=== PATIENT | male | born 1975 | race Caucasian/White ===

== ENCOUNTER 2017-08-11 06:14 | Emergency (ER) | payer SELFPAY ==
[2017-08-11] MEDS ORDERED: NA CHLORIDE 0.9% 1,000 ML ONE (06:54)
[2017-08-11 07:03] LABS: Absolute Lymphocytes (CBC) 2.1 K/uL (0.7-4.9); Absolute Monocytes 0.6 K/uL (0.1-1.3); Absolute Neutrophil 7.7 K/uL (1.8-8.0); Basophils % 1.1 % (0-1.3); Eosinophils % 4.4 % (0-4.4); Lymphocytes % 19.2 % (15.3-44.8); MCH 30.1 pg (27.0-35.0); MCV 91.8 fL (80-100); MPV 9.1 fL (7.6-11.3); Monocytes % 5.7 % (3.3-12.3)
[2017-08-11 07:06] LABS: Bicarbonate 28 mEq/L (21-31); Glucose Level 255 mg/dL (65-120); Lipase 20 U/L (22-51); Potassium 3.2 mEq/L (3.6-5.0); Sodium Level 134 mEq/L (135-145)
[2017-08-11 07:12] LABS: ALT/SGPT 20 IU/L (10-60); AST/SGOT 25 IU/L (10-42); Albumin 3.6 g/dL (3.2-5.5); Alkaline Phosphatase 79 IU/L (42-121); BUN Blood Urea Nitrogen 6 mg/dL (6-20); Bilirubin Direct 0.1 mg/dL (0-0.2); Bilirubin Total 0.4 mg/dL (0.3-1.2); Creatine Phosphokinase 97 IU/L (22-269); Glomerular Filtration Rate 75 mL/min (=/>90); Protein, Total 6.8 g/dL (6.0-8.3)
[2017-08-11 07:13] LABS: Alcohol Serum/Plasma < 10 mg/dl
--- NOTE | 2017-08-11 08:11 | RAD REPORT ---
EXAM DESCRIPTION: CT - Head Brain Wo Cont - 08/11/2017 6:52 am CLINICAL HISTORY: Altered consciousness, seizure. COMPARISON: 05/06/2017 TECHNIQUE: All CT scans are performed using dose optimization technique as appropriate and may inclu de automated exposure control or mA/KV adjustment according to patient size. FINDINGS: No intracranial hemorrhage, hydrocephalus or extra-axial fluid collection.No areas of brai n edema or evidence of midline shift. Opacification right maxillary antrum is seen. The paranasal sinuses and mastoids are otherwise clear. The calvarium is intact. IMPRESSION: No acute intracranial abnormality. Chronic right maxillary sinusitis suspected.
[2017-08-11 08:31] LABS: Protime INR 1.08
--- NOTE | 2017-08-11 08:39 | EDPHYS ---
Physician Documentation [facility] Name: Surjit Stubbs Age: 42 yrs Sex: Male : 1975 Arrival Date: 08/11/2017 Time: 06:16 Bed 3 Private MD: ED Physician Jame Vaughan HPI: 08/11 07:25 This 42 yrs old Male presents to ER via EMS with complaints of Low Blood zarina Sugar, Altered Mental Status. 07:25 The patient or guardian reports hypoglycemia. Onset: The symptoms/episode zarina began/occurred just prior to arrival. Associated signs and symptoms: Pertinent positives: None. Current symptoms: In the emergency department the patient's symptoms are unchanged from the initial presentation. The patient has not experienced similar symptoms in the past. Historical: - Allergies: 06:28 No Known Allergies; tl2 - Home Meds: 06:28 [place] Thyroid 60 mg Oral tab [Active]; gemfibrozil 600 mg Oral tab 1 tab 2 times per tl2 day [Active]; Glucagon Emergency Kit (human) 1 mg IM kit 1 mL [Active]; Multiple Vitamins Oral tab [Active]; Novolog Sub-Q [Active]; - PMHx: 06:28 Diabetes - NIDDM; Hypothyroidism; tl2 - Immunization history:: Adult Immunizations up to date. - Social history:: Smoking status: Patient uses tobacco products, smokes one pack cigarettes per day. ROS: 07:26 Constitutional: Negative for fever, chills, and weight loss, Eyes: Negative for injury, zarina pain, redness, and discharge, ENT: Negative for injury, pain, and discharge, Neck: Negative for injury, pain, and swelling, Cardiovascular: Negative for chest pain, palpitations, and edema, Respiratory: Negative for shortness of breath, cough, wheezing, and pleuritic chest pain, Abdomen/GI: Negative for abdominal pain, nausea, vomiting, diarrhea, and constipation, Back: Negative for injury and pain, : Negative for injury, bleeding, discharge, and swelling, MS/Extremity: Negative for injury and deformity, Skin: Negative for injury, rash, and discoloration, Psych: Negative for depression, anxiety, suicide ideation, homicidal ideation, and hallucinations, Allergy/Immunology: Negative for hives, rash, and allergies, Endocrine: Negative for neck swelling, polydipsia, polyuria, polyphagia, and marked weight changes, Hematologic/Lymphatic: Negative for swollen nodes, abnormal bleeding, and unusual bruising. 07:26 Neuro: Positive for altered mental status, weakness. Exam: 07:26 Constitutional: This is a well developed, well nourished patient who is awake, alert, zarina and in no acute distress. Head/Face: Normocephalic, atraumatic. Eyes: Pupils equal round and reactive to light, extra-ocular motions intact. Lids and lashes normal. Conjunctiva and sclera are non-icteric and not injected. Cornea within normal limits. Periorbital areas with no swelling, redness, or edema. ENT: Nares patent. No nasal discharge, no septal abnormalities noted. Tympanic membranes are normal and external auditory canals are clear. Oropharynx with no redness, swelling, or masses, exudates, or evidence of obstruction, uvula midline. Mucous membranes moist. Neck: Trachea midline, no thyromegaly or masses palpated, and no cervical lymphadenopathy. Supple, full range of motion without nuchal rigidity, or vertebral point tenderness. No Meningismus. Chest/axilla: Normal chest wall appearance and motion. Nontender with no deformity. No lesions are appreciated. Cardiovascular: Regular rate and rhythm with a normal S1 and S2. No gallops, murmurs, or rubs. Normal PMI, no JVD. No pulse deficits. Respiratory: Lungs have equal breath sounds bilaterally, clear to auscultation and percussion. No rales, rhonchi or wheezes noted. No increased work of breathing, no retractions or nasal flaring. Abdomen/GI: Soft, non-tender, with normal bowel sounds. No distension or tympany. No guarding or rebound. No evidence of tenderness throughout. Back: No spinal tenderness. No costovertebral tenderness. Full range of motion. Male : Normal genitalia with no discharge or lesions. Skin: Warm, dry with normal turgor. Normal color with no rashes, no lesions, and no evidence of cellulitis. MS/ Extremity: Pulses equal, no cyanosis. Neurovascular intact. Full, normal range of motion. Psych: Awake, alert, with orientation to person, place and time. Behavior, mood, and affect are within normal limits. 07:26 Neuro: Orientation: to person, place, situation, Not oriented to time. Vital Signs: 06:28 BP 136 / 96; Pulse 102; Resp 18; Temp 98.2(O); Pulse Ox 97% on R/A; Weight 63.5 kg; tl2 Height 5 ft. 9 in. (175.26 cm); Pain 0/10; 07:15 BP 128 / 96; Pulse 101; Resp 20; Pulse Ox 99% on R/A; ph 08:18 BP 133 / 94; Pulse 98; Resp 18; Pulse Ox 98% on R/A; ph 09:24 BP 132 / 91; Pulse 91; Resp 18; Temp 98.2; Pulse Ox 99% on R/A; ph 06:28 Body Mass Index 20.67 (63.50 kg, 175.26 cm) tl2 MDM: 06:34 Patient medically screened. 07:25 Patient medically screened. [facility] 07:27 Data reviewed: vital signs, nurses notes, lab test result(s), EKG, radiologic studies, [facility] CT scan, plain films. 04 06:29 Order name: Basic Metabolic Panel; Complete Time: 07:29 08/11 06:29 Order name: BNP 04 06:29 Order name: CBC with Diff; Complete Time: 07:29 08/11 06:29 Order name: CPK; Complete Time: 07:29 08/11 06:29 Order name: Lactate; Complete Time: 07:29 04 06:29 Order name: LFT's; Complete Time: 07:29 08/11 06:29 Order name: Lipase; Complete Time: 07:29 08/11 06:29 Order name: Procalcitonin; Complete Time: 08:38 08/11 06:29 Order name: Protime (+inr); Complete Time: 08:38 08/11 06:29 Order name: Sed Rate; Complete Time: 07:29 04 06:29 Order name: Troponin (emerg Dept Use Only); Complete Time: 07:29 08/11 06:29 Order name: AMMONIA; Complete Time: 07:29 04 06:29 Order name: Urine Drug Screen; Complete Time: 15:28 04 06:29 Order name: Chest Single View XRAY; Complete Time: 15:28 04 06:29 Order name: Accucheck; Complete Time: 06:33 08/11 06:29 Order name: Cardiac monitoring; Complete Time: 06:33 gs 04 06:29 Order name: EKG - Nurse/Tech; Complete Time: 07:05 gs 08/11 06:29 Order name: IV Saline Lock - Large Bore; Complete Time: 06:33 gs 04 06:29 Order name: Labs collected and sent; Complete Time: 06:33 gs 08/11 06:29 Order name: O2 Per Protocol; Complete Time: 06:33 gs 08/11 06:29 Order name: CT Head Brain wo Cont; Complete Time: 08:38 gs 08/11 06:29 Order name: Ethanol; Complete Time: 07:29 gs 08/11 06:30 Order name: BNP B-Type Natriuretic Peptide; Complete Time: 08:38 EDMS 08/11 07:24 Order name: Diet Regular; Complete Time: 07:25 ph 08/11 07:41 Order name: EKG Electrocardiogram; Complete Time: 09:27 EDMS 06 10:03 Order name: Urine Dipstick--Ancillary (enter results); Complete Time: 15:28 ag 0406 06:29 Order name: O2 Sat Monitoring; Complete Time: 06:34 gs 04 06:29 Order name: Urine Dipstick-Ancillary (obtain specimen); Complete Time: 09:26 gs Administered Medications: 06:57 Drug: NS 0.9% 1000 ml Route: IV; Rate: 1 bolus; Site: left antecubital; tl2 09:26 Follow up: Response: No adverse reaction; IV Status: Completed infusion ph 08:30 Drug: Potassium Chloride 40 mEq Route: PO; ph 09:26 Follow up: Response: No adverse reaction ph Point of Care Testing: Blood Glucose: 06:28 Blood Glucose: 245 mg/dL; tl2 08:41 Blood Glucose: 151 mg/dL; ph Ranges: Critical Glucose Levels:Adult <50 mg/dl or >400 mg/dl <40 mg/dl or >180 mg/dl Disposition: 08/11/17 08:38 Discharged to Home. Impression: Hypoglycemia, unspecified, Type 1 diabetes mellitus, Hypokalemia, Acute sinusitis. - Condition is Stable. - Discharge Instructions: Type 1 Diabetes Mellitus, Adult, Potassium Content of Foods, Hypoglycemia, Diabetes Mellitus and Food, Hypoglycemia, [id number], Hypokalemia. - Medication Reconciliation Form, Thank You Letter, Antibiotic Education, Prescription Opioid Use form. - Follow up: Private Physician; When: 2 - 3 days; Reason: Recheck today's complaints, Continuance of care, Re-evaluation by your physician. - Problem is new. - Symptoms have improved. Signatures: Dispatcher [employer] EDJame Patel MD MD cha Hall, Patricia, RN RN Malissa Bates RN RN Shari Spencer RN RN tl2 Ashutosh Aj MD MD
--- NOTE | 2017-08-11 08:39 | ER ---
Nurse's Notes [facility] Name: Surjit Stubbs Age: 42 yrs Sex: Male : 1975 Arrival Date: 08/11/2017 Time: 06:16 Bed 3 Private MD: Diagnosis: Hypoglycemia, unspecified;Type 1 diabetes mellitus;Hypokalemia;Acute sinusitis Presentation: 08/11 06:19 Presenting complaint: EMS states: Pt was found face down, unresponsive, with emesis on tl2 floor and in pt's mouth. Possible aspiration. BGL on arrival was 36, D10 was given and pt began to wake up and become combative. 15 second seizure like episode witnessed when pt began to wake up. 650 mL of D10 total given, BGL increased to 436. Pt was more cooperative upon arrival to ED. AOx3 but could not recall what happened. Pt was last seen normal at 2300 last night when he had taken 16 units of levemir. Transition of care: patient was not received from another setting of care. Onset of symptoms was August 10, 2017 at 23:00. 06:19 Method Of Arrival: EMS: [facility] tl2 06:19 Acuity: TOI 2 tl2 06:19 Care prior to arrival: Medication(s) given: D10 650 mL. tl2 Triage Assessment: 06:28 General: Appears in no apparent distress. uncomfortable, unkempt, Behavior is drowsy. tl2 Pain: Denies pain. Neuro: Level of Consciousness is awake, confused, Oriented to person, place, time, Speech is normal, Seizure activity reported prior to arrival. Type of seizure: tonic-clonic seizure. Cardiovascular: Denies chest pain, Rhythm is sinus rhythm. Respiratory: Airway is patent Respiratory effort is even, unlabored, Respiratory pattern is regular, symmetrical, Breath sounds are clear bilaterally. GI: Reports vomiting. : No signs and/or symptoms were reported regarding the genitourinary system. Derm: Skin is pink, warm \\T\\ dry. Historical: - Allergies: 06:28 No Known Allergies; tl2 - Home Meds: 06:28 [place] Thyroid 60 mg Oral tab [Active]; gemfibrozil 600 mg Oral tab 1 tab 2 times per tl2 day [Active]; Glucagon Emergency Kit (human) 1 mg IM kit 1 mL [Active]; Multiple Vitamins Oral tab [Active]; Novolog Sub-Q [Active]; - PMHx: 06:28 Diabetes - NIDDM; Hypothyroidism; tl2 - Immunization history:: Adult Immunizations up to date. - Social history:: Smoking status: Patient uses tobacco products, smokes one pack cigarettes per day. Screenin:32 Abuse screen: Denies threats or abuse. Nutritional screening: No deficits noted. tl2 Tuberculosis screening: No symptoms or risk factors identified. Fall Risk Fall in past 12 months (25 points). Secondary diagnosis (15 points) IV access (20 points). Assessment: 06:10 General: Appears uncomfortable, Behavior is cooperative, appropriate for age, anxious. jd3 Pain: Denies pain. Neuro: Level of Consciousness is awake, alert, obeys commands, Oriented to person, place. Cardiovascular: Heart tones S1 S2 present Capillary refill < 3 seconds Patient's skin is warm and dry. Respiratory: Airway is patent Respiratory effort is even, unlabored, Respiratory pattern is regular, symmetrical, Breath sounds are clear bilaterally. GI: Abdomen is round Bowel sounds present X 4 quads. Abd is soft and non tender X 4 quads. Reports nausea. : No signs and/or symptoms were reported regarding the genitourinary system. EENT: No signs and/or symptoms were reported regarding the EENT system. Derm: Skin is intact, Skin is diaphoretic, Skin is normal, Skin temperature is. Musculoskeletal: Circulation, motion, and sensation intact. Range of motion: intact in all extremities. 07:15 Reassessment: Patient appears in no apparent distress at this time. Patient and/or ph family updated on plan of care and expected duration. Pain level reassessed. Pt asleep, respirations even and unlabored, awakens easily, VSS, will continue to monitor. 08:16 Reassessment: Patient appears in no apparent distress at this time. Patient and/or ph family updated on plan of care and expected duration. Pain level reassessed. Patient is alert, oriented x 3, equal unlabored respirations, skin warm/dry/pink. Pt resting quietly at this time, denies pain, nausea, or SOB, states, " I just feel really sleepy. I remember that I was brought in because my sugar was really low." Awaiting breakfast tray from cafeteria, VSS, will continue to monitor. 09:15 Reassessment: Patient appears in no apparent distress at this time. No changes from ph previously documented assessment. Patient and/or family updated on plan of care and expected duration. Pain level reassessed. Patient is alert, oriented x 3, equal unlabored respirations, skin warm/dry/pink. Spoke with pt's father who is en route to pick pt up after discharge. Vital Signs: 06:28 BP 136 / 96; Pulse 102; Resp 18; Temp 98.2(O); Pulse Ox 97% on R/A; Weight 63.5 kg; tl2 Height 5 ft. 9 in. (175.26 cm); Pain 0/10; 07:15 BP 128 / 96; Pulse 101; Resp 20; Pulse Ox 99% on R/A; ph 08:18 BP 133 / 94; Pulse 98; Resp 18; Pulse Ox 98% on R/A; ph 09:24 BP 132 / 91; Pulse 91; Resp 18; Temp 98.2; Pulse Ox 99% on R/A; ph 06:28 Body Mass Index 20.67 (63.50 kg, 175.26 cm) tl2 ED Course: 06:16 Patient arrived in ED. jd3 06:25 Triage completed. tl2 06:28 Arm band placed on right wrist. tl2 06:32 Patient has correct armband on for positive identification. Placed in gown. Bed in low tl2 position. Call light in reach. Side rails up X2. Seizure precautions initiated. 06:32 Maintain EMS IV. Dressing intact. Good blood return noted. Site clean \\T\\ dry. Gauge \\T\\ tl 2 site: 18 g L AC. 06:34 Ashutosh Aj MD is Attending Physician. gs 06:43 Initial lab(s) drawn, by me, sent to lab. cb2 06:44 X-ray completed. Portable x-ray completed in exam room. Patient tolerated procedure jb2 well. 06:49 Chest Single View XRAY In Process Unspecified. EDMS 06:53 CT Head Brain wo Cont In Process Unspecified. EDMS 07:07 EKG done, by ED staff, reviewed by Ashutosh Aj MD. Inserted saline lock: 20 gauge in jd3 right forearm, using aseptic technique. Blood collected. placed by signal maintenance technician. 07:16 Report given to DARIEN NAVARRO. jd3 07:20 Attending Physician role handed off by Ashutosh Aj MD zarina 07:20 Jame Vaughan MD is Attending Physician. zarina 07:25 Meghna Oneil, RN is Primary Nurse. ph 08:19 No provider procedures requiring assistance completed. ph Administered Medications: 06:57 Drug: NS 0.9% 1000 ml Route: IV; Rate: 1 bolus; Site: left antecubital; tl2 09:26 Follow up: Response: No adverse reaction; IV Status: Completed infusion ph 08:30 Drug: Potassium Chloride 40 mEq Route: PO; ph 09:26 Follow up: Response: No adverse reaction ph Point of Care Testing: Blood Glucose: 06:28 Blood Glucose: 245 mg/dL; tl2 08:41 Blood Glucose: 151 mg/dL; ph Ranges: Output: 08:42 Urine: 500ml (Voided); Total: 500ml. ph Outcome: 08:38 Discharge ordered by . zarina 09:54 Patient left the ED. hb 10:03 Patient left the ED. ph Signatures: Dispatcher [employer] EDMS Jame Vaughan MD MD cha Buechter, Jesse 2 Meghna Oneil, MELANIE RN Malissa Bates RN RN Shari Spencer RN RN tl2 Terry Howard [facility] Ashutosh Aj MD MD John Navarro RN RN jd3 Corrections: (The following items were deleted from the chart) 06:26 06:19 Care prior to arrival: Medication(s) given: D50, 1 amp, D10 650 mL IV initiated. tl2 18 GA, in the left antecubital area, Glucose check: 436 tl2 07:15 07:08 General: Appears uncomfortable, Behavior is cooperative, appropriate for age, jd3 anxious, jd3 07:15 07:08 Pain: Denies pain. jd3 jd3 07:15 07:08 Neuro: Level of Consciousness is awake, alert, obeys commands, Oriented to jd3 person, place, jd3 07:15 07:08 Cardiovascular: Heart tones S1 S2 present Capillary refill < 3 seconds Patient's jd3 skin is warm and dry. jd3 07:15 07:08 Respiratory: Airway is patent Respiratory effort is even, unlabored, Respiratory jd3 pattern is regular, symmetrical, Breath sounds are clear bilaterally. jd3 07:15 07:08 GI: Abdomen is round Bowel sounds present X 4 quads. Abd is soft and non tender X jd3 4 quads. Reports nausea, jd3 : 07:08 : No signs and/or symptoms were reported regarding the genitourinary system. jd3jd3 : 07:08 EENT: No signs and/or symptoms were reported regarding the EENT system. jd3 jd3 07:08 Derm: Skin is intact, Skin is diaphoretic, Skin is normal, Skin temperature is jd3jd3 : 07:08 Musculoskeletal: Circulation, motion, and sensation intact. Range of motion: jd3 intact in all extremities, jd3
[2017-08-11 08:58] LABS: Barbiturates NEGATIVE; Benzodiazepines NEGATIVE; Cocaine NEGATIVE; METHAMPHETAM NEGATIVE; Opiates NEGATIVE; Phencyclidine NEGATIVE; THC Cannibis NEGATIVE
--- NOTE | 2017-08-11 09:07 | RAD REPORT ---
EXAM DESCRIPTION: RAD - Chest Single View - 08/11/2017 6:49 am CLINICAL HISTORY: Chest pain, diabetes. COMPARISON: 05/06/2017 FINDINGS: Portable technique limits examination quality. The lungs are grossly clear. The heart is normal in size. No displaced fractures. IMPRESSION: No acute intrathoracic process suspected.
--- NOTE | 2017-08-11 09:18 | EKG ---
Test Date: 2017-08-11 Test Time: 06:58:43 Healthcare Financial Analyst: ASIF MEASUREMENT RESULTS: Intervals: Rate: 95 TN: 156 QRSD: 72 QT: 358 QTc: 449 Hamel: P: 46 TN: 156 QRS: 59 T: 62 INTERPRETIVE STATEMENTS: Normal sinus rhythm Possible Left atrial enlargement Borderline ECG Compared to ECG 03/02/2000 21:58:00 No significant changes Electronically Signed On 08-11-17 09:17:46 CDT by Jose Hanna
[2017-08-11 10:01] VITALS: TEMP 98.2
[2017-08-11 10:05] VITALS: BP 132/91; O2SAT 99
[2017-08-11 10:28] LABS: Urine Blood NEGATIVE (NEG); Urine Glucose 1+ (NEG); Urine Protein TRACE (NEG); Urine pH 7.5 (5.0-7.0)
== END 2017-08-11 10:03 | disposition home or self-care (01) ==
LOC: ER 06:14
DX: E10.649 Type 1 diabetes mellitus with hypoglycemia without coma (principal); E87.6 Hypokalemia; J01.90 Acute sinusitis, unspecified; E03.9 Hypothyroidism, unspecified; F17.210 Nicotine dependence, cigarettes, uncomplicated
CPT/HCPCS: 36415; 70450; 71045; 80048; 80076; 80307; 80320; 81003; 82140; 82550; 82962; 83605; 83690; 83880; 84145; 84484; 85025; 85610; 85652; 93005; 96360; 96361; 99285; J7030

== ENCOUNTER 2017-11-02 20:34 | Emergency (ER) | payer SELFPAY ==
[2017-11-02] MEDS ORDERED: IBUPROFEN 400 MG TAB ONE (21:49)
--- NOTE | 2017-11-02 22:00 | RAD REPORT ---
EXAM DESCRIPTION: RAD - Ankle Right 3 View - 11/02/2017 9:48 pm CLINICAL HISTORY: PAIN Fall COMPARISON: None FINDINGS: Right foot and right ankle, multiple projections are submitted. Moderate soft tissue swelling is seen about the foot and ankle. No fracture of the ankle is discerned . Mildly displaced transverse fracture involves the base of the first metatarsal. Comminuted fracture of the shaft of the second metatarsal is noted with mild angulation. Comminuted fracture of the dista l shaft and proximal base of the third metatarsal is seen. Transverse fracture is noted involving the base of the fourth metatarsal. Equivocal fracture of the head/neck region of the distal fourth metat arsal. No dislocation.
--- NOTE | 2017-11-02 22:26 | ER ---
Nurse's Notes [facility] Name: Surjit Stubbs Age: 42 yrs Sex: Male : 1975 Arrival Date: 11/02/2017 Time: 20:35 Bed 13 Private MD: LB LEBLANC Diagnosis: Displaced fracture of second metatarsal bone, right foot;Displaced fracture of third metatarsal bone, right foot;Nondisplaced Fractures of first and Fourth Right Metatarsals Presentation: 11/02 21:14 Presenting complaint: Patient states: "I fell yesterday when I was walking to the front lk1 door and my foot (right) started swelling, today I cant even walk on it.". Transition of care: patient was not received from another setting of care. Onset of symptoms was November 01, 2017 at 19:00. Risk Assessment: Do you want to hurt yourself or someone else? Patient reports no desire to harm self or others. Initial Sepsis Screen: Does the patient meet any 2 criteria? No. Patient's initial sepsis screen is negative. Does the patient have a suspected source of infection? No. Patient's initial sepsis screen is negative. Care prior to arrival: None. 21:14 Method Of Arrival: Wheelchair lk1 21:14 Acuity: TOI 4 lk1 Triage Assessment: 22:55 Injury Description: fall injury. bb Historical: - Allergies: 21:16 No Known Allergies; lk1 - PMHx: 21:16 Diabetes - NIDDM; Hypothyroidism; High Cholesterol; lk1 - PSHx: 21:16 None; lk1 - Immunization history:: Adult Immunizations up to date. - Social history:: Smoking status: Patient uses tobacco products, smokes one pack cigarettes per day. - Ebola Screening: : No symptoms or risks identified at this time. Screenin:38 Abuse screen: Denies threats or abuse. Nutritional screening: No deficits noted. bb Tuberculosis screening: No symptoms or risk factors identified. Fall Risk None identified. Assessment: 21:38 General: Appears in no apparent distress. uncomfortable, Behavior is calm, cooperative. bb Pain: Complains of pain in right foot Pain currently is 7 out of 10 on a pain scale. Neuro: Level of Consciousness is awake, alert, obeys commands, Oriented to person, place, time, situation. Cardiovascular: No deficits noted. Respiratory: Respiratory effort is even, unlabored. GI: No signs and/or symptoms were reported involving the gastrointestinal system. : No signs and/or symptoms were reported regarding the genitourinary system. Derm: Bruising that is brown, yellow, Reports pain that is 7 out of 10 on a pain scale. Musculoskeletal: Circulation, motion, and sensation intact. 22:50 Reassessment: Patient is alert, oriented x 3, equal unlabored respirations, skin bb warm/dry/pink. splint to right lower leg in place, cap refill less than 3 seconds to toes, pt verbalized understanding of and agrees to plan of care discharge instructions given, pt assisted to exit via wheelchair accompanied by family. Vital Signs: 21:16 BP 118 / 82; Pulse 95; Resp 16; Temp 97.8(TE); Pulse Ox 96% on R/A; Weight 68.04 kg lk1 (R); Height 5 ft. 9 in. (175.26 cm) (R); Pain 6/10; 22:48 BP 122 / 88; Pulse 86; Resp 18; Pulse Ox 98% on R/A; tl2 21:16 Body Mass Index 22.15 (68.04 kg, 175.26 cm) lk1 ED Course: 20:35 Patient arrived in ED. ds1 20:35 LB LEBLANC is Private Physician. ds1 21:15 Triage completed. lk1 21:16 Arm band placed on right wrist. lk1 21:38 Patient has correct armband on for positive identification. Adult w/ patient. bb 21:40 Jame Oropeza PA is PHCP. cp 21:40 Dale Croft MD is Attending Physician. cp 21:48 Ankle Right 3 View XRAY In Process Unspecified. EDMS 21:48 XRAY Foot RIGHT 3 View In Process Unspecified. EDMS 22:10 Shari Spencer, MELANIE is Primary Nurse. tl2 22:22 Jose Jackson MD is Referral Physician. cp 22:29 Orthoglass splint: Posterior short lleg splint applied on left leg. Applied 4" ks6 Orthoglass. sahrad bandage x2. CMS present after splinting. 22:54 No provider procedures requiring assistance completed. Patient did not have IV access bb during this emergency room visit. Administered Medications: 21:48 Drug: Ibuprofen 800 mg Route: PO; bb 22:50 Follow up: Response: No adverse reaction bb 22:46 Drug: Hydrocodone-Acetaminophen (7.5 mg-325 mg) 1 tabs Route: PO; tl2 22:50 Follow up: Response: Medication administered at discharge. bb Outcome: : Discharge ordered by . cp 22:55 Discharged to home via wheelchair, with crutches, with family. bb 22:55 Condition: stable 22:55 Discharge instructions given to patient, Instructed on discharge instructions, follow up and referral plans. medication usage, crutch walking, Demonstrated understanding of instructions, follow-up care, medications, crutch walking, splint care, Prescriptions given X 2. 22:55 Patient left the ED. bb Signatures: Dispatcher [employer] EDKY Jeanette Mendes ds1 Aida Garner RN RN bb Jame Oropeza PA PA cp Kluge, Leah, RN RN lk1 Shari Spencer RN RN tl2 Srinivasan Reis ks6
--- NOTE | 2017-11-02 22:26 | EDPHYS ---
Physician Documentation [facility] Name: Surjit Stubbs Age: 42 yrs Sex: Male : 1975 Arrival Date: 11/02/2017 Time: 20:35 Bed 13 Private MD: [facility]BL[facility] ED Physician Dale Croft HPI: 11/02 21:45 This 42 yrs old Male presents to ER via Wheelchair with complaints of Foot cp Injury. 21:45 The patient presents with an injury, pain, that is acute. The complaints affect the cp right ankle and right foot. Context: The problem was sustained at home, resulted from the patient tripping, the patient is not able to bear weight, must have assistance, Problem is a result from a previous injury: No. Onset: The symptoms/episode began/occurred yesterday. Associated signs and symptoms: Pertinent positives: swelling, Pertinent negatives calf tenderness, numbness, warmth. Severity of symptoms: in the emergency department the symptoms are unchanged, despite home interventions. Historical: - Allergies: 21:16 No Known Allergies; lk1 - PMHx: 21:16 Diabetes - NIDDM; Hypothyroidism; High Cholesterol; lk1 - PSHx: 21:16 None; lk1 - Immunization history:: Adult Immunizations up to date. - Social history:: Smoking status: Patient uses tobacco products, smokes one pack cigarettes per day. - Ebola Screening: : No symptoms or risks identified at this time. ROS: 21:50 Constitutional: Negative for body aches, chills, fever, poor PO intake. cp 21:50 Eyes: Negative for injury, pain, redness, and discharge. cp 21:50 ENT: Negative for ear pain, sore throat, difficulty swallowing, difficulty handling secretions. 21:50 Cardiovascular: Negative for chest pain. 21:50 Respiratory: Negative for cough, shortness of breath, wheezing. 21:50 Abdomen/GI: Negative for abdominal pain, vomiting, diarrhea, constipation. 21:50 MS/extremity: Positive for injury or acute deformity, pain, swelling, tenderness, of the right foot and right ankle. 21:50 Skin: Negative for cellulitis, rash. 21:50 Neuro: Negative for dizziness, numbness. 21:50 All other systems are negative. Exam: 22:15 Head/Face: Normocephalic, atraumatic. cp 22:15 Constitutional: The patient appears in no acute distress, alert, awake, non-toxic, well developed, well nourished. 22:15 Eyes: Periorbital structures: appear normal, Conjunctiva: normal, no exudate, no cp injection, Lids and lashes: appear normal, bilaterally. 22:15 ENT: External ear(s): are unremarkable, Nose: is normal, Mouth: is normal, Posterior pharynx: is normal, airway is patent. 22:15 Neck: ROM/movement: is normal, is supple, without pain, no range of motions limitations, no nuchal rigidity. 22:15 Chest/axilla: Inspection: normal, Palpation: is normal, no crepitus, no tenderness. 22:15 Cardiovascular: Rate: normal, Rhythm: regular, Pulses: Pulses are 2+ in right dorsalis pedis artery. 22:15 Respiratory: the patient does not display signs of respiratory distress, Respirations: normal, no use of accessory muscles, no retractions, no splinting, no tachypnea, labored breathing, is not present, Breath sounds: are clear throughout, no decreased breath sounds, no stridor, no wheezing. 22:15 Abdomen/GI: Inspection: abdomen appears normal, Palpation: abdomen is soft and non-tender, in all quadrants, rebound tenderness, is not appreciated, voluntary guarding, is not appreciated, involuntary guarding, is not appreciated. 22:15 Back: pain, is absent, ROM is normal. 22:15 Musculoskeletal/extremity: Extremities: grossly normal except: noted in the right foot: decreased ROM, pain, swelling, tenderness, Sensation intact. Joints: All joints are normal except the right ankle displays painful range of motion, swelling, tenderness, Weight bearing: is unable to bear weight. 22:15 Skin: cellulitis, is not appreciated, no rash present. 22:15 Neuro: Orientation: to person, place \T\ time. Mentation: is normal. Vital Signs: 21:16 BP 118 / 82; Pulse 95; Resp 16; Temp 97.8(TE); Pulse Ox 96% on R/A; Weight 68.04 kg lk1 (R); Height 5 ft. 9 in. (175.26 cm) (R); Pain 6/10; 22:48 BP 122 / 88; Pulse 86; Resp 18; Pulse Ox 98% on R/A; tl2 21:16 Body Mass Index 22.15 (68.04 kg, 175.26 cm) lk1 MDM: 21:41 Patient medically screened. cp 22:10 Physician consultation: Jose Jackson MD was called at 22:10, was contacted at 22:10, cp regarding patient's condition, and will see patient in office tomorrow before noon. Patient does not need to call office, but be at office before noon for immediate appointment. 22:25 Data reviewed: vital signs, nurses notes, radiologic studies, plain films, and as a cp result, I will discharge patient. 22:25 Test interpretation: by ED physician or midlevel provider: plain radiologic studies. cp Counseling: I had a detailed discussion with the patient and/or guardian regarding: the historical points, exam findings, and any diagnostic results supporting the discharge/admit diagnosis, radiology results, the need for outpatient follow up, for definitive care, a orthopedic surgeon, to return to the emergency department if symptoms worsen or persist or if there are any questions or concerns that arise at home. Response to treatment: the patient's symptoms have markedly improved after treatment. 11/02 21:18 Order name: Ankle Right 3 View XRAY; Complete Time: 22:07 lk1 11/02 22:08 Interpretation: Report reviewed. 11/02 21:44 Order name: XRAY Foot RIGHT 3 View 11/02 22:10 Order name: Splint: posterior lower leg non-weight bearing; Complete Time: 22:30 cp Administered Medications: 21:48 Drug: Ibuprofen 800 mg Route: PO; 22:50 Follow up: Response: No adverse reaction bb 22:46 Drug: Hydrocodone-Acetaminophen (7.5 mg-325 mg) 1 tabs Route: PO; tl2 22:50 Follow up: Response: Medication administered at discharge. bb Disposition: 11/03 08:06 Co-signature as Attending Physician, Dale Croft MD I agree with the assessment and wa plan of care. Disposition: 11/02/17 22:25 Discharged to Home. Impression: Displaced fracture of second metatarsal bone, right foot, Displaced fracture of third metatarsal bone, right foot, Nondisplaced Fractures of first and Fourth Right Metatarsals. - Condition is Stable. - Discharge Instructions: Metatarsal Fracture, Undisplaced. - Prescriptions for Tylenol- Codeine #3 300-30 mg Oral Tablet - take 2 tablets by ORAL route every 6 hours As needed; 20 tablet. Ibuprofen 800 mg Oral Tablet - take 1 tablet by ORAL route every 8 hours As needed take with food; 30 tablet. - Medication Reconciliation Form, Thank You Letter, Antibiotic Education, Prescription Opioid Use form. - Follow up: Jose Jackson MD; When: Tomorrow; Reason: before noon, go to office for reevaluation. - Problem is new. - Symptoms have improved. Signatures: Dispatcher [employer] EDMS Aida Garner RN RN bb Jame Oropeza PA PA cp Elizabeth Grover RN RN lk1 Shari Spencer RN RN tl2 Dale Croft MD MD wa Corrections: (The following items were deleted from the chart) 11/02 22:55 22:25 11/02/2017 22:25 Discharged to Home. Impression: Displaced fracture of second bb metatarsal bone, right foot; Displaced fracture of third metatarsal bone, right foot; Nondisplaced Fractures of first and Fourth Right Metatarsals. Condition is Stable. Forms are Medication Reconciliation Form, Thank You Letter, Antibiotic Education, Prescription Opioid Use. Follow up: Jose Jackson; When: Tomorrow; Reason: before noon, go to office for reevaluation. Problem is new. Symptoms have improved. cp
[2017-11-02] MEDS ORDERED: HYDROCODONE/APAP 7.5/325 MG TAB ONE (22:45)
[2017-11-02 22:59] VITALS: TEMP 97.8
[2017-11-02 23:00] VITALS: BP 122/88; O2SAT 98
--- NOTE | 2017-11-03 11:15 | RAD REPORT ---
EXAM DESCRIPTION: RAD - Foot Right 3 View - 11/02/2017 9:53 pm CLINICAL HISTORY: PAIN Fall COMPARISON: None FINDINGS: Right foot and right ankle, multiple projections are submitted. Moderate soft tissue swelling is seen about the foot and ankle. No fracture of the ankle is discerned . Mildly displaced transverse fracture involves the base of the first metatarsal. Comminuted fracture o f the shaft of the second metatarsal is noted with mild angulation. Comminuted fracture of the distal shaft and proximal base of the third metatarsal is seen. Transverse fracture is noted involving the base of the fourth metatarsal. Equivocal fracture of the head/neck region of the distal fourth metata rsal. No dislocation.
== END 2017-11-02 22:55 | disposition home or self-care (01) ==
LOC: ER 20:34
PROC: 2W3QX1Z Immobilization of Right Lower Leg using Splint (ICD-10-PCS; principal; 2017-11-02)
DX: S92.321A Displaced fracture of second metatarsal bone, right foot, initial encounter for closed fracture (principal); S92.331A Displaced fracture of third metatarsal bone, right foot, initial encounter for closed fracture; W01.0XXA Fall on same level from slipping, tripping and stumbling without subsequent striking against object, initial encounter; Y93.9 Activity, unspecified; Y92.019 Unspecified place in single-family (private) house as the place of occurrence of the external cause; E11.9 Type 2 diabetes mellitus without complications; E78.00 Pure hypercholesterolemia, unspecified; E03.9 Hypothyroidism, unspecified; F17.210 Nicotine dependence, cigarettes, uncomplicated
CPT/HCPCS: 99284

== ENCOUNTER 2018-02-11 16:31 | Emergency (ER) | payer SELFPAY ==
[2018-02-11 17:21] LABS: Absolute Lymphocytes (CBC) 1.2 K/uL (0.7-4.9); Absolute Monocytes 1.4 K/uL (0.1-1.3); Absolute Neutrophil 18.6 K/uL (1.8-8.0); Basophils % 0.4 % (0-1.3); Eosinophils % 3.8 % (0-4.4); Hematocrit 39.2 % (39.6-49.0); Lymphocytes % 5.6 % (15.3-44.8); MCH 33.2 pg (27.0-35.0); MCV 96.9 fL (80-100); MPV 8.6 fL (7.6-11.3); Monocytes % 6.3 % (3.3-12.3); RBC Red Blood Cell Count 4.05 M/uL (4.33-5.43)
[2018-02-11] MEDS ORDERED: NA CHLORIDE 0.9% 1,000 ML ONE ×2 (17:24→20:30)
[2018-02-11] MEDS ORDERED: ONDANSETRON 4 MG/2 ML VIAL ONE ×2 (17:24→18:38)
--- NOTE | 2018-02-11 17:24 | RAD REPORT ---
EXAM DESCRIPTION: CT - [id number] - 02/11/2018 5:13 pm CLINICAL HISTORY: Trauma, head and neck injury. seizure COMPARISON: No comparisonsNo comparisons TECHNIQUE: Axial 5 mm thick images of the head were obtained. Axial 2 mm thick images of the cervical spine were obtained with sagittal and coronal reconstruction images generated and reviewed. All CT scans are performed using dose optimization technique as appropriate and may include automated exposure control or mA/KV adjustment according to patient size. FINDINGS: CT HEAD WITHOUT CONTRAST: No acute hemorrhage, hydrocephalus or extra-axial collection is identified.No areas of brain edema or midline shift. Fluid is present in the maxillary antra, greater on the right.The calvarium is intact. CT CERVICAL SPINE WITHOUT CONTRAST: No fracture or subluxation.Partial bony fusion C7-T1 noted.No prevertebral soft tissues swelling is i dentified. IMPRESSION: No acute intracranial or cervical spine findings. Sinusitis is present, greatest in the right maxillary antrum.
[2018-02-11 17:26] LABS: Protime INR 0.97
[2018-02-11 17:33] LABS: Arterial Blood Carboxyhemoglob 8.7 % (0-1.5); Blood Gas Oxyhemoglobin 87.8 % (94-97); Blood O2 Saturation 97.5 % (92-98.5)
[2018-02-11 17:36] LABS: ALT/SGPT 22 U/L (12-78); AST/SGOT 15 U/L (15-37); Albumin 3.3 g/dL (3.4-5.0); Alkaline Phosphatase 85 U/L (45-117); BUN Blood Urea Nitrogen 7 mg/dL (7-18); Bicarbonate 29 mmol/L (21-32); Bilirubin Direct < 0.1 mg/dL (0-0.2); Bilirubin Total 0.3 mg/dL (0.2-1.0); Glucose Level 324 mg/dL (74-106); Potassium 4.4 mmol/L (3.5-5.1); Protein, Total 6.7 g/dL (6.4-8.2); Sodium Level 137 mmol/L (136-145); T3 Free 2.37 pg/mL (2.18-3.98); Troponin I < 0.02 ng/mL (0.0-0.045)
[2018-02-11] MEDS ORDERED: NALOXONE HCL 2 MG/2 ML VIAL ONE ×10 (17:43→20:28)
[2018-02-11] MEDS ORDERED: LORazepam 2 MG/ML VIAL ONE (17:51)
[2018-02-11 17:58] LABS: Barbiturates NEGATIVE (NEGATIVE); Benzodiazepines NEGATIVE (NEGATIVE); Cocaine NEGATIVE (NEGATIVE); METHAMPHETAM NEGATIVE (NEGATIVE); Methadone NEGATIVE (NEGATIVE); Opiates NEGATIVE (NEGATIVE); Phencyclidine NEGATIVE (NEGATIVE); THC Cannibis NEGATIVE (NEGATIVE)
[2018-02-11] MEDS ORDERED: levETIRAcetam 1,000 MG in NA CHLORIDE 0.9% 100 ML IV ONE (18:15)
[2018-02-11 18:18] LABS: Urine Blood NEGATIVE (NEG); Urine Glucose 2+ (NEG); Urine Protein NEGATIVE (NEG); Urine Specific Gravity 1.015 (1.005-1.030)
--- NOTE | 2018-02-11 18:36 | ER ---
Nurse's Notes [facility] Name: Surjit Stubbs Age: 43 yrs Sex: Male : 1975 Arrival Date: 02/11/2018 Time: 16:36 Bed 4 Private MD: Diagnosis: Opioid abuse with intoxication;Epilepsy and recurrent seizures Presentation: 02/11 16:40 Presenting complaint: Father states: The dad noticed the patient in bed and he didn't aj1 seem right, the father assumed that his blood sugar must be low so he gave him glucagon. The patient started talking a bit, but then he fell over and started having a seizure. Reports this seizure lasted approximately 2 minutes. The father states that the patient has had seizures before, but they found out it was due to a medication he was taking, so they discontinued that medication and he hasn't had a seizure since. Reports it has been approximately 5-6 years since the patient's last seizure. Patient appears drowsy, responds to tactile stimulation, but it able to tell me his name and that he is currently in the hospital. Patient also reports lower abdominal pain. Abdomen appears rounds and distended. EMS reports that patient was cyanotic, with snoring respirations upon their arrival, O2 sat was 90% on room air. Airway was opened up and patient was placed on O2 \T\ 2L per nc. O2 sat is presently 100%. Transition of care: patient was not received from another setting of care. Onset of symptoms was February 11, 2018. Risk Assessment: Do you want to hurt yourself or someone else? Patient reports no desire to harm self or others. Initial Sepsis Screen: Does the patient meet any 2 criteria? No. Patient's initial sepsis screen is negative. Does the patient have a suspected source of infection? No. Patient's initial sepsis screen is negative. Care prior to arrival: IV initiated. 20 GA, in the right antecubital area, Glucose check: 304 Oxygen administered. 16:40 Method Of Arrival: EMS: [facility] aj1 16:40 Acuity: TOI 2 aj1 Triage Assessment: 17:07 General: Appears unkempt, Behavior is drowsy. Pain: Complains of pain in right lower aj1 quadrant and left lower quadrant. Neuro: Level of Consciousness is post ictal, Oriented to person, place, Speech is slurred, Patient does not follow commands to air quality instrument specialist hands or raise legs. Patient will answer short questions if awakened by tactile stimuli before asking. Seizure activity reported prior to arrival. Seizure lasted approximately 2 minutes. Patient is post-ictal at this time. Cardiovascular: Heart tones S1 S2 present Patient's skin is warm and dry. Respiratory: Airway is patent Respiratory effort is even, unlabored, Respiratory pattern is regular, symmetrical. GI: Abdomen is round distended, Bowel sounds present X 4 quads. Historical: - Allergies: 17:07 No Known Allergies; aj1 - Home Meds: 17:07 Buhl Thyroid 60 mg Oral tab [Active]; gemfibrozil 600 mg Oral tab 1 tab 2 times per aj1 day [Active]; Glucagon Emergency Kit (human) 1 mg IM kit 1 mL [Active]; Multiple Vitamins Oral tab [Active]; Novolog Sub-Q [Active]; - PMHx: 17:07 Diabetes - NIDDM; High Cholesterol; Hypothyroidism; aj1 - Immunization history:: Adult Immunizations unknown. - Social history:: Smoking status: Patient uses tobacco products. - Ebola Screening: : Patient denies travel to an Ebola-affected area in the 21 days before illness onset. Screenin:40 Abuse screen: Denies threats or abuse. Nutritional screening: No deficits noted. aj1 Tuberculosis screening: No symptoms or risk factors identified. Assessment: 16:40 Reassessment: see triage assessment. aj1 17:12 Reassessment: Patient transported to CT via stretcher. aj1 17:30 Reassessment: Patient returned to room from CT, patient is not responding to verbal or aj1 tactile stimuli. Some response noted to pain. Respiratory rate is 9. Notified LISA Alexander of change in patient condition. 17:34 Reassessment: LISA Alexander at bedside to evaluate patient. FSBS 409. Patient was aj1 suctioned to assist with removal of oral secretions. 17:40 Reassessment: Dr. Garcia at bedside to evaluate patient. Narcan 2mg IV given. Patient aj1 is drowsy, but responding to tactile stimuli. Patient transferred to bed 4. Patient had seizure activity while being moved lasting approximately 30 seconds. 18:00 Reassessment: Patient given an additional 4 mg of Narcan IV. Patient is now alert and aj1 respiratory rate is 20 breaths per minute. EKG performed at bedside. 18:40 Reassessment: Reassessment: Patient and/or family updated on plan of care and expected ph duration. Pain level reassessed. Pt asleep, unresponsive to verbal stimuli, minimally responsive to painful stimuli, ERP aware, additional Narcan given. 19:15 General: Appears in no apparent distress. Behavior is drowsy. Pain: Unable to use pain ea scale. FLACC scale score is 0 out of 10. Neuro: responds to painful stimuli. Cardiovascular: Heart tones S1 S2 present Patient's skin is warm and dry. Respiratory: Airway is patent Respiratory effort is even, unlabored, Respiratory pattern is regular, symmetrical. GI: Bowel sounds present X 4 quads. : Delcid in place to gravity drainage. Derm: Skin is pale. 20:07 Reassessment: Report called to Lokesh NAVARRO at [facility]. ea 20:15 Reassessment: Patient and/or family updated on plan of care and expected duration. Pain ea level reassessed. Respirations even and unlabored, chest expansions even and symmetrical. No s/s of pain or discomfort noted at this time. Pt awakens to painful stimuli. Awaiting on transportation. 20:39 Reassessment: Patient and/or family updated on plan of care and expected duration. Pain ea level reassessed. EMS at facility for transport, report given to EMT. Pt alert to verbal stimuli at this time. Pt taken via stretcher, tolerated well, pt is still drowsy and answers simple yes or no questions and is able to follow some commands. Respirations even and unlabored, chest expansions even and symmetrical. No s/s of pain or discomfort noted at this time. Vital Signs: 16:40 BP 150 / 102; Pulse 90; Resp 18; Temp 98.2; Pulse Ox 99% on NC; aj1 18:00 BP 128 / 87; Pulse 84; Resp 12; Pulse Ox 100% on NC; ph 19:18 BP 116 / 75; Pulse 85; Resp 14; Pulse Ox 100% ; ea 20:10 BP 109 / 77; Pulse 74; Resp 12; Pulse Ox 100% ; ea 20:15 Temp 98.0(A); ea ED Course: 16:36 Patient arrived in ED. cp 16:36 Jame Oropeza PA is PHCP. cp 16:36 Bk Garcia MD is Attending Physician. cp 16:40 Arm band placed on. aj1 16:40 Patient has correct armband on for positive identification. Bed in low position. Call aj1 light in reach. Side rails up X2. Seizure precautions initiated. Patient's father is at bedside. court recording monitor on. Pulse ox on. NIBP on. 16:40 Maintain EMS IV. Dressing intact. Good blood return noted. Site clean \T\ dry. Gauge \T\ aj 1 site: 20 g to right AC. 16:59 Sameera Haines, RN is Primary Nurse. aj1 17:07 Triage completed. aj1 17:10 CT completed. Patient tolerated procedure well. Patient moved back from CT. bq 17:12 CT Head C Spine In Process Unspecified. EDMS 17:12 No provider procedures requiring assistance completed. aj1 17:33 Notified Nurse Practitioner and/or Physician Lock Operator of a critical lab result(s), WBC hb 22.2. 18:00 Report given to Bety Oneil RN. aj1 18:02 Inserted saline lock: 20 gauge in left antecubital area, using aseptic technique. hb forearm, using aseptic technique. 18:02 EKG done, by ED staff, reviewed by Bk Garcia MD. 3 18:22 XRAY Chest (1 view) In Process Unspecified. EDMS 18:32 Received Admin Approval for transfer to [facility]. cc 18:47 Received bed assignment 7 South 5 Bed 15. Transfer center requests report not to be cc called until after 1930 due to current staffing levels. 20:37 Patient transferred, IV remains in place. ea Administered Medications: 17:35 Drug: NS 0.9% 1000 ml Route: IV; Rate: 1 bolus; Site: left antecubital; hb 19:00 Follow up: Response: No adverse reaction; IV Status: Completed infusion ea 17:40 Drug: NARcan 1 mg Route: IVP; Site: left forearm; hb 17:42 Drug: NARcan 1 mg Route: IVP; Site: left antecubital; hb 17:46 Drug: NARcan 2 mg Route: IVP; Site: left antecubital; hb 19:41 Follow up: Response: No adverse reaction ph 18:03 Drug: Zofran 4 mg Route: IVP; Site: left antecubital; hb 19:00 Follow up: Response: No adverse reaction ea 18:30 Drug: Keppra 1000 mg Route: IV; Rate: calculated rate; Site: left antecubital; ph 19:40 Follow up: Response: No adverse reaction; IV Status: Completed infusion ph 18:40 Drug: NARcan 2 mg Route: IVP; Site: left antecubital; ph 19:40 Follow up: Response: No adverse reaction ph 18:41 Drug: NARcan 2 mg Route: IVP; Site: left antecubital; ph 19:40 Follow up: Response: No adverse reaction ph 18:50 Drug: Insulin Regular Human 5 units {Co-Signature: lemuel Arechiga RN).} Route: ph IVP; Site: left antecubital; 19:40 Follow up: Response: No adverse reaction ph 18:50 Drug: NARcan 2 mg Route: IVP; Site: left antecubital; ph 19:41 Follow up: Response: No adverse reaction ph 18:54 Drug: NARcan 10 mg Route: IVP; Rate: 8 mg/hr; Site: left antecubital; ph 19:00 Follow up: Response: No adverse reaction ea 18:55 Drug: NARcan 2 mg Route: IVP; Site: left antecubital; ph 19:41 Follow up: Response: No adverse reaction ph 19:05 Drug: NARcan 2 mg Route: IVP; Site: left wrist; ea 20:35 Follow up: Response: No adverse reaction ea 19:35 CANCELLED (Inappropriate at this time): Versed 2 mg IVP once ea 19:49 Drug: NARcan 2 mg Route: IVP; Site: left forearm; ea 20:35 Follow up: Response: No adverse reaction ea 20:35 Drug: NS 0.9% 1000 ml Route: IV; Rate: 125 ml/hr; Site: left antecubital; ea 20:36 Follow up: IV Status: Infusion continued upon transfer ea Point of Care Testing: Blood Glucose: 16:37 Blood Glucose: 306 mg/dL; em 20:15 Blood Glucose: 177 mg/dL; ea Ranges: Outcome: 18:35 ER care complete, transfer ordered by . cp 20:37 Transferred by ground EMS to [facility], Transfer form completed. ea 20:37 Condition: stable 20:44 Patient left the ED. ea Signatures: Dispatcher [employer] Sameera Condon RN RN aj1 Nayla Bower Edgar, GRAPHIC TECHNICIAN GRAPHIC TECHNICIAN em Linda Stewart cc Meghna Oneil RN RN ph Jame Oropeza PA PA cp Baxter, Heather, RN RN Maria Fernanda Thapa [facility] Demetrice Bower, MELANIE Arechiga RN sv Corrections: (The following items were deleted from the chart) 18:19 17:12 Reassessment: see triage assessment [place] [id number] 18:20 17:12 Patient has correct armband on for positive identification. Bed in low position. aj1 Call light in reach. Side rails up X2. Seizure precautions initiated. Patient's father is at bedside [facility] 18:20 17:12 court recording monitor on. Pulse ox on. NIBP on. [place] [id number] 18:20 17:12 Abuse screen: Denies threats or abuse. [place] [id number] 18:20 17:12 Nutritional screening: No deficits noted. [place] [id number] 18:20 17:12 Tuberculosis screening: No symptoms or risk factors identified. [place] [id number] 18:21 17:12 Maintain EMS IV. Dressing intact. Good blood return noted. Site clean \T\ dry. aj1 Gauge \T\ site: 20 g to right AC. aj 19:07 19:00 Received bed assignment 7 South 5 Bed 15 cc cc 19:34 19:05 Versed 2 mg IVP in left forearm ea 19:39 18:40 Reassessment: ph ph
--- NOTE | 2018-02-11 18:36 | EDPHYS ---
Physician Documentation [facility] Name: Surjit Stubbs Age: 43 yrs Sex: Male : 1975 Arrival Date: 02/11/2018 Time: 16:36 Bed 4 Private MD: ED Physician Bk Garcia HPI: 02/11 16:38 This 43 yrs old Male presents to ER via Unassigned with complaints of seizure.cp 16:38 The patient presents after having a single isolated seizure, that lasted an unknown cp period of time, the episode(s) was witnessed, by family, father. Character of seizure(s): Loss of consciousness: the patient experienced loss of consciousness. Seizure onset: just prior to arrival. Seizure Hx: Original onset: unknown, Seizure medications: none. Associated injury: The patient did not suffer any apparent associated injury. 16:38 Current symptoms: confusion, decreased level of consciousness, is arousable but tired. cp Historical: - Allergies: 17:07 No Known Allergies; aj1 - Home Meds: 17:07 Dougherty Thyroid 60 mg Oral tab [Active]; gemfibrozil 600 mg Oral tab 1 tab 2 times per aj1 day [Active]; Glucagon Emergency Kit (human) 1 mg IM kit 1 mL [Active]; Multiple Vitamins Oral tab [Active]; Novolog Sub-Q [Active]; - PMHx: 17:07 Diabetes - NIDDM; High Cholesterol; Hypothyroidism; aj1 - Immunization history:: Adult Immunizations unknown. - Social history:: Smoking status: Patient uses tobacco products. - Ebola Screening: : Patient denies travel to an Ebola-affected area in the 21 days before illness onset. ROS: 16:45 Constitutional: Negative for fever. cp 16:45 Neuro: Positive for altered mental status. cp 16:45 Unable to obtain ROS due to altered mental status. Exam: 17:00 Head/Face: Normocephalic, atraumatic. cp 17:00 Constitutional: The patient appears in no acute distress, non-diaphoretic, non-toxic, well developed, well nourished, disheveled 17:00 Eyes: Periorbital structures: appear normal, Pupils: pinpoint, bilaterally, Conjunctiva: normal, no exudate, no injection, Sclera: no appreciated abnormality, Lids and lashes: appear normal, bilaterally. 17:00 ENT: External ear(s): are unremarkable, Ear canal(s): are normal, clear, TM's: bulging, is not appreciated, bilaterally, dullness, bilaterally, erythema, is not appreciated, bilaterally, Nose: is normal, Mouth: Lips: dry, Oral mucosa: dry, Posterior pharynx: Airway: no evidence of obstruction, patent. 17:00 Neck: ROM/movement: is normal, is supple, without pain, no range of motions limitations, no meningismus, no nuchal rigidity. 17:00 Chest/axilla: Inspection: normal, Palpation: is normal, no crepitus, no tenderness. 17:00 Cardiovascular: Rate: normal, Rhythm: regular, Pulses: Pulses are 2+ in right radial artery and left radial artery. Edema: is not appreciated, JVD: is not appreciated. 17:00 Respiratory: the patient does not display signs of respiratory distress, Respirations: accessory muscle usage, is absent, intercostal retractions, are absent, Breath sounds: are clear throughout, no decreased breath sounds, no stridor, no wheezing. 17:00 Abdomen/GI: Inspection: abdomen appears normal, Bowel sounds: active, all quadrants, Palpation: abdomen is soft and non-tender, in all quadrants, rebound tenderness, is not appreciated, voluntary guarding, is not appreciated, involuntary guarding, is not appreciated. 17:00 Skin: cellulitis, is not appreciated, no rash present. 17:00 Neuro: Orientation: to person, place, Mentation: slow to respond, sleepy. 18:01 ECG was reviewed by the Attending Physician. cp Vital Signs: 16:40 BP 150 / 102; Pulse 90; Resp 18; Temp 98.2; Pulse Ox 99% on NC; aj1 18:00 BP 128 / 87; Pulse 84; Resp 12; Pulse Ox 100% on NC; ph 19:18 BP 116 / 75; Pulse 85; Resp 14; Pulse Ox 100% ; ea 20:10 BP 109 / 77; Pulse 74; Resp 12; Pulse Ox 100% ; ea 20:15 Temp 98.0(A); ea MDM: 18:30 Data reviewed: vital signs, nurses notes, lab test result(s), EKG, radiologic studies, cp CT scan. 18:30 Test interpretation: by ED physician or midlevel provider: ECG. cp 18:35 Patient medically screened. cp 02/11 16:37 Order name: glucometer results - FOR PT WITH NO ID; Complete Time: 17:26 em 02/11 16:38 Order name: Acetaminophen cp 02/11 16:38 Order name: Basic Metabolic Panel; Complete Time: 17:54 cp 02/11 17:41 Interpretation: Normal except: GLUC 324; GFR 60. 02/11 16:38 Order name: CBC with Diff; Complete Time: 19:30 cp 02/11 17:58 Interpretation: Abnormal: WBC 22.2; RBC 4.05; HGB 13.4; HCT 39.2; MCV 96.9; MCH 33.2; cp BOWEN% 83.9; LYM% 5.6; NEUT A 18.6; EOSA 0.9; MNA 1.4. 02/11 16:38 Order name: ETOH Level; Complete Time: 17:33 cp 02/11 17:58 Interpretation: Within normal limits: ETOH < 3. 02/11 16:38 Order name: Hepatic Function; Complete Time: 17:54 02/11 16:38 Order name: PT-INR; Complete Time: 17:33 02/11 16:38 Order name: Ptt, Activated; Complete Time: 17:33 02/11 16:38 Order name: Salicylate; Complete Time: 17:26 02/11 17:26 Interpretation: DON 1.8; Reviewed. 02/11 16:38 Order name: Urine Drug Screen; Complete Time: 18:05 02/11 16:38 Order name: TSH; Complete Time: 17:54 02/11 16:38 Order name: T3 Free; Complete Time: 17:54 02/11 16:38 Order name: Troponin I; Complete Time: 17:54 02/11 16:38 Order name: Acetaminophen Level; Complete Time: 17:54 EDMS 02/11 16:51 Order name: AMMONIA; Complete Time: 17:26 cp 02/11 16:51 Order name: Lactate; Complete Time: 17:33 cp 02/11 16:51 Order name: Procalcitonin; Complete Time: 17:54 cp 02/11 16:51 Order name: CT Head C Spine; Complete Time: 17:26 cp 02/11 16:51 Order name: ABG cp 02/11 16:52 Order name: ABG Arterial Blood Gas; Complete Time: 18:09 EDMS 02/11 16:52 Order name: Blood Culture Adult (2) cp 02/11 17:33 Order name: XRAY Chest (1 view); Complete Time: 19:30 cp 02/11 17:34 Order name: CBC Smear Scan; Complete Time: 19:30 EDMS 02/11 17:38 Order name: T4 Free; Complete Time: 17:54 EDMS 02/11 18:05 Order name: Urine Dipstick--Ancillary (enter results); Complete Time: 18:30 eb 02/11 18:50 Order name: Glucose, Ancillary Testing; Complete Time: 19:30 EDMS 02/11 16:38 Order name: EKG; Complete Time: 16:39 cp 02/11 16:38 Order name: EKG - Nurse/Tech; Complete Time: 18:03 cp 02/11 16:38 Order name: IV Saline Lock; Complete Time: 17:14 cp 02/11 16:38 Order name: Labs collected and sent; Complete Time: 17:14 cp 02/11 16:38 Order name: Urine Dipstick-Ancillary (obtain specimen); Complete Time: 18:03 cp 02/11 16:38 Order name: Seizure Precautions; Complete Time: 17:14 cp 02/11 17:18 Order name: Delcid; Complete Time: 17:49 cp EC:01 Rate is 104 beats/min. Rhythm is regular. WA interval is normal. QRS interval is cp prolonged at 116 msec. QT interval is normal. Interpreted by me. Reviewed by me. Administered Medications: 17:35 Drug: NS 0.9% 1000 ml Route: IV; Rate: 1 bolus; Site: left antecubital; hb 19:00 Follow up: Response: No adverse reaction; IV Status: Completed infusion ea 17:40 Drug: NARcan 1 mg Route: IVP; Site: left forearm; hb 17:42 Drug: NARcan 1 mg Route: IVP; Site: left antecubital; hb 17:46 Drug: NARcan 2 mg Route: IVP; Site: left antecubital; hb 19:41 Follow up: Response: No adverse reaction ph 18:03 Drug: Zofran 4 mg Route: IVP; Site: left antecubital; hb 19:00 Follow up: Response: No adverse reaction ea 18:30 Drug: Keppra 1000 mg Route: IV; Rate: calculated rate; Site: left antecubital; ph 19:40 Follow up: Response: No adverse reaction; IV Status: Completed infusion ph 18:40 Drug: NARcan 2 mg Route: IVP; Site: left antecubital; ph 19:40 Follow up: Response: No adverse reaction ph 18:41 Drug: NARcan 2 mg Route: IVP; Site: left antecubital; ph 19:40 Follow up: Response: No adverse reaction ph 18:50 Drug: Insulin Regular Human 5 units {Co-Signature: sv (Jamila Arechiga RN).} Route: ph IVP; Site: left antecubital; 19:40 Follow up: Response: No adverse reaction ph 18:50 Drug: NARcan 2 mg Route: IVP; Site: left antecubital; ph 19:41 Follow up: Response: No adverse reaction ph 18:54 Drug: NARcan 10 mg Route: IVP; Rate: 8 mg/hr; Site: left antecubital; ph 19:00 Follow up: Response: No adverse reaction ea 18:55 Drug: NARcan 2 mg Route: IVP; Site: left antecubital; ph 19:41 Follow up: Response: No adverse reaction ph 19:05 Drug: NARcan 2 mg Route: IVP; Site: left wrist; ea 20:35 Follow up: Response: No adverse reaction ea 19:35 CANCELLED (Inappropriate at this time): Versed 2 mg IVP once ea 19:49 Drug: NARcan 2 mg Route: IVP; Site: left forearm; ea 20:35 Follow up: Response: No adverse reaction ea 20:35 Drug: NS 0.9% 1000 ml Route: IV; Rate: 125 ml/hr; Site: left antecubital; ea 20:36 Follow up: IV Status: Infusion continued upon transfer ea Point of Care Testing: Blood Glucose: 16:37 Blood Glucose: 306 mg/dL; em 20:15 Blood Glucose: 177 mg/dL; ea Ranges: Critical Glucose Levels:Adult <50 mg/dl or >400 mg/dl <40 mg/dl or >180 mg/dl Disposition: 21:00 Chart complete. cp Disposition: 02/11/18 18:[address] [facility]. Diagnosis are Opioid abuse with intoxication, Epilepsy and recurrent seizures. - Reason for transfer: Higher level of care. - Accepting physician is DR White. - Condition is Serious. - Problem is new. - Symptoms have improved. Signatures: Dispatcher [employer] Sameera Condon, RN RN aj1 Meghna Oneil RN RN ph Jame Oropeza, LISA PA cp Malissa Bates, RN MELANIE Demetrice Bower RN RN ea Stephanie Verde RN sv Corrections: (The following items were deleted from the chart) 17:58 17:55 Abnormal: WBC 22.2; RBC 4.05; HGB 13.4; HCT 39.2; MCV 96.9; MCH 33.2; BOWEN% 83.9; cp LYM% 5.6; NEUT A 18.6. cp 19:35 19:17 Versed 2 mg IVP once ordered. ea ea 19:35 19:18 Versed 2 mg IVP once given. ea ea 19:35 19:34 Versed 2 mg IVP once ordered. ea ea 20:44 18:35 02/11/2018 18:[address] [facility]. Diagnosis is ea Opioid abuse with intoxication; Epilepsy and recurrent seizures. Reason for transfer: Higher level of care. Accepting physician is DR White. Condition is Serious. Problem is new. Symptoms have improved. cp
[2018-02-11 18:53] LABS: Platelet Estimate ADEQ; Urine White Blood Cell Casts OK
[2018-02-11] MEDS ORDERED: INSULIN -REGULAR HUMAN 50 UNIT/0.5 ML ML ONE (18:53)
[2018-02-11 18:55] LABS: Blood Morphology Comment NOT SEEN (NOT SEEN)
[2018-02-11] MEDS ORDERED: NALOXONE IV ONE ×2 (19:00)
[2018-02-11] MEDS ORDERED: NA CHLORIDE 0.9% IV ONE ×2 (19:00)
--- NOTE | 2018-02-11 19:16 | RAD REPORT ---
EXAM DESCRIPTION: RAD - Chest Single View - 02/11/2018 6:22 pm CLINICAL HISTORY: AMS Chest pain. COMPARISON: Chest Single View dated 08/11/2017; Chest Single View dated 05/06/2017 FINDINGS: Portable technique limits examination quality. Mild interstitial prominence is noted throughout the lung renteria. No focal consolidation seen. The he art is normal in size. No displaced fractures. IMPRESSION: Mild interstitial prominence is present.
[2018-02-11 20:49] VITALS: O2SAT 100
[2018-02-11 20:51] VITALS: BP 109/77
[2018-02-11 20:52] VITALS: TEMP 98
--- NOTE | 2018-02-12 07:29 | EKG ---
Test Date: 2018-02-11 Test Time: 17:53:26 Health Information Administrator: AZAEL MEASUREMENT RESULTS: Intervals: Rate: 104 DC: 186 QRSD: 118 QT: 382 QTc: 502 [place]: P: 70 DC: 186 QRS: -84 T: 69 INTERPRETIVE STATEMENTS: Sinus tachycardia Possible Left atrial enlargement Left axis deviation Incomplete right bundle branch block Septal infarct, age undetermined Abnormal ECG Compared to ECG 08/11/2017 06:58:43 Left-axis deviation now present Incomplete right bundle-branch block now present Myocardial infarct finding now present Sinus rhythm no longer present Electronically Signed On 02-12-18 07:28:47 CDT by Jose aHnna
--- NOTE | 2018-02-12 07:29 | EKG ---
Test Date: 2018-02-11 Test Time: 17:54:27 Compliance Administrator: AZAEL MEASUREMENT RESULTS: Intervals: Rate: 104 [place]: 186 QRSD: 116 QT: 378 QTc: 497 [place]: P: 71 [place]: 186 QRS: -72 T: 69 INTERPRETIVE STATEMENTS: Sinus tachycardia Possible Left atrial enlargement Left axis deviation Incomplete right bundle branch block Septal infarct, age undetermined Abnormal ECG Compared to ECG 02/11/2018 17:53:26 No significant changes Electronically Signed On 02-12-18 07:28:30 CDT by Jose Hanna
== END 2018-02-11 20:44 | disposition short-term general hospital (02) ==
LOC: ER 16:31
DX: F11.129 Opioid abuse with intoxication, unspecified (principal); G40.802 Other epilepsy, not intractable, without status epilepticus; E11.9 Type 2 diabetes mellitus without complications; E78.00 Pure hypercholesterolemia, unspecified; E03.9 Hypothyroidism, unspecified; Z79.4 Long term (current) use of insulin; Z72.0 Tobacco use
CPT/HCPCS: 36415; 70450; 71045; 72125; 80048; 80076; 80307; 80320; 80329; 81003; 82140; 82805; 82962; 83605; 84145; 84439; 84443; 84481; 84484; 85025; 85610; 85730; 87040; 93005; 99291; J1953; J2405; J7030

== ENCOUNTER 2018-02-19 17:06 | Emergency (ER) | payer SELFPAY ==
--- OUTSIDE RECORDS SUMMARY | 2018-02-19 17:08 | XMS REPORT | Clinical Summary ---
:1975 Author Organization [facility] Address [address] [place] [address] Phone Care Team Providers Name Role Phone Unavailable Primary Care Provider Unavailable Allergies No Known Allergies Current Medications Prescription Sig. Disp. Refills Start Date End Date Status thyroid, pork, 120 mg Take 120 mg by mouth Active Tab daily. gemfibrozil (LOPID) Take 600 mg by mouth 2 Active 600 MG tablet (two) times daily before meals. insulin detemir U-100 Inject 6 Units Active (LEVEMIR) 100 unit/mL subcutaneously nightly. injection insulin aspart U-100 Inject 3 Units Active (NOVOLOG) 100 unit/mL subcutaneously 3 InPn (three) times daily before meals. acetaminophen-codeine Take 1 tablet by mouth Active (TYLENOL #4) 300-60 every 6 (six) hours as mg per tablet needed for Pain. Active Problems Problem Noted Date Moderate protein-calorie malnutrition (HCC) 02/14/2018 Provoked seizure (HCC) 02/12/2018 Acute encephalopathy 02/12/2018 Hyperglycemia 02/12/2018 Diabetes mellitus (HCC) 02/12/2018 Hypercholesteremia 02/12/2018 Thyroid disease 02/12/2018 Leukocytosis 02/12/2018 Anemia 02/12/2018 Convulsive seizure disorder with status epilepticus (HCC) 02/11/2018 Encounters Date Type Specialty Care Team Description 02/11/2018 - Hospital Encounter General Internal Harry White Acute 02/13/2018 Medicine MD Meron encephalopathy;cheyanne Ferro seizure Leighton Lamas, (HCC);Hyperglycemia; Convulsive seizure disorder with status epilepticus (HCC);Leukocytosis, unspecified type after 02/18/2017 Immunizations Name Dates Previously Given Next Due Influenza Four-QIV Non-PF 5+ YR 02/13/2018 Social History Tobacco Use Types Packs/Day Years Used Date Current Every Day Smoker Smokeless Tobacco: Current User Sex Assigned at Date Recorded Not on file Last Filed Vital Signs Vital Sign Reading Time Taken Blood Pressure 115/73 02/13/2018 3:20 PM CDT Pulse 98 02/13/2018 3:20 PM CDT Temperature 36.2 C (97.2 F) 02/13/2018 3:20 PM CDT Respiratory Rate 18 02/13/2018 3:20 PM CDT Oxygen Saturation 96% 02/13/2018 3:20 PM CDT Inhaled Oxygen Concentration - - Weight 69 kg (152 lb 1.9 oz) 02/11/2018 10:00 PM CDT Height - - Body Mass Index - - Plan of Treatment Not on file Results RHYTHM STRIP - SCAN (02/14/2018 1:22 PM)POC-Glucose meter (02/13/2018 4:58 PM) Only the most recent of9 resultswithin the time period is included. Component Value Ref Range POC-Glucose Meter 232 (H)Comment: TESTED AT [address] 70 - 110 mg/[id number] [id number] Specimen Performing Laboratory Blood [facility] [address] [address] CTA brain (02/13/2018 4:35 PM) Specimen Performing Laboratory GE RIS Narrative FINAL REPORT CTV brain 02/13/2018 4:35 PM CLINICAL INDICATION: Stroke COMPARISON:MRI brain 02/12/2018 TECHNIQUE: Noncontrast CT images of head were obtained. Subsequently Axial contrast-enhanced CT venographic images of the brain were obtained, from which three-dimensional reconstructed images were created. Additional imaging series were created on an independent workstation using maximum intensity projection and volume rendered technique. This examination was performed according to our departmental dose optimization program, which includes automated exposure control, adjustment of the mA and/or kV according to patient size, and/or use of iterated reconstruction technique. FINDINGS: There is no intracranial hemorrhage, mass, hydrocephalus, extra-axial collection, or midline shift. There is rare chronic-appearing microvascular ischemia in the supratentorial white matter. The dural venous sinuses, cortical draining veins, and deep venous drainage pathways are patent. There is paranasal sinus mucosal thickening, with complete opacification of the partially visualized right maxillary sinus. The tympanomastoid cavities are well aerated. The skull is intact. IMPRESSION: 1. No intracranial hemorrhage or mass effect. 2. Unremarkable intracranial CTV. 3. Sinusitis. Signed: Blaise Pizarro MD Report Verified Date/Time:02/13/2018 16:41:24 Reading Location: [facility] Radiology Reading Room Procedure Note Interface, External Ris In - 02/13/2018 6:05 PM CDT FINAL REPORT CTV brain 02/13/2018 4:35 PM CLINICAL INDICATION: Stroke COMPARISON: MRI brain 02/12/2018 TECHNIQUE: Noncontrast CT images of head were obtained. Subsequently Axial contrast-enhanced CT venographic images of the brain were obtained, from which three-dimensional reconstructed images were created. Additional imaging series were created on an independent workstation using maximum intensity projection and volume rendered technique. This examination was performed according to our departmental dose optimization program, which includes automated exposure control, adjustment of the mA and/or kV according to patient size, and/or use of iterated reconstruction technique. FINDINGS: There is no intracranial hemorrhage, mass, hydrocephalus, extra-axial collection, or midline shift. There is rare chronic-appearing microvascular ischemia in the supratentorial white matter. The dural venous sinuses, cortical draining veins, and deep venous drainage pathways are patent. There is paranasal sinus mucosal thickening, with complete opacification of the partially visualized right maxillary sinus. The tympanomastoid cavities are well aerated. The skull is intact. IMPRESSION: 1. No intracranial hemorrhage or mass effect. 2. Unremarkable intracranial CTV. 3. Sinusitis. Signed: Blaise Pizarro MD Report Verified Date/Time: 02/13/2018 16:41:24 Reading Location: [facility] Radiology Reading Room Iron, TIBC, % sat. (without ferritin) (02/13/2018 6:40 AM) Component Value Ref Range Iron 49 40 - 160 ug/dL TIBC 231 (L) 250 - 450 ug/dL Iron % Saturation 21 20 - 55 % Specimen Performing Laboratory Blood [facility] [address] [address] Immature reticulocyte fraction (02/13/2018 6:40 AM) Component Value Ref Range Immature Reticulocyte Fraction 8.600Comment: 2.300 - 13.400 % % Retic 1.4 0.5 - 1.8 % Specimen Performing Laboratory Blood [address] [address] CBC with platelet count + automated diff (02/13/2018 6:40 AM)Only the most recent of3 resultswithin the time period is included. Component Value Ref Range WBC 8.5 3.5 - 10.5 K/L RBC 4.49 (L) 4.63 - 6.08 M/L Hemoglobin 14.5 13.7 - 17.5 GM/DL Hematocrit 44.1 40.1 - 51.0 % MCV 98.2 (H) 79.0 - 92.2 fL MCH 32.3 (H) 25.7 - 32.2 pg MCHC 32.9 32.3 - 36.5 GM/DL RDW 12.8 11.6 - 14.4 % Platelets 365 150 - 450 K/CU MM MPV 10.3 9.4 - 12.4 fL nRBC 0 0 - 0 /100 WBC % Neutros 59 % % Lymphs 23 % % Monos 8 % % Eos 9 % % Baso 1 % # Neutros 5.00 1.78 - 5.38 K/L # Lymphs 1.94 1.32 - 3.57 K/L # Monos 0.67 0.30 - 0.82 K/L # Eos 0.73 (H) 0.04 - 0.54 K/L # Baso 0.10 (H) 0.01 - 0.08 K/L Immature Granulocytes-Relative 0 0 - 1 % Specimen Performing Laboratory Blood [address] [address] CBC with platelet count + automated diff (02/13/2018 6:40 AM)Only the most recent of3 resultswithin the time period is included. Specimen Performing Laboratory Blood Narrative The following orders were created for panel order CBC with platelet count + automated diff. Procedure Abnormality Status --------- ------ CBC with platelet count ...[[id number]]AbnormalFinal result Please view results for these tests on the individual orders. Lipid panel (02/13/2018 6:40 AM) Component Value Ref Range Triglycerides 189Comment: Specimen slightly hemolyzed mg/dL Cholesterol 265Comment: Specimen slightly hemolyzed mg/dL HDL 46 mg/dL LDL Calculated 181 mg/dL Specimen Performing Laboratory Blood [address] [address] Narrative Triglyceride Reference Range: Low Risk <150 [id number] High Risk 200-499 Very High Risk>=500 Cholesterol Reference Range: Low Risk <200 [id number] High Risk>240 HDL Cholesterol Reference Range: Low Risk >=60 High Risk <40 LDL Cholesterol Reference Range: Optimal<100 Near [id number] [id number] [id number] Very High >=190 Basic metabolic panel (02/13/2018 6:40 AM)Only the most recent of2 resultswithin the time period is included. Component Value Ref Range Sodium 134 (L) 136 - 145 meq/L Potassium 5.4 (H)Comment: Specimen slightly hemolyzed 3.5 - 5.1 meq/L Chloride 101 98 - 107 meq/L CO2 26 22 - 29 meq/L BUN 9 7 - 21 mg/dL Creatinine 1.01Comment: Specimen slightly hemolyzed 0.57 - 1.25 mg/dL Glucose 347 (H) 70 - 105 mg/dL Calcium 8.9 8.4 - 10.2 mg/dL EGFR 80Comment: ESTIMATED GFR IS NOT ACCURATE mL/min/1.73 sq m CREATININE CLEARANCE IN PREDICTING GLOMERULAR FILTRATION RATE. ESTIMATED GFR IS NOT APPLICABLE FOR DIALYSIS PATIENTS. Specimen Performing Laboratory Blood [address] [address] MR brain without IV contrast (02/12/2018 7:08 PM) Specimen Performing Laboratory shipbeat RIS Narrative FINAL REPORT MRI brain without contrast INDICATION: New onset seizure, status post opioid overdose. TECHNIQUE: Multiplanar, multisequence MR imaging of the brain was performed utilizing the following imaging sequences: Axial T2, FLAIR, GRE, and DWI; sagittal and coronal T1; coronal T2, FLAIR, and T1-weighted images through the temporal lobes were obtained per seizure protocol. COMPARISON: None available FINDINGS: There is no acute infarct, hematoma, extra-axial collection, hydrocephalus, or mass effect. There is altered signal in the right transverse and sigmoid sinuses. While possibly due to slow flow, intravascular thrombus cannot be excluded. The major proximal inaja of [place] flow voids are maintained. Mild nonspecific white matter disease is probably of microvascular etiology given diabetes and hyperlipidemia. The hippocampal formations are symmetrical appearing. No schizencephaly or callosal dysgenesis is seen. There is a left nasopharyngeal mucous retention or Tornwaldt cyst. There is multifocal sinus mucosal disease with complete right maxillary sinus opacification, but no air-fluid levels. The mastoid air cells are well aerated. The sella, craniocervical junction, orbits, and calvarium are unremarkable. IMPRESSION: 1. No evidence of acute infarct, hemorrhage, or hydrocephalus. 2. Right transverse and sigmoid sinus signal changes, possibly slow flow. Intravascular thrombus cannot be excluded, however. Advise follow up MRV as clinically warranted. 3. Symmetrical appearing hippocampal formations. 4. Multifocal sinus mucosal disease. Consider ENT follow up. Signed: Le Gregory MD Report Verified Date/Time:02/12/2018 19:43:32 Reading Location: [facility] Radiology Reading Room Procedure Note Interface, External Ris In - 02/12/2018 7:45 PM CDT FINAL REPORT MRI brain without contrast INDICATION: New onset seizure, status post opioid overdose. TECHNIQUE: Multiplanar, multisequence MR imaging of the brain was performed utilizing the following imaging sequences: Axial T2, FLAIR, GRE, and DWI; sagittal and coronal T1; coronal T2, FLAIR, and T1-weighted images through the temporal lobes were obtained per seizure protocol. COMPARISON: None available FINDINGS: There is no acute infarct, hematoma, extra-axial collection, hydrocephalus, or mass effect. There is altered signal in the right transverse and sigmoid sinuses. While possibly due to slow flow, intravascular thrombus cannot be excluded. The major proximal inaja of [place] flow voids are maintained. Mild nonspecific white matter disease is probably of microvascular etiology given diabetes and hyperlipidemia. The hippocampal formations are symmetrical appearing. No schizencephaly or callosal dysgenesis is seen. There is a left nasopharyngeal mucous retention or Tornwaldt cyst. There is multifocal sinus mucosal disease with complete right maxillary sinus opacification, but no air-fluid levels. The mastoid air cells are well aerated. The sella, craniocervical junction, orbits, and calvarium are unremarkable. IMPRESSION: 1. No evidence of acute infarct, hemorrhage, or hydrocephalus. 2. Right transverse and sigmoid sinus signal changes, possibly slow flow. Intravascular thrombus cannot be excluded, however. Advise follow up MRV as clinically warranted. 3. Symmetrical appearing hippocampal formations. 4. Multifocal sinus mucosal disease. Consider ENT follow up. Signed: Le Gregory MD Report Verified Date/Time: 02/12/2018 19:43:32 Reading Location: [facility] Radiology Reading Room AWAKE AND DROWSY (02/12/2018 2:47 PM) Specimen Performing Laboratory [facility] EEG REPORT DATE OF TEST: 02-12-2018 DATE OF REPORT: 02-12-2018 ACC: [id number] EE Start time: 14:04 Stop time: 14:24 ICD-10: R56.9 CPT Code: 12550 HISTORY: 40 y old 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, hypothyroidism, hypercholesterolemia presented with witnessed seizures in the setting of altered mental status with suspected overdose. MEDICATIONS: keppra TECHNICAL SUMMARY: This is a digital video EEG recorded with 32 input channels reviewed with bipolar and referential montages using the modified combinatorial system nomenclature. DESCRIPTION OF RECORD: During the maximally alert state, 6-7 Hz posterior dominant rhythm, which is reactive but non-sustained. The background consists of generalized 5-7 Hz theta activity with intermixed 1.5-3 Hz delta activity.The background shows spontaneous reactivity. Drowsiness was characterized by increased frontocentral theta, vertex sharp transients . Stage 2 sleep architecture was not recorded. HV: Hyperventilation was not performed. PHOTIC STIMULATION: Photic stimulation was not performed. VIDEO EVENTS RECORDED: none ELECTROCARDIOGRAM EVENTS: none IMPRESSION: Abnormal Awake and drowsy EEG 1. Mild generalized slowing of background rhythm. 2. Slow posterior dominant rhythm CLINICAL CORRELATION: Mild generalized slowing of background rhythm is consistent with moderate degree of encephalopathy of non-specific etiology (hypoxia, infectious, toxic/metabolic). An EEG without epileptiform discharges does not exclude the possibility of epilepsy. If the clinical suspicion of epilepsy remains, consider additional EEG recordings. Vicente Robles MD Neurophysiology Fellow Attending note: I personally reviewed this EEG record in its entirety and I agree with the details of this report. Queenie Paiz MD, PhD Clinical Neurophysiology/Epilepsy Attending [facility] Procedure Note Interface, External Ris In - 02/12/2018 5:46 PM CDT [facility] EEG REPORT DATE OF TEST: 02-12-2018 DATE OF REPORT: 02-12-2018 ACC: [id number] EE Start time: 14:04 Stop time: 14:24 ICD-10: R56.9 CPT Code: 17654 HISTORY: 40 y old 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, hypothyroidism, hypercholesterolemia presented with witnessed seizures in the setting of altered mental status with suspected overdose. MEDICATIONS: keppra TECHNICAL SUMMARY: This is a digital video EEG recorded with 32 input channels reviewed with bipolar and referential montages using the modified combinatorial system nomenclature. DESCRIPTION OF RECORD: During the maximally alert state, 6-7 Hz posterior dominant rhythm, which is reactive but non-sustained. The background consists of generalized 5-7 Hz theta activity with intermixed 1.5-3 Hz delta activity. The background shows spontaneous reactivity. Drowsiness was characterized by increased frontocentral theta, vertex sharp transients . Stage 2 sleep architecture was not recorded. HV: Hyperventilation was not performed. PHOTIC STIMULATION: Photic stimulation was not performed. VIDEO EVENTS RECORDED: none ELECTROCARDIOGRAM EVENTS: none IMPRESSION: Abnormal Awake and drowsy EEG 1. Mild generalized slowing of background rhythm. 2. Slow posterior dominant rhythm CLINICAL CORRELATION: Mild generalized slowing of background rhythm is consistent with moderate degree of encephalopathy of non-specific etiology (hypoxia, infectious, toxic/metabolic). An EEG without epileptiform discharges does not exclude the possibility of epilepsy. If the clinical suspicion of epilepsy remains, consider additional EEG recordings. Vicente Robles MD Neurophysiology Fellow Attending note: I personally reviewed this EEG record in its entirety and I agree with the details of this report. Queenie Paiz MD, PhD Clinical Neurophysiology/Epilepsy Attending [facility] /Free T4 If Indicated (02/12/2018 8:49 AM) Component Value Ref Range TSH 4.03 0.35 - 4.94 uIU/mL Specimen Performing Laboratory Blood - Arm, Right [address] [address] Magnesium (02/12/2018 4:20 AM) Component Value Ref Range Magnesium 2.1 1.6 - 2.6 mg/dL Specimen Performing Laboratory Blood [address] [address] XR abdomen / KUB 1 view (02/12/2018 1:26 AM) Specimen Performing Laboratory GE RIS Narrative FINAL REPORT CLINICAL HISTORY: Abdominal distension, obtundation TECHNIQUE: RAD, ABDOMEN/KUB, 1 VIEW AP COMPARISON: None Impression: Nonobstructive bowel gas pattern without distended loops of bowel. Moderate stool burden with gas seen throughout the large bowel and rectum. No radiopaque urinary tract calculi. Normal osseous structures. Linear focus of gas overlying the pelvis may or present gas-filled loop of bowel however shape and location is concerning for gas within the bladder, correlate urinalysis and history of recent instrumentation. Vascular calcification in the pelvis. Signed: Wilfredo De Leon MD Report Verified Date/Time:02/12/2018 01:33:19 Reading Location: [address] Transitional Reading Room Procedure Note Interface, External Ris In - 02/12/2018 1:35 AM CDT FINAL REPORT CLINICAL HISTORY: Abdominal distension, obtundation TECHNIQUE: RAD, ABDOMEN/KUB, 1 VIEW AP COMPARISON: None Impression: Nonobstructive bowel gas pattern without distended loops of bowel. Moderate stool burden with gas seen throughout the large bowel and rectum. No radiopaque urinary tract calculi. Normal osseous structures. Linear focus of gas overlying the pelvis may or present gas-filled loop of bowel however shape and location is concerning for gas within the bladder, correlate urinalysis and history of recent instrumentation. Vascular calcification in the pelvis. Signed: Wilfredo De Leon MD Report Verified Date/Time: 02/12/2018 01:33:19 Reading Location: [place] [id number] Transitional Reading Room Troponin I (02/11/2018 11:42 PM) Component Value Ref Range Troponin I <0.01 0.00 - 0.03 ng/mL Specimen Performing Laboratory Blood [address] [address] Narrative Troponin I (TnI) levels must be interpreted in the context of the presenting symptoms and the clinical findings. Elevated TnI levels indicate myocardial damage, but are not specific for ischemic heart disease. Elevated TnI levels are seen in patients with other cardiac conditions (including myocarditis and congestive heart failure), and slight TnI elevations occur in patients with other conditions, including sepsis, renal failure, acidosis, acute neurological disease, and persistent tachyarrhythmia. Blood culture (02/11/2018 11:42 PM) Component Value Ref Range Result No growth in 5 days Specimen Performing Laboratory Blood - Arm, Left [address] [address] Hemoglobin A1c (02/11/2018 11:42 PM) Component Value Ref Range Hemoglobin A1C 6.5 (H) 4.3 - 6.1 % Specimen Performing Laboratory Blood [address] [address] Comprehensive metabolic panel (02/11/2018 11:42 PM) Component Value Ref Range Protein, Total 6.9 6.0 - 8.3 gm/dL Albumin 3.8 3.5 - 5.0 g/dL Alkaline Phosphatase 95 40 - 150 U/L Total Bilirubin 0.6 0.2 - 1.2 mg/dL Sodium 135 (L) 136 - 145 meq/L Potassium 5.0 3.5 - 5.1 meq/L Chloride 104 98 - 107 meq/L CO2 25 22 - 29 meq/L BUN 8 7 - 21 mg/dL Creatinine 1.03 0.57 - 1.25 mg/dL Glucose 292 (H) 70 - 105 mg/dL Calcium 9.2 8.4 - 10.2 mg/dL AST 23 5 - 34 U/L ALT 17 6 - 55 U/L EGFR 78Comment: ESTIMATED GFR IS NOT ACCURATE mL/min/1.73 sq m CREATININE CLEARANCE IN PREDICTING GLOMERULAR FILTRATION RATE. ESTIMATED GFR IS NOT APPLICABLE FOR DIALYSIS PATIENTS. Specimen Performing Laboratory Blood [address] [address] Rapid drug screen, urine (02/11/2018 11:17 PM) Component Value Ref Range Barbiturate Screen Negative Negative Benzodiazepine Screen Negative Negative Cocaine (Metab.) Screen Negative Negative Methadone Screen Negative Negative Opiate Screen Negative Negative Cannabinoid Screen Negative Negative Amph/Methamph Screen Negative Negative Phencyclidine Screen Negative Negative Oxycodone Screen Negative Negative Specimen Performing Laboratory Urine [address] [address] Narrative DRUGCUTOFF CONC. Cocaine 300 ng/mL [id number] ng/mL Jxdbnokvstcbqo760 ng/mL Barbiturate 200 ng/mL Wjsfrjuffwxjd13 ng/mL Kjbwfy026 ng/mL Methadone 300 ng/mL Amphetamine/ 1000 ng/mL Methamphetamine Oxycodone 300 ng/mL This assay provides an unconfirmed qualitative test result for the clinical management of patients in emergency situations. Chain of custody not maintained. Some duam-zkb-lbpdxec medications, as well as adulterants, may cause inaccurate results. Clinical correlation should be applied. A more comprehensive drug screen or confirmation of a detected drug may be performed upon request. Urinalysis w/ Microscopic (02/11/2018 11:15 PM) Component Value Ref Range Color, UA Light Yellow Clarity, UA Clear Specific [place], UA 1.007 1.001 - 1.035 pH, UA 6.5 5.0 - 8.0 Protein, UA Negative Negative Glucose, UA 500 mg/dL (A) Negative Ketones, UA Negative Negative Bilirubin, UA Negative Negative Blood, UA Negative Negative Nitrite, UA Negative Negative Leukocytes, UA Negative Negative Urobilinogen, UA 0.2 0.2 - 1.0 mg/dL RBC, UA <1 /HPF WBC, UA 1 /HPF Mucus Rare Specimen Source Specimen Performing Laboratory Urine [address] [address] Urine culture (02/11/2018 11:15 PM) Component Value Ref Range Result No growth Specimen Performing Laboratory Urine - Urine, Straight Catheter [address] [address] XR chest 1 view portable / bedside (02/11/2018 10:54 PM) Specimen Performing Laboratory GE RIS Narrative FINAL REPORT RAD, CHEST, 1 VIEW, NON DEPT INDICATION: Obtundation with coarse respirations, baseline COMPARISON: None. FINDINGS: Portable frontal view of the chest. IMPRESSION: Support Lines: None. Lungs and pleura: Clear lungs. No pneumothorax. Heart and mediastinum: Unremarkable. Additional findings: Fluid and gaseous distention of the gastric lumen. Signed: JR Lozano Robert MD Report Verified Date/Time:02/11/2018 23:11:04 Reading Location: [address] Reading Room Procedure Note Interface, External Ris In - 02/11/2018 11:13 PM CDT FINAL REPORT RAD, CHEST, 1 VIEW, NON DEPT INDICATION: Obtundation with coarse respirations, baseline COMPARISON: None. FINDINGS: Portable frontal view of the chest. IMPRESSION: Support Lines: None. Lungs and pleura: Clear lungs. No pneumothorax. Heart and mediastinum: Unremarkable. Additional findings: Fluid and gaseous distention of the gastric lumen. Signed: JR Lozano Robert MD Report Verified Date/Time: 02/11/2018 23:11:04 Reading Location: [address] Reading Room after 02/18/2017
--- OUTSIDE RECORDS SUMMARY | 2018-02-19 17:09 | XMS REPORT ---
:1975 [facility] [address] [place] [id number] Care Team Providers Name Role Phone MARIA EUGENIA MANRIQUE Unavailable Unavailable Problems This patient has no known problems. Allergies, Adverse Reactions, Alerts This patient has no known allergies or adverse reactions. Medications This patient has no known medications. Results Test Description Test Time Test Comments Text Results Atomic Results Result Comments BLOOD CULTURE 2018-02-17 06:00:00 Test Item Value Reference Range Comments CULTURE (BEAKER) (test riia=5552) No growth in 5 days URINE [id number] 10:25:00 Test Item Value Reference Range Comments CULTURE (BEAKER) (test azwo=7343) No growth POCT-GLUCOSE [id number] 17:10:00 Test Item Value Reference Range Comments POC-GLUCOSE METER (BEAKER) 232 mg/dL 70-110 TESTED AT [address] (test zztx=9000) [facility] [address] [address], CTANGIO [id number] 16:41:00CTV pleaseFINAL REPORT CTV brain 02/13/2018 4:35 PM CLINICAL [...] is no intracranial hemorrhage, mass, hydrocephalus, extra-axial collection , or midlineshift. There is rare chronic-appearing microvascular ischemia in the supratentorial white matter. The dural venous sinuses, cortical draining veins, and deep venous drainage pathways are patent. There is paranasal sinus mucosal thickening, with complete opacification of the partially visualized right maxillary sinus. The tympanomastoid cavities are well aerated. The skull is intact. IMPRESSION: 1. No intracranial hemorrhage or mass effect.2. Unremarkable intracranial CTV.3. Sinusitis. Signed: Blaise Pizarro Verified Date/Time: 02/13/2018 16:41:24 Reading Location: [facility] Radiology Reading Room Electronically signed by: BLAISE PIZARRO M.D. on 04:41 PMPOCT-GLUCOSE [id number] 13:07:00 Test Item Value Reference Range Comments POC-GLUCOSE METER (BEAKER) 311 mg/dL 70-110 Notified MELANIE MUÑOZ/TESTED AT [facility] (test rped=7972) [address] [facility] [address] IRON, TIBC, % SAT. (WITHOUT FERRITIN)2018-02-13 10:10:00 Test Item Value Reference Range Comments IRON (BEAKER) (test uast=173) 49 ug/dL 40-160 TOTAL IRON BINDING CAPACITY (BEAKER) (test 231 ug/dL 250-450 fpsg=394) IRON % SATURATION (2) (BEAKER) (test subx=7856) 21 % 20-55 POCT-GLUCOSE [id number] 08:50:00 Test Item Value Reference Range Comments POC-GLUCOSE METER (BEAKER) 348 mg/dL 70-110 Notified MELANIE MUÑOZ/TESTED AT [facility] (test xhmp=7451) [address] [facility] [address] BASIC METABOLIC [id number] 08:31:00 Test Item Value Reference Range Comments SODIUM (BEAKER) (test 134 meq/L 136-145 uwbc=121) POTASSIUM (BEAKER) (test 5.4 meq/L 3.5-5.1 Specimen slightly jnuu=946) hemolyzed CHLORIDE (BEAKER) (test 101 meq/L 98-107 rgkw=348) CO2 (BEAKER) (test 26 meq/L 22-29 mnor=789) BLOOD UREA NITROGEN 9 mg/dL 7-21 (BEAKER) (test pdbu=246) CREATININE (BEAKER) (test 1.01 mg/dL 0.57-1.25 Specimen slightly ojjq=771) hemolyzed GLUCOSE RANDOM (BEAKER) 347 mg/dL 70-105 (test mgis=278) CALCIUM (BEAKER) (test 8.9 mg/dL 8.4-10.2 gnwc=711) EGFR (BEAKER) (test 80 mL/min/1.73 sq m ESTIMATED GFR IS NOT nnyy=6640) ACCURATE CREATININE CLEARANCE IN PREDICTING GLOMERULAR FILTRATION RATE. ESTIMATED GFR IS NOT APPLICABLE FOR DIALYSIS PATIENTS. LIPID [id number] 08:31:00 Test Item Value Reference Range Comments TRIGLYCERIDES (BEAKER) (test 189 mg/dL Specimen slightly hemolyzed rygw=333) CHOLESTEROL (BEAKER) (test 265 mg/dL Specimen slightly hemolyzed hibu=704) HDL CHOLESTEROL (BEAKER) (test 46 mg/dL mkrm=166) LDL CHOLESTEROL CALCULATED 181 mg/dL (BEAKER) (test bvzb=342) Triglyceride Reference Range: Low Risk <150 Borderline 150- 199 High Risk 200-499 Very High Risk >=500Cholesterol Reference Range: Low Risk <200 Borderline 200-239 High Risk > 240HDL Cholesterol Reference Range: Low Risk >=60 High Risk <40LDL Cholesterol Reference Range: Optimal <100 Near Optimal 100-129 Borderline 130-159 High 160-189 Very High >=190IMMATURE RETICULOCYTE [id number] 08:16:00 Test Item Value Reference Range Comments IMMATURE RETIC FRACTION (BEAKER) (test vhwv=2254) 8.600 % 2.300-13.400 RETICULOCYTE COUNT PCT (BEAKER) (test llok=119) 1.4 % 0.5-1.8 CBC W/PLT COUNT & AUTO [id number] 08:16:00 Test Item Value Reference Range Comments WHITE BLOOD CELL COUNT (BEAKER) (test hank=452) 8.5 K/ L 3.5-10.5 RED BLOOD CELL COUNT (BEAKER) (test pbdy=942) 4.49 M/ L 4.63-6.08 HEMOGLOBIN (BEAKER) (test feon=052) 14.5 GM/DL 13.7-17.5 HEMATOCRIT (BEAKER) (test rrvl=806) 44.1 % 40.1-51.0 MEAN CORPUSCULAR VOLUME (BEAKER) (test yrqq=167) 98.2 fL 79.0-92.2 MEAN CORPUSCULAR HEMOGLOBIN (BEAKER) (test 32.3 pg 25.7-32.2 xuhx=282) MEAN CORPUSCULAR HEMOGLOBIN CONC (BEAKER) (test 32.9 GM/DL 32.3-36.5 yssj=125) RED CELL DISTRIBUTION WIDTH (BEAKER) (test 12.8 % 11.6-14.4 vqaz=305) PLATELET COUNT (BEAKER) (test tpzp=115) 365 K/CU MM 150-450 MEAN PLATELET VOLUME (BEAKER) (test oamz=266) 10.3 fL 9.4-12.4 NUCLEATED RED BLOOD CELLS (BEAKER) (test 0 /100 WBC 0-0 tdqt=850) NEUTROPHILS RELATIVE PERCENT (BEAKER) (test 59 % ocba=449) LYMPHOCYTES RELATIVE PERCENT (BEAKER) (test 23 % kupt=799) MONOCYTES RELATIVE PERCENT (BEAKER) (test 8 % cuke=093) EOSINOPHILS RELATIVE PERCENT (BEAKER) (test 9 % nuco=290) BASOPHILS RELATIVE PERCENT (BEAKER) (test 1 % pfmb=333) NEUTROPHILS ABSOLUTE COUNT (BEAKER) (test 5.00 K/ L 1.78-5.38 umsc=276) LYMPHOCYTES ABSOLUTE COUNT (BEAKER) (test 1.94 K/ L 1.32-3.57 yywi=630) MONOCYTES ABSOLUTE COUNT (BEAKER) (test 0.67 K/ L 0.30-0.82 deij=978) EOSINOPHILS ABSOLUTE COUNT (BEAKER) (test 0.73 K/ L 0.04-0.54 velw=470) BASOPHILS ABSOLUTE COUNT (BEAKER) (test 0.10 K/ L 0.01-0.08 uzzd=726) IMMATURE GRANULOCYTES-RELATIVE PERCENT (BEAKER) 0 % 0-1 (test gapq=8345) POCT-GLUCOSE [id number] 21:18:00 Test Item Value Reference Range Comments POC-GLUCOSE METER (BEAKER) 226 mg/dL 70-110 TESTED AT [facility] [address] [facility] (test wlqu=7306) [facility] [address] MR, BRAIN, WITHOUT [id number] 19:43:00FINAL REPORT MRI brain without contrast INDICATION: New onset seizure, statuspost opioid overdose. TECHNIQUE: Multiplanar, multisequence MR imaging of the brain was performed utilizing the following imaging sequences: Axial T2, FLAIR, GRE, and DWI; sagittal and coronal T1; coronal T2, FLAIR, and T1-weighted images through the temporal lobes were obtained per seizure protocol. COMPARISON: None available FINDINGS:There is no acute infarct, hematoma, extra-axial collection, hydrocephalus, or mass effect. There is altered signal in the right transverse and sigmoid sinuses. Whilepossibly due to slow flow, intravascular thrombus cannot be excluded. The major proximal [place] flow voids are maintained. Mild [...] Consider ENT follow up. Signed: Le Gregory Verified Date/Time: 02/12/2018 19:43:32 Reading Location: [facility] Radiology Reading Room POCT-GLUCOSE [id number] 19:01:00 Test Item Value Reference Range Comments POC-GLUCOSE METER (BEAKER) 362 mg/dL 70-110 TESTED AT [address] (test laao=0966) [facility] [address] EEG AWAKE AND [id number] 17:46:00Reason for exam:->SeizureShould this be performed at the bedside?->YesCHI [facility] EEG REPORTDATE OF TEST : [id number] OF REPORT: [id number]: [id number]: [id number] time: 14: 04Stop time: 14:24ICD-10: R56.9CPT Code: 64442QNCAQDF: 40 y old 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, hypothyroidism, hypercholesterolemia presented with witnessed seizures in the setting of altered mental status with suspected overdose.MEDICATIONS: keppraTECHNICAL SUMMARY: This is a digital video EEG recorded with 32 input channels reviewed with bipolar and referential montages using the modified combinatorial system nomenclature. DESCRIPTION OF RECORD: During the maximally alert state, 6-7 Hz posterior dominant rhythm, which is reactive but non- sustained. The background consists of generalized 5-7 Hz theta activity with intermixed 1.5-3 Hz delta activity. The background shows spontaneous reactivity. Drowsiness was characterized by increased frontocentral theta, vertex sharp transients . Stage2 sleep architecture was not recorded. HV: Hyperventilation was not performed.PHOTIC STIMULATION: Photic stimulation was not performed.VIDEO EVENTS RECORDED: noneELECTROCARDIOGRAM EVENTS: noneIMPRESSION: Abnormal Awake and drowsy EEG 1. Mild generalized slowing of background rhythm. 2. Slow posterior dominant rhythmCLINICAL CORRELATION : Mild generalized slowing of background rhythm is consistent with moderate degree of encephalopathy of non-specific etiology (hypoxia, infectious, toxic/ metabolic). An EEG without epileptiform discharges does not exclude the possibility of epilepsy. If the clinical suspicion of epilepsy remains, consider additional EEG recordings. Vicente Robles MDNeurophysiology FellowAttending note: I personally reviewed this EEG record in its entirety and I agree with the details of this report.Queenie Paiz MD, PhDClinical Neurophysiology/Epilepsy AttendingCHI [facility] 05: 46 PMPOCT-GLUCOSE [id number] 15:33:00 Test Item Value Reference Range Comments POC-GLUCOSE METER (BEAKER) 213 mg/dL 70-110 TESTED AT [facility] [address] [facility] (test zcof=9142) [facility] [address] TSH/FREE T4 IF [id number] 09:35:00 Test Item Value Reference Range Comments THYROID STIMULATING HORMONE (BEAKER) (test 4.03 uIU/mL 0.35-4.94 nkhk=223) HEMOGLOBIN [id number] 08:47:00 Test Item Value Reference Range Comments HEMOGLOBIN A1C (BEAKER) (test rndg=497) 6.5 % 4.3-6.1 POCT-GLUCOSE [id number] 07:55:00 Test Item Value Reference Range Comments POC-GLUCOSE METER (BEAKER) 219 mg/dL 70-110 TESTED AT [facility] [address] (test xwzs=3494) [facility] [address] [id number] 05:00:00 Test Item Value Reference Range Comments MAGNESIUM (BEAKER) (test bwnz=393) 2.1 mg/dL 1.6-2.6 BASIC METABOLIC [id number] 05:00:00 Test Item Value Reference Range Comments SODIUM (BEAKER) (test 139 meq/L 136-145 caji=621) POTASSIUM (BEAKER) (test 4.1 meq/L 3.5-5.1 obmw=105) CHLORIDE (BEAKER) (test 109 meq/L 98-107 mrzx=449) CO2 (BEAKER) (test 25 meq/L 22-29 wnsg=635) BLOOD UREA NITROGEN 7 mg/dL 7-21 (BEAKER) (test pesl=493) CREATININE (BEAKER) (test 0.81 mg/dL 0.57-1.25 niki=301) GLUCOSE RANDOM (BEAKER) 167 mg/dL 70-105 (test lkmf=654) CALCIUM (BEAKER) (test 9.0 mg/dL 8.4-10.2 mqzx=989) EGFR (BEAKER) (test 104 mL/min/1.73 sq m ESTIMATED GFR IS NOT jqgu=0391) ACCURATE CREATININE CLEARANCE IN PREDICTING GLOMERULAR FILTRATION RATE. ESTIMATED GFR IS NOT APPLICABLE FOR DIALYSIS PATIENTS. CBC W/PLT COUNT & AUTO [id number] 04:40:00 Test Item Value Reference Range Comments WHITE BLOOD CELL COUNT (BEAKER) (test fghm=121) 11.3 K/ L 3.5-10.5 RED BLOOD CELL COUNT (BEAKER) (test umly=148) 4.09 M/ L 4.63-6.08 HEMOGLOBIN (BEAKER) (test dsmz=863) 13.1 GM/DL 13.7-17.5 HEMATOCRIT (BEAKER) (test rmzi=199) 39.8 % 40.1-51.0 MEAN CORPUSCULAR VOLUME (BEAKER) (test nlyt=437) 97.3 fL 79.0-92.2 MEAN CORPUSCULAR HEMOGLOBIN (BEAKER) (test 32.0 pg 25.7-32.2 szme=472) MEAN CORPUSCULAR HEMOGLOBIN CONC (BEAKER) (test 32.9 GM/DL 32.3-36.5 qmyj=423) RED CELL DISTRIBUTION WIDTH (BEAKER) (test 12.8 % 11.6-14.4 xdkb=266) PLATELET COUNT (BEAKER) (test mxgy=847) 344 K/CU MM 150-450 MEAN PLATELET VOLUME (BEAKER) (test geru=847) 9.5 fL 9.4-12.4 NUCLEATED RED BLOOD CELLS (BEAKER) (test 0 /100 WBC 0-0 iqct=128) NEUTROPHILS RELATIVE PERCENT (BEAKER) (test 61 % ykgh=770) LYMPHOCYTES RELATIVE PERCENT (BEAKER) (test 24 % qkhu=760) MONOCYTES RELATIVE PERCENT (BEAKER) (test 8 % vmbt=316) EOSINOPHILS RELATIVE PERCENT (BEAKER) (test 7 % gebr=039) BASOPHILS RELATIVE PERCENT (BEAKER) (test 1 % dltk=642) NEUTROPHILS ABSOLUTE COUNT (BEAKER) (test 6.86 K/ L 1.78-5.38 xidh=111) LYMPHOCYTES ABSOLUTE COUNT (BEAKER) (test 2.67 K/ L 1.32-3.57 fjkh=647) MONOCYTES ABSOLUTE COUNT (BEAKER) (test 0.85 K/ L 0.30-0.82 qzbd=848) EOSINOPHILS ABSOLUTE COUNT (BEAKER) (test 0.79 K/ L 0.04-0.54 hgrn=755) BASOPHILS ABSOLUTE COUNT (BEAKER) (test 0.07 K/ L 0.01-0.08 vwcl=182) IMMATURE GRANULOCYTES-RELATIVE PERCENT (BEAKER) 0 % 0-1 (test voal=5912) POCT-GLUCOSE [id number] 04:31:00 Test Item Value Reference Range Comments POC-GLUCOSE METER (BEAKER) 183 mg/dL 70-110 TESTED AT [facility] [address] [facility] (test jlkr=8372) [facility] [address] RAD, ABDOMEN/KUB, 1 VIEW [id number] 01:33:00Reason for exam:->Abdominal distension, obtundationFINAL REPORT CLINICAL HISTORY: Abdominal distension, obtundation TECHNIQUE: [...] in the pelvis. Signed: Wilfredo De Leon MDReport Verified Date/ Time: 02/12/2018 01:33:19 Reading Location: [address] Transitional Reading Room POCT-GLUCOSE [id number] 00:49:00 Test Item Value Reference Range Comments POC-GLUCOSE METER (BEAKER) 346 mg/dL 70-110 TESTED AT [facility] [address] [facility] (test osld=0575) [facility] [address] CBC W/PLT COUNT & AUTO [id number] 00:44:00 Test Item Value Reference Range Comments WHITE BLOOD CELL COUNT (BEAKER) (test bcxk=514) 14.3 K/ L 3.5-10.5 RED BLOOD CELL COUNT (BEAKER) (test xyxo=186) 4.26 M/ L 4.63-6.08 HEMOGLOBIN (BEAKER) (test ngqo=523) 13.8 GM/DL 13.7-17.5 HEMATOCRIT (BEAKER) (test swlu=275) 42.1 % 40.1-51.0 MEAN CORPUSCULAR VOLUME (BEAKER) (test ptip=085) 98.8 fL 79.0-92.2 MEAN CORPUSCULAR HEMOGLOBIN (BEAKER) (test 32.4 pg 25.7-32.2 rlha=588) MEAN CORPUSCULAR HEMOGLOBIN CONC (BEAKER) (test 32.8 GM/DL 32.3-36.5 qwzl=942) RED CELL DISTRIBUTION WIDTH (BEAKER) (test 12.9 % 11.6-14.4 hxfs=456) PLATELET COUNT (BEAKER) (test mxuk=189) 366 K/CU MM 150-450 MEAN PLATELET VOLUME (BEAKER) (test nitj=778) 9.8 fL 9.4-12.4 NUCLEATED RED BLOOD CELLS (BEAKER) (test 0 /100 WBC 0-0 wgaw=166) NEUTROPHILS RELATIVE PERCENT (BEAKER) (test 74 % hyvq=121) LYMPHOCYTES RELATIVE PERCENT (BEAKER) (test 13 % yznu=539) MONOCYTES RELATIVE PERCENT (BEAKER) (test 7 % ymki=752) EOSINOPHILS RELATIVE PERCENT (BEAKER) (test 5 % dsgo=561) BASOPHILS RELATIVE PERCENT (BEAKER) (test 1 % diol=088) NEUTROPHILS ABSOLUTE COUNT (BEAKER) (test 10.60 K/ L 1.78-5.38 pson=117) LYMPHOCYTES ABSOLUTE COUNT (BEAKER) (test 1.80 K/ L 1.32-3.57 sswk=654) MONOCYTES ABSOLUTE COUNT (BEAKER) (test 1.06 K/ L 0.30-0.82 okbc=995) EOSINOPHILS ABSOLUTE COUNT (BEAKER) (test 0.69 K/ L 0.04-0.54 vliz=957) BASOPHILS ABSOLUTE COUNT (BEAKER) (test 0.09 K/ L 0.01-0.08 esxv=303) IMMATURE GRANULOCYTES-RELATIVE PERCENT (BEAKER) 0 % 0-1 (test yjqd=9582) RAPID DRUG SCREEN, [id number] 00:35:00 Test Item Value Reference Range Comments BARBITURATE URINE (BEAKER) (test tnuo=817) Negative Negative BENZODIAZEPINE SCREEN URINE (BEAKER) (test Negative Negative jjqy=304) COCAINE (METAB.) SCREEN (BEAKER) (test vngo=8350) Negative Negative METHADONE SCREEN (BEAKER) (test rmle=1891) Negative Negative OPIATE SCREEN URINE (BEAKER) (test vidu=254) Negative Negative CANNABINOID SCREEN URINE (BEAKER) (test wmsc=201) Negative Negative AMPH/METHAMPH SCREEN (BEAKER) (test khmx=0855) Negative Negative PHENCYCLIDINE SCREEN URINE (BEAKER) (test glxg=461) Negative Negative OXYCODONE SCREEN URINE (BEAKER) (test pidp=7571) Negative Negative DRUG CUTOFF CONC.Cocaine 300 ng/mL Cannabinoid 50 ng/mL Benzodiazepine 200 ng/mLBarbiturate 200 ng/ mLPhencyclidine 25 ng/mLOpiate 300 ng/mLMethadone 300 ng/mLAmphetamine/ 1000 ng/mL MethamphetamineOxycodone 300 ng/mLThis assay provides an unconfirmed qualitative test result for the clinical management of patients in emergency situations. Chain of custody not maintained. Some wsrj-jmd-zrqmlak medications, as well as adulterants, may cause inaccurate results. Clinical correlation should be applied. A more comprehensive drug screen or confirmation of a detected drug may be performed upon request.TROPONIN [id number] 00:15:00 Test Item Value Reference Range Comments TROPONIN I (BEAKER) (test zdxy=330) < ng/mL 0.00-0.03 Troponin I (TnI) levels must be interpreted [...] failure, acidosis, acute neurological disease, and persistent tachyarrhythmia.COMPREHENSIVE METABOLIC [id number] 00:09:00 Test Item Value Reference Range Comments TOTAL PROTEIN (BEAKER) 6.9 gm/dL 6.0-8.3 (test klto=234) ALBUMIN (BEAKER) (test 3.8 g/dL 3.5-5.0 bxmy=8362) ALKALINE PHOSPHATASE 95 U/L 40-150 (BEAKER) (test oaxv=703) BILIRUBIN TOTAL (BEAKER) 0.6 mg/dL 0.2-1.2 (test gsit=847) SODIUM (BEAKER) (test 135 meq/L 136-145 bygz=132) POTASSIUM (BEAKER) (test 5.0 meq/L 3.5-5.1 qbjk=746) CHLORIDE (BEAKER) (test 104 meq/L 98-107 cmyf=987) CO2 (BEAKER) (test 25 meq/L 22-29 adhy=263) BLOOD UREA NITROGEN 8 mg/dL 7-21 (BEAKER) (test eyuj=302) CREATININE (BEAKER) (test 1.03 mg/dL 0.57-1.25 kjyy=106) GLUCOSE RANDOM (BEAKER) 292 mg/dL 70-105 (test etbt=113) CALCIUM (BEAKER) (test 9.2 mg/dL 8.4-10.2 mbgr=426) AST (SGOT) (BEAKER) (test 23 U/L 5-34 gvxe=173) ALT (SGPT) (BEAKER) (test 17 U/L 6-55 rvpq=136) EGFR (BEAKER) (test 78 mL/min/1.73 sq m ESTIMATED GFR IS NOT gwgh=8748) ACCURATE CREATININE CLEARANCE IN PREDICTING GLOMERULAR FILTRATION RATE. ESTIMATED GFR IS NOT APPLICABLE FOR DIALYSIS PATIENTS. URINALYSIS W/ [id number] 00:06:00 Test Item Value Reference Range Comments COLOR (BEAKER) (test hfjn=954) Light Yellow CLARITY (BEAKER) (test lsin=382) Clear SPECIFIC GRAVITY UA (BEAKER) (test denu=873) 1.007 1.001-1.035 PH UA (BEAKER) (test qeaf=085) 6.5 5.0-8.0 PROTEIN UA (BEAKER) (test cmdk=466) Negative Negative GLUCOSE UA (BEAKER) (test psra=696) 500 mg/dL Negative KETONES UA (BEAKER) (test uqwl=172) Negative Negative BILIRUBIN UA (BEAKER) (test lsns=125) Negative Negative BLOOD UA (BEAKER) (test eley=749) Negative Negative NITRITE UA (BEAKER) (test teoo=074) Negative Negative LEUKOCYTE ESTERASE UA (BEAKER) (test vgar=519) Negative Negative UROBILINOGEN UA (BEAKER) (test mykv=571) 0.2 mg/dL 0.2-1.0 RBC UA (BEAKER) (test tpix=672) < /HPF WBC UA (BEAKER) (test mhnv=009) 1 /HPF MUCUS (BEAKER) (test lotn=5691) Rare SOURCE(BEAKER) (test xkuv=4901) RAD, CHEST, 1 VIEW, NON [id number] 23:11:00Reason for exam:->Obtundation with coarse respirations, baselineShould this be performed at the bedside?-> YesFINAL REPORT RAD, CHEST, 1 VIEW, NON DEPT INDICATION: Obtundation with coarserespirations, baseline COMPARISON: None. FINDINGS: Portable frontal view of the chest. IMPRESSION: Support Lines: None. Lungs and pleura: Clear lungs. No pneumothorax.Heart and mediastinum: Unremarkable. Additional findings: Fluid and gaseous distention of the gastric lumen. Signed: JR Lozano [facility] Verified Date/Time: 02/11/2018 23:11:04 Reading Location: [address]Reading [address]
[2018-02-19] MEDS ORDERED: NA CHLORIDE 0.9% 2,000 ML ONE (18:01)
[2018-02-19] MEDS ORDERED: levETIRAcetam 500 MG TAB ONE (18:03)
--- NOTE | 2018-02-19 18:05 | RAD REPORT ---
EXAM DESCRIPTION: CT - Head Brain Wo Cont - 02/19/2018 5:56 pm CLINICAL HISTORY: SEIZURE COMPARISON: Head Brain Wo Cont dated 08/11/2017; Head Brain Wo Cont dated 05/06/2017; Head C Spine Mpr Wo Con dated 02/11/2018 TECHNIQUE: All CT scans are performed using dose optimization technique as appropriate and may inclu de automated exposure control or mA/KV adjustment according to patient size. FINDINGS: No intracranial hemorrhage, hydrocephalus or extra-axial fluid collection.No areas of brai n edema or evidence of midline shift. Moderate opacification the right maxillary antrum right ethmoid air cells compatible with chronic sin usitis. The calvarium is intact. IMPRESSION: No acute intracranial abnormality. Chronic right-sided sinusitis.
[2018-02-19 18:17] LABS: Absolute Monocytes 0.7 K/uL (0.1-1.3); Absolute Neutrophil 5.6 K/uL (1.8-8.0); Basophils % 0.4 % (0-1.3); Eosinophils % 7.4 % (0-4.4); Hematocrit 42.3 % (39.6-49.0); Lymphocytes % 22.6 % (15.3-44.8); MCH 32.5 pg (27.0-35.0); MCV 94.8 fL (80-100); MPV 8.8 fL (7.6-11.3); Monocytes % 7.6 % (3.3-12.3); RBC Red Blood Cell Count 4.46 M/uL (4.33-5.43)
[2018-02-19 18:37] LABS: Albumin 3.3 g/dL (3.4-5.0); Bilirubin Direct 0.1 mg/dL (0-0.2); Bilirubin Total 0.3 mg/dL (0.2-1.0); Phosphorus 1.9 mg/dL (2.5-4.9); Protein, Total 7.7 g/dL (6.4-8.2)
--- NOTE | 2018-02-19 19:00 | EDPHYS ---
Physician Documentation [facility] Name: Surjit Stubbs Age: 43 yrs Sex: Male : 1975 Arrival Date: 02/19/2018 Time: 17:08 Bed 17 Private MD: ED Physician Jose Loera HPI: 02/19 17:40 This 43 yrs old Male presents to ER via EMS with complaints of Probable ma2 Seizure. 17:40 The patient presents after having a single isolated seizure. Character of seizure(s): ma2 Loss of consciousness: the patient did not lose consciousness, Motor activity: generalized, Incontinence: none. Seizure onset: just prior to arrival. Context: the seizure(s) was witnessed, by family. Seizure Hx: Last seizure: The patient's last seizure was approximately 1 week(s) ago. Associated injury: The patient did not suffer any apparent associated injury. Current symptoms: Currently, the patient is not experiencing any symptoms. The patient has experienced a previous episode. has 2 seizures one was 5 yrs ago and the second one was last week. today is the 3rd seizure lasted for 1 min grand mal, now back to baseline, he takes insuline and tylenol 3 no alcohol or drugs. he has no symptoms right now. last week had a normal head CT and MRI and normal EEG. . Historical: - Allergies: 17:13 No Known Allergies; bp - Home Meds: 17:13 [place] Thyroid 60 mg Oral tab [Active]; gemfibrozil 600 mg Oral tab 1 tab 2 times per bp day [Active]; Glucagon Emergency Kit (human) 1 mg IM kit 1 mL [Active]; Novolog Sub-Q [Active]; Multiple Vitamins Oral tab [Active]; acetaminophen-codeine 300-30 mg Oral tab 1 tab every 6 hours [Active]; - PMHx: 17:13 High Cholesterol; Hypothyroidism; Diabetes - IDDM; bp - Immunization history:: Adult Immunizations up to date. - Social history:: Smoking status: unknown Patient/guardian denies using alcohol, street drugs, The patient lives with family. - Ebola Screening: : Patient negative for fever greater than or equal to 101.5 degrees Fahrenheit, and additional compatible Ebola Virus Disease symptoms Patient denies exposure to infectious person Patient denies travel to an Ebola-affected area in the 21 days before illness onset No symptoms or risks identified at this time. - Family history:: not pertinent. ROS: 17:40 Constitutional: Negative for fever, chills, and weight loss, Cardiovascular: Negative ma2 for chest pain, palpitations, and edema, Respiratory: Negative for shortness of breath, cough, wheezing, and pleuritic chest pain, Abdomen/GI: Negative for abdominal pain, nausea, diarrhea, and constipation. 17:40 Neuro: Positive for seizure, Negative for altered mental status, dizziness, gait disturbance, loss of consciousness, speech changes, syncope, tinnitus, visual changes, weakness. 17:40 All other systems are negative. Exam: 17:40 Constitutional: This is a well developed, well nourished patient who is awake, alert, ma2 and in no acute distress. Chest/axilla: Normal chest wall appearance and motion. Nontender with no deformity. No lesions are appreciated. Cardiovascular: Regular rate and rhythm with a normal S1 and S2. No gallops, murmurs, or rubs. Normal PMI, no JVD. No pulse deficits. Respiratory: Lungs have equal breath sounds bilaterally, clear to auscultation and percussion. No rales, rhonchi or wheezes noted. No increased work of breathing, no retractions or nasal flaring. Abdomen/GI: Soft, non-tender, with normal bowel sounds. No distension or tympany. No guarding or rebound. No evidence of tenderness throughout. Back: No spinal tenderness. No costovertebral tenderness. Full range of motion. Skin: Warm, dry with normal turgor. Normal color with no rashes, no lesions, and no evidence of cellulitis. MS/ Extremity: Pulses equal, no cyanosis. Neurovascular intact. Full, normal range of motion. 17:40 Neuro: Orientation: is normal, to person, place, time \T\ situation. Mentation: is normal, Cranial nerves: no acute changes, extraocular movements Cerebellar function: Motor: moves all fours, Sensation: is normal, seizure activity, is not displayed by the patient. Vital Signs: 17:13 BP 134 / 92; Pulse 104; Resp 16; Temp 97.9; Pulse Ox 93% on R/A; Weight 68.04 kg; bp 17:30 BP 147 / 94; Pulse 102; Resp 13; Pulse Ox 92% ; bp 18:00 BP 141 / 94; Pulse 96; Resp 14; Pulse Ox 97% on R/A; bp 19:00 BP 146 / 94; Pulse 87; Resp 13; Pulse Ox 96% ; bp Gómez Coma Score: 17:13 Eye Response: spontaneous(4). Verbal Response: oriented(5). Motor Response: obeys bp commands(6). Total: 15. MDM: 17:08 Patient medically screened. ma2 17:40 Differential diagnosis: drug overdose, seizure, TIA. ma2 18:58 Data reviewed: vital signs, nurses notes. Data interpreted: monitoring analyst:. ma2 Counseling: I had a detailed discussion with the patient and/or guardian regarding: the historical points, exam findings, and any diagnostic results supporting the discharge/admit diagnosis, the presence of at least one elevated blood pressure reading (>120/80) during this emergency department visit, the need for outpatient follow up. Response to treatment: the patient's symptoms have resolved after treatment. 02/19 17:37 Order name: Basic Metabolic Panel; Complete Time: 18:52 ma2 02/19 17:37 Order name: CBC with Diff; Complete Time: 18:30 ma2 02/19 17:37 Order name: Hepatic Function; Complete Time: 18:52 ma2 02/19 17:37 Order name: PT-INR; Complete Time: 18:37 ma2 02/19 17:37 Order name: Ptt, Activated; Complete Time: 18:37 ma2 02/19 17:37 Order name: Magnesium; Complete Time: 18:52 ma2 02/19 17:37 Order name: CT Head Brain wo Cont; Complete Time: 18:22 ma2 02/19 17:37 Order name: IV Saline Lock; Complete Time: 17:52 ma2 02/19 17:37 Order name: Labs collected and sent; Complete Time: 18:09 ma2 02/19 17:37 Order name: Phosphorus; Complete Time: 18:52 ma2 Administered Medications: 18:00 Drug: NS 0.9% 1000 ml Route: IV; Rate: 1 bolus; Site: left antecubital; bp 19:03 Follow up: IV Status: Completed infusion; IV Intake: 1000ml bp 18:00 Drug: NS 0.9% 1000 ml Route: IV; Rate: 1 bolus; Site: left antecubital; bp 19:04 Follow up: IV Status: Completed infusion; IV Intake: 1000ml bp 18:00 Drug: Keppra 1000 mg Route: PO; bp 19:04 Follow up: Response: No adverse reaction bp 18:08 Not Given (Other Intervention Used): Keppra 1000 mg IV at calculated rate once bp Disposition: 02/19/18 18:59 Discharged to Home. Impression: Epilepsy and recurrent seizures. - Condition is Stable. - Discharge Instructions: Seizure, Adult. - Prescriptions for Keppra 500 mg Oral Tablet - take 1 tablet by ORAL route every 12 hours; 20 tablet. - Medication Reconciliation Form, Thank You Letter, Antibiotic Education, Prescription Opioid Use form. - Follow up: Chava Granda MD; When: Tomorrow; Reason: Continuance of care. Signatures: Dispatcher [employer] Dion Rolle RN RN Jose Frank MD MD ma2 Corrections: (The following items were deleted from the chart) 19:09 18:59 02/19/2018 18:59 Discharged to Home. Impression: Epilepsy and recurrent seizures. bp Condition is Stable. Forms are Medication Reconciliation Form, Thank You Letter, Antibiotic Education, Prescription Opioid Use. Follow up: Chava Granda; When: Tomorrow; Reason: Continuance of care. ma2
--- NOTE | 2018-02-19 19:00 | ER ---
Nurse's Notes [facility] Name: Surjit Stubbs Age: 43 yrs Sex: Male : 1975 Arrival Date: 02/19/2018 Time: 17:08 Bed 17 Private MD: Diagnosis: Epilepsy and recurrent seizures Presentation: 02/19 17:09 Presenting complaint: EMS states: SEIZURE LIKE ACTIVITY. Transition of care: patient bp was not received from another setting of care. Onset of symptoms is unknown. Risk Assessment: Do you want to hurt yourself or someone else? Patient reports no desire to harm self or others. Initial Sepsis Screen: Does the patient meet any 2 criteria? No. Patient's initial sepsis screen is negative. Does the patient have a suspected source of infection? No. Patient's initial sepsis screen is negative. Care prior to arrival: IV initiated. 20 GA, in the left antecubital area, Glucose check: 159. 17:09 Method Of Arrival: EMS: [facility] bp 17:09 Acuity: TOI 3 bp Triage Assessment: 17:13 General: Appears in no apparent distress. comfortable, unkempt, Behavior is calm, bp cooperative. Pain: Denies pain. EENT: No deficits noted. Neuro: Level of Consciousness is awake, alert, obeys commands, Oriented to person, place, time, situation, Appropriate for age. Cardiovascular: No deficits noted. Respiratory: Airway is patent Respiratory effort is even, unlabored, Respiratory pattern is regular, symmetrical. GI: No signs and/or symptoms were reported involving the gastrointestinal system. : No signs and/or symptoms were reported regarding the genitourinary system. Derm: No deficits noted. Musculoskeletal: Circulation, motion, and sensation intact. Range of motion: intact in all extremities. Historical: - Allergies: 17:13 No Known Allergies; bp - Home Meds: 17:13 [place] Thyroid 60 mg Oral tab [Active]; gemfibrozil 600 mg Oral tab 1 tab 2 times per bp day [Active]; Glucagon Emergency Kit (human) 1 mg IM kit 1 mL [Active]; Novolog Sub-Q [Active]; Multiple Vitamins Oral tab [Active]; acetaminophen-codeine 300-30 mg Oral tab 1 tab every 6 hours [Active]; - PMHx: 17:13 High Cholesterol; Hypothyroidism; Diabetes - IDDM; bp - Immunization history:: Adult Immunizations up to date. - Social history:: Smoking status: unknown Patient/guardian denies using alcohol, street drugs, The patient lives with family. - Ebola Screening: : Patient negative for fever greater than or equal to 101.5 degrees Fahrenheit, and additional compatible Ebola Virus Disease symptoms Patient denies exposure to infectious person Patient denies travel to an Ebola-affected area in the 21 days before illness onset No symptoms or risks identified at this time. - Family history:: not pertinent. Screenin:16 Abuse screen: Denies threats or abuse. Denies injuries from another. Nutritional bp screening: No deficits noted. Tuberculosis screening: No symptoms or risk factors identified. Fall Risk No fall in past 12 months (0 pts). Secondary diagnosis (15 points) seizures, IV access (20 points). Ambulatory Aid- None/Bed Rest/Nurse Assist (0 pts). Gait- Normal/Bed Rest/Wheelchair (0 pts) Mental Status- Oriented to own ability (0 pts). Total Beck Fall Scale indicates Low Risk Score (25-44 pts). Fall prevention measures have been instituted. Side Rails Up X 2 Placed close to Nursing Station Frequent Obs/Assesments occuring Family Present and informed to notify staff if they need to leave bedside As available Patient and Family Educated on Fall Prevention Program and strategies. Assessment: 17:10 General: Appears in no apparent distress. comfortable, unkempt, Behavior is calm, bp cooperative, appropriate for age, flat. Pain: Denies pain. Neuro: Level of Consciousness is awake, alert, obeys commands, Oriented to person, place, time, situation, Appropriate for age. Cardiovascular: No deficits noted. Rhythm is sinus rhythm. Respiratory: Airway is patent Respiratory effort is even, unlabored, Respiratory pattern is regular, symmetrical. GI: No signs and/or symptoms were reported involving the gastrointestinal system. : No signs and/or symptoms were reported regarding the genitourinary system. EENT: No deficits noted. Derm: No deficits noted. Musculoskeletal: Circulation, motion, and sensation intact. Range of motion: intact in all extremities. 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 bp Vital Signs: 17:13 BP 134 / 92; Pulse 104; Resp 16; Temp 97.9; Pulse Ox 93% on R/A; Weight 68.04 kg; bp 17:30 BP 147 / 94; Pulse 102; Resp 13; Pulse Ox 92% ; bp 18:00 BP 141 / 94; Pulse 96; Resp 14; Pulse Ox 97% on R/A; bp 19:00 BP 146 / 94; Pulse 87; Resp 13; Pulse Ox 96% ; bp [place] Coma Score: 17:13 Eye Response: spontaneous(4). Verbal Response: oriented(5). Motor Response: obeys bp commands(6). Total: 15. ED Course: 17:08 Patient arrived in ED. bp 17:08 Jose Loera MD is Attending Physician. ma2 17:11 Triage completed. bp 17:13 Arm band placed on. bp 17:16 Patient has correct armband on for positive identification. Bed in low position. Call bp light in reach. Side rails up X2. Adult w/ patient. 17:16 Maintain EMS IV. Dressing intact. Good blood return noted. Site clean \T\ dry. Gauge \T\ bp site: 20 GAUGE LEFT AC. 17:30 Seizure precautions initiated. bp 17:51 Dion Parrish, MELANIE is Primary Nurse. bp 17:56 CT completed. Patient tolerated procedure well. Patient moved to CT via stretcher. nj Patient moved back from CT. 17:56 CT Head Brain wo Cont In Process Unspecified. EDMS 18:59 Chava Granda MD is Referral Physician. ma2 19:02 No provider procedures requiring assistance completed. IV discontinued, intact, bp bleeding controlled, No redness/swelling at site. Pressure dressing applied. Administered Medications: 18:00 Drug: NS 0.9% 1000 ml Route: IV; Rate: 1 bolus; Site: left antecubital; bp 19:03 Follow up: IV Status: Completed infusion; IV Intake: 1000ml bp 18:00 Drug: NS 0.9% 1000 ml Route: IV; Rate: 1 bolus; Site: left antecubital; bp 19:04 Follow up: IV Status: Completed infusion; IV Intake: 1000ml bp 18:00 Drug: Keppra 1000 mg Route: PO; bp 19:04 Follow up: Response: No adverse reaction bp 18:08 Not Given (Other Intervention Used): Keppra 1000 mg IV at calculated rate once bp Intake: 19:03 IV: 1000ml; Total: 1000ml. bp 19:04 IV: 1000ml; Total: 2000ml. bp Outcome: 18:59 Discharge ordered by MD. [email or web address] 19:02 Discharged to home via wheelchair, with family. bp 19:02 Condition: stable 19:02 Discharge instructions given to patient, family, Instructed on discharge instructions, follow up and referral plans. medication usage, Demonstrated understanding of instructions, follow-up care, medications, Prescriptions given X 1. 19:09 Patient left the ED. bp Signatures: Dispatcher [employer] EDMS Robin Palacios Brian, RN RN bp Jose Loera MD MD ma2 Corrections: (The following items were deleted from the chart) 17:20 17:13 68.04 kg; bp bp 18:14 17:13 Pulse 104bpm; Resp 16bpm; Pulse Ox 93% RA; Temp 97.9F; 68.04 kg; bp bp 19:03 19:02 Discharge instructions given to patient, family, Instructed on discharge bp instructions, follow up and referral plans. medication usage, bp
[2018-02-20 14:56] VITALS: BP 146/94; TEMP 97.9; O2SAT 96
== END 2018-02-19 19:09 | disposition home or self-care (01) ==
LOC: ER 17:06
DX: G40.802 Other epilepsy, not intractable, without status epilepticus (principal); E03.9 Hypothyroidism, unspecified; E11.9 Type 2 diabetes mellitus without complications; E78.00 Pure hypercholesterolemia, unspecified; Z79.4 Long term (current) use of insulin; Z79.82 Long term (current) use of aspirin
CPT/HCPCS: 36415; 70450; 80048; 80076; 83735; 84100; 85025; 85610; 85730; 96360; 99285; J7030

== ENCOUNTER 2018-04-22 20:08 | Emergency (ER) | payer SELFPAY ==
--- OUTSIDE RECORDS SUMMARY | 2018-04-22 20:11 | XMS REPORT | Clinical Summary ---
:1975 Author Organization [facility] Address [address] [place] [address] Care Team Providers Name Role Phone Unavailable Primary Care Provider Unavailable Allergies No Known Allergies Medications Medication Sig Dispensed Refills Start Date End Date Status thyroid, pork, 120 Take 120 mg by mouth 0 Active mg Tab daily. gemfibrozil (LOPID) Take 600 mg by mouth 0 Active 600 MG tablet 2 (two) times daily before meals. insulin detemir Inject 6 Units 0 Active U-100 (LEVEMIR) 100 subcutaneously unit/mL injection nightly. insulin aspart Inject 3 Units 0 Active U-100 (NOVOLOG) 100 subcutaneously 3 unit/mL InPn (three) times daily before meals. acetaminophen-codei Take 1 tablet by 0 Active ne (TYLENOL #4) mouth every 6 (six) 300-60 mg per hours as needed for tablet Pain. 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 Encounters Date Type Specialty Care Team Description 02/11/2018 - Hospital Encounter General Internal Harry White Acute encephalopathy; 02/13/2018 Medicine MD Meron Provoked seizure (HCC); Ignacio, Hyperglycemia; Leighton Lamas, Convulsive seizure disorder with status epilepticus (HCC) ; Leukocytosis, unspecified type after 04/21/2017 Immunizations Name Dates Previously Given Next Due Influenza Four-QIV Non-PF 5+ YR 02/13/2018 Social History Tobacco Use Types Packs/Day Years Used Date Current Every Day Smoker Smokeless Tobacco: Current User Sex Assigned at Date Recorded Not on file Job Start Date Occupation Industry Not on file Not on file Not on file Travel History Travel Start Travel End No recent travel history available. Last Filed Vital Signs Vital Sign Reading [...] - Plan of Treatment Not on file Procedures Procedure Name Priority Date/Time Associated Comments Diagnosis RHYTHM STRIP - SCAN 02/14/2018 1:22 PM CDT POCT-GLUCOSE METER Routine 02/13/2018 4:58 Results for this PM CDT procedure are in the results section. CT/CTA BRAIN MARCOS 02/13/2018 4:35 Results for this PM CDT procedure are in the results section. POCT-GLUCOSE METER Routine 02/13/2018 1:03 Results for this PM CDT procedure are in the results section. POCT-GLUCOSE METER Routine 02/13/2018 8:15 Results for this AM CDT procedure are in the results section. CBC W/PLT COUNT & AUTO Routine 02/13/2018 6:40 Results for this DIFFERENTIAL AM CDT procedure are in the results section. IMMATURE RETICULOCYTE Routine 02/13/2018 6:40 Results for this FRACTION AM CDT procedure are in the results section. IRON, TIBC, % SAT. Routine 02/13/2018 6:40 Results for this (WITHOUT FERRITIN) AM CDT procedure are in the results section. LIPID PANEL Routine 02/13/2018 6:40 Results for this AM CDT procedure are in the results section. CBC W/PLT COUNT & AUTO Routine 02/13/2018 6:40 Results for this DIFFERENTIAL AM CDT procedure are in the results section. BASIC METABOLIC PANEL Routine 02/13/2018 6:40 Results for this (7) AM CDT procedure are in the results section. POCT-GLUCOSE METER Routine 02/12/2018 9:16 Results for this PM CDT procedure are in the results section. MR BRAIN WITHOUT IV MARCOS 02/12/2018 7:08 Results for this CONTRAST PM CDT procedure are in the results section. POCT-GLUCOSE METER Routine 02/12/2018 7:00 Results for this PM CDT procedure are in the results section. EEG AWAKE AND DROWSY Routine 02/12/2018 2:47 Results for this PM CDT procedure are in the results section. POCT-GLUCOSE METER Routine 02/12/2018 12:39 Results for this PM CDT procedure are in the results section. TSH/FREE T4 IF Routine 02/12/2018 8:49 Results for this INDICATED AM CDT procedure are in the results section. POCT-GLUCOSE METER Routine 02/12/2018 7:53 Results for this AM CDT procedure are in the results section. CBC W/PLT COUNT & AUTO Routine 02/12/2018 4:20 Results for this DIFFERENTIAL AM CDT procedure are in the results section. CBC W/PLT COUNT & AUTO Routine 02/12/2018 4:20 Results for this DIFFERENTIAL AM CDT procedure are in the results section. MAGNESIUM Routine 02/12/2018 4:20 Results for this AM CDT procedure are in the results section. BASIC METABOLIC PANEL Routine 02/12/2018 4:20 Results for this (7) AM CDT procedure are in the results section. POCT-GLUCOSE METER Routine 02/12/2018 4:12 Results for this AM CDT procedure are in the results section. XR ABDOMEN 1 VIEW STAT 02/12/2018 1:26 Results for this AM CDT procedure are in the results section. POCT-GLUCOSE METER Routine 02/12/2018 12:47 Results for this AM CDT procedure are in the results section. CBC W/PLT COUNT & AUTO Routine 02/11/2018 11:42 Results for this DIFFERENTIAL PM CDT procedure are in the results section. TROPONIN I Routine 02/11/2018 11:42 Results for this PM CDT procedure are in the results section. HEMOGLOBIN A1C Routine 02/11/2018 11:42 Results for this PM CDT procedure are in the results section. COMPREHENSIVE Routine 02/11/2018 11:42 Results for this METABOLIC PANEL PM CDT procedure are in the results section. CBC W/PLT COUNT & AUTO Routine 02/11/2018 11:42 Results for this DIFFERENTIAL PM CDT procedure are in the results section. BLOOD CULTURE Routine 02/11/2018 11:42 Results for this PM CDT procedure are in the results section. RAPID DRUG SCREEN, Routine 02/11/2018 11:17 Results for this URINE PM CDT procedure are in the results section. URINALYSIS W/ Routine 02/11/2018 11:15 Results for this MICROSCOPIC PM CDT procedure are in the results section. URINE CULTURE Routine 02/11/2018 11:15 Results for this PM CDT procedure are in the results section. XR CHEST 1 VIEW Routine 02/11/2018 10:54 Results for this PORTABLE/BEDSIDE PM CDT procedure are in the results section. after 04/21/2017 Results RHYTHM STRIP - SCAN (02/14/2018 1:22 PM CDT) Narrative Performed At POC-Glucose meter (02/13/2018 4:58 PM CDT)Only the most recent of9 resultswithin the time period is included. POC-Glucose Meter 232 (H)Comment: TESTED AT 70 - 110 mg/dL [facility] [address] [facility] [address] Specimen Blood Performing Organization Address City/State/[facility] Corporationcode Phone Number [address] [phone] CENTER CTA brain (02/13/2018 4:35 PM CDT) Narrative Performed At FINAL REPORT [facility] CTV brain 02/13/2018 4:35 PM CLINICAL INDICATION: [...] MD Report Verified Date/Time:02/13/2018 16:41:24 Reading Location: [facility] Radiology Reading Room Procedure Note Interface, External [...] Report Verified Date/Time: 02/13/2018 16:41:24 Reading Location: [facility] Radiology Reading Room Performing Organization Address City/State/Zipcode Phone Number [facility] Iron, TIBC, % sat. (without ferritin) (02/13/2018 6:40 AM CDT) Iron 49 40 - 160 ug/dL [facility] TIBC 231 (L) 250 - 450 ug/dL [facility] Iron % Saturation 21 20 - 55 % [facility] Specimen Blood Performing Organization Address City/[facility]/Zipcode Phone Number [facility] [address] [place] [address] [place] Immature reticulocyte fraction (02/13/2018 6:40 AM CDT) Immature Reticulocyte 8.600Comment: 2.300 - 13.400 % [facility] % Retic 1.4 0.5 - 1.8 % [facility] Specimen Blood Performing Organization Address City/State/Zipcode Phone Number [address] [address] [place] CBC with platelet count + automated diff (02/13/2018 6:40 AM CDT)Only the most recent of3 resultswithin the time period is included. WBC 8.5 3.5 - 10.5 K/L [facility] RBC 4.49 (L) 4.63 - 6.08 M/L [facility] Hemoglobin 14.5 13.7 - 17.5 GM/DL [facility] Hematocrit 44.1 40.1 - 51.0 % [facility] MCV 98.2 (H) 79.0 - 92.2 fL [facility] MCH 32.3 (H) 25.7 - 32.2 pg [facility] MCHC 32.9 32.3 - 36.5 GM/DL [facility] RDW 12.8 11.6 - 14.4 % [facility] Platelets 365 150 - 450 K/CU MM [facility] MPV 10.3 9.4 - 12.4 fL [facility] nRBC 0 0 - 0 /100 WBC [facility] % Neutros 59 % [facility] % Lymphs 23 % [facility] % Monos 8 % [facility] % Eos 9 % [facility] % Baso 1 % [facility] # Neutros 5.00 1.78 - 5.38 K/L [facility] # Lymphs 1.94 1.32 - 3.57 K/L [facility] # Monos 0.67 0.30 - 0.82 K/L [facility] # Eos 0.73 (H) 0.04 - 0.54 K/L [facility] # Baso 0.10 (H) 0.01 - 0.08 K/L [facility] Immature Granulocytes-Relative 0 0 - 1 % [facility] Specimen Blood Performing Organization Address City/[facility] Corporationcoma Phone Number [address] [address] [phone] CENTER Lipid panel (02/13/2018 6:40 AM CDT) Triglycerides 189Comment: Specimen slightly mg/dL [facility] Cholesterol 265Comment: Specimen slightly mg/dL [facility] HDL 46 mg/dL [facility] LDL Calculated 181 mg/dL [facility] Specimen Blood Narrative Performed At [facility] Triglyceride Reference Range: Low Risk <150 [id number] High Risk 200-499 Very High Risk>=500 Cholesterol Reference Range: Low Risk <200 [id number] High Risk>240 HDL Cholesterol Reference Range: Low Risk >=60 High Risk <40 LDL Cholesterol Reference Range: Optimal<100 Near [id number] Very High >=190 Performing Organization Address City/[facility] Corporationcoma Phone Number [address] [address] [place] Basic metabolic panel (02/13/2018 6:40 AM CDT)Only the most recent of2 resultswithin the time period is included. Sodium 134 (L) 136 - 145 meq/L [facility] Potassium 5.4 (H)Comment: Specimen 3.5 - 5.1 meq/L [facility] hemolyzed [facility] Chloride 101 98 - 107 meq/L [facility] CO2 26 22 - 29 meq/L [facility] BUN 9 7 - 21 mg/dL [facility] Creatinine 1.01Comment: Specimen 0.57 - 1.25 mg/dL [facility] hemolyzed [facility] Glucose 347 (H) 70 - 105 mg/dL [facility] Calcium 8.9 8.4 - 10.2 mg/dL [facility] EGFR 80Comment: ESTIMATED GFR IS mL/min/1.73 sq m [facility] NOT ACCURATE CREATININE [facility] CLEARANCE IN PREDICTING GLOMERULAR FILTRATION RATE. ESTIMATED GFR IS NOT APPLICABLE FOR DIALYSIS PATIENTS. Specimen Blood Performing Organization Address City/State/Zipcode Phone Number [facility] [address] [place] [address] [place] MR brain without IV contrast (02/12/2018 7:08 PM CDT) Narrative Performed At FINAL REPORT [facility] MRI brain without contrast INDICATION: New onset [...] thrombus cannot be excluded. The major proximal three affiliated of [place] flow voids are maintained. Mild [...] MD Report Verified Date/Time:02/12/2018 19:43:32 Reading Location: [facility] Radiology Reading Room Procedure Note Interface, External [...] thrombus cannot be excluded. The major proximal three affiliated of [place] flow voids are maintained. Mild [...] Report Verified Date/Time: 02/12/2018 19:43:32 Reading Location: [facility] Radiology Reading Room Performing Organization Address City/State/Zipcode Phone Number [facility] EEG AWAKE AND DROWSY (02/12/2018 2:47 PM CDT) Narrative Performed At [facility] EEG REPORT [facility] DATE OF TEST: 02-12-2018 DATE OF REPORT: 02-12-2018 ACC: [id number] EE Start time: 14:04 Stop time: 14:24 ICD-10: R56.9 CPT Code: 76676 HISTORY: 40 y old male with h/o [...] Queenie Paiz MD, PhD Clinical Neurophysiology/Epilepsy Attending [facility] Procedure Note Interface, External Ris In - 02/12/2018 5:46 PM CDT [facility] EEG REPORT DATE OF TEST: 02-12-2018 DATE OF REPORT: 02-12-2018 ACC: [id number] EE Start time: 14:04 Stop time: 14:24 ICD-10: R56.9 CPT Code: 04538 HISTORY: 40 y old male with h/o [...] Queenie Paiz MD, PhD Clinical Neurophysiology/Epilepsy Attending [facility] Performing Organization Address City/State/Zipcode Phone Number [facility] TSH/Free T4 If Indicated (02/12/2018 8:49 AM CDT) TSH 4.03 0.35 - 4.94 uIU/mL [facility] Specimen Blood - Arm, Right Performing Organization Address City/State/Zipcode Phone Number [address] [address] [phone] CENTER Magnesium (02/12/2018 4:20 AM CDT) Magnesium 2.1 1.6 - 2.6 mg/dL [facility] Specimen Blood Performing Organization Address City/State/Zipcode Phone Number [address] [address] [phone] CENTER XR abdomen / KUB 1 view (02/12/2018 1:26 AM CDT) Narrative Performed At FINAL REPORT [facility] CLINICAL HISTORY: Abdominal distension, obtundation TECHNIQUE: RAD, [...] MD Report Verified Date/Time:02/12/2018 01:33:19 Reading Location: [address] Reading Room Procedure Note Interface, External [...] Report Verified Date/Time: 02/12/2018 01:33:19 Reading Location: [facility] B1 C013T Transitional Reading Room Performing Organization Address [facility] Phone Number [facility] Troponin I (02/11/2018 11:42 PM CDT) Troponin I <0.01 0.00 - 0.03 ng/mL [facility] Specimen Blood Narrative Performed At [facility] Troponin I (TnI) levels must be interpreted [...] acidosis, acute neurological disease, and persistent tachyarrhythmia. Performing Organization Address [facility] Phone Number [address] [address] [phone] [place] Blood culture (02/11/2018 11:42 PM CDT) Result No growth in 5 days [facility] Specimen Blood - Arm, Left Performing Organization Address [facility] Phone Number [address] [address] [phone] [place] Hemoglobin A1c (02/11/2018 11:42 PM CDT) Hemoglobin A1C 6.5 (H) 4.3 - 6.1 % [facility] Specimen Blood Performing Organization Address [facility] Corporationco[facility] Phone Number [address] [address] [place] Comprehensive metabolic panel (02/11/2018 11:42 PM CDT) Protein, Total 6.9 6.0 - 8.3 gm/dL [facility] Albumin 3.8 3.5 - 5.0 g/dL [facility] Alkaline Phosphatase 95 40 - 150 U/L [facility] Total Bilirubin 0.6 0.2 - 1.2 mg/dL [facility] Sodium 135 (L) 136 - 145 meq/L [facility] Potassium 5.0 3.5 - 5.1 meq/L [facility] Chloride 104 98 - 107 meq/L [facility] CO2 25 22 - 29 meq/L [facility] BUN 8 7 - 21 mg/dL [facility] Creatinine 1.03 0.57 - 1.25 mg/dL [facility] Glucose 292 (H) 70 - 105 mg/dL [facility] Calcium 9.2 8.4 - 10.2 mg/dL [facility] AST 23 5 - 34 U/L [facility] ALT 17 6 - 55 U/L [facility] EGFR 78Comment: ESTIMATED GFR mL/min/1.73 sq m [facility] IS NOT ACCURATE [facility] CREATININE CLEARANCE IN PREDICTING GLOMERULAR FILTRATION RATE. ESTIMATED GFR IS NOT APPLICABLE FOR DIALYSIS PATIENTS. Specimen Blood Performing Organization Address City/State/Zipcode Phone Number [facility] [address] [place] [address] [phone] CENTER Rapid drug screen, urine (02/11/2018 11:17 PM CDT) Barbiturate Screen Negative Negative [facility] Benzodiazepine Screen Negative Negative [facility] Cocaine (Metab.) Screen Negative Negative [facility] Methadone Screen Negative Negative [facility] Opiate Screen Negative Negative [facility] Cannabinoid Screen Negative Negative [facility] Amph/Methamph Screen Negative Negative [facility] Phencyclidine Screen Negative Negative [facility] Oxycodone Screen Negative Negative [facility] Specimen Urine Narrative Performed At [facility]. Cocaine 300 ng/mL Ljdjlpvhgpu47 ng/mL Jussnhwatkdlhd979 ng/mL Barbiturate 200 ng/mL Xefhsrztgzmvy51 ng/mL Jmjign141 ng/mL Methadone 300 ng/mL Amphetamine/ 1000 ng/mL Methamphetamine Oxycodone 300 ng/mL This assay provides an unconfirmed qualitative test result for the clinical management of patients in emergency situations. Chain of custody not maintained. Some tioj-wqe-aomonjx medications, as well as adulterants, may cause inaccurate results. Clinical correlation should be applied. A more comprehensive drug screen or confirmation of a detected drug may be performed upon request. Performing Organization Address City/State/Zipcode Phone Number [facility] [address] [place] [address] CENTER Urinalysis w/ Microscopic (02/11/2018 11:15 PM CDT) Color, UA Light Yellow [facility] Clarity, UA Clear [facility] Specific [place], UA 1.007 1.001 - 1.035 [facility] pH, UA 6.5 5.0 - 8.0 [facility] Protein, UA Negative Negative [facility] Glucose, UA 500 mg/dL (A) Negative [facility] Ketones, UA Negative Negative [facility] Bilirubin, UA Negative Negative [facility] Blood, UA Negative Negative [facility] Nitrite, UA Negative Negative [facility] Leukocytes, UA Negative Negative [facility] Urobilinogen, UA 0.2 0.2 - 1.0 mg/dL [facility] RBC, UA <1 /HPF [facility] WBC, UA 1 /HPF [facility] Mucus Rare [facility] Specimen Source [facility] Specimen Urine Performing Organization Address City/State/Zipcode Phone Number [facility] [address] [place] [phone] [place] Urine culture (02/11/2018 11:15 PM CDT) Result No growth [facility] Specimen Urine - Urine, Straight Catheter Performing Organization Address [facility]/Zipcode Phone Number [address] [phone] [place] XR chest 1 view portable / bedside (02/11/2018 10:54 PM CDT) Narrative Performed At FINAL REPORT [facility] RAD, CHEST, 1 VIEW, NON DEPT INDICATION: Obtundation with coarse respirations, baseline COMPARISON: None. FINDINGS: Portable frontal view of the chest. IMPRESSION: Support Lines: None. Lungs and pleura: Clear lungs. No pneumothorax. Heart and mediastinum: Unremarkable. Additional findings: Fluid and gaseous distention of the gastric lumen. Signed: JR Lozano Robert MD Report Verified Date/Time:02/11/2018 23:11:04 Reading Location: [address] Reading Room Procedure Note Interface, External [...] Report Verified Date/Time: 02/11/2018 23:11:04 Reading Location: [address] [place] Reading Room Performing Organization Address City/State/Zipcode Phone Number [facility] after 04/21/2017 Advance Directives For more information, please contact:[address] [phone] Code Status Date Activated Date Inactivated Comments Full Code 02/11/2018 10:27 PM 02/13/2018 7:55 PM This code status was determined by: Patient
--- OUTSIDE RECORDS SUMMARY | 2018-04-22 20:12 | XMS REPORT ---
:1975 [facility] [address]ma [address] [place] [id number] Care Team Providers Name Role Phone MARIA [...] Value Reference Range Comments CULTURE (BEAKER) (test qofp=2645) No growth in 5 days URINE [id number] 10:25:00 Test Item Value Reference Range Comments CULTURE (BEAKER) (test ctqh=5901) No growth POCT-GLUCOSE [id number] 17:10:00 Test Item Value Reference Range Comments POC-GLUCOSE METER (BEAKER) 232 mg/dL 70-110 TESTED AT [address] (test gmxh=5124) [facility] [address] CT, CTANGIO [id number] 16:41:00CTV pleaseFINAL REPORT CTV brain 02/13/2018 4:35 [...] Pizarro Verified Date/Time: 02/13/2018 16:41:24 Reading Location: [facility] Radiology Reading Room Electronically signed by: BLAISE PIZARRO M.D. on 04:41 PMPOCT-GLUCOSE [id number] 13:07:00 Test Item Value Reference Range Comments POC-GLUCOSE METER (BEAKER) 311 mg/dL 70-110 Notified MELANIE MUÑOZ/TESTED AT [facility] (test lgpy=8337) [address] [facility] [address] IRON, TIBC, % SAT. (WITHOUT FERRITIN)2018-02-13 10:10:00 Test Item Value Reference Range Comments IRON (BEAKER) (test dnhw=982) 49 ug/dL 40-160 TOTAL IRON BINDING CAPACITY (BEAKER) (test 231 ug/dL 250-450 proj=451) IRON % SATURATION (2) (BEAKER) (test evyx=9624) 21 % 20-55 POCT-GLUCOSE [id number] 08:50:00 Test Item Value Reference Range Comments POC-GLUCOSE METER (BEAKER) 348 mg/dL 70-110 Notified MELANIE MUÑOZ/TESTED AT [facility] (test iaan=2392) [address] [facility] [address] BASIC METABOLIC [id number] 08:31:00 Test Item Value Reference Range Comments SODIUM (BEAKER) (test 134 meq/L 136-145 mcfc=682) POTASSIUM (BEAKER) (test 5.4 meq/L 3.5-5.1 Specimen slightly evde=622) hemolyzed CHLORIDE (BEAKER) (test 101 meq/L 98-107 zzps=526) CO2 (BEAKER) (test 26 meq/L 22-29 vzla=141) BLOOD UREA NITROGEN 9 mg/dL 7-21 (BEAKER) (test satt=673) CREATININE (BEAKER) (test 1.01 mg/dL 0.57-1.25 Specimen slightly zhwi=384) hemolyzed GLUCOSE RANDOM (BEAKER) 347 mg/dL 70-105 (test vqzi=929) CALCIUM (BEAKER) (test 8.9 mg/dL 8.4-10.2 skph=755) EGFR (BEAKER) (test 80 mL/min/1.73 sq m ESTIMATED GFR IS NOT pwwn=9915) ACCURATE CREATININE CLEARANCE IN PREDICTING GLOMERULAR FILTRATION RATE. ESTIMATED GFR IS NOT APPLICABLE FOR DIALYSIS PATIENTS. LIPID [id number] 08:31:00 Test Item Value Reference Range Comments TRIGLYCERIDES (BEAKER) (test 189 mg/dL Specimen slightly hemolyzed uvsr=770) CHOLESTEROL (BEAKER) (test 265 mg/dL Specimen slightly hemolyzed tuwg=603) HDL CHOLESTEROL (BEAKER) (test 46 mg/dL fwew=280) LDL CHOLESTEROL CALCULATED 181 mg/dL (BEAKER) (test clbg=133) Triglyceride Reference Range: Low Risk <150 Borderline 150- 199 High Risk 200-499 Very High Risk >=500Cholesterol Reference Range: Low Risk <200 Borderline 200-239 High Risk > 240HDL Cholesterol Reference Range: Low Risk >=60 High Risk <40LDL Cholesterol Reference Range: Optimal <100 Near Optimal 100-129 Borderline 130-159 High 160-189 Very High >=190IMMATURE RETICULOCYTE [id number] 08:16:00 Test Item Value Reference Range Comments IMMATURE RETIC FRACTION (BEAKER) (test dpaj=1139) 8.600 % 2.300-13.400 RETICULOCYTE COUNT PCT (BEAKER) (test lyrs=980) 1.4 % 0.5-1.8 CBC W/PLT COUNT & AUTO [id number] 08:16:00 Test Item Value Reference Range Comments WHITE BLOOD CELL COUNT (BEAKER) (test zssy=316) 8.5 K/ L 3.5-10.5 RED BLOOD CELL COUNT (BEAKER) (test hjpo=894) 4.49 M/ L 4.63-6.08 HEMOGLOBIN (BEAKER) (test vvnp=912) 14.5 GM/DL 13.7-17.5 HEMATOCRIT (BEAKER) (test kdjn=857) 44.1 % 40.1-51.0 MEAN CORPUSCULAR VOLUME (BEAKER) (test ctqq=627) 98.2 fL 79.0-92.2 MEAN CORPUSCULAR HEMOGLOBIN (BEAKER) (test 32.3 pg 25.7-32.2 wysy=741) MEAN CORPUSCULAR HEMOGLOBIN CONC (BEAKER) (test 32.9 GM/DL 32.3-36.5 nace=340) RED CELL DISTRIBUTION WIDTH (BEAKER) (test 12.8 % 11.6-14.4 mhtm=037) PLATELET COUNT (BEAKER) (test xwkd=008) 365 K/CU MM 150-450 MEAN PLATELET VOLUME (BEAKER) (test kjof=552) 10.3 fL 9.4-12.4 NUCLEATED RED BLOOD CELLS (BEAKER) (test 0 /100 WBC 0-0 ywsq=143) NEUTROPHILS RELATIVE PERCENT (BEAKER) (test 59 % iyuf=911) LYMPHOCYTES RELATIVE PERCENT (BEAKER) (test 23 % hcuf=480) MONOCYTES RELATIVE PERCENT (BEAKER) (test 8 % njpb=642) EOSINOPHILS RELATIVE PERCENT (BEAKER) (test 9 % djzz=395) BASOPHILS RELATIVE PERCENT (BEAKER) (test 1 % rbib=814) NEUTROPHILS ABSOLUTE COUNT (BEAKER) (test 5.00 K/ L 1.78-5.38 ysvu=750) LYMPHOCYTES ABSOLUTE COUNT (BEAKER) (test 1.94 K/ L 1.32-3.57 forq=001) MONOCYTES ABSOLUTE COUNT (BEAKER) (test 0.67 K/ L 0.30-0.82 oxnh=110) EOSINOPHILS ABSOLUTE COUNT (BEAKER) (test 0.73 K/ L 0.04-0.54 txad=657) BASOPHILS ABSOLUTE COUNT (BEAKER) (test 0.10 K/ L 0.01-0.08 koix=063) IMMATURE GRANULOCYTES-RELATIVE PERCENT (BEAKER) 0 % 0-1 (test rhkk=7906) POCT-GLUCOSE [id number] 21:18:00 Test Item Value Reference Range Comments POC-GLUCOSE METER (BEAKER) 226 mg/dL 70-110 TESTED AT [facility] [address] [facility] (test nkha=0598) [facility] [address] MR, BRAIN, WITHOUT [id number] 19:43:00FINAL REPORT MRI brain without contrast INDICATION: [...] thrombus cannot be excluded. The major proximal [place] flow voids are maintained. Mild [...] Gregory Verified Date/Time: 02/12/2018 19:43:32 Reading Location: [facility] Radiology Reading Room POCT-GLUCOSE [id number] 19:01:00 Test Item Value Reference Range Comments POC-GLUCOSE METER (BEAKER) 362 mg/dL 70-110 TESTED AT [address] (test uiez=1745) [facility] [address] EEG AWAKE AND [id number] 17:46:00Reason for exam:->SeizureShould this be performed at the bedside?->YesCHI [facility] EEG REPORTDATE OF TEST : [id number] OF REPORT: [id number]: [id number]: [id number] time: 14: 04Stop time: 14:24ICD-10: R56.9CPT Code: 12020HOPDTPE: 40 y old 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, [...] this report.Queenie Paiz MD, PhDClinical Neurophysiology/Epilepsy AttendingCHI [facility] 05: 46 PMPOCT-GLUCOSE [id number] 15:33:00 Test Item Value Reference Range Comments POC-GLUCOSE METER (BEAKER) 213 mg/dL 70-110 TESTED AT [facility] [address] [facility] (test chip=1834) [facility] [address] TSH/FREE T4 IF [id number] 09:35:00 Test Item Value Reference Range Comments THYROID STIMULATING HORMONE (BEAKER) (test 4.03 uIU/mL 0.35-4.94 kmwb=288) HEMOGLOBIN [id number] 08:47:00 Test Item Value Reference Range Comments HEMOGLOBIN A1C (BEAKER) (test cejf=058) 6.5 % 4.3-6.1 POCT-GLUCOSE [id number] 07:55:00 Test Item Value Reference Range Comments POC-GLUCOSE METER (BEAKER) 219 mg/dL 70-110 TESTED AT [facility] [address] (test ckkn=2102) [facility] [address] [id number] 05:00:00 Test Item Value Reference Range Comments MAGNESIUM (BEAKER) (test jblh=884) 2.1 mg/dL 1.6-2.6 BASIC METABOLIC [id number] 05:00:00 Test Item Value Reference Range Comments SODIUM (BEAKER) (test 139 meq/L 136-145 qwhd=596) POTASSIUM (BEAKER) (test 4.1 meq/L 3.5-5.1 fdlf=154) CHLORIDE (BEAKER) (test 109 meq/L 98-107 syrw=501) CO2 (BEAKER) (test 25 meq/L 22-29 xeib=095) BLOOD UREA NITROGEN 7 mg/dL 7-21 (BEAKER) (test qelm=167) CREATININE (BEAKER) (test 0.81 mg/dL 0.57-1.25 sgum=442) GLUCOSE RANDOM (BEAKER) 167 mg/dL 70-105 (test ukvb=040) CALCIUM (BEAKER) (test 9.0 mg/dL 8.4-10.2 agmg=924) EGFR (BEAKER) (test 104 mL/min/1.73 sq m ESTIMATED GFR IS NOT keld=5125) ACCURATE CREATININE CLEARANCE IN PREDICTING GLOMERULAR FILTRATION RATE. ESTIMATED GFR IS NOT APPLICABLE FOR DIALYSIS PATIENTS. CBC W/PLT COUNT & AUTO [id number] 04:40:00 Test Item Value Reference Range Comments WHITE BLOOD CELL COUNT (BEAKER) (test ucsx=582) 11.3 K/ L 3.5-10.5 RED BLOOD CELL COUNT (BEAKER) (test jlra=632) 4.09 M/ L 4.63-6.08 HEMOGLOBIN (BEAKER) (test xgmi=662) 13.1 GM/DL 13.7-17.5 HEMATOCRIT (BEAKER) (test uwjv=342) 39.8 % 40.1-51.0 MEAN CORPUSCULAR VOLUME (BEAKER) (test mzho=844) 97.3 fL 79.0-92.2 MEAN CORPUSCULAR HEMOGLOBIN (BEAKER) (test 32.0 pg 25.7-32.2 fnmt=682) MEAN CORPUSCULAR HEMOGLOBIN CONC (BEAKER) (test 32.9 GM/DL 32.3-36.5 stqk=796) RED CELL DISTRIBUTION WIDTH (BEAKER) (test 12.8 % 11.6-14.4 djvd=335) PLATELET COUNT (BEAKER) (test pevk=765) 344 K/CU MM 150-450 MEAN PLATELET VOLUME (BEAKER) (test mbkn=048) 9.5 fL 9.4-12.4 NUCLEATED RED BLOOD CELLS (BEAKER) (test 0 /100 WBC 0-0 jkug=996) NEUTROPHILS RELATIVE PERCENT (BEAKER) (test 61 % qxnv=850) LYMPHOCYTES RELATIVE PERCENT (BEAKER) (test 24 % xnto=705) MONOCYTES RELATIVE PERCENT (BEAKER) (test 8 % rpdn=686) EOSINOPHILS RELATIVE PERCENT (BEAKER) (test 7 % ksur=101) BASOPHILS RELATIVE PERCENT (BEAKER) (test 1 % jukt=005) NEUTROPHILS ABSOLUTE COUNT (BEAKER) (test 6.86 K/ L 1.78-5.38 xyoq=994) LYMPHOCYTES ABSOLUTE COUNT (BEAKER) (test 2.67 K/ L 1.32-3.57 lsaj=215) MONOCYTES ABSOLUTE COUNT (BEAKER) (test 0.85 K/ L 0.30-0.82 usae=088) EOSINOPHILS ABSOLUTE COUNT (BEAKER) (test 0.79 K/ L 0.04-0.54 pkba=162) BASOPHILS ABSOLUTE COUNT (BEAKER) (test 0.07 K/ L 0.01-0.08 ffta=375) IMMATURE GRANULOCYTES-RELATIVE PERCENT (BEAKER) 0 % 0-1 (test zugm=6422) POCT-GLUCOSE [id number] 04:31:00 Test Item Value Reference Range Comments POC-GLUCOSE METER (BEAKER) 183 mg/dL 70-110 TESTED AT [facility] [address] [facility] (test iidv=7866) [facility] [address] RAD, ABDOMEN/KUB, 1 VIEW [id number] 01:33:00Reason for exam:->Abdominal distension, obtundationFINAL REPORT CLINICAL [...] Verified Date/ Time: 02/12/2018 01:33:19 Reading Location: [address] Transitional Reading Room POCT-GLUCOSE [id number] 00:49:00 Test Item Value Reference Range Comments POC-GLUCOSE METER (BEAKER) 346 mg/dL 70-110 TESTED AT [facility] [address] [facility] (test yaif=7546) [facility] [address] CBC W/PLT COUNT & AUTO [id number] 00:44:00 Test Item Value Reference Range Comments WHITE BLOOD CELL COUNT (BEAKER) (test gtqp=470) 14.3 K/ L 3.5-10.5 RED BLOOD CELL COUNT (BEAKER) (test dpvi=476) 4.26 M/ L 4.63-6.08 HEMOGLOBIN (BEAKER) (test dnkn=313) 13.8 GM/DL 13.7-17.5 HEMATOCRIT (BEAKER) (test fwos=371) 42.1 % 40.1-51.0 MEAN CORPUSCULAR VOLUME (BEAKER) (test kfdx=170) 98.8 fL 79.0-92.2 MEAN CORPUSCULAR HEMOGLOBIN (BEAKER) (test 32.4 pg 25.7-32.2 tlgq=027) MEAN CORPUSCULAR HEMOGLOBIN CONC (BEAKER) (test 32.8 GM/DL 32.3-36.5 hdrx=316) RED CELL DISTRIBUTION WIDTH (BEAKER) (test 12.9 % 11.6-14.4 exev=454) PLATELET COUNT (BEAKER) (test mrdu=523) 366 K/CU MM 150-450 MEAN PLATELET VOLUME (BEAKER) (test emch=192) 9.8 fL 9.4-12.4 NUCLEATED RED BLOOD CELLS (BEAKER) (test 0 /100 WBC 0-0 mlvt=724) NEUTROPHILS RELATIVE PERCENT (BEAKER) (test 74 % fvuz=846) LYMPHOCYTES RELATIVE PERCENT (BEAKER) (test 13 % btfr=665) MONOCYTES RELATIVE PERCENT (BEAKER) (test 7 % ouks=055) EOSINOPHILS RELATIVE PERCENT (BEAKER) (test 5 % zish=935) BASOPHILS RELATIVE PERCENT (BEAKER) (test 1 % dqxd=348) NEUTROPHILS ABSOLUTE COUNT (BEAKER) (test 10.60 K/ L 1.78-5.38 bpjt=355) LYMPHOCYTES ABSOLUTE COUNT (BEAKER) (test 1.80 K/ L 1.32-3.57 cvfz=342) MONOCYTES ABSOLUTE COUNT (BEAKER) (test 1.06 K/ L 0.30-0.82 fjsa=685) EOSINOPHILS ABSOLUTE COUNT (BEAKER) (test 0.69 K/ L 0.04-0.54 dtqx=218) BASOPHILS ABSOLUTE COUNT (BEAKER) (test 0.09 K/ L 0.01-0.08 rwkz=120) IMMATURE GRANULOCYTES-RELATIVE PERCENT (BEAKER) 0 % 0-1 (test hczs=4458) RAPID DRUG SCREEN, [id number] 00:35:00 Test Item Value Reference Range Comments BARBITURATE URINE (BEAKER) (test wpxw=874) Negative Negative BENZODIAZEPINE SCREEN URINE (BEAKER) (test Negative Negative joyc=944) COCAINE (METAB.) SCREEN (BEAKER) (test tpqf=9252) Negative Negative METHADONE SCREEN (BEAKER) (test fvrz=1477) Negative Negative OPIATE SCREEN URINE (BEAKER) (test rexz=078) Negative Negative CANNABINOID SCREEN URINE (BEAKER) (test pipb=254) Negative Negative AMPH/METHAMPH SCREEN (BEAKER) (test gfyc=8313) Negative Negative PHENCYCLIDINE SCREEN URINE (BEAKER) (test flfz=269) Negative Negative OXYCODONE SCREEN URINE (BEAKER) (test svgh=5213) Negative Negative DRUG CUTOFF CONC.Cocaine 300 ng/mL Cannabinoid 50 ng/mL Benzodiazepine 200 ng/mLBarbiturate 200 ng/ mLPhencyclidine 25 ng/mLOpiate 300 ng/mLMethadone 300 ng/mLAmphetamine/ 1000 ng/mL MethamphetamineOxycodone 300 ng/mLThis assay provides an unconfirmed qualitative test result for the clinical management of patients in emergency situations. Chain of custody not maintained. Some bzkx-wye-dxykuta medications, as well as adulterants, may cause inaccurate results. Clinical correlation should be applied. A more comprehensive drug screen or confirmation of a detected drug may be performed upon request.TROPONIN [id number] 00:15:00 Test Item Value Reference Range Comments TROPONIN I (BEAKER) (test gale=161) < ng/mL 0.00-0.03 Troponin I (TnI) levels [...] acute neurological disease, and persistent tachyarrhythmia.COMPREHENSIVE METABOLIC [id number] 00:09:00 Test Item Value Reference Range Comments TOTAL PROTEIN (BEAKER) 6.9 gm/dL 6.0-8.3 (test qlmy=516) ALBUMIN (BEAKER) (test 3.8 g/dL 3.5-5.0 ebfl=7469) ALKALINE PHOSPHATASE 95 U/L 40-150 (BEAKER) (test cino=069) BILIRUBIN TOTAL (BEAKER) 0.6 mg/dL 0.2-1.2 (test ienn=045) SODIUM (BEAKER) (test 135 meq/L 136-145 cjhg=972) POTASSIUM (BEAKER) (test 5.0 meq/L 3.5-5.1 dxgq=498) CHLORIDE (BEAKER) (test 104 meq/L 98-107 amdh=544) CO2 (BEAKER) (test 25 meq/L 22-29 kdjk=804) BLOOD UREA NITROGEN 8 mg/dL 7-21 (BEAKER) (test hdjs=883) CREATININE (BEAKER) (test 1.03 mg/dL 0.57-1.25 evgf=389) GLUCOSE RANDOM (BEAKER) 292 mg/dL 70-105 (test fepx=053) CALCIUM (BEAKER) (test 9.2 mg/dL 8.4-10.2 tkpj=619) AST (SGOT) (BEAKER) (test 23 U/L 5-34 nfqc=825) ALT (SGPT) (BEAKER) (test 17 U/L 6-55 hsxq=698) EGFR (BEAKER) (test 78 mL/min/1.73 sq m ESTIMATED GFR IS NOT hvfx=1382) ACCURATE CREATININE CLEARANCE IN PREDICTING GLOMERULAR FILTRATION RATE. ESTIMATED GFR IS NOT APPLICABLE FOR DIALYSIS PATIENTS. URINALYSIS W/ [id number] 00:06:00 Test Item Value Reference Range Comments COLOR (BEAKER) (test ubpj=290) Light Yellow CLARITY (BEAKER) (test khhr=942) Clear SPECIFIC GRAVITY UA (BEAKER) (test fndp=504) 1.007 1.001-1.035 PH UA (BEAKER) (test snez=396) 6.5 5.0-8.0 PROTEIN UA (BEAKER) (test sykk=213) Negative Negative GLUCOSE UA (BEAKER) (test mvde=808) 500 mg/dL Negative KETONES UA (BEAKER) (test zgml=867) Negative Negative BILIRUBIN UA (BEAKER) (test tjbu=360) Negative Negative BLOOD UA (BEAKER) (test txny=971) Negative Negative NITRITE UA (BEAKER) (test nbep=901) Negative Negative LEUKOCYTE ESTERASE UA (BEAKER) (test ykjt=695) Negative Negative UROBILINOGEN UA (BEAKER) (test hsgp=894) 0.2 mg/dL 0.2-1.0 RBC UA (BEAKER) (test zvkh=357) < /HPF WBC UA (BEAKER) (test ytjm=798) 1 /HPF MUCUS (BEAKER) (test xyxm=3412) Rare SOURCE(BEAKER) (test agxv=8855) RAD, CHEST, 1 VIEW, NON [id number] 23:11:00Reason for exam:->Obtundation with coarse respirations, baselineShould this be performed at the bedside?-> YesFINAL REPORT RAD, CHEST, 1 VIEW, NON DEPT INDICATION: Obtundation with coarserespirations, baseline COMPARISON: None. FINDINGS: Portable frontal view of the chest. IMPRESSION: Support Lines: None. Lungs and pleura: Clear lungs. No pneumothorax.Heart and mediastinum: Unremarkable. Additional findings: Fluid and gaseous distention of the gastric lumen. Signed: JR Lozano [facility] Verified Date/Time: 02/11/2018 23:11:04 Reading Location: [address]Reading [address]
[2018-04-22] MEDS ORDERED: NA CHLORIDE 0.9% 1,000 ML ONE (20:29)
[2018-04-22] MEDS ORDERED: D50W 25 GM/50 ML SYRINGE IV ONE (20:29)
[2018-04-22 20:58] LABS: Absolute Lymphocytes (CBC) 4.2 K/uL (0.7-4.9); Absolute Neutrophil 9.7 K/uL (1.8-8.0); Basophils % 0.8 % (0-1.3); Eosinophils % 4.7 % (0-4.4); Hematocrit 42.5 % (39.6-49.0); Lymphocytes % 26.7 % (15.3-44.8); MCH 31.5 pg (27.0-35.0); MCV 90.8 fL (80-100); MPV 8.4 fL (7.6-11.3); Monocytes % 6.4 % (3.3-12.3); RBC Red Blood Cell Count 4.67 M/uL (4.33-5.43)
[2018-04-22 21:08] LABS: Protime INR 0.97
[2018-04-22 21:22] LABS: Albumin 3.5 g/dL (3.4-5.0); Bilirubin Direct 0.2 mg/dL (0-0.2); Bilirubin Total 0.8 mg/dL (0.2-1.0); CKMB Creatine Kinase MB 7.6 ng/mL (0.3-3.6); Magnesium 2.2 mg/dL (1.8-2.4); Protein, Total 7.9 g/dL (6.4-8.2)
[2018-04-22 21:24] LABS: Potassium 2.7 mmol/L (3.5-5.1)
[2018-04-22] MEDS ORDERED: NA CHLORIDE 0.9% 250 ML ONE (21:42)
[2018-04-22] MEDS ORDERED: KCL 20 MEQ/100 mL IVPB 20 MEQ/100 ML BAG IV ONE (21:42)
[2018-04-22 21:44] LABS: Urine Blood NEGATIVE (NEG); Urine Glucose TRACE (NEG); Urine Protein NEGATIVE (NEG); Urine pH 6.5 (5.0-7.0)
[2018-04-22] MEDS ORDERED: POTASSIUM CL SA 10 MEQ TAB PO ONE (21:51)
--- NOTE | 2018-04-22 22:33 | EDPHYS ---
Physician Documentation [facility] Name: Surjit Stubbs Age: 43 yrs Sex: Male : 1975 Arrival Date: 04/22/2018 Time: 20:10 Bed 25 Private MD: ED Physician Ezio Chew HPI: 04/23 20:41 This 43 yrs old Male presents to ER via EMS with complaints of seizure. tw4 20:41 The patient presents after having a single isolated seizure, that lasted. Character of tw4 seizure(s): Loss of consciousness: it is not known if the patient experienced loss of consciousness, Motor activity: generalized. Seizure onset: today. Context: the seizure(s) was witnessed, by no one. Seizure Hx: Cause: unknown, Usual frequency: roughly every 2 month(s). Associated injury: The patient did not suffer any apparent associated injury. Current symptoms: Currently, the patient is not experiencing any symptoms. The patient has not experienced similar symptoms in the past. Historical: - Allergies: 04/22 20:31 No Known Allergies; tl3 - Home Meds: 20:31 [place] Thyroid 60 mg Oral tab [Active]; Glucagon Emergency Kit (human) 1 mg IM kit 1 mL tl3 [Active]; Novolog Sub-Q [Active]; levetiracetam 500 mg oral tab 1 tab 2 times per day [Active]; gabapentin 100 mg oral cap [Active]; gemfibrozil 600 mg Oral tab 1 tab 2 times per day [Active]; acetaminophen-codeine 300-60 mg oral tab [Active]; - PMHx: 20:32 Diabetes - IDDM; High Cholesterol; Hypothyroidism; Seizures; tl3 - Immunization history:: Adult Immunizations unknown. - Social history:: Smoking status: Patient uses tobacco products. - Ebola Screening: : No symptoms or risks identified at this time. ROS: 04/23 20:41 Constitutional: Negative for fever, chills, and weight loss, Eyes: Negative for injury, tw4 pain, redness, and discharge, Cardiovascular: Negative for chest pain, palpitations, and edema, Respiratory: Negative for shortness of breath, cough, wheezing, and pleuritic chest pain, Abdomen/GI: Negative for abdominal pain, nausea, vomiting, diarrhea, and constipation, Back: Negative for injury and pain, MS/Extremity: Negative for injury and deformity, Skin: Negative for injury, rash, and discoloration. Exam: 20:41 Constitutional: This is a well developed, well nourished patient who is awake, alert, tw4 and in no acute distress. Head/Face: Normocephalic, atraumatic. Chest/axilla: Normal chest wall appearance and motion. Nontender with no deformity. No lesions are appreciated. Cardiovascular: Regular rate and rhythm with a normal S1 and S2. No gallops, murmurs, or rubs. Normal PMI, no JVD. No pulse deficits. Respiratory: Lungs have equal breath sounds bilaterally, clear to auscultation and percussion. No rales, rhonchi or wheezes noted. No increased work of breathing, no retractions or nasal flaring. Abdomen/GI: Soft, non-tender, with normal bowel sounds. No distension or tympany. No guarding or rebound. No evidence of tenderness throughout. Back: No spinal tenderness. No costovertebral tenderness. Full range of motion. MS/ Extremity: Pulses equal, no cyanosis. Neurovascular intact. Full, normal range of motion. Neuro: Awake and alert, GCS 15, oriented to person, place, time, and situation. Cranial nerves II-XII grossly intact. Motor strength 5/5 in all extremities. Sensory grossly intact. Cerebellar exam normal. Normal gait. Vital Signs: 04/22 20:32 BP 138 / 87; Pulse 103; Resp 18; Pulse Ox 97% ; tl3 21:30 BP 104 / 74; Pulse 95; Resp 16; Pulse Ox 97% on R/A; rv 21:53 BP 146 / 97; Pulse 105 MON; Resp 15 S; Pulse Ox 99% on R/A; rv 22:01 BP 146 / 96; Pulse 97; Resp 18; Pulse Ox 98% on R/A; tl3 MDM: 20:19 Patient medically screened. tw4 04/23 20:41 Data reviewed: vital signs, nurses notes. Data interpreted: hospital monitor: rhythm is tw4 normal sinus rhythm, Pulse oximetry: Interpretation: normal. Counseling: I had a detailed discussion with the patient and/or guardian regarding: the historical points, exam findings, and any diagnostic results supporting the discharge/admit diagnosis, lab results, the need for further work-up and treatment in the hospital. Refusal of service: The patient/guardian displays adequate decision making capability and despite a detailed discussion of alternatives, benefits, risks, and consequences refuses: Admission to the hospital for further work-up and treatment, Medications, all X-rays. 04/22 20:28 Order name: Basic Metabolic Panel [facility] 04/22 20:28 Order name: CBC with Diff [facility] 04/22 20:28 Order name: Ckmb [facility] 04/22 20:28 Order name: CPK [facility] 04/22 20:28 Order name: Hepatic Function [facility] 04/22 20:28 Order name: Lipase [facility] 04/22 20:28 Order name: Magnesium [facility] 04/22 20:28 Order name: Protime (+inr) [facility] 04/22 20:28 Order name: Ptt, Activated [facility] 04/22 20:59 Order name: CBC with Automated Diff; Complete Time: 21:24 EDMS 04/22 21:24 Interpretation: Normal except: WBC 15.8; MCV 90.8; PLT 408. [facility] 04/22 21:12 Order name: Protime (+INR); Complete Time: 21:24 EDWA 04/22 21:24 Interpretation: PT 11.4. [facility] 04/22 21:12 Order name: PTT, Activated Partial Thromb; Complete Time: 21:29 EDMS 04/22 21:25 Order name: Basic Metabolic Panel; Complete Time: 21:28 EDWA 04/22 21:28 Interpretation: GFR 51; BUN 14; GLUC 48; CL 97; K 2.7; NA 135; CRE 1.50. [facility] 04/22 21:25 Order name: Liver (Hepatic) Function; Complete Time: 21:28 EDWA 04/22 21:28 Interpretation: Normal except: GLOB 4.4; A/G 0.8. [facility] 04/22 20:28 Order name: Cardiac monitoring; Complete Time: 20:37 [facility] 04/22 20:28 Order name: IV Saline Lock; Complete Time: 20:37 [facility] 04/22 20:28 Order name: Labs collected and sent; Complete Time: 20:37 [facility] 04/22 20:28 Order name: NPO; Complete Time: 20:37 [facility] 04/22 20:28 Order name: O2 Per Protocol; Complete Time: 20:37 [facility] 04/22 20:28 Order name: O2 Sat Monitoring; Complete Time: 20:37 [facility] 04/22 21:25 Order name: Creatine Phosphokinase; Complete Time: 21:28 EDMS 04/22 21:28 Interpretation: Normal except: CPK 503. tw4 04/22 21:25 Order name: CKMB Creatine Kinase MB; Complete Time: 21:28 EDMS 04/22 21:28 Interpretation: Normal except: CKMB 7.6. tw4 04/22 21:25 Order name: Magnesium; Complete Time: 21:28 EDMS 04/22 21:28 Interpretation: Within normal limits: MG 2.2. tw4 04/22 21:25 Order name: Lipase; Complete Time: 21:28 EDMS 04/22 21:28 Interpretation: Normal except: LIP 37. tw4 04/22 21:40 Order name: Urine Dipstick--Ancillary (enter results) em1 04/22 21:44 Order name: Urine Dipstick-Ancillary; Complete Time: 22:24 EDMS 04/22 20:28 Order name: Urine Dipstick-Ancillary (obtain specimen); Complete Time: 21:39 tw4 Administered Medications: 04/22 20:15 Drug: D50W 50 ml Route: IVP; Infused Over: 3 mins; Site: left antecubital; tl3 21:40 Drug: Potassium Chloride 20 mEq Route: IV; Rate: calculated rate; Site: left rv antecubital; 23:34 Follow up: IV Status: Order to discontinue infusion aj1 21:43 Drug: Potassium Chloride 40 mEq Route: PO; rv 23:35 Follow up: Response: No adverse reaction aj1 23:36 Not Given (Patient Refused; pt left AMA): D5-1/2 NS with KCl 10 mEq/L 1000 ml IV at 100 aj1 ml/hr continuous Point of Care Testing: Blood Glucose: 20:32 Blood Glucose: 42 mg/dL; tl3 21:04 Blood Glucose: 97 mg/dL; tl3 22:01 Blood Glucose: 72 mg/dL; tl3 Ranges: Critical Glucose Levels:Adult <50 mg/dl or >400 mg/dl <40 mg/dl or >180 mg/dl Disposition: 04/22/18 23:03 Patient has left against medical advice. Impression: Hypoglycemia, unspecified, Hypokalemia, Epilepsy and recurrent seizures. - Patients states they are going to Home. - Condition is Stable. - Discharge Instructions: Seizure, Adult, Hypokalemia. Follow up: Private Physician; When: Upon discharge from the Emergency Department; Reason: If symptoms return, Recheck today's complaints, Continuance of care. - Problem is an ongoing problem. - Symptoms are unchanged. Signatures: Dispatcher [employer] EDMS Sameera Haines RN RN aj1 Kiya Ko RN RN kl Wadley, Terrence, MD MD tw4 Sara Brooks RN RN tl3 Troy Altamirano RN RN rv Corrections: (The following items were deleted from the chart) 22:31 22:31 04/22/2018 22:31 Discharged to Home. Impression: Hypoglycemia, unspecified; tw4 Hypokalemia; Epilepsy and recurrent seizures. Condition is Stable. Forms are Medication Reconciliation Form, Thank You Letter, Antibiotic Education, Prescription Opioid Use. Follow up: Private Physician; When: Upon discharge from the Emergency Department; Reason: If symptoms return, Recheck today's complaints, Continuance of care. Problem is new. Symptoms have improved. tw4 22:41 22:32 Hospitalization Ordered by Juan Turner MD for Inpatient Admission. Preliminary kl diagnosis is Hypokalemia; Hypoglycemia, unspecified; Epilepsy and recurrent seizures. Bed requested for Telemetry/MedSurg (Inpatient). Status is Inpatient Admission. Condition is Stable. Problem is an ongoing problem. Symptoms are unchanged. UTI on Admission? No. tw4 23:01 22:41 04/22/2018 22:32 Hospitalization Ordered by Juan Turner MD for Inpatient tw4 Admission. Preliminary diagnosis is Hypokalemia; Hypoglycemia, unspecified; Epilepsy and recurrent seizures. Bed requested for Telemetry/MedSurg (Inpatient). Status is Inpatient Admission. Condition is Stable. Problem is an ongoing problem. Symptoms are unchanged. UTI on Admission? No. kl 23:06 23:03 04/22/2018 23:03 Patients has left against medical advice. Patient states they tw4 are going to Home. Condition is Stable. Follow up: Private Physician; When: Upon discharge from the Emergency Department; Reason: If symptoms return, Recheck today's complaints, Continuance of care. Problem is an ongoing problem. Symptoms are unchanged. tw4 23:36 23:06 04/22/2018 23:03 Patients has left against medical advice. Impression: aj1 Hypoglycemia, unspecified; Hypokalemia; Epilepsy and recurrent seizures. Patient states they are going to Home. Condition is Stable. Follow up: Private Physician; When: Upon discharge from the Emergency Department; Reason: If symptoms return, Recheck today's complaints, Continuance of care. Problem is an ongoing problem. Symptoms are unchanged. tw4
--- NOTE | 2018-04-22 22:33 | ER ---
Nurse's Notes [facility] Name: Surjit Stubbs Age: 43 yrs Sex: Male : 1975 Arrival Date: 04/22/2018 Time: 20:10 Bed 25 Private MD: Diagnosis: Hypoglycemia, unspecified;Hypokalemia;Epilepsy and recurrent seizures Presentation: 04/22 20:22 Presenting complaint: EMS states: pt had seizure that lasted about 6 minutes, blood tl3 glucose dropped to 46, EMS administered glucose and BG went up to 138 then dropped to 99 at door. Transition of care: patient was not received from another setting of care. Onset of symptoms was April 22, 2018. Risk Assessment: Do you want to hurt yourself or someone else? Patient reports no desire to harm self or others. Initial Sepsis Screen: Does the patient meet any 2 criteria? No. Patient's initial sepsis screen is negative. Does the patient have a suspected source of infection? No. Patient's initial sepsis screen is negative. Care prior to arrival: IV initiated. 18 GA, in the left antecubital area. 20:22 Method Of Arrival: EMS: [facility] tl3 20:22 Acuity: TOI 3 tl3 Triage Assessment: 20:32 General: Appears comfortable, slender, unkempt, Behavior is flat, quiet. Pain: Denies tl3 pain. EENT: No deficits noted. No signs and/or symptoms were reported regarding the EENT system. Neuro: Level of Consciousness is awake, obeys commands, confused, Oriented to person, place, pt postictal. Cardiovascular: Heart tones S1 S2 present Patient's skin is warm and dry. Rhythm is regular. Respiratory: Airway is patent Respiratory effort is even, unlabored, Respiratory pattern is regular, symmetrical. GI: No deficits noted. No signs and/or symptoms were reported involving the gastrointestinal system. : No deficits noted. No signs and/or symptoms were reported regarding the genitourinary system. Derm: No deficits noted. No signs and/or symptoms reported regarding the dermatologic system. Musculoskeletal: No deficits noted. No signs and/or symptoms reported regarding the musculoskeletal system. Historical: - Allergies: 20:31 No Known Allergies; tl3 - Home Meds: 20:31 [place] Thyroid 60 mg Oral tab [Active]; Glucagon Emergency Kit (human) 1 mg IM kit 1 mL tl3 [Active]; Novolog Sub-Q [Active]; levetiracetam 500 mg oral tab 1 tab 2 times per day [Active]; gabapentin 100 mg oral cap [Active]; gemfibrozil 600 mg Oral tab 1 tab 2 times per day [Active]; acetaminophen-codeine 300-60 mg oral tab [Active]; - PMHx: 20:32 Diabetes - IDDM; High Cholesterol; Hypothyroidism; Seizures; tl3 - Immunization history:: Adult Immunizations unknown. - Social history:: Smoking status: Patient uses tobacco products. - Ebola Screening: : No symptoms or risks identified at this time. Screenin:38 Abuse screen: Denies threats or abuse. Nutritional screening: No deficits noted. tl3 Tuberculosis screening: No symptoms or risk factors identified. Fall Risk Secondary diagnosis (15 points) seizures. Assessment: 20:38 Reassessment: No changes from previously documented assessment. tl3 Vital Signs: 20:32 BP 138 / 87; Pulse 103; Resp 18; Pulse Ox 97% ; tl3 21:30 BP 104 / 74; Pulse 95; Resp 16; Pulse Ox 97% on R/A; rv 21:53 BP 146 / 97; Pulse 105 MON; Resp 15 S; Pulse Ox 99% on R/A; rv 22:01 BP 146 / 96; Pulse 97; Resp 18; Pulse Ox 98% on R/A; tl3 ED Course: 20:10 Patient arrived in ED. al2 20:19 Ezio Chew MD is Attending Physician. tw4 20:22 Sara Brooks, MELANIE is Primary Nurse. tl3 20:26 Triage completed. tl3 20:32 Arm band placed on left wrist. tl3 20:37 Basic Metabolic Panel Sent. tl3 20:37 CBC with Diff Sent. tl3 20:37 Ckmb Sent. tl3 20:37 CPK Sent. tl3 20:38 Patient has correct armband on for positive identification. Bed in low position. Call tl3 light in reach. Side rails up X2. Adult w/ patient. Seizure precautions initiated. athletic monitor on. Pulse ox on. NIBP on. Warm blanket given. 20:38 Hepatic Function Sent. tl3 20:38 Lipase Sent. tl3 20:38 Magnesium Sent. tl3 20:38 Protime (+inr) Sent. tl3 20:38 Ptt, Activated Sent. tl3 20:38 No provider procedures requiring assistance completed. Maintain EMS IV. Dressing tl3 intact. Good blood return noted. Site clean \T\ dry. Gauge \T\ site: 18 g LAC. 22:32 Juan Turner MD is Hospitalizing Provider. tw4 23:34 IV discontinued, intact, bleeding controlled, No redness/swelling at site. Pressure aj1 dressing applied. 23:35 Urine Dipstick--Ancillary (enter results) Sent. aj1 Administered Medications: 20:15 Drug: D50W 50 ml Route: IVP; Infused Over: 3 mins; Site: left antecubital; tl3 21:40 Drug: Potassium Chloride 20 mEq Route: IV; Rate: calculated rate; Site: left rv antecubital; 23:34 Follow up: IV Status: Order to discontinue infusion aj1 21:43 Drug: Potassium Chloride 40 mEq Route: PO; rv 23:35 Follow up: Response: No adverse reaction aj1 23:36 Not Given (Patient Refused; pt left AMA): D5-1/2 NS with KCl 10 mEq/L 1000 ml IV at 100 aj1 ml/hr continuous Point of Care Testing: Blood Glucose: 20:32 Blood Glucose: 42 mg/dL; tl3 21:04 Blood Glucose: 97 mg/dL; tl3 22:01 Blood Glucose: 72 mg/dL; tl3 Ranges: Outcome: 22:31 Discharge ordered by . tw4 22:32 Decision to Hospitalize by Provider. tw4 23:36 AMA AMA form signed aj1 23:36 Condition: improved 23:36 Discharge instructions given to patient. 23:36 Patient left the ED. aj1 Signatures: Sameera Haines, RN RN [email or web address] Alison Mcclendon Terrence, MD MD tw4 Sara Brooks RN RN tl3 Troy Altamirano RN RN rv
[2018-04-23 00:35] VITALS: BP 146/96; O2SAT 98
--- NOTE | 2018-04-23 07:04 | EKG ---
Test Date: 2018-04-22 Test Time: 20:18:15 Associate Marketing Manager: MEASUREMENT RESULTS: Intervals: Rate: 101 MI: 146 QRSD: 74 QT: 360 QTc: 466 Rh[place]: P: 44 MI: 146 QRS: 27 T: 41 INTERPRETIVE STATEMENTS: Sinus tachycardia Otherwise normal ECG Compared to ECG 02/11/2018 17:54:27 Left-axis deviation no longer present Incomplete right bundle-branch block no longer present Myocardial infarct finding no longer present Electronically Signed On 04-23-18 07:03:44 MATHEMATICS LECTURER by Jose Hanna
== END 2018-04-22 23:36 | disposition left against medical advice (07) ==
LOC: ER 20:08 → UNDOADMIN 22:32 → ERHOLD 22:32
DX: E11.649 Type 2 diabetes mellitus with hypoglycemia without coma (principal); E87.6 Hypokalemia; Z72.0 Tobacco use; Z79.4 Long term (current) use of insulin; E78.00 Pure hypercholesterolemia, unspecified
CPT/HCPCS: 36415; 80048; 80076; 81003; 82550; 82553; 82962; 83690; 83735; 85025; 85610; 85730; 93005; 96365; 96366; 96375; 99284; J7030

== ENCOUNTER 2018-06-13 19:27 | Emergency (ER) | payer SELFPAY ==
--- OUTSIDE RECORDS SUMMARY | 2018-06-13 19:29 | XMS REPORT | Clinical Summary ---
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 after 06/12/2017 Results RHYTHM STRIP - SCAN (02/14/2018 1:22 PM CDT) Narrative Performed At POC-Glucose meter (02/13/2018 4:58 PM CDT)Only the most recent of9 resultswithin the time period is included. POC-Glucose Meter 232 (H)Comment: TESTED AT 70 - 110 mg/dL [place] [id number] [facility] [id number] Specimen Blood Performing Organization Address City/State/Zipcode Phone Number [address] [phone] CENTER CTA brain (02/13/2018 4:35 PM CDT) Narrative Performed At FINAL REPORT [facility] CTV brain 02/13/2018 4:35 PM CLINICAL INDICATION: [...] MD Report Verified Date/Time:02/13/2018 16:41:24 Reading Location: [facility] Radiology Reading Room Procedure Note Interface, External [...] Report Verified Date/Time: 02/13/2018 16:41:24 Reading Location: [facility] Radiology Reading Room Performing Organization Address City/State/Zipcode Phone Number [facility] Iron, TIBC, % sat. (without ferritin) (02/13/2018 6:40 AM CDT) Iron 49 40 - 160 ug/dL [facility] TIBC 231 (L) 250 - 450 ug/dL [facility] Iron % Saturation 21 20 - 55 % [facility] Specimen Blood Performing Organization Address City/[facility]/Zipcode Phone Number [facility] [address] [place] [address] [place] Immature reticulocyte fraction (02/13/2018 6:40 AM CDT) Immature Reticulocyte 8.600Comment: 2.300 - 13.400 % [facility] % Retic 1.4 0.5 - 1.8 % [facility] Specimen Blood Performing Organization Address City/State/Zipcode Phone Number [address] [address] [place] CBC with platelet count + automated diff (02/13/2018 6:40 AM CDT)Only the most recent of3 resultswithin the time period is included. WBC 8.5 3.5 - 10.5 K/L [facility] RBC 4.49 (L) 4.63 - 6.08 M/L [facility] Hemoglobin 14.5 13.7 - 17.5 GM/DL [facility] Hematocrit 44.1 40.1 - 51.0 % [facility] MCV 98.2 (H) 79.0 - 92.2 fL [facility] MCH 32.3 (H) 25.7 - 32.2 pg [facility] MCHC 32.9 32.3 - 36.5 GM/DL [facility] RDW 12.8 11.6 - 14.4 % [facility] Platelets 365 150 - 450 K/CU MM [facility] MPV 10.3 9.4 - 12.4 fL [facility] nRBC 0 0 - 0 /100 WBC [facility] % Neutros 59 % [facility] % Lymphs 23 % [facility] % Monos 8 % [facility] % Eos 9 % [facility] % Baso 1 % [facility] # Neutros 5.00 1.78 - 5.38 K/L [facility] # Lymphs 1.94 1.32 - 3.57 K/L [facility] # Monos 0.67 0.30 - 0.82 K/L [facility] # Eos 0.73 (H) 0.04 - 0.54 K/L [facility] # Baso 0.10 (H) 0.01 - 0.08 K/L [facility] Immature Granulocytes-Relative 0 0 - 1 % [facility] Specimen Blood Performing Organization Address [facility] Phone Number [address] [address] C[place] Lipid panel (02/13/2018 6:40 AM CDT) Triglycerides 189Comment: Specimen slightly mg/dL [facility] Cholesterol 265Comment: Specimen slightly mg/dL [facility] HDL 46 mg/dL [facility] LDL Calculated 181 mg/dL [facility] Specimen Blood Narrative Performed At [facility] Triglyceride Reference Range: Low Risk <150 [id number] High Risk 200-499 Very High Risk>=500 Cholesterol Reference Range: Low Risk <200 [id number] High Risk>240 HDL Cholesterol Reference Range: Low Risk >=60 High Risk <40 LDL Cholesterol Reference Range: Optimal<100 Near Utctuew781-328 Pwjmrpiycp670-111 Sjlg199-400 Very High >=190 Performing Organization Address City/[facility] Phone Number [address] [address] [place] Basic metabolic panel (02/13/2018 6:40 AM CDT)Only the most recent of2 resultswithin the time period is included. Sodium 134 (L) 136 - 145 meq/L [facility] Potassium 5.4 (H)Comment: Specimen 3.5 - 5.1 meq/L [facility] slightly hemolyzed [facility] Chloride 101 98 - 107 meq/L [facility] CO2 26 22 - 29 meq/L [facility] BUN 9 7 - 21 mg/dL [facility] Creatinine 1.01Comment: Specimen 0.57 - 1.25 mg/dL [facility] hemolyzed [facility] Glucose 347 (H) 70 - 105 mg/dL [facility] Calcium 8.9 8.4 - 10.2 mg/dL [facility] EGFR 80Comment: ESTIMATED GFR IS mL/min/1.73 sq m [facility] NOT ACCURATE CREATININE [facility] CLEARANCE IN PREDICTING GLOMERULAR FILTRATION RATE. ESTIMATED GFR IS NOT APPLICABLE FOR DIALYSIS PATIENTS. Specimen Blood Performing Organization Address City/State/Zipcode Phone Number [facility] [address] [place] [address] [place] MR brain without IV contrast (02/12/2018 7:08 PM CDT) Narrative Performed At FINAL REPORT [facility] MRI brain without contrast INDICATION: New onset [...] thrombus cannot be excluded. The major proximal makah of [place] flow voids are maintained. Mild [...] MD Report Verified Date/Time:02/12/2018 19:43:32 Reading Location: [facility] Radiology Reading Room Procedure Note Interface, External [...] thrombus cannot be excluded. The major proximal makah of [place] flow voids are maintained. Mild [...] Report Verified Date/Time: 02/12/2018 19:43:32 Reading Location: [facility] Radiology Reading Room Performing Organization Address City/State/Zipcode Phone Number [facility] EEG AWAKE AND DROWSY (02/12/2018 2:47 PM CDT) Narrative Performed At [facility] EEG REPORT [facility] DATE OF TEST: 02-12-2018 DATE OF REPORT: 02-12-2018 ACC: [id number] EE Start time: 14:04 Stop time: 14:24 ICD-10: R56.9 CPT Code: 64879 HISTORY: 40 y old male with h/o [...] Queenie Paiz MD, PhD Clinical Neurophysiology/Epilepsy Attending [facility] Procedure Note Interface, External Ris In - 02/12/2018 5:46 PM CDT [facility] EEG REPORT DATE OF TEST: 02-12-2018 DATE OF REPORT: 02-12-2018 ACC: [id number] EE Start time: 14:04 Stop time: 14:24 ICD-10: R56.9 CPT Code: 50576 HISTORY: 40 y old male with h/o [...] Queenie Paiz MD, PhD Clinical Neurophysiology/Epilepsy Attending [facility] Performing Organization Address City/State/Zipcode Phone Number [facility] TSH/Free T4 If Indicated (02/12/2018 8:49 AM CDT) TSH 4.03 0.35 - 4.94 uIU/mL [facility] Specimen Blood - Arm, Right Performing Organization Address City/State/Zipcode Phone Number [address] [address] [phone] CENTER Magnesium (02/12/2018 4:20 AM CDT) Magnesium 2.1 1.6 - 2.6 mg/dL [facility] Specimen Blood Performing Organization Address City/[facility]/Zipcode Phone Number [address] [address] CENTER XR abdomen / KUB 1 view (02/12/2018 1:26 AM CDT) Narrative Performed At FINAL REPORT [facility] CLINICAL HISTORY: Abdominal distension, obtundation TECHNIQUE: RAD, [...] MD Report Verified Date/Time:02/12/2018 01:33:19 Reading Location: [address] Reading Room Procedure Note Interface, External [...] Report Verified Date/Time: 02/12/2018 01:33:19 Reading Location: [facility] [id number] Transitional Reading Room Performing Organization Address [facility] Phone Number [facility] Troponin I (02/11/2018 11:42 PM CDT) Troponin I <0.01 0.00 - 0.03 ng/mL [facility] Specimen Blood Narrative Performed At [facility] Troponin I (TnI) levels must be interpreted [...] disease, and persistent tachyarrhythmia. Performing Organization Address [facility] Phone Number [address] [address] [place] Blood culture (02/11/2018 11:42 PM CDT) Result No growth in 5 days [facility] Specimen Blood - Arm, Left Performing Organization Address [facility] Phone Number [address] [address] [place] Hemoglobin A1c (02/11/2018 11:42 PM CDT) Hemoglobin A1C 6.5 (H) 4.3 - 6.1 % [facility] Specimen Blood Performing Organization Address [facility] Phone Number [address] [address] [place] Comprehensive metabolic panel (02/11/2018 11:42 PM CDT) Protein, Total 6.9 6.0 - 8.3 gm/dL [facility] Albumin 3.8 3.5 - 5.0 g/dL [facility] Alkaline Phosphatase 95 40 - 150 U/L [facility] Total Bilirubin 0.6 0.2 - 1.2 mg/dL [facility] Sodium 135 (L) 136 - 145 meq/L [facility] Potassium 5.0 3.5 - 5.1 meq/L [facility] Chloride 104 98 - 107 meq/L [facility] CO2 25 22 - 29 meq/L [facility] BUN 8 7 - 21 mg/dL [facility] Creatinine 1.03 0.57 - 1.25 mg/dL [facility] Glucose 292 (H) 70 - 105 mg/dL [facility] Calcium 9.2 8.4 - 10.2 mg/dL [facility] AST 23 5 - 34 U/L [facility] ALT 17 6 - 55 U/L [facility] EGFR 78Comment: ESTIMATED GFR mL/min/1.73 sq m [facility] IS NOT ACCURATE [facility] CREATININE CLEARANCE IN PREDICTING GLOMERULAR FILTRATION RATE. ESTIMATED GFR IS NOT APPLICABLE FOR DIALYSIS PATIENTS. Specimen Blood Performing Organization Address City/State/Zipcode Phone Number [facility] [address] [place] [address] CENTER Rapid drug screen, urine (02/11/2018 11:17 PM CDT) Barbiturate Screen Negative Negative [facility] Benzodiazepine Screen Negative Negative [facility] Cocaine (Metab.) Screen Negative Negative [facility] Methadone Screen Negative Negative [facility] Opiate Screen Negative Negative [facility] Cannabinoid Screen Negative Negative [facility] Amph/Methamph Screen Negative Negative [facility] Phencyclidine Screen Negative Negative [facility] Oxycodone Screen Negative Negative [facility] Specimen Urine Narrative Performed At [facility] DRUGCUTOFF CONC. Cocaine 300 ng/mL Eosftkmfzdg53 ng/mL Ylolsklfrygvej354 ng/mL Barbiturate 200 ng/mL Lmfvkrkaiusdm58 ng/mL Xxrhhr986 ng/mL Methadone 300 ng/mL Amphetamine/ 1000 ng/mL Methamphetamine Oxycodone 300 ng/mL This assay provides an unconfirmed qualitative test result for the clinical management of patients in emergency situations. Chain of custody not maintained. Some ekji-cbv-xyrvshh medications, as well as adulterants, may cause inaccurate results. Clinical correlation should be applied. A more comprehensive drug screen or confirmation of a detected drug may be performed upon request. Performing Organization Address City/State/Zipcode Phone Number [facility] [address] [place] [address] [phone] CENTER Urinalysis w/ Microscopic (02/11/2018 11:15 PM CDT) Color, UA Light Yellow [facility] Clarity, UA Clear [facility] Specific [place], UA 1.007 1.001 - 1.035 [facility] pH, UA 6.5 5.0 - 8.0 [facility] Protein, UA Negative Negative [facility] Glucose, UA 500 mg/dL (A) Negative [facility] Ketones, UA Negative Negative [facility] Bilirubin, UA Negative Negative [facility] Blood, UA Negative Negative [facility] Nitrite, UA Negative Negative [facility] Leukocytes, UA Negative Negative [facility] Urobilinogen, UA 0.2 0.2 - 1.0 mg/dL [facility] RBC, UA <1 /HPF [facility] WBC, UA 1 /HPF [facility] Mucus Rare [facility] Specimen Source [facility] Specimen Urine Performing Organization Address City/State/Zipcode Phone Number [facility] [address] [place] [address] [phone] [place] Urine culture (02/11/2018 11:15 PM CDT) Result No growth [facility] Specimen Urine - Urine, Straight Catheter Performing Organization Address [facility] Phone Number [facility] [address] [place] [phone] [place] XR chest 1 view portable / bedside (02/11/2018 10:54 PM CDT) Narrative Performed At FINAL REPORT [facility] RAD, CHEST, 1 VIEW, NON DEPT INDICATION: Obtundation with coarse respirations, baseline COMPARISON: None. FINDINGS: Portable frontal view of the chest. IMPRESSION: Support Lines: None. Lungs and pleura: Clear lungs. No pneumothorax. Heart and mediastinum: Unremarkable. Additional findings: Fluid and gaseous distention of the gastric lumen. Signed: JR Lozano Robert MD Report Verified Date/Time:02/11/2018 23:11:04 Reading Location: [address] Reading Room Procedure Note Interface, External [...] Report Verified Date/Time: 02/11/2018 23:11:04 Reading Location: [address] Reading Room Performing Organization Address City/State/Zipcode Phone Number [facility] after 06/12/2017 Advance Directives For more information, please contact:[address] [place], [place] [phone] Code Status Date Activated Date Inactivated Comments Full Code 02/11/2018 10:27 PM 02/13/2018 7:55 PM This code status was determined by: Patient
--- OUTSIDE RECORDS SUMMARY | 2018-06-13 19:30 | XMS REPORT ---
:1975 Author Organization [facility] Address [facility] [address] [place] [id number] Care Team Providers Name Role Phone MARIA [...] Value Reference Range Comments CULTURE (BEAKER) (test vurz=9423) No growth in 5 days URINE [id number] 10:25:00 Test Item Value Reference Range Comments CULTURE (BEAKER) (test cgzm=9197) No growth POCT-GLUCOSE [id number] 17:10:00 Test Item Value Reference Range Comments POC-GLUCOSE METER (BEAKER) 232 mg/dL 70-110 TESTED AT [address] (test inyf=7196) [facility] [address] [address], CTANGIO [id number] 16:41:00CTV pleaseFINAL REPORT CTV brain 02/13/2018 4:35 [...] Pizarro Verified Date/Time: 02/13/2018 16:41:24 Reading Location: [facility] Radiology Reading Room Electronically signed by: BLAISE PIZARRO M.D. on 04:41 PMPOCT-GLUCOSE [id number] 13:07:00 Test Item Value Reference Range Comments POC-GLUCOSE METER (BEAKER) 311 mg/dL 70-110 Notified MELANIE MUÑOZ/TESTED AT [facility] (test jlxz=2774) [address] [facility] [address] IRON, TIBC, % SAT. (WITHOUT FERRITIN)2018-02-13 10:10:00 Test Item Value Reference Range Comments IRON (BEAKER) (test kkrz=122) 49 ug/dL 40-160 TOTAL IRON BINDING CAPACITY (BEAKER) (test 231 ug/dL 250-450 nsvm=702) IRON % SATURATION (2) (BEAKER) (test ibzr=9647) 21 % 20-55 POCT-GLUCOSE [id number] 08:50:00 Test Item Value Reference Range Comments POC-GLUCOSE METER (BEAKER) 348 mg/dL 70-110 Notified MELANIE MUÑOZ/TESTED AT [facility] (test wbld=3779) [address] [facility] [address] BASIC METABOLIC [id number] 08:31:00 Test Item Value Reference Range Comments SODIUM (BEAKER) (test 134 meq/L 136-145 smvr=316) POTASSIUM (BEAKER) (test 5.4 meq/L 3.5-5.1 Specimen slightly qrfg=156) hemolyzed CHLORIDE (BEAKER) (test 101 meq/L 98-107 wdcc=816) CO2 (BEAKER) (test 26 meq/L 22-29 chhj=058) BLOOD UREA NITROGEN 9 mg/dL 7-21 (BEAKER) (test lnmz=590) CREATININE (BEAKER) (test 1.01 mg/dL 0.57-1.25 Specimen slightly nxlo=835) hemolyzed GLUCOSE RANDOM (BEAKER) 347 mg/dL 70-105 (test drym=144) CALCIUM (BEAKER) (test 8.9 mg/dL 8.4-10.2 ikvd=673) EGFR (BEAKER) (test 80 mL/min/1.73 sq m ESTIMATED GFR IS NOT pswd=7924) ACCURATE CREATININE CLEARANCE IN PREDICTING GLOMERULAR FILTRATION RATE. ESTIMATED GFR IS NOT APPLICABLE FOR DIALYSIS PATIENTS. LIPID [id number] 08:31:00 Test Item Value Reference Range Comments TRIGLYCERIDES (BEAKER) (test 189 mg/dL Specimen slightly hemolyzed edgc=101) CHOLESTEROL (BEAKER) (test 265 mg/dL Specimen slightly hemolyzed xatl=686) HDL CHOLESTEROL (BEAKER) (test 46 mg/dL xstz=208) LDL CHOLESTEROL CALCULATED 181 mg/dL (BEAKER) (test eqny=181) Triglyceride Reference Range: Low Risk <150 Borderline 150- 199 High Risk 200-499 Very High Risk >=500Cholesterol Reference Range: Low Risk <200 Borderline 200-239 High Risk > 240HDL Cholesterol Reference Range: Low Risk >=60 High Risk <40LDL Cholesterol Reference Range: Optimal <100 Near Optimal 100-129 Borderline 130-159 High 160-189 Very High >=190IMMATURE RETICULOCYTE [id number] 08:16:00 Test Item Value Reference Range Comments IMMATURE RETIC FRACTION (BEAKER) (test xyir=2297) 8.600 % 2.300-13.400 RETICULOCYTE COUNT PCT (BEAKER) (test ztgs=924) 1.4 % 0.5-1.8 CBC W/PLT COUNT & AUTO [id number] 08:16:00 Test Item Value Reference Range Comments WHITE BLOOD CELL COUNT (BEAKER) (test ooin=559) 8.5 K/ L 3.5-10.5 RED BLOOD CELL COUNT (BEAKER) (test zesz=003) 4.49 M/ L 4.63-6.08 HEMOGLOBIN (BEAKER) (test iyin=837) 14.5 GM/DL 13.7-17.5 HEMATOCRIT (BEAKER) (test bbrr=098) 44.1 % 40.1-51.0 MEAN CORPUSCULAR VOLUME (BEAKER) (test cuhq=903) 98.2 fL 79.0-92.2 MEAN CORPUSCULAR HEMOGLOBIN (BEAKER) (test 32.3 pg 25.7-32.2 fryh=596) MEAN CORPUSCULAR HEMOGLOBIN CONC (BEAKER) (test 32.9 GM/DL 32.3-36.5 uuff=438) RED CELL DISTRIBUTION WIDTH (BEAKER) (test 12.8 % 11.6-14.4 ekaz=812) PLATELET COUNT (BEAKER) (test knrd=755) 365 K/CU MM 150-450 MEAN PLATELET VOLUME (BEAKER) (test ogim=198) 10.3 fL 9.4-12.4 NUCLEATED RED BLOOD CELLS (BEAKER) (test 0 /100 WBC 0-0 klbb=844) NEUTROPHILS RELATIVE PERCENT (BEAKER) (test 59 % oymm=696) LYMPHOCYTES RELATIVE PERCENT (BEAKER) (test 23 % bwyd=130) MONOCYTES RELATIVE PERCENT (BEAKER) (test 8 % gkfu=940) EOSINOPHILS RELATIVE PERCENT (BEAKER) (test 9 % yjen=993) BASOPHILS RELATIVE PERCENT (BEAKER) (test 1 % iijt=131) NEUTROPHILS ABSOLUTE COUNT (BEAKER) (test 5.00 K/ L 1.78-5.38 vlcc=340) LYMPHOCYTES ABSOLUTE COUNT (BEAKER) (test 1.94 K/ L 1.32-3.57 lwir=595) MONOCYTES ABSOLUTE COUNT (BEAKER) (test 0.67 K/ L 0.30-0.82 bytg=287) EOSINOPHILS ABSOLUTE COUNT (BEAKER) (test 0.73 K/ L 0.04-0.54 wbkf=164) BASOPHILS ABSOLUTE COUNT (BEAKER) (test 0.10 K/ L 0.01-0.08 lnmz=886) IMMATURE GRANULOCYTES-RELATIVE PERCENT (BEAKER) 0 % 0-1 (test iutl=9522) POCT-GLUCOSE [id number] 21:18:00 Test Item Value Reference Range Comments POC-GLUCOSE METER (BEAKER) 226 mg/dL 70-[address] [facility] [address] [facility] (test zizp=5939) [facility] [address] MR, BRAIN, WITHOUT [id number] 19:43:00FINAL REPORT MRI brain without contrast INDICATION: [...] thrombus cannot be excluded. The major proximal belkofski of [place] flow voids are maintained. Mild [...] Gregory Verified Date/Time: 02/12/2018 19:43:32 Reading Location: [facility] Radiology Reading Room POCT-GLUCOSE [id number] 19:01:00 Test Item Value Reference Range Comments POC-GLUCOSE METER (BEAKER) 362 mg/dL 70-110 TESTED AT [address] (test nkri=6061) [facility] [address] EEG AWAKE AND [id number] 17:46:00Reason for exam:->SeizureShould this be performed at the bedside?->YesCHI [facility] EEG REPORTDATE OF TEST : [id number] OF REPORT: [id number]: [id number]: [id number] time: 14: 04Stop time: 14:24ICD-10: R56.9CPT Code: 69350DAHAPIE: 40 y old 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, [...] this report.Queenie Paiz MD, PhDClinical Neurophysiology/Epilepsy AttendingCHI [facility] 05: 46 PMPOCT-GLUCOSE [id number] 15:33:00 Test Item Value Reference Range Comments POC-GLUCOSE METER (BEAKER) 213 mg/dL 70-[address] [facility] [address] [facility] (test wgnn=9422) [facility] [address] TSH/FREE T4 IF [id number] 09:35:00 Test Item Value Reference Range Comments THYROID STIMULATING HORMONE (BEAKER) (test 4.03 uIU/mL 0.35-4.94 bydr=950) HEMOGLOBIN [id number] 08:47:00 Test Item Value Reference Range Comments HEMOGLOBIN A1C (BEAKER) (test oysa=299) 6.5 % 4.3-6.1 POCT-GLUCOSE [id number] 07:55:00 Test Item Value Reference Range Comments POC-GLUCOSE METER (BEAKER) 219 mg/dL 70-[address] [facility] [address] (test tqer=1375) [facility] [address] [id number] 05:00:00 Test Item Value Reference Range Comments MAGNESIUM (BEAKER) (test tbuu=116) 2.1 mg/dL 1.6-2.6 BASIC METABOLIC [id number] 05:00:00 Test Item Value Reference Range Comments SODIUM (BEAKER) (test 139 meq/L 136-145 fzcd=199) POTASSIUM (BEAKER) (test 4.1 meq/L 3.5-5.1 xrrm=599) CHLORIDE (BEAKER) (test 109 meq/L 98-107 dxfb=018) CO2 (BEAKER) (test 25 meq/L 22-29 zlbk=776) BLOOD UREA NITROGEN 7 mg/dL 7-21 (BEAKER) (test rrpe=053) CREATININE (BEAKER) (test 0.81 mg/dL 0.57-1.25 jdsw=323) GLUCOSE RANDOM (BEAKER) 167 mg/dL 70-105 (test undf=800) CALCIUM (BEAKER) (test 9.0 mg/dL 8.4-10.2 ohem=831) EGFR (BEAKER) (test 104 mL/min/1.73 sq m ESTIMATED GFR IS NOT aymz=9430) ACCURATE CREATININE CLEARANCE IN PREDICTING GLOMERULAR FILTRATION RATE. ESTIMATED GFR IS NOT APPLICABLE FOR DIALYSIS PATIENTS. CBC W/PLT COUNT & AUTO [id number] 04:40:00 Test Item Value Reference Range Comments WHITE BLOOD CELL COUNT (BEAKER) (test nqrv=772) 11.3 K/ L 3.5-10.5 RED BLOOD CELL COUNT (BEAKER) (test qmuf=609) 4.09 M/ L 4.63-6.08 HEMOGLOBIN (BEAKER) (test pkfn=184) 13.1 GM/DL 13.7-17.5 HEMATOCRIT (BEAKER) (test yrxu=396) 39.8 % 40.1-51.0 MEAN CORPUSCULAR VOLUME (BEAKER) (test iexr=139) 97.3 fL 79.0-92.2 MEAN CORPUSCULAR HEMOGLOBIN (BEAKER) (test 32.0 pg 25.7-32.2 ydqo=272) MEAN CORPUSCULAR HEMOGLOBIN CONC (BEAKER) (test 32.9 GM/DL 32.3-36.5 oeek=815) RED CELL DISTRIBUTION WIDTH (BEAKER) (test 12.8 % 11.6-14.4 ucef=011) PLATELET COUNT (BEAKER) (test ditb=452) 344 K/CU MM 150-450 MEAN PLATELET VOLUME (BEAKER) (test ahqo=672) 9.5 fL 9.4-12.4 NUCLEATED RED BLOOD CELLS (BEAKER) (test 0 /100 WBC 0-0 ccme=920) NEUTROPHILS RELATIVE PERCENT (BEAKER) (test 61 % lvfr=889) LYMPHOCYTES RELATIVE PERCENT (BEAKER) (test 24 % nhhq=758) MONOCYTES RELATIVE PERCENT (BEAKER) (test 8 % acjn=716) EOSINOPHILS RELATIVE PERCENT (BEAKER) (test 7 % lmhj=256) BASOPHILS RELATIVE PERCENT (BEAKER) (test 1 % nfsa=328) NEUTROPHILS ABSOLUTE COUNT (BEAKER) (test 6.86 K/ L 1.78-5.38 cuci=777) LYMPHOCYTES ABSOLUTE COUNT (BEAKER) (test 2.67 K/ L 1.32-3.57 zyck=306) MONOCYTES ABSOLUTE COUNT (BEAKER) (test 0.85 K/ L 0.30-0.82 cuxi=117) EOSINOPHILS ABSOLUTE COUNT (BEAKER) (test 0.79 K/ L 0.04-0.54 ajdc=083) BASOPHILS ABSOLUTE COUNT (BEAKER) (test 0.07 K/ L 0.01-0.08 afkp=566) IMMATURE GRANULOCYTES-RELATIVE PERCENT (BEAKER) 0 % 0-1 (test gpxr=0563) POCT-GLUCOSE [id number] 04:31:00 Test Item Value Reference Range Comments POC-GLUCOSE METER (BEAKER) 183 mg/dL 70-[address] [facility] [address] [facility] (test jdts=9608) [facility] [address] RAD, ABDOMEN/KUB, 1 VIEW [id number] 01:33:00Reason for exam:->Abdominal distension, obtundationFINAL REPORT CLINICAL [...] Verified Date/ Time: 02/12/2018 01:33:19 Reading Location: [address] Transitional Reading Room POCT-GLUCOSE [id number] 00:49:00 Test Item Value Reference Range Comments POC-GLUCOSE METER (BEAKER) 346 mg/dL 70-[address] [facility] [address] [facility] (test eexk=3161) [facility] [address] CBC W/PLT COUNT & AUTO [id number] 00:44:00 Test Item Value Reference Range Comments WHITE BLOOD CELL COUNT (BEAKER) (test ddtf=267) 14.3 K/ L 3.5-10.5 RED BLOOD CELL COUNT (BEAKER) (test huyr=553) 4.26 M/ L 4.63-6.08 HEMOGLOBIN (BEAKER) (test vvai=253) 13.8 GM/DL 13.7-17.5 HEMATOCRIT (BEAKER) (test soxb=299) 42.1 % 40.1-51.0 MEAN CORPUSCULAR VOLUME (BEAKER) (test mmzb=654) 98.8 fL 79.0-92.2 MEAN CORPUSCULAR HEMOGLOBIN (BEAKER) (test 32.4 pg 25.7-32.2 qogt=767) MEAN CORPUSCULAR HEMOGLOBIN CONC (BEAKER) (test 32.8 GM/DL 32.3-36.5 dpyo=053) RED CELL DISTRIBUTION WIDTH (BEAKER) (test 12.9 % 11.6-14.4 lxhd=381) PLATELET COUNT (BEAKER) (test wnek=304) 366 K/CU MM 150-450 MEAN PLATELET VOLUME (BEAKER) (test bulz=851) 9.8 fL 9.4-12.4 NUCLEATED RED BLOOD CELLS (BEAKER) (test 0 /100 WBC 0-0 epap=670) NEUTROPHILS RELATIVE PERCENT (BEAKER) (test 74 % bkkz=797) LYMPHOCYTES RELATIVE PERCENT (BEAKER) (test 13 % yprt=384) MONOCYTES RELATIVE PERCENT (BEAKER) (test 7 % cwgt=135) EOSINOPHILS RELATIVE PERCENT (BEAKER) (test 5 % srds=424) BASOPHILS RELATIVE PERCENT (BEAKER) (test 1 % zklo=317) NEUTROPHILS ABSOLUTE COUNT (BEAKER) (test 10.60 K/ L 1.78-5.38 etla=629) LYMPHOCYTES ABSOLUTE COUNT (BEAKER) (test 1.80 K/ L 1.32-3.57 chci=635) MONOCYTES ABSOLUTE COUNT (BEAKER) (test 1.06 K/ L 0.30-0.82 tjuu=321) EOSINOPHILS ABSOLUTE COUNT (BEAKER) (test 0.69 K/ L 0.04-0.54 kpqo=605) BASOPHILS ABSOLUTE COUNT (BEAKER) (test 0.09 K/ L 0.01-0.08 fufm=827) IMMATURE GRANULOCYTES-RELATIVE PERCENT (BEAKER) 0 % 0-1 (test btkf=2189) RAPID DRUG SCREEN, [id number] 00:35:00 Test Item Value Reference Range Comments BARBITURATE URINE (BEAKER) (test fgvh=587) Negative Negative BENZODIAZEPINE SCREEN URINE (BEAKER) (test Negative Negative hkrw=835) COCAINE (METAB.) SCREEN (BEAKER) (test alah=2425) Negative Negative METHADONE SCREEN (BEAKER) (test mftq=1693) Negative Negative OPIATE SCREEN URINE (BEAKER) (test aaqm=832) Negative Negative CANNABINOID SCREEN URINE (BEAKER) (test dwpv=685) Negative Negative AMPH/METHAMPH SCREEN (BEAKER) (test jpze=3883) Negative Negative PHENCYCLIDINE SCREEN URINE (BEAKER) (test wsan=137) Negative Negative OXYCODONE SCREEN URINE (BEAKER) (test gobz=1815) Negative Negative DRUG CUTOFF CONC.Cocaine 300 ng/mL Cannabinoid 50 ng/mL Benzodiazepine 200 ng/mLBarbiturate 200 ng/ mLPhencyclidine 25 ng/mLOpiate 300 ng/mLMethadone 300 ng/mLAmphetamine/ 1000 ng/mL MethamphetamineOxycodone 300 ng/mLThis assay provides an unconfirmed qualitative test result for the clinical management of patients in emergency situations. Chain of custody not maintained. Some rmrt-xdj-vqflvlk medications, as well as adulterants, may cause inaccurate results. Clinical correlation should be applied. A more comprehensive drug screen or confirmation of a detected drug may be performed upon request.TROPONIN [id number] 00:15:00 Test Item Value Reference Range Comments TROPONIN I (BEAKER) (test jjht=654) < ng/mL 0.00-0.03 Troponin I (TnI) levels [...] acute neurological disease, and persistent tachyarrhythmia.COMPREHENSIVE METABOLIC [id number] 00:09:00 Test Item Value Reference Range Comments TOTAL PROTEIN (BEAKER) 6.9 gm/dL 6.0-8.3 (test gnyy=903) ALBUMIN (BEAKER) (test 3.8 g/dL 3.5-5.0 fufr=3679) ALKALINE PHOSPHATASE 95 U/L 40-150 (BEAKER) (test xjbz=901) BILIRUBIN TOTAL (BEAKER) 0.6 mg/dL 0.2-1.2 (test aems=262) SODIUM (BEAKER) (test 135 meq/L 136-145 rlpp=920) POTASSIUM (BEAKER) (test 5.0 meq/L 3.5-5.1 oska=445) CHLORIDE (BEAKER) (test 104 meq/L 98-107 fxru=953) CO2 (BEAKER) (test 25 meq/L 22-29 obtt=588) BLOOD UREA NITROGEN 8 mg/dL 7-21 (BEAKER) (test xvmu=063) CREATININE (BEAKER) (test 1.03 mg/dL 0.57-1.25 lgcg=839) GLUCOSE RANDOM (BEAKER) 292 mg/dL 70-105 (test qobf=942) CALCIUM (BEAKER) (test 9.2 mg/dL 8.4-10.2 gaxp=526) AST (SGOT) (BEAKER) (test 23 U/L 5-34 prbp=254) ALT (SGPT) (BEAKER) (test 17 U/L 6-55 tzks=575) EGFR (BEAKER) (test 78 mL/min/1.73 sq m ESTIMATED GFR IS NOT gsnz=4255) ACCURATE CREATININE CLEARANCE IN PREDICTING GLOMERULAR FILTRATION RATE. ESTIMATED GFR IS NOT APPLICABLE FOR DIALYSIS PATIENTS. URINALYSIS W/ [id number] 00:06:00 Test Item Value Reference Range Comments COLOR (BEAKER) (test yfos=802) Light Yellow CLARITY (BEAKER) (test hdzv=781) Clear SPECIFIC GRAVITY UA (BEAKER) (test dtfv=413) 1.007 1.001-1.035 PH UA (BEAKER) (test lgzq=239) 6.5 5.0-8.0 PROTEIN UA (BEAKER) (test ocmf=848) Negative Negative GLUCOSE UA (BEAKER) (test gjex=676) 500 mg/dL Negative KETONES UA (BEAKER) (test mwhj=291) Negative Negative BILIRUBIN UA (BEAKER) (test zjsr=475) Negative Negative BLOOD UA (BEAKER) (test baoi=639) Negative Negative NITRITE UA (BEAKER) (test lmoz=930) Negative Negative LEUKOCYTE ESTERASE UA (BEAKER) (test kyyi=526) Negative Negative UROBILINOGEN UA (BEAKER) (test drkp=212) 0.2 mg/dL 0.2-1.0 RBC UA (BEAKER) (test jtng=998) < /HPF WBC UA (BEAKER) (test zaaf=477) 1 /HPF MUCUS (BEAKER) (test qpsw=7859) Rare SOURCE(BEAKER) (test abnv=7800) RAD, CHEST, 1 VIEW, NON [id number] 23:11:00Reason for exam:->Obtundation with coarse respirations, baselineShould this be performed at the bedside?-> YesFINAL REPORT RAD, CHEST, 1 VIEW, NON DEPT INDICATION: Obtundation with coarserespirations, baseline COMPARISON: None. FINDINGS: Portable frontal view of the chest. IMPRESSION: Support Lines: None. Lungs and pleura: Clear lungs. No pneumothorax.Heart and mediastinum: Unremarkable. Additional findings: Fluid and gaseous distention of the gastric lumen. Signed: JR Lozano [facility] Verified Date/Time: 02/11/2018 23:11:04 Reading Location: [address]Reading [address]
[2018-06-13 20:12] LABS: Absolute Lymphocytes (CBC) 1.4 K/uL (0.7-4.9); Absolute Monocytes 0.7 K/uL (0.1-1.3); Absolute Neutrophil 12.9 K/uL (1.8-8.0); Basophils % 0.2 % (0-1.3); Lymphocytes % 9.2 % (15.3-44.8); Monocytes % 4.9 % (3.3-12.3); RBC Red Blood Cell Count 4.37 M/uL (4.33-5.43)
[2018-06-13 20:39] LABS: ALT/SGPT 20 U/L (12-78); AST/SGOT 17 U/L (15-37); Albumin 3.5 g/dL (3.4-5.0); Alkaline Phosphatase 84 U/L (45-117); BUN Blood Urea Nitrogen 13 mg/dL (7-18); Bicarbonate 26 mmol/L (21-32); Bilirubin Direct < 0.1 mg/dL (0-0.2); Bilirubin Total 0.2 mg/dL (0.2-1.0); Glucose Level 173 mg/dL (74-106); Potassium 3.9 mmol/L (3.5-5.1); Protein, Total 7.2 g/dL (6.4-8.2); Sodium Level 146 mmol/L (136-145)
--- NOTE | 2018-06-13 21:57 | ER ---
Nurse's Notes [facility] Name: Surjit Stubbs Age: 43 yrs Sex: Male : 1975 Arrival Date: 06/13/2018 Time: 19:28 Bed 17 Private MD: Diagnosis: Alcohol abuse;Hypoglycemia, unspecified-possible Presentation: 06/13 19:24 Presenting complaint: EMS states: EMS were called for low blood sugar. Patient said he cc3 don't know what happened because he was asleep and when he woke up the EMS were already at their house. EMS states that the patient's father checked the patient's blood sugar which was 40 mg/dL and gave his son a Glucagon shot then called the EMS. When EMS came the patient is awake, alert and oriented and checked the patient's blood sugar and it was up to 70 mg/dL. 19:24 Transition of care: patient was not received from another setting of care. Onset of cc3 symptoms was June 13, 2018. Risk Assessment: Do you want to hurt yourself or someone else? Patient reports no desire to harm self or others. Initial Sepsis Screen: Does the patient meet any 2 criteria? No. Patient's initial sepsis screen is negative. Does the patient have a suspected source of infection? No. Patient's initial sepsis screen is negative. Care prior to arrival: Medication(s) given: Glucagon, shot given by the patient's father. 19:24 Method Of Arrival: EMS: [facility] cc3 19:24 Acuity: TOI 3 cc3 Triage Assessment: 19:24 General: Appears in no apparent distress. comfortable, unkempt, Behavior is calm, cc3 cooperative, appropriate for age. Pain: Denies pain. EENT: No signs and/or symptoms were reported regarding the EENT system. Neuro: Level of Consciousness is awake, alert, obeys commands, Oriented to person, place, time, situation, Appropriate for age. Cardiovascular: Denies chest pain, Patient's skin is warm and dry. Respiratory: Airway is patent Respiratory effort is even, unlabored, Respiratory pattern is regular, symmetrical. GI: Abdomen is round non-distended. : No signs and/or symptoms were reported regarding the genitourinary system. Derm: No signs and/or symptoms reported regarding the dermatologic system. Musculoskeletal: Circulation, motion, and sensation intact. Range of motion: intact in all extremities. 19:24 General: Smells of alcohol. cc3 Historical: - Allergies: 19:24 tramadol; cc3 - Home Meds: 19:24 acetaminophen-codeine 300-60 mg Oral tab [Active]; [place] Thyroid 60 mg Oral tab cc3 [Active]; gabapentin 100 mg Oral cap [Active]; gemfibrozil 600 mg Oral tab 1 tab 2 times per day [Active]; Glucagon Emergency Kit (human) 1 mg IM kit 1 mL [Active]; levetiracetam 500 mg Oral tab 1 tab 2 times per day [Active]; Novolog Sub-Q [Active]; - PMHx: 19:24 Diabetes - IDDM; High Cholesterol; Hypothyroidism; Seizures; neuropathy; cc3 - PSHx: 19:24 None; cc3 - Immunization history:: Adult Immunizations not up to date. - Social history:: Smoking status: Patient uses tobacco products, smokes one pack cigarettes per day. - Ebola Screening: : No symptoms or risks identified at this time. Screenin:24 Abuse screen: Denies threats or abuse. Denies injuries from another. Nutritional cc3 screening: No deficits noted. Tuberculosis screening: No symptoms or risk factors identified. Fall Risk Ambulatory Aid- None/Bed Rest/Nurse Assist (0 pts). Gait- Normal/Bed Rest/Wheelchair (0 pts) Mental Status- Oriented to own ability (0 pts). Assessment: 19:24 General: see triage assessment. cc3 20:30 Reassessment: Patient appears in no apparent distress at this time. Patient and/or cc3 family updated on plan of care and expected duration. Pain level reassessed. Patient is alert, oriented x 3, equal unlabored respirations, skin warm/dry/pink. 20:40 Reassessment: As per MELANIE Bacon the patient's father came and left his contact number [phone]. 20:50 Reassessment: Patient wanting to get discharged, informed him that we're waiting on his cc3 lab results. 21:17 Reassessment: Patient appears in no apparent distress at this time. Patient and/or cc3 family updated on plan of care and expected duration. Pain level reassessed. Patient is alert, oriented x 3, equal unlabored respirations, skin warm/dry/pink. Patient wanting to go home, HUNTER Ybarra informed. 22:00 Reassessment: Patient appears in no apparent distress at this time. Patient and/or cc3 family updated on plan of care and expected duration. Pain level reassessed. Patient is alert, oriented x 3, equal unlabored respirations, skin warm/dry/pink. HUNTER Ybarra discharged the patient home, no prescription given. IV cannula removed. Patient called his father's mobile number for his ride home but he said nobody answered and left ER, even HUNTER ybarra saw the patient left. 23:10 Reassessment: Patient's father came and looking for his son, charge nurse Aurora perez explained to him that the patient's been discharged home already and the father said he's not yet home. 23:30 Reassessment: I called the patient's father mobile number [phone] to follow up if cc3 his son got home already but nobody answered, ruy Simon informed and was told to make a follow up call again later. 23:45 Reassessment: Called again the father's mobile number at [phone] and the patient cc3 himself answered the call and said he already got home earlier and that he and his father has seen each other at home already and that his father is now asleep and that he appreciated us making follow up calls to check to see if he's got home safe, charge nurse Simon and HUNTER Ybarra informed. Vital Signs: 19:24 BP 139 / 97; Pulse 100; Resp 19 S; Temp 98.1(O); Pulse Ox 100% on R/A; Weight 68.04 kg cc3 (R); Height 5 ft. 9 in. (175.26 cm) (R); 20:45 BP 126 / 96; Pulse 94; Resp 20 S; Pulse Ox 100% on R/A; cc3 21:17 BP 122 / 93; Pulse 94; Resp 19 S; Pulse Ox 100% on R/A; cc3 21:57 BP 125 / 87; Pulse 92; Resp 18 S; Pulse Ox 100% on R/A; cc3 19:24 Body Mass Index 22.15 (68.04 kg, 175.26 cm) 3 ED Course: 19:24 Arm band placed on right wrist. cc3 19:24 Patient has correct armband on for positive identification. Bed in low position. Call cc3 light in reach. Side rails up X 1. production supervisor trainee on. Pulse ox on. NIBP on. 19:28 Patient arrived in ED. ds1 19:37 Akash Fuentes, INTAKE COUNSELOR is PHCP. pm1 19:37 Jame Vaughan MD is Attending Physician. pm1 19:37 Adela Dominguez is Primary Nurse. cc3 19:49 Triage completed. cc3 22:00 No provider procedures requiring assistance completed. IV discontinued, intact, cc3 bleeding controlled, No redness/swelling at site. Pressure dressing applied. Administered Medications: No medications were administered Point of Care Testing: Blood Glucose: 19:31 Blood Glucose: 149 mg/dL; cc3 21:52 Blood Glucose: 161 mg/dL; cc3 Ranges: Outcome: 21:56 Discharge ordered by . pm1 22:00 Discharged to home ambulatory. cc3 22:00 Condition: stable 22:00 Discharge instructions given to patient, Instructed on discharge instructions, follow up and referral plans. Demonstrated understanding of instructions, follow-up care. 22:04 Patient left the ED. 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 Patient cc3 and/or family updated on plan of care and expected duration. Pain level reassessed. Patient is alert, oriented x 3, equal unlabored respirations, skin warm/dry/pink. cc3 : 22:00 Reassessment: Patient appears in no apparent distress at this time. Patient cc3 and/or family updated on plan of care and expected duration. Pain level reassessed. Patient is alert, oriented x 3, equal unlabored respirations, skin warm/dry/pink. HUNTER Ybarra discharged the patient home, no prescription given. IV cannula removed. Patient called his father's mobile number for his ride home but nobody answered and left ER. cc3 23: 22:00 Reassessment: Patient appears in no apparent distress at this time. Patient cc3 and/or family updated on plan of care and expected duration. Pain level reassessed. Patient is alert, oriented x 3, equal unlabored respirations, skin warm/dry/pink. HUNTER Ybarra discharged the patient home, no prescription given. IV cannula removed. Patient called his father's mobile number for his ride home but nobody answered, left a voicemail and left ER. cc3 23:15 22:00 Reassessment: Patient appears in no apparent distress at this time. Patient cc3 and/or family updated on plan of care and expected duration. Pain level reassessed. Patient is alert, oriented x 3, equal unlabored respirations, skin warm/dry/pink. HUNTER Ybarra discharged the patient home, no prescription given. IV cannula removed. Patient called his father's mobile number for his ride home but he said nobody answered and left ER. cc3
--- NOTE | 2018-06-13 21:57 | EDPHYS ---
Physician Documentation [facility] Name: Surjit Stubbs Age: 43 yrs Sex: Male : 1975 Arrival Date: 06/13/2018 Time: 19:28 Bed 17 Private MD: ED Physician Jame Vaughan HPI: 06/13 20:00 This 43 yrs old Male presents to ER via EMS with complaints of Low Blood pm1 Sugar. 20:00 The patient or guardian reports hypoglycemia, that was potentially precipitated by pm1 unknown, Treatment prior to arrival includes: administration of glucagon. Onset: The symptoms/episode began/occurred just prior to arrival. Associated signs and symptoms: Pertinent negatives: None. Current symptoms: In the emergency department the patient's symptoms have resolved, the patient is alert and fully oriented, has normal speech, has normal responsiveness, has no confusion. The patient has experienced similar episodes in the past, a few times. The patient has not recently seen a physician. Patient was difficult to arouse according to father so he checked his sugar and gave him a shot of glucagon. On arrival by EMS, the patient was without any symptoms and had a glucose within normal limits. Historical: - Allergies: 19:24 tramadol; cc3 - Home Meds: 19:24 acetaminophen-codeine 300-60 mg Oral tab [Active]; [place] Thyroid 60 mg Oral tab cc3 [Active]; gabapentin 100 mg Oral cap [Active]; gemfibrozil 600 mg Oral tab 1 tab 2 times per day [Active]; Glucagon Emergency Kit (human) 1 mg IM kit 1 mL [Active]; levetiracetam 500 mg Oral tab 1 tab 2 times per day [Active]; Novolog Sub-Q [Active]; - PMHx: 19:24 Diabetes - IDDM; High Cholesterol; Hypothyroidism; Seizures; neuropathy; cc3 - PSHx: 19:24 None; cc3 - Immunization history:: Adult Immunizations not up to date. - Social history:: Smoking status: Patient uses tobacco products, smokes one pack cigarettes per day. - Ebola Screening: : No symptoms or risks identified at this time. ROS: 20:00 Constitutional: Negative for fever, chills, and weight loss, Eyes: Negative for injury, pm1 pain, redness, and discharge, ENT: Negative for injury, pain, and discharge, Neck: Negative for injury, pain, and swelling, Cardiovascular: Negative for chest pain, palpitations, and edema, Respiratory: Negative for shortness of breath, cough, wheezing, and pleuritic chest pain, Abdomen/GI: Negative for abdominal pain, nausea, vomiting, diarrhea, and constipation, Back: Negative for injury and pain, : Negative for injury, bleeding, discharge, and swelling, MS/Extremity: Negative for injury and deformity, Skin: Negative for injury, rash, and discoloration, Neuro: Negative for headache, weakness, numbness, tingling, and seizure. Exam: 20:00 Head/Face: Normocephalic, atraumatic. Eyes: Pupils equal round and reactive to light, pm1 extra-ocular motions intact. Lids and lashes normal. Conjunctiva and sclera are non-icteric and not injected. Cornea within normal limits. Periorbital areas with no swelling, redness, or edema. ENT: Nares patent. No nasal discharge, no septal abnormalities noted. Tympanic membranes are normal and external auditory canals are clear. Oropharynx with no redness, swelling, or masses, exudates, or evidence of obstruction, uvula midline. Mucous membranes moist. Neck: Trachea midline, no thyromegaly or masses palpated, and no cervical lymphadenopathy. Supple, full range of motion without nuchal rigidity, or vertebral point tenderness. No Meningismus. Chest/axilla: Normal chest wall appearance and motion. Nontender with no deformity. No lesions are appreciated. Cardiovascular: Regular rate and rhythm with a normal S1 and S2. No gallops, murmurs, or rubs. Normal PMI, no JVD. No pulse deficits. Respiratory: Lungs have equal breath sounds bilaterally, clear to auscultation and percussion. No rales, rhonchi or wheezes noted. No increased work of breathing, no retractions or nasal flaring. 20:00 Abdomen/GI: Soft, non-tender, with normal bowel sounds. No distension or tympany. No guarding or rebound. No evidence of tenderness throughout. Back: No spinal tenderness. No costovertebral tenderness. Full range of motion. Skin: Warm, dry with normal turgor. Normal color with no rashes, no lesions, and no evidence of cellulitis. MS/ Extremity: Pulses equal, no cyanosis. Neurovascular intact. Full, normal range of motion. 20:00 Constitutional: The patient appears in no acute distress, alert, awake, comfortable, non-diaphoretic, non-toxic, well developed, well hydrated, well groomed, well nourished, smells of alcohol, ETOH. 20:00 Neuro: Orientation: is normal, Mentation: is normal, Motor: is normal, moves all fours, Sensation: is normal, no obvious gross deficits, Gait: is steady, at a normal pace, without difficulty. Vital Signs: 19:24 BP 139 / 97; Pulse 100; Resp 19 S; Temp 98.1(O); Pulse Ox 100% on R/A; Weight 68.04 kg cc3 (R); Height 5 ft. 9 in. (175.26 cm) (R); 20:45 BP 126 / 96; Pulse 94; Resp 20 S; Pulse Ox 100% on R/A; cc3 21:17 BP 122 / 93; Pulse 94; Resp 19 S; Pulse Ox 100% on R/A; cc3 21:57 BP 125 / 87; Pulse 92; Resp 18 S; Pulse Ox 100% on R/A; cc3 19:24 Body Mass Index 22.15 (68.04 kg, 175.26 cm) cc3 MDM: 19:45 Patient medically screened. pm1 21:55 Data reviewed: vital signs. Data interpreted: Pulse oximetry: on room air is 100 %. pm1 Interpretation: normal. Counseling: I had a detailed discussion with the patient and/or guardian regarding: the historical points, exam findings, and any diagnostic results supporting the discharge/admit diagnosis, lab results, the need for outpatient follow up, to return to the emergency department if symptoms worsen or persist or if there are any questions or concerns that arise at home. 06/13 19:51 Order name: Basic Metabolic Panel; Complete Time: 21:37 pm1 06/13 19:51 Order name: CBC with Diff; Complete Time: 20:26 pm1 06/13 19:51 Order name: Hepatic Function; Complete Time: 21:37 pm1 06/13 19:51 Order name: IV Saline Lock; Complete Time: 20:07 pm1 06/13 19:51 Order name: Labs collected and sent; Complete Time: 20:07 pm1 06/13 19:51 Order name: ETOH Level; Complete Time: 21:37 pm1 06/13 19:52 Order name: [place]. Order: Regular diet; Complete Time: 20:07 pm1 06/13 21:54 Order name: Glucose Level; Complete Time: 21:55 pm1 Administered Medications: No medications were administered Point of Care Testing: Blood Glucose: 19:31 Blood Glucose: 149 mg/dL; cc3 21:52 Blood Glucose: 161 mg/dL; cc3 Ranges: Critical Glucose Levels:Adult <50 mg/dl or >400 mg/dl <40 mg/dl or >180 mg/dl Disposition: 06/14 07:55 Co-signature as Attending Physician, Jame Vaughan MD I agree with the assessment and zarina plan of care. Disposition: 06/13/18 21:56 Discharged to Home. Impression: Alcohol abuse, Hypoglycemia, unspecified - possible. - Condition is Stable. - Discharge Instructions: Finding Treatment for Addiction, Hypoglycemia, Alcohol Abuse and Nutrition. - Medication Reconciliation Form, Thank You Letter, Antibiotic Education, Prescription Opioid Use form. - Follow up: Emergency Department; When: As needed; Reason: Worsening of condition. Follow up: Private Physician; When: 2 - 3 days; Reason: Recheck today's complaints, Continuance of care, Re-evaluation by your physician. - Problem is new. - Symptoms have improved. Signatures: Dispatcher [employer] Jame Pace MD MD cha Marinas, Patrick, COILED TUBING SUPERVISOR COILED TUBING SUPERVISOR pm1 Adela Dominguez cc3 Corrections: (The following items were deleted from the chart) 02 21:57 21:56 06/13/2018 21:56 Discharged to Home. Impression: Alcohol abuse. Condition is pm1 Stable. Forms are Medication Reconciliation Form, Thank You Letter, Antibiotic Education, Prescription Opioid Use. Follow up: Emergency Department; When: As needed; Reason: Worsening of condition. Follow up: Private Physician; When: 2 - 3 days; Reason: Recheck today's complaints, Continuance of care, Re-evaluation by your physician. Problem is new. Symptoms have improved. pm1 22:04 21:57 06/13/2018 21:56 Discharged to Home. Impression: Alcohol abuse; Hypoglycemia, cc3 unspecified - possible. Condition is Stable. Forms are Medication Reconciliation Form, Thank You Letter, Antibiotic Education, Prescription Opioid Use. Follow up: Emergency Department; When: As needed; Reason: Worsening of condition. Follow up: Private Physician; When: 2 - 3 days; Reason: Recheck today's complaints, Continuance of care, Re-evaluation by your physician. Problem is new. Symptoms have improved. pm1
[2018-06-13 23:34] VITALS: O2SAT 100
[2018-06-13 23:35] VITALS: BP 122/93
== END 2018-06-13 22:04 | disposition home or self-care (01) ==
LOC: ER 19:27
DX: F10.10 Alcohol abuse, uncomplicated (principal); E03.9 Hypothyroidism, unspecified; E78.00 Pure hypercholesterolemia, unspecified; Z79.4 Long term (current) use of insulin; Z88.5 Allergy status to narcotic agent
CPT/HCPCS: 36415; 80048; 80076; 80320; 82962; 85025; 99284

== ENCOUNTER 2018-06-20 11:37 | Emergency (ER) | payer SELFPAY ==
--- OUTSIDE RECORDS SUMMARY | 2018-06-20 11:39 | XMS REPORT | Clinical Summary ---
:1975 Author Organization [facility] Address [address] [place] [address] Care Team Providers Name Role Phone Unavailable [...] (HCC); MD JUANITA Leukocytosis, unspecified type after 06/19/2017 Immunizations Name Dates Previously Given Next Due [...] procedure are in the results section. after 06/19/2017 Results RHYTHM STRIP - SCAN (02/14/2018 1:22 PM CDT) Narrative Performed At POC-Glucose meter (02/13/2018 4:58 PM CDT)Only the most recent of9 resultswithin the time period is included. POC-Glucose Meter 232 (H)Comment: TESTED AT 70 - 110 mg/dL [place] [id number] [facility] [address] Specimen Blood Performing Organization Address City/State/Zipcode Phone Number [address] [phone] CENTER CTA brain (02/13/2018 4:35 PM CDT) Narrative Performed At FINAL REPORT a[facility]al[facility] CTV brain 02/13/2018 4:35 PM CLINICAL INDICATION: [...] MD Report Verified Date/Time:02/13/2018 16:41:24 Reading Location: [facility] Radiology Reading Room Procedure Note Interface, External [...] Report Verified Date/Time: 02/13/2018 16:41:24 Reading Location: [facility] Radiology Reading Room Performing Organization Address City/State/Zipcode Phone Number [facility] Iron, TIBC, % sat. (without ferritin) (02/13/2018 6:40 AM CDT) Iron 49 40 - 160 ug/dL [facility] TIBC 231 (L) 250 - 450 ug/dL [facility] Iron % Saturation 21 20 - 55 % [facility] Specimen Blood Performing Organization Address City/[facility]/Zipcode Phone Number [facility] [address] [place] [address] [phone] [place] Immature reticulocyte fraction (02/13/2018 6:40 AM CDT) Immature Reticulocyte 8.600Comment: 2.300 - 13.400 % [facility] % Retic 1.4 0.5 - 1.8 % [facility] Specimen Blood Performing Organization Address City/State/Zipcode Phone Number [address] [address] [phone] [place] CBC with platelet count + automated diff (02/13/2018 6:40 AM CDT)Only the most recent of3 resultswithin the time period is included. WBC 8.5 3.5 - 10.5 K/L [facility] RBC 4.49 (L) 4.63 - 6.08 M/L [facility] Hemoglobin 14.5 13.7 - 17.5 GM/DL [facility] Hematocrit 44.1 40.1 - 51.0 % [facility] MCV 98.2 (H) 79.0 - 92.2 fL [facility] MCH 32.3 (H) 25.7 - 32.2 pg [facility] MCHC 32.9 32.3 - 36.5 GM/DL [facility] RDW 12.8 11.6 - 14.4 % [facility] Platelets 365 150 - 450 K/CU MM [facility] MPV 10.3 9.4 - 12.4 fL [facility] nRBC 0 0 - 0 /100 WBC [facility] % Neutros 59 % [facility] % Lymphs 23 % [facility] % Monos 8 % [facility] % Eos 9 % [facility] % Baso 1 % [facility] # Neutros 5.00 1.78 - 5.38 K/L [facility] # Lymphs 1.94 1.32 - 3.57 K/L [facility] # Monos 0.67 0.30 - 0.82 K/L [facility] # Eos 0.73 (H) 0.04 - 0.54 K/L [facility] # Baso 0.10 (H) 0.01 - 0.08 K/L [facility] Immature Granulocytes-Relative 0 0 - 1 % [facility] Specimen Blood Performing Organization Address [facility] Phone Number [address] [phone] CENTER Lipid panel (02/13/2018 6:40 AM CDT) Triglycerides 189Comment: Specimen slightly mg/dL [facility] Cholesterol 265Comment: Specimen slightly mg/dL [facility] HDL 46 mg/dL [facility] LDL Calculated 181 mg/dL [facility] Specimen Blood Narrative Performed At [facility] Triglyceride Reference Range: Low Risk <150 [id number] High Risk 200-499 Very High Risk>=500 Cholesterol Reference Range: Low Risk <200 [id number] High Risk>240 HDL Cholesterol Reference Range: Low Risk >=60 High Risk <40 LDL Cholesterol Reference Range: Optimal<100 Near [id number] Very High >=190 Performing Organization Address City/[facility] Phone Number [address] [address] [place] Basic metabolic panel (02/13/2018 6:40 AM CDT)Only the most recent of2 resultswithin the time period is included. Sodium 134 (L) 136 - 145 meq/L [facility] Potassium 5.4 (H)Comment: Specimen 3.5 - 5.1 meq/L [facility] slightly hemolyzed [facility] Chloride 101 98 - 107 meq/L [facility] CO2 26 22 - 29 meq/L [facility] BUN 9 7 - 21 mg/dL [facility] Creatinine 1.01Comment: Specimen 0.57 - 1.25 mg/dL [facility] hemolyzed [facility] Glucose 347 (H) 70 - 105 mg/dL [facility] Calcium 8.9 8.4 - 10.2 mg/dL [facility] EGFR 80Comment: ESTIMATED GFR IS mL/min/1.73 sq m [facility] NOT ACCURATE CREATININE [facility] CLEARANCE IN PREDICTING GLOMERULAR FILTRATION RATE. ESTIMATED GFR IS NOT APPLICABLE FOR DIALYSIS PATIENTS. Specimen Blood Performing Organization Address City/State/Zipcode Phone Number [facility] [address] [place] [address] [place] MR brain without IV contrast (02/12/2018 7:08 PM CDT) Narrative Performed At FINAL REPORT [facility] MRI brain without contrast INDICATION: New onset [...] thrombus cannot be excluded. The major proximal rampart of [place]za flow voids are maintained. Mild [...] MD Report Verified Date/Time:02/12/2018 19:43:32 Reading Location: [facility] Radiology Reading Room Procedure Note Interface, External [...] thrombus cannot be excluded. The major proximal rampart of [place] flow voids are maintained. Mild [...] Report Verified Date/Time: 02/12/2018 19:43:32 Reading Location: [facility] Radiology Reading Room Performing Organization Address City/State/Zipcode Phone Number GE RIS EEG AWAKE AND DROWSY (02/12/2018 2:47 PM CDT) Narrative Performed At [facility] EEG REPORT GE RIS DATE OF TEST: 02-12-2018 DATE OF REPORT: 02-12-2018 ACC: [id number] EE Start time: 14:04 Stop time: 14:24 ICD-10: R56.9 CPT Code: 18396 HISTORY: 40 y old male with h/o [...] Queenie Paiz MD, PhD Clinical Neurophysiology/Epilepsy Attending [facility] Procedure Note Interface, External Ris In - 02/12/2018 5:46 PM CDT [facility] EEG REPORT DATE OF TEST: 02-12-2018 DATE OF REPORT: 02-12-2018 ACC: [id number] EE Start time: 14:04 Stop time: 14:24 ICD-10: R56.9 CPT Code: 56131 HISTORY: 40 y old male with h/o [...] Queenie Paiz MD, PhD Clinical Neurophysiology/Epilepsy Attending [facility] Performing Organization Address City/State/Zipcode Phone Number [facility] TSH/Free T4 If Indicated (02/12/2018 8:49 AM CDT) TSH 4.03 0.35 - 4.94 uIU/mL [facility] Specimen Blood - Arm, Right Performing Organization Address City/State/Zipcode Phone Number [address] [address] CENTER Magnesium (02/12/2018 4:20 AM CDT) Magnesium 2.1 1.6 - 2.6 mg/dL [facility] Specimen Blood Performing Organization Address City/[facility]/Zipcode Phone Number [address] [address] CENTER XR abdomen / KUB 1 view (02/12/2018 1:26 AM CDT) Narrative Performed At FINAL REPORT [facility] CLINICAL HISTORY: Abdominal distension, obtundation TECHNIQUE: RAD, [...] MD Report Verified Date/Time:02/12/2018 01:33:19 Reading Location: [address] Reading Room Procedure Note Interface, External [...] Report Verified Date/Time: 02/12/2018 01:33:19 Reading Location: [facility] [id number] Transitional Reading Room Performing Organization Address [facility] Phone Number [facility] Troponin I (02/11/2018 11:42 PM CDT) Troponin I <0.01 0.00 - 0.03 ng/mL [facility] Specimen Blood Narrative Performed At [facility] Troponin I (TnI) levels must be [...] disease, and persistent tachyarrhythmia. Performing Organization Address [facility] Phone Number [address] [address] [place] Blood culture (02/11/2018 11:42 PM CDT) Result No growth in 5 days [facility] Specimen Blood - Arm, Left Performing Organization Address [facility] Phone Number [address] [address] [place] Hemoglobin A1c (02/11/2018 11:42 PM CDT) Hemoglobin A1C 6.5 (H) 4.3 - 6.1 % [facility] Specimen Blood Performing Organization Address [facility] Phone Number [address] [address] [place] Comprehensive metabolic panel (02/11/2018 11:42 PM CDT) Protein, Total 6.9 6.0 - 8.3 gm/dL [facility] Albumin 3.8 3.5 - 5.0 g/dL [facility] Alkaline Phosphatase 95 40 - 150 U/L [facility] Total Bilirubin 0.6 0.2 - 1.2 mg/dL [facility] Sodium 135 (L) 136 - 145 meq/L [facility] Potassium 5.0 3.5 - 5.1 meq/L [facility] Chloride 104 98 - 107 meq/L [facility] CO2 25 22 - 29 meq/L [facility] BUN 8 7 - 21 mg/dL [facility] Creatinine 1.03 0.57 - 1.25 mg/dL [facility] Glucose 292 (H) 70 - 105 mg/dL [facility] Calcium 9.2 8.4 - 10.2 mg/dL [facility] AST 23 5 - 34 U/L [facility] ALT 17 6 - 55 U/L [facility] EGFR 78Comment: ESTIMATED GFR mL/min/1.73 sq m [facility] IS NOT ACCURATE [facility] CREATININE CLEARANCE IN PREDICTING GLOMERULAR FILTRATION RATE. ESTIMATED GFR IS NOT APPLICABLE FOR DIALYSIS PATIENTS. Specimen Blood Performing Organization Address City/State/Zipcode Phone Number [facility] [address] [place] [address] [phone] CENTER Rapid drug screen, urine (02/11/2018 11:17 PM CDT) Barbiturate Screen Negative Negative [facility] Benzodiazepine Screen Negative Negative [facility] Cocaine (Metab.) Screen Negative Negative [facility] Methadone Screen Negative Negative [facility] Opiate Screen Negative Negative [facility] Cannabinoid Screen Negative Negative [facility] Amph/Methamph Screen Negative Negative [facility] Phencyclidine Screen Negative Negative [facility] Oxycodone Screen Negative Negative [facility] Specimen Urine Narrative Performed At [facility] DRUGCUTOFF CONC. Cocaine 300 ng/mL Spgcglpyjvk79 ng/mL Zqhdmrfgeigbdf113 ng/mL Barbiturate 200 ng/mL Kjodwrwrdmskt78 ng/mL Zvpbql479 ng/mL Methadone 300 ng/mL Amphetamine/ 1000 ng/mL Methamphetamine Oxycodone 300 ng/mL This assay provides an unconfirmed qualitative test result for the clinical management of patients in emergency situations. Chain of custody not maintained. Some znmq-bhr-xojmyyp medications, as well as adulterants, may cause inaccurate results. Clinical correlation should be applied. A more comprehensive drug screen or confirmation of a detected drug may be performed upon request. Performing Organization Address City/State/Zipcode Phone Number [facility] [address] [place] [address] [phone] CENTER Urinalysis w/ Microscopic (02/11/2018 11:15 PM CDT) Color, UA Light Yellow [facility] Clarity, UA Clear [facility] Specific [place], UA 1.007 1.001 - 1.035 [facility] pH, UA 6.5 5.0 - 8.0 [facility] Protein, UA Negative Negative [facility] Glucose, UA 500 mg/dL (A) Negative [facility] Ketones, UA Negative Negative [facility] Bilirubin, UA Negative Negative [facility] Blood, UA Negative Negative [facility] Nitrite, UA Negative Negative [facility] Leukocytes, UA Negative Negative [facility] Urobilinogen, UA 0.2 0.2 - 1.0 mg/dL [facility] RBC, UA <1 /HPF [facility] WBC, UA 1 /HPF [facility] Mucus Rare [facility] Specimen Source [facility] Specimen Urine Performing Organization Address City/State/Zipcode Phone Number [facility] [address] [place] [address] [place] Urine culture (02/11/2018 11:15 PM CDT) Result No growth [facility] Specimen Urine - Urine, Straight Catheter Performing Organization Address [facility] Phone Number [facility] [address] [place] [phone] [place] XR chest 1 view portable / bedside [...] MD Report Verified Date/Time:02/11/2018 23:11:04 Reading Location: [address] Reading Room Procedure Note Interface, External [...] Report Verified Date/Time: 02/11/2018 23:11:04 Reading Location: [facility] Reading Room Performing Organization Address City/State/Zipcode Phone Number GE RIS after 06/19/2017 Advance Directives For more information, please contact:[address] [phone] Code Status Date Activated Date Inactivated Comments Full Code 02/11/2018 10:27 PM 02/13/2018 7:55 PM This code status was determined by: Patient
--- OUTSIDE RECORDS SUMMARY | 2018-06-20 11:40 | XMS REPORT ---
:1975 Author Organization [facility] Address On license of [facility] [address] Palma [address] [place] [id number] Care Team Providers Name Role Phone MARIA [...] Value Reference Range Comments CULTURE (BEAKER) (test ciid=6917) No growth in 5 days URINE [id number] 10:25:00 Test Item Value Reference Range Comments CULTURE (BEAKER) (test wmkj=5140) No growth POCT-GLUCOSE [id number] 17:10:00 Test Item Value Reference Range Comments POC-GLUCOSE METER (BEAKER) 232 mg/dL 70-110 TESTED AT [address] (test kpuf=4462) [facility] [address] [address], CTANGIO [id number] 16:41:00CTV pleaseFINAL REPORT CTV brain 02/13/2018 4:35 [...] Pizarro Verified Date/Time: 02/13/2018 16:41:24 Reading Location: [facility] Radiology Reading Room Electronically signed by: BLAISE PIZARRO M.D. on 04:41 PMPOCT-GLUCOSE [id number] 13:07:00 Test Item Value Reference Range Comments POC-GLUCOSE METER (BEAKER) 311 mg/dL 70-110 Notified MELANIE MUÑOZ/TESTED AT [facility] (test pawp=4254) [address] [facility] [address] IRON, TIBC, % SAT. (WITHOUT FERRITIN)2018-02-13 10:10:00 Test Item Value Reference Range Comments IRON (BEAKER) (test ekdy=386) 49 ug/dL 40-160 TOTAL IRON BINDING CAPACITY (BEAKER) (test 231 ug/dL 250-450 aunj=079) IRON % SATURATION (2) (BEAKER) (test hpur=2527) 21 % 20-55 POCT-GLUCOSE [id number] 08:50:00 Test Item Value Reference Range Comments POC-GLUCOSE METER (BEAKER) 348 mg/dL 70-110 Notified MELANIE MUÑOZ/TESTED AT [facility] (test txfv=0232) [address] [facility] [address] BASIC METABOLIC [id number] 08:31:00 Test Item Value Reference Range Comments SODIUM (BEAKER) (test 134 meq/L 136-145 nnbn=766) POTASSIUM (BEAKER) (test 5.4 meq/L 3.5-5.1 Specimen slightly dzdu=161) hemolyzed CHLORIDE (BEAKER) (test 101 meq/L 98-107 zzoh=245) CO2 (BEAKER) (test 26 meq/L 22-29 jvfz=780) BLOOD UREA NITROGEN 9 mg/dL 7-21 (BEAKER) (test bqxs=886) CREATININE (BEAKER) (test 1.01 mg/dL 0.57-1.25 Specimen slightly caup=855) hemolyzed GLUCOSE RANDOM (BEAKER) 347 mg/dL 70-105 (test rqdv=213) CALCIUM (BEAKER) (test 8.9 mg/dL 8.4-10.2 hdga=913) EGFR (BEAKER) (test 80 mL/min/1.73 sq m ESTIMATED GFR IS NOT cgmg=8599) ACCURATE CREATININE CLEARANCE IN PREDICTING GLOMERULAR FILTRATION RATE. ESTIMATED GFR IS NOT APPLICABLE FOR DIALYSIS PATIENTS. LIPID [id number] 08:31:00 Test Item Value Reference Range Comments TRIGLYCERIDES (BEAKER) (test 189 mg/dL Specimen slightly hemolyzed evmd=982) CHOLESTEROL (BEAKER) (test 265 mg/dL Specimen slightly hemolyzed uwnp=872) HDL CHOLESTEROL (BEAKER) (test 46 mg/dL pqfs=514) LDL CHOLESTEROL CALCULATED 181 mg/dL (BEAKER) (test bhui=786) Triglyceride Reference Range: Low Risk <150 Borderline 150- 199 High Risk 200-499 Very High Risk >=500Cholesterol Reference Range: Low Risk <200 Borderline 200-239 High Risk > 240HDL Cholesterol Reference Range: Low Risk >=60 High Risk <40LDL Cholesterol Reference Range: Optimal <100 Near Optimal 100-129 Borderline 130-159 High 160-189 Very High >=190IMMATURE RETICULOCYTE [id number] 08:16:00 Test Item Value Reference Range Comments IMMATURE RETIC FRACTION (BEAKER) (test izpj=6739) 8.600 % 2.300-13.400 RETICULOCYTE COUNT PCT (BEAKER) (test qqtv=830) 1.4 % 0.5-1.8 CBC W/PLT COUNT & AUTO [id number] 08:16:00 Test Item Value Reference Range Comments WHITE BLOOD CELL COUNT (BEAKER) (test nahr=373) 8.5 K/ L 3.5-10.5 RED BLOOD CELL COUNT (BEAKER) (test ckaa=621) 4.49 M/ L 4.63-6.08 HEMOGLOBIN (BEAKER) (test pjok=898) 14.5 GM/DL 13.7-17.5 HEMATOCRIT (BEAKER) (test vzrp=481) 44.1 % 40.1-51.0 MEAN CORPUSCULAR VOLUME (BEAKER) (test kjcs=957) 98.2 fL 79.0-92.2 MEAN CORPUSCULAR HEMOGLOBIN (BEAKER) (test 32.3 pg 25.7-32.2 pjet=666) MEAN CORPUSCULAR HEMOGLOBIN CONC (BEAKER) (test 32.9 GM/DL 32.3-36.5 lufw=770) RED CELL DISTRIBUTION WIDTH (BEAKER) (test 12.8 % 11.6-14.4 yqcq=374) PLATELET COUNT (BEAKER) (test jtog=346) 365 K/CU MM 150-450 MEAN PLATELET VOLUME (BEAKER) (test mhbk=595) 10.3 fL 9.4-12.4 NUCLEATED RED BLOOD CELLS (BEAKER) (test 0 /100 WBC 0-0 ujjs=626) NEUTROPHILS RELATIVE PERCENT (BEAKER) (test 59 % xaud=742) LYMPHOCYTES RELATIVE PERCENT (BEAKER) (test 23 % zowr=598) MONOCYTES RELATIVE PERCENT (BEAKER) (test 8 % gxgd=875) EOSINOPHILS RELATIVE PERCENT (BEAKER) (test 9 % rmpr=832) BASOPHILS RELATIVE PERCENT (BEAKER) (test 1 % wbyh=990) NEUTROPHILS ABSOLUTE COUNT (BEAKER) (test 5.00 K/ L 1.78-5.38 vjot=308) LYMPHOCYTES ABSOLUTE COUNT (BEAKER) (test 1.94 K/ L 1.32-3.57 wbsy=629) MONOCYTES ABSOLUTE COUNT (BEAKER) (test 0.67 K/ L 0.30-0.82 xqwf=017) EOSINOPHILS ABSOLUTE COUNT (BEAKER) (test 0.73 K/ L 0.04-0.54 joar=883) BASOPHILS ABSOLUTE COUNT (BEAKER) (test 0.10 K/ L 0.01-0.08 mjau=342) IMMATURE GRANULOCYTES-RELATIVE PERCENT (BEAKER) 0 % 0-1 (test hrnt=2827) POCT-GLUCOSE [id number] 21:18:00 Test Item Value Reference Range Comments POC-GLUCOSE METER (BEAKER) 226 mg/dL 70-[address] [facility] [address] [facility] (test ywta=7151) [facility] [address] MR, BRAIN, WITHOUT [id number] 19:43:00FINAL REPORT MRI brain without contrast INDICATION: [...] thrombus cannot be excluded. The major proximal paimiut of Mendoza flow voids are maintained. Mild [...] Gregory Verified Date/Time: 02/12/2018 19:43:32 Reading Location: [facility] Radiology Reading Room POCT-GLUCOSE [id number] 19:01:00 Test Item Value Reference Range Comments POC-GLUCOSE METER (BEAKER) 362 mg/dL 70-110 TESTED AT [address] (test dlkk=3679) [facility] [address] EEG AWAKE AND [id number] 17:46:00Reason for exam:->SeizureShould this be performed at the bedside?->YesCH[facility] REPORTDATE OF TEST : [id number] OF REPORT: [id number]: [id number]: [id number] time: 14: 04Stop time: 14:24ICD-10: R56.9CPT Code: 98845SMIYCAI: 40 y old 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, [...] this report.Queenie Paiz MD, PhDClinical Neurophysiology/Epilepsy AttendingCHI Santa Rosa [facility] 05: 46 PMPOCT-GLUCOSE [id number] 15:33:00 Test Item Value Reference Range Comments POC-GLUCOSE METER (BEAKER) 213 mg/dL 70-[address] [facility] [address] [facility] (test lmoj=3494) [facility] [address] TSH/FREE T4 IF [id number] 09:35:00 Test Item Value Reference Range Comments THYROID STIMULATING HORMONE (BEAKER) (test 4.03 uIU/mL 0.35-4.94 itre=631) HEMOGLOBIN [id number] 08:47:00 Test Item Value Reference Range Comments HEMOGLOBIN A1C (BEAKER) (test clig=153) 6.5 % 4.3-6.1 POCT-GLUCOSE [id number] 07:55:00 Test Item Value Reference Range Comments POC-GLUCOSE METER (BEAKER) 219 mg/dL 70-[address] [facility] [address] (test nlgk=3634) [facility] [address] [id number] 05:00:00 Test Item Value Reference Range Comments MAGNESIUM (BEAKER) (test txfh=730) 2.1 mg/dL 1.6-2.6 BASIC METABOLIC [id number] 05:00:00 Test Item Value Reference Range Comments SODIUM (BEAKER) (test 139 meq/L 136-145 outq=347) POTASSIUM (BEAKER) (test 4.1 meq/L 3.5-5.1 eycz=766) CHLORIDE (BEAKER) (test 109 meq/L 98-107 hyuy=467) CO2 (BEAKER) (test 25 meq/L 22-29 dsld=124) BLOOD UREA NITROGEN 7 mg/dL 7-21 (BEAKER) (test bhta=043) CREATININE (BEAKER) (test 0.81 mg/dL 0.57-1.25 nabf=406) GLUCOSE RANDOM (BEAKER) 167 mg/dL 70-105 (test fugh=356) CALCIUM (BEAKER) (test 9.0 mg/dL 8.4-10.2 ozlj=489) EGFR (BEAKER) (test 104 mL/min/1.73 sq m ESTIMATED GFR IS NOT xmvi=1785) ACCURATE CREATININE CLEARANCE IN PREDICTING GLOMERULAR FILTRATION RATE. ESTIMATED GFR IS NOT APPLICABLE FOR DIALYSIS PATIENTS. CBC W/PLT COUNT & AUTO [id number] 04:40:00 Test Item Value Reference Range Comments WHITE BLOOD CELL COUNT (BEAKER) (test xmat=435) 11.3 K/ L 3.5-10.5 RED BLOOD CELL COUNT (BEAKER) (test ivfw=346) 4.09 M/ L 4.63-6.08 HEMOGLOBIN (BEAKER) (test jqei=632) 13.1 GM/DL 13.7-17.5 HEMATOCRIT (BEAKER) (test diou=639) 39.8 % 40.1-51.0 MEAN CORPUSCULAR VOLUME (BEAKER) (test mwqz=464) 97.3 fL 79.0-92.2 MEAN CORPUSCULAR HEMOGLOBIN (BEAKER) (test 32.0 pg 25.7-32.2 kugt=521) MEAN CORPUSCULAR HEMOGLOBIN CONC (BEAKER) (test 32.9 GM/DL 32.3-36.5 dbwy=288) RED CELL DISTRIBUTION WIDTH (BEAKER) (test 12.8 % 11.6-14.4 ngkl=583) PLATELET COUNT (BEAKER) (test rgcn=410) 344 K/CU MM 150-450 MEAN PLATELET VOLUME (BEAKER) (test gmox=134) 9.5 fL 9.4-12.4 NUCLEATED RED BLOOD CELLS (BEAKER) (test 0 /100 WBC 0-0 krej=484) NEUTROPHILS RELATIVE PERCENT (BEAKER) (test 61 % phkt=791) LYMPHOCYTES RELATIVE PERCENT (BEAKER) (test 24 % ecxs=001) MONOCYTES RELATIVE PERCENT (BEAKER) (test 8 % uvin=154) EOSINOPHILS RELATIVE PERCENT (BEAKER) (test 7 % ylge=682) BASOPHILS RELATIVE PERCENT (BEAKER) (test 1 % czkl=628) NEUTROPHILS ABSOLUTE COUNT (BEAKER) (test 6.86 K/ L 1.78-5.38 coxt=990) LYMPHOCYTES ABSOLUTE COUNT (BEAKER) (test 2.67 K/ L 1.32-3.57 ygid=682) MONOCYTES ABSOLUTE COUNT (BEAKER) (test 0.85 K/ L 0.30-0.82 ultf=802) EOSINOPHILS ABSOLUTE COUNT (BEAKER) (test 0.79 K/ L 0.04-0.54 bpoa=982) BASOPHILS ABSOLUTE COUNT (BEAKER) (test 0.07 K/ L 0.01-0.08 argj=353) IMMATURE GRANULOCYTES-RELATIVE PERCENT (BEAKER) 0 % 0-1 (test quwe=4535) POCT-GLUCOSE [id number] 04:31:00 Test Item Value Reference Range Comments POC-GLUCOSE METER (BEAKER) 183 mg/dL 70-[address] [facility] [address] [facility] (test qtmr=3799) [facility] [address] RAD, ABDOMEN/KUB, 1 VIEW [id number] 01:33:00Reason for exam:->Abdominal distension, obtundationFINAL REPORT CLINICAL [...] Verified Date/ Time: 02/12/2018 01:33:19 Reading Location: [address] Transitional Reading Room POCT-GLUCOSE [id number] 00:49:00 Test Item Value Reference Range Comments POC-GLUCOSE METER (BEAKER) 346 mg/dL 70-[address] [facility] [address] [facility] (test bllu=6147) [facility] [address] CBC W/PLT COUNT & AUTO [id number] 00:44:00 Test Item Value Reference Range Comments WHITE BLOOD CELL COUNT (BEAKER) (test ezrs=625) 14.3 K/ L 3.5-10.5 RED BLOOD CELL COUNT (BEAKER) (test sihb=293) 4.26 M/ L 4.63-6.08 HEMOGLOBIN (BEAKER) (test luol=098) 13.8 GM/DL 13.7-17.5 HEMATOCRIT (BEAKER) (test zbcw=514) 42.1 % 40.1-51.0 MEAN CORPUSCULAR VOLUME (BEAKER) (test vygi=786) 98.8 fL 79.0-92.2 MEAN CORPUSCULAR HEMOGLOBIN (BEAKER) (test 32.4 pg 25.7-32.2 pqjf=546) MEAN CORPUSCULAR HEMOGLOBIN CONC (BEAKER) (test 32.8 GM/DL 32.3-36.5 sfkg=863) RED CELL DISTRIBUTION WIDTH (BEAKER) (test 12.9 % 11.6-14.4 luei=742) PLATELET COUNT (BEAKER) (test dxxm=875) 366 K/CU MM 150-450 MEAN PLATELET VOLUME (BEAKER) (test dwyz=618) 9.8 fL 9.4-12.4 NUCLEATED RED BLOOD CELLS (BEAKER) (test 0 /100 WBC 0-0 cory=798) NEUTROPHILS RELATIVE PERCENT (BEAKER) (test 74 % tmtf=659) LYMPHOCYTES RELATIVE PERCENT (BEAKER) (test 13 % dfhy=602) MONOCYTES RELATIVE PERCENT (BEAKER) (test 7 % eqdx=610) EOSINOPHILS RELATIVE PERCENT (BEAKER) (test 5 % bhoa=181) BASOPHILS RELATIVE PERCENT (BEAKER) (test 1 % jvel=798) NEUTROPHILS ABSOLUTE COUNT (BEAKER) (test 10.60 K/ L 1.78-5.38 zpug=751) LYMPHOCYTES ABSOLUTE COUNT (BEAKER) (test 1.80 K/ L 1.32-3.57 dslr=044) MONOCYTES ABSOLUTE COUNT (BEAKER) (test 1.06 K/ L 0.30-0.82 salf=584) EOSINOPHILS ABSOLUTE COUNT (BEAKER) (test 0.69 K/ L 0.04-0.54 fbcw=115) BASOPHILS ABSOLUTE COUNT (BEAKER) (test 0.09 K/ L 0.01-0.08 kvjd=031) IMMATURE GRANULOCYTES-RELATIVE PERCENT (BEAKER) 0 % 0-1 (test rdwq=2803) RAPID DRUG SCREEN, [id number] 00:35:00 Test Item Value Reference Range Comments BARBITURATE URINE (BEAKER) (test eqoa=339) Negative Negative BENZODIAZEPINE SCREEN URINE (BEAKER) (test Negative Negative uzxs=663) COCAINE (METAB.) SCREEN (BEAKER) (test tdhg=5915) Negative Negative METHADONE SCREEN (BEAKER) (test stln=1178) Negative Negative OPIATE SCREEN URINE (BEAKER) (test dvlu=974) Negative Negative CANNABINOID SCREEN URINE (BEAKER) (test tblg=605) Negative Negative AMPH/METHAMPH SCREEN (BEAKER) (test okbk=7027) Negative Negative PHENCYCLIDINE SCREEN URINE (BEAKER) (test zrcq=312) Negative Negative OXYCODONE SCREEN URINE (BEAKER) (test obzl=7855) Negative Negative DRUG CUTOFF CONC.Cocaine 300 ng/mL Cannabinoid 50 ng/mL Benzodiazepine 200 ng/mLBarbiturate 200 ng/ mLPhencyclidine 25 ng/mLOpiate 300 ng/mLMethadone 300 ng/mLAmphetamine/ 1000 ng/mL MethamphetamineOxycodone 300 ng/mLThis assay provides an unconfirmed qualitative test result for the clinical management of patients in emergency situations. Chain of custody not maintained. Some fxiy-isv-zhpriik medications, as well as adulterants, may cause inaccurate results. Clinical correlation should be applied. A more comprehensive drug screen or confirmation of a detected drug may be performed upon request.TROPONIN [id number] 00:15:00 Test Item Value Reference Range Comments TROPONIN I (BEAKER) (test musg=139) < ng/mL 0.00-0.03 Troponin I (TnI) levels [...] acute neurological disease, and persistent tachyarrhythmia.COMPREHENSIVE METABOLIC [id number] 00:09:00 Test Item Value Reference Range Comments TOTAL PROTEIN (BEAKER) 6.9 gm/dL 6.0-8.3 (test ckli=167) ALBUMIN (BEAKER) (test 3.8 g/dL 3.5-5.0 xxqx=0501) ALKALINE PHOSPHATASE 95 U/L 40-150 (BEAKER) (test vmny=501) BILIRUBIN TOTAL (BEAKER) 0.6 mg/dL 0.2-1.2 (test abqu=789) SODIUM (BEAKER) (test 135 meq/L 136-145 puev=371) POTASSIUM (BEAKER) (test 5.0 meq/L 3.5-5.1 htzm=445) CHLORIDE (BEAKER) (test 104 meq/L 98-107 lvnl=798) CO2 (BEAKER) (test 25 meq/L 22-29 zfyv=716) BLOOD UREA NITROGEN 8 mg/dL 7-21 (BEAKER) (test lxvm=641) CREATININE (BEAKER) (test 1.03 mg/dL 0.57-1.25 nhfx=247) GLUCOSE RANDOM (BEAKER) 292 mg/dL 70-105 (test gqpf=105) CALCIUM (BEAKER) (test 9.2 mg/dL 8.4-10.2 gwlf=439) AST (SGOT) (BEAKER) (test 23 U/L 5-34 qyem=122) ALT (SGPT) (BEAKER) (test 17 U/L 6-55 sapi=897) EGFR (BEAKER) (test 78 mL/min/1.73 sq m ESTIMATED GFR IS NOT gbpg=3504) ACCURATE CREATININE CLEARANCE IN PREDICTING GLOMERULAR FILTRATION RATE. ESTIMATED GFR IS NOT APPLICABLE FOR DIALYSIS PATIENTS. URINALYSIS W/ [id number] 00:06:00 Test Item Value Reference Range Comments COLOR (BEAKER) (test mmvq=954) Light Yellow CLARITY (BEAKER) (test qixu=646) Clear SPECIFIC GRAVITY UA (BEAKER) (test eevj=768) 1.007 1.001-1.035 PH UA (BEAKER) (test fxmg=023) 6.5 5.0-8.0 PROTEIN UA (BEAKER) (test rdsv=050) Negative Negative GLUCOSE UA (BEAKER) (test ciwg=212) 500 mg/dL Negative KETONES UA (BEAKER) (test mrhg=262) Negative Negative BILIRUBIN UA (BEAKER) (test tgco=244) Negative Negative BLOOD UA (BEAKER) (test xfew=788) Negative Negative NITRITE UA (BEAKER) (test xvto=409) Negative Negative LEUKOCYTE ESTERASE UA (BEAKER) (test lfuz=259) Negative Negative UROBILINOGEN UA (BEAKER) (test lhuj=398) 0.2 mg/dL 0.2-1.0 RBC UA (BEAKER) (test rebx=944) < /HPF WBC UA (BEAKER) (test vheg=390) 1 /HPF MUCUS (BEAKER) (test ofzc=0330) Rare SOURCE(BEAKER) (test ndsi=7888) RAD, CHEST, 1 VIEW, NON [id number] 23:11:00Reason for exam:->Obtundation with coarse respirations, baselineShould this be performed at the bedside?-> YesFINAL REPORT RAD, CHEST, 1 VIEW, NON DEPT INDICATION: Obtundation with coarserespirations, baseline COMPARISON: None. FINDINGS: Portable frontal view of the chest. IMPRESSION: Support Lines: None. Lungs and pleura: Clear lungs. No pneumothorax.Heart and mediastinum: Unremarkable. Additional findings: Fluid and gaseous distention of the gastric lumen. Signed: JR Lozano [facility] Verified Date/Time: 02/11/2018 23:11:04 Reading Location: [address]
--- NOTE | 2018-06-20 12:40 | RAD REPORT ---
EXAM DESCRIPTION: RAD - Elbow Left 3 View - 06/20/2018 12:32 pm CLINICAL HISTORY: elbow swelling Fall, elbow pain swelling. COMPARISON: <Comparisons> FINDINGS: Soft tissue swelling is seen about the elbow. No acute fracture or dislocation seen.
--- NOTE | 2018-06-20 13:01 | ER ---
Nurse's Notes [facility] Name: Surjit Stubbs Age: 43 yrs Sex: Male : 1975 Arrival Date: 06/20/2018 Time: 11:39 Bed 11 Private MD: LB LEBLANC Diagnosis: Olecranon bursitis, left elbow Presentation: 06/20 11:43 Presenting complaint: Left arm pain, swelling, and bruising after fall from standing hb approx 1 week ago. Transition of care: patient was not received from another setting of care. Onset of symptoms is unknown. Risk Assessment: Do you want to hurt yourself or someone else? Patient reports no desire to harm self or others. Care prior to arrival: None. 11:43 Method Of Arrival: Ambulatory hb 11:43 Acuity: TOI 4 hb 13:42 Initial Sepsis Screen: Does the patient meet any 2 criteria? No. Patient's initial ss sepsis screen is negative. Does the patient have a suspected source of infection? No. Patient's initial sepsis screen is negative. Historical: - Allergies: 11:44 tramadol; hb - Immunization history:: Adult Immunizations up to date. - Social history:: Smoking status: Patient uses tobacco products, smokes two packs cigarettes per day. - Ebola Screening: : No symptoms or risks identified at this time. Screenin:49 Abuse screen: Denies threats or abuse. Denies injuries from another. Nutritional ss screening: No deficits noted. Tuberculosis screening: No symptoms or risk factors identified. Never had TB. Fall Risk None identified. Assessment: 11:49 General: Appears in no apparent distress. comfortable, Behavior is calm, cooperative, ss Denies fever, feeling ill, fatigue, chills. Pain: Complains of pain in left arm Pain currently is 5 out of 10 on a pain scale. Quality of pain is described as tender, Pain began x 1 week Is continuous. Neuro: Level of Consciousness is awake, alert, obeys commands. Cardiovascular: Pulses are palpable in right radial artery and left radial artery. Respiratory: Airway is patent Respiratory effort is even, unlabored, Respiratory pattern is regular, symmetrical. EENT: Oral mucosa is moist. Derm: Skin is intact, is healthy with good turgor, Skin is dry, Skin is pink, warm \T\ dry. normal. Derm: Bruising that is dark purple, yellow, on dorsal aspect of left forearm. Musculoskeletal: Swelling present in left arm. Vital Signs: 11:44 BP 121 / 92; Pulse 108; Resp 16; Temp 97.9; Pulse Ox 100% on R/A; Pain 5/10; hb ED Course: 11:39 Patient arrived in ED. sb2 11:40 LB LEBLANC is Private Physician. sb2 11:44 Triage completed. hb 11:44 Arm band placed on. hb 11:48 Lv Cuevas PA is PHCP. m 11:48 Frankie Wick MD is Attending Physician. m 11:49 Olya Hernandez, MELANIE is Primary Nurse. ss 11:49 Patient has correct armband on for positive identification. Bed in low position. Call ss light in reach. 11:49 Patient maintains SpO2 saturation greater than 95% on room air. ss 12:24 X-ray completed. Portable x-ray completed in exam room. Patient tolerated procedure jb2 well. 12:33 Elbow Left 3 View XRAY In Process Unspecified. EDMS 13:00 LB LEBLANC is Referral Physician. [facility] 13:35 Sling applied to left arm. ss 13:42 No provider procedures requiring assistance completed. Patient did not have IV access ss during this emergency room visit. Administered Medications: 13:33 Drug: Ketorolac 60 mg Route: IM; Site: right gluteus; ss 13:47 Follow up: Response: No adverse reaction ss Outcome: 13:00 Discharge ordered by MD. [facility] 13:42 Discharged to home ambulatory. ss 13:42 Condition: good 13:42 Discharge instructions given to patient, Instructed on discharge instructions, follow up and referral plans. medication usage, Demonstrated understanding of instructions, follow-up care, medications, Prescriptions given X 1. 13:47 Patient left the ED. ss Signatures: Dispatcher [employer] EDMS Lv Cuevas PA PA Jack Limon jb2 Olya Hernandez, MELANIE RN Malissa Bates RN RN Rosanna Tavera sb2
--- NOTE | 2018-06-20 13:01 | EDPHYS ---
Physician Documentation [facility] Name: Surjit Stubbs Age: 43 yrs Sex: Male : 1975 Arrival Date: 06/20/2018 Time: 11:39 Bed 11 Private MD: [facility] ED Physician Frankie Wick HPI: 06/20 11:53 This 43 yrs old Male presents to ER via Ambulatory with complaints of Arm jmm Pain. 11:53 The patient or guardian complains of injury, pain. Onset: The symptoms/episode jmm began/occurred acutely, 1 week(s) ago. Associated signs and symptoms: Pertinent positives: pain, swelling. This is a 43 year old male that presents to the ED with complaints of left elbow pain and swelling beginning 1 week ago after a fall. Patient states he tripped while walking home. Denies pain to the forearm or wrist. Denies head injury. . Historical: - Allergies: 11:44 tramadol; hb - Immunization history:: Adult Immunizations up to date. - Social history:: Smoking status: Patient uses tobacco products, smokes two packs cigarettes per day. - Ebola Screening: : No symptoms or risks identified at this time. ROS: 11:53 Constitutional: Negative for fever, chills, and weight loss, Cardiovascular: Negative jmm for chest pain, palpitations, and edema, Respiratory: Negative for shortness of breath, cough, wheezing, and pleuritic chest pain. 11:53 MS/extremity: Positive for pain, swelling. 11:53 All other systems are negative. Exam: 11:53 Constitutional: This is a well developed, well nourished patient who is awake, alert, jmm and in no acute distress. Head/Face: atraumatic. Eyes: EOMI, no conjunctival erythema appreciated ENT: Moist Mucus Membranes Neck: Trachea midline, Supple Chest/axilla: Normal chest wall appearance and motion. Cardiovascular: Regular rate and rhythm. No edema appreciated Respiratory: Normal respirations, no respiratory distress appreciated Abdomen/GI: Non distended, soft Back: Normal ROM 11:53 Musculoskeletal/extremity: FROM appreciated to the left elbow, swelling is appreciated, compartments are soft. NVI. Full radial pulse, No bony tenderness is appreciated to the left distal radius or ulna. . 11:53 Skin: ecchymosis noted to the left distal forearm. 11:53 Neuro: Orientation: is normal, Mentation: is normal, Memory: is normal. 11:53 Psych: Behavior/mood is pleasant, cooperative. Vital Signs: 11:44 BP 121 / 92; Pulse 108; Resp 16; Temp 97.9; Pulse Ox 100% on R/A; Pain 5/10; hb MDM: 11:53 Patient medically screened. [facility] 12:50 Data reviewed: vital signs, nurses notes. Counseling: I had a detailed discussion with fabiano the patient and/or guardian regarding: the historical points, exam findings, and any diagnostic results supporting the discharge/admit diagnosis, radiology results, the need for outpatient follow up, to return to the emergency department if symptoms worsen or persist or if there are any questions or concerns that arise at home. ED course: Patient is afebrile, non toxic in appearance in the ED. Xray negative for fracture. I do not suspect septic joint. Patient given return precautions. Patient understood and agrees with the plan of care. . 06/20 11:57 Order name: Elbow Left 3 View XRAY; Complete Time: 12:44 [facility] 06/20 12:49 Order name: Sling; Complete Time: 13:34 [facility] Administered Medications: 13:33 Drug: Ketorolac 60 mg Route: IM; Site: right gluteus; ss 13:47 Follow up: Response: No adverse reaction ss Disposition: 18:54 Co-signature as Attending Physician, Frankie Wick MD. rn Disposition: 06/20/18 13:00 Discharged to Home. Impression: Olecranon bursitis, left elbow. - Condition is Stable. - Discharge Instructions: Elbow Bursitis, Heat Therapy. - Prescriptions for Ibuprofen 800 mg Oral Tablet - take 1 tablet by ORAL route every 8 hours As needed take with food; 30 tablet. - Medication Reconciliation Form, Thank You Letter, Antibiotic Education, Prescription Opioid Use form. - Follow up: [facility]; When: 1 - 2 days; Reason: Recheck today's complaints, Continuance of care, Re-evaluation by your physician. Signatures: Dispatcher [employer] EDMS Lv Cuevas PA PA jmm Nieto, Roman, MD MD rn Smirch, Shelby, RN RN ss Baxter, Heather, RN RN Corrections: (The following items were deleted from the chart) 13:47 13:00 06/20/2018 13:00 Discharged to Home. Impression: Olecranon bursitis, left elbow. ss Condition is Stable. Forms are Medication Reconciliation Form, Thank You Letter, Antibiotic Education, Prescription Opioid Use. Follow up: [facility]; When: 1 - 2 days; Reason: Recheck today's complaints, Continuance of care, Re-evaluation by your physician. fabiano
[2018-06-20] MEDS ORDERED: KETOROLAC 30 MG/ML INJ ONE (13:39)
[2018-06-20 13:52] VITALS: BP 121/92; TEMP 97.9; O2SAT 100
== END 2018-06-20 13:47 | disposition home or self-care (01) ==
LOC: ER 11:37
DX: M70.22 Olecranon bursitis, left elbow (principal); F17.210 Nicotine dependence, cigarettes, uncomplicated
CPT/HCPCS: 96372; 99284

== ENCOUNTER 2019-02-15 17:02 | Emergency (ER) | payer SELFPAY ==
--- NOTE | 2019-02-15 17:43 | EDPHYS ---
Physician Documentation [facility] Name: Surjit Stubbs Age: 44 yrs Sex: Male : 1975 Arrival Date: 02/15/2019 Time: 17:08 Bed 3 Private MD: ED Physician Ashutosh Aj HPI: 02/15 17:16 This 44 yrs old Male presents to ER via EMS with complaints of hypoglycemia. pm1 17:16 The patient or guardian reports hypoglycemia, that was potentially precipitated by pm1 unknown, with the patient's symptoms witnessed by a significant other, Treatment prior to arrival includes: EMS administered D50, checked blood sugar on arrival, which was 25, after treatment, the blood sugar was 160. Onset: The symptoms/episode began/occurred just prior to arrival. Associated signs and symptoms: Pertinent positives: seizure activity. Current symptoms: In the emergency department the patient's symptoms have resolved, the patient is alert and fully oriented, has normal speech, has normal responsiveness, has no confusion. The patient has experienced similar episodes in the past, multiple times. Girlfriend was cooking food and called out to the patient. Patient didn't respond so she checked on him and he appeared spaced out on his reclining chair. She checked his sugar and it was 35. She wasn't able to give him sugar by mouth because he was combative. Patient then had seizure activity. No fall injury and patient is not complaining of any pain. On EMS arrival sugar was 25 and he was given 1 amp D50. Patient's blood sugar 160s on ER arrival. Historical: - Allergies: 17:16 tramadol; mg2 - Home Meds: 17:16 acetaminophen-codeine 300-60 mg Oral tab [Active]; [place] Thyroid 60 mg Oral tab mg2 [Active]; gabapentin 100 mg Oral cap [Active]; gemfibrozil 600 mg Oral tab 1 tab 2 times per day [Active]; Glucagon Emergency Kit (human) 1 mg IM kit 1 mL [Active]; levetiracetam 500 mg Oral tab 1 tab 2 times per day [Active]; Novolog Sub-Q [Active]; - PMHx: 17:16 Diabetes - IDDM; High Cholesterol; Hypothyroidism; neuropathy; Seizures; mg2 - Immunization history:: Flu vaccine status is unknown. - Social history:: Smoking status: Patient uses tobacco products, smokes one pack cigarettes per day. - Ebola Screening: : No symptoms or risks identified at this time. ROS: 17:16 Constitutional: Negative for fever, chills, and weight loss, Eyes: Negative for injury, pm1 pain, redness, and discharge, ENT: Negative for injury, pain, and discharge, Neck: Negative for injury, pain, and swelling, Cardiovascular: Negative for chest pain, palpitations, and edema, Respiratory: Negative for shortness of breath, cough, wheezing, and pleuritic chest pain, Abdomen/GI: Negative for abdominal pain, nausea, vomiting, diarrhea, and constipation, Back: Negative for injury and pain, : Negative for injury, bleeding, discharge, and swelling, MS/Extremity: Negative for injury and deformity, Skin: Negative for injury, rash, and discoloration. 17:16 Neuro: Positive for seizure activity, Negative for headache, numbness, tingling, weakness. Exam: 17:16 Constitutional: This is a well developed, well nourished patient who is awake, alert, pm1 and in no acute distress. Head/Face: Normocephalic, atraumatic. Eyes: Pupils equal round and reactive to light, extra-ocular motions intact. Lids and lashes normal. Conjunctiva and sclera are non-icteric and not injected. Cornea within normal limits. Periorbital areas with no swelling, redness, or edema. Neck: Trachea midline, no thyromegaly or masses palpated, and no cervical lymphadenopathy. Supple, full range of motion without nuchal rigidity, or vertebral point tenderness. No Meningismus. Chest/axilla: Normal chest wall appearance and motion. Nontender with no deformity. No lesions are appreciated. Cardiovascular: Regular rate and rhythm with a normal S1 and S2. No gallops, murmurs, or rubs. Normal PMI, no JVD. No pulse deficits. Respiratory: Lungs have equal breath sounds bilaterally, clear to auscultation and percussion. No rales, rhonchi or wheezes noted. No increased work of breathing, no retractions or nasal flaring. Abdomen/GI: Soft, non-tender, with normal bowel sounds. No distension or tympany. No guarding or rebound. No evidence of tenderness throughout. Back: No spinal tenderness. No costovertebral tenderness. Full range of motion. Skin: Warm, dry with normal turgor. Normal color with no rashes, no lesions, and no evidence of cellulitis. MS/ Extremity: Pulses equal, no cyanosis. Neurovascular intact. Full, normal range of motion. 17:16 Neuro: Orientation: is normal, Mentation: is normal, Motor: is normal, moves all fours, Gait: is steady, at a normal pace, without difficulty. Vital Signs: 17:14 BP 163 / 92; Pulse 97; Resp 18; Temp 97.4; Pulse Ox 100% on R/A; Height 5 ft. 9 in. mg2 (175.26 cm); 17:40 BP 151 / 102; Pulse 92; Resp 16; Pulse Ox 98% ; bp MDM: 17:17 Patient medically screened. pm1 17:39 Refusal of service: The patient/guardian displays adequate decision making capability pm1 and despite a detailed discussion of alternatives, benefits, risks, and consequences refuses: Admission to the hospital for further work-up and treatment, Patient is feeling better and does not want to stay in the ER to wait for lab results and further treatment. Patient is here with his girlfriend and is in agreement of his decision. she has food cooked at home and will feed him there. Asked them to at least wait for him to eat food here in the ER but the patient wants to go home now. 02/15 17:14 Order name: Acetaminophen mg2 02/15 17:14 Order name: Basic Metabolic Panel mg2 02/15 17:14 Order name: CBC with Diff mg2 02/15 17:14 Order name: ETOH Level mg2 02/15 17:14 Order name: Hepatic Function mg2 02/15 17:14 Order name: PT-INR mg2 02/15 17:14 Order name: Ptt, Activated mg2 02/15 17:14 Order name: Salicylate mg2 02/15 17:14 Order name: EKG; Complete Time: 17:16 mg2 02/15 17:14 Order name: EKG - Nurse/Tech; Complete Time: 17:15 mg2 02/15 17:14 Order name: IV Saline Lock; Complete Time: 17:15 mg2 02/15 17:14 Order name: Labs collected and sent; Complete Time: 17:34 mg2 Administered Medications: No medications were administered Point of Care Testing: Blood Glucose: 17:14 Blood Glucose: 161 mg/dL; mg2 Ranges: Critical Glucose Levels:Adult <50 mg/dl or >400 mg/dl <40 mg/dl or >180 mg/dl Disposition: 02/15/19 17:42 Discharged to Home. Impression: Hypoglycemia, unspecified, Epilepsy and recurrent seizures. - Condition is Stable. - Discharge Instructions: Hypoglycemia, Blood Glucose Monitoring, Adult, Seizure, Adult, [id number]. - Medication Reconciliation Form, Thank You Letter, Antibiotic Education, Prescription Opioid Use form. - Follow up: Emergency Department; When: As needed; Reason: Worsening of condition. Follow up: Private Physician; When: 2 - 3 days; Reason: Recheck today's complaints, Continuance of care, Re-evaluation by your physician. - Problem is new. - Symptoms have improved. Addendum: 02/17/2019 22:44 Co-signature as Attending Physician, Ashutosh Aj MD. g s Signatures: Dispatcher [employer] EDMS Akash Fuentes, FLAME CUTTING MACHINE OPERATOR FLAME CUTTING MACHINE OPERATOR pm1 Ashutosh Aj MD MD Dion Parrish, MELANIE RN bp Jordan Rust RN RN mg2 Corrections: (The following items were deleted from the chart) 02/15 17:50 17:42 02/15/2019 17:42 Discharged to Home. Impression: Hypoglycemia, unspecified; bp Epilepsy and recurrent seizures. Condition is Stable. Forms are Medication Reconciliation Form, Thank You Letter, Antibiotic Education, Prescription Opioid Use. Follow up: Emergency Department; When: As needed; Reason: Worsening of condition. Follow up: Private Physician; When: 2 - 3 days; Reason: Recheck today's complaints, Continuance of care, Re-evaluation by your physician. Problem is new. Symptoms have improved. pm1
--- NOTE | 2019-02-15 17:43 | ER ---
Nurse's Notes [facility] Name: Surjit Stubbs Age: 44 yrs Sex: Male : 1975 Arrival Date: 02/15/2019 Time: 17:08 Bed 3 Private MD: Diagnosis: Hypoglycemia, unspecified;Epilepsy and recurrent seizures Presentation: 02/15 17:08 Presenting complaint: EMS states: patient was called for low blood sugar or may had a mg2 seizure, BGL- 24 mg/dl, Dextrose 25 gm 50 ml given and sugar went up to 206, 5 mins after blood sugar went down to 145 mg/dl. he is on insulin. he has hypoglycemia issues as well before. patient is conscious but not really answering questions, seems confused. Transition of care: patient was not received from another setting of care. Onset of symptoms was February 15, 2019. Risk Assessment: Do you want to hurt yourself or someone else? Patient reports no desire to harm self or others. Initial Sepsis Screen: Does the patient meet any 2 criteria? No. Patient's initial sepsis screen is negative. Does the patient have a suspected source of infection? No. Patient's initial sepsis screen is negative. Care prior to arrival: None. 17:08 Method Of Arrival: EMS: [facility] mg2 17:08 Acuity: TOI 2 mg2 Triage Assessment: 17:10 General: Appears in no apparent distress. comfortable, unkempt, Behavior is drowsy. bp Pain: Unable to use pain scale. Does not appear to understand pain scale. EENT: No deficits noted. Neuro: Level of Consciousness is lethargic, Oriented to person, place. Cardiovascular: No deficits noted. Respiratory: No deficits noted. GI: No signs and/or symptoms were reported involving the gastrointestinal system. : No signs and/or symptoms were reported regarding the genitourinary system. Derm: No deficits noted. Musculoskeletal: No deficits noted. Historical: - Allergies: 17:16 tramadol; mg2 - Home Meds: 17:16 acetaminophen-codeine 300-60 mg Oral tab [Active]; [place] Thyroid 60 mg Oral tab mg2 [Active]; gabapentin 100 mg Oral cap [Active]; gemfibrozil 600 mg Oral tab 1 tab 2 times per day [Active]; Glucagon Emergency Kit (human) 1 mg IM kit 1 mL [Active]; levetiracetam 500 mg Oral tab 1 tab 2 times per day [Active]; Novolog Sub-Q [Active]; - PMHx: 17:16 Diabetes - IDDM; High Cholesterol; Hypothyroidism; neuropathy; Seizures; mg2 - Immunization history:: Flu vaccine status is unknown. - Social history:: Smoking status: Patient uses tobacco products, smokes one pack cigarettes per day. - Ebola Screening: : No symptoms or risks identified at this time. Screenin:39 Abuse screen: Denies threats or abuse. Denies injuries from another. Nutritional bp screening: No deficits noted. Tuberculosis screening: No symptoms or risk factors identified. Fall Risk None identified. Assessment: 17:10 General: SEE TRIAGE NOTE. bp 17:39 Reassessment: PER S/O PT AT BASELINE AND INSISTING ON LEAVING. SEEN BY PROVIDER. bp 17:49 Reassessment: PT D/C HOME AMBULATORY WITH FAMILY, DX WITH HYPOGLYCEMIA. bp Vital Signs: 17:14 BP 163 / 92; Pulse 97; Resp 18; Temp 97.4; Pulse Ox 100% on R/A; Height 5 ft. 9 in. mg2 (175.26 cm); 17:40 BP 151 / 102; Pulse 92; Resp 16; Pulse Ox 98% ; bp ED Course: 17:08 Patient arrived in ED. mg2 17:10 Maintain EMS IV. Dressing intact. Good blood return noted. Site clean \T\ dry. Gauge \T\ bp site: 18 G R AC. 17:11 Akash Fuentes NP is PHCP. pm1 17:11 Ashutosh Aj MD is Attending Physician. pm1 17:14 Triage completed. mg2 17:20 EKG done, by geotechnical engineer. reviewed by Akash Fuentes NP. sm3 17:38 Arm band placed on. bp 17:40 No provider procedures requiring assistance completed. IV discontinued, intact, bp bleeding controlled, No redness/swelling at site. Pressure dressing applied. 17:40 Patient has correct armband on for positive identification. Bed in low position. Call bp light in reach. Side rails up X2. 17:49 Dion Parrish, MELANIE is Primary Nurse. bp Administered Medications: No medications were administered Point of Care Testing: Blood Glucose: 17:14 Blood Glucose: 161 mg/dL; mg2 Ranges: Outcome: 17:42 Discharge ordered by . pm1 17:50 Discharged to home ambulatory, with family. bp 17:50 Condition: stable 17:50 Discharge instructions given to patient, Instructed on discharge instructions, follow up and referral plans. Demonstrated understanding of instructions, follow-up care. 17:50 Patient left the ED. bp Signatures: Akash Fuentes, COMPOSITION WEATHERBOARD APPLIER COMPOSITION WEATHERBOARD APPLIER pm1 Dion Parrish RN RN bp Jordan Rust RN RN [facility] Annabelle Arcos 3
[2019-02-15 17:48] LABS: Absolute Lymphocytes (CBC) 1.7 K/uL (0.7-4.9); Basophils % 0.6 % (0-1.3); Hematocrit 50.6 % (39.6-49.0); Lymphocytes % 13.2 % (15.3-44.8); MPV 8.3 fL (7.6-11.3); RBC Red Blood Cell Count 5.34 M/uL (4.33-5.43)
[2019-02-15 17:53] LABS: Protime INR 0.85
[2019-02-15 17:55] LABS: Albumin 3.6 g/dL (3.4-5.0); Bilirubin Direct 0.2 mg/dL (0-0.2); Bilirubin Total 0.5 mg/dL (0.2-1.0); Potassium 3.5 mmol/L (3.5-5.1); Protein, Total 7.6 g/dL (6.4-8.2)
[2019-02-15 17:57] VITALS: TEMP 97.4
[2019-02-15 17:58] VITALS: BP 151/102; O2SAT 98
--- NOTE | 2019-02-17 13:07 | EKG ---
Test Date: 2019-02-15 Test Time: 17:10:11 Curing Machine Operator: CALVIN MEASUREMENT RESULTS: Intervals: Rate: 92 NH: 146 QRSD: 74 QT: 376 QTc: 464 [place]: P: 56 NH: 146 QRS: 47 T: 61 INTERPRETIVE STATEMENTS: Normal sinus rhythm Normal ECG Compared to ECG 04/22/2018 20:18:15 Sinus tachycardia no longer present Electronically Signed On 02-17-19 13:04:01 CDT by Familia Pickett
== END 2019-02-15 17:50 | disposition home or self-care (01) ==
LOC: ER 17:02
DX: E11.649 Type 2 diabetes mellitus with hypoglycemia without coma (principal); G40.802 Other epilepsy, not intractable, without status epilepticus; F17.210 Nicotine dependence, cigarettes, uncomplicated; E78.00 Pure hypercholesterolemia, unspecified; E03.9 Hypothyroidism, unspecified; Z79.4 Long term (current) use of insulin; Z88.5 Allergy status to narcotic agent
CPT/HCPCS: 36415; 80048; 80076; 80320; 80329; 82962; 85025; 85610; 85730; 93005; 99283

== ENCOUNTER 2019-05-02 06:29 | Emergency (ER) | payer SELFPAY ==
--- OUTSIDE RECORDS SUMMARY | 2019-05-02 06:31 | XMS REPORT ---
:1975 Author Organization [facility] Address [facility] [address] Palma [address] [place] [id number] Care Team Providers Name Role Phone MARIA [...] Value Reference Range Comments CULTURE (BEAKER) (test yawd=4147) No growth in 5 days URINE [id number] 10:25:00 Test Item Value Reference Range Comments CULTURE (BEAKER) (test dgcw=0246) No growth POCT-GLUCOSE [id number] 17:10:00 Test Item Value Reference Range Comments POC-GLUCOSE METER (BEAKER) 232 mg/dL 70-110 TESTED AT [address] (test uofi=4278) [facility] [address] [address], CTANGIO [id number] 16:41:00CTV pleaseFINAL REPORT CTV brain 02/13/2018 4:35 [...] Pizarro Verified Date/Time: 02/13/2018 16:41:24 Reading Location: [facility] Radiology Reading Room Electronically signed by: BLAISE PIZARRO M.D. on 04:41 PMPOCT-GLUCOSE [id number] 13:07:00 Test Item Value Reference Range Comments POC-GLUCOSE METER (BEAKER) 311 mg/dL 70-110 Notified MELANIE MUÑOZ/TESTED AT [facility] (test aiys=6284) [address] [facility] [address] IRON, TIBC, % SAT. (WITHOUT FERRITIN)2018-02-13 10:10:00 Test Item Value Reference Range Comments IRON (BEAKER) (test gltw=798) 49 ug/dL 40-160 TOTAL IRON BINDING CAPACITY (BEAKER) (test 231 ug/dL 250-450 fpox=284) IRON % SATURATION (2) (BEAKER) (test ehxh=8678) 21 % 20-55 POCT-GLUCOSE [id number] 08:50:00 Test Item Value Reference Range Comments POC-GLUCOSE METER (BEAKER) 348 mg/dL 70-110 Notified MELANIE MUÑOZ/TESTED AT [facility] (test illo=6027) [address] [facility] [address] BASIC METABOLIC [id number] 08:31:00 Test Item Value Reference Range Comments SODIUM (BEAKER) (test 134 meq/L 136-145 fazq=295) POTASSIUM (BEAKER) (test 5.4 meq/L 3.5-5.1 Specimen slightly fytp=288) hemolyzed CHLORIDE (BEAKER) (test 101 meq/L 98-107 wipk=663) CO2 (BEAKER) (test 26 meq/L 22-29 qsnl=510) BLOOD UREA NITROGEN 9 mg/dL 7-21 (BEAKER) (test nsak=955) CREATININE (BEAKER) (test 1.01 mg/dL 0.57-1.25 Specimen slightly owle=328) hemolyzed GLUCOSE RANDOM (BEAKER) 347 mg/dL 70-105 (test kpkb=514) CALCIUM (BEAKER) (test 8.9 mg/dL 8.4-10.2 kekb=281) EGFR (BEAKER) (test 80 mL/min/1.73 sq m ESTIMATED GFR IS NOT hzih=4652) ACCURATE CREATININE CLEARANCE IN PREDICTING GLOMERULAR FILTRATION RATE. ESTIMATED GFR IS NOT APPLICABLE FOR DIALYSIS PATIENTS. LIPID [id number] 08:31:00 Test Item Value Reference Range Comments TRIGLYCERIDES (BEAKER) (test 189 mg/dL Specimen slightly hemolyzed gtfp=146) CHOLESTEROL (BEAKER) (test 265 mg/dL Specimen slightly hemolyzed pkrg=379) HDL CHOLESTEROL (BEAKER) (test 46 mg/dL wuqc=459) LDL CHOLESTEROL CALCULATED 181 mg/dL (BEAKER) (test wpnt=298) Triglyceride Reference Range: Low Risk <150 Borderline 150- 199 High Risk 200-499 Very High Risk >=500Cholesterol Reference Range: Low Risk <200 Borderline 200-239 High Risk > 240HDL Cholesterol Reference Range: Low Risk >=60 High Risk <40LDL Cholesterol Reference Range: Optimal <100 Near Optimal 100-129 Borderline 130-159 High 160-189 Very High >=190IMMATURE RETICULOCYTE [id number] 08:16:00 Test Item Value Reference Range Comments IMMATURE RETIC FRACTION (BEAKER) (test arwt=2605) 8.600 % 2.300-13.400 RETICULOCYTE COUNT PCT (BEAKER) (test hlwq=272) 1.4 % 0.5-1.8 CBC W/PLT COUNT & AUTO [id number] 08:16:00 Test Item Value Reference Range Comments WHITE BLOOD CELL COUNT (BEAKER) (test kimt=172) 8.5 K/ L 3.5-10.5 RED BLOOD CELL COUNT (BEAKER) (test jfvk=595) 4.49 M/ L 4.63-6.08 HEMOGLOBIN (BEAKER) (test ibri=993) 14.5 GM/DL 13.7-17.5 HEMATOCRIT (BEAKER) (test hyzh=611) 44.1 % 40.1-51.0 MEAN CORPUSCULAR VOLUME (BEAKER) (test htod=312) 98.2 fL 79.0-92.2 MEAN CORPUSCULAR HEMOGLOBIN (BEAKER) (test 32.3 pg 25.7-32.2 zegf=747) MEAN CORPUSCULAR HEMOGLOBIN CONC (BEAKER) (test 32.9 GM/DL 32.3-36.5 lcyr=073) RED CELL DISTRIBUTION WIDTH (BEAKER) (test 12.8 % 11.6-14.4 bsjv=633) PLATELET COUNT (BEAKER) (test uewb=144) 365 K/CU MM 150-450 MEAN PLATELET VOLUME (BEAKER) (test tjrr=367) 10.3 fL 9.4-12.4 NUCLEATED RED BLOOD CELLS (BEAKER) (test 0 /100 WBC 0-0 gzyx=429) NEUTROPHILS RELATIVE PERCENT (BEAKER) (test 59 % ikce=670) LYMPHOCYTES RELATIVE PERCENT (BEAKER) (test 23 % kzmc=226) MONOCYTES RELATIVE PERCENT (BEAKER) (test 8 % gwqs=351) EOSINOPHILS RELATIVE PERCENT (BEAKER) (test 9 % acia=188) BASOPHILS RELATIVE PERCENT (BEAKER) (test 1 % rnom=192) NEUTROPHILS ABSOLUTE COUNT (BEAKER) (test 5.00 K/ L 1.78-5.38 qwju=640) LYMPHOCYTES ABSOLUTE COUNT (BEAKER) (test 1.94 K/ L 1.32-3.57 amwn=743) MONOCYTES ABSOLUTE COUNT (BEAKER) (test 0.67 K/ L 0.30-0.82 lber=861) EOSINOPHILS ABSOLUTE COUNT (BEAKER) (test 0.73 K/ L 0.04-0.54 ptrv=940) BASOPHILS ABSOLUTE COUNT (BEAKER) (test 0.10 K/ L 0.01-0.08 qaov=359) IMMATURE GRANULOCYTES-RELATIVE PERCENT (BEAKER) 0 % 0-1 (test kiim=0561) POCT-GLUCOSE [id number] 21:18:00 Test Item Value Reference Range Comments POC-GLUCOSE METER (BEAKER) 226 mg/dL 70-110 TESTED AT [facility] [address] [facility] (test iqpy=3402) [facility] [address] MR, BRAIN, WITHOUT [id number] 19:43:00FINAL REPORT MRI brain without contrast INDICATION: [...] thrombus cannot be excluded. The major proximal [place] of [place] flow voids are maintained. Mild [...] Gregory Verified Date/Time: 02/12/2018 19:43:32 Reading Location: [facility] Radiology Reading Room POCT-GLUCOSE [id number] 19:01:00 Test Item Value Reference Range Comments POC-GLUCOSE METER (BEAKER) 362 mg/dL 70-110 TESTED AT [address] (test ravg=0994) [facility] [address] EEG AWAKE AND [id number] 17:46:00Reason for exam:->SeizureShould this be performed at the bedside?->YesCH[facility] REPORTDATE OF TEST : 30-1-5267MWON OF REPORT: [id number]: [id number]: [id number] time: 14: 04Stop time: 14:24ICD-10: R56.9CPT Code: 83097LKXNKRC: 40 y old 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, [...] this report.Queenie Paiz MD, PhDClinical Neurophysiology/Epilepsy AttendingCHI [facility] [place] 05: 46 PMPOCT-GLUCOSE [id number] 15:33:00 Test Item Value Reference Range Comments POC-GLUCOSE METER (BEAKER) 213 mg/dL 70-110 TESTED AT [facility] [address] [facility] (test xgxc=0420) [facility] [address] TSH/FREE T4 IF [id number] 09:35:00 Test Item Value Reference Range Comments THYROID STIMULATING HORMONE (BEAKER) (test 4.03 uIU/mL 0.35-4.94 wfzo=541) HEMOGLOBIN [id number] 08:47:00 Test Item Value Reference Range Comments HEMOGLOBIN A1C (BEAKER) (test afrx=595) 6.5 % 4.3-6.1 POCT-GLUCOSE [id number] 07:55:00 Test Item Value Reference Range Comments POC-GLUCOSE METER (BEAKER) 219 mg/dL 70-110 TESTED AT [facility] [address] (test eicn=3612) [facility] [address] [id number] 05:00:00 Test Item Value Reference Range Comments MAGNESIUM (BEAKER) (test rpde=060) 2.1 mg/dL 1.6-2.6 BASIC METABOLIC [id number] 05:00:00 Test Item Value Reference Range Comments SODIUM (BEAKER) (test 139 meq/L 136-145 onmt=453) POTASSIUM (BEAKER) (test 4.1 meq/L 3.5-5.1 lnot=745) CHLORIDE (BEAKER) (test 109 meq/L 98-107 iwpt=464) CO2 (BEAKER) (test 25 meq/L 22-29 enzo=906) BLOOD UREA NITROGEN 7 mg/dL 7-21 (BEAKER) (test gopx=870) CREATININE (BEAKER) (test 0.81 mg/dL 0.57-1.25 qpyj=972) GLUCOSE RANDOM (BEAKER) 167 mg/dL 70-105 (test irkt=468) CALCIUM (BEAKER) (test 9.0 mg/dL 8.4-10.2 mdmh=686) EGFR (BEAKER) (test 104 mL/min/1.73 sq m ESTIMATED GFR IS NOT qccl=7292) ACCURATE CREATININE CLEARANCE IN PREDICTING GLOMERULAR FILTRATION RATE. ESTIMATED GFR IS NOT APPLICABLE FOR DIALYSIS PATIENTS. CBC W/PLT COUNT & AUTO [id number] 04:40:00 Test Item Value Reference Range Comments WHITE BLOOD CELL COUNT (BEAKER) (test hjnb=157) 11.3 K/ L 3.5-10.5 RED BLOOD CELL COUNT (BEAKER) (test aolg=947) 4.09 M/ L 4.63-6.08 HEMOGLOBIN (BEAKER) (test lmxt=762) 13.1 GM/DL 13.7-17.5 HEMATOCRIT (BEAKER) (test xfip=415) 39.8 % 40.1-51.0 MEAN CORPUSCULAR VOLUME (BEAKER) (test uzfi=682) 97.3 fL 79.0-92.2 MEAN CORPUSCULAR HEMOGLOBIN (BEAKER) (test 32.0 pg 25.7-32.2 wnaz=725) MEAN CORPUSCULAR HEMOGLOBIN CONC (BEAKER) (test 32.9 GM/DL 32.3-36.5 iouy=283) RED CELL DISTRIBUTION WIDTH (BEAKER) (test 12.8 % 11.6-14.4 duwd=249) PLATELET COUNT (BEAKER) (test xzja=674) 344 K/CU MM 150-450 MEAN PLATELET VOLUME (BEAKER) (test fuwq=076) 9.5 fL 9.4-12.4 NUCLEATED RED BLOOD CELLS (BEAKER) (test 0 /100 WBC 0-0 oiyx=060) NEUTROPHILS RELATIVE PERCENT (BEAKER) (test 61 % aukj=586) LYMPHOCYTES RELATIVE PERCENT (BEAKER) (test 24 % eesq=042) MONOCYTES RELATIVE PERCENT (BEAKER) (test 8 % vmfx=617) EOSINOPHILS RELATIVE PERCENT (BEAKER) (test 7 % vglr=831) BASOPHILS RELATIVE PERCENT (BEAKER) (test 1 % tteo=970) NEUTROPHILS ABSOLUTE COUNT (BEAKER) (test 6.86 K/ L 1.78-5.38 qkdf=375) LYMPHOCYTES ABSOLUTE COUNT (BEAKER) (test 2.67 K/ L 1.32-3.57 qxhk=370) MONOCYTES ABSOLUTE COUNT (BEAKER) (test 0.85 K/ L 0.30-0.82 jwsr=086) EOSINOPHILS ABSOLUTE COUNT (BEAKER) (test 0.79 K/ L 0.04-0.54 oiuq=084) BASOPHILS ABSOLUTE COUNT (BEAKER) (test 0.07 K/ L 0.01-0.08 ipay=934) IMMATURE GRANULOCYTES-RELATIVE PERCENT (BEAKER) 0 % 0-1 (test mqth=9755) POCT-GLUCOSE [id number] 04:31:00 Test Item Value Reference Range Comments POC-GLUCOSE METER (BEAKER) 183 mg/dL 70-110 TESTED AT [facility] [address] [facility] (test mfgf=1773) [facility] [address] RAD, ABDOMEN/KUB, 1 VIEW [id number] 01:33:00Reason for exam:->Abdominal distension, obtundationFINAL REPORT CLINICAL [...] Verified Date/ Time: 02/12/2018 01:33:19 Reading Location: [address] Transitional Reading Room POCT-GLUCOSE [id number] 00:49:00 Test Item Value Reference Range Comments POC-GLUCOSE METER (BEAKER) 346 mg/dL 70-110 TESTED AT [facility] [address] [facility] (test rolz=3335) [facility] [address] CBC W/PLT COUNT & AUTO [id number] 00:44:00 Test Item Value Reference Range Comments WHITE BLOOD CELL COUNT (BEAKER) (test bqwj=879) 14.3 K/ L 3.5-10.5 RED BLOOD CELL COUNT (BEAKER) (test pbgb=456) 4.26 M/ L 4.63-6.08 HEMOGLOBIN (BEAKER) (test rbrg=341) 13.8 GM/DL 13.7-17.5 HEMATOCRIT (BEAKER) (test bcel=082) 42.1 % 40.1-51.0 MEAN CORPUSCULAR VOLUME (BEAKER) (test tvmn=592) 98.8 fL 79.0-92.2 MEAN CORPUSCULAR HEMOGLOBIN (BEAKER) (test 32.4 pg 25.7-32.2 xzxs=300) MEAN CORPUSCULAR HEMOGLOBIN CONC (BEAKER) (test 32.8 GM/DL 32.3-36.5 qlng=021) RED CELL DISTRIBUTION WIDTH (BEAKER) (test 12.9 % 11.6-14.4 mydr=522) PLATELET COUNT (BEAKER) (test kdwt=173) 366 K/CU MM 150-450 MEAN PLATELET VOLUME (BEAKER) (test zvdn=774) 9.8 fL 9.4-12.4 NUCLEATED RED BLOOD CELLS (BEAKER) (test 0 /100 WBC 0-0 dvao=789) NEUTROPHILS RELATIVE PERCENT (BEAKER) (test 74 % ajfr=270) LYMPHOCYTES RELATIVE PERCENT (BEAKER) (test 13 % matv=115) MONOCYTES RELATIVE PERCENT (BEAKER) (test 7 % ozcp=696) EOSINOPHILS RELATIVE PERCENT (BEAKER) (test 5 % jemj=115) BASOPHILS RELATIVE PERCENT (BEAKER) (test 1 % kbmv=328) NEUTROPHILS ABSOLUTE COUNT (BEAKER) (test 10.60 K/ L 1.78-5.38 hprg=864) LYMPHOCYTES ABSOLUTE COUNT (BEAKER) (test 1.80 K/ L 1.32-3.57 fjci=335) MONOCYTES ABSOLUTE COUNT (BEAKER) (test 1.06 K/ L 0.30-0.82 adzq=020) EOSINOPHILS ABSOLUTE COUNT (BEAKER) (test 0.69 K/ L 0.04-0.54 ydeh=877) BASOPHILS ABSOLUTE COUNT (BEAKER) (test 0.09 K/ L 0.01-0.08 ddew=466) IMMATURE GRANULOCYTES-RELATIVE PERCENT (BEAKER) 0 % 0-1 (test optg=5681) RAPID DRUG SCREEN, [id number] 00:35:00 Test Item Value Reference Range Comments BARBITURATE URINE (BEAKER) (test nuvb=042) Negative Negative BENZODIAZEPINE SCREEN URINE (BEAKER) (test Negative Negative rgiw=717) COCAINE (METAB.) SCREEN (BEAKER) (test qwhh=2306) Negative Negative METHADONE SCREEN (BEAKER) (test nbwa=9293) Negative Negative OPIATE SCREEN URINE (BEAKER) (test cjvf=572) Negative Negative CANNABINOID SCREEN URINE (BEAKER) (test bhqg=132) Negative Negative AMPH/METHAMPH SCREEN (BEAKER) (test glvi=0643) Negative Negative PHENCYCLIDINE SCREEN URINE (BEAKER) (test ivmd=825) Negative Negative OXYCODONE SCREEN URINE (BEAKER) (test jyft=8852) Negative Negative DRUG CUTOFF CONC.Cocaine 300 ng/mL Cannabinoid 50 ng/mL Benzodiazepine 200 ng/mLBarbiturate 200 ng/ mLPhencyclidine 25 ng/mLOpiate 300 ng/mLMethadone 300 ng/mLAmphetamine/ 1000 ng/mL MethamphetamineOxycodone 300 ng/mLThis assay provides an unconfirmed qualitative test result for the clinical management of patients in emergency situations. Chain of custody not maintained. Some jrkd-amk-jczmomo medications, as well as adulterants, may cause inaccurate results. Clinical correlation should be applied. A more comprehensive drug screen or confirmation of a detected drug may be performed upon request.TROPONIN [id number] 00:15:00 Test Item Value Reference Range Comments TROPONIN I (BEAKER) (test voch=978) < ng/mL 0.00-0.03 Troponin I (TnI) levels [...] acute neurological disease, and persistent tachyarrhythmia.COMPREHENSIVE METABOLIC [id number] 00:09:00 Test Item Value Reference Range Comments TOTAL PROTEIN (BEAKER) 6.9 gm/dL 6.0-8.3 (test vcwp=099) ALBUMIN (BEAKER) (test 3.8 g/dL 3.5-5.0 jrui=2157) ALKALINE PHOSPHATASE 95 U/L 40-150 (BEAKER) (test qeti=799) BILIRUBIN TOTAL (BEAKER) 0.6 mg/dL 0.2-1.2 (test ayhm=103) SODIUM (BEAKER) (test 135 meq/L 136-145 iqwp=128) POTASSIUM (BEAKER) (test 5.0 meq/L 3.5-5.1 foyr=890) CHLORIDE (BEAKER) (test 104 meq/L 98-107 rnqv=892) CO2 (BEAKER) (test 25 meq/L 22-29 kxyr=565) BLOOD UREA NITROGEN 8 mg/dL 7-21 (BEAKER) (test xvuc=102) CREATININE (BEAKER) (test 1.03 mg/dL 0.57-1.25 sqpl=903) GLUCOSE RANDOM (BEAKER) 292 mg/dL 70-105 (test ryfw=463) CALCIUM (BEAKER) (test 9.2 mg/dL 8.4-10.2 lgnb=664) AST (SGOT) (BEAKER) (test 23 U/L 5-34 gyzk=152) ALT (SGPT) (BEAKER) (test 17 U/L 6-55 hwlu=301) EGFR (BEAKER) (test 78 mL/min/1.73 sq m ESTIMATED GFR IS NOT xprm=5767) ACCURATE CREATININE CLEARANCE IN PREDICTING GLOMERULAR FILTRATION RATE. ESTIMATED GFR IS NOT APPLICABLE FOR DIALYSIS PATIENTS. URINALYSIS W/ [id number] 00:06:00 Test Item Value Reference Range Comments COLOR (BEAKER) (test ywzt=360) Light Yellow CLARITY (BEAKER) (test cugx=043) Clear SPECIFIC GRAVITY UA (BEAKER) (test vmoj=560) 1.007 1.001-1.035 PH UA (BEAKER) (test xkfy=859) 6.5 5.0-8.0 PROTEIN UA (BEAKER) (test vcwo=065) Negative Negative GLUCOSE UA (BEAKER) (test dkwo=481) 500 mg/dL Negative KETONES UA (BEAKER) (test unbc=596) Negative Negative BILIRUBIN UA (BEAKER) (test bmft=590) Negative Negative BLOOD UA (BEAKER) (test ionq=847) Negative Negative NITRITE UA (BEAKER) (test izla=915) Negative Negative LEUKOCYTE ESTERASE UA (BEAKER) (test cnwj=735) Negative Negative UROBILINOGEN UA (BEAKER) (test xdem=420) 0.2 mg/dL 0.2-1.0 RBC UA (BEAKER) (test atuu=383) < /HPF WBC UA (BEAKER) (test nonf=947) 1 /HPF MUCUS (BEAKER) (test wxeu=1583) Rare SOURCE(BEAKER) (test zvok=6181) RAD, CHEST, 1 VIEW, NON [id number] 23:11:00Reason for exam:->Obtundation with coarse respirations, baselineShould this be performed at the bedside?-> YesFINAL REPORT RAD, CHEST, 1 VIEW, NON DEPT INDICATION: Obtundation with coarserespirations, baseline COMPARISON: None. FINDINGS: Portable frontal view of the chest. IMPRESSION: Support Lines: None. Lungs and pleura: Clear lungs. No pneumothorax.Heart and mediastinum: Unremarkable. Additional findings: Fluid and gaseous distention of the gastric lumen. Signed: JR Lozano [facility] Verified Date/Time: 02/11/2018 23:11:04 Reading Location: [address]Reading [address]
--- NOTE | 2019-05-02 07:23 | ER ---
Nurse's Notes [facility] Name: Surjit Stubbs Age: 44 yrs Sex: Male : 1975 Arrival Date: 05/02/2019 Time: 06:31 Bed 14 Private MD: Diagnosis: Hypoglycemia, unspecified;Seizure Presentation: 05/02 06:40 Presenting complaint: EMS states: Reports they were called for witnessed seizure, blood ea sugar was 26 upon EMS arrival. Pt girlfriend reports the seizure lasted about 1 minute. EMS reported giving D 10 in 250 ml bolus. Transition of care: patient was not received from another setting of care. Onset of symptoms was May 02, 2019. Risk Assessment: Do you want to hurt yourself or someone else? Patient reports no desire to harm self or others. Initial Sepsis Screen: Does the patient meet any 2 criteria? HR > 90 bpm. Does the patient have a suspected source of infection? No. Patient's initial sepsis screen is negative. Care prior to arrival: 20 G to right AC. 06:40 Method Of Arrival: EMS: [facility] ea 06:40 Acuity: TOI 3 ea Triage Assessment: 06:57 General: Appears in no apparent distress. Behavior is calm, cooperative, appropriate ea for age. Pain: Denies pain. Neuro: Level of Consciousness is awake, alert, obeys commands, Oriented to person, place, time, situation. Historical: - Allergies: 06:55 tramadol; ea - Home Meds: 06:55 acetaminophen-codeine 300-60 mg Oral tab [Active]; [place] Thyroid 60 mg Oral tab ea [Active]; gabapentin 100 mg Oral cap [Active]; levetiracetam 500 mg Oral tab 1 tab 2 times per day [Active]; Glucagon Emergency Kit (human) 1 mg IM kit 1 mL [Active]; gemfibrozil 600 mg Oral tab 1 tab 2 times per day [Active]; Novolog Sub-Q [Active]; - PMHx: 06:55 Seizures; neuropathy; Hypothyroidism; High Cholesterol; Diabetes - IDDM; ea - Immunization history:: Adult Immunizations up to date. - Social history:: Smoking status: unknown. - Ebola Screening: : No symptoms or risks identified at this time. Screenin:52 Abuse screen: Denies threats or abuse. Nutritional screening: No deficits noted. ea Tuberculosis screening: No symptoms or risk factors identified. Fall Risk IV access (20 points). Assessment: 07:00 General: Appears in no apparent distress. comfortable, Behavior is drowsy, RECD REPORT bp FROM DEMETRICE NAVARRO. Pain: Denies pain. Neuro: Level of Consciousness is lethargic. Cardiovascular: Rhythm is. Respiratory: No deficits noted. GI: No signs and/or symptoms were reported involving the gastrointestinal system. : No signs and/or symptoms were reported regarding the genitourinary system. EENT: No deficits noted. Derm: No deficits noted. Musculoskeletal: No deficits noted. 07:15 Reassessment: PT REFUSING FURTHER MEDICAL TREATMENT. ENCOURAGED TO STAY BY STAFF AND bp PROVIDER BUT DECLINED. PT ATE SANDWICH AND S/O AT B/S. PT ENCOURAGED TO RETURN IF S/S RETURN. PT AO3, AMBULATORY WITH STEADY GAIT. Vital Signs: 06:56 BP 136 / 87; Pulse 93; Resp 18; Temp 98.7; Pulse Ox 97% on R/A; ea 07:15 BP 120 / 82; Pulse 98; Resp 16; Temp 98.5; Pulse Ox 98% ; bp Era Coma Score: 06:57 Eye Response: spontaneous(4). Verbal Response: oriented(5). Motor Response: obeys ea commands(6). Total: 15. ED Course: 06:31 Patient arrived in ED. ds1 06:31 Jame Vaughan MD is Attending Physician. zarina 06:31 Luis Pollock [facility]NP-C is [facility]. la1 06:52 Triage completed. ea 06:53 Patient has correct armband on for positive identification. Bed in low position. Call ea light in reach. Side rails up X2. 06:57 Arm band placed on left wrist. Patient placed in an exam room, on a stretcher, on pulse ea oximetry. 06:59 Dion Parrish, MELANIE is Primary Nurse. bp 07:02 No provider procedures requiring assistance completed. bp 07:02 Maintain EMS IV. Dressing intact. Good blood return noted. Site clean \T\ dry. Gauge \T\ bp site: 20 G R AC. 07:20 IV discontinued, intact, bleeding controlled, No redness/swelling at site. Pressure bp dressing applied. Administered Medications: No medications were administered Outcome: 07:20 AMA AMA form signed bp 07:20 Condition: stable 07:35 Patient left the ED. bp Signatures: Jame Vaughan MD MD cha Sanford, Demi ds1 Luis Pollock, SHOE MAKER-C SHOE MAKER-Sanjana1 Demetrice Bower, RN RN Dion De Jesus RN RN bp
--- NOTE | 2019-05-02 07:24 | EDPHYS ---
Physician Documentation [facility] Name: Surjit Stubbs Age: 44 yrs Sex: Male : 1975 Arrival Date: 05/02/2019 Time: 06:31 Bed 14 Private MD: ED Physician Jame Vaughan HPI: 05/02 06:42 This 44 yrs old Male presents to ER via Unassigned with complaints of la1 Seizure, Low Blood Sugar. 06:42 The patient presents after having a single isolated seizure. Character of seizure(s): la1 Motor activity: generalized, Incontinence: none, Apnea: the patient did not experience apnea, Circulation: the patient did not experience evidence of pulse disturbance. Seizure onset: this morning. Context: the seizure(s) was witnessed, by a significant other, girlfriend, occurred at home, occurred while the patient was lying down. Seizure Hx: Cause: hypoglycemia, Usual frequency: irregular frequency. Associated injury: The patient did not suffer any apparent associated injury. EMS care: IV fluids, D10, 10gm glucose. Current symptoms: confusion. The patient has experienced similar episodes in the past. Girlfriend called EMS for reported seizure, pt BGL less than 30 on EMS arrival, given 10gm glucose en route, Pt post ictal while with EMS, alert, oriented upon arrival to ED. PT takes insulin at home and has had multiple episodes similar to this in the past, EMS states "we run on him almost weekly and get refusals but this time he was a little disoriented after his seizure and did not come back to baseline immediately".. Historical: - Allergies: 06:55 tramadol; ea - Home Meds: 06:55 acetaminophen-codeine 300-60 mg Oral tab [Active]; [place] Thyroid 60 mg Oral tab ea [Active]; gabapentin 100 mg Oral cap [Active]; levetiracetam 500 mg Oral tab 1 tab 2 times per day [Active]; Glucagon Emergency Kit (human) 1 mg IM kit 1 mL [Active]; gemfibrozil 600 mg Oral tab 1 tab 2 times per day [Active]; Novolog Sub-Q [Active]; - PMHx: 06:55 Seizures; neuropathy; Hypothyroidism; High Cholesterol; Diabetes - IDDM; ea - Immunization history:: Adult Immunizations up to date. - Social history:: Smoking status: unknown. - Ebola Screening: : No symptoms or risks identified at this time. ROS: 06:45 Constitutional: Negative for fever, chills, and weight loss, Eyes: Negative for injury, la1 pain, redness, and discharge, ENT: Negative for injury, pain, and discharge, Neck: Negative for injury, pain, and swelling, Cardiovascular: Negative for chest pain, palpitations, and edema, Respiratory: Negative for shortness of breath, cough, wheezing, and pleuritic chest pain, Abdomen/GI: Negative for abdominal pain, nausea, vomiting, diarrhea, and constipation, Back: Negative for injury and pain, : Negative for injury, bleeding, discharge, and swelling, MS/Extremity: Negative for injury and deformity, Skin: Negative for injury, rash, and discoloration, Neuro: Negative for headache, weakness, numbness, tingling, and seizure, Endocrine: Negative for neck swelling, polydipsia, polyuria, polyphagia, and marked weight changes. Exam: 06:46 Constitutional: This is a well developed, well nourished patient who is awake, alert, la1 and in no acute distress. Head/Face: Normocephalic, atraumatic. Eyes: Pupils equal round and reactive to light, extra-ocular motions intact. Periorbital areas with no swelling, redness, or edema. ENT: Mucous membranes moist. Neck: Supple, full range of motion without nuchal rigidity, or vertebral point tenderness. No Meningismus. Chest/axilla: Normal chest wall appearance and motion. Nontender with no deformity. No lesions are appreciated. Cardiovascular: Regular rate and rhythm with a normal S1 and S2. No gallops, murmurs, or rubs. Normal PMI, no JVD. No pulse deficits. Respiratory: Lungs have equal breath sounds bilaterally, clear to auscultation No rales, rhonchi or wheezes noted. No increased work of breathing, no retractions or nasal flaring. Abdomen/GI: Soft, non-tender, with normal bowel sounds. No distension No guarding or rebound. No evidence of tenderness throughout. Back: No spinal tenderness. No costovertebral tenderness. Full range of motion. MS/ Extremity: Pulses equal, no cyanosis. Neurovascular intact. Full, normal range of motion. 06:46 Neuro: Orientation: is normal, to person, place, time \\T\\ situation. Mentation: is normal, lucid, able to follow commands, Cranial nerves: CN II- XII are normal as tested, visual renteria are intact. extraocular movements are intact, Cerebellar function: normal finger to nose testing, Motor: is normal, strength is 5/5 in all extremities. Vital Signs: 06:56 BP 136 / 87; Pulse 93; Resp 18; Temp 98.7; Pulse Ox 97% on R/A; ea 07:15 BP 120 / 82; Pulse 98; Resp 16; Temp 98.5; Pulse Ox 98% ; bp [place] Coma Score: 06:57 Eye Response: spontaneous(4). Verbal Response: oriented(5). Motor Response: obeys ea commands(6). Total: 15. MDM: 06:31 Patient medically screened. zarina 06:48 ED course: Pt refusing head/neck CT, pt is alert and oriented x4, seems to have good la1 judgement at this time. 07:18 ED course: Pt refused all medical intervention but did eat a sandwich, Pt is oriented la1 x4. Attempted to convince patient to stay for further observation and diagnostics but patient refused. . 07:19 Refusal of service: The patient/guardian displays adequate decision making capability la1 and despite a detailed discussion of alternatives, benefits, risks, and consequences refuses: CT Scan, all lab tests, Medications. 05/02 06:59 Order name: Glucose, Ancillary Testing [facility] 05/02 06:37 Order name: IV Saline Lock; Complete Time: 07:00 la1 05/02 06:37 Order name: Misc. Order: feed pt; Complete Time: 07:21 la1 Administered Medications: No medications were administered Disposition: 07:47 Co-signature as Attending Physician, Jame Vaughan MD I agree with the assessment and [facility] plan of care. Disposition: 05/02/19 07:20 Patient has left against medical advice. Impression: Hypoglycemia, unspecified, Seizure. - Patients states they are going to Home. - Condition is Stable. Follow up: Emergency Department; When: As needed. - Problem is an ongoing problem. - Symptoms have improved. Signatures: Dispatcher [employer] [facility] Jame Vaughan MD MD cha Attema, Lee, DIGITAL ASSISTANT-C DIGITAL ASSISTANT-Cla1 Demetrice Bower, RN RN ea Shivani, Dion, RN RN bp Corrections: (The following items were deleted from the chart) 06:45 06:38 Head C Spine MPR Wo Con+CT.RAD.BRZ ordered. EDMS EDMS 07:35 07:20 05/02/2019 07:20 Patients has left against medical advice. Impression: bp Hypoglycemia, unspecified; Seizure. Patient states they are going to Home. Condition is Stable. Follow up: Emergency Department; When: As needed. Problem is an ongoing problem. Symptoms have improved. la1
[2019-05-02 07:42] VITALS: BP 120/82; TEMP 98.5; O2SAT 98
== END 2019-05-02 07:35 | disposition left against medical advice (07) ==
LOC: ER 06:29
DX: G40.909 Epilepsy, unspecified, not intractable, without status epilepticus (principal); E03.9 Hypothyroidism, unspecified; E78.00 Pure hypercholesterolemia, unspecified; Z79.4 Long term (current) use of insulin; Z88.5 Allergy status to narcotic agent
CPT/HCPCS: 82947; 99283

== ENCOUNTER 2019-05-05 02:28 | Emergency (ER) | payer SELFPAY ==
--- OUTSIDE RECORDS SUMMARY | 2019-05-05 02:32 | XMS REPORT ---
:1975 Author Organization [facility] Address [facility] [address] [place] [id number] Care Team Providers Name Role Phone MARIA [...] Value Reference Range Comments CULTURE (BEAKER) (test pted=9948) No growth in 5 days URINE [id number] 10:25:00 Test Item Value Reference Range Comments CULTURE (BEAKER) (test rqns=4347) No growth POCT-GLUCOSE [id number] 17:10:00 Test Item Value Reference Range Comments POC-GLUCOSE METER (BEAKER) 232 mg/dL 70-110 TESTED AT [address] (test thzs=6965) [facility] [address] [address], CTANGIO [id number] 16:41:00CTV pleaseFINAL REPORT CTV brain 02/13/2018 4:35 [...] Pizarro Verified Date/Time: 02/13/2018 16:41:24 Reading Location: [facility] Radiology Reading Room Electronically signed by: BLAISE PIZARRO M.D. on 04:41 PMPOCT-GLUCOSE [id number] 13:07:00 Test Item Value Reference Range Comments POC-GLUCOSE METER (BEAKER) 311 mg/dL 70-110 Notified MELANIE MUÑOZ/TESTED AT [facility] (test bolz=7799) [address] [facility] [address] IRON, TIBC, % SAT. (WITHOUT FERRITIN)2018-02-13 10:10:00 Test Item Value Reference Range Comments IRON (BEAKER) (test xxng=368) 49 ug/dL 40-160 TOTAL IRON BINDING CAPACITY (BEAKER) (test 231 ug/dL 250-450 akqj=263) IRON % SATURATION (2) (BEAKER) (test ahhy=0904) 21 % 20-55 POCT-GLUCOSE [id number] 08:50:00 Test Item Value Reference Range Comments POC-GLUCOSE METER (BEAKER) 348 mg/dL 70-110 Notified MELANIE MUÑOZ/TESTED AT [facility] (test fgta=1045) [address] [facility] [address] BASIC METABOLIC [id number] 08:31:00 Test Item Value Reference Range Comments SODIUM (BEAKER) (test 134 meq/L 136-145 bika=824) POTASSIUM (BEAKER) (test 5.4 meq/L 3.5-5.1 Specimen slightly jimb=503) hemolyzed CHLORIDE (BEAKER) (test 101 meq/L 98-107 byvk=839) CO2 (BEAKER) (test 26 meq/L 22-29 nsrk=228) BLOOD UREA NITROGEN 9 mg/dL 7-21 (BEAKER) (test lrex=781) CREATININE (BEAKER) (test 1.01 mg/dL 0.57-1.25 Specimen slightly fiik=473) hemolyzed GLUCOSE RANDOM (BEAKER) 347 mg/dL 70-105 (test bxbl=845) CALCIUM (BEAKER) (test 8.9 mg/dL 8.4-10.2 muwz=125) EGFR (BEAKER) (test 80 mL/min/1.73 sq m ESTIMATED GFR IS NOT zikw=5015) ACCURATE CREATININE CLEARANCE IN PREDICTING GLOMERULAR FILTRATION RATE. ESTIMATED GFR IS NOT APPLICABLE FOR DIALYSIS PATIENTS. LIPID [id number] 08:31:00 Test Item Value Reference Range Comments TRIGLYCERIDES (BEAKER) (test 189 mg/dL Specimen slightly hemolyzed aynf=523) CHOLESTEROL (BEAKER) (test 265 mg/dL Specimen slightly hemolyzed fjdv=508) HDL CHOLESTEROL (BEAKER) (test 46 mg/dL spdp=375) LDL CHOLESTEROL CALCULATED 181 mg/dL (BEAKER) (test ucpj=152) Triglyceride Reference Range: Low Risk <150 Borderline 150- 199 High Risk 200-499 Very High Risk >=500Cholesterol Reference Range: Low Risk <200 Borderline 200-239 High Risk > 240HDL Cholesterol Reference Range: Low Risk >=60 High Risk <40LDL Cholesterol Reference Range: Optimal <100 Near Optimal 100-129 Borderline 130-159 High 160-189 Very High >=190IMMATURE RETICULOCYTE [id number] 08:16:00 Test Item Value Reference Range Comments IMMATURE RETIC FRACTION (BEAKER) (test pynb=8138) 8.600 % 2.300-13.400 RETICULOCYTE COUNT PCT (BEAKER) (test dugw=985) 1.4 % 0.5-1.8 CBC W/PLT COUNT & AUTO [id number] 08:16:00 Test Item Value Reference Range Comments WHITE BLOOD CELL COUNT (BEAKER) (test jfsy=181) 8.5 K/ L 3.5-10.5 RED BLOOD CELL COUNT (BEAKER) (test ocka=526) 4.49 M/ L 4.63-6.08 HEMOGLOBIN (BEAKER) (test tlfd=646) 14.5 GM/DL 13.7-17.5 HEMATOCRIT (BEAKER) (test mwwj=585) 44.1 % 40.1-51.0 MEAN CORPUSCULAR VOLUME (BEAKER) (test oujh=644) 98.2 fL 79.0-92.2 MEAN CORPUSCULAR HEMOGLOBIN (BEAKER) (test 32.3 pg 25.7-32.2 xoxa=103) MEAN CORPUSCULAR HEMOGLOBIN CONC (BEAKER) (test 32.9 GM/DL 32.3-36.5 qlhe=588) RED CELL DISTRIBUTION WIDTH (BEAKER) (test 12.8 % 11.6-14.4 qrxf=429) PLATELET COUNT (BEAKER) (test ounx=658) 365 K/CU MM 150-450 MEAN PLATELET VOLUME (BEAKER) (test xmws=450) 10.3 fL 9.4-12.4 NUCLEATED RED BLOOD CELLS (BEAKER) (test 0 /100 WBC 0-0 kwec=941) NEUTROPHILS RELATIVE PERCENT (BEAKER) (test 59 % bbjm=206) LYMPHOCYTES RELATIVE PERCENT (BEAKER) (test 23 % xydc=067) MONOCYTES RELATIVE PERCENT (BEAKER) (test 8 % wscu=805) EOSINOPHILS RELATIVE PERCENT (BEAKER) (test 9 % igvg=618) BASOPHILS RELATIVE PERCENT (BEAKER) (test 1 % rkgn=461) NEUTROPHILS ABSOLUTE COUNT (BEAKER) (test 5.00 K/ L 1.78-5.38 oprz=836) LYMPHOCYTES ABSOLUTE COUNT (BEAKER) (test 1.94 K/ L 1.32-3.57 ybtc=713) MONOCYTES ABSOLUTE COUNT (BEAKER) (test 0.67 K/ L 0.30-0.82 rxng=951) EOSINOPHILS ABSOLUTE COUNT (BEAKER) (test 0.73 K/ L 0.04-0.54 gjxk=138) BASOPHILS ABSOLUTE COUNT (BEAKER) (test 0.10 K/ L 0.01-0.08 ibzo=431) IMMATURE GRANULOCYTES-RELATIVE PERCENT (BEAKER) 0 % 0-1 (test ulyh=3446) POCT-GLUCOSE [id number] 21:18:00 Test Item Value Reference Range Comments POC-GLUCOSE METER (BEAKER) 226 mg/dL 70-110 TESTED AT [facility] [address] [facility] (test ijij=7990) [facility] [address] MR, BRAIN, WITHOUT [id number] 19:43:00FINAL REPORT MRI brain without contrast INDICATION: [...] thrombus cannot be excluded. The major proximal mcgrath of [place] flow voids are maintained. Mild [...] Gregory Verified Date/Time: 02/12/2018 19:43:32 Reading Location: [facility] Radiology Reading Room POCT-GLUCOSE [id number] 19:01:00 Test Item Value Reference Range Comments POC-GLUCOSE METER (BEAKER) 362 mg/dL 70-110 TESTED AT [address] (test llgg=5389) [facility] [address] EEG AWAKE AND [id number] 17:46:00Reason for exam:->SeizureShould this be performed at the bedside?->YesCH[facility] EEG REPORTDATE OF TEST : [id number] OF REPORT: [id number]: [id number]: [id number] time: 14: 04Stop time: 14:24ICD-10: R56.9CPT Code: 93159ZAVGIDP: 40 y old 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, [...] this report.Queenie Paiz MD, PhDClinical Neurophysiology/Epilepsy AttendingCHI Herrick Campus 05: 46 PMPOCT-GLUCOSE [id number] 15:33:00 Test Item Value Reference Range Comments POC-GLUCOSE METER (BEAKER) 213 mg/dL 70-110 TESTED AT [facility] [address] [facility] (test bxol=0340) [facility] [address] TSH/FREE T4 IF [id number] 09:35:00 Test Item Value Reference Range Comments THYROID STIMULATING HORMONE (BEAKER) (test 4.03 uIU/mL 0.35-4.94 efvm=941) HEMOGLOBIN [id number] 08:47:00 Test Item Value Reference Range Comments HEMOGLOBIN A1C (BEAKER) (test dfcq=628) 6.5 % 4.3-6.1 POCT-GLUCOSE [id number] 07:55:00 Test Item Value Reference Range Comments POC-GLUCOSE METER (BEAKER) 219 mg/dL 70-110 TESTED AT [facility] [address] (test ncdw=4266) [facility] [address] [id number] 05:00:00 Test Item Value Reference Range Comments MAGNESIUM (BEAKER) (test wbon=502) 2.1 mg/dL 1.6-2.6 BASIC METABOLIC [id number] 05:00:00 Test Item Value Reference Range Comments SODIUM (BEAKER) (test 139 meq/L 136-145 vcya=851) POTASSIUM (BEAKER) (test 4.1 meq/L 3.5-5.1 urkd=838) CHLORIDE (BEAKER) (test 109 meq/L 98-107 gidm=465) CO2 (BEAKER) (test 25 meq/L 22-29 uqaf=503) BLOOD UREA NITROGEN 7 mg/dL 7-21 (BEAKER) (test ysjs=900) CREATININE (BEAKER) (test 0.81 mg/dL 0.57-1.25 dyco=955) GLUCOSE RANDOM (BEAKER) 167 mg/dL 70-105 (test wane=309) CALCIUM (BEAKER) (test 9.0 mg/dL 8.4-10.2 dcsn=004) EGFR (BEAKER) (test 104 mL/min/1.73 sq m ESTIMATED GFR IS NOT qeot=0430) ACCURATE CREATININE CLEARANCE IN PREDICTING GLOMERULAR FILTRATION RATE. ESTIMATED GFR IS NOT APPLICABLE FOR DIALYSIS PATIENTS. CBC W/PLT COUNT & AUTO [id number] 04:40:00 Test Item Value Reference Range Comments WHITE BLOOD CELL COUNT (BEAKER) (test kuzj=687) 11.3 K/ L 3.5-10.5 RED BLOOD CELL COUNT (BEAKER) (test jlug=123) 4.09 M/ L 4.63-6.08 HEMOGLOBIN (BEAKER) (test zbgx=693) 13.1 GM/DL 13.7-17.5 HEMATOCRIT (BEAKER) (test wlbd=424) 39.8 % 40.1-51.0 MEAN CORPUSCULAR VOLUME (BEAKER) (test hnek=627) 97.3 fL 79.0-92.2 MEAN CORPUSCULAR HEMOGLOBIN (BEAKER) (test 32.0 pg 25.7-32.2 tjcn=852) MEAN CORPUSCULAR HEMOGLOBIN CONC (BEAKER) (test 32.9 GM/DL 32.3-36.5 rtcz=347) RED CELL DISTRIBUTION WIDTH (BEAKER) (test 12.8 % 11.6-14.4 cowa=909) PLATELET COUNT (BEAKER) (test plzj=760) 344 K/CU MM 150-450 MEAN PLATELET VOLUME (BEAKER) (test vcrp=314) 9.5 fL 9.4-12.4 NUCLEATED RED BLOOD CELLS (BEAKER) (test 0 /100 WBC 0-0 lzqz=301) NEUTROPHILS RELATIVE PERCENT (BEAKER) (test 61 % ltqs=398) LYMPHOCYTES RELATIVE PERCENT (BEAKER) (test 24 % tsrk=083) MONOCYTES RELATIVE PERCENT (BEAKER) (test 8 % buox=013) EOSINOPHILS RELATIVE PERCENT (BEAKER) (test 7 % vsko=864) BASOPHILS RELATIVE PERCENT (BEAKER) (test 1 % xoxv=136) NEUTROPHILS ABSOLUTE COUNT (BEAKER) (test 6.86 K/ L 1.78-5.38 wdrl=083) LYMPHOCYTES ABSOLUTE COUNT (BEAKER) (test 2.67 K/ L 1.32-3.57 fwry=913) MONOCYTES ABSOLUTE COUNT (BEAKER) (test 0.85 K/ L 0.30-0.82 ijjy=263) EOSINOPHILS ABSOLUTE COUNT (BEAKER) (test 0.79 K/ L 0.04-0.54 chup=566) BASOPHILS ABSOLUTE COUNT (BEAKER) (test 0.07 K/ L 0.01-0.08 yors=640) IMMATURE GRANULOCYTES-RELATIVE PERCENT (BEAKER) 0 % 0-1 (test lapl=8568) POCT-GLUCOSE [id number] 04:31:00 Test Item Value Reference Range Comments POC-GLUCOSE METER (BEAKER) 183 mg/dL 70-110 TESTED AT [facility] [address] [facility] (test cptu=2159) [facility] [address] RAD, ABDOMEN/KUB, 1 VIEW [id number] 01:33:00Reason for exam:->Abdominal distension, obtundationFINAL REPORT CLINICAL [...] Verified Date/ Time: 02/12/2018 01:33:19 Reading Location: [address] Transitional Reading Room POCT-GLUCOSE [id number] 00:49:00 Test Item Value Reference Range Comments POC-GLUCOSE METER (BEAKER) 346 mg/dL 70-110 TESTED AT [facility] [address] [facility] (test pwta=9827) [facility] [address] CBC W/PLT COUNT & AUTO [id number] 00:44:00 Test Item Value Reference Range Comments WHITE BLOOD CELL COUNT (BEAKER) (test lpzg=299) 14.3 K/ L 3.5-10.5 RED BLOOD CELL COUNT (BEAKER) (test xrhz=125) 4.26 M/ L 4.63-6.08 HEMOGLOBIN (BEAKER) (test detj=073) 13.8 GM/DL 13.7-17.5 HEMATOCRIT (BEAKER) (test pwcc=445) 42.1 % 40.1-51.0 MEAN CORPUSCULAR VOLUME (BEAKER) (test pbhq=939) 98.8 fL 79.0-92.2 MEAN CORPUSCULAR HEMOGLOBIN (BEAKER) (test 32.4 pg 25.7-32.2 oqiu=791) MEAN CORPUSCULAR HEMOGLOBIN CONC (BEAKER) (test 32.8 GM/DL 32.3-36.5 rlhp=660) RED CELL DISTRIBUTION WIDTH (BEAKER) (test 12.9 % 11.6-14.4 zsfx=558) PLATELET COUNT (BEAKER) (test gscn=477) 366 K/CU MM 150-450 MEAN PLATELET VOLUME (BEAKER) (test vnjf=136) 9.8 fL 9.4-12.4 NUCLEATED RED BLOOD CELLS (BEAKER) (test 0 /100 WBC 0-0 evuu=080) NEUTROPHILS RELATIVE PERCENT (BEAKER) (test 74 % hmeq=500) LYMPHOCYTES RELATIVE PERCENT (BEAKER) (test 13 % kvpj=013) MONOCYTES RELATIVE PERCENT (BEAKER) (test 7 % pbte=752) EOSINOPHILS RELATIVE PERCENT (BEAKER) (test 5 % iiir=696) BASOPHILS RELATIVE PERCENT (BEAKER) (test 1 % kcca=996) NEUTROPHILS ABSOLUTE COUNT (BEAKER) (test 10.60 K/ L 1.78-5.38 tmdl=692) LYMPHOCYTES ABSOLUTE COUNT (BEAKER) (test 1.80 K/ L 1.32-3.57 siwz=828) MONOCYTES ABSOLUTE COUNT (BEAKER) (test 1.06 K/ L 0.30-0.82 ashe=689) EOSINOPHILS ABSOLUTE COUNT (BEAKER) (test 0.69 K/ L 0.04-0.54 ztwh=175) BASOPHILS ABSOLUTE COUNT (BEAKER) (test 0.09 K/ L 0.01-0.08 zzxi=559) IMMATURE GRANULOCYTES-RELATIVE PERCENT (BEAKER) 0 % 0-1 (test udqz=5600) RAPID DRUG SCREEN, [id number] 00:35:00 Test Item Value Reference Range Comments BARBITURATE URINE (BEAKER) (test pauq=834) Negative Negative BENZODIAZEPINE SCREEN URINE (BEAKER) (test Negative Negative mgrv=631) COCAINE (METAB.) SCREEN (BEAKER) (test lidb=1291) Negative Negative METHADONE SCREEN (BEAKER) (test evrp=8935) Negative Negative OPIATE SCREEN URINE (BEAKER) (test ssjr=599) Negative Negative CANNABINOID SCREEN URINE (BEAKER) (test qwiz=843) Negative Negative AMPH/METHAMPH SCREEN (BEAKER) (test ubct=2157) Negative Negative PHENCYCLIDINE SCREEN URINE (BEAKER) (test ccuy=326) Negative Negative OXYCODONE SCREEN URINE (BEAKER) (test ocjc=9595) Negative Negative DRUG CUTOFF CONC.Cocaine 300 ng/mL Cannabinoid 50 ng/mL Benzodiazepine 200 ng/mLBarbiturate 200 ng/ mLPhencyclidine 25 ng/mLOpiate 300 ng/mLMethadone 300 ng/mLAmphetamine/ 1000 ng/mL MethamphetamineOxycodone 300 ng/mLThis assay provides an unconfirmed qualitative test result for the clinical management of patients in emergency situations. Chain of custody not maintained. Some sgeh-huk-tpzpznf medications, as well as adulterants, may cause inaccurate results. Clinical correlation should be applied. A more comprehensive drug screen or confirmation of a detected drug may be performed upon request.TROPONIN [id number] 00:15:00 Test Item Value Reference Range Comments TROPONIN I (BEAKER) (test bkbp=170) < ng/mL 0.00-0.03 Troponin I (TnI) levels [...] acute neurological disease, and persistent tachyarrhythmia.COMPREHENSIVE METABOLIC [id number] 00:09:00 Test Item Value Reference Range Comments TOTAL PROTEIN (BEAKER) 6.9 gm/dL 6.0-8.3 (test berm=208) ALBUMIN (BEAKER) (test 3.8 g/dL 3.5-5.0 hnih=3861) ALKALINE PHOSPHATASE 95 U/L 40-150 (BEAKER) (test dgbg=782) BILIRUBIN TOTAL (BEAKER) 0.6 mg/dL 0.2-1.2 (test shll=624) SODIUM (BEAKER) (test 135 meq/L 136-145 zasg=191) POTASSIUM (BEAKER) (test 5.0 meq/L 3.5-5.1 jfpt=437) CHLORIDE (BEAKER) (test 104 meq/L 98-107 pfjg=114) CO2 (BEAKER) (test 25 meq/L 22-29 mnmy=800) BLOOD UREA NITROGEN 8 mg/dL 7-21 (BEAKER) (test cpqw=558) CREATININE (BEAKER) (test 1.03 mg/dL 0.57-1.25 jzsa=420) GLUCOSE RANDOM (BEAKER) 292 mg/dL 70-105 (test nmqz=778) CALCIUM (BEAKER) (test 9.2 mg/dL 8.4-10.2 cxsn=758) AST (SGOT) (BEAKER) (test 23 U/L 5-34 lytb=742) ALT (SGPT) (BEAKER) (test 17 U/L 6-55 ohjz=651) EGFR (BEAKER) (test 78 mL/min/1.73 sq m ESTIMATED GFR IS NOT yzpj=9101) ACCURATE CREATININE CLEARANCE IN PREDICTING GLOMERULAR FILTRATION RATE. ESTIMATED GFR IS NOT APPLICABLE FOR DIALYSIS PATIENTS. URINALYSIS W/ [id number] 00:06:00 Test Item Value Reference Range Comments COLOR (BEAKER) (test ihrd=911) Light Yellow CLARITY (BEAKER) (test bmuz=312) Clear SPECIFIC GRAVITY UA (BEAKER) (test erjo=996) 1.007 1.001-1.035 PH UA (BEAKER) (test ubxk=990) 6.5 5.0-8.0 PROTEIN UA (BEAKER) (test swxv=268) Negative Negative GLUCOSE UA (BEAKER) (test gmzc=733) 500 mg/dL Negative KETONES UA (BEAKER) (test hqsn=687) Negative Negative BILIRUBIN UA (BEAKER) (test uquk=409) Negative Negative BLOOD UA (BEAKER) (test dpeh=201) Negative Negative NITRITE UA (BEAKER) (test oicq=792) Negative Negative LEUKOCYTE ESTERASE UA (BEAKER) (test vrws=079) Negative Negative UROBILINOGEN UA (BEAKER) (test zskn=672) 0.2 mg/dL 0.2-1.0 RBC UA (BEAKER) (test tdzq=707) < /HPF WBC UA (BEAKER) (test fimd=374) 1 /HPF MUCUS (BEAKER) (test xjgp=9335) Rare SOURCE(BEAKER) (test tltf=7906) RAD, CHEST, 1 VIEW, NON [id number] 23:11:00Reason for exam:->Obtundation with coarse respirations, baselineShould this be performed at the bedside?-> YesFINAL REPORT RAD, CHEST, 1 VIEW, NON DEPT INDICATION: Obtundation with coarserespirations, baseline COMPARISON: None. FINDINGS: Portable frontal view of the chest. IMPRESSION: Support Lines: None. Lungs and pleura: Clear lungs. No pneumothorax.Heart and mediastinum: Unremarkable. Additional findings: Fluid and gaseous distention of the gastric lumen. Signed: JR Lozano [facility] Verified Date/Time: 02/11/2018 23:11:04 Reading Location: [address]Reading Room
[2019-05-05] MEDS ORDERED: NA CHLORIDE 0.9% 1,000 ML ONE (02:45)
[2019-05-05 02:53] LABS: Absolute Lymphocytes (CBC) 1.8 K/uL (0.7-4.9); Basophils % 1.1 % (0-1.3); Hematocrit 41.4 % (39.6-49.0); Lymphocytes % 29.5 % (15.3-44.8); MPV 8.6 fL (7.6-11.3); RBC Red Blood Cell Count 4.38 M/uL (4.33-5.43)
[2019-05-05 02:56] LABS: Protime INR 0.93
[2019-05-05 03:40] LABS: ALT/SGPT 22 U/L (12-78); AST/SGOT 20 U/L (15-37); Albumin 3.1 g/dL (3.4-5.0); Alkaline Phosphatase 98 U/L (45-117); BUN Blood Urea Nitrogen 11 mg/dL (7-18); Bicarbonate 25 mmol/L (21-32); Bilirubin Direct 0.1 mg/dL (0-0.2); Bilirubin Total 0.3 mg/dL (0.2-1.0); Glucose Level 392 mg/dL (74-106); Potassium 3.5 mmol/L (3.5-5.1); Protein, Total 6.5 g/dL (6.4-8.2); Sodium Level 139 mmol/L (136-145); Troponin (Emerg Dept Use Only) < 0.02 ng/mL (0.0-0.045)
[2019-05-05 03:40] LABS: Barbiturates NEGATIVE (NEGATIVE); Benzodiazepines NEGATIVE (NEGATIVE); Cocaine POSITIVE (NEGATIVE); METHAMPHETAM POSITIVE (NEGATIVE); Methadone NEGATIVE (NEGATIVE); Opiates NEGATIVE (NEGATIVE); Phencyclidine NEGATIVE (NEGATIVE); THC Cannibis NEGATIVE (NEGATIVE)
[2019-05-05 04:02] LABS: Urine Blood TRACE (NEG); Urine Glucose 2+ (NEG); Urine Protein 2+ (NEG); Urine pH 6.5 (5.0-7.0)
--- NOTE | 2019-05-05 04:14 | ER ---
Nurse's Notes [facility] Name: Surjit Stubbs Age: 44 yrs Sex: Male : 1975 Arrival Date: 05/05/2019 Time: 02:29 Bed 3 Private MD: Diagnosis: Cocaine abuse with intoxication;Adverse effect of amphetamines;Epilepsy and recurrent seizures Presentation: 05/05 02:36 Presenting complaint: EMS states: called for for a patient reported not breathing. the rr5 lady in the house said she do CPR. when we arrived patient started coming back had like a jerky movement. found on the scene drug paraphernalia's methamphetamine and cocaine. Transition of care: patient was not received from another setting of care. Onset of symptoms was May 05, 2019. Risk Assessment: Do you want to hurt yourself or someone else? Unable to obtain. Initial Sepsis Screen: Does the patient meet any 2 criteria? No. Patient's initial sepsis screen is negative. Does the patient have a suspected source of infection? No. Patient's initial sepsis screen is negative. Note patient became hypotensive hooked to IVF NS 600 ml given, HR about 130's-140's came down to 90 bpm. Oxygen saturation 91-92% hooked to oxygen went up to 99%. CBG 411 mg/dl. Care prior to arrival: None. 02:36 Method Of Arrival: EMS: [facility] rr5 02:36 Acuity: TOI 2 rr5 Historical: - Allergies: 02:40 tramadol; rr5 - Home Meds: 02:40 acetaminophen-codeine 300-60 mg Oral tab [Active]; [place] Thyroid 60 mg Oral tab rr5 [Active]; gabapentin 100 mg Oral cap [Active]; gemfibrozil 600 mg Oral tab 1 tab 2 times per day [Active]; Glucagon Emergency Kit (human) 1 mg IM kit 1 mL [Active]; levetiracetam 500 mg Oral tab 1 tab 2 times per day [Active]; Novolog Sub-Q [Active]; - PMHx: 02:40 Diabetes - IDDM; High Cholesterol; Hypothyroidism; neuropathy; Seizures; rr5 - Immunization history:: Adult Immunizations unknown. - Social history:: Smoking status: unknown. - Ebola Screening: : Unable to complete screening because. - History obtained from: EMS. - Unable to obtain history due to: altered mental status. Screenin:45 Abuse screen: Denies threats or abuse. Denies injuries from another. Nutritional rr5 screening: No deficits noted. Tuberculosis screening: No symptoms or risk factors identified. Fall Risk IV access (20 points). Gait- Impaired (20 pts.). Mental Status- Overestimates/Forgets Limitations (15 pts.). Total Beck Fall Scale indicates High Risk Score (45 or more points). Fall prevention measures have been instituted. Side Rails Up X 2 Placed Close to Nursing Station Frequent Obs/Assessments Occuring. Assessment: 02:40 General: Appears in no apparent distress. unkempt, Behavior is drowsy, uncooperative. rr5 Pain: Denies pain. Neuro: Level of Consciousness is awake, alert, Oriented to person, place, time, Facial symmetry appears normal. 02:40 Cardiovascular: Capillary refill < 3 seconds Patient's skin is warm and dry. rr5 Respiratory: Airway is patent Respiratory effort is even, unlabored, Respiratory pattern is regular, symmetrical. GI: No signs and/or symptoms were reported involving the gastrointestinal system. : No signs and/or symptoms were reported regarding the genitourinary system. EENT: No signs and/or symptoms were reported regarding the EENT system. Derm: Skin is intact, Skin temperature is warm. Musculoskeletal: Capillary refill < 3 seconds. 02:45 Reassessment: Patient agitated, using urinal. lp1 03:40 Reassessment: Patient appears in no apparent distress at this time. resting eyes closed rr5 breathing spontaneously at room air. 03:55 Reassessment: patient is awake, he refused to do CT scan. ED provider aware. rr5 04:07 Reassessment: Patient's friend at bedside, patient awake, alert, talking with friend; lp1 States readiness to go home now; Provider notified. 04:16 Reassessment: Patient appears in no apparent distress at this time. Patient is alert, rr5 oriented x 3, equal unlabored respirations, skin warm/dry/pink. fully awake, talking to his checker in at bedside. wants to be discharge now. ED provider informed. AMA form explained and signed by the patient. accompanied by checker in [place] ([place]) going home. Vital Signs: 02:40 BP 134 / 79; Pulse 105; Resp 15; Temp 97.8; Pulse Ox 99% ; Weight 68.04 kg; Height 5 rr5 ft. 9 in. (175.26 cm); 03:47 BP 124 / 80; Pulse 91; Resp 16; Pulse Ox 99% on 2 lpm NC; rr5 04:08 BP 126 / 84; Pulse 114; Resp 19; Pulse Ox 99% on R/A; lp1 04:16 BP 125 / 80; Pulse 99; Resp 17; Pulse Ox 100% ; rr5 02:40 Body Mass Index 22.15 (68.04 kg, 175.26 cm) rr5 Gómez Coma Score: 02:40 Eye Response: spontaneous(4). Verbal Response: oriented(5). Motor Response: obeys rr5 commands(6). Total: 15. 04:16 Eye Response: spontaneous(4). Verbal Response: oriented(5). Motor Response: obeys rr5 commands(6). Total: 15. ED Course: 02:29 Patient arrived in ED. ds1 02:31 Frankie Wick MD is Attending Physician. rn 02:36 Jordi Benton RN is Primary Nurse. rr5 02:40 Maintain EMS IV. Dressing intact. Good blood return noted. Site clean \T\ dry. Gauge \T\ rr 5 site: G 18 left AC. 02:42 Triage completed. rr5 02:45 Arm band placed on. rr5 02:45 Patient has correct armband on for positive identification. Bed in low position. Side lp1 rails up X2. secured entrance monitor on. Pulse ox on. NIBP on. 03:00 Urine Drug Screen Sent. ds4 04:09 No provider procedures requiring assistance completed. lp1 04:16 IV discontinued, intact, bleeding controlled, No redness/swelling at site. Pressure rr5 dressing applied. Administered Medications: 02:50 Drug: NS 0.9% 1000 ml Route: IV; Rate: 1000 ml; Site: left antecubital; rr5 03:48 Follow up: Response: No adverse reaction; IV Status: Completed infusion; IV Intake: rr5 1000ml Intake: 03:48 IV: 1000ml; Total: 1000ml. rr5 Outcome: 04:16 AMA AMA form signed rr5 04:16 Condition: stable 04:16 Discharge instructions given to patient, AMA form explained Demonstrated understanding of instructions. 04:17 Patient left the ED. rr5 Signatures: Jeanette Mendes ds1 Frankie Wick MD MD rn Pena, Laura, RN RN lp1 Natan Hampton ds4 Jordi Benton RN RN rr5
--- NOTE | 2019-05-05 04:15 | EDPHYS ---
Physician Documentation [facility] Name: Surjit Stubbs Age: 44 yrs Sex: Male : 1975 Arrival Date: 05/05/2019 Time: 02:29 Bed 3 Private MD: ED Physician Frankie Wick HPI: 05/05 03:34 This 44 yrs old Male presents to ER via EMS with complaints of Possible rn Overdose. 03:34 The patient presents to the emergency department with a possible poisoning. Severity of rn symptoms: At their worst the symptoms were moderate in the emergency department the symptoms have improved. It is unknown whether or not the patient has had similar symptoms in the past. 911 called for unresponsiveness, found with drugs on his person, most notably big crack ball, woman who called 911 states was unresponsive, she panicked, performed CPR, when EMS arrived, was spont breathing, but not giving much information, stable vitals, no narcan given. . Historical: - Allergies: 02:40 tramadol; rr5 - Home Meds: 02:40 acetaminophen-codeine 300-60 mg Oral tab [Active]; [place] Thyroid 60 mg Oral tab rr5 [Active]; gabapentin 100 mg Oral cap [Active]; gemfibrozil 600 mg Oral tab 1 tab 2 times per day [Active]; Glucagon Emergency Kit (human) 1 mg IM kit 1 mL [Active]; levetiracetam 500 mg Oral tab 1 tab 2 times per day [Active]; Novolog Sub-Q [Active]; - PMHx: 02:40 Diabetes - IDDM; High Cholesterol; Hypothyroidism; neuropathy; Seizures; rr5 - Immunization history:: Adult Immunizations unknown. - Social history:: Smoking status: unknown. - Ebola Screening: : Unable to complete screening because. - History obtained from: EMS. - Unable to obtain history due to: altered mental status. ROS: 03:34 Unable to obtain ROS due to altered mental status, patient being uncooperative. rn Exam: 03:34 Constitutional: Thin male, spont opens eyes, but uncooperative otherwise Head/Face: rn Normocephalic, atraumatic. Eyes: Pupils equal round and reactive to light, extra-ocular motions intact. Lids and lashes normal. Conjunctiva and sclera are non-icteric and not injected. Cornea within normal limits. Periorbital areas with no swelling, redness, or edema. No nystagmus. ENT: dry MM, no oral lacerations or trauma Neck: Trachea midline, no thyromegaly or masses palpated, and no cervical lymphadenopathy. Supple, full range of motion without nuchal rigidity, or vertebral point tenderness. No Meningismus. Cardiovascular: Tachycardic, regular Respiratory: Lungs have equal breath sounds bilaterally, clear to auscultation and percussion. No rales, rhonchi or wheezes noted. No increased work of breathing, no retractions or nasal flaring. Abdomen/GI: soft, non-tender Skin: Warm, dry MS/ Extremity: Pulses equal, no cyanosis. Neurovascular intact. Full, normal range of motion. Equal circumference. Neuro: Opens eyes spont, does not follow commands or cooperate, no seizure activity. Vital Signs: 02:40 BP 134 / 79; Pulse 105; Resp 15; Temp 97.8; Pulse Ox 99% ; Weight 68.04 kg; Height 5 rr5 ft. 9 in. (175.26 cm); 03:47 BP 124 / 80; Pulse 91; Resp 16; Pulse Ox 99% on 2 lpm NC; rr5 04:08 BP 126 / 84; Pulse 114; Resp 19; Pulse Ox 99% on R/A; lp1 04:16 BP 125 / 80; Pulse 99; Resp 17; Pulse Ox 100% ; rr5 02:40 Body Mass Index 22.15 (68.04 kg, 175.26 cm) rr5 Amasa Coma Score: 02:40 Eye Response: spontaneous(4). Verbal Response: oriented(5). Motor Response: obeys rr5 commands(6). Total: 15. 04:16 Eye Response: spontaneous(4). Verbal Response: oriented(5). Motor Response: obeys rr5 commands(6). Total: 15. MDM: 02:31 Patient medically screened. rn 04:11 Differential diagnosis: Ingestion/exposure to cocaine, methamphetamines. Data reviewed: rn vital signs, nurses notes, lab test result(s), EKG. Counseling: I had a detailed discussion with the patient and/or guardian regarding: the historical points, exam findings, and any diagnostic results supporting the discharge/admit diagnosis, lab results. Refusal of service: The patient/guardian displays adequate decision making capability and despite a detailed discussion of alternatives, benefits, risks, and consequences refuses: CT Scan. ED course: Pt much more alert, refuses further tests and CT head, refuses any further care, demands to be discharged, sitting up and arguing with person in room, who states is going to take him home. + hx of seizures and possible seizure today, possibly drug induced. Signed out AMA given incomplete w/u.. 04:13 ED course: Patient stormed out of ER without assistance or difficulty.. rn 05/05 02:38 Order name: Acetaminophen; Complete Time: 03:42 05/05 02:38 Order name: Basic Metabolic Panel; Complete Time: 03:42 05/05 02:38 Order name: CBC with Diff; Complete Time: 03:42 05/05 02:38 Order name: ETOH Level; Complete Time: 03:42 05/05 02:38 Order name: Hepatic Function; Complete Time: 03:42 05/05 02:38 Order name: PT-INR; Complete Time: 03:42 05/05 02:38 Order name: Ptt, Activated; Complete Time: 03:42 05/05 02:38 Order name: Salicylate; Complete Time: 03:42 05/05 02:38 Order name: Urine Drug Screen; Complete Time: 03:42 05/05 02:38 Order name: EKG; Complete Time: 02:39 05/05 02:38 Order name: Troponin (emerg Dept Use Only); Complete Time: 03:42 05/05 02:59 Order name: Urine Dipstick--Ancillary (enter results); Complete Time: 04:11 4 05/05 02:38 Order name: EKG - Nurse/Tech; Complete Time: 02:42 05/05 02:38 Order name: IV Saline Lock; Complete Time: 02:42 05/05 02:38 Order name: Labs collected and sent; Complete Time: 02:42 05/05 02:38 Order name: Urine Dipstick-Ancillary (obtain specimen); Complete Time: 02:55 rn Administered Medications: 02:50 Drug: NS 0.9% 1000 ml Route: IV; Rate: 1000 ml; Site: left antecubital; rr5 03:48 Follow up: Response: No adverse reaction; IV Status: Completed infusion; IV Intake: rr5 1000ml Disposition: 12/29/19 04:13 Patient has left against medical advice. Impression: Cocaine abuse with intoxication, Adverse effect of amphetamines, Epilepsy and recurrent seizures. - Patients states they are going to Home. - Condition is Stable. - Discharge Instructions: Seizure, Adult, Stimulant Use Disorder-Methamphetamines. Follow up: Private Physician; When: As needed; Reason: Recheck today's complaints, Re-evaluation by your physician. - Problem is new. - Symptoms are resolved. Signatures: Dispatcher [employer] EDMS Frankie Wick MD MD rn Roque, Raymond, RN RN rr5 Corrections: (The following items were deleted from the chart) 04:17 04:13 05/05/2019 04:13 Patients has left against medical advice. Impression: Cocaine rr5 abuse with intoxication; Adverse effect of amphetamines; Epilepsy and recurrent seizures. Patient states they are going to Home. Condition is Stable. Follow up: Private Physician; When: As needed; Reason: Recheck today's complaints, Re-evaluation by your physician. Problem is new. Symptoms are resolved. rn
[2019-05-05 04:22] VITALS: TEMP 97.8
[2019-05-05 04:25] VITALS: BP 125/80; O2SAT 100
--- NOTE | 2019-05-05 11:44 | EKG ---
Test Date: 2019-05-05 Test Time: 02:39:52 Machine Zipper Trimmer: NATALIE MEASUREMENT RESULTS: Intervals: Rate: 99 AR: 150 QRSD: 86 QT: 380 QTc: 487 [place]: P: 58 AR: 150 QRS: 61 T: 63 INTERPRETIVE STATEMENTS: Normal sinus rhythm Prolonged QT Abnormal ECG Compared to ECG 02/15/2019 17:10:11 Prolonged QT interval now present Electronically Signed On 05-05-19 11:41:57 FILLER BLOCK INSERTER REMOVER by Familia Pickett
== END 2019-05-05 04:17 | disposition left against medical advice (07) ==
LOC: ER 02:28
DX: F14.129 Cocaine abuse with intoxication, unspecified (principal); G40.802 Other epilepsy, not intractable, without status epilepticus; T43.625A Adverse effect of amphetamines, initial encounter; E11.9 Type 2 diabetes mellitus without complications; E03.9 Hypothyroidism, unspecified; E78.00 Pure hypercholesterolemia, unspecified; Z79.4 Long term (current) use of insulin; Z88.5 Allergy status to narcotic agent
CPT/HCPCS: 36415; 80048; 80076; 80307; 80320; 80329; 81003; 84484; 85025; 85610; 85730; 93005; 96360; 99284; J7030

== ENCOUNTER 2019-07-11 11:25 | Emergency (ER) | payer SELFPAY ==
--- OUTSIDE RECORDS SUMMARY | 2019-07-11 11:29 | XMS REPORT ---
:1975 [facility] [address] [address] [place] [address] [place] [id number] Care Team Providers Name Role Phone MARIA [...] Value Reference Range Comments CULTURE (BEAKER) (test txcq=8772) No growth in 5 days URINE [id number] 10:25:00 Test Item Value Reference Range Comments CULTURE (BEAKER) (test bgsm=9382) No growth POCT-GLUCOSE [id number] 17:10:00 Test Item Value Reference Range Comments POC-GLUCOSE METER (BEAKER) 232 mg/dL 70-110 TESTED AT [address] (test wooh=6304) [facility] [address] [address], CTANGIO [id number] 16:41:00CTV pleaseFINAL REPORT CTV brain 02/13/2018 4:35 [...] mass effect.2. Unremarkable intracranial CTV.3. Sinusitis. Signed: Balise Pizarro Verified Date/Time: 02/13/2018 16:41:24 Reading Location: [facility] Radiology Reading Room Electronically signed by: BLAISE PIZARRO M.D. on 04:41 PMPOCT-GLUCOSE [id number] 13:07:00 Test Item Value Reference Range Comments POC-GLUCOSE METER (BEAKER) 311 mg/dL 70-110 Notified MELANIE MUÑOZ/TESTED AT [facility] (test mnng=1337) [address] [facility] [address] IRON, TIBC, % SAT. (WITHOUT FERRITIN)2018-02-13 10:10:00 Test Item Value Reference Range Comments IRON (BEAKER) (test mxvk=663) 49 ug/dL 40-160 TOTAL IRON BINDING CAPACITY (BEAKER) (test 231 ug/dL 250-450 rrih=604) IRON % SATURATION (2) (BEAKER) (test useg=0002) 21 % 20-55 POCT-GLUCOSE [id number] 08:50:00 Test Item Value Reference Range Comments POC-GLUCOSE METER (BEAKER) 348 mg/dL 70-110 Notified MELANIE MUÑOZ/TESTED AT [facility] (test ilmw=9148) [address] [facility] [address] BASIC METABOLIC [id number] 08:31:00 Test Item Value Reference Range Comments SODIUM (BEAKER) (test 134 meq/L 136-145 ioxi=167) POTASSIUM (BEAKER) (test 5.4 meq/L 3.5-5.1 Specimen slightly uvkp=708) hemolyzed CHLORIDE (BEAKER) (test 101 meq/L 98-107 mgff=334) CO2 (BEAKER) (test 26 meq/L 22-29 pgsr=388) BLOOD UREA NITROGEN 9 mg/dL 7-21 (BEAKER) (test sojv=430) CREATININE (BEAKER) (test 1.01 mg/dL 0.57-1.25 Specimen slightly ogvy=909) hemolyzed GLUCOSE RANDOM (BEAKER) 347 mg/dL 70-105 (test cucb=016) CALCIUM (BEAKER) (test 8.9 mg/dL 8.4-10.2 peqp=857) EGFR (BEAKER) (test 80 mL/min/1.73 sq m ESTIMATED GFR IS NOT qawb=1736) ACCURATE CREATININE CLEARANCE IN PREDICTING GLOMERULAR FILTRATION RATE. ESTIMATED GFR IS NOT APPLICABLE FOR DIALYSIS PATIENTS. LIPID [id number] 08:31:00 Test Item Value Reference Range Comments TRIGLYCERIDES (BEAKER) (test 189 mg/dL Specimen slightly hemolyzed kwaa=875) CHOLESTEROL (BEAKER) (test 265 mg/dL Specimen slightly hemolyzed tvjh=040) HDL CHOLESTEROL (BEAKER) (test 46 mg/dL pnea=435) LDL CHOLESTEROL CALCULATED 181 mg/dL (BEAKER) (test wufn=180) Triglyceride Reference Range: Low Risk <150 Borderline 150- 199 High Risk 200-499 Very High Risk >=500Cholesterol Reference Range: Low Risk <200 Borderline 200-239 High Risk > 240HDL Cholesterol Reference Range: Low Risk >=60 High Risk <40LDL Cholesterol Reference Range: Optimal <100 Near Optimal 100-129 Borderline 130-159 High 160-189 Very High >=190IMMATURE RETICULOCYTE [id number] 08:16:00 Test Item Value Reference Range Comments IMMATURE RETIC FRACTION (BEAKER) (test okir=8647) 8.600 % 2.300-13.400 RETICULOCYTE COUNT PCT (BEAKER) (test hiej=836) 1.4 % 0.5-1.8 CBC W/PLT COUNT & AUTO [id number] 08:16:00 Test Item Value Reference Range Comments WHITE BLOOD CELL COUNT (BEAKER) (test tvpn=341) 8.5 K/ L 3.5-10.5 RED BLOOD CELL COUNT (BEAKER) (test mbxi=499) 4.49 M/ L 4.63-6.08 HEMOGLOBIN (BEAKER) (test dtmf=080) 14.5 GM/DL 13.7-17.5 HEMATOCRIT (BEAKER) (test oggd=586) 44.1 % 40.1-51.0 MEAN CORPUSCULAR VOLUME (BEAKER) (test hvvx=640) 98.2 fL 79.0-92.2 MEAN CORPUSCULAR HEMOGLOBIN (BEAKER) (test 32.3 pg 25.7-32.2 nvid=362) MEAN CORPUSCULAR HEMOGLOBIN CONC (BEAKER) (test 32.9 GM/DL 32.3-36.5 pfef=079) RED CELL DISTRIBUTION WIDTH (BEAKER) (test 12.8 % 11.6-14.4 flqi=266) PLATELET COUNT (BEAKER) (test rovp=543) 365 K/CU MM 150-450 MEAN PLATELET VOLUME (BEAKER) (test skrv=665) 10.3 fL 9.4-12.4 NUCLEATED RED BLOOD CELLS (BEAKER) (test 0 /100 WBC 0-0 uczb=640) NEUTROPHILS RELATIVE PERCENT (BEAKER) (test 59 % mkux=650) LYMPHOCYTES RELATIVE PERCENT (BEAKER) (test 23 % kfxv=863) MONOCYTES RELATIVE PERCENT (BEAKER) (test 8 % bhpe=648) EOSINOPHILS RELATIVE PERCENT (BEAKER) (test 9 % snxn=012) BASOPHILS RELATIVE PERCENT (BEAKER) (test 1 % njtj=704) NEUTROPHILS ABSOLUTE COUNT (BEAKER) (test 5.00 K/ L 1.78-5.38 abmp=339) LYMPHOCYTES ABSOLUTE COUNT (BEAKER) (test 1.94 K/ L 1.32-3.57 tadk=131) MONOCYTES ABSOLUTE COUNT (BEAKER) (test 0.67 K/ L 0.30-0.82 wytp=504) EOSINOPHILS ABSOLUTE COUNT (BEAKER) (test 0.73 K/ L 0.04-0.54 yppn=086) BASOPHILS ABSOLUTE COUNT (BEAKER) (test 0.10 K/ L 0.01-0.08 uozg=014) IMMATURE GRANULOCYTES-RELATIVE PERCENT (BEAKER) 0 % 0-1 (test xsfv=6035) POCT-GLUCOSE [id number] 21:18:00 Test Item Value Reference Range Comments POC-GLUCOSE METER (BEAKER) 226 mg/dL 70-[address] [facility] [address] [facility] (test cffx=8649) [facility] [address] MR, BRAIN, WITHOUT [id number] 19:43:00FINAL REPORT MRI brain without contrast INDICATION: [...] thrombus cannot be excluded. The major proximal [place] of [place] flow voids are maintained. Mild [...] Gregory Verified Date/Time: 02/12/2018 19:43:32 Reading Location: [facility] Radiology Reading Room POCT-GLUCOSE [id number] 19:01:00 Test Item Value Reference Range Comments POC-GLUCOSE METER (BEAKER) 362 mg/dL 70-110 TESTED AT [address] (test ztzu=4480) [facility] [address] EEG AWAKE AND [id number] 17:46:00Reason for exam:->SeizureShould this be performed at the bedside?->YesCHI [facility] EEG REPORTDATE OF TEST : [id number] OF REPORT: [id number]: [id number]: [id number] time: 14: 04Stop time: 14:24ICD-10: R56.9CPT Code: 39755KZMTUYZ: 40 y old 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, [...] this report.Queenie Paiz MD, PhDClinical Neurophysiology/Epilepsy AttendingCHI Specialty [facility] 05: 46 PMPOCT-GLUCOSE [id number] 15:33:00 Test Item Value Reference Range Comments POC-GLUCOSE METER (BEAKER) 213 mg/dL 70-[address] [facility] [address] [facility] (test fuhe=0910) [facility] [address] TSH/FREE T4 IF [id number] 09:35:00 Test Item Value Reference Range Comments THYROID STIMULATING HORMONE (BEAKER) (test 4.03 uIU/mL 0.35-4.94 mxof=301) HEMOGLOBIN [id number] 08:47:00 Test Item Value Reference Range Comments HEMOGLOBIN A1C (BEAKER) (test tung=854) 6.5 % 4.3-6.1 POCT-GLUCOSE [id number] 07:55:00 Test Item Value Reference Range Comments POC-GLUCOSE METER (BEAKER) 219 mg/dL 70-[address] [facility] [address] (test eimd=4167) [facility] [address] [id number] 05:00:00 Test Item Value Reference Range Comments MAGNESIUM (BEAKER) (test iqqo=383) 2.1 mg/dL 1.6-2.6 BASIC METABOLIC [id number] 05:00:00 Test Item Value Reference Range Comments SODIUM (BEAKER) (test 139 meq/L 136-145 smbb=740) POTASSIUM (BEAKER) (test 4.1 meq/L 3.5-5.1 wrfe=269) CHLORIDE (BEAKER) (test 109 meq/L 98-107 yjux=282) CO2 (BEAKER) (test 25 meq/L 22-29 ipke=403) BLOOD UREA NITROGEN 7 mg/dL 7-21 (BEAKER) (test mnpw=783) CREATININE (BEAKER) (test 0.81 mg/dL 0.57-1.25 yqrb=288) GLUCOSE RANDOM (BEAKER) 167 mg/dL 70-105 (test wnqb=702) CALCIUM (BEAKER) (test 9.0 mg/dL 8.4-10.2 vese=796) EGFR (BEAKER) (test 104 mL/min/1.73 sq m ESTIMATED GFR IS NOT shqm=1481) ACCURATE CREATININE CLEARANCE IN PREDICTING GLOMERULAR FILTRATION RATE. ESTIMATED GFR IS NOT APPLICABLE FOR DIALYSIS PATIENTS. CBC W/PLT COUNT & AUTO [id number] 04:40:00 Test Item Value Reference Range Comments WHITE BLOOD CELL COUNT (BEAKER) (test ddpv=463) 11.3 K/ L 3.5-10.5 RED BLOOD CELL COUNT (BEAKER) (test tvff=156) 4.09 M/ L 4.63-6.08 HEMOGLOBIN (BEAKER) (test ofmh=519) 13.1 GM/DL 13.7-17.5 HEMATOCRIT (BEAKER) (test eghi=545) 39.8 % 40.1-51.0 MEAN CORPUSCULAR VOLUME (BEAKER) (test iqvu=714) 97.3 fL 79.0-92.2 MEAN CORPUSCULAR HEMOGLOBIN (BEAKER) (test 32.0 pg 25.7-32.2 twtn=278) MEAN CORPUSCULAR HEMOGLOBIN CONC (BEAKER) (test 32.9 GM/DL 32.3-36.5 xizs=311) RED CELL DISTRIBUTION WIDTH (BEAKER) (test 12.8 % 11.6-14.4 vjwu=312) PLATELET COUNT (BEAKER) (test ritd=784) 344 K/CU MM 150-450 MEAN PLATELET VOLUME (BEAKER) (test fikp=742) 9.5 fL 9.4-12.4 NUCLEATED RED BLOOD CELLS (BEAKER) (test 0 /100 WBC 0-0 lmjs=181) NEUTROPHILS RELATIVE PERCENT (BEAKER) (test 61 % wlrv=515) LYMPHOCYTES RELATIVE PERCENT (BEAKER) (test 24 % dixb=561) MONOCYTES RELATIVE PERCENT (BEAKER) (test 8 % fsnc=684) EOSINOPHILS RELATIVE PERCENT (BEAKER) (test 7 % qmgm=507) BASOPHILS RELATIVE PERCENT (BEAKER) (test 1 % hgdp=698) NEUTROPHILS ABSOLUTE COUNT (BEAKER) (test 6.86 K/ L 1.78-5.38 ruda=315) LYMPHOCYTES ABSOLUTE COUNT (BEAKER) (test 2.67 K/ L 1.32-3.57 oddx=149) MONOCYTES ABSOLUTE COUNT (BEAKER) (test 0.85 K/ L 0.30-0.82 eyyp=501) EOSINOPHILS ABSOLUTE COUNT (BEAKER) (test 0.79 K/ L 0.04-0.54 kiep=101) BASOPHILS ABSOLUTE COUNT (BEAKER) (test 0.07 K/ L 0.01-0.08 lfyu=034) IMMATURE GRANULOCYTES-RELATIVE PERCENT (BEAKER) 0 % 0-1 (test rvcr=6116) POCT-GLUCOSE [id number] 04:31:00 Test Item Value Reference Range Comments POC-GLUCOSE METER (BEAKER) 183 mg/dL 70-[address] [facility] [address] [facility] (test zizi=3468) [facility] [address] RAD, ABDOMEN/KUB, 1 VIEW [id number] 01:33:00Reason for exam:->Abdominal distension, obtundationFINAL REPORT CLINICAL [...] Verified Date/ Time: 02/12/2018 01:33:19 Reading Location: [address] Transitional Reading Room POCT-GLUCOSE [id number] 00:49:00 Test Item Value Reference Range Comments POC-GLUCOSE METER (BEAKER) 346 mg/dL 70-[address] [facility] [address] [facility] (test jigh=9070) [facility] [address] CBC W/PLT COUNT & AUTO [id number] 00:44:00 Test Item Value Reference Range Comments WHITE BLOOD CELL COUNT (BEAKER) (test kopo=620) 14.3 K/ L 3.5-10.5 RED BLOOD CELL COUNT (BEAKER) (test uhdu=237) 4.26 M/ L 4.63-6.08 HEMOGLOBIN (BEAKER) (test cuac=596) 13.8 GM/DL 13.7-17.5 HEMATOCRIT (BEAKER) (test jqks=835) 42.1 % 40.1-51.0 MEAN CORPUSCULAR VOLUME (BEAKER) (test rinr=188) 98.8 fL 79.0-92.2 MEAN CORPUSCULAR HEMOGLOBIN (BEAKER) (test 32.4 pg 25.7-32.2 udqc=803) MEAN CORPUSCULAR HEMOGLOBIN CONC (BEAKER) (test 32.8 GM/DL 32.3-36.5 szxi=416) RED CELL DISTRIBUTION WIDTH (BEAKER) (test 12.9 % 11.6-14.4 lnqp=815) PLATELET COUNT (BEAKER) (test kxps=801) 366 K/CU MM 150-450 MEAN PLATELET VOLUME (BEAKER) (test bnvr=725) 9.8 fL 9.4-12.4 NUCLEATED RED BLOOD CELLS (BEAKER) (test 0 /100 WBC 0-0 lbou=447) NEUTROPHILS RELATIVE PERCENT (BEAKER) (test 74 % nqgp=049) LYMPHOCYTES RELATIVE PERCENT (BEAKER) (test 13 % cqss=734) MONOCYTES RELATIVE PERCENT (BEAKER) (test 7 % zbvg=393) EOSINOPHILS RELATIVE PERCENT (BEAKER) (test 5 % tope=398) BASOPHILS RELATIVE PERCENT (BEAKER) (test 1 % qaec=838) NEUTROPHILS ABSOLUTE COUNT (BEAKER) (test 10.60 K/ L 1.78-5.38 lhtb=779) LYMPHOCYTES ABSOLUTE COUNT (BEAKER) (test 1.80 K/ L 1.32-3.57 mgtg=810) MONOCYTES ABSOLUTE COUNT (BEAKER) (test 1.06 K/ L 0.30-0.82 bvjy=391) EOSINOPHILS ABSOLUTE COUNT (BEAKER) (test 0.69 K/ L 0.04-0.54 gaiu=354) BASOPHILS ABSOLUTE COUNT (BEAKER) (test 0.09 K/ L 0.01-0.08 wkft=370) IMMATURE GRANULOCYTES-RELATIVE PERCENT (BEAKER) 0 % 0-1 (test xfbj=8088) RAPID DRUG SCREEN, [id number] 00:35:00 Test Item Value Reference Range Comments BARBITURATE URINE (BEAKER) (test wwkx=833) Negative Negative BENZODIAZEPINE SCREEN URINE (BEAKER) (test Negative Negative lxnj=777) COCAINE (METAB.) SCREEN (BEAKER) (test gtqz=3971) Negative Negative METHADONE SCREEN (BEAKER) (test yzvu=0098) Negative Negative OPIATE SCREEN URINE (BEAKER) (test vkih=608) Negative Negative CANNABINOID SCREEN URINE (BEAKER) (test zbri=127) Negative Negative AMPH/METHAMPH SCREEN (BEAKER) (test wror=5578) Negative Negative PHENCYCLIDINE SCREEN URINE (BEAKER) (test cldt=624) Negative Negative OXYCODONE SCREEN URINE (BEAKER) (test ewvo=1646) Negative Negative DRUG CUTOFF CONC.Cocaine 300 ng/mL Cannabinoid 50 ng/mL Benzodiazepine 200 ng/mLBarbiturate 200 ng/ mLPhencyclidine 25 ng/mLOpiate 300 ng/mLMethadone 300 ng/mLAmphetamine/ 1000 ng/mL MethamphetamineOxycodone 300 ng/mLThis assay provides an unconfirmed qualitative test result for the clinical management of patients in emergency situations. Chain of custody not maintained. Some tmcp-iqj-syaawrf medications, as well as adulterants, may cause inaccurate results. Clinical correlation should be applied. A more comprehensive drug screen or confirmation of a detected drug may be performed upon request.TROPONIN [id number] 00:15:00 Test Item Value Reference Range Comments TROPONIN I (BEAKER) (test qnnr=821) < ng/mL 0.00-0.03 Troponin I (TnI) levels [...] acute neurological disease, and persistent tachyarrhythmia.COMPREHENSIVE METABOLIC [id number] 00:09:00 Test Item Value Reference Range Comments TOTAL PROTEIN (BEAKER) 6.9 gm/dL 6.0-8.3 (test fxyj=869) ALBUMIN (BEAKER) (test 3.8 g/dL 3.5-5.0 wywu=4452) ALKALINE PHOSPHATASE 95 U/L 40-150 (BEAKER) (test iobn=406) BILIRUBIN TOTAL (BEAKER) 0.6 mg/dL 0.2-1.2 (test cbka=027) SODIUM (BEAKER) (test 135 meq/L 136-145 iiqq=790) POTASSIUM (BEAKER) (test 5.0 meq/L 3.5-5.1 yiec=349) CHLORIDE (BEAKER) (test 104 meq/L 98-107 ktsw=698) CO2 (BEAKER) (test 25 meq/L 22-29 mnea=851) BLOOD UREA NITROGEN 8 mg/dL 7-21 (BEAKER) (test tnrg=167) CREATININE (BEAKER) (test 1.03 mg/dL 0.57-1.25 fqeg=253) GLUCOSE RANDOM (BEAKER) 292 mg/dL 70-105 (test xhzb=876) CALCIUM (BEAKER) (test 9.2 mg/dL 8.4-10.2 xaoj=352) AST (SGOT) (BEAKER) (test 23 U/L 5-34 tbqf=529) ALT (SGPT) (BEAKER) (test 17 U/L 6-55 dwdu=881) EGFR (BEAKER) (test 78 mL/min/1.73 sq m ESTIMATED GFR IS NOT hlwe=9413) ACCURATE CREATININE CLEARANCE IN PREDICTING GLOMERULAR FILTRATION RATE. ESTIMATED GFR IS NOT APPLICABLE FOR DIALYSIS PATIENTS. URINALYSIS W/ [id number] 00:06:00 Test Item Value Reference Range Comments COLOR (BEAKER) (test gmlb=511) Light Yellow CLARITY (BEAKER) (test krly=711) Clear SPECIFIC GRAVITY UA (BEAKER) (test wfbs=419) 1.007 1.001-1.035 PH UA (BEAKER) (test rces=461) 6.5 5.0-8.0 PROTEIN UA (BEAKER) (test rvlo=967) Negative Negative GLUCOSE UA (BEAKER) (test qnmu=946) 500 mg/dL Negative KETONES UA (BEAKER) (test llow=593) Negative Negative BILIRUBIN UA (BEAKER) (test jdko=361) Negative Negative BLOOD UA (BEAKER) (test osxt=234) Negative Negative NITRITE UA (BEAKER) (test cbvw=503) Negative Negative LEUKOCYTE ESTERASE UA (BEAKER) (test eozm=760) Negative Negative UROBILINOGEN UA (BEAKER) (test tspw=039) 0.2 mg/dL 0.2-1.0 RBC UA (BEAKER) (test nrns=813) < /HPF WBC UA (BEAKER) (test fspl=522) 1 /HPF MUCUS (BEAKER) (test kyui=4093) Rare SOURCE(BEAKER) (test pofb=2350) RAD, CHEST, 1 VIEW, NON [id number] 23:11:00Reason for exam:->Obtundation with coarse respirations, baselineShould this be performed at the bedside?-> YesFINAL REPORT RAD, CHEST, 1 VIEW, NON DEPT INDICATION: Obtundation with coarserespirations, baseline COMPARISON: None. FINDINGS: Portable frontal view of the chest. IMPRESSION: Support Lines: None. Lungs and pleura: Clear lungs. No pneumothorax.Heart and mediastinum: Unremarkable. Additional findings: Fluid and gaseous distention of the gastric lumen. Signed: JR Lozano [facility] Verified Date/Time: 02/11/2018 23:11:04 Reading Location: [address]
[2019-07-11 12:08] LABS: Basophils % 0.7 % (0-1.3); Hematocrit 44.4 % (39.6-49.0); Lymphocytes % 28.4 % (15.3-44.8); MPV 7.8 fL (7.6-11.3); RBC Red Blood Cell Count 4.71 M/uL (4.33-5.43)
[2019-07-11 12:25] LABS: BUN Blood Urea Nitrogen 7 mg/dL (7-18); Bicarbonate 26 mmol/L (21-32); Glucose Level 336 mg/dL (74-106); Potassium 4.4 mmol/L (3.5-5.1); Sodium Level 137 mmol/L (136-145)
[2019-07-11] MEDS ORDERED: NA CHLORIDE 0.9% 1,000 ML ONE (12:26)
[2019-07-11] MEDS ORDERED: INSULIN -REGULAR HUMAN 50 UNIT/0.5 ML ML ONE (12:43)
[2019-07-11 13:00] LABS: Urine Blood TRACE (NEG); Urine Glucose 2+ (NEG); Urine Protein 1+ (NEG)
--- NOTE | 2019-07-11 13:34 | ER ---
Nurse's Notes [facility] Name: Surjit Stubbs Age: 44 yrs Sex: Male : 1975 Arrival Date: 07/11/2019 Time: 11:26 Bed 15 Private MD: Diagnosis: Hyperglycemia, unspecified Presentation: 07/10 11:30 Chief complaint: EMS states: PT at [facility] c/o high blood sugar, history of IDDM taking ca1 Novolog and Levemir. Reports increased thirst and urination. BGL 346. Coronavirus screen: The patient has NOT traveled to a country currently being monitored by the CDC within the last 14 days. The patient has NOT had contact with any known and/or suspected case of coronavirus. Ebola Screen: Patient negative for fever greater than or equal to 101.5 degrees Fahrenheit, and additional compatible Ebola Virus Disease symptoms Patient denies exposure to infectious person. Patient denies travel to an Ebola-affected area in the 21 days before illness onset. No symptoms or risks identified at this time. Initial Sepsis Screen: Does the patient meet any 2 criteria? No. Patient's initial sepsis screen is negative. Does the patient have a suspected source of infection? No. Patient's initial sepsis screen is negative. Risk Assessment: Do you want to hurt yourself or someone else? Patient reports no desire to harm self or others. Onset of symptoms was July 11, 2019. Care prior to arrival: Medication(s) given: Normal saline infusion, 300ml IV initiated. 20 GA, in the left forearm. 11:30 Method Of Arrival: EMS: [facility] ca1 11:30 Acuity: TOI 3 ca1 Triage Assessment: 11:59 General: Appears in no apparent distress. comfortable, Behavior is calm, cooperative, ca1 appropriate for age. Pain: Complains of pain in right arm. EENT: No signs and/or symptoms were reported regarding the EENT system. Neuro: Level of Consciousness is awake, alert, obeys commands, Oriented to person, place, time, situation, Appropriate for age. Cardiovascular: Heart tones S1 S2 present Capillary refill < 3 seconds Patient's skin is warm and dry. Rhythm is sinus rhythm. Respiratory: Airway is patent Respiratory effort is even, unlabored, Respiratory pattern is regular, symmetrical, Breath sounds are clear bilaterally. GI: Abdomen is flat, non-distended, Bowel sounds present X 4 quads. Abd is soft and non tender X 4 quads. : No signs and/or symptoms were reported regarding the genitourinary system. Derm: Skin is intact, is healthy with good turgor, Skin is pink, warm \T\ dry. Musculoskeletal: Circulation, motion, and sensation intact. Capillary refill < 3 seconds. Historical: - Allergies: 11:59 tramadol; ca1 - Home Meds: :59 Novolog Sub-Q [Active]; Levemir subcutaneous subcutaneous [Active]; ca1 - PMHx: 11:59 Diabetes - IDDM; High Cholesterol; Hypothyroidism; neuropathy; Seizures; ca1 - PSHx: :59 None; ca1 - Immunization history:: Adult Immunizations up to date, Flu vaccine is not up to date. - Social history:: Smoking status: Patient reports the use of cigarette tobacco products, smokes one pack cigarettes per day. Screenin:35 Abuse screen: Denies threats or abuse. Denies injuries from another. Nutritional ca1 screening: No deficits noted. Tuberculosis screening: No symptoms or risk factors identified. Fall Risk None identified. Assessment: 11:35 Reassessment: See Triage assessment. [employer] at bedside. ca1 12:28 Reassessment: Patient appears in no apparent distress at this time. No changes from ca1 previously documented assessment. Patient and/or family updated on plan of care and expected duration. Pain level reassessed. Patient is alert, oriented x 3, equal unlabored respirations, skin warm/dry/pink. 12:45 Derm: Bruising that is dark purple, on dorsal aspect of right forearm. ca1 13:13 Reassessment: Patient appears in no apparent distress at this time. Patient and/or ca1 family updated on plan of care and expected duration. Pain level reassessed. Patient is alert, oriented x 3, equal unlabored respirations, skin warm/dry/pink. BGL 302 rpt. Vital Signs: 11:30 BP 150 / 103; Pulse 95; Resp 17 S; Temp 97.2(TE); Pulse Ox 100% on R/A; Weight 72.57 kg ca1 (R); Height 5 ft. 9 in. (175.26 cm) (R); Pain 4/10; 12:28 BP 155 / 104; Pulse 97; Resp 17 S; Pulse Ox 99% on R/A; ca1 13:30 BP 146 / 104; Pulse 89; Resp 15 S; Pulse Ox 99% on R/A; ca1 11:30 Body Mass Index 23.63 (72.57 kg, 175.26 cm) ca1 ED Course: 11:26 Patient arrived in ED. ca1 11:30 Kaylee Acosta FNP-C is [facility]. kb 11:30 Reno Lazaro MD is Attending Physician. kb 11:30 Arm band placed on right wrist. ca1 11:32 Jhoana Lemos, RN is Primary Nurse. ca1 11:35 Patient has correct armband on for positive identification. Bed in low position. Call ca1 light in reach. Side rails up X2. cafeteria monitor on. Pulse ox on. NIBP on. Warm blanket given. 11:35 No provider procedures requiring assistance completed. Maintain EMS IV. Dressing ca1 intact. Good blood return noted. Site clean \T\ dry. Gauge \T\ site: g20 LFA. 11:58 Triage completed. ca1 13:44 IV discontinued, intact, bleeding controlled, No redness/swelling at site. Pressure ca1 dressing applied. Administered Medications: 11:35 Drug: NS 0.9% 1000 ml Route: IV; Rate: 1000 ml; Site: left forearm; ca1 12:30 Follow up: Response: No adverse reaction; IV Status: Completed infusion ca1 12:40 Drug: Insulin Regular Human 5 units {Co-Signature: em (Rubens Sanchez RN).} Route: IVP; ca1 Site: left forearm; 13:38 Follow up: Response: No adverse reaction; Blood sugar is lowered ca1 Outcome: 13:32 Discharge ordered by . kb 13:44 Discharged to Law Enforcement ca1 13:44 Condition: stable 13:44 Discharge instructions given to patient, Instructed on discharge instructions, follow up and referral plans. Demonstrated understanding of instructions, follow-up care. 13:46 Patient left the ED. ca1 Signatures: Kaylee Acosta FNP-C FNP-Jhoana Loaiza, MELANIE RN ca1 Rubens Sanchez RN em Corrections: (The following items were deleted from the chart) 12:28 11:30 Chief complaint: EMS states: PT at [facility] c/o high blood sugar, history of IDDM ca1 taking Novolog and Levimir. ca1 13:37 11:30 Chief complaint: EMS states: PT at [facility] c/o high blood sugar, history of IDDM ca1 taking Novolog and Levemir. Reports increased thirst and urination ca1
--- NOTE | 2019-07-11 13:34 | EDPHYS ---
Physician Documentation [facility] Name: Surjit Stubbs Age: 44 yrs Sex: Male : 1975 Arrival Date: 07/11/2019 Time: 11:26 Bed 15 Private MD: ED Physician Reno Lazaro HPI: 07/10 11:52 This 44 yrs old Male presents to ER via Unassigned with complaints of High kb Blood Sugar. 11:52 The patient or guardian reports hyperglycemia, polydipsia, polyuria, that was kb potentially precipitated by Hasn't had any insulin since yesterday due to being in intermediate. Onset: The symptoms/episode began/occurred today. Associated signs and symptoms: Pertinent positives: nausea, polydipsia, polyuria. Current symptoms: In the emergency department the patient's symptoms are unchanged from the initial presentation. The patient has experienced similar episodes in the past. The patient has not recently seen a physician. Pt has diabetes type 1. Last had levemir at 2100 last night. Has been in intermediate and felt like his sugar was high because he had frequent urination and thirst. . Historical: - Allergies: 11:59 tramadol; ca1 - Home Meds: 11:59 Novolog Sub-Q [Active]; Levemir subcutaneous subcutaneous [Active]; ca1 - PMHx: 11:59 Diabetes - IDDM; High Cholesterol; Hypothyroidism; neuropathy; Seizures; ca1 - PSHx: 11:59 None; ca1 - Immunization history:: Adult Immunizations up to date, Flu vaccine is not up to date. - Social history:: Smoking status: Patient reports the use of cigarette tobacco products, smokes one pack cigarettes per day. ROS: 11:51 Constitutional: Negative for fever, chills, and weight loss, ENT: Negative for injury, kb pain, and discharge, Neck: Negative for injury, pain, and swelling, Cardiovascular: Negative for chest pain, palpitations, and edema, Respiratory: Negative for shortness of breath, cough, wheezing, and pleuritic chest pain, Back: Negative for injury and pain, : Negative for injury, bleeding, discharge, and swelling, MS/Extremity: Negative for injury and deformity, Skin: Negative for injury, rash, and discoloration, Neuro: Negative for headache, weakness, numbness, tingling, and seizure. 11:51 Abdomen/GI: Positive for nausea, Negative for abdominal pain, vomiting, diarrhea, constipation. 11:51 Endocrine: Positive for polydipsia, polyuria. Exam: 11:51 Constitutional: This is a well developed, well nourished patient who is awake, alert, kb and in no acute distress. Head/Face: Normocephalic, atraumatic. Neck: Trachea midline, no thyromegaly or masses palpated, and no cervical lymphadenopathy. Supple, full range of motion without nuchal rigidity, or vertebral point tenderness. No Meningismus. Chest/axilla: Normal chest wall appearance and motion. Nontender with no deformity. No lesions are appreciated. Cardiovascular: Regular rate and rhythm with a normal S1 and S2. No gallops, murmurs, or rubs. Normal PMI, no JVD. No pulse deficits. Respiratory: Lungs have equal breath sounds bilaterally, clear to auscultation and percussion. No rales, rhonchi or wheezes noted. No increased work of breathing, no retractions or nasal flaring. Abdomen/GI: Soft, non-tender, with normal bowel sounds. No distension or tympany. No guarding or rebound. No evidence of tenderness throughout. Skin: Warm, dry with normal turgor. Normal color with no rashes, no lesions, and no evidence of cellulitis. MS/ Extremity: Pulses equal, no cyanosis. Neurovascular intact. Full, normal range of motion. Neuro: Awake and alert, GCS 15, oriented to person, place, time, and situation. Cranial nerves II-XII grossly intact. Motor strength 5/5 in all extremities. Sensory grossly intact. Cerebellar exam normal. Normal gait. 12:08 ECG was reviewed by the Attending Physician. kb Vital Signs: 11:30 BP 150 / 103; Pulse 95; Resp 17 S; Temp 97.2(TE); Pulse Ox 100% on R/A; Weight 72.57 kg ca1 (R); Height 5 ft. 9 in. (175.26 cm) (R); Pain 4/10; 12:28 BP 155 / 104; Pulse 97; Resp 17 S; Pulse Ox 99% on R/A; ca1 13:30 BP 146 / 104; Pulse 89; Resp 15 S; Pulse Ox 99% on R/A; ca1 11:30 Body Mass Index 23.63 (72.57 kg, 175.26 cm) ca1 MDM: 11:30 Patient medically screened. kb 11:51 Data reviewed: vital signs, nurses notes. Data interpreted: Pulse oximetry: on room air kb is 100 %. Interpretation: normal. 12:42 Counseling: I had a detailed discussion with the patient and/or guardian regarding: the kb historical points, exam findings, and any diagnostic results supporting the discharge/admit diagnosis, lab results, the need for outpatient follow up, a family practitioner, to return to the emergency department if symptoms worsen or persist or if there are any questions or concerns that arise at home. 07/10 11:31 Order name: CBC with Diff; Complete Time: 12:29 kb 07/10 11:31 Order name: Basic Metabolic Panel; Complete Time: 12:42 kb 07/10 11:31 Order name: Acetone, Serum; Complete Time: 12:42 kb 07/10 12:50 Order name: Urine Dipstick--Ancillary (enter results); Complete Time: 13:03 em1 07/10 13:24 Order name: Glucose, Ancillary Testing; Complete Time: 13:32 EDMS 07/10 11:31 Order name: IV Start; Complete Time: 12:23 kb 07/10 11:31 Order name: Urine Dipstick-Ancillary (obtain specimen); Complete Time: 12:49 kb 07/10 11:31 Order name: EKG; Complete Time: 11:31 kb 07/10 11:31 Order name: EKG - Nurse/Tech; Complete Time: 12:23 kb 07/10 12:42 Order name: Blood Glucose Level; Complete Time: 13:13 kb EC:08 Rate is 93 beats/min. Rhythm is regular. QRS [place] is Normal. IA interval is normal at kb 152 msec. QRS interval is normal at 72 msec. QT interval is normal at 366 msec. Administered Medications: 11:35 Drug: NS 0.9% 1000 ml Route: IV; Rate: 1000 ml; Site: left forearm; ca1 12:30 Follow up: Response: No adverse reaction; IV Status: Completed infusion ca1 12:40 Drug: Insulin Regular Human 5 units {Co-Signature: em (Rubens Sanchez RN).} Route: IVP; ca1 Site: left forearm; 13:38 Follow up: Response: No adverse reaction; Blood sugar is lowered ca1 Disposition: 07/11/19 13:32 Discharged to Home. Impression: Hyperglycemia, unspecified. - Condition is Stable. - Discharge Instructions: Hyperglycemia, [id number]. - Medication Reconciliation Form, Thank You Letter, Antibiotic Education, Prescription Opioid Use form. - Follow up: Emergency Department; When: As needed; Reason: Worsening of condition. Follow up: Private Physician; When: 2 - 3 days; Reason: Recheck today's complaints, Continuance of care, Re-evaluation by your physician. Signatures: Dispatcher [employer] EDKaylee Wick, COMBER FIXER-C COMBER FIXER-Ckb Jhoana Lemos RN RN ca1 Rubens Sanchez RN em Corrections: (The following items were deleted from the chart) 13:45 13:32 07/11/2019 13:32 Discharged to Home. Impression: Hyperglycemia, unspecified. ca1 Condition is Stable. Forms are Medication Reconciliation Form, Thank You Letter, Antibiotic Education, Prescription Opioid Use. Follow up: Emergency Department; When: As needed; Reason: Worsening of condition. Follow up: Private Physician; When: 2 - 3 days; Reason: Recheck today's complaints, Continuance of care, Re-evaluation by your physician. kb
[2019-07-11 13:54] VITALS: TEMP 97.2
[2019-07-11 13:55] VITALS: O2SAT 99
[2019-07-11 13:56] VITALS: BP 146/104
--- NOTE | 2019-07-12 13:47 | EKG ---
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
== END 2019-07-11 13:45 | disposition home or self-care (01) ==
LOC: ER 11:25
DX: E10.65 Type 1 diabetes mellitus with hyperglycemia (principal); F17.210 Nicotine dependence, cigarettes, uncomplicated; Z79.4 Long term (current) use of insulin; Z88.5 Allergy status to narcotic agent
CPT/HCPCS: 36415; 80048; 81003; 82010; 82947; 85025; 93005; 96361; 96374; 99284; J7030

== ENCOUNTER 2019-09-18 10:43 | Emergency (ER) | payer SELFPAY ==
[2019-09-18] MEDS ORDERED: NA CHLORIDE 0.9% 1,000 ML ONE (11:32)
--- OUTSIDE RECORDS SUMMARY | 2019-09-18 11:34 | XMS REPORT | Clinical Summary ---
:1975 [facility] Address [address] [place] [address] Care Team Providers Name Role Phone Unavailable [...] 02/12/2018 Convulsive seizure disorder with status epilepticus Immunizations Name Dates Previously Given Next Due [...] travel history available. Last Filed Vital Signs Not on file Plan of Treatment Not on file Results Not on fileafter 09/17/2018 Advance Directives For more information, please contact:[facility] [employer] [facility] [address] [place] [address] [place] [phone] Code Status Date Activated Date Inactivated Comments Full Code 02/11/2018 10:27 PM 02/13/2018 7:55 PM This code status was determined by: Patient
--- OUTSIDE RECORDS SUMMARY | 2019-09-18 11:34 | XMS REPORT ---
:1975 Author Organization [facility] t Address [address] [place] [address] Dr. Palma [address] [place] [id number] Care Team Providers Name Role Phone LEONID MANRIQUE Attending Clinician Unavailable LEONID MANRIQUE Admitting Clinician Unavailable Problems This patient has no known problems. Allergies, Adverse Reactions, Alerts This patient has no known allergies or adverse reactions. Medications This patient has no known medications. Procedures This patient has no known procedures. Results Test Description Test Time Test Comments Results Result Comments Source BLOOD CULTURE 2018-02-17 06:00:00 Test Item Value Reference Range Interpretation Comme nts CULTURE ([facility]) (test code = 1095) No growth in 5 days URINE [id number] 10:25:00 Test Item Value Reference Range Interpretation Comments CULTURE ([facility]) (test code = 1095) No growth POCT-GLUCOSE [id number] 17:10:00 Test Item Value Reference Range Interpretation Comments POC-GLUCOSE METER 232 mg/dL 70-110 H TESTED AT [facility] 6720 ([facility]) (test code = CESAR R [facility] 1538) [address] CT, CTANGIO [id number] 16:41:00CTV pleaseFINAL REPORT CTV brain 02/13/2018 4:35 [...] intracranial hemorrhage, mass, hydrocephalus, extra-axial collection, or midlineshift. There is rare chronic-appearing microvascular ischemia in the supratentorial white matter. The dural venous sinuses, cortical draining veins, and deep venous drainage pathways are patent. There is paranasal sinus mucosal thickening, with complete opacification of the partially visualized right m axillary sinus. The tympanomastoid cavities are well aerated. The skull is intact. IMPRESSION: 1. No intracranial hemorrhage or mass effect.2. Unremarkable intracranial CTV.3. Sinusitis. Signed: Blaise [place] Verified Date/Time: 02/13/2018 16:41:24 Reading Location: [facility] Radiology Reading Room POCT-GLUCOSE [id number] 13:07:00 Test Item Value Reference Range Interpretation Comments POC-GLUCOSE METER 311 mg/dL 70-110 H Notified R Ivonne MUÑOZ/TESTED [facility] (test code = AT [place] [address]) [place] [address] 0 IRON, TIBC, % SAT. (WITHOUT FERRITIN)2018-02-13 10:10:00 Test Item Value Reference Range Interpretation Comments IRON (BEAKER) (test code = 547) 49 ug/dL 40-160 TOTAL IRON BINDING CAPACITY 231 ug/dL 250-450 L (BEAKER) (test code = 769) IRON % SATURATION (2) (BEAKER) 21 % 20-55 (test code = 2590) POCT-GLUCOSE [id number] 08:50:00 Test Item Value Reference Range Interpretation Comments POC-GLUCOSE METER 348 mg/dL 70-110 H Notified R Ivonne MUÑOZ/TESTED (BEAKER) (test code = AT [place] [address]) [place] [address] 0 BASIC METABOLIC [id number] 08:31:00 Test Item Value Reference Range Interpretation Comments SODIUM (BEAKER) 134 meq/L 136-145 L (test code = 381) POTASSIUM (BEAKER) 5.4 meq/L 3.5-5.1 H Specimen slightly (test code = 379) hemolyzed CHLORIDE (BEAKER) 101 meq/L 98-107 (test code = 382) CO2 (BEAKER) (test 26 meq/L 22-29 code = 355) BLOOD UREA NITROGEN 9 mg/dL 7-21 (BEAKER) (test code = 354) CREATININE (BEAKER) 1.01 mg/dL 0.57-1.25 Specimen slightly (test code = 358) hemolyzed GLUCOSE RANDOM 347 mg/dL 70-105 H (BEAKER) (test code = 652) CALCIUM (BEAKER) 8.9 mg/dL 8.4-10.2 (test code = 697) EGFR (BEAKER) (test 80 mL/min/1.73 ESTIMA NEO GFR IS code = 1092) sq m NOT ACCURATE CREATININE CLEARANCE IN PREDICTING GLOMERULAR FILTRATION RATE . ESTIMATED GFR I S NOT APPLICABLE FOR DIALYSIS PATIEN TS. LIPID [id number] 08:31:00 Test Item Value Reference Range Interpretation Comments TRIGLYCERIDES (BEAKER) 189 mg/dL Speci men slightly (test code = 540) hemolyzed CHOLESTEROL (BEAKER) 265 mg/dL Specime n slightly (test code = 631) hemolyzed HDL CHOLESTEROL (BEAKER) 46 mg/dL (test code = 976) LDL CHOLESTEROL 181 mg/dL CALCULATED (BEAKER) (test code = 633) Triglyceride Reference Range: Low Risk <150 Borderline 150-199 High Risk 200-499 Very High Risk >=500Cholesterol Reference Range: Low Risk <200 Borderline 200-239 High Risk >240HDL Cholesterol Reference Range: Low Risk >=60 High Risk <40LDL Cholesterol Reference Range: Optimal <100 Near Optimal 100-129 Borderline 130-159 High 160-189 Very High >=190IMMATURE RETICULOCYTE [id number] 08:16:00 Test Item Value Reference Range Interpretation Comments IMMATURE RETIC FRACTION (BEAKER) 8.600 % 2.300-13.400 (test code = 1447) RETICULOCYTE COUNT PCT (BEAKER) (test 1.4 % 0.5-1.8 code = 575) CBC W/PLT COUNT & AUTO [id number] 08:16:00 Test Item Value Reference Range Interpretation Comments WHITE BLOOD CELL COUNT (BEAKER) 8.5 K/ L 3.5-10.5 (test code = 775) RED BLOOD CELL COUNT (BEAKER) 4.49 M/ L 4.63-6.08 L (test code = 761) HEMOGLOBIN (BEAKER) (test code = 14.5 GM/DL 13.7-17.5 410) HEMATOCRIT (BEAKER) (test code = 44.1 % 40.1-51.0 411) MEAN CORPUSCULAR VOLUME (BEAKER) 98.2 fL 79.0-92.2 H (test code = 753) MEAN CORPUSCULAR HEMOGLOBIN 32.3 pg 25.7-32.2 H (BEAKER) (test code = 751) MEAN CORPUSCULAR HEMOGLOBIN CONC 32.9 GM/DL 32.3-36.5 (BEAKER) (test code = 752) RED CELL DISTRIBUTION WIDTH 12.8 % 11.6-14.4 (BEAKER) (test code = 412) PLATELET COUNT (BEAKER) (test 365 K/CU MM 150-450 code = 756) MEAN PLATELET VOLUME (BEAKER) 10.3 fL 9.4-12.4 (test code = 754) NUCLEATED RED BLOOD CELLS 0 /100 WBC 0-0 (BEAKER) (test code = 413) NEUTROPHILS RELATIVE PERCENT 59 % (BEAKER) (test code = 429) LYMPHOCYTES RELATIVE PERCENT 23 % (BEAKER) (test code = 430) MONOCYTES RELATIVE PERCENT 8 % (BEAKER) (test code = 431) EOSINOPHILS RELATIVE PERCENT 9 % (BEAKER) (test code = 432) BASOPHILS RELATIVE PERCENT 1 % (BEAKER) (test code = 437) NEUTROPHILS ABSOLUTE COUNT 5.00 K/ L 1.78-5.38 (BEAKER) (test code = 670) LYMPHOCYTES ABSOLUTE COUNT 1.94 K/ L 1.32-3.57 (BEAKER) (test code = 414) MONOCYTES ABSOLUTE COUNT (BEAKER) 0.67 K/ L 0.30-0.82 (test code = 415) EOSINOPHILS ABSOLUTE COUNT 0.73 K/ L 0.04-0.54 H (BEAKER) (test code = 416) BASOPHILS ABSOLUTE COUNT (BEAKER) 0.10 K/ L 0.01-0.08 H (test code = 417) IMMATURE GRANULOCYTES-RELATIVE 0 % 0-1 PERCENT (BEAKER) (test code = 2801) POCT-GLUCOSE [id number] 21:18:00 Test Item Value Reference Range Interpretation Comments POC-GLUCOSE METER 226 mg/dL 70-110 H TESTED AT [facility] 6720 (BEAKER) (test code = CESAR [place] 1538) [address] MR, BRAIN, WITHOUT [id number] 19:43:00FINAL REPORT MRI brain without contrast INDICATION: [...] thrombus cannot be excluded. The major proximal [place] flow voids are maintained. Mild [...] disease. Consider ENT follow up. Signed: [facility]the [facility] Verified Date/Time: 02/12/2018 19:43:32 Reading Location: [facility] Radiology Reading Room POCT-GLUCOSE [id number] 19:01:00 Test Item Value Reference Range Interpretation Comments POC-GLUCOSE METER 362 mg/dL 70-110 H TESTED AT [facility] 6720 (BEAKER) (test code = CESAR Servin [facility] 1538) [address] EEG AWAKE AND [id number] 17:46:00Reason for exam:->SeizureShould this be performed at the bedside?->YesCH[facility] REPORTDATE OF TEST: 52-9-1861WIEL OF REPORT: [id number]: [id number]: [id number] time: 14:04Stop time: 14:24ICD-10: R56.9CPT Code: 49309VIHQHZX: 40 y old 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, hypothyroidism, hypercholesterolemia presented with witnessed seizures in the setting of altered mental status with suspected overdose.MEDICATIONS: keppraTECHNICAL SUMMARY: This is a digital video EEG recorded with 32 input channels reviewed with bipolar and referential montages using the modified co mbinatorial system nomenclature. DESCRIPTION OF RECORD: During the maximally alert state, 6-7 Hz posterior dominant rhythm, which is reactive but non- sustained. The background consists of generalized 5-7 Hz theta activity with intermixed 1.5-3 Hz delta activity. The background shows spontaneous reacti vity. Drowsiness was characterized by increased frontocentral theta, vertex sharp transients . Stage2 sleep architecture was not recorded. HV: Hyperventilation was not performed.PHOTIC STIMULATION: Photic stimulation was not performed.VIDEO EVENTS RECORDED: noneELECTROCARDIOGRAM EVENTS: noneIMPRESSIO N: Abnormal Awake and drowsy EEG 1. Mild generalized slowing of background rhythm. 2. Slow posterior dominant rhythmCLINICAL CORRELATION: Mild generalized slowing of background rhythm [...] agree with the details of this report.Queenie Loco MD, PhDClinical Neurophysiology/Epilepsy [facility] POCT- GLUCOSE [id number] 15:33:00 Test Item Value Reference Range Interpretation Comments POC-GLUCOSE METER 213 mg/dL 70-110 H TESTED AT [facility] 67 [facility] (test code = [facility]) [address] TSH/FREE T4 IF [id number] 09:35:00 Test Item Value Reference Range Interpretation Comments THYROID STIMULATING HORMONE 4.03 uIU/mL 0.35-4.94 (BEAKER) (test code = 772) HEMOGLOBIN [id number] 08:47:00 Test Item Value Reference Range Interpretation Comments HEMOGLOBIN A1C (BEAKER) (test code = 6.5 % 4.3-6.1 H 368) POCT-GLUCOSE [id number] 07:55:00 Test Item Value Reference Range Interpretation Comments POC-GLUCOSE METER 219 mg/dL 70-110 H TESTED AT [facility] 6720 (BEAKER) (test code = [place] 1538) [address] [id number] 05:00:00 Test Item Value Reference Range Interpretation Comments MAGNESIUM (BEAKER) (test code = 2.1 mg/dL 1.6-2.6 627) BASIC METABOLIC [id number] 05:00:00 Test Item Value Reference Range Interpretation Comments SODIUM (BEAKER) 139 meq/L 136-145 (test code = 381) POTASSIUM (BEAKER) 4.1 meq/L 3.5-5.1 (test code = 379) CHLORIDE (BEAKER) 109 meq/L 98-107 H (test code = 382) CO2 (BEAKER) (test 25 meq/L 22-29 code = 355) BLOOD UREA NITROGEN 7 mg/dL 7-21 (BEAKER) (test code = 354) CREATININE (BEAKER) 0.81 mg/dL 0.57-1.25 (test code = 358) GLUCOSE RANDOM 167 mg/dL 70-105 H (BEAKER) (test code = 652) CALCIUM (BEAKER) 9.0 mg/dL 8.4-10.2 (test code = 697) EGFR (BEAKER) (test 104 mL/min/1.73 ESTIM ATED GFR IS code = 1092) sq m NOT ACCURATE CREATININE CLEARANCE IN PREDICTING GLOMERULAR FILTRATION RATE . ESTIMATED GFR I S NOT APPLICABLE FOR DIALYSIS PATIEN TS. CBC W/PLT COUNT & AUTO [id number] 04:40:00 Test Item Value Reference Range Interpretation Comments WHITE BLOOD CELL COUNT (BEAKER) 11.3 K/ L 3.5-10.5 H (test code = 775) RED BLOOD CELL COUNT (BEAKER) 4.09 M/ L 4.63-6.08 L (test code = 761) HEMOGLOBIN (BEAKER) (test code = 13.1 GM/DL 13.7-17.5 L 410) HEMATOCRIT (BEAKER) (test code = 39.8 % 40.1-51.0 L 411) MEAN CORPUSCULAR VOLUME (BEAKER) 97.3 fL 79.0-92.2 H (test code = 753) MEAN CORPUSCULAR HEMOGLOBIN 32.0 pg 25.7-32.2 (BEAKER) (test code = 751) MEAN CORPUSCULAR HEMOGLOBIN CONC 32.9 GM/DL 32.3-36.5 (BEAKER) (test code = 752) RED CELL DISTRIBUTION WIDTH 12.8 % 11.6-14.4 (BEAKER) (test code = 412) PLATELET COUNT (BEAKER) (test 344 K/CU MM 150-450 code = 756) MEAN PLATELET VOLUME (BEAKER) 9.5 fL 9.4-12.4 (test code = 754) NUCLEATED RED BLOOD CELLS 0 /100 WBC 0-0 (BEAKER) (test code = 413) NEUTROPHILS RELATIVE PERCENT 61 % (BEAKER) (test code = 429) LYMPHOCYTES RELATIVE PERCENT 24 % (BEAKER) (test code = 430) MONOCYTES RELATIVE PERCENT 8 % (BEAKER) (test code = 431) EOSINOPHILS RELATIVE PERCENT 7 % (BEAKER) (test code = 432) BASOPHILS RELATIVE PERCENT 1 % (BEAKER) (test code = 437) NEUTROPHILS ABSOLUTE COUNT 6.86 K/ L 1.78-5.38 H (BEAKER) (test code = 670) LYMPHOCYTES ABSOLUTE COUNT 2.67 K/ L 1.32-3.57 (BEAKER) (test code = 414) MONOCYTES ABSOLUTE COUNT (BEAKER) 0.85 K/ L 0.30-0.82 H (test code = 415) EOSINOPHILS ABSOLUTE COUNT 0.79 K/ L 0.04-0.54 H (BEAKER) (test code = 416) BASOPHILS ABSOLUTE COUNT (BEAKER) 0.07 K/ L 0.01-0.08 (test code = 417) IMMATURE GRANULOCYTES-RELATIVE 0 % 0-1 PERCENT (BEAKER) (test code = 2801) POCT-GLUCOSE [id number] 04:31:00 Test Item Value Reference Range Interpretation Comments POC-GLUCOSE METER 183 mg/dL 70-110 H TESTED AT [place] [address] ([facility]) (test code = CESAR Servin [place] 1538) [address] RAD, ABDOMEN/KUB, 1 VIEW [id number] 01:33:00Reason for exam:->Abdominal distension, obtundationFINAL REPORT CLINICAL [...] calcification in the pelvis. Signed: [facility] Verified Date/Time: 02/12/2018 01:33:19 Reading Location: [address] Transitional Reading Room -GLUCOSE [id number] 00:49:00 Test Item Value Reference Range Interpretation Comments POC-GLUCOSE METER 346 mg/dL 70-110 H TESTED AT [place] [address] ([facility]) (test code = CESAR Servin [facility] 1538) [address] CBC W/PLT COUNT & AUTO [id number] 00:44:00 Test Item Value Reference Range Interpretation Comments WHITE BLOOD CELL COUNT ([facility]) 14.3 K/ L 3.5-10.5 H (test code = 775) RED BLOOD CELL COUNT ([facility]) 4.26 M/ L 4.63-6.08 L (test code = 761) HEMOGLOBIN (BEAKER) (test code = 13.8 GM/DL 13.7-17.5 410) HEMATOCRIT ([facility]) (test code = 42.1 % 40.1-51.0 411) MEAN CORPUSCULAR VOLUME ([facility]) 98.8 fL 79.0-92.2 H (test code = 753) MEAN CORPUSCULAR HEMOGLOBIN 32.4 pg 25.7-32.2 H (BEAKER) (test code = 751) MEAN CORPUSCULAR HEMOGLOBIN CONC 32.8 GM/DL 32.3-36.5 (BEAKER) (test code = 752) RED CELL DISTRIBUTION WIDTH 12.9 % 11.6-14.4 (BEAKER) (test code = 412) PLATELET COUNT (BEAKER) (test 366 K/CU MM 150-450 code = 756) MEAN PLATELET VOLUME (BEAKER) 9.8 fL 9.4-12.4 (test code = 754) NUCLEATED RED BLOOD CELLS 0 /100 WBC 0-0 (BEAKER) (test code = 413) NEUTROPHILS RELATIVE PERCENT 74 % (BEAKER) (test code = 429) LYMPHOCYTES RELATIVE PERCENT 13 % (BEAKER) (test code = 430) MONOCYTES RELATIVE PERCENT 7 % (BEAKER) (test code = 431) EOSINOPHILS RELATIVE PERCENT 5 % (BEAKER) (test code = 432) BASOPHILS RELATIVE PERCENT 1 % (BEAKER) (test code = 437) NEUTROPHILS ABSOLUTE COUNT 10.60 K/ L 1.78-5.38 H (BEAKER) (test code = 670) LYMPHOCYTES ABSOLUTE COUNT 1.80 K/ L 1.32-3.57 (BEAKER) (test code = 414) MONOCYTES ABSOLUTE COUNT (BEAKER) 1.06 K/ L 0.30-0.82 H (test code = 415) EOSINOPHILS ABSOLUTE COUNT 0.69 K/ L 0.04-0.54 H (BEAKER) (test code = 416) BASOPHILS ABSOLUTE COUNT (BEAKER) 0.09 K/ L 0.01-0.08 H (test code = 417) IMMATURE GRANULOCYTES-RELATIVE 0 % 0-1 PERCENT (BEAKER) (test code = 2801) RAPID DRUG SCREEN, [id number] 00:35:00 Test Item Value Reference Range Interpretation Comments BARBITURATE URINE (BEAKER) (test Negative Negative code = 725) BENZODIAZEPINE SCREEN URINE (BEAKER) Negative Negative (test code = 726) COCAINE (METAB.) SCREEN (BEAKER) Negative Negative (test code = 1164) METHADONE SCREEN (BEAKER) (test code Negative Negative = 1436) OPIATE SCREEN URINE (BEAKER) (test Negative Negative code = 734) CANNABINOID SCREEN URINE (BEAKER) Negative Negative (test code = 727) AMPH/METHAMPH SCREEN (BEAKER) (test Negative Negative code = 1438) PHENCYCLIDINE SCREEN URINE (BEAKER) Negative Negative (test code = 608) OXYCODONE SCREEN URINE (BEAKER) Negative Negative (test code = 2761) DRUG CUTOFF CONC.Cocaine 300 ng/mL Cannabinoid 50 ng/mL Benzodiazepine 200 ng/mLBarbiturate 200 ng/mLPhencyclidine 25 ng/mLOpiate 300 ng/mLMethadone 300 ng/mLAmphetamine/ 1000 ng/mL MethamphetamineOxycodone 300 ng/mLThis assay provides an unconfirmed qualitative test result for the clinical management of patients in emergency situations. Chain of custody not maintained. Some vwen-nnb-zqfeefn medications, as well as adulterants, may cause inaccurate results. Clinical correlation should be applied. A more comprehensive drug screen or confirmation of a detected drug may be performed upon request. TROPONIN [id number] 00:15:00 Test Item Value Reference Range Interpretation Comments TROPONIN I (BEAKER) (test code = 397) < ng/mL 0.00-0.03 Troponin I (TnI) levels [...] acute neurological disease, and persistent tachyarrhythmia.COMPREHENSIVE METABOLIC [id number] 00:09:00 Test Item Value Reference Range Interpretation Comments TOTAL PROTEIN 6.9 gm/dL 6.0-8.3 (BEAKER) (test code = 770) ALBUMIN (BEAKER) 3.8 g/dL 3.5-5.0 (test code = 1145) ALKALINE PHOSPHATASE 95 U/L 40-150 (BEAKER) (test code = 346) BILIRUBIN TOTAL 0.6 mg/dL 0.2-1.2 (BEAKER) (test code = 377) SODIUM (BEAKER) (test 135 meq/L 136-145 L code = 381) POTASSIUM (BEAKER) 5.0 meq/L 3.5-5.1 (test code = 379) CHLORIDE (BEAKER) 104 meq/L 98-107 (test code = 382) CO2 (BEAKER) (test 25 meq/L 22-29 code = 355) BLOOD UREA NITROGEN 8 mg/dL 7-21 (BEAKER) (test code = 354) CREATININE (BEAKER) 1.03 mg/dL 0.57-1.25 (test code = 358) GLUCOSE RANDOM 292 mg/dL 70-105 H (BEAKER) (test code = 652) CALCIUM (BEAKER) 9.2 mg/dL 8.4-10.2 (test code = 697) AST (SGOT) (BEAKER) 23 U/L 5-34 (test code = 353) ALT (SGPT) (BEAKER) 17 U/L 6-55 (test code = 347) EGFR (BEAKER) (test 78 mL/min/1.73 ESTIMA NEO GFR IS code = 1092) sq m NOT ACCURATE CREATININE CLEARANCE IN PREDICTING GLOMERULAR FILTRATION RATE . ESTIMATED GFR I S NOT APPLICABLE FOR DIALYSIS PATIEN TS. URINALYSIS W/ [id number] 00:06:00 Test Item Value Reference Range Interpretation Comments COLOR (BEAKER) (test code = 470) Light Yellow CLARITY (BEAKER) (test code = Clear 469) SPECIFIC GRAVITY UA (BEAKER) 1.007 1.001-1.035 (test code = 468) PH UA (BEAKER) (test code = 467) 6.5 5.0-8.0 PROTEIN UA (BEAKER) (test code = Negative Negative 464) GLUCOSE UA (BEAKER) (test code = 500 mg/dL Negative A 365) KETONES UA (BEAKER) (test code = Negative Negative 371) BILIRUBIN UA (BEAKER) (test code Negative Negative = 462) BLOOD UA (BEAKER) (test code = Negative Negative 461) NITRITE UA (BEAKER) (test code = Negative Negative 465) LEUKOCYTE ESTERASE UA (BEAKER) Negative Negative (test code = 466) UROBILINOGEN UA (BEAKER) (test 0.2 mg/dL 0.2-1.0 code = 463) RBC UA (BEAKER) (test code = < /HPF 519) WBC UA (BEAKER) (test code = 1 /HPF 520) MUCUS (BEAKER) (test code = Rare 1574) SOURCE(BEAKER) (test code = 7783) RAD, CHEST, 1 VIEW, NON [id number] 23:11:00Reason for exam:->Obtundation with coarse respirations, baselineShould this be performed at the [facility]?->YesFINAL REPORT RAD, CHEST, 1 VIEW, NON DEPT INDICATION: Obtundation with coarserespirations, baseline COMPARISON: None. FINDINGS: Portable frontal view of the chest. IMPRESSION: Support Lines: None. Lungs and pleura: Clear lungs. No pneumothorax.Heart and mediastinum: Unremarka ble. Additional findings: Fluid and gaseous distention of the gastric lumen. Signed: JR Lozano [facility] Verified Date/Time: 02/11/2018 23:11:04 Reading Location[address]
[2019-09-18 11:56] LABS: Albumin 3.3 g/dL (3.4-5.0); Bilirubin Total 1.2 mg/dL (0.2-1.0); Protein, Total 7.2 g/dL (6.4-8.2)
[2019-09-18] MEDS ORDERED: INSULIN -REGULAR HUMAN 50 UNIT/0.5 ML ML ONE (12:10)
--- NOTE | 2019-09-18 12:30 | ER ---
Nurse's Notes [facility] Name: Surjit Stubbs Age: 44 yrs Sex: Male : 1975 Arrival Date: 09/18/2019 Time: 10:47 Bed 18 Private MD: Diagnosis: Elevated blood glucose level Presentation: 09/17 10:47 Chief complaint: Patient states: Has been in police custody since yesterday evening and ss not been able to take prescribed insulin as it was not in the correct container. Blood sugar reading, "high". Coronavirus screen: Proceed with normal triage. Patient denies a cough. Ebola Screen: Patient denies exposure to infectious person. Patient denies travel to an Ebola-affected area in the 21 days before illness onset. Initial Sepsis Screen: Does the patient meet any 2 criteria? No. Patient's initial sepsis screen is negative. Does the patient have a suspected source of infection? No. Patient's initial sepsis screen is negative. Risk Assessment: Do you want to hurt yourself or someone else? Patient reports no desire to harm self or others. Onset of symptoms was September 17, 2019. 10:47 Method Of Arrival: EMS: [facility] ss 10:47 Acuity: TOI 3 ss Historical: - Allergies: 10:52 tramadol; ss - PMHx: 10:52 Diabetes - IDDM; High Cholesterol; Hypothyroidism; neuropathy; Seizures; ss - PSHx: 10:52 None; ss - Immunization history:: Adult Immunizations up to date. - Social history:: Smoking status: Patient denies any tobacco usage or history of. Patient/guardian denies using alcohol, street drugs, The patient lives with family. - Family history:: not pertinent. Screenin:04 Abuse screen: Denies threats or abuse. Nutritional screening: No deficits noted. Tuberculosis screening: No symptoms or risk factors identified. Fall Risk None identified. Assessment: 10:52 Reassessment: 2 [facility] officers at bedside. ss 11:15 General: Appears in no apparent distress. Behavior is cooperative. Pain: Denies pain. Neuro: Level of Consciousness is awake, alert, Oriented to person, place, time. Cardiovascular: Heart tones S1 S2 Capillary refill < 3 seconds Patient's skin is warm and dry. Respiratory: Airway is patent Respiratory effort is even, unlabored, Respiratory pattern is regular, symmetrical. GI: Bowel sounds present X 4 quads. Abd is soft and non tender Reports nausea, Patient currently denies vomiting. : Reports urinary frequency. EENT: No signs and/or symptoms were reported regarding the EENT system. Derm: No signs and/or symptoms reported regarding the dermatologic system. Musculoskeletal: No signs and/or symptoms reported regarding the musculoskeletal system. Vital Signs: 10:47 BP 134 / 91; Pulse 95; Resp 16; Temp 97.4(O); Pulse Ox 98% on R/A; Weight 68.04 kg; Height 5 ft. 0 in. (152.40 cm); Pain 0/10; 11:00 BP 125 / 84; Pulse 98; Resp 18; Pulse Ox 97% ; ah 12:00 BP 121 / 79; Pulse 96; Resp 17; Pulse Ox 98% ; ah 12:45 BP 139 / 91; Pulse 97; Resp 18; Pulse Ox 97% ; ah 10:47 Body Mass Index 29.29 (68.04 kg, 152.40 cm) ED Course: 10:47 Patient arrived in ED. 10:51 Triage completed. 10:52 Arm band placed on right wrist. 10:55 Jose Loera MD is Attending Physician. [facility] 10:55 Elvia Hanna, RN is Primary Nurse. 11:27 Initial lab(s) drawn, by ia, sent to lab. Inserted saline lock: 20 gauge in right dh3 forearm, using aseptic technique. Blood collected. 13:04 Patient has correct armband on for positive identification. Placed in gown. Call light in reach. Side rails up X 1. 13:04 No provider procedures requiring assistance completed. IV discontinued, intact, bleeding controlled, No redness/swelling at site. Pressure dressing applied. Administered Medications: 11:34 Drug: NS 0.9% 1000 ml Route: IV; Rate: 1 bolus; Site: right forearm; 13:05 Follow up: Response: No adverse reaction; IV Status: Completed infusion 12:08 Drug: Insulin Regular Human 6 units {Co-Signature: em (Rubens Sanchez RN).} Route: IVP; Site: right forearm; 13:04 Follow up: Response: No adverse reaction Outcome: 12:29 Discharge ordered by . ma 13:03 Discharged to Law Enforcement 13:03 Condition: good 13:03 Discharge instructions given to patient, police, Instructed on discharge instructions, Demonstrated understanding of instructions. 13:07 Patient left the ED. Signatures: Olya Hernandez RN RN Maria Fernanda Thapa 3 Jose Loera MD MD vt2 Elvia Hanna RN RN Rubens Sanchez RN
--- NOTE | 2019-09-18 12:30 | EDPHYS ---
Physician Documentation [facility] Name: Surjit Stubbs Age: 44 yrs Sex: Male : 1975 Arrival Date: 09/18/2019 Time: 10:47 Bed 18 Private MD: ED Physician Jose Loera HPI: 09/17 12:27 This 44 yrs old Male presents to ER via EMS with complaints of High Blood ma2 Sugar. 12:27 Onset: The symptoms/episode began/occurred gradually, 2 day(s) ago. Associated signs ma2 and symptoms: Pertinent negatives: anorexia, constipation, hair loss, ketones in urine. Current symptoms: In the emergency department the patient's symptoms are unchanged from the initial presentation. The patient has experienced similar episodes in the past. IDDM, had not been taking his insuline for 1 day . Historical: - Allergies: 10:52 tramadol; ss - PMHx: 10:52 Diabetes - IDDM; High Cholesterol; Hypothyroidism; neuropathy; Seizures; ss - PSHx: 10:52 None; ss - Immunization history:: Adult Immunizations up to date. - Social history:: Smoking status: Patient denies any tobacco usage or history of. Patient/guardian denies using alcohol, street drugs, The patient lives with family. - Family history:: not pertinent. ROS: 12:27 Constitutional: Negative for fever, chills, and weight loss. ma2 12:27 All other systems are negative. Exam: 12:27 Constitutional: This is a well developed, well nourished patient who is awake, alert, ma2 and in no acute distress. Head/Face: Normocephalic, atraumatic. Eyes: Pupils equal round and reactive to light, extra-ocular motions intact. Lids and lashes normal. Conjunctiva and sclera are non-icteric and not injected. Cornea within normal limits. Periorbital areas with no swelling, redness, or edema. ENT: Nares patent. No nasal discharge, no septal abnormalities noted. Tympanic membranes are normal and external auditory canals are clear. Oropharynx with no redness, swelling, or masses, exudates, or evidence of obstruction, uvula midline. Mucous membranes moist. Neck: Trachea midline, no thyromegaly or masses palpated, and no cervical lymphadenopathy. Supple, full range of motion without nuchal rigidity, or vertebral point tenderness. No Meningismus. Chest/axilla: Normal chest wall appearance and motion. Nontender with no deformity. No lesions are appreciated. Cardiovascular: Regular rate and rhythm with a normal S1 and S2. No gallops, murmurs, or rubs. Normal PMI, no JVD. No pulse deficits. Respiratory: Lungs have equal breath sounds bilaterally, clear to auscultation and percussion. No rales, rhonchi or wheezes noted. No increased work of breathing, no retractions or nasal flaring. Abdomen/GI: Soft, non-tender, with normal bowel sounds. No distension or tympany. No guarding or rebound. No evidence of tenderness throughout. Back: No spinal tenderness. No costovertebral tenderness. Full range of motion. Skin: Warm, dry with normal turgor. Normal color with no rashes, no lesions, and no evidence of cellulitis. MS/ Extremity: Pulses equal, no cyanosis. Neurovascular intact. Full, normal range of motion. Neuro: Awake and alert, GCS 15, oriented to person, place, time, and situation. Cranial nerves II-XII grossly intact. Motor strength 5/5 in all extremities. Sensory grossly intact. Cerebellar exam normal. Normal gait. Vital Signs: 10:47 BP 134 / 91; Pulse 95; Resp 16; Temp 97.4(O); Pulse Ox 98% on R/A; Weight 68.04 kg; ss Height 5 ft. 0 in. (152.40 cm); Pain 0/10; 11:00 BP 125 / 84; Pulse 98; Resp 18; Pulse Ox 97% ; ah 12:00 BP 121 / 79; Pulse 96; Resp 17; Pulse Ox 98% ; ah 12:45 BP 139 / 91; Pulse 97; Resp 18; Pulse Ox 97% ; ah 10:47 Body Mass Index 29.29 (68.04 kg, 152.40 cm) ss MDM: 10:55 Patient medically screened. ma2 12:27 Differential diagnosis: hyperglycemia. Data reviewed: vital signs, nurses notes. ma2 Counseling: I had a detailed discussion with the patient and/or guardian regarding: the historical points, exam findings, and any diagnostic results supporting the discharge/admit diagnosis, the presence of at least one elevated blood pressure reading (>120/80) during this emergency department visit, the need for outpatient follow up. Response to treatment: the patient's symptoms have markedly improved after treatment. 09/17 10:55 Order name: CMP; Complete Time: 11:58 ma2 09/17 12:56 Order name: Glucose, Ancillary Testing EDMS Administered Medications: 11:34 Drug: NS 0.9% 1000 ml Route: IV; Rate: 1 bolus; Site: right forearm; 13:05 Follow up: Response: No adverse reaction; IV Status: Completed infusion 12:08 Drug: Insulin Regular Human 6 units {Co-Signature: em (Rubens Sanchez RN).} Route: IVP; Site: right forearm; 13:04 Follow up: Response: No adverse reaction Disposition: 09/18/19 12:29 Discharged to Home. Impression: Elevated blood glucose level. - Condition is Stable. - Discharge Instructions: Diabetes Mellitus and Food. - Medication Reconciliation Form, Thank You Letter, Antibiotic Education, Prescription Opioid Use form. - Follow up: Private Physician; When: Tomorrow; Reason: Continuance of care. Signatures: Dispatcher [employer] Olya Wilkins RN RN Jose Loera MD MD ma2 Elvia Hanna RN RN Rubens Sanchez RN em Corrections: (The following items were deleted from the chart) 13:07 12:29 09/18/2019 12:29 Discharged to Home. Impression: Elevated blood glucose level. Condition is Stable. Forms are Medication Reconciliation Form, Thank You Letter, Antibiotic Education, Prescription Opioid Use. Follow up: Private Physician; When: Tomorrow; Reason: Continuance of care. ma2
[2019-09-18 13:22] VITALS: TEMP 97.4
[2019-09-18 13:25] VITALS: BP 139/91; O2SAT 97
== END 2019-09-18 13:07 | disposition home or self-care (01) ==
LOC: ER 10:43
DX: E11.65 Type 2 diabetes mellitus with hyperglycemia (principal); Z79.4 Long term (current) use of insulin; Z88.5 Allergy status to narcotic agent
CPT/HCPCS: 36415; 80053; 82947; 96361; 96374; 99284; J7030

== ENCOUNTER 2019-10-04 13:26 | Emergency (ER) | payer SELFPAY ==
--- OUTSIDE RECORDS SUMMARY | 2019-10-04 13:29 | XMS REPORT | Clinical Summary ---
:1975 [facility] Address [address] [place] [address] Care Team Providers Name Role Phone Unavailable [...] Not on file Results Not on fileafter 10/03/2018 Advance Directives For more information, please contact:[facility] [employer] [address] [place] [address] [place] [phone] Code Status Date Activated Date Inactivated Comments Full Code 02/11/2018 10:27 PM 02/13/2018 7:55 PM This code status was determined by: Patient
--- OUTSIDE RECORDS SUMMARY | 2019-10-04 13:30 | XMS REPORT ---
:1975 Author Organization [facility] t Address [address] [place] [address] Dr. Palma [address] [place] [id number] Care Team Providers Name Role Phone LEONID [...] Value Reference Range Interpretation Comme nts CULTURE ([facility]) (test code = 1095) No growth in 5 days URINE [id number] 10:25:00 Test Item Value Reference Range Interpretation Comments CULTURE ([facility]) (test code = 1095) No growth POCT-GLUCOSE [id number] 17:10:00 Test Item Value Reference Range Interpretation Comments POC-GLUCOSE METER 232 mg/dL 70-110 H TESTED AT [facility] 6720 ([facility]) (test code = CESAR R [facility] 1538) [id number] CT, CTANGIO [id number] 16:41:00CTV pleaseFINAL REPORT CTV brain 02/13/2018 4:35 [...] [place] Verified Date/Time: 02/13/2018 16:41:24 Reading Location: [facility] Radiology Reading Room POCT-GLUCOSE [id number] 13:07:00 Test Item Value Reference Range Interpretation Comments POC-GLUCOSE METER 311 mg/dL 70-110 H Notified R Ivonne MUÑOZ/TESTED ([facility]) (test code = AT [place] [address]) [place] [address] 0 IRON, TIBC, % SAT. (WITHOUT FERRITIN)2018-02-13 10:10:00 Test Item Value Reference Range Interpretation Comments IRON (BEAKER) (test code = 547) 49 ug/dL 40-160 TOTAL IRON BINDING CAPACITY 231 ug/dL 250-450 L (BEAKER) (test code = 769) IRON % SATURATION (2) (BEAKER) 21 % 20-55 (test code = 2590) POCT-GLUCOSE [id number] 08:50:00 Test Item Value Reference Range Interpretation Comments POC-GLUCOSE METER 348 mg/dL 70-110 H Notified R Ivonne MUÑOZ/TESTED (BEAKER) (test code = AT [place] [address]) [place] [address] 0 BASIC METABOLIC [id number] 08:31:00 Test Item Value Reference Range Interpretation [...] NOT APPLICABLE FOR DIALYSIS PATIEN TS. LIPID [id number] 08:31:00 Test Item Value Reference Range Interpretation [...] 130-159 High 160-189 Very High >=190IMMATURE RETICULOCYTE [id number] 08:16:00 Test Item Value Reference Range Interpretation Comments IMMATURE RETIC FRACTION (BEAKER) 8.600 % 2.300-13.400 (test code = 1447) RETICULOCYTE COUNT PCT (BEAKER) (test 1.4 % 0.5-1.8 code = 575) CBC W/PLT COUNT & AUTO [id number] 08:16:00 Test Item Value Reference Range Interpretation [...] PERCENT (BEAKER) (test code = 2801) POCT-GLUCOSE [id number] 21:18:00 Test Item Value Reference Range Interpretation Comments POC-GLUCOSE METER 226 mg/dL 70-110 H TESTED AT [facility] 6720 (BEAKER) (test code = CESAR [place] 1538) [id number] MR, BRAIN, WITHOUT [id number] 19:43:00FINAL REPORT MRI brain without contrast INDICATION: [...] thrombus cannot be excluded. The major proximal [place] of [place] flow voids are maintained. Mild [...] disease. Consider ENT follow up. Signed: [facility] Verified Date/Time: 02/12/2018 19:43:32 Reading Location: [facility] Radiology Reading Room POCT-GLUCOSE [id number] 19:01:00 Test Item Value Reference Range Interpretation Comments POC-GLUCOSE METER 362 mg/dL 70-110 H TESTED AT [facility] 6720 (BEAKER) (test code = CESAR Servin [facility] 1538) [address] EEG AWAKE AND [id number] 17:46:00Reason for exam:->SeizureShould this be performed at the bedside?->YesCHI [facility] EEG REPORTDATE OF TEST: [id number] OF REPORT: [id number]: [id number]: [id number] time: 14:04Stop time: 14:24ICD-10: R56.9CPT Code: 86211VFTOPXG: 40 y old 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, [...] of this report.Queenie Loco MD, PhDClinical Neurophysiology/Epilepsy [facility] POCT- GLUCOSE [id number] 15:33:00 Test Item Value Reference Range Interpretation Comments POC-GLUCOSE METER 213 mg/dL 70-110 H TESTED AT [facility] 67 ([facility]) (test code = CESAR [facility]8) [address] TSH/FREE T4 IF [id number] 09:35:00 Test Item Value Reference Range Interpretation Comments THYROID STIMULATING HORMONE 4.03 uIU/mL 0.35-4.94 (BEAKER) (test code = 772) HEMOGLOBIN [id number] 08:47:00 Test Item Value Reference Range Interpretation Comments HEMOGLOBIN A1C (BEAKER) (test code = 6.5 % 4.3-6.1 H 368) POCT-GLUCOSE [id number] 07:55:00 Test Item Value Reference Range Interpretation Comments POC-GLUCOSE METER 219 mg/dL 70-110 H TESTED AT [facility] 6720 (BEAKER) (test code = [place]ESAR [place] 1538) [id number] 05:00:00 Test Item Value Reference Range Interpretation Comments MAGNESIUM (BEAKER) (test code = 2.1 mg/dL 1.6-2.6 627) BASIC METABOLIC [id number] 05:00:00 Test Item Value Reference Range Interpretation [...] PATIEN TS. CBC W/PLT COUNT & AUTO [id number] 04:40:00 Test Item Value Reference Range Interpretation [...] PERCENT (BEAKER) (test code = 2801) POCT-GLUCOSE [id number] 04:31:00 Test Item Value Reference Range Interpretation Comments POC-GLUCOSE METER 183 mg/dL 70-110 H TESTED AT [place] [address] ([facility]) (test code = CESAR [place] 1538) [address] RAD, ABDOMEN/KUB, 1 VIEW [id number] 01:33:00Reason for exam:->Abdominal distension, obtundationFINAL REPORT CLINICAL [...] calcification in the pelvis. Signed: [facility] Verified Date/Time: 02/12/2018 01:33:19 Reading Location: [address] Transitional Reading Room -GLUCOSE [id number] 00:49:00 Test Item Value Reference Range Interpretation Comments POC-GLUCOSE METER 346 mg/dL 70-110 H TESTED AT [place] [address] ([facility]) (test code = CESAR Servin [facility] 1538) [address] CBC W/PLT COUNT & AUTO [id number] 00:44:00 Test Item Value Reference Range Interpretation Comments WHITE BLOOD CELL COUNT ([facility]) 14.3 K/ L 3.5-10.5 H (test code = 775) RED BLOOD CELL COUNT ([facility]) 4.26 M/ L 4.63-6.08 L (test code = 761) HEMOGLOBIN (BEAKER) (test code = 13.8 GM/DL 13.7-17.5 410) HEMATOCRIT ([facility]) (test code = 42.1 % 40.1-51.0 411) MEAN CORPUSCULAR VOLUME ([facility]) 98.8 fL 79.0-92.2 H (test code = [...] (test code = 2801) RAPID DRUG SCREEN, [id number] 00:35:00 Test Item Value Reference Range Interpretation [...] situations. Chain of custody not maintained. Some cwlr-vof-ujvxbus medications, as well as adulterants, may cause inaccurate results. Clinical correlation should be applied. A more comprehensive drug screen or confirmation of a detected drug may be performed upon request. TROPONIN [id number] 00:15:00 Test Item Value Reference Range Interpretation [...] acute neurological disease, and persistent tachyarrhythmia.COMPREHENSIVE METABOLIC [id number] 00:09:00 Test Item Value Reference Range Interpretation [...] APPLICABLE FOR DIALYSIS PATIEN TS. URINALYSIS W/ [id number] 00:06:00 Test Item Value Reference Range Interpretation [...] = Rare 1574) SOURCE(BEAKER) (test code = 9310) RAD, CHEST, 1 VIEW, NON [id number] 23:11:00Reason for exam:->Obtundation with coarse respirations, baselineShould this be performed at the [facility]?->YesFINAL REPORT RAD, CHEST, 1 VIEW, NON DEPT INDICATION: Obtundation with coarserespirations, baseline COMPARISON: None. FINDINGS: Portable frontal view of the chest. IMPRESSION: Support Lines: None. Lungs and pleura: Clear lungs. No pneumothorax.Heart and mediastinum: Unremarka ble. Additional findings: Fluid and gaseous distention of the gastric lumen. Signed: JR Lozano [facility] Verified Date/Time: 02/11/2018 23:11:04 [address]
[2019-10-04] MEDS ORDERED: D50W 25 GM/50 ML SYRINGE/VIAL IV ONE ×2 (13:45→14:47)
[2019-10-04 14:13] LABS: Absolute Lymphocytes (CBC) 1.4 K/uL (0.7-4.9); Hematocrit 39.8 % (39.6-49.0); Lymphocytes % 34.7 % (15.3-44.8); MPV 7.7 fL (7.6-11.3); RBC Red Blood Cell Count 4.23 M/uL (4.33-5.43)
[2019-10-04 14:28] LABS: BUN Blood Urea Nitrogen 8 mg/dL (7-18); Bicarbonate 28 mmol/L (21-32); Potassium 3.2 mmol/L (3.5-5.1); Sodium Level 141 mmol/L (136-145)
[2019-10-04 14:30] LABS: Glucose Level 47 mg/dL (74-106)
[2019-10-04] MEDS ORDERED: D5 0.9 NS 1,000 ML IV ONE (14:51)
[2019-10-04] MEDS ORDERED: ONDANSETRON 4 MG/2 ML VIAL ONE (15:07)
[2019-10-04 17:21] VITALS: TEMP 97.5
[2019-10-04 17:23] VITALS: BP 146/92; O2SAT 99
--- NOTE | 2019-10-05 12:56 | EKG ---
Test Date: 2019-10-04 Test Time: 13:57:31 Parlor Maid: COURTNEY MEASUREMENT RESULTS: Intervals: Rate: 65 OK: 142 QRSD: 78 QT: 422 QTc: 438 [place]: P: 44 OK: 142 QRS: 48 T: 61 INTERPRETIVE STATEMENTS: Normal sinus rhythm with sinus arrhythmia Abnormal ECG Electronically Signed On 10-05-19 12:55:52 CDT by Familia Pickett
--- NOTE | 2019-10-07 17:11 | ER ---
Nurse's Notes [facility] Name: Surjit Stubbs Age: 44 yrs Sex: Male : 1975 Arrival Date: 10/04/2019 Time: 13:37 Bed 5 Private MD: Diagnosis: Hypoglycemia, unspecified Presentation: 10/03 13:30 Chief complaint: EMS states: Toned out by [employer] that saw pt laying on the front jl7 lawn, Glucometer read LOW, administered 250 ml D10, BGL 152 approximately 25 min prior to ER arrival, A\\T\\Ox4. Pt c/o left rib cage pain, abrasion noted to left rib cage. 13:30 Coronavirus screen: Proceed with normal triage. Patient denies a cough. Patient denies jl7 shortness of breath or difficulty breathing. Patient denies measured and/or subjective temperature greater than 100.4F prior to today's visit. Patient denies travel on a cruise ship or to a country the [facility] currently lists as an affected area. Patient denies contact with known and/or suspected case of COVID-19. Ebola Screen: No symptoms or risks identified at this time. Initial Sepsis Screen: Does the patient meet any 2 criteria? No. Patient's initial sepsis screen is negative. Does the patient have a suspected source of infection? No. Patient's initial sepsis screen is negative. Risk Assessment: Do you want to hurt yourself or someone else? Patient reports no desire to harm self or others. Onset of symptoms was October 04, 2019. Care prior to arrival: Medication(s) given: D10 IV initiated. 18 GA, in the right antecubital area, Glucose check: 152 BGL LOW on arrival. Transition of care: patient was not received from another setting of care. 13:30 Method Of Arrival: EMS: [facility] jl7 13:30 Acuity: TOI 2 jl7 Triage Assessment: 13:30 General: Appears in no apparent distress. uncomfortable, slender, unkempt, Behavior is jl7 calm, cooperative, appropriate for age. Pain: Complains of pain in left rib cage. Neuro: Level of Consciousness is awake, alert, obeys commands, Oriented to person, place, time, situation. Cardiovascular: Patient's skin is warm and dry. Respiratory: Airway is patent Respiratory effort is even, unlabored, Respiratory pattern is regular, symmetrical. Derm: Skin is pink, warm \\T\\ dry. Historical: - Allergies: 13:50 tramadol; jl7 - Home Meds: 13:50 acetaminophen-codeine 300-60 mg Oral tab [Active]; [place] Thyroid 60 mg Oral tab jl7 [Active]; gabapentin 100 mg Oral cap [Active]; gemfibrozil 600 mg Oral tab 1 tab 2 times per day [Active]; Glucagon Emergency Kit (human) 1 mg IM kit 1 mL [Active]; Levemir subcutaneous [Active]; levetiracetam 500 mg Oral tab 1 tab 2 times per day [Active]; Novolog Sub-Q [Active]; - PMHx: 13:50 Diabetes - IDDM; High Cholesterol; Hypothyroidism; neuropathy; Seizures; jl7 - PSHx: 13:50 None; jl7 - Immunization history:: Adult Immunizations unknown. - Social history:: Smoking status: Patient reports the use of cigarette tobacco products, smokes one pack cigarettes per day. Screenin:10 Abuse screen: Denies threats or abuse. Denies injuries from another. Nutritional jl7 screening: No deficits noted. Tuberculosis screening: No symptoms or risk factors identified. Fall Risk No fall in past 12 months (0 pts). Secondary diagnosis (15 points) seizures, IV access (20 points). Ambulatory Aid- None/Bed Rest/Nurse Assist (0 pts). Gait- Weak (10 pts.). Mental Status- Oriented to own ability (0 pts). Total Beck Fall Scale indicates High Risk Score (45 or more points). Fall prevention measures have been instituted. Side Rails Up X 2 Placed Close to Nursing Station Frequent Obs/Assessments Occuring As available patient and family educated on Fall Prevention Program and Strategies. Assessment: 13:30 Reassessment: Pt's oral temp 93.9, warm blankets placed around pt's head and body. jl7 13:45 Reassessment: BGL 52 in triage, ERP notified, VO for 1/2 amp of D50. Administered as jl7 ordered, diet tray ordered. 14:10 Reassessment: Diet tray given. jl7 14:35 Reassessment: Pt states "I feel like I'm about to pass out." BGL 22, ERD notified, VO jl7 for 1 amp D50, administered as ordered. 14:40 Reassessment: Florinda [phone] Point of Contact. ss 14:50 Reassessment: VO for 100 ml/hr D5NS IV. jl7 15:00 Reassessment: Pt c/o nausea, ERP notified, VO for 4 mg Zofran IVP. jl7 15:38 Reassessment: BGL 176, pt states "It's time to check out." Pt reports feeling much jl7 better. ERP notified, VO to decreased infusion to 50 ml/hr and recheck BGL in 1 hour. Vital Signs: 13:30 BP 153 / 99; Pulse 81; Resp 16 S; Temp 93.9(O); Pulse Ox 100% on R/A; jl7 14:12 Temp 94.5; jl7 14:50 BP 128 / 88; Pulse 72; Resp 15; Temp 97.5; Pulse Ox 100% ; jl7 15:53 BP 146 / 92; Pulse 82; Resp 16; Pulse Ox 99% ; jl7 ED Course: 13:30 Patient has correct armband on for positive identification. Placed in gown. Bed in low jl7 position. Call light in reach. Side rails up X2. potline monitor on. Pulse ox on. NIBP on. Warm blanket given. 13:30 Maintain EMS IV. Dressing intact. Good blood return noted. Site clean \\T\\ dry. Gauge \\T\\ jl 7 site: 18 right AC. 13:37 Patient arrived in ED. bd 13:40 Jose Armando Razo PA is PHCP. jr8 13:40 Jame Vaughan MD is Attending Physician. jr8 13:44 Lewis Chang, MELANIE is Primary Nurse. jl7 13:49 Triage completed. jl7 13:50 Arm band placed on right wrist. jl7 14:04 EKG done, by ED staff, reviewed by Jose Armando GONZALEZ. em1 14:05 Initial lab(s) drawn, by me, sent to lab. jl7 16:06 PHCP role handed off by Jose Armando Razo PA jmm 16:06 Lv Cuevas PA is PHCP. [facility] 17:11 No provider procedures requiring assistance completed. Pt dc'd own IV. Bleeding intact/ ss controlled. Administered Medications: 13:42 Drug: D50W 25 ml Route: IVP; Site: right antecubital; jl7 14:30 Follow up: Response: No adverse reaction; Blood sugar is lowered [facility] 14:35 Drug: D50W 50 ml Route: IVP; Site: right antecubital; jl7 17:14 Follow up: Response: No adverse reaction; Blood sugar is elevated ss 15:00 Drug: D5-NS 1000 ml Route: IV; Rate: 50 ml/hr; Site: right antecubital; jl7 17:00 Follow up: IV Status: IV converted to saline lock ss 15:02 Drug: Zofran (Ondansetron) 4 mg Route: IVP; Site: right antecubital; jl7 17:14 Follow up: Response: No adverse reaction Outcome: 16:58 Discharge ordered by . fabiano 17:11 Discharged to home ambulatory. ss 17:11 Condition: good 17:11 Discharge instructions given to patient, family, Instructed on discharge instructions, follow up and referral plans. medication usage, Demonstrated understanding of instructions, follow-up care, medications. 17:13 Patient left the ED. ss Signatures: Carmen Smith Joel, PA PA jmm Martinez, Eric em1 Olya Hernandez RN RN Jose Armando Razo PA PA jr8 Leal, Jahala, RN RN jl7
--- NOTE | 2019-10-07 17:12 | EDPHYS ---
Physician Documentation [facility] Name: Surjit Stubbs Age: 44 yrs Sex: Male : 1975 Arrival Date: 10/04/2019 Time: 13:37 Bed 5 Private MD: ED Physician Jame Vaughan HPI: 10/03 14:20 This 44 yrs old Male presents to ER via EMS with complaints of jr8 Hypoglycemia/AMS. 14:20 The patient presents with decreased mental status, decreased responsiveness, jr8 disorientation. Onset: The symptoms/episode began/occurred acutely, today. Possible causes: low blood sugar, the patient uses insulin, the patient apparently forgot to eat. Associated signs and symptoms: The patient has no apparent associated signs or symptoms. Current symptoms: In the emergency department the patient's symptoms have improved, moderately. Patient's baseline: Neuro: alert and fully oriented, Motor: no deficits, Ambulation: walks without assistance, Speech: normal. The patient has experienced similar episodes in the past, a few times. The patient has not recently seen a physician. EMS called out by narciso Stiles after finding patient unresponsive in front lawn. Patient found to have low glucose level upon there arrival. Given medication en route to hospital. Patient now alert and oriented to person, place, time, event. Stated that he had been working outside all morning and forgot to eat lunch . Historical: - Allergies: 13:50 tramadol; jl7 - Home Meds: 13:50 acetaminophen-codeine 300-60 mg Oral tab [Active]; [place] Thyroid 60 mg Oral tab jl7 [Active]; gabapentin 100 mg Oral cap [Active]; gemfibrozil 600 mg Oral tab 1 tab 2 times per day [Active]; Glucagon Emergency Kit (human) 1 mg IM kit 1 mL [Active]; Levemir subcutaneous [Active]; levetiracetam 500 mg Oral tab 1 tab 2 times per day [Active]; Novolog Sub-Q [Active]; - PMHx: 13:50 Diabetes - IDDM; High Cholesterol; Hypothyroidism; neuropathy; Seizures; jl7 - PSHx: 13:50 None; jl7 - Immunization history:: Adult Immunizations unknown. - Social history:: Smoking status: Patient reports the use of cigarette tobacco products, smokes one pack cigarettes per day. ROS: 14:20 Eyes: Negative for injury, pain, redness, and discharge, ENT: Negative for injury, jr8 pain, and discharge, Neck: Negative for injury, pain, and swelling, Cardiovascular: Negative for chest pain, palpitations, and edema, Respiratory: Negative for shortness of breath, cough, wheezing, and pleuritic chest pain, Abdomen/GI: Negative for abdominal pain, nausea, vomiting, diarrhea, and constipation, Back: Negative for injury and pain, MS/Extremity: Negative for injury and deformity, Skin: Negative for injury, rash, and discoloration. 14:20 Neuro: Positive for altered mental status. Exam: 14:20 Eyes: Pupils equal round and reactive to light, extra-ocular motions intact. Lids and jr8 lashes normal. Conjunctiva and sclera are non-icteric and not injected. Cornea within normal limits. Periorbital areas with no swelling, redness, or edema. ENT: Nares patent. No nasal discharge, no septal abnormalities noted. Tympanic membranes are normal and external auditory canals are clear. Oropharynx with no redness, swelling, or masses, exudates, or evidence of obstruction, uvula midline. Mucous membranes moist. Neck: Trachea midline, no thyromegaly or masses palpated, and no cervical lymphadenopathy. Supple, full range of motion without nuchal rigidity, or vertebral point tenderness. No Meningismus. Cardiovascular: Regular rate and rhythm with a normal S1 and S2. No gallops, murmurs, or rubs. Normal PMI, no JVD. No pulse deficits. Respiratory: Lungs have equal breath sounds bilaterally, clear to auscultation and percussion. No rales, rhonchi or wheezes noted. No increased work of breathing, no retractions or nasal flaring. Abdomen/GI: Soft, non-tender, with normal bowel sounds. No distension or tympany. No guarding or rebound. No evidence of tenderness throughout. Back: No spinal tenderness. No costovertebral tenderness. Full range of motion. MS/ Extremity: Pulses equal, no cyanosis. Neurovascular intact. Full, normal range of motion. Neuro: Awake and alert, GCS 15, oriented to person, place, time, and situation. Cranial nerves II-XII grossly intact. Motor strength 5/5 in all extremities. Sensory grossly intact. Cerebellar exam normal. Normal gait. 14:20 Skin: Appearance: Color: normal in color, Temperature: cool. Vital Signs: 13:30 BP 153 / 99; Pulse 81; Resp 16 S; Temp 93.9(O); Pulse Ox 100% on R/A; jl7 14:12 Temp 94.5; jl7 14:50 BP 128 / 88; Pulse 72; Resp 15; Temp 97.5; Pulse Ox 100% ; jl7 15:53 BP 146 / 92; Pulse 82; Resp 16; Pulse Ox 99% ; jl7 MDM: 13:40 Patient medically screened. [facility] 15:56 Data reviewed: vital signs, nurses notes, lab test result(s). Data interpreted: Pulse 8 oximetry: on room air is 99 %. Interpretation: normal. Counseling: I had a detailed discussion with the patient and/or guardian regarding: the historical points, exam findings, and any diagnostic results supporting the discharge/admit diagnosis, lab results. Transition of care: After a detail discussion of the patient's case, care is transferred to Lv GONZALEZ. ED course: Patient improving but had another drop in glucose. Patient given another amp of D50 and put on D5NS. Weaned now to 50/h to see how he does. If it continues to drop after next recheck will be admitted for obs for glucose control. Otherwise no other acute abnormalities and can go home. 10/03 13:40 Order name: CBC with Diff; Complete Time: 15:43 [facility] 10/03 13:40 Order name: Basic Metabolic Panel; Complete Time: 15:43 [facility] 10/03 13:55 Order name: Glucose, Ancillary Testing; Complete Time: 14:04 [facility] 10/03 14:58 Order name: Glucose, Ancillary Testing; Complete Time: 15:43 [facility] 10/03 15:46 Order name: Glucose, Ancillary Testing; Complete Time: 15:49 [facility] 10/03 17:08 Order name: Glucose, Ancillary Testing; Complete Time: 18:53 [facility] 10/03 13:40 Order name: IV; Complete Time: 13:51 [facility] 10/03 13:56 Order name: Diet Regular; Complete Time: 13:56 ss Administered Medications: 13:42 Drug: D50W 25 ml Route: IVP; Site: right antecubital; [facility] 14:30 Follow up: Response: No adverse reaction; Blood sugar is lowered jl7 14:35 Drug: D50W 50 ml Route: IVP; Site: right antecubital; jl7 17:14 Follow up: Response: No adverse reaction; Blood sugar is elevated ss 15:00 Drug: D5-NS 1000 ml Route: IV; Rate: 50 ml/hr; Site: right antecubital; jl7 17:00 Follow up: IV Status: IV converted to saline lock ss 15:02 Drug: Zofran (Ondansetron) 4 mg Route: IVP; Site: right antecubital; jl7 17:14 Follow up: Response: No adverse reaction ss Disposition: 10/04 07:47 Co-signature as Attending Physician, Jame Vaughan MD I agree with the assessment and zarina plan of care. Disposition: 10/04/19 16:58 Discharged to Home. Impression: Hypoglycemia, unspecified. - Condition is Stable. - Discharge Instructions: Hypoglycemia. - Medication Reconciliation Form, Thank You Letter, Antibiotic Education, Prescription Opioid Use form. - Follow up: Private Physician; When: 2 - 3 days; Reason: Recheck today's complaints, Continuance of care, Re-evaluation by your physician. Signatures: Dispatcher [employer] EDJame Patel MD MD cha Mickail, Joel, PA PA jmm Smirch, Shelby, RN RN Jose Armando Burnham PA PA jr8 Leal, Jahala RN RN jl7 Corrections: (The following items were deleted from the chart) 10/03 17:13 16:58 10/04/2019 16:58 Discharged to Home. Impression: Hypoglycemia, unspecified. ss Condition is Stable. Forms are Medication Reconciliation Form, Thank You Letter, Antibiotic Education, Prescription Opioid Use. Follow up: Private Physician; When: 2 - 3 days; Reason: Recheck today's complaints, Continuance of care, Re-evaluation by your physician. fabiano
== END 2019-10-04 17:13 | disposition home or self-care (01) ==
LOC: ER 13:26
DX: E11.649 Type 2 diabetes mellitus with hypoglycemia without coma (principal); E78.00 Pure hypercholesterolemia, unspecified; E03.9 Hypothyroidism, unspecified; G40.909 Epilepsy, unspecified, not intractable, without status epilepticus; Z79.4 Long term (current) use of insulin; Z88.6 Allergy status to analgesic agent; F17.210 Nicotine dependence, cigarettes, uncomplicated
CPT/HCPCS: 36415; 80048; 82947; 85025; 93005; 96365; 96366; 96375; 99284; J2405; J7042

== ENCOUNTER 2019-10-18 20:40 | Emergency (ER) | payer SELFPAY ==
--- OUTSIDE RECORDS SUMMARY | 2019-10-18 20:42 | XMS REPORT | Clinical Summary ---
:1975 [facility] Address [address] [place] [address] Care Team Providers Name Role Phone Unavailable [...] Not on file Results Not on fileafter 10/17/2018 Advance Directives For more information, please contact:[facility] CargomaticMinid[facility] HospitalPanl [id number] [place] [address] [place] [phone] Code Status Date Activated Date Inactivated Comments Full Code 02/11/2018 10:27 PM 02/13/2018 7:55 PM This code status was determined by: Patient
--- OUTSIDE RECORDS SUMMARY | 2019-10-18 20:43 | XMS REPORT | Continuity of Care Document ---
:1975 Author Organization [facility] [place] [facility] t Address [address] [place] [address] [address] [place] [address] Care Team Providers Name Role Phone LEONID MANRIQUE Attending Clinician Unavailable LEONID MANRIQUE Admitting Clinician Unavailable Problems Condition Condition Condition Status Onset Resolution Last Treating Co mments Source Name Details Category Date Date Treatment Clinician Date 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 [facility] protein-ca 0[facility]10 [facility] - lizbet menaie 00:00: Medical malnutriti malnutriti 00 Ce nter on on Provoked Provoked Disease [facility] 2017[facility] 00 [place] Acute Acute Disease Active 2017-[address] [facility] [address] encephalop encephalop 0-08 [facility] - athy athy 00:00: Medical 00 [place] Hyperglyce Hyperglyce Disease Active 2017-[address] yvan yvan 0-08 [facility] 00 [place] Diabetes Diabetes Disease Active 2017[facility] mellitus [facility] 00 [place] Hyperchole Hyperchole Disease Active 2017-[address] steremia steremia 0-08 [facility] - 00:[facility]: Medical 00 [place] Thyroid Thyroid Disease Active 2017-[address] disease disease 0-08 [facility] - 00:[facility]: Medical 00 [place] Leukocytos Leukocytos Disease Active 2017-[address] is is 0-08 [facility] - 00:[facility]: Medical 00 [place] Anemia Anemia Disease Active 2017-[address] 0-08 [facility] - 00:[facility]: Medical 00 [place] Convulsive Convulsive Disease Active 2017-[address] seizure seizure 0-07 [facility] - disorder disorder 00:00: Medica l with with 00 Center status status epilepticu epilepticu s s Allergies, Adverse Reactions, Alerts This patient has no known allergies or adverse reactions. Social History Social Habit Start Date Stop Date Quantity Comments Source Sex Assigned At [facility] Smoking Status Start Date Stop Date Source Current every day smoker 2018-02-13 00:00:00 [facility] Medications Ordered Filled Start Stop Current Ordering Indication Dosage Frequency Signature Comments Components Source Medication Medication Date Date Medication? Clinician (SIG) Name Name thyroid, 2017-05 Yes 120mg QD Take [address] [facility] pork, 120 0-09 mg by [facility] - mg Tab 13:43: mouth Medical 02 daily. Center gemfibrozil 2017-05 Yes 600mg Take [address] (LOPID) 600 0-09 mg by [facility] - MG tablet 13:43: mouth 2 Medic al 02 (two) Center times daily before meals. insulin 2017-05 Yes 6U QD Inject [address] detemir 0-09 Units [facility] - U-100 13:43: subcutaneo Medica l (LEVEMIR) 02 usly Center 100 unit/mL nightly. injection insulin 2017-05 Yes 3U Inject [address] [facility] [facility] aspart 0-09 Units [facility] - U-100 13:43: subcutaneo Medica l (NOVOLOG) 02 usly 3 Center 100 unit/mL (three) InPn times daily before meals. acetaminoph 2017-05 Yes 1{tbl} Take [address] en-codeine 0-09 tablet by Andres s - (TYLENOL 13:43: mouth Medical #4) 300-60 02 every 6 Center mg per (six) tablet hours as needed for Pain. Immunizations Ordered Immunization Filled Immunization Date Status Commen ts Source Name Name Influenza Four-QIV 2018-02-13 Completed [facility] Non-PF 5+ YR 00:00:00 Medical Cent er Procedures This patient has no known procedures. Results Test Description Test Time Test Comments Results Result Comments Source BLOOD CULTURE 2018-02-17 06:00:00 Test Item Value Reference Range Interpretation Comme nts CULTURE (BEAKER) (test code = 1095) No growth in 5 days URINE [id number] 10:25:00 Test Item Value Reference Range Interpretation Comments CULTURE (BEAKER) (test code = 1095) No growth POCT-GLUCOSE [id number] 17:10:00 Test Item Value Reference Range Interpretation Comments POC-GLUCOSE METER 232 mg/dL 70-110 H TESTED AT [facility] 67[address] ([facility]) (test code = DARRYLANA Gareth [facility] 1535) [address] CT, CTANGIO [id number] 16:41:00CTV pleaseFINAL REPORT CTV brain 02/13/2018 4:35 [...] effect.2. Unremarkable intracranial CTV.3. Sinusitis. Signed: Blaise Sky Verified Date/Time: 02/13/2018 16:41:24 Reading Location: [facility] Radiology Reading Room POCT-GLUCOSE [id number] 13:07:00 Test Item Value Reference Range Interpretation Comments POC-GLUCOSE METER 311 mg/dL 70-110 H Notified Gareth Coronado MD/TESTED (GLORIA) (test code = AT [facility] [address] [facility] 1532) [facility] [address] IRON, TIBC, % SAT. (WITHOUT FERRITIN)2018-02-13 10:10:00 Test Item Value Reference Range Interpretation Comments IRON ([facility]) (test code = 547) 49 ug/dL 40-160 TOTAL IRON BINDING CAPACITY 231 ug/dL 250-450 L ([facility]) (test code = 769) IRON % SATURATION (2) (BEAKER) 21 % 20-55 (test code = 2590) POCT-GLUCOSE [id number] 08:50:00 Test Item Value Reference Range Interpretation Comments POC-GLUCOSE METER 348 mg/dL 70-110 H Notified R N MD/TESTED (BEAKER) (test code = [facility] [address] [facility] 1538) [place] [address] BASIC METABOLIC [id number] 08:31:00 Test Item Value Reference Range Interpretation [...] NOT APPLICABLE FOR DIALYSIS PATIEN TS. LIPID [id number] 08:31:00 Test Item Value Reference Range Interpretation [...] 130-159 High 160-189 Very High >=190IMMATURE RETICULOCYTE [id number] 08:16:00 Test Item Value Reference Range Interpretation Comments IMMATURE RETIC FRACTION (BEAKER) 8.600 % 2.300-13.400 (test code = 1447) RETICULOCYTE COUNT PCT (BEAKER) (test 1.4 % 0.5-1.8 code = 575) CBC W/PLT COUNT & AUTO [id number] 08:16:00 Test Item Value Reference Range Interpretation [...] PERCENT (BEAKER) (test code = 2801) POCT-GLUCOSE [id number] 21:18:00 Test Item Value Reference Range Interpretation Comments POC-GLUCOSE METER 226 mg/dL 70-110 H TESTED AT [facility] 67[address] (BEAKER) (test code = [place] 1538) [id number] MR, BRAIN, WITHOUT [id number] 19:43:00FINAL REPORT MRI brain without contrast INDICATION: [...] thrombus cannot be excluded. The major proximal kletsel dehe wintun of [place] flow voids are maintained. Mild [...] Consider ENT follow up. Signed: Le Gregory MDReport Verified Date/Time: 02/12/2018 19:43:32 Reading Location: [facility] Radiology Reading Room POCT-GLUCOSE [id number] 19:01:00 Test Item Value Reference Range Interpretation Comments POC-GLUCOSE METER 362 mg/dL 70-110 H TESTED AT [facility] [address] ([facility]) (test code = C[place] 1538) [address] EEG AWAKE AND [id number] 17:46:00Reason for exam:->SeizureShould this be performed at the bedside?->YesCH[facility] EEG REPORTDATE OF TEST: 11-4-2497MUPJ OF REPORT: [id number]: [id number]: [id number] time: 14:04Stop time: 14:24ICD-10: R56.9CPT Code: [id number]: 40 y old 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, [...] of this report.Queenie Loco MD, PhDClinical Neurophysiology/Epilepsy AttendingCHI [facility] POCT- GLUCOSE [id number] 15:33:00 Test Item Value Reference Range Interpretation Comments POC-GLUCOSE METER 213 mg/dL 70-110 H TESTED AT [facility] 67 (BEAKER) (test code = CESAR Servin [facility] 1538) [address] TSH/FREE T4 IF [id number] 09:35:00 Test Item Value Reference Range Interpretation Comments THYROID STIMULATING HORMONE 4.03 uIU/mL 0.35-4.94 (BEAKER) (test code = 772) HEMOGLOBIN [id number] 08:47:00 Test Item Value Reference Range Interpretation Comments HEMOGLOBIN A1C (BEAKER) (test code = 6.5 % 4.3-6.1 H 368) POCT-GLUCOSE [id number] 07:55:00 Test Item Value Reference Range Interpretation Comments POC-GLUCOSE METER 219 mg/dL 70-110 H TESTED AT [facility] 67 (BEAKER) (test code = DARRYLANA Gareth [facility] 1538) [address] [id number] 05:00:00 Test Item Value Reference Range Interpretation Comments MAGNESIUM (BEAKER) (test code = 2.1 mg/dL 1.6-2.6 627) BASIC METABOLIC [id number] 05:00:00 Test Item Value Reference Range Interpretation [...] PATIEN TS. CBC W/PLT COUNT & AUTO [id number] 04:40:00 Test Item Value Reference Range Interpretation [...] PERCENT (BEAKER) (test code = 2801) POCT-GLUCOSE [id number] 04:31:00 Test Item Value Reference Range Interpretation Comments POC-GLUCOSE METER 183 mg/dL 70-110 H TESTED AT [facility] 67[address] (BEAKER) (test code = CESAR Servin [facility] 1538) [id number] RAD, ABDOMEN/KUB, 1 VIEW [id number] 01:33:00Reason for exam:->Abdominal distension, obtundationFINAL REPORT CLINICAL [...] in the pelvis. Signed: Wilfredo De Leon Verified Date/Time: 02/12/2018 01:33:19 Reading Location: [facility] [address] [place] [address] Reading Room -GLUCOSE [id number] 00:49:00 Test Item Value Reference Range Interpretation Comments POC-GLUCOSE METER 346 mg/dL 70-110 H TESTED AT [facility] 67[address] (BEAKER) (test code = [place] 1538) [address] CBC W/PLT COUNT & AUTO [id number] 00:44:00 Test Item Value Reference Range Interpretation Comments WHITE BLOOD CELL COUNT (BEAKER) 14.3 K/ L 3.5-10.5 H (test code = 775) RED BLOOD CELL COUNT (BEAKER) 4.26 M/ L 4.63-6.08 L (test code = 761) HEMOGLOBIN (BEAKER) (test code = 13.8 GM/DL 13.7-17.5 410) HEMATOCRIT (BEAKER) (test code = 42.1 % 40.1-51.0 411) MEAN CORPUSCULAR VOLUME (BEAKER) 98.8 fL 79.0-92.2 H (test code = [...] (test code = 2801) RAPID DRUG SCREEN, [id number] 00:35:00 Test Item Value Reference Range Interpretation [...] situations. Chain of custody not maintained. Some bozq-vtu-mjzcfxd medications, as well as adulterants, may cause inaccurate results. Clinical correlation should be applied. A more comprehensive drug screen or confirmation of a detected drug may be performed upon request. TROPONIN [id number] 00:15:00 Test Item Value Reference Range Interpretation [...] acute neurological disease, and persistent tachyarrhythmia.COMPREHENSIVE METABOLIC [id number] 00:09:00 Test Item Value Reference Range Interpretation [...] APPLICABLE FOR DIALYSIS PATIEN TS. URINALYSIS W/ [id number] 00:06:00 Test Item Value Reference Range Interpretation [...] = Rare 1574) SOURCE(BEAKER) (test code = 2795) RAD, CHEST, 1 VIEW, NON [id number] 23:11:00Reason for exam:->Obtundation with coarse respirations, baselineShould this be performed at the [facility]?->YesFINAL REPORT RAD, CHEST, 1 VIEW, NON DEPT INDICATION: Obtundation with coarserespirations, baseline COMPARISON: None. FINDINGS: Portable frontal view of the chest. IMPRESSION: Support Lines: None. Lungs and pleura: Clear lungs. No pneumothorax.Heart and mediastinum: Unremarka ble. Additional findings: Fluid and gaseous distention of the gastric lumen. Signed: JR Lozano Robert MDReport Verified Date/Time: 02/11/2018 23:11:04 Reading [address]: [address]
[2019-10-18] MEDS ORDERED: D50W 25 GM/50 ML SYRINGE/VIAL IV ONE (21:05)
[2019-10-18 21:11] LABS: Absolute Lymphocytes (CBC) 1.1 K/uL (0.7-4.9); Basophils % 0.8 % (0-1.3); Lymphocytes % 18.9 % (15.3-44.8); MPV 8.3 fL (7.6-11.3); RBC Red Blood Cell Count 3.95 M/uL (4.33-5.43)
[2019-10-18] MEDS ORDERED: NA CHLORIDE 0.9% 1,000 ML ONE (21:17)
[2019-10-18 21:40] LABS: ALT/SGPT 104 U/L (12-78); AST/SGOT 205 U/L (15-37); Albumin 3.2 g/dL (3.4-5.0); Alkaline Phosphatase 211 U/L (45-117); BUN Blood Urea Nitrogen 10 mg/dL (7-18); Bicarbonate 24 mmol/L (21-32); Bilirubin Direct 0.2 mg/dL (0-0.2); Bilirubin Total 0.6 mg/dL (0.2-1.0); Glucose Level 60 mg/dL (74-106); Lipase 57 U/L (73-393); Potassium 3.4 mmol/L (3.5-5.1); Protein, Total 7.1 g/dL (6.4-8.2); Sodium Level 143 mmol/L (136-145)
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
--- NOTE | 2019-10-18 22:13 | EDPHYS ---
Physician Documentation [facility] Name: Surjit Stubbs Age: 44 yrs Sex: Male : 1975 Arrival Date: 10/18/2019 Time: 20:45 Bed 7 Private MD: ED Physician Ezio Chew HPI: 10/17 21:39 This 44 yrs old Male presents to ER via EMS with complaints of Low Blood tw4 Sugar. 21:39 The patient or guardian reports hypoglycemia. Onset: The symptoms/episode tw4 began/occurred today. Associated signs and symptoms: Pertinent negatives:. Current symptoms: In the emergency department the patient's symptoms are unchanged from the initial presentation. The patient has not experienced similar symptoms in the past. Historical: - Allergies: 20:52 tramadol; rv - Home Meds: 21:35 acetaminophen-codeine 300-60 mg Oral tab [Active]; [place] Thyroid 60 mg Oral tab tl2 [Active]; gabapentin 100 mg Oral cap [Active]; gemfibrozil 600 mg Oral tab 1 tab 2 times per day [Active]; Glucagon Emergency Kit (human) 1 mg IM kit 1 mL [Active]; Levemir subcutaneous [Active]; levetiracetam 500 mg Oral tab 1 tab 2 times per day [Active]; Novolog Sub-Q [Active]; - PMHx: 20:52 Diabetes - IDDM; High Cholesterol; Hypothyroidism; neuropathy; Seizures; rv - PSHx: 20:52 None; rv - Immunization history:: Adult Immunizations up to date. - Social history:: Smoking status: Patient reports the use of cigarette tobacco products, smokes one pack cigarettes per day. ROS: 21:39 Constitutional: Negative for fever, chills, and weight loss, Eyes: Negative for injury, tw4 pain, redness, and discharge, Cardiovascular: Negative for chest pain, palpitations, and edema, Respiratory: Negative for shortness of breath, cough, wheezing, and pleuritic chest pain, Abdomen/GI: Negative for abdominal pain, nausea, vomiting, diarrhea, and constipation, Back: Negative for injury and pain, MS/Extremity: Negative for injury and deformity, Skin: Negative for injury, rash, and discoloration, Neuro: Negative for headache, weakness, numbness, tingling, and seizure. Exam: 21:39 Constitutional: This is a well developed, well nourished patient who is awake, alert, tw4 and in no acute distress. Head/Face: Normocephalic, atraumatic. Chest/axilla: Normal chest wall appearance and motion. Nontender with no deformity. No lesions are appreciated. Cardiovascular: Regular rate and rhythm with a normal S1 and S2. No gallops, murmurs, or rubs. Normal PMI, no JVD. No pulse deficits. Respiratory: Lungs have equal breath sounds bilaterally, clear to auscultation and percussion. No rales, rhonchi or wheezes noted. No increased work of breathing, no retractions or nasal flaring. Abdomen/GI: Soft, non-tender, with normal bowel sounds. No distension or tympany. No guarding or rebound. No evidence of tenderness throughout. Back: No spinal tenderness. No costovertebral tenderness. Full range of motion. MS/ Extremity: Pulses equal, no cyanosis. Neurovascular intact. Full, normal range of motion. Neuro: Awake and alert, GCS 15, oriented to person, place, time, and situation. Cranial nerves II-XII grossly intact. Motor strength 5/5 in all extremities. Sensory grossly intact. Cerebellar exam normal. Normal gait. Vital Signs: 20:46 BP 138 / 97; Pulse 92; Resp 18; Temp 98.2(O); Pulse Ox 96% on R/A; Weight 65.77 kg; tl2 Height 5 ft. 9 in. (175.26 cm); 21:30 BP 128 / 82; Pulse 94; Resp 18; Pulse Ox 100% on R/A; tl2 22:07 BP 113 / 74; Pulse 90; Resp 18; Pulse Ox 98% on R/A; tl2 22:29 BP 118 / 79; Pulse 90; Resp 18; Pulse Ox 98% on R/A; tl2 20:46 Body Mass Index 21.41 (65.77 kg, 175.26 cm) tl2 MDM: 20:53 Patient medically screened. tw4 21:40 Differential diagnosis: hypoglycemic episode. Data reviewed: vital signs, nurses notes. tw4 Data interpreted: Pulse oximetry: Interpretation: normal. Counseling: I had a detailed discussion with the patient and/or guardian regarding: the historical points, exam findings, and any diagnostic results supporting the discharge/admit diagnosis, lab results. 10/17 20:53 Order name: Basic Metabolic Panel; Complete Time: 22:30 [facility] 10/17 22:30 Interpretation: Normal except: GLUC 60; K 3.4; CL 109. [facility] 10/17 20:53 Order name: CBC with Diff; Complete Time: 22:30 [facility] 10/17 22:30 Interpretation: Normal except: RBC 3.95; HGB 13.3; HCT 38.0. [facility] 10/17 20:53 Order name: Hepatic Function; Complete Time: 22:30 [facility] 10/17 22:30 Interpretation: Normal except: AST 205; ALT 104; ALK 211; ALB 3.2; GLOB 3.9; A/G 0.8. [facility] 10/17 20:53 Order name: Lipase; Complete Time: 22:30 [facility] 10/17 22:31 Interpretation: Normal except: LIP 57. [facility] 10/17 21:43 Order name: Glucose, Ancillary Testing; Complete Time: 22:30 EDMS 10/17 22:31 Interpretation: Normal except: GLUC,ANCIL 214. [facility] 10/17 22:16 Order name: Glucose, Ancillary Testing; Complete Time: 22:30 EDMS 10/17 22:31 Interpretation: Normal except: GLUC,ANCIL 244. [facility] 10/17 20:53 Order name: IV Saline Lock; Complete Time: 21:01 [facility] 10/17 20:53 Order name: Labs collected and sent; Complete Time: 21:01 [facility] 10/17 22:39 Order name: Glucose, Ancillary Testing EDMS Administered Medications: 21:07 Drug: D50W 50 ml Route: IVP; Site: left forearm; tl2 21:36 Follow up: Response: Blood sugar is elevated; 214 tl2 21:18 Drug: NS 0.9% 1000 ml Route: IV; Rate: 1 bolus; Site: left forearm; tl2 22:47 Follow up: IV Status: Completed infusion; IV Intake: 500ml rv Point of Care Testing: Blood Glucose: 20:46 Blood Glucose: 63 mg/dL; tl2 22:06 Blood Glucose: 244 mg/dL; tl2 22:29 Blood Glucose: 217 mg/dL; tl2 Ranges: Critical Glucose Levels:Adult <50 mg/dl or >400 mg/dl <40 mg/dl or >180 mg/dl Disposition: 10/18/19 22:12 Discharged to Home. Impression: Hypoglycemia, unspecified. - Condition is Stable. - Discharge Instructions: Hypoglycemia. - Medication Reconciliation Form, Thank You Letter, Antibiotic Education, Prescription Opioid Use form. - Follow up: Private Physician; When: Upon discharge from the Emergency Department; Reason: Recheck today's complaints, Continuance of care, Re-evaluation by your physician. - Problem is new. - Symptoms have improved. Signatures: Dispatcher [employer] EDTN Shari Spencer RN RN tl2 Ezio Chew MD MD tw4 Troy Altamirano RN RN rv Corrections: (The following items were deleted from the chart) 22:47 22:12 10/18/2019 22:12 Discharged to Home. Impression: Hypoglycemia, unspecified. rv Condition is Stable. Forms are Medication Reconciliation Form, Thank You Letter, Antibiotic Education, Prescription Opioid Use. Follow up: Private Physician; When: Upon discharge from the Emergency Department; Reason: Recheck today's complaints, Continuance of care, Re-evaluation by your physician. Problem is new. Symptoms have improved. tw4
[2019-10-18 22:54] VITALS: TEMP 98.2
[2019-10-18 22:56] VITALS: O2SAT 98
[2019-10-18 22:58] VITALS: BP 118/79
== END 2019-10-18 22:47 | disposition home or self-care (01) ==
LOC: ER 20:40
DX: E16.2 Hypoglycemia, unspecified (principal); V43.52XA Car driver injured in collision with other type car in traffic accident, initial encounter; Y93.89 Activity, other specified; Y92.9 Unspecified place or not applicable
CPT/HCPCS: 36415; 80048; 80076; 82947; 83690; 85025; 93005; 96361; 96374; 99284; J7030

== ENCOUNTER 2019-10-20 16:34 | Emergency (ER) | payer SELFPAY ==
--- OUTSIDE RECORDS SUMMARY | 2019-10-20 16:36 | XMS REPORT | Clinical Summary ---
:1975 Author Organization [facility] Address [address] [place] [address] Care Team Providers Name Role Phone Unavailable [...] Not on file Results Not on fileafter 10/19/2018 Advance Directives For more information, please contact:[facility] [address] [place] [address] [place] [phone] Code Status Date Activated Date Inactivated Comments Full Code 02/11/2018 10:27 PM 02/13/2018 7:55 PM This code status was determined by: Patient
--- OUTSIDE RECORDS SUMMARY | 2019-10-20 16:37 | XMS REPORT | Continuity of Care Document ---
:1975 Author Organization [facility] t Address [address] [place] [address] [address] [place] [address] Care Team Providers Name Role Phone LEONID [...] [facility] 0[facility]08 [facility] 00 [facility] Acute Acute Disease Active 2017-[address] [facility] [address] encephalop encephalop 0-08 [facility] - athy athy 00:00: Medical 00 [facility] Hyperglyce Hyperglyce Disease Active 2017-[address] yvan yvan 0-08 [facility]: [facility] 00 [facility] Diabetes Diabetes Disease [facility] 2017[facility] 00 [facility] Hyperchole Hyperchole Disease Active 2017-[address] steremia steremia 0-08 [facility]: [facility] 00 [facility] Thyroid Thyroid Disease Active 2017-[address] [facility] [address] disease disease 0-08 [facility]: [facility] 00 [facility] Leukocytos Leukocytos Disease Active 2017-[address] is is 0-08 [facility] 00[facility]: [facility] 00 [facility] Anemia Anemia Disease Active 2017-[address] [facility] [address] 0-08 [facility] 00:[facility]: [facility] 00 [facility] Convulsive Convulsive Disease Active 2017-[address] seizure seizure 0-07 [facility] - disorder disorder 00:00: Medica l with with 00 Center status status epilepticu epilepticu s s Allergies, Adverse Reactions, Alerts This patient has no known allergies or adverse reactions. Social History Social Habit Start Date Stop Date Quantity Comments Source Sex Assigned At [facility] Smoking Status Start Date Stop Date Source Current every day smoker 2018-02-13 00:00:00 [facility] Medications Ordered Filled Start Stop Current Ordering [...] Source Name Name Influenza Four-QIV 2018-02-13 [address] [facility] Non-PF 5+ YR 00:00:00 [facility] Cent er Procedures This patient has no known procedures. Results Test Description Test Time Test Comments Results Result Comments Source BLOOD CULTURE 2018-02-17 06:00:00 Test Item Value Reference Range Interpretation Comme nts CULTURE (BEAKER) (test code = 1095) No growth in 5 days URINE [id number] 10:25:00 Test Item Value Reference Range Interpretation Comments CULTURE (BEAKER) (test code = 1095) No growth POCT-GLUCOSE [id number] 17:10:00 Test Item Value Reference Range Interpretation Comments POC-GLUCOSE METER 232 mg/dL 70-110 H TESTED AT [facility] 67[address] ([facility]) (test code = DARRYLANA Gareth [facility] 1534) [address] CT, CTANGIO [id number] 16:41:00CTV pleaseFINAL REPORT CTV brain 02/13/2018 4:35 [...] Sky Verified Date/Time: 02/13/2018 16:41:24 Reading Location: [facility] Radiology Reading Room POCT-GLUCOSE [id number] 13:07:00 Test Item Value Reference Range Interpretation Comments POC-GLUCOSE METER 311 mg/dL 70-110 H Notified Gareth Coronado MD/TESTED ([place]OR[place]) (test code = AT [facility] 67[address] [facility] 1532) [facility] 89[address] 0 IRON, TIBC, % SAT. (WITHOUT FERRITIN)2018-02-13 10:10:00 Test Item Value Reference Range Interpretation Comments IRON ([facility]) (test code = 547) 49 ug/dL 40-160 TOTAL IRON BINDING CAPACITY 231 ug/dL 250-450 L ([facility]) (test code = 769) IRON % SATURATION (2) (BEAKER) 21 % 20-55 (test code = 2590) POCT-GLUCOSE [id number] 08:50:00 Test Item Value Reference Range Interpretation Comments POC-GLUCOSE METER 348 mg/dL 70-110 H Notified R N MD/TESTED (BEAKER) (test code = [facility] [address] [facility] 1538) [place] [address] BASIC METABOLIC [id number] 08:31:00 Test Item Value Reference Range Interpretation [...] NOT APPLICABLE FOR DIALYSIS PATIEN TS. LIPID [id number] 08:31:00 Test Item Value Reference Range Interpretation [...] 130-159 High 160-189 Very High >=190IMMATURE RETICULOCYTE [id number] 08:16:00 Test Item Value Reference Range Interpretation Comments IMMATURE RETIC FRACTION (BEAKER) 8.600 % 2.300-13.400 (test code = 1447) RETICULOCYTE COUNT PCT (BEAKER) (test 1.4 % 0.5-1.8 code = 575) CBC W/PLT COUNT & AUTO [id number] 08:16:00 Test Item Value Reference Range Interpretation [...] PERCENT (BEAKER) (test code = 2801) POCT-GLUCOSE [id number] 21:18:00 Test Item Value Reference Range Interpretation Comments POC-GLUCOSE METER 226 mg/dL 70-110 H TESTED AT [facility] 6720 (BEAKER) (test code = [place] 1538) [id number] MR, BRAIN, WITHOUT [id number] 19:43:00FINAL REPORT MRI brain without contrast INDICATION: [...] thrombus cannot be excluded. The major proximal seminole of [place] flow voids are maintained. Mild [...] MDReport Verified Date/Time: 02/12/2018 19:43:32 Reading Location: [facility] Radiology Reading Room POCT-GLUCOSE [id number] 19:01:00 Test Item Value Reference Range Interpretation Comments POC-GLUCOSE METER 362 mg/dL 70-110 H TESTED AT [facility] 67[address] ([facility]) (test code = CESAR Servin [place] 1538) [id number] EEG AWAKE AND [id number] 17:46:00Reason for exam:->SeizureShould this be performed at the bedside?->[facility]CH[facility] EEG REPORTDATE OF TEST: [id number] OF REPORT: [id number]: [id number]: [id number] time: 14:04Stop time: 14:24ICD-10: R56.9CPT Code: [id number]: 40 y old 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, [...] this report.Queenie Loco MD, PhDClinical Neurophysiology/Epilepsy AttendingCHI [facility] POCT- GLUCOSE [id number] 15:33:00 Test Item Value Reference Range Interpretation Comments POC-GLUCOSE METER 213 mg/dL 70-110 H TESTED AT [facility] 67 (BEAKER) (test code = CESAR Servin [facility] 1538) [id number] TSH/FREE T4 IF [id number] 09:35:00 Test Item Value Reference Range Interpretation Comments THYROID STIMULATING HORMONE 4.03 uIU/mL 0.35-4.94 (BEAKER) (test code = 772) HEMOGLOBIN [id number] 08:47:00 Test Item Value Reference Range Interpretation Comments HEMOGLOBIN A1C (BEAKER) (test code = 6.5 % 4.3-6.1 H 368) POCT-GLUCOSE [id number] 07:55:00 Test Item Value Reference Range Interpretation Comments POC-GLUCOSE METER 219 mg/dL 70-110 H TESTED AT [facility] 67 (BEAKER) (test code = DARRYLANA Gareth [facility] 1538) [address] [id number] 05:00:00 Test Item Value Reference Range Interpretation Comments MAGNESIUM (BEAKER) (test code = 2.1 mg/dL 1.6-2.6 627) BASIC METABOLIC [id number] 05:00:00 Test Item Value Reference Range Interpretation [...] PATIEN TS. CBC W/PLT COUNT & AUTO [id number] 04:40:00 Test Item Value Reference Range Interpretation [...] PERCENT (BEAKER) (test code = 2801) POCT-GLUCOSE [id number] 04:31:00 Test Item Value Reference Range Interpretation Comments POC-GLUCOSE METER 183 mg/dL 70-110 H TESTED AT [facility] 6720 (BEAKER) (test code = CESAR Servin [facility] 1538) [address] RAD, ABDOMEN/KUB, 1 VIEW [id number] 01:33:00Reason for exam:->Abdominal distension, obtundationFINAL REPORT CLINICAL [...] Date/Time: 02/12/2018 01:33:19 Reading Location: [facility] [address] [place] [address] Reading Room -GLUCOSE [id number] 00:49:00 Test Item Value Reference Range Interpretation Comments POC-GLUCOSE METER 346 mg/dL 70-110 H TESTED AT [facility] 6720 (BEAKER) (test code = [place] 1538) [address] CBC W/PLT COUNT & AUTO [id number] 00:44:00 Test Item Value Reference Range Interpretation [...] (test code = 2801) RAPID DRUG SCREEN, [id number] 00:35:00 Test Item Value Reference Range Interpretation [...] situations. Chain of custody not maintained. Some bvwj-ojk-tylsdqu medications, as well as adulterants, may cause inaccurate results. Clinical correlation should be applied. A more comprehensive drug screen or confirmation of a detected drug may be performed upon request. TROPONIN [id number] 00:15:00 Test Item Value Reference Range Interpretation [...] acute neurological disease, and persistent tachyarrhythmia.COMPREHENSIVE METABOLIC [id number] 00:09:00 Test Item Value Reference Range Interpretation [...] APPLICABLE FOR DIALYSIS PATIEN TS. URINALYSIS W/ [id number] 00:06:00 Test Item Value Reference Range Interpretation [...] = 2795) RAD, CHEST, 1 VIEW, NON [id number] 23:11:00Reason for exam:->Obtundation with coarse respirations, baselineShould [...] MDReport Verified Date/Time: 02/11/2018 23:11:04 [address]
--- NOTE | 2019-10-20 17:15 | ER ---
Nurse's Notes [facility] Name: Surjit Stubbs Age: 44 yrs Sex: Male : 1975 Arrival Date: 10/20/2019 Time: 16:53 Bed 19 Private MD: Diagnosis: Hypoglycemia, unspecified;Type 1 diabetes mellitus;Alcohol abuse, uncomplicated Presentation: 10/19 16:36 Chief complaint: EMS states: Pt. was unresponsive when EMS arrived on sceen in [place] [facility] [place], BGL 16, administered 100 of D10 and BGL 245. 20 g R FA. 16:36 Coronavirus screen: Proceed with normal triage. Ebola Screen: Patient denies travel to [facility] an Ebola-affected area in the 21 days before illness onset. 16:36 Method Of Arrival: EMS: [facility] 16:36 Initial Sepsis Screen: Does the patient meet any 2 criteria? No. Patient's initial [facility] sepsis screen is negative. Does the patient have a suspected source of infection? No. Patient's initial sepsis screen is negative. Risk Assessment: Do you want to hurt yourself or someone else? Patient reports no desire to harm self or others. Onset of symptoms was October 20, 2019. 16:36 Acuity: TOI 3 [facility] Triage Assessment: 16:36 General: Appears in no apparent distress. comfortable, Behavior is calm, cooperative, rb1 Denies fever. Pain: Denies pain. Neuro: Level of Consciousness is awake, alert, obeys commands, Oriented to person, place, time, situation. Neuro: Denies weakness blurred vision dizziness, headache. Cardiovascular: Capillary refill < 3 seconds. Respiratory: Airway is patent Respiratory effort is even, unlabored, Respiratory pattern is regular, symmetrical. GI: No signs and/or symptoms were reported involving the gastrointestinal system. : No signs and/or symptoms were reported regarding the genitourinary system. Derm: Skin is pink, warm \T\ dry. Musculoskeletal: Range of motion: intact in all extremities. 16:36 General: Reports Pt. reports that he did not eat. rb1 Historical: - Allergies: 16:36 tramadol; rb1 - Home Meds: 16:36 None [Active]; rb1 - PMHx: 16:36 Diabetes - IDDM; High Cholesterol; Hypothyroidism; neuropathy; Seizures; rb1 - PSHx: 16:36 Adenoids; rb1 - Immunization history:: Adult Immunizations up to date. - Social history:: Smoking status: Patient reports the use of cigarette tobacco products, smokes one pack cigarettes per day. - Family history:: not pertinent. Screenin:36 Abuse screen: Denies threats or abuse. Nutritional screening: No deficits noted. rb1 Tuberculosis screening: No symptoms or risk factors identified. Fall Risk Fall in past 12 months (25 points). Secondary diagnosis (15 points) seizures, IV access (20 points). Ambulatory Aid- None/Bed Rest/Nurse Assist (0 pts). Gait- Normal/Bed Rest/Wheelchair (0 pts) Mental Status- Oriented to own ability (0 pts). Total Beck Fall Scale indicates High Risk Score (45 or more points). Fall prevention measures have been instituted. Side Rails Up X 2 Placed Close to Nursing Station 1:1 Attendant Assigned Frequent Obs/Assessments Occuring As available patient and family educated on Fall Prevention Program and Strategies. Assessment: 16:36 General: See triage assessment. rb1 17:14 Reassessment: Checked pt. glucose and gave him a sandwich and some juice. Pt. reports rb1 that he is feeling better. 17:30 Reassessment: Patient appears in no apparent distress at this time. Patient and/or rb1 family updated on plan of care and expected duration. Pain level reassessed. Patient is alert, oriented x 3, equal unlabored respirations, skin warm/dry/pink. Patient denies pain at this time. Patient states feeling better. Patient states symptoms have improved. Vital Signs: 16:36 BP 144 / 100; Resp 17; Temp 98.5(TE); Weight 68.04 kg (R); Height 5 ft. 9 in. (175.26 rb1 cm) (R); Pain 0/10; 17:09 BP 144 / 100; Pulse 85; Resp 16; Temp 98.3(O); Pulse Ox 99% ; dh4 16:36 Body Mass Index 22.15 (68.04 kg, 175.26 cm) rb1 NIH Stroke Scale Scores: 17:09 NIHSS Score: 0 zarina ED Course: 16:36 Arm band placed on right wrist. rb1 16:36 Patient has correct armband on for positive identification. Bed in low position. Call rb1 light in reach. Side rails up X 1. Pulse ox on. NIBP on. 16:36 Maintain EMS IV. Dressing intact. Good blood return noted. Site clean \T\ dry. Gauge \T\ rb 1 site: 20 G R FA. 16:53 Patient arrived in ED. rb1 16:53 Jame Vaughan MD is Attending Physician. [facility] 17:41 Monae Oliver, RN is Primary Nurse. rb1 17:41 No provider procedures requiring assistance completed. IV discontinued, intact, rb1 bleeding controlled, No redness/swelling at site. Pressure dressing applied, Pt. discontinued his own IV, 20 g R FA. Bleeding is controlled. 19:14 Triage completed. rb1 Administered Medications: No medications were administered Outcome: 17:15 Discharge ordered by . zarina 17:41 Patient left the ED. rb1 17:41 Discharged to home ambulatory. rb1 17:41 Condition: stable 17:41 Discharge instructions given to patient, Instructed on discharge instructions, follow up and referral plans. Demonstrated understanding of instructions, follow-up care, Prescriptions given X none NIH Stroke Scale - NIH Stroke Score Date: 10/20/2019 Time: 17:09 Total Score = 0 1a. Level of Consciousness (LOC) - 0(Alert) 1b. Level of Consciousness (LOC) (Year \T\ Age) - 0(Both) 1c. LOC Commands (Open \T\ Closes Eyes/Slitting Machine Operator Helper) - 0(Both) 2. Best Gaze (Lateral Gaze Paresis) - 0(Normal) 3. Visual Field Loss - 0(No visual loss) 4. Facial Palsy - 0(Normal) 5a. Left Arm: Motor (10-second hold) - 0(No drift) 5b. Right Arm: Motor (10-second hold) - 0(No drift) 6a. Left Leg: Motor (5-second hold - always test supine) - 0(No drift) 6b. Right Leg: Motor (5-second hold - always test supine) - 0(No drift) 7. Limb Ataxia (finger/nose \T\ heel/gipson - test with eyes open) - 0(Absent) 8. Sensory Loss (pinprick arms/legs/face) - 0(Normal) 9. Best Language: Aphasia (description/naming/reading) - 0(No aphasia) 10. Dysarthria (speech clarity - read or repeat words) - 0(Normal) 11. Extinction and Inattention (visual/tactile/auditory/spatial/personal) - 0(No abnormality) Initials: zarina Signatures: Jame Vaughan MD MD cha Barber, Rebecca RN RN rb1 Scottie Matos 4 Corrections: (The following items were deleted from the chart) 19:18 16:36 Chief complaint: EMS states: Pt. was unresponsive when EMS arrived on rb1 sceen in [place], BGL 16, administered 100 of D10 and BGL 245. rb1
--- NOTE | 2019-10-20 17:15 | EDPHYS ---
Physician Documentation [facility] Name: Surjit Stubbs Age: 44 yrs Sex: Male : 1975 Arrival Date: 10/20/2019 Time: 16:53 Bed 19 Private MD: ED Physician Jame Vaughan HPI: 10/19 17:08 This 44 yrs old Male presents to ER via EMS with complaints of Low Blood zarina Sugar. 17:08 The patient or guardian reports hypoglycemia. Onset: The symptoms/episode zarina began/occurred just prior to arrival. Associated signs and symptoms:. Current symptoms: In the emergency department the patient's symptoms have improved. The patient has experienced similar episodes in the past, several times. 17:12 The patient presents with confusion, decreased mental status, decreased responsiveness. zarina Possible causes: alcohol, couple of drinks, low blood sugar. Associated signs and symptoms: The patient has no apparent associated signs or symptoms. Patient's baseline: Neuro: alert and fully oriented, pt takes insulin, no oral diabetic meds, pt non focal now , wants nothing done. Historical: - Allergies: 16:36 tramadol; rb1 - Home Meds: 16:36 None [Active]; rb1 - PMHx: 16:36 Diabetes - IDDM; High Cholesterol; Hypothyroidism; neuropathy; Seizures; rb1 - PSHx: 16:36 Adenoids; rb1 - Immunization history:: Adult Immunizations up to date. - Social history:: Smoking status: Patient reports the use of cigarette tobacco products, smokes one pack cigarettes per day. - Family history:: not pertinent. ROS: 17:09 Constitutional: Negative for fever, chills, and weight loss, Eyes: Negative for injury, zarina pain, redness, and discharge, ENT: Negative for injury, pain, and discharge, Neck: Negative for injury, pain, and swelling, Cardiovascular: Negative for chest pain, palpitations, and edema, Respiratory: Negative for shortness of breath, cough, wheezing, and pleuritic chest pain, Abdomen/GI: Negative for abdominal pain, nausea, vomiting, diarrhea, and constipation, Back: Negative for injury and pain, : Negative for injury, bleeding, discharge, and swelling, MS/Extremity: Negative for injury and deformity, Skin: Negative for injury, rash, and discoloration, Psych: Negative for depression, anxiety, suicide ideation, homicidal ideation, and hallucinations, Allergy/Immunology: Negative for hives, rash, and allergies, Hematologic/Lymphatic: Negative for swollen nodes, abnormal bleeding, and unusual bruising. 17:09 Neuro: Positive for altered mental status, weakness, fbs 16mg/dl. Exam: 17:09 Constitutional: This is a well developed, well nourished patient who is awake, alert, zarina and in no acute distress. Head/Face: Normocephalic, atraumatic. Eyes: Pupils equal round and reactive to light, extra-ocular motions intact. Lids and lashes normal. Conjunctiva and sclera are non-icteric and not injected. Cornea within normal limits. Periorbital areas with no swelling, redness, or edema. ENT: Nares patent. No nasal discharge, no septal abnormalities noted. Tympanic membranes are normal and external auditory canals are clear. Oropharynx with no redness, swelling, or masses, exudates, or evidence of obstruction, uvula midline. Mucous membranes moist. Neck: Trachea midline, no thyromegaly or masses palpated, and no cervical lymphadenopathy. Supple, full range of motion without nuchal rigidity, or vertebral point tenderness. No Meningismus. Chest/axilla: Normal chest wall appearance and motion. Nontender with no deformity. No lesions are appreciated. Cardiovascular: Regular rate and rhythm with a normal S1 and S2. No gallops, murmurs, or rubs. Normal PMI, no JVD. No pulse deficits. Respiratory: Lungs have equal breath sounds bilaterally, clear to auscultation and percussion. No rales, rhonchi or wheezes noted. No increased work of breathing, no retractions or nasal flaring. Abdomen/GI: Soft, non-tender, with normal bowel sounds. No distension or tympany. No guarding or rebound. No evidence of tenderness throughout. Back: No spinal tenderness. No costovertebral tenderness. Full range of motion. Male : Normal genitalia with no discharge or lesions. Skin: Warm, dry with normal turgor. Normal color with no rashes, no lesions, and no evidence of cellulitis. MS/ Extremity: Pulses equal, no cyanosis. Neurovascular intact. Full, normal range of motion. Neuro: Awake and alert, GCS 15, oriented to person, place, time, and situation. Cranial nerves II-XII grossly intact. Motor strength 5/5 in all extremities. Sensory grossly intact. Cerebellar exam normal. Normal gait. Psych: Awake, alert, with orientation to person, place and time. Behavior, mood, and affect are within normal limits. Vital Signs: 16:36 BP 144 / 100; Resp 17; Temp 98.5(TE); Weight 68.04 kg (R); Height 5 ft. 9 in. (175.26 rb1 cm) (R); Pain 0/10; 17:09 BP 144 / 100; Pulse 85; Resp 16; Temp 98.3(O); Pulse Ox 99% ; dh4 16:36 Body Mass Index 22.15 (68.04 kg, 175.26 cm) rb1 NIH Stroke Scale Scores: 17:09 NIHSS Score: 0 zarina MDM: 16:54 Patient medically screened. zarina 17:16 Data reviewed: vital signs, nurses notes. zarina 17:16 Differential diagnosis: DKA, hyperglycemia, hypoglycemic episode. Differential zarina Diagnosis: CVA, electrolyte abnormality, alcohol intoxication, hypoglycemia, intracranial bleed, volume depletion. Data interpreted: threat monitoring analyst: rate is 85 beats/min, rhythm is normal sinus rhythm, Pulse oximetry: on room air is 99 %. Test interpretation: by ED physician or midlevel provider:. Counseling: I had a detailed discussion with the patient and/or guardian regarding: the historical points, exam findings, and any diagnostic results supporting the discharge/admit diagnosis, the need for outpatient follow up, for definitive care, 17:17 ED course: pt alert and oriented x4 , feels good, wants to eat, explained problems that zarina occur with dm 1 and alcohol mix, pt understands. 10/19 17:14 Order name: Glucose, Ancillary Testing EDIA 10/19 17:08 Order name: Diet Regular; Complete Time: 17:09 zarina Administered Medications: No medications were administered Disposition: 10/20/19 17:15 Discharged to Home. Impression: Hypoglycemia, unspecified, Type 1 diabetes mellitus, Alcohol abuse, uncomplicated. - Condition is Stable. - Discharge Instructions: Alcohol Use Disorder, Type 1 Diabetes Mellitus, Diagnosis, Adult, Hypoglycemia, Alcohol Abuse and Nutrition, Diabetes Mellitus and Food, Hypoglycemia, Gdqi-sp-Ttyp, Type 1 Diabetes Mellitus, Self Care, Adult, Type 1 Diabetes Mellitus, Diagnosis, Adult, Dhkj-ps-Mxyb, Type 1 Diabetes Mellitus, Self Care, Adult, Bcgn-bw-Dstw. - Medication Reconciliation Form, Thank You Letter, Antibiotic Education, Prescription Opioid Use form. - Follow up: Private Physician; When: 1 - 2 days; Reason: Recheck today's complaints, Continuance of care, Re-evaluation by your physician. - Problem is new. - Symptoms have improved. NIH Stroke Scale - NIH Stroke Score Date: 10/20/2019 Time: 17:09 Total Score = 0 1a. Level of Consciousness (LOC) - 0(Alert) 1b. Level of Consciousness (LOC) (Year \T\ Age) - 0(Both) 1c. LOC Commands (Open \T\ Closes Eyes/Enameler) - 0(Both) 2. Best Gaze (Lateral Gaze Paresis) - 0(Normal) 3. Visual Field Loss - 0(No visual loss) 4. Facial Palsy - 0(Normal) 5a. Left Arm: Motor (10-second hold) - 0(No drift) 5b. Right Arm: Motor (10-second hold) - 0(No drift) 6a. Left Leg: Motor (5-second hold - always test supine) - 0(No drift) 6b. Right Leg: Motor (5-second hold - always test supine) - 0(No drift) 7. Limb Ataxia (finger/nose \T\ heel/gipson - test with eyes open) - 0(Absent) 8. Sensory Loss (pinprick arms/legs/face) - 0(Normal) 9. Best Language: Aphasia (description/naming/reading) - 0(No aphasia) 10. Dysarthria (speech clarity - read or repeat words) - 0(Normal) 11. Extinction and Inattention (visual/tactile/auditory/spatial/personal) - 0(No abnormality) Initials: zarina Signatures: Jame Vaughan MD MD cha Barber, Rebecca RN RN rb1 Corrections: (The following items were deleted from the chart) 17:41 17:15 10/20/2019 17:15 Discharged to Home. Impression: Hypoglycemia, rb1 unspecified; Type 1 diabetes mellitus; Alcohol abuse, uncomplicated. Condition is Stable. Forms are Medication Reconciliation Form, Thank You Letter, Antibiotic Education, Prescription Opioid Use. Follow up: Private Physician; When: 1 - 2 days; Reason: Recheck today's complaints, Continuance of care, Re-evaluation by your physician. Problem is new. Symptoms have improved. zarina
[2019-10-20 17:46] VITALS: BP 144/100
[2019-10-20 17:47] VITALS: TEMP 98.3; O2SAT 99
== END 2019-10-20 17:41 | disposition home or self-care (01) ==
LOC: ER 16:34
DX: E10.649 Type 1 diabetes mellitus with hypoglycemia without coma (principal); F10.10 Alcohol abuse, uncomplicated; F17.210 Nicotine dependence, cigarettes, uncomplicated; Z88.5 Allergy status to narcotic agent
CPT/HCPCS: 82947; 99283

== ENCOUNTER 2019-11-02 10:26 | Emergency (ER) | payer SELFPAY ==
--- OUTSIDE RECORDS SUMMARY | 2019-11-02 10:29 | XMS REPORT | Continuity of Care Document ---
:1975 Author Organization [facility] t Address [address] [place] [address] [address] [place] [address] Care Team Providers Name Role Phone LEONID [...] [facility]08 [facility] Acute Acute Disease Active 2017-[address] [facility] encephalop encephalop 0-08 [facility] - athy athy 00:00: [facility] 00 [facility] Hyperglyce Hyperglyce Disease Active 2017-[address] yvan yvan 0-08 [facility] 00 [facility] Diabetes Diabetes Disease [facility] 2017[facility] mellitus mellitus [facility] 00 [facility] Hyperchole Hyperchole Disease Active 2017-[address] steremia steremia 0-08 [facility] 00 [facility] Thyroid Thyroid Disease Active 2017-[address] [facility] disease disease 0-08 [facility]: [facility] 00 [facility] Leukocytos Leukocytos Disease Active 2017-[address] is is 0-08 [facility] 00 [facility] Anemia Anemia Disease Active 2017-[address] [facility] [address] 0-08 [facility] 00 [facility] Convulsive Convulsive Disease Active 2017-[address] seizure seizure 0-07 [facility] - disorder disorder 00:00: Medica l with with 00 Center status status epilepticu epilepticu s s Allergies, Adverse Reactions, Alerts This patient has no known allergies or adverse reactions. Social History Social Habit Start Date Stop Date Quantity Comments Source Sex Assigned At [facility] Smoking Status Start Date Stop Date Source Current every day smoker 2018-02-13 00:00:00 [facility] Medications Ordered Filled Start Stop Current [...] Source Name Name Influenza Four-QIV 2018-02-13 Completed [facility] Non-PF 5+ YR 00:00:00 [facility] Cent er Procedures This patient has no known procedures. Results Test Description Test Time Test Comments Results Result Comments Source BLOOD CULTURE 2018-02-17 06:00:00 Test Item Value Reference Range Interpretation Comme nts CULTURE (BEAKER) (test code = 1095) No growth in 5 days URINE [id number] 10:25:00 Test Item Value Reference Range Interpretation Comments CULTURE (BEAKER) (test code = 1095) No growth POCT-GLUCOSE [id number] 17:10:00 Test Item Value Reference Range Interpretation Comments POC-GLUCOSE METER 232 mg/dL 70-110 H TESTED AT [facility] 67[address] ([facility]) (test code = DARRYLANA Gareth [facility] 1534) [address] CT, CTANGIO [id number] 16:41:00CTV pleaseFINAL REPORT CTV brain 02/13/2018 4:35 [...] Sky Verified Date/Time: 02/13/2018 16:41:24 Reading Location: [facility] Radiology Reading Room POCT-GLUCOSE [id number] 13:07:00 Test Item Value Reference Range Interpretation Comments POC-GLUCOSE METER 311 mg/dL 70-110 H Notified Gareth Coronado MD/TESTED (GLOIRA) (test code = AT [facility] [address] [facility] 1536) [facility] 3849 0 IRON, TIBC, % SAT. (WITHOUT FERRITIN)2018-02-13 10:10:00 Test Item Value Reference Range Interpretation Comments IRON ([facility]) (test code = 547) 49 ug/dL 40-160 TOTAL IRON BINDING CAPACITY 231 ug/dL 250-450 L ([facility]) (test code = 769) IRON % SATURATION (2) (BEAKER) 21 % 20-55 (test code = 2590) POCT-GLUCOSE [id number] 08:50:00 Test Item Value Reference Range Interpretation Comments POC-GLUCOSE METER 348 mg/dL 70-110 H Notified R N MD/TESTED (BEAKER) (test code = [facility] [address] [facility] 1538) [place] [address] 0 BASIC METABOLIC [id number] 08:31:00 Test Item Value Reference Range Interpretation [...] NOT APPLICABLE FOR DIALYSIS PATIEN TS. LIPID [id number] 08:31:00 Test Item Value Reference Range Interpretation [...] 130-159 High 160-189 Very High >=190IMMATURE RETICULOCYTE [id number] 08:16:00 Test Item Value Reference Range Interpretation Comments IMMATURE RETIC FRACTION (BEAKER) 8.600 % 2.300-13.400 (test code = 1447) RETICULOCYTE COUNT PCT (BEAKER) (test 1.4 % 0.5-1.8 code = 575) CBC W/PLT COUNT & AUTO [id number] 08:16:00 Test Item Value Reference Range Interpretation [...] PERCENT (BEAKER) (test code = 2801) POCT-GLUCOSE [id number] 21:18:00 Test Item Value Reference Range Interpretation Comments POC-GLUCOSE METER 226 mg/dL 70-110 H TESTED AT [facility] 67[address] (BEAKER) (test code = [place] 1538) [address] MR, BRAIN, WITHOUT [id number] 19:43:00FINAL REPORT MRI brain without contrast INDICATION: [...] thrombus cannot be excluded. The major proximal kl[place] of [place]za flow voids are maintained. Mild [...] MDReport Verified Date/Time: 02/12/2018 19:43:32 Reading Location: [facility] Radiology Reading Room POCT-GLUCOSE [id number] 19:01:00 Test Item Value Reference Range Interpretation Comments POC-GLUCOSE METER 362 mg/dL 70-110 H TESTED AT [facility] [address] ([facility]) (test code = CESAR Servin [place] 1538) [address] EEG AWAKE AND [id number] 17:46:00Reason for exam:->SeizureShould this be performed at the bedside?->[facility] EEG REPORTDATE OF TEST: [id number] OF REPORT: [id number]: [id number]: [id number] time: 14:04Stop time: 14:24ICD-10: R56.9CPT Code: 75786YNVGZWG: 40 y old 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, [...] this report.Queenie Loco MD, PhDClinical Neurophysiology/Epilepsy AttendingCHI Public Health Service Hospital POCT- GLUCOSE [id number] 15:33:00 Test Item Value Reference Range Interpretation Comments POC-GLUCOSE METER 213 mg/dL 70-110 H TESTED AT [facility] 67 (BEAKER) (test code = CESAR Servin [facility] 1538) [address] TSH/FREE T4 IF [id number] 09:35:00 Test Item Value Reference Range Interpretation Comments THYROID STIMULATING HORMONE 4.03 uIU/mL 0.35-4.94 (BEAKER) (test code = 772) HEMOGLOBIN [id number] 08:47:00 Test Item Value Reference Range Interpretation Comments HEMOGLOBIN A1C (BEAKER) (test code = 6.5 % 4.3-6.1 H 368) POCT-GLUCOSE [id number] 07:55:00 Test Item Value Reference Range Interpretation Comments POC-GLUCOSE METER 219 mg/dL 70-110 H TESTED AT [facility] 67 (BEAKER) (test code = DARRYLANA Gareth [facility] 1538) [address] [id number] 05:00:00 Test Item Value Reference Range Interpretation Comments MAGNESIUM (BEAKER) (test code = 2.1 mg/dL 1.6-2.6 627) BASIC METABOLIC [id number] 05:00:00 Test Item Value Reference Range Interpretation [...] PATIEN TS. CBC W/PLT COUNT & AUTO [id number] 04:40:00 Test Item Value Reference Range Interpretation [...] PERCENT (BEAKER) (test code = 2801) POCT-GLUCOSE [id number] 04:31:00 Test Item Value Reference Range Interpretation Comments POC-GLUCOSE METER 183 mg/dL 70-110 H TESTED AT [facility] 67[address] (BEAKER) (test code = CESAR Servin [facility] 1538) [address] RAD, ABDOMEN/KUB, 1 VIEW [id number] 01:33:00Reason for exam:->Abdominal distension, obtundationFINAL REPORT CLINICAL [...] Leon Verified Date/Time: 02/12/2018 01:33:19 Reading Location: [facility] [address] [place] [address] Reading Room -GLUCOSE [id number] 00:49:00 Test Item Value Reference Range Interpretation Comments POC-GLUCOSE METER 346 mg/dL 70-110 H TESTED AT [facility] 67[address] (BEAKER) (test code = [place] 1538) [address] CBC W/PLT COUNT & AUTO [id number] 00:44:00 Test Item Value Reference Range Interpretation [...] (test code = 2801) RAPID DRUG SCREEN, [id number] 00:35:00 Test Item Value Reference Range Interpretation [...] situations. Chain of custody not maintained. Some ivsy-zok-pihawzv medications, as well as adulterants, may cause inaccurate results. Clinical correlation should be applied. A more comprehensive drug screen or confirmation of a detected drug may be performed upon request. TROPONIN [id number] 00:15:00 Test Item Value Reference Range Interpretation [...] acute neurological disease, and persistent tachyarrhythmia.COMPREHENSIVE METABOLIC [id number] 00:09:00 Test Item Value Reference Range Interpretation [...] APPLICABLE FOR DIALYSIS PATIEN TS. URINALYSIS W/ [id number] 00:06:00 Test Item Value Reference Range Interpretation [...] = 2795) RAD, CHEST, 1 VIEW, NON [id number] 23:11:00Reason for exam:->Obtundation with coarse respirations, baselineShould this be performed at the [facility]?->YesFINAL REPORT RAD, CHEST, 1 VIEW, NON DEPT INDICATION: Obtundation with coarserespirations, baseline COMPARISON: None. FINDINGS: Portable frontal view of the chest. IMPRESSION: Support Lines: None. Lungs and pleura: Clear lungs. No pneumothorax.Heart and mediastinum: Unremarka ble. Additional findings: Fluid and gaseous distention of the gastric lumen. Signed: JR Lozano Robert MDReport Verified Date/Time: 02/11/2018 23:11:04 [address]
--- OUTSIDE RECORDS SUMMARY | 2019-11-02 10:29 | XMS REPORT | Clinical Summary ---
:1975 Author Organization [facility]Bottom[facility] TechnologiesJeff[facility] Address [address] [place] [address] Care Team Providers Name Role Phone Unavailable [...] Not on file Results Not on fileafter 11/01/2018 Advance Directives For more information, please contact:[facility] BiotechSt[facility] Medical CenterHealthkart V[address] [place] [address] [place] [phone] Code Status Date Activated Date Inactivated Comments Full Code 02/11/2018 10:27 PM 02/13/2018 7:55 PM This code status was determined by: Patient
[2019-11-02] MEDS ORDERED: HYDROCODONE/APAP 5/325 MG TAB ONE (11:04)
[2019-11-02] MEDS ORDERED: TETANUS & DIPHTHERIA TOX,ADULT 0.5 ML VIAL ONE (11:05)
--- NOTE | 2019-11-02 11:33 | RAD REPORT ---
EXAM DESCRIPTION: RAD - Hand Right 3 View - 11/02/2019 11:07 am CLINICAL HISTORY: laceration COMPARISON: No comparisons FINDINGS: No fracture or radiopaque foreign body visualized.
--- NOTE | 2019-11-02 11:57 | ER ---
Nurse's Notes [facility] Name: Surjit Stubbs Age: 44 yrs Sex: Male : 1975 Arrival Date: 11/02/2019 Time: 10:28 Bed 20 Private MD: Diagnosis: Laceration without foreign body of right index finger without damage to nail Presentation: 11/01 10:31 Chief complaint: Patient states: Last night, Reaching the truck of my car and there was ca1 a knife back there, and it cut the 3rd digit of R hand. Coronavirus screen: Proceed with normal triage. Patient denies a cough. Patient denies shortness of breath or difficulty breathing. Patient denies measured and/or subjective temperature greater than 100.4F prior to today's visit. Patient denies travel on a cruise ship or to a country the [facility] currently lists as an affected area. Patient denies contact with known and/or suspected case of COVID-19. Ebola Screen: Patient negative for fever greater than or equal to 101.5 degrees Fahrenheit, and additional compatible Ebola Virus Disease symptoms Patient denies exposure to infectious person. Patient denies travel to an Ebola-affected area in the 21 days before illness onset. No symptoms or risks identified at this time. Initial Sepsis Screen: Does the patient meet any 2 criteria? No. Patient's initial sepsis screen is negative. Does the patient have a suspected source of infection? No. Patient's initial sepsis screen is negative. Risk Assessment: Do you want to hurt yourself or someone else? Patient reports no desire to harm self or others. Onset of symptoms was November 02, 2019. 10:31 Method Of Arrival: Ambulatory ca1 10:37 Acuity: TOI 3 ca1 Triage Assessment: 10:35 General: Appears in no apparent distress. comfortable, Behavior is cooperative, bp appropriate for age, anxious. Pain: Complains of pain in right hand. EENT: No deficits noted. Neuro: No deficits noted. Cardiovascular: No deficits noted. Respiratory: No deficits noted. GI: No signs and/or symptoms were reported involving the gastrointestinal system. : No signs and/or symptoms were reported regarding the genitourinary system. Derm: No deficits noted. Musculoskeletal: No deficits noted. Injury Description: Laceration sustained to right ring finger. Historical: - Allergies: 10:34 tramadol; ca1 - Home Meds: 10:34 acetaminophen-codeine 300-60 mg Oral tab [Active]; [place] Thyroid 60 mg Oral tab ca1 [Active]; gabapentin 100 mg Oral cap [Active]; gemfibrozil 600 mg Oral tab 1 tab 2 times per day [Active]; Glucagon Emergency Kit (human) 1 mg IM kit 1 mL [Active]; Levemir subcutaneous [Active]; levetiracetam 500 mg Oral tab 1 tab 2 times per day [Active]; Novolog Sub-Q [Active]; - PMHx: 10:34 Diabetes - IDDM; High Cholesterol; Hypothyroidism; neuropathy; Seizures; ca1 - PSHx: 10:34 Adenoids; ca1 - Immunization history:: Adult Immunizations not up to date, Last tetanus immunization: up to date. - Social history:: Smoking status: Patient reports the use of cigarette tobacco products, smokes two packs cigarettes per day. Screenin:36 Abuse screen: Denies threats or abuse. Denies injuries from another. Nutritional bp screening: No deficits noted. Tuberculosis screening: No symptoms or risk factors identified. Fall Risk None identified. Assessment: 10:36 General: SEE TRIAGE NOTE. bp 11:00 Reassessment: PT EATING MEAL PROVIDED BY FAMILY. XRAY AT B/S. bp 12:05 Reassessment: PT D/C HOME AMBULATORY WITH FAMILY, DX WITH LACERATION WITHOUT FOREIGN bp BODY TO FINGER. Vital Signs: 10:31 BP 108 / 83; Pulse 103; Resp 19 S; Temp 97.8(TE); Pulse Ox 98% on R/A; Weight 65.77 kg ca1 (R); Height 5 ft. 9 in. (175.26 cm) (R); Pain 4/10; 12:05 BP 117 / 69; Pulse 89; Resp 17; Temp 98; Pulse Ox 98% ; bp 10:31 Body Mass Index 21.41 (65.77 kg, 175.26 cm) ca1 ED Course: 10:28 Patient arrived in ED. ag5 10:33 Triage completed. ca1 10:34 Arm band placed on right wrist. ca1 10:35 Dion Parrish, MELANIE is Primary Nurse. bp 10:36 Akash Fuentes NP is PHCP. pm1 10:36 Frankie Wick MD is Attending Physician. pm1 10:36 Patient has correct armband on for positive identification. Bed in low position. Call bp light in reach. Side rails up X2. 11:00 Hand Right 3 View XRAY Sent. bp 11:07 Hand Right 3 View XRAY In Process Unspecified. EDMS 12:05 No provider procedures requiring assistance completed. Patient did not have IV access bp during this emergency room visit. Administered Medications: 10:59 Drug: Tetanus-Diphtheria Toxoid Adult 0.5 ml {Vegetable Preparer: [employer]. Exp: bp 06/21/2021. Lot #: [id number]. } Route: IM; Site: right deltoid; 11:46 Follow up: Response: No adverse reaction bp 11:00 Drug: [place] 5 mg-325 mg 1 tabs Route: PO; bp 11:46 Follow up: Response: Pain is decreased bp Point of Care Testing: Blood Glucose: 10:37 Blood Glucose: 51 mg/dL; ca1 Ranges: Outcome: 11:56 Discharge ordered by MD. pm1 12:05 Discharged to home ambulatory, with family. bp 12:05 Condition: stable 12:05 Discharge instructions given to patient, family, Instructed on discharge instructions, follow up and referral plans. medication usage, wound care, Demonstrated understanding of instructions, follow-up care, medications, wound care, Prescriptions given X 1. 12:09 Patient left the ED. bp Signatures: Dispatcher [employer] EDMS Akash Fuentes, HUNTER MAIL OPENER pm1 Dion Parrish RN RN bp Jhoana Lemos RN RN ca1 Ortega Betancourt ag5 Corrections: (The following items were deleted from the chart) 10:34 10:31 BP 108 / 83; Pulse 100bpm; Resp 19bpm; Spontaneous; Pulse Ox 98% RA; Temp 97.8F ca1 Temporal; 65.77 kg Reported; Height 5 ft. 9 in. Reported; BMI: 21.4; Pain 4/10; ca1 10:37 10:31 Acuity: TOI 4 ca1 ca1
--- NOTE | 2019-11-02 11:57 | EDPHYS ---
Physician Documentation [facility] Name: Surjit Stubbs Age: 44 yrs Sex: Male : 1975 Arrival Date: 11/02/2019 Time: 10:28 Bed 20 Private MD: ED Physician Frankie Wick HPI: 11/01 10:52 This 44 yrs old Male presents to ER via Ambulatory with complaints of Finger pm1 Laceration. 10:52 The patient or guardian reports a laceration. The complaints affect the right middle pm1 finger. Context: The problem was sustained at home, resulted from reaching into bag in trunk. Knife present in bag resulting in cut to third right finger tip. Onset: The symptoms/episode began/occurred yesterday. Modifying factors: The symptoms are alleviated by pressure to area, the symptoms are aggravated by nothing. Associated signs and symptoms: Pertinent negatives: cyanosis distally, decreased sensation distally, fever, numbness distally, tingling distally. The patient has not recently seen a physician. Historical: - Allergies: 10:34 tramadol; ca1 - Home Meds: 10:34 acetaminophen-codeine 300-60 mg Oral tab [Active]; [place] Thyroid 60 mg Oral tab ca1 [Active]; gabapentin 100 mg Oral cap [Active]; gemfibrozil 600 mg Oral tab 1 tab 2 times per day [Active]; Glucagon Emergency Kit (human) 1 mg IM kit 1 mL [Active]; Levemir subcutaneous [Active]; levetiracetam 500 mg Oral tab 1 tab 2 times per day [Active]; Novolog Sub-Q [Active]; - PMHx: 10:34 Diabetes - IDDM; High Cholesterol; Hypothyroidism; neuropathy; Seizures; ca1 - PSHx: 10:34 Adenoids; ca1 - Immunization history:: Adult Immunizations not up to date, Last tetanus immunization: up to date. - Social history:: Smoking status: Patient reports the use of cigarette tobacco products, smokes two packs cigarettes per day. ROS: 10:52 Constitutional: Negative for fever, chills, and weight loss. pm1 10:52 Neuro: Negative for headache, weakness, numbness, tingling, and seizure. 10:52 MS/extremity: Positive for laceration, pain, of the right middle finger, Negative for deformity. 10:52 Skin: Positive for laceration(s), of the right middle finger. 10:52 All other systems are negative. Exam: 10:52 Constitutional: This is a well developed, well nourished patient who is awake, alert, pm1 and in no acute distress. Head/Face: Normocephalic, atraumatic. 10:52 Cardiovascular: Exam negative for acute changes, Rate: normal, Rhythm: regular, Pulses: no pulse deficits are appreciated. 10:52 Respiratory: Exam negative for acute changes, respiratory distress, shortness of breath. 10:52 Musculoskeletal/extremity: Extremities: grossly normal except: noted in the small avulsion to distal tip of right middle finger: There is no evidence of decreased ROM, deformity. 10:52 Neuro: Exam negative for acute changes, Orientation: is normal, Mentation: is normal, Motor: is normal, moves all fours, Gait: is steady, at a normal pace, without difficulty. Vital Signs: 10:31 BP 108 / 83; Pulse 103; Resp 19 S; Temp 97.8(TE); Pulse Ox 98% on R/A; Weight 65.77 kg ca1 (R); Height 5 ft. 9 in. (175.26 cm) (R); Pain 4/10; 12:05 BP 117 / 69; Pulse 89; Resp 17; Temp 98; Pulse Ox 98% ; bp 10:31 Body Mass Index 21.41 (65.77 kg, 175.26 cm) ca1 MDM: 10:36 Patient medically screened. pm1 11:44 Data reviewed: vital signs. Data interpreted: Pulse oximetry: on room air is 98 %. pm1 Interpretation: normal. 11:50 ED course: Avulsion to right third finger tip that is not bleeding. Well formed scab at pm1 site of injury. No suturing required. 11:56 Counseling: I had a detailed discussion with the patient and/or guardian regarding: the pm1 historical points, exam findings, and any diagnostic results supporting the discharge/admit diagnosis, lab results, radiology results, the need for outpatient follow up, to return to the emergency department if symptoms worsen or persist or if there are any questions or concerns that arise at home. 11/01 10:48 Order name: Glucose, Ancillary Testing; Complete Time: 10:51 EDMD 11/01 12:00 Order name: Glucose, Ancillary Testing; Complete Time: 12:04 EDMS 11/01 10:52 Order name: Hand Right 3 View XRAY; Complete Time: 11:39 pm1 11/01 11:44 Order name: Glucose Level; Complete Time: 11:49 pm1 Administered Medications: 10:59 Drug: Tetanus-Diphtheria Toxoid Adult 0.5 ml {Choker Setter: [employer]. Exp: bp 06/21/2021. Lot #: [id number]. } Route: IM; Site: right deltoid; 11:46 Follow up: Response: No adverse reaction bp 11:00 Drug: [place] 5 mg-325 mg 1 tabs Route: PO; bp 11:46 Follow up: Response: Pain is decreased bp Point of Care Testing: Blood Glucose: 10:37 Blood Glucose: 51 mg/dL; ca1 Ranges: Critical Glucose Levels:Adult <50 mg/dl or >400 mg/dl <40 mg/dl or >180 mg/dl Disposition: 13:01 Co-signature as Attending Physician, Frankie Wick MD. rn Disposition: 11/02/19 11:56 Discharged to Home. Impression: Laceration without foreign body of right index finger without damage to nail. - Condition is Stable. - Discharge Instructions: Nonsutured Laceration Care. - Prescriptions for Keflex 500 mg Oral Capsule - take 1 capsule by ORAL route every 8 hours for 10 days; 30 capsule. - Medication Reconciliation Form, Thank You Letter, Antibiotic Education, Prescription Opioid Use form. - Follow up: Emergency Department; When: As needed; Reason: Worsening of condition. Follow up: Private Physician; When: 2 - 3 days; Reason: Recheck today's complaints, Continuance of care, Re-evaluation by your physician. - Problem is new. - Symptoms have improved. Signatures: Dispatcher [employer] [facility] Frankie Wick MD MD rn Marinas, Patrick, BOX PRINTER BOX PRINTER pm1 Dion Parrish RN RN bp Jhoana Lemos RN RN ca1 Corrections: (The following items were deleted from the chart) 12:09 11:56 11/02/2019 11:56 Discharged to Home. Impression: Laceration without foreign body bp of right index finger without damage to nail. Condition is Stable. Discharge Instructions: Nonsutured Laceration Care. Prescriptions for Keflex 500 mg Oral Capsule - take 1 capsule by ORAL route every 8 hours for 10 days; 30 capsule. and Forms are Medication Reconciliation Form, Thank You Letter, Antibiotic Education, Prescription Opioid Use. Follow up: Emergency Department; When: As needed; Reason: Worsening of condition. Follow up: Private Physician; When: 2 - 3 days; Reason: Recheck today's complaints, Continuance of care, Re-evaluation by your physician. Problem is new. Symptoms have improved. pm1 13:36 11:50 ED course: Avulsion to right second finger tip that is not bleeding. Well formed pm1 scab at site of injury. No suturing required. pm1
[2019-11-02 12:21] VITALS: O2SAT 98
[2019-11-02 12:23] VITALS: BP 117/69; TEMP 98
== END 2019-11-02 12:09 | disposition home or self-care (01) ==
LOC: ER 10:26
DX: S61.210A Laceration without foreign body of right index finger without damage to nail, initial encounter (principal); W26.0XXA Contact with knife, initial encounter; Y93.89 Activity, other specified; Y92.9 Unspecified place or not applicable; E78.00 Pure hypercholesterolemia, unspecified; E11.9 Type 2 diabetes mellitus without complications; Z79.4 Long term (current) use of insulin; E03.9 Hypothyroidism, unspecified; G40.909 Epilepsy, unspecified, not intractable, without status epilepticus; Z88.5 Allergy status to narcotic agent; F17.210 Nicotine dependence, cigarettes, uncomplicated; Z23 Encounter for immunization
CPT/HCPCS: 82947; 90471; 90714; 99283

== ENCOUNTER 2019-11-16 09:13 | Emergency (ER) | payer SELFPAY ==
--- OUTSIDE RECORDS SUMMARY | 2019-11-16 09:15 | XMS REPORT | Clinical Summary ---
:1975 Author Organization [facility] Address [address] [place] [address] Care Team Providers Name Role Phone Unavailable [...] Not on file Results Not on fileafter 11/15/2018 Advance Directives For more information, please contact:[facility] Clinical DataBoundary Community HospitalRegulus Therapeutics [address] [place] [address] [place] [phone] Code Status Date Activated Date Inactivated Comments Full Code 02/11/2018 10:27 PM 02/13/2018 7:55 PM This code status was determined by: Patient
--- OUTSIDE RECORDS SUMMARY | 2019-11-16 09:17 | XMS REPORT | Continuity of Care Document ---
:1975 Author Organization [facility] t Address [address] [place] [address] [address]. [address] [place] [address] Care Team Providers Name Role Phone LEONID [...] [facility]08 [facility] 00 [place] Acute Acute Disease Active 2017-[address] [facility] [address] encephalop encephalop 0-08 [facility] - athy athy 00:00: Medical 00 [place] Hyperglyce Hyperglyce Disease Active 2017-[address] yvan yvan 0-08 [facility] 00 [place] Diabetes Diabetes Disease Active 2017[facility] 00 [place] Hyperchole Hyperchole Disease Active 2017-[address] steremia steremia 0-08 [facility] 00 [place] Thyroid Thyroid Disease Active 2017-[address] [facility] disease disease 0-08 [facility]: [facility] 00 [place] Leukocytos Leukocytos Disease Active 2017-[address] is is 0-08 [facility] 00:[facility]: [facility] 00 [place] Anemia Anemia Disease Active 2017-[address] [facility] 0-08 [facility] 00:[facility]: [facility] 00 [place] Convulsive Convulsive Disease Active 2017-[address] seizure seizure 0-07 [facility] - disorder disorder 00:00: Medica l with with 00 Center status status epilepticu epilepticu s s Allergies, Adverse Reactions, Alerts This patient has no known allergies or adverse reactions. Social History Social Habit Start Date Stop Date Quantity Comments Source Sex Assigned At [facility] Smoking Status Start Date Stop Date Source Current every day smoker 2018-02-13 00:00:00 [facility] Medications Ordered Filled Start Stop Current [...] Source Name Name Influenza Four-QIV 2018-02-13 Completed [facility] Non-PF 5+ YR 00:00:00 Medical Cent er Procedures This patient has no known procedures. Results Test Description Test Time Test Comments Results Result Comments Source BLOOD CULTURE 2018-02-17 06:00:00 Test Item Value Reference Range Interpretation Comme nts CULTURE (BEAKER) (test code = 1095) No growth in 5 days URINE [id number] 10:25:00 Test Item Value Reference Range Interpretation Comments CULTURE (BEAKER) (test code = 1095) No growth POCT-GLUCOSE [id number] 17:10:00 Test Item Value Reference Range Interpretation Comments POC-GLUCOSE METER 232 mg/dL 70-[address] [facility] [address] ([facility] (test code = DARRYLANA Gareth [facility] 153) [address] CT, CTANGIO [id number] 16:41:00CTV pleaseFINAL REPORT CTV brain 02/13/2018 4:35 [...] Sky Verified Date/Time: 02/13/2018 16:41:24 Reading Location: [facility] Radiology Reading Room POCT-GLUCOSE [id number] 13:07:00 Test Item Value Reference Range Interpretation Comments POC-GLUCOSE METER 311 mg/dL 70-110 H Notified Gareth Coronado MD/TESTED (GLORIA) (test code = AT [facility] [address] [facility] 15[facility]) [facility] [address] IRON, TIBC, % SAT. (WITHOUT FERRITIN)2018-02-13 10:10:00 Test Item Value Reference Range Interpretation Comments IRON ([facility] (test code = 547) 49 ug/dL 40-160 TOTAL IRON BINDING CAPACITY 231 ug/dL 250-450 L ([facility] (test code = 769) IRON % SATURATION (2) (BEAKER) 21 % 20-55 (test code = 2590) POCT-GLUCOSE [id number] 08:50:00 Test Item Value Reference Range Interpretation Comments POC-GLUCOSE METER 348 mg/dL 70-110 H Notified R N MD/TESTED (BEAKER) (test code = [facility] [address] [facility]) [place] [address] BASIC METABOLIC [id number] 08:31:00 Test Item Value Reference Range Interpretation [...] NOT APPLICABLE FOR DIALYSIS PATIEN TS. LIPID [id number] 08:31:00 Test Item Value Reference Range Interpretation [...] 130-159 High 160-189 Very High >=190IMMATURE RETICULOCYTE [id number] 08:16:00 Test Item Value Reference Range Interpretation Comments IMMATURE RETIC FRACTION (BEAKER) 8.600 % 2.300-13.400 (test code = 1447) RETICULOCYTE COUNT PCT (BEAKER) (test 1.4 % 0.5-1.8 code = 575) CBC W/PLT COUNT & AUTO [id number] 08:16:00 Test Item Value Reference Range Interpretation [...] PERCENT (BEAKER) (test code = 2801) POCT-GLUCOSE [id number] 21:18:00 Test Item Value Reference Range Interpretation Comments POC-GLUCOSE METER 226 mg/dL 70-[address] [facility] 67[address] (BEAKER) (test code = CESAR [place] 1538) [address] MR, BRAIN, WITHOUT [id number] 19:43:00FINAL REPORT MRI brain without contrast INDICATION: [...] thrombus cannot be excluded. The major proximal port graham of [place] flow voids are maintained. Mild [...] MDReport Verified Date/Time: 02/12/2018 19:43:32 Reading Location: [facility] Radiology Reading Room POCT-GLUCOSE [id number] 19:01:00 Test Item Value Reference Range Interpretation Comments POC-GLUCOSE METER 362 mg/dL 70-[address] [facility] [address] ([facility] (test code = CESAR Servin [place] 1538) [address] EEG AWAKE AND [id number] 17:46:00Reason for exam:->SeizureShould this be performed at the bedside?->YesCHI [facility] EEG REPORTDATE OF TEST: [id number] OF REPORT: [id number]: [id number]: [id number] time: 14:04Stop time: 14:24ICD-10: R56.9CPT Code: 40327OIRKNXB: 40 y old 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, [...] this report.Queenie Loco MD, PhDClinical Neurophysiology/Epilepsy AttendingCHI [facility] POCT- GLUCOSE [id number] 15:33:00 Test Item Value Reference Range Interpretation Comments POC-GLUCOSE METER 213 mg/dL 70-[address] [facility] 67 (BEAKER) (test code = CESAR Servin [facility] 1538) [address] TSH/FREE T4 IF [id number] 09:35:00 Test Item Value Reference Range Interpretation Comments THYROID STIMULATING HORMONE 4.03 uIU/mL 0.35-4.94 (BEAKER) (test code = 772) HEMOGLOBIN [id number] 08:47:00 Test Item Value Reference Range Interpretation Comments HEMOGLOBIN A1C (BEAKER) (test code = 6.5 % 4.3-6.1 H 368) POCT-GLUCOSE [id number] 07:55:00 Test Item Value Reference Range Interpretation Comments POC-GLUCOSE METER 219 mg/dL 70-[address] [facility] 67 (BEAKER) (test code = DARRYLANA Gareth [facility] 1538) [address] [id number] 05:00:00 Test Item Value Reference Range Interpretation Comments MAGNESIUM (BEAKER) (test code = 2.1 mg/dL 1.6-2.6 627) BASIC METABOLIC [id number] 05:00:00 Test Item Value Reference Range Interpretation [...] PATIEN TS. CBC W/PLT COUNT & AUTO [id number] 04:40:00 Test Item Value Reference Range Interpretation [...] PERCENT (BEAKER) (test code = 2801) POCT-GLUCOSE [id number] 04:31:00 Test Item Value Reference Range Interpretation Comments POC-GLUCOSE METER 183 mg/dL 70-[address] [facility] 67[address] (BEAKER) (test code = CESAR Servin [facility] 1538) [address] RAD, ABDOMEN/KUB, 1 VIEW [id number] 01:33:00Reason for exam:->Abdominal distension, obtundationFINAL REPORT CLINICAL [...] Leon Verified Date/Time: 02/12/2018 01:33:19 Reading Location: [facility] [address] [place] [address] Reading Room -GLUCOSE [id number] 00:49:00 Test Item Value Reference Range Interpretation Comments POC-GLUCOSE METER 346 mg/dL 70-[address] [facility] 67[address] (BEAKER) (test code = [place] 1538) [address] CBC W/PLT COUNT & AUTO [id number] 00:44:00 Test Item Value Reference Range Interpretation [...] (test code = 2801) RAPID DRUG SCREEN, [id number] 00:35:00 Test Item Value Reference Range Interpretation [...] situations. Chain of custody not maintained. Some wcbb-bog-ukgawwl medications, as well as adulterants, may cause inaccurate results. Clinical correlation should be applied. A more comprehensive drug screen or confirmation of a detected drug may be performed upon request. TROPONIN [id number] 00:15:00 Test Item Value Reference Range Interpretation [...] acute neurological disease, and persistent tachyarrhythmia.COMPREHENSIVE METABOLIC [id number] 00:09:00 Test Item Value Reference Range Interpretation [...] APPLICABLE FOR DIALYSIS PATIEN TS. URINALYSIS W/ [id number] 00:06:00 Test Item Value Reference Range Interpretation [...] = 2795) RAD, CHEST, 1 VIEW, NON [id number] 23:11:00Reason for exam:->Obtundation with coarse respirations, baselineShould this be performed at the [facility]?->YesFINAL REPORT RAD, CHEST, 1 VIEW, NON DEPT INDICATION: Obtundation with coarserespirations, baseline COMPARISON: None. FINDINGS: Portable frontal view of the chest. IMPRESSION: Support Lines: None. Lungs and pleura: Clear lungs. No pneumothorax.Heart and mediastinum: Unremarka ble. Additional findings: Fluid and gaseous distention of the gastric lumen. Signed: JR Lozano Robert MDReport Verified Date/Time: 02/11/2018 23:11:04 Reading Location: [address]
--- NOTE | 2019-11-16 10:01 | ER ---
Nurse's Notes [facility] Name: Surjit Stubbs Age: 44 yrs Sex: Male : 1975 Arrival Date: 11/16/2019 Time: 09:15 Bed 8 Private MD: Diagnosis: Hypoglycemia, unspecified;Dehydration Presentation: 11/15 09:15 Chief complaint: EMS states: FOUND HYPOGLYCEMIC AT HOME. Coronavirus screen: Proceed bp with normal triage. Ebola Screen: No symptoms or risks identified at this time. Initial Sepsis Screen: Does the patient meet any 2 criteria? HR > 90 bpm. Does the patient have a suspected source of infection? No. Patient's initial sepsis screen is negative. Risk Assessment: Do you want to hurt yourself or someone else? Patient reports no desire to harm self or others. Onset of symptoms is unknown. Care prior to arrival: IV initiated. 18 GA, in the right antecubital area, Glucose check: 192. 09:15 Method Of Arrival: EMS: [facility] bp 09:15 Acuity: TOI 3 bp Triage Assessment: 09:18 General: Appears in no apparent distress. comfortable, Behavior is cooperative, bp appropriate for age, anxious. Pain: Denies pain. EENT: No deficits noted. Neuro: Level of Consciousness is awake, alert, obeys commands, Oriented to person, place, time, situation, Appropriate for age. Cardiovascular: Rhythm is sinus tachycardia. Respiratory: No deficits noted. GI: No deficits noted. : No deficits noted. Derm: No deficits noted. Musculoskeletal: No deficits noted. Historical: - Allergies: 09:18 tramadol; bp - PMHx: 09:18 Diabetes - IDDM; High Cholesterol; Hypothyroidism; neuropathy; Seizures; bp - Immunization history:: Adult Immunizations unknown. - Social history:: Smoking status: Patient reports the use of cigarette tobacco products, unknown amount. - Family history:: not pertinent. - Hospitalizations: : No recent hospitalization is reported. Screenin:22 Abuse screen: Denies threats or abuse. Denies injuries from another. Nutritional bp screening: No deficits noted. Tuberculosis screening: No symptoms or risk factors identified. Fall Risk None identified. Assessment: :22 General: SEE TRIAGE NOTE. bp 09:25 Reassessment: PT GIVEN PO MEAL. bp 09:58 Reassessment: PT REFUSING FURTHER TREATMENT. PT AOx4, AMBULATORY WITH STEADY GAIT. PT bp URGED TO REMAIN BUT DECLINED. PT INFORMED HE SHOULD RETURN IF S/S RETURN OR WORSEN. PT SIGNED OUT AMA. Vital Signs: 09:15 BP 138 / 92; Pulse 108; Resp 18; Temp 97.7; Pulse Ox 99% ; bp 09:58 BP 150 / 90; Pulse 95; Resp 17; Temp 98; Pulse Ox 99% ; bp ED Course: 09:15 Patient arrived in ED. bp 09:15 Maintain EMS IV. Dressing intact. Good blood return noted. Site clean \T\ dry. Gauge \T\ bp site: 18 G R AC. 09:17 Frankie Wick MD is Attending Physician. rn 09:18 Triage completed. bp 09:22 Arm band placed on. bp 09:22 Patient has correct armband on for positive identification. Placed in gown. Bed in low bp position. Call light in reach. Side rails up X2. 09:40 Dion Parrish, RN is Primary Nurse. bp 10:00 No provider procedures requiring assistance completed. IV discontinued, intact, bp bleeding controlled, No redness/swelling at site. Pressure dressing applied. Administered Medications: No medications were administered Outcome: 10:00 AMA AMA form signed bp 10:00 Condition: stable 10:01 Patient left the ED. bp Signatures: Frankie Wick MD MD rn Peltier, Brian, MELANIE RN bp
--- NOTE | 2019-11-16 10:01 | EDPHYS ---
Physician Documentation [facility] Name: Surjit Stubbs Age: 44 yrs Sex: Male : 1975 Arrival Date: 11/16/2019 Time: 09:15 Bed 8 Private MD: ED Physician Frankie Wick HPI: 11/15 09:17 This 44 yrs old Male presents to ER via Unassigned with complaints of Low rn Blood Sugar. 09:17 The patient or guardian reports hypoglycemia. Onset: The symptoms/episode rn began/occurred just prior to arrival. Current symptoms: In the emergency department the patient's symptoms have resolved. The patient has experienced similar episodes in the past. The patient has not recently seen a physician. Reports low blood sugar, states happens almost nightly, has not changed insulin doses recently, drinks frequently, found with empty liquor bottles in home by EMS, glucose low, given D10, now back to baseline. Reports tends to run low overnight. Also reports his house does not have air conditioning at this time.. Historical: - Allergies: 09:18 tramadol; bp - PMHx: 09:18 Diabetes - IDDM; High Cholesterol; Hypothyroidism; neuropathy; Seizures; bp - Immunization history:: Adult Immunizations unknown. - Social history:: Smoking status: Patient reports the use of cigarette tobacco products, unknown amount. - Family history:: not pertinent. - Hospitalizations: : No recent hospitalization is reported. ROS: 09:17 Constitutional: Negative for fever, chills, and weight loss, Neck: Negative for injury, rn pain, and swelling, Cardiovascular: Negative for chest pain, palpitations, and edema, Respiratory: Negative for shortness of breath, cough, wheezing, and pleuritic chest pain, Abdomen/GI: Negative for abdominal pain, nausea, vomiting, diarrhea, and constipation, MS/Extremity: Negative for injury and deformity, Skin: Negative for injury, rash, and discoloration, Neuro: Negative for headache, weakness, numbness, tingling, and seizure. Exam: 09:17 Constitutional: This is a well developed, well nourished patient who is awake, alert, rn and in no acute distress. Head/Face: Normocephalic, atraumatic. ENT: dry MM Cardiovascular: Tachycardic, regular Respiratory: Speaking full sentences, No increased work of breathing, no retractions or nasal flaring. Abdomen/GI: soft, non-tender, small 1 cm diameter superficial burn to anterior abdomen, appears well and non-infected. MS/ Extremity: Pulses equal, no cyanosis. Neuro: Awake and alert, GCS 15, oriented to person, place, time, and situation. Cranial nerves II-XII grossly intact. Motor strength 5/5 in all extremities. Sensory grossly intact. Vital Signs: 09:15 BP 138 / 92; Pulse 108; Resp 18; Temp 97.7; Pulse Ox 99% ; bp 09:58 BP 150 / 90; Pulse 95; Resp 17; Temp 98; Pulse Ox 99% ; bp MDM: 09:17 Patient medically screened. rn 09:26 ED course: Pt states feels fine, back to baseline. . rn 09:57 Differential diagnosis: hypoglycemic episode. Differential diagnosis: dehydration, rn alcohol related problem. Data reviewed: vital signs, nurses notes. Counseling: I had a detailed discussion with the patient and/or guardian regarding: the historical points, exam findings, and any diagnostic results supporting the discharge/admit diagnosis, lab results, the need for outpatient follow up, to return to the emergency department if symptoms worsen or persist or if there are any questions or concerns that arise at home. Response to treatment: the patient's symptoms have resolved after treatment. ED course: Pt refuses to wait and stay any longer, wants to go home, states someone coming by his house to buy a motor, needs to leave, contacted family to pick him up. . 11/15 09:39 Order name: Glucose, Ancillary Testing; Complete Time: 09:47 EDMS 11/15 09:17 Order name: PO challenge; Complete Time: 09:26 rn 11/15 09:17 Order name: Glucose Level; Complete Time: 09:26 rn Administered Medications: No medications were administered Disposition: 11/16/19 09:59 Patient has left against medical advice. Impression: Hypoglycemia, unspecified, Dehydration. - Patients states they are going to Home. - Condition is Stable. - Discharge Instructions: Dehydration, Adult, Hypoglycemia, Blood Glucose Monitoring, Adult. Follow up: Private Physician; When: As needed; Reason: Recheck today's complaints, Re-evaluation by your physician. - Problem is new. - Symptoms have improved. Signatures: Dispatcher [employer] EDMS WickFrankie MD MD rn Peltier, Brian, RN RN bp Corrections: (The following items were deleted from the chart) 10:01 09:59 11/16/2019 09:59 Patients has left against medical advice. Impression: bp Hypoglycemia, unspecified; Dehydration. Patient states they are going to Home. Condition is Stable. Follow up: Private Physician; When: As needed; Reason: Recheck today's complaints, Re-evaluation by your physician. Problem is new. Symptoms have improved. rn
[2019-11-16 10:05] VITALS: O2SAT 99
[2019-11-16 10:07] VITALS: BP 150/90; TEMP 98
== END 2019-11-16 10:01 | disposition left against medical advice (07) ==
LOC: ER 09:13
DX: E11.649 Type 2 diabetes mellitus with hypoglycemia without coma (principal); E86.0 Dehydration; Z88.5 Allergy status to narcotic agent; Z72.0 Tobacco use
CPT/HCPCS: 82947; 99284

== ENCOUNTER 2019-12-09 10:03 | Emergency (ER) | payer SELFPAY ==
[2019-12-09] MEDS ORDERED: D5 0.45 NS 1,000 ML IV ONE (10:38)
[2019-12-09 10:54] LABS: Absolute Lymphocytes (CBC) 0.7 K/uL (0.7-4.9); Basophils % 0.5 % (0-1.3); MPV 9.2 fL (7.6-11.3); RBC Red Blood Cell Count 3.89 M/uL (4.33-5.43)
--- NOTE | 2019-12-09 11:07 | RAD REPORT ---
EXAM DESCRIPTION: RAD - Chest Single View - 12/09/2019 11:00 am CLINICAL HISTORY: COUGH COMPARISON: February 2018, August 2017 TECHNIQUE: AP portable chest image was obtained 12/09/2019 11:00 am . FINDINGS: No focal lung parenchymal process. Interstitial pattern similar to comparison. Heart and v asculature are normal. No measurable pleural effusion and no pneumothorax. No acute bony abnormality seen. No acute aortic findings suspected. IMPRESSION: No acute cardiopulmonary process. No significant interval changes.
[2019-12-09 11:13] LABS: ALT/SGPT 139 U/L (12-78); AST/SGOT 243 U/L (15-37); Albumin 3.2 g/dL (3.4-5.0); Alkaline Phosphatase 195 U/L (45-117); BUN Blood Urea Nitrogen 11 mg/dL (7-18); Bicarbonate 29 mmol/L (21-32); Bilirubin Direct 0.2 mg/dL (0-0.2); Bilirubin Total 0.4 mg/dL (0.2-1.0); Glucose Level 83 mg/dL (74-106); Magnesium 2.1 mg/dL (1.8-2.4); Potassium 3.8 mmol/L (3.5-5.1); Protein, Total 7.2 g/dL (6.4-8.2); Sodium Level 142 mmol/L (136-145); Troponin (Emerg Dept Use Only) < 0.02 ng/mL (0.0-0.045)
--- NOTE | 2019-12-09 11:56 | EDPHYS ---
Physician Documentation [facility] Name: Surjit Stubbs Age: 44 yrs Sex: Male : 1975 Arrival Date: 12/09/2019 Time: 10:04 Bed 18 Private MD: ED Physician Jame Vaughan HPI: 12/08 11:51 This 44 yrs old Male presents to ER via EMS with complaints of Low Blood zarina Sugar. 11:51 The patient or guardian reports hypoglycemia, that was potentially precipitated by zarina adjusting medication dose. Onset: The symptoms/episode began/occurred just prior to arrival. Associated signs and symptoms: Pertinent positives: anorexia. Current symptoms: In the emergency department the patient's symptoms have improved, moderately, is more alert. The patient has experienced similar episodes in the past, multiple times. Historical: - Allergies: 10:17 tramadol; iw - Home Meds: 10:17 acetaminophen-codeine 300-60 mg Oral tab [Active]; [place] Thyroid 60 mg Oral tab iw [Active]; gabapentin 100 mg Oral cap [Active]; gemfibrozil 600 mg Oral tab 1 tab 2 times per day [Active]; Glucagon Emergency Kit (human) 1 mg IM kit 1 mL [Active]; Levemir subcutaneous [Active]; levetiracetam 500 mg Oral tab 1 tab 2 times per day [Active]; Novolog Sub-Q [Active]; - PMHx: 10:17 Diabetes - IDDM; High Cholesterol; Hypothyroidism; neuropathy; Seizures; iw - Immunization history:: Adult Immunizations unknown. - Family history:: not pertinent. - Social history:: Smoking status: unknown. ROS: 11:51 Constitutional: Negative for fever, chills, and weight loss, Eyes: Negative for injury, zarina pain, redness, and discharge, ENT: Negative for injury, pain, and discharge, Neck: Negative for injury, pain, and swelling, Cardiovascular: Negative for chest pain, palpitations, and edema, Respiratory: Negative for shortness of breath, cough, wheezing, and pleuritic chest pain, Abdomen/GI: Negative for abdominal pain, nausea, vomiting, diarrhea, and constipation, Back: Negative for injury and pain, : Negative for injury, bleeding, discharge, and swelling, MS/Extremity: Negative for injury and deformity, Skin: Negative for injury, rash, and discoloration, Psych: Negative for depression, anxiety, suicide ideation, homicidal ideation, and hallucinations, Allergy/Immunology: Negative for hives, rash, and allergies, Hematologic/Lymphatic: Negative for swollen nodes, abnormal bleeding, and unusual bruising. 11:51 Neuro: Positive for altered mental status, weakness. 11:51 Endocrine: Positive for hypoglycemia. Exam: 11:52 Constitutional: This is a well developed, well nourished patient who is awake, alert, zarina and in no acute distress. Head/Face: Normocephalic, atraumatic. Eyes: Pupils equal round and reactive to light, extra-ocular motions intact. Lids and lashes normal. Conjunctiva and sclera are non-icteric and not injected. Cornea within normal limits. Periorbital areas with no swelling, redness, or edema. ENT: Nares patent. No nasal discharge, no septal abnormalities noted. Tympanic membranes are normal and external auditory canals are clear. Oropharynx with no redness, swelling, or masses, exudates, or evidence of obstruction, uvula midline. Mucous membranes moist. Neck: Trachea midline, no thyromegaly or masses palpated, and no cervical lymphadenopathy. Supple, full range of motion without nuchal rigidity, or vertebral point tenderness. No Meningismus. Chest/axilla: Normal chest wall appearance and motion. Nontender with no deformity. No lesions are appreciated. Cardiovascular: Regular rate and rhythm with a normal S1 and S2. No gallops, murmurs, or rubs. Normal PMI, no JVD. No pulse deficits. Respiratory: Lungs have equal breath sounds bilaterally, clear to auscultation and percussion. No rales, rhonchi or wheezes noted. No increased work of breathing, no retractions or nasal flaring. Abdomen/GI: Soft, non-tender, with normal bowel sounds. No distension or tympany. No guarding or rebound. No evidence of tenderness throughout. Back: No spinal tenderness. No costovertebral tenderness. Full range of motion. Skin: Warm, dry with normal turgor. Normal color with no rashes, no lesions, and no evidence of cellulitis. MS/ Extremity: Pulses equal, no cyanosis. Neurovascular intact. Full, normal range of motion. Neuro: Awake and alert, GCS 15, oriented to person, place, time, and situation. Cranial nerves II-XII grossly intact. Motor strength 5/5 in all extremities. Sensory grossly intact. Cerebellar exam normal. Normal gait. Psych: Awake, alert, with orientation to person, place and time. Behavior, mood, and affect are within normal limits. Vital Signs: 10:24 BP 130 / 88; Pulse 77; Resp 16; Temp 97.8; Pulse Ox 98% on R/A; iw MDM: 10:06 Patient medically screened. [facility] 11:53 Differential diagnosis: hyperglycemia, hypothyroidism. Data reviewed: vital signs, [facility] nurses notes, lab test result(s), EKG, radiologic studies, plain films. 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 Test interpretation: by ED physician or midlevel provider: ECG, plain radiologic studies. Counseling: I had a detailed discussion with the patient and/or guardian regarding: the historical points, exam findings, and any diagnostic results supporting the discharge/admit diagnosis, lab results, radiology results, the need for outpatient follow up, for definitive care, a family practitioner. 12/08 10:08 Order name: Basic Metabolic Panel; Complete Time: 11:50 [facility] 12/08 10:08 Order name: CBC with Diff [facility] 12/08 10:08 Order name: LFT's; Complete Time: 11:50 [facility] 12/08 10:08 Order name: Magnesium; Complete Time: 11:50 [facility] 12/08 10:08 Order name: Troponin (emerg Dept Use Only); Complete Time: 11:50 [facility] 12/08 10:35 Order name: Glucose, Ancillary Testing; Complete Time: 11:50 [facility]UT 12/08 10:08 Order name: XRAY Chest (1 view); Complete Time: 11:50 [facility] 12/08 10:08 Order name: EKG; Complete Time: 10:09 [facility] 12/08 10:08 Order name: Cardiac monitoring; Complete Time: 11:02 [facility] 12/08 11:50 Order name: Diet Ada 1800 Maldonado; Complete Time: 11:50 [facility] 12/08 12:14 Order name: CBC Smear Scan EDUT 12/08 12:45 Order name: Glucose, Ancillary Testing EDUT 12/08 10:08 Order name: EKG - Nurse/Tech; Complete Time: 11:32 [facility] 12/08 10:08 Order name: IV Saline Lock; Complete Time: 11:02 [facility] 12/08 10:08 Order name: Labs collected and sent; Complete Time: 11: [facility] 12/08 10:08 Order name: O2 Per Protocol; Complete Time: 11: [facility] 12/08 10:08 Order name: O2 Sat Monitoring; Complete Time: 11: [facility] 12/08 10:08 Order name: Blood Glucose Level; Complete Time: 10:23 [facility] 12/08 10:08 Order name: Urine Dipstick-Ancillary (obtain specimen); Complete Time: 11:32 [facility] Administered Medications: 10:40 Drug: D5-1/2 NS 1000 ml Route: IV; Rate: 125 ml/hr; Site: right antecubital; iw Point of Care Testing: Blood Glucose: 10:24 Blood Glucose: 88 mg/dL; Ranges: Critical Glucose Levels:Adult <50 mg/dl or >400 mg/dl <40 mg/dl or >180 mg/dl Disposition: 12/09/19 11:55 Discharged to Home. Impression: Hypoglycemia, unspecified, Type 1 diabetes mellitus. - Condition is Stable. - Discharge Instructions: Type 1 Diabetes Mellitus, Diagnosis, Adult, Hypoglycemia, Blood Glucose Monitoring, Adult, Diabetes Mellitus and Food, Hypoglycemia, [id number], Type 1 Diabetes Mellitus, Self Care, Adult, Type 1 Diabetes Mellitus, Diagnosis, Adult, [id number], Type 1 Diabetes Mellitus, Self Care, Adult, [id number]. - Medication Reconciliation Form, Thank You Letter, Antibiotic Education, Prescription Opioid Use form. - Follow up: Private Physician; When: 2 - 3 days; Reason: Recheck today's complaints, Continuance of care, Re-evaluation by your physician. - Problem is new. - Symptoms have improved. Signatures: Dispatcher [employer] [facility] Jame Vaughan MD MD cha Williams, Irene RN RN iw Corrections: (The following items were deleted from the chart) 12:14 12:13 Manual Differential ordered. [facility] 13:26 11:55 12/09/2019 11:55 Discharged to Home. Impression: Hypoglycemia, unspecified; Type iw 1 diabetes mellitus. Condition is Stable. Forms are Medication Reconciliation Form, Thank You Letter, Antibiotic Education, Prescription Opioid Use. Follow up: Private Physician; When: 2 - 3 days; Reason: Recheck today's complaints, Continuance of care, Re-evaluation by your physician. Problem is new. Symptoms have improved. zarina
--- NOTE | 2019-12-09 11:56 | ER ---
Nurse's Notes [facility] Name: Surjit Stubbs Age: 44 yrs Sex: Male : 1975 Arrival Date: 12/09/2019 Time: 10:04 Bed 18 Private MD: Diagnosis: Hypoglycemia, unspecified;Type 1 diabetes mellitus Presentation: 12/08 10:06 Chief complaint: EMS states: called out for low blood sugar, was 29 on scene, gave 25 iw gm of D10, came up to 250, now down to 99. Risk Assessment: Do you want to hurt yourself or someone else? Patient reports no desire to harm self or others. 10:06 Acuity: TOI 3 iw 10:06 Method Of Arrival: EMS: [facility] iw 10:18 Coronavirus screen: Client denies travel out of the [place] in the last 14 days. Ebola iw Screen: Patient negative for fever greater than or equal to 101.5 degrees Fahrenheit, and additional compatible Ebola Virus Disease symptoms Patient denies exposure to infectious person. Patient denies travel to an Ebola-affected area in the 21 days before illness onset. No symptoms or risks identified at this time. Initial Sepsis Screen: Does the patient meet any 2 criteria? No. Patient's initial sepsis screen is negative. Does the patient have a suspected source of infection? No. Patient's initial sepsis screen is negative. Onset of symptoms was December 09, 2019. 10:40 Care prior to arrival: Medication(s) given: D10, 25 gm IV initiated. 18 GA, in the iw right forearm, Glucose check: 29. Historical: - Allergies: 10:17 tramadol; iw - Home Meds: 10:17 acetaminophen-codeine 300-60 mg Oral tab [Active]; [place] Thyroid 60 mg Oral tab iw [Active]; gabapentin 100 mg Oral cap [Active]; gemfibrozil 600 mg Oral tab 1 tab 2 times per day [Active]; Glucagon Emergency Kit (human) 1 mg IM kit 1 mL [Active]; Levemir subcutaneous [Active]; levetiracetam 500 mg Oral tab 1 tab 2 times per day [Active]; Novolog Sub-Q [Active]; - PMHx: 10:17 Diabetes - IDDM; High Cholesterol; Hypothyroidism; neuropathy; Seizures; iw - Immunization history:: Adult Immunizations unknown. - Family history:: not pertinent. - Social history:: Smoking status: unknown. Screenin:38 Abuse screen: Denies threats or abuse. Denies injuries from another. Tuberculosis jr10 screening: No symptoms or risk factors identified. Fall Risk Secondary diagnosis (15 points) impaired mobility, IV access (20 points). 13:26 Nutritional screening: No deficits noted. iw Assessment: 11:36 Reassessment: upon entering pt room to obtain EKG pt agitated and uncooperative. Pt jr10 reports that he wants to go "y'all can just go ahead and cut me loose, I don't want to be here." MD Clement notified and aware. Will speak with pt. General: Appears in no apparent distress. unkempt, Behavior is agitated, uncooperative, Smells of alcohol. General: Pt presents via EMS with reports of low BG. Pt states that he does not remember the events leading up to ED admission. Pt reports that he is a chronic alcoholic and that he has a hx of low BG. Pt agitated and not willing to answer other questions appropriately. Will await dispo. pt appears in NAD. . Pain: Denies pain. Neuro: No deficits noted. Cardiovascular: No deficits noted. Respiratory: No deficits noted. GI: No deficits noted. Abdomen is distended. : No deficits noted. EENT: No deficits noted. Derm: No deficits noted. Musculoskeletal: No deficits noted. 13:24 Reassessment: Patient appears in no apparent distress at this time. offered pt his iw lunch tray, pt states "I won't eat it, you can just unplug me and let me sit in the lobby". Vital Signs: 10:24 BP 130 / 88; Pulse 77; Resp 16; Temp 97.8; Pulse Ox 98% on R/A; iw ED Course: 10:04 Patient arrived in ED. iw 10:06 Jame Vaughan MD is Attending Physician. [facility] 10:07 Triage completed. iw 10:19 Arm band placed on. iw 10:23 Cheryl Block, RN is Primary Nurse. iw 10:38 Elizabeth Osborne, MELANIE is Primary Nurse. jr10 10:40 Maintain EMS IV. Dressing intact. Good blood return noted. Site clean \\T\\ dry. Gauge \\T\\ iw site: 18 RFA. 11:00 XRAY Chest (1 view) In Process Unspecified. EDMS 11:39 Patient has correct armband on for positive identification. Bed in low position. Call jr10 light in reach. Side rails up X2. Pulse ox on. NIBP on. 13:26 No provider procedures requiring assistance completed. IV discontinued, intact, iw bleeding controlled, No redness/swelling at site. Pressure dressing applied. Administered Medications: 10:40 Drug: D5-1/2 NS 1000 ml Route: IV; Rate: 125 ml/hr; Site: right antecubital; iw Point of Care Testing: Blood Glucose: 10:24 Blood Glucose: 88 mg/dL; iw Ranges: Outcome: 11:55 Discharge ordered by MD. srinivasan 13:26 Discharged to home ambulatory. iw 13:26 Condition: good 13:26 Discharge instructions given to patient, Instructed on discharge instructions, follow up and referral plans. 13:26 Patient left the ED. iw Signatures: Dispatcher [employer] EDMS Jame Vaughan MD MD cha Williams, Irene, RN RN iw Elizabeth Osborne, RN RN jr10 Corrections: (The following items were deleted from the chart) 13:24 10:24 BP 130 / 88; Pulse 77bpm; Resp 16bpm; Pulse Ox 98% RA; iw iw
[2019-12-09 12:14] LABS: Blood Morphology Comment NOT SEEN (NOT SEEN); Platelet Estimate ADEQ; Urine White Blood Cell Casts OK
--- OUTSIDE RECORDS SUMMARY | 2019-12-09 12:14 | XMS REPORT | Continuity of Care Document ---
:[address] [facility] t Address [address] [place] [address] Dr. Palma [address] [place] [address] Care Team Providers Name Role Phone LEONID [...] [facility]08 [facility] 00 [place] Acute Acute Disease Active 2017-[address] [facility] encephalop encephalop 0-08 [facility] - athy athy 00:00: Medical 00 [place] Hyperglyce Hyperglyce Disease Active 2017-[address] yvan yvan 0-08 [facility] 00 [place] Diabetes Diabetes Disease Active 2017[facility] 00 [place] Hyperchole Hyperchole Disease Active 2017-[address] steremia steremia 0-08 [facility] 00 [place] Thyroid Thyroid Disease Active 2017-[address] disease disease 0-08 [facility] 00 [place] Leukocytos Leukocytos Disease Active 2017-[address] is is 0-08 [facility] 00 [place] Anemia Anemia Disease Active 2017-[address] 0-08 [facility] 00 [place] Convulsive Convulsive Disease Active 2017-[address] seizure seizure 0-07 [facility] - disorder disorder 00:00: Medica l with with 00 Center status status epilepticu epilepticu s s Allergies, Adverse Reactions, Alerts This patient has no known allergies or adverse reactions. Social History Social Habit Start Date Stop Date Quantity Comments Source Sex Assigned At [facility] Smoking Status Start Date Stop Date Source Current every day smoker 2018-02-13 00:00:00 [facility] Medications Ordered Filled Start Stop Current [...] Source Name Name Influenza Four-QIV 2018-02-13 Completed [facility] Non-PF 5+ YR 00:00:00 Medical Cent er Procedures This patient has no known procedures. Results Test Description Test Time Test Comments Results Result Comments Source BLOOD CULTURE 2018-02-17 06:00:00 Test Item Value Reference Range Interpretation Comme nts CULTURE (BEAKER) (test code = 1095) No growth in 5 days URINE [id number] 10:25:00 Test Item Value Reference Range Interpretation Comments CULTURE (BEAKER) (test code = 1095) No growth POCT-GLUCOSE [id number] 17:10:00 Test Item Value Reference Range Interpretation Comments POC-GLUCOSE METER 232 mg/dL 70-110 H TESTED AT [facility] 6720 ([facility]) (test code = DARRYLAAN Gareth [facility] 153) [address] CT, CTANGIO [id number] 16:41:00CTV pleaseFINAL REPORT CTV brain 02/13/2018 4:35 [...] Sky Verified Date/Time: 02/13/2018 16:41:24 Reading Location: [facility] Radiology Reading Room POCT-GLUCOSE [id number] 13:07:00 Test Item Value Reference Range Interpretation Comments POC-GLUCOSE METER 311 mg/dL 70-110 H Notified Gareth Coronado MD/TESTED (GLORIA) (test code = AT [facility] 6720 [facility] 1534) [facility] 9[address] 0 IRON, TIBC, % SAT. (WITHOUT FERRITIN)2018-02-13 10:10:00 Test Item Value Reference Range Interpretation Comments IRON ([facility]) (test code = 547) 49 ug/dL 40-160 TOTAL IRON BINDING CAPACITY 231 ug/dL 250-450 L ([facility]) (test code = 769) IRON % SATURATION (2) (BEAKER) 21 % 20-55 (test code = 2590) POCT-GLUCOSE [id number] 08:50:00 Test Item Value Reference Range Interpretation Comments POC-GLUCOSE METER 348 mg/dL 70-110 H Notified R N MD/TESTED (BEAKER) (test [facility] = [facility] 6720 [facility] 1538) [place] [address] BASIC METABOLIC [id number] 08:31:00 Test Item Value Reference Range Interpretation [...] NOT APPLICABLE FOR DIALYSIS PATIEN TS. LIPID [id number] 08:31:00 Test Item Value Reference Range Interpretation [...] 130-159 High 160-189 Very High >=190IMMATURE RETICULOCYTE [id number] 08:16:00 Test Item Value Reference Range Interpretation Comments IMMATURE RETIC FRACTION (BEAKER) 8.600 % 2.300-13.400 (test code = 1447) RETICULOCYTE COUNT PCT (BEAKER) (test 1.4 % 0.5-1.8 code = 575) CBC W/PLT COUNT & AUTO [id number] 08:16:00 Test Item Value Reference Range Interpretation [...] PERCENT (BEAKER) (test code = 2801) POCT-GLUCOSE [id number] 21:18:00 Test Item Value Reference Range Interpretation Comments POC-GLUCOSE METER 226 mg/dL 70-110 H TESTED AT [facility] 6720 (BEAKER) (test code = CESAR [place] 1538) [address] MR, BRAIN, WITHOUT [id number] 19:43:00FINAL REPORT MRI brain without contrast INDICATION: [...] MDReport Verified Date/Time: 02/12/2018 19:43:32 Reading Location: [facility] Radiology Reading Room POCT-GLUCOSE [id number] 19:01:00 Test Item Value Reference Range Interpretation Comments POC-GLUCOSE METER 362 mg/dL 70-110 H TESTED AT [facility] 6720 ([facility]) (test code = CESAR Servin [place] 1538) [address] EEG AWAKE AND [id number] 17:46:00Reason for exam:->SeizureShould this be performed at the bedside?->[facility] EEG REPORTDATE OF TEST: [id number] OF REPORT: [id number]: [id number]: 18-1889Start time: 14:04Stop time: 14:24ICD-10: R56.9CPT Code: 36857BFZEANY: 40 y old 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, [...] this report.Queenie Loco MD, PhDClinical Neurophysiology/Epilepsy AttendingCHI [facility] POCT- GLUCOSE [id number] 15:33:00 Test Item Value Reference Range Interpretation Comments POC-GLUCOSE METER 213 mg/dL 70-110 H TESTED AT [facility] 67 (BEAKER) (test code = CESAR Servin [facility] 1538) [address] TSH/FREE T4 IF [id number] 09:35:00 Test Item Value Reference Range Interpretation Comments THYROID STIMULATING HORMONE 4.03 uIU/mL 0.35-4.94 (BEAKER) (test code = 772) HEMOGLOBIN [id number] 08:47:00 Test Item Value Reference Range Interpretation Comments HEMOGLOBIN A1C (BEAKER) (test code = 6.5 % 4.3-6.1 H 368) POCT-GLUCOSE [id number] 07:55:00 Test Item Value Reference Range Interpretation Comments POC-GLUCOSE METER 219 mg/dL 70-110 H TESTED AT [facility] 67 (BEAKER) (test code = DARRYLANA Gareth [facility] 1538) [address] [id number] 05:00:00 Test Item Value Reference Range Interpretation Comments MAGNESIUM (BEAKER) (test code = 2.1 mg/dL 1.6-2.6 627) BASIC METABOLIC [id number] 05:00:00 Test Item Value Reference Range Interpretation [...] PATIEN TS. CBC W/PLT COUNT & AUTO [id number] 04:40:00 Test Item Value Reference Range Interpretation [...] PERCENT (BEAKER) (test code = 2801) POCT-GLUCOSE [id number] 04:31:00 Test Item Value Reference Range Interpretation Comments POC-GLUCOSE METER 183 mg/dL 70-110 H TESTED AT [facility] 6720 (BEAKER) (test code = CESAR Servin [facility] 1538) [address] RAD, ABDOMEN/KUB, 1 VIEW [id number] 01:33:00Reason for exam:->Abdominal distension, obtundationFINAL REPORT CLINICAL [...] Leon Verified Date/Time: 02/12/2018 01:33:19 Reading Location: [facility] [address] [place] [address] Reading Room -GLUCOSE [id number] 00:49:00 Test Item Value Reference Range Interpretation Comments POC-GLUCOSE METER 346 mg/dL 70-110 H TESTED AT [facility] 6720 (BEAKER) (test code = [place] 1538) [address] CBC W/PLT COUNT & AUTO [id number] 00:44:00 Test Item Value Reference Range Interpretation [...] (test code = 2801) RAPID DRUG SCREEN, [id number] 00:35:00 Test Item Value Reference Range Interpretation [...] situations. Chain of custody not maintained. Some xpig-hwd-groerxl medications, as well as adulterants, may cause inaccurate results. Clinical correlation should be applied. A more comprehensive drug screen or confirmation of a detected drug may be performed upon request. TROPONIN [id number] 00:15:00 Test Item Value Reference Range Interpretation [...] acute neurological disease, and persistent tachyarrhythmia.COMPREHENSIVE METABOLIC [id number] 00:09:00 Test Item Value Reference Range Interpretation [...] APPLICABLE FOR DIALYSIS PATIEN TS. URINALYSIS W/ [id number] 00:06:00 Test Item Value Reference Range Interpretation [...] = 2795) RAD, CHEST, 1 VIEW, NON [id number] 23:11:00Reason for exam:->Obtundation with coarse respirations, baselineShould this be performed at the [facility]?->YesFINAL REPORT RAD, CHEST, 1 VIEW, NON DEPT INDICATION: Obtundation with coarserespirations, baseline COMPARISON: None. FINDINGS: Portable frontal view of the chest. IMPRESSION: Support Lines: None. Lungs and pleura: Clear lungs. No pneumothorax.Heart and mediastinum: Unremarka ble. Additional findings: Fluid and gaseous distention of the gastric lumen. Signed: JR Lozano Robert MDReport Verified Date/Time: 02/11/2018 23:11:04 Reading Location: [address]
--- OUTSIDE RECORDS SUMMARY | 2019-12-09 12:14 | XMS REPORT | Clinical Summary ---
:1975 [facility] Address [address] [place] [address] Care Team Providers Name Role Phone Unavailable [...] Not on file Results Not on fileafter 12/08/2018 Advance Directives For more information, please contact: ATEMECascade [facility] CenterDecorative Hardware Inc Fnmv[address] [place] [address] [place] [phone] Code Status Date Activated Date Inactivated Comments Full Code 02/11/2018 10:27 PM 02/13/2018 7:55 PM This code status was determined by: Patient
[2019-12-09 13:31] VITALS: BP 130/88; TEMP 97.8; O2SAT 98
--- NOTE | 2019-12-10 11:04 | EKG ---
Test Date: 2019-12-09 Test Time: 11:32:54 Education Program Coordinator: JUSTIN MEASUREMENT RESULTS: Intervals: Rate: 86 MO: 138 QRSD: 66 QT: 402 QTc: 481 [place]: P: 51 MO: 138 QRS: 87 T: 29 INTERPRETIVE STATEMENTS: Normal sinus rhythm Nonspecific ST abnormality Prolonged QT Abnormal ECG Compared to ECG 10/18/2019 20:53:19 ST (T wave) deviation now present Prolonged QT interval now present Electronically Signed On 12-10-19 11:02:05 CDT by Familia Pickett
== END 2019-12-09 13:26 | disposition home or self-care (01) ==
LOC: ER 10:03
DX: E10.649 Type 1 diabetes mellitus with hypoglycemia without coma (principal); E03.9 Hypothyroidism, unspecified; E78.00 Pure hypercholesterolemia, unspecified; G40.909 Epilepsy, unspecified, not intractable, without status epilepticus; Z88.5 Allergy status to narcotic agent
CPT/HCPCS: 36415; 71045; 80048; 80076; 82947; 83735; 84484; 85025; 93005; 99284; J7799

== ENCOUNTER 2020-01-12 16:50 | Inpatient (IN) | payer SELFPAY ==
--- OUTSIDE RECORDS SUMMARY | 2020-01-12 16:52 | XMS REPORT | Continuity of Care Document ---
:1975 Author Organization [facility] t Address [address] [place] [address] Dr. Palma [address] [place] [address] Care Team Providers Name Role Phone LEONID [...] seizure 0-08 [facility] 00 [place] Acute Acute Disease Active 2017-[address] encephalop encephalop 0-08 [facility] - athy athy 00:00: Medical 00 [place] Hyperglyce Hyperglyce Disease Active 2017-[address] yvan yvan 0-08 [facility] 00 [place] Diabetes Diabetes Disease Active 2017[facility] 00 [place] Hyperchole Hyperchole Disease Active 2017-[address] steremia steremia 0-08 [facility]: [facility] 00 [place] Thyroid Thyroid Disease Active 2017-[address] disease disease 0-08 [facility] 00:[facility]: [facility] 00 [place] Leukocytos Leukocytos Disease Active 2017-[address] is is 0-08 [facility] - 00:[facility]: Medical 00 [place] Anemia Anemia Disease Active 2017-[address] 0-08 [facility] - 00:[facility]: [facility] 00 [place] Convulsive Convulsive Disease Active 2017-[address] seizure seizure 0-07 [facility] - disorder disorder 00:00: Medica l with with 00 Center status status epilepticu epilepticu s s Allergies, Adverse Reactions, Alerts This patient has no known allergies or adverse reactions. Social History Social Habit Start Date Stop Date Quantity Comments Source Sex Assigned At [facility] Smoking Status Start Date Stop Date Source Current every day smoker 2018-02-13 00:00:00 [facility] Medications Ordered Filled Start Stop Current Ordering [...] Source Name Name Influenza Four-QIV 2018-02-[address] [facility] Non-PF 5+ YR 00:00:00 Medical Cent er Procedures This patient has no known procedures. Results Test Description Test Time Test Comments Results Result Comments Source BLOOD CULTURE 2018-02-17 06:00:00 Test Item Value Reference Range Interpretation Comme nts CULTURE (BEAKER) (test code = 1095) No growth in 5 days URINE [id number] 10:25:00 Test Item Value Reference Range Interpretation Comments CULTURE (BEAKER) (test code = 1095) No growth POCT-GLUCOSE [id number] 17:10:00 Test Item Value Reference Range Interpretation Comments POC-GLUCOSE METER 232 mg/dL 70-110 H TESTED AT [facility] 6720 ([facility]) (test code = DARRYLANA Gareth [facility] 1537) [address] CT, CTANGIO [id number] 16:41:00CTV pleaseFINAL REPORT CTV brain 02/13/2018 4:35 [...] Sky Verified Date/Time: 02/13/2018 16:41:24 Reading Location: [facility] Radiology Reading Room POCT-GLUCOSE [id number] 13:07:00 Test Item Value Reference Range Interpretation Comments POC-GLUCOSE METER 311 mg/dL 70-110 H Notified Gareth Coronado MD/TESTED (GLORIA) (test code = AT [facility] [address] [facility] 1531) [facility] 74[address] 0 IRON, TIBC, % SAT. (WITHOUT FERRITIN)2018-02-13 10:10:00 Test Item Value Reference Range Interpretation Comments IRON ([facility]) (test code = 547) 49 ug/dL 40-160 TOTAL IRON BINDING CAPACITY 231 ug/dL 250-450 L ([facility]) (test code = 769) IRON % SATURATION (2) (BEAKER) 21 % 20-55 (test code = 2590) POCT-GLUCOSE [id number] 08:50:00 Test Item Value Reference Range Interpretation Comments POC-GLUCOSE METER 348 mg/dL 70-110 H Notified R N MD/TESTED (BEAKER) (test [facility] = [facility] [address] [facility] 1538) [place] [address] BASIC METABOLIC [id number] 08:31:00 Test Item Value Reference Range Interpretation [...] NOT APPLICABLE FOR DIALYSIS PATIEN TS. LIPID [id number] 08:31:00 Test Item Value Reference Range Interpretation [...] 130-159 High 160-189 Very High >=190IMMATURE RETICULOCYTE [id number] 08:16:00 Test Item Value Reference Range Interpretation Comments IMMATURE RETIC FRACTION (BEAKER) 8.600 % 2.300-13.400 (test code = 1447) RETICULOCYTE COUNT PCT (BEAKER) (test 1.4 % 0.5-1.8 code = 575) CBC W/PLT COUNT & AUTO [id number] 08:16:00 Test Item Value Reference Range Interpretation [...] PERCENT (BEAKER) (test code = 2801) POCT-GLUCOSE [id number] 21:18:00 Test Item Value Reference Range Interpretation Comments POC-GLUCOSE METER 226 mg/dL 70-110 H TESTED AT [facility] 6720 (BEAKER) (test code = CESAR [place] 1538) [address] MR, BRAIN, WITHOUT [id number] 19:43:00FINAL REPORT MRI brain without contrast INDICATION: [...] thrombus cannot be excluded. The major proximal [place] flow voids are maintained. Mild [...] MDReport Verified Date/Time: 02/12/2018 19:43:32 Reading Location: [facility] Radiology Reading Room POCT-GLUCOSE [id number] 19:01:00 Test Item Value Reference Range Interpretation Comments POC-GLUCOSE METER 362 mg/dL 70-110 H TESTED AT [facility] 6720 ([facility]) (test code = CESAR Servin [place] 1538) [address] EEG AWAKE AND [id number] 17:46:00Reason for exam:->SeizureShould this be performed at the bedside?->YesCH[facility] EEG REPORTDATE OF TEST: 12-8-3792XIFE OF REPORT: [id number]: [id number]: [id number] time: 14:04Stop time: 14:24ICD-10: R56.9CPT Code: 89729WHVHIRG: 40 y old 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, [...] this report.Queenie Loco MD, PhDClinical Neurophysiology/Epilepsy AttendingCHI [facility] POCT- GLUCOSE [id number] 15:33:00 Test Item Value Reference Range Interpretation Comments POC-GLUCOSE METER 213 mg/dL 70-110 H TESTED AT [facility] 67 (BEAKER) (test code = CESAR Servin [facility] 1538) [address] TSH/FREE T4 IF [id number] 09:35:00 Test Item Value Reference Range Interpretation Comments THYROID STIMULATING HORMONE 4.03 uIU/mL 0.35-4.94 (BEAKER) (test code = 772) HEMOGLOBIN [id number] 08:47:00 Test Item Value Reference Range Interpretation Comments HEMOGLOBIN A1C (BEAKER) (test code = 6.5 % 4.3-6.1 H 368) POCT-GLUCOSE [id number] 07:55:00 Test Item Value Reference Range Interpretation Comments POC-GLUCOSE METER 219 mg/dL 70-110 H TESTED AT [facility] 67 (BEAKER) (test code = DARRYLANA Gareth [facility] 1538) [address] [id number] 05:00:00 Test Item Value Reference Range Interpretation Comments MAGNESIUM (BEAKER) (test code = 2.1 mg/dL 1.6-2.6 627) BASIC METABOLIC [id number] 05:00:00 Test Item Value Reference Range Interpretation [...] PATIEN TS. CBC W/PLT COUNT & AUTO [id number] 04:40:00 Test Item Value Reference Range Interpretation [...] PERCENT (BEAKER) (test code = 2801) POCT-GLUCOSE [id number] 04:31:00 Test Item Value Reference Range Interpretation Comments POC-GLUCOSE METER 183 mg/dL 70-110 H TESTED AT [facility] 6720 (BEAKER) (test code = CESAR Servin [facility] 1538) [address] RAD, ABDOMEN/KUB, 1 VIEW [id number] 01:33:00Reason for exam:->Abdominal distension, obtundationFINAL REPORT CLINICAL [...] Leon Verified Date/Time: 02/12/2018 01:33:19 Reading Location: [facility] [address] [place] [address] Reading Room -GLUCOSE [id number] 00:49:00 Test Item Value Reference Range Interpretation Comments POC-GLUCOSE METER 346 mg/dL 70-110 H TESTED AT [facility] 6720 (BEAKER) (test code = [place] 1538) [address] CBC W/PLT COUNT & AUTO [id number] 00:44:00 Test Item Value Reference Range Interpretation [...] (test code = 2801) RAPID DRUG SCREEN, [id number] 00:35:00 Test Item Value Reference Range Interpretation [...] situations. Chain of custody not maintained. Some rwfa-ovp-eyvjcji medications, as well as adulterants, may cause inaccurate results. Clinical correlation should be applied. A more comprehensive drug screen or confirmation of a detected drug may be performed upon request. TROPONIN [id number] 00:15:00 Test Item Value Reference Range Interpretation [...] acute neurological disease, and persistent tachyarrhythmia.COMPREHENSIVE METABOLIC [id number] 00:09:00 Test Item Value Reference Range Interpretation [...] APPLICABLE FOR DIALYSIS PATIEN TS. URINALYSIS W/ [id number] 00:06:00 Test Item Value Reference Range Interpretation [...] = 2795) RAD, CHEST, 1 VIEW, NON [id number] 23:11:00Reason for exam:->Obtundation with coarse respirations, baselineShould this be performed at the [facility]?->YesFINAL REPORT RAD, CHEST, 1 VIEW, NON DEPT INDICATION: Obtundation with coarserespirations, baseline COMPARISON: None. FINDINGS: Portable frontal view of the chest. IMPRESSION: Support Lines: None. Lungs and pleura: Clear lungs. No pneumothorax.Heart and mediastinum: Unremarka ble. Additional findings: Fluid and gaseous distention of the gastric lumen. Signed: JR Lozano Robert MDReport Verified Date/Time: 02/11/2018 23:11:04 Reading Location: [address]
--- OUTSIDE RECORDS SUMMARY | 2020-01-12 16:52 | XMS REPORT | Clinical Summary ---
:1975 Author Organization [facility] Address [address] [place] [address] Care Team Providers Name Role Phone Unavailable [...] Not on file Results Not on fileafter 01/11/2019 Advance Directives For more information, please contact:[facility] Arc SolutionsSt. Luke'S [facility] Medical CenterBitvore [address] [place] [address] [place] [phone] Code Status Date Activated Date Inactivated Comments Full Code 02/11/2018 10:27 PM 02/13/2018 7:55 PM This code status was determined by: Patient
[2020-01-12] MEDS ORDERED: NA CHLORIDE 0.9% 2,000 ML ONE (17:22)
--- NOTE | 2020-01-12 17:35 | RAD REPORT ---
EXAM DESCRIPTION: [place] Single View01/12/2020 5:13 pm CLINICAL HISTORY: Congestion COMPARISON: December 2019 FINDINGS: The lungs appear clear of acute infiltrate. The heart is normal size IMPRESSION: No acute abnormalities displayed
[2020-01-12 17:40] LABS: Absolute Lymphocytes (CBC) 0.4 K/uL (0.7-4.9); Basophils % 0.1 % (0-1.3); Hematocrit 44.3 % (39.6-49.0); Lymphocytes % 4.2 % (15.3-44.8); MPV 8.6 fL (7.6-11.3); Protime INR 1.03; RBC Red Blood Cell Count 4.46 M/uL (4.33-5.43)
[2020-01-12 17:52] LABS: Urine Blood 3+ (NEG); Urine Glucose 2+ (NEG); Urine Protein 2+ (NEG); Urine Specific Gravity 1.015 (1.005-1.030); Urine pH 6.5 (5.0-7.0)
[2020-01-12 18:07] LABS: Bilirubin Direct 0.5 mg/dL (0-0.2); Bilirubin Total 1.2 mg/dL (0.2-1.0); Magnesium 1.1 mg/dL (1.8-2.4); Potassium 3.6 mmol/L (3.5-5.1); Protein, Total 7.1 g/dL (6.4-8.2); Troponin (Emerg Dept Use Only) 0.03 ng/mL (0.0-0.045)
[2020-01-12 18:18] LABS: Blood Morphology Comment NOT SEEN (NOT SEEN); Platelet Estimate ADEQ; White Blood Cell Scan OK (OK)
--- NOTE | 2020-01-12 18:35 | EDPHYS ---
Physician Documentation [facility] Name: Surjit Stubbs Age: 44 yrs Sex: Male : 1975 Arrival Date: 01/12/2020 Time: 16:55 Bed 7 Private MD: ED Physician Jose Loera HPI: 01/11 18:26 This 44 yrs old Male presents to ER via EMS with complaints of High Blood ma2 Sugar. 18:26 This 44 yrs old Male presents to ER via EMS with complaints of High Blood ma2 Sugar. 18:26 Onset: The symptoms/episode began/occurred gradually, 1 day(s) ago. Associated signs ma2 and symptoms: Pertinent negatives: constipation, diaphoresis, diarrhea, hair loss. Current symptoms: In the emergency department the patient's symptoms are unchanged from the initial presentation. The patient has experienced similar episodes in the past. here with tachycardia and tachypnea, he states he drinks alcohol daily, no alcohol last 2 days.. . Historical: - Allergies: 17:02 tramadol; ca1 - PMHx: 17:02 Diabetes - IDDM; High Cholesterol; Hypothyroidism; neuropathy; Seizures; ca1 - Immunization history:: Adult Immunizations up to date. - Social history:: Smoking status: Patient reports the use of cigarette tobacco products, smokes two packs cigarettes per day. Patient/guardian denies using alcohol, street drugs, The patient lives with family. - Family history:: not pertinent. ROS: 18:26 Constitutional: Negative for fever, chills, and weight loss. ma2 18:26 All other systems are negative. Exam: 18:26 Constitutional: This is a well developed, well nourished patient who is awake, alert, ma2 and in no acute distress. Head/Face: Normocephalic, atraumatic. Eyes: Pupils equal round and reactive to light, extra-ocular motions intact. Lids and lashes normal. Conjunctiva and sclera are non-icteric and not injected. Cornea within normal limits. Periorbital areas with no swelling, redness, or edema. ENT: Nares patent. No nasal discharge, no septal abnormalities noted. Tympanic membranes are normal and external auditory canals are clear. Oropharynx with no redness, swelling, or masses, exudates, or evidence of obstruction, uvula midline. Mucous membranes moist. Neck: Trachea midline, no thyromegaly or masses palpated, and no cervical lymphadenopathy. Supple, full range of motion without nuchal rigidity, or vertebral point tenderness. No Meningismus. Chest/axilla: Normal chest wall appearance and motion. Nontender with no deformity. No lesions are appreciated. Cardiovascular: Regular rate and rhythm with a normal S1 and S2. No gallops, murmurs, or rubs. Normal PMI, no JVD. No pulse deficits. Respiratory: Lungs have equal breath sounds bilaterally, clear to auscultation and percussion. No rales, rhonchi or wheezes noted. No increased work of breathing, no retractions or nasal flaring. Abdomen/GI: Soft, non-tender, with normal bowel sounds. No distension or tympany. No guarding or rebound. No evidence of tenderness throughout. Back: No spinal tenderness. No costovertebral tenderness. Full range of motion. MS/ Extremity: Pulses equal, no cyanosis. Neurovascular intact. Full, normal range of motion. Neuro: Awake and alert, GCS 15, oriented to person, place, time, and situation. Cranial nerves II-XII grossly intact. Motor strength 5/5 in all extremities. Sensory grossly intact. Cerebellar exam normal. Normal gait. Vital Signs: 16:55 BP 145 / 94; Pulse 136; Resp 27; Temp 97.7(TE); Pulse Ox 98% on R/A; Weight 68.04 kg ca1 (R); Height 5 ft. 9 in. (175.26 cm) (R); 17:40 BP 154 / 105; Pulse 124; Resp 15 S; Pulse Ox 100% on R/A; ca1 18:31 BP 149 / 106; Pulse 119; Resp 20; Pulse Ox 100% on R/A; ca1 19:31 BP 149 / 106; Pulse 119; Resp 20 S; Pulse Ox 100% on R/A; ca1 19:57 BP 149 / 109; Pulse 104; Resp 17 S; Pulse Ox 100% on R/A; ca1 20:30 BP 152 / 103; Pulse 126; Resp 22 S; Pulse Ox 97% on R/A; ca1 21:15 BP 130 / 98; Pulse 123; Resp 24 S; Pulse Ox 100% on R/A; ca1 16:55 Body Mass Index 22.15 (68.04 kg, 175.26 cm) ca1 MDM: 16:58 Patient medically screened. ma2 18:29 Differential diagnosis: diabetes insipidus, DKA, gestational diabetes. ma2 18:31 Data reviewed: vital signs, nurses notes. Counseling: I had a detailed discussion with riley the patient and/or guardian regarding: the historical points, exam findings, and any diagnostic results supporting the discharge/admit diagnosis, the presence of at least one elevated blood pressure reading (>120/80) during this emergency department visit, the need for outpatient follow up. Response to treatment: the patient's symptoms have markedly improved after treatment. 01/11 16:58 Order name: Basic Metabolic Panel; Complete Time: 18:15 ma2 01/11 16:58 Order name: CBC with Diff; Complete Time: 18:22 ma2 01/11 16:58 Order name: LFT's; Complete Time: 18:22 ma2 01/11 16:58 Order name: Magnesium; Complete Time: 18:22 ma2 01/11 16:58 Order name: NT PRO-BNP; Complete Time: 18:22 ma2 01/11 16:58 Order name: PT-INR; Complete Time: 17:55 ma2 01/11 16:58 Order name: Troponin (emerg Dept Use Only); Complete Time: 18:22 ma2 01/11 17:07 Order name: Glucose, Ancillary Testing; Complete Time: 17:55 EDMS 01/11 17:42 Order name: CBC Smear Scan; Complete Time: 18:22 EDMS 01/11 17:51 Order name: Urine Dipstick--Ancillary (enter results); Complete Time: 17:55 eb 01/11 18:31 Order name: Osmolality, Serum ma2 01/11 18:41 Order name: BMP ca1 01/11 18:47 Order name: ABG la1 01/11 18:59 Order name: Glucose, Ancillary Testing; Complete Time: 19:03 EDMS 01/11 16:58 Order name: XRAY Chest (1 view); Complete Time: 17:55 ma2 01/11 16:58 Order name: EKG; Complete Time: 16:59 ma2 01/11 16:58 Order name: Cardiac monitoring; Complete Time: 17:06 ma2 01/11 16:58 Order name: EKG - Nurse/Tech; Complete Time: 17:06 ma2 01/11 16:58 Order name: IV Saline Lock; Complete Time: 17:06 ma2 01/11 16:58 Order name: Labs collected and sent; Complete Time: 17:06 de2 01/11 16:58 Order name: O2 Per Protocol; Complete Time: 17:06 de2 01/11 19:17 Order name: COVID-19 lp1 01/11 20:56 Order name: SARS-COV-2 RT PCR EDMS 01/11 16:58 Order name: O2 Sat Monitoring; Complete Time: 17:06 Administered Medications: 17:13 Drug: NS 0.9% 1000 ml Route: IV; Rate: 1000 ml; Site: right antecubital; ca1 19:00 Follow up: Response: No adverse reaction; IV Status: Completed infusion ca1 17:14 Drug: NS 0.9% 1000 ml Route: IV; Rate: 1 bolus; Site: right antecubital; ca1 19:30 Follow up: Response: No adverse reaction; IV Status: Completed infusion; IV Intake: ca1 1000ml 18:50 Drug: Insulin Regular Human 5 units {Co-Signature: aa5 (Shasta Read RN).} Route: ca1 IVP; Site: right antecubital; 20:42 Follow up: Response: No adverse reaction; Blood sugar is lowered ca1 18:52 Drug: Valium 10 mg Route: IVP; Site: right antecubital; ca1 19:52 Follow up: Response: No adverse reaction; Anxiety decreased ca1 18:55 Drug: Magnesium Sulfate 2 grams Route: IVPB; Infused Over: 2 hrs; Site: right ca1 antecubital; 19:51 Follow up: Response: No adverse reaction; IV Status: Completed infusion ca1 19:19 Drug: NS 0.9% 500 ml Route: IV; Rate: bolus; Site: right antecubital; ca1 19:53 Follow up: Response: No adverse reaction; IV Status: Completed infusion; IV Intake: ca1 500ml 19:56 Follow up: Response: No adverse reaction; IV Status: Completed infusion mt2 19:54 Drug: NS 0.9% 1000 ml Route: IV; Rate: 100 ml/hr; Site: right antecubital; ca1 19:58 Follow up: IV Status: Infusion continued upon admission ca1 Disposition: 01/12/20 18:34 Hospitalization ordered by Jordi Wick for Inpatient Admission. Preliminary diagnosis are Abnormal blood-gas level, Tachycardia, unspecified. - Bed requested for Intensive Care Unit. - Status is Inpatient Admission. mg2 - Condition is Stable. - Problem is new. - Symptoms are unchanged. Signatures: Dispatcher [employer] EDMS Luis Pollock, HEVER-C [employer]ER-Cla1 Jose Loera MD MD de2 Jordan Rust, RN RN mg2 Jhoana Lemos RN RN ca1 Ayana Mullins RN id2 Shasta Read RN aa5 Corrections: (The following items were deleted from the chart) 19:03 18:34 Hospitalization Ordered by Sancho Espino DO for Observation. Preliminary la1 diagnosis is Abnormal blood-gas level; Tachycardia, unspecified. Bed requested for Telemetry/MedSurg (observation). Status is Observation. Condition is Stable. Problem is new. Symptoms are unchanged. ma2 19:13 19:03 01/12/2020 18:34 Hospitalization Ordered by Jordi Wick MD for Inpatient la1 Admission. Preliminary diagnosis is Abnormal blood-gas level; Tachycardia, unspecified. Bed requested for Telemetry/MedSurg (observation). Status is Inpatient Admission. Condition is Stable. Problem is new. Symptoms are unchanged. la1 21:40 19:13 01/12/2020 18:34 Hospitalization Ordered by Jordi Wick MD for Inpatient mg2 Admission. Preliminary diagnosis is Abnormal blood-gas level; Tachycardia, unspecified. Bed requested for Intensive Care Unit. Status is Inpatient Admission. Condition is Stable. Problem is new. Symptoms are unchanged. la1
--- NOTE | 2020-01-12 18:35 | ER ---
Nurse's Notes [facility] Name: Surjit Stubbs Age: 44 yrs Sex: Male : 1975 Arrival Date: 01/12/2020 Time: 16:55 Bed 7 Private MD: Diagnosis: Abnormal blood-gas level;Tachycardia, unspecified Presentation: 01/11 16:55 Chief complaint: EMS states: Called in for low blood sugar, BGL on scene was [place]. ca1 Reports waking up in the floor this morning and unable to recall how he got on the floor and how long he has been there. He called a friend, helped him up and had some food and sources of sugar. This afternoon, reports numbness of R lower leg, general body weakness. ambulates with assist that is not baseline. Pt is diabetes - IDDM and reports not taking insulin today and did not take blood sugar. VS BP 138/102, RI 138 sinus tach,, RR 28, 99%RA, Temp 97.6. Coronavirus screen: Client denies travel out of the [place] in the last 14 days. At this time, the client does not indicate any symptoms associated with coronavirus-19. Ebola Screen: Patient negative for fever greater than or equal to 101.5 degrees Fahrenheit, and additional compatible Ebola Virus Disease symptoms Patient denies exposure to infectious person. Patient denies travel to an Ebola-affected area in the 21 days before illness onset. No symptoms or risks identified at this time. Initial Sepsis Screen: Does the patient meet any 2 criteria? No. Patient's initial sepsis screen is negative. Does the patient have a suspected source of infection? No. Patient's initial sepsis screen is negative. Initial Sepsis Screen: Does the patient meet any 2 criteria? RR > 20 per min. HR > 90 bpm. Yes Does the patient have a suspected source of infection? No. Patient's initial sepsis screen is negative. Risk Assessment: Do you want to hurt yourself or someone else? Patient reports no desire to harm self or others. Onset of symptoms was January 12, 2020. 16:55 Acuity: TOI 2 ca1 16:55 Method Of Arrival: EMS: [facility] ca1 17:07 Care prior to arrival: Medication(s) given: Normal saline infusion, 200ML IV initiated. ca1 20 GA, in the right antecubital area. Triage Assessment: 17:02 General: Appears in no apparent distress. comfortable, Behavior is calm, cooperative, ca1 appropriate for age. Pain: Denies pain. EENT: No deficits noted. No signs and/or symptoms were reported regarding the EENT system. Neuro: Level of Consciousness is awake, alert, obeys commands, Oriented to person, place, time, situation, Appropriate for age. Cardiovascular: Heart tones S1 S2 present Capillary refill is > 3 seconds Patient's skin is warm and dry. Rhythm is sinus tachycardia. Respiratory: Airway is patent Respiratory effort is even, unlabored, Respiratory pattern is regular, tachypnea Breath sounds are clear bilaterally. GI: Abdomen is flat, non-distended, Bowel sounds present X 4 quads. Abd is soft and non tender X 4 quads. Patient currently denies abdominal pain, diarrhea, nausea, vomiting. : No signs and/or symptoms were reported regarding the genitourinary system. Derm: Skin is intact, is healthy with good turgor, Skin is pink, warm \T\ dry. Musculoskeletal: Circulation, motion, and sensation intact. Capillary refill < 3 seconds. Historical: - Allergies: 17:02 tramadol; ca1 - PMHx: 17:02 Diabetes - IDDM; High Cholesterol; Hypothyroidism; neuropathy; Seizures; ca1 - Immunization history:: Adult Immunizations up to date. - Social history:: Smoking status: Patient reports the use of cigarette tobacco products, smokes two packs cigarettes per day. Patient/guardian denies using alcohol, street drugs, The patient lives with family. - Family history:: not pertinent. Screenin:05 Abuse screen: Denies threats or abuse. Denies injuries from another. Nutritional ca1 screening: No deficits noted. Tuberculosis screening: No symptoms or risk factors identified. Fall Risk Secondary diagnosis (15 points) seizures, IV access (20 points). Gait- Weak (10 pts.). Total Beck Fall Scale indicates High Risk Score (45 or more points). Fall prevention measures have been instituted. Side Rails Up X 2 As available patient and family educated on Fall Prevention Program and Strategies. Assessment: 17:05 Reassessment: See triage notes. ca1 17:40 Reassessment: Patient appears in no apparent distress at this time. Patient and/or ca1 family updated on plan of care and expected duration. Pain level reassessed. Patient is alert, oriented x 3, equal unlabored respirations, skin warm/dry/pink. 18:31 Reassessment: Patient appears in no apparent distress at this time. Patient and/or ca1 family updated on plan of care and expected duration. Pain level reassessed. Patient is alert, oriented x 3, equal unlabored respirations, skin warm/dry/pink. 19:13 Reassessment: Patient appears in no apparent distress at this time. Patient and/or ca1 family updated on plan of care and expected duration. Pain level reassessed. Patient is alert, oriented x 3, equal unlabored respirations, skin warm/dry/pink. Reassessment: VO NS 500ml bolus now then NS1L at 100ml/hr maintenance from Luis Pollock NP. 20:15 Reassessment: Patient appears in no apparent distress at this time. Patient and/or ca1 family updated on plan of care and expected duration. Pain level reassessed. Patient is alert, oriented x 3, equal unlabored respirations, skin warm/dry/pink. 21:15 Reassessment: Patient appears in no apparent distress at this time. Patient and/or ca1 family updated on plan of care and expected duration. Pain level reassessed. Patient is alert, oriented x 3, equal unlabored respirations, skin warm/dry/pink. 21:24 Reassessment: Pt c/o R posterior thigh pain, notified Luis Pollock NP. VO Morphine 2mg ca1 q6 PRN. Vital Signs: 16:55 BP 145 / 94; Pulse 136; Resp 27; Temp 97.7(TE); Pulse Ox 98% on R/A; Weight 68.04 kg ca1 (R); Height 5 ft. 9 in. (175.26 cm) (R); 17:40 BP 154 / 105; Pulse 124; Resp 15 S; Pulse Ox 100% on R/A; ca1 18:31 BP 149 / 106; Pulse 119; Resp 20; Pulse Ox 100% on R/A; ca1 19:31 BP 149 / 106; Pulse 119; Resp 20 S; Pulse Ox 100% on R/A; ca1 19:57 BP 149 / 109; Pulse 104; Resp 17 S; Pulse Ox 100% on R/A; ca1 20:30 BP 152 / 103; Pulse 126; Resp 22 S; Pulse Ox 97% on R/A; ca1 21:15 BP 130 / 98; Pulse 123; Resp 24 S; Pulse Ox 100% on R/A; ca1 16:55 Body Mass Index 22.15 (68.04 kg, 175.26 cm) ca1 ED Course: 16:55 Patient arrived in ED. ca1 16:55 Jhoana Lemos, RN is Primary Nurse. ca1 16:58 Jose Loera MD is Attending Physician. ma2 17:01 Triage completed. ca1 17:02 Arm band placed on right wrist. ca1 17:04 Initial lab(s) drawn, by pa, sent to lab. Inserted saline lock: 22 gauge in left mh5 antecubital area, using aseptic technique. Blood collected. 17:05 Patient has correct armband on for positive identification. Placed in gown. Bed in low ca1 position. Call light in reach. Side rails up X2. monitoring and evaluation advisor on. Pulse ox on. NIBP on. Warm blanket given. 17:05 Patient has correct armband on for positive identification. Placed in gown. Bed in low mh5 position. Call light in reach. Side rails up X2. Warm blanket given. monitoring and evaluation advisor on. Pulse ox on. NIBP on. 17:06 Troponin (emerg Dept Use Only) Sent. mh5 17:06 PT-INR Sent. mh5 17:06 NT PRO-BNP Sent. mh5 17:06 Maintain EMS IV. Dressing intact. Good blood return noted. Site clean \T\ dry. Gauge \T\ ca 1 site: G20 RAC. 17:07 Magnesium Sent. mh5 17:07 LFT's Sent. 5 17:07 CBC with Diff Sent. mh5 17:07 Basic Metabolic Panel Sent. mh5 17:13 XRAY Chest (1 view) In Process Unspecified. EDMS 18:34 Sancho Espino DO is Hospitalizing Provider. ma2 19:02 Jordi Wick MD is Hospitalizing Provider. la1 21:36 Inserted saline lock: 22 gauge in right wrist, using aseptic technique. ca1 Administered Medications: 17:13 Drug: NS 0.9% 1000 ml Route: IV; Rate: 1000 ml; Site: right antecubital; ca1 19:00 Follow up: Response: No adverse reaction; IV Status: Completed infusion ca1 17:14 Drug: NS 0.9% 1000 ml Route: IV; Rate: 1 bolus; Site: right antecubital; ca1 19:30 Follow up: Response: No adverse reaction; IV Status: Completed infusion; IV Intake: ca1 1000ml 18:50 Drug: Insulin Regular Human 5 units {Co-Signature: aa5 (Shasta Read RN).} Route: ca1 IVP; Site: right antecubital; 20:42 Follow up: Response: No adverse reaction; Blood sugar is lowered ca1 18:52 Drug: Valium 10 mg Route: IVP; Site: right antecubital; ca1 19:52 Follow up: Response: No adverse reaction; Anxiety decreased ca1 18:55 Drug: Magnesium Sulfate 2 grams Route: IVPB; Infused Over: 2 hrs; Site: right ca1 antecubital; 19:51 Follow up: Response: No adverse reaction; IV Status: Completed infusion ca1 19:19 Drug: NS 0.9% 500 ml Route: IV; Rate: bolus; Site: right antecubital; ca1 19:53 Follow up: Response: No adverse reaction; IV Status: Completed infusion; IV Intake: ca1 500ml 19:56 Follow up: Response: No adverse reaction; IV Status: Completed infusion mt2 19:54 Drug: NS 0.9% 1000 ml Route: IV; Rate: 100 ml/hr; Site: right antecubital; ca1 19:58 Follow up: IV Status: Infusion continued upon admission ca1 Intake: 19:30 IV: 1000ml; Total: 1000ml. ca1 19:53 IV: 500ml; Total: 1500ml. ca1 Outcome: 18:34 Decision to Hospitalize by Provider. ma2 21:40 Patient left the ED. mg2 Signatures: Dispatcher [employer] EDMS Luis Pollock FNP-C FNP-Cla1 [facility] Jose Loera MD MD ma2 Jordan Rust RN RN mg2 Jhoana Lemos RN RN ca1 Ayana Mullins RN RN mt2 Shasta Read RN aa5 Corrections: (The following items were deleted from the chart) 17:03 16:55 Chief complaint: EMS states: Called in for low blood sugar, BGL on scene was [place]. ca1 Reports waking up in the floor this morning and unable to recall how he got on the floor and how long he has been there. He called a friend, helped him up and had some food and sources of sugar. This afternoon, reports numbness of R lower leg, general body weakness. ambulates with assist that is not baseline. Pt is diabetes - IDDM and reports not taking insulin today and did not take blood sugar ca1 17:05 17:05 Fall Risk Secondary diagnosis (15 points) seizures, IV access (20 points). ca1 ca1 21: 21:24 Reassessment: Pt c/o R posterior thigh pain, notified Luis Pollock NP. VO Morphine ca1 2mg q2 PRN ca1
[2020-01-12] MEDS ORDERED: DIAZEPAM 10 MG/2 ML INJ SYRINGE ONE (18:47)
[2020-01-12] MEDS ORDERED: INSULIN -REGULAR HUMAN 50 UNIT/0.5 ML ML ONE ×2 (18:48→22:58)
--- NOTE | 2020-01-12 18:58 | P.HP ---
Certification for Inpatient Patient admitted to: Inpatient With expected LOS: >2 Midnights Patient will require the following post-hospital care: None Practitioner: I am a practitioner with admitting privileges, knowledge of patient current condition, hospital course, and medical plan of care. Services: Services provided to patient in accordance with Admission requirements found in Title 42 Section 412.3 of the Code of Federal Regulations <LakhwinderLuis stuart - Last Filed: 01/12/20 19:23> Patient History Date of Service: 01/12/20 Primary Care Provider: Heladio, previously Dr. Gordon Reason for admission: ETOH withdrawal, hyperglycemia History of Present Illness: 44-year-old male with history of diabetes mellitus type 1, hypertension, hyperlipidemia, alcohol abuse presents emergency department with chief complaint of high blood sugar. Patient reports that this morning he had an episode of hypoglycemia and therefore did not take his Levemir or NovoLog throughout the day. Patient also admits to drinking approximately 3-4 mixed beverages throughout the day daily. Patient reports his last drink was yesterday. During his evaluation in the emergency department patient was found to have elevated blood glucose level at around 600. Patient also tachycardic, hypertensive, anxious. Patient anion gap is 16, ABG pending at this time. Patient without fever, other signs of infection. ED provider wishes to admit patient for acute alcohol withdrawal and diabetes mellitus type 1 with hyperglycemia. When I saw the patient in the emergency department he was awake, alert, oriented x4. Patient speech was rapid, appeared anxious. Patient was tachycardic around 120 and hypertensive with blood pressure around 145/100. Patient was afebrile, does not appear septic. Will admit to the intensive care unit overnight for acute alcohol withdrawal and close monitoring of blood glucose level. - Past Medical/Surgical History Diabetic: Yes -: Diabetes mellitus type 1 -: Hypothyroidism -: Hyperlipidemia -: Alcohol abuse -: adenoidectomy Psychosocial/ Personal History: Patient currently lives at home alone as his girlfriend is in detention and is unemployed. - Family History Father -: Heart disease, Diabetes - Social History Smoking Status: Heavy Tobacco smoker (>10 cigarettes/day) Counseled patient to stop smoking for: less than 10 minutes Smoking therapy provided: Yes Alcohol use: Yes CD- Drugs: Yes Caffeine use: Yes Place of Residence: Home <Luis Pollock - Last Filed: 01/12/20 19:23> Date of Service: 01/13/20 <Jordi Wick - Last Filed: 01/13/20 14:52> Allergies tramadol Allergy (Verified 01/13/20 07:25) Nausea/Vomiting Home Medications: Glucagon,Human Recombinant [Glucagon Emergency Kit] 1 mg IM PRN PRN 05/06/17 Insulin -Regular Human [Novolin -R*] See Protocol SQ ACHS 05/06/17 Insulin Detemir [Levemir*] 16 units SQ DAILY 05/06/17 Multivitamin [Daily Multiple Vitamin] 1 tab PO DAILY 05/06/17 Pregabalin [Lyrica*] 100 mg PO BID 05/06/17 Thyroid Tab [[place] Thyroid*] 120 mg PO DAILY 05/06/17 gemfibroziL [Lopid*] 600 mg PO BID 05/06/17 Review of Systems 10-point ROS is otherwise unremarkable General: Weakness, Malaise <Luis Pollock - Last Filed: 01/12/20 19:23> Physical Examination - Physical Exam General: Alert, In no apparent distress, Oriented x3 HEENT: Atraumatic, Normocephalic, PERRLA, Other (Mucous membranes dry) Neck: Supple Respiratory: Clear to auscultation bilaterally Cardiovascular: No edema, Normal S1 S2, Irregular heart rate/rhythm (Sinus tachycardia rate around 120) Capillary refill: <2 Seconds Gastrointestinal: Normal bowel sounds, Soft and benign Musculoskeletal: No contractures, No erythema, No tenderness Integumentary: No significant lesion, No tenderness/swelling, No erythema Neurological: Normal speech, Normal strength at 5/5 x4 extr, Normal tone, Sensation intact - Studies Laboratory Data (last 24 hrs) 01/12/20 17:08: PT 12.1, INR 1.03 01/12/20 17:08: WBC 9.9, Hgb 14.9, Hct 44.3, Plt Count 209 01/12/20 17:08: Sodium 133 L, Potassium 3.6, BUN 11, Creatinine 1.69 H, Glucose 652 H*, Magnesium 1.1 L* D, Total Bilirubin 1.2 H, AST 243 H, ALT 67, Alkaline Phosphatase 200 H <Luis Pollock - Last Filed: 01/12/20 19:23> - Studies Laboratory Data (last 24 hrs) 01/12/20 17:08: PT 12.1, INR 1.03 01/12/20 17:08: WBC 9.9, Hgb 14.9, Hct 44.3, Plt Count 209 01/12/20 17:08: Sodium 133 L, Potassium 3.6, BUN 11, Creatinine 1.69 H, Glucose 652 H*, Magnesium 1.1 L* D, Total Bilirubin 1.2 H, AST 243 H, ALT 67, Alkaline Phosphatase 200 H <Jordi Wick - Last Filed: 01/13/20 14:52> Assessment and Plan - Plan Assessment Acute alcohol withdrawal Diabetes mellitus type 1 with hyperglycemia without acidosis Hypomagnesemia Acute kidney injury Hypertension Hyperlipidemia Tobacco abuse Plan Acute alcohol withdrawal: Patient hypertensive, tachycardic with anxiety/agitation. Patient will be admitted to the intensive care unit overnight for alcohol withdrawal. Continue with withdrawal protocol. Will continue with IV fluids, thiamine, banana bag. Electrolyte protocols in place. DVT prophylaxis with Lovenox 40 mg subcutaneous once daily. Anticipate clinical improvement in the next 24-48 hr. Diabetes mellitus type 1 with hyperglycemia without acidosis: Initial anion gap is 16, ABG shows no acidosis. Patient received IV insulin and 2 units of normal saline bolus in the emergency department. Will initiate long-acting insulin therapy with sliding scale and a.c. HS Accu-Cheks as well as ADA diet. Will continue to monitor patient's blood sugar chemistries closely. Hypomagnesemia: Initial magnesium 1.1. Patient received 2 g magnesium the emergency department. Continue with magnesium protocol. Acute kidney injury: Continue with IV hydration at this time. Will hold lisinopril at this time. Hypertension: Hold lisinopril, continue with p.r.n. medications at this time. Hyperlipidemia: Obtain and continue patient's home medications. Tobacco abuse: Will provide patient with nicotine patch. Patient reports smoking approximately 1.5 packs per day. Counseled on need for tobacco cessation. Discharge Plan: Home Plan to discharge in: 48 Hours - Advance Directives Does patient have a Living Will: No Does patient have a Durable POA for Healthcare: No - Code Status/Comfort Care Code Status Assessed: Yes (Patient is full code) Critical Care: No Time Spent Managing Pts Care (In Minutes): 55 <Luis Pollock - Last Filed: 01/12/20 19:23> Physician Review Additional Text: Plan of care discussed with Luis Pollock, and I agree with the management plan as noted above. <Jordi Wick - Last Filed: 01/13/20 14:52>
[2020-01-12] MEDS ORDERED: Magnesium Sulfate 2gm IVPB 2 G/50 ML BAG IV ONE (19:06)
[2020-01-12] MEDS ORDERED: NA CHLORIDE 0.9% 500 ML ONE (19:39)
[2020-01-12 20:04] LABS: Potassium 3.1 mmol/L (3.5-5.1)
[2020-01-12] MEDS ORDERED: NA CHLORIDE 0.9% 1,000 ML ONE (20:06)
[2020-01-12 20:55] LABS: Arterial Blood Carboxyhemoglob 1.7 % (0-1.5); Blood Gas Oxyhemoglobin 94.6 % (94-97)
[2020-01-12] MEDS ORDERED: FLUMAZENIL 0.1 MG/ML (5 mL VIAL) IV PRN (21:28)
[2020-01-12] MEDS ORDERED: D50W 25 GM/50 ML SYRINGE/VIAL IV PRN (21:28)
[2020-01-12] MEDS ORDERED: LORazepam 2 MG/ML VIAL IV PRN (21:28)
[2020-01-12] MEDS ORDERED: INSULIN GLARGINE 100 UNITS/ML SQ ONE ×2 (21:28→22:57)
[2020-01-12] MEDS ORDERED: GLUCAGON 1 MG/VIAL IM PRN (21:28)
[2020-01-12] MEDS ORDERED: ONDANSETRON 4 MG/2 ML VIAL IV PRN (21:28)
[2020-01-12] MEDS ORDERED: HYDRALAZINE HCL 20 MG/ML VIAL IV PRN (21:28)
[2020-01-12] MEDS ORDERED: MORPHINE 2 MG/ML SYR IV PRN (21:30)
[2020-01-12] MEDS ORDERED: MORPHINE 2 MG/ML SYR ONE (21:39)
[2020-01-12 22:32] VITALS: BMI 21.5
[2020-01-12] MEDS: NICOTINE 21 MG/PAT TD SCH (22:47)
[2020-01-12] MEDS: INSULIN -REGULAR HUMAN 50 UNIT/0.5 ML ML SQ SCH (22:48)
[2020-01-12] MEDS: METOPROLOL TAR 25 MG TAB PO SCH (22:49)
[2020-01-12] MEDS ORDERED: NICOTINE 21 MG/PAT TD ONE (22:57)
[2020-01-12] MEDS ORDERED: METOPROLOL TAR 25 MG TAB ONE (22:58)
[2020-01-12] MEDS ORDERED: POTASSIUM 25 MEQ EFFERV TAB PO ONE (23:12)
[2020-01-12] MEDS: LORazepam 2 MG/ML VIAL IV SCH (23:48)
[2020-01-12] MEDS ORDERED: LORazepam 2 MG/ML VIAL ONE (23:53)
[2020-01-12] MEDS ORDERED: POTASSIUM 25 MEQ EFFERV TAB ONE (23:53)
[2020-01-13] MEDS: LORazepam 2 MG/ML VIAL IV SCH ×6 (01:20→21:19)
[2020-01-13 04:56] LABS: Absolute Lymphocytes (CBC) 2.4 K/uL (0.7-4.9); Basophils % 0.8 % (0-1.3); Hematocrit 39.8 % (39.6-49.0); Lymphocytes % 26.2 % (15.3-44.8); MPV 8.7 fL (7.6-11.3); RBC Red Blood Cell Count 4.02 M/uL (4.33-5.43)
[2020-01-13 05:12] LABS: ALT/SGPT 62 U/L (12-78); AST/SGOT 242 U/L (15-37); Albumin 2.5 g/dL (3.4-5.0); Alkaline Phosphatase 180 U/L (45-117); BUN Blood Urea Nitrogen 8 mg/dL (7-18); Bicarbonate 26 mmol/L (21-32); Bilirubin Total 1.3 mg/dL (0.2-1.0); Magnesium 1.7 mg/dL (1.8-2.4); Phosphorus 2.1 mg/dL (2.5-4.9); Potassium 3.3 mmol/L (3.5-5.1); Sodium Level 143 mmol/L (136-145)
[2020-01-13 05:25] LABS: Glucose Level 36 mg/dL (74-106)
[2020-01-13] MEDS ORDERED: D50W 25 GM/50 ML SYRINGE/VIAL IV ONE (05:39)
[2020-01-13] MEDS ORDERED: MAGNESIUM SULFATE 1 gm IVPB 1 GM/100 ML BAG IV ONE ×2 (05:56→06:21)
[2020-01-13] MEDS ORDERED: POTASSIUM PHOS IN 0.9 % NACL 15 MMOL/250 ML BAG IV ONE ×2 (05:57→08:00)
[2020-01-13] MEDS ORDERED: NA CHLORIDE 0.9% 500 ML ONE (06:57)
[2020-01-13] MEDS: INSULIN -REGULAR HUMAN 50 UNIT/0.5 ML ML SQ SCH ×5 (07:30→20:47)
[2020-01-13 07:52] LABS: Thyroid Stimulating Hormone 6.79 uIU/mL (0.360-3.740)
[2020-01-13] MEDS ORDERED: INSULIN GLARGINE 100 UNITS/ML SQ SCH (08:00)
[2020-01-13] MEDS: KCL 20 MEQ/100 mL IVPB 20 MEQ/100 ML BAG IV SCH ×2 (08:49→10:39)
[2020-01-13] MEDS: THYROID 30 MG TAB PO SCH (08:50)
[2020-01-13] MEDS: THIAMINE HCL 100 MG TABLET PO SCH (08:50)
[2020-01-13] MEDS: gemfibroziL 600 MG TAB PO SCH ×2 (08:50→20:05)
[2020-01-13] MEDS: ENOXAPARIN 40 MG/0.4 ML SQ SCH (08:50)
[2020-01-13] MEDS: METOPROLOL TAR 25 MG TAB PO SCH ×2 (08:50→17:05)
[2020-01-13] MEDS: FOLIC ACID 1 MG TABLET PO SCH (08:50)
[2020-01-13] MEDS: PREGABALIN 50 MG CAP PO SCH ×2 (08:50→20:04)
[2020-01-13] MEDS: MULTIVITAMIN TAB PO SCH (08:50)
[2020-01-13] MEDS: NICOTINE 21 MG/PAT TD SCH (08:51)
[2020-01-13] MEDS: FOLIC ACID 1 MG, MULTIVITAMINS INJ 10 ML, THIAMINE HCL 100 MG in NA CHLORIDE 0.9% 1,000 ML IV SCH (08:52)
[2020-01-13] MEDS ORDERED: NICOTINE 21 MG/PAT TD ONE (08:55)
[2020-01-13] MEDS ORDERED: PREGABALIN 50 MG CAP ONE ×2 (08:56→20:10)
[2020-01-13] MEDS ORDERED: LORazepam 2 MG/ML VIAL ONE ×2 (08:56→20:09)
[2020-01-13] MEDS ORDERED: MULTIVITAMIN TAB PO ONE (08:56)
[2020-01-13] MEDS ORDERED: FOLIC ACID 1 MG TABLET ONE (08:56)
[2020-01-13] MEDS ORDERED: ENOXAPARIN 40 MG/0.4 ML SQ ONE (08:57)
[2020-01-13] MEDS ORDERED: INSULIN -REGULAR HUMAN 50 UNIT/0.5 ML ML ONE ×3 (08:57→20:57)
[2020-01-13] MEDS ORDERED: METOPROLOL TAR 25 MG TAB ONE ×2 (08:57→17:01)
[2020-01-13] MEDS ORDERED: THIAMINE HCL 100 MG TABLET ONE (08:58)
[2020-01-13] MEDS ORDERED: KCL 20 MEQ/100 mL IVPB 20 MEQ/100 ML BAG IV ONE ×2 (08:58→10:50)
--- NOTE | 2020-01-13 13:15 | RAD REPORT ---
EXAM DESCRIPTION: CT - Head Brain Wo Cont - 01/13/2020 1:06 pm CLINICAL HISTORY: Numbness COMPARISON: 2017 TECHNIQUE: Computed axial tomography of the head was obtained. IV contrast was not requested. All CT scans are performed using dose optimization technique as appropriate and may include automated exposure control or mA/KV adjustment according to patient size. FINDINGS: An intracranial bleed is not seen . The ventricles are normal in caliber. No extra-axial fluid collection is noted. Fluid is present within the right maxillary sinus. Additional mild to moderate chronic ethmoid and mi ld left maxillary sinusitis is present. Right mastoid is opacified IMPRESSION: No acute intracranial abnormality is seen. If patient's symptoms persist MRI of the bra in would be recommended. Acute and chronic sinusitis Opacification right mastoid can be seen with mastoiditis
--- NOTE | 2020-01-13 14:55 | P.PN ---
Subjective Date of Service: 01/13/20 Primary Care Provider: None, previously Dr. Gordon Chief Complaint: ETOH withdrawal, hyperglycemia Subjective: No new changes (Patient reports overall feeling okay this morning, it is not feel anxious or shaky. Does report right lower leg/foot numbness that has been present since just prior to admission) Physical Examination - Vital Signs Temperature: 98.5 F Blood Pressure: 114/90 Pulse: 81 Respirations: 14 Pulse Ox (%): 100 - Physical Exam General: Alert, In no apparent distress, Oriented x3 HEENT: Sclerae nonicteric Neck: Supple, No LAD Respiratory: Clear to auscultation bilaterally, Normal air movement Cardiovascular: No edema, Normal pulses (DP 2+ bilaterally), Regular rate/rhythm, Normal S1 S2 Gastrointestinal: Soft and benign, Non-distended, No tenderness Musculoskeletal: No erythema, No tenderness Integumentary: No rashes Neurological: Other (Moderate-significant decreased sensation from lower-mid gipson to toes. normal bilateral patellar reflexes), Abnormal strength (unable to dorsiflex R foot. 4/5 plantar flexion) - Studies Laboratory Data (last 24 hrs) 01/12/20 17:08: PT 12.1, INR 1.03 01/12/20 17:08: WBC 9.9, Hgb 14.9, Hct 44.3, Plt Count 209 01/12/20 17:08: Sodium 133 L, Potassium 3.6, BUN 11, Creatinine 1.69 H, Glucose 652 H*, Magnesium 1.1 L* D, Total Bilirubin 1.2 H, AST 243 H, ALT 67, Alkaline Phosphatase 200 H Assessment & Plan Physician Review Additional Text: Acute alcohol withdrawal Diabetes mellitus type 1 with hyperglycemia without acidosis Hypomagnesemia Acute kidney injury Hypertension Hyperlipidemia Tobacco abuse Plan Acute alcohol withdrawal: -Patient hypertensive, tachycardic with anxiety/agitation on admission. -admitted to ICU, WAS protocol, IV fluids, thiamine, banana bag, electrolyte protocol was ordered -pts WAS scores overnight/this morning : 4s -seems to be doing ok today -suspect tonight/tomorrow morning is 48-72hrs from last drink Diabetes mellitus type 1 with hyperglycemia without acidosis: -Initial anion gap is 16, ABG shows no acidosis. -Patient received IV insulin and 2 units of normal saline bolus in the emergency department. -continue long-acting insulin & sliding scale and a.c. HS Accu-Cheks as well as ADA diet. -continue to monitor patient's blood sugar chemistries closely. -doing better R Foot weakness/Decreased sensation -pt reports this began yesterday prior to admission -he is unsure of any trauma, stating he doesn't remember all the events from the past few days -diminished sensation from mid lower R leg down, unable to dorsiflex foot -no swelling / signs of trauma of R leg and lower back -does have h/o "breaking that foot" in past, but states these symptoms are new -will obtain CT head Hypomagnesemia: -Initial magnesium 1.1. Patient received 2 g magnesium the emergency department. Continue with magnesium protocol. Acute kidney injury: -Continue with IV hydration at this time. -hold lisinopril at this time. Hypertension: -Hold lisinopril, continue with p.r.n. medications at this time. Hyperlipidemia: continue patient's home medications. Tobacco abuse: Will provide patient with nicotine patch. Patient reports smoking approximately 1.5 packs per day. Counseled on need for tobacco cessation. Time Spent Managing Pts Care (In Minutes): 40
[2020-01-14] MEDS: LORazepam 2 MG/ML VIAL IV SCH ×3 (01:31→09:04)
[2020-01-14] MEDS ORDERED: METOPROLOL TAR 25 MG TAB ONE (01:41)
[2020-01-14] MEDS ORDERED: LORazepam 2 MG/ML VIAL ONE (01:41)
[2020-01-14 04:13] VITALS: TEMP 98.6
[2020-01-14 04:39] LABS: Absolute Lymphocytes (CBC) 2.4 K/uL (0.7-4.9); Basophils % 1.2 % (0-1.3); Hematocrit 35.4 % (39.6-49.0); Lymphocytes % 40.3 % (15.3-44.8); MPV 9.3 fL (7.6-11.3); RBC Red Blood Cell Count 3.59 M/uL (4.33-5.43)
[2020-01-14 04:57] LABS: ALT/SGPT 60 U/L (12-78); AST/SGOT 197 U/L (15-37); Albumin 2.1 g/dL (3.4-5.0); Alkaline Phosphatase 197 U/L (45-117); BUN Blood Urea Nitrogen 4 mg/dL (7-18); Bicarbonate 27 mmol/L (21-32); Glucose Level 231 mg/dL (74-106); Magnesium 1.6 mg/dL (1.8-2.4); Phosphorus 2.2 mg/dL (2.5-4.9); Protein, Total 5.5 g/dL (6.4-8.2); Sodium Level 140 mmol/L (136-145)
[2020-01-14] MEDS ORDERED: MAGNESIUM SULFATE 1 gm IVPB 1 GM/100 ML BAG IV ONE (05:11)
[2020-01-14] MEDS: METOPROLOL TAR 25 MG TAB PO SCH (05:25)
[2020-01-14] MEDS ORDERED: Magnesium Sulfate 2gm IVPB 2 G/50 ML BAG IV ONE (05:33)
[2020-01-14] MEDS: THYROID 30 MG TAB PO SCH (06:32)
[2020-01-14] MEDS: INSULIN -REGULAR HUMAN 50 UNIT/0.5 ML ML SQ SCH ×2 (07:30→11:30)
[2020-01-14 08:18] VITALS: O2SAT 99
[2020-01-14] MEDS: FOLIC ACID 1 MG, MULTIVITAMINS INJ 10 ML, THIAMINE HCL 100 MG in NA CHLORIDE 0.9% 1,000 ML IV SCH (09:16)
[2020-01-14] MEDS: ENOXAPARIN 40 MG/0.4 ML SQ SCH (09:29)
[2020-01-14] MEDS: NICOTINE 21 MG/PAT TD SCH (09:30)
[2020-01-14] MEDS: PREGABALIN 50 MG CAP PO SCH (09:31)
[2020-01-14] MEDS: FOLIC ACID 1 MG TABLET PO SCH (09:32)
[2020-01-14] MEDS: MULTIVITAMIN TAB PO SCH (09:32)
[2020-01-14] MEDS ORDERED: INSULIN -REGULAR HUMAN 50 UNIT/0.5 ML ML ONE ×2 (09:32→12:12)
[2020-01-14] MEDS ORDERED: NICOTINE 21 MG/PAT TD ONE (09:33)
[2020-01-14] MEDS: POTASS/SODIUM PHOSPHATE 1 PKT POWD.PACK PO SCH ×3 (09:34→11:03)
[2020-01-14] MEDS ORDERED: MULTIVITAMIN TAB PO ONE (09:34)
[2020-01-14] MEDS ORDERED: FOLIC ACID 1 MG TABLET ONE (09:34)
[2020-01-14] MEDS ORDERED: PREGABALIN 50 MG CAP ONE (09:34)
[2020-01-14] MEDS ORDERED: ENOXAPARIN 40 MG/0.4 ML SQ ONE (09:35)
[2020-01-14] MEDS ORDERED: CALCIUM GLUC 10% INJ 9.3 MEQ in NA CHLORIDE 0.9% 100 ML IV ONE (09:35)
[2020-01-14] MEDS: THIAMINE HCL 100 MG TABLET PO SCH (09:45)
[2020-01-14] MEDS ORDERED: THIAMINE HCL 100 MG TABLET ONE (09:53)
[2020-01-14] MEDS: gemfibroziL 600 MG TAB PO SCH (10:07)
--- NOTE | 2020-01-14 12:24 | RAD REPORT ---
EXAM DESCRIPTION: US - Extremity Venous Uni Ltd - 01/14/2020 12:14 pm CLINICAL HISTORY: N Leg swelling and edema. COMPARISON: No comparisons FINDINGS: Right lower extremity venous system was interrogated with Doppler technique. Normal flow, compressibility and augmentation was noted. There is no DVT present. IMPRESSION: No evidence of right lower extremity deep venous thrombosis.
--- NOTE | 2020-01-14 12:31 | RAD REPORT ---
EXAM DESCRIPTION: US - Lower Extremity Artery Uni Ltd - 01/14/2020 12:14 pm CLINICAL HISTORY: N Right leg pain. COMPARISON: No comparisons FINDINGS: Real-time Doppler interrogation of the right lower extremity arterial system was performed . Mild multifocal multisegmental atheromatous plaquing is present. Triphasic and biphasic waveforms are seen throughout the right lower extremity arterial system. No hi gh-grade stenosis or complete occlusion seen. IMPRESSION: Right lower extremity arterial system demonstrates mild distal peripheral vascular disea se.
--- NOTE | 2020-01-14 13:48 | P.DS ---
Admission Date: 01/12/20 Discharge Date: 01/14/20 Primary Care Provider: None, previously Dr. Gordon Disposition: ROUTINE DISCHARGE Discharge Condition: FAIR Reason for Admission: ETOH withdrawal, hyperglycemia - Problems (1) Type 1 diabetes mellitus with hyperglycemia Current Visit: Yes Status: Acute (2) Alcohol abuse Current Visit: Yes Status: Acute (3) Peripheral neuropathy Current Visit: Yes Status: Acute Brief History of Present Illness: 44-year-old gentleman with a history of type 1 diabetes and alcohol abuse presented to the emergency department with hyperglycemia. His blood sugar was 600, had mild anion gap. Patient was admitted for DM type 1 with hyperglycemia and possible alcohol withdrawal. Hospital Course: Patient admitted to the medical floor, treated with IV hydration. Insulin therapy comparison of long-acting insulin and insulin sliding scale. He was also placed on CIWA protocol. He developed hypoglycemia once during the hospital stay. Patient did not require Ativan for alcohol withdrawal. He remained alert and oriented and without symptoms of alcohol withdrawal. He was complaining of numbness in the right lower extremity. Noted patient is on pregabalin for peripheral neuropathy. CT head was negative for any acute event. Venous Doppler and arterial Doppler of the extremity were all negative. Vital Signs/Physical Exam: Temp Pulse Resp BP Pulse Ox 98.6 F 72 15 123/73 98 01/14/20 04:12 01/14/20 05:25 01/14/20 04:12 01/14/20 05:25 01/14/20 04:12 General: Alert, In no apparent distress, Oriented x3 HEENT: Mucous membr. moist/pink Neck: Supple Respiratory: Clear to auscultation bilaterally, Normal air movement Cardiovascular: No edema, Regular rate/rhythm, Normal S1 S2 Gastrointestinal: Normal bowel sounds, Soft and benign, Non-distended, No tenderness Musculoskeletal: No swelling, No erythema Integumentary: No rashes Neurological: Normal strength at 5/5 x4 extr Laboratory Data at Discharge: WBC 6.1 K/uL (4.3-10.9) D 01/14/20 04:06 Hgb 12.3 g/dL (13.6-17.9) L 01/14/20 04:06 Hct 35.4 % (39.6-49.0) L 01/14/20 04:06 Plt Count 126 K/uL (152-406) L D 01/14/20 04:06 PT 12.1 SECONDS (9.5-12.5) 01/12/20 17:08 INR 1.03 01/12/20 17:08 Sodium 140 mmol/L (136-145) 01/14/20 04:06 Potassium 4.0 mmol/L (3.5-5.1) 01/14/20 04:06 BUN 4 mg/dL (7-18) L 01/14/20 04:06 Creatinine 0.73 mg/dL (0.55-1.3) 01/14/20 04:06 Glucose 231 mg/dL (74-106) H 01/14/20 04:06 Phosphorus 2.2 mg/dL (2.5-4.9) L 01/14/20 04:06 Magnesium 1.6 mg/dL (1.8-2.4) L 01/14/20 04:06 Total Bilirubin 1.0 mg/dL (0.2-1.0) 01/14/20 04:06 AST 197 U/L (15-37) H 01/14/20 04:06 ALT 60 U/L (12-78) 01/14/20 04:06 Alkaline Phosphatase 197 U/L (45-117) H 01/14/20 04:06 Home Medications: Glucagon,Human Recombinant [Glucagon Emergency Kit] 1 mg IM PRN PRN 05/06/17 Insulin -Regular Human [Novolin -R*] See Protocol SQ ACHS 05/06/17 Insulin Detemir [Levemir*] 16 units SQ DAILY 05/06/17 Multivitamin [Daily Multiple Vitamin] 1 tab PO DAILY 05/06/17 Pregabalin [Lyrica*] 100 mg PO BID 05/06/17 Thyroid Tab [[place] Thyroid*] 120 mg PO DAILY 05/06/17 gemfibroziL [Lopid*] 600 mg PO BID 05/06/17 Thiamine HCl [Vitamin B-1*] 100 mg PO DAILY #30 tablet 01/14/20 New Medications: Thiamine HCl [Vitamin B-1*] 100 mg PO DAILY #30 tablet Diet: ADA Activity: Ad katerina Time spent managing pt's care (in minutes): 35
[2020-01-14 14:35] VITALS: BP 122/83
[2020-01-14] MEDS ORDERED: LORazepam 2 MG/ML VIAL IV SCH ×2 (20:00→23:30)
--- NOTE | 2020-01-14 20:04 | EKG ---
Test Date: 2020-01-12 Test Time: 17:19:06 Dining Room Host: MEENAKSHI MEASUREMENT RESULTS: Intervals: Rate: 126 WI: 138 QRSD: 66 QT: 340 QTc: 492 [place]: P: 59 WI: 138 QRS: 40 T: 66 INTERPRETIVE STATEMENTS: Sinus tachycardia Possible Left atrial enlargement Borderline ECG Compared to ECG 12/09/2019 11:32:54 Sinus rhythm no longer present ST (T wave) deviation no longer present Prolonged QT interval no longer present Electronically Signed On 01-14-20 19:59:42 CDT by Familia Pickett
== END 2020-01-14 15:03 | disposition home or self-care (01) | DRG 638 ==
LOC: ER 16:50 → ERHOLD 19:14
PROVIDERS: ADMIT Hospitalist; ATTEND Internal Medicine
DX: E10.65 Type 1 diabetes mellitus with hyperglycemia (principal); F10.239 Alcohol dependence with withdrawal, unspecified; N17.9 Acute kidney failure, unspecified; I10 Essential (primary) hypertension; E78.5 Hyperlipidemia, unspecified; R00.0 Tachycardia, unspecified; F41.9 Anxiety disorder, unspecified; F17.210 Nicotine dependence, cigarettes, uncomplicated; E83.42 Hypomagnesemia; E10.40 Type 1 diabetes mellitus with diabetic neuropathy, unspecified; M21.41 Flat foot [pes planus] (acquired), right foot; E10.649 Type 1 diabetes mellitus with hypoglycemia without coma; Z79.4 Long term (current) use of insulin; Z88.5 Allergy status to narcotic agent; Z79.899 Other long term (current) drug therapy; Z56.0 Unemployment, unspecified; Z20.828 Contact with and (suspected) exposure to other viral communicable diseases
CPT/HCPCS: 36415; 70450; 71045; 80048; 80053; 80076; 81003; 82805; 82947; 83735; 83880; 83930; 84100; 84439; 84443; 84484; 85025; 85610; 93005; 93926; 93971; 96361; 96365; 96375; 99284; J0610; J1650; J1815; J2270; J3360; J3411; J3475; J3480; J7030; J7040; U0003

== ENCOUNTER 2020-01-24 08:49 | Emergency (ER) | payer SELFPAY ==
--- OUTSIDE RECORDS SUMMARY | 2020-01-24 08:56 | XMS REPORT | Clinical Summary ---
:1975 Author Organization [facility] Address [address] [place] [address] Care Team Providers Name Role Phone Unavailable [...] Not on file Results Not on fileafter 01/23/2019 Advance Directives For more information, please contact:[facility] [employer] LtdBoundary Community HospitalWhite Shoe Media [id number] [place] [address] [place] [id number] Code Status Date Activated Date Inactivated Comments Full Code 02/11/2018 10:27 PM 02/13/2018 7:55 PM This code status was determined by: Patient
--- OUTSIDE RECORDS SUMMARY | 2020-01-24 08:57 | XMS REPORT | Continuity of Care Document ---
:1975 Author Organization [facility] t Address [address] [place] [address] Dr. Palma [address] [place] [address] Care Team Providers Name Role Phone LEONID [...] [facility]08 [facility] 00 [place] Acute Acute Disease Active 2017-[address] [facility] encephalop encephalop 0-08 [facility] - athy athy 00:00: Medical 00 [place] Hyperglyce Hyperglyce Disease Active 2017-[address] yvan yvan 0-08 [facility] 00 [place] Diabetes Diabetes Disease Active 2017[facility] 00 [place] Hyperchole Hyperchole Disease Active 2017-[address] steremia steremia 0-08 [facility] 00 [place] Thyroid Thyroid Disease Active 2017-[address] [facility] disease disease 0-08 [facility] 00 [place] Leukocytos Leukocytos Disease Active 2017-[address] is is 0-08 [facility] 00 [place] Anemia Anemia Disease Active 2017-[address] [facility] [address] 0-08 [facility] 00 [place] Convulsive Convulsive Disease Active 2017-[address] seizure seizure 0-07 [facility] - disorder disorder 00:[facility]: Medica l with with 00 Center status status epilepticu epilepticu s s Allergies, Adverse Reactions, Alerts This patient has no known allergies or adverse reactions. Social History Social Habit Start Date Stop Date Quantity Comments Source Sex Assigned At [facility] Smoking Status Start Date Stop Date Source Current every day smoker 2018-02-13 00:00:00 [facility] Medications Ordered Filled Start Stop [...] Source Name Name Influenza Four-QIV 2018-02-13 Completed [facility] Non-PF 5+ YR 00:00:00 [facility] Procedures This patient has no known procedures. Results Test Description Test Time Test Comments Results Result Comments Source BLOOD CULTURE 2018-02-17 06:00:00 Test Item Value Reference Range Interpretation Comme nts CULTURE (BEAKER) (test code = 1095) No growth in 5 days URINE [id number] 10:25:00 Test Item Value Reference Range Interpretation Comments CULTURE (BEAKER) (test code = 1095) No growth POCT-GLUCOSE [id number] 17:10:00 Test Item Value Reference Range Interpretation Comments POC-GLUCOSE METER 232 mg/dL 70-110 H TESTED AT [facility] 6720 ([facility]) (test code = DARRYLANA Gaerth [facility] 1537) [address] CT, CTANGIO [id number] 16:41:00CTV pleaseFINAL REPORT CTV brain 02/13/2018 4:35 [...] Sky Verified Date/Time: 02/13/2018 16:41:24 Reading Location: [facility] [address] Radiology Reading Room POCT-GLUCOSE [id number] 13:07:00 Test Item Value Reference Range Interpretation Comments POC-GLUCOSE METER 311 mg/dL 70-110 H Notified Gareth Coronado MD/TESTED (GLORIA) (test code = AT [facility] 67[address] [facility] 1536) [facility] 47[address] 0 IRON, TIBC, % SAT. (WITHOUT FERRITIN)2018-02-13 [...] % 20-55 (test code = 2590) POCT-GLUCOSE [id number] 08:50:00 Test Item Value Reference Range Interpretation Comments POC-GLUCOSE METER 348 mg/dL 70-110 H Notified R N MD/TESTED (BEAKER) (test code = [facility] 67[address] [facility] 1538) [place] [address] 0 BASIC METABOLIC [id number] 08:31:00 Test Item Value Reference Range Interpretation [...] NOT APPLICABLE FOR DIALYSIS PATIEN TS. LIPID [id number] 08:31:00 Test Item Value Reference Range Interpretation [...] 130-159 High 160-189 Very High >=190IMMATURE RETICULOCYTE [id number] 08:16:00 Test Item Value Reference Range Interpretation Comments IMMATURE RETIC FRACTION (BEAKER) 8.600 % 2.300-13.400 (test code = 1447) RETICULOCYTE COUNT PCT (BEAKER) (test 1.4 % 0.5-1.8 code = 575) CBC W/PLT COUNT & AUTO [id number] 08:16:00 Test Item Value Reference Range Interpretation [...] PERCENT (BEAKER) (test code = 2801) POCT-GLUCOSE [id number] 21:18:00 Test Item Value Reference Range Interpretation Comments POC-GLUCOSE METER 226 mg/dL 70-110 H TESTED AT [facility] 6720 (BEAKER) (test code = [place] 1538) [address] MR, BRAIN, WITHOUT [id number] 19:43:00FINAL REPORT MRI brain without contrast INDICATION: [...] thrombus cannot be excluded. The major proximal [place] of [place] flow voids are maintained. Mild [...] MDReport Verified Date/Time: 02/12/2018 19:43:32 Reading Location: [facility] [address] Radiology Reading Room POCT-GLUCOSE [id number] 19:01:00 Test Item Value Reference Range Interpretation Comments POC-GLUCOSE METER 362 mg/dL 70-110 H TESTED AT [facility] 6720 ([facility]) (test code = CESAR Servin [place] 1538) [id number] EEG AWAKE AND [id number] 17:46:00Reason for exam:->SeizureShould this be performed at the bedside?->[facility] REPORTDATE OF TEST: [id number] OF REPORT: [id number]: [id number]: [id number] time: 14:04Stop time: 14:24ICD-10: R56.9CPT Code: 93684ZMNENFA: 40 y old 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, [...] this report.Queenie Loco MD, PhDClinical Neurophysiology/Epilepsy AttendingCHI [facility] POCT- GLUCOSE [id number] 15:33:00 Test Item Value Reference Range Interpretation Comments POC-GLUCOSE METER 213 mg/dL 70-110 H TESTED AT [facility] 67 (BEAKER) (test code = CESAR Servin [facility] 1538) [address] TSH/FREE T4 IF [id number] 09:35:00 Test Item Value Reference Range Interpretation Comments THYROID STIMULATING HORMONE 4.03 uIU/mL 0.35-4.94 (BEAKER) (test code = 772) HEMOGLOBIN [id number] 08:47:00 Test Item Value Reference Range Interpretation Comments HEMOGLOBIN A1C (BEAKER) (test code = 6.5 % 4.3-6.1 H 368) POCT-GLUCOSE [id number] 07:55:00 Test Item Value Reference Range Interpretation Comments POC-GLUCOSE METER 219 mg/dL 70-110 H TESTED AT [facility] 67 (BEAKER) (test code = DARRYLANA Gareth [facility] 1538) [address] [id number] 05:00:00 Test Item Value Reference Range Interpretation Comments MAGNESIUM (BEAKER) (test code = 2.1 mg/dL 1.6-2.6 627) BASIC METABOLIC [id number] 05:00:00 Test Item Value Reference Range Interpretation [...] PATIEN TS. CBC W/PLT COUNT & AUTO [id number] 04:40:00 Test Item Value Reference Range Interpretation [...] PERCENT (BEAKER) (test code = 2801) POCT-GLUCOSE [id number] 04:31:00 Test Item Value Reference Range Interpretation Comments POC-GLUCOSE METER 183 mg/dL 70-110 H TESTED AT [facility] 6720 (BEAKER) (test code = CESAR Servin [facility] 1538) [address] RAD, ABDOMEN/KUB, [id number] 01:33:00Reason for exam:->Abdominal distension, obtundationFINAL REPORT CLINICAL [...] Leon Verified Date/Time: 02/12/2018 01:33:19 Reading Location: [facility] [address] [place] [address] Reading Room -GLUCOSE [id number] 00:49:00 Test Item Value Reference Range Interpretation Comments POC-GLUCOSE METER 346 mg/dL 70-110 H TESTED AT [facility] 6720 (BEAKER) (test code = [place] 1538) [address] CBC W/PLT COUNT & AUTO [id number] 00:44:00 Test Item Value Reference Range Interpretation [...] (test code = 2801) RAPID DRUG SCREEN, [id number] 00:35:00 Test Item Value Reference Range Interpretation [...] situations. Chain of custody not maintained. Some ceru-lgj-julaajq medications, as well as adulterants, may cause inaccurate results. Clinical correlation should be applied. A more comprehensive drug screen or confirmation of a detected drug may be performed upon request. TROPONIN [id number] 00:15:00 Test Item Value Reference Range Interpretation [...] acute neurological disease, and persistent tachyarrhythmia.COMPREHENSIVE METABOLIC [id number] 00:09:00 Test Item Value Reference Range Interpretation [...] APPLICABLE FOR DIALYSIS PATIEN TS. URINALYSIS W/ [id number] 00:06:00 Test Item Value Reference Range Interpretation [...] = 2795) RAD, CHEST, 1 VIEW, NON [id number] 23:11:00Reason for exam:->Obtundation with coarse respirations, baselineShould this be performed at the [facility]?->YesFINAL REPORT RAD, CHEST, 1 VIEW, NON DEPT INDICATION: Obtundation with coarserespirations, baseline COMPARISON: None. FINDINGS: Portable frontal view of the chest. IMPRESSION: Support Lines: None. Lungs and pleura: Clear lungs. No pneumothorax.Heart and mediastinum: Unremarka ble. Additional findings: Fluid and gaseous distention of the gastric lumen. Signed: JR Lozano Robert MDReport Verified Date/Time: 02/11/2018 23:11:04 Reading Location: [address]
--- NOTE | 2020-01-24 10:50 | ER ---
Nurse's Notes [facility] Name: Surjit Stubbs Age: 44 yrs Sex: Male : 1975 Arrival Date: 01/24/2020 Time: 08:53 Bed 17 Private MD: Diagnosis: Pain in right ankle and joints of right foot Presentation: 01/23 08:53 Chief complaint: Patient states: "I passed out because of my low blood sugar on the 6th aa5 and I was seen in the ER that time but now my right foot is swollen and it hurts". Swelling noted to right foot and right ankle. 08:53 Coronavirus screen: Client denies travel out of the [place] in the last 14 days. At this aa5 time, the client does not indicate any symptoms associated with coronavirus-19. Ebola Screen: Patient negative for fever greater than or equal to 101.5 degrees Fahrenheit, and additional compatible Ebola Virus Disease symptoms. Initial Sepsis Screen: Does the patient meet any 2 criteria? No. Patient's initial sepsis screen is negative. Does the patient have a suspected source of infection? No. Patient's initial sepsis screen is negative. Risk Assessment: Do you want to hurt yourself or someone else? Patient reports no desire to harm self or others. Onset of symptoms was 2019. 08:53 Acuity: TOI 4 aa5 08:53 Method Of Arrival: EMS: [facility] aa5 Historical: - Allergies: 08:56 tramadol; aa5 - PMHx: 08:56 Diabetes - IDDM; High Cholesterol; Hypothyroidism; neuropathy; Seizures; aa5 - Immunization history:: Adult Immunizations up to date. - Social history:: Smoking status: Patient reports the use of cigarette tobacco products, smokes one pack cigarettes per day. Screenin:00 Abuse screen: Denies threats or abuse. Nutritional screening: No deficits noted. aa5 Tuberculosis screening: No symptoms or risk factors identified. Fall Risk None identified. Assessment: 08:53 General: Appears comfortable, Behavior is calm, cooperative. Pain: Complains of pain in aa5 dorsum of right foot Pain radiates to right ankle Pain currently is 6 out of 10 on a pain scale. Quality of pain is described as tender, Is continuous. Neuro: Level of Consciousness is awake, alert, obeys commands, Oriented to person, place, time, situation. Cardiovascular: Heart tones S1 S2 present Rhythm is regular. Respiratory: Airway is patent Respiratory effort is even, unlabored, Respiratory pattern is regular, symmetrical. GI: No signs and/or symptoms were reported involving the gastrointestinal system. : No signs and/or symptoms were reported regarding the genitourinary system. EENT: No signs and/or symptoms were reported regarding the EENT system. Derm: Skin is pink, warm \\T\\ dry. Musculoskeletal: Swelling present in dorsum of right foot and right ankle. 09:35 Reassessment: Pt to radiology via wheelchair. aa5 10:30 Reassessment: Patient appears in no apparent distress at this time. Patient and/or ca1 family updated on plan of care and expected duration. Pain level reassessed. 11:09 Reassessment: BP elevated upon recheck. Notified provider, says okay to discharge. Pt ca1 asymptomatic. Vital Signs: 08:55 BP 150 / 94; Pulse 76; Resp 18 S; Temp 98.1(O); Pulse Ox 100% on R/A; Weight 68.04 kg aa5 (R); Height 5 ft. 9 in. (175.26 cm) (R); Pain 6/10; 11:05 BP 165 / 105; Pulse 93; Resp 16 S; Pulse Ox 100% on R/A; ca1 08:55 Body Mass Index 22.15 (68.04 kg, 175.26 cm) aa5 ED Course: 08:53 Patient arrived in ED. aa5 08:53 Arm band placed on Patient placed in an exam room, on a stretcher. aa5 08:53 Patient has correct armband on for positive identification. Bed in low position. Call aa5 light in reach. Side rails up X 1. 08:55 Triage completed. aa5 08:56 Shasta Read RN is Primary Nurse. aa5 08:57 Kaylee Acosta FNP-C is PHCP. kb 08:58 Reno Lazaro MD is Attending Physician. kb 09:38 Report given to MELANIE Ely. aa5 09:40 Primary Nurse role handed off by Shasta Read RN ca1 09:40 Jhoana Lemos RN is Primary Nurse. ca1 10:24 US Extremity Venous Unilateral Ltd In Process Unspecified. EDMS 10:49 Ankle Right 3 View XRAY In Process Unspecified. EDMS 11:08 No provider procedures requiring assistance completed. Patient did not have IV access ca1 during this emergency room visit. Stevie wrap to right ankle. 11:09 X-ray completed. Portable x-ray completed in exam room. Patient tolerated procedure mh1 well. Administered Medications: No medications were administered Outcome: 10:50 Discharge ordered by . kb 11:09 Discharged to home via wheelchair. ca1 11:09 Condition: stable 11:09 Discharge instructions given to patient, Instructed on discharge instructions, follow up and referral plans. Demonstrated understanding of instructions, follow-up care. 11:17 Patient left the ED. ca1 Signatures: Dispatcher [employer] EDMS Kaylee Acosta, LEATHER PATCHER-C LEATHER PATCHER-CkHeide Lam 1 Shasta Read, RN RN aa5 Jhoana Lemos RN RN ca1 Corrections: (The following items were deleted from the chart) 11:15 10:30 Pulse 93bpm; Resp 16bpm; Spontaneous; Pulse Ox 100% RA; ca1 ca1 11:16 11:15 Reassessment: BP elevated upon recheck. Notified provider, says okay to ca1 discharge. Pt asymptomatic ca1 11:16 11:09 Discharge instructions given to patient, Instructed on discharge instructions, ca1 follow up and referral plans. no drinking with medication, no driving heavy equipment, medication usage, Demonstrated understanding of instructions, follow-up care, medications, Prescriptions given X 1, ca1 11:16 10:30 BP 165 / 105; Pulse 93bpm; Resp 16bpm; Spontaneous; Pulse Ox 100% RA; ca1 ca1 11:16 11:12 BP 165 / 105; Pulse 93bpm; Resp 16bpm; Spontaneous; Pulse Ox 100% RA; ca1 ca1
--- NOTE | 2020-01-24 10:50 | EDPHYS ---
Physician Documentation [facility] Name: Surjit Stubbs Age: 44 yrs Sex: Male : 1975 Arrival Date: 01/24/2020 Time: 08:53 Bed 17 Private MD: ED Physician Reno Lazaro HPI: 01/23 09:30 This 44 yrs old Male presents to ER via EMS with complaints of Foot Pain. kb 09:30 The patient presents with an injury, pain, swelling, tenderness. The complaints affect kb the right ankle. Onset: The symptoms/episode began/occurred 2 week(s) ago. Context: The problem was sustained at home, resulted from the patient falling, The patient can fully bear weight on the affected extremity. the patient is able to ambulate, with mild difficulty. Associated signs and symptoms: Pertinent positives: swelling, Pertinent negatives: calf tenderness, fever, nausea, numbness, rash, tingling, vomiting, warmth, weakness. Modifying factors: The symptoms are alleviated by nothing, the symptoms are aggravated by weight bearing. Severity of symptoms: At their worst the symptoms were moderate, in the emergency department the symptoms are unchanged. The patient has not experienced similar symptoms in the past. The patient has not recently seen a physician. Pt reports he had a syncopal episode on 01/11/20 that caused him to fall. Reports right ankle pain with swelling to ankle and foot. Denies any new injury. . Historical: - Allergies: 08:56 tramadol; aa5 - PMHx: 08:56 Diabetes - IDDM; High Cholesterol; Hypothyroidism; neuropathy; Seizures; aa5 - Immunization history:: Adult Immunizations up to date. - Social history:: Smoking status: Patient reports the use of cigarette tobacco products, smokes one pack cigarettes per day. ROS: 09:30 Constitutional: Negative for fever, chills, and weight loss, Cardiovascular: Negative kb for chest pain, palpitations, and edema, Respiratory: Negative for shortness of breath, cough, wheezing, and pleuritic chest pain, Abdomen/GI: Negative for abdominal pain, nausea, vomiting, diarrhea, and constipation, Back: Negative for injury and pain, Skin: Negative for injury, rash, and discoloration, Neuro: Negative for headache, weakness, numbness, tingling, and seizure. 09:30 MS/extremity: Positive for injury or acute deformity, pain, swelling, tenderness, of the anterior aspect of right ankle and dorsum of right foot. Exam: 09:30 Constitutional: This is a well developed, well nourished patient who is awake, alert, kb and in no acute distress. Head/Face: Normocephalic, atraumatic. Chest/axilla: Normal chest wall appearance and motion. Nontender with no deformity. No lesions are appreciated. Cardiovascular: Regular rate and rhythm with a normal S1 and S2. No gallops, murmurs, or rubs. Normal PMI, no JVD. No pulse deficits. Respiratory: Lungs have equal breath sounds bilaterally, clear to auscultation and percussion. No rales, rhonchi or wheezes noted. No increased work of breathing, no retractions or nasal flaring. Abdomen/GI: Soft, non-tender, with normal bowel sounds. No distension or tympany. No guarding or rebound. No evidence of tenderness throughout. Skin: Warm, dry with normal turgor. Normal color with no rashes, no lesions, and no evidence of cellulitis. Neuro: Awake and alert, GCS 15, oriented to person, place, time, and situation. Cranial nerves II-XII grossly intact. Motor strength 5/5 in all extremities. Sensory grossly intact. Cerebellar exam normal. Normal gait. 09:30 Musculoskeletal/extremity: Extremities: grossly normal except: noted in the dorsum of right foot and anterior aspect of right ankle: pain, swelling, tenderness, ROM: intact in all extremities, Circulation is intact in all extremities. Sensation intact. Weight bearing: able to fully bear weight. Vital Signs: 08:55 BP 150 / 94; Pulse 76; Resp 18 S; Temp 98.1(O); Pulse Ox 100% on R/A; Weight 68.04 kg aa5 (R); Height 5 ft. 9 in. (175.26 cm) (R); Pain 6/10; 11:05 BP 165 / 105; Pulse 93; Resp 16 S; Pulse Ox 100% on R/A; ca1 08:55 Body Mass Index 22.15 (68.04 kg, 175.26 cm) aa5 MDM: 08:58 Patient medically screened. kb 09:34 Data reviewed: vital signs, nurses notes. Data interpreted: Pulse oximetry: on room air kb is 100 %. Interpretation: normal. 10:49 Counseling: I had a detailed discussion with the patient and/or guardian regarding: the kb historical points, exam findings, and any diagnostic results supporting the discharge/admit diagnosis, radiology results, the need for outpatient follow up, a family practitioner, to return to the emergency department if symptoms worsen or persist or if there are any questions or concerns that arise at home. 01/23 09:23 Order name: Ankle Right 3 View XRAY kb 01/23 09:23 Order name: US Extremity Venous Unilateral Ltd; Complete Time: 11:13 kb 01/23 10:52 Order name: Stevie Wrap; Complete Time: 11:07 kb Administered Medications: No medications were administered Disposition: 14:14 Co-signature as Attending Physician, Reno Lazaro MD I agree with the assessment and kdr plan of care. Disposition: 01/24/20 10:50 Discharged to Home. Impression: Pain in right ankle and joints of right foot. - Condition is Stable. - Discharge Instructions: Musculoskeletal Pain, Ankle Sprain, [id number]. - Medication Reconciliation Form, Thank You Letter, Antibiotic Education, Prescription Opioid Use form. - Follow up: Emergency Department; When: As needed; Reason: Worsening of condition. Follow up: Private Physician; When: 2 - 3 days; Reason: Recheck today's complaints, Continuance of care, Re-evaluation by your physician. Signatures: Dispatcher [employer] EDOH Kaylee Acosta, FINANCIAL SYSTEMS ADMINISTRATOR-C FINANCIAL SYSTEMS ADMINISTRATOR-Reno Gil MD MD [facility] Shasta Read RN RN aa5 Jhoana Lemos RN RN ca1 Corrections: (The following items were deleted from the chart) 11:17 10:50 01/24/2020 10:50 Discharged to Home. Impression: Pain in right ankle and joints ca1 of right foot. Condition is Stable. Forms are Medication Reconciliation Form, Thank You Letter, Antibiotic Education, Prescription Opioid Use. Follow up: Emergency Department; When: As needed; Reason: Worsening of condition. Follow up: Private Physician; When: 2 - 3 days; Reason: Recheck today's complaints, Continuance of care, Re-evaluation by your physician. kb
--- NOTE | 2020-01-24 11:12 | RAD REPORT ---
EXAM DESCRIPTION: US - Extremity Venous Uni Ltd - 01/24/2020 10:24 am CLINICAL HISTORY: Pain;Swelling, right COMPARISON: None. TECHNIQUE: Real-time sonographic evaluation of the right lower extremity deep venous systems was per formed. FINDINGS: Normal compressibility, flow augmentation, phasic flow and spontaneous flow are identified in the right lower extremity common femoral, superficial femoral, popliteal and posterior tibial vei ns. No intraluminal filling defects seen. IMPRESSION: No DVT in the right lower extremity.
--- NOTE | 2020-01-24 11:52 | RAD REPORT ---
EXAM DESCRIPTION: RAD - Ankle Right 3 View - 01/24/2020 10:49 am CLINICAL HISTORY: PAINswelling at the ankle COMPARISON: Ankle Right 3 View dated 11/02/2017 FINDINGS: No fracture is identified. No dislocation or periosteal reaction. No joint effusion seen. No joint space narrowing. On the lateral view there is subtle cortical irregularity along the anterio r articular margin of the tibia. No abnormal soft tissue calcification. Significance is doubtful.Surr ounding soft tissue swelling is present primarily anterior and lateral. No calcification or foreign b jc in the soft tissues. IMPRESSION: Ankle soft tissue swelling is present without an acute or destructive bone process confi rmed. Subtle cortical irregularity along the anterior margin of the tibia articular surface is suspected to be artifact. If the patient has continued, unexplained ankle pain and swelling, MR imaging could be performed.
== END 2020-01-24 11:17 | disposition home or self-care (01) ==
LOC: ER 08:49
DX: M25.571 Pain in right ankle and joints of right foot (principal); F17.210 Nicotine dependence, cigarettes, uncomplicated; Z88.5 Allergy status to narcotic agent
CPT/HCPCS: 93971; 99283

== ENCOUNTER 2020-03-30 01:16 | Emergency (ER) | payer SELFPAY ==
--- OUTSIDE RECORDS SUMMARY | 2020-03-30 01:17 | XMS REPORT | Clinical Summary ---
:1975 Author [facility] Address [address] [place] [address] Care Team Providers Name Role Phone Unavailable [...] seizure disorder with status epilepticus Immunizations Name Administration Dates Next Due Influenza Four-QIV Non-PF 5+ YR 02/13/2018 Social History Tobacco Use Types Packs/Day Years Used Date Current Every Day Smoker Smokeless Tobacco: Current User Sex Assigned at Date Recorded Not on file Last Filed Vital Signs Not on file Plan of Treatment Health Maintenance Due Date Last Done Comments PNEUMOCOCCAL VACCINE 0-64 YRS (1 of 1 - PPSV23) 01/26/1980 DIABETIC EYE EXAM 01/26/1984 DIABETIC FOOT EXAM 01/26/1984 URINE MICROALBUMIN 01/26/1984 HEMOGLOBIN A1C 08/12/2018 02/11/2018 INFLUENZA VACCINE (#1) 2020 02/13/2018 LIPID PANEL 02/13/2021 02/13/2018 Results Not on fileafter 03/30/2019 Advance Directives For more information, please contact: [phone] Code Status Date Activated Date Inactivated Comments Full Code 02/11/2018 10:27 PM 02/13/2018 7:55 PM This code status was determined by: Patient
--- OUTSIDE RECORDS SUMMARY | 2020-03-30 01:18 | XMS REPORT | Continuity of Care Document ---
:1975 Author Organization [facility] t Address [address] [place] [address] [address]. [address] [place] [address] Care Team Providers Name Role Phone LEONID [...] [facility] 0[facility]08 [facility] [place] Acute Acute Disease Active 2017-[address] [facility] encephalop encephalop 0-08 [facility] - athy athy 00:00: Medical 00 [place] Hyperglyce Hyperglyce Disease Active 2017-[address] yvan yvan 0-08 [facility] 00 [place] Diabetes Diabetes Disease Active 2017[facility] 00 [place] Hyperchole Hyperchole Disease Active 2017-[address] steremia steremia 0-08 [facility] 00 [place] Thyroid Thyroid Disease Active 2017-[address] [facility] [address] disease disease 0-08 [facility] 00 [place] Leukocytos Leukocytos Disease Active 2017-[address] is is 0-08 [facility] 00 [place] Anemia Anemia Disease Active 2017-[address] [facility] [address] 0-08 [facility] 00 [place] Convulsive Convulsive Disease Active 2017-[address] seizure seizure 0-07 [facility] - disorder disorder 00:00: Medica l with with 00 Center status status epilepticu epilepticu s s Allergies, Adverse Reactions, Alerts This patient has no known allergies or adverse reactions. Social History Social Habit Start Date Stop Date Quantity Comments Source Sex Assigned At [facility] Tobacco use and 2018-02-13 2018-02-13 Current user [facility] - [facility] 00:00:00 00:00:00 Medical Center Smoking Status Start Date Stop Date Source Current every day smoker 2018-02-13 00:00:00 [facility] Medications Ordered Filled Start Stop Current Ordering Indication Dosage Frequency Signature Comments Components Source Medication Medication Date Date Medication? Clinician (SIG) Name Name thyroid, 2017-05 Yes 120mg QD Take [address] [facility] [address] pork, 120 0-09 mg by [facility] - mg Tab 17:55: mouth Medical 10 daily. Center gemfibrozil 2017-05 Yes 600mg Take [address] (LOPID) 600 0-09 mg by [facility] - MG tablet 17:55: mouth 2 Medic al 10 (two) Center times daily before meals. insulin 2017-05 Yes 6U QD Inject [address] [facility] detemir 0-09 Units [facility] - U-100 17:55: subcutaneo Medica l (LEVEMIR) 10 usly Center 100 unit/mL nightly. injection insulin 2017-05 Yes 3U Inject [address] [facility] aspart 0-09 Units [facility] - U-100 17:55: subcutaneo Medica l (NOVOLOG) 10 usly 3 Center 100 unit/mL (three) InPn times daily before meals. acetaminoph 2017-05 Yes 1{tbl} Take [address] en-codeine 0-09 tablet by [facility] - (TYLENOL 17:55: mouth Medical #4) 300-60 10 every 6 Center mg per (six) tablet hours as needed for Pain. Immunizations Ordered Immunization Filled Immunization Date Status Commen ts Source Name Name Influenza Four-QIV 2018-02-13 Completed [facility] - Non-PF 5+ YR 00:00:00 Medical Cent er Procedures This patient has no known procedures. Plan of Care Planned Activity Planned Date Details Comments Source Future Scheduled 2021[facility]02[facility] [code = Medical Center 17006573] Future Scheduled 2020-01-07 INFLUENZA VACCINE (#1) [facility] - Test 00:00:00 [code = INFLUENZA Medical Ce nter VACCINE (#1)] Future Scheduled 2018-08-[address] [facility] [address] [facility] - Test 00:00:00 measurement Medical Center (procedure) [code = 08084323] Future Scheduled 1984-01-[address] DIABETIC EYE EXAM [facility] - Test 00:00:00 [code = DIABETIC EYE Medical Center EXAM] Future Scheduled 1984-01-[address] [facility] - Test 00:00:00 examination Medical Center (regime/therapy) [code = 045475929] Future Scheduled 1984-01-26 Urine screening for [facility] - Test 00:00:00 protein (procedure) Medical Center [code = 511399031] Future Scheduled 1980-01-[address] [facility] - Test 00:00:00 0-64 YRS (1 of 1 - Medical C enter PPSV23) [code = PNEUMOCOCCAL VACCINE 0-64 YRS (1 of 1 - PPSV23)] Results Test Description Test Time Test Comments Results Result Comments Source BLOOD CULTURE 2018-02-17 06:00:00 Test Item Value Reference Range Interpretation Comme nts CULTURE ([facility]) (test code = 1095) No growth in 5 days URINE [id number] 10:25:00 Test Item Value Reference Range Interpretation Comments CULTURE ([facility]) (test code = 1095) No growth POCT-GLUCOSE [id number] 17:10:00 Test Item Value Reference Range Interpretation Comments POC-GLUCOSE METER 232 mg/dL 70-[address] [facility] 6720 ([facility]) (test code = CESAR Servin [facility] 1538) [address] CT, CTANGIO [id number] 16:41:00CTV pleaseFINAL REPORT CTV brain 02/13/2018 4:35 [...] Verified Date/Time: 02/13/2018 16:41:24 Reading Location: [facility] Radiology Reading Room POCT-GLUCOSE [id number] 13:07:00 Test Item Value Reference Range Interpretation Comments POC-GLUCOSE METER 311 mg/dL 70-110 H Notified Gareth Coronado MD/TESTED ([facility]) (test code = AT [place] [address]) [place] [address] 0 IRON, TIBC, % SAT. (WITHOUT FERRITIN)2018-02-13 10:10:00 Test Item Value Reference Range Interpretation Comments IRON (BEAKER) (test code = 547) 49 ug/dL 40-160 TOTAL IRON BINDING CAPACITY 231 ug/dL 250-450 L (BEAKER) (test code = 769) IRON % SATURATION (2) (BEAKER) 21 % 20-55 (test code = 2590) POCT-GLUCOSE [id number] 08:50:00 Test Item Value Reference Range Interpretation Comments POC-GLUCOSE METER 348 mg/dL 70-110 H Notified Gareth Coronado MD/TESTED (BEAKER) (test code = AT [place] [address]) [place] [address] 0 BASIC METABOLIC [id number] 08:31:00 Test Item Value Reference Range Interpretation [...] NOT APPLICABLE FOR DIALYSIS PATIEN TS. LIPID [id number] 08:31:00 Test Item Value Reference Range Interpretation [...] 130-159 High 160-189 Very High >=190IMMATURE RETICULOCYTE [id number] 08:16:00 Test Item Value Reference Range Interpretation Comments IMMATURE RETIC FRACTION (BEAKER) 8.600 % 2.300-13.400 (test code = 1447) RETICULOCYTE COUNT PCT (BEAKER) (test 1.4 % 0.5-1.8 code = 575) CBC W/PLT COUNT & AUTO [id number] 08:16:00 Test Item Value Reference Range Interpretation [...] PERCENT (BEAKER) (test code = 2801) POCT-GLUCOSE [id number] 21:18:00 Test Item Value Reference Range Interpretation Comments POC-GLUCOSE METER 226 mg/dL 70-110 H TESTED AT [place] [address] ([facility]) (test code = C[place] Servin [place] [address]) [address] MR, BRAIN, WITHOUT [id number] 19:43:00FINAL REPORT MRI brain without contrast INDICATION: [...] thrombus cannot be excluded. The major proximal [place] flow voids are maintained. Mild [...] Gregory Verified Date/Time: 02/12/2018 19:43:32 Reading Location: [facility] Radiology Reading Room POCT-GLUCOSE [id number] 19:01:00 Test Item Value Reference Range Interpretation Comments POC-GLUCOSE METER 362 mg/dL 70-[address] [facility] 67[address] ([facility]) (test code = [place] Serv[place] [address]) [address] EEG AWAKE AND [id number] 17:46:00Reason for exam:->SeizureShould this be performed at the bedside?->[facility] EEG REPORTDATE OF TEST: [id number] OF REPORT: [id number]: [id number]: [id number] time: 14:04Stop time: 14:24ICD-10: R56.9CPT Code: 43380SQEKLZQ: 40 y old 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, [...] of this report.Queenie Loco MD, PhDClinical Neurophysiology/Epilepsy AttendingRacine County Child Advocate Center POCT- GLUCOSE [id number] 15:33:00 Test Item Value Reference Range Interpretation Comments POC-GLUCOSE METER 213 mg/dL 70-[address] [facility] 67[address] (BEAKER) (test code = [place] 15[address]) [address] TSH/FREE T4 IF [id number] 09:35:00 Test Item Value Reference Range Interpretation Comments THYROID STIMULATING HORMONE 4.03 uIU/mL 0.35-4.94 (BEAKER) (test code = 772) HEMOGLOBIN [id number] 08:47:00 Test Item Value Reference Range Interpretation Comments HEMOGLOBIN A1C (BEAKER) (test code = 6.5 % 4.3-6.1 H 368) POCT-GLUCOSE [id number] 07:55:00 Test Item Value Reference Range Interpretation Comments POC-GLUCOSE METER 219 mg/dL 70-110 H TESTED AT [place] [address] ([facility]) (test code = CESAR Servin [facility] 1538) [address] [id number] 05:00:00 Test Item Value Reference Range Interpretation Comments MAGNESIUM (BEAKER) (test code = 2.1 mg/dL 1.6-2.6 627) BASIC METABOLIC [id number] 05:00:00 Test Item Value Reference Range Interpretation [...] PATIEN TS. CBC W/PLT COUNT & AUTO [id number] 04:40:00 Test Item Value Reference Range Interpretation [...] % 0-1 PERCENT (BEAKER) (test code = 7511) POCT-GLUCOSE [id number] 04:31:00 Test Item Value Reference Range Interpretation Comments POC-GLUCOSE METER 183 mg/dL 70-110 H TESTED AT [place] [address] ([facility]) (test code = CESAR Servin [facility] 1538) [address] RAD, ABDOMEN/KUB, 1 VIEW [id number] 01:33:00Reason for exam:->Abdominal distension, obtundationFINAL REPORT CLINICAL [...] calcification in the pelvis. Signed: [facility]fredo [facility] Verified Date/Time: 02/12/2018 01:33:19 Reading Location: [address] Transitional Reading Room -GLUCOSE [id number] 00:49:00 Test Item Value Reference Range Interpretation Comments POC-GLUCOSE METER 346 mg/dL 70-110 H TESTED AT [place] [address] ([facility]) (test code = CESAR Servin [facility] 1538) [address] CBC W/PLT COUNT & AUTO [id number] 00:44:00 Test Item Value Reference Range Interpretation Comments WHITE BLOOD CELL COUNT (AKER) 14.3 K/ L 3.5-10.5 H (test code = 775) RED BLOOD CELL COUNT (AKER) 4.26 M/ L 4.63-6.08 L (test code = 761) HEMOGLOBIN (BEAKER) (test code = 13.8 GM/DL 13.7-17.5 410) HEMATOCRIT ([facility]) (test code = 42.1 % 40.1-51.0 411) MEAN CORPUSCULAR VOLUME (AKER) 98.8 fL 79.0-92.2 H (test code = [...] (test code = 2801) RAPID DRUG SCREEN, [id number] 00:35:00 Test Item Value Reference Range Interpretation [...] situations. Chain of custody not maintained. Some usmt-csl-rnbvwde medications, as well as adulterants, may cause inaccurate results. Clinical correlation should be applied. A more comprehensive drug screen or confirmation of a detected drug may be performed upon request. TROPONIN [id number] 00:15:00 Test Item Value Reference Range Interpretation [...] acute neurological disease, and persistent tachyarrhythmia.COMPREHENSIVE METABOLIC [id number] 00:09:00 Test Item Value Reference Range Interpretation [...] APPLICABLE FOR DIALYSIS PATIEN TS. URINALYSIS W/ [id number] 00:06:00 Test Item Value Reference Range Interpretation [...] = Rare 1574) SOURCE(BEAKER) (test code = 7911) RAD, CHEST, 1 VIEW, NON [id number] 23:11:00Reason for exam:->Obtundation with coarse respirations, baselineShould this be performed at the [facility]?->YesFINAL REPORT RAD, CHEST, 1 VIEW, NON DEPT INDICATION: Obtundation with coarserespirations, baseline COMPARISON: None. FINDINGS: Portable frontal view of the chest. IMPRESSION: Support Lines: None. Lungs and pleura: Clear lungs. No pneumothorax.Heart and mediastinum: Unremarka ble. Additional findings: Fluid and gaseous distention of the gastric lumen. Signed: JR Lozano [facility] Verified Date/Time: 02/11/2018 23:11:04 Reading Location: [address]
[2020-03-30] MEDS ORDERED: NA CHLORIDE 0.9% 1,000 ML ONE (02:29)
[2020-03-30] MEDS ORDERED: MORPHINE 2 MG/ML SYR ONE ×2 (02:29→03:49)
[2020-03-30 02:53] LABS: Absolute Lymphocytes (CBC) 3.3 K/uL (0.7-4.9); Basophils % 1.1 % (0-1.3); Lymphocytes % 43.1 % (15.3-44.8); MPV 8.7 fL (7.6-11.3); RBC Red Blood Cell Count 4.62 M/uL (4.33-5.43)
[2020-03-30 02:58] LABS: Albumin 3.8 g/dL (3.4-5.0); Bilirubin Direct 0.1 mg/dL (0-0.2); Bilirubin Total 0.6 mg/dL (0.2-1.0); Potassium 3.2 mmol/L (3.5-5.1); Protein, Total 7.7 g/dL (6.4-8.2)
[2020-03-30 03:21] LABS: Barbiturates NEGATIVE (NEGATIVE); Benzodiazepines NEGATIVE (NEGATIVE); Cocaine NEGATIVE (NEGATIVE); METHAMPHETAM NEGATIVE (NEGATIVE); Methadone NEGATIVE (NEGATIVE); Opiates NEGATIVE (NEGATIVE); Phencyclidine NEGATIVE (NEGATIVE); THC Cannibis NEGATIVE (NEGATIVE)
[2020-03-30 03:31] LABS: Magnesium 1.6 mg/dL (1.8-2.4)
[2020-03-30] MEDS ORDERED: POTASSIUM 25 MEQ EFFERV TAB ONE (03:43)
[2020-03-30 04:09] LABS: Urine Blood TRACE (NEG); Urine Glucose 2+ (NEG); Urine Protein 2+ (NEG); Urine pH 6.5 (5.0-7.0)
--- NOTE | 2020-03-30 04:33 | ER ---
Nurse's Notes [facility] Name: Surjit Stubbs Age: 45 yrs Sex: Male : 1975 Arrival Date: 03/30/2020 Time: 01:18 Bed 14 Private MD: Diagnosis: Right Foot Metatarsal Fractures-Chronic;Diabetes with Hyperglycemia;Alcohol Intoxication Presentation: 03/30 01:30 Chief complaint: EMS states: complaining of right foot pain started last January 10 rr5 now it gets worst. patient denies any trauma. Coronavirus screen: Client denies travel out of the [place] in the last 14 days. At this time, the client does not indicate any symptoms associated with coronavirus-19. Ebola Screen: Patient negative for fever greater than or equal to 101.5 degrees Fahrenheit, and additional compatible Ebola Virus Disease symptoms Patient denies exposure to infectious person. Patient denies travel to an Ebola-affected area in the 21 days before illness onset. Initial Sepsis Screen: Does the patient meet any 2 criteria? No. Patient's initial sepsis screen is negative. Does the patient have a suspected source of infection? No. Patient's initial sepsis screen is negative. Risk Assessment: Do you want to hurt yourself or someone else? Patient reports no desire to harm self or others. Onset of symptoms was March 30, 2020. Care prior to arrival: Glucose check: 334. 01:30 Method Of Arrival: EMS: [facility] rr5 01:30 Acuity: TOI 3 rr5 Historical: - Allergies: 01:34 tramadol; rr5 - Home Meds: 01:34 acetaminophen-codeine 300-60 mg Oral tab [Active]; gabapentin 100 mg Oral cap [Active]; rr5 Worden Thyroid 60 mg Oral tab [Active]; Glucagon Emergency Kit (human) 1 mg IM kit 1 mL [Active]; gemfibrozil 600 mg Oral tab 1 tab 2 times per day [Active]; Levemir subcutaneous [Active]; Novolog Sub-Q [Active]; levetiracetam 500 mg Oral tab 1 tab 2 times per day [Active]; - PMHx: 01:34 Diabetes - IDDM; High Cholesterol; Hypothyroidism; neuropathy; Seizures; rr5 - PSHx: 01:34 None; rr5 - Immunization history:: Adult Immunizations up to date. - Social history:: Smoking status: Patient reports the use of cigarette tobacco products, smokes one-half pack cigarettes per day, Patient uses alcohol, occasionally. Patient/guardian denies using street drugs. Screenin:35 Abuse screen: Denies threats or abuse. Denies injuries from another. Nutritional rr5 screening: No deficits noted. Tuberculosis screening: No symptoms or risk factors identified. Fall Risk Ambulatory Aid- Crutches/Cane/Walker (15 pts). Total Beck Fall Scale indicates No Risk (0-24 pts). Assessment: 01:30 General: Appears in no apparent distress. comfortable, Behavior is calm, cooperative, rr5 appropriate for age, Reports had alcohol intake. 01:30 Pain: Complains of pain in right foot Pain currently is 10 out of 10 on a pain scale. rr5 Quality of pain is described as aching, Pain began gradually, Is intermittent. Neuro: Level of Consciousness is awake, alert, obeys commands, Oriented to person, place, time, situation. Cardiovascular: Capillary refill < 3 seconds Patient's skin is warm and dry. Respiratory: Airway is patent Respiratory effort is even, unlabored, Respiratory pattern is regular, symmetrical. GI: No signs and/or symptoms were reported involving the gastrointestinal system. : No signs and/or symptoms were reported regarding the genitourinary system. EENT: No signs and/or symptoms were reported regarding the EENT system. Derm: Skin is intact, is healthy with good turgor, Skin temperature is warm. Musculoskeletal: Circulation, motion, and sensation intact. Capillary refill < 3 seconds, Reports pain in right foot. 02:40 Reassessment: patient refused to be on monitoring engineer, BP and o2 sat. patient removed rr5 the BP cuff and O2 sat. 03:27 Reassessment: Patient appears in no apparent distress at this time. Patient and/or jb4 family updated on plan of care and expected duration. Pain level reassessed. Patient is alert, oriented x 3, equal unlabored respirations, skin warm/dry/pink. PT reports pain has returned to 10/10, provider notified, second dose of morphine prepared. 03:44 Reassessment: Patient appears in no apparent distress at this time. Patient and/or jb4 family updated on plan of care and expected duration. Pain level reassessed. Patient is alert, oriented x 3, equal unlabored respirations, skin warm/dry/pink. 05:23 Reassessment: Patient appears in no apparent distress at this time. Patient and/or jb4 family updated on plan of care and expected duration. Pain level reassessed. Patient is alert, oriented x 3, equal unlabored respirations, skin warm/dry/pink. Vital Signs: 01:30 BP 123 / 93; Pulse 92; Resp 17; Temp 98.1; Pulse Ox 100% ; Weight 63.5 kg; Height 5 ft. rr5 9 in. (175.26 cm); Pain 10/10; 02:30 BP 125 / 62; Pulse 90; Resp 16; Pulse Ox 99% ; Pain 10/10; rr5 03:37 BP 144 / 98; Pulse 99; Resp 16; Pulse Ox 100% on R/A; jb4 01:30 Body Mass Index 20.67 (63.50 kg, 175.26 cm) rr5 ED Course: 01:18 Patient arrived in ED. dm5 01:23 Thony Shine MD is Attending Physician. mh7 01:28 Jordi Benton, MELANIE is Primary Nurse. rr5 01:33 Triage completed. rr5 01:35 Arm band placed on right wrist. rr5 01:35 Patient has correct armband on for positive identification. Bed in low position. Call rr5 light in reach. 02:11 Inserted saline lock: 20 gauge in right forearm, using aseptic technique. Blood rr5 collected. 02:36 EKG done, by ED staff, reviewed by Thony Shine MD. rr5 03:33 Foot Right 3 View XRAY In Process Unspecified. EDMS 04:31 Jose Jackson MD is Referral Physician. mh7 04:31 Jt Suarez DPM is Referral Physician. 7 05:23 No provider procedures requiring assistance completed. IV discontinued, intact, jb4 bleeding controlled, No redness/swelling at site. Pressure dressing applied. Administered Medications: 02:35 Drug: morphine 2 mg {Note: rass 0.} Route: IVP; Site: right forearm; rr5 02:36 Drug: NS 0.9% 1000 ml Route: IV; Rate: 1000 ml; Site: right forearm; rr5 03:43 Drug: Potassium Effervescent Tablet 50 mEq Route: PO; jb4 04:20 Follow up: Response: No adverse reaction jb4 03:44 Drug: morphine 2 mg Route: IVP; Site: right antecubital; jb4 04:20 Follow up: Response: No adverse reaction; Pain is decreased; RASS: Alert and Calm (0) jb4 Outcome: 04:33 Discharge ordered by . alejandra 05:23 Discharged to home via wheelchair, with friend. jb4 05:23 Condition: stable 05:23 Discharge instructions given to patient, Instructed on discharge instructions, follow up and referral plans. medication usage, Demonstrated understanding of instructions, follow-up care, medications, Prescriptions given X 1. 05:24 Patient left the ED. jb4 Signatures: Dispatcher [employer] EDMS Narcisa Donis RN RN dm5 Surjit Howell RN RN jb4 Jordi Benton RN RN rr5 Thony Shine MD MD 7 Corrections: (The following items were deleted from the chart) 03:44 03:27 Reassessment: Patient appears in no apparent distress at this time. Patient jb4 and/or family updated on plan of care and expected duration. Pain level reassessed. Patient is alert, oriented x 3, equal unlabored respirations, skin warm/dry/pink. PT reports pain has returned to 10/10, provider notified, no new orders at this time. jb4
--- NOTE | 2020-03-30 04:33 | EDPHYS ---
Physician Documentation [facility] Name: Surjit Stubbs Age: 45 yrs Sex: Male : 1975 Arrival Date: 03/30/2020 Time: 01:18 Bed 14 Private MD: ED Physician Thony Shine HPI: 03/30 03:00 This 45 yrs old Male presents to ER via EMS with complaints of Wound mh7 Infection. 03:00 The patient presents with pain, that is chronic. The complaints affect the right foot. mh7 Context: The problem was sustained at an unknown location, resulted from an unknown cause, Mechanism of Injury: Unknown the patient can fully bear weight, the patient is able to ambulate, with mild difficulty. Onset: The symptoms/episode began/occurred 2 month(s) ago. Modifying factors: The symptoms are alleviated by nothing, the symptoms are aggravated by weight bearing, movement. Associated signs and symptoms: Pertinent negatives: calf tenderness, fever, nausea, numbness, rash, swelling, tingling, vomiting, warmth, weakness. Severity of symptoms: At their worst the symptoms were moderate, 2 day(s) ago, in the emergency department the symptoms are unchanged. The patient has experienced similar episodes in the past, multiple times. Historical: - Allergies: 01:34 tramadol; rr5 - Home Meds: 01:34 acetaminophen-codeine 300-60 mg Oral tab [Active]; gabapentin 100 mg Oral cap [Active]; rr5 [place] Thyroid 60 mg Oral tab [Active]; Glucagon Emergency Kit (human) 1 mg IM kit 1 mL [Active]; gemfibrozil 600 mg Oral tab 1 tab 2 times per day [Active]; Levemir subcutaneous [Active]; Novolog Sub-Q [Active]; levetiracetam 500 mg Oral tab 1 tab 2 times per day [Active]; - PMHx: 01:34 Diabetes - IDDM; High Cholesterol; Hypothyroidism; neuropathy; Seizures; rr5 - PSHx: 01:34 None; rr5 - Immunization history:: Adult Immunizations up to date. - Social history:: Smoking status: Patient reports the use of cigarette tobacco products, smokes one-half pack cigarettes per day, Patient uses alcohol, occasionally. Patient/guardian denies using street drugs. ROS: 03:00 Constitutional: Negative for fever, chills, and weight loss, Eyes: Negative for injury, mh7 pain, redness, and discharge, ENT: Negative for injury, pain, and discharge, Neck: Negative for injury, pain, and swelling, Cardiovascular: Negative for chest pain, palpitations, and edema, Respiratory: Negative for shortness of breath, cough, wheezing, and pleuritic chest pain, Abdomen/GI: Negative for abdominal pain, nausea, vomiting, diarrhea, and constipation, Back: Negative for injury and pain, : Negative for injury, bleeding, discharge, and swelling, Skin: Negative for injury, rash, and discoloration, Neuro: Negative for headache, weakness, numbness, tingling, and seizure, Psych: Negative for depression, anxiety, suicide ideation, homicidal ideation, and hallucinations, Allergy/Immunology: Negative for hives, rash, and allergies, Endocrine: Negative for neck swelling, polydipsia, polyuria, polyphagia, and marked weight changes, Hematologic/Lymphatic: Negative for swollen nodes, abnormal bleeding, and unusual bruising. Exam: 03:00 Head/Face: Normocephalic, atraumatic. Eyes: Pupils equal round and reactive to light, mh7 extra-ocular motions intact. Lids and lashes normal. Conjunctiva and sclera are non-icteric and not injected. Cornea within normal limits. Periorbital areas with no swelling, redness, or edema. Neck: Trachea midline, no thyromegaly or masses palpated, and no cervical lymphadenopathy. Supple, full range of motion without nuchal rigidity, or vertebral point tenderness. No Meningismus. Chest/axilla: Normal chest wall appearance and motion. Nontender with no deformity. No lesions are appreciated. Cardiovascular: Regular rate and rhythm with a normal S1 and S2. No gallops, murmurs, or rubs. Normal PMI, no JVD. No pulse deficits. Respiratory: Lungs have equal breath sounds bilaterally, clear to auscultation and percussion. No rales, rhonchi or wheezes noted. No increased work of breathing, no retractions or nasal flaring. Abdomen/GI: Soft, non-tender, with normal bowel sounds. No distension or tympany. No guarding or rebound. No evidence of tenderness throughout. Back: No spinal tenderness. No costovertebral tenderness. Full range of motion. Skin: Warm, dry with normal turgor. Normal color with no rashes, no lesions, and no evidence of cellulitis. 03:00 Neuro: Awake and alert, GCS 15, oriented to person, place, time, and situation. Cranial nerves II-XII grossly intact. Motor strength 5/5 in all extremities. Sensory grossly intact. Cerebellar exam normal. Normal gait. Psych: Awake, alert, with orientation to person, place and time. Behavior, mood, and affect are within normal limits. 03:00 Constitutional: The patient appears in no acute distress, alert, awake, uncomfortable. 03:00 Musculoskeletal/extremity: Extremities: noted in the dorsal and palmar Right foot: pain, tenderness, ROM: intact in all extremities, Circulation is intact in all extremities. Pulses: are normal with no appreciated deficits, Perfusion: the patient is normally perfused throughout, Perfusion: the extremity is normally perfused throughout, Calf tenderness, is absent, Edema, is not appreciated, Sensation intact. Compartment Syndrome exam of affected extremity: is normal. no numbness, no tingling, no sensation deficit, no palor, no weak pulses, Joints: All joints appear normal with full range of motion. Calves: are non-tender, have equal circumference. Vital Signs: 01:30 BP 123 / 93; Pulse 92; Resp 17; Temp 98.1; Pulse Ox 100% ; Weight 63.5 kg; Height 5 ft. rr5 9 in. (175.26 cm); Pain 10/10; 02:30 BP 125 / 62; Pulse 90; Resp 16; Pulse Ox 99% ; Pain 10/10; rr5 03:37 BP 144 / 98; Pulse 99; Resp 16; Pulse Ox 100% on R/A; jb4 01:30 Body Mass Index 20.67 (63.50 kg, 175.26 cm) rr5 MDM: 04:29 Differential diagnosis: fracture, sprain, arthritis, gout, Plantar Fasciitis. Data [facility] reviewed: vital signs, nurses notes, EMS record, old medical records, lab test result(s), CBC, drug level(s), alcohol, electrolytes, urinalysis, urine drug screen, EKG, radiologic studies, plain films. Data interpreted: Pulse oximetry: on room air is 100 %. Interpretation: normal. Counseling: I had a detailed discussion with the patient and/or guardian regarding: the historical points, exam findings, and any diagnostic results supporting the discharge/admit diagnosis, the presence of at least one elevated blood pressure reading (>120/80) during this emergency department visit, lab results, radiology results, the need for outpatient follow up, to return to the emergency department if symptoms worsen or persist or if there are any questions or concerns that arise at home. Response to treatment: the patient's symptoms have markedly improved after treatment. 04:33 Patient medically screened. [facility] 03/30 02:02 Order name: CBC with Diff; Complete Time: 03:21 [facility] 03/30 02:02 Order name: Basic Metabolic Panel; Complete Time: 04:00 [facility] 03/30 02:02 Order name: LFT's; Complete Time: 04:00 [facility] 03/30 02:02 Order name: UDS; Complete Time: 03:21 [facility] 03/30 02:36 Order name: ETOH Level; Complete Time: 04:00 rr5 03/30 02:40 Order name: Urine Dipstick--Ancillary (enter results); Complete Time: 04:14 [facility] 03/30 02:02 Order name: Urine Dipstick-Ancillary (obtain specimen); Complete Time: 02:36 7 03/30 02:03 Order name: Foot Right 3 View XRAY [facility] 03/30 02:42 Order name: Glucose, Ancillary Testing; Complete Time: 03:21 EDMS 03/30 03:25 Order name: Magnesium; Complete Time: 04:00 EDMS 03/30 02:02 Order name: EKG - Nurse/Tech; Complete Time: 02:36 7 03/30 04:34 Order name: Walking boot; Complete Time: 04:50 mh7 Administered Medications: 02:35 Drug: morphine 2 mg {Note: rass 0.} Route: IVP; Site: right forearm; rr5 02:36 Drug: NS 0.9% 1000 ml Route: IV; Rate: 1000 ml; Site: right forearm; rr5 03:43 Drug: Potassium Effervescent Tablet 50 mEq Route: PO; jb4 04:20 Follow up: Response: No adverse reaction jb4 03:44 Drug: morphine 2 mg Route: IVP; Site: right antecubital; jb4 04:20 Follow up: Response: No adverse reaction; Pain is decreased; RASS: Alert and Calm (0) jb4 Disposition: 03/30/20 04:33 Discharged to Home. Impression: Right Foot Metatarsal Fractures-Chronic, Diabetes with Hyperglycemia, Alcohol Intoxication. - Condition is Stable. - Discharge Instructions: Metatarsal Fracture, Alcohol Intoxication, Ypam-en-Uvns, Hyperglycemia, Kpcg-xj-Lquu. - Prescriptions for ketorolac 10 mg Oral tablet - take 1 tablet by ORAL route every 8 hours As needed not to exceed 40 mg in 24hrs; 15 tablet. - Medication Reconciliation Form, Thank You Letter, Antibiotic Education, Prescription Opioid Use form. - Follow up: Private Physician; When: 1 - 2 days; Reason: Worsening of condition, Recheck today's complaints, Continuance of care, Re-evaluation by your physician. Follow up: Jose Jackson MD; When: 5 - 6 days; Reason: Worsening of condition, Recheck today's complaints. Follow up: Jt Suarez DPM; When: 5 - 6 days; Reason: Worsening of condition, Recheck today's complaints. - Problem is chronic. - Symptoms have improved. Signatures: Dispatcher [employer] [facility] Surjit Howell RN RN jb4 Jordi Benton RN RN rr5 Thony Shine MD MD mh7 Corrections: (The following items were deleted from the chart) 03:25 03:24 MAGNESIUM+C.LAB.BRZ ordered. [facility] EDWV 05:24 04:33 03/30/2020 04:33 Discharged to Home. Impression: Right Foot Metatarsal jb4 Fractures-Chronic; Diabetes with Hyperglycemia; Alcohol Intoxication. Condition is Stable. Forms are Medication Reconciliation Form, Thank You Letter, Antibiotic Education, Prescription Opioid Use. Follow up: Private Physician; When: 1 - 2 days; Reason: Worsening of condition, Recheck today's complaints, Continuance of care, Re-evaluation by your physician. Follow up: Jose Jackson; When: 5 - 6 days; Reason: Worsening of condition, Recheck today's complaints. Follow up: Jt Suarez; When: 5 - 6 days; Reason: Worsening of condition, Recheck today's complaints. Problem is chronic. Symptoms have improved. mh7
[2020-03-30 10:53] VITALS: TEMP 98.1
[2020-03-30 10:56] VITALS: BP 144/98; O2SAT 100
--- NOTE | 2020-03-30 11:47 | RAD REPORT ---
EXAM DESCRIPTION: XR Right Foot Complete, 3 or More Views CLINICAL HISTORY: The patient is 45 years old and is Male; PAIN TECHNIQUE: Frontal, lateral and oblique views of the right foot. COMPARISON: No relevant prior studies available. FINDINGS: BONES/JOINTS: The bones are diffusely mottled and osteopenic. Evidence of subacute/heali ng fractures of the second and third metatarsals. The second metatarsal is fractured in 2 locations a nd is angulated mid diaphysis. Questionable nondisplaced fracture at the head of the fourth metatarsa l is noted. No other fracture is seen. No dislocation. SOFT TISSUES: Unremarkable. No radiopaque foreign body. IMPRESSION: 1. Healing fractures of the second and third metatarsals with questionable nondisplace d fracture involving the head of the fourth metatarsal. 2. Diffusely demineralization of the bones. Electronically signed by: Paula Stafford MD 03/30/2020 4:01 AM VIRTUALIZATION ENGINEER Due to temporary technical issues with the PACS/Fluency reporting system, reports are being signed by the in house radiologist without review as a courtesy to ensure prompt reporting. The interpreting r adiologist is fully responsible for the content of the report.
== END 2020-03-30 05:24 | disposition home or self-care (01) ==
LOC: ER 01:16
DX: M84.474A Pathological fracture, right foot, initial encounter for fracture (principal); E11.65 Type 2 diabetes mellitus with hyperglycemia; F10.129 Alcohol abuse with intoxication, unspecified; F17.210 Nicotine dependence, cigarettes, uncomplicated; E03.9 Hypothyroidism, unspecified; E78.00 Pure hypercholesterolemia, unspecified; Z79.4 Long term (current) use of insulin; Z88.5 Allergy status to narcotic agent
CPT/HCPCS: 36415; 80048; 80076; 80307; 80320; 81003; 82947; 83735; 85025; 93005; 99284; J2270; J7030

== ENCOUNTER 2020-04-29 12:24 | Emergency (ER) | payer SELFPAY ==
--- OUTSIDE RECORDS SUMMARY | 2020-04-29 12:25 | XMS REPORT | Clinical Summary ---
:1975 Author [facility] Address [address] [place] [address] Care Team Providers Name Role Phone Unavailable [...] PANEL 02/13/2021 02/13/2018 Results Not on fileafter 04/29/2019 Advance Directives For more information, please contact: [phone] Code Status Date Activated Date Inactivated Comments Full Code 02/11/2018 10:27 PM 02/13/2018 7:55 PM This code status was determined by: Patient
--- OUTSIDE RECORDS SUMMARY | 2020-04-29 12:26 | XMS REPORT | Continuity of Care Document ---
:1975 Author Organization [facility] t Address [address] [place] [address] [address] [place] [address] Care Team Providers Name Role Phone LEONID [...] seizure [facility]08 [facility] 00 [place] Acute Acute Disease Active 2017-[address] [facility] encephalop encephalop 0-08 [facility] - athy athy 00:00: Medical 00 [place] Hyperglyce Hyperglyce Disease Active 2017-[address] yvan yvan 0-08 [facility] 00 [place] Diabetes Diabetes Disease Active 2017[facility] 00 [place] Hyperchole Hyperchole Disease Active 2017-[address] steremia steremia 0-08 [facility] 00 [place] Thyroid Thyroid Disease Active 2017-[address] [facility] disease disease 0-08 [facility]: [facility] 00 [place] Leukocytos Leukocytos Disease Active 2017-[address] is is 0-08 [facility]: [facility] 00 [place] Anemia Anemia Disease Active 2017-[address] [facility] 0-08 [facility] 00:[facility]: [facility] 00 [place] Convulsive Convulsive Disease Active 2017-[address] seizure seizure 0-07 [facility] - disorder disorder 00:00: Medica l with with 00 Center status status epilepticu epilepticu s s Allergies, Adverse Reactions, Alerts This patient has no known allergies or adverse reactions. Social History Social Habit Start Date Stop Date Quantity Comments Source Sex Assigned At [facility] Tobacco use and 2018-02-13 2018-02-13 Current user [facility]:00 [facility]:00 [facility] Smoking Status Start Date Stop Date Source Current every day smoker 2018-02-13 00:00:00 [facility] Medications Ordered Filled Start Stop Current Ordering [...] Source Name Name Influenza Four-QIV 2018-02-13 Completed [facility] - Non-PF 5+ YR 00:00:00 Medical Cent er Procedures This patient has no known procedures. Plan of Care Planned Activity Planned Date Details Comments Source Future Scheduled 2021-02-13 [facility] (procedure[facility] [code = Medical Center 63394147] Future Scheduled 2020-01-07 INFLUENZA VACCINE (#1) [facility] Test 00:[facility]00 [code = INFLUENZA Medical Ce nter VACCINE (#1)] Future Scheduled 2018-08-[address] [facility] - Test 00:00:00 measurement [facility] Center (procedure) [code = 77590198] Future Scheduled 1984-01-[address] DIABETIC EYE EXAM [facility] - Test 00:00:00 [code = DIABETIC EYE Medical Center EXAM] Future Scheduled 1984-01-[address] [facility] - Test 00:00:00 examination Medical Center (regime/therapy) [code = 271013166] Future Scheduled 1984-01-26 Urine screening for [facility] - Test 00:00:00 protein (procedure) Medical Center [code = 213630599] Future Scheduled 1980-01-[address] [facility] - Test 00:00:00 0-64 YRS (1 of 1 - Medical C enter PPSV23) [code = PNEUMOCOCCAL VACCINE 0-64 YRS (1 of 1 - PPSV23)] Results Test Description Test Time Test Comments Results Result Comments Source BLOOD CULTURE 2018-02-17 06:00:00 Test Item Value Reference Range Interpretation Comme nts CULTURE ([facility]) (test code = 1095) No growth in 5 days URINE [id number] 10:25:00 Test Item Value Reference Range Interpretation Comments CULTURE ([facility]) (test code = 1095) No growth POCT-GLUCOSE [id number] 17:10:00 Test Item Value Reference Range Interpretation Comments POC-GLUCOSE METER 232 mg/dL 70-110 H TESTED AT [facility] 6720 ([facility]) (test code = CESAR Servin [facility] 1538) [address] CT, CTANGIO [id number] 16:41:00CTV pleaseFINAL REPORT CTV brain 02/13/2018 4:35 [...] Sky Verified Date/Time: 02/13/2018 16:41:24 Reading Location: [facility] Radiology Reading Room POCT-GLUCOSE [id number] 13:07:00 Test Item Value Reference Range Interpretation Comments POC-GLUCOSE METER 311 mg/dL 70-110 H Notified Gareth Coronado MD/TESTED ([facility]) (test code = AT [place] [address]) [place] [address] 0 IRON, TIBC, % SAT. (WITHOUT FERRITIN)2018-02-13 10:10:00 Test Item Value Reference Range Interpretation Comments IRON (BEAKER) (test code = 547) 49 ug/dL 40-160 TOTAL IRON BINDING CAPACITY 231 ug/dL 250-450 L (BEAKER) (test code = 769) IRON % SATURATION (2) (BEAKER) 21 % 20-55 (test code = 2590) POCT-GLUCOSE [id number] 08:50:00 Test Item Value Reference Range Interpretation Comments POC-GLUCOSE METER 348 mg/dL 70-110 H Notified Gareth Coronado MD/TESTED (BEAKER) (test code = AT [place] [address]) [place] [address] 0 BASIC METABOLIC [id number] 08:31:00 Test Item Value Reference Range Interpretation [...] NOT APPLICABLE FOR DIALYSIS PATIEN TS. LIPID [id number] 08:31:00 Test Item Value Reference Range Interpretation [...] 130-159 High 160-189 Very High >=190IMMATURE RETICULOCYTE [id number] 08:16:00 Test Item Value Reference Range Interpretation Comments IMMATURE RETIC FRACTION (BEAKER) 8.600 % 2.300-13.400 (test code = 1447) RETICULOCYTE COUNT PCT (BEAKER) (test 1.4 % 0.5-1.8 code = 575) CBC W/PLT COUNT & AUTO [id number] 08:16:00 Test Item Value Reference Range Interpretation [...] PERCENT (BEAKER) (test code = 2801) POCT-GLUCOSE [id number] 21:18:00 Test Item Value Reference Range Interpretation Comments POC-GLUCOSE METER 226 mg/dL 70-110 H TESTED AT [place] [address] ([facility]) (test code = CESAR Servin [place] [address]) [address] MR, BRAIN, WITHOUT [id number] 19:43:00FINAL REPORT MRI brain without contrast INDICATION: [...] thrombus cannot be excluded. The major proximal yurok of Mendoza flow voids are maintained. Mild [...] Gregory Verified Date/Time: 02/12/2018 19:43:32 Reading Location: [facility] Radiology Reading Room POCT-GLUCOSE [id number] 19:01:00 Test Item Value Reference Range Interpretation Comments POC-GLUCOSE METER 362 mg/dL 70-110 H TESTED AT [facility] [address] ([facility]) (test code = CES[place] Servin [place] 05[address]) [address] EEG AWAKE AND [id number] 17:46:00Reason for exam:->SeizureShould this be performed at the bedside?->[facility] REPORTDATE OF TEST: [id number] OF REPORT: [id number]: [id number]: [id number] time: 14:04Stop time: 14:24ICD-10: R56.9CPT Code: 46698VJMJFAW: 40 y old 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, [...] of this report.Queenie Loco MD, PhDClinical Neurophysiology/Epilepsy AttendingHospital Sisters Health [facility] POCT- GLUCOSE [id number] 15:33:00 Test Item Value Reference Range Interpretation Comments POC-GLUCOSE METER 213 mg/dL 70-110 H TESTED AT [facility] 67[address] (BEAKER) (test code = [place] 15[address]) [address] TSH/FREE T4 IF [id number] 09:35:00 Test Item Value Reference Range Interpretation Comments THYROID STIMULATING HORMONE 4.03 uIU/mL 0.35-4.94 (BEAKER) (test code = 772) HEMOGLOBIN [id number] 08:47:00 Test Item Value Reference Range Interpretation Comments HEMOGLOBIN A1C (BEAKER) (test code = 6.5 % 4.3-6.1 H 368) POCT-GLUCOSE [id number] 07:55:00 Test Item Value Reference Range Interpretation Comments POC-GLUCOSE METER 219 mg/dL 70-110 H TESTED AT [place] [address] ([facility]) (test code = CESAR Servin [facility] 1538) [address] [id number] 05:00:00 Test Item Value Reference Range Interpretation Comments MAGNESIUM (BEAKER) (test code = 2.1 mg/dL 1.6-2.6 627) BASIC METABOLIC [id number] 05:00:00 Test Item Value Reference Range Interpretation [...] PATIEN TS. CBC W/PLT COUNT & AUTO [id number] 04:40:00 Test Item Value Reference Range Interpretation [...] % 0-1 PERCENT (BEAKER) (test code = 3611) POCT-GLUCOSE [id number] 04:31:00 Test Item Value Reference Range Interpretation Comments POC-GLUCOSE METER 183 mg/dL 70-110 H TESTED AT [place] [address] ([facility]) (test code = CESAR Servin [facility] 1538) [address] RAD, ABDOMEN/KUB, 1 VIEW [id number] 01:33:00Reason for exam:->Abdominal distension, obtundationFINAL REPORT CLINICAL [...] calcification in the pelvis. Signed: [facility] Verified Date/Time: 02/12/2018 01:33:19 Reading Location: [address] Transitional Reading Room -GLUCOSE [id number] 00:49:00 Test Item Value Reference Range Interpretation Comments POC-GLUCOSE METER 346 mg/dL 70-110 H TESTED AT [place] [address] ([facility]) (test code = CESAR Servin [facility] 1538) [address] CBC W/PLT COUNT & AUTO [id number] 00:44:00 Test Item Value Reference Range Interpretation Comments WHITE BLOOD CELL COUNT (AKER) 14.3 K/ L 3.5-10.5 H (test code = 775) RED BLOOD CELL COUNT (AKER) 4.26 M/ L 4.63-6.08 L (test code = 761) HEMOGLOBIN (BEAKER) (test code = 13.8 GM/DL 13.7-17.5 410) HEMATOCRIT ([facility]) (test code = 42.1 % 40.1-51.0 411) [...] (test code = 2801) RAPID DRUG SCREEN, [id number] 00:35:00 Test Item Value Reference Range Interpretation [...] situations. Chain of custody not maintained. Some jkvd-zmj-xczbrzq medications, as well as adulterants, may cause inaccurate results. Clinical correlation should be applied. A more comprehensive drug screen or confirmation of a detected drug may be performed upon request. TROPONIN [id number] 00:15:00 Test Item Value Reference Range Interpretation [...] acute neurological disease, and persistent tachyarrhythmia.COMPREHENSIVE METABOLIC [id number] 00:09:00 Test Item Value Reference Range Interpretation [...] APPLICABLE FOR DIALYSIS PATIEN TS. URINALYSIS W/ [id number] 00:06:00 Test Item Value Reference Range Interpretation [...] = Rare 1574) SOURCE(BEAKER) (test code = 0102) RAD, CHEST, 1 VIEW, NON [id number] 23:11:00Reason for exam:->Obtundation with coarse respirations, baselineShould [facility] be [facility]?->YesFINAL REPORT RAD, CHEST, 1 VIEW, NON DEPT INDICATION: Obtundation with coarserespirations, baseline COMPARISON: None. FINDINGS: Portable frontal view of the chest. IMPRESSION: Support Lines: None. Lungs and pleura: Clear lungs. No pneumothorax.Heart and mediastinum: Unremarka ble. Additional findings: Fluid and gaseous distention of the gastric lumen. Signed: JR Lozano [facility] Verified Date/Time: 02/11/2018 23:11:04 Reading Location: [address]
--- NOTE | 2020-04-29 13:05 | RAD REPORT ---
EXAM DESCRIPTION: CT - Head Brain Wo Cont - 04/29/2020 12:53 pm CLINICAL HISTORY: MENTAL STATUS CHANGE, transient alteration of awareness COMPARISON: Head Brain Wo Cont dated 01/13/2020 TECHNIQUE: Axial 5 mm thick images of the head were obtained without IV contrast. All CT scans are performed using dose optimization technique as appropriate and may include automated exposure control or mA/KV adjustment according to patient size. FINDINGS: No intracranial hemorrhage, mass, edema or shift of mid-line structures. No acute infarcti on changes seen. No abnormal extra-axial fluid collections. Ventricles are normal. Mastoid air cells are clear. Mucosal thickening seen in the maxillary sinuses with right maxillary si nus air-fluid level. Mucosal thickening seen in the ethmoid air cells. No acute bony findings. Intracranial findings are similar to comparison. IMPRESSION: No acute or significant intracranial finding. No significant change from January imag ng. Sinusitis changes are present also similar to the January study.
--- NOTE | 2020-04-29 13:17 | RAD REPORT ---
EXAM DESCRIPTION: RAD - Chest Single View - 04/29/2020 1:03 pm CLINICAL HISTORY: altered mental status COMPARISON: Portable January 11 TECHNIQUE: AP portable chest image was obtained 04/29/2020 1:03 pm . FINDINGS: No acute lung parenchymal process seen. Interstitial pattern matches comparison. Heart and vasculature are normal. No measurable pleural effusion and no pneumothorax. No acute bony abnormalit y seen. No acute aortic findings suspected. IMPRESSION: No acute cardiopulmonary process. No significant change from comparison study.
[2020-04-29 13:23] LABS: Absolute Lymphocytes (CBC) 1.6 K/uL (0.7-4.9); Basophils % 0.7 % (0-1.3); Hematocrit 39.9 % (39.6-49.0); Lymphocytes % 16.3 % (15.3-44.8); MPV 8.7 fL (7.6-11.3); Protime INR 0.92; RBC Red Blood Cell Count 4.45 M/uL (4.33-5.43)
[2020-04-29 13:36] LABS: ALT/SGPT 22 U/L (12-78); AST/SGOT 23 U/L (15-37); Albumin 3.5 g/dL (3.4-5.0); Alkaline Phosphatase 87 U/L (45-117); BUN Blood Urea Nitrogen 9 mg/dL (7-18); Bicarbonate 30 mmol/L (21-32); Bilirubin Direct 0.2 mg/dL (0-0.2); Bilirubin Total 1.1 mg/dL (0.2-1.0); Glucose Level 176 mg/dL (74-106); NT PRO-BNP 51 pg/mL (<125); Potassium 3.7 mmol/L (3.5-5.1); Protein, Total 7.6 g/dL (6.4-8.2); Sodium Level 138 mmol/L (136-145); Troponin (Emerg Dept Use Only) < 0.02 ng/mL (0.0-0.045)
--- NOTE | 2020-04-29 14:32 | EDPHYS ---
Physician Documentation [facility] – [place], [place] Name: Surjit Stubbs Age: 45 yrs Sex: Male : 1975 Arrival Date: 04/29/2020 Time: 12:26 Bed 17 Private MD: ED Physician Reno Lazaro HPI: 04/29 12:45 This 45 yrs old Male presents to ER via EMS with complaints of Altered Mental cp Status, Hypoglycemia. 12:45 The patient presents with confusion. cp 12:45 Onset: The symptoms/episode began/occurred at an unknown time. Possible causes: low cp blood sugar, the patient uses insulin, EMS reports patient had blood glucose level of 54 upon arrival to [facility]. Associated signs and symptoms: Pertinent negatives: abdominal pain, chest pain, combativeness, headache, shortness of breath. Current symptoms: In the emergency department the patient's symptoms have improved, markedly. Patient's baseline: Neuro: alert and fully oriented, Motor: no deficits, Ambulation: walks without assistance, Speech: normal. Historical: - Allergies: 12:36 tramadol; zb - Home Meds: 12:36 gemfibrozil 600 mg Oral tab 1 tab 2 times per day [Active]; Novolog Sub-Q [Active]; zb Levemir subcutaneous [Active]; Glucagon Emergency Kit (human) 1 mg IM kit 1 mL [Active]; levetiracetam 500 mg Oral tab 1 tab 2 times per day [Active]; gabapentin 100 mg Oral cap [Active]; Rowe Thyroid 60 mg Oral tab [Active]; acetaminophen-codeine 300-60 mg Oral tab [Active]; - PMHx: 12:36 Diabetes - IDDM; High Cholesterol; Hypothyroidism; neuropathy; Seizures; zb - Immunization history:: Adult Immunizations up to date. - Social history:: Smoking status: Patient reports the use of cigarette tobacco products, smokes two packs cigarettes per day. ROS: 12:50 Constitutional: Negative for body aches, chills, fever, poor PO intake. cp 12:50 Eyes: Negative for injury, pain, redness, and discharge. cp 12:50 ENT: Negative for ear pain, sore throat, difficulty swallowing, difficulty handling secretions. 12:50 Cardiovascular: Negative for chest pain, edema, palpitations. 12:50 Respiratory: Negative for cough, shortness of breath, wheezing. 12:50 Abdomen/GI: Negative for abdominal pain, nausea, vomiting, and diarrhea. 12:50 Neuro: Negative for headache, seizure activity, speech changes, syncope, weakness. 12:50 All other systems are negative. Exam: 12:55 Constitutional: The patient appears in no acute distress, alert, awake, cp non-diaphoretic, non-toxic, well developed, well nourished, unkempt. 12:55 Head/Face: Normocephalic, atraumatic. cp 12:55 Eyes: Pupils: equal, round, and reactive to light and accomodation, Extraocular movements: intact throughout, Conjunctiva: normal, no exudate, no injection, Sclera: no appreciated abnormality, Lids and lashes: appear normal, bilaterally. 12:55 ENT: External ear(s): are unremarkable, Nose: is normal, Mouth: Lips: moist, Oral mucosa: moist, Posterior pharynx: Airway: no evidence of obstruction, patent. 12:55 Neck: ROM/movement: is normal, is supple, without pain, no range of motions limitations. 12:55 Chest/axilla: Inspection: normal, Palpation: is normal, no crepitus, no tenderness. 12:55 Cardiovascular: Rate: normal, Rhythm: regular, Edema: is not appreciated, JVD: is not appreciated. 12:55 Respiratory: the patient does not display signs of respiratory distress, Respirations: normal, no use of accessory muscles, no retractions, labored breathing, is not present, Breath sounds: are clear throughout, no decreased breath sounds. 12:55 Abdomen/GI: Inspection: abdomen appears normal, Palpation: abdomen is soft and non-tender, in all quadrants. 12:55 Back: pain, is absent, ROM is normal. 12:55 Neuro: Orientation: to person, place \T\ time. Mentation: is normal, Cerebellar function: is grossly normal, Motor: moves all fours, strength is normal, Sensation: is normal. 14:03 ECG was reviewed by the Attending Physician. cp Vital Signs: 12:27 BP 110 / 88; Pulse 94; Resp 16; Temp 97.6; Pulse Ox 100% on R/A; Weight 65.77 kg; zb Height 5 ft. 9 in. (175.26 cm); Pain 4/10; 13:30 BP 124 / 85; Pulse 92; Resp 18; Pulse Ox 100% on R/A; zb 14:10 BP 119 / 85; Pulse 97; Resp 18; Pulse Ox 99% on R/A; zb 12:27 Body Mass Index 21.41 (65.77 kg, 175.26 cm) zb MDM: 12:39 Patient medically screened. cp 13:00 Differential Diagnosis: electrolyte abnormality, alcohol intoxication, hypoglycemia, cp intracranial bleed, seizure, sepsis, volume depletion. 14:32 Data reviewed: vital signs, nurses notes, lab test result(s), EKG, radiologic studies, cp CT scan, plain films. 14:32 Test interpretation: by ED physician or midlevel provider: ECG. Counseling: I had a cp detailed discussion with the patient and/or guardian regarding: the historical points, exam findings, and any diagnostic results supporting the discharge/admit diagnosis, lab results, radiology results, to return to the emergency department if symptoms worsen or persist or if there are any questions or concerns that arise at home. Response to treatment: the patient's symptoms have markedly improved after treatment, and as a result, I will discharge patient. 12 12:39 Order name: Basic Metabolic Panel 04/29 12:39 Order name: CBC with Diff cp 04/29 12:39 Order name: LFT's cp 04/29 12:39 Order name: Magnesium; Complete Time: 14:01 04/29 12:39 Order name: NT PRO-BNP; Complete Time: 14:01 04/29 12:39 Order name: PT-INR; Complete Time: 14:01 04/29 12:39 Order name: Troponin (emerg Dept Use Only); Complete Time: 14:01 04/29 14:31 Interpretation: Within normal limits: TROPED < 0.02. cp 04/29 12:40 Order name: Basic Metabolic Panel; Complete Time: 14:01 EDMS 04/29 14:01 Interpretation: Normal except: GLUC 176; GFR 84. 04/29 12:40 Order name: CBC with Automated Diff; Complete Time: 14:01 EDMS 04/29 14:30 Interpretation: Normal except: EOSINOPHIL % 5.6; EOSA 0.6. cp 04/29 12:40 Order name: Liver (Hepatic) Function; Complete Time: 14:01 EDMS 12/23 14:02 Interpretation: Normal except: BILIT 1.1; GLOB 4.1; A/G 0.9. cp 04/29 14:27 Order name: Glucose, Ancillary Testing EDMO 04/29 14:28 Order name: Glucose, Ancillary Testing; Complete Time: 14:30 EDMO 04/29 12:39 Order name: XRAY Chest (1 view); Complete Time: 14:01 04/29 12:39 Order name: EKG; Complete Time: 12:41 cp 04/29 12:39 Order name: Cardiac monitoring; Complete Time: 13:59 cp 04/29 12:39 Order name: EKG - Nurse/Tech; Complete Time: 13:59 04/29 12:39 Order name: Labs collected and sent; Complete Time: 14:08 04/29 12:39 Order name: O2 Per Protocol; Complete Time: 13:59 04/29 12:39 Order name: O2 Sat Monitoring; Complete Time: 13:59 04/29 12:39 Order name: CT Head Brain wo Cont; Complete Time: 14:01 04/29 14:07 Order name: Diet Ada 1200 Maldonado; Complete Time: 14:07 zb EC:03 Rate is 97 beats/min. Rhythm is regular. ND interval is normal. QRS interval is normal. cp QT interval is normal. Interpreted by me. Reviewed by me. Administered Medications: No medications were administered Disposition: 04/30 08:01 Co-signature as Attending Physician, Reno Lazaro MD I agree with the assessment and kdr plan of care. Disposition: 04/29/20 14:32 Discharged to Home. Impression: Hypoglycemia, unspecified. - Condition is Stable. - Discharge Instructions: Hypoglycemia, Blood Glucose Monitoring, Adult. - Medication Reconciliation Form, Thank You Letter, Antibiotic Education, Prescription Opioid Use form. - Follow up: Private Physician; When: 1 - 2 days; Reason: Recheck today's complaints. - Problem is new. - Symptoms have improved. Signatures: Dispatcher [employer] [facility] Reno Lazaro MD MD kdr Jame Oropeza PA PA cp Shi Cobb, RN RN zb Corrections: (The following items were deleted from the chart) 04/29 14:30 14:02 Normal except: EOSINOPHIL % 5.6. cp cp 15:33 14:32 04/29/2020 14:32 Discharged to Home. Impression: Hypoglycemia, unspecified. zb Condition is Stable. Forms are Medication Reconciliation Form, Thank You Letter, Antibiotic Education, Prescription Opioid Use. Follow up: Private Physician; When: 1 - 2 days; Reason: Recheck today's complaints. Problem is new. Symptoms have improved. cp
--- NOTE | 2020-04-29 14:32 | ER ---
Nurse's Notes [facility] [place] Name: Surjit Stubbs Age: 45 yrs Sex: Male : 1975 Arrival Date: 04/29/2020 Time: 12:26 Bed 17 Private MD: Diagnosis: Hypoglycemia, unspecified Presentation: 04/29 12:27 Chief complaint: EMS states: Correction called about a hour ago stated patient seemed zb confused when EMS arrived patient was aox1. BGL 54 patient was given oral glucose. no effect. Dextrose was hung BGL increased to 188 pt aox4 after but doesn't recall event. Coronavirus screen: At this time, the client does not indicate any symptoms associated with coronavirus-19. Ebola Screen: No symptoms or risks identified at this time. Initial Sepsis Screen: Does the patient meet any 2 criteria? No. Patient's initial sepsis screen is negative. Does the patient have a suspected source of infection? No. Patient's initial sepsis screen is negative. Risk Assessment: Do you want to hurt yourself or someone else? Patient reports no desire to harm self or others. Onset of symptoms was April 29, 2020. 12:27 Method Of Arrival: EMS: [facility] zb 12:27 Acuity: TOI 3 zb Triage Assessment: 12:30 General: Appears in no apparent distress. comfortable, slender, Behavior is zb cooperative, appropriate for age, anxious. Pain: Complains of pain in LLE Pain currently is 4 out of 10 on a pain scale. Quality of pain is described as aching. EENT: No signs and/or symptoms were reported regarding the EENT system. Neuro: Level of Consciousness is awake, alert, obeys commands, Oriented to person, place, time, situation. Cardiovascular: Capillary refill < 3 seconds in bilateral fingers Patient's skin is warm and dry. Respiratory: Airway is patent Respiratory effort is even, unlabored, Respiratory pattern is regular, symmetrical. GI: Abdomen is flat, non-distended. : No signs and/or symptoms were reported regarding the genitourinary system. Derm: Skin is intact, is healthy with good turgor, Skin is pink, warm \T\ dry. Skin temperature is warm. Musculoskeletal: Circulation, motion, and sensation intact. Range of motion: intact in all extremities. Historical: - Allergies: 12:36 tramadol; zb - Home Meds: 12:36 gemfibrozil 600 mg Oral tab 1 tab 2 times per day [Active]; Novolog Sub-Q [Active]; zb Levemir subcutaneous [Active]; Glucagon Emergency Kit (human) 1 mg IM kit 1 mL [Active]; levetiracetam 500 mg Oral tab 1 tab 2 times per day [Active]; gabapentin 100 mg Oral cap [Active]; Dennis Thyroid 60 mg Oral tab [Active]; acetaminophen-codeine 300-60 mg Oral tab [Active]; - PMHx: 12:36 Diabetes - IDDM; High Cholesterol; Hypothyroidism; neuropathy; Seizures; zb - Immunization history:: Adult Immunizations up to date. - Social history:: Smoking status: Patient reports the use of cigarette tobacco products, smokes two packs cigarettes per day. Screenin:36 Abuse screen: Denies threats or abuse. Denies injuries from another. Nutritional zb screening: No deficits noted. Tuberculosis screening: No symptoms or risk factors identified. Fall Risk None identified. Assessment: 12:30 Reassessment: Patient appears in no apparent distress at this time. See triage zb assessment. 13:30 Reassessment: Patient appears in no apparent distress at this time. Patient and/or zb family updated on plan of care and expected duration. Pain level reassessed. Patient is alert, oriented x 3, equal unlabored respirations, skin warm/dry/pink. Pt up ad katerina. currently aox4. anxious. no c/o of pain or discomfort at time. 14:08 Reassessment: Patient appears in no apparent distress at this time. Patient and/or zb family updated on plan of care and expected duration. Pain level reassessed. Patient is alert, oriented x 3, equal unlabored respirations, skin warm/dry/pink. pt currently refusing IV. ECP notified. 14:17 Reassessment: BGL 168. zb 15:25 Reassessment: Patient appears in no apparent distress at this time. Patient and/or zb family updated on plan of care and expected duration. Pain level reassessed. Patient is alert, oriented x 3, equal unlabored respirations, skin warm/dry/pink. pt aox4. up ad katerina. anxious d/c instruction given. IV removed. Vital Signs: 12:27 BP 110 / 88; Pulse 94; Resp 16; Temp 97.6; Pulse Ox 100% on R/A; Weight 65.77 kg; zb Height 5 ft. 9 in. (175.26 cm); Pain 4/10; 13:30 BP 124 / 85; Pulse 92; Resp 18; Pulse Ox 100% on R/A; zb 14:10 BP 119 / 85; Pulse 97; Resp 18; Pulse Ox 99% on R/A; zb 12:27 Body Mass Index 21.41 (65.77 kg, 175.26 cm) zb ED Course: 12:26 Patient arrived in ED. zb 12:30 Patient has correct armband on for positive identification. Fall risk band placed. Side zb rails up X 1. patient monitor on. Pulse ox on. NIBP on. 12:30 Arm band placed on right wrist. zb 12:32 Triage completed. zb 12:34 Jame Oropeza PA is PHCP. cp 12:34 Reno Lazaro MD is Attending Physician. cp 12:52 CT Head Brain wo Cont In Process Unspecified. EDMS 12:59 Shi Cobb, RN is Primary Nurse. zb 13:03 XRAY Chest (1 view) In Process Unspecified. EDMS 15:25 No provider procedures requiring assistance completed. IV discontinued, intact, zb bleeding controlled, No redness/swelling at site. Pressure dressing applied. Administered Medications: No medications were administered Outcome: 14:32 Discharge ordered by MD. cp 15:25 Discharged to home ambulatory. zb 15:25 Condition: stable 15:25 Discharge instructions given to patient, Instructed on discharge instructions, follow up and referral plans. Demonstrated understanding of instructions, follow-up care. 15:33 Patient left the ED. zb Signatures: Dispatcher [employer] EDMS Jame Oropeza PA PA cp Shi Cobb, RN RN zb Corrections: (The following items were deleted from the chart) 19:47 14:25 Reassessment: Patient appears in no apparent distress at this time. Patient zb and/or family updated on plan of care and expected duration. Pain level reassessed. Patient is alert, oriented x 3, equal unlabored respirations, skin warm/dry/pink. pt aox4. up ad katerina. anxious d/c instruction given. IV removed zb
[2020-04-29 18:19] VITALS: TEMP 97.6
[2020-04-29 18:21] VITALS: BP 119/85; O2SAT 99
== END 2020-04-29 15:33 | disposition home or self-care (01) ==
LOC: ER 12:24
DX: E11.649 Type 2 diabetes mellitus with hypoglycemia without coma (principal); E03.9 Hypothyroidism, unspecified; E78.00 Pure hypercholesterolemia, unspecified; F17.210 Nicotine dependence, cigarettes, uncomplicated; Z79.4 Long term (current) use of insulin
CPT/HCPCS: 36415; 70450; 71045; 80048; 80076; 82947; 83735; 83880; 84484; 85025; 85610; 93005; 99284

== ENCOUNTER 2020-08-24 14:47 | Emergency (ER) | payer SELFPAY ==
--- OUTSIDE RECORDS SUMMARY | 2020-08-24 14:50 | XMS REPORT | Continuity of Care Document ---
:1975 Author Organization [facility] t Address [address] [place] [address] Dr. [address] [place] [address] Care Team Providers Name Role Phone Erin Casper MD Attending Clinician LEONID MANRIQUE Attending Clinician Unavailable LEONID MANRIQUE Admitting Clinician Unavailable Problems Condition Condition Condition Status Onset Resolution Last Treating Co mments Source Name Details Category Date Date Treatment Clinician Date 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 protein-[facility]10 [facility] - lizbet lizbet 00:00: Medical malnutriti malnutriti 00 Ce nter on on Diabetes Diabetes Disease Active 2017[facility] Hyperchole Hyperchole Disease Active 2017-[address] steremia steremia 0-08 [facility] Medical 00 [place] Thyroid Thyroid Disease Active 2017-[address] disease disease 0-08 [facility] Leukocytos Leukocytos Disease Active 2017-[address] is is 0-08 [facility] Anemia Anemia Disease Active 2017-[address] [facility] 0-08 [facility] Provoked Provoked Disease Active 2017-[facility] Acute Acute Disease Active 2017-[address] [facility] encephalop encephalop 0-08 [facility] - athy athy 00:00: Medical 00 Center Hyperglyce Hyperglyce Disease Active 2017-[address] yvan yvan 0-08 [facility] Convulsive Convulsive Disease Active 2017-[address] seizure seizure 0-07 [facility] - disorder disorder 00:00: Medica l with with 00 Center status status epilepticu epilepticu s s Allergies, Adverse Reactions, Alerts This patient has no known allergies or adverse reactions. Social History Social Habit Start Date Stop Date Quantity Comments Source Sex Assigned At [facility] Tobacco use and 2018-02-13 2018-02-[address] [facility] - exposure 00:00:00 00:00:00 [facility] Smoking Status Start Date Stop Date Source Current every day smoker 2018-02-13 00:00:00 [facility] Medications Ordered Filled Start Stop [...] [facility] en-codeine 0-09 tablet by Luke [facility] - (TYLENOL 17:55: mouth Medical #4) 300-60 10 every 6 Center mg per (six) tablet hours as needed for Pain. Immunizations Ordered Immunization Filled Immunization Date Status Commen ts Source Name Name Influenza Four-QIV 2018-02-13 Completed [facility] Non-PF 5+ YR 00:00:00 Medical Cent er Procedures This patient has no known procedures. Plan of Care Planned Activity Planned Date Details Comments Source Future Scheduled 2021-02-[address] [facility] - Test 00:00:00 (procedure) [code = Medical Center 31936050] Future Scheduled 2020-05-[address] [facility] Test 00:00:00 (12+) [code = Medical Center DEPRESSION SCREENING (12+)] Future Scheduled 2020-01-07 INFLUENZA VACCINE (#1) [facility] Test 00:00:00 [code = INFLUENZA Medical Ce nter VACCINE (#1)] Future Scheduled 2018-08-[address] [facility] - Test 00:00:00 measurement Medical Center (procedure) [code = 11554535] Future Scheduled 1993 DTAP/TDAP/TD VACCINES [facility] Test 00:00:00 (1 - Tdap) [code = Medical C enter DTAP/TDAP/TD VACCINES (1 - Tdap)] Future Scheduled 1992-01-26 HEPATITIS C SCRE[facility]ING [facility] Test 00:00[facility]00 [code = HEPATITIS C Medical Center SCREENING] Future Scheduled 1984-01-26 DIABETIC EYE EXAM [facility] Test 00:00:00 [code = DIABETIC EYE Medical Center EXAM] Future Scheduled 1984-01-[address] [facility] - Test 00:00:00 examination Medical Center (regime/therapy) [code = 065070778] Future Scheduled 1984-01-26 Urine screening for [facility] Test 00:[facility]:00 protein (procedure) Medical Center [code = 217870896] Future Scheduled 1980-01-[address] [facility] - Test 00:00:00 0-64 YRS (1 of 1 - Medical C enter PPSV23) [code = PNEUMOCOCCAL VACCINE 0-64 YRS (1 of 1 - PPSV23)] Encounters Start End Encounter Admission Attending Care Care Encounter Source Date/Time Date/Time Type Type Clinicians Facility Department ID 2020-08-17 2020-08-17 [facility] [id number] 16:01:43 23:59:00 Encounter [facility] [id number] Surgical [id number] Specialti [id number] es 809 [place] Results Test Description Test Time Test Comments Results Result Comments Source BLOOD CULTURE 2018-02-17 06:00:00 Test Item Value Reference Range Interpretation Comme nts CULTURE (BEAKER) (test code = 1095) No growth in 5 days URINE [id number] 10:25:00 Test Item Value Reference Range Interpretation Comments CULTURE (GLORIA) (test code = 1095) No growth POCT-GLUCOSE [id number] 17:10:00 Test Item Value Reference Range Interpretation Comments POC-GLUCOSE METER 232 mg/dL 70-[address] [facility] [address] ([facility]) (test code = CESAR Servin [place] [address]) [address] [address], CTANGIO [id number] 16:41:00CTV pleaseFINAL REPORT CTV brain 02/13/2018 4:35 [...] Sky Verified Date/Time: 02/13/2018 16:41:24 Reading Location: [facility] Radiology Reading Room POCT-GLUCOSE [id number] 13:07:00 Test Item Value Reference Range Interpretation Comments POC-GLUCOSE METER 311 mg/dL 70-110 H Notified Gareth Coronado MD/TESTED ([facility]) (test code = AT [facility] [address] [facility] [address]) [place] [address] 0 IRON, TIBC, % SAT. (WITHOUT FERRITIN)2018-02-13 10:10:00 Test Item Value Reference Range Interpretation Comments IRON (BEAKER) (test code = 547) 49 ug/dL 40-160 TOTAL IRON BINDING CAPACITY 231 ug/dL 250-450 L (BEAKER) (test code = 769) IRON % SATURATION (2) (BEAKER) 21 % 20-55 (test code = 2590) POCT-GLUCOSE [id number] 08:50:00 Test Item Value Reference Range Interpretation Comments POC-GLUCOSE METER 348 mg/dL 70-110 H Notified R N MD/TESTED (BEAKER) (test code = AT [facility] [address] [facility] [address]) [place] [address] 0 BASIC METABOLIC [id number] 08:31:00 Test Item Value Reference Range Interpretation [...] NOT APPLICABLE FOR DIALYSIS PATIEN TS. LIPID [id number] 08:31:00 Test Item Value Reference Range Interpretation [...] 130-159 High 160-189 Very High >=190IMMATURE RETICULOCYTE [id number] 08:16:00 Test Item Value Reference Range Interpretation Comments IMMATURE RETIC FRACTION (BEAKER) 8.600 % 2.300-13.400 (test code = 1447) RETICULOCYTE COUNT PCT (BEAKER) (test 1.4 % 0.5-1.8 code = 575) CBC W/PLT COUNT & AUTO [id number] 08:16:00 Test Item Value Reference Range Interpretation [...] PERCENT (BEAKER) (test code = 2801) POCT-GLUCOSE [id number] 21:18:00 Test Item Value Reference Range Interpretation Comments POC-GLUCOSE METER 226 mg/dL 70-[address] [facility] [address] (BEAKER) (test code = CESAR Servin [facility] 1538) [address] MR, BRAIN, WITHOUT [id number] 19:43:00FINAL REPORT MRI brain without contrast INDICATION: [...] thrombus cannot be excluded. The major proximal modoc of [place] flow voids are maintained. Mild [...] MDReport Verified Date/Time: 02/12/2018 19:43:32 Reading Location: [facility] Radiology Reading Room POCT-GLUCOSE [id number] 19:01:00 Test Item Value Reference Range Interpretation Comments POC-GLUCOSE METER 362 mg/dL 70-110 H TESTED AT [place] [address] ([facility]) (test code = DARRYLANA Gareth [place] 1538) [address] EEG AWAKE AND [id number] 17:46:00Reason for exam:->SeizureShould this be performed at the bedside?->[facility] EEG REPORTDATE OF TEST: 07-7-2556BLWM OF REPORT: [id number]: [id number]: [id number] time: 14:04Stop time: 14:24ICD-10: R56.9CPT Code: 58660VGAEWWG: 40 y old 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, [...] this report.Queenie Loco MD, PhDClinical Neurophysiology/Epilepsy AttendingCHI [facility] POCT- GLUCOSE [id number] 15:33:00 Test Item Value Reference Range Interpretation Comments POC-GLUCOSE METER 213 mg/dL 70-[address] [facility] [address] ([facility]) (test code = [facility] 1538) [address] TSH/FREE T4 IF [id number] 09:35:00 Test Item Value Reference Range Interpretation Comments THYROID STIMULATING HORMONE 4.03 uIU/mL 0.35-4.94 (BEAKER) (test code = 772) HEMOGLOBIN [id number] 08:47:00 Test Item Value Reference Range Interpretation Comments HEMOGLOBIN A1C (BEAKER) (test code = 6.5 % 4.3-6.1 H 368) POCT-GLUCOSE [id number] 07:55:00 Test Item Value Reference Range Interpretation Comments POC-GLUCOSE METER 219 mg/dL 70-[address] [facility] [facility] (test code = BANNER Gareth [facility] 1538) [address] [id number] 05:00:00 Test Item Value Reference Range Interpretation Comments MAGNESIUM (BEAKER) (test code = 2.1 mg/dL 1.6-2.6 627) BASIC METABOLIC [id number] 05:00:00 Test Item Value Reference Range Interpretation [...] PATIEN TS. CBC W/PLT COUNT & AUTO [id number] 04:40:00 Test Item Value Reference Range Interpretation [...] PERCENT (BEAKER) (test code = 2801) POCT-GLUCOSE [id number] 04:31:00 Test Item Value Reference Range Interpretation Comments POC-GLUCOSE METER 183 mg/dL 70-[address] [facility] [address] (BEAKER) (test code = CESAR Servin [facility] 1538) [address] RAD, ABDOMEN/KUB, 1 VIEW [id number] 01:33:00Reason for exam:->Abdominal distension, obtundationFINAL REPORT CLINICAL [...] in the pelvis. Signed: Wilfredo De Leon [facility] Hospital[facility] Verified Date/Time: 02/12/2018 01:33:19 Reading Location: [facility] C0[facility] Transitional Reading Room -GLUCOSE [id number] 00:49:00 Test Item Value Reference Range Interpretation Comments POC-GLUCOSE METER 346 mg/dL 70-[address] [facility] [address] (BEAKER) (test code = CESAR [place] 1538) [address] CBC W/PLT COUNT & AUTO [id number] 00:44:00 Test Item Value Reference Range Interpretation [...] (test code = 2801) RAPID DRUG SCREEN, [id number] 00:35:00 Test Item Value Reference Range Interpretation [...] situations. Chain of custody not maintained. Some rhpi-nxt-imtxxqu medications, as well as adulterants, may cause inaccurate results. Clinical correlation should be applied. A more comprehensive drug screen or confirmation of a detected drug may be performed upon request. TROPONIN [id number] 00:15:00 Test Item Value Reference Range Interpretation [...] acute neurological disease, and persistent tachyarrhythmia.COMPREHENSIVE METABOLIC [id number] 00:09:00 Test Item Value Reference Range Interpretation [...] APPLICABLE FOR DIALYSIS PATIEN TS. URINALYSIS W/ [id number] 00:06:00 Test Item Value Reference Range Interpretation [...] = 2795) RAD, CHEST, 1 VIEW, NON [id number] 23:11:00Reason for exam:->Obtundation with coarse respirations, baselineShould this be performed at the [facility]?->YesFINAL REPORT RAD, CHEST, 1 VIEW, NON DEPT INDICATION: Obtundation with coarserespirations, baseline COMPARISON: None. FINDINGS: Portable frontal view of the chest. IMPRESSION: Support Lines: None. Lungs and pleura: Clear lungs. No pneumothorax.Heart and mediastinum: Unremarka ble. Additional findings: Fluid and gaseous distention of the gastric lumen. Signed: JR Lozano Robert MDReport Verified Date/Time: 02/11/2018 23:11:04 Reading Location: [address] Room
[2020-08-24] MEDS ORDERED: D50W 50 ML IV ONE (15:09)
[2020-08-24] MEDS ORDERED: D5 0.45 NS 0 ML IV ONE (15:33)
--- NOTE | 2020-08-24 15:39 | EDPHYS ---
Physician Documentation [facility] Name: Surjit Stubbs Age: 45 yrs Sex: Male : 1975 Arrival Date: 08/24/2020 Time: 14:49 Bed 28 Private MD: ED Physician Ezio Chew HPI: 08/24 16:11 This 45 yrs old Male presents to ER via EMS with complaints of Seizure, Low tw4 Blood Sugar. 16:11 The patient presents after having a possible seizure episode, no tonic-clonic activity tw4 was appreciated. Character of seizure(s): Loss of consciousness: it is not known if the patient experienced loss of consciousness, Motor activity:. Context: the seizure(s) was witnessed, by a bystander. Seizure Hx: the patient has no previous seizure history. Associated injury: The patient did not suffer any apparent associated injury. The patient has not experienced similar symptoms in the past. Historical: - Allergies: 15:07 tramadol; ca1 - PMHx: 15:07 Diabetes - IDDM; High Cholesterol; Hypothyroidism; neuropathy; Seizures; ca1 - Immunization history:: Adult Immunizations not immunized, Client reports having NOT received the Covid vaccine. Flu vaccine status is unknown. - Social history:: Smoking status: Patient reports the use of cigarette tobacco products, smokes two packs cigarettes per day. ROS: 16:11 Constitutional: Negative for fever, chills, and weight loss, Eyes: Negative for injury, tw4 pain, redness, and discharge, Cardiovascular: Negative for chest pain, palpitations, and edema, Respiratory: Negative for shortness of breath, cough, wheezing, and pleuritic chest pain, Abdomen/GI: Negative for abdominal pain, nausea, vomiting, diarrhea, and constipation, MS/Extremity: Negative for injury and deformity, Skin: Negative for injury, rash, and discoloration. 16:11 Neuro: Positive for altered mental status, seizure activity, Negative for dizziness, gait disturbance. Exam: 16:11 Constitutional: This is a well developed, well nourished patient who is awake, alert, tw4 and in no acute distress. Head/Face: Normocephalic, atraumatic. Chest/axilla: Normal chest wall appearance and motion. Nontender with no deformity. No lesions are appreciated. Cardiovascular: Regular rate and rhythm with a normal S1 and S2. No gallops, murmurs, or rubs. Normal PMI, no JVD. No pulse deficits. Respiratory: Lungs have equal breath sounds bilaterally, clear to auscultation and percussion. No rales, rhonchi or wheezes noted. No increased work of breathing, no retractions or nasal flaring. Abdomen/GI: Soft, non-tender, with normal bowel sounds. No distension or tympany. No guarding or rebound. No evidence of tenderness throughout. Back: No spinal tenderness. No costovertebral tenderness. Full range of motion. MS/ Extremity: Pulses equal, no cyanosis. Neurovascular intact. Full, normal range of motion. 16:11 Neuro: Orientation: to person, Not oriented to place, time, situation, Mentation: confused, Memory: is normal, Motor: moves all fours. Vital Signs: 15:01 BP 138 / 108; Pulse 93; Resp 18 S; Temp 96.1; Pulse Ox 95% on R/A; ca1 [place] Coma Score: 15:07 Eye Response: spontaneous(4). Verbal Response: confused(4). Motor Response: obeys ca1 commands(6). Total: 14. MDM: 15:38 Patient medically screened. tw4 16:13 Differential diagnosis: seizure. Data reviewed: vital signs, nurses notes. Data tw4 interpreted: Pulse oximetry: Interpretation: normal. Counseling: I had a detailed discussion with the patient and/or guardian regarding: the historical points, exam findings, and any diagnostic results supporting the discharge/admit diagnosis. 16:14 ED course: Pts initial check on arrival was 43. Pt given 1 amp of D50. Pt recheck of BS tw4 was 103. Pt stated that he did no want to continue care. Risk of leaving explained. Pt awake alert and oriented times 3 . 08/24 14:53 Order name: Troponin (emerg Dept Use Only) tw4 08/24 14:53 Order name: Basic Metabolic Panel tw4 08/24 14:53 Order name: CBC with Diff tw4 08/24 14:53 Order name: glucometer results - FOR PT WITH NO ID; Complete Time: 15:05 ss 08/24 15:32 Order name: Glucose, Ancillary Testing EDMS 08/24 14:53 Order name: EKG; Complete Time: 14:54 tw4 08/24 14:53 Order name: IV Saline Lock; Complete Time: 14:59 [facility] 08/24 14:53 Order name: NPO; Complete Time: 15:00 [facility] 08/24 14:53 Order name: O2 Per Protocol; Complete Time: 15:00 [facility] 08/24 14:53 Order name: O2 Sat Monitoring; Complete Time: 15:00 [facility] 08/24 15:43 Order name: Glucose, Ancillary Testing EDMS Administered Medications: 14:55 Drug: D50W 50 ml Route: IVP; Site: right antecubital; ca1 15:55 Follow up: Response: Blood sugar is elevated ca1 15:25 Not Given (Patient Refused): D5-1/2 NS 1000 ml IV at 100 ml/hr continuous ca1 Disposition: 08/24/20 15:38 Patient has left against medical advice. Impression: Hypoglycemia, unspecified. - Patients states they are going to Home. - Condition is Stable. Follow up: Private Physician; When: Upon discharge from the Emergency Department; Reason: Recheck today's complaints, Continuance of care, Re-evaluation by your physician. - Problem is new. - Symptoms have improved. Signatures: Dispatcher [employer] EDMS Ezio Chew MD MD tw4 Jhoana Lemos RN RN ca1 Corrections: (The following items were deleted from the chart) 15:25 14:53 EKG - Nurse/Tech ordered. tw4 ca1 15:55 14:53 Labs collected and sent ordered. tw4 ca1 15:56 14:53 Cardiac monitoring ordered. tw4 ca1 15:56 14:53 Urine Dipstick-Ancillary ordered. tw4 ca1 15:58 15:38 08/24/2020 15:38 Patients has left against medical advice. Impression: ca1 Hypoglycemia, unspecified. Patient states they are going to Home. Condition is Stable. Follow up: Private Physician; When: Upon discharge from the Emergency Department; Reason: Recheck today's complaints, Continuance of care, Re-evaluation by your physician. Problem is new. Symptoms have improved. tw4 16:17 16:13 ED course: pt initial check on BS was 43.. tw4 tw4
--- NOTE | 2020-08-24 15:39 | ER ---
Nurse's Notes [facility] Name: Surjit Stubbs Age: 45 yrs Sex: Male : 1975 Arrival Date: 08/24/2020 Time: 14:49 Bed 28 Private MD: Diagnosis: Hypoglycemia, unspecified Presentation: 08/24 15:01 Acuity: TOI 2 ca1 15:01 Chief complaint: EMS states: Pt unresponsive, bystanders reported seizures x 2. Known ca1 diabetic. BGL LO on scene, gave 150ML D50W, Pt now A\T\Ox4. HX of alcohol abuse. Coronavirus screen: Client denies travel out of the [place] in the last 14 days. Client reports previous positive COVID test result. Date of collection: August 23, 2020. Ebola Screen: Patient negative for fever greater than or equal to 101.5 degrees Fahrenheit, and additional compatible Ebola Virus Disease symptoms Patient denies exposure to infectious person. Patient denies travel to an Ebola-affected area in the 21 days before illness onset. No symptoms or risks identified at this time. Initial Sepsis Screen: Does the patient meet any 2 criteria? No. Patient's initial sepsis screen is negative. Does the patient have a suspected source of infection? No. Patient's initial sepsis screen is negative. Risk Assessment: Do you want to hurt yourself or someone else? Patient reports no desire to harm self or others. Onset of symptoms was August 24, 2020. 15:01 Method Of Arrival: EMS: [facility] ca1 Triage Assessment: 15:07 General: Appears in no apparent distress. comfortable, Behavior is cooperative, ca1 appropriate for age, agitated. Pain: Complains of pain in all over Pain currently is 9 out of 10 on a pain scale. EENT: No signs and/or symptoms were reported regarding the EENT system. Neuro: Level of Consciousness is awake, alert, obeys commands, Oriented to person, place, situation. Cardiovascular: Heart tones S1 S2 present Capillary refill < 3 seconds Patient's skin is warm and dry. Respiratory: Airway is patent Respiratory effort is even, unlabored, Respiratory pattern is regular, symmetrical, Breath sounds are clear bilaterally. GI: Abdomen is flat, non-distended, Bowel sounds present X 4 quads. Abd is soft and non tender X 4 quads. : No signs and/or symptoms were reported regarding the genitourinary system. Derm: Skin is intact, is healthy with good turgor, Skin is pink, warm \T\ dry. Musculoskeletal: Circulation, motion, and sensation intact. Capillary refill < 3 seconds. Historical: - Allergies: 15:07 tramadol; ca1 - PMHx: 15:07 Diabetes - IDDM; High Cholesterol; Hypothyroidism; neuropathy; Seizures; ca1 - Immunization history:: Adult Immunizations not immunized, Client reports having NOT received the Covid vaccine. Flu vaccine status is unknown. - Social history:: Smoking status: Patient reports the use of cigarette tobacco products, smokes two packs cigarettes per day. Screenin:09 Abuse screen: Denies threats or abuse. Denies injuries from another. Nutritional ca1 screening: No deficits noted. Tuberculosis screening: No symptoms or risk factors identified. Fall Risk Fall in past 12 months (25 points). IV access (20 points). Total Beck Fall Scale indicates High Risk Score (45 or more points). Fall prevention measures have been instituted. Side Rails Up X 2 As available patient and family educated on Fall Prevention Program and Strategies. Assessment: 15:32 Reassessment: Reassessment: Patient appears in no apparent distress at this time. ca1 Patient is alert, oriented x 3, equal unlabored respirations, skin warm/dry/pink. Pt refused labs, ekg, tests and IVF. Notified provider. BGL 100 at this time. AMA signed. 15:57 Reassessment: Pt wheeled to car with significant other. ca1 Vital Signs: 15:01 BP 138 / 108; Pulse 93; Resp 18 S; Temp 96.1; Pulse Ox 95% on R/A; ca1 [place] Coma Score: 15:07 Eye Response: spontaneous(4). Verbal Response: confused(4). Motor Response: obeys ca1 commands(6). Total: 14. ED Course: 14:49 Patient arrived in ED. ds1 14:51 Ezio Chew MD is Attending Physician. tw4 14:59 Jhoaan Lemos, MELANIE is Primary Nurse. ca1 15:01 Triage completed. ca1 15:07 Arm band placed on right wrist. ca1 15:09 Patient has correct armband on for positive identification. Bed in low position. Call ca1 light in reach. Side rails up X2. Seizure precautions initiated. analysis tester on. Pulse ox on. NIBP on. Warm blanket given. 15:58 No provider procedures requiring assistance completed. IV discontinued, intact, ca1 bleeding controlled, No redness/swelling at site. Pressure dressing applied. Administered Medications: 14:55 Drug: D50W 50 ml Route: IVP; Site: right antecubital; ca1 15:55 Follow up: Response: Blood sugar is elevated ca1 15:25 Not Given (Patient Refused): D5-1/2 NS 1000 ml IV at 100 ml/hr continuous ca1 Outcome: 15:58 AMA AMA form signed ca1 15:58 Condition: improved 15:58 Patient left the ED. ca1 Signatures: Jeanette Mendes ds1 Ezio Chew MD MD tw4 Jhoana Lemos RN RN ca1 Corrections: (The following items were deleted from the chart) 15:57 15:32 Reassessment: ca1 ca1
[2020-08-24 16:17] VITALS: BP 138/108; TEMP 96.1; O2SAT 95
== END 2020-08-24 15:58 | disposition left against medical advice (07) ==
LOC: ER 14:47
DX: E11.649 Type 2 diabetes mellitus with hypoglycemia without coma (principal); F17.210 Nicotine dependence, cigarettes, uncomplicated; Z88.5 Allergy status to narcotic agent
CPT/HCPCS: 36415; 82947; 96374; 99284; J7799

== ENCOUNTER 2020-10-17 09:24 | Emergency (ER) | payer SELFPAY ==
[2020-10-17 09:54] LABS: Absolute Lymphocytes (CBC) 0.9 K/uL (0.7-4.9); Basophils % 0.3 % (0-1.3); Hematocrit 42.3 % (39.6-49.0); Lymphocytes % 9.5 % (15.3-44.8); MPV 8.5 fL (7.6-11.3); RBC Red Blood Cell Count 4.52 M/uL (4.33-5.43)
[2020-10-17] MEDS ORDERED: NA CHLORIDE 0.9% 1,000 ML ONE (10:11)
[2020-10-17 10:12] LABS: Magnesium 2.3 mg/dL (1.8-2.4)
[2020-10-17 10:14] LABS: Potassium 2.7 mmol/L (3.5-5.1)
[2020-10-17] MEDS ORDERED: METHYLPREDNISOLONE 125 MG INJ ONE (10:20)
--- NOTE | 2020-10-17 11:00 | ER ---
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 Pt now A\\T\\O x 4. FSBG at this time is 152. Pt given juice to drink, awaiting food tray. 09: Onset of symptoms was October 17, 2020. aa5 09:27 Coronavirus screen: Client denies travel out of the [place] in the last 14 days. At this aa5 time, the client does not indicate any symptoms associated with coronavirus-19. Ebola Screen: Patient negative for fever greater than or equal to 101.5 degrees Fahrenheit, and additional compatible Ebola Virus Disease symptoms. Initial Sepsis Screen: Does the patient meet any 2 criteria? No. Patient's initial sepsis screen is negative. Does the patient have a suspected source of infection? No. Patient's initial sepsis screen is negative. Risk Assessment: Do you want to hurt yourself or someone else? Patient reports no desire to harm self or others. :27 Method Of Arrival: EMS: [facility] aa5 09:27 Acuity: TOI 3 aa5 Triage Assessment: 11:13 General: Appears unkempt, Behavior is cooperative, appropriate for age. Pain: Denies ll1 pain. Neuro: Level of Consciousness is awake, alert, obeys commands, Oriented to person, place, time, situation, Appropriate for age Stone Circular Sawyer are equal bilaterally Moves all extremities. Full function Gait is steady. Historical: - Allergies: : tramadol; aa5 - PMHx: : Diabetes - IDDM; High Cholesterol; Hypothyroidism; neuropathy; Seizures; aa5 - Immunization history:: Adult Immunizations unknown. - Social history:: Smoking status: Patient reports the use of cigarette tobacco products, smokes two packs cigarettes per day. - Family history:: not pertinent. - Hospitalizations: : No recent hospitalization is reported. Screenin:12 Abuse screen: Denies threats or abuse. Nutritional screening: No deficits noted. ll1 Tuberculosis screening: No symptoms or risk factors identified. Fall Risk Fall in past 12 months (25 points). Secondary diagnosis (15 points) AMS. IV access (20 points). Gait- Weak (10 pts.). Total Beck Fall Scale indicates High Risk Score (45 or more points). Fall prevention measures have been instituted. Side Rails Up X 2 Placed Close to Nursing Station Frequent Obs/Assessments Occuring Family Present and informed to notify staff if the need to leave the bedside As available patient and family educated on Fall Prevention Program and Strategies. Assessment: 09:37 Reassessment: Pt given food tray, encouraged pt to eat, pt verbalized understanding. Pt aa5 did not drink the juice provided earlier. Notified of need for him to eat and verbalized understanding. . 09:56 Reassessment: Patient is alert, oriented x 3, equal unlabored respirations, skin aa5 warm/dry/pink. Pt has not eaten any of the food and has not drank any juice, pt encouraged to eat to prevent hypoglycemia. Pt states "I don't feel good" but refused to elaborate on symptoms, pt states "I am doing the best I can and right now I can't eat". Explained to pt need to eat, pt continues to refuse, pt states "just let me be and I am not going to argue with you", explained to pt I am encouraging him to eat to prevent another episode of hypoglycemia. MD was notified. . 10:50 Reassessment: No changes from previously documented assessment. Patient and/or family ll1 updated on plan of care and expected duration. Pain level reassessed. 11:12 Reassessment: No changes from previously documented assessment. Patient and/or family ll1 updated on plan of care and expected duration. Pain level reassessed. Vital Signs: 09:27 BP 138 / 95; Pulse 113; Resp 18 S; Temp 97.6(O); Pulse Ox 99% on R/A; Weight 65.77 kg aa5 (R); Height 5 ft. 9 in. (175.26 cm) (R); Pain 0/10; 11:11 BP 135 / 93; Pulse 106; Resp 17; Pulse Ox 100% on R/A; Pain 0/10; ll1 09:27 Body Mass Index 21.41 (65.77 kg, 175.26 cm) aa5 ED Course: 09:27 Patient arrived in ED. aa5 09:27 Arm band placed on. aa5 09:28 Frankie Wick MD is Attending Physician. rn 09:48 Triage completed. aa5 09:49 Monae Oliver, RN is Primary Nurse. rb3 09:49 CBC with Diff Sent. mh5 09:49 Magnesium Sent. mh5 09:49 BMP Sent. mh5 09:49 Initial lab(s) drawn, by sc, sent to lab. Maintain EMS IV. Dressing intact. Site clean mh5 \\T\\ dry. 09:50 Patient has correct armband on for positive identification. Placed in gown. Bed in low mh5 position. Call light in reach. Side rails up X2. Warm blanket given. java user interface developer on. Pulse ox on. NIBP on. 10:14 Notified ED physician of a critical lab result(s). 2.7 potassium. aa5 11:11 No provider procedures requiring assistance completed. IV discontinued, intact, ll1 bleeding controlled, No redness/swelling at site. Pressure dressing applied. Administered Medications: 09:55 Drug: NS 0.9% 1000 ml Route: IV; Rate: 1000 ml; Site: left forearm; aa5 10:50 Follow up: IV Status: Completed infusion rb3 10:04 Drug: SOLU-Medrol (methylPrednisoLONE) 125 mg Route: IVP; Site: left antecubital; rb3 10:30 Follow up: Response: No adverse reaction rb3 11:13 Not Given (Patient Refused; Provider notified): Potassium Chloride 10 mEq IV at rb3 calculated rate once; administer over 1-2 hours Point of Care Testing: Blood Glucose: 09:30 Blood Glucose: 152 mg/dL; aa5 10:33 Blood Glucose: 114 mg/dL; rb3 Ranges: Outcome: 10:59 Discharge ordered by . rn 11:12 Discharged to home ambulatory. ll1 11:12 Condition: stable 11:12 Discharge instructions given to patient, Instructed on discharge instructions, follow up and referral plans. Demonstrated understanding of instructions, follow-up care. 11:13 Patient left the ED. ll1 Signatures: Frankie Wick MD MD rn Calderon, Audri, RN RN inder5 Poonam Yeboah Lynsay RN RN ll1 Monae Oliver RN RN rb3
--- NOTE | 2020-10-17 11:00 | EDPHYS ---
Physician Documentation [facility] Name: Surjit Stubbs Age: 45 yrs Sex: Male : 1975 Arrival Date: 10/17/2020 Time: 09:27 Bed 19 Private MD: ED Physician Frankie Wick HPI: 10/17 09:36 This 45 yrs old Male presents to ER via Unassigned with complaints of Altered rn Mental Status, low blood sugar. 09:36 The patient presents with decreased responsiveness. Onset: The symptoms/episode rn began/occurred this morning. Possible causes: low blood sugar. Associated signs and symptoms: Pertinent negatives: abdominal pain, chest pain, headache, palpitations, shortness of breath, vomiting. Current symptoms: In the emergency department the patient's symptoms have improved. The patient has experienced similar episodes in the past. The patient has been recently seen by a physician:. Per EMS, found outside on ground, low blood sugar, decreased responsiveness, has happened multiple times before, no reported seizure activity. Pt denies focal pain or problem, glucose in 20s, given IV and oral glucose with improvement of mental status. Has not felt ill recently. . Historical: - Allergies: 09:27 tramadol; aa5 - PMHx: 09:27 Diabetes - IDDM; High Cholesterol; Hypothyroidism; neuropathy; Seizures; aa5 - Immunization history:: Adult Immunizations unknown. - Social history:: Smoking status: Patient reports the use of cigarette tobacco products, smokes two packs cigarettes per day. - Family history:: not pertinent. - Hospitalizations: : No recent hospitalization is reported. ROS: 09:36 Constitutional: Negative for fever, chills, and weight loss, Eyes: Negative for injury, rn pain, redness, and discharge, Neck: Negative for injury, pain, and swelling, Cardiovascular: Negative for chest pain, palpitations, and edema, Respiratory: Negative for shortness of breath, cough, wheezing, and pleuritic chest pain, Abdomen/GI: Negative for abdominal pain, nausea, vomiting, diarrhea, and constipation, Back: Negative for injury and pain, MS/Extremity: Negative for injury and deformity, Skin: Negative for injury, rash, and discoloration, Neuro: Negative for headache, numbness, tingling, and seizure. Exam: 09:36 Constitutional: Disheveled patient, no acute distress, pants and hair with mud. rn Head/Face: Normocephalic, atraumatic. Eyes: Pupils equal round and reactive to light, extra-ocular motions intact. ENT: dry MM Neck: No midline tenderness Cardiovascular: Regular rhythm, tachycardic. No pulse deficits. Respiratory: No increased work of breathing, no retractions or nasal flaring. Abdomen/GI: soft, non-tender Skin: Warm, dry, no open wounds MS/ Extremity: Pulses equal, no cyanosis. Neuro: Awake and alert, GCS 15, oriented to person, place, and situation. Cranial nerves II-XII grossly intact. Motor strength 5/5 in all extremities. Sensory grossly intact. Cerebellar exam normal. Vital Signs: 09:27 BP 138 / 95; Pulse 113; Resp 18 S; Temp 97.6(O); Pulse Ox 99% on R/A; Weight 65.77 kg aa5 (R); Height 5 ft. 9 in. (175.26 cm) (R); Pain 0/10; 11:11 BP 135 / 93; Pulse 106; Resp 17; Pulse Ox 100% on R/A; Pain 0/10; ll1 09:27 Body Mass Index 21.41 (65.77 kg, 175.26 cm) aa5 MDM: 09:28 Patient medically screened. rn 10:58 Differential Diagnosis: electrolyte abnormality, hypoglycemia, volume depletion. Data rn reviewed: vital signs, nurses notes, and as a result, I will continue to observe the patient. Counseling: I had a detailed discussion with the patient and/or guardian regarding: the historical points, exam findings, and any diagnostic results supporting the discharge/admit diagnosis, lab results. Response to treatment: the patient's condition has returned to base line, the patient is now symptom free. Refusal of service: The patient/guardian displays adequate decision making capability and despite a detailed discussion of alternatives, benefits, risks, and consequences refuses: Medications. ED course: Pt refuses potassium here, refuses to eat or take oral glucose, given steroids in IV to help stabilize or increase glucose, demands discharge, has someone here to pick him up. . 10/17 09:36 Order name: BMP; Complete Time: 10:25 rn 10/17 09:36 Order name: Magnesium; Complete Time: 10:25 rn 10/17 09:36 Order name: CBC with Diff; Complete Time: 10:25 rn 10/17 09:45 Order name: Glucose, Ancillary Testing; Complete Time: 10:25 EDMS 10/17 10:45 Order name: Glucose, Ancillary Testing; Complete Time: 10:50 EDMS 10/17 09:29 Order name: Diet Regular; Complete Time: 09:29 aa5 10/17 09:36 Order name: IV Start; Complete Time: 09:49 rn 10/17 09:36 Order name: EKG; Complete Time: 09:37 rn 10/17 09:36 Order name: EKG - Nurse/Tech; Complete Time: 09:48 rn 10/17 09:36 Order name: PO challenge; Complete Time: 09:48 rn Administered Medications: 09:55 Drug: NS 0.9% 1000 ml Route: IV; Rate: 1000 ml; Site: left forearm; aa5 10:50 Follow up: IV Status: Completed infusion rb3 10:04 Drug: SOLU-Medrol (methylPrednisoLONE) 125 mg Route: IVP; Site: left antecubital; rb3 10:30 Follow up: Response: No adverse reaction rb3 11:13 Not Given (Patient Refused; Provider notified): Potassium Chloride 10 mEq IV at rb3 calculated rate once; administer over 1-2 hours Point of Care Testing: Blood Glucose: 09:30 Blood Glucose: 152 mg/dL; aa5 10:33 Blood Glucose: 114 mg/dL; rb3 Ranges: Critical Glucose Levels:Adult <50 mg/dl or >400 mg/dl <40 mg/dl or >180 mg/dl Disposition: 10/17/20 10:59 Discharged to Home. Impression: Hypoglycemia, unspecified, Hypokalemia, Dehydration. - Condition is Stable. - Discharge Instructions: Dehydration, Adult, Hypoglycemia, Blood Glucose Monitoring, Adult. - Medication Reconciliation Form, Thank You Letter, Antibiotic Education, Prescription Opioid Use form. - Follow up: Private Physician; When: As needed; Reason: Recheck today's complaints, Re-evaluation by your physician. - Problem is new. - Symptoms have improved. Signatures: Dispatcher [employer] EDMS Frankie Wick MD MD rn Calderon, Audri RN RN aa5 Weston Ko RN RN ll1 Monae Oliver RN RN rb3 Corrections: (The following items were deleted from the chart) 11:13 10:59 10/17/2020 10:59 Discharged to Home. Impression: Hypoglycemia, unspecified; ll1 Hypokalemia; Dehydration. Condition is Stable. Forms are Medication Reconciliation Form, Thank You Letter, Antibiotic Education, Prescription Opioid Use. Follow up: Private Physician; When: As needed; Reason: Recheck today's complaints, Re-evaluation by your physician. Problem is new. Symptoms have improved. rn
[2020-10-17 11:46] VITALS: TEMP 97.6
[2020-10-17 11:48] VITALS: BP 135/93; O2SAT 100
== END 2020-10-17 11:13 | disposition home or self-care (01) ==
LOC: ER 09:24
DX: E11.649 Type 2 diabetes mellitus with hypoglycemia without coma (principal); E86.0 Dehydration; E87.6 Hypokalemia; F17.210 Nicotine dependence, cigarettes, uncomplicated; Z88.5 Allergy status to narcotic agent
CPT/HCPCS: 36415; 80048; 82947; 83735; 85025; 93005; 96361; 96374; 99284; J2930; J7030

== ENCOUNTER 2020-10-25 01:38 | Emergency (ER) | payer SELFPAY ==
--- OUTSIDE RECORDS SUMMARY | 2020-10-25 01:43 | XMS REPORT | Continuity of Care Document ---
:[address] [facility] t Address [address] [place] [address] Care Team Providers Name Role Phone Erin [...] steremia 0-08 [facility] - 00:00: Medical 00 [place] Thyroid Thyroid Disease Active 2017-[address] [facility] [...] Date Quantity Comments Source Sex Assigned At [facility] Tobacco use and 2018-02-13 2018-02-13 Current user [facility] - exposure 00:00:00 00:00:00 [facility] Center Smoking Status Start Date Stop Date Source Current every day smoker 2018-02-13 00:00:00 [facility] Medications Ordered Filled Start Stop Current Ordering [...] Source Name Name Influenza Four-QIV 2018-02-13 Completed [facility] Non-PF 5+ YR 00:00:00 Medical Cent er Procedures This patient has no known procedures. Plan of Care Planned Activity Planned Date Details Comments Source Future Scheduled 2021-02-[address] [facility] - Test 00:00:00 (procedure) [code = Medical Center 65007555] Future Scheduled 2021-01-[address] [facility] - Test 00:00:00 (Season Ended) [code = Medic al Center INFLUENZA VACCINE (Season Ended)] Future Scheduled 2020-05-[address] [facility] - Test 00:00:00 (12+) [code = Medical Center DEPRESSION SCREENING (12+)] Future Scheduled 2018-08-[address] [facility] - Test 00:00:00 measurement Medical Center (procedure) [code = 26377245] Future Scheduled 1993 DTAP/TDAP/TD VACCINES [facility] - Test 00:00:00 (1 - Tdap) [code = Medical C enter DTAP/TDAP/TD VACCINES (1 - Tdap)] Future Scheduled 1992-01-26 HEPATITIS C SCREENING [facility] - Test 00:00:00 [code = HEPATITIS C Medical Center SCREENING] Future Scheduled 1986 COVID-19 VACCINE (1) [facility] - Test 00:00:00 [code = COVID-[address] VACCINE (1)] Future Scheduled 1984-01-26 DIABETIC EYE EXAM [facility] - Test 00:00:00 [code = DIABETIC EYE Medical Center EXAM] Future Scheduled 1984-01-[address] [facility] - Test 00:00:00 examination Medical Center (regime/therapy) [code = 175556685] Future Scheduled 1984-01-26 Urine screening for [facility] - Test 00:00:00 protein (procedure) Medical Center [code = 106913247] Future Scheduled 1980-01-[address] [facility] - Test 00:00:00 0-64 YRS (1 of 1 - Medical C enter PPSV23) [code = PNEUMOCOCCAL VACCINE 0-64 YRS (1 of 1 - PPSV23)] Future Scheduled [address] [facility] - Test 00:00:00 malignant neoplasm of [facility] colon (procedure) [code = 616517092] Encounters Start End Encounter Admission Attending Care Care Encounter Source Date/Time Date/Time Type Type Clinicians Facility Department ID 2020-08-17 2020-08-17 Office FRANCOIS Casper [id number] 15:25:16 16:33:28 Visit [facility] [id number] Surgical [id number] Special [id number] 198 [employer] Results Test Description Test Time Test Comments Results Result Comments Source BLOOD CULTURE 2018-02-17 06:00:00 Test Item Value Reference Range Interpretation Comme nts CULTURE (GLORIA) (test code = 1095) No growth in 5 days URINE [id number] 10:25:00 Test Item Value Reference Range Interpretation Comments CULTURE ([place]) (test code = 1095) No growth POCT-GLUCOSE [id number] 17:10:00 Test Item Value Reference Range Interpretation Comments POC-GLUCOSE METER 232 mg/dL 70-110 H TESTED AT [facility] 67[address] ([place]) (test code = [place] 1538) [address] CT, CTANGIO [id number] 16:41:00CTV pleaseFINAL REPORT CTV brain 02/13/2018 4:35 [...] effect.2. Unremarkable intracranial CTV.3. Sinusitis. Signed: Blaise Pizarroort Verified Date/Time: 02/13/2018 16:41:24 Reading Location: [facility] Radiology Reading Room POCT-GLUCOSE [id number] 13:07:00 Test Item Value Reference Range Interpretation Comments POC-GLUCOSE METER 311 mg/dL 70-110 H Notified R Ivonne MD/TESTED (BEAKER) (test code = AT [address]) [place] [address] 0 IRON, TIBC, % SAT. (WITHOUT FERRITIN)2018-02-13 10:10:00 Test Item Value Reference Range Interpretation Comments IRON (BEAKER) (test code = 547) 49 ug/dL 40-160 TOTAL IRON BINDING CAPACITY 231 ug/dL 250-450 L (BEAKER) (test code = 769) IRON % SATURATION (2) (BEAKER) 21 % 20-55 (test code = 2590) POCT-GLUCOSE [id number] 08:50:00 Test Item Value Reference Range Interpretation Comments POC-GLUCOSE METER 348 mg/dL 70-110 H Notified R Ivonne MD/TESTED (BEAKER) (test code = AT [address] 15[address]) [place] [address] 0 BASIC METABOLIC [id number] 08:31:00 Test Item Value Reference Range Interpretation [...] NOT APPLICABLE FOR DIALYSIS PATIEN TS. LIPID [id number] 08:31:00 Test Item Value Reference Range Interpretation [...] 130-159 High 160-189 Very High >=190IMMATURE RETICULOCYTE [id number] 08:16:00 Test Item Value Reference Range Interpretation Comments IMMATURE RETIC FRACTION (BEAKER) 8.600 % 2.300-13.400 (test code = 1447) RETICULOCYTE COUNT PCT (BEAKER) (test 1.4 % 0.5-1.8 code = 575) CBC W/PLT COUNT & AUTO [id number] 08:16:00 Test Item Value Reference Range Interpretation [...] PERCENT (BEAKER) (test code = 2801) POCT-GLUCOSE [id number] 21:18:00 Test Item Value Reference Range Interpretation Comments POC-GLUCOSE METER 226 mg/dL 70-110 H TESTED AT [facility] 6720 ([facility] (test code = [facility] 1538) [id number] MR, BRAIN, WITHOUT [id number] 19:43:00FINAL REPORT MRI brain without contrast INDICATION: [...] thrombus cannot be excluded. The major proximal nondalton of Mendoza flow voids are maintained. Mild [...] MDReport Verified Date/Time: 02/12/2018 19:43:32 Reading Location: [facility] Radiology Reading Room POCT-GLUCOSE [id number] 19:01:00 Test Item Value Reference Range Interpretation Comments POC-GLUCOSE METER 362 mg/dL 70-110 H TESTED AT [place] [address] ([facility]) (test code = [place] 1538) [address] EEG AWAKE AND [id number] 17:46:00Reason for exam:->SeizureShould this be performed at the bedside?->YesCH[facility] EEG REPORTDATE OF TEST: [id number] OF REPORT: [id number]: [id number]: [id number] time: 14:04Stop time: 14:24ICD-10: R56.9CPT Code: [id number]: 40 y old 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, [...] report.Queenie Paiz MD, PhDClinical Neurophysiology/Epilepsy AttendingCHI [facility] POCT- GLUCOSE [id number] 15:33:00 Test Item Value Reference Range Interpretation Comments POC-GLUCOSE METER 213 mg/dL 70-110 H TESTED AT [place] [address] ([facility]) (test code = [place] 1538) [address] TSH/FREE T4 IF [id number] 09:35:00 Test Item Value Reference Range Interpretation Comments THYROID STIMULATING HORMONE 4.03 uIU/mL 0.35-4.94 ([facility]) (test code = 772) HEMOGLOBIN [id number] 08:47:00 Test Item Value Reference Range Interpretation Comments HEMOGLOBIN A1C ([facility]) (test code = 6.5 % 4.3-6.1 H 368) POCT-GLUCOSE [id number] 07:55:00 Test Item Value Reference Range Interpretation Comments POC-GLUCOSE METER 219 mg/dL 70-110 H TESTED AT [facility] 6720 (BEAKER) (test code = [place] 1538) [address] [id number] 05:00:00 Test Item Value Reference Range Interpretation Comments MAGNESIUM (BEAKER) (test code = 2.1 mg/dL 1.6-2.6 627) BASIC METABOLIC [id number] 05:00:00 Test Item Value Reference Range Interpretation [...] PATIEN TS. CBC W/PLT COUNT & AUTO [id number] 04:40:00 Test Item Value Reference Range Interpretation [...] PERCENT (BEAKER) (test code = 2801) POCT-GLUCOSE [id number] 04:31:00 Test Item Value Reference Range Interpretation Comments POC-GLUCOSE METER 183 mg/dL 70-110 H TESTED AT [facility] 67[address] (BEAKER) (test code = [facility] Servin [facility] 1538) [address] RAD, ABDOMEN/KUB, 1 VIEW [id number] 01:33:00Reason for exam:->Abdominal distension, obtundationFINAL REPORT CLINICAL [...] calcification in the pelvis. Signed: Wilfredo De Leoneport Verified Date/Time: 02/12/2018 01:33:19 Reading Location: [address] Transitional Reading Room -GLUCOSE [id number] 00:49:00 Test Item Value Reference Range Interpretation Comments POC-GLUCOSE METER 346 mg/dL 70-110 H TESTED AT [facility] [address] (BEAKER) (test code = [place] Servin [place] 1538) [address] CBC W/PLT COUNT & AUTO [id number] 00:44:00 Test Item Value Reference Range Interpretation [...] (test code = 2801) RAPID DRUG SCREEN, [id number] 00:35:00 Test Item Value Reference Range Interpretation [...] situations. Chain of custody not maintained. Some pdep-hfn-mddexdd medications, as well as adulterants, may cause inaccurate results. Clinical correlation should be applied. A more comprehensive drug screen or confirmation of a detected drug may be performed upon request. TROPONIN [id number] 00:15:00 Test Item Value Reference Range Interpretation [...] acute neurological disease, and persistent tachyarrhythmia.COMPREHENSIVE METABOLIC [id number] 00:09:00 Test Item Value Reference Range Interpretation [...] APPLICABLE FOR DIALYSIS PATIEN TS. URINALYSIS W/ [id number] 00:06:00 Test Item Value Reference Range Interpretation [...] = 2795) RAD, CHEST, 1 VIEW, NON [id number] 23:11:00Reason for exam:->Obtundation with coarse respirations, baselineShould [...] the gastric lumen. Signed: JR Lozano Robert COXHEALTHeport Verified Date/Time: 02/11/2018 23:11:04 Reading Location: [address] Room
--- NOTE | 2020-10-25 02:19 | ER ---
Nurse's Notes [facility] Name: Surjit Stubbs Age: 45 yrs Sex: Male : 1975 Arrival Date: 10/25/2020 Time: 01:43 Bed 3 Private MD: Diagnosis: Presentation: 10/25 02:07 Chief complaint: Patient states: here for legal blood draw, states he is having a em "diabetic episode," BGL in triage HIGH, pt does not want any blood work. Coronavirus screen: Client denies travel out of the [place] in the last 14 days. Ebola Screen: Patient negative for fever greater than or equal to 101.5 degrees Fahrenheit, and additional compatible Ebola Virus Disease symptoms Patient denies exposure to infectious person. Patient denies travel to an Ebola-affected area in the 21 days before illness onset. No symptoms or risks identified at this time. Initial Sepsis Screen: Does the patient meet any 2 criteria? HR > 90 bpm. No. Patient's initial sepsis screen is negative. Does the patient have a suspected source of infection? No. Patient's initial sepsis screen is negative. Risk Assessment: Do you want to hurt yourself or someone else? Patient reports no desire to harm self or others. Onset of symptoms was October 25, 2020. 02:07 Method Of Arrival: Ambulatory em 02:07 Acuity: TOI 3 em Historical: - Allergies: 02:09 tramadol; em - PMHx: 02:09 Diabetes - IDDM; High Cholesterol; Hypothyroidism; neuropathy; Seizures; em - Immunization history:: Adult Immunizations up to date. - Social history:: Smoking status: unknown. Assessment: 02:10 General: Appears in no apparent distress. Behavior is agitated, Patient using profanity lp1 and slurs toward vice squad police officer and staff. Neuro: Level of Consciousness is awake, alert, obeys commands, Oriented to person, place, situation. Respiratory: Respiratory effort is even. Derm: Skin is intact, Skin is dry, Skin is normal. 02:12 Reassessment: Patient states "Yall aren't taking no blood from me, I just need some lp1 insulin"; attempted to educate patient on plan of care, patient refusing. Reassessment: Provider notified. 02:15 Reassessment: Patient ambulated out of ED, escorted by RAHEEM Cloth Finishing Range Operator Chief. lp1 Vital Signs: 02:07 BP 130 / 74; Pulse 107; Resp 18; Temp 97.8; Pulse Ox 99% on R/A; em 02:07 pt would not hold still for BP em ED Course: 01:43 Patient arrived in ED. am4 02:08 Triage completed. em 02:09 Arm band placed on. em 02:17 Leonor Sevilla, RN is Primary Nurse. lp1 Administered Medications: No medications were administered Outcome: 02:14 Eloped from patient exam room. lp1 02:14 Condition: stable 02:14 Discharge instructions given to police, Instructed on returning for further care 02:19 Patient left the ED. lp1 Signatures: Rubens Sanchez RN MELANIE Leonor Sevilla, RN RN lp1 Tierra Yeboah am4 Corrections: (The following items were deleted from the chart) 02:18 02:14 AMA Other Patient refused to sign AMA form lp1 lp1
[2020-10-25 02:23] VITALS: BP 130/74; TEMP 97.8; O2SAT 99
== END 2020-10-25 02:19 | disposition left against medical advice (07) ==
LOC: ER 01:38
DX: Z53.21 Procedure and treatment not carried out due to patient leaving prior to being seen by health care provider (principal)
CPT/HCPCS: 82947; 99281

== ENCOUNTER 2020-11-04 12:17 | Emergency (ER) | payer SELFPAY ==
--- OUTSIDE RECORDS SUMMARY | 2020-11-04 12:20 | XMS REPORT | Continuity of Care Document ---
:1975 Author Organization [facility] t Address [address] [place] [address] Care Team Providers Name Role Phone Michael Attending Clinician Moy MUÑOZ Attending Clinician Cas MUÑOZ Attending Clinician Cindy MUÑOZ Attending Clinician Tremayne MUÑOZ, L Attending Clinician LEONID MANRIQUE Attending Clinician Unavailable Cindy MUÑOZ Admitting Clinician LEONID MANRIQUE Admitting Clinician Unavailable Problems Condition Condition Condition Status Onset Resolution Last Treating Co mments Source Name Details Category Date Date Treatment Clinician Date 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10 [facility] - lizbet somers 00:00: Medical malnutriti malnutriti 00 Ce nter on on Diabetes Diabetes Disease [facility] 2017[facility] Hyperchole Hyperchole Disease Active 2017-[address] steremia steremia 0-08 [facility] Thyroid Thyroid Disease Active 2017-[address] [facility] disease disease 0-08 [facility] Leukocytos Leukocytos Disease Active 2017-[address] is is 0-08 [facility] 00 [place] Anemia Anemia Disease Active 2017-[address] [facility] 0-08 [facility] 00:[facility] 00 [place] Provoked Provoked Disease Active 2017-[facility] seizure [facility] 00 [place] Acute Acute Disease Active 2017-[address] encephalop encephalop 0-[facility] - athy athy 00:00: Medical 00 [place] Hyperglyce Hyperglyce Disease Active 2017-[address] yvan yvan 0-08 [facility] Medical 00 [place] Convulsive Convulsive Disease Active 2017-[address] seizure seizure 0-07 [facility] - disorder disorder 00:00: Medica l with with 00 Center status status epilepticu epilepticu s s Allergies, Adverse Reactions, Alerts This patient has no known allergies or adverse reactions. Social History Social Habit Start Date Stop Date Quantity Comments Source Sex Assigned At [facility] Tobacco use and 2018-02-13 2018-02-13 Current user [facility] - exposure 00:00:00 00:00:00 [facility] Smoking Status Start Date Stop Date Source Current every day smoker 2018-02-13 00:00:00 [facility] Medications Ordered Filled Start Stop Current Ordering [...] I St en-codeine 0-09 tablet by Andres Dominguez (TYLENOL 17:55: mouth Medical #4) 300-60 10 every 6 Center mg per (six) tablet hours as needed for Pain. Immunizations Ordered Immunization Filled Immunization Date Status Commen ts Source Name Name Marga Ware-QIV 2018-02-[address] [facility] - Non-PF 5+ YR 00:00:00 [facility] Cent er Procedures This patient has no known procedures. Plan of Care Planned Activity Planned Date Details Comments Source Future Scheduled 2021-02-[address] [facility] - Test 00:00:00 (procedure) [code = Medical Center 60862016] Future Scheduled 2021-01-[address] [facility] - Test 00:00:00 (Season Ended) [code = Medic al Center INFLUENZA VACCINE (Season Ended)] Future Scheduled 2020-05-[address] [facility] - Test 00:00:00 (12+) [code = Medical Center DEPRESSION SCREENING (12+)] Future Scheduled 2018-08-[address] [facility] - Test 00:00:00 measurement Medical Center (procedure) [code = 18152526] Future Scheduled 1993 DTAP/TDAP/TD VACCINES CH I [...] 00:00:00 examination Medical Center (regime/therapy) [code = 858134584] Future Scheduled 1984-01-26 Urine screening for [facility] - Test 00:00:00 protein (procedure) Medical Center [code = 038649353] Future Scheduled 1980-01-[address] [facility] - Test 00:00:00 0-64 YRS (1 of 1 - Medical C enter PPSV23) [code = PNEUMOCOCCAL VACCINE 0-64 YRS (1 of 1 - PPSV23)] Future Scheduled [address] [facility] - Test 00:00:00 malignant neoplasm of Medica l Center colon (procedure) [code = 659824250] Encounters Start End Encounter Admission Attending Care Care Encounter Source Date/Time Date/Time Type Type Clinicians Facility Department ID 2020-10-27 2020-10-27 Transition Ben Rodriguez [id number] 00:00:00 00:00:00 of Care Patricia Villanueva [id number] [place] [id number] 2020-10-25 2020-10-26 [facility] Akira Winter [facility] [id number] 16:12:00 18:10:00 Encounter Ryan Cardozo [id number] Trey White [id number] [place] [id number] 2020-08-17 2020-08-17 Office Tremayne [facility] [id number] 15:25:16 16:33:28 Visit [facility] [id number] Surgical [id number] [facility] [id number] es [address] [place] Results Test Description Test Time Test Comments Results Result Comments Source BLOOD CULTURE 2018-02-17 06:00:00 Test Item Value Reference Range Interpretation Comme nts CULTURE ([place]) (test code = 1095) No growth in 5 days URINE [id number] 10:25:00 Test Item Value Reference Range Interpretation Comments CULTURE ([place]) (test code = 1095) No growth POCT-GLUCOSE [id number] 17:10:00 Test Item Value Reference Range Interpretation Comments POC-GLUCOSE METER 232 mg/dL 70-110 H TESTED AT [facility] 67[address] ([place]) (test code = [place] 1538) [address] CT, CTANGIO [id number] 16:41:00CTV pleaseFINAL REPORT [facility] brain 02/13/2018 4:35 PM CLINICAL INDICATION: Stroke [...] Sky Verified Date/Time: 02/13/2018 16:41:24 Reading Location: [facility] Radiology Reading Room POCT-GLUCOSE [id number] 13:07:00 Test Item Value Reference Range Interpretation Comments POC-GLUCOSE METER 311 mg/dL 70-110 H Notified Gareth Coronado MD/TESTED ([place]) (test code = AT [facility] [address] [facility] 1538) [facility] 7703 0 IRON, TIBC, % SAT. (WITHOUT FERRITIN)2018-02-13 10:10:00 Test Item Value Reference Range Interpretation Comments IRON (BEAKER) (test code = 547) 49 ug/dL 40-160 TOTAL IRON BINDING CAPACITY 231 ug/dL 250-450 L (BEAKER) (test code = 769) IRON % SATURATION (2) (BEAKER) 21 % 20-55 (test code = 2590) POCT-GLUCOSE [id number] 08:50:00 Test Item Value Reference Range Interpretation Comments POC-GLUCOSE METER 348 mg/dL 70-110 H Notified Gareth Coronado MD/TESTED ([facility]) (test code = AT [place] [id number] [facility] 1538) [facility] 7703 0 BASIC METABOLIC [id number] 08:31:00 Test Item Value Reference Range Interpretation [...] NOT APPLICABLE FOR DIALYSIS PATIEN TS. LIPID [id number] 08:31:00 Test Item Value Reference Range Interpretation [...] 130-159 High 160-189 Very High >=190IMMATURE RETICULOCYTE [id number] 08:16:00 Test Item Value Reference Range Interpretation Comments IMMATURE RETIC FRACTION (BEAKER) 8.600 % 2.300-13.400 (test code = 1447) RETICULOCYTE COUNT PCT (BEAKER) (test 1.4 % 0.5-1.8 code = 575) CBC W/PLT COUNT & AUTO [id number] 08:16:00 Test Item Value Reference Range Interpretation [...] PERCENT (BEAKER) (test code = 2801) POCT-GLUCOSE [id number] 21:18:00 Test Item Value Reference Range Interpretation Comments POC-GLUCOSE METER 226 mg/dL 70-110 H TESTED AT [facility] 67[address] ([place]) (test code = [place] 1538) [id number] MR, BRAIN, WITHOUT [id number] 19:43:00FINAL REPORT MRI brain without contrast INDICATION: [...] thrombus cannot be excluded. The major proximal [place] flow voids are maintained. Mild [...] Gregory Verified Date/Time: 02/12/2018 19:43:32 [facility] [place] POCT-GLUCOSE [id number] 19:01:00 Test Item Value Reference Range Interpretation Comments POC-GLUCOSE METER 362 mg/dL 70-110 H TESTED AT [facility] 67[address] ([place]) (test code = [place] 1538) [address] EEG AWAKE AND [id number] 17:46:00Reason for exam:->SeizureShould this be performed at the bedside?->[facility] EEG REPORTDATE OF TEST: [id number] OF REPORT: [id number]: [id number]: [id number] time: 14:04Stop time: 14:24ICD-10: R56.9CPT Code: 11098UFMHJHV: 40 y old 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, [...] this report.Queenie Loco MD, PhDClinical Neurophysiology/Epilepsy AttendingCHI [facility] POCT- GLUCOSE [id number] 15:33:00 Test Item Value Reference Range Interpretation Comments POC-GLUCOSE METER 213 mg/dL 70-110 H TESTED AT [facility] 67 (BEAKER) (test code = C[place] Servin [place] 1538) [id number] TSH/FREE T4 IF [id number] 09:35:00 Test Item Value Reference Range Interpretation Comments THYROID STIMULATING HORMONE 4.03 uIU/mL 0.35-4.94 (BEAKER) (test code = 772) HEMOGLOBIN [id number] 08:47:00 Test Item Value Reference Range Interpretation Comments HEMOGLOBIN A1C (BEAKER) (test code = 6.5 % 4.3-6.1 H 368) POCT-GLUCOSE [id number] 07:55:00 Test Item Value Reference Range Interpretation Comments POC-GLUCOSE METER 219 mg/dL 70-110 H TESTED AT [facility] 67[address] (BEAKER) (test code = [place] Servin [place] 1538) [id number] 05:00:00 Test Item Value Reference Range Interpretation Comments MAGNESIUM (BEAKER) (test code = 2.1 mg/dL 1.6-2.6 627) BASIC METABOLIC [id number] 05:00:00 Test Item Value Reference Range Interpretation [...] PATIEN TS. CBC W/PLT COUNT & AUTO [id number] 04:40:00 Test Item Value Reference Range Interpretation [...] PERCENT (BEAKER) (test code = 2801) POCT-GLUCOSE [id number] 04:31:00 Test Item Value Reference Range Interpretation Comments POC-GLUCOSE METER 183 mg/dL 70-110 H TESTED AT [place] [address] ([facility]) (test code = CESAR Servin [facility] 1538) [address] RAD, ABDOMEN/KUB, 1 VIEW [id number] 01:33:00Reason for exam:->Abdominal distension, obtundationFINAL REPORT CLINICAL [...] in the pelvis. Signed: Wilfredo De Leon [facility] Verified Date/Time: 02/12/2018 01:33:19 Reading Location: [address] Reading Room -GLUCOSE [id number] 00:49:00 Test Item Value Reference Range Interpretation Comments POC-GLUCOSE METER 346 mg/dL 70-110 H TESTED AT [facility] [address] ([facility]) (test code = CESAR Servin [facility] 1538) [address] CBC W/PLT COUNT & AUTO [id number] 00:44:00 Test Item Value Reference Range Interpretation [...] (test code = 2801) RAPID DRUG SCREEN, [id number] 00:35:00 Test Item Value Reference Range Interpretation [...] situations. Chain of custody not maintained. Some vizw-iza-soyyuyf medications, as well as adulterants, may cause inaccurate results. Clinical correlation should be applied. A more comprehensive drug screen or confirmation of a detected drug may be performed upon request. TROPONIN [id number] 00:15:00 Test Item Value Reference Range Interpretation [...] acute neurological disease, and persistent tachyarrhythmia.COMPREHENSIVE METABOLIC [id number] 00:09:00 Test Item Value Reference Range Interpretation [...] APPLICABLE FOR DIALYSIS PATIEN TS. URINALYSIS W/ [id number] 00:06:00 Test Item Value Reference Range Interpretation [...] = 2795) RAD, CHEST, 1 VIEW, NON [id number] 23:11:00Reason for exam:->Obtundation with coarse respirations, baselineShould this be performed at [facility]?->YesFINAL REPORT RAD, CHEST, 1 VIEW, NON DEPT INDICATION: Obtundation with coarserespirations, baseline COMPARISON: None. FINDINGS: Portable frontal view of the chest. IMPRESSION: Support Lines: None. Lungs and pleura: Clear lungs. No pneumothorax.Heart and mediastinum: Unremarka ble. Additional findings: Fluid and gaseous distention of the gastric lumen. Signed: JR Lozano Robert MDReport Verified Date/Time: 02/11/2018 23:11:04 Reading Location: [address] Room
[2020-11-04] MEDS ORDERED: D50W 25 GM/50 ML SYRINGE IV ONE (12:53)
--- NOTE | 2020-11-04 12:56 | ER ---
Nurse's Notes [facility] Name: Surjit Stubbs Age: 45 yrs Sex: Male : 1975 Arrival Date: 11/04/2020 Time: 12:18 Bed 7 Private MD: Diagnosis: Presentation: 11/04 12:18 Chief complaint: EMS states: family called for pt being unresponsive. Upon EMS arrival aa5 FSBG read low, pt was given 250mls bolus of D10 and repeat FSBG was 104. Pt now A\\T\\O X 4. 12:18 Coronavirus screen: At this time, the client does not indicate any symptoms associated aa5 with coronavirus-19. Ebola Screen: Patient negative for fever greater than or equal to 101.5 degrees Fahrenheit, and additional compatible Ebola Virus Disease symptoms. Initial Sepsis Screen: Does the patient meet any 2 criteria? No. Patient's initial sepsis screen is negative. Does the patient have a suspected source of infection? No. Patient's initial sepsis screen is negative. Risk Assessment: Do you want to hurt yourself or someone else? Patient reports no desire to harm self or others. Onset of symptoms was October 2020. 12:18 Acuity: TOI 2 aa5 12:18 Method Of Arrival: EMS: [facility] aa5 12:18 Care prior to arrival: IV initiated. 20 GA, in the left hand. aa5 Historical: - Allergies: 12:18 tramadol; aa5 - PMHx: 12:18 Diabetes - IDDM; High Cholesterol; Hypothyroidism; neuropathy; Seizures; aa5 - Immunization history:: Adult Immunizations unknown. - Social history:: Smoking status: Patient reports the use of cigarette tobacco products. Screenin:30 Abuse screen: Denies threats or abuse. Nutritional screening: No deficits noted. aa5 Tuberculosis screening: No symptoms or risk factors identified. Fall Risk Fall in past 12 months (25 points). IV access (20 points). Total Beck Fall Scale indicates High Risk Score (45 or more points). Fall prevention measures have been instituted. Side Rails Up X 2 Placed Close to Nursing Station. Assessment: 12:18 General: Appears comfortable, Behavior is calm, cooperative. Pain: Denies pain. Neuro: aa5 Level of Consciousness is awake, alert, obeys commands, Oriented to person, place, time, situation. Cardiovascular: Heart tones S1 S2 present Rhythm is regular. Respiratory: Airway is patent Respiratory effort is even, unlabored, Respiratory pattern is regular, symmetrical. GI: Abdomen is flat, non-distended, Abd is soft and non tender X 4 quads. : No signs and/or symptoms were reported regarding the genitourinary system. EENT: No signs and/or symptoms were reported regarding the EENT system. Derm: Skin is pink, warm \\T\\ dry. Musculoskeletal: Range of motion: intact in all extremities. 12:25 Reassessment: FURNITURE SPRAYER at bedside. . aa5 12:35 Reassessment: Pt refusing blood draw and any further testing, pt states he wants to aa5 leave hospital now. Requesting for me to call emergency contact to come and pick him up. FURNITURE SPRAYER was notified. . 12:35 Reassessment: Patient is alert, oriented x 3, equal unlabored respirations, skin aa5 warm/dry/pink. 12:45 Reassessment: Patient is alert, oriented x 3, equal unlabored respirations, skin aa5 warm/dry/pink. Pt notified of risks leaving AMA, pt also refused to eat anything in ER. Pt states "I just need to leave now, I do not need any of this" . 12:56 Reassessment: Patient is alert, oriented x 3, equal unlabored respirations, skin aa5 warm/dry/pink. Vital Signs: 12:18 BP 156 / 118; Pulse 85; Resp 16 S; Temp 97.0(TE); Pulse Ox 100% on R/A; Pain 0/10; aa5 ED Course: 12:18 Patient arrived in ED. aa5 12:18 Arm band placed on Patient placed in an exam room, on a stretcher. aa5 12:18 Patient has correct armband on for positive identification. Placed in gown. Bed in low aa5 position. Call light in reach. Side rails up X2. residential monitor on. Pulse ox on. NIBP on. 12:20 Shasta Read, MELANIE is Primary Nurse. aa5 12:23 Kaylee Acosta FNP-C is PHCP. kb 12:23 Reno Lazaro MD is Attending Physician. kb 12:23 Triage completed. aa5 12:55 No provider procedures requiring assistance completed. IV discontinued, intact, aa5 bleeding controlled, No redness/swelling at site. Pressure dressing applied. Administered Medications: 12:32 Drug: D50W 50 ml Route: IVP; Site: left hand; aa5 12:45 Follow up: FSBG increased aa5 Point of Care Testing: Blood Glucose: 12:29 Blood Glucose: 43 mg/dL; aa5 12:45 Blood Glucose: 163 mg/dL; aa5 Ranges: Intake: Outcome: 12:55 AMA AMA form signed aa5 :55 Condition: stable 12:56 Patient left the ED. aa5 Signatures: Kaylee Acosta FNP-C FNP-Shasta Piper RN RN aa5 Corrections: (The following items were deleted from the chart) 17:25 12:57 Patient left the ED. aa5 aa5
--- NOTE | 2020-11-04 12:57 | EDPHYS ---
Physician Documentation [facility] Name: Surjit Stubbs Age: 45 yrs Sex: Male : 1975 Arrival Date: 11/04/2020 Time: 12:18 Bed 7 Private MD: ED Physician Reno Lazaro HPI: 11/04 14:06 This 45 yrs old Male presents to ER via EMS with complaints of low blood kb sugar. 14:06 The patient or guardian reports hypoglycemia, that was potentially precipitated by no kb particular event, with the patient's symptoms witnessed by family, Treatment prior to arrival includes: EMS d10. Onset: The symptoms/episode began/occurred just prior to arrival. Associated signs and symptoms: Pertinent positives: Current symptoms: In the emergency department the patient's symptoms have resolved, the patient is alert and fully oriented, has normal speech, has normal responsiveness, has no confusion. The patient has experienced similar episodes in the past, multiple times. The patient has not recently seen a physician. 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 EMS reports pt was unresponsive upon their arrival, BGL read low, D10 given through IV, BGL went up to 105, pt woke up and was oriented.. Historical: - Allergies: 12:18 tramadol; aa5 - PMHx: 12:18 Diabetes - IDDM; High Cholesterol; Hypothyroidism; neuropathy; Seizures; aa5 - Immunization history:: Adult Immunizations unknown. - Social history:: Smoking status: Patient reports the use of cigarette tobacco products. ROS: 14:04 Constitutional: Negative for fever, chills, and weight loss, Respiratory: Negative for kb shortness of breath, cough, wheezing, and pleuritic chest pain. 14:04 Neuro: Positive for syncope. 14:04 Endocrine: Positive for shaky and felt like sugar was low. 14:04 All other systems are negative. Exam: 14:04 Constitutional: This is a well developed, well nourished patient who is awake, alert, kb and in no acute distress. Head/Face: Normocephalic, atraumatic. ENT: Moist Mucous membranes Cardiovascular: Regular rate and rhythm with a normal S1 and S2. No gallops, murmurs, or rubs. No pulse deficits. Respiratory: Respirations even and unlabored. No increased work of breathing, no retractions or nasal flaring. Abdomen/GI: Soft, non-tender. No distention Skin: Warm, dry with normal turgor. Normal color. MS/ Extremity: Pulses equal, no cyanosis. Neurovascular intact. Full, normal range of motion. Neuro: Awake and alert, GCS 15, oriented to person, place, time, and situation. Moves all extremities. Normal gait. Psych: Awake, alert, with orientation to person, place and time. Behavior, mood, and affect are within normal limits. Vital Signs: 12:18 BP 156 / 118; Pulse 85; Resp 16 S; Temp 97.0(TE); Pulse Ox 100% on R/A; Pain 0/10; aa5 MDM: 12:23 Patient medically screened. kb 12:41 Data reviewed: vital signs, nurses notes. Data interpreted: Pulse oximetry: on room air kb is 100 %. Interpretation: normal. 14:04 Refusal of service: The patient/guardian displays adequate decision making capability kb and despite a detailed discussion of alternatives, benefits, risks, and consequences refuses: all lab tests. 14:05 ED course: Pt did not want to stay here any longer and left AMA. Pt was given food but kb refused to eat it. Risks of leaving discussed with pt. 11/04 12:20 Order name: Diet Regular; Complete Time: 12:21 aa5 11/04 12:30 Order name: IV Start; Complete Time: 12:36 kb 11/04 12:40 Order name: Glucose, Ancillary Testing; Complete Time: 12:41 EDMS Administered Medications: 12:32 Drug: D50W 50 ml Route: IVP; Site: left hand; aa5 12:45 Follow up: FSBG increased aa5 Point of Care Testing: Blood Glucose: 12:29 Blood Glucose: 43 mg/dL; aa5 12:45 Blood Glucose: 163 mg/dL; aa5 Ranges: Critical Glucose Levels:Adult <50 mg/dl or >400 mg/dl <40 mg/dl or >180 mg/dl Disposition: 11/05 08:38 Co-signature as Attending Physician, Reno Lazaro MD I agree with the assessment and kdr plan of care. Disposition Summary: 11/04/20 12:56 Left Against Medical Advice Location: Home aa5 Condition: Fair(11/04/20 12:57) aa5 Signatures: Dispatcher [employer] EDMS Kaylee Acosta, RICE CLEANING MACHINE TENDER-C RICE CLEANING MACHINE TENDER-Ckb Reno Lazaro MD MD kdr Shasta Read, RN RN aa5 Corrections: (The following items were deleted from the chart) 11/04 12:55 12:30 CBC+H.LAB.BRZ ordered. EDMS EDMS : 12:30 BASIC METABOLIC PANEL+C.LAB.BRZ ordered. EDMS EDMS 12:57 12:56 Stable aa5 aa5
[2020-11-04 13:00] VITALS: BP 156/118; TEMP 97; O2SAT 100
== END 2020-11-04 12:57 | disposition left against medical advice (07) ==
LOC: ER 12:17
DX: E11.649 Type 2 diabetes mellitus with hypoglycemia without coma (principal); F17.210 Nicotine dependence, cigarettes, uncomplicated; Z88.5 Allergy status to narcotic agent
CPT/HCPCS: 82947; 96374; 99284

== ENCOUNTER 2020-11-13 20:19 | Emergency (ER) | payer SELFPAY ==
--- OUTSIDE RECORDS SUMMARY | 2020-11-13 20:22 | XMS REPORT | Continuity of Care Document ---
:1975 Author Organization [facility] t Address [address] [place] [address] Care Team Providers Name Role Phone Michael [...] [facility] protein-ca 0-10 Le bee - lizbet somers 00:00: Medical malnutriti malnutriti [...] [facility] - 00[facility] Medical 00 [place] Provoked Provoked Disease Active 2017-05 [facility] Medical 00 [place] Acute Acute Disease Active 2017-[address] encephalop encephalop 0-08 [facility] - athy athy 00:00: Medical 00 [place] Hyperglyce Hyperglyce Disease Active 2017-[address] yvan yvan 0-08 [facility] - 00:[facility]: Medical 00 [place] Convulsive Convulsive Disease Active 2017-[address] seizure seizure 0-07 [facility] - disorder disorder 00:00: Medica l with with 00 Center status status epilepticu epilepticu s s Allergies, Adverse Reactions, Alerts This patient has no known allergies or adverse reactions. Social History Social Habit Start Date Stop Date Quantity Comments Source Sex Assigned At [facility] Tobacco use and 2018-02-13 2018-02-13 Current user [facility] - exposure 00:00:00 00:00:00 [facility] Smoking Status Start Date Stop Date Source Current every day smoker 2018-02-13 00:00:00 [facility] Medications Ordered Filled Start Stop Current [...] Status Commen ts Source Name Name Marga ManriquezQIVivian 2018-02-[address] [facility] - Non-PF 5+ YR 00:00:00 Medical Cent er Procedures This patient has no known procedures. Plan of Care Planned Activity Planned Date Details Comments Source Future Scheduled 2021-02-[address] [facility] - Test 00:00[facility]00 (procedure) [code = Medical Center 23258463] Future Scheduled 2021-01-[address] [facility] - Test 00:00:00 (Season Ended) [code = Medic al Center INFLUENZA VACCINE (Season Ended)] Future Scheduled 2020-05-[address] [facility] - Test 00:00:00 (12+) [code = Medical Center DEPRESSION SCREENING (12+)] Future Scheduled 2018-08-[address] [facility] - Test 00:[facility]:00 measurement Medical Center (procedure) [code = 55155938] Future Scheduled 1993 DTAP/TDAP/TD VACCINES CH I [...] 00:00:00 examination Medical Center (regime/therapy) [code = 086260793] Future Scheduled 1984-01-26 Urine screening for [facility] - Test 00:00:00 protein (procedure) Medical Center [code = 752656003] Future Scheduled 1980-01-[address] [facility] - Test 00:00:00 0-64 YRS (1 of 1 - Medical C enter PPSV23) [code = PNEUMOCOCCAL VACCINE 0-64 YRS (1 of 1 - PPSV23)] Future Scheduled [address] [facility] - Test 00:00:00 malignant neoplasm of Medica l Center colon (procedure) [code = 906150010] Encounters Start End Encounter Admission Attending Care Care Encounter Source Date/Time Date/Time Type Type Clinicians Facility Department ID 2020-10-27 2020-10-27 Transition Ben Rodriguez [id number] 00:00:00 00:00:00 of Care Patricia Villanueva [id number] [place] [id number] 2020-10-25 2020-10-26 [facility] Akira Winter [facility] [id number] 16:12:00 18:10:00 Encounter Ryan Cardozo [id number] Trey White [id number] [place] [id number] 2020-08-17 2020-08-17 [email or web address] [id number] 15:25:16 16:33:28 Visit [facility] [id number] Surgical [id number] [facility] [id number] es [address] [place] Results Test Description Test Time Test Comments Results Result Comments Source BLOOD CULTURE 2018-02-17 06:00:00 Test Item Value Reference Range Interpretation Comme nts CULTURE (Plat[place]) (test code = 1095) No growth in 5 days URINE [id number] 10:25:00 Test Item Value Reference Range Interpretation Comments CULTURE ([place]atiza) (test code = 1095) No growth POCT-GLUCOSE [id number] 17:10:00 Test Item Value Reference Range Interpretation Comments POC-GLUCOSE METER 232 mg/dL 70-[address] [facility] 67[address] ([place]) (test code = [place] 1538) [address] CT, CTANGIO [id number] 16:41:00CTV pleaseFINAL REPORT CTV brain 02/13/2018 4:35 [...] Sky Verified Date/Time: 02/13/2018 16:41:24 Reading Location: [facility] Radiology Reading Room POCT-GLUCOSE [id number] 13:07:00 Test Item Value Reference Range Interpretation Comments POC-GLUCOSE METER 311 mg/dL 70-110 H Notified Gareth Coronado MD/TESTED ([place]OR[place]) (test code = AT [facility] [address] [facility] 6680) [facility] 7703 0 IRON, TIBC, % SAT. (WITHOUT FERRITIN)2018-02-13 10:10:00 Test Item Value Reference Range Interpretation Comments IRON (BEAKER) (test code = 547) 49 ug/dL 40-160 TOTAL IRON BINDING CAPACITY 231 ug/dL 250-450 L (BEAKER) (test code = 769) IRON % SATURATION (2) (BEAKER) 21 % 20-55 (test code = 2590) POCT-GLUCOSE [id number] 08:50:00 Test Item Value Reference Range Interpretation Comments POC-GLUCOSE METER 348 mg/dL 70-110 H Notified Gareth Coronado MD/TESTED (BEAKER) (test code = AT [facility] [address] [facility] 1538) [facility] 7703 0 BASIC METABOLIC [id number] 08:31:00 Test Item Value Reference Range Interpretation [...] NOT APPLICABLE FOR DIALYSIS PATIEN TS. LIPID [id number] 08:31:00 Test Item Value Reference Range Interpretation [...] 130-159 High 160-189 Very High >=190IMMATURE RETICULOCYTE [id number] 08:16:00 Test Item Value Reference Range Interpretation Comments IMMATURE RETIC FRACTION (BEAKER) 8.600 % 2.300-13.400 (test code = 1447) RETICULOCYTE COUNT PCT (BEAKER) (test 1.4 % 0.5-1.8 code = 575) CBC W/PLT COUNT & AUTO [id number] 08:16:00 Test Item Value Reference Range Interpretation [...] PERCENT (BEAKER) (test code = 2801) POCT-GLUCOSE [id number] 21:18:00 Test Item Value Reference Range Interpretation Comments POC-GLUCOSE METER 226 mg/dL 70-[address] [facility] 67[address] ([place]ORIA) (test code = [place] 1538) [address] MR, BRAIN, WITHOUT [id number] 19:43:00FINAL REPORT MRI brain without contrast INDICATION: [...] Gregory Verified Date/Time: 02/12/2018 19:43:32 Reading [facility] Radiology Reading Room POCT-GLUCOSE [id number] 19:01:00 Test Item Value Reference Range Interpretation Comments POC-GLUCOSE METER 362 mg/dL 70-[address] [facility] 67[address] ([place]ORIA) (test code = [place] 1538) [address] EEG AWAKE AND [id number] 17:46:00Reason for exam:->SeizureShould this be performed at the bedside?->[facility] REPORTDATE OF TEST: [id number] OF REPORT: [id number]: [id number]: [id number] time: 14:04Stop time: 14:24ICD-10: R56.9CPT Code: 91622TOEWQWC: 40 y old 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, [...] this report.Queenie Loco MD, PhDClinical Neurophysiology/Epilepsy AttendingCHI [facility] POCT- GLUCOSE [id number] 15:33:00 Test Item Value Reference Range Interpretation Comments POC-GLUCOSE METER 213 mg/dL 70-[address] [facility] 67 (BEAKER) (test code = [facility] 1538) [address] TSH/FREE T4 IF [id number] 09:35:00 Test Item Value Reference Range Interpretation Comments THYROID STIMULATING HORMONE 4.03 uIU/mL 0.35-4.94 (BEAKER) (test code = 772) HEMOGLOBIN [id number] 08:47:00 Test Item Value Reference Range Interpretation Comments HEMOGLOBIN A1C (BEAKER) (test code = 6.5 % 4.3-6.1 H 368) POCT-GLUCOSE [id number] 07:55:00 Test Item Value Reference Range Interpretation Comments POC-GLUCOSE METER 219 mg/dL 70-110 H TESTED AT [place] [address] (BEAKER) (test code = [facility] 1538) [address] [id number] 05:00:00 Test Item Value Reference Range Interpretation Comments MAGNESIUM (BEAKER) (test code = 2.1 mg/dL 1.6-2.6 627) BASIC METABOLIC [id number] 05:00:00 Test Item Value Reference Range Interpretation [...] PATIEN TS. CBC W/PLT COUNT & AUTO [id number] 04:40:00 Test Item Value Reference Range Interpretation [...] PERCENT (BEAKER) (test code = 2801) POCT-GLUCOSE [id number] 04:31:00 Test Item Value Reference Range Interpretation Comments POC-GLUCOSE METER 183 mg/dL 70-110 H TESTED AT [place] [address] ([facility]) (test code = [facility] 1538) [address] RAD, ABDOMEN/KUB, 1 VIEW [id number] 01:33:00Reason for exam:->Abdominal distension, obtundationFINAL REPORT CLINICAL [...] in the pelvis. Signed: Wilfredo De Leon [facility] Verified Date/Time: 02/12/2018 01:33:19 Reading Location: [address] Reading Room -GLUCOSE [id number] 00:49:00 Test Item Value Reference Range Interpretation Comments POC-GLUCOSE METER 346 mg/dL 70-[address] [facility] 67 ([facility]) (test code = DARRYLKY Gareth [facility] 1538) [address] CBC W/PLT COUNT & AUTO [id number] 00:44:00 Test Item Value Reference Range Interpretation Comments WHITE BLOOD CELL COUNT ([facility]) 14.3 K/ L 3.5-10.5 H [...] (test code = 2801) RAPID DRUG SCREEN, [id number] 00:35:00 Test Item Value Reference Range Interpretation [...] situations. Chain of custody not maintained. Some hkmd-dli-aebvfjr medications, as well as adulterants, may cause inaccurate results. Clinical correlation should be applied. A more comprehensive drug screen or confirmation of a detected drug may be performed upon request. TROPONIN [id number] 00:15:00 Test Item Value Reference Range Interpretation [...] acute neurological disease, and persistent tachyarrhythmia.COMPREHENSIVE METABOLIC [id number] 00:09:00 Test Item Value Reference Range Interpretation [...] APPLICABLE FOR DIALYSIS PATIEN TS. URINALYSIS W/ [id number] 00:06:00 Test Item Value Reference Range Interpretation [...] = 2795) RAD, CHEST, 1 VIEW, NON [id number] 23:11:00Reason for exam:->Obtundation with coarse respirations, baselineShould [facility]?->YesFINAL REPORT RAD, CHEST, 1 VIEW, NON DEPT INDICATION: Obtundation with coarserespirations, baseline COMPARISON: None. FINDINGS: Portable frontal view of the chest. IMPRESSION: Support Lines: None. Lungs and pleura: Clear lungs. No pneumothorax.Heart and mediastinum: Unremarka ble. Additional findings: Fluid and gaseous distention of the gastric lumen. Signed: JR Lozano Robert MDReport Verified Date/Time: 02/11/2018 23:11:04 Reading Location: [address]
[2020-11-13 20:38] LABS: Absolute Lymphocytes (CBC) 1.8 K/uL (0.7-4.9); Basophils % 0.9 % (0-1.3); Hematocrit 38.1 % (39.6-49.0); Lymphocytes % 32.3 % (15.3-44.8); MPV 8.2 fL (7.6-11.3)
[2020-11-13 20:44] LABS: Protime INR 0.95
[2020-11-13 21:01] LABS: ALT/SGPT 35 U/L (12-78); Albumin 3.2 g/dL (3.4-5.0); Alkaline Phosphatase 108 U/L (45-117); BUN Blood Urea Nitrogen 8 mg/dL (7-18); Bicarbonate 24 mmol/L (21-32); Bilirubin Direct < 0.1 mg/dL (0-0.2); Bilirubin Total 0.3 mg/dL (0.2-1.0); Glucose Level 339 mg/dL (74-106); Protein, Total 7.2 g/dL (6.4-8.2); Sodium Level 140 mmol/L (136-145)
[2020-11-13 21:02] LABS: AST/SGOT 37 U/L (15-37); Potassium 4.6 mmol/L (3.5-5.1)
--- NOTE | 2020-11-13 21:19 | RAD REPORT ---
EXAM DESCRIPTION: CT - Head Brain Wo Cont - 11/13/2020 8:55 pm CLINICAL HISTORY: Seizure COMPARISON: 2019 TECHNIQUE: Computed axial tomography of the head was obtained. IV contrast was not requested. All CT scans are performed using dose optimization technique as appropriate and may include automated exposure control or mA/KV adjustment according to patient size. FINDINGS: An intracranial bleed is not seen . The ventricles are normal in caliber. No extra-axial fluid collection is noted. Fluid and mucoperiosteal thickening involves maxillary in the ethmoid sinuses. IMPRESSION: No acute intracranial abnormality is seen. If patient's symptoms persist MRI of the bra in would be recommended. Acute chronic sinusitis
[2020-11-13 22:30] LABS: Urine Blood Negative (Negative); Urine Glucose 2+ (Negative); Urine Protein Negative (Negative); Urine pH 5.5 (5.0-7.0)
[2020-11-13 22:52] LABS: Barbiturates NEGATIVE (NEGATIVE); Benzodiazepines NEGATIVE (NEGATIVE); Cocaine POSITIVE (NEGATIVE); METHAMPHETAM POSITIVE (NEGATIVE); Methadone NEGATIVE (NEGATIVE); Opiates NEGATIVE (NEGATIVE); Phencyclidine NEGATIVE (NEGATIVE); THC Cannibis NEGATIVE (NEGATIVE)
--- NOTE | 2020-11-14 00:02 | ER ---
Nurse's Notes [facility] Name: Surjit Stubbs Age: 45 yrs Sex: Male : 1975 Arrival Date: 11/13/2020 Time: 20:21 Bed 3 Private MD: Diagnosis: Seizure;Cocaine Abuse;Methamphetamine Abuse;Diabetes with Hyperglycemia Presentation: 11/13 20:21 Chief complaint: EMS states: called in from his fiancee, while driving patient became rr5 stiff and became in and out. history on diabetes BS 362 mg/Dl and history of seizure. O2 93-94% on Ra hooked Nasal cannula went up to 98%. Coronavirus screen: unable to complete. Ebola Screen: Unable to complete the Ebola screening because:. 20:21 Method Of Arrival: EMS: [facility] rr5 20:39 Initial Sepsis Screen: Does the patient meet any 2 criteria? No. Patient's initial ak2 sepsis screen is negative. Does the patient have a suspected source of infection? No. Patient's initial sepsis screen is negative. Risk Assessment: Do you want to hurt yourself or someone else? Patient reports no desire to harm self or others. Onset of symptoms was November 13, 2020. 20:39 Acuity: TOI 3 ak2 Triage Assessment: 20:38 General: Appears in no apparent distress. Behavior is calm, drowsy. Pain: Denies pain. ak2 Neuro: Level of Consciousness is post ictal. Cardiovascular: Rhythm is sinus rhythm. Respiratory: No deficits noted. Historical: - Allergies: 20:31 tramadol; rr5 - Home Meds: 20:40 acetaminophen-codeine 300-60 mg Oral tab [Active]; [place] Thyroid 60 mg Oral tab ak2 [Active]; gabapentin 100 mg Oral cap [Active]; gemfibrozil 600 mg Oral tab 1 tab 2 times per day [Active]; Glucagon Emergency Kit (human) 1 mg IM kit 1 mL [Active]; Levemir subcutaneous [Active]; levetiracetam 500 mg Oral tab 1 tab 2 times per day [Active]; Novolog Sub-Q [Active]; - PMHx: 20:31 Diabetes - IDDM; High Cholesterol; Hypothyroidism; neuropathy; Seizures; rr5 - Immunization history:: Adult Immunizations unknown. - Social history:: Smoking status: unknown. Screenin:39 Abuse screen: Denies threats or abuse. Denies injuries from another. Nutritional ak2 screening: No deficits noted. Tuberculosis screening: No symptoms or risk factors identified. Fall Risk Mental Status- Overestimates/Forgets Limitations (15 pts.). Assessment: 20:39 General: Appears in no apparent distress. Pain: Denies pain. ak2 20:52 Reassessment: Patient and/or family updated on plan of care and expected duration. Pain ak2 level reassessed. General: Appears in no apparent distress. Neuro: No deficits noted. Level of Consciousness is awake, alert, obeys commands, Oriented to person, place, time. Cardiovascular: No deficits noted. Respiratory: No deficits noted. 21:55 Reassessment: Patient appears in no apparent distress at this time. respond to verbal rr5 command. 22:24 Reassessment: Patient appears in no apparent distress at this time. Patient is alert, rr5 oriented x 3, equal unlabored respirations, skin warm/dry/pink. spoke to david [phone], [phone] updated over the phone. 22:25 Reassessment: Patient and/or family updated on plan of care and expected duration. Pain ak2 level reassessed. Neuro: No deficits noted. 23:20 Reassessment: Patient appears in no apparent distress at this time. Patient and/or rr5 family updated on plan of care and expected duration. Pain level reassessed. Patient is alert, oriented x 3, equal unlabored respirations, skin warm/dry/pink. 11/14 00:10 Reassessment: Patient appears in no apparent distress at this time. Patient is alert, rr5 oriented x 3, equal unlabored respirations, skin warm/dry/pink. discharge instruction given and explained without complaint made. Vital Signs: 11/13 20:21 BP 125 / 87; Pulse 106; Resp 19; Temp 98; Pulse Ox 99% on R/A; rr5 20:53 BP 110 / 68; Pulse 96; Resp 20; Pulse Ox 98% on R/A; ak2 21:56 BP 115 / 65; Pulse 90; Resp 16; Pulse Ox 98% ; rr5 22:24 BP 113 / 65; Pulse 85; Resp 16; Pulse Ox 99% ; rr5 23:30 BP 126 / 84; Pulse 75; Resp 17; Pulse Ox 99% ; rr5 11/14 00:10 BP 115 / 69; Pulse 80; Resp 19; Pulse Ox 99% ; rr5 Gómez Coma Score: 11/13 20:38 Eye Response: to pain(2). Verbal Response: confused(4). Motor Response: obeys ak2 commands(6). Total: 12. ED Course: 20:21 Patient arrived in ED. rr5 20:26 Thony Shine MD is Attending Physician. mh7 20:31 Arm band placed on right wrist. rr5 20:38 Solis Romero is Primary Nurse. ak2 20:39 Patient has correct armband on for positive identification. Side rails up X2. Seizure ak2 precautions initiated. 20:39 No provider procedures requiring assistance completed. Inserted saline lock: 18 gauge ak2 in left forearm, using aseptic technique. 20:40 Triage completed. ak2 20:55 CT Head Brain wo Cont In Process Unspecified. EDMS 23:59 Chava Granda MD is Referral Physician. 7 11/14 00:11 IV discontinued, intact, bleeding controlled, No redness/swelling at site. Pressure rr5 dressing applied. Administered Medications: 11/13 21:00 Drug: NS 0.9% 1000 ml Route: IV; Rate: 1 bolus; Site: left forearm; rr5 22:00 Follow up: Response: No adverse reaction; IV Status: Completed infusion; IV Intake: rr5 1000ml Intake: 22:00 IV: 1000ml; Total: 1000ml. rr5 Outcome: 11/14 00:01 Discharge ordered by . [facility] 00:11 Discharged to home ambulatory. rr5 00:11 Condition: stable 00:11 Discharge instructions given to patient, Instructed on discharge instructions, follow up and referral plans. medication usage, Demonstrated understanding of instructions, follow-up care, medications, Prescriptions given X 1. 00:11 Patient left the ED. rr5 Signatures: Dispatcher [employer] [facility] Jordi Benton RN RN rr5 Thony Shine MD MD 7 Solis Romero ak2 Corrections: (The following items were deleted from the chart) 00:12 00:11 Discharge instructions given to patient, Instructed on discharge instructions, rr5 follow up and referral plans. Demonstrated understanding of instructions, follow-up care, rr5
--- NOTE | 2020-11-14 00:02 | EDPHYS ---
Physician Documentation [facility] Name: Surjit Stubbs Age: 45 yrs Sex: Male : 1975 Arrival Date: 11/13/2020 Time: 20:21 Bed 3 Private MD: ED Physician Thony Shine HPI: 11/13 22:18 This 45 yrs old Male presents to ER via EMS with complaints of Probable mh7 Seizure. 22:18 The patient presents after having a single isolated seizure, that lasted an unknown mh7 period of time. Character of seizure(s): Loss of consciousness: it is not known if the patient experienced loss of consciousness, Motor activity: the motor activity is unknown, Incontinence: none, Apnea: it is not know whether or not the patient experienced apnea, Circulation: it is unknown whether or not the patient experienced a disturbance in pulse, Eye movements: are unknown. Seizure onset: today. Context: the seizure(s) was witnessed, by no one, occurred on a street or driveway, occurred while the patient was sitting, Contributing factors: missed recent doses of medications. Seizure Hx: Original onset: longstanding. Associated injury: The patient did not suffer any apparent associated injury. Current symptoms: drowsy. Historical: - Allergies: 20:31 tramadol; rr5 - Home Meds: 20:40 acetaminophen-codeine 300-60 mg Oral tab [Active]; [place] Thyroid 60 mg Oral tab ak2 [Active]; gabapentin 100 mg Oral cap [Active]; gemfibrozil 600 mg Oral tab 1 tab 2 times per day [Active]; Glucagon Emergency Kit (human) 1 mg IM kit 1 mL [Active]; Levemir subcutaneous [Active]; levetiracetam 500 mg Oral tab 1 tab 2 times per day [Active]; Novolog Sub-Q [Active]; - PMHx: 20:31 Diabetes - IDDM; High Cholesterol; Hypothyroidism; neuropathy; Seizures; rr5 - Immunization history:: Adult Immunizations unknown. - Social history:: Smoking status: unknown. ROS: 22:18 Constitutional: Negative for fever, chills, and weight loss, Eyes: Negative for injury, mh7 pain, redness, and discharge, ENT: Negative for injury, pain, and discharge, Neck: Negative for injury, pain, and swelling, Cardiovascular: Negative for chest pain, palpitations, and edema, Respiratory: Negative for shortness of breath, cough, wheezing, and pleuritic chest pain, Abdomen/GI: Negative for abdominal pain, nausea, vomiting, diarrhea, and constipation, Back: Negative for injury and pain, : Negative for injury, bleeding, discharge, and swelling, MS/Extremity: Negative for injury and deformity, Skin: Negative for injury, rash, and discoloration, Psych: Negative for depression, anxiety, suicide ideation, homicidal ideation, and hallucinations, Allergy/Immunology: Negative for hives, rash, and allergies, Endocrine: Negative for neck swelling, polydipsia, polyuria, polyphagia, and marked weight changes, Hematologic/Lymphatic: Negative for swollen nodes, abnormal bleeding, and unusual bruising. Exam: 22:18 Head/Face: Normocephalic, atraumatic. Eyes: Pupils equal round and reactive to light, mh7 extra-ocular motions intact. Lids and lashes normal. Conjunctiva and sclera are non-icteric and not injected. Cornea within normal limits. Periorbital areas with no swelling, redness, or edema. 22:18 Neck: Trachea midline, no thyromegaly or masses palpated, and no cervical lymphadenopathy. Supple, full range of motion without nuchal rigidity, or vertebral point tenderness. No Meningismus. Chest/axilla: Normal chest wall appearance and motion. Nontender with no deformity. No lesions are appreciated. Cardiovascular: Regular rate and rhythm with a normal S1 and S2. No gallops, murmurs, or rubs. Normal PMI, no JVD. No pulse deficits. Respiratory: Lungs have equal breath sounds bilaterally, clear to auscultation and percussion. No rales, rhonchi or wheezes noted. No increased work of breathing, no retractions or nasal flaring. Abdomen/GI: Soft, non-tender, with normal bowel sounds. No distension or tympany. No guarding or rebound. No evidence of tenderness throughout. Back: No spinal tenderness. No costovertebral tenderness. Full range of motion. Skin: Warm, dry with normal turgor. Normal color with no rashes, no lesions, and no evidence of cellulitis. MS/ Extremity: Pulses equal, no cyanosis. Neurovascular intact. Full, normal range of motion. 22:18 Psych: Awake, alert, with orientation to person, place and time. Behavior, mood, and affect are within normal limits. 22:18 Constitutional: The patient appears in no acute distress, unkempt, drowsy 22:18 ENT: Mouth: Oral mucosa: dry. 22:18 Neuro: Orientation: is normal, Mentation: slow to respond, drowsy, Memory: is normal, Cranial nerves: grossly normal, Cerebellar function: is grossly normal, Motor: is normal, Sensation: is normal, Gait: not tested. seizure activity, is not displayed by the patient, Abnormal movements: there are no abnormal movements. Vital Signs: 20:21 BP 125 / 87; Pulse 106; Resp 19; Temp 98; Pulse Ox 99% on R/A; rr5 20:53 BP 110 / 68; Pulse 96; Resp 20; Pulse Ox 98% on R/A; ak2 21:56 BP 115 / 65; Pulse 90; Resp 16; Pulse Ox 98% ; rr5 22:24 BP 113 / 65; Pulse 85; Resp 16; Pulse Ox 99% ; rr5 23:30 BP 126 / 84; Pulse 75; Resp 17; Pulse Ox 99% ; rr5 11/14 00:10 BP 115 / 69; Pulse 80; Resp 19; Pulse Ox 99% ; rr5 Bozman Coma Score: 11/13 20:38 Eye Response: to pain(2). Verbal Response: confused(4). Motor Response: obeys ak2 commands(6). Total: 12. MDM: 23:58 Differential diagnosis: drug overdose, cardiac arrhythmia, seizure. Data reviewed: [facility] vital signs, nurses notes, lab test result(s), CBC, drug level(s), electrolytes, urinalysis, urine drug screen, EKG, radiologic studies, CT scan. Data interpreted: Pulse oximetry: on room air is 99 %. Interpretation: normal. Counseling: I had a detailed discussion with the patient and/or guardian regarding: the historical points, exam findings, and any diagnostic results supporting the discharge/admit diagnosis, lab results, radiology results, the need for outpatient follow up, to return to the emergency department if symptoms worsen or persist or if there are any questions or concerns that arise at home. Response to treatment: the patient's symptoms have resolved after treatment, the patient's blood pressure is in an acceptable range, mental status has returned to baseline, the patient no longer shows bradycardia, the patient is not short of breath, the patient is not tachycardic, the patient's pain is gone, the patient's temperature has normalized. 11/14 00:01 Patient medically screened. [facility] 11/13 20:24 Order name: Acetaminophen; Complete Time: 21:50 em 11/13 20:24 Order name: Basic Metabolic Panel; Complete Time: 21:50 em 11/13 20:24 Order name: CBC with Diff; Complete Time: 21:50 em 11/13 20:24 Order name: ETOH Level; Complete Time: 21:50 em 11/13 20:24 Order name: Hepatic Function; Complete Time: 21:50 em 11/13 20:24 Order name: PT-INR; Complete Time: 21:50 em 11/13 20:24 Order name: Ptt, Activated; Complete Time: 21:50 11/13 20:24 Order name: Salicylate; Complete Time: 21:50 em 11/13 20:24 Order name: Urine Drug Screen; Complete Time: 23:06 em 11/13 20:24 Order name: EKG; Complete Time: 20:24 11/13 20:24 Order name: EKG - Nurse/Tech; Complete Time: 20:57 em 11/13 20:44 Order name: CT Head Brain wo Cont; Complete Time: 21:50 [facility] 11/13 22:29 Order name: Urine Dipstick-Ancillary; Complete Time: 23:06 [facility] 11/13 20:24 Order name: IV Saline Lock; Complete Time: 20:57 11/13 20:24 Order name: Labs collected and sent; Complete Time: 20:57 11/13 20:24 Order name: Urine Dipstick-Ancillary (obtain specimen); Complete Time: 22:31 em Administered Medications: 11/13 21:00 Drug: NS 0.9% 1000 ml Route: IV; Rate: 1 bolus; Site: left forearm; rr5 22:00 Follow up: Response: No adverse reaction; IV Status: Completed infusion; IV Intake: rr5 1000ml Disposition Summary: 11/14/20 00:01 Discharge Ordered Location: Home [facility] Problem: an acute exacerbation [facility] Symptoms: have improved [facility] Condition: Stable [facility] Diagnosis - Seizure 7 - Cocaine Abuse 7 - Methamphetamine Abuse 7 - Diabetes with Hyperglycemia 7 Followup: mh7 - With: Private Physician - When: 1 - 2 days - Reason: Worsening of condition, Recheck today's complaints, Continuance of care, Re-evaluation by your physician Followup: [facility] - With: Chava Garnda MD - When: 1 - 2 days - Reason: Worsening of condition, Recheck today's complaints Discharge Instructions: - Discharge Summary Sheet 7 - Cocaine Use Disorder mh7 - Methamphetamines Use Disorder 7 - Seizure, Adult, Nucw-og-Aoxa mh7 - Hyperglycemia, Fqtg-xn-Xaxr [facility] Forms: - Medication Reconciliation Form [facility] - Thank You Letter 7 - Antibiotic Education 7 - Prescription Opioid Use [facility] Prescriptions: - Keppra 500 mg Oral Tablet - take 1 tablet by ORAL route every 12 hours; 30 tablet; Refills: 0, Product [facility] Selection Permitted Signatures: Dispatcher [employer] Rubens Murcia RN RN Jordi Stewart RN RN rr5 Thony Shine MD MD 7 Solis Romero2 Corrections: (The following items were deleted from the chart) 22:31 20:24 Suicide Screening ([place]) ordered. shiva rr5
[2020-11-14 00:56] VITALS: TEMP 98
[2020-11-14 01:02] VITALS: O2SAT 99
[2020-11-14 01:05] VITALS: BP 115/69
--- NOTE | 2020-11-16 16:13 | EKG ---
Test Date: 2020-11-13 Test Time: 20:19:33 Sub Assembly Team Worker: RR MEASUREMENT RESULTS: Intervals: Rate: 117 IL: 140 QRSD: 64 QT: 328 QTc: 457 [place]: P: 42 IL: 140 QRS: 2 T: 46 INTERPRETIVE STATEMENTS: Sinus tachycardia Septal infarct, age undetermined Abnormal ECG Compared to ECG 10/17/2020 09:59:45 Myocardial infarct finding now present Electronically Signed On 11-16-20 16:05:33 CDT by Familia Pickett
== END 2020-11-14 00:11 | disposition home or self-care (01) ==
LOC: ER 20:19
DX: F14.10 Cocaine abuse, uncomplicated (principal); F15.10 Other stimulant abuse, uncomplicated; E11.65 Type 2 diabetes mellitus with hyperglycemia; Z79.4 Long term (current) use of insulin; Z88.5 Allergy status to narcotic agent
CPT/HCPCS: 36415; 70450; 80048; 80076; 80307; 80320; 80329; 81003; 85025; 85610; 85730; 93005; 96360; 99284

== ENCOUNTER 2020-12-01 08:30 | Inpatient (IN) | payer SELFPAY ==
--- OUTSIDE RECORDS SUMMARY | 2020-12-01 08:34 | XMS REPORT | Continuity of Care Document ---
:1975 Author Organization [facility] t Address [address] [place] [address] Care Team Providers Name Role Phone Michael [...] [facility] 00 [place] Provoked Provoked Disease [facility] 00 [place] Acute Acute Disease Active 2017-[address] encephalop encephalop 0-[facility] - athy athy 00:00: Medical 00 [place] Hyperglyce Hyperglyce Disease Active 2017-[address] yvan yvan 0-08 [facility] - [facility] 00 [place] Convulsive Convulsive Disease Active 2017-[address] seizure seizure 0[facility] - disorder disorder 00:00: Medica l with with 00 Center status status epilepticu epilepticu s s Allergies, Adverse Reactions, Alerts This patient has no known allergies or adverse reactions. Social History Social Habit Start Date Stop Date Quantity Comments Source Sex Assigned At [facility] Tobacco use and 2018-02-13 2018-02-13 Current user [facility] - exposure 00:00:00 00:00:00 [facility] Smoking Status Start Date Stop Date Source Current every day smoker 2018-02-13 00:00:00 [facility] Medications Ordered Filled Start Stop Current [...] Test 00:00:00 (procedure) [code = Medical Center 31944697] Future Scheduled 2021-01-[address] [facility] - Test 00:00:00 (Season Ended) [code = Medic al Center INFLUENZA VACCINE (Season Ended)] Future Scheduled 2020-05-[address] [facility] - Test 00:00:00 (12+) [code = Medical Center DEPRESSION SCREENING (12+)] Future Scheduled 2018-08-[address] [facility] - Test 00:00:00 measurement Medical Center (procedure) [code = 82327770] Future Scheduled 1993 DTAP/TDAP/TD VACCINES CH I [...] 00:00:00 examination Medical Center (regime/therapy) [code = 790780698] Future Scheduled 1984-01-26 Urine screening for [facility] - Test 00:00:00 protein (procedure) Medical Center [code = 569827337] Future Scheduled 1980-01-[address] [facility] - Test 00:00:00 0-64 YRS (1 of 1 - Medical C enter PPSV23) [code = PNEUMOCOCCAL VACCINE 0-64 YRS (1 of 1 - PPSV23)] Future Scheduled [address] [facility] - Test 00:00:00 malignant neoplasm of Medica l Center colon (procedure) [code = 021270704] Encounters Start End Encounter Admission Attending Care Care Encounter Source Date/Time Date/Time Type Type Clinicians Facility Department ID 2020-10-27 2020-10-27 Transition Ben Rodriguez [id number] 00:00:00 00:00:00 of Care Patricia Villanueva [id number] [place] [id number] 2020-10-25 2020-10-26 [facility] Akira Winter [facility] [id number] 16:12:00 18:10:00 Encounter Ryan Cardozo [id number] Trey White [id number] [place] [id number] 2020-08-17 2020-08-17 [facility] [id number] 15:25:16 16:33:28 Visit [facility] [id number] Surgical [id number] [facility] [id number] es [address] [place] Results Test Description Test Time Test Comments Results Result Comments Source BLOOD CULTURE 2018-02-17 06:00:00 Test Item Value Reference Range Interpretation Comme nts CULTURE ([employer]) (test code = 1095) No growth in 5 days URINE [id number] 10:25:00 Test Item Value Reference Range Interpretation Comments CULTURE ([employer]) (test code = 1095) No growth POCT-GLUCOSE [id number] 17:10:00 Test Item Value Reference Range Interpretation Comments POC-GLUCOSE METER 232 mg/dL 70-110 H TESTED AT [facility] 6720 ([employer]) (test code = [place] 1538) [address] CT, CTANGIO [id number] 16:41:00CTV pleaseFINAL REPORT CTV brain 02/13/2018 4:35 [...] Sky Verified Date/Time: 02/13/2018 16:41:24 Reading Location: [facility] Radiology Reading Room POCT-GLUCOSE [id number] 13:07:00 Test Item Value Reference Range Interpretation Comments POC-GLUCOSE METER 311 mg/dL 70-110 H Notified Gareth Coronado MD/TESTED ([place]) (test code = AT [facility] [address] [facility] 6339) [facility] 7703 0 IRON, TIBC, % SAT. (WITHOUT FERRITIN)2018-02-13 10:10:00 Test Item Value Reference Range Interpretation Comments IRON (BEAKER) (test code = 547) 49 ug/dL 40-160 TOTAL IRON BINDING CAPACITY 231 ug/dL 250-450 L (BEAKER) (test code = 769) IRON % SATURATION (2) (BEAKER) 21 % 20-55 (test code = 2590) POCT-GLUCOSE [id number] 08:50:00 Test Item Value Reference Range Interpretation Comments POC-GLUCOSE METER 348 mg/dL 70-110 H Notified Gareth Coronado MD/TESTED (BEAKER) (test code = AT [facility] [address] [facility] 1538) [facility] 7703 0 BASIC METABOLIC [id number] 08:31:00 Test Item Value Reference Range Interpretation [...] NOT APPLICABLE FOR DIALYSIS PATIEN TS. LIPID [id number] 08:31:00 Test Item Value Reference Range Interpretation [...] 130-159 High 160-189 Very High >=190IMMATURE RETICULOCYTE [id number] 08:16:00 Test Item Value Reference Range Interpretation Comments IMMATURE RETIC FRACTION (BEAKER) 8.600 % 2.300-13.400 (test code = 1447) RETICULOCYTE COUNT PCT (BEAKER) (test 1.4 % 0.5-1.8 code = 575) CBC W/PLT COUNT & AUTO [id number] 08:16:00 Test Item Value Reference Range Interpretation [...] PERCENT (BEAKER) (test code = 2801) POCT-GLUCOSE [id number] 21:18:00 Test Item Value Reference Range Interpretation Comments POC-GLUCOSE METER 226 mg/dL 70-110 H TESTED AT [facility] 6720 ([place]ORIA) (test code = [place] 1538) [address] MR, BRAIN, WITHOUT [id number] 19:43:00FINAL REPORT MRI brain without contrast INDICATION: [...] thrombus cannot be excluded. The major proximal [place] flow voids are maintained. Mild [...] Verified Date/Time: 02/12/2018 19:43:32 [facility] Reading Room POCT-GLUCOSE [id number] 19:01:00 Test Item Value Reference Range Interpretation Comments POC-GLUCOSE METER 362 mg/dL 70-110 H TESTED AT [facility] 6720 ([place]ORIA) (test code = [place] 1538) [address] EEG AWAKE AND [id number] 17:46:00Reason for exam:->SeizureShould this be performed at the bedside?->[facility] REPORTDATE OF TEST: [id number] OF REPORT: [id number]: [id number]: [id number] time: 14:04Stop time: 14:24ICD-10: R56.9CPT Code: 43817QPMAMWL: 40 y old 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, [...] this report.Queenie Loco MD, PhDClinical Neurophysiology/Epilepsy AttendingCHI [facility] POCT- GLUCOSE [id number] 15:33:00 Test Item Value Reference Range Interpretation Comments POC-GLUCOSE METER 213 mg/dL 70-110 H TESTED AT [facility] 67 (BEAKER) (test code = [facility] 1538) [address] TSH/FREE T4 IF [id number] 09:35:00 Test Item Value Reference Range Interpretation Comments THYROID STIMULATING HORMONE 4.03 uIU/mL 0.35-4.94 (BEAKER) (test code = 772) HEMOGLOBIN [id number] 08:47:00 Test Item Value Reference Range Interpretation Comments HEMOGLOBIN A1C (BEAKER) (test code = 6.5 % 4.3-6.1 H 368) POCT-GLUCOSE [id number] 07:55:00 Test Item Value Reference Range Interpretation Comments POC-GLUCOSE METER 219 mg/dL 70-110 H TESTED AT [place] [address] (BEAKER) (test code = [facility] 1538) [address] [id number] 05:00:00 Test Item Value Reference Range Interpretation Comments MAGNESIUM (BEAKER) (test code = 2.1 mg/dL 1.6-2.6 627) BASIC METABOLIC [id number] 05:00:00 Test Item Value Reference Range Interpretation [...] PATIEN TS. CBC W/PLT COUNT & AUTO [id number] 04:40:00 Test Item Value Reference Range Interpretation [...] PERCENT (BEAKER) (test code = 2801) POCT-GLUCOSE [id number] 04:31:00 Test Item Value Reference Range Interpretation Comments POC-GLUCOSE METER 183 mg/dL 70-110 H TESTED AT [place] [address] ([place]AN[place]) (test code = [facility] 1538) [address] RAD, ABDOMEN/KUB, 1 VIEW [id number] 01:33:00Reason for exam:->Abdominal distension, obtundationFINAL REPORT CLINICAL [...] in the pelvis. Signed: Wilfredo De Leon [facility] Verified Date/Time: 02/12/2018 01:33:19 Reading Location: [address] Reading Room -GLUCOSE [id number] 00:49:00 Test Item Value Reference Range Interpretation Comments POC-GLUCOSE METER 346 mg/dL 70-110 H TESTED AT [facility] 67 ([place]) (test code = DARRYLME Gareth [facility] 1538) [address] CBC W/PLT COUNT & AUTO [id number] 00:44:00 Test Item Value Reference Range Interpretation Comments WHITE BLOOD CELL COUNT ([place]) 14.3 K/ L 3.5-10.5 H (test code [...] (test code = 2801) RAPID DRUG SCREEN, [id number] 00:35:00 Test Item Value Reference Range Interpretation [...] situations. Chain of custody not maintained. Some sczy-rqb-dxpvspa medications, as well as adulterants, may cause inaccurate results. Clinical correlation should be applied. A more comprehensive drug screen or confirmation of a detected drug may be performed upon request. TROPONIN [id number] 00:15:00 Test Item Value Reference Range Interpretation [...] acute neurological disease, and persistent tachyarrhythmia.COMPREHENSIVE METABOLIC [id number] 00:09:00 Test Item Value Reference Range Interpretation [...] APPLICABLE FOR DIALYSIS PATIEN TS. URINALYSIS W/ [id number] 00:06:00 Test Item Value Reference Range Interpretation [...] = 2795) RAD, CHEST, 1 VIEW, NON [id number] 23:11:00Reason for exam:->Obtundation with coarse respirations, baselineShould this be performed at the [facility]?->YesFINAL REPORT RAD, CHEST, 1 VIEW, NON DEPT INDICATION: Obtundation with coarserespirations, baseline COMPARISON: None. FINDINGS: Portable frontal view of the chest. IMPRESSION: Support Lines: None. Lungs and pleura: Clear lungs. No pneumothorax.Heart and mediastinum: Unremarka ble. Additional findings: Fluid and gaseous distention of the gastric lumen. Signed: JR Lozano Robert MDReport Verified Date/Time: 02/11/2018 23:11:04 Reading Location: [address]
[2020-12-01] MEDS ORDERED: NA CHLORIDE 0.9% 2,000 ML ONE (08:59)
[2020-12-01 09:11] LABS: Absolute Lymphocytes (CBC) 0.6 K/uL (0.7-4.9); Basophils % 0.3 % (0-1.3); Hematocrit 39.1 % (39.6-49.0); Lymphocytes % 6.6 % (15.3-44.8); MPV 8.4 fL (7.6-11.3); RBC Red Blood Cell Count 3.94 M/uL (4.33-5.43)
[2020-12-01 09:14] LABS: Urine Blood Negative (Negative); Urine Glucose 3+ (Negative); Urine Protein Negative (Negative)
[2020-12-01 09:26] LABS: Potassium 4.4 mmol/L (3.5-5.1)
[2020-12-01] MEDS ORDERED: INSULIN -REGULAR HUMAN 50 UNIT/0.5 ML ML ONE ×2 (09:34→21:41)
[2020-12-01 10:02] LABS: Barbiturates NEGATIVE (NEGATIVE); Benzodiazepines NEGATIVE (NEGATIVE); Cocaine NEGATIVE (NEGATIVE); METHAMPHETAM POSITIVE (NEGATIVE); Methadone NEGATIVE (NEGATIVE); Opiates NEGATIVE (NEGATIVE); Phencyclidine NEGATIVE (NEGATIVE); THC Cannibis NEGATIVE (NEGATIVE)
[2020-12-01 10:13] LABS: Arterial Blood Carboxyhemoglob 3.1 % (0-1.5); Blood Gas Oxyhemoglobin 93.8 % (94-97); Blood O2 Saturation 97.9 % (92-98.5)
[2020-12-01] MEDS ORDERED: Ringers Lactate 1,000 ML IV ONE (10:25)
[2020-12-01] MEDS ORDERED: INSULIN -REGULAR HUMAN 100 UNIT in NA CHLORIDE 0.9% 100 ML IV SCH ×2 (11:00→13:10)
--- NOTE | 2020-12-01 12:49 | P.HP ---
Certification for Inpatient Patient admitted to: Inpatient With expected LOS: >2 Midnights Practitioner: I am a practitioner with admitting privileges, knowledge of patient current condition, hospital course, and medical plan of care. Services: Services provided to patient in accordance with Admission requirements found in Title 42 Section 412.3 of the Code of Federal Regulations Patient History Date of Service: 12/01/20 Reason for admission: DKA History of Present Illness: 45-year-old gentleman with a history of type 1 diabetes on Levemir insulin and insulin sliding scale, history of methamphetamine abuse here in the ED for elevated blood sugar. Patient blood sugar was noted to be as high as 800. Noted to be acidotic with an anion gap of 18, urine acetone positive. Toxicology screen positive for methamphetamine. Patient reports noncompliance with his insulin. He is diagnosed with DKA and admitted for further management. Allergies tramadol Allergy (Verified 01/13/20 07:25) Nausea/Vomiting Home Medications: Glucagon,Human Recombinant [Glucagon Emergency Kit] 1 mg IM PRN PRN 05/06/17 Insulin -Regular Human [Novolin -R*] See Protocol SQ ACHS 05/06/17 Insulin Detemir [Levemir*] 16 units SQ DAILY 05/06/17 Multivitamin [Daily Multiple Vitamin] 1 tab PO DAILY 05/06/17 Pregabalin [Lyrica*] 100 mg PO BID 05/06/17 Thyroid Tab [[place] Thyroid*] 120 mg PO DAILY 05/06/17 gemfibroziL [Lopid*] 600 mg PO BID 05/06/17 Thiamine HCl [Vitamin B-1*] 100 mg PO DAILY #30 tablet 01/14/20 - Past Medical/Surgical History Diabetic: Yes -: Diabetes mellitus type 1 -: Hypothyroidism -: Hyperlipidemia -: Alcohol abuse -: neuropathy -: adenoidectomy Psychosocial/ Personal History: Patient currently lives at home alone as his girlfriend is in senior care and is unemployed. - Family History Father -: Heart disease, Diabetes - Social History Smoking Status: Current every day smoker Alcohol use: Yes CD- Drugs: Yes Caffeine use: Yes Review of Systems Other: Patient denied any fever or shortness of breath or cough or chest pain or abdominal pain or diarrhea. He endorsed nausea but no vomiting. Except as documented, all other systems reviewed and negative. Physical Examination - Physical Exam General: Alert, In no apparent distress, Oriented x3 HEENT: Normocephalic, Mucous membr. moist/pink Neck: Supple, JVD not distended, No Thyromegaly Respiratory: Clear to auscultation bilaterally, Normal air movement Cardiovascular: No edema, Regular rate/rhythm, Normal S1 S2, No murmurs Gastrointestinal: Normal bowel sounds, Soft and benign, Non-distended, No tenderness Musculoskeletal: No swelling, No tenderness Integumentary: No rashes, No erythema Neurological: Normal speech, Normal strength at 5/5 x4 extr, Cranial nerves 3-12 intact Lymphatics: No axilla or inguinal lymphadenopathy - Studies Laboratory Data (last 24 hrs) 12/01/20 10:04: Glucose 462 H* 12/01/20 08:40: Sodium 127 L, Potassium 4.4, BUN 15, Creatinine 1.53 H, Glucose 833 H* 12/01/20 08:40: WBC 9.30, Hgb 12.9 L, Hct 39.1 L, Plt Count 372 Assessment and Plan - Problems (Diagnosis) (1) DKA (diabetic ketoacidosis) Current Visit: Yes Status: Acute (2) Methamphetamine abuse Current Visit: Yes Status: Acute - Plan Admit to the ICU. DKA protocol initiated. Insulin drip Aggressive IV fluid hydration. Monitor and correct electrolytes per DKA protocol. Check alcohol level. Obtain hemoglobin A1c. History of alcohol abuse. Monitor for alcohol withdrawal. - Advance Directives Does patient have a Living Will: No Does patient have a Durable POA for Healthcare: No
[2020-12-01] MEDS ORDERED: D5 0.9 NS 1,000 ML IV ONE (12:57)
[2020-12-01] MEDS ORDERED: ONDANSETRON 4 MG/2 ML VIAL IV PRN (13:10)
[2020-12-01] MEDS ORDERED: NACHLORIDE 0.45% 1,000 ML with POTASSIUM CL 20 MEQ IV SCH ×2 (13:10)
[2020-12-01] MEDS ORDERED: ACETAMINOPHEN 500 MG TAB PO PRN (13:10)
[2020-12-01] MEDS ORDERED: D5.45NS W/KCL 20MEQ 1,000 ML IV SCH (13:10)
[2020-12-01 13:36] VITALS: BMI 20.7
[2020-12-01] MEDS ORDERED: D5 0.9 NS 1,000 ML IV SCH (14:00)
[2020-12-01 14:07] LABS: Urine Appearance CLEAR (Clear); Urine Bilirubin NEGATIVE (Negative); Urine Blood NEGATIVE (Negative); Urine Color YELLOW (Yellow); Urine Glucose 3+ (Negative); Urine Protein NEGATIVE (Negative); Urine Urobilinogen 0.2 mg/dL (0.2-1.0); Urine pH 6.5 (5.0-7.0)
[2020-12-01 14:19] LABS: Urine Microscopic Reflex NO UMIC
[2020-12-01 14:39] LABS: Potassium 3.5 mmol/L (3.5-5.1)
[2020-12-01] MEDS ORDERED: GLUCAGON 1 MG/VIAL IM PRN (17:30)
[2020-12-01] MEDS ORDERED: D50W 25 GM/50 ML SYRINGE IV PRN (17:30)
--- NOTE | 2020-12-01 17:59 | ER ---
Nurse's Notes [facility] Name: Surjit Stubbs Age: 45 yrs Sex: Male : 1975 Arrival Date: 12/01/2020 Time: 08:34 Bed 8 Private MD: Diagnosis: Diabetes mellitus due to underlying condition with ketoacidosis without coma;Dehydration Presentation: 12/01 08:34 Acuity: TOI 2 sv 08:34 Chief complaint: EMS states: hasn't had his insulin in 2 days and his BS reads HIGH. sv 20G R AC, NS started. HR-115. Coronavirus screen: Client denies travel out of the [place] in the last 14 days. At this time, the client does not indicate any symptoms associated with coronavirus-19. Ebola Screen: No symptoms or risks identified at this time. Initial Sepsis Screen: Does the patient meet any 2 criteria? RR > 20 per min. HR > 90 bpm. Yes Does the patient have a suspected source of infection? No. Patient's initial sepsis screen is negative. Risk Assessment: Do you want to hurt yourself or someone else? Patient reports no desire to harm self or others. Onset of symptoms was December 01, 2020. 08:34 Method Of Arrival: EMS: [facility] sv Triage Assessment: 08:34 General: Appears in no apparent distress. comfortable, slender, Behavior is sv cooperative. Pain: Denies pain. Neuro: Level of Consciousness is awake, alert, obeys commands, Oriented to person, place, time, situation, Moves all extremities. Full function Gait is steady. Cardiovascular: Patient's skin is warm and dry. Rhythm is sinus tachycardia. Respiratory: Airway is patent Respiratory effort is even, unlabored, Respiratory pattern is regular, symmetrical. Derm: Skin is pink, warm \\T\\ dry. Musculoskeletal: Range of motion: intact in all extremities. Historical: - Allergies: 09:25 tramadol; sv - PMHx: 09:25 Diabetes - IDDM; High Cholesterol; Hypothyroidism; neuropathy; Seizures; sv - PSHx: 09:25 None; sv - Immunization history:: Client reports having NOT received the Covid vaccine. - Social history:: Smoking status: Patient reports the use of cigarette tobacco products, smokes two packs cigarettes per day. - Family history:: not pertinent. - Hospitalizations: : No recent hospitalization is reported. Screenin:45 Abuse screen: Denies threats or abuse. Denies injuries from another. Nutritional sv screening: No deficits noted. Tuberculosis screening: No symptoms or risk factors identified. Fall Risk None identified. Assessment: 08:42 Reassessment: Patient appears in no apparent distress at this time. No changes from sv previously documented assessment. Patient and/or family updated on plan of care and expected duration. Pain level reassessed. Patient is alert, oriented x 3, equal unlabored respirations, skin warm/dry/pink. 09:55 Reassessment: Patient appears in no apparent distress at this time. No changes from sv previously documented assessment. Patient and/or family updated on plan of care and expected duration. Pain level reassessed. Patient is alert, oriented x 3, equal unlabored respirations, skin warm/dry/pink. 10:31 Reassessment: Patient appears in no apparent distress at this time. No changes from sv previously documented assessment. Patient and/or family updated on plan of care and expected duration. Pain level reassessed. Patient is alert, oriented x 3, equal unlabored respirations, skin warm/dry/pink. 11:15 Reassessment: Patient appears in no apparent distress at this time. No changes from sv previously documented assessment. Patient and/or family updated on plan of care and expected duration. Pain level reassessed. Patient is alert, oriented x 3, equal unlabored respirations, skin warm/dry/pink. Dr Simms at the bedside. 12:35 Reassessment: Patient appears in no apparent distress at this time. No changes from sv previously documented assessment. Patient and/or family updated on plan of care and expected duration. Pain level reassessed. Patient is alert, oriented x 3, equal unlabored respirations, skin warm/dry/pink. Informed Dr Wick of the last 2 BS and the rate of the Insulin drip. He stated to hold the insulin drip for 30 mins and decrease the rate by half when restarted and to start D5NS \\T\\150 mls/hr. Vital Signs: 08:34 BP 151 / 95; Pulse 115; Resp 22; Temp 98.7; Pulse Ox 100% ; Weight 63.5 kg; Height 5 sv ft. 9 in. (175.26 cm); Pain 0/10; 09:15 BP 149 / 94; Pulse 103; Resp 16; Pulse Ox 99% ; sv 10:22 BP 145 / 103; Pulse 103; Resp 15; Pulse Ox 100% ; sv 11:15 BP 143 / 87; Pulse 107 MON; Resp 19; Pulse Ox 100% on R/A; sv 12:15 BP 127 / 82; Pulse 102 MON; Resp 21; Pulse Ox 100% on R/A; sv 08:34 Body Mass Index 20.67 (63.50 kg, 175.26 cm) sv 11:15 Sinus tachycardia sv 12:15 Sinus tachycardia sv ED Course: 08:34 Patient arrived in ED. sv 08:34 Jamila Arechiga, RN is Primary Nurse. sv 08:34 Frankie Wick MD is Attending Physician. rn 08:34 Triage completed. sv 08:40 Initial lab(s) drawn, by me, sent to lab. Maintain EMS IV. Dressing intact. Good blood sv return noted. Site clean \\T\\ dry. Gauge \\T\\ site: 20G R AC. 08:45 Patient has correct armband on for positive identification. Bed in low position. Call sv light in reach. Side rails up X2. Pt in police custody at this time. inbound sales manager on. Pulse ox on. NIBP on. 08:50 Arm band placed on. sv 10:00 Adams Simms is Hospitalizing Provider. rn 10:30 NORMA-19 : Document "Date of Symptom Onset" if Symptomatic. Sent. sv 11:20 Inserted saline lock: 20 gauge in right forearm, using aseptic technique. Flushed right sv forearm with 2 ml normal saline. 13:02 No provider procedures requiring assistance completed. Patient admitted, IV remains in sv place. intact. 19:15 Primary Nurse role handed off by Jamila Arechiga RN sv Administered Medications: 12:39 Discontinued: Lactated Ringers Solution 1000 ml IV at 150 ml/hr continuous sv 08:42 Drug: NS 0.9% 1000 ml Route: IV; Rate: 1000 ml; Site: right antecubital; sv 10:55 Follow up: Response: No adverse reaction; IV Status: Completed infusion; IV Intake: sv 1000ml 08:42 Drug: NS 0.9% 1000 ml Route: IV; Rate: 1000 ml; Site: right antecubital; sv 11:22 Follow up: Response: No adverse reaction; IV Status: Completed infusion; IV Intake: sv 1000ml 09:15 Drug: Insulin Regular Human 10 units {Co-Signature: ph (Meghna Oneil RN).} Route: IVP; sv Site: right antecubital; 10:00 Follow up: Response: No adverse reaction sv 09:15 Drug: Insulin Regular Human 10 units {Co-Signature: ph (Meghna Oneil RN).} Route: sv Sub-Q; Site: left upper abdomen; 10:00 Follow up: Response: No adverse reaction sv 10:30 Drug: Insulin Drip - (Insulin Regular Human 100 units, NS 0.9% 100 ml) {Co-Signature: sv ph (Meghna Oneil RN).} Route: IV; Rate: calculated rate; Site: right antecubital; 11:22 Drug: Lactated Ringers Solution 1000 ml Route: IV; Rate: 150 ml/hr; Site: right sv antecubital; 12:39 Drug: D5-NS 1000 ml Route: IV; Rate: 150 ml/hr; Site: right forearm; sv Intake: 10:55 IV: 1000ml; Total: 1000ml. sv 11:22 IV: 1000ml; Total: 2000ml. sv Outcome: 10:01 Decision to Hospitalize by Provider. rn 13:02 Admitted to ER Hold. Please see [facility] for further documentation. sv 13:02 Condition: stable 13:02 Instructed on the need for admit. 12/02 13:58 Patient left the ED. Signatures: Jamila Arechiga RN RN Frankie Wick MD MD rn Baxter, Heather, RN RN Meghna Oneil RN ph
--- NOTE | 2020-12-01 18:00 | EDPHYS ---
Physician Documentation [facility] Name: Surjit Stubbs Age: 45 yrs Sex: Male : 1975 Arrival Date: 12/01/2020 Time: 08:34 Bed 8 Private MD: ED Physician Frankie Wick HPI: 12/01 08:36 This 45 yrs old Male presents to ER via Unassigned with complaints of High rn Blood Sugar. 08:36 The patient or guardian reports hyperglycemia, that was potentially precipitated by rn forgetting medications. Onset: The symptoms/episode began/occurred at an unknown time. Associated signs and symptoms: Pertinent positives: polydipsia, polyuria, Pertinent negatives: seizure activity, vomiting. Current symptoms: In the emergency department the patient's symptoms are unchanged from the initial presentation. The patient has experienced similar episodes in the past. The patient has not recently seen a physician. Patient brought in by EMS and police after being arrested for warrants. Patient told police that had and had his insulin and a couple of days and felt like his blood sugar was high. EMS states blood sugar read high on the glucometer. Patient states has not taken insulin due to extreme circumstances lately but does not elaborate. No fever/vomiting/diarrhea. Reports feels dehydrated.. Historical: - Allergies: 09:25 tramadol; sv - PMHx: 09:25 Diabetes - IDDM; High Cholesterol; Hypothyroidism; neuropathy; Seizures; sv - PSHx: 09:25 None; sv - Immunization history:: Client reports having NOT received the Covid vaccine. - Social history:: Smoking status: Patient reports the use of cigarette tobacco products, smokes two packs cigarettes per day. - Family history:: not pertinent. - Hospitalizations: : No recent hospitalization is reported. ROS: 08:36 Constitutional: Negative for fever, chills, and weight loss, Eyes: Negative for injury, rn pain, redness, and discharge, Neck: Negative for injury, pain, and swelling, Cardiovascular: Negative for chest pain, and edema, Respiratory: Negative for shortness of breath, cough, wheezing, and pleuritic chest pain, Abdomen/GI: Negative for abdominal pain, nausea, vomiting, diarrhea, and constipation, Back: Negative for injury and pain, : Negative for injury, bleeding, discharge, and swelling, MS/Extremity: Negative for injury and deformity, Skin: Negative for injury, rash, and discoloration, Neuro: Negative for headache, numbness, tingling, and seizure. Exam: 08:36 Constitutional: Thin male, no acute distress, in handcuffs. Head/Face: Normocephalic, rn atraumatic. Eyes: Pupils equal round and reactive to light, extra-ocular motions intact. Lids and lashes normal. Conjunctiva and sclera are non-icteric and not injected. Cornea within normal limits. Periorbital areas with no swelling, redness, or edema. ENT: Dry mucous membranes Cardiovascular: Tachycardic, regular, no pulse deficits Respiratory: Speaking full sentences, unlabored. No increased work of breathing, no retractions or nasal flaring. Abdomen/GI: Soft, nontender Skin: Warm, dry MS/ Extremity: Pulses equal, no cyanosis. Neurovascular intact. Full, normal range of motion. Equal circumference. Neuro: Awake and alert, GCS 15, oriented to person, place, time, and situation. Cranial nerves II-XII grossly intact. Motor strength 5/5 in all extremities. Sensory grossly intact. Cerebellar exam normal. 08:58 ECG was reviewed by the Attending Physician. rn Vital Signs: 08:34 BP 151 / 95; Pulse 115; Resp 22; Temp 98.7; Pulse Ox 100% ; Weight 63.5 kg; Height 5 sv ft. 9 in. (175.26 cm); Pain 0/10; 09:15 BP 149 / 94; Pulse 103; Resp 16; Pulse Ox 99% ; sv 10:22 BP 145 / 103; Pulse 103; Resp 15; Pulse Ox 100% ; sv 11:15 BP 143 / 87; Pulse 107 MON; Resp 19; Pulse Ox 100% on R/A; sv 12:15 BP 127 / 82; Pulse 102 MON; Resp 21; Pulse Ox 100% on R/A; sv 08:34 Body Mass Index 20.67 (63.50 kg, 175.26 cm) sv 11:15 Sinus tachycardia sv 12:15 Sinus tachycardia sv MDM: 08:36 Patient medically screened. rn 09:59 Differential diagnosis: DKA, hyperglycemia. Data reviewed: vital signs, nurses notes, rn perioperative test result(s), EKG, and as a result, I will admit patient. Counseling: I had a detailed discussion with the patient and/or guardian regarding: the historical points, exam findings, and any diagnostic results supporting the discharge/admit diagnosis, lab results, the need for further work-up and treatment in the hospital. 10:00 Response to treatment: the patient's symptoms have mildly improved after treatment, and rn as a result, I will admit patient. Admission orders: after a detailed discussion of the patient's condition and case, the admit orders are written by me. ED course: Patient with glucose in the 800s, acidotic, ketones in urine, will admit to Dr. Simms for mild DKA, will start insulin drip, notified police and they will try and figure out their next move.. 12/01 08:35 Order name: CBC with Diff; Complete Time: 09:27 12/01 08:35 Order name: Basic Metabolic Panel; Complete Time: 09:56 12/01 08:35 Order name: Urine Drug Screen; Complete Time: 10:07 12/01 08:53 Order name: Glucose, Ancillary Testing; Complete Time: 09:00 [facility] 12/01 09:14 Order name: Urine Dipstick-Ancillary; Complete Time: 09:27 [facility] 12/01 09:57 Order name: ABG; Complete Time: 10:57 12/01 10:00 Order name: Glucose; Complete Time: 10:57 12/01 10:04 Order name: COVID-19 : Document "Date of Symptom Onset" if Symptomatic. 12/01 10:11 Order name: Glucose, Ancillary Testing; Complete Time: 10:57 [facility] 12/01 11:14 Order name: Glucose, Ancillary Testing [facility] 12/01 11:42 Order name: SARS-COV-2 RT PCR [facility] 12/01 12:42 Order name: Glucose, Ancillary Testing [facility] 12/01 13:22 Order name: Glucose, Ancillary Testing [facility] 12/01 14:19 Order name: Urinalysis [facility] 12/01 14:22 Order name: Glucose, Ancillary Testing [facility] 12/01 14:53 Order name: Basic Metabolic Panel [facility] 12/01 15:10 Order name: Glucose, Ancillary Testing [facility] 12/01 16:26 Order name: Glucose, Ancillary Testing [facility] 12/01 17:10 Order name: Glucose, Ancillary Testing [facility] 12/01 21:24 Order name: Basic Metabolic Panel [facility] 12/01 21:35 Order name: Glucose, Ancillary Testing [facility] 12/02 07:16 Order name: CBC with Automated Diff [facility] 12/02 07:47 Order name: Glucose, Ancillary Testing [facility] 12/02 07:47 Order name: Phosphorus [facility] 12/02 07:47 Order name: Lipid Profile [facility] 12/02 07:47 Order name: Magnesium [facility] 12/02 08:54 Order name: Basic Metabolic Panel [facility] 12/02 11:54 Order name: Glucose, Ancillary Testing [facility] 12/01 08:35 Order name: IV Start; Complete Time: 08:56 rn 12/01 08:35 Order name: Urine Dipstick-Ancillary (obtain specimen); Complete Time: 09:24 rn 12/01 08:35 Order name: EKG; Complete Time: 08:36 rn 12/01 08:35 Order name: EKG - Nurse/Tech; Complete Time: 08:56 rn 12/01 08:35 Order name: Glucose Level; Complete Time: 08:56 rn EC:58 Rate is 115 beats/min. Rhythm is regular. QRS [place] is Normal. UT interval is normal. rn QRS interval is normal. QT interval is normal. No Q waves. T waves are Normal. No ST changes noted. Clinical impression: Sinus tachycardia. Interpreted by me. Reviewed by me. Administered Medications: 12:39 Discontinued: Lactated Ringers Solution 1000 ml IV at 150 ml/hr continuous sv 08:42 Drug: NS 0.9% 1000 ml Route: IV; Rate: 1000 ml; Site: right antecubital; sv 10:55 Follow up: Response: No adverse reaction; IV Status: Completed infusion; IV Intake: sv 1000ml 08:42 Drug: NS 0.9% 1000 ml Route: IV; Rate: 1000 ml; Site: right antecubital; sv 11:22 Follow up: Response: No adverse reaction; IV Status: Completed infusion; IV Intake: sv 1000ml 09:15 Drug: Insulin Regular Human 10 units {Co-Signature: alisa (Meghna Oneil RN).} Route: IVP; sv Site: right antecubital; 10:00 Follow up: Response: No adverse reaction sv 09:15 Drug: Insulin Regular Human 10 units {Co-Signature: alisa (Meghna Oneil RN).} Route: sv Sub-Q; Site: left upper abdomen; 10:00 Follow up: Response: No adverse reaction sv 10:30 Drug: Insulin Drip - (Insulin Regular Human 100 units, NS 0.9% 100 ml) {Co-Signature: sv ph (Meghna Oneil RN).} Route: IV; Rate: calculated rate; Site: right antecubital; 11:22 Drug: Lactated Ringers Solution 1000 ml Route: IV; Rate: 150 ml/hr; Site: right sv antecubital; 12:39 Drug: D5-NS 1000 ml Route: IV; Rate: 150 ml/hr; Site: right forearm; sv Disposition Summary: 12/01/20 10:01 Hospitalization Ordered Hospitalization Status: Inpatient Admission rn Provider: Adams Simms rn Condition: Stable rn Problem: new rn Symptoms: have improved rn Bed/Room Type: Standard rn Location: [facility] ER HOLD(12/01/20 12:53) sv Room Assignment: ERHOLD-(12/01/20 12:53) sv Diagnosis - Diabetes mellitus due to underlying condition with ketoacidosis without coma rn - Dehydration rn Forms: - Medication Reconciliation Form rn - SBAR form rn Signatures: Dispatcher [employer] EDJamila Montoya RN RN sv Frankie Wick MD MD rn Meghna Oneil RN ph Corrections: (The following items were deleted from the chart) 10:46 10:04 CORONAVIRUS ordered. [facility] 12:53 10:01 Intensive Care Unit rn sv 12:53 10:01 rn sv
[2020-12-01] MEDS: INSULIN -REGULAR HUMAN 50 UNIT/0.5 ML ML SQ SCH (21:00)
[2020-12-01 21:24] LABS: Potassium 3.8 mmol/L (3.5-5.1)
[2020-12-01 21:36] VITALS: TEMP 98.2
[2020-12-02 07:10] LABS: Basophils % 1.1 % (0-1.3); Hematocrit 36.1 % (39.6-49.0); Lymphocytes % 26.9 % (15.3-44.8); MPV 7.9 fL (7.6-11.3); RBC Red Blood Cell Count 3.71 M/uL (4.33-5.43)
[2020-12-02 07:28] LABS: Magnesium 1.5 mg/dL (1.8-2.4); Phosphorus 3.2 mg/dL (2.5-4.9)
[2020-12-02] MEDS: INSULIN -REGULAR HUMAN 50 UNIT/0.5 ML ML SQ SCH ×2 (07:30→11:30)
[2020-12-02 07:43] VITALS: BP 130/87
[2020-12-02] MEDS ORDERED: Magnesium Sulfate 2gm IVPB 2 G/50 ML BAG IV ONE ×2 (08:14→08:44)
[2020-12-02] MEDS ORDERED: INSULIN -REGULAR HUMAN 50 UNIT/0.5 ML ML ONE (08:43)
[2020-12-02] MEDS ORDERED: ENOXAPARIN 40 MG/0.4 ML SQ ONE (08:43)
[2020-12-02 08:54] LABS: BUN Blood Urea Nitrogen 10 mg/dL (7-18); Bicarbonate 19 mmol/L (21-32); Glucose Level 352 mg/dL (74-106); Potassium 4.4 mmol/L (3.5-5.1); Sodium Level 137 mmol/L (136-145)
[2020-12-02] MEDS ORDERED: ENOXAPARIN 40 MG/0.4 ML SQ SCH (09:00)
[2020-12-02] MEDS ORDERED: GLUCAGON 1 MG/VIAL IM PRN (10:22)
[2020-12-02] MEDS ORDERED: D50W 25 GM/50 ML SYRINGE IV PRN (10:22)
[2020-12-02] MEDS ORDERED: INSULIN 70/30 100 UNITS/ML SQ SCH (10:24)
--- NOTE | 2020-12-02 12:29 | P.DS ---
Admission Date: 12/01/20 Discharge Date: 12/02/20 Disposition: ROUTINE DISCHARGE Discharge Condition: FAIR Reason for Admission: DKA - Problems (1) DKA (diabetic ketoacidosis) Current Visit: Yes Status: Acute (2) Methamphetamine abuse Current Visit: Yes Status: Acute Brief History of Present Illness: 45-year-old gentleman with a history of type 1 diabetes on Levemir insulin and insulin sliding scale, history of methamphetamine abuse here in the ED for elevated blood sugar. Patient blood sugar was noted to be as high as 800. Noted to be acidotic with an anion gap of 18, urine acetone positive. Toxicology screen positive for methamphetamine. Patient reported noncompliance with his insulin. He was diagnosed with DKA and admitted for further management. Hospital Course: DKA protocol initiated with insulin drip, aggressive IV hydration. Metabolic acidosis resolved, DKA resolved and patient transitioned to subcutaneous insulin-Novolin 70/30 20 mg b.i.d. for affordability. No evidence of infection. DKA secondary to insulin noncompliance. Patient advised to stop abusing methamphetamine. Vital Signs/Physical Exam: Temp Pulse Resp BP Pulse Ox 98.2 F 77 16 130/87 97 12/01/20 20:00 12/02/20 07:38 12/02/20 07:38 12/02/20 07:38 12/02/20 07:38 General: Alert, In no apparent distress, Oriented x3 HEENT: Mucous membr. moist/pink Neck: JVD not distended Respiratory: Clear to auscultation bilaterally, Normal air movement Cardiovascular: No edema, Regular rate/rhythm, Normal S1 S2 Gastrointestinal: Soft and benign, Non-distended Musculoskeletal: No swelling Integumentary: No rashes Neurological: Normal strength at 5/5 x4 extr Laboratory Data at Discharge: WBC 7.30 K/uL (4.3-10.9) D 12/02/20 06:52 Hgb 12.3 g/dL (13.6-17.9) L 12/02/20 06:52 Hct 36.1 % (39.6-49.0) L 12/02/20 06:52 Plt Count 319 K/uL (152-406) 12/02/20 06:52 Sodium 137 mmol/L (136-145) 12/02/20 08:04 Potassium 4.4 mmol/L (3.5-5.1) 12/02/20 08:04 BUN 10 mg/dL (7-18) 12/02/20 08:04 Creatinine 0.79 mg/dL (0.55-1.3) 12/02/20 08:04 Glucose 352 mg/dL (74-106) H 12/02/20 08:04 Phosphorus 3.2 mg/dL (2.5-4.9) 12/02/20 06:52 Magnesium 1.5 mg/dL (1.8-2.4) L D 12/02/20 06:52 Triglycerides 306 mg/dL (<150) H 12/02/20 06:52 Cholesterol 220 mg/dL (<200) H 12/02/20 06:52 HDL Cholesterol 44 mg/dL (40-60) 12/02/20 06:52 Cholesterol/HDL Ratio 5.00 12/02/20 06:52 Home Medications: Insulin -Regular Human [Novolin -R*] See Protocol SQ ACHS 05/06/17 Multivitamin [Daily Multiple Vitamin] 1 tab PO DAILY 05/06/17 Glucagon,Human Recombinant [Glucagon Emergency Kit] 1 mg IM PRN PRN #5 vial 12/02/20 Insulin 70/30 NPH/Reg Human [Novolin 70/30*] 25 unit SQ BIDAC #10 ml 12/02/20 Pregabalin [Lyrica*] 100 mg PO BID #60 cap 12/02/20 Thiamine HCl [Vitamin B-1*] 100 mg PO DAILY #30 tablet 12/02/20 Thyroid Tab [[place] Thyroid*] 120 mg PO DAILY #30 tab 12/02/20 gemfibroziL [Lopid*] 600 mg PO BID #60 tab 12/02/20 New Medications: Thyroid Tab [[place] Thyroid*] 120 mg PO DAILY #30 tab Glucagon,Human Recombinant [Glucagon Emergency Kit] 1 mg IM PRN PRN #5 vial PRN Reason: Hypoglycemia gemfibroziL [Lopid*] 600 mg PO BID #60 tab Pregabalin [Lyrica*] 100 mg PO BID #60 cap Insulin 70/30 NPH/Reg Human [Novolin 70/30*] 25 unit SQ BIDAC #10 ml Thiamine HCl [Vitamin B-1*] 100 mg PO DAILY #30 tablet Diet: ADA Activity: Ad katerina Followup: NONE,NONE [Primary Care Provider] - Time spent managing pt's care (in minutes): 33
[2020-12-02] MEDS ORDERED: INSULIN 70/30 100 UNITS/ML SQ ONE (12:45)
--- NOTE | 2020-12-03 07:35 | EKG ---
Test Date: 2020-12-01 Test Time: 08:40:53 [employer]: FADI MEASUREMENT RESULTS: Intervals: Rate: 115 NV: 150 QRSD: 66 QT: 342 QTc: 473 [place]: P: 76 NV: 150 QRS: 42 T: 79 INTERPRETIVE STATEMENTS: Sinus tachycardia Possible Left atrial enlargement Septal infarct, age undetermined Abnormal ECG Compared to ECG 11/13/2020 20:19:33 No significant changes Electronically Signed On 12-03-20 07:29:12 CDT by Familia Pickett
[2020-12-03 10:39] VITALS: O2SAT 100
== END 2020-12-02 13:59 | disposition home or self-care (01) | DRG 639 ==
LOC: ER 08:30 → ERHOLD 12:34
PROVIDERS: ADMIT Internal Medicine; ATTEND Internal Medicine
DX: E10.10 Type 1 diabetes mellitus with ketoacidosis without coma (principal); Z79.4 Long term (current) use of insulin; F15.10 Other stimulant abuse, uncomplicated; E03.9 Hypothyroidism, unspecified; E78.5 Hyperlipidemia, unspecified; F17.210 Nicotine dependence, cigarettes, uncomplicated; Z20.822 Contact with and (suspected) exposure to COVID-19
CPT/HCPCS: 36415; 80048; 80061; 80307; 81003; 82805; 82947; 83735; 84100; 85025; 93005; 96372; 99285; J1650; J1815; J3475; J3480; J7030; J7042; J7120; U0003

== ENCOUNTER 2022-03-06 18:15 | Emergency (ER) | payer SELFPAY ==
--- OUTSIDE RECORDS SUMMARY | 2022-03-06 18:22 | XMS REPORT | Continuity of Care Document ---
:1975 Author Organization [facility] t Address [address] [place] [address] Care Team Providers Name Role Phone PCP, PATIENT DOES NOT HAVE A Primary Care Physician Unavaila ANDREI Lynch Attending Clinician Unavailable Akira Winter MD Attending Clinician Matt Ford MD Attending Clinician Patricia Rodriguez Attending Clinician Ryan Cardozo MD Attending Clinician Trey White MD Attending Clinician TOR MONTANO Attending Clinician Unavailable Tor Montano MD Attending Clinician MARIA EUGENIA MANRIQUE Attending Clinician Unavailable Matt Ford MD Admitting Clinician Trey White MD Admitting Clinician MARIA EUGENIA MANRIQUE Admitting Clinician Unavailable Payers Payer Name Policy Type Policy Number Effective Date Expiration Date S [facility] [id number] 2020 RETIREMENT 00:00:00 MEDICAID SSI PENDING 2020 PENDING 00:00:00 Problems Condition Condition Condition Status Onset Resolution Last Treating Co mments Source Name Details Category Date Date Treatment Clinician Date Hypothyroi Hypothyroi Disease Active 2020-05 U nivers dism due dism due 0-26 ity of to to 00:00: [place] Salma' Salma' 00 Me dical s s Branch thyroiditi thyroiditi s s Hypoglycem Hypoglycem Disease Active 2020-05 U nivers ia ia 0-25 ity of 00:00: [place] 00 Medical Branch Diabetic Diabetic Disease Active Unive rs ketoacidos ketoacidos 6-20 it y of is with is with 00:00: [place] coma coma 00 Medical associated associated Br anch with type with type 2 diabetes 2 diabetes mellitus mellitus 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 [facility] protein-ca protein-ca 0-10 [facility] lizbet somers 00:00: Medical malnutriti malnutriti 00 Ce nter on on Hyperchole Hyperchole Disease Active 2017-[address] steremia steremia 0-08 [facility] Thyroid Thyroid Disease Active 2017-[address] [facility] disease disease 0-08 [facility] 00 [place] Leukocytos Leukocytos Disease Active 2017-[address] is is 0-08 [facility] 00:[facility] 00 [place] Anemia Anemia Disease Active 2017-[address] [facility] 0-08 [facility] 00[facility] 00 [place] Provoked Provoked Disease Active 2017-05 [facility] seizure seizure 0-08 [facility] 00 [place] Acute Acute Disease Active 2017-[address] encephalop encephalop 0-08 [facility] athy athy 00:00: Medical 00 Center Hyperglyce Hyperglyce Disease Active 2017-[address] yvan yvan 0-08 [facility] 00[facility] 00 Center Diabetes Diabetes Disease Active 2017-05 [facility] mellitus mellitus 0-08 [facility] Center Convulsive Convulsive Disease Active 2017-[address] seizure seizure 0-07 [facility] disorder disorder 00:00: Medica l with with 00 Center status status epilepticu epilepticu s s Type 1 Type 1 Disease Active [facility] diabetes diabetes ity of mellitus mellitus [place] with with Medical hypoglycem hypoglycem Br anch ia ia Allergies, Adverse Reactions, Alerts Allergy Allergy Status Severity Reaction(s) Onset Inactive Treating Comm ents Source Name Type Date Date Clinician TRAMADOL DRUG Active N/V Univers INGREDI - ity of 00:00: [place] 00 Medical Branch Tramadol Propensi Active Nausea Univer s ty to and/or 11-03 ity of adverse Vomiting 00:00: [place] reaction 00 Medical s Branch Social History Social Habit Start Date Stop Date Quantity Comments Source Exposure to Not sure [facility] SARS-CoV-2 Medical Branch (event) Tobacco use and 2018-02-13 2018-02-13 Current user [employer] exposure 00:00:00 00:00:00 [facility] Sex Assigned At [birth year] [facility] 00:00:00 00:00:00 [facility] Smoking Status Start Date Stop Date Source Current every day smoker 2018-02-13 00:00:00 [facility] Medications Ordered Filled Start Stop Current Ordering Indication Dosage Frequency Signature Comments Components Source Medication Medication Date Date Medication? Clinician (SIG) Name Name levothyroxi 2020-05- No [id number] 75ug Take 1 Univers ne 75 mcg 0-28 11-28 tablet by ity of tablet 00:00: 05:59 mouth [place] 00 :00 every Medical morning Branch for 30 days. insulin 2020-05 Yes 20U 20 Units, Unive rs glargine 0-27 Subcutaneo ity o f (LANTUS 14:00: us, DAILY, [place] U-100) 00 First dose Medical injection (after Branch 20 Units last modificati on) on Mon03/03/21 at 0900, Until Discontinu ed, Routine insulin 2020-05 Yes 10U inject 10 Unive rs aspart 0-27 Units ity of RAPID 12:55: under the [place] (NOVOLOG 59 skin 3 Medical U-100 (three) Branch INSULIN times ASPART) 100 daily with unit/mL meals. injection gemfibroziL 2020-05 Yes 600mg Take 600 U nivers 600 mg 0-27 mg by ity of tablet 12:55: mouth at [place] 59 bedtime. Medical Branch insulin 2020-05- No 30U inject 30 Univ ers detemir 0-27 10-27 Units ity of (LEVEMIR 11:23: 00:00 under the [place] U-100 09 :00 skin Medical INSULIN SC) daily. Branch levothyroxi 2020-05 Yes 1ug/kg/ 75 mcg U nivers ne 0-27 d (rounded ity of (SYNTHROID) 11:00: from 78 [place] tablet 75 00 mcg = 1 Medical mcg mcg/kg/day Branch ?78 kg), Oral, QAM-0600, First dose on Mon03/03/21 at 0600, Until Discontinu ed, Routine gemfibroziL 2020-05 Yes 600mg 600 mg, Un lucila (LOPID) 0-27 Oral, QHS, ity of tablet 600 02:00: First dose [place] mg 00 on [facility] 03/02/21 Branch at 2100, Until Discontinu ed, Routine gabapentin 2020-05 Yes 300mg 300 mg, Uni vers (NEURONTIN) 0-27 Oral, QHS, it y of capsule 300 02:00: First dose [place] mg 00 on [facility] 03/02/21 Branch at 2100, Until Discontinu ed, Routine insulin 2020-05- No [id number] 20U inject 20 Univers detemir 0-03 04-27 Units ity of U-100 00:00: 05:59 under the [place] (LEVEMIR 00 :00 skin daily Medic al U-100 for 30 Branch INSULIN) days. 100 unit/mL injection gabapentin 2020-05- No [id number] 300mg Take 1 Univers 300 mg 0- capsule by ity of capsule 00:00: 05:59 mouth at [place] 00 :00 bedtime Medical for 30 Branch days. insulin 2020-05- No 10U 10 Units, Univ ers glargine 0-02 03- Subcutaneo ity of (LANTUS 22:00: 13:11 us, QHS, [place] U-100) 00 :30 First dose Medical injection on [facility] Branch 10 Units 03/02/21 at 1700, Until Discontinu ed, Routine Sliding 2020-05 Yes Subcutaneo Univ ers Scale 0-26 us, TID ity of Insulin - 17:00: MEALS+HS, [place] Lispro 00 First dose Medical (HumaLOG) + (after Branch Fsbg last Testing modificati on) on 03/02/21 at 1200, Until Discontinu ed, Routine Sliding 2020-05- No Subcutaneo Uni vers Scale 0-25 10-26 us, TID ity of Insulin - 22:00: 14:34 MEALS+HS, [place] Lispro 00 :54 First dose Medical (HumaLOG) + on Mon [place] [facility] 03/01/21 Testing at 1700, Until Discontinu ed, Routine LORazepam 2020-05 Yes 2mg 2 mg, Slow Un lucila (ATIVAN) 0-25 IV Push, ity of injection 2 17:44: Q6HPRN, [place] mg 59 Starting Medical on Mon Branch 03/01/21 at 1244, Until Discontinu ed, Routine, Seizures ondansetron 2020-05 Yes 4mg 4 mg, Slow Univers (ZOFRAN 0-25 IV Push, ity of (PF)) 17:44: Q6HPRN, [place] injection 4 26 Starting Medi rogers mg on Mon [place] 03/01/21 at 1244, Until Discontinu ed, Routine, Nausea and Vomiting (N/V) acetaminoph 2020-05 Yes 650mg 650 mg, Un lucila en 0-25 Oral, ity of (TYLENOL) 17:44: Q6HPRN, [place] tablet 650 19 Starting Medic al mg on Mon03/01/21 at 1244, Until Discontinu ed, Routine, Pain (scale 1-3) dextrose 50 2020-05- No 50mL 50 mL, Uni vers % in water 0-25 10-25 Intravenou it y of (D50W) 17:00: 15:40 s, ONCE, 1 [place] injection 00 :00 dose, On Medica l 50 mL Mon [place] 03/01/21 at 1200, STAT ondansetron 2020-05- No 4mg 4 mg, Slow Univers (ZOFRAN 0-25 10-25 IV Push, ity of (PF)) 17:00: 15:48 ONCE, 1 [place] injection 4 00 :00 dose, On Medi rogers mg [facility] 03/01/21 at 1200, MARCOS D5W 0.45% 2020-05- No 1000mL at 125 Uni vers NaCl 0-25 10-25 mL/hr, ity of (1/2NS) IV 17:00: 21:29 1,000 mL, [place] infusion 00 :40 IV Medical 1,000 mL Infusion, Branch CONTINUOUS , Starting on Mon03/01/21 at 1200, Until Mon03/01/21 at 1629, MARCOS ondansetron 2018-0 Yes [id number] 4mg Take 1 Univers (ZOFRAN 1-28 tablet by sabrina of T) 4 mg 00:00: mouth [place] disintegrat 00 every 8 Medic al ing tablet (eight) Branch hours as needed for Nausea and Vomiting (N/V). thyroid, 2017-05 Yes 120mg QD Take [address] pork, 120 0-09 mg by [facility]ukes mg Tab 17:55: mouth Medical 10 daily. Center gemfibrozil 2017-05 Yes 600mg Take [address] (LOPID) 600 0-09 mg by [facility]ukes MG tablet 17:55: mouth 2 Medic al 10 (two) Center times daily before meals. insulin 2017-05 Yes 6U QD Inject [address] detemir 0-09 Units [facility]ukes U-100 17:55: subcutaneo Medica l (LEVEMIR) 10 usly Center 100 unit/mL nightly. injection insulin 2017-05 Yes 3U Inject [address] aspart 0-09 Units [facility]ukes U-100 17:55: subcutaneo Medica l (NOVOLOG) 10 usly 3 Center 100 unit/mL (three) InPn times daily before meals. acetaminoph 2017-05 Yes 1{tbl} Take [address] en-codeine 0-09 tablet by Luke s (TYLENOL 17:55: mouth Medical #4) 300-60 10 every 6 Center mg per (six) tablet hours as needed for Pain. thyroid, 2017-05 Yes 120mg QD Take [address] pork, 120 0-09 mg by Lukes mg Tab 17:55: mouth Medical 10 daily. Center gemfibrozil 2017-05 Yes 600mg Take [address] (LOPID) 600 0-09 mg by [facility]ukes MG tablet 17:55: mouth 2 Medic al 10 (two) Center times daily before meals. insulin 2017-05 Yes 6U QD Inject [address] detemir 0-09 Units [facility]ukes U-100 17:55: subcutaneo Medica l (LEVEMIR) 10 usly Center 100 unit/mL nightly. injection insulin 2017-05 Yes 3U Inject [address] aspart 0-09 Units [facility]ukes U-100 17:55: subcutaneo Medica l (NOVOLOG) 10 usly 3 Center 100 unit/mL (three) InPn times daily before meals. acetaminoph 2017-05 Yes 1{tbl} Take [address] en-codeine 0-09 tablet by Andres ragland (TYLENOL 17:55: mouth Medical #4) 300-60 10 every 6 Center mg per (six) tablet hours as needed for Pain. Immunizations Ordered Filled Immunization Date Status Comments [facility] e Immunization Name Name SARS-COV-2 COVID-19 2021-03-03 Completed Unive rsity of PFIZER VACCINE 00:00:00 [facility] Branch Influenza Virus 2018-02-13 Completed Universit y of Vaccine Quad IM 3+ 00:00:[address] [facility] Branch Influenza Four-QIV 2018-02-[address] [facility] Non-PF 5+ YR 00:00:00 Medical [facility] er Influenza Four-QIV 2018-02-[address] [facility] Non-PF 5+ YR 00:00:00 Medical [facility] er Vital Signs Vital Name Observation Time Observation Value Comments Source Systolic blood 2021-03-03 109 mm[Hg] [facility] pressure 16:44:00 [facility] Diastolic blood 2021-03-03 81 mm[Hg] Depue o f pressure 16:44:00 [facility] Heart rate 2021-03-03 85 /min [facility] 16:44:00 [facility] Body temperature 2021-03-03 36.33 Elisha [facility] 16:44:00 [facility] Respiratory rate 2021-03-03 16 /min [facility] 16:44:00 [facility] Oxygen saturation 2021-03-03 93 /min [facility] in Arterial blood 16:44:00 [facility] by Pulse oximetry [place] Body weight 2021-03-03 77.384 kg [facility] 09:09:00 [facility] BMI 2021-03-03 25.19 kg/m2 [facility] 09:09:00 [facility] Body height 2021-03-01 175.3 cm Simultaneous [facility] 18:25:00 filing. User may [facility] al not have seen Branch previous data. Procedures Procedure Date / Time Performing Clinician Source Performed POCT GLUCOSE (AUTOMATED) 2021-03-03 17:28:00 Matt Ford [facility] POCT GLUCOSE (AUTOMATED) 2021-03-03 13:06:00 Matt Ford [facility] BASIC METABOLIC PANEL 2021-03-03 09:15:00 Matt Ford [facility] (NA, K, CL, CO2, GLUCOSE, Medica l Branch BUN, CREATININE, CA) CBC WITH DIFF 2021-03-03 09:15[facility]) 2021-03-03 03:19:00 Matt Ford [facility] POCT GLUCOSE (AUTOMATED) 2021-03-03 00:52:00 Matt Ford [facility] POCT GLUCOSE (AUTOMATED) 2021-03-02 22:20:00 Matt Ford [facility] POCT GLUCOSE (AUTOMATED) 2021-03-02 17:14:00 Matt Ford [facility] POCT GLUCOSE (AUTOMATED) 2021-03-02 12:59:00 Matt Ford [facility] FREE T4 2021-03-02 09:44:00 Logan [facility] BASIC METABOLIC PANEL 2021-03-02 09:44:00 Matt Ford [facility] (NA, K, CL, CO2, GLUCOSE, Medica l Branch BUN, CREATININE, CA) FREE T3 2021-03-02 09:44:00 Matt Ford [facility] POCT GLUCOSE (AUTOMATED) 2021-03-02 01:03:00 Matt Ford Uni [facility] POCT GLUCOSE (AUTOMATED) 2021-03-01 21:37:00 Matt Ford [facility] CRITICAL CARE 2021-03-01 21:20:20 Akira Winter [facility] POCT GLUCOSE (AUTOMATED) 2021-03-01 20:55:00 [facility] ([facility]OMATED) 2021-03-01 18:17:00 [place], Matt Uni [facility] POCT GLUCOSE (AUTOMATED) 2021-03-01 16:49:00 Akira Winter [facility] CT HEAD WO CONTRAST 2021-03-01 16:00:12 Akira Winter [facility] MAGNESIUM 2021-03-01 15:51:00 Akira Winter [facility] THYROID STIMULATING 2021-03-01 15:51:00 Usman [facility] HORMONE [facility] COMP. METABOLIC PANEL 2021-03-01 15:51:00 Akira Winter [facility] ([id number]) [facility] CBC WITH DIFF 2021-03-01 15:51:00 Moy Akira [facility] GLYCOSYLATED HEMOGLOBIN 2021-03-01 15:51[facility]00 [facility] Branch COVID-19 (ID NOW RAPID 2021-03-01 15:51:00 Akira Winter [facility] TESTING) Medical Branch LAB ONLY COVID 2021-03-01 15:51:00 Akira Winter [facility] INTERPRETATION [facility] HB ECG ROUTINE & RHYTHM 2021-03-01 15:45:31 [facility] POCT GLUCOSE (AUTOMATED) 2021-03-01 15:42:00 Akira Winter [facility] Plan of Care Planned Activity Planned Date Details Comments Source Future Scheduled 2021-02-[address] [facility] 00:[facility]:00 (procedure) [code = Medical Center 24400865] Future Scheduled 2021-01-[address] [facility] Test 00:00:00 (Season Ended) [code = [facility] INFLUENZA VACCINE (Season Ended)] Future Scheduled 2020-05-[address] [facility] Test 00:00:00 (12+) [code = Medical Center DEPRESSION SCREENING (12+)] Future Scheduled 2018-08-[address] [facility] Test 00:00:00 [facility] (procedure) [code = 06975967] Future Scheduled 1993 DTAP/TDAP/TD VACCINES [facility] Test 00:00:00 (1 - Tdap) [code = Medical C enter DTAP/TDAP/TD VACCINES (1 - Tdap)] Future Scheduled 1992-01-26 HEPATITIS C SCREENING [facility] Test 00:00:00 [code = HEPATITIS C Medical Center SCREENING] Future Scheduled 1986 COVID-19 VACCINE (1) [facility] Test 00:00:00 [code = COVID-[address] VACCINE (1)] Future Scheduled 1984-01-26 DIABETIC EYE EXAM [facility] Test 00:00:00 [code = DIABETIC EYE Medical Center EXAM] Future Scheduled 1984-01-[address] [facility] Test 00:00:00 examination Medical Center (regime/therapy) [code = 949702973] Future Scheduled 1984-01-26 Urine screening for [facility] Test 00:00:00 protein (procedure) Medical Center [code = 177936920] Future Scheduled 1980-01-[address] [facility] Test 00:00:00 0-64 YRS (1 of 1 - Medical C enter PPSV23) [code = PNEUMOCOCCAL VACCINE 0-64 YRS (1 of 1 - PPSV23)] Future Scheduled [address] [facility] Test 00:00:00 malignant neoplasm of Medica l Center colon (procedure) [code = 458703587] Encounters Start End Encounter Admission Attending Care Care Encounter Source Date/Time Date/Time Type Type Clinicians Facility Department ID 2021-03-09 Emergency [facility] [id number] Univers 09:22:47 ity [facility] [place] [facility] 2021-03-08 Emergency [facility] [id number] Univers 02:24:31 ity [facility] [place] [facility] 2021-03-12 2021-03-12 Outpatient Gareth MALHOTRA [facility] [id number] Univers 16:30:00 16:30:00 ANDREI ity [facility] [place] [facility] 2021-03-01 2021-03-03 Emergency Akira Winter [facility] [id number] Univers 10:40:00 12:50:00 Matt Ford [id number] ity [facility] [id number] [facility] [id number] [place] [address] Branch 2020-10-27 2020-10-27 Transition Ben Rodriguez [id number] 00:00:00 00:00:00 of Care Patricia Villanueva [id number] [place] [id number] 2020-10-25 2020-10-26 Hospital Akira Winter [facility] [id number] 16:12:00 18:10:00 Encounter Ryan Cardozo [id number] Trey White [id number] [place] [id number] 2020-08-17 2020-08-17 [facility] [id number] [facility] 16:01:43 23:59:00 TOR bennett [facility] [place] [facility] 2020-08-17 2020-08-17 [facility] [id number] 15:25:16 16:33:28 Visit [facility] [id number] Surgical [id number] [facility] [id number] [address] Results Test Description Test Time Test Comments Results Result Comments Source POCT GLUCOSE (AUTOMATED) 2021-03-03 17:40:06 Test Item Value Reference Range Interpretation Comme nts POCT GLU (test code = 9766494807) 322 mg/dL 70-110 H Lab Interpretation (test code = 23229-3) Abnormal [facility]2021-03-03 13:09:15 Test Item Value Reference Range Interpretation Comments POCT GLU (test code = 1971013560) 316 mg/dL 70-110 H Lab Interpretation (test code = Abnormal 89114-5) [facility] (NA, K, CL, CO2, GLUCOSE, BUN, CREATININE, CA)2021-03-03 11:38:31 Test Item Value Reference Range Interpretation Comments NA (test code = 132 mmol/L 135-145 L [id number]) K (test code = 4.9 mmol/L 3.5-5.0 1180613752) CL (test code = 101 mmol/L 98-108 8466730178) CO2 TOTAL (test code = 27 mmol/L 23-31 5137402606) AGAP (test code = 2-16 8979397969) BUN (test code = 19 mg/dL 7-23 0869266929) GLUCOSE (test code = 318 mg/dL 70-110 H 4386498582) CREATININE (test code = 0.88 mg/dL 0.60-1.25 6999484687) CALCIUM (test code = 9.4 mg/dL 8.6-10.6 1381180213) eGFR (test code = mL/min/1.73m2 3959005189) CLIFF (test code = CLIFF) Association of Glomerular Filtration Rate (GFR) and Staging of Kidney Disease* + --+ --+ ------+| GFR (mL/min/1.73 m2) ?| With Kidney Damage ?| ?Without Kidney Damage+ --------+ --------+ +| ?>90 ?| ?Stage one ?| ? Normal ?+ ---+ ---+ -------+| ?60-89 ?| ?Stage two ?| ? Decreased GFR ? + --+ --+ ------+| ?30-59 ?| ?Stage three ?| ? Stage three ? + --+ --+ ------+| ?15-29 ?| ?Stage four ? | ? Stage four ?+ ---+ ---+ -------+| ?<15 (or dialysis) ? ?| ?Stage five ? | ? Stage five ?+ ---+ ---+ -------+ *Each stage assumes the associated GFR level has been in effect for at least three months. ?Stages 1 to 5, with or without kidney disease, indicate chronic kidney disease. Notes: Determination of stages one and two (with eGFR >59mL/min/1.73 m2) requires estimation of kidney damage for at least three months as defined by structural or functional abnormalities of the kidney, manifested by either:Pathological abnormalities or Markers of kidney damage (including abnormalities in the composition of the blood or urine or abnormalities in imaging tests). Lab Interpretation Abnormal (test code = 38150-3) [facility] WITH [id number] 10:44:26 Test Item Value Reference Range Interpretation Comments WBC (test code = See_Comment [Automated 9390-2) message] The sy stem which generated this result transmitted reference range : 4.20 - 10.70 10*3/?L. The reference range was not used to interpret this result as normal/abnormal . RBC (test code = See_Comment [Automated 789-8) message] The sy stem which generated this result transmitted reference range : 4.26 - 5.52 10*6/?L. The reference range was not used to interpret this result as normal/abnormal . HGB (test code = 14.3 g/dL 12.2-16.4 718-7) HCT (test code = 41.7 % 38.4-49.3 4544-3) MCV (test code = 87.2 fL 81.7-95.6 787-2) MCH (test code = 29.9 pg 26.1-32.7 785-6) MCHC (test code = 34.3 g/dL 31.2-35.0 786-4) RDW-SD (test code = 40.4 fL 38.5-51.6 27171-6) RDW-CV (test code = 12.8 % 12.1-15.4 788-0) PLT (test code = See_Comment H [Automated 777-3) message] The sy stem which generated this result transmitted reference range : 150 - 328 10*3/ ?L. The reference r ambrosio was not used to interpret this result as normal/abnormal . MPV (test code = 11.3 fL 9.8-13.0 50105-1) NRBC/100 WBC (test See_Comment [Automat ed code = 8203060864) message] The system which generated this result transmitted reference range : 0.0 - 10.0 /100 WBCs. The refer ence range was not u sed to interpret th is result as normal/abnormal . NRBC x10^3 (test code <0.01 See_Comment [Auto mated = 4175449243) message] The s ystem which generated this result transmitted reference range : 10*3/?L. The reference range was not used to interpret this result as normal/abnormal . GRAN MAT (NEUT) % 51.4 % (test code = 770-8) IMM GRAN % (test code 0.30 % = 4789976183) LYMPH % (test code = 29.5 % 736-9) MONO % (test code = 9.9 % 5905-5) EOS % (test code = 7.3 % 713-8) BASO % (test code = 1.6 % 706-2) GRAN MAT x10^3(ANC) 3.88 10*3/uL 1.99-6.95 (test code = 9199086007) IMM GRAN x10^3 (test <0.03 0.00-0.06 code = 1974017162) LYMPH x10^3 (test code 2.23 10*3/uL 1.09-3.23 = 731-0) MONO x10^3 (test code 0.75 10*3/uL 0.36-1.02 = 742-7) EOS x10^3 (test code = 0.55 10*3/uL 0.06-0.53 H 711-2) BASO x10^3 (test code 0.12 10*3/uL 0.01-0.09 H = 704-7) Lab Interpretation Abnormal (test code = 42296-0) [facility] GLUCOSE (AUTOMATED)2021-03-03 05:25:50 Test Item Value Reference Range Interpretation Comments POCT GLU (test code = 0674546385) 140 mg/dL 70-110 H Lab Interpretation (test code = Abnormal 27474-4) [facility] GLUCOSE (AUTOMATED)2021-03-03 05:25:49 Test Item Value Reference Range Interpretation Comments POCT GLU (test code = 4467013388) 129 mg/dL 70-110 H Lab Interpretation (test code = Abnormal 87243-5) [facility] GLUCOSE (AUTOMATED)2021-03-02 22:33:16 Test Item Value Reference Range Interpretation Comments POCT GLU (test code = 3495784721) 205 mg/dL 70-110 H Lab Interpretation (test code = Abnormal 24960-5) [facility] GLUCOSE (AUTOMATED)2021-03-02 17:32:23 Test Item Value Reference Range Interpretation Comments POCT GLU (test code = 2744888519) 253 mg/dL 70-110 H Lab Interpretation (test code = Abnormal 68160-3) [facility] [id number] 14:39:03 Test Item Value Reference Range Interpretation Comments FREE T4 (test code = See_Comment L [Autom ated message] [id number]) The system [employer] generated this result transmitted ref erence range: 0.78 - 2 .20 ng/dL:. The ref erence range was not u sed to interpret this result as normal/abnor mal. Lab Interpretation (test Abnormal code = 68613-5) [facility] [id number] 14:38:22 Test Item Value Reference Range Interpretation Comments FREE T3 (test code = 0173353875) 2.94 pg/mL 2.77-5.27 Lab Interpretation (test code = Normal 60438-6) [facility] GLUCOSE (AUTOMATED)2021-03-02 13:04:49 Test Item Value Reference Range Interpretation Comments POCT GLU (test code = 9213439923) 177 mg/dL 70-110 H Lab Interpretation (test code = Abnormal 02290-2) [facility] [facility] Metabolic Panel (NA, K, CL, CO2, GLUCOSE, BUN, CREATININE, CA)2021-03-02 12:10:05 Test Item Value Reference Range Interpretation Comments NA (test code = 134 mmol/L 135-145 L 0862580856) K (test code = 4.8 mmol/L 3.5-5.0 9406070579) CL (test code = 106 mmol/L 98-108 3477059688) CO2 TOTAL (test code = 24 mmol/L 23-31 9739968957) AGAP (test code = 2-16 6086024030) BUN (test code = 14 mg/dL 7-23 4103996315) GLUCOSE (test code = 201 mg/dL 70-110 H 7716082969) CREATININE (test code = 0.83 mg/dL 0.60-1.25 4987182765) CALCIUM (test code = 9.4 mg/dL 8.6-10.6 3224886263) eGFR (test code = mL/min/1.73m2 9108126254) CLIFF (test code = CLIFF) Association of Glomerular Filtration Rate (GFR) and Staging of Kidney Disease* + --+ --+ ------+| GFR (mL/min/1.73 m2) ?| With Kidney Damage ?| ?Without Kidney Damage+ --------+ --------+ +| ?>90 ?| ?Stage one ?| ? Normal ?+ ---+ ---+ -------+| ?60-89 ?| ?Stage two ?| ? Decreased GFR ? + --+ --+ ------+| ?30-59 ?| ?Stage three ?| ? Stage three ? + --+ --+ ------+| ?15-29 ?| ?Stage four ? | ? Stage four ?+ ---+ ---+ -------+| ?<15 (or dialysis) ? ?| ?Stage five ? | ? Stage five ?+ ---+ ---+ -------+ *Each stage assumes the associated GFR level has been in effect for at least three months. ?Stages 1 to 5, with or without kidney disease, indicate chronic kidney disease. Notes: Determination of stages one and two (with eGFR >59mL/min/1.73 m2) requires estimation of kidney damage for at least three months as defined by structural or functional abnormalities of the kidney, manifested by either:Pathological abnormalities or Markers of kidney damage (including abnormalities in the composition of the blood or urine or abnormalities in imaging tests). Lab Interpretation Abnormal (test code = 94387-1) [facility] GLUCOSE (AUTOMATED)2021-03-02 04:41:03 Test Item Value Reference Range Interpretation Comments POCT GLU (test code = 2820189975) 165 mg/dL 70-110 H Lab Interpretation (test code = Abnormal 01317-7) [facility] GLUCOSE (AUTOMATED)2021-03-01 21:40:23 Test Item Value Reference Range Interpretation Comments POCT GLU (test code = 3736557915) 338 mg/dL 70-110 H Lab Interpretation (test code = Abnormal 39109-5) [facility] GLUCOSE (AUTOMATED)2021-03-01 21:15:20 Test Item Value Reference Range Interpretation Comments POCT GLU (test code = 7387332991) 308 mg/dL 70-110 H Lab Interpretation (test code = Abnormal 95593-1) [facility] [id number] 20:59:15 Test Item Value Reference Range Interpretation Comments TSH (test code = See_Comment H [Automated message] 0967206595) The system [employer] generated this result transmitted ref erence range: 0.45 - 4 .70 mIU/L. The refe rence range was not u sed to interpret this result as normal/abnor mal. Lab Interpretation (test Abnormal code = 15931-2) [facility] Center[facility]YLATED HEMOGLOBIN (A1C)2021-03-01 20:50:54 Test Item Value Reference Range Interpretation Comments HGB A1C (test code = 8.6 % 4.0-5.7 H 4548-4) CLIFF (test code = CLIFF) Reference RangesNormal: <5.7%Prediabetes: 5.7 - 6.4%Diabetes: > 6.5% Lab Interpretation (test Abnormal code = 47739-8) [facility] GLUCOSE (AUTOMATED)2021-03-01 18:26:29 Test Item Value Reference Range Interpretation Comments POCT GLU (test code = 6804691920) 177 mg/dL 70-110 H Lab Interpretation (test code = Abnormal 40737-3) [facility] GLUCOSE (AUTOMATED)2021-03-01 16:52:10 Test Item Value Reference Range Interpretation Comments POCT GLU (test code = 8924565559) 112 mg/dL 70-110 H Lab Interpretation (test code = Abnormal 04402-3) [facility] GLUCOSE (AUTOMATED)2021-03-01 16:52:10 Test Item Value Reference Range Interpretation Comments POCT GLU (test code = 2663806766) 154 mg/dL 70-110 H Lab Interpretation (test code = Abnormal 54014-2) [facility]2021-10-25 16:14:23 Test Item Value Reference Range Interpretation Comments MAGNESIUM (test code = 7203912526) 1.8 mg/dL 1.7-2.4 Lab Interpretation (test code = Normal 89766-4) [facility]OLIC PANEL (95901)2021-03-01 16:14:02 Test Item Value Reference Range Interpretation Comments NA (test code = 136 mmol/L 135-145 2193519182) K (test code = 4.1 mmol/L 3.5-5.0 7920654615) CL (test code = 105 mmol/L 98-108 7179692599) CO2 TOTAL (test code = 28 mmol/L 23-31 9359624330) AGAP (test code = 2-16 4506397464) BUN (test code = 14 mg/dL 7-23 5005346869) GLUCOSE (test code = 187 mg/dL 70-110 H 0757554593) CREATININE (test code = 0.85 mg/dL 0.60-1.25 2265211378) TOTAL BILI (test code = 0.6 mg/dL 0.1-1.9 8651307362) CALCIUM (test code = 9.0 mg/dL 8.6-10.6 6161392753) T PROTEIN (test code = 7.2 g/dL 6.3-8.2 4828681346) ALBUMIN (test code = 3.9 g/dL 3.5-5.0 7698547584) ALK PHOS (test code = 77 U/L 34-122 6914063029) ALTv (test code = 19 U/L 5-50 2-6) AST(SGOT) (test code = 25 U/L 13-40 2645032046) eGFR (test code = mL/min/1.73m2 1275097742) CLIFF (test code = CLIFF) Association of Glomerular Filtration Rate (GFR) and Staging of Kidney Disease* + --+ --+ ------+| GFR (mL/min/1.73 m2) ?| With Kidney Damage ?| ?Without Kidney Damage+ --------+ --------+ +| ?>90 ?| ?Stage one ?| ? Normal ?+ ---+ ---+ -------+| ?60-89 ?| ?Stage two ?| ? Decreased GFR ? + --+ --+ ------+| ?30-59 ?| ?Stage three ?| ? Stage three ? + --+ --+ ------+| ?15-29 ?| ?Stage four ? | ? Stage four ?+ ---+ ---+ -------+| ?<15 (or dialysis) ? ?| ?Stage five ? | ? Stage five ?+ ---+ ---+ -------+ *Each stage assumes the associated GFR level has been in effect for at least three months. ?Stages 1 to 5, with or without kidney disease, indicate chronic kidney disease. Notes: Determination of stages one and two (with eGFR >59mL/min/1.73 m2) requires estimation of kidney damage for at least three months as defined by structural or functional abnormalities of the kidney, manifested by either:Pathological abnormalities or Markers of kidney damage (including abnormalities in the composition of the blood or urine or abnormalities in imaging tests). Lab Interpretation Abnormal (test code = 43042-1) [facility] WITH [id number] 15:58:21 Test Item Value Reference Range Interpretation Comments WBC (test code = See_Comment H [Automated 6690-2) message] The sy stem which generated this result transmitted reference range : 4.20 - 10.70 10*3/?L. The reference range was not used to interpret this result as normal/abnormal . RBC (test code = See_Comment [Automated 789-8) message] The sy stem which generated this result transmitted reference range : 4.26 - 5.52 10*6/?L. The reference range was not used to interpret this result as normal/abnormal . HGB (test code = 13.7 g/dL 12.2-16.4 718-7) HCT (test code = 40.4 % 38.4-49.3 4544-3) MCV (test code = 88.4 fL 81.7-95.6 787-2) MCH (test code = 30.0 pg 26.1-32.7 785-6) MCHC (test code = 33.9 g/dL 31.2-35.0 786-4) RDW-SD (test code = 41.1 fL 38.5-51.6 58586-5) RDW-CV (test code = 12.7 % 12.1-15.4 788-0) PLT (test code = See_Comment H [Automated 777-3) message] The sy stem which generated this result transmitted reference range : 150 - 328 10*3/ ?L. The reference r ambrosio was not used to interpret this result as normal/abnormal . MPV (test code = 9.6 fL 9.8-13.0 L 77345-9) NRBC/100 WBC (test See_Comment [Automat ed code = 0984139494) message] The system which generated this result transmitted reference range : 0.0 - 10.0 /100 WBCs. The refer ence range was not u sed to interpret th is result as normal/abnormal . NRBC x10^3 (test code <0.01 See_Comment [Auto mated = 6938705307) message] The s ystem which generated this result transmitted reference range : 10*3/?L. The reference range was not used to interpret this result as normal/abnormal . GRAN MAT (NEUT) % 57.2 % (test code = 770-8) IMM GRAN % (test code 0.50 % = 0586825208) LYMPH % (test code = 23.8 % 736-9) MONO % (test code = 8.8 % 5905-5) EOS % (test code = 8.4 % 713-8) BASO % (test code = 1.3 % 706-2) GRAN MAT x10^3(ANC) 6.36 10*3/uL 1.99-6.95 (test code = 5226629672) IMM GRAN x10^3 (test 0.05 10*3/uL 0.00-0.06 code = 0097247801) LYMPH x10^3 (test code 2.64 10*3/uL 1.09-3.23 = 731-0) MONO x10^3 (test code 0.98 10*3/uL 0.36-1.02 = 742-7) EOS x10^3 (test code = 0.93 10*3/uL 0.06-0.53 H 711-2) BASO x10^3 (test code 0.14 10*3/uL 0.01-0.09 H = 704-7) Lab Interpretation Abnormal (test code = 77510-6) [facility] CenterBLOOD [id number] 06:00:00 Test Item Value Reference Range Interpretation Comments CULTURE (BEAKER) (test No growth in 5 days code = 1095) URINE [id number] 10:25:00 Test Item Value Reference Range Interpretation Comments CULTURE (BEAKER) (test code = 1095) No growth POCT-GLUCOSE [id number] 17:10:00 Test Item Value Reference Range Interpretation Comments POC-GLUCOSE METER 232 mg/dL 70-110 H TESTED AT [facility] 67[address] (BEAKER) (test code = [place] 1538) [address] CT, CTANGIO [id number] 16:41:00CTV pleaseFINAL REPORT CTV brain 02/13/2018 4:35 PM CLINICAL INDICATION: Stroke COMPARISON: MRI brain 02/12/2018 TECHNIQUE: Noncontrast CT images of head were obtained. Subsequently Axial contrast-enhanced CT venographic images of the brain were obtained, from which three-dimensional reconstructed images were created. Additional imaging series were created on an independent workstation usingmaximum intensity projection and volume rendered technique. This examination was performed accordingto our departmental dose optimization program, which includes automated exposure control, adjustmentof the mA and/or kV according to patient [...] complete opacification of the partially visualized right maxi llary sinus. The tympanomastoid cavities are well aerated. The skull is intact. IMPRESSION: 1. No intracranial hemorrhage or mass effect.2. Unremarkable intracranial CTV.3. Sinusitis. Signed: Blaise Sky Verified Date/Time: 02/13/2018 16:41:24 Reading Location: [facility] Radiology Reading Room -GLUCOSE [id number] 13:07:00 Test Item Value Reference Range Interpretation Comments POC-GLUCOSE METER 311 mg/dL 70-110 H Notified Gareth Coronado MD/TESTED ([place]ORIA) (test code = AT [facility] [address] [facility] 1538) [facility] 7[address] 0 IRON, TIBC, % SAT. (WITHOUT FERRITIN)2018-02-13 10:10:00 Test Item Value Reference Range Interpretation Comments IRON (GLORIA) (test code = 547) 49 ug/dL 40-160 TOTAL IRON BINDING CAPACITY 231 ug/dL 250-450 L (BEAKER) (test code = 769) IRON % SATURATION (2) (BEAKER) 21 % 20-55 (test code = 2590) POCT-GLUCOSE [id number] 08:50:00 Test Item Value Reference Range Interpretation Comments POC-GLUCOSE METER 348 mg/dL 70-110 H Notified R N MD/TESTED (BEAKER) (test code = AT [facility] [address] [facility] 2359) [facility] [address] 0 BASIC METABOLIC [id number] 08:31:00 Test Item Value Reference Range Interpretation [...] NOT APPLICABLE FOR DIALYSIS PATIEN TS. LIPID [id number] 08:31:00 Test Item Value Reference Range Interpretation Comments TRIGLYCERIDES (BEAKER) 189 mg/dL Speci men slightly (test code = 540) hemolyzed CHOLESTEROL (BEAKER) 265 mg/dL Specime n slightly (test code = 631) hemolyzed HDL CHOLESTEROL (BEAKER) 46 mg/dL (test code = 976) LDL CHOLESTEROL 181 mg/dL CALCULATED (BEAKER) (test code = 633) Triglyceride Reference Range: Low Risk <150 Borderline 150-199 High Risk 200- 499 Very High Risk >=500Cholesterol Reference Range: Low Risk <200 Borderline 200-239 High Risk >240HDL Cholesterol Reference Range: Low Risk >=60 High Risk <40LDL Cholesterol Reference Range: Optimal <100 Near Optimal 100-129 Borderline 130-159 High 160-189 Very High >=190IMMATURE RETICULOCYTE [id number] 08:16:00 Test Item Value Reference Range Interpretation Comments IMMATURE RETIC FRACTION (BEAKER) 8.600 % 2.300-13.400 (test code = 1447) RETICULOCYTE COUNT PCT (BEAKER) (test 1.4 % 0.5-1.8 code = 575) CBC W/PLT COUNT & AUTO [id number] 08:16:00 Test Item Value Reference Range Interpretation [...] PERCENT (BEAKER) (test code = 2801) POCT-GLUCOSE [id number] 21:18:00 Test Item Value Reference Range Interpretation Comments POC-GLUCOSE METER 226 mg/dL 70-110 H TESTED AT [facility] 67[address] (BEAKER) (test code = [place] 1538) [address] MR, BRAIN, WITHOUT [id number] 19:43:00FINAL REPORT MRI brain without contrast INDICATION: [...] thrombus cannot be excluded. The major proximal [place] of [place] flow voids are maintained. Mild [...] 1. No evidence of acute infarct, hemorrhage, orhydrocephalus. 2. Right transverse and sigmoid sinus signal changes, possibly slow flow. Intravascular thrombus cannot be excluded, however. Advise follow up MRV as clinically warranted. 3. Symmetricalappearing hippocampal formations. 4. Multifocal sinus mucosal disease. Consider ENT follow up. Signed: Marjan, Visveshwar MDReport Verified Date/Time: 02/12/2018 19:43:32 Reading Location: [facility] Radiology Reading Room -GLUCOSE [id number] 19:01:00 Test Item Value Reference Range Interpretation Comments POC-GLUCOSE METER 362 mg/dL 70-110 H TESTED AT [facility] 67 ([place]ORIA) (test code = [place] 1538) [address] EEG AWAKE AND [id number] 17:46:00Reason for exam:->SeizureShould this be performed at the bedside?->YesCH[facility] EEG REPORTDATE OF TEST: 51-0-6415SQVZ OF REPORT: [id number]: [id number]: [id number] time: 14:04Stop time: 14:24ICD-10: R56.9CPT Code: 31343BLSLRHU: 40 y old 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, [...] consistent with moderate degree of encephalopathy of non- specific etiology (hypoxia, infectious, toxic/metabolic). AnEEG without epileptiform discharges does not exclude the possibility of epilepsy. If the clinical suspicion of epilepsy remains, consider additional EEG recordings. Vicente Chourasia MDNeurophysiology FellowAttending note: I personally reviewed this EEG record in its entirety and I agree with the details of this report.Queenie Loco MD, PhDClinical Neurophysiology/Epilepsy AttendingCHI [facility] POCT-GLUCOSE [id number] 15:33:00 Test Item Value Reference Range Interpretation Comments POC-GLUCOSE METER 213 mg/dL 70-110 H TESTED AT [facility] [address] (BEAKER) ([facility] [place] [place] 1538) [address] TSH/FREE T4 IF [id number] 09:35:00 Test Item Value Reference Range Interpretation Comments THYROID STIMULATING HORMONE 4.03 uIU/mL 0.35-4.94 (BEAKER) (test code = 772) HEMOGLOBIN [id number] 08:47:00 Test Item Value Reference Range Interpretation Comments HEMOGLOBIN A1C (BEAKER) (test code = 6.5 % 4.3-6.1 H 368) POCT-GLUCOSE [id number] 07:55:00 Test Item Value Reference Range Interpretation Comments POC-GLUCOSE METER 219 mg/dL 70-110 H TESTED AT [facility] [address] (BEAKER) (test code = [place] 1538) [address] [id number] 05:00:00 Test Item Value Reference Range Interpretation Comments MAGNESIUM (BEAKER) (test code = 2.1 mg/dL 1.6-2.6 627) BASIC METABOLIC [id number] 05:00:00 Test Item Value Reference Range Interpretation [...] PATIEN TS. CBC W/PLT COUNT & AUTO [id number] 04:40:00 Test Item Value Reference Range Interpretation [...] PERCENT (BEAKER) (test code = 2801) POCT-GLUCOSE [id number] 04:31:00 Test Item Value Reference Range Interpretation Comments POC-GLUCOSE METER 183 mg/dL 70-110 H TESTED AT [place] [address] ([facility]) (test code = [facility] Gareth [place] [address]) [address] RAD, ABDOMEN/KUB, 1 VIEW [id number] 01:33:00Reason for exam:->Abdominal distension, obtundationFINAL REPORT CLINICAL [...] in the pelvis. Signed: Wilfredo De Leon [facility] Verified Date/Time: 02/12/2018 01:33:19 Reading Location: [address] Reading Room POCT-GLUCOSE METER 2018-02-12 00:49:00 Test Item Value Reference Range Interpretation Comments POC-GLUCOSE METER 346 mg/dL 70-110 H TESTED AT [facility] [address] ([facility]) (test code = [facility] Gareth [facility] 1538) [address] CBC W/PLT COUNT & AUTO [id number] 00:44:00 Test Item Value Reference Range Interpretation [...] (test code = 2801) RAPID DRUG SCREEN, [id number] 00:35:00 Test Item Value Reference Range Interpretation [...] situations. Chain of custody not maintained. Some dsbp-qnn-oymwgmq medications, as well as adulterants, may cause inaccurate results. Clinical correlation should be applied. Jazz comprehensive drug screen or confirmation of a detected drug may be performed upon request.TROPONIN I 2018-02-12 00:15:00 Test Item Value Reference Range Interpretation [...] acute neurological disease, and persistent tachyarrhythmia.COMPREHENSIVE METABOLIC [id number] 00:09:00 Test Item Value Reference Range Interpretation [...] APPLICABLE FOR DIALYSIS PATIEN TS. URINALYSIS W/ [id number] 00:06:00 Test Item Value Reference Range Interpretation [...] = 2795) RAD, CHEST, 1 VIEW, NON [id number] 23:11:00Reason for exam:->Obtundation with coarse respirations, baselineShould this be performed [facility] the [facility]?->YesFINAL REPORT RAD, CHEST, 1 VIEW, NON DEPT INDICATION: Obtundation with coarse respirations, baseline COMPARISON: None. FINDINGS: Portable frontal view of the chest. IMPRESSION: Support Lines: None. Lungs and pleura: Clear lungs. No pneumothorax.Heart and mediastinum: Unremarkable.Additional findings: Fluid and gaseous distention of the gastric lumen. Signed: JR Lozano Robert MDReport Verified Date/Time: 02/11/2018 23:11:04 Reading Location: [address] Reading Room "
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
[2022-03-06 20:31] VITALS: BP 108/85; TEMP 97.6; O2SAT 97
== END 2022-03-06 21:25 | disposition left against medical advice (07) ==
LOC: ER 18:15
DX: Z53.21 Procedure and treatment not carried out due to patient leaving prior to being seen by health care provider (principal)
CPT/HCPCS: 99282

== ENCOUNTER 2022-03-22 21:28 | Observation (INO) | payer SELFPAY ==
--- OUTSIDE RECORDS SUMMARY | 2022-03-22 21:34 | XMS REPORT | Continuity of Care Document ---
:1975 Author Organization [facility] t Address [address] [place] [address] Care Team Providers Name Role Phone VernonDale Kari Primary Care Physician BELINDA CONTRERAS Attending Clinician Unavailable Belinda Mitchell Attending Clinician Patricia Rodriguez LVN Attending Clinician JORGE WHITE Attending Clinician Unavailable Lorraine Trevizo MD Attending Clinician Jorge White MD Attending Clinician Velasquez Alexander MD Attending Clinician [phone] Tor Montano MD Attending Clinician ANDREI MALHOTRA Attending Clinician Unavailable Akira Winter MD Attending Clinician Matt Ford MD Attending Clinician Ryan Cardozo MD Attending Clinician TOR MONTANO Attending Clinician Unavailable MARIA EUGENIA MANRIQUE Attending Clinician Unavailable JORGE WHITE Admitting Clinician Unavailable Jorge White MD Admitting Clinician Matt Ford MD Admitting Clinician MARIA EUGENIA MANRIQUE Admitting Clinician Unavailable Payers Payer Name Policy Type Policy Number Effective Date Expiration Date Aminata patrick [facility] [id number] 2020 CORRECTION 00:00:00 MEDICAID SSI PENDING 2020 PENDING 00:00:00 Problems Condition Condition Condition Status Onset Resolution Last Treating Co mments Source Name Details Category Date Date Treatment Clinician Date Closed Closed Disease Active 2021-05 [facility] right hip right hip 0-30 [place] 00 Medical encounter encounter Bran ch Hypothyroi Hypothyroi Disease Active 2020-05 U nivers dism due dism due 0-26 ity of to to 00:00: [place] Salma' Salma' 00 Me dical s s Branch thyroiditi thyroiditi s s Hypoglycem Hypoglycem Disease Active 2020-05 U nivers ia ia 0-25 ity of 00:00: [place] 00 Medical Branch Diabetic Diabetic Disease Active Unive rs ketoacidos ketoacidos 6-20 it y of is with is with 00:00: [place] coma coma 00 Medical associated associated Br anch with type with type 2 diabetes 2 diabetes mellitus mellitus 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 [facility] protein-[facility] 0[facility]10 [facility] lizbet somers 00:00: Medical malnutriti malnutriti 00 Ce nter on on Hyperchole Hyperchole Disease Active 2017-[address] [facility] Thyroid Thyroid Disease Active 2017-[address] [facility] disease disease [facility] Leukocytos Leukocytos Disease Active 2017-[address] is is 0[facility] Anemia Anemia Disease Active 2017-[address] [facility] 0[facility] Provoked Provoked Disease Active 2017[facility] Acute Acute Disease [...] disorder disorder 00:00: Medica l with with Center status status epilepticu epilepticu s s Type 1 Type 1 Disease Active [facility] diabetes diabetes ity of mellitus mellitus [place] with with Medical hypoglycem hypoglycem Br anch ia ia Allergies, Adverse Reactions, Alerts Allergy Allergy Status Severity Reaction(s) Onset Inactive Treating Comm ents Source Name Type Date Date Clinician TRAMADOL DRUG Active N/V Univers INGREDI 11-03 ity of 00:00: [address] Tramadol Propensi Active Nausea Univer s ty to and/or 11-03 ity of adverse Vomiting 00:00: [place] reaction [address] [place] [address] s Branch Social History Social Habit Start Date Stop Date Quantity Comments Source History of Cigarette Smoker Universi ty of tobacco use [facility] Exposure to 2022-03-08 2022-03-18 Not sure University of SARS-CoV-2 00:00:00 10:46:00 [facility] (event) [place] Alcohol intake 2022-03-18 2022-03-18 Current drinker Unive rsity of 00:00:00 00:00:00 of alcohol [facility]ly [facility] (finding) [place] Alcohol Comment 2022-03-07 2022-03-07 socially Universit y of 00:00:00 00:00:00 [facility] Tobacco use and 2018-02-13 2018-02-[address] [facility] exposure 00:00:00 00:00:00 [facility] Center Sex Assigned At [address] [facility] 00:[facility] Smoking Status Start Date Stop Date Source Smokes tobacco daily 2022-03-06 00:00:00 Univers ity of [facility] Medications Ordered Filled Start Stop Current Ordering Indication Dosage Frequency Signature Comments Components Source Medication Medication Date Date Medication? Clinician (SIG) Name Name acetaminoph 2021-05 Yes 4647 1{tbl} Take 1 Un lucila en-codeine 1-11 tablet by ity of (TYLENOL-CO 00:00: mouth [place] DEINE #3) 00 every 4 Medical 300-30 mg (four) Branch tablet hours as needed for Pain (scale 4-6) or Pain (scale 7-10). Indication s: acute pain acetaminoph 2021-05 Yes 4647 1{tbl} Take 1 Un [place] en-codeine 1-11 tablet by ity of (TYLENOL-CO 00:00: mouth [place] DEINE #3) 00 every 4 Medical 300-30 mg (four) Branch tablet hours as needed for Pain (scale 4-6) or Pain (scale 7-10). Indication s: acute pain insulin 2021-05 Yes 10U 10 Units, Unive rs lispro 1-02 Subcutaneo ity of (human) 17:00: us, TID [place] (HumaLOG 00 MEALS, Medical U-100) First dose Branch injection on Mon 10 Units 03/09/22 at 1200, Until Discontinu ed, Routine insulin 2021-05 Yes 10U inject 10 Unive rs aspart 1-02 Units ity of RAPID 100 15:53: under the [place] unit/mL 23 skin 3 Medical injection (three) Branch times daily with meals. gemfibroziL 2021-05 Yes 600mg Take 600 U nivers 600 mg 1-02 mg by ity of tablet 15:53: mouth at [place] [address] bedtime. Medical Branch insulin 2021-05 Yes 30U inject 30 Unive rs detemir 1-02 Units ity of U-100 100 15:53: under the [place] unit/mL 23 skin at Medical injection bedtime. Branch gabapentin 2021-05 Yes 100mg Take 100 Un [place] 100 mg 1-02 mg by ity of capsule 15:53: mouth in [place] 23 the Medical morning. Branch Thyroid, 2021-05 Yes 120mg Take 120 Univ ers Pork, 1-02 mg by ity of (ARMOUR 15:53: mouth [place] THYROID) 23 daily. Medical 120 mg Branch tablet insulin 2021-05 Yes 10U inject 10 Unive rs aspart 1-02 Units ity of RAPID 100 15:53: under the [place] unit/mL 23 skin 3 Medical injection (three) Branch times daily with meals. gemfibroziL 2021-05 Yes 600mg Take 600 U nivers 600 mg 1-02 mg by ity of tablet 15:53: mouth at [place] 23 bedtime. Medical Branch insulin 2021-05 Yes 30U inject 30 Unive rs detemir 1-02 Units ity of U-100 100 15:53: under the [place] unit/mL 23 skin at Medical injection bedtime. Branch gabapentin 2021-05 Yes 100mg Take 100 Un [place] 100 mg 1-02 mg by ity of capsule 15:53: mouth in [place] 23 the Medical morning. Branch Thyroid, 2021-05 Yes 120mg Take 120 Univ ers P[place], 1-02 mg by ity of (ARMOUR 15:53: mouth [place] THYROID) 23 daily. Medical 120 mg Branch tablet insulin 2021-05 Yes 10U inject 10 Unive rs aspart 1-02 Units ity of RAPID 100 15:53: under the [place] unit/mL 23 skin 3 Medical injection (three) Branch times daily with meals. gemfibroziL 2021-05 Yes 600mg Take 600 U nivers 600 mg 1-02 mg by ity of tablet 15:53: mouth at [place] 23 bedtime. Medical Branch insulin 2021-05 Yes 30U inject 30 Unive rs detemir 1-02 Units ity of U-100 100 15:53: under the [place] unit/mL 23 skin at Medical injection bedtime. Branch gabapentin 2021-05 Yes 100mg Take 100 Un [place] 100 mg 1-02 mg by ity of capsule 15:53: mouth in [place] 23 the Medical morning. Branch Thyroid, 2021-05 Yes 120mg Take 120 Univ ers Pork, 1-02 mg by ity of (ARMOUR 15:53: mouth [place] THYROID) 23 daily. Medical 120 mg Branch tablet insulin 2021-05 Yes 10U inject 10 Unive rs aspart 1-02 Units ity of RAPID 100 15:53: under the [place] unit/mL 23 skin 3 Medical injection (three) Branch times daily with meals. gemfibroziL 2021-05 Yes 600mg Take 600 U nivers 600 mg 1-02 mg by ity of tablet 15:53: mouth at [place] 23 bedtime. Medical Branch insulin 2021-05 Yes 30U inject 30 Unive rs detemir 1-02 Units ity of U-100 100 15:53: under the [place] unit/mL 23 skin at Medical injection bedtime. Branch gabapentin 2021-05 Yes 100mg Take 100 Un [place] 100 mg 1-02 mg by ity of capsule 15:53: mouth in [place] 23 the Medical morning. Branch Thyroid, 2021-05 Yes 120mg Take 120 Univ ers Pork, 1-02 mg by ity of (ARMOUR 15:53: mouth [place] THYROID) 23 daily. Medical 120 mg Branch tablet lisinopriL 2021-05- No 20mg Take 20 mg Univers 20 mg 05-09 by mouth ity of tablet 12:42: 00:00 in the [place] 38 :00 morning. Medical Branch Sliding 2021-05 Yes Subcutaneo Univ ers Scale 02 us, TID ity of Insulin - 03:15: MEALS+HS, [place] Lispro 00 First dose Medical (HumaLOG) + (after Branch Fsbg last Testing modificati on) on Mon03/08/22 at 2215, Until Discontinu ed, Routine insulin 2021-05 Yes 20U 20 Units, Unive rs glargine 05-09 Subcutaneo ity o f (LANTUS 02:00: us, [facility], [place] U-100) 00 First dose Medical injection on [facility] 20 Units 03/08/22 at 2100, Until Discontinu ed, Routine insulin 2021-05 Yes 20U 20 Units, Unive rs glargine 05-09 Subcutaneo ity o f (LANTUS 02:00: us, [facility], [place] U-100) 00 First dose Medical injection on [facility] 20 Units 03/08/22 at 2100, Until Discontinu ed, Routine aspirin 2021-05- Yes [id number] 325mg Take 1 U nivers E.C. 325 mg 05-09 tablet by it y of EC tablet 00:00: 05:59 mouth in [place] 00 :00 the Medical morning Branch and 1 tablet in the evening. Take with meals. Do all this for 26 days. aspirin 2021-05- Yes [id number] 325mg Take 1 U nivers E.C. 325 mg 05-09 tablet by it y of EC tablet 00:00: 05:59 mouth in [place] 00 :00 the Medical morning Branch and 1 tablet in the evening. Take with meals. Do all this for 26 days. aspirin 2021-05- Yes [id number] 325mg Take 1 U nivers E.C. 325 mg 05-09 tablet by it y of EC tablet 00:00: 05:59 mouth in [place] 00 :00 the Medical morning Branch and 1 tablet in the evening. Take with meals. Do all this for 26 days. aspirin 2021-05- Yes [id number] 325mg Take 1 U nivers E.C. 325 mg 05-09 tablet by it y of EC tablet 00:00: 05:59 mouth in [place] 00 :00 the Medical morning Branch and 1 tablet in the evening. Take with meals. Do all this for 26 days. HYDROcodone 2021-05- Yes 4647 1{tbl} Take 1 U nivers -acetaminop - 11-10 tablet by it y of hen 5-325 00:00: 05:59 mouth [place] mg tablet 00 :00 every 8 Medical (eight) Branch hours as needed for Pain (scale 4-6) for up to 7 days. Indication s: acute pain HYDROcodone 2021-05- Yes 4647 1{tbl} Take 1 U nivers -acetaminop - 11-10 tablet by it y of hen 5-325 00:00: 05:59 mouth [place] mg tablet 00 :00 every 8 Medical (eight) Branch hours as needed for Pain (scale 4-6) for up to 7 days. Indication s: acute pain HYDROcodone 2021-05 Yes 1{tbl} 1 tablet, Univers -acetaminop 1-01 Oral, ity of hen (NORCO 18:28: Q6HPRN, [place] 5) 5-325 mg 34 Starting Medi rogers tablet 1 on Tue Branch tablet 03/08/22 at 1328, Until Discontinu ed, Routine, Pain (scale 4-6) HYDROcodone 2021-05 Yes 1{tbl} 1 tablet, Univers -acetaminop 1-01 Oral, ity of hen (NORCO 18:28: Q6HPRN, [place] 5) 5-325 mg 34 Starting Medi rogers tablet 1 on Tue Branch tablet 03/08/22 at 1328, Until Discontinu ed, Routine, Pain (scale 4-6) insulin 2021-05- No 10U 10 Units, Univ ers lispro 05-08 Subcutaneo ity of (human) 18:15: 17:36 us, ONCE, [place] (HumaLOG 00 :00 1 dose, On Medic al U-100) [facility] Branch injection 03/08/22 at 10 Units 1315, Routine thyroid 2021-05 Yes 120mg 120 mg, Univer s (ARMOUR 05-08 Oral, ity of THYROID) 11:00: QAM-0600, [place] tablet 120 00 First dose Med ical mg on [facility] Branch 03/08/22 at 0600, Until Discontinu ed thyroid 2021-05 Yes 120mg 120 mg, Univer s (ARMOUR 05-08 Oral, ity of THYROID) 11:00: QAM-0600, [place] tablet 120 00 First dose Med ical mg on [facility] Branch 03/08/22 at 0600, Until Discontinu ed ketorolac 2021-05- No 15mg 15 mg, Unive rs (TORADOL) 05-08 Slow IV ity of injection 02:30: 02:19 Push, [place] 15 mg 00 :00 ONCE, 1 Medical dose, On Branch [facility] 03/07/22 at 2130, Routine gemfibroziL 2021-05 Yes 600mg 600 mg, Un lucila (LOPID) 05-08 Oral, QHS, ity of tablet 600 02:00: First dose [place] mg 00 on [facility] 03/07/22 Branch at 2100, Until Discontinu ed, Routine gemfibroziL 2021-05 Yes 600mg 600 mg, Un lucila (LOPID) 05-08 Oral, QHS, ity of tablet 600 02:00: First dose [place] mg 00 on [facility] 03/07/22 Branch at 2100, Until Discontinu ed, Routine ceFAZolin 2021-05- No 1g 1 g, IV Univ ers (ANCEF) 1 g 03-07 Piggyback, i ty of in NaCl 23:00: 23:34 ONCE, 1 [place] 0.9% (NS) 00 :00 dose, On Medica l 50 mL [facility] MINI-BAG 03/07/22 at 1800, Administer over 30 Minutes, 50 mL
Reas on for Anti-Infec tive: Surgical Prophylaxi s
Surgi rogers Prophylaxi s: Orthopaedi c
Durat ion of therapy: within 24 hours of surgery enoxaparin 2021-05 Yes 40mg 40 mg, Unive rs (LOVENOX) 0-31 Subcutaneo ity of injection 22:00: [place], DAILY, [place] 40 mg 00 First dose Medical on Mon03/07/22 at 1700, Until Discontinu ed, Routine enoxaparin 2021-05 Yes 40mg 40 mg, Unive rs (LOVENOX) 0-31 Subcutaneo ity of injection 22:00: [place], DAILY, [place] 40 mg 00 First dose Medical on Mon03/07/22 at 1700, Until Discontinu ed, Routine aspirin 2021-05- Yes 325mg 325 mg, Unive rs E.C. 004-04 Oral, BID ity of (ECOTRIN) 22:00: 22:59 MEALS, 56 [place] tablet 325 00 :00 doses, Medical mg First dose Branch on Mon03/07/22 at 1700, Last dose on Mon04/04/22 at 0800, Routine aspirin 2021-05- Yes 325mg 325 mg, Unive rs E.C. 04-04 Oral, BID ity of (ECOTRIN) 22:00: 22:59 MEALS, 56 [place] tablet 325 00 :00 doses, Medical mg First dose Branch on Mon03/07/22 at 1700, Last dose on Mon04/04/22 at 0800, Routine lactated 2021-05 Yes 1000mL at 75 Univer s ringers IV 0-31 mL/hr, ity of infusion 18:00: 1,000 mL, [place] 1,000 mL 00 IV Medical Infusion, Branch CONTINUOUS , Starting on Mon03/07/22 at 1300, Until Discontinu ed, Routine, PACU ondansetron 2021-05 Yes 4mg 4 mg, Slow Univers (ZOFRAN 0-31 IV Push, ity of (PF)) 17:55: PRN, 1 [place] injection 4 44 dose, Medical mg Starting Branch on Mon03/07/22 at 1255, Until Discontinu ed, Routine, Nausea and Vomiting (N/V), PACU ondansetron 2021-05 Yes 4mg 4 mg, Slow Univers (ZOFRAN 0-31 IV Push, ity of (PF)) 17:55: PRN, 1 [place] injection 4 44 dose, Medical mg Starting Branch on Mon03/07/22 at 1255, Until Discontinu ed, Routine, Nausea and Vomiting (N/V), PACU sugammadex 2021-05- No IV Push, Un [place]ila (BRIDION) 0-31 03-07 ONCE INTRA ity of injection 17:38: 17:55 PROCEDURE, [place] 00 :24 Starting Medical on Mon Branch 03/07/22 at 1238, Until Mon03/07/22 at 1255, Routine, Intra-op morpHINE (2 2021-05 Yes 2mg 2 mg, Slow Univers mg/mL) 0-31 IV Push, ity of injection 2 17:14: Q4HPRN, [place] mg 02 Starting Medical on Mon Branch 03/07/22 at 1214, Until Discontinu ed, Routine, For pain unrelieved by oral medication s, or if patient is unable to tolerate oral pain medication . morpHINE (2021-05 Yes 2mg 2 mg, Slow Univers mg/mL) 0-31 IV Push, ity of injection 2 17:14: Q4HPRN, [place] mg 02 Starting Medical on Mon Branch 03/07/22 at 1214, Until Discontinu ed, Routine, For pain unrelieved by oral medication s, or if patient is unable to tolerate oral pain medication . ondansetron 2021-05 Yes 4mg 4 mg, Unive rs (ZOFRAN-ODT 0-31 Oral, ity of ) 17:11: Q8HPRN, [place] disintegrat 32 Starting Medi rogers ing tablet on Mon Branch 4 mg 03/07/22 at 1211, Until Discontinu ed, Routine, Nausea and Vomiting (N/V) ondansetron 2021-05 Yes 4mg 4 mg, Unive rs (ZOFRAN-ODT 0-31 Oral, ity of ) 17:11: Q8HPRN, [place] disintegrat 32 Starting Medi rogers ing tablet on Mon Branch 4 mg 03/07/22 at 1211, Until Discontinu ed, Routine, Nausea and Vomiting (N/V) propofoL IV 2021-05- No IV Unive rs infusion 003-07 Infusion, ity o f 16:57: 17:55 CONTINUOUS [place] 00 :24 PRN, Medical Starting Branch on Mon03/07/22 at 1157, Until Mon03/07/22 at 1255, Routine, Intra-op acetaminoph 2021-05- No IV Unive rs en ADULT 03-07 Infusion, ity o f (OFIRMEV) 16:57: 17:55 Administer [place] injection 00 :24 over 15 Medical Minutes, Branch ONCE INTRA PROCEDURE, Starting on Mon03/07/22 at 1157, Until Mon03/07/22 at 1255, Routine, Intra-op PHENYLephri 2021-05- No Slow IV Un lucila ne 1000 03-07 Push, ONCE ity o f mcg/10 mL 16:52: 17:55 INTRA [place] in 0.9% 00 :24 PROCEDURE, Medica l NaCl Starting Branch syringe on Mon03/07/22 at 1152, Until Mon03/07/22 at 1255, Routine, Intra-op ondansetron 2021-05- No Slow IV Un lucila (ZOFRAN 03-07 Push, ONCE ity o f (PF)) 16:05: 17:55 INTRA [place] injection 00 :24 PROCEDURE, Medi rogers Starting Branch on Mon03/07/22 at 1105, Until Mon03/07/22 at 1255, Routine, Intra-op HYDROmorphO 2021-05- No Slow IV Un lucila ne 03-07 Push, ONCE ity of (DILAUDID) 15:26: 17:55 INTRA [place] injection 00 :24 PROCEDURE, Medi rogers Starting Branch on Mon03/07/22 at 1026, Until Mon03/07/22 at 1255, Routine, Intra-op sodium 2021-05- No PRN, Univers chloride 03-07 Starting ity of 0.9 % 15:26: 17:55 on Mon [place] irrigation 00 :34 03/07/22 Medic al solution at 1026, Branch Until Mon03/07/22 at 1255, Intra-op tranexamic 2021-05- No IV Univer s acid 03-07 Piggyback, ity of (CYKLOKAPRO 15:10: 17:55 CONTINUOUS [place] N) 1,000 mg 00 :24 PRN, Medical in NaCl Starting Branch 0.9% (NS) on Mon 250 mL 03/07/22 piggyback at 1010, Until Mon03/07/22 at 1255, Administer over 60 Minutes, 250 mL, Intra-op insulin 2021-05 Yes 30U inject 30 Unive rs detemir 0-31 Units ity of U-100 100 15:01: under the [place] unit/mL 50 skin at Medical injection bedtime. Branch lisinopriL 2021-05 Yes 20mg Take 20 mg U nivers 20 mg 0-31 by mouth ity of tablet 15:01: in the [place] [id number] morning. Medical Branch gabapentin 2021-05 Yes 100mg Take 100 Un lucila 100 mg 0-31 mg by ity of capsule 15:01: mouth in [place] 50 the Medical morning. Branch Thyroid, 2021-05 Yes 120mg Take 120 Univ ers Pork, 0-31 mg by ity of (ARMOUR 15:01: mouth [place] THYROID) 50 daily. Medical 120 mg Branch tablet insulin 2021-05 Yes 30U inject 30 Unive rs detemir 0-31 Units ity of U-100 100 15:01: under the [place] unit/mL 50 skin at Medical injection bedtime. Branch lisinopriL 2021-05 Yes 20mg Take 20 mg U nivers 20 mg 0-31 by mouth ity of tablet 15:01: in the [place] [address] morning. Medical Branch gabapentin 2021-05 Yes 100mg Take 100 Un lucila 100 mg 0-31 mg by ity of capsule 15:01: mouth in [place] 50 the Medical morning. Branch Thyroid, 2021-05 Yes 120mg Take 120 Univ ers Pork, 0-31 mg by ity of (ARMOUR 15:01: mouth [place] THYROID) 50 daily. Medical 120 mg Branch tablet ceFAZolin 2021-05- No Slow IV Univ ers (ANCEF) 0-31 03-07 Push, ONCE ity o f injection 14:50: 17:55 INTRA [place] 00 :24 PROCEDURE, Medical Starting Branch on Mon03/07/22 at 0950, Until Mon03/07/22 at 1255, MARCOS, Intra-op rocuronium 2021-05- No IV Push, Un lucila (ZEMURON) 003-07 ONCE INTRA ity of injection 14:49: 17:55 PROCEDURE, [place] 00 :24 Starting Medical on [facility] Branch 03/07/22 at 0949, Until Mon03/07/22 at 1255, Routine, Intra-op lidocaine 2021-05- No Slow IV Univ ers 1% 003-07 Push, ONCE ity of (XYLOCAINE) 14:47: 17:55 INTRA [place] 100 mg/10 00 :24 PROCEDURE, Medi rogers mL (1 %) Starting Branch injection on Mon03/07/22 at 0947, Until Mon03/07/22 at 1255, Routine, Intra-op FENTanyl PF 2021-05- No Epidural, Univers (SUBLIMAZE 03-07 ONCE INTRA it y of (PF)) 14:47: 17:55 PROCEDURE, [place] injection 00 :24 Starting Medica l on [facility] 03/07/22 at 0947, Until Mon03/07/22 at 1255, Routine, Intra-op propofoL IV 2021-05- No IV Unive rs infusion 003-07 Infusion, ity o f 14:47: 17:55 ONCE INTRA [place] 00 :24 PROCEDURE, Medical Starting Branch on Mon03/07/22 at 0947, Until Mon03/07/22 at 1255, Routine, Intra-op midazolam 2021-05- No IV Push, Uni vers (VERSED) 031 ONCE INTRA ity of injection 14:41: 17:55 PROCEDURE, [place] 00 :24 Starting Medical on [facility] 03/07/22 at 0941, Until Mon03/07/22 at 1255, Routine, Intra-op lactated 2021-05- No IV Univers ringers IV 003-07 Infusion, ity of infusion 14:41: 17:55 CONTINUOUS [place] 00 :24 PRN, Medical Starting Branch on Mon03/07/22 at 0941, Until Mon03/07/22 at 1255, Routine, Intra-op NaCl 0.45% 2021-05 Yes 1000mL at 100 Uni vers (1/2NS) IV 0-31 mL/hr, ity of infusion 14:00: 1,000 mL, [place] 1,000 mL 00 IV Medical Infusion, Branch CONTINUOUS , Starting on [facility] 03/07/22 at 0900, Until Discontinu ed, Routine NaCl 0.45% 2021-05 Yes 1000mL at 100 Uni vers (1/2NS) IV 0-31 mL/hr, ity of infusion 14:00: 1,000 mL, [place] 1,000 mL 00 IV Medical Infusion, Branch CONTINUOUS , Starting on [facility] 03/07/22 at 0900, Until Discontinu ed, Routine lisinopriL 2021-05- No 5mg 5 mg, Unive rs (PRINIVIL,Z 0-31 11- Oral, ity of ESTRIL) 14:00: 13:39 DAILY, [place] tablet 5 mg 00 :00 First dose Me dical on [facility] 03/07/22 at 0900, Until Discontinu ed, Routine KCL 2021-05- No 20meq 20 mEq, Univers (KLOR-CON 0-03-07 Oral, ity of M20) tablet 13:45: 13:06 ONCE, 1 [place] 20 mEq 00 :00 dose, On Medical [facility] 03/07/22 at 0845, Routine magnesium 2021-05 Yes 400mg 400 mg, Univ ers oxide 0-31 Oral, BID, ity of (MAG-OX 13:00: First dose [place] 400) tablet 00 on [facility] Medica l 400 mg 03/07/22 Branch at 0800, Until Discontinu ed, Routine docusate 2021-05 Yes 100mg 100 mg, Unive rs (COLACE) 0-31 Oral, BID, ity o f capsule 100 13:00: First dose [place] mg 00 on [facility] 03/07/22 Branch at 0800, Until Discontinu ed, Routine Sliding 2021-05 Yes Subcutaneo Univ ers Scale 0-31 us, TID ity of Insulin - 13:00: MEALS, [place] Lispro 00 First dose Medical (HumaLOG) + on [facility] Fsbg 03/07/22 Testing at 0800, Until Discontinu ed, Routine magnesium 2021-05 Yes 400mg 400 mg, Univ ers oxide 0-31 Oral, BID, ity of (MAG-OX 13:00: First dose [place] 400) tablet 00 on [facility] Medica l 400 mg 03/07/22 Branch at 0800, Until Discontinu ed, Routine docusate 2021-05 Yes 100mg 100 mg, Unive rs (COLACE) 0-31 Oral, BID, ity o f capsule 100 13:00: First dose [place] mg 00 on [facility] Medical 03/07/22 Branch at 0800, Until Discontinu ed, Routine Sliding 2021-05- Subcutaneo Uni vers Scale 0-31 11-02 us, TID ity of Insulin - 13:00: 03:13 MEALS, [place] Lispro 00 :07 First dose Medical (HumaLOG) + on [facility] Branch Fsbg 03/07/22 Testing at 0800, Until Discontinu ed, Routine insulin 2021-05 Yes 10U inject 10 Unive rs aspart 0-31 Units ity of RAPID 100 12:15: under the [place] unit/mL 20 skin 3 Medical injection (three) Branch times daily with meals. gemfibroziL 2021-05 Yes 600mg Take 600 U nivers 600 mg 0-31 mg by ity of tablet 12:15: mouth at [place] 20 bedtime. Medical Branch insulin 2021-05 Yes 10U inject 10 Unive rs aspart 0-31 Units ity of RAPID 100 12:15: under the [place] unit/mL 20 skin 3 Medical injection (three) Branch times daily with meals. gemfibroziL 2021-05 Yes 600mg Take 600 U nivers 600 mg 0-31 mg by ity of tablet 12:15: mouth at [place] 20 bedtime. Medical Branch levothyroxi 2021-05- No 50ug 50 mcg, Un lucila ne 0-31 - Oral, ity of (SYNTHROID) 11:00: 23:00 QAM-0600, [place] tablet 50 00 :42 First dose Medi rogers mcg on [facility] Branch 03/07/22 at 0600, Until Discontinu ed, Routine morpHINE (2021-05 Yes 4mg 4 mg, Slow Univers mg/mL) 0-31 IV Push, ity of injection 4 07:23: Q4HPRN, [place] mg 08 Starting Medical on [facility] Branch 03/07/22 at 0223, Until Discontinu ed, Routine, Pain (scale 7-10) morpHINE (2021-05 Yes 4mg 4 mg, Slow Univers mg/mL) 0-31 IV Push, ity of injection 4 07:23: Q4HPRN, [place] mg 08 Starting Medical on [facility] Branch 03/07/22 at 0223, Until Discontinu ed, Routine, Pain (scale 7-10) nicotine 2021-05 Yes 1{patch 1 Patch, Un lucila (NICODERM) 0-31 } Topical, ity o f 21 mg/24 hr 07:15: Administer [place] patch 1 00 over 24 Medical Patch Hours, Branch Q24H, First dose on Mon03/07/22 at 0215, Until Discontinu ed, Routine nicotine 2021-05 Yes 1{patch 1 Patch, Un [place]ila (NICODERM) 0-31 } Topical, ity o f 21 mg/24 hr 07:15: Administer [place] patch 1 00 over 24 Medical Patch Hours, Branch Q24H, First dose on Mon03/07/22 at 0215, Until Discontinu ed, Routine gabapentin 2021-05 Yes 100mg 100 mg, Uni vers (NEURONTIN) 0-31 Oral, TID, it y of capsule 100 06:15: First dose [place] mg 00 on [facility] 03/07/22 Branch at 0115, Until Discontinu ed, Routine gabapentin 2021-05 Yes 100mg 100 mg, Uni vers (NEURONTIN) 0-31 Oral, TID, it y of capsule 100 06:15: First dose [place] mg 00 on [facility] 03/07/22 Branch at 0115, Until Discontinu ed, Routine ondansetron 2021-05 Yes 4mg 4 mg, Slow Univers (ZOFRAN 0-31 IV Push, ity of (PF)) 06:10: Q6HPRN, [place] injection 4 22 Starting Medi rogers mg on [facility] 03/07/22 at 0110, Until Discontinu ed, Routine, Nausea and Vomiting (N/V) ondansetron 2021-05 Yes 4mg 4 mg, Slow Univers (ZOFRAN 0-31 IV Push, ity of (PF)) 06:10: Q6HPRN, [place] injection 4 22 Starting Medi rogers mg on [facility] 03/07/22 at 0110, Until Discontinu ed, Routine, Nausea and Vomiting (N/V) glucagon 2021-05 Yes 1mg 1 mg, Univers (GLUCAGEN 0-31 Intramuscu ity of DIAGNOSTIC 06:08: [place], [place]N, [place] KIT) 55 Starting Medical injection 1 on Mon Branch mg 03/07/22 at 0108, Until Discontinu ed, MARCOS, Blood Glucose < or = 70 mg/dL and patient is unable to swallow or has mental changes. dextrose 50 2021-05 Yes 25mL 25 mL, Univ ers % in water 0-31 Slow IV ity of (D50W) 06:08: Push, PRN, [place] injection 55 Starting Medica l 25 mL on [facility] Branch 03/07/22 at 0108, Until Discontinu ed, MARCOS, Blood Glucose < or = 70 mg/dL and patient is unable to swallow or has mental status changes. glucagon 2021-05 Yes 1mg 1 mg, Univers (GLUCAGEN 0-31 Intramuscu ity of DIAGNOSTIC 06:08: [place], [place]N, [place] KIT) 55 Starting Medical injection 1 on [facility] Branch mg 03/07/22 at 0108, Until Discontinu ed, MARCOS, Blood Glucose < or = 70 mg/dL and patient is unable to swallow or has mental changes. dextrose 50 2021-05 Yes 25mL 25 mL, Univ ers % in water 0-31 Slow IV ity of (D50W) 06:08: Push, PRN, [place] injection 55 Starting Medica l 25 mL on [facility] Branch 03/07/22 at 0108, Until Discontinu ed, MRACOS, Blood Glucose < or = 70 mg/dL and patient is unable to swallow or has mental status changes. morpHINE (2 2021-05 No 2mg 2 mg, Slow Univers mg/mL) 0-31 10-31 IV Push, ity of injection 2 03:10: 03:22 ONCE, 1 [place] mg 00 :00 dose, On Medical [place] Branch 03/06/22 at 2215, Routine D5W 0.45% 2021-05- No 1000mL at 125 Uni vers NaCl 0-31 10-31 mL/hr, ity of (1/2NS) IV 03:00: 12:46 1,000 mL, [place] infusion 00 :40 IV Medical 1,000 mL Infusion, Branch CONTINUOUS , Starting on [place] 03/06/22 at 2200, Until [facility] 03/07/22 at 0746, MARCOS ondansetron 2021-05 No 4mg 4 mg, Slow Univers (ZOFRAN 0-03-07 IV Push, ity of (PF)) 02:00: 01:55 ONCE, 1 [place] injection 4 00 :00 dose, On Medi rogers mg Sun Branch 03/06/22 at 2100, MARCOS morpHINE (4 2021-05 No 4mg 4 mg, Slow Univers mg/mL) 003-07 IV Push, ity of injection 4 02:00: 01:55 ONCE, 1 [place] mg 00 :[place] dose, On Medical [place] [facility] 03/06/22 at 2100, STAT levothyroxi 2020-05- No [id number] 75ug Take 1 Univers ne 75 mcg 0-28 11-28 tablet by ity of tablet 00:00: 05:59 mouth [place] 00 :00 every Medical morning Branch for 30 days. insulin 2020-05 Yes 20U 20 Units, Unive rs glargine 0-27 Subcutaneo ity o f (LANTUS 14:00: us, DAILY, [place] U-100) 00 First dose Medical injection (after Branch 20 Units last modificati on) on Mon03/03/21 at 0900, Until Discontinu ed, Routine insulin 2020-05 Yes 10U inject 10 Unive rs aspart 0-27 Units ity of RAPID 12:55: under the [place] (NOVOLOG 59 skin 3 Medical U-100 (three) Branch INSULIN times ASPART) 100 daily with unit/mL meals. injection gemfibroziL 2020-05 Yes 600mg Take 600 U nivers 600 mg 0-27 mg by ity of tablet 12:55: mouth at [place] 59 bedtime. Medical Branch insulin 2020-05- No [...] First dose [place] mg 00 on [facility] 03/02/21 Branch at 2100, Until Discontinu ed, Routine gabapentin 2020-05 Yes 300mg 300 mg, Uni vers (NEURONTIN) 0-27 Oral, QHS, it y of capsule 300 02:00: First dose [place] mg 00 on [facility] 03/02/21 Branch at 2100, Until Discontinu ed, Routine insulin 2020-05- No [id number] 20U inject 20 Univers detemir 0-03 04-27 Units ity of U-100 00:00: 05:59 under the [place] (LEVEMIR 00 :00 skin daily Medic al U-100 for 30 Branch INSULIN) days. 100 unit/mL injection gabapentin 2020-05- No [id number] 300mg Take 1 Univers 300 mg 0-03 04- capsule by ity of capsule 00:00: 05:59 mouth at [place] 00 :00 bedtime Medical for 30 Branch days. insulin 2020-05- No 10U 10 Units, Univ ers glargine 0-02 03- Subcutaneo ity of (LANTUS 22:00: 13:11 us, QHS, [place] U-100) 00 :30 First dose Medical injection on 10 Units 03/02/21 at 1700, Until Discontinu ed, Routine Sliding 2020-05 Yes Subcutaneo Univ ers Scale 0-26 us, TID ity of Insulin - 17:00: MEALS+HS, [place] Lispro 00 First dose Medical (HumaLOG) + (after Branch Fsbg last Testing modificati on) on Mon03/02/21 at 1200, Until Discontinu ed, Routine Sliding 2020-05- No Subcutaneo Uni vers Scale 0-25 10-26 us, TID ity of Insulin - 22:00: 14:34 MEALS+HS, [place] Lispro 00 :54 First dose Medical (HumaLOG) + on Mon Fsbg 03/01/21 Testing at 1700, Until Discontinu [...] 26 Starting Medi rogers mg on Mon Branch 03/01/21 at 1244, Until Discontinu ed, Routine, Nausea and Vomiting (N/V) acetaminoph 2020-05 Yes 650mg 650 mg, Un lucila en 0-25 Oral, ity of (TYLENOL) 17:44: Q6HPRN, [place] tablet 650 19 Starting Medic al mg on Mon03/01/21 at 1244, Until Discontinu ed, Routine, Pain (scale 1-3) dextrose 50 2020-05- No 50mL 50 mL, Uni vers % in water 0-25 10-25 Intravenou it y of (D50W) 17:00: 15:40 s, ONCE, 1 [place] injection 00 :00 dose, On Medica l 50 mL Mon03/01/21 at 1200, STAT ondansetron 2020-05- No 4mg 4 mg, Slow Univers (ZOFRAN 0-25 10-25 IV Push, ity of (PF)) 17:00: 15:48 ONCE, 1 [place] injection 4 00 :00 dose, On Medi rogers mg Mon03/01/21 at 1200, MARCOS D5W 0.45% 2020-05- No 1000mL at 125 Uni vers NaCl 0-25 10-25 mL/hr, ity of (1/2NS) IV 17:00: 21:29 1,000 mL, [place] infusion 00 :40 IV Medical 1,000 mL Infusion, Branch CONTINUOUS , Starting on Mon03/01/21 at 1200, Until Mon03/01/21 at 1629, MARCOS ondansetron 2019-0 Yes [id number] 4mg Take 1 Univers (ZOFRAN 1-28 tablet by ity of ODT) 4 mg 00:00: mouth [place] disintegrat 00 every 8 Medic al ing tablet (eight) Branch hours as needed for Nausea and Vomiting (N/V). ondansetron 2019-0 Yes [id number] 4mg Take 1 Univers (ZOFRAN 1-28 tablet by ity of ODT) 4 mg 00:00: mouth [place] disintegrat 00 every 8 Medic al ing tablet (eight) Branch hours as needed for Nausea and Vomiting (N/V). ondansetron 2018-0 Yes [id number] 4mg Take 1 Univers (ZOFRAN 1-28 tablet by ity of ODT) 4 mg 00:00: mouth [place] disintegrat 00 every 8 Medic al ing tablet (eight) Branch hours as needed for Nausea and Vomiting (N/V). ondansetron 2018-0 Yes [id number] 4mg Take 1 Univers (ZOFRAN 1-28 tablet by ity of ODT) 4 mg 00:00: mouth [place] disintegrat 00 every 8 Medic al ing tablet (eight) Branch hours as needed for Nausea and Vomiting (N/V). ondansetron 2018-0 Yes [id number] 4mg Take 1 Univers (ZOFRAN 1-28 tablet by ity of ODT) 4 mg 00:00: mouth [place] disintegrat 00 every 8 Medic al ing tablet (eight) Branch hours as needed for Nausea and Vomiting (N/V). ondansetron 2018-0 Yes [id number] 4mg Take 1 Univers (ZOFRAN 1-28 tablet by ity of ODT) 4 mg 00:00: mouth [place] disintegrat 00 every 8 Medic al ing tablet (eight) Branch hours as needed for Nausea and Vomiting (N/V). ondansetron 0 Yes [id number] 4mg Take 1 Univers (ZOFRAN 1-28 tablet by ity of ODT) 4 mg 00:00: mouth [place] disintegrat 00 [...] Immunizations Ordered Filled Immunization Date Status Comments [facility] e Immunization Name Name SARS-COV-2 COVID-19 2021-03-03 Completed Unive rsity of PFIZER VACCINE 00:00:00 [facility] SARS-COV-2 COVID-19 2021-03-03 Completed Unive rsity of PFIZER VACCINE 00:00:00 [facility] SARS-COV-2 COVID-19 2021-03-03 Completed Unive rsity of PFIZER VACCINE 00:00:00 [facility] SARS-COV-2 COVID-19 2021-03-03 Completed Unive rsity of PFIZER VACCINE 00:00:00 [facility] SARS-COV-2 COVID-19 2021-03-03 Completed Unive rsity of PFIZER VACCINE 00:00:00 [facility] SARS-COV-2 COVID-19 2021-03-03 Completed Unive rsity of PFIZER VACCINE 00:00:00 [facility] SARS-COV-2 COVID-19 2021-03-03 Completed Unive rsity of PFIZER VACCINE 00:00:00 [facility] Influenza Virus 2018-02-13 Completed Universit y of Vaccine Quad IM 3+ 00:00:00 [facility] Influenza Virus 2018-02-13 Completed Universit y of Vaccine Quad IM 3+ 00:00:00 [facility] Influenza Virus 2018-02-13 Completed Universit y of Vaccine Quad IM 3+ 00:00:00 [facility] Influenza Virus 2018-02-13 Completed Universit y of Vaccine Quad IM 3+ 00:00:00 [facility] Branch Influenza Virus 2018-02-13 Completed Universit y of Vaccine Quad IM 3+ 00:00:00 [facility] Influenza Virus 2018-02-13 Completed Universit y of Vaccine Quad IM 3+ 00:00:00 [facility] Influenza Virus 2018-02-13 Completed Universit y of Vaccine Quad IM 3+ 00:00:00 [facility] Branch Influenza Four-QIV 2018-02-[address] [facility] Non-PF 5+ YR 00:00:00 [facility] Influenza Four-QIV 2018-02-[address] [facility] Non-PF 5+ YR 00:00:00 Medical [facility] er Influenza Four-QIV 2018-02-[address] [facility] Non-PF 5+ YR 00:00:00 Medical [facility] er Vital Signs Vital Name Observation Time Observation Value Comments Source Systolic blood 2022-03-18 164 mm[Hg] University of pressure 17:00:00 [facility] Diastolic blood 2022-03-18 99 mm[Hg] University o f pressure 17:00:00 [facility] Heart rate 2022-03-18 113 /min University of 17:00:00 [facility] Oxygen saturation 2022-03-18 99 /min University of in Arterial blood 17:00:00 [facility] by Pulse oximetry [place] Body height 2022-03-18 170.2 cm University of 16:57:00 [facility] Body weight 2022-03-18 62.687 kg University of 16:57:00 [facility] BMI 2022-03-18 21.65 kg/m2 University of 16:57:00 [facility] Systolic blood 2022-03-09 115 mm[Hg] University of pressure 16:33:00 [facility] Diastolic blood 2022-03-09 74 mm[Hg] University o f pressure 16:33:00 [facility] Heart rate 2022-03-09 91 /min University of 16:33:00 [facility] Body temperature 2022-03-09 36.5 Elisha University of 16:33:00 [facility] Respiratory rate 2022-03-09 18 /min University of 16:33:00 [facility] Oxygen saturation 2022-03-09 95 /min University of in Arterial blood 16:33:00 [facility] rogers by Pulse oximetry Branch Body height 2022-03-07 175.3 cm University of 03:34:00 [facility] Body weight 2022-03-07 68.04 kg University of 03:34:00 [facility] BMI 2022-03-07 22.15 kg/m2 University of 03:34:00 [facility] Respiratory rate 2022-03-07 15 /min University of 17:37:00 [facility] Systolic blood 2022-03-07 150 mm[Hg] University of pressure 12:39:00 [facility] Diastolic blood 2022-03-07 92 mm[Hg] University o f pressure 12:39:00 [facility] Heart rate 2022-03-07 113 /min University of 12:39:00 [facility] Body temperature 2022-03-07 36.67 Elisha University of 12:39:00 [facility] Respiratory rate 2022-03-07 18 /min University of 12:39:00 [facility] Oxygen saturation 2022-03-07 98 /min University of in Arterial blood 12:39:00 [facility] by Pulse oximetry Branch Body height 2022-03-07 175.3 cm University of 03:34:00 [facility] Body weight 2022-03-07 68.04 kg University of :34:00 [facility] BMI 2022-03-07 22.15 kg/m2 University of 03:34:00 [facility] Systolic blood 2021-03-03 109 mm[Hg] University of pressure 16:44:00 [facility] Diastolic blood 2021-03-03 81 mm[Hg] University o f pressure 16:44:00 [facility] Heart rate 2021-03-03 85 /min University of 16:44:00 [facility] Body temperature 2021-03-03 36.33 Elisha University of 16:44:00 [facility] Respiratory rate 2021-03-03 16 /min University of 16:44:00 [facility] Oxygen saturation 2021-03-03 93 /min University of in Arterial blood 16:44:00 [place] Medi [facility]gers by Pulse oximetry Branch Body weight 2021-03-03 77.384 kg University of 09:09:00 [facility] BMI 2021-03-03 25.19 kg/m2 University of 09:09:00 [facility] Body height 2021-03-01 175.3 cm Simultaneous University of 18:25:00 filing. User may [place] Medic al not have seen Branch previous data. Procedures Procedure Date / Time Performing Clinician Source Performed POCT GLUCOSE (AUTOMATED) 2022-03-09 19:52:00 Lorraine Trevizo Un iversity of [facility] POCT GLUCOSE (AUTOMATED) 2022-03-09 13:21:00 Lorraine Trevizo Un iversity of [facility] POCT GLUCOSE (AUTOMATED) 2022-03-09 07:05:00 Lorraine Trevizo Un iversity of [facility] POCT GLUCOSE (AUTOMATED) 2022-03-09 04:04:00 Lorraine Trevizo Un iversity of [facility] POCT GLUCOSE (AUTOMATED) 2022-03-09 02:25:00 Lorraine Trevizo Un iversity of [facility] POCT GLUCOSE (AUTOMATED) 2022-03-08 21:55:00 Lorraine Trevizo Un iversity of [facility] POCT GLUCOSE (AUTOMATED) 2022-03-08 21:55:00 Lorraine Trevizo Un iversity of [facility] POCT GLUCOSE (AUTOMATED) 2022-03-08 17:18:00 Lorraine Trevizo Un iversity of [facility] POCT GLUCOSE (AUTOMATED) 2022-03-08 17:18:00 Lorraine Trevizo Un iversity of [facility] POCT GLUCOSE (AUTOMATED) 2022-03-08 12:55:00 Lorraine Trevizo Un iversity of [facility] POCT GLUCOSE (AUTOMATED) 2022-03-08 12:55:00 Lorraine Trevizo Un iversity of [facility] COMP. METABOLIC PANEL 2022-03-08 08:44:00 Jorge White [facility] ([id number]) [facility] CBC WITH DIFF 2022-03-08 08:44:00 Pierce [facility] COMP. METABOLIC PANEL 2022-03-08 08:44:00 Jorge White [facility] ([id number]) [facility] CBC WITH DIFF 2022-03-08 08:44:00 Pierce, [facility] POCT GLUCOSE (AUTOMATED) 2022-03-08 05:40:00 Lorraine Trevizo Un iversity of [facility] POCT GLUCOSE (AUTOMATED) 2022-03-08 05:40:00 Lorraine Trevizo Un iversity of [facility] POCT GLUCOSE (AUTOMATED) 2022-03-08 02:17:00 Lorraine Trevizo Un iversity of [facility] POCT GLUCOSE (AUTOMATED) 2022-03-08 02:17:00 Lorraine Trevizo Un iversity of [facility] POCT GLUCOSE (AUTOMATED) 2022-03-07 23:06:00 Lorraine Trevizo Un iversity of [facility] POCT GLUCOSE (AUTOMATED) 2022-03-07 23:06:00 Lorraine Trevizo Un iversity of [facility] POCT GLUCOSE (AUTOMATED) 2022-03-07 22:13:00 Lorraine Trevizo Un iversity of [facility] POCT GLUCOSE (AUTOMATED) 2022-03-07 22:13:00 Lorraine Trevizo Un iversity of [facility] XR PELVIS <3 VW 2022-03-07 19:15:15 [facility] XR PELVIS <3 VW 2022-03-07 19:15:15 [facility] 2022-03-07 14:50:00 Gareth Galeana o f [facility] HIP HEMIARTHROPLASTY 2022-03-07 14:26:00 Tor Montano Univkari rsity of [facility] HIP HEMIARTHROPLASTY 2022-03-07 14:26:00 Tor Montano Univkari rsity of [facility] POCT GLUCOSE (AUTOMATED) 2022-03-07 12:41:00 Lorraine Trevizo Un iversity of [facility] POCT GLUCOSE (AUTOMATED) 2022-03-07 12:41:00 Lorraine Trevizo Un iversity of [facility] URINE DRUG (IMMUNOASSAY) - 2022-03-07 10:21:00 Jorge [facility] [place] COMPREHENSIVE DRUG SCREEN Medica l Branch URINALYSIS 2022-03-07 10:21:00 Jorge White [facility] SODIUM, URINE RANDOM 2022-03-07 10:21:00 Jorge White [facility] PROTEIN CREAT RATIO URINE 2022-03-07 10:21:00 [facility] - 2022-03-07 10:21:00 Jorge White [facility] COMPREHENSIVE DRUG SCREEN Medica l Branch URINALYSIS 2022-03-07 10:21:00 Jorge White [facility] SODIUM, URINE RANDOM 2022-03-07 10:21:00 Jorge White [facility] PROTEIN CREAT RATIO URINE 2022-03-07 10:21:00 Jorge White [facility] URINE CULTURE 2022-03-07 10:20:00 Jorge White [facility] URINE CULTURE 2022-03-07 10:20:00 Pierce [facility] POCT GLUCOSE (AUTOMATED) 2022-03-07 08:43:00 Lorraine Trevizo [facility] POCT GLUCOSE (AUTOMATED) 2022-03-07 08:43:[address] [facility]OS[facility] 2022-03-07 08:26:00 Jorge White [facility] MAGNESIUM 2022-03-07 08:26:00 Pierce [facility] COMP. METABOLIC PANEL 2022-03-07 08:26:00 Jorge White [facility] ([id number]) [facility] CBC WITH DIFF 2022-03-07 08:26:00 Pierce martin [facility] PROTHROMBIN TIME / INR 2022-03-07 08:26:00 Jorge White [facility] N-TERMINAL PRO-BNP 2022-03-07 08:26:00 Jorge White [facility] PHOSPHORUS 2022-03-07 08:26:00 Jorge White [facility] MAGNESIUM 2022-03-07 08:26:00 Jorge White [facility] COMP. METABOLIC PANEL 2022-03-07 08:26:00 Jorge White [facility] ([id number]) [facility] CBC WITH DIFF 2022-03-07 08:26:00 Jorge White [facility] PROTHROMBIN TIME / INR 2022-03-07 08:26:00 Jorge White [facility] N-TERMINAL PRO-BNP 2022-03-07 08:26:00 Jorge White [facility] POCT GLUCOSE (AUTOMATED) 2022-03-07 04:13:[address] PO[facility]UCOSE (AUTOMATED) 2022-03-07 04:13:[address] [facility] XR PELVIS <3 VW 2022-03-07 02:04:37 Lorraine Trevizo [facility] XR PELVIS <3 VW 2022-03-07 02:04:37 Lorraine Treivzo [facility] XR CHEST 1 VW 2022-03-07 01:58:10 Lorraine Trevizo [facility] XR HIPS 2 VW RIGHT 2022-03-07 01:58:10 Lorraine Trevizo [facility] XR CHEST 1 VW 2022-03-07 01:58:10 Lorraine Trevizo [facility] XR HIPS 2 VW RIGHT 2022-03-07 01:58:10 Lorraine Trevizo [facility] HB ECG ROUTINE & RHYTHM 2022-03-07 01:56:57 Lorraine Trevizo [facility] HB ECG ROUTINE & RHYTHM 2022-03-07 01:56:57 Lorraine Trevizo [facility] URIC ACID 2022-03-07 01:46:00 Jorge White [facility] MAGNESIUM 2022-03-07 01:46:00 Jorge White [facility] FREE T4 2022-03-07 01:46:00 Pierce [facility] COMP. METABOLIC PANEL 2022-03-07 01:46:[address] [facility] ([id number]) Medical Branch LIPID PANEL ([id number])(TOTAL 2022-03-07 01:46:00 Jorge White [facility] CHOLESTEROL, Medical Branch TRIGLYCERIDES, HDL) ETHANOL 2022-03-07 01:46:00 Pierce martin [facility] SEDIMENTATION RATE 2022-03-07 01:46:00 Pierce martin [facility] CBC WITH DIFF 2022-03-07 01:46:00 Lorraine Trevizo [facility] GLYCOSYLATED HEMOGLOBIN 2022-03-07 01:46:00 Pierce [facility] (A1C) Medical [place] N-TERMINAL PRO-BNP 2022-03-07 01:46:00 Pierce martin [facility] FREE T3 2022-03-07 01:46:00 Pierce [facility] URIC ACID 2022-03-07 01:46:00 Pierce [facility] MAGNESIUM 2022-03-07 01:46:00 Pierce martin [facility] FREE T4 2022-03-07 01:46:00 Pierce [facility] COMP. METABOLIC PANEL 2022-03-07 01:46:[address] [facility] ([id number]) Medical Branch LIPID PANEL ([id number])(TOTAL 2022-03-07 01:46:00 Jorge White [facility] CHOLESTEROL, Medical Branch TRIGLYCERIDES, HDL) ETHANOL 2022-03-07 01:46:00 Pierce mart[facility] SEDIMENTATION RATE 2022-03-07 01:46:00 Pierce [facility] CBC WITH DIFF 2022-03-07 01:46:00 Lorraine Trveizo [facility] GLYCOSYLATED HEMOGLOBIN 2022-03-07 01:46:00 Jorge White [facility] (A1C) [facility] N-TERMINAL PRO-BNP 2022-03-07 01:46:00 Jorge White [facility] FREE T3 2022-03-07 01:46:00 Jorge White [facility] POCT GLUCOSE (AUTOMATED) 2022-03-07 01:45:[address] [facility] PO[facility] GLUCOSE (AUTOMATED) 2022-03-07 01:45:00 Lorraine Trevizo [facility] NOTICE OF PRIVACY 2022-03-07 01:33:58 Doctor Unassigned, [facility] PRACT[facility] [address] [facility] NOTICE OF PRIVACY 2022-03-07 01:33:58 Doctor Unassigned, [facility] [address] Medical [place] CONSENT/REFUSAL FOR 2022-03-07 01:32:07 Doctor Unassrohini, [facility] DIAGNOSIS AND TREATMENT [address] [facility] CONSENT/REFUSAL FOR 2022-03-07 01:32:07 Doctor Unassigned, [facility] (AUTOMATED) 2021-03-03 17:28:[address] [facility] POCT GLUCOSE (AUTOMATED) 2021-03-03 13:06:[address] [facility] BASIC METABOLIC PANEL (NA, 2021-03-03 09:15:00 Matt Ford [facility] K, CL, CO2, GLUCOSE, BUN, Medica l Branch CREATININE, CA) CBC WITH DIFF 2021-03-03 09:15:00 Matt Ford [facility] POCT GLUCOSE (AUTOMATED) 2021-03-03 03:19:00 Matt Ford [facility] POCT GLUCOSE (AUTOMATED) 2021-03-03 00:52:00 Matt Ford [facility] POCT GLUCOSE (AUTOMATED) 2021-03-02 22:20:00 Matt Ford [facility] POCT GLUCOSE (AUTOMATED) 2021-03-02 17:14:00 Matt Ford [facility] POCT GLUCOSE (AUTOMATED) 2021-03-02 12:59:00 Matt Ford [facility] FREE T4 2021-03-02 09:44:00 [facility] (NA, 2021-03-02 09:44:00 Matt Ford [facility] K, CL, CO2, GLUCOSE, BUN, Medica l Branch CREATININE, CA) FREE T3 2021-03-02 09:44:00 Logan [facility] POCT GLUCOSE (AUTOMATED) 2021-03-02 01:03:00 Matt Ford [facility] POCT GLUCOSE (AUTOMATED) 2021-03-01 21:37:00 Matt Ford [facility] CRITICAL CARE 2021-03-01 21:20:20 [facility] 2021-03-01 20:55:[address] [facility] POCT GLUCOSE (AUTOMATED) 2021-03-01 18:17:[address] [facility] POCT GLUCOSE (AUTOMATED) 2021-03-01 16:49:[address] [facility] CT HEAD WO CONTRAST 2021-03-01 16:00:12 Akira Winter [facility] MAGNESIUM 2021-03-01 15:51:00 Akira Winter [facility] THYROID STIMULATING 2021-03-01 15:51:00 Usman John [facility] HORMONE [facility] COMP. METABOLIC PANEL 2021-03-01 15:51:00 Akira Winter [facility] ([id number]) [facility] CBC WITH DIFF 2021-03-01 15:51:00 Akira Winter [facility] GLYCOSYLATED HEMOGLOBIN 2021-03-01 15:51:00 [facility] (A1C) [facility] COVID-19 (ID NOW RAPID 2021-03-01 15:51:00 Akira Wintere [facility] TESTING) Medical Branch LAB ONLY COVID 2021-03-01 15:51:00 Akira Winter [place] f [place] INTERPRETATION [facility] HB ECG ROUTINE & RHYTHM 2021-03-01 15:45:31 Akira Winter [facility] STRIP [facility] Branch POCT GLUCOSE (AUTOMATED) 2021-03-01 15:42:[address] [facility] Plan of Care Planned Activity Planned Date Details Comments Source Future Scheduled 2021-02-[address] [facility] 00:[facility]:00 (procedure) [code = Medical Center 27145061] Future Scheduled 2021-01-[address] [facility] Test 00:00:00 (Season Ended) [code = Medic al Center INFLUENZA VACCINE (Season Ended)] Future Scheduled 2020-05-[address] [facility] Test 00:00:00 (12+) [code = Medical Center DEPRESSION SCREENING (12+)] Future Scheduled 2018-08-[address] [facility] measurement Medical Center (procedure) [code = 13448437] Future Scheduled 1993 DTAP/TDAP/TD VACCINES CH I [...] 00:00:00 examination Medical Center (regime/therapy) [code = 612191797] Future Scheduled 1984-01-26 Urine screening for [facility] Test 00:00:00 protein (procedure) Medical Center [code = 850390323] Future Scheduled 1980-01-[address] [facility] Test 00:00:00 0-64 YRS (1 of 1 - Medical C enter PPSV23) [code = PNEUMOCOCCAL VACCINE 0-64 YRS (1 of 1 - PPSV23)] Future Scheduled [address] [facility] Test 00:00:00 [facility] colon (procedure) [code = 553620663] Encounters Start End Encounter Admission Attending Care Care Encounter Source Date/Time Date/Time Type Type Clinicians Facility Department ID 2021-03-09 Emergency [facility] [id number] Univers 09:22:47 ity of [facility] 2021-03-08 Emergency [facility] [id number] Univers 02:24:31 ity [facility] 2022-03-18 2022-03-18 Outpatient R BEN [facility] [id number] Univers 11:15:00 12:11:35 [facility] 2022-03-18 [facility] 1.2.840.114 [id number] Univers 11:15:00 12:11:35 Visit [facility] 350.1.13.10 it y of [place] 4.2.7.2.686 Jaun as DARRYL?BLEA [id number] [address] MEDICAL OFFICE BUILDING 2022-03-10 2022-03-10 Transition BEN Rodriguez 1.2.840.114 [id number] Univers 00:00:00 00:00:00 of Care Patricia TAYLOR 350.1.13.10 [place] [id number] [facility] 403 Branch 2022-03-06 2022-03-09 Inpatient X PIERCE [facility] IRINEO [id number] Univers 20:34:00 15:50:00 ADNAN ity [facility] 2022-03-06 2022-03-09 Hospital Lorraine Trevizo [facility] 1.2.840. 114 [id number] Univers 20:34:00 15:50:00 Encounter Pierce Jorge JACKSON 350.1.13.10 [facility] [place] [id number] [facility] 081 Branch 2022-03-07 2022-03-07 Anesthesia Alquicira-Claire [facility] 1.2.840.114 [id number] Univers 09:41:00 12:53:00 Event RENETTA campos 350.1.13.10 i ty of [place] 4.2.7.2.686 Jaun as SURGICAL [id number] [facility] 020 Branch 2022-03-07 2022-03-07 Surgery [facility] [id number] Univers 09:30:00 12:03:00 Tor JACKSON 350.1.13.10 i ty [place] [id number] [place] [id number] Branch 2021-03-12 2021-03-12 Outpatient Gareth MALHOTRA [facility] [id number] Univers 16:30:00 16:30:00 ANDREI [facility] 2021-03-01 2021-03-03 Emergency Akira Winter [facility] 1.2.840. 114 [id number] Univers 10:40:00 12:50:00 Matt [place] 350.1.13.10 ity jacob [place] [facility] [id number] 2020-10-27 2020-10-27 Transition Ben Rodriguez 1.2.840.114 [id number] 00:00:00 00:00:00 of Care Patricia Taylor 350.1.13.10 Rajeev 4.2.7.2.686 [id number] 403 2020-10-25 2020-10-26 Hospital Akira Winter [facility] 1.2.840.1 [id number] 16:12:00 18:10:00 Encounter Ryan Cardozo 350.1.13.[address] [facility] [id number] 2020-08-17 2020-08-17 Outpatient R DUSTY [facility] [id number] Univers 16:01:43 23:59:00 TOR [facility] 2020-08-17 2020-08-17 Office Dusty [facility] [id number] 15:25:16 16:33:28 Visit [facility] 350.1.13.10 [place] [id number] [facility] [id number] [address] [place] Results Test Description Test Time Test Comments Results Result Comments Source POCT GLUCOSE (AUTOMATED) 2022-03-09 20:30:40 Test Item Value Reference Range Interpretation Comme nts POCT GLU (test code = 0853890816) 332 mg/dL 70-110 H Lab Interpretation (test code = 46658-8) Abnormal [facility] GLUCOSE (AUTOMATED)2022-03-09 13:23:52 Test Item Value Reference Range Interpretation Comments POCT GLU (test code = 8441609836) 373 mg/dL 70-110 H Lab Interpretation (test code = Abnormal 60455-6) [facility] GLUCOSE (AUTOMATED)2022-03-09 07:10:19 Test Item Value Reference Range Interpretation Comments POCT GLU (test code = 4727285961) 520 mg/dL 70-110 HH Lab Interpretation (test code = Abnormal 46096-7) [facility] GLUCOSE (AUTOMATED)2022-03-09 04:11:59 Test Item Value Reference Range Interpretation Comments POCT GLU (test code = 6206477820) 443 mg/dL 70-110 H Lab Interpretation (test code = Abnormal 98786-1) [facility] GLUCOSE (AUTOMATED)2022-03-09 02:28:25 Test Item Value Reference Range Interpretation Comments POCT GLU (test code = 7310722663) 438 mg/dL 70-110 H Lab Interpretation (test code = Abnormal 87386-1) [facility] GLUCOSE (AUTOMATED)2022-03-08 22:12:24 Test Item Value Reference Range Interpretation Comments POCT GLU (test code = 5714889494) 310 mg/dL 70-110 H Lab Interpretation (test code = Abnormal 79212-5) [facility] GLUCOSE (AUTOMATED)2022-03-08 22:12:24 Test Item Value Reference Range Interpretation Comments POCT GLU (test code = 7522156070) 310 mg/dL 70-110 H Lab Interpretation (test code = Abnormal 96364-5) [facility] GLUCOSE (AUTOMATED)2022-03-08 17:21:26 Test Item Value Reference Range Interpretation Comments POCT GLU (test code = 0760628716) 411 mg/dL 70-110 H Lab Interpretation (test code = Abnormal 94630-1) [facility] GLUCOSE (AUTOMATED)2022-03-08 17:21:26 Test Item Value Reference Range Interpretation Comments POCT GLU (test code = 2349357545) 411 mg/dL 70-110 H Lab Interpretation (test code = Abnormal 65037-0) [facility] GLUCOSE (AUTOMATED)2022-03-08 12:59:57 Test Item Value Reference Range Interpretation Comments POCT GLU (test code = 3258044431) 484 mg/dL 70-110 HH Lab Interpretation (test code = Abnormal 31041-0) [facility] GLUCOSE (AUTOMATED)2022-03-08 12:59:57 Test Item Value Reference Range Interpretation Comments POCT GLU (test code = 1950560497) 484 mg/dL 70-110 HH Lab Interpretation (test code = Abnormal 31420-1) [facility] GLUCOSE (AUTOMATED)2022-03-08 05:42:15 Test Item Value Reference Range Interpretation Comments POCT GLU (test code = 1564904190) 307 mg/dL 70-110 H Lab Interpretation (test code = Abnormal 02148-0) [facility] GLUCOSE (AUTOMATED)2022-03-08 05:42:15 Test Item Value Reference Range Interpretation Comments POCT GLU (test code = 7789903417) 307 mg/dL 70-110 H Lab Interpretation (test code = Abnormal 28179-8) [facility] GLUCOSE (AUTOMATED)2022-03-08 02:29:53 Test Item Value Reference Range Interpretation Comments POCT GLU (test code = 2795131987) 298 mg/dL 70-110 H Lab Interpretation (test code = Abnormal 45060-1) [facility] GLUCOSE (AUTOMATED)2022-03-08 02:29:53 Test Item Value Reference Range Interpretation Comments POCT GLU (test code = 5151155442) 298 mg/dL 70-110 H Lab Interpretation (test code = Abnormal 05720-0) [facility] GLUCOSE (AUTOMATED)2022-03-07 23:10:06 Test Item Value Reference Range Interpretation Comments POCT GLU (test code = 6507557624) 356 mg/dL 70-110 H Lab Interpretation (test code = Abnormal 79990-6) [facility] GLUCOSE (AUTOMATED)2022-03-07 23:10:06 Test Item Value Reference Range Interpretation Comments POCT GLU (test code = 3692196342) 356 mg/dL 70-110 H Lab Interpretation (test code = Abnormal 98193-0) [facility] GLUCOSE (AUTOMATED)2022-03-07 22:18:04 Test Item Value Reference Range Interpretation Comments POCT GLU (test code = 1549271246) 374 mg/dL 70-110 H Lab Interpretation (test code = Abnormal 49938-9) [facility] GLUCOSE (AUTOMATED)2022-03-07 22:18:04 Test Item Value Reference Range Interpretation Comments POCT GLU (test code = 7489321496) 374 mg/dL 70-110 H Lab Interpretation (test code = Abnormal 67608-2) [facility] GLUCOSE (AUTOMATED)2022-03-07 17:34:08 Test Item Value Reference Range Interpretation Comments POCT GLU (test code = 8728467945) 383 mg/dL 70-110 H Lab Interpretation (test code = Abnormal 13450-0) [facility] GLUCOSE (AUTOMATED)2022-03-07 17:34:08 Test Item Value Reference Range Interpretation Comments POCT GLU (test code = 6646969844) 383 mg/dL 70-110 H Lab Interpretation (test code = Abnormal 37771-9) [facility] GLUCOSE (AUTOMATED)2022-03-07 08:46:10 Test Item Value Reference Range Interpretation Comments POCT GLU (test code = 2511916760) 229 mg/dL 70-110 H Lab Interpretation (test code = Abnormal 98986-0) [facility] GLUCOSE (AUTOMATED)2022-03-07 08:46:10 Test Item Value Reference Range Interpretation Comments POCT GLU (test code = 6278504543) 229 mg/dL 70-110 H Lab Interpretation (test code = Abnormal 31551-9) [facility] [id number] 08:20:29 Test Item Value Reference Range Interpretation Comments ESR (test code = 92546-0) See_Comment [ Automated message] The system Kash[employer] generated this result transmitted ref erence range: 0 - 10 m m/HR. The reference r ambrosio was not used to interpret this result as normal/abnor mal. Lab Interpretation (test Normal code = 37415-7) [facility] [id number] 08:20:29 Test Item Value Reference Range Interpretation Comments ESR (test code = 12144-3) See_Comment [ Automated message] The system [employer] generated this result transmitted ref erence range: 0 - 10 m m/HR. The reference r ambrosio was not used to interpret this result as normal/abnor mal. Lab Interpretation (test Normal code = 17252-4) [facility] (A1C)2022-03-07 08:17:03 Test Item Value Reference Range Interpretation Comments HGB A1C (test code = 7.6 % 4.0-5.7 H 4548-4) CLIFF (test code = CLIFF) Reference RangesNormal: <5.7%Prediabetes: 5.7 - 6.4%Diabetes: > 6.5% Lab Interpretation (test Abnormal code = 96298-4) [facility]A1C)2022-03-07 08:17:03 Test Item Value Reference Range Interpretation Comments HGB A1C (test code = 7.6 % 4.0-5.7 H 4548-4) CLIFF (test code = CLIFF) Reference RangesNormal: <5.7%Prediabetes: 5.7 - 6.4%Diabetes: > 6.5% Lab Interpretation (test Abnormal code = 19973-2) [facility] (42435)(TOTAL CHOLESTEROL, TRIGLYCERIDES, HDL)2022-03-07 07:33:05 Test Item Value Reference Range Interpretation Comments CHOL (test code = 250 mg/dL 120-200 H 8773640981) HDL (test code = 55 mg/dL See_Comment [Automated message] 9054768079) The system [employer] generated this result transmit jay reference range : >=40. The refer ence range was not u sed to interpret th is result as normal/abnormal . HDLC RATIO (test code = See_Comment [Au tomated message] 1346258988) The system [employer] generated this result transmit jay reference range : <=5.0. The refe rence range was not u sed to interpret th is result as normal/abnormal . TRIG (test code = 171 mg/dL 30-170 H 9213193682) LDL CHOL (test code = 161 mg/dL See_Comment H [Auto mated message] 36832-3) The system [employer] generated this result transmit jay reference range : <=160. The refe rence range was not u sed to interpret th is result as normal/abnormal . VLDL (test code = 34 mg/dL 5-60 5419772954) Lab Interpretation (test Abnormal code = 70409-3) [facility] (79284)(TOTAL CHOLESTEROL, TRIGLYCERIDES, HDL)2022-03-07 07:33:05 Test Item Value Reference Range Interpretation Comments CHOL (test code = 250 mg/dL 120-200 H 6688848622) HDL (test code = 55 mg/dL See_Comment [Automated message] 0611471962) The system [employer] generated this result transmit jay reference range : >=40. The refer ence range was not u sed to interpret th is result as normal/abnormal . HDLC RATIO (test code = See_Comment [Au tomated message] 5934853696) The system [employer] generated this result transmit jay reference range : <=5.0. The refe rence range was not u sed to interpret th is result as normal/abnormal . TRIG (test code = 171 mg/dL 30-170 H 5844773064) LDL CHOL (test code = 161 mg/dL See_Comment H [Auto mated message] 63945-7) The system [employer] generated this result transmit jay reference range : <=160. The refe rence range was not u sed to interpret th is result as normal/abnormal . VLDL (test code = 34 mg/dL 5-60 4412832936) Lab Interpretation (test Abnormal code = 45944-1) [facility] [id number] 07:31:45 Test Item Value Reference Range Interpretation Comments FREE T4 (test code = See_Comment [Autom ated message] 7443393574) The system Kash[employer] generated this result transmitted ref erence range: 0.78 - 2 .20 ng/dL:. The ref erence range was not u sed to interpret this result as normal/abnor mal. Lab Interpretation (test Normal code = 32711-4) [facility] 07:31:45 Test Item Value Reference Range Interpretation Comments FREE T4 (test code = See_Comment [Autom ated message] 2206891057) The system Wis.dm h generated this result transmitted ref erence range: 0.78 - 2 .20 ng/dL:. The ref erence range was not u sed to interpret this result as normal/abnor mal. Lab Interpretation (test Normal code = 85477-2) [facility] 07:31:25 Test Item Value Reference Range Interpretation Comments FREE T3 (test code = 6999321653) 3.54 pg/mL 2.77-5.27 Lab Interpretation (test code = Normal 95021-7) [facility] 07:31:25 Test Item Value Reference Range Interpretation Comments FREE T3 (test code = 6299056994) 3.54 pg/mL 2.77-5.27 Lab Interpretation (test code = Normal 58529-3) [facility] [id number] 07:23:24 Test Item Value Reference Range Interpretation Comments NT-proBNP (test code 107 pg/mL See_Comment [Autom ated = 9703704450) message] The system which generated this result transmitted reference range : <=125. The reference range was not used to interpret this result as normal/abnormal . CLIFF (test code = CLIFF) Biotin has been reported to cause a negative bias, interpret results relative to patient's use of biotin. Lab Interpretation Normal (test code = 24474-5) [facility] [id number] 07:23:24 Test Item Value Reference Range Interpretation Comments NT-proBNP (test code 107 pg/mL See_Comment [Autom ated = 0976247677) message] The system which generated this result transmitted reference range : <=125. The reference range was not used to interpret this result as normal/abnormal . CLIFF (test code = CLIFF) Biotin has been reported to cause a negative bias, interpret results relative to patient's use of biotin. Lab Interpretation Normal (test code = 98474-2) [facility]2022-[facility] 07:14:08 Test Item Value Reference Range Interpretation Comments MAGNESIUM (test code = 6404755603) 2.0 mg/dL 1.7-2.4 Lab Interpretation (test code = Normal 09295-5) [facility]2022-[facility]-31 07:14:08 Test Item Value Reference Range Interpretation Comments MAGNESIUM (test code = 1121632445) 2.0 mg/dL 1.7-2.4 Lab Interpretation (test code = Normal 74283-6) [facility]2022-10-31 07:13:48 Test Item Value Reference Range Interpretation Comments ALCOHOL (test code = 165 mg/dL 1676637750) CLIFF (test code = CLIFF) <10 Iqmpjdzv87-007 Toxic>100 Depression of MEDICAL LAB TECHNICIAN>400 Fatalities Reported [facility]2022-10-31 07:13:48 Test Item Value Reference Range Interpretation Comments ALCOHOL (test code = 165 mg/dL 3309309679) CLIFF (test code = CLIFF) <10 Zijmsyaa25-610 Toxic>100 Depression of MEDICAL LAB TECHNICIAN>400 Fatalities Reported [facility] [id number] 07:13:47 Test Item Value Reference Range Interpretation Comments URIC ACID (test code = 1767014687) 4.7 mg/dL 3.6-8.0 Lab Interpretation (test code = Normal 10616-8) [facility] [id number] 07:13:47 Test Item Value Reference Range Interpretation Comments URIC ACID (test code = 6773163286) 4.7 mg/dL 3.6-8.0 Lab Interpretation (test code = Normal 37805-9) [facility] GLUCOSE (AUTOMATED)2022-03-07 04:16:37 Test Item Value Reference Range Interpretation Comments POCT GLU (test code = 3139680674) 113 mg/dL 70-110 H Lab Interpretation (test code = Abnormal 02914-6) [facility] GLUCOSE (AUTOMATED)2022-03-07 04:16:37 Test Item Value Reference Range Interpretation Comments POCT GLU (test code = 3145857512) 113 mg/dL 70-110 H Lab Interpretation (test code = Abnormal 61081-4) [facility] METABOLIC PANEL (83822)2022-03-07 02:43:33 Test Item Value Reference Range Interpretation Comments NA (test code = 139 mmol/L 135-145 9817734047) K (test code = 4.2 mmol/L 3.5-5.0 Slight 5754696596) hemolysis CL (test code = 101 mmol/L 98-108 9621659936) CO2 TOTAL (test code 28 mmol/L 23-31 = 3070581803) AGAP (test code = 2-16 4214752773) BUN (test code = 12 mg/dL 7-23 Slight 9875396720) hemolysis GLUCOSE (test code = 53 mg/dL 70-110 L 4892725609) CREATININE (test code 1.05 mg/dL 0.60-1.25 = 3067675997) TOTAL BILI (test code 0.7 mg/dL 0.1-1.1 = 0983404819) CALCIUM (test code = 8.7 mg/dL 8.6-10.6 7802615674) T PROTEIN (test code 7.7 g/dL 6.3-8.2 = 6899496025) ALBUMIN (test code = 4.3 g/dL 3.5-5.0 7076795070) ALK PHOS (test code = 102 U/L 34-122 Slight 4954890997) hemolysis ALTv (test code = 20 U/L 5-50 1742-6) AST(SGOT) (test code 39 U/L 13-40 Slight = 8712846783) hemolysis eGFR (test code = mL/min/1.73m2 8834579414) CLIFF (test code = CLIFF) Association of Glomerular Filtration Rate (GFR) and Staging of Kidney Disease* + -----+ --------+ +| GFR (mL/min/1.73 m2) ?| With Kidney Damage ?| ?Without Kidney Damage+ +------- +---- --+| ?>90 ?| ?Stage one ?| ? Normal ?+ ------+ ---------+--------- +| ?60-89 ?| ?Stage two ?| ? Decreased GFR ? + -----+ --------+ +| ?30-59 ?| ?Stage three ?| ? Stage three ? + -----+ --------+ +| ?15-29 ?| ?Stage four ? | ? Stage four ?+ ------+ ---------+--------- +| ?<15 (or dialysis) ? ?| ?Stage five ? | ? Stage five ?+ ------+ ---------+--------- + *Each stage assumes the associated GFR level [...] tests). Lab Interpretation Abnormal (test code = 08040-0) [facility]. METABOLIC PANEL (68490)2022-03-07 02:43:33 Test Item Value Reference Range Interpretation Comments NA (test code = 139 mmol/L 135-145 4772473298) K (test code = 4.2 mmol/L 3.5-5.0 Slight 4868728118) hemolysis CL (test code = 101 mmol/L 98-108 1125190279) CO2 TOTAL (test code 28 mmol/L 23-31 = 6094539207) AGAP (test code = 2-16 2293931411) BUN (test code = 12 mg/dL 7-23 Slight 8519109368) hemolysis GLUCOSE (test code = 53 mg/dL 70-110 L 4901598146) CREATININE (test code 1.05 mg/dL 0.60-1.25 = 8738486631) TOTAL BILI (test code 0.7 mg/dL 0.1-1.1 = 2424608833) CALCIUM (test code = 8.7 mg/dL 8.6-10.6 8253062842) T PROTEIN (test code 7.7 g/dL 6.3-8.2 = 8089610966) ALBUMIN (test code = 4.3 g/dL 3.5-5.0 7582477994) ALK PHOS (test code = 102 U/L 34-122 Slight 5782518217) hemolysis ALTv (test code = 20 U/L 5-50 1742-6) AST(SGOT) (test code 39 U/L 13-40 Slight = 6724654288) hemolysis eGFR (test code = mL/min/1.73m2 6827433556) CLIFF (test code = CLIFF) Association of Glomerular Filtration Rate (GFR) and Staging of Kidney Disease* + -----+ --------+ +| GFR (mL/min/1.73 m2) ?| With Kidney Damage ?| ?Without Kidney Damage+ +------- +---- --+| ?>90 ?| ?Stage one ?| ? Normal ?+ ------+ ---------+--------- +| ?60-89 ?| ?Stage two ?| ? Decreased GFR ? + -----+ --------+ +| ?30-59 ?| ?Stage three ?| ? Stage three ? + -----+ --------+ +| ?15-29 ?| ?Stage four ? | ? Stage four ?+ ------+ ---------+--------- +| ?<15 (or dialysis) ? ?| ?Stage five ? | ? Stage five ?+ ------+ ---------+--------- + *Each stage assumes the associated GFR level [...] tests). Lab Interpretation Abnormal (test code = 90495-8) [facility] WITH [id number] 02:10:35 Test Item Value Reference Range Interpretation Comments WBC (test code = See_Comment H [Automated 2381-2) message] The sy stem which generated this result transmitted reference range : 4.20 - 10.70 10*3/?L. The reference range was not used to interpret this result as normal/abnormal . RBC (test code = See_Comment [Automated 639-8) message] The sy stem which generated this result transmitted reference range : 4.26 - 5.52 10*6/?L. The reference range was not used to interpret this result as normal/abnormal . HGB (test code = 15.7 g/dL 12.2-16.4 718-7) HCT (test code = 44.5 % 38.4-49.3 4544-3) MCV (test code = 86.2 fL 81.7-95.6 787-2) MCH (test code = 30.4 pg 26.1-32.7 785-6) MCHC (test code = 35.3 g/dL 31.2-35.0 H 786-4) RDW-SD (test code = 42.8 fL 38.5-51.6 17891-4) RDW-CV (test code = 13.7 % 12.1-15.4 788-0) PLT (test code = See_Comment H [Automated 777-3) message] The sy stem which generated this result transmitted reference range : 150 - 328 10*3/ ?L. The reference r ambrosio was not used to interpret this result as normal/abnormal . MPV (test code = 9.6 fL 9.8-13.0 L 83983-0) NRBC/100 WBC (test See_Comment [Automat ed code = 4051357401) message] The system which generated this result transmitted reference range : 0.0 - 10.0 /100 WBCs. The refer ence range was not u sed to interpret th is result as normal/abnormal . NRBC x10^3 (test code See_Comment [Auto mated = 5457473507) message] The s ystem which generated this result transmitted reference range : 10*3/?L. The reference range was not used to interpret this result as normal/abnormal . GRAN MAT (NEUT) % 71.4 % (test code = 770-8) IMM GRAN % (test code 0.50 % = 4607920914) LYMPH % (test code = 19.8 % 736-9) MONO % (test code = 6.0 % 5905-5) EOS % (test code = 1.7 % 713-8) BASO % (test code = 0.6 % 706-2) GRAN MAT x10^3(ANC) 8.52 10*3/uL 1.99-6.95 H (test code = 7824508950) IMM GRAN x10^3 (test 0.06 10*3/uL 0.00-0.06 code = 3644144433) LYMPH x10^3 (test code 2.36 10*3/uL 1.09-3.23 = 731-0) MONO x10^3 (test code 0.72 10*3/uL 0.36-1.02 = 742-7) EOS x10^3 (test code = 0.20 10*3/uL 0.06-0.53 711-2) BASO x10^3 (test code 0.07 10*3/uL 0.01-0.09 = 704-7) Lab Interpretation Abnormal (test code = 37884-9) [facility] WITH [id number] 02:10:35 Test Item Value Reference Range Interpretation Comments WBC (test code = See_Comment H [Automated 4990-2) message] The sy stem which generated this result transmitted reference range : 4.20 - 10.70 10*3/?L. The reference range was not used to interpret this result as normal/abnormal . RBC (test code = See_Comment [Automated 929-8) message] The sy stem which generated this result transmitted reference range : 4.26 - 5.52 10*6/?L. The reference range was not used to interpret this result as normal/abnormal . HGB (test code = 15.7 g/dL 12.2-16.4 718-7) HCT (test code = 44.5 % 38.4-49.3 4544-3) MCV (test code = 86.2 fL 81.7-95.6 787-2) MCH (test code = 30.4 pg 26.1-32.7 785-6) MCHC (test code = 35.3 g/dL 31.2-35.0 H 786-4) RDW-SD (test code = 42.8 fL 38.5-51.6 09283-6) RDW-CV (test code = 13.7 % 12.1-15.4 788-0) PLT (test code = See_Comment H [Automated 777-3) message] The sy stem which generated this result transmitted reference range : 150 - 328 10*3/ ?L. The reference r ambrosio was not used to interpret this result as normal/abnormal . MPV (test code = 9.6 fL 9.8-13.0 L 45035-8) NRBC/100 WBC (test See_Comment [Automat ed code = 7356626383) message] The system which generated this result transmitted reference range : 0.0 - 10.0 /100 WBCs. The refer ence range was not u sed to interpret th is result as normal/abnormal . NRBC x10^3 (test code See_Comment [Auto mated = 5568437705) message] The s ystem which generated this result transmitted reference range : 10*3/?L. The reference range was not used to interpret this result as normal/abnormal . GRAN MAT (NEUT) % 71.4 % (test code = 770-8) IMM GRAN % (test code 0.50 % = 0601868340) LYMPH % (test code = 19.8 % 736-9) MONO % (test code = 6.0 % 5905-5) EOS % (test code = 1.7 % 713-8) BASO % (test code = 0.6 % 706-2) GRAN MAT x10^3(ANC) 8.52 10*3/uL 1.99-6.95 H (test code = 3516028517) IMM GRAN x10^3 (test 0.06 10*3/uL 0.00-0.06 code = 7482843329) LYMPH x10^3 (test code 2.36 10*3/uL 1.09-3.23 = 731-0) MONO x10^3 (test code 0.72 10*3/uL 0.36-1.02 = 742-7) EOS x10^3 (test code = 0.20 10*3/uL 0.06-0.53 711-2) BASO x10^3 (test code 0.07 10*3/uL 0.01-0.09 = 704-7) Lab Interpretation Abnormal (test code = 16773-8) [facility] GLUCOSE (AUTOMATED)2022-03-07 01:47:49 Test Item Value Reference Range Interpretation Comments POCT GLU (test code = 7112195521) 65 mg/dL 70-110 L Lab Interpretation (test code = Abnormal 33642-5) [facility] GLUCOSE (AUTOMATED)2022-03-07 01:47:49 Test Item Value Reference Range Interpretation Comments POCT GLU (test code = 7478169885) 65 mg/dL 70-110 L Lab Interpretation (test code = Abnormal 88688-6) [facility] GLUCOSE (AUTOMATED)2021-03-03 17:40:06 Test Item Value Reference Range Interpretation Comments POCT GLU (test code = 9788179398) 322 mg/dL 70-110 H Lab Interpretation (test code = Abnormal 74581-3) [facility] GLUCOSE (AUTOMATED)2021-03-03 13:09:15 Test Item Value Reference Range Interpretation Comments POCT GLU (test code = 6393316154) 316 mg/dL 70-110 H Lab Interpretation (test code = Abnormal 23938-8) [facility] METABOLIC PANEL (NA, K, CL, CO2, GLUCOSE, BUN, CREATININE, CA)2021-03-03 11:38:31 Test Item Value Reference Range Interpretation Comments NA (test code = 132 mmol/L 135-145 L 6075387916) K (test code = 4.9 mmol/L 3.5-5.0 7001767011) CL (test code = 101 mmol/L 98-108 0322349098) CO2 TOTAL (test code = 27 mmol/L 23-31 9115708225) AGAP (test code = 2-16 1956418111) BUN (test code = 19 mg/dL 7-23 8242560437) GLUCOSE (test code = 318 mg/dL 70-110 H 1560109517) CREATININE (test code = 0.88 mg/dL 0.60-1.25 8044097477) CALCIUM (test code = 9.4 mg/dL 8.6-10.6 6258509589) eGFR (test code = mL/min/1.73m2 0508421902) CLIFF (test code = CLIFF) Association of [...] tests). Lab Interpretation Abnormal (test code = 71595-2) [facility] WITH [id number] 10:44:26 Test Item Value Reference Range Interpretation Comments WBC (test code = See_Comment [Automated 4590-2) message] The sy stem which generated this result transmitted reference range : 4.20 - 10.70 10*3/?L. The reference range was not used to interpret this result as normal/abnormal . RBC (test code = See_Comment [Automated 002-8) message] The sy stem which generated this [...] RDW-SD (test code = 40.4 fL 38.5-51.6 50496-0) RDW-CV (test code = 12.8 % 12.1-15.4 788-0) PLT (test code = See_Comment H [Automated 777-3) message] The sy stem which generated this result transmitted reference range : 150 - 328 10*3/ ?L. The reference r ambrosio was not used to interpret this result as normal/abnormal . MPV (test code = 11.3 fL 9.8-13.0 51956-1) NRBC/100 WBC (test See_Comment [Automat ed code = 8438715942) message] The system which generated this result transmitted reference range : 0.0 - 10.0 /100 WBCs. The refer ence range was not u sed to interpret th is result as normal/abnormal . NRBC x10^3 (test code <0.01 See_Comment [Auto mated = 6260842202) message] The s ystem which generated this result transmitted reference range : 10*3/?L. The reference range was not used to interpret this result as normal/abnormal . GRAN MAT (NEUT) % 51.4 % (test code = 770-8) IMM GRAN % (test code 0.30 % = 2629746368) LYMPH % (test code = 29.5 % 736-9) MONO % (test code = 9.9 % 5905-5) EOS % (test code = 7.3 % 713-8) BASO % (test code = 1.6 % 706-2) GRAN MAT x10^3(ANC) 3.88 10*3/uL 1.99-6.95 (test code = 0569294563) IMM GRAN x10^3 (test <0.03 0.00-0.06 code = 6618962458) LYMPH x10^3 (test code 2.23 10*3/uL 1.09-3.23 = 731-0) MONO x10^3 (test code 0.75 10*3/uL 0.36-1.02 = 742-7) EOS x10^3 (test code = 0.55 10*3/uL 0.06-0.53 H 711-2) BASO x10^3 (test code 0.12 10*3/uL 0.01-0.09 H = 704-7) Lab Interpretation Abnormal (test code = 62860-6) [facility] GLUCOSE (AUTOMATED)2021-03-03 05:25:50 Test Item Value Reference Range Interpretation Comments POCT GLU (test code = 4962659817) 140 mg/dL 70-110 H Lab Interpretation (test code = Abnormal 99447-3) [facility] GLUCOSE (AUTOMATED)2021-03-03 05:25:49 Test Item Value Reference Range Interpretation Comments POCT GLU (test code = 0848618596) 129 mg/dL 70-110 H Lab Interpretation (test code = Abnormal 40365-7) [facility] GLUCOSE (AUTOMATED)2021-03-02 22:33:16 Test Item Value Reference Range Interpretation Comments POCT GLU (test code = 8745200693) 205 mg/dL 70-110 H Lab Interpretation (test code = Abnormal 38964-4) [facility] GLUCOSE (AUTOMATED)2021-03-02 17:32:23 Test Item Value Reference Range Interpretation Comments POCT GLU (test code = 9676320856) 253 mg/dL 70-110 H Lab Interpretation (test code = Abnormal 57926-8) [facility] [id number] 14:39:03 Test Item Value Reference Range Interpretation Comments FREE T4 (test code = See_Comment L [Autom ated message] 4347844904) The system [employer] generated this result transmitted ref erence range: 0.78 - 2 .20 ng/dL:. The ref erence range was not u sed to interpret this result as normal/abnor mal. Lab Interpretation (test Abnormal code = 01156-1) [facility] [id number] 14:38:22 Test Item Value Reference Range Interpretation Comments FREE T3 (test code = 7002948906) 2.94 pg/mL 2.77-5.27 Lab Interpretation (test code = Normal 65288-3) [facility] GLUCOSE (AUTOMATED)2021-03-02 13:04:49 Test Item Value Reference Range Interpretation Comments POCT GLU (test code = 7983823866) 177 mg/dL 70-110 H Lab Interpretation (test code = Abnormal 63458-1) [facility] Metabolic Panel (NA, K, CL, CO2, GLUCOSE, BUN, CREATININE, CA)2021-03-02 12:10:05 Test Item Value Reference Range Interpretation Comments NA (test code = 134 mmol/L 135-145 L 4220377241) K (test code = 4.8 mmol/L 3.5-5.0 8345794722) CL (test code = 106 mmol/L 98-108 3139173720) CO2 TOTAL (test code = 24 mmol/L 23-31 1178867322) AGAP (test code = 2-16 0613058281) BUN (test code = 14 mg/dL 7-23 1590053644) GLUCOSE (test code = 201 mg/dL 70-110 H 2444386046) CREATININE (test code = 0.83 mg/dL 0.60-1.25 8843101621) CALCIUM (test code = 9.4 mg/dL 8.6-10.6 7913852666) eGFR (test code = mL/min/1.73m2 8367643222) CLIFF (test code = CLIFF) Association of [...] tests). Lab Interpretation Abnormal (test code = 36541-3) [facility] GLUCOSE (AUTOMATED)2021-03-02 04:41:03 Test Item Value Reference Range Interpretation Comments POCT GLU (test code = 1196068139) 165 mg/dL 70-110 H Lab Interpretation (test code = Abnormal 32471-9) [facility] GLUCOSE (AUTOMATED)2021-03-01 21:40:23 Test Item Value Reference Range Interpretation Comments POCT GLU (test code = 5037450389) 338 mg/dL 70-110 H Lab Interpretation (test code = Abnormal 64798-1) [facility] GLUCOSE (AUTOMATED)2021-03-01 21:15:20 Test Item Value Reference Range Interpretation Comments POCT GLU (test code = 6569623837) 308 mg/dL 70-110 H Lab Interpretation (test code = Abnormal 74936-8) [facility] [id number] 20:59:15 Test Item Value Reference Range Interpretation Comments TSH (test code = See_Comment H [Automated message] 4290477713) The system [employer] generated this result transmitted ref erence range: 0.45 - 4 .70 mIU/L. The refe rence range was not u sed to interpret this result as normal/abnor mal. Lab Interpretation (test Abnormal code = 17736-3) [facility]A1C)2021-03-01 20:50:54 Test Item Value Reference Range Interpretation Comments HGB A1C (test code = 8.6 % 4.0-5.7 H 4548-4) CLIFF (test code = CLIFF) Reference RangesNormal: <5.7%Prediabetes: 5.7 - 6.4%Diabetes: > 6.5% Lab Interpretation (test Abnormal code = 05240-5) [facility] GLUCOSE (AUTOMATED)2021-03-01 18:26:29 Test Item Value Reference Range Interpretation Comments POCT GLU (test code = 4718636866) 177 mg/dL 70-110 H Lab Interpretation (test code = Abnormal 26016-6) [facility] GLUCOSE (AUTOMATED)2021-03-01 16:52:10 Test Item Value Reference Range Interpretation Comments POCT GLU (test code = 2931478835) 112 mg/dL 70-110 H Lab Interpretation (test code = Abnormal 80833-9) [facility] 16:52:10 Test Item Value Reference Range Interpretation Comments POCT GLU (test code = 6222674953) 154 mg/dL 70-110 H Lab Interpretation (test code = Abnormal 35132-8) [facility] 16:14:23 Test Item Value Reference Range Interpretation Comments MAGNESIUM (test code = 5542095396) 1.8 mg/dL 1.7-2.4 Lab Interpretation (test code = Normal 04670-7) [facility] METABOLIC PANEL (29447)2021-03-01 16:14:02 Test Item Value Reference Range Interpretation Comments NA (test code = 136 mmol/L 135-145 7718480812) K (test code = 4.1 mmol/L 3.5-5.0 4920112218) CL (test code = 105 mmol/L 98-108 7531979193) CO2 TOTAL (test code = 28 mmol/L 23-31 6510566791) AGAP (test code = 2-16 3829480393) BUN (test code = 14 mg/dL 7-23 8794942379) GLUCOSE (test code = 187 mg/dL 70-110 H 6323583307) CREATININE (test code = 0.85 mg/dL 0.60-1.25 6185752569) TOTAL BILI (test code = 0.6 mg/dL 0.1-1.7 8324878894) CALCIUM (test code = 9.0 mg/dL 8.6-10.6 8197087270) T PROTEIN (test code = 7.2 g/dL 6.3-8.2 7748263098) ALBUMIN (test code = 3.9 g/dL 3.5-5.0 6788971069) ALK PHOS (test code = 77 U/L 34-122 7076027915) ALTv (test code = 19 U/L 5-50 1742-6) AST(SGOT) (test code = 25 U/L 13-40 5213632514) eGFR (test code = mL/min/1.73m2 5057361738) CLIFF (test code = CLIFF) Association of [...] tests). Lab Interpretation Abnormal (test code = 55839-7) [facility] WITH [id number] 15:58:21 Test Item Value Reference Range Interpretation Comments WBC (test code = See_Comment H [Automated 0482-2) message] The sy stem which generated this result transmitted reference range : 4.20 - 10.70 10*3/?L. The reference range was not used to interpret this result as normal/abnormal . RBC (test code = See_Comment [Automated 426-2) message] The sy stem which generated this [...] RDW-SD (test code = 41.1 fL 38.5-51.6 11635-6) RDW-CV (test code = 12.7 % 12.1-15.4 788-0) PLT (test code = See_Comment H [Automated 777-3) message] The sy stem which generated this result transmitted reference range : 150 - 328 10*3/ ?L. The reference r ambrosio was not used to interpret this result as normal/abnormal . MPV (test code = 9.6 fL 9.8-13.0 L 15883-5) NRBC/100 WBC (test See_Comment [Automat ed code = 7550786303) message] The system which generated this result transmitted reference range : 0.0 - 10.0 /100 WBCs. The refer ence range was not u sed to interpret th is result as normal/abnormal . NRBC x10^3 (test code <0.01 See_Comment [Auto mated = 4526675179) message] The s ystem which generated this result transmitted reference range : 10*3/?L. The reference range was not used to interpret this result as normal/abnormal . GRAN MAT (NEUT) % 57.2 % (test code = 770-8) IMM GRAN % (test code 0.50 % = 1260582228) LYMPH % (test code = 23.8 % 736-9) MONO % (test code = 8.8 % 5905-5) EOS % (test code = 8.4 % 713-8) BASO % (test code = 1.3 % 706-2) GRAN MAT x10^3(ANC) 6.36 10*3/uL 1.99-6.95 (test code = 2466094428) IMM GRAN x10^3 (test 0.05 10*3/uL 0.00-0.06 code = 0209515107) LYMPH x10^3 (test code 2.64 10*3/uL 1.09-3.23 = 731-0) MONO x10^3 (test code 0.98 10*3/uL 0.36-1.02 = 742-7) EOS x10^3 (test code = 0.93 10*3/uL 0.06-0.53 H 711-2) BASO x10^3 (test code 0.14 10*3/uL 0.01-0.09 H = 704-7) Lab Interpretation Abnormal (test code = 09233-2) [id number] 06:00:00 Test Item Value Reference Range Interpretation Comments CULTURE (BEAKER) (test No growth in 5 days code = 1095) URINE [id number] 10:25:00 Test Item Value Reference Range Interpretation Comments CULTURE (BEAKER) (test code = 1095) No growth POCT-GLUCOSE [id number] 17:10:00 Test Item Value Reference Range Interpretation Comments POC-GLUCOSE METER 232 mg/dL 70-[address] [facility] 6720 (BEAKER) (test code = CESAR Servin [facility] 1538) [address] CT, CTANGIO [id number] 16:41:00CTV pleaseFINAL REPORT CTV brain 02/13/2018 4:35 [...] mass effect.2. Unremarkable intracranial CTV.3. Sinusitis. Signed: Quinn Sky Verified Date/Time: 02/13/2018 16:41:24 Reading Location: [facility] Radiology Reading Room -GLUCOSE [id number] 13:07:00 Test Item Value Reference Range Interpretation Comments POC-GLUCOSE METER 311 mg/dL 70-110 H Notified R Ivonen MUÑOZ/TESTED (BEAKER) (test code = AT [address]) [place] [address] 0 IRON, TIBC, % SAT. (WITHOUT FERRITIN)2018-02-13 10:10:00 Test Item Value Reference Range Interpretation Comments IRON (BEAKER) (test code = 547) 49 ug/dL 40-160 TOTAL IRON BINDING CAPACITY 231 ug/dL 250-450 L (BEAKER) (test code = 769) IRON % SATURATION (2) (BEAKER) 21 % 20-55 (test code = 2590) POCT-GLUCOSE [id number] 08:50:00 Test Item Value Reference Range Interpretation Comments POC-GLUCOSE METER 348 mg/dL 70-110 H Notified R Ivonne MUÑOZ/TESTED (BEAKER) (test code = AT [address]) [place] [address] 0 BASIC METABOLIC [id number] 08:31:00 Test Item Value Reference Range Interpretation [...] 697) EGFR (BEAKER) (test 80 mL/min/1.73 ESTIMA JAY GFR IS code = 1092) sq m NOT ACCURATE CREATININE CLEARANCE IN PREDICTING GLOMERULAR FILTRATION RATE . ESTIMATED GFR I S NOT APPLICABLE FOR DIALYSIS PATIEN TS. LIPID [id number] 08:31:00 Test Item Value Reference Range Interpretation [...] 130-159 High 160-189 Very High >=190IMMATURE RETICULOCYTE [id number] 08:16:00 Test Item Value Reference Range Interpretation Comments IMMATURE RETIC FRACTION (BEAKER) 8.600 % 2.300-13.400 (test code = 1447) RETICULOCYTE COUNT PCT (BEAKER) (test 1.4 % 0.5-1.8 code = 575) CBC W/PLT COUNT & AUTO [id number] 08:16:00 Test Item Value Reference Range Interpretation [...] PERCENT (BEAKER) (test code = 2801) POCT-GLUCOSE [id number] 21:18:00 Test Item Value Reference Range Interpretation Comments POC-GLUCOSE METER 226 mg/dL 70-[address] [facility] 6720 (BEAKER) (test code = CESAR [place] 1538) [address] MR, BRAIN, WITHOUT [id number] 19:43:00FINAL REPORT MRI brain without contrast INDICATION: [...] thrombus cannot be excluded. The major proximal [place] flow voids are maintained. Mild [...] mucosal disease. Consider ENT follow up. Signed: Jostin Gregory Verified Date/Time: 02/12/2018 19:43:32 Reading Location: [facility] Radiology Reading Room -GLUCOSE [id number] 19:01:00 Test Item Value Reference Range Interpretation Comments POC-GLUCOSE METER 362 mg/dL 70-[address] [facility] 67 (ADAMBANNER) (test code = [place] 1538) [address] EEG AWAKE AND [id number] 17:46:00Reason for exam:->SeizureShould this be performed at the bedside?->YesCH[facility] EEG REPORTDATE OF TEST: 60-5-4617YREC OF REPORT: [id number]: [id number]: [id number] time: 14:04Stop time: 14:24ICD-10: R56.9CPT Code: 93680LUUXUUY: 40 y old 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, [...] this report.Queenie Loco MD, PhDClinical Neurophysiology/Epilepsy AttendingCHI [facility] POCT-GLUCOSE [id number] 15:33:00 Test Item Value Reference Range Interpretation Comments POC-GLUCOSE METER 213 mg/dL 70-[address] [facility] 6720 ([facility]) (test code = [place] 1538) [address] TSH/FREE T4 IF [id number] 09:35:00 Test Item Value Reference Range Interpretation Comments THYROID STIMULATING HORMONE 4.03 uIU/mL 0.35-4.94 (ADAMBANNER) (test code = 772) HEMOGLOBIN [id number] 08:47:00 Test Item Value Reference Range Interpretation Comments HEMOGLOBIN A1C (BEAKER) (test code = 6.5 % 4.3-6.1 H 368) POCT-GLUCOSE [id number] 07:55:00 Test Item Value Reference Range Interpretation Comments POC-GLUCOSE METER 219 mg/dL 70-[address] [facility] 6720 (BEAKER) (test code = [place] 1538) [address] [id number] 05:00:00 Test Item Value Reference Range Interpretation Comments MAGNESIUM (BEAKER) (test code = 2.1 mg/dL 1.6-2.6 627) BASIC METABOLIC [id number] 05:00:00 Test Item Value Reference Range Interpretation [...] PATIEN TS. CBC W/PLT COUNT & AUTO [id number] 04:40:00 Test Item Value Reference Range Interpretation [...] PERCENT (BEAKER) (test code = 2801) POCT-GLUCOSE [id number] 04:31:00 Test Item Value Reference Range Interpretation Comments POC-GLUCOSE METER 183 mg/dL 70-[address] [facility] 6720 ([facility]) (test code = [place] 1538) [address] RAD, ABDOMEN/KUB, 1 VIEW [id number] 01:33:00Reason for exam:->Abdominal distension, obtundationFINAL REPORT CLINICAL [...] instrumentation. Vascular calcification in the pelvis. Signed: Amy De Leon MDReport Verified Date/Time: 02/12/2018 01:33:19 Reading Location: [address] Transitional Reading Room POCT-GLUCOSE METER 2018-02-12 00:49:00 Test Item Value Reference Range Interpretation Comments POC-GLUCOSE METER 346 mg/dL 70-[address] [facility] 67[address] ([facility]) (test code = [place] [address]) [address] CBC W/PLT COUNT & AUTO [id number] 00:44:00 Test Item Value Reference Range Interpretation Comments WHITE BLOOD CELL COUNT (BEAKER) 14.3 K/ L 3.5-10.5 H (test code = 775) RED BLOOD CELL COUNT (AKER) 4.26 M/ L 4.63-6.08 L (test code = 761) HEMOGLOBIN (BEAKER) (test code = 13.8 GM/DL 13.7-17.5 410) HEMATOCRIT ([facility]) (test code = 42.1 % [...] (test code = 2801) RAPID DRUG SCREEN, [id number] 00:35:00 Test Item Value Reference Range Interpretation [...] situations. Chain of custody not maintained. Some cuog-xkm-hahsnty medications, as well as adulterants, may cause [...] acute neurological disease, and persistent tachyarrhythmia.COMPREHENSIVE METABOLIC [id number] 00:09:00 Test Item Value Reference Range Interpretation [...] 347) EGFR (BEAKER) (test 78 mL/min/1.73 ESTIMA JAY GFR IS code = 1092) sq m NOT ACCURATE CREATININE CLEARANCE IN PREDICTING GLOMERULAR FILTRATION RATE . ESTIMATED GFR I S NOT APPLICABLE FOR DIALYSIS PATIEN TS. URINALYSIS W/ [id number] 00:06:00 Test Item Value Reference Range Interpretation [...] = Rare 1574) SOURCE(BEAKER) (test code = 9533) RAD, CHEST, 1 VIEW, NON [id number] 23:11:00Reason for exam:->Obtundation with coarse respirations, baselineShould this be [facility]?->YesFINAL REPORT RAD, CHEST, 1 VIEW, NON DEPT INDICATION: Obtundation with coarse respirations, baseline COMPARISON: None. FINDINGS: Portable frontal view of the chest. IMPRESSION: Support Lines: None. Lungs and pleura: Clear lungs. No pneumothorax.Heart and mediastinum: Unremarkable.Additional findings: Fluid and gaseous distention of the gastric lumen. Signed: JR Lozano Robert MDReport Verified Date/Time: 02/11/2018 23:11:04 Reading Location: [address] Reading Room "
--- NOTE | 2022-03-22 21:59 | RAD REPORT ---
EXAM DESCRIPTION: CT - Head Brain Wo Cont - 03/22/2022 9:42 pm CLINICAL HISTORY: Mental status change, unknown cause COMPARISON: Head Brain Wo Cont dated 11/13/2020 TECHNIQUE: Axial 5 mm thick images of the head were obtained without IV contrast. All CT scans are performed using dose optimization technique as appropriate and may include automated exposure control or mA/KV adjustment according to patient size. FINDINGS: No intracranial hemorrhage, mass, edema or shift of mid-line structures. No acute infarcti on changes seen. No abnormal extra-axial fluid collections. Cerebral and cerebellar volume match comp arison. Ventricles are normal size. Intracranial contents are similar to comparison. Mastoid air cells are clear. There is near complete opacification of the right maxillary sinus with m ucosal thickening seen in the left maxillary sinus. Right maxillary sinus wall changes indicate chron ic sinusitis. No acute bony findings. IMPRESSION: No acute intracranial finding. Intracranial findings similar to November 2020. Chronic sinusitis and right maxillary sinus with scattered mucosal thickening elsewhere in the sinuse s.
[2022-03-22 22:11] LABS: Urine Blood Negative (Negative); Urine Glucose Trace (Negative); Urine Protein Negative (Negative); Urine Specific Gravity <=1.005 (1.005-1.030)
[2022-03-22 22:38] LABS: Barbiturates NEGATIVE (NEGATIVE); Benzodiazepines NEGATIVE (NEGATIVE); Cocaine NEGATIVE (NEGATIVE); METHAMPHETAM NEGATIVE (NEGATIVE); Methadone NEGATIVE (NEGATIVE); Opiates NEGATIVE (NEGATIVE); Phencyclidine NEGATIVE (NEGATIVE); THC Cannibis NEGATIVE (NEGATIVE)
[2022-03-22 22:57] LABS: Arterial Blood Carboxyhemoglob 4.1 % (0-1.5); Blood Gas Oxyhemoglobin 90.2 % (94-97); Blood O2 Saturation 95.4 % (92-98.5)
[2022-03-22 23:05] LABS: Absolute Lymphocytes (CBC) 2.5 K/uL (0.7-4.9); Hematocrit 40.4 % (39.6-49.0); Lymphocytes % 19.4 % (15.3-44.8); MCV 89.6 fL (80-100); MPV 8.5 fL (7.6-11.3); RBC Red Blood Cell Count 4.51 M/uL (4.33-5.43)
[2022-03-22 23:10] LABS: Glucose Level 289 mg/dL (74-106)
[2022-03-23 00:35] LABS: ALT/SGPT 27 U/L (12-78); AST/SGOT 51 U/L (15-37); Albumin 2.7 g/dL (3.4-5.0); Alkaline Phosphatase 142 U/L (45-117); BUN Blood Urea Nitrogen 10 mg/dL (7-18); Bicarbonate 28 mmol/L (21-32); Bilirubin Total 0.4 mg/dL (0.2-1.0); Glomerular Filtration Rate 74 ml/min (=/>90); Protein, Total 7.3 g/dL (6.4-8.2); Sodium Level 135 mmol/L (136-145)
[2022-03-23 00:36] LABS: Potassium 2.6 mmol/L (3.5-5.1)
[2022-03-23] MEDS ORDERED: POTASSIUM CL SA 10 MEQ TAB PO ONE (01:09)
[2022-03-23] MEDS ORDERED: KCL 20 MEQ/100 mL IVPB 100 ML IV ONE ×2 (01:10→01:13)
[2022-03-23] MEDS ORDERED: Magnesium Sulfate 2gm IVPB 2 G/50 ML BAG IV ONE (01:11)
[2022-03-23] MEDS ORDERED: NA CHLORIDE 0.9% 500 ML ONE (01:12)
[2022-03-23] MEDS ORDERED: POTASSIUM 25 MEQ EFFERV TAB ONE (01:41)
--- NOTE | 2022-03-23 02:03 | EDPHYS ---
Physician Documentation [facility] Name: Surjit Stubbs Age: 47 yrs Sex: Male : 1975 Arrival Date: 03/22/2022 Time: 21:28 Bed 19 Private MD: ED Physician Mack Goldberg HPI: 03/22 22:09 This 47 yrs old Male presents to ER via EMS with complaints of Altered mental status. rt 22:09 Onset: The symptoms/episode began/occurred at an unknown time. Possible causes: drug rt use, alcohol. Associated signs and symptoms: The patient has no apparent associated signs or symptoms. Unable to obtain HPI due to altered mental status. Patient presents to the ED by EMS for altered mental status. The patient reportedly pulled a 21 pill [place] prescription today as well as drank about a bottle of tequila. The patient was found to be confused. He has no complaints at this time. No reported trauma. No other history could be obtained.. Historical: - Allergies: 03/23 00:04 tramadol; ha1 - Immunization history:: Adult Immunizations unknown. - Social history:: Smoking status: unknown. - Unable to obtain history due to: altered mental status. ROS: 03/22 22:09 Unable to obtain ROS due to altered mental status. rt Exam: 22:09 Constitutional: This is a well developed, well nourished patient who is awake, alert, rt and in no acute distress. Eyes: Pupils equal round and reactive to light, extra-ocular motions intact. Lids and lashes normal. Conjunctiva and sclera are non-icteric and not injected. Cornea within normal limits. Periorbital areas with no swelling, redness, or edema. ENT: Nares patent. No nasal discharge, no septal abnormalities noted. Tympanic membranes are normal and external auditory canals are clear. Oropharynx with no redness, swelling, or masses, exudates, or evidence of obstruction, uvula midline. Mucous membranes moist. Neck: Trachea midline, no thyromegaly or masses palpated, and no cervical lymphadenopathy. Supple, full range of motion without nuchal rigidity, or vertebral point tenderness. No Meningismus. Chest/axilla: Normal chest wall appearance and motion. Nontender with no deformity. No lesions are appreciated. Cardiovascular: Regular rate and rhythm with a normal S1 and S2. No gallops, murmurs, or rubs. Normal PMI, no JVD. No pulse deficits. Respiratory: Lungs have equal breath sounds bilaterally, clear to auscultation and percussion. No rales, rhonchi or wheezes noted. No increased work of breathing, no retractions or nasal flaring. Abdomen/GI: Soft, non-tender, with normal bowel sounds. No distension or tympany. No guarding or rebound. No evidence of tenderness throughout. Skin: Warm, dry with normal turgor. Normal color with no rashes, no lesions, and no evidence of cellulitis. MS/ Extremity: Pulses equal, no cyanosis. Neurovascular intact. Full, normal range of motion. 22:09 Head/face: 22:09 Neuro: Confused, slurred speech, no facial droop, cranial nerves II through XII intact, strength and sensation intact in upper and lower extremities.. 23:33 ECG was reviewed by the Attending Physician. rt Vital Signs: 21:37 BP 129 / 89; Pulse 88; Resp 14 S; Temp 98; Pulse Ox 97% on R/A; Weight 77.11 kg; Height ha1 5 ft. 7 in. (170.18 cm); 22:30 BP 130 / 85; Pulse 95; Resp 18 S; Pulse Ox 99% on R/A; ha1 23:30 BP 122 / 75; Pulse 97; Resp 16 S; Pulse Ox 100% on R/A; ha1 03/23 00:25 BP 119 / 77; Pulse 94; Resp 16 S; Pulse Ox 100% on R/A; ha1 01:20 BP 127 / 62; Pulse 102; Resp 14 S; Pulse Ox 96% on R/A; ha1 01:40 BP 117 / 68; Pulse 100; Resp 14 S; Pulse Ox 97% on R/A; ha1 02:20 BP 121 / 76; Pulse 98; Resp 14 S; Pulse Ox 98% on R/A; ha1 13:00 BP 151 / 83; Pulse 84; Resp 16; Pulse Ox 98% on R/A; tp1 03/22 21:37 Body Mass Index 26.63 (77.11 kg, 170.18 cm) ha1 MDM: 03/22 21:29 Patient medically screened. rt 03/23 02:03 Differential Diagnosis: CVA, electrolyte abnormality, alcohol intoxication, rt hypoglycemia, intracranial bleed, overdose. Data reviewed: vital signs, nurses notes, lab test result(s), EKG, radiologic studies. ED course: Presents to the ED with reported altered mental status. He reportedly took 21 [place] tablets as well as drink a bottle of vodka. His UDS is negative and he has no salicylates, acetaminophen and his bloodstream. He does have an elevated alcohol level. Patient was initially able to speak with slurred speech, however, his mental status worsened. He is found to be hypokalemic, will give potassium and magnesium, will admit for further care. The patient moves all 4 extremities equally, for this reason without lateralizing deficits, do not suspect an acute CVA.. 03/22 21:31 Order name: CBC with Diff; Complete Time: 23:21 rt 03/22 21:31 Order name: Alcohol Level; Complete Time: 23:21 rt 03/22 21:31 Order name: Salicylate; Complete Time: 23:21 rt 03/22 21:31 Order name: Tylenol Level; Complete Time: 01:09 rt 03/22 21:31 Order name: UDS; Complete Time: 22:58 rt 03/22 21:31 Order name: ABG; Complete Time: 23:21 rt 03/22 21:31 Order name: TSH; Complete Time: : rt 03/22 22:12 Order name: Urine Dipstick-Ancillary; Complete Time: 22:58 EDMS 03/22 22:37 Order name: Glucose, Ancillary Testing; Complete Time: 22:58 EDMS 03/22 23:13 Order name: T4 Free; Complete Time: 01: EDMS 03/22 23:41 Order name: Comprehensive Metabolic Panel; Complete Time: 01:09 EDMS 03/22 21:31 Order name: CT Head Brain wo Cont; Complete Time: 22:05 rt 03/22 21:31 Order name: Glucose Level; Complete Time: 22:30 rt 03/22 21:31 Order name: EKG; Complete Time: 21:32 rt 03/23 01:00 Order name: Magnesium; Complete Time: 01:09 EDMS 03/23 02:11 Order name: Glucose, Ancillary Testing; Complete Time: 02:12 EDMS 03/23 03:20 Order name: SARS RAPID ha1 03/23 04:03 Order name: SARS-COV-2 Antigen Rapid EDMS 03/23 05:15 Order name: Basic Metabolic Panel EDLA 03/23 08:48 Order name: Glucose, Ancillary Testing EDMS 03/23 12:47 Order name: Glucose, Ancillary Testing EDLA 03/23 16:45 Order name: Glucose, Ancillary Testing EDLA 03/22 21:31 Order name: EKG - Nurse/Tech; Complete Time: 23:06 rt 03/22 21:55 Order name: Urine Dipstick-Ancillary (obtain specimen); Complete Time: 22:30 mw2 EC/15 23:33 Rate is 89 beats/min. Rhythm is regular, Normal Sinus Rhythm. QRS [place] is Normal. [place] rt interval is normal. QRS interval is normal. QT interval is prolonged at 515 msec. No Q waves. T waves are Normal. No ST changes noted. Interpreted by me. Administered Medications: 03/23 01:39 Drug: Potassium Chloride 40 mEq Route: IV; Rate: calculated rate; Site: right ha1 antecubital; 05:19 Follow up: Response: No adverse reaction; IV Status: Completed infusion; IV Intake: ha1 200ml 01:42 Drug: Magnesium Sulfate 2 grams Route: IVPB; Infused Over: 2 hrs; Site: right ha1 antecubital; 04:57 Follow up: Response: No adverse reaction; IV Status: Completed infusion; IV Intake: [id number] 01:50 Not Given (pt. unable to swallow): Potassium Chloride 40 mEq PO once ha1 02:34 Drug: NS 0.9% 1000 ml Route: IV; Rate: 1 bolus; Site: right antecubital; ha1 05:20 Follow up: Response: No adverse reaction; IV Status: Completed infusion; IV Intake: ha1 1000ml 02:34 Drug: Banana Bag - (NS 0.9% 1000 ml, foLIC Acid 1 mg, Thiamine 100 mg, Multivitamin 1 ha1 amp) Route: IV; Rate: calculated rate; Site: right antecubital; 08:39 Follow up: Response: No adverse reaction; IV Status: Completed infusion; IV Intake: ll1 1000ml Disposition: 02:53 Critical Care:. rt Disposition Summary: 03/23/22 02:02 Hospitalization Ordered Hospitalization Status: Observation rt Provider: Luz Cobb rt Condition: Fair rt Problem: new rt Symptoms: have worsened rt Bed/Room Type: Standard rt Location: Telemetry/MedSurg (observation)(03/23/22 16:11) bd Room Assignment: (03/23/22 16:31) bd Diagnosis - Altered mental status, unspecified rt - Alcohol abuse with intoxication rt - Hypokalemia rt Forms: - Medication Reconciliation Form rt - SBAR form rt Critical care time excluding procedures: 02:53 Critical care time: Bedside Care: 30 minutes, Consultation: 5 minutes. Total time: 35 rt minutes Signatures: Dispatcher [employer] EDMS Carmen Smith bd Florinda Bond, RN RN cg Manfred Helm mw2 Vikki Hall RN RN ha1 Luz Cobb, PA-C PA-C sb4 Mack Goldberg MD MD rt Weston Ko RN ll1 Corrections: (The following items were deleted from the chart) 03/22 23:43 21:32 GLUCOSE+C.LAB.BRZ ordered. EDMS EDMS 23:43 23:30 GLUCOSE+C.LAB.BRZ reviewed. rt EDMS 23:43 23:36 COMPREHENSIVE METABOLIC PANEL+C.LAB.BRZ ordered. EDMS EDMS 03/23 01:00 00:54 MAGNESIUM+C.LAB.BRZ ordered. EDMS EDMS 02:53 02:02 Telemetry/MedSurg (observation) rt cg 02:53 02:02 rt cg 16:11 02:53 BR ER HOLD cg bd 16:11 02:53 ERHOLD- cg bd 16:31 16:11 209 bd bd
--- NOTE | 2022-03-23 02:03 | ER ---
Nurse's Notes [facility] Name: Surjit Stubbs Age: 47 yrs Sex: Male : 1975 Arrival Date: 03/22/2022 Time: 21:28 Bed 19 Private MD: Diagnosis: Altered mental status, unspecified;Alcohol abuse with intoxication;Hypokalemia Presentation: 03/22 22:06 Chief complaint: EMS states: Pt was last seen normal by his friend around 1730. He had jb4 a full bottle of lilquor and his friend reports his pill bottle was full at that time. upon EMS arrival at 2030 the bottle which appeared to be 1.5L was 3[address] His pill bottle was also empty. BGL 200. Pt reports only taking 2 pills. Coronavirus screen: At this time, the client does not indicate any symptoms associated with coronavirus-19. Ebola Screen: No symptoms or risks identified at this time. Initial Sepsis Screen: Does the patient meet any 2 criteria? No. Patient's initial sepsis screen is negative. Does the patient have a suspected source of infection? No. Patient's initial sepsis screen is negative. Risk Assessment: Do you want to hurt yourself or someone else? Patient reports no desire to harm self or others. Onset of symptoms was March 22, 2022 at 20:30. Transition of care: patient was not received from another setting of care. 22:06 Method Of Arrival: EMS: [facility] jb4 22:06 Acuity: TOI 2 jb4 Historical: - Allergies: 03/23 00:04 tramadol; ha1 - Immunization history:: Adult Immunizations unknown. - Social history:: Smoking status: unknown. - Unable to obtain history due to: altered mental status. Screenin/15 21:39 Abuse screen: Denies threats or abuse. Denies injuries from another. Nutritional ha1 screening: No deficits noted. Tuberculosis screening: No symptoms or risk factors identified. Fall Risk IV access (20 points). Gait- Weak (10 pts.). Mental Status- Overestimates/Forgets Limitations (15 pts.). Total Beck Fall Scale indicates High Risk Score (45 or more points). Fall prevention measures have been instituted. Side Rails Up X 2 Placed Close to Nursing Station Frequent Obs/Assessments Occuring As available patient and family educated on Fall Prevention Program and Strategies. Assessment: 21:38 General: Appears comfortable, Behavior is cooperative, drowsy. Pain: Denies pain. ha1 Neuro: Li Agitation-Sedation Scale (RASS): -1 Drowsy Level of Consciousness is awake, lethargic, Oriented to person, place. Cardiovascular: Capillary refill < 3 seconds Patient's skin is warm and dry. Rhythm is sinus rhythm. Respiratory: Airway is patent Trachea midline Respiratory effort is even, unlabored, Respiratory pattern is regular, symmetrical. GI: No signs and/or symptoms were reported involving the gastrointestinal system. Abdomen is flat, non-distended, Bowel sounds present X 4 quads. : No signs and/or symptoms were reported regarding the genitourinary system. Derm: Skin is healthy with good turgor, Skin is pink, warm \T\ dry. Musculoskeletal: Circulation, motion, and sensation intact. Capillary refill < 3 seconds. 21:39 Reassessment: going to CT. ha1 21:39 Neuro: Level of Consciousness is awake, lethargic, Oriented to. ha1 22:30 Reassessment: Patient and/or family updated on plan of care and expected duration. Pain ha1 level reassessed. Patient is alert, oriented x 3, equal unlabored respirations, skin warm/dry/pink. Neuro: Li Agitation-Sedation Scale (RASS): -1 Drowsy Level of Consciousness is awake, lethargic, Oriented to person. Respiratory: Respiratory effort is even, unlabored, Respiratory pattern is regular, symmetrical. 23:24 Reassessment: Patient and/or family updated on plan of care and expected duration. Pain ha1 level reassessed. Patient is alert, oriented x 3, equal unlabored respirations, skin warm/dry/pink. Patient denies pain at this time. 03/23 00:25 Reassessment: Patient and/or family updated on plan of care and expected duration. Pain ha1 level reassessed. response to verbal stimuli. alert and oriented times three name, place, and time. Respiratory: Airway is patent Trachea midline Respiratory effort is even, unlabored, Respiratory pattern is regular, symmetrical. 01:20 Reassessment: Patient and/or family updated on plan of care and expected duration. Pain ha1 level reassessed. notified charge nurse and in shift. 01:20 General: Behavior is drowsy. Neuro: Neuro: Level of Consciousness is unresponsive, ha1 unresponsive to verbal stimuli and sternal rub.. Respiratory: Airway is patent Trachea midline Respiratory effort is even, unlabored, Respiratory pattern is regular, symmetrical. 02:20 Reassessment:. Neuro: Level of Consciousness is lethargic, Pupils are PERRLA. Neuro: ha1 Level of Consciousness is lethargic, Pupils are PERRLA. Respiratory: Airway is patent Respiratory effort is even, unlabored, Respiratory pattern is regular, symmetrical. 07:08 Reassessment: No changes from previously documented assessment. report received from 1 tubing tester RN. Vital Signs: 03/22 21:37 BP 129 / 89; Pulse 88; Resp 14 S; Temp 98; Pulse Ox 97% on R/A; Weight 77.11 kg; Height ha1 5 ft. 7 in. (170.18 cm); 22:30 BP 130 / 85; Pulse 95; Resp 18 S; Pulse Ox 99% on R/A; ha1 23:30 BP 122 / 75; Pulse 97; Resp 16 S; Pulse Ox 100% on R/A; ha1 03/23 00:25 BP 119 / 77; Pulse 94; Resp 16 S; Pulse Ox 100% on R/A; ha1 01:20 BP 127 / 62; Pulse 102; Resp 14 S; Pulse Ox 96% on R/A; ha1 01:40 BP 117 / 68; Pulse 100; Resp 14 S; Pulse Ox 97% on R/A; ha1 02:20 BP 121 / 76; Pulse 98; Resp 14 S; Pulse Ox 98% on R/A; ha1 13:00 BP 151 / 83; Pulse 84; Resp 16; Pulse Ox 98% on R/A; tp1 03/22 21:37 Body Mass Index 26.63 (77.11 kg, 170.18 cm) 1 ED Course: 03/22 21:28 Patient arrived in ED. mw2 21:29 Mack Goldberg MD is Attending Physician. rt 21:30 Door closed. Noise minimized. Warm blanket given. ha1 21:37 Vikki Hall, MELANIE is Primary Nurse. ha1 21:38 Arm band placed on right wrist. ha1 21:38 Patient has correct armband on for positive identification. Placed in gown. Bed in low ha1 position. Call light in reach. Side rails up X 1. 21:43 CT Head Brain wo Cont In Process Unspecified. EDMS 22:08 Triage completed. jb4 22:30 Salicylate Sent. ha1 22:30 Tylenol Level Sent. ha1 22:31 CBC with Diff Sent. ha1 03/23 02:02 Luz Cobb PA-C is Hospitalizing Provider. rt 02:20 Inserted saline lock: 20 gauge in left antecubital area, using aseptic technique. ha1 04:00 No provider procedures requiring assistance completed. ha1 04:00 Patient admitted, IV remains in place. ha1 Administered Medications: 01:39 Drug: Potassium Chloride 40 mEq Route: IV; Rate: calculated rate; Site: right ha1 antecubital; 05:19 Follow up: Response: No adverse reaction; IV Status: Completed infusion; IV Intake: ha1 200ml 01:42 Drug: Magnesium Sulfate 2 grams Route: IVPB; Infused Over: 2 hrs; Site: right ha1 antecubital; 04:57 Follow up: Response: No adverse reaction; IV Status: Completed infusion; IV Intake: [id number] 01:50 Not Given (pt. unable to swallow): Potassium Chloride 40 mEq PO once ha1 02:34 Drug: NS 0.9% 1000 ml Route: IV; Rate: 1 bolus; Site: right antecubital; ha1 05:20 Follow up: Response: No adverse reaction; IV Status: Completed infusion; IV Intake: ha1 1000ml 02:34 Drug: Banana Bag - (NS 0.9% 1000 ml, foLIC Acid 1 mg, Thiamine 100 mg, Multivitamin 1 ha1 amp) Route: IV; Rate: calculated rate; Site: right antecubital; 08:39 Follow up: Response: No adverse reaction; IV Status: Completed infusion; IV Intake: ll1 1000ml Medication: 04:00 VIS not applicable for this client. ha1 Intake: 04:57 IV: 50ml; Total: 50ml. ha1 05:19 IV: 200ml; Total: 250ml. ha1 05:20 IV: 1000ml; Total: 1250ml. ha1 08:39 IV: 1000ml; Total: 2250ml. ll1 Outcome: 02:02 Decision to Hospitalize by Provider. rt 04:00 Condition: stable ha1 04:00 Admitted to ER Hold. Please see [facility] for further documentation. ha1 04:00 Discharge instructions given to patient, Instructed on the need for admit, Demonstrated understanding of instructions. 17:36 Patient left the ED. tp1 Signatures: Dispatcher [employer] EDSurjit Hubbard, RN RN jb4 Manfred Helm mw2 Weston Ko RN RN ll1 Love Contreras RN RN tp1 Vikki Hall RN RN ha1 Mack Goldberg MD MD rt Corrections: (The following items were deleted from the chart) 03/22 23:22 21:37 Reassessment: Patient is alert, oriented x 3, equal unlabored respirations, skin ha1 warm/dry/pink. going to CT ha1 03/23 00:55 03/22 21:39 Reassessment: Patient is alert, oriented x 3, equal unlabored respirations, ha1 skin warm/dry/pink. going to CT ha1
[2022-03-23] MEDS ORDERED: NA CHLORIDE 0.9% 2,000 ML ONE (02:24)
[2022-03-23] MEDS ORDERED: THIAMINE 200 MG/2 ML INJ ONE (02:24)
[2022-03-23] MEDS ORDERED: MULTIVITAMINS 10 ML VIAL (INJ) IV ONE (02:25)
[2022-03-23] MEDS ORDERED: FOLIC ACID 5 MG/ML VIAL ONE (02:27)
--- NOTE | 2022-03-23 02:31 | P.HP ---
Certification for Inpatient Patient admitted to: Observation With expected LOS: <2 Midnights Patient will require the following post-hospital care: None Practitioner: I am a practitioner with admitting privileges, knowledge of patient current condition, hospital course, and medical plan of care. Services: Services provided to patient in accordance with Admission requirements found in Title 42 Section 412.3 of the Code of Federal Regulations Patient History Date of Service: 03/23/22 Reason for admission: Etoh abuse, AMS History of Present Illness: Patient is a 47 year old male with past medical history significant for type 1 diabetes, hypothyroidism, hyperlipidemia, and alcohol abuse who presented to the ED via EMS with altered mental status. EMS reported that patient was found with a 1.5L tequila bottle 1/4 full and an empty bottle of [place]. Patient reports that he only took 2 [place], but his friends report he took the whole bottle. His UDS and acet level in the ED are negative. Etoh 304, TSH 6.5, WBC 13, potassium 2.6. QT is prolonged. Patient initially was alert and oriented x 3 and answering questions appropriately, but he later became less responsive and more difficult to arouse. Vital signs have remained stable. No unilateral deficits noted. Head CT is negative. Due to his decreased mental status, ED provider wishes to admit patient for observation. Allergies tramadol Allergy (Verified 01/13/20 07:25) Nausea/Vomiting Home Medications: Insulin -Regular Human [Novolin -R*] See Protocol SQ ACHS 05/06/17 Multivitamin [Daily Multiple Vitamin] 1 tab PO DAILY 05/06/17 Glucagon,Human Recombinant [Glucagon Emergency Kit] 1 mg IM PRN PRN #5 vial 12/02/20 Insulin 70/30 NPH/Reg Human [Novolin 70/30*] 25 unit SQ BIDAC #10 ml 12/02/20 Pregabalin [Lyrica*] 100 mg PO BID #60 cap 12/02/20 Thiamine HCl [Vitamin B-1*] 100 mg PO DAILY #30 tablet 12/02/20 Thyroid Tab [[place] Thyroid*] 120 mg PO DAILY #30 tab 12/02/20 gemfibroziL [Lopid*] 600 mg PO BID #60 tab 12/02/20 - Past Medical/Surgical History Diabetic: Yes -: Diabetes mellitus type 1 -: Hypothyroidism -: Hyperlipidemia -: Alcohol abuse -: neuropathy -: adenoidectomy Psychosocial/ Personal History: Patient currently lives at home alone - Family History Father -: Heart disease, Diabetes - Social History Smoking Status: Never smoker Alcohol use: Yes CD- Drugs: No Caffeine use: Yes Place of Residence: Home Review of Systems is unable to be obtained Physical Examination - Physical Exam General: Alert, In no apparent distress HEENT: Atraumatic, PERRLA, EOMI, Sclerae nonicteric Neck: Supple, 2+ carotid pulse no bruit, No LAD, Without JVD or thyroid abnormality Respiratory: Clear to auscultation bilaterally, Normal air movement Cardiovascular: Regular rate/rhythm, Normal S1 S2 Gastrointestinal: Normal bowel sounds, No tenderness Musculoskeletal: No tenderness Integumentary: No rashes Neurological: Normal tone, Sensation intact - Studies Laboratory Data (last 24 hrs) 03/23/22 00:54: Magnesium Cancelled 03/22/22 23:36: Sodium Cancelled, Potassium Cancelled, BUN Cancelled, Creatinine Cancelled, Glucose Cancelled, Total Bilirubin Cancelled, AST Cancelled, ALT Cancelled, Alkaline Phosphatase Cancelled 03/22/22 22:25: Sodium 135 L, Potassium 2.6 L*, BUN 10, Creatinine 1.21, Glucose 289 H, Magnesium 2.0, Total Bilirubin 0.4, AST 51 H, ALT 27, Alkaline Phosphatase 142 H 03/22/22 22:25: WBC 13.10 H, Hgb 13.3 L, Hct 40.4, Plt Count 645 H Assessment and Plan - Problems (Diagnosis) (1) Altered mental status Current Visit: Yes Status: Acute Qualifiers: Altered mental status type: unspecified Qualified Code(s): R41.82 - Altered mental status, unspecified (2) Alcohol abuse Current Visit: Yes Status: Chronic (3) Hypokalemia Current Visit: Yes Status: Acute (4) Type 1 diabetes mellitus with hyperglycemia Current Visit: Yes Status: Acute (5) Hypothyroidism Current Visit: Yes Status: Chronic Qualifiers: Hypothyroidism type: unspecified Qualified Code(s): E03.9 - Hypothyroidism, unspecified - Plan Patient is admitted for observation. Monitor mental status and vital signs. Fall precautions. Patient has history of alcohol abuse. Continue IV hydration. Received supplemental potassium and mag in ED. Recheck BMP in morning. [facility] accu checks with moderate SSI and diabetic diet. Reconcile and continue home medications. Lovenox for VTE prophylaxis. Full code. Discharge Plan: Home Plan to discharge in: 24 Hours - Advance Directives Does patient have a Living Will: No Does patient have a Durable POA for Healthcare: No - Code Status/Comfort Care Code Status Assessed: Yes (Full) Critical Care: No Time Spent Managing Pts Care (In Minutes): 50
[2022-03-23] MEDS ORDERED: ACETAMINOPHEN 325 MG TABLET PO PRN (03:36)
[2022-03-23] MEDS ORDERED: NA CHLORIDE 0.9% 1,000 ML IV SCH (03:36)
[2022-03-23] MEDS ORDERED: ONDANSETRON 4 MG/2 ML VIAL IV PRN (03:36)
[2022-03-23 04:03] VITALS: BMI 26.6
[2022-03-23 04:03] LABS: SARS-CoV-2 Antigen Rapid Res Negative (Negative)
[2022-03-23] MEDS ORDERED: NA CHLORIDE 0.9% 1,000 ML ONE (04:14)
[2022-03-23 05:14] LABS: Potassium 3.2 mmol/L (3.5-5.1)
[2022-03-23 08:41] VITALS: TEMP 99.7
[2022-03-23] MEDS ORDERED: ENOXAPARIN 40 MG/0.4 ML SQ ONE (08:53)
[2022-03-23] MEDS ORDERED: INSULIN -REGULAR HUMAN 50 UNIT/0.5 ML ML ONE ×2 (08:53→16:41)
[2022-03-23] MEDS: INSULIN -REGULAR HUMAN 50 UNIT/0.5 ML ML SQ SCH ×3 (08:55→16:30)
[2022-03-23] MEDS ORDERED: ENOXAPARIN 40 MG/0.4 ML SQ SCH (09:00)
[2022-03-23 10:54] VITALS: O2SAT 98
[2022-03-23 16:10] VITALS: BP 136/84
--- NOTE | 2022-03-23 19:01 | EKG ---
Test Date: 2022-03-22 Test Time: 23:19:23 8Th Grade Teacher: IAIN MEASUREMENT RESULTS: Intervals: Rate: 89 NC: 158 QRSD: 72 QT: 424 QTc: 515 [place]: P: 67 NC: 158 QRS: 73 T: 83 INTERPRETIVE STATEMENTS: Normal sinus rhythm Prolonged QT Abnormal ECG Compared to ECG 12/01/2020 08:40:53 Prolonged QT interval now present Sinus tachycardia no longer present Myocardial infarct finding no longer present Electronically Signed On 03-23-22 19:00:29 HAND CANDY MOLDER by Familia Pickett
== END 2022-03-23 17:35 | disposition left against medical advice (07) ==
LOC: ER 21:28 → ERHOLD 03-23 02:34
PROVIDERS: ADMIT Hospitalist; ATTEND Hospitalist
DX: R41.82 Altered mental status, unspecified (principal); F10.20 Alcohol dependence, uncomplicated; E87.6 Hypokalemia; Z88.6 Allergy status to analgesic agent; E03.9 Hypothyroidism, unspecified; E78.5 Hyperlipidemia, unspecified; E10.65 Type 1 diabetes mellitus with hyperglycemia; Z20.822 Contact with and (suspected) exposure to COVID-19; Z79.4 Long term (current) use of insulin
CPT/HCPCS: 36415; 70450; 80048; 80053; 80307; 80320; 80329; 81003; 82805; 82947; 83735; 84439; 84443; 85025; 87811; 93005; 94760; 96365; 96366; 96367; 99285; G0378; J1650; J1815; J3411; J3475; J3480; J7030; J7040

== ENCOUNTER 2022-03-28 12:16 | Emergency (ER) | payer SELFPAY ==
--- OUTSIDE RECORDS SUMMARY | 2022-03-28 12:23 | XMS REPORT | Continuity of Care Document ---
:1975 Author Organization [facility] t Address [address] [place] [address] Care Team Providers Name Role Phone Vernon Dale Pierce Primary Care Physician BELINDA CONTRERAS Attending Clinician Unavailable Belinda Mitchell Attending Clinician Patricia Rodriguez LVN Attending Clinician JORGE WHITE Attending Clinician Unavailable Lorraine Trevizo MD Attending Clinician Jorge White MD Attending Clinician Velasquez Alexander MD Attending Clinician [phone] Tor Montano MD Attending Clinician ANDREI MALHOTRA [...] Number Effective Date Expiration Date Aminata patrick [facility] [id number] 2020 GROUP HOME 00:00:00 MEDICAID SSI PENDING 2020 PENDING 00:00:00 [...] due 0-26 ity of to to 00:00: [place] Salma' Salma' 00 Me dical s s Branch thyroiditi thyroiditi s s Hypoglycem Hypoglycem Disease Active 2020-05 U nivers ia ia 0-25 ity of 00:00: [place] 00 Medical Branch Diabetic Diabetic Disease Active Unive rs ketoacidos ketoacidos 6-20 it y of is with is with 00:00: [place] coma coma 00 Medical associated associated Br [...] s Type 1 Type 1 Disease Active [facility] diabetes diabetes ity of mellitus mellitus [place] with with Medical hypoglycem hypoglycem Br anch ia ia Allergies, Adverse Reactions, Alerts Allergy Allergy Status Severity Reaction(s) Onset Inactive Treating Comm ents Source Name Type Date Date Clinician TRAMADOL DRUG Active N/V Univers INGREDI 11-03 ity of 00:00: [address] Tramadol Propensi Active Nausea Univer s ty to and/or 11-03 ity of adverse Vomiting 00:00: [place] reaction [address] [place] [address] s Branch Social History Social Habit Start Date Stop Date Quantity Comments Source History of Cigarette Smoker Universi ty of tobacco use [facility] Exposure to 2022-03-08 2022-03-18 Not sure University of SARS-CoV-2 00:00:00 10:46:00 [facility] (event) [place] Alcohol intake 2022-03-18 2022-03-18 Current drinker Unive rsity of 00:00:00 00:00:00 of alcohol [facility] (finding) [place] Alcohol Comment 2022-03-07 2022-03-07 socially Universit y of 00:00:00 00:00:00 [facility] Tobacco use and 2018-02-13 2018-02-[address] [facility] exposure 00:00:00 00:00:00 [facility] Sex Assigned At [address] [facility] Smoking Status Start Date Stop Date Source Smokes tobacco daily 2022-03-06 00:00:00 Univers ity of [facility] Medications Ordered Filled Start Stop Current [...] by ity of tablet 15:53: mouth at [place] [address] bedtime. Medical Branch insulin 2021-05 Yes 30U [...] by ity of capsule 15:53: mouth in [place] 23 the Medical morning. Branch Thyroid, 2021-05 Yes 120mg Take 120 Univ ers Pork, 1-02 mg by ity of (ARMOUR 15:53: mouth [place] THYROID) 23 daily. Medical 120 mg Branch tablet lisinopriL 2021-05- No 20mg Take 20 mg Univers 20 mg 05-09 by mouth ity of tablet 12:42: 00:00 in the [place] 38 :00 morning. Medical Branch Sliding 2021-05 Yes Subcutaneo Univ ers Scale 02 us, TID ity of Insulin - 03:15: MEALS+HS, [place] Lispro 00 First dose Medical (HumaLOG) + (after Branch Fsbg last Testing modificati on) on Mon03/08/22 at 2215, Until Discontinu ed, Routine insulin 2021-05 Yes 20U 20 Units, Unive rs glargine 05-09 Subcutaneo ity o f (LANTUS 02:00: us, [facility], [place] U-100) 00 First dose Medical injection on [facility] 20 Units 03/08/22 at 2100, Until Discontinu ed, Routine insulin 2021-05 Yes 20U 20 Units, Unive rs glargine 05-09 Subcutaneo ity o f (LANTUS 02:00: us, [facility], [place] U-100) 00 First dose Medical injection on [facility] 20 Units 03/08/22 at 2100, Until Discontinu ed, Routine aspirin 2021-05- Yes [id number] 325mg Take 1 U nivers E.C. 325 mg 05-09 tablet by it y of EC tablet 00:00: 05:59 mouth in [place] 00 :00 the Medical morning Branch and 1 tablet in the evening. Take with meals. Do all this for 26 days. aspirin 2021-05- Yes [id number] 325mg Take 1 U nivers E.C. 325 mg 05-09 tablet by it y of EC tablet 00:00: 05:59 mouth in [place] 00 :00 the Medical morning Branch and 1 tablet in the evening. Take with meals. Do all this for 26 days. aspirin 2021-05- Yes [id number] 325mg Take 1 U nivers E.C. 325 mg 05-09 tablet by it y of EC tablet 00:00: 05:59 mouth in [place] 00 :00 the Medical morning Branch and 1 tablet in the evening. Take with meals. Do all this for 26 days. aspirin 2021-05- Yes [id number] 325mg Take 1 U nivers E.C. 325 [...] 1 dose, On Medic al U-100) [facility] Branch injection 03/08/22 at 10 Units 1315, Routine thyroid 2021-05 Yes 120mg 120 mg, Univer s (ARMOUR 05-08 Oral, ity of THYROID) 11:00: QAM-0600, [place] tablet 120 00 First dose Med ical mg on [facility] Branch 03/08/22 at 0600, Until Discontinu ed thyroid 2021-05 Yes 120mg 120 mg, Univer s (ARMOUR 05-08 Oral, ity of THYROID) 11:00: QAM-0600, [place] tablet 120 00 First dose Med ical mg on [facility] Branch 03/08/22 at 0600, Until Discontinu ed ketorolac 2021-05- No 15mg 15 mg, Unive rs (TORADOL) 05-08 Slow IV ity of injection 02:30: 02:19 Push, [place] 15 mg 00 :00 ONCE, 1 Medical dose, On Branch [facility] 03/07/22 at 2130, Routine gemfibroziL 2021-05 Yes 600mg 600 mg, Un lucila (LOPID) 05-08 Oral, QHS, ity of tablet 600 02:00: First dose [place] mg 00 on [facility] 03/07/22 Branch at 2100, Until Discontinu ed, Routine gemfibroziL 2021-05 Yes 600mg 600 mg, Un lucila (LOPID) 05-08 Oral, QHS, ity of tablet 600 02:00: First dose [place] mg 00 on [facility] 03/07/22 Branch at 2100, Until Discontinu ed, Routine ceFAZolin 2021-05- No 1g 1 g, IV Univ ers (ANCEF) 1 g 03-07 Piggyback, i ty of in NaCl 23:00: 23:34 ONCE, 1 [place] 0.9% (NS) 00 :00 dose, On Medica l 50 mL [facility] MINI-BAG 03/07/22 at 1800, Administer over 30 [...] 0-31 Oral, ity of ) 17:11: Q8HPRN, [place] disintegrat 32 Starting Medi rogers ing tablet on Mon Branch 4 mg 03/07/22 at 1211, Until Discontinu ed, Routine, Nausea and Vomiting (N/V) ondansetron 2021-05 Yes 4mg 4 mg, Unive rs (ZOFRAN-ODT 0-31 Oral, ity of ) 17:11: Q8HPRN, [place] disintegrat 32 Starting Medi rogers ing tablet [...] mouth ity of tablet 15:01: in the [place] [address] morning. Medical Branch gabapentin 2021-05 Yes 100mg Take 100 Un lucila 100 mg 0-31 mg by ity of capsule 15:01: mouth in [place] 50 the Medical morning. Branch Thyroid, 2021-05 Yes 120mg Take 120 Univ ers Pork, 0-31 mg by ity of (ARMOUR 15:01: mouth [place] THYROID) 50 daily. Medical 120 mg Branch tablet insulin 2021-05 Yes 30U inject 30 Unive rs detemir 0-31 Units ity of U-100 100 15:01: under the [place] unit/mL 50 skin at Medical injection bedtime. Branch lisinopriL 2021-05 Yes 20mg Take 20 mg U nivers 20 mg 0-31 by mouth ity of tablet 15:01: in the [place] [address] morning. Medical Branch gabapentin 2021-05 Yes 100mg Take 100 Un lucila 100 mg 0-31 mg by ity of capsule 15:01: mouth in [place] 50 the Medical morning. Branch Thyroid, 2021-05 Yes 120mg Take 120 Univ ers Pork, 0-31 mg by ity of (ARMOUR 15:01: mouth [place] THYROID) 50 daily. Medical 120 mg Branch [...] 00 :24 Starting Medical on [facility] Branch 03/07/22 at 0949, Until Mon03/07/22 at [...] injection 00 :24 Starting Medica l on [facility] 03/07/22 at 0947, Until Mon03/07/22 at 1255, [...] [place] 00 :24 Starting Medical on [facility] 03/07/22 at 0941, Until Mon03/07/22 at 1255, [...] Branch CONTINUOUS , Starting on [facility] 03/07/22 at 0900, Until Discontinu ed, Routine NaCl 0.45% 2021-05 Yes 1000mL at 100 Uni vers (1/2NS) IV 0-31 mL/hr, ity of infusion 14:00: 1,000 mL, [place] 1,000 mL 00 IV Medical Infusion, Branch CONTINUOUS , Starting on [facility] 03/07/22 at 0900, Until Discontinu ed, Routine lisinopriL 2021-05- No 5mg 5 mg, Unive rs (PRINIVIL,Z 0-31 11- Oral, ity of ESTRIL) 14:00: 13:39 DAILY, [place] tablet 5 mg 00 :00 First dose Me dical on [facility] 03/07/22 at 0900, Until Discontinu ed, Routine KCL 2021-05- No 20meq 20 mEq, Univers (KLOR-CON 0-03-07 Oral, ity of M20) tablet 13:45: 13:06 ONCE, 1 [place] 20 mEq 00 :00 dose, On Medical [facility] 03/07/22 at 0845, Routine magnesium 2021-05 Yes 400mg 400 mg, Univ ers oxide 0-31 Oral, BID, ity of (MAG-OX 13:00: First dose [place] 400) tablet 00 on [facility] Medica l 400 mg 03/07/22 Branch at 0800, Until Discontinu ed, Routine docusate 2021-05 Yes 100mg 100 mg, Unive rs (COLACE) 0-31 Oral, BID, ity o f capsule 100 13:00: First dose [place] mg 00 on [facility] 03/07/22 Branch at 0800, Until Discontinu ed, Routine Sliding 2021-05 Yes Subcutaneo Univ ers Scale 0-31 us, TID ity of Insulin - 13:00: MEALS, [place] Lispro 00 First dose Medical (HumaLOG) + on [facility] Fsbg 03/07/22 Testing at 0800, Until Discontinu ed, Routine magnesium 2021-05 Yes 400mg 400 mg, Univ ers oxide 0-31 Oral, BID, ity of (MAG-OX 13:00: First dose [place] 400) tablet 00 on [facility] Medica l 400 mg 03/07/22 Branch at 0800, Until Discontinu ed, Routine docusate 2021-05 Yes 100mg 100 mg, Unive rs (COLACE) 0-31 Oral, BID, ity o f capsule 100 13:00: First dose [place] mg 00 on [facility] Medical 03/07/22 Branch at 0800, Until Discontinu ed, Routine Sliding 2021-05- Subcutaneo Uni vers Scale 0-31 11-02 us, TID ity of Insulin - 13:00: 03:13 MEALS, [place] Lispro 00 :07 First dose Medical (HumaLOG) + on [facility] Branch Fsbg 03/07/22 Testing at 0800, Until Discontinu ed, Routine insulin 2021-05 Yes 10U inject 10 Unive rs aspart 0-31 Units ity of RAPID 100 12:15: under the [place] unit/mL 20 skin 3 Medical injection (three) Branch times daily with meals. gemfibroziL 2021-05 Yes 600mg Take 600 U nivers 600 mg 0-31 mg by ity of tablet 12:15: mouth at [place] 20 bedtime. Medical Branch insulin 2021-05 Yes 10U inject 10 Unive rs aspart 0-31 Units ity of RAPID 100 12:15: under the [place] unit/mL 20 skin 3 Medical injection (three) Branch times daily with meals. gemfibroziL 2021-05 Yes 600mg Take 600 U nivers 600 mg 0-31 mg by ity of tablet 12:15: mouth at [place] 20 bedtime. Medical Branch levothyroxi 2021-05- No 50ug 50 mcg, Un lucila ne 0-31 - Oral, ity of (SYNTHROID) 11:00: 23:00 QAM-0600, [place] tablet 50 00 :42 First dose Medi rogers mcg on [facility] Branch 03/07/22 at 0600, Until Discontinu ed, Routine morpHINE (2021-05 Yes 4mg 4 mg, Slow Univers mg/mL) 0-31 IV Push, ity of injection 4 07:23: Q4HPRN, [place] mg 08 Starting Medical on [facility] Branch 03/07/22 at 0223, Until Discontinu ed, Routine, Pain (scale 7-10) morpHINE (2021-05 Yes 4mg 4 mg, Slow Univers mg/mL) 0-31 IV Push, ity of injection 4 07:23: Q4HPRN, [place] mg 08 Starting Medical on [facility] Branch 03/07/22 at 0223, Until Discontinu ed, [...] 06:15: First dose [place] mg 00 on [facility] 03/07/22 Branch at 0115, Until Discontinu ed, Routine gabapentin 2021-05 Yes 100mg 100 mg, Uni vers (NEURONTIN) 0-31 Oral, TID, it y of capsule 100 06:15: First dose [place] mg 00 on [facility] 03/07/22 Branch at 0115, Until Discontinu ed, Routine ondansetron 2021-05 Yes 4mg 4 mg, Slow Univers (ZOFRAN 0-31 IV Push, ity of (PF)) 06:10: Q6HPRN, [place] injection 4 22 Starting Medi rogers mg on [facility] 03/07/22 at 0110, Until Discontinu ed, Routine, Nausea and Vomiting (N/V) ondansetron 2021-05 Yes 4mg 4 mg, Slow Univers (ZOFRAN 0-31 IV Push, ity of (PF)) 06:10: Q6HPRN, [place] injection 4 22 Starting Medi rogers mg on [facility] 03/07/22 at 0110, Until Discontinu ed, Routine, [...] Medica l 25 mL on [facility] Branch 03/07/22 at 0108, Until Discontinu ed, MARCOS, Blood Glucose < or = 70 mg/dL and patient is unable to swallow or has mental status changes. glucagon 2021-05 Yes 1mg 1 mg, Univers (GLUCAGEN 0-31 Intramuscu ity of DIAGNOSTIC 06:08: [place], PRN, [place] KIT) 55 Starting Medical injection 1 on [facility] Branch mg 03/07/22 at 0108, Until Discontinu ed, MARCOS, Blood Glucose < or = 70 mg/dL and patient is unable to swallow or has mental changes. dextrose 50 2021-05 Yes 25mL 25 mL, Univ ers % in water 0-31 Slow IV ity of (D50W) 06:08: Push, PRN, [place] injection 55 Starting Medica l 25 mL on [facility] Branch 03/07/22 at 0108, Until Discontinu ed, [...] mL Infusion, Branch CONTINUOUS , Starting on [place] 03/06/22 at 2200, Until [facility] 03/07/22 at 0746, MARCOS ondansetron 2021-05 No [...] 03/06/22 at 2100, STAT levothyroxi 2020-05- No [id number] 75ug Take 1 Univers ne 75 mcg [...] Units ity of RAPID 12:55: under the [place] (NOVOLOG 59 skin 3 Medical U-100 (three) Branch INSULIN times ASPART) 100 daily with unit/mL meals. injection gemfibroziL 2020-05 Yes 600mg Take 600 U nivers 600 mg 0-27 mg by ity of tablet 12:55: mouth at [place] 59 bedtime. Medical Branch insulin 2020-05- No [...] First dose [place] mg 00 on [facility] 03/02/21 Branch at 2100, Until Discontinu ed, Routine gabapentin 2020-05 Yes 300mg 300 mg, Uni vers (NEURONTIN) 0-27 Oral, QHS, it y of capsule 300 02:00: First dose [place] mg 00 on [facility] 03/02/21 Branch at 2100, Until Discontinu ed, Routine insulin 2020-05- No [id number] 20U inject 20 Univers detemir 0-03 04-27 Units ity of U-100 00:00: 05:59 under the [place] (LEVEMIR 00 :00 skin daily Medic al U-100 for 30 Branch INSULIN) days. 100 unit/mL injection gabapentin 2020-05- No [id number] 300mg Take 1 Univers 300 mg 0-03 [...] Mon03/01/21 at 1629, MARCOS ondansetron 2019-0 Yes [id number] 4mg Take 1 Univers (ZOFRAN 1-28 tablet by ity of ODT) 4 mg 00:00: mouth [place] disintegrat 00 every 8 Medic al ing tablet (eight) Branch hours as needed for Nausea and Vomiting (N/V). ondansetron 2019-0 Yes [id number] 4mg Take 1 Univers (ZOFRAN 1-28 tablet by ity of ODT) 4 mg 00:00: mouth [place] disintegrat 00 every 8 Medic al ing tablet (eight) Branch hours as needed for Nausea and Vomiting (N/V). ondansetron 2018-0 Yes [id number] 4mg Take 1 Univers (ZOFRAN 1-28 tablet by ity of ODT) 4 mg 00:00: mouth [place] disintegrat 00 every 8 Medic al ing tablet (eight) Branch hours as needed for Nausea and Vomiting (N/V). ondansetron 2018-0 Yes [id number] 4mg Take 1 Univers (ZOFRAN 1-28 tablet by ity of ODT) 4 mg 00:00: mouth [place] disintegrat 00 every 8 Medic al ing tablet (eight) Branch hours as needed for Nausea and Vomiting (N/V). ondansetron 2018-0 Yes [id number] 4mg Take 1 Univers (ZOFRAN 1-28 tablet by ity of ODT) 4 mg 00:00: mouth [place] disintegrat 00 every 8 Medic al ing tablet (eight) Branch hours as needed for Nausea and Vomiting (N/V). ondansetron 2018-0 Yes [id number] 4mg Take 1 Univers (ZOFRAN 1-28 tablet by ity of ODT) 4 mg 00:00: mouth [place] disintegrat 00 every 8 Medic al ing tablet (eight) Branch hours as needed for Nausea and Vomiting (N/V). ondansetron 0 Yes [id number] 4mg Take 1 Univers (ZOFRAN 1-28 tablet [...] Immunizations Ordered Filled Immunization Date Status Comments [facility] e Immunization Name Name SARS-COV-2 COVID-19 2021-03-03 Completed Unive rsity of PFIZER VACCINE 00:00:00 [facility] SARS-COV-2 COVID-19 2021-03-03 Completed Unive rsity of IPTEGO VACCINE 00:00:00 [facility] SARS-COV-2 COVID-19 2021-03-03 Completed Unive rsity of PFIZER VACCINE 00:00:00 [facility] SARS-COV-2 COVID-19 2021-03-03 Completed Unive rsity of PFIZER VACCINE 00:00:00 [facility] SARS-COV-2 COVID-19 2021-03-03 Completed Unive rsity of PFIZER VACCINE 00:00:00 [facility] SARS-COV-2 COVID-19 2021-03-03 Completed Unive rsity of PFIZER VACCINE 00:00:00 [facility] SARS-COV-2 COVID-19 2021-03-03 Completed Unive rsity of PFIZER VACCINE 00:00:00 [facility] Influenza Four-QIV 2018-02-[address] [facility] Non-PF 5+ YR 00:00:00 Medical Cent er Influenza Four-QIV 2018-02-[address] [facility] Non-PF 5+ YR 00:00:00 Medical Cent er Influenza Four-QIV 2018-02-[address] [facility] Non-PF 5+ YR 00:00:00 Medical Cent er Influenza Virus 2018-02-13 Completed Universit y of Vaccine Quad IM 3+ 00:00:00 [facility] Influenza Virus 2018-02-13 Completed Universit y of Vaccine Quad IM 3+ 00:00:00 [facility] Influenza Virus 2018-02-13 Completed Universit y of Vaccine Quad IM 3+ 00:00:00 [facility] Influenza Virus 2018-02-13 Completed Universit y of Vaccine [place] IM 3+ 00:00:00 [facility] Influenza Virus 2018-02-13 Completed Universit y of Vaccine [place] IM 3+ 00:00:00 [facility] Influenza Virus 2018-02-13 Completed Universit y of Vaccine Quad IM 3+ 00:00:00 [facility] Influenza Virus 2018-02-13 Completed Universit y of Vaccine Quad IM 3+ 00:00:00 [facility] Influenza Four-QIV 2018-02-[address] [facility] Non-PF 5+ YR 00:00:00 Medical Cent er Vital Signs Vital Name Observation Time Observation Value Comments Source Systolic blood 2022-03-18 164 mm[Hg] University of pressure 17:00:00 [facility] Diastolic blood 2022-03-18 99 mm[Hg] University o f pressure 17:00:00 [facility] Heart rate 2022-03-18 113 /min University of 17:00:00 [facility] Oxygen saturation 2022-03-18 99 /min University of in Arterial blood 17:00:00 [facility] by Pulse oximetry Branch Body height 2022-03-18 170.2 cm University of 16:57:00 [facility] Body weight 2022-03-18 62.687 kg University of 16:57:00 [facility] BMI 2022-03-18 21.65 kg/m2 University of 16:57:00 [facility] Systolic blood 2022-03-09 115 mm[Hg] University of pressure 16:33:00 [facility] Diastolic blood 2022-03-09 74 mm[Hg] University o f pressure 16:33:00 [facility] Heart rate 2022-03-09 91 /min University of 16:33:00 [facility] Body temperature 2022-03-09 36.5 Elisha University of 16:33:00 [facility] Respiratory rate 2022-03-09 18 /min University of 16:33:00 [facility] Oxygen saturation 2022-03-09 95 /min University of in Arterial blood 16:33:00 [facility] by Pulse oximetry Branch Body height 2022-03-07 175.3 cm University of 03:34:00 [facility] Body weight 2022-03-07 68.04 kg University of 03:34:00 [facility] BMI 2022-03-07 22.15 kg/m2 University of 03:34:00 [facility] Respiratory rate 2022-03-07 15 /min University of 17:37:00 [facility] Systolic blood 2022-03-07 150 mm[Hg] University of pressure 12:39:00 [facility] Diastolic blood 2022-03-07 92 mm[Hg] University o f pressure 12:39:00 [facility] Heart rate 2022-03-07 113 /min University of 12:39:00 [facility] Body temperature 2022-03-07 36.67 Elisha University of 12:39:00 [facility] Respiratory rate 2022-03-07 18 /min University of 12:39:00 [facility] Oxygen saturation 2022-03-07 98 /min University of in Arterial blood 12:39:00 [facility] by Pulse oximetry [place] Body height 2022-03-07 175.3 cm University 03:34:00 [facility] Body weight 2022-03-07 68.04 kg University 03:34:00 [facility] BMI 2022-03-07 22.15 kg/m2 University 03:34:00 [facility] Systolic blood 2021-03-03 109 mm[Hg] University of pressure 16:44:00 [facility] Diastolic blood 2021-03-03 81 mm[Hg] [place] o f pressure 16:44:00 [facility] Heart rate 2021-03-03 85 /min University 16:44:00 [facility] Body temperature 2021-03-03 36.33 Elisha University 16:44:00 [facility] Respiratory rate 2021-03-03 16 /min University 16:44:00 [facility] Oxygen saturation 2021-03-03 93 /min [facility] Arterial blood 16:44:00 [facility] by Pulse oximetry [place] Body weight 2021-03-03 77.384 kg University 09:09:00 [facility] BMI 2021-03-03 25.19 kg/m2 University 09:09:00 [facility] Body height 2021-03-01 175.3 cm Simultaneous [facility] 18:25:00 filing. User may [place] [employer] not have seen Branch previous data. Procedures Procedure Date / Time Performing Clinician Source Performed POCT GLUCOSE (AUTOMATED) 2022-03-09 19:52:00 Lorraine Trevizo Un [facility] POCT GLUCOSE (AUTOMATED) 2022-03-09 13:21:00 Lorraine Trevizo Un iversity of [facility] POCT GLUCOSE (AUTOMATED) 2022-03-09 07:05:00 Lorraine Trevizo Un iversity of [facility] POCT GLUCOSE (AUTOMATED) 2022-03-09 04:04:00 Lorraine Trevizo Un iversity of [facility] POCT GLUCOSE (AUTOMATED) 2022-03-09 02:25:00 Lorraine Trevizo Un iversity of [facility] POCT GLUCOSE (AUTOMATED) 2022-03-08 21:55:00 Lorraine Trevizo Un iversity of [place] [facility] POCT GLUCOSE (AUTOMATED) 2022-03-08 21:55:00 Lorraine Trevizo Un iversity of [place] [facility] POCT GLUCOSE (AUTOMATED) 2022-03-08 17:18:00 Lorraine Trevizo Un iversity of [place] [facility] POCT GLUCOSE (AUTOMATED) 2022-03-08 17:18:00 Lorraine Trevizo Un iversity of [place] [facility] POCT GLUCOSE (AUTOMATED) 2022-03-08 12:55:00 Lorraine Trevizo Un iversity of [facility] Branch POCT GLUCOSE (AUTOMATED) 2022-03-08 12:55:00 Lorraine Trevizo Un iversity of [facility] Branch COMP. METABOLIC PANEL 2022-03-08 08:44:00 Jorge White [facility] ([id number]) [facility] Branch CBC WITH DIFF 2022-03-08 08:44:00 Jorge White [facility] COMP. METABOLIC PANEL 2022-03-08 08:44:00 Jorge White [facility] ([id number]) [facility] Branch CBC WITH DIFF 2022-03-08 08:44:00 Jorge White [facility] POCT GLUCOSE (AUTOMATED) 2022-03-08 05:40:00 Lorraine Trevizo Un iversity of [facility] POCT GLUCOSE (AUTOMATED) 2022-03-08 05:40:00 Lorraine Trevizo Un iversity of [place] [facility] POCT GLUCOSE (AUTOMATED) 2022-03-08 02:17:00 Lorraine Trevizo Un iversity of [facility] Branch POCT GLUCOSE (AUTOMATED) 2022-03-08 02:17:00 Lorraine Trevizo Un [facility] POCT GLUCOSE (AUTOMATED) 2022-03-07 23:06:00 Lorraine Trevizo Un [facility] POCT GLUCOSE (AUTOMATED) 2022-03-07 23:06:00 Lorraine Trevizo [facility] POCT GLUCOSE (AUTOMATED) 2022-03-07 22:13:00 Lorraine Trevizo Un [facility] POCT GLUCOSE (AUTOMATED) 2022-03-07 22:13:00 Lorraine Trevizo Un [facility] XR PELVIS <3 VW 2022-03-07 19:15:15 [facility]W 2022-03-07 19:15:15 Leonor Velasquez [facility] INTUBATION 2022-03-07 14:50:00 Gareth Galeana o [facility] HIP HEMIARTHROPLASTY 2022-03-07 14:26:00 [facility] 2022-03-07 14:26:00 Tor [facility]UCOSE (AUTOMATED) 2022-03-07 12:41:00 Lorraine Trevizo Un [facility] POCT GLUCOSE (AUTOMATED) 2022-03-07 12:41:00 Lorraine Trevizo Un [facility] URINE DRUG (IMMUNOASSAY) - 2022-03-07 10:21:00 Jorge White niverssabrina [facility] COMPREHENSIVE DRUG SCREEN Medica l Branch URINALYSIS 2022-03-07 10:21:00 Jorge White [facility] SODIUM, URINE RANDOM 2022-03-07 10:21:00 Jorge White [facility] PROTEIN CREAT RATIO URINE 2022-03-07 10:21:00 Jorge White [facility] URINE DRUG (IMMUNOASSAY) - 2022-03-07 10:21:00 Jorge White [facility] [place] COMPREHENSIVE DRUG SCREEN Medica l Branch URINALYSIS 2022-03-07 10:21:00 Jorge White [facility] SODIUM, URINE RANDOM 2022-03-07 10:21:00 Jorge White [facility] PROTEIN CREAT RATIO URINE 2022-03-07 10:21:00 Jorge White [facility] URINE CULTURE 2022-03-07 10:20:00 [facility] URINE CULTURE 2022-03-07 10:20:00 [facility] POCT GLUCOSE (AUTOMATED) 2022-03-07 08:43:00 Lorraine Trevizo Un i[facility] POCT GLUCOSE (AUTOMATED) 2022-03-07 08:43:00 Lorraine Trevizo Un [facility] PHOSPHORUS 2022-03-07 08:26:00 Cindy martin [facility] MAGNESIUM 2022-03-07 08:26:00 [facility] COMP. METABOLIC PANEL 2022-03-07 08:26:00 Jorge White [facility] ([id number]) [facility] CBC WITH DIFF 2022-03-07 08:26:00 [facility] PROTHROMBIN TIME / INR 2022-03-07 08:26:00 [facility] N-TERMINAL PRO-BNP 2022-03-07 08:26:00 Jorge White [facility] PHOSPHORUS 2022-03-07 08:26:00 Cindy martin [facility] MAGNESIUM 2022-03-07 08:26:00 Cindy martin [facility] COMP. METABOLIC PANEL 2022-03-07 08:26:00 Jorge White [facility] ([id number]) [facility] CBC WITH DIFF 2022-03-07 08:26:00 Cindy martin [facility] PROTHROMBIN TIME / INR 2022-03-07 08:26:00 Jorge White [facility] N-TERMINAL PRO-BNP 2022-03-07 08:26:00 Cindy martin [facility] POCT GLUCOSE (AUTOMATED) 2022-03-07 04:13:00 Lorraine Trevizo Un [facility] POCT GLUCOSE (AUTOMATED) 2022-03-07 04:13:[address] [facility] XR PELVIS <3 VW 2022-03-07 02:04:37 Lorraine Trevizo [facility] XR PELVIS <3 VW 2022-03-07 02:04:37 Lorraine Trevizo [facility] XR CHEST 1 VW 2022-03-07 01:58:10 Lorraine Trevizo [facility] XR HIPS 2 VW RIGHT 2022-03-07 01:58:10 Lorraine Trevizo [facility] XR CHEST 1 VW 2022-03-07 01:58:10 Lorraine Trevizo [facility] XR HIPS 2 VW RIGHT 2022-03-07 01:58:10 Lorraine Trevizo [facility] HB ECG ROUTINE & RHYTHM 2022-03-07 01:56:[address] [facility] HB ECG ROUTINE & RHYTHM 2022-03-07 01:56:[address] [facility] URIC ACID 2022-03-07 01:46:00 Cindy martin [facility] MAGNESIUM 2022-03-07 01:46:00 Jorge White [facility] FREE T4 2022-03-07 01:46:00 Cindy [facility]in [facility] COMP. METABOLIC PANEL 2022-03-07 01:46:00 Lorraine Trevizo [facility] ([id number]) [facility] LIPID PANEL ([id number])(TOTAL 2022-03-07 01:46:00 [facility] TRIGLYCERID[facility], HDL) ETHANOL 2022-03-07 01:46:00 Jorge White [facility] SEDIMENTATION RATE 2022-03-07 01:46:00 Jorge White [facility] CBC WITH DIFF 2022-03-07 01:46:00 Lorraine Trevizo [facility] GLYCOSYLATED HEMOGLOBIN 2022-03-07 01:46:00 Jorge White [facility] (A1C) [facility] N-TERMINAL PRO-BNP 2022-03-07 01:46:00 Jorge White [facility] FREE T3 2022-03-07 01:46:00 Jorge White [facility] URIC ACID 2022-03-07 01:46:00 Cindy martin [facility] MAGNESIUM 2022-03-07 01:46:00 Cindy martin [facility] FREE T4 2022-03-07 01:46:00 [facility] COMP. METABOLIC PANEL 2022-03-07 01:46:00 Lorraine Trevizo [facility] ([id number]) [facility] LIPID PANEL ([id number])(TOTAL 2022-03-07 01:46:00 Jorge White [facility] CHOLESTEROL, [facility] TRIGLYCERIDES, HDL) ETHANOL 2022-03-07 01:46:00 Cindy martin [facility] SEDIMENTATION RATE 2022-03-07 01:46:00 Cindy martin [facility] CBC WITH DIFF 2022-03-07 01:46:00 Lorraine Trevizo [facility] GLYCOSYLATED HEMOGLOBIN 2022-03-07 01:46:00 Jorge White [facility] N-TERMINAL PRO-BNP 2022-03-07 01:46:00 Cindy martin [facility] FREE T3 2022-03-07 01:46:00 Cindy [facility]in [facility] POCT GLUCOSE (AUTOMATED) 2022-03-07 01:45:00 Lorraine Trevizo [facility] POCT GLUCOSE (AUTOMATED) 2022-03-07 01:45:00 Lorraine Trevizo [facility] NOTICE OF PRIVACY 2022-03-07 01:33:58 Doctor Unassigned, [facility] PRACTICES [place] [facility] NOTICE OF PRIVACY 2022-03-07 01:33:58 Doctor Unassigned, [facility] [place] [facility] CONSENT/REFUSAL FOR 2022-03-07 01:32:07 Doctor Unassigned, [facility] DIAGNOSIS AND TREATMENT [place] [facility] CONSENT/REFUSAL FOR 2022-03-07 01:32:07 Doctor Unassigned, [facility] DIAGNOSIS AND TREATMENT [place] [facility] POCT GLUCOSE (AUTOMATED) 2021-03-03 17:28:00 [facility] ([facility]OMATED) 2021-03-03 13:06:00 Matt Ford [facility] BASIC METABOLIC PANEL (NA, 2021-03-03 09:15:00 Matt Ford [facility] K, CL, CO2, GLUCOSE, BUN, Medica l Branch CREATININE, CA) CBC WITH DIFF 2021-03-03 09:15:00 Matt Ford [facility] POCT GLUCOSE (AUTOMATED) 2021-03-03 03:19:00 [facility]UCOSE (AUTOMATED) 2021-03-03 00:52:00 Matt Ford Uni [facility] POCT GLUCOSE (AUTOMATED) 2021-03-02 22:20:00 [facility] PO[facility]UCOSE (AUTOMATED) 2021-03-02 17:14:00 [facility] PO[facility]UCOSE (AUTOMATED) 2021-03-02 12:59:00 Matt Ford [facility] FREE T4 2021-03-02 09:44:00 Matt Ford [facility] BASIC METABOLIC PANEL (NA, 2021-03-02 09:44:00 Matt Ford [facility] K, CL, CO2, GLUCOSE, BUN, Medica l Branch CREATININE, CA) FREE T3 2021-03-02 09:44:00 Matt Ford [facility] POCT GLUCOSE (AUTOMATED) 2021-03-02 01:03:00 Matt Ford Uni [facility] POCT GLUCOSE (AUTOMATED) 2021-03-01 21:37:00 [facility] 2021-03-01 21:20:20 Akira Winter [facility] POCT GLUCOSE (AUTOMATED) 2021-03-01 20:55:00 Matt Ford [facility] POCT GLUCOSE (AUTOMATED) 2021-03-01 18:17:00 Matt Ford [facility] POCT GLUCOSE (AUTOMATED) 2021-03-01 16:49:00 Akira Winter [facility] CT HEAD WO CONTRAST 2021-03-01 16:00:12 Akira Winter [facility] MAGNESIUM 2021-03-01 15:51:00 Akira Winter [facility] THYROID STIMULATING 2021-03-01 15:51:00 [facility] COMP. METABOLIC PANEL 2021-03-01 15:51:00 Akira Winter [facility] ([id number]) [facility] CBC WITH DIFF 2021-03-01 15:51:00 Akira Winter [facility] GLYCOSYLATED HEMOGLOBIN 2021-03-01 15:51[facility] COVID-19 (ID NOW RAPID 2021-03-01 15:51:00 Akira Winter [facility] TESTING) [facility] LAB ONLY COVID 2021-03-01 15:51:00 Akira Winter [facility] INTERPRETATION [facility] HB ECG ROUTINE & RHYTHM 2021-03-01 15:45:31 Akira Winter [facility] STRIP [facility] POCT GLUCOSE (AUTOMATED) 2021-03-01 15:42:00 Akira Winter [facility] Plan of Care Planned Activity Planned Date Details Comments Source Future Scheduled 2021-02-[address] [facility] 00:00:00 (procedure) [code = [facility] 82900786] Future Scheduled 2021-01-[address] [facility] Test 00:00:00 (Season Ended) [code = [facility] INFLUENZA VACCINE (Season Ended)] Future Scheduled 2020-05-[address] [facility] Test 00:00:00 (12+) [code = Medical Center DEPRESSION SCREENING (12+)] Future Scheduled 2018-08-[address] [facility] 00:[facility]00 measurement [facility] Center (procedure) [code = 33998226] Future Scheduled 1993 DTAP/TDAP/TD VACCINES CH I [...] 00:00:00 examination Medical Center (regime/therapy) [code = 633661748] Future Scheduled 1984-01-26 Urine screening for [facility] Test 00:00:00 protein (procedure) Medical Center [code = 330826384] Future Scheduled 1980-01-[address] [facility] Test 00:00:00 0-64 YRS (1 of 1 - Medical C enter PPSV23) [code = PNEUMOCOCCAL VACCINE 0-64 YRS (1 of 1 - PPSV23)] Future Scheduled [address] [facility] Test 00:00:00 malignant neoplasm of Medica l Center colon (procedure) [code = 710497840] Encounters Start End Encounter Admission Attending Care Care Encounter Source Date/Time Date/Time Type Type Clinicians Facility Department ID 2021-03-09 Emergency [facility] [id number] Univers 09:22:47 [facility] 2021-03-08 Emergency [facility] [id number] Univers 02:24:31 [facility] 2022-03-18 2022-03-18 Outpatient R BEN [facility] [id number] Univers 11:15:00 12:11:35 BELINDA [facility] 2022-03-18 2022-03-18 Office Ben [facility] [id number] Univers 11:15:00 12:11:35 Visit [facility] [id number] it y of [place] 4.2.7.2.686 Jaun as DARRYL?BLEA [id number] [facility] [address] MEDICAL OFF[facility] BUILDING 2022-03-10 2022-03-10 Transition BRIDGER Rodriguez [id number] Univers 00:00:00 00:00:00 of Care Patricia TAYLOR [id number] ity [place] [id number] [facility] 403 Branch 2022-03-06 2022-03-09 Inpatient X CINDY [facility] [id number] Univers 20:34:00 15:50:00 ADNAN ity of [facility] 2022-03-06 2022-03-09 [facility] Santhosh Lorraine [facility] 1.2.840. 114 [id number] Univers 20:34:00 15:50:00 Encounter Jorge White [id number] [place] [id number] [facility] 081 Branch 2022-03-07 2022-03-07 Anesthesia Alquicira-M [facility] 1.2.840.114 [id number] Univers 09:41:00 12:53:00 Event [place] campos 350.1.13.10 i ty of Velas[place] 4.2.7.2.686 Jaun as SURGICAL [id number] [facility] 020 Branch 2022-03-07 2022-03-07 [facility] [id number] Univers 09:30:00 12:03:00 Tor JACKSON 350.1.13.10 i [place]ICAL [id number] [facility] 020 Branch 2021-03-12 2021-03-12 Outpatient Gareth MALHOTRA [facility] [id number] Univers 16:30:00 16:30:00 ANDREI ity [facility] 2021-03-01 2021-03-03 Emergency Akira Winter [facility] 1.2.840. 114 [id number] [facility] 10:40:00 12:50:00 Matt Ford [id number] [facility] 4.2.7.2.686 [facility] [id number] [address] 2020-10-27 2020-10-27 Transition RodriguezCricket raglandclara 1.2.840.114 [id number] 00:00:00 00:00:00 of Care Patricia Taylor [id number] [place] 4.2.7.2.686 [id number] 2020-10-25 2020-10-26 Hospital Akira Winter [facility] 1.2.840.1 [id number] 16:12:00 18:10:00 Encounter Ryan Cardozo [id number] Jorge [place] 4.2.7.2.686 [place] [id number] 2020-08-17 2020-08-17 [facility] [id number] [facility] 16:01:43 23:59:00 [facility] 2020-08-17 2020-08-17 Office [facility] [id number] 15:25:16 16:33:28 Visit [facility] [id number] Surgical 4.2.7.2.686 Special [id number] Manda Jackson Results Test Description Test Time Test Comments Results Result Comments Source POCT GLUCOSE (AUTOMATED) 2022-03-09 20:30:40 Test Item Value Reference Range Interpretation Comme nts POCT GLU (test code = 1456105810) 332 mg/dL 70-110 H Lab Interpretation (test code = 02994-6) Abnormal [facility] GLUCOSE (AUTOMATED)2022-03-09 13:23:52 Test Item Value Reference Range Interpretation Comments POCT GLU (test code = 4426488492) 373 mg/dL 70-110 H Lab Interpretation (test code = Abnormal 92323-7) [facility] GLUCOSE (AUTOMATED)2022-03-09 07:10:19 Test Item Value Reference Range Interpretation Comments POCT GLU (test code = 7405652273) 520 mg/dL 70-110 HH Lab Interpretation (test code = Abnormal 39417-6) [facility] GLUCOSE (AUTOMATED)2022-03-09 04:11:59 Test Item Value Reference Range Interpretation Comments POCT GLU (test code = 3877916369) 443 mg/dL 70-110 H Lab Interpretation (test code = Abnormal 59534-0) [facility] GLUCOSE (AUTOMATED)2022-03-09 02:28:25 Test Item Value Reference Range Interpretation Comments POCT GLU (test code = 6459705739) 438 mg/dL 70-110 H Lab Interpretation (test code = Abnormal 27479-4) [facility] GLUCOSE (AUTOMATED)2022-03-08 22:12:24 Test Item Value Reference Range Interpretation Comments POCT GLU (test code = 6767848866) 310 mg/dL 70-110 H Lab Interpretation (test code = Abnormal 84381-7) [facility] GLUCOSE (AUTOMATED)2022-03-08 22:12:24 Test Item Value Reference Range Interpretation Comments POCT GLU (test code = 0517468957) 310 mg/dL 70-110 H Lab Interpretation (test code = Abnormal 56251-6) [facility] GLUCOSE (AUTOMATED)2022-03-08 17:21:26 Test Item Value Reference Range Interpretation Comments POCT GLU (test code = 6580272508) 411 mg/dL 70-110 H Lab Interpretation (test code = Abnormal 05373-1) [facility] GLUCOSE (AUTOMATED)2022-03-08 17:21:26 Test Item Value Reference Range Interpretation Comments POCT GLU (test code = 1788087482) 411 mg/dL 70-110 H Lab Interpretation (test code = Abnormal 41305-2) [facility] GLUCOSE (AUTOMATED)2022-03-08 12:59:57 Test Item Value Reference Range Interpretation Comments POCT GLU (test code = 3902186493) 484 mg/dL 70-110 HH Lab Interpretation (test code = Abnormal 56575-1) [facility] GLUCOSE (AUTOMATED)2022-03-08 12:59:57 Test Item Value Reference Range Interpretation Comments POCT GLU (test code = 1549470080) 484 mg/dL 70-110 HH Lab Interpretation (test code = Abnormal 04973-6) [facility] GLUCOSE (AUTOMATED)2022-03-08 05:42:15 Test Item Value Reference Range Interpretation Comments POCT GLU (test code = 0129979512) 307 mg/dL 70-110 H Lab Interpretation (test code = Abnormal 21212-4) [facility] GLUCOSE (AUTOMATED)2022-03-08 05:42:15 Test Item Value Reference Range Interpretation Comments POCT GLU (test code = 8118938838) 307 mg/dL 70-110 H Lab Interpretation (test code = Abnormal 29588-7) [facility] GLUCOSE (AUTOMATED)2022-03-08 02:29:53 Test Item Value Reference Range Interpretation Comments POCT GLU (test code = 9074164070) 298 mg/dL 70-110 H Lab Interpretation (test code = Abnormal 49896-8) [facility] GLUCOSE (AUTOMATED)2022-03-08 02:29:53 Test Item Value Reference Range Interpretation Comments POCT GLU (test code = 4987119334) 298 mg/dL 70-110 H Lab Interpretation (test code = Abnormal 73457-1) [facility] GLUCOSE (AUTOMATED)2022-03-07 23:10:06 Test Item Value Reference Range Interpretation Comments POCT GLU (test code = 6932030585) 356 mg/dL 70-110 H Lab Interpretation (test code = Abnormal 69967-8) [facility] GLUCOSE (AUTOMATED)2022-03-07 23:10:06 Test Item Value Reference Range Interpretation Comments POCT GLU (test code = 7517201691) 356 mg/dL 70-110 H Lab Interpretation (test code = Abnormal 00899-1) [facility] GLUCOSE (AUTOMATED)2022-03-07 22:18:04 Test Item Value Reference Range Interpretation Comments POCT GLU (test code = 2534628592) 374 mg/dL 70-110 H Lab Interpretation (test code = Abnormal 06774-5) [facility] GLUCOSE (AUTOMATED)2022-03-07 22:18:04 Test Item Value Reference Range Interpretation Comments POCT GLU (test code = 0044277087) 374 mg/dL 70-110 H Lab Interpretation (test code = Abnormal 96706-9) [facility] GLUCOSE (AUTOMATED)2022-03-07 17:34:08 Test Item Value Reference Range Interpretation Comments POCT GLU (test code = 6141871973) 383 mg/dL 70-110 H Lab Interpretation (test code = Abnormal 00502-9) [facility] GLUCOSE (AUTOMATED)2022-03-07 17:34:08 Test Item Value Reference Range Interpretation Comments POCT GLU (test code = 4451138419) 383 mg/dL 70-110 H Lab Interpretation (test code = Abnormal 42795-6) [facility] GLUCOSE (AUTOMATED)2022-03-07 08:46:10 Test Item Value Reference Range Interpretation Comments POCT GLU (test code = 8501167695) 229 mg/dL 70-110 H Lab Interpretation (test code = Abnormal 93044-2) [facility] GLUCOSE (AUTOMATED)2022-03-07 08:46:10 Test Item Value Reference Range Interpretation Comments POCT GLU (test code = 7731048488) 229 mg/dL 70-110 H Lab Interpretation (test code = Abnormal 13750-4) [facility] [id number] 08:20:29 Test Item Value Reference Range Interpretation Comments ESR (test code = 13888-5) See_Comment [ Automated message] The system Amiigo generated this result transmitted ref erence range: 0 - 10 m m/HR. The reference r ambrosio was not used to interpret this result as normal/abnor mal. Lab Interpretation (test Normal code = 25207-8) [facility] [id number] 08:20:29 Test Item Value Reference Range Interpretation Comments ESR (test code = 09940-8) See_Comment [ Automated message] The system Ami[employer] generated this result transmitted ref erence range: 0 - 10 m m/HR. The reference r ambrosio was not used to interpret this result as normal/abnor mal. Lab Interpretation (test Normal code = 64496-5) [facility]-07 08:17:03 Test Item Value Reference Range Interpretation Comments HGB A1C (test code = 7.6 % 4.0-5.7 H 4548-4) CLIFF (test code = CLIFF) Reference RangesNormal: <5.7%Prediabetes: 5.7 - 6.4%Diabetes: > 6.5% Lab Interpretation (test Abnormal code = 92770-6) [facility]2022-03-07 08:17:03 Test Item Value Reference Range Interpretation Comments HGB A1C (test code = 7.6 % 4.0-5.7 H 4548-4) CLIFF (test code = CLIFF) Reference RangesNormal: <5.7%Prediabetes: 5.7 - 6.4%Diabetes: > 6.5% Lab Interpretation (test Abnormal code = 78869-3) [facility]30903)(TOTAL CHOLESTEROL, TRIGLYCERIDES, HDL)2022-03-07 07:33:05 Test Item Value Reference Range Interpretation Comments CHOL (test code = 250 mg/dL 120-200 H 9092432464) HDL (test code = 55 mg/dL See_Comment [Automated message] [id number]) The system [employer] generated this result transmit neo reference range : >=40. The refer ence range was not u sed to interpret th is result as normal/abnormal . HDLC RATIO (test code = See_Comment [Au tomated message] 6741433217) The system [employer] generated this result transmit neo reference range : <=5.0. The refe rence range was not u sed to interpret th is result as normal/abnormal . TRIG (test code = 171 mg/dL 30-170 H 3648683586) LDL CHOL (test code = 161 mg/dL See_Comment H [Auto mated message] 46984-1) The system [employer] generated this result transmit neo reference range : <=160. The refe rence range was not u sed to interpret th is result as normal/abnormal . VLDL (test code = 34 mg/dL 5-60 8924549823) Lab Interpretation (test Abnormal code = 13584-3) [facility] (78932)(TOTAL CHOLESTEROL, TRIGLYCERIDES, HDL)2022-03-07 07:33:05 Test Item Value Reference Range Interpretation Comments CHOL (test code = 250 mg/dL 120-200 H 6237168971) HDL (test code = 55 mg/dL See_Comment [Automated message] 8472529839) The system [employer] generated this result transmit neo reference range : >=40. The refer ence range was not u sed to interpret th is result as normal/abnormal . HDLC RATIO (test code = See_Comment [Au tomated message] 0296861085) The system [employer] generated this result transmit neo reference range : <=5.0. The refe rence range was not u sed to interpret th is result as normal/abnormal . TRIG (test code = 171 mg/dL 30-170 H 7407895938) LDL CHOL (test code = 161 mg/dL See_Comment H [Auto mated message] 96981-2) The system [employer] generated this result transmit neo reference range : <=160. The refe rence range was not u sed to interpret th is result as normal/abnormal . VLDL (test code = 34 mg/dL 5-60 6834693979) Lab Interpretation (test Abnormal code = 45508-1) [place] [id number] 07:31:45 Test Item Value Reference Range Interpretation Comments FREE T4 (test code = See_Comment [Autom ated message] 5152273620) The system [employer] generated this result transmitted ref erence range: 0.78 - 2 .20 ng/dL:. The ref erence range was not u sed to interpret this result as normal/abnor mal. Lab Interpretation (test Normal code = 10019-0) [place] [id number] 07:31:45 Test Item Value Reference Range Interpretation Comments FREE T4 (test code = See_Comment [Autom ated message] 4338190388) The system [employer] generated this result transmitted ref erence range: 0.78 - 2 .20 ng/dL:. The ref erence range was not u sed to interpret this result as normal/abnor mal. Lab Interpretation (test Normal code = 19339-7) [place] [id number] 07:31:25 Test Item Value Reference Range Interpretation Comments FREE T3 (test code = 1497461835) 3.54 pg/mL 2.77-5.27 Lab Interpretation (test code = Normal 67408-7) [place] [id number] 07:31:25 Test Item Value Reference Range Interpretation Comments FREE T3 (test code = 3957650495) 3.54 pg/mL 2.77-5.27 Lab Interpretation (test code = Normal 43567-0) [facility] [id number] 07:23:24 Test Item Value Reference Range Interpretation Comments NT-proBNP (test code 107 pg/mL See_Comment [Autom ated = 7084347845) message] The system which generated this result transmitted reference range : <=125. The reference range was not used to interpret this result as normal/abnormal . CLIFF (test code = CLIFF) Biotin has been reported to cause a negative bias, interpret results relative to patient's use of biotin. Lab Interpretation Normal (test code = 33938-0) [id number] 07:23:24 Test Item Value Reference Range Interpretation Comments NT-proBNP (test code 107 pg/mL See_Comment [Autom ated = 0660760184) message] The system which generated this result transmitted reference range : <=125. The reference range was not used to interpret this result as normal/abnormal . CLIFF (test code = CLIFF) Biotin has been reported to cause a negative bias, interpret results relative to patient's use of biotin. Lab Interpretation Normal (test code = 55878-2) [facility]2022-10-31 07:14:08 Test Item Value Reference Range Interpretation Comments MAGNESIUM (test code = 8650292205) 2.0 mg/dL 1.7-2.4 Lab Interpretation (test code = Normal 04392-2) [facility]2022-10-31 07:14:08 Test Item Value Reference Range Interpretation Comments MAGNESIUM (test code = 5106751109) 2.0 mg/dL 1.7-2.4 Lab Interpretation (test code = Normal 15308-2) [facility]2022-10-31 07:13:48 Test Item Value Reference Range Interpretation Comments ALCOHOL (test code = 165 mg/dL 2478199371) CLIFF (test code = CLIFF) <10 [id number] Toxic>100 Depression of [employer]>400 Fatalities Reported [facility]2022-10-31 07:13:48 Test Item Value Reference Range Interpretation Comments ALCOHOL (test code = 165 mg/dL 9299991757) CLIFF (test code = CLIFF) <10 [id number] Toxic>100 Depression of [employer]>400 [facility]ities [facility]orted [facility] [id number] 07:13:47 Test Item Value Reference Range Interpretation Comments URIC ACID (test code = 2344775402) 4.7 mg/dL 3.6-8.0 Lab Interpretation (test code = Normal 54625-8) [facility] [id number] 07:13:47 Test Item Value Reference Range Interpretation Comments URIC ACID (test code = 7305449888) 4.7 mg/dL 3.6-8.0 Lab Interpretation (test code = Normal 25242-0) [facility] GLUCOSE (AUTOMATED)2022-03-07 04:16:37 Test Item Value Reference Range Interpretation Comments POCT GLU (test code = 6187279605) 113 mg/dL 70-110 H Lab Interpretation (test code = Abnormal 59194-5) [facility] GLUCOSE (AUTOMATED)2022-03-07 04:16:37 Test Item Value Reference Range Interpretation Comments POCT GLU (test code = 7075845474) 113 mg/dL 70-110 H Lab Interpretation (test code = Abnormal 39683-7) [facility]OLIC PAN[facility] (75128)2022-03-07 02:43:33 Test Item Value Reference Range Interpretation Comments NA (test code = 139 mmol/L 135-145 1799396211) K (test code = 4.2 mmol/L 3.5-5.0 Slight 0964493569) hemolysis CL (test code = 101 mmol/L 98-108 0334093280) CO2 TOTAL (test code 28 mmol/L 23-31 = 8616527816) AGAP (test code = 2-16 3170012229) BUN (test code = 12 mg/dL 7-23 Slight 9657061058) hemolysis GLUCOSE (test code = 53 mg/dL 70-110 L 8297743143) CREATININE (test code 1.05 mg/dL 0.60-1.25 = 4522524831) TOTAL BILI (test code 0.7 mg/dL 0.1-1.1 = 0199490246) CALCIUM (test code = 8.7 mg/dL 8.6-10.6 8136867370) T PROTEIN (test code 7.7 g/dL 6.3-8.2 = 6126704188) ALBUMIN (test code = 4.3 g/dL 3.5-5.0 5598935080) ALK PHOS (test code = 102 U/L 34-122 Slight 4109500677) hemolysis ALTv (test code = 20 U/L 5-50 1742-6) AST(SGOT) (test code 39 U/L 13-40 Slight = 1503513825) hemolysis eGFR (test code = mL/min/1.73m2 4412482941) CLIFF (test code = CLIFF) Association of [...] tests). Lab Interpretation Abnormal (test code = 64112-0) [facility]. METABOLIC PANEL (52156)2022-03-07 02:43:33 Test Item Value Reference Range Interpretation Comments NA (test code = 139 mmol/L 135-145 9265827102) K (test code = 4.2 mmol/L 3.5-5.0 Slight 9564128677) hemolysis CL (test code = 101 mmol/L 98-108 6815278048) CO2 TOTAL (test code 28 mmol/L 23-31 = 1183378726) AGAP (test code = 2-16 9925519058) BUN (test code = 12 mg/dL 7-23 Slight 8828806749) hemolysis GLUCOSE (test code = 53 mg/dL 70-110 L 6743272538) CREATININE (test code 1.05 mg/dL 0.60-1.25 = 2621995874) TOTAL BILI (test code 0.7 mg/dL 0.1-1.1 = 3593642777) CALCIUM (test code = 8.7 mg/dL 8.6-10.6 8430114034) T PROTEIN (test code 7.7 g/dL 6.3-8.2 = 1192159203) ALBUMIN (test code = 4.3 g/dL 3.5-5.0 4092611647) ALK PHOS (test code = 102 U/L 34-122 Slight 7977456198) hemolysis ALTv (test code = 20 U/L 5-50 1742-6) AST(SGOT) (test code 39 U/L 13-40 Slight = 7639823325) hemolysis eGFR (test code = mL/min/1.73m2 1640794160) CLIFF (test code = CLIFF) Association of [...] tests). Lab Interpretation Abnormal (test code = 79389-5) [facility] WITH [id number] 02:10:35 Test Item Value Reference Range Interpretation Comments WBC (test code = See_Comment H [Automated 6890-2) message] The sy stem which generated this result transmitted reference range : 4.20 - 10.70 10*3/?L. The reference range was not used to interpret this result as normal/abnormal . RBC (test code = See_Comment [Automated 949-8) message] The sy stem which generated this [...] RDW-SD (test code = 42.8 fL 38.5-51.6 78143-4) RDW-CV (test code = 13.7 % 12.1-15.4 788-0) PLT (test code = See_Comment H [Automated 777-3) message] The sy stem which generated this result transmitted reference range : 150 - 328 10*3/ ?L. The reference r ambrosio was not used to interpret this result as normal/abnormal . MPV (test code = 9.6 fL 9.8-13.0 L 03629-2) NRBC/100 WBC (test See_Comment [Automat ed code = 1081240133) message] The system which generated this result transmitted reference range : 0.0 - 10.0 /100 WBCs. The refer ence range was not u sed to interpret th is result as normal/abnormal . NRBC x10^3 (test code See_Comment [Auto mated = 3427970270) message] The s ystem which generated this result transmitted reference range : 10*3/?L. The reference range was not used to interpret this result as normal/abnormal . GRAN MAT (NEUT) % 71.4 % (test code = 770-8) IMM GRAN % (test code 0.50 % = 5772630844) LYMPH % (test code = 19.8 % 736-9) MONO % (test code = 6.0 % 5905-5) EOS % (test code = 1.7 % 713-8) BASO % (test code = 0.6 % 706-2) GRAN MAT x10^3(ANC) 8.52 10*3/uL 1.99-6.95 H (test code = 2838066361) IMM GRAN x10^3 (test 0.06 10*3/uL 0.00-0.06 code = 2264185603) LYMPH x10^3 (test code 2.36 10*3/uL 1.09-3.23 = 731-0) MONO x10^3 (test code 0.72 10*3/uL 0.36-1.02 = 742-7) EOS x10^3 (test code = 0.20 10*3/uL 0.06-0.53 711-2) BASO x10^3 (test code 0.07 10*3/uL 0.01-0.09 = 704-7) Lab Interpretation Abnormal (test code = 24370-8) [facility] WITH [id number] 02:10:35 Test Item Value Reference Range Interpretation [...] RDW-SD (test code = 42.8 fL 38.5-51.6 28338-6) RDW-CV (test code = 13.7 % 12.1-15.4 788-0) PLT (test code = See_Comment H [Automated 777-3) message] The sy stem which generated this result transmitted reference range : 150 - 328 10*3/ ?L. The reference r ambrosio was not used to interpret this result as normal/abnormal . MPV (test code = 9.6 fL 9.8-13.0 L 57133-8) NRBC/100 WBC (test See_Comment [Automat ed code = 7997005859) message] The system which generated this result transmitted reference range : 0.0 - 10.0 /100 WBCs. The refer ence range was not u sed to interpret th is result as normal/abnormal . NRBC x10^3 (test code See_Comment [Auto mated = 6582617331) message] The s ystem which generated this result transmitted reference range : 10*3/?L. The reference range was not used to interpret this result as normal/abnormal . GRAN MAT (NEUT) % 71.4 % (test code = 770-8) IMM GRAN % (test code 0.50 % = 6179684814) LYMPH % (test code = 19.8 % 736-9) MONO % (test code = 6.0 % 5905-5) EOS % (test code = 1.7 % 713-8) BASO % (test code = 0.6 % 706-2) GRAN MAT x10^3(ANC) 8.52 10*3/uL 1.99-6.95 H (test code = 1615243463) IMM GRAN x10^3 (test 0.06 10*3/uL 0.00-0.06 code = 9561965446) LYMPH x10^3 (test code 2.36 10*3/uL 1.09-3.23 = 731-0) MONO x10^3 (test code 0.72 10*3/uL 0.36-1.02 = 742-7) EOS x10^3 (test code = 0.20 10*3/uL 0.06-0.53 711-2) BASO x10^3 (test code 0.07 10*3/uL 0.01-0.09 = 704-7) Lab Interpretation Abnormal (test code = 78521-5) [facility] GLUCOSE (AUTOMATED)2022-03-07 01:47:49 Test Item Value Reference Range Interpretation Comments POCT GLU (test code = 9702103599) 65 mg/dL 70-110 L Lab Interpretation (test code = Abnormal 37065-7) [facility] GLUCOSE (AUTOMATED)2022-03-07 01:47:49 Test Item Value Reference Range Interpretation Comments POCT GLU (test code = 5530244761) 65 mg/dL 70-110 L Lab Interpretation (test code = Abnormal 19696-4) [facility] GLUCOSE (AUTOMATED)2021-03-03 17:40:06 Test Item Value Reference Range Interpretation Comments POCT GLU (test code = 0205430723) 322 mg/dL 70-110 H Lab Interpretation (test code = Abnormal 67335-1) [facility] GLUCOSE (AUTOMATED)2021-03-03 13:09:15 Test Item Value Reference Range Interpretation Comments POCT GLU (test code = 0338704994) 316 mg/dL 70-110 H Lab Interpretation (test code = Abnormal 76118-5) [facility] METABOLIC PANEL (NA, K, CL, CO2, GLUCOSE, BUN, CREATININE, CA)2021-03-03 11:38:31 Test Item Value Reference Range Interpretation Comments NA (test code = 132 mmol/L 135-145 L 4257995284) K (test code = 4.9 mmol/L 3.5-5.0 9613907121) CL (test code = 101 mmol/L 98-108 0448755747) CO2 TOTAL (test code = 27 mmol/L 23-31 2507077076) AGAP (test code = 2-16 0384615289) BUN (test code = 19 mg/dL 7-23 6876343201) GLUCOSE (test code = 318 mg/dL 70-110 H 4706789281) CREATININE (test code = 0.88 mg/dL 0.60-1.25 2647107677) CALCIUM (test code = 9.4 mg/dL 8.6-10.6 0787234764) eGFR (test code = mL/min/1.73m2 7688816103) CLIFF (test code = CLIFF) Association of [...] tests). Lab Interpretation Abnormal (test code = 45151-0) [facility] WITH [id number] 10:44:26 Test Item Value Reference Range Interpretation Comments WBC (test code = See_Comment [Automated 6690-2) message] The sy stem which [...] RDW-SD (test code = 40.4 fL 38.5-51.6 99069-6) RDW-CV (test code = 12.8 % 12.1-15.4 788-0) PLT (test code = See_Comment H [Automated 777-3) message] The sy stem which generated this result transmitted reference range : 150 - 328 10*3/ ?L. The reference r ambrosio was not used to interpret this result as normal/abnormal . MPV (test code = 11.3 fL 9.8-13.0 64168-7) NRBC/100 WBC (test See_Comment [Automat ed code = 8480649093) message] The system which generated this result transmitted reference range : 0.0 - 10.0 /100 WBCs. The refer ence range was not u sed to interpret th is result as normal/abnormal . NRBC x10^3 (test code <0.01 See_Comment [Auto mated = 2296686360) message] The s ystem which generated this result transmitted reference range : 10*3/?L. The reference range was not used to interpret this result as normal/abnormal . GRAN MAT (NEUT) % 51.4 % (test code = 770-8) IMM GRAN % (test code 0.30 % = 5514514151) LYMPH % (test code = 29.5 % 736-9) MONO % (test code = 9.9 % 5905-5) EOS % (test code = 7.3 % 713-8) BASO % (test code = 1.6 % 706-2) GRAN MAT x10^3(ANC) 3.88 10*3/uL 1.99-6.95 (test code = 1550181284) IMM GRAN x10^3 (test <0.03 0.00-0.06 code = 2673175508) LYMPH x10^3 (test code 2.23 10*3/uL 1.09-3.23 = 731-0) MONO x10^3 (test code 0.75 10*3/uL 0.36-1.02 = 742-7) EOS x10^3 (test code = 0.55 10*3/uL 0.06-0.53 H 711-2) BASO x10^3 (test code 0.12 10*3/uL 0.01-0.09 H = 704-7) Lab Interpretation Abnormal (test code = 11786-9) [facility] GLUCOSE (AUTOMATED)2021-03-03 05:25:50 Test Item Value Reference Range Interpretation Comments POCT GLU (test code = 6992075481) 140 mg/dL 70-110 H Lab Interpretation (test code = Abnormal 07566-2) [facility] GLUCOSE (AUTOMATED)2021-03-03 05:25:49 Test Item Value Reference Range Interpretation Comments POCT GLU (test code = 8977588716) 129 mg/dL 70-110 H Lab Interpretation (test code = Abnormal 35065-4) [facility] GLUCOSE (AUTOMATED)2021-03-02 22:33:16 Test Item Value Reference Range Interpretation Comments POCT GLU (test code = 4582654805) 205 mg/dL 70-110 H Lab Interpretation (test code = Abnormal 01284-7) [facility] GLUCOSE (AUTOMATED)2021-03-02 17:32:23 Test Item Value Reference Range Interpretation Comments POCT GLU (test code = 8273078640) 253 mg/dL 70-110 H Lab Interpretation (test code = Abnormal 92728-1) [facility] [id number] 14:39:03 Test Item Value Reference Range Interpretation Comments FREE T4 (test code = See_Comment L [Autom ated message] 0186389268) The system [employer] generated this result transmitted ref erence range: 0.78 - 2 .20 ng/dL:. The ref erence range was not u sed to interpret this result as normal/abnor mal. Lab Interpretation (test Abnormal code = 66757-3) [facility] [id number] 14:38:22 Test Item Value Reference Range Interpretation Comments FREE T3 (test code = 6062965019) 2.94 pg/mL 2.77-5.27 Lab Interpretation (test code = Normal 31332-8) [facility] GLUCOSE (AUTOMATED)2021-03-02 13:04:49 Test Item Value Reference Range Interpretation Comments POCT GLU (test code = 6157705236) 177 mg/dL 70-110 H Lab Interpretation (test code = Abnormal 82879-5) [facility] Metabolic Panel (NA, K, CL, CO2, GLUCOSE, BUN, CREATININE, CA)2021-03-02 12:10:05 Test Item Value Reference Range Interpretation Comments NA (test code = 134 mmol/L 135-145 L 1839875753) K (test code = 4.8 mmol/L 3.5-5.0 8052138533) CL (test code = 106 mmol/L 98-108 0819006067) CO2 TOTAL (test code = 24 mmol/L 23-31 8745394325) AGAP (test code = 2-16 7096819999) BUN (test code = 14 mg/dL 7-23 0240606047) GLUCOSE (test code = 201 mg/dL 70-110 H 1759773310) CREATININE (test code = 0.83 mg/dL 0.60-1.25 1979555384) CALCIUM (test code = 9.4 mg/dL 8.6-10.6 1694941429) eGFR (test code = mL/min/1.73m2 5531374712) CLIFF (test code = CLIFF) Association of [...] tests). Lab Interpretation Abnormal (test code = 05279-6) [facility] GLUCOSE (AUTOMATED)2021-03-02 04:41:03 Test Item Value Reference Range Interpretation Comments POCT GLU (test code = 9869980079) 165 mg/dL 70-110 H Lab Interpretation (test code = Abnormal 43716-3) [facility] GLUCOSE (AUTOMATED)2021-03-01 21:40:23 Test Item Value Reference Range Interpretation Comments POCT GLU (test code = 9599328289) 338 mg/dL 70-110 H Lab Interpretation (test code = Abnormal 95670-3) [facility] GLUCOSE (AUTOMATED)2021-03-01 21:15:20 Test Item Value Reference Range Interpretation Comments POCT GLU (test code = 3796918641) 308 mg/dL 70-110 H Lab Interpretation (test code = Abnormal 40034-9) [facility] [id number] 20:59:15 Test Item Value Reference Range Interpretation Comments TSH (test code = See_Comment H [Automated message] 4547681147) The system [employer] generated this result transmitted ref erence range: 0.45 - 4 .70 mIU/L. The refe rence range was not u sed to interpret this result as normal/abnor mal. Lab Interpretation (test Abnormal code = 53028-2) [facility] (A1C)2021-03-01 20:50:54 Test Item Value Reference Range Interpretation Comments HGB A1C (test code = 8.6 % 4.0-5.7 H 4548-4) CLIFF (test code = CLIFF) Reference RangesNormal: <5.7%Prediabetes: 5.7 - 6.4%Diabetes: > 6.5% Lab Interpretation (test Abnormal code = 08565-1) [facility] GLUCOSE (AUTOMATED)2021-03-01 18:26:29 Test Item Value Reference Range Interpretation Comments POCT GLU (test code = 7473737063) 177 mg/dL 70-110 H Lab Interpretation (test code = Abnormal 66066-7) [facility] GLUCOSE (AUTOMATED)2021-03-01 16:52:10 Test Item Value Reference Range Interpretation Comments POCT GLU (test code = 4098972725) 112 mg/dL 70-110 H Lab Interpretation (test code = Abnormal 89435-2) [facility] GLUCOSE (AUTOMATED)2021-03-01 16:52:10 Test Item Value Reference Range Interpretation Comments POCT GLU (test code = 5544910095) 154 mg/dL 70-110 H Lab Interpretation (test code = Abnormal 93944-7) [facility] 16:14:23 Test Item Value Reference Range Interpretation Comments MAGNESIUM (test code = 1699930361) 1.8 mg/dL 1.7-2.4 Lab Interpretation (test code = Normal 35324-2) [facility]OLIC PAN[facility] (40630)2021-03-01 16:14:02 Test Item Value Reference Range Interpretation Comments NA (test code = 136 mmol/L 135-145 3488920938) K (test code = 4.1 mmol/L 3.5-5.0 3651248476) CL (test code = 105 mmol/L 98-108 1555953170) CO2 TOTAL (test code = 28 mmol/L 23-31 3077181087) AGAP (test code = 2-16 5387426995) BUN (test code = 14 mg/dL 7-23 9091708956) GLUCOSE (test code = 187 mg/dL 70-110 H 5101841546) CREATININE (test code = 0.85 mg/dL 0.60-1.25 8682390725) TOTAL BILI (test code = 0.6 mg/dL 0.1-1.6 1998040279) CALCIUM (test code = 9.0 mg/dL 8.6-10.6 0964857543) T PROTEIN (test code = 7.2 g/dL 6.3-8.2 3376686655) ALBUMIN (test code = 3.9 g/dL 3.5-5.0 1056320868) ALK PHOS (test code = 77 U/L 34-122 7358260310) ALTv (test code = 19 U/L 5-50 1742-6) AST(SGOT) (test code = 25 U/L 13-40 0734060177) eGFR (test code = mL/min/1.73m2 4851386240) CLIFF (test code = CLIFF) Association of [...] tests). Lab Interpretation Abnormal (test code = 20975-5) [facility] WITH [id number] 15:58:21 Test Item Value Reference Range Interpretation [...] RDW-SD (test code = 41.1 fL 38.5-51.6 84891-0) RDW-CV (test code = 12.7 % 12.1-15.4 788-0) PLT (test code = See_Comment H [Automated 777-3) message] The sy stem which generated this result transmitted reference range : 150 - 328 10*3/ ?L. The reference r ambrosio was not used to interpret this result as normal/abnormal . MPV (test code = 9.6 fL 9.8-13.0 L 15515-8) NRBC/100 WBC (test See_Comment [Automat ed code = 0024584401) message] The system which generated this result transmitted reference range : 0.0 - 10.0 /100 WBCs. The refer ence range was not u sed to interpret th is result as normal/abnormal . NRBC x10^3 (test code <0.01 See_Comment [Auto mated = 6547221992) message] The s ystem which generated this result transmitted reference range : 10*3/?L. The reference range was not used to interpret this result as normal/abnormal . GRAN MAT (NEUT) % 57.2 % (test code = 770-8) IMM GRAN % (test code 0.50 % = 5680860836) LYMPH % (test code = 23.8 % 736-9) MONO % (test code = 8.8 % 5905-5) EOS % (test code = 8.4 % 713-8) BASO % (test code = 1.3 % 706-2) GRAN MAT x10^3(ANC) 6.36 10*3/uL 1.99-6.95 (test code = 6636273948) IMM GRAN x10^3 (test 0.05 10*3/uL 0.00-0.06 code = 2568302389) LYMPH x10^3 (test code 2.64 10*3/uL 1.09-3.23 = 731-0) MONO x10^3 (test code 0.98 10*3/uL 0.36-1.02 = 742-7) EOS x10^3 (test code = 0.93 10*3/uL 0.06-0.53 H 711-2) BASO x10^3 (test code 0.14 10*3/uL 0.01-0.09 H = 704-7) Lab Interpretation Abnormal (test code = 64029-3) [facility] [id number] 06:00:00 Test Item Value Reference Range Interpretation Comments CULTURE (BEAKER) (test No growth in 5 days code = 1095) URINE [id number] 10:25:00 Test Item Value Reference Range Interpretation Comments CULTURE (BEAKER) (test code = 1095) No growth POCT-GLUCOSE [id number] 17:10:00 Test Item Value Reference Range Interpretation Comments POC-GLUCOSE METER 232 mg/dL 70-[address] [facility] [address] ([place]) (test code = [facility] Servin [facility] 1539) [address] CT, CTANGIO [id number] 16:41:00CTV pleaseFINAL REPORT CTV brain 02/13/2018 4:35 [...] Sky Verified Date/Time: 02/13/2018 16:41:24 Reading Location: [facility] Radiology Reading Room -GLUCOSE [id number] 13:07:00 Test Item Value Reference Range Interpretation Comments POC-GLUCOSE METER 311 mg/dL 70-110 H Notified Gareth Coronado MD/TESTED ([place]) (test code = AT [facility] [address] [facility] 0379) [facility] 7708 0 IRON, TIBC, % SAT. (WITHOUT FERRITIN)2018-02-13 10:10:00 Test Item Value Reference Range Interpretation Comments IRON ([place]) (test code = 547) 49 ug/dL 40-160 TOTAL IRON BINDING CAPACITY 231 ug/dL 250-450 L (BEAKER) (test code = 769) IRON % SATURATION (2) (BEAKER) 21 % 20-55 (test code = 2590) POCT-GLUCOSE [id number] 08:50:00 Test Item Value Reference Range Interpretation Comments POC-GLUCOSE METER 348 mg/dL 70-110 H Notified R N MD/TESTED (BEAKER) (test code = AT [facility] [address] [facility] 1538) [facility] 7703 0 BASIC METABOLIC [id number] 08:31:00 Test Item Value Reference Range Interpretation [...] NOT APPLICABLE FOR DIALYSIS PATIEN TS. LIPID [id number] 08:31:00 Test Item Value Reference Range Interpretation [...] 130-159 High 160-189 Very High >=190IMMATURE RETICULOCYTE [id number] 08:16:00 Test Item Value Reference Range Interpretation Comments IMMATURE RETIC FRACTION (BEAKER) 8.600 % 2.300-13.400 (test code = 1447) RETICULOCYTE COUNT PCT (BEAKER) (test 1.4 % 0.5-1.8 code = 575) CBC W/PLT COUNT & AUTO [id number] 08:16:00 Test Item Value Reference Range Interpretation [...] PERCENT (BEAKER) (test code = 2801) POCT-GLUCOSE [id number] 21:18:00 Test Item Value Reference Range Interpretation Comments POC-GLUCOSE METER 226 mg/dL 70-[address] [facility] [address] ([facility]) (test code = [place]ES[place] Servin [facility] 1538) [address] MR, BRAIN, WITHOUT [id number] 19:43:00FINAL REPORT MRI brain without contrast INDICATION: [...] thrombus cannot be excluded. The major proximal [place] flow voids are maintained. Mild [...] Location: [facility] Radiology Reading Room -GLUCOSE [id number] 19:01:00 Test Item Value Reference Range Interpretation Comments POC-GLUCOSE METER 362 mg/dL 70-110 H TESTED AT [place] [address] ([facility]) (test code = [place] 1538) [address] EEG AWAKE AND [id number] 17:46:00Reason for exam:->SeizureShould this be performed at the bedside?->YesCH[facility] EEG REPORTDATE OF TEST: 53-0-1480GOPM OF REPORT: [id number]: [id number]: [id number] time: 14:04Stop time: 14:24ICD-10: R56.9CPT Code: 67544LDYSVWT: 40 y old 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, [...] this report.Queenie Loco MD, PhDClinical Neurophysiology/Epilepsy AttendingCHI Kern [facility] POCT-GLUCOSE [id number] 15:33:00 Test Item Value Reference Range Interpretation Comments POC-GLUCOSE METER 213 mg/dL 70-110 H TESTED AT [place] [address] (BEAKER) ([facility] 1538) [address] TSH/FREE T4 IF [id number] 09:35:00 Test Item Value Reference Range Interpretation Comments THYROID STIMULATING HORMONE 4.03 uIU/mL 0.35-4.94 (BEAKER) (test code = 772) HEMOGLOBIN [id number] 08:47:00 Test Item Value Reference Range Interpretation Comments HEMOGLOBIN A1C (BEAKER) (test code = 6.5 % 4.3-6.1 H 368) POCT-GLUCOSE [id number] 07:55:00 Test Item Value Reference Range Interpretation Comments POC-GLUCOSE METER 219 mg/dL 70-110 H TESTED AT [place] [address] (BEAKER) (test code = [facility] Gareth [facility] 1538) [address] [id number] 05:00:00 Test Item Value Reference Range Interpretation Comments MAGNESIUM (BEAKER) (test code = 2.1 mg/dL 1.6-2.6 627) BASIC METABOLIC [id number] 05:00:00 Test Item Value Reference Range Interpretation [...] PATIEN TS. CBC W/PLT COUNT & AUTO [id number] 04:40:00 Test Item Value Reference Range Interpretation [...] PERCENT (BEAKER) (test code = 2801) POCT-GLUCOSE [id number] 04:31:00 Test Item Value Reference Range Interpretation Comments POC-GLUCOSE METER 183 mg/dL 70-[address] [facility] 6720 (BEAKER) (test code = CESAR Servin [facility] 1538) [address] RAD, ABDOMEN/KUB, 1 VIEW [id number] 01:33:00Reason for exam:->Abdominal distension, obtundationFINAL REPORT CLINICAL [...] [place] Verified Date/Time: 02/12/2018 01:33:19 Reading Location: [address] Reading Room POCT-GLUCOSE METER 2018-02-12 00:49:00 Test Item Value Reference Range Interpretation Comments POC-GLUCOSE METER 346 mg/dL 70-[address] [facility] 6720 (BEAKER) (test code = CESAR [place] 1538) [address] CBC W/PLT COUNT & AUTO [id number] 00:44:00 Test Item Value Reference Range Interpretation [...] (test code = 2801) RAPID DRUG SCREEN, [id number] 00:35:00 Test Item Value Reference Range Interpretation [...] situations. Chain of custody not maintained. Some [id number] medications, as well as adulterants, may cause [...] acute neurological disease, and persistent tachyarrhythmia.COMPREHENSIVE METABOLIC [id number] 00:09:00 Test Item Value Reference Range Interpretation [...] APPLICABLE FOR DIALYSIS PATIEN TS. URINALYSIS W/ [id number] 00:06:00 Test Item Value Reference Range Interpretation [...] = 2795) RAD, CHEST, 1 VIEW, NON [id number] 23:11:00Reason for exam:->Obtundation with coarse respirations, baselineShould this be performed at the [facility]?->YesFINAL REPORT RAD, CHEST, 1 VIEW, NON DEPT INDICATION: Obtundation with coarse respirations, baseline COMPARISON: None. FINDINGS: Portable frontal view of the chest. IMPRESSION: Support Lines: None. Lungs and pleura: Clear lungs. No pneumothorax.Heart and mediastinum: Unremarkable.Additional findings: Fluid and gaseous distention of the gastric lumen. Signed: JR Lozano Robert [place] Verified Date/Time: 02/11/2018 23:11:04 Reading Location: [address] Reading Room "
[2022-03-28] MEDS ORDERED: NA CHLORIDE 0.9% 1,000 ML ONE (13:26)
--- NOTE | 2022-03-28 14:03 | RAD REPORT ---
EXAM DESCRIPTION: CT - Head Brain Wo Cont - 03/28/2022 1:53 pm CLINICAL HISTORY: Delirium Headache, drowsiness COMPARISON: Head Brain Wo Cont dated 03/22/2022; Head Brain Wo Cont dated 11/13/2020 TECHNIQUE: All CT scans are performed using dose optimization technique as appropriate and may inclu de automated exposure control or mA/KV adjustment according to patient size. FINDINGS: No intracranial hemorrhage, hydrocephalus or extra-axial fluid collection.No areas of brai n edema or evidence of midline shift. Moderate paranasal sinus opacification is present. The calvarium is intact. IMPRESSION: No acute intracranial abnormality. Moderate opacification of both maxillary antra.
--- NOTE | 2022-03-28 14:35 | RAD REPORT ---
EXAM DESCRIPTION: RAD - Hip Right 2 View - 03/28/2022 2:27 pm CLINICAL HISTORY: PAIN COMPARISON: No comparisons FINDINGS: Right total hip arthroplasty is present. No evidence of hardware loosening or infection. N o fractures seen.
[2022-03-28 15:44] LABS: Absolute Lymphocytes (CBC) 1.9 K/uL (0.7-4.9); Hematocrit 37.9 % (39.6-49.0); Lymphocytes % 27.4 % (15.3-44.8); MCV 88.6 fL (80-100); MPV 7.9 fL (7.6-11.3); RBC Red Blood Cell Count 4.27 M/uL (4.33-5.43)
[2022-03-28 16:02] LABS: Albumin 2.5 g/dL (3.4-5.0); Bilirubin Total 0.4 mg/dL (0.2-1.0); Protein, Total 6.8 g/dL (6.4-8.2); Troponin High Sensitivity 6.6 pg/mL (<58.9)
[2022-03-28 16:04] LABS: Potassium 2.9 mmol/L (3.5-5.1)
[2022-03-28 17:34] LABS: Urine Blood Negative (Negative); Urine Glucose 2+ (Negative); Urine Protein 1+ (Negative); Urine Specific Gravity 1.015 (1.005-1.030)
[2022-03-28 17:52] LABS: Urine Mucus Slight /HPF (None Seen); Urine RBC <5 /HPF (None Seen)
[2022-03-28 18:03] LABS: Barbiturates NEGATIVE (NEGATIVE); Benzodiazepines NEGATIVE (NEGATIVE); Cocaine POSITIVE (NEGATIVE); METHAMPHETAM POSITIVE (NEGATIVE); Methadone NEGATIVE (NEGATIVE); Opiates NEGATIVE (NEGATIVE); Phencyclidine NEGATIVE (NEGATIVE); THC Cannibis NEGATIVE (NEGATIVE)
--- NOTE | 2022-03-28 18:09 | ER ---
Nurse's Notes [facility] Name: Surjit Stubbs Age: 47 yrs Sex: Male : 1975 Arrival Date: 03/28/2022 Time: 12:20 Bed 13 Private MD: Diagnosis: Altered mental status, unspecified Presentation: 03/28 12:32 Chief complaint: Patient states: dropped him off saying he has been missing x3 jh5 days; he has a habit of drugs and whores and she thinks his blood sugar is high. Coronavirus screen: Vaccine status: Patient reports being unvaccinated. Client denies travel out of the [place] in the last 14 days. Ebola Screen: Patient negative for fever greater than or equal to 101.5 degrees Fahrenheit, and additional compatible Ebola Virus Disease symptoms Patient denies exposure to infectious person. Patient denies travel to an Ebola-affected area in the 21 days before illness onset. Initial Sepsis Screen: Does the patient meet any 2 criteria? No. Patient's initial sepsis screen is negative. Does the patient have a suspected source of infection? No. Patient's initial sepsis screen is negative. Risk Assessment: Do you want to hurt yourself or someone else? Patient reports no desire to harm self or others. 12:32 Method Of Arrival: Wheelchair [facility] 12:32 Acuity: TOI 3 jh5 Triage Assessment: 12:34 General: Appears distressed, slender, Behavior is drowsy, quiet. Pain: Denies pain. [facility] Historical: - Allergies: 12:34 tramadol; 5 - PMHx: 12:34 Diabetes - IDDM; High Cholesterol; Hypothyroidism; neuropathy; Seizures; 5 - Immunization history:: Adult Immunizations up to date. - Social history:: Smoking status: unknown. - Family history:: not pertinent. Screenin:43 Abuse screen: Denies threats or abuse. Nutritional screening: No deficits noted. tw2 Tuberculosis screening: No symptoms or risk factors identified. Fall Risk None identified. Assessment: 14:42 Reassessment: Patient appears in no apparent distress at this time. No changes from tw2 previously documented assessment. Patient and/or family updated on plan of care and expected duration. Pain level reassessed. pt is drowsy but will awake when name is called. 15:18 Reassessment: Patient appears in no apparent distress at this time. No changes from tw2 previously documented assessment. Patient and/or family updated on plan of care and expected duration. Pain level reassessed. pt states "just release me", pt educated as to the need for completion of blood work at this time. 15:40 Reassessment: Patient appears in no apparent distress at this time. No changes from tw2 previously documented assessment. Patient and/or family updated on plan of care and expected duration. Pain level reassessed. 16:15 Reassessment: Patient appears in no apparent distress at this time. No changes from tw2 previously documented assessment. Patient and/or family updated on plan of care and expected duration. Pain level reassessed. 17:14 Reassessment: Patient appears in no apparent distress at this time. No changes from tw2 previously documented assessment. Patient and/or family updated on plan of care and expected duration. Pain level reassessed. pt awakes to his name being called. asked pt for urine sample and instructed pt that he needed to wake up. pt states "i will try but i dont have to go". Vital Signs: 12:32 BP 114 / 78; Pulse 89; Resp 18; Temp 97.8; Pulse Ox 100% ; Weight 81.65 kg; Height 5 [facility] ft. 8 in. (172.72 cm); Pain 0/10; 14:43 BP 125 / 83; Pulse 80; Resp 17; Pulse Ox 100% on R/A; tw2 15:50 BP 128 / 84; Pulse 76; Resp 17; Pulse Ox 99% on R/A; tw2 16:12 BP 117 / 81; Pulse 76; Resp 17; Pulse Ox 100% on R/A; tw2 17:14 BP 114 / 72; Pulse 74; Resp 17; Pulse Ox 99% on R/A; tw2 12:32 Body Mass Index 27.37 (81.65 kg, 172.72 cm) [facility] ED Course: 12:20 Patient arrived in ED. 4 12:34 Triage completed. 5 12:34 Arm band placed on right wrist. 5 13:06 Bed in low position. Call light in reach. Side rails up X2. Pulse ox on. NIBP on. Warm tw2 blanket given. 13:08 Mack Goldberg MD is Attending Physician. rt 13:21 Venice Medellin, RN is Primary Nurse. tw2 13:40 Inserted saline lock: 20 gauge in right hand, using aseptic technique. Blood collected. tw2 13:55 CT Head Brain wo Cont In Process Unspecified. EDMS 14:29 Hip Right 2 View XRAY In Process Unspecified. EDMS 18:11 No provider procedures requiring assistance completed. IV discontinued, intact, tw2 bleeding controlled, No redness/swelling at site. Pressure dressing applied, pt pulled iv out PRIOR to discharge, no bleeding noted as pt was walking out of ER. Administered Medications: 13:40 Drug: NS 0.9% 1000 ml Route: IV; Rate: 1 bolus; Site: right hand; tw2 14:40 Follow up: Response: No adverse reaction; IV Status: Completed infusion; IV Intake: tw2 1000ml Medication: 14:43 VIS not applicable for this client. tw2 Intake: 14:40 IV: 1000ml; Total: 1000ml. tw2 Outcome: 18:09 Discharge ordered by MD. rt 18:12 Discharged to home ambulatory, with friend. tw2 18:12 Condition: stable 18:12 Discharge instructions given to patient, friend, Instructed on discharge instructions, follow up and referral plans. Demonstrated understanding of pt left PRIOR to signing and waiting for discharge papers 18:13 Patient left the ED. tw2 Signatures: Dispatcher [employer] Venice Maldonado RN RN tw2 Tiki Bond rg4 Elizabeth Howe RN RN jh5 Mack Goldberg MD MD rt Corrections: (The following items were deleted from the chart) 13:05 12:32 Pulse 89bpm; Resp 18bpm; Pulse Ox 100%; Temp 97.8F; 81.65 kg; Height 5 ft. 8 in.; jh5 BMI: 27.3; Pain 0/10; jh5 16:14 14:42 Reassessment: Patient appears in no apparent distress at this time. No changes tw2 from previously documented assessment. Patient and/or family updated on plan of care and expected duration. Pain level reassessed. tw2 17:17 17:14 Reassessment: Patient appears in no apparent distress at this time. No changes tw2 from previously documented assessment. Patient and/or family updated on plan of care and expected duration. Pain level reassessed. tw2
--- NOTE | 2022-03-28 18:10 | EDPHYS ---
Physician Documentation [facility] Name: Surjit Stubbs Age: 47 yrs Sex: Male : 1975 Arrival Date: 03/28/2022 Time: 12:20 Bed 13 Private MD: ED Physician Mack Goldberg HPI: 03/28 16:11 This 47 yrs old Male presents to ER via Wheelchair with complaints of High Blood Sugar. rt 16:11 Onset: The symptoms/episode began/occurred at an unknown time. Associated signs and rt symptoms: Pertinent negatives: diarrhea, nausea. Presents to the ED with reported confusion. The patient was reportedly for about 3 days. He states that he fell and hit his head, right hip. He has pain to that area. The patient denies knowledge of the event over the past 3 days. Patient's reportedly thinks that his blood sugar is high. Patient denies other acute complaints at this time, symptoms are moderate in severity, no other aggravating or alleviating factors.. Historical: - Allergies: 12:34 tramadol; jh5 - PMHx: 12:34 Diabetes - IDDM; High Cholesterol; Hypothyroidism; neuropathy; Seizures; jh5 - Immunization history:: Adult Immunizations up to date. - Social history:: Smoking status: unknown. - Family history:: not pertinent. ROS: 16:11 Constitutional: Negative for fever, chills, and weight loss, Eyes: Negative for injury, rt pain, redness, and discharge, ENT: Negative for injury, pain, and discharge, Neck: Negative for injury, pain, and swelling, Cardiovascular: Negative for chest pain, palpitations, and edema, Respiratory: Negative for shortness of breath, cough, wheezing, and pleuritic chest pain, Abdomen/GI: Negative for abdominal pain, nausea, vomiting, diarrhea, and constipation, Skin: Negative for injury, rash, and discoloration, Psych: Negative for depression, anxiety, suicide ideation, homicidal ideation, and hallucinations. 16:11 MS/extremity: Positive for injury or acute deformity, Negative for erythema. 16:11 Neuro: Positive for altered mental status, headache. Exam: 16:11 Constitutional: This is a well developed, well nourished patient who is awake, alert, rt and in no acute distress. Head/Face: Normocephalic, atraumatic. Eyes: Pupils equal round and reactive to light, extra-ocular motions intact. Lids and lashes normal. Conjunctiva and sclera are non-icteric and not injected. Cornea within normal limits. Periorbital areas with no swelling, redness, or edema. ENT: Nares patent. No nasal discharge, no septal abnormalities noted. Tympanic membranes are normal and external auditory canals are clear. Oropharynx with no redness, swelling, or masses, exudates, or evidence of obstruction, uvula midline. Mucous membranes moist. Neck: Trachea midline, no thyromegaly or masses palpated, and no cervical lymphadenopathy. Supple, full range of motion without nuchal rigidity, or vertebral point tenderness. No Meningismus. Chest/axilla: Normal chest wall appearance and motion. Nontender with no deformity. No lesions are appreciated. Cardiovascular: Regular rate and rhythm with a normal S1 and S2. No gallops, murmurs, or rubs. Normal PMI, no JVD. No pulse deficits. Respiratory: Lungs have equal breath sounds bilaterally, clear to auscultation and percussion. No rales, rhonchi or wheezes noted. No increased work of breathing, no retractions or nasal flaring. Abdomen/GI: Soft, non-tender, with normal bowel sounds. No distension or tympany. No guarding or rebound. No evidence of tenderness throughout. Skin: Warm, dry with normal turgor. Normal color with no rashes, no lesions, and no evidence of cellulitis. MS/ Extremity: Pulses equal, no cyanosis. Neurovascular intact. Full, normal range of motion. Neuro: Awake and alert, GCS 15, oriented to person, place, time, and situation. Cranial nerves II-XII grossly intact. Motor strength 5/5 in all extremities. Sensory grossly intact. Cerebellar exam normal. Normal gait. Psych: Awake, alert, with orientation to person, place and time. Behavior, mood, and affect are within normal limits. 16:11 ECG was reviewed by the Attending Physician. rt Vital Signs: 12:32 BP 114 / 78; Pulse 89; Resp 18; Temp 97.8; Pulse Ox 100% ; Weight 81.65 kg; Height 5 jh5 ft. 8 in. (172.72 cm); Pain 0/10; 14:43 BP 125 / 83; Pulse 80; Resp 17; Pulse Ox 100% on R/A; tw2 15:50 BP 128 / 84; Pulse 76; Resp 17; Pulse Ox 99% on R/A; tw2 16:12 BP 117 / 81; Pulse 76; Resp 17; Pulse Ox 100% on R/A; tw2 17:14 BP 114 / 72; Pulse 74; Resp 17; Pulse Ox 99% on R/A; tw2 12:32 Body Mass Index 27.37 (81.65 kg, 172.72 cm) jh5 MDM: 13:08 Patient medically screened. rt 18:14 Differential Diagnosis altered mental status, CVA, Intoxication, metabolic rt derrangement. Data reviewed: vital signs, nurses notes, EMS record, lab test result(s), EKG, radiologic studies. ED course: Patient presents to the ED with an altered mental status. Patient has no lateralizing deficits, do not suspect an acute CVA. The patient's electrolytes revealed mild hypokalemia without EKG changes. CT scan of the head is unremarkable. While awaiting completion of the patient's work-up, he left without informing staff, therefore, was not able to discuss risks and benefits.. 03/28 12:35 Order name: Glucose, Ancillary Testing; Complete Time: 12:36 EDMS 03/28 13:19 Order name: CBC with Diff; Complete Time: 16:51 rt 03/28 13:19 Order name: CMP; Complete Time: 16:51 rt 03/28 13:19 Order name: UDS; Complete Time: 18:13 rt 03/28 13:19 Order name: UA MICROSCOPIC; Complete Time: 18:13 rt 03/28 13:19 Order name: Urine Dipstick-Ancillary (obtain specimen); Complete Time: 17:41 rt 03/28 13:19 Order name: CT Head Brain wo Cont; Complete Time: 14:55 rt 03/28 13:19 Order name: Hip Right 2 View XRAY; Complete Time: 14:55 rt 03/28 13:19 Order name: EKG - Nurse/Tech; Complete Time: 13:45 rt 03/28 13:19 Order name: Troponin HS; Complete Time: 16:51 rt 03/28 17:34 Order name: Urine Dipstick-Ancillary; Complete Time: 18:13 EDMS 03/28 13:22 Order name: IV Start; Complete Time: 13:45 tw2 03/28 13:49 Order name: Labs - recollect needed: recollect 2 light green and 1 lavender top; bd Complete Time: 15:09 EC:11 Rate is 76 beats/min. Rhythm is regular, Normal Sinus Rhythm with No ectopy. QRS [place] rt is Normal. MO interval is normal. QRS interval is normal. QT interval is normal. No Q waves. T waves are Normal. No ST changes noted. Clinical impression: Normal ECG. Interpreted by me. Administered Medications: 13:40 Drug: NS 0.9% 1000 ml Route: IV; Rate: 1 bolus; Site: right hand; tw2 14:40 Follow up: Response: No adverse reaction; IV Status: Completed infusion; IV Intake: tw2 1000ml Disposition Summary: 03/28/22 18:09 Discharge Ordered Location: Home rt Problem: new rt Symptoms: are resolved rt Condition: Stable rt Diagnosis - Altered mental status, unspecified rt Followup: rt - With: Private Physician - When: 2 - 3 days - Reason: Discharge Instructions: - Discharge Summary Sheet rt - Confusion rt Forms: - Medication Reconciliation Form rt - Thank You Letter rt - Antibiotic Education rt - Prescription Opioid Use rt Signatures: Dispatcher [employer] EDCarmen Sheffield bd Venice Medellin, RN RN tw2 Elizabeth Howe RN RN jh5 Mack Goldberg MD MD rt
[2022-03-28 18:17] VITALS: TEMP 97.8
[2022-03-28 18:22] VITALS: BP 114/72; O2SAT 99
--- NOTE | 2022-03-29 13:50 | EKG ---
Test Date: 2022-03-28 Test Time: 13:40:38 Prison Officer: PORFIRIO MEASUREMENT RESULTS: Intervals: Rate: 76 MD: 128 QRSD: 82 QT: 426 QTc: 479 [place]: P: 59 MD: 128 QRS: 87 T: 88 INTERPRETIVE STATEMENTS: Normal sinus rhythm Normal ECG Compared to ECG 03/22/2022 23:19:23 Prolonged QT interval no longer present Electronically Signed On 03-29-22 13:47:42 RESIDENTIAL TECH by Aris Vaca
== END 2022-03-28 18:13 | disposition home or self-care (01) ==
LOC: ER 12:16
DX: R41.82 Altered mental status, unspecified (principal); E11.9 Type 2 diabetes mellitus without complications; Z88.6 Allergy status to analgesic agent
CPT/HCPCS: 36415; 70450; 80053; 80307; 81003; 81015; 82947; 84484; 85025; 93005; 96360; 99284; J7030

== ENCOUNTER 2022-04-13 04:18 | Inpatient (IN) | payer SELFPAY ==
--- OUTSIDE RECORDS SUMMARY | 2022-04-13 04:24 | XMS REPORT | Continuity of Care Document ---
:1975 Author Organization [facility] t Address [address] [place] [address] Care Team Providers Name Role Phone VernonDale Kari Primary Care Physician BELINDA CONTRERAS Attending Clinician Unavailable Belinda Mitchell Attending Clinician Patricia Rodriguez LVN Attending Clinician JORGE WHITE Attending Clinician Unavailable Lorraine Trevizo MD Attending Clinician Jorge White MD Attending Clinician Velasquez Alexander MD Attending Clinician [phone] Tor Montano MD Attending Clinician ANDREI MALHOTRA [...] Number Effective Date Expiration Date Aminata patrick [facility] [id number] 2020 LONG TERM 00:00:00 MEDICAID SSI PENDING 2020 PENDING 00:00:00 [...] s Type 1 Type 1 Disease Active [facility] diabetes diabetes ity of mellitus mellitus [place] with with Medical hypoglycem hypoglycem Br anch ia ia Allergies, Adverse Reactions, Alerts Allergy Allergy Status Severity Reaction(s) Onset Inactive Treating Comm ents Source Name Type Date Date Clinician TRAMADOL DRUG Active N/V Univers INGREDI 11-03 ity of 00:00: [address] Tramadol Propensi Active Nausea Univer s ty to and/or 11-03 ity of adverse Vomiting 00:00: [place] reaction [address] [place] [address] s Branch Social History Social Habit Start Date Stop Date Quantity Comments Source History of Cigarette Smoker Universi ty of tobacco use [facility] Exposure to 2022-03-08 2022-03-18 Not sure University of SARS-CoV-2 00:00:00 10:46:00 [facility] [place] (event) [place] Alcohol intake 2022-03-18 2022-03-18 Current drinker Unive rsity of 00:00:00 00:00:00 of alcohol [facility] [place] (finding) [place] Alcohol Comment 2022-03-07 2022-03-07 socially Universit y of 00:00:00 00:00:00 [facility] Tobacco use and 2018-02-13 2018-02-[address] [facility] exposure 00:00:00 00:00:00 [facility] Sex Assigned At [address] [facility] Smoking Status Start Date Stop Date Source Smokes tobacco daily 2022-03-06 00:00:00 Univers ity of [facility] Medications Ordered Filled Start Stop Current [...] by ity of tablet 15:53: mouth at [place] [address] bedtime. Medical Branch insulin 2021-05 Yes 30U [...] by ity of capsule 15:53: mouth in [place] 23 the Medical morning. Branch Thyroid, 2021-05 Yes 120mg Take 120 Univ ers Pork, 1-02 mg by ity of (ARMOUR 15:53: mouth [place] THYROID) 23 daily. Medical 120 mg Branch tablet lisinopriL 2021-05- No 20mg Take 20 mg Univers 20 mg 05-09 by mouth ity of tablet 12:42: 00:00 in the [place] 38 :00 morning. Medical Branch Sliding 2021-05 Yes Subcutaneo Univ ers Scale 02 us, TID ity of Insulin - 03:15: MEALS+HS, [place] Lispro 00 First dose Medical (HumaLOG) + (after Branch Fsbg last Testing modificati on) on Mon03/08/22 at 2215, Until Discontinu ed, Routine insulin 2021-05 Yes 20U 20 Units, Unive rs glargine 05-09 Subcutaneo ity o f (LANTUS 02:00: us, [facility], [place] U-100) 00 First dose Medical injection on [facility] 20 Units 03/08/22 at 2100, Until Discontinu ed, Routine insulin 2021-05 Yes 20U 20 Units, Unive rs glargine 05-09 Subcutaneo ity o f (LANTUS 02:00: us, [facility], [place] U-100) 00 First dose Medical injection on [facility] 20 Units 03/08/22 at 2100, Until Discontinu ed, Routine aspirin 2021-05- Yes [id number] 325mg Take 1 U nivers E.C. 325 mg 05-09 tablet by it y of EC tablet 00:00: 05:59 mouth in [place] 00 :00 the Medical morning Branch and 1 tablet in the evening. Take with meals. Do all this for 26 days. aspirin 2021-05- Yes [id number] 325mg Take 1 U nivers E.C. 325 mg 05-09 tablet by it y of EC tablet 00:00: 05:59 mouth in [place] 00 :00 the Medical morning Branch and 1 tablet in the evening. Take with meals. Do all this for 26 days. aspirin 2021-05- Yes [id number] 325mg Take 1 U nivers E.C. 325 mg 05-09 tablet by it y of EC tablet 00:00: 05:59 mouth in [place] 00 :00 the Medical morning Branch and 1 tablet in the evening. Take with meals. Do all this for 26 days. aspirin 2021-05- Yes [id number] 325mg Take 1 U nivers E.C. 325 [...] :00 1 dose, On Medic al U-100) [facility] Branch injection 03/08/22 at 10 Units 1315, Routine thyroid 2021-05 Yes 120mg 120 mg, Univer s (ARMOUR 05-08 Oral, ity of THYROID) 11:00: QAM-0600, [place] tablet 120 00 First dose Med ical mg on [facility] Branch 03/08/22 at 0600, Until Discontinu ed thyroid 2021-05 Yes 120mg 120 mg, Univer s (ARMOUR 05-08 Oral, ity of THYROID) 11:00: QAM-0600, [place] tablet 120 00 First dose Med ical mg on [facility] Branch 03/08/22 at 0600, Until Discontinu ed ketorolac 2021-05- No 15mg 15 mg, Unive rs (TORADOL) 05-08 Slow IV ity of injection 02:30: 02:19 Push, [place] 15 mg 00 :00 ONCE, 1 Medical dose, On Branch [facility] 03/07/22 at 2130, Routine gemfibroziL 2021-05 Yes 600mg 600 mg, Un lucila (LOPID) 05-08 Oral, QHS, ity of tablet 600 02:00: First dose [place] mg 00 on [facility] 03/07/22 Branch at 2100, Until Discontinu ed, Routine gemfibroziL 2021-05 Yes 600mg 600 mg, Un lucila (LOPID) 05-08 Oral, QHS, ity of tablet 600 02:00: First dose [place] mg 00 on [facility] 03/07/22 Branch at 2100, Until Discontinu ed, Routine ceFAZolin 2021-05- No 1g 1 g, IV Univ ers (ANCEF) 1 g 03-07 Piggyback, i ty of in NaCl 23:00: 23:34 ONCE, 1 [place] 0.9% (NS) 00 :00 dose, On Medica l 50 mL [facility] MINI-BAG 03/07/22 at 1800, Administer over 30 [...] 0-31 Oral, ity of ) 17:11: Q8HPRN, [place] disintegrat 32 Starting Medi rogers ing tablet on Mon Branch 4 mg 03/07/22 at 1211, Until Discontinu ed, Routine, Nausea and Vomiting (N/V) ondansetron 2021-05 Yes 4mg 4 mg, Unive rs (ZOFRAN-ODT 0-31 Oral, ity of ) 17:11: Q8HPRN, [place] disintegrat 32 Starting Medi rogers ing tablet [...] mouth ity of tablet 15:01: in the [place] [address] morning. Medical Branch gabapentin 2021-05 Yes 100mg Take 100 Un lucila 100 mg 0-31 mg by ity of capsule 15:01: mouth in [place] 50 the Medical morning. Branch Thyroid, 2021-05 Yes 120mg Take 120 Univ ers Pork, 0-31 mg by ity of (ARMOUR 15:01: mouth [place] THYROID) 50 daily. Medical 120 mg Branch tablet insulin 2021-05 Yes 30U inject 30 Unive rs detemir 0-31 Units ity of U-100 100 15:01: under the [place] unit/mL 50 skin at Medical injection bedtime. Branch lisinopriL 2021-05 Yes 20mg Take 20 mg U nivers 20 mg 0-31 by mouth ity of tablet 15:01: in the [place] [address] morning. Medical Branch gabapentin 2021-05 Yes 100mg Take 100 Un lucila 100 mg 0-31 mg by ity of capsule 15:01: mouth in [place] 50 the Medical morning. Branch Thyroid, 2021-05 Yes 120mg Take 120 Univ ers Pork, 0-31 mg by ity of (ARMOUR 15:01: mouth [place] THYROID) 50 daily. Medical 120 mg Branch [...] [place] 00 :24 Starting Medical on [facility] Branch 03/07/22 at 0949, Until Mon03/07/22 at [...] injection 00 :24 Starting Medica l on [facility] 03/07/22 at 0947, Until Mon03/07/22 at 1255, [...] [place] 00 :24 Starting Medical on [facility] 03/07/22 at 0941, Until Mon03/07/22 at 1255, [...] Medical Infusion, Branch CONTINUOUS , Starting on [facility] 03/07/22 at 0900, Until Discontinu ed, Routine NaCl 0.45% 2021-05 Yes 1000mL at 100 Uni vers (1/2NS) IV 0-31 mL/hr, ity of infusion 14:00: 1,000 mL, [place] 1,000 mL 00 IV Medical Infusion, Branch CONTINUOUS , Starting on [facility] 03/07/22 at 0900, Until Discontinu ed, Routine lisinopriL 2021-05- No 5mg 5 mg, Unive rs (PRINIVIL,Z 0-31 11- Oral, ity of ESTRIL) 14:00: 13:39 DAILY, [place] tablet 5 mg 00 :00 First dose Me dical on [facility] 03/07/22 at 0900, Until Discontinu ed, Routine KCL 2021-05- No 20meq 20 mEq, Univers (KLOR-CON 0-03-07 Oral, ity of M20) tablet 13:45: 13:06 ONCE, 1 [place] 20 mEq 00 :00 dose, On Medical [facility] 03/07/22 at 0845, Routine magnesium 2021-05 Yes 400mg 400 mg, Univ ers oxide 0-31 Oral, BID, ity of (MAG-OX 13:00: First dose [place] 400) tablet 00 on [facility] Medica l 400 mg 03/07/22 Branch at 0800, Until Discontinu ed, Routine docusate 2021-05 Yes 100mg 100 mg, Unive rs (COLACE) 0-31 Oral, BID, ity o f capsule 100 13:00: First dose [place] mg 00 on [facility] 03/07/22 Branch at 0800, Until Discontinu ed, Routine Sliding 2021-05 Yes Subcutaneo Univ ers Scale 0-31 us, TID ity of Insulin - 13:00: MEALS, [place] Lispro 00 First dose Medical (HumaLOG) + on [facility] Fsbg 03/07/22 Testing at 0800, Until Discontinu ed, Routine magnesium 2021-05 Yes 400mg 400 mg, Univ ers oxide 0-31 Oral, BID, ity of (MAG-OX 13:00: First dose [place] 400) tablet 00 on [facility] Medica l 400 mg 03/07/22 Branch at 0800, Until Discontinu ed, Routine docusate 2021-05 Yes 100mg 100 mg, Unive rs (COLACE) 0-31 Oral, BID, ity o f capsule 100 13:00: First dose [place] mg 00 on [facility] Medical 03/07/22 Branch at 0800, Until Discontinu ed, Routine Sliding 2021-05- Subcutaneo Uni vers Scale 0-31 11-02 us, TID ity of Insulin - 13:00: 03:13 MEALS, [place] Lispro 00 :07 First dose Medical (HumaLOG) + on [facility] Branch Fsbg 03/07/22 Testing at 0800, Until Discontinu ed, Routine insulin 2021-05 Yes 10U inject 10 Unive rs aspart 0-31 Units ity of RAPID 100 12:15: under the [place] unit/mL 20 skin 3 Medical injection (three) Branch times daily with meals. gemfibroziL 2021-05 Yes 600mg Take 600 U nivers 600 mg 0-31 mg by ity of tablet 12:15: mouth at [place] 20 bedtime. Medical Branch insulin 2021-05 Yes 10U inject 10 Unive rs aspart 0-31 Units ity of RAPID 100 12:15: under the [place] unit/mL 20 skin 3 Medical injection (three) Branch times daily with meals. gemfibroziL 2021-05 Yes 600mg Take 600 U nivers 600 mg 0-31 mg by ity of tablet 12:15: mouth at [place] 20 bedtime. Medical Branch levothyroxi 2021-05- No 50ug 50 mcg, Un lucila ne 0-31 - Oral, ity of (SYNTHROID) 11:00: 23:00 QAM-0600, [place] tablet 50 00 :42 First dose Medi rogers mcg on [facility] Branch 03/07/22 at 0600, Until Discontinu ed, Routine morpHINE (2021-05 Yes 4mg 4 mg, Slow Univers mg/mL) 0-31 IV Push, ity of injection 4 07:23: Q4HPRN, [place] mg 08 Starting Medical on [facility] Branch 03/07/22 at 0223, Until Discontinu ed, Routine, Pain (scale 7-10) morpHINE (2021-05 Yes 4mg 4 mg, Slow Univers mg/mL) 0-31 IV Push, ity of injection 4 07:23: Q4HPRN, [place] mg 08 Starting Medical on [facility] Branch 03/07/22 at 0223, Until Discontinu ed, [...] 06:15: First dose [place] mg 00 on [facility] 03/07/22 Branch at 0115, Until Discontinu ed, Routine gabapentin 2021-05 Yes 100mg 100 mg, Uni vers (NEURONTIN) 0-31 Oral, TID, it y of capsule 100 06:15: First dose [place] mg 00 on [facility] 03/07/22 Branch at 0115, Until Discontinu ed, Routine ondansetron 2021-05 Yes 4mg 4 mg, Slow Univers (ZOFRAN 0-31 IV Push, ity of (PF)) 06:10: Q6HPRN, [place] injection 4 22 Starting Medi rogers mg on [facility] 03/07/22 at 0110, Until Discontinu ed, Routine, Nausea and Vomiting (N/V) ondansetron 2021-05 Yes 4mg 4 mg, Slow Univers (ZOFRAN 0-31 IV Push, ity of (PF)) 06:10: Q6HPRN, [place] injection 4 22 Starting Medi rogers mg on [facility] 03/07/22 at 0110, Until Discontinu ed, Routine, [...] 55 Starting Medica l 25 mL on [facility] Branch 03/07/22 at 0108, Until Discontinu ed, MARCOS, Blood Glucose < or = 70 mg/dL and patient is unable to swallow or has mental status changes. glucagon 2021-05 Yes 1mg 1 mg, Univers (GLUCAGEN 0-31 Intramuscu ity of DIAGNOSTIC 06:08: [place], PRN, [place] KIT) 55 Starting Medical injection 1 on [facility] Branch mg 03/07/22 at 0108, Until Discontinu ed, MARCOS, Blood Glucose < or = 70 mg/dL and patient is unable to swallow or has mental changes. dextrose 50 2021-05 Yes 25mL 25 mL, Univ ers % in water 0-31 Slow IV ity of (D50W) 06:08: Push, PRN, [place] injection 55 Starting Medica l 25 mL on [facility] Branch 03/07/22 at 0108, Until Discontinu ed, [...] mL Infusion, Branch CONTINUOUS , Starting on [place] 03/06/22 at 2200, Until [facility] 03/07/22 at 0746, MARCOS ondansetron 2021-05 No [...] 03/06/22 at 2100, STAT levothyroxi 2020-05- No [id number] 75ug Take 1 Univers ne 75 mcg [...] by ity of tablet 12:55: mouth at [place] 59 bedtime. Medical Branch insulin 2020-05- No [...] First dose [place] mg 00 on [facility] 03/02/21 Branch at 2100, Until Discontinu ed, Routine gabapentin 2020-05 Yes 300mg 300 mg, Uni vers (NEURONTIN) 0-27 Oral, QHS, it y of capsule 300 02:00: First dose [place] mg 00 on [facility] 03/02/21 Branch at 2100, Until Discontinu ed, Routine insulin 2020-05- No [id number] 20U inject 20 Univers detemir 0-03 04-27 Units ity of U-100 00:00: 05:59 under the [place] (LEVEMIR 00 :00 skin daily Medic al U-100 for 30 Branch INSULIN) days. 100 unit/mL injection gabapentin 2020-05- No [id number] 300mg Take 1 Univers 300 mg 0-03 [...] On Medi rogers mg Mon03/01/21 at 1200, MACROS D5W 0.45% 2020-05- No 1000mL at 125 Uni vers NaCl 0-25 10-25 mL/hr, ity of (1/2NS) IV 17:00: 21:29 1,000 mL, [place] infusion 00 :40 IV Medical 1,000 mL Infusion, Branch CONTINUOUS , Starting on Mon03/01/21 at 1200, Until Mon03/01/21 at 1629, MARCOS ondansetron 2019-0 Yes [id number] 4mg Take 1 Univers (ZOFRAN 1-28 tablet by ity of ODT) 4 mg 00:00: mouth [place] disintegrat 00 every 8 Medic al ing tablet (eight) Branch hours as needed for Nausea and Vomiting (N/V). ondansetron 2019-0 Yes [id number] 4mg Take 1 Univers (ZOFRAN 1-28 tablet by ity of ODT) 4 mg 00:00: mouth [place] disintegrat 00 every 8 Medic al ing tablet (eight) Branch hours as needed for Nausea and Vomiting (N/V). ondansetron 2018-0 Yes [id number] 4mg Take 1 Univers (ZOFRAN 1-28 tablet by ity of ODT) 4 mg 00:00: mouth [place] disintegrat 00 every 8 Medic al ing tablet (eight) Branch hours as needed for Nausea and Vomiting (N/V). ondansetron 2018-0 Yes [id number] 4mg Take 1 Univers (ZOFRAN 1-28 tablet by ity of ODT) 4 mg 00:00: mouth [place] disintegrat 00 every 8 Medic al ing tablet (eight) Branch hours as needed for Nausea and Vomiting (N/V). ondansetron 2018-0 Yes [id number] 4mg Take 1 Univers (ZOFRAN 1-28 tablet by ity of ODT) 4 mg 00:00: mouth [place] disintegrat 00 every 8 Medic al ing tablet (eight) Branch hours as needed for Nausea and Vomiting (N/V). ondansetron 2018-0 Yes [id number] 4mg Take 1 Univers (ZOFRAN 1-28 tablet by ity of ODT) 4 mg 00:00: mouth [place] disintegrat 00 every 8 Medic al ing tablet (eight) Branch hours as needed for Nausea and Vomiting (N/V). ondansetron 0 Yes [id number] 4mg Take 1 Univers (ZOFRAN 1-28 tablet [...] Immunizations Ordered Filled Immunization Date Status Comments [facility] e Immunization Name Name SARS-COV-2 COVID-19 2021-03-03 Completed Unive rsity of PFIZER VACCINE 00:00:00 [facility] SARS-COV-2 COVID-19 2021-03-03 Completed Unive rsity of PFIZER VACCINE 00:00:00 [facility] SARS-COV-2 COVID-19 2021-03-03 Completed Unive rsity of PFIZER VACCINE 00:00:00 [facility] SARS-COV-2 COVID-19 2021-03-03 Completed Unive rsity of PFIZER VACCINE 00:00:00 [facility] SARS-COV-2 COVID-19 2021-03-03 Completed Unive rsity of PFIZER VACCINE 00:00:00 [facility] SARS-COV-2 COVID-19 2021-03-03 Completed Unive rsity of PFIZER VACCINE 00:00:00 [facility] SARS-COV-2 COVID-19 2021-03-03 Completed Unive rsity of PFIZER VACCINE 00:00:00 [facility] Influenza Virus 2018-02-13 Completed Universit y of Vaccine Quad IM 3+ 00:00:00 [facility] Influenza Virus 2018-02-13 Completed Universit y of Vaccine Quad IM 3+ 00:00:00 [facility] Influenza Virus 2018-02-13 Completed Universit y of Vaccine Quad IM 3+ 00:00:00 [facility] Influenza Virus 2018-02-13 Completed Universit y of Vaccine Quad IM 3+ 00:00:00 [facility] Influenza Virus 2018-02-13 Completed Universit y of Vaccine Quad IM 3+ 00:00:00 [facility] Influenza Virus 2018-02-13 Completed Universit y of Vaccine Quad IM 3+ 00:00:00 [facility] Influenza Virus 2018-02-13 Completed Universit y of Vaccine Quad IM 3+ 00:00:00 [facility] Influenza Four-QIV 2018-02-[address] [facility] Non-PF 5+ YR 00:00:00 Medical [facility] er Influenza Four-QIV 2018-02-[address] [facility] Non-PF 5+ YR 00:00:00 Medical [facility] er Influenza Four-QIV 2018-02-[address] [facility] Non-PF 5+ YR 00:00:00 Medical [facility] er Influenza Four-QIV 2018-02-[address] [facility] Non-PF 5+ YR 00:00:00 Medical [facility] er Influenza Four-QIV 2018-02-[address] [facility] Non-PF 5+ YR 00:00:00 Medical [facility] er Vital Signs Vital Name Observation Time Observation Value Comments Source Systolic blood 2022-03-18 164 mm[Hg] University of pressure 17:00:00 [facility] Diastolic blood 2022-03-18 99 mm[Hg] University o f pressure 17:00:00 [facility] Heart rate 2022-03-18 113 /min University of 17:00:00 [facility] Oxygen saturation 2022-03-18 99 /min [facility] Arterial blood 17:00:00 [facility] by Pulse oximetry [place] Body height 2022-03-18 170.2 cm University of 16:57:00 [facility] Body weight 2022-03-18 62.687 kg University of 16:57:00 [facility] BMI 2022-03-18 21.65 kg/m2 University of 16:57:00 [facility] Systolic blood 2022-03-09 115 mm[Hg] University of pressure 16:33:00 [facility] Diastolic blood 2022-03-09 74 mm[Hg] University o f pressure 16:33:00 [facility] Heart rate 2022-03-09 91 /min University of 16:33:00 [facility] Body temperature 2022-03-09 36.5 Elisha University of 16:33:00 [facility] [place] Branch Respiratory rate 2022-03-09 18 /min University of 16:33:00 [facility] [place] Branch Oxygen saturation 2022-03-09 95 /min University of in Arterial blood 16:33:00 [place] Medi rogers by Pulse oximetry Branch Body height 2022-03-07 175.3 cm University of 03:34:00 [facility] Body weight 2022-03-07 68.04 kg University of 03:34:00 [facility] [place] Branch BMI 2022-03-07 22.15 kg/m2 University of 03:34:00 [facility] [place] Branch Respiratory rate 2022-03-07 15 /min University of 17:37:00 [facility] [place] Branch Systolic blood 2022-03-07 150 mm[Hg] University of pressure 12:39:00 [facility] [place] Branch Diastolic blood 2022-03-07 92 mm[Hg] University o f pressure 12:39:00 [facility] Heart rate 2022-03-07 113 /min University of 12:39:00 [facility] Body temperature 2022-03-07 36.67 Elisha University of 12:39:00 [facility] [place] Branch Respiratory rate 2022-03-07 18 /min University of 12:39:00 [facility] [place] Branch Oxygen saturation 2022-03-07 98 /min University of in Arterial blood 12:39:00 [facility] rogers by Pulse oximetry Branch Body height 2022-03-07 175.3 cm University of 03:34:00 [facility] Body weight 2022-03-07 68.04 kg University of 03:34:00 [facility] BMI 2022-03-07 22.15 kg/m2 University of 03:34:00 [facility] [place] Branch Systolic blood 2021-03-03 109 mm[Hg] University of pressure 16:44:00 [facility] [place] Branch Diastolic blood 2021-03-03 81 mm[Hg] University o f pressure 16:44:00 [facility] [place] Branch Heart rate 2021-03-03 85 /min University of 16:44:00 [facility] Body temperature 2021-03-03 36.33 Elisha University of 16:44:00 [facility] [place] Branch Respiratory rate 2021-03-03 16 /min University of 16:44:00 [facility] [place] Branch Oxygen saturation 2021-03-03 93 /min University of in Arterial blood 16:44:00 [place] Medi rogers by Pulse oximetry Branch Body weight 2021-03-03 77.384 kg [facility] 09:09:00 [facility] BMI 2021-03-03 25.19 kg/m2 [facility] 09:09:00 [facility] Body height 2021-03-01 175.3 cm Simultaneous [facility] 18:25:00 filing. User may [place] Medic al not have seen [place] previous data. Procedures Procedure Date / Time Performing Clinician Source Performed POCT GLUCOSE (AUTOMATED) 2022-03-09 19:52:00 Lorraine Trevizo Un iversity of [facility] POCT GLUCOSE (AUTOMATED) 2022-03-09 13:21:00 Lorraine Trevizo Un iversity of [facility] POCT GLUCOSE (AUTOMATED) 2022-03-09 07:05:00 Lorraine Trevizo Un iversity of [facility] POCT GLUCOSE (AUTOMATED) 2022-03-09 04:04:00 Lorraine Trevizo Un iversity of [facility] POCT GLUCOSE (AUTOMATED) 2022-03-09 02:25:00 Lorraine Trevizo Un iversity of [facility] POCT GLUCOSE (AUTOMATED) 2022-03-08 21:55:00 Lorraine Trevizo Un iversity of [facility] POCT GLUCOSE (AUTOMATED) 2022-03-08 21:55:00 Lorraine Trevizo Un iversity of [facility] POCT GLUCOSE (AUTOMATED) 2022-03-08 17:18:00 Lorraine Trevizo Un iversity of [facility] POCT GLUCOSE (AUTOMATED) 2022-03-08 17:18:00 Lorraine Trevizo Un iversity of [facility] POCT GLUCOSE (AUTOMATED) 2022-03-08 12:55:00 Lorraine Trevizo Un iversity of [facility] POCT GLUCOSE (AUTOMATED) 2022-03-08 12:55:00 Lorraine Trevizo Un iversity of [facility] COMP. METABOLIC PANEL 2022-03-08 08:44:00 Jorge White [facility] ([id number]) [facility] Branch CBC WITH DIFF 2022-03-08 08:44:00 Jorge White [facility] COMP. METABOLIC PANEL 2022-03-08 08:44:00 Jorge White [facility] ([id number]) [facility] Branch CBC WITH DIFF 2022-03-08 08:44:00 Jorge White [facility] POCT GLUCOSE (AUTOMATED) 2022-03-08 05:40:00 Lorraine Trevizo Un iversity of [facility] POCT GLUCOSE (AUTOMATED) 2022-03-08 05:40:00 Lorraine Trevizo Un iversity of [facility] POCT GLUCOSE (AUTOMATED) 2022-03-08 02:17:00 Lorraine Trevizo Un iversity of [facility] POCT GLUCOSE (AUTOMATED) 2022-03-08 02:17:00 Lorraine Trevizo Un iversity of [facility] POCT GLUCOSE (AUTOMATED) 2022-03-07 23:06:00 Lorraine Trevizo Un iversity of [facility] POCT GLUCOSE (AUTOMATED) 2022-03-07 23:06:00 Lorraine Trevizo Un iversity of [facility] POCT GLUCOSE (AUTOMATED) 2022-03-07 22:13:00 Lorraine Trevizo Un iversity of [facility] POCT GLUCOSE (AUTOMATED) 2022-03-07 22:13:00 Lorraine Trevizo Un iversity of [facility] XR PELVIS <3 VW 2022-03-07 19:15:15 [facility] XR PELVIS <3 VW 2022-03-07 19:15:15 Leonor Velasquez [facility] INTUBATION 2022-03-07 14:50:00 Gareth Galeana [facility] HIP HEMIARTHROPLASTY 2022-03-07 14:26:00 [facility] 2022-03-07 14:26:00 [facility] POCT GLUCOSE (AUTOMATED) 2022-03-07 12:41:00 [facility]ATED) 2022-03-07 12:41:00 [facility] URINE DRUG (IMMUNOASSAY) - 2022-03-07 10:21:00 Jorge White [facility] COMPREHENSIVE DRUG SCREEN Medica l Branch URINALYSIS 2022-03-07 10:21:00 Jorge White [facility] SODIUM, URINE RANDOM 2022-03-07 10:21:00 Jorge White [facility] PROTEIN CREAT RATIO URINE 2022-03-07 10:21:00 [facility] (IMMUNOASSAY[facility] - 2022-03-07 10:21:00 Jorge White [facility] DRUG SCREEN Medica l Branch URINALYSIS 2022-03-07 10:21:00 Jorge White [facility] SODIUM, URINE RANDOM 2022-03-07 10:21:00 Jorge White [facility] PROTEIN CREAT RATIO URINE 2022-03-07 10:21:00 Jorge White [facility] URINE CULTURE 2022-03-07 10:20:00 Jorge White [facility] URINE CULTURE 2022-03-07 10:20:00 Jorge White [facility] POCT GLUCOSE (AUTOMATED) 2022-03-07 08:43:00 [facility]SE (AUTOMATED) 2022-03-07 08:43:00 Lorraine Trevizo Un iversity [facility] PHOSPHORUS 2022-03-07 08:26:00 Jorge White [facility] MAGNESIUM 2022-03-07 08:26:00 Jorge White [facility] COMP. METABOLIC PANEL 2022-03-07 08:26:00 Jorge White [facility] ([id number]) [facility] CBC WITH DIFF 2022-03-07 08:26:00 Jorge White [facility] PROTHROMBIN TIME / INR 2022-03-07 08:26:00 Jorge White [facility] N-TERMINAL PRO-BNP 2022-03-07 08:26:00 Jorge White [facility] PHOSPHORUS 2022-03-07 08:26:00 Jorge White [facility] MAGNESIUM 2022-03-07 08:26:00 Cindy martin [facility] COMP. METABOLIC PANEL 2022-03-07 08:26:00 Jorge White [facility] ([id number]) [facility] CBC WITH DIFF 2022-03-07 08:26:00 Cindy martin [facility] PROTHROMBIN TIME / INR 2022-03-07 08:26:00 Jorge White [facility] N-TERMINAL PRO-BNP 2022-03-07 08:26:00 Cindy martin [facility] POCT GLUCOSE (AUTOMATED) 2022-03-07 04:13:00 Lorraine Trevizo [facility] POCT GLUCOSE (AUTOMATED) 2022-03-07 04:13:00 Lorraine Trevizo [facility] XR PELVIS <3 VW 2022-03-07 02:04:37 Lorraine Trevizo [facility] XR PELVIS <3 VW 2022-03-07 02:04:37 Lorraine Trevizo [facility] XR CHEST 1 VW 2022-03-07 01:58:10 Lorraine Trevizo [facility] XR HIPS 2 VW RIGHT 2022-03-07 01:58:10 Lorraine Trevizo [facility] XR CHEST 1 VW 2022-03-07 01:58:10 Lorraine Trevizo [facility] XR HIPS 2 VW RIGHT 2022-03-07 01:58:10 Lorraine Trevizo [facility] HB ECG ROUTINE & RHYTHM 2022-03-07 01:56:57 Lorraine Trevizo [facility] HB ECG ROUTINE & RHYTHM 2022-03-07 01:56:57 Lorraine Trevizo [facility] URIC ACID 2022-03-07 01:46:00 Jorge White [facility] MAGNESIUM 2022-03-07 01:46:00 Cindy [facility] FREE T4 2022-03-07 01:46:00 Cindy [facility] COMP. METABOLIC PANEL 2022-03-07 01:46:00 Lorraine Trevizo [facility] ([id number]) Medical Branch LIPID PANEL ([id number])(TOTAL 2022-03-07 01:46:00 Jorge White [facility] CHOLESTEROL, Medical Branch TRIGLYCERIDES, HDL) ETHANOL 2022-03-07 01:46:00 Jorge White [facility] SEDIMENTATION RATE 2022-03-07 01:46:00 Cindy martin [facility] CBC WITH DIFF 2022-03-07 01:46:00 Lorraine Trevizo [facility] GLYCOSYLATED HEMOGLOBIN 2022-03-07 01:46:00 Cindy [facility] (A1C) [facility] N-TERMINAL PRO-BNP 2022-03-07 01:46:00 Cindy martin [facility] FREE T3 2022-03-07 01:46:00 Cindy [facility] URIC ACID 2022-03-07 01:46:00 Cindy [facility] MAGNESIUM 2022-03-07 01:46:00 Cindy [facility] FREE T4 2022-03-07 01:46:00 Cindy martin [facility] COMP. METABOLIC PANEL 2022-03-07 01:46:00 Lorraine Trevizo [facility] ([id number]) Medical Branch LIPID PANEL ([id number])(TOTAL 2022-03-07 01:46:00 Jorge White [facility] CHOLESTEROL, Medical Branch TRIGLYCERIDES, HDL) ETHANOL 2022-03-07 01:46:00 Cindy martin [facility] SEDIMENTATION RATE 2022-03-07 01:46:00 Jorge White [facility] CBC WITH DIFF 2022-03-07 01:46:00 Lorraine Trevizo [facility] GLYCOSYLATED HEMOGLOBIN 2022-03-07 01:46:00 Cindy martin [facility] (A1C) [facility] N-TERMINAL PRO-BNP 2022-03-07 01:46:00 Cindy martin [facility] FREE T3 2022-03-07 01:46:00 Cindy martin [facility] POCT GLUCOSE (AUTOMATED) 2022-03-07 01:45:00 [facility] POCT GLUCOSE (AUTOMATED) 2022-03-07 01:45:00 Lorraine Trevizo [facility] NOTICE OF PRIVACY 2022-03-07 01:33:58 Doctor Unassigned, [facility]ACT[facility] NOTICE OF PRIVACY 2022-03-07 01:33:58 Doctor Unassigned, [facility] PRACTICES [facility] CONSENT/REFUSAL FOR 2022-03-07 01:32:07 Doctor Unassigned, [facility] DIAGNOSIS AND TREATMENT [facility] CONSENT/REFUSAL FOR 2022-03-07 01:32:07 Doctor Unassigned, [facility] DIAGNOSIS AND TREATMENT [facility] POCT GLUCOSE (AUTOMATED) 2021-03-03 17:28:00 Matt Ford [facility] POCT GLUCOSE (AUTOMATED) 2021-03-03 13:06:00 Matt Ford [facility] BASIC METABOLIC PANEL (NA, 2021-03-03 09:15:00 Matt Ford [facility] K, CL, CO2, GLUCOSE, BUN, Medica l Branch CREATININE, CA) CBC WITH DIFF 2021-03-03 09:15:00 Matt Ford [facility] POCT GLUCOSE (AUTOMATED) 2021-03-03 03:19:00 Matt Ford [facility] POCT GLUCOSE (AUTOMATED) 2021-03-03 00:52:00 [facility] ([facility]OMATED) 2021-03-02 22:20:00 [facility] Ford [facility] POCT GLUCOSE (AUTOMATED) 2021-03-02 17:14:00 [facility] Ford [facility] PO[facility]UCOSE (AUTOMATED) 2021-03-02 12:59:00 Matt Ford [facility] FREE T4 2021-03-02 09:44:00 Logan [facility] BASIC METABOLIC PANEL (NA, 2021-03-02 09:44:00 Matt Ford [facility] K, CL, CO2, GLUCOSE, BUN, Medica l Branch CREATININE, CA) FREE T3 2021-03-02 09:44:00 Logan [facility] POCT GLUCOSE (AUTOMATED) 2021-03-02 01:03:00 Matt Ford Dotty [facility] POCT GLUCOSE (AUTOMATED) 2021-03-01 21:37:00 Matt Ford [facility] CRITICAL CARE 2021-03-01 21:20:20 Akira Winter [facility] POCT GLUCOSE (AUTOMATED) 2021-03-01 20:55:00 Matt Ford [facility] POCT GLUCOSE (AUTOMATED) 2021-03-01 18:17:00 Matt Ford [facility] POCT GLUCOSE (AUTOMATED) 2021-03-01 16:49:00 Akira [facility] HEAD WO CONTRAST 2021-03-01 16:00:12 Akira Winter [facility] MAGNESIUM 2021-03-01 15:51:00 Akira Winter [facility] THYROID STIMULATING 2021-03-01 15:51:00 [facility] HORMONE [facility] COMP. METABOLIC PANEL 2021-03-01 15:51:00 Akira Winter [facility] ([id number]) Medical Branch CBC WITH DIFF 2021-03-01 15:51:00 Akira Winter [facility] GLYCOSYLATED HEMOGLOBIN 2021-03-01 15:51:00 John Mary [facility] (A1C) Medical Branch COVID-19 (ID NOW RAPID 2021-03-01 15:51:00 Akira Wintere [facility] TESTING) Medical Branch LAB ONLY COVID 2021-03-01 15:51:00 Akira Winter [facility] INTERPRETATION [facility] HB ECG ROUTINE & RHYTHM 2021-03-01 15:45:31 Akiar Winter [facility] STRIP [facility] Branch POCT GLUCOSE (AUTOMATED) 2021-03-01 15:42:00 Akira Winter [facility] acute hospital Plan of Care Planned Activity Planned Date Details Comments Source Future Scheduled 2021-02-[address] [facility] 00:[facility]:00 (procedure) [code = Medical Center 57967199] Future Scheduled 2021-01-[address] [facility] Test 00:00:00 (Season Ended) [code = Medic al Center INFLUENZA VACCINE (Season Ended)] Future Scheduled 2020-05-[address] [facility] Test 00:00:00 (12+) [code = Medical Center DEPRESSION SCREENING (12+)] Future Scheduled 2018-08-[address] [facility] 00:[facility]00 measurement Medical Center (procedure) [code = 41565509] Future Scheduled 1993 DTAP/TDAP/TD VACCINES CH I [...] 00:00:00 examination Medical Center (regime/therapy) [code = 218080965] Future Scheduled 1984-01-26 Urine screening for [facility] Test 00:00:00 protein (procedure) Medical Center [code = 481631713] Future Scheduled 1980-01-[address] [facility] Test 00:00:00 0-64 YRS (1 of 1 - Medical C enter PPSV23) [code = PNEUMOCOCCAL VACCINE 0-64 YRS (1 of 1 - PPSV23)] Future Scheduled [address] [facility] Test 00:00:00 malignant neoplasm of Medica Center colon (procedure) [code = 733697483] Encounters Start End Encounter Admission Attending Care Care Encounter Source Date/Time Date/Time Type Type Clinicians Facility Department ID 2021-03-09 Emergency [facility] [id number] Univers 09:22:47 ity [facility] 2021-03-08 Emergency [facility] [id number] Univers 02:24:31 ity [facility] 2022-03-18 2022-03-18 Outpatient R BEN [facility] [id number] Univers 11:15:00 12:11:35 [facility] 2022-03-18 2022-03-18 [facility] [id number] Univers 11:15:00 12:11:35 Visit [facility] [id number] it y of [place] 4.2.7.2.686 Jaun as DARRYL?BLEA [id number] [address] MEDICAL OFFICE BUILDING 2022-03-10 2022-03-10 Transition BEN Rodriguez [id number] Univers 00:00:00 00:00:00 of Care Patricia TAYLOR [id number] [place] [id number] [address] 2022-03-06 2022-03-09 Inpatient X CINDY [facility] IRINEO [id number] Univers 20:34:00 15:50:00 [facility]22-03-06 2022-03-09 [facility] Lorraine Trevizo [facility] 1.2.840. 114 [id number] Univers 20:34:00 15:50:00 Encounter Jorge White [id number] ity of [place] 4.2.7.2.686 [facility] [id number] [place] [id number] Branch 2022-03-07 2022-03-07 Anesthesia Kurtsydney-M [facility] 1.2.840.114 [id number] Univers 09:41:00 12:53:00 Event RENETTA campos [id number] i ty of [place] 4.2.7.2.686 Jaun as SURGICAL [id number] [facility] 020 Branch 2022-03-07 2022-03-07 Surgery [facility] 1.2.570.014 [id number] Univers 09:30:00 12:03:00 Tor JACKSON 350.1.13.10 i ty of [place] 4.2.7.2.686 [facility] s SURGICAL [id number] [address] 2021-03-12 2021-03-12 Outpatient Gareth MALHOTRA [facility] [id number] Univers 16:30:00 16:30:00 ANDREI ity of [facility] 2021-03-01 2021-03-03 Emergency Akira Winter [facility] 1.2.840. 114 [id number] Univers 10:40:00 12:50:00 Matt Ford [id number] ity of [place] 4.2.7.2.686 [facility] [id number] [address] 2020-10-27 2020-10-27 Transition Ben Rodriguez 1.2.840.114 [id number] 00:00:00 00:00:00 of Care Patricia Taylor [id number] [place] 4.2.7.2.686 [id number] [facility] 2020-10-25 2020-10-26 Hospital Akira Winter [facility] 1.2.840.1 [id number] 16:12:00 18:10:00 Encounter Ryan Cardozo [id number] Jorge White 4.2.7.2.686 [place] [id number] 2020-08-17 2020-08-17 Outpatient R DUSTY [facility] [id number] Univers 16:01:43 23:59:00 TOR bennett [facility] 2020-08-17 2020-08-17 Office Dusty [facility] [id number] 15:25:16 16:33:28 Visit [facility] 350.1.13.10 [place] [id number] [facility] [id number] [address] Results Test Description Test Time Test Comments Results Result Comments Source POCT GLUCOSE (AUTOMATED) 2022-03-09 20:30:40 Test Item Value Reference Range Interpretation Comme nts POCT GLU (test code = 8348781238) 332 mg/dL 70-110 H Lab Interpretation (test code = 06356-1) Abnormal [facility] GLUCOSE (AUTOMATED)2022-03-09 13:23:52 Test Item Value Reference Range Interpretation Comments POCT GLU (test code = 5930371149) 373 mg/dL 70-110 H Lab Interpretation (test code = Abnormal 96836-8) [facility] GLUCOSE (AUTOMATED)2022-03-09 07:10:19 Test Item Value Reference Range Interpretation Comments POCT GLU (test code = 5196400757) 520 mg/dL 70-110 HH Lab Interpretation (test code = Abnormal 62563-9) [facility] GLUCOSE (AUTOMATED)2022-03-09 04:11:59 Test Item Value Reference Range Interpretation Comments POCT GLU (test code = 4013640412) 443 mg/dL 70-110 H Lab Interpretation (test code = Abnormal 77277-3) [facility] GLUCOSE (AUTOMATED)2022-03-09 02:28:25 Test Item Value Reference Range Interpretation Comments POCT GLU (test code = 1990868918) 438 mg/dL 70-110 H Lab Interpretation (test code = Abnormal 26801-5) [facility] GLUCOSE (AUTOMATED)2022-03-08 22:12:24 Test Item Value Reference Range Interpretation Comments POCT GLU (test code = 7185965688) 310 mg/dL 70-110 H Lab Interpretation (test code = Abnormal 67612-7) [facility] GLUCOSE (AUTOMATED)2022-03-08 22:12:24 Test Item Value Reference Range Interpretation Comments POCT GLU (test code = 1148445600) 310 mg/dL 70-110 H Lab Interpretation (test code = Abnormal 75754-8) University [facility] GLUCOSE (AUTOMATED)2022-03-08 17:21:26 Test Item Value Reference Range Interpretation Comments POCT GLU (test code = 0785189826) 411 mg/dL 70-110 H Lab Interpretation (test code = Abnormal 45336-0) University [facility] GLUCOSE (AUTOMATED)2022-03-08 17:21:26 Test Item Value Reference Range Interpretation Comments POCT GLU (test code = 0105001956) 411 mg/dL 70-110 H Lab Interpretation (test code = Abnormal 59056-3) [facility] GLUCOSE (AUTOMATED)2022-03-08 12:59:57 Test Item Value Reference Range Interpretation Comments POCT GLU (test code = 6045825121) 484 mg/dL 70-110 HH Lab Interpretation (test code = Abnormal 46894-3) [facility] GLUCOSE (AUTOMATED)2022-03-08 12:59:57 Test Item Value Reference Range Interpretation Comments POCT GLU (test code = 8314923720) 484 mg/dL 70-110 HH Lab Interpretation (test code = Abnormal 57850-1) [facility] GLUCOSE (AUTOMATED)2022-03-08 05:42:15 Test Item Value Reference Range Interpretation Comments POCT GLU (test code = 0341193368) 307 mg/dL 70-110 H Lab Interpretation (test code = Abnormal 94047-6) [facility] GLUCOSE (AUTOMATED)2022-03-08 05:42:15 Test Item Value Reference Range Interpretation Comments POCT GLU (test code = 2745375665) 307 mg/dL 70-110 H Lab Interpretation (test code = Abnormal 25083-0) [facility] GLUCOSE (AUTOMATED)2022-03-08 02:29:53 Test Item Value Reference Range Interpretation Comments POCT GLU (test code = 3310913116) 298 mg/dL 70-110 H Lab Interpretation (test code = Abnormal 68506-5) [facility] GLUCOSE (AUTOMATED)2022-03-08 02:29:53 Test Item Value Reference Range Interpretation Comments POCT GLU (test code = 3433113967) 298 mg/dL 70-110 H Lab Interpretation (test code = Abnormal 23086-0) [facility] GLUCOSE (AUTOMATED)2022-03-07 23:10:06 Test Item Value Reference Range Interpretation Comments POCT GLU (test code = 8519955982) 356 mg/dL 70-110 H Lab Interpretation (test code = Abnormal 45295-2) [facility] GLUCOSE (AUTOMATED)2022-03-07 23:10:06 Test Item Value Reference Range Interpretation Comments POCT GLU (test code = 9363334453) 356 mg/dL 70-110 H Lab Interpretation (test code = Abnormal 18574-7) [facility] GLUCOSE (AUTOMATED)2022-03-07 22:18:04 Test Item Value Reference Range Interpretation Comments POCT GLU (test code = 4047016647) 374 mg/dL 70-110 H Lab Interpretation (test code = Abnormal 54102-1) [facility] GLUCOSE (AUTOMATED)2022-03-07 22:18:04 Test Item Value Reference Range Interpretation Comments POCT GLU (test code = 8239696171) 374 mg/dL 70-110 H Lab Interpretation (test code = Abnormal 48605-4) [facility] GLUCOSE (AUTOMATED)2022-03-07 17:34:08 Test Item Value Reference Range Interpretation Comments POCT GLU (test code = 4263894776) 383 mg/dL 70-110 H Lab Interpretation (test code = Abnormal 90987-7) [facility] GLUCOSE (AUTOMATED)2022-03-07 17:34:08 Test Item Value Reference Range Interpretation Comments POCT GLU (test code = 4746002435) 383 mg/dL 70-110 H Lab Interpretation (test code = Abnormal 57873-6) [facility] GLUCOSE (AUTOMATED)2022-03-07 08:46:10 Test Item Value Reference Range Interpretation Comments POCT GLU (test code = 5527336066) 229 mg/dL 70-110 H Lab Interpretation (test code = Abnormal 56523-5) [facility] GLUCOSE (AUTOMATED)2022-03-07 08:46:10 Test Item Value Reference Range Interpretation Comments POCT GLU (test code = 0801188140) 229 mg/dL 70-110 H Lab Interpretation (test code = Abnormal 30455-7) [facility] [id number] 08:20:29 Test Item Value Reference Range Interpretation Comments ESR (test code = 85694-1) See_Comment [ Automated message] The system [employer] generated this result transmitted ref erence range: 0 - 10 m m/HR. The reference r ambrosio was not used to interpret this result as normal/abnor mal. Lab Interpretation (test Normal code = 75605-9) [facility] [id number] 08:20:29 Test Item Value Reference Range Interpretation Comments ESR (test code = 43164-3) See_Comment [ Automated message] The system [employer] generated this result transmitted ref erence range: 0 - 10 m m/HR. The reference r ambrosio was not used to interpret this result as normal/abnor mal. Lab Interpretation (test Normal code = 46015-8) [facility]2022-03-07 08:17:03 Test Item Value Reference Range Interpretation Comments HGB A1C (test code = 7.6 % 4.0-5.7 H 4548-4) CLIFF (test code = CLIFF) Reference RangesNormal: <5.7%Prediabetes: 5.7 - 6.4%Diabetes: > 6.5% Lab Interpretation (test Abnormal code = 31514-5) [facility]C)2022-03-07 08:17:03 Test Item Value Reference Range Interpretation Comments HGB A1C (test code = 7.6 % 4.0-5.7 H 4548-4) CLIFF (test code = CLIFF) Reference RangesNormal: <5.7%Prediabetes: 5.7 - 6.4%Diabetes: > 6.5% Lab Interpretation (test Abnormal code = 37347-1) [facility] (19198)(TOTAL CHOLESTEROL, TRIGLYCERIDES, HDL)2022-03-07 07:33:05 Test Item Value Reference Range Interpretation Comments CHOL (test code = 250 mg/dL 120-200 H 3648379918) HDL (test code = 55 mg/dL See_Comment [Automated message] 3374040906) The system [employer] generated this result transmit neo reference range : >=40. The refer ence range was not u sed to interpret th is result as normal/abnormal . HDLC RATIO (test code = See_Comment [Au tomated message] 3177389789) The system [employer] generated this result transmit neo reference range : <=5.0. The refe rence range was not u sed to interpret th is result as normal/abnormal . TRIG (test code = 171 mg/dL 30-170 H 2224346903) LDL CHOL (test code = 161 mg/dL See_Comment H [Auto mated message] 00861-9) The system [employer] generated this result transmit neo reference range : <=160. The refe rence range was not u sed to interpret th is result as normal/abnormal . VLDL (test code = 34 mg/dL 5-60 4336238145) Lab Interpretation (test Abnormal code = 18864-4) [facility] (06716)(TOTAL CHOLESTEROL, TRIGLYCERIDES, HDL)2022-03-07 07:33:05 Test Item Value Reference Range Interpretation Comments CHOL (test code = 250 mg/dL 120-200 H 4970912069) HDL (test code = 55 mg/dL See_Comment [Automated message] 2598574566) The system [employer] generated this result transmit neo reference range : >=40. The refer ence range was not u sed to interpret th is result as normal/abnormal . HDLC RATIO (test code = See_Comment [Au tomated message] 7243572205) The system [employer] generated this result transmit neo reference range : <=5.0. The refe rence range was not u sed to interpret th is result as normal/abnormal . TRIG (test code = 171 mg/dL 30-170 H 9281937759) LDL CHOL (test code = 161 mg/dL See_Comment H [Auto mated message] 82765-8) The system [employer] generated this result transmit neo reference range : <=160. The refe rence range was not u sed to interpret th is result as normal/abnormal . VLDL (test code = 34 mg/dL 5-60 0424303740) Lab Interpretation (test Abnormal code = 72585-4) [facility] 07:31:45 Test Item Value Reference Range Interpretation Comments FREE T4 (test code = See_Comment [Autom ated message] 5809038483) The system [employer] generated this result transmitted ref erence range: 0.78 - 2 .20 ng/dL:. The ref erence range was not u sed to interpret this result as normal/abnor mal. Lab Interpretation (test Normal code = 25089-0) [facility] 07:31:45 Test Item Value Reference Range Interpretation Comments FREE T4 (test code = See_Comment [Autom ated message] 2543609119) The system [employer] generated this result transmitted ref erence range: 0.78 - 2 .20 ng/dL:. The ref erence range was not u sed to interpret this result as normal/abnor mal. Lab Interpretation (test Normal code = 36065-0) [facility] 07:31:25 Test Item Value Reference Range Interpretation Comments FREE T3 (test code = 7602690028) 3.54 pg/mL 2.77-5.27 Lab Interpretation (test code = Normal 55508-8) [facility] 07:31:25 Test Item Value Reference Range Interpretation Comments FREE T3 (test code = 2012042652) 3.54 pg/mL 2.77-5.27 Lab Interpretation (test code = Normal 90657-4) [facility] [id number] 07:23:24 Test Item Value Reference Range Interpretation Comments NT-proBNP (test code 107 pg/mL See_Comment [Autom ated = 4172667143) message] The system which generated this result transmitted reference range : <=125. The reference range was not used to interpret this result as normal/abnormal . CLIFF (test code = CLIFF) Biotin has been reported to cause a negative bias, interpret results relative to patient's use of biotin. Lab Interpretation Normal (test code = 14178-8) [id number] 07:23:24 Test Item Value Reference Range Interpretation Comments NT-proBNP (test code 107 pg/mL See_Comment [Autom ated = 8350139345) message] The system which generated this result transmitted reference range : <=125. The reference range was not used to interpret this result as normal/abnormal . CLIFF (test code = CLIFF) Biotin has been reported to cause a negative bias, interpret results relative to patient's use of biotin. Lab Interpretation Normal (test code = 11809-0) [facility] Test Item Value Reference Range Interpretation Comments MAGNESIUM (test code = 1896475454) 2.0 mg/dL 1.7-2.4 Lab Interpretation (test code = Normal 67649-2) [facility] Test Item Value Reference Range Interpretation Comments MAGNESIUM (test code = 5155556575) 2.0 mg/dL 1.7-2.4 Lab Interpretation (test code = Normal 33059-3) [facility]2022-10-31 07:13:48 Test Item Value Reference Range Interpretation Comments ALCOHOL (test code = 165 mg/dL 1221919676) CLIFF (test code = CLIFF) <10 [id number] Toxic>100 Depression of MANAGER INFORMATION>[address] [facility]2022-10-31 07:13:48 Test Item Value Reference Range Interpretation Comments ALCOHOL (test code = 165 mg/dL 8967786465) CLIFF (test code = CLIFF) <10 Qotpgsbw90-122 Toxic>100 Depression of MANAGER INFORMATION>400 [id number] 07:13:47 Test Item Value Reference Range Interpretation Comments URIC ACID (test code = 9765967193) 4.7 mg/dL 3.6-8.0 Lab Interpretation (test code = Normal 64628-4) [facility] [id number] 07:13:47 Test Item Value Reference Range Interpretation Comments URIC ACID (test code = 4274500254) 4.7 mg/dL 3.6-8.0 Lab Interpretation (test code = Normal 74475-0) [facility] GLUCOSE (AUTOMATED)2022-03-07 04:16:37 Test Item Value Reference Range Interpretation Comments POCT GLU (test code = 6342964595) 113 mg/dL 70-110 H Lab Interpretation (test code = Abnormal 34844-4) [facility] GLUCOSE (AUTOMATED)2022-03-07 04:16:37 Test Item Value Reference Range Interpretation Comments POCT GLU (test code = 8318318489) 113 mg/dL 70-110 H Lab Interpretation (test code = Abnormal 04959-7) [facility]. METABOLIC PANEL (62653)2022-03-07 02:43:33 Test Item Value Reference Range Interpretation Comments NA (test code = 139 mmol/L 135-145 1764584757) K (test code = 4.2 mmol/L 3.5-5.0 Slight 0641765381) hemolysis CL (test code = 101 mmol/L 98-108 7940036443) CO2 TOTAL (test code 28 mmol/L 23-31 = 4291704798) AGAP (test code = 2-16 5516122047) BUN (test code = 12 mg/dL 7-23 Slight 4737303172) hemolysis GLUCOSE (test code = 53 mg/dL 70-110 L 9016926599) CREATININE (test code 1.05 mg/dL 0.60-1.25 = 0990045165) TOTAL BILI (test code 0.7 mg/dL 0.1-1.1 = 2924812270) CALCIUM (test code = 8.7 mg/dL 8.6-10.6 6237262963) T PROTEIN (test code 7.7 g/dL 6.3-8.2 = 4201524949) ALBUMIN (test code = 4.3 g/dL 3.5-5.0 5511013671) ALK PHOS (test code = 102 U/L 34-122 Slight 6065711647) hemolysis ALTv (test code = 20 U/L 5-50 1742-6) AST(SGOT) (test code 39 U/L 13-40 Slight = 2201282059) hemolysis eGFR (test code = mL/min/1.73m2 8869477867) CLIFF (test code = CLIFF) Association of [...] tests). Lab Interpretation Abnormal (test code = 86292-3) [facility] (76984)2022-03-07 02:43:33 Test Item Value Reference Range Interpretation Comments NA (test code = 139 mmol/L 135-145 8542755857) K (test code = 4.2 mmol/L 3.5-5.0 Slight 7925942045) hemolysis CL (test code = 101 mmol/L 98-108 1428111391) CO2 TOTAL (test code 28 mmol/L 23-31 = 0338508563) AGAP (test code = 2-16 7844683320) BUN (test code = 12 mg/dL 7-23 Slight 9488126723) hemolysis GLUCOSE (test code = 53 mg/dL 70-110 L 0867331974) CREATININE (test code 1.05 mg/dL 0.60-1.25 = 9444133552) TOTAL BILI (test code 0.7 mg/dL 0.1-1.1 = 9106164771) CALCIUM (test code = 8.7 mg/dL 8.6-10.6 4227938080) T PROTEIN (test code 7.7 g/dL 6.3-8.2 = 0026653720) ALBUMIN (test code = 4.3 g/dL 3.5-5.0 0676267888) ALK PHOS (test code = 102 U/L 34-122 Slight 0260570308) hemolysis ALTv (test code = 20 U/L 5-50 1742-6) AST(SGOT) (test code 39 U/L 13-40 Slight = 5844160072) hemolysis eGFR (test code = mL/min/1.73m2 0582658425) CLIFF (test code = CLIFF) Association of [...] tests). Lab Interpretation Abnormal (test code = 36643-6) [facility] WITH [id number] 02:10:35 Test Item Value Reference Range Interpretation [...] RDW-SD (test code = 42.8 fL 38.5-51.6 38260-6) RDW-CV (test code = 13.7 % 12.1-15.4 788-0) PLT (test code = See_Comment H [Automated 777-3) message] The sy stem which generated this result transmitted reference range : 150 - 328 10*3/ ?L. The reference r ambrosio was not used to interpret this result as normal/abnormal . MPV (test code = 9.6 fL 9.8-13.0 L 29002-8) NRBC/100 WBC (test See_Comment [Automat ed code = 1279213576) message] The system which generated this result transmitted reference range : 0.0 - 10.0 /100 WBCs. The refer ence range was not u sed to interpret th is result as normal/abnormal . NRBC x10^3 (test code See_Comment [Auto mated = 9952793853) message] The s ystem which generated this result transmitted reference range : 10*3/?L. The reference range was not used to interpret this result as normal/abnormal . GRAN MAT (NEUT) % 71.4 % (test code = 770-8) IMM GRAN % (test code 0.50 % = 8495705154) LYMPH % (test code = 19.8 % 736-9) MONO % (test code = 6.0 % 5905-5) EOS % (test code = 1.7 % 713-8) BASO % (test code = 0.6 % 706-2) GRAN MAT x10^3(ANC) 8.52 10*3/uL 1.99-6.95 H (test code = 0216391843) IMM GRAN x10^3 (test 0.06 10*3/uL 0.00-0.06 code = 1290888427) LYMPH x10^3 (test code 2.36 10*3/uL 1.09-3.23 = 731-0) MONO x10^3 (test code 0.72 10*3/uL 0.36-1.02 = 742-7) EOS x10^3 (test code = 0.20 10*3/uL 0.06-0.53 711-2) BASO x10^3 (test code 0.07 10*3/uL 0.01-0.09 = 704-7) Lab Interpretation Abnormal (test code = 40421-5) [facility] WITH [id number] 02:10:35 Test Item Value Reference Range Interpretation [...] RDW-SD (test code = 42.8 fL 38.5-51.6 84144-9) RDW-CV (test code = 13.7 % 12.1-15.4 788-0) PLT (test code = See_Comment H [Automated 777-3) message] The sy stem which generated this result transmitted reference range : 150 - 328 10*3/ ?L. The reference r ambrosio was not used to interpret this result as normal/abnormal . MPV (test code = 9.6 fL 9.8-13.0 L 84994-1) NRBC/100 WBC (test See_Comment [Automat ed code = 5927335375) message] The system which generated this result transmitted reference range : 0.0 - 10.0 /100 WBCs. The refer ence range was not u sed to interpret th is result as normal/abnormal . NRBC x10^3 (test code See_Comment [Auto mated = 5646537290) message] The s ystem which generated this result transmitted reference range : 10*3/?L. The reference range was not used to interpret this result as normal/abnormal . GRAN MAT (NEUT) % 71.4 % (test code = 770-8) IMM GRAN % (test code 0.50 % = 2605049358) LYMPH % (test code = 19.8 % 736-9) MONO % (test code = 6.0 % 5905-5) EOS % (test code = 1.7 % 713-8) BASO % (test code = 0.6 % 706-2) GRAN MAT x10^3(ANC) 8.52 10*3/uL 1.99-6.95 H (test code = 6029502181) IMM GRAN x10^3 (test 0.06 10*3/uL 0.00-0.06 code = 2530811454) LYMPH x10^3 (test code 2.36 10*3/uL 1.09-3.23 = 731-0) MONO x10^3 (test code 0.72 10*3/uL 0.36-1.02 = 742-7) EOS x10^3 (test code = 0.20 10*3/uL 0.06-0.53 711-2) BASO x10^3 (test code 0.07 10*3/uL 0.01-0.09 = 704-7) Lab Interpretation Abnormal (test code = 28322-4) [facility] GLUCOSE (AUTOMATED)2022-03-07 01:47:49 Test Item Value Reference Range Interpretation Comments POCT GLU (test code = 3973330770) 65 mg/dL 70-110 L Lab Interpretation (test code = Abnormal 37377-1) [facility] GLUCOSE (AUTOMATED)2022-03-07 01:47:49 Test Item Value Reference Range Interpretation Comments POCT GLU (test code = 6554705473) 65 mg/dL 70-110 L Lab Interpretation (test code = Abnormal 19332-8) [facility] GLUCOSE (AUTOMATED)2021-03-03 17:40:06 Test Item Value Reference Range Interpretation Comments POCT GLU (test code = 6601763561) 322 mg/dL 70-110 H Lab Interpretation (test code = Abnormal 64275-3) [facility] GLUCOSE (AUTOMATED)2021-03-03 13:09:15 Test Item Value Reference Range Interpretation Comments POCT GLU (test code = 8578723061) 316 mg/dL 70-110 H Lab Interpretation (test code = Abnormal 94603-6) [facility] METABOLIC PANEL (NA, K, CL, CO2, GLUCOSE, BUN, CREATININE, CA)2021-03-03 11:38:31 Test Item Value Reference Range Interpretation Comments NA (test code = 132 mmol/L 135-145 L 0538252893) K (test code = 4.9 mmol/L 3.5-5.0 0082362411) CL (test code = 101 mmol/L 98-108 7636751112) CO2 TOTAL (test code = 27 mmol/L 23-31 4838642127) AGAP (test code = 2-16 2684453511) BUN (test code = 19 mg/dL 7-23 2299567393) GLUCOSE (test code = 318 mg/dL 70-110 H 4306859795) CREATININE (test code = 0.88 mg/dL 0.60-1.25 1738220314) CALCIUM (test code = 9.4 mg/dL 8.6-10.6 0202616995) eGFR (test code = mL/min/1.73m2 9122015944) CLIFF (test code = CLIFF) Association of [...] tests). Lab Interpretation Abnormal (test code = 95794-5) [facility] WITH [id number] 10:44:26 Test Item Value Reference Range Interpretation Comments WBC (test code = See_Comment [Automated 7658-2) message] The sy stem which generated this result transmitted reference range : 4.20 - 10.70 10*3/?L. The reference range was not used to interpret this result as normal/abnormal . RBC (test code = See_Comment [Automated 096-8) message] The sy stem which generated this [...] RDW-SD (test code = 40.4 fL 38.5-51.6 01171-1) RDW-CV (test code = 12.8 % 12.1-15.4 788-0) PLT (test code = See_Comment H [Automated 777-3) message] The sy stem which generated this result transmitted reference range : 150 - 328 10*3/ ?L. The reference r ambrosio was not used to interpret this result as normal/abnormal . MPV (test code = 11.3 fL 9.8-13.0 70731-5) NRBC/100 WBC (test See_Comment [Automat ed code = 7271486971) message] The system which generated this result transmitted reference range : 0.0 - 10.0 /100 WBCs. The refer ence range was not u sed to interpret th is result as normal/abnormal . NRBC x10^3 (test code <0.01 See_Comment [Auto mated = 4145165768) message] The s ystem which generated this result transmitted reference range : 10*3/?L. The reference range was not used to interpret this result as normal/abnormal . GRAN MAT (NEUT) % 51.4 % (test code = 770-8) IMM GRAN % (test code 0.30 % = 4848844731) LYMPH % (test code = 29.5 % 736-9) MONO % (test code = 9.9 % 5905-5) EOS % (test code = 7.3 % 713-8) BASO % (test code = 1.6 % 706-2) GRAN MAT x10^3(ANC) 3.88 10*3/uL 1.99-6.95 (test code = 1876822293) IMM GRAN x10^3 (test <0.03 0.00-0.06 code = 7601159080) LYMPH x10^3 (test code 2.23 10*3/uL 1.09-3.23 = 731-0) MONO x10^3 (test code 0.75 10*3/uL 0.36-1.02 = 742-7) EOS x10^3 (test code = 0.55 10*3/uL 0.06-0.53 H 711-2) BASO x10^3 (test code 0.12 10*3/uL 0.01-0.09 H = 704-7) Lab Interpretation Abnormal (test code = 84651-8) [facility] GLUCOSE (AUTOMATED)2021-03-03 05:25:50 Test Item Value Reference Range Interpretation Comments POCT GLU (test code = 3466940721) 140 mg/dL 70-110 H Lab Interpretation (test code = Abnormal 17879-5) [facility] GLUCOSE (AUTOMATED)2021-03-03 05:25:49 Test Item Value Reference Range Interpretation Comments POCT GLU (test code = 1132108907) 129 mg/dL 70-110 H Lab Interpretation (test code = Abnormal 17498-2) [facility] GLUCOSE (AUTOMATED)2021-03-02 22:33:16 Test Item Value Reference Range Interpretation Comments POCT GLU (test code = 4589441688) 205 mg/dL 70-110 H Lab Interpretation (test code = Abnormal 45787-6) [facility] GLUCOSE (AUTOMATED)2021-03-02 17:32:23 Test Item Value Reference Range Interpretation Comments POCT GLU (test code = 9699202958) 253 mg/dL 70-110 H Lab Interpretation (test code = Abnormal 32849-8) [facility] [id number] 14:39:03 Test Item Value Reference Range Interpretation Comments FREE T4 (test code = See_Comment L [Autom ated message] 3425868936) The system [employer] generated this result transmitted ref erence range: 0.78 - 2 .20 ng/dL:. The ref erence range was not u sed to interpret this result as normal/abnor mal. Lab Interpretation (test Abnormal code = 93436-5) [facility] [id number] 14:38:22 Test Item Value Reference Range Interpretation Comments FREE T3 (test code = 7227764639) 2.94 pg/mL 2.77-5.27 Lab Interpretation (test code = Normal 64802-9) [facility] GLUCOSE (AUTOMATED)2021-03-02 13:04:49 Test Item Value Reference Range Interpretation Comments POCT GLU (test code = 8387766484) 177 mg/dL 70-110 H Lab Interpretation (test code = Abnormal 49355-1) [facility] Metabolic Panel (NA, K, CL, CO2, GLUCOSE, BUN, CREATININE, CA)2021-03-02 12:10:05 Test Item Value Reference Range Interpretation Comments NA (test code = 134 mmol/L 135-145 L 5134486502) K (test code = 4.8 mmol/L 3.5-5.0 3430655036) CL (test code = 106 mmol/L 98-108 8311979980) CO2 TOTAL (test code = 24 mmol/L 23-31 2407472398) AGAP (test code = 2-16 7726106198) BUN (test code = 14 mg/dL 7-23 7442787472) GLUCOSE (test code = 201 mg/dL 70-110 H 8337533541) CREATININE (test code = 0.83 mg/dL 0.60-1.25 4579994578) CALCIUM (test code = 9.4 mg/dL 8.6-10.6 1461366227) eGFR (test code = mL/min/1.73m2 9723733856) CLIFF (test code = CLIFF) Association of [...] tests). Lab Interpretation Abnormal (test code = 17539-1) [facility] GLUCOSE (AUTOMATED)2021-03-02 04:41:03 Test Item Value Reference Range Interpretation Comments POCT GLU (test code = 9605446063) 165 mg/dL 70-110 H Lab Interpretation (test code = Abnormal 01071-7) [facility] GLUCOSE (AUTOMATED)2021-03-01 21:40:23 Test Item Value Reference Range Interpretation Comments POCT GLU (test code = 4623954457) 338 mg/dL 70-110 H Lab Interpretation (test code = Abnormal 21218-8) [facility] GLUCOSE (AUTOMATED)2021-03-01 21:15:20 Test Item Value Reference Range Interpretation Comments POCT GLU (test code = 7221785712) 308 mg/dL 70-110 H Lab Interpretation (test code = Abnormal 50177-3) [facility] [id number] 20:59:15 Test Item Value Reference Range Interpretation Comments TSH (test code = See_Comment H [Automated message] 1122627741) The system [employer] generated this result transmitted ref erence range: 0.45 - 4 .70 mIU/L. The refe rence range was not u sed to interpret this result as normal/abnor mal. Lab Interpretation (test Abnormal code = 63530-6) [facility]GLOB[facility] (A1C)2021-03-01 20:50:54 Test Item Value Reference Range Interpretation Comments HGB A1C (test code = 8.6 % 4.0-5.7 H 4548-4) CLIFF (test code = CLIFF) Reference RangesNormal: <5.7%Prediabetes: 5.7 - 6.4%Diabetes: > 6.5% Lab Interpretation (test Abnormal code = 70488-9) [facility] GLUCOSE (AUTOMATED)2021-03-01 18:26:29 Test Item Value Reference Range Interpretation Comments POCT GLU (test code = 5163131407) 177 mg/dL 70-110 H Lab Interpretation (test code = Abnormal 52058-7) [facility] GLUCOSE (AUTOMATED)2021-03-01 16:52:10 Test Item Value Reference Range Interpretation Comments POCT GLU (test code = 8785799070) 112 mg/dL 70-110 H Lab Interpretation (test code = Abnormal 81291-4) [facility] GLUCOSE (AUTOMATED)2021-03-01 16:52:10 Test Item Value Reference Range Interpretation Comments POCT GLU (test code = 5106165476) 154 mg/dL 70-110 H Lab Interpretation (test code = Abnormal 23208-3) [facility] Test Item Value Reference Range Interpretation Comments MAGNESIUM (test code = 9972397077) 1.8 mg/dL 1.7-2.4 Lab Interpretation (test code = Normal 73315-4) [facility]. METABOLIC PANEL (12025)2021-03-01 16:14:02 Test Item Value Reference Range Interpretation Comments NA (test code = 136 mmol/L 135-145 4858251481) K (test code = 4.1 mmol/L 3.5-5.0 1872771346) CL (test code = 105 mmol/L 98-108 8649210915) CO2 TOTAL (test code = 28 mmol/L 23-31 0515742316) AGAP (test code = 2-16 1142440623) BUN (test code = 14 mg/dL 7-23 4082196134) GLUCOSE (test code = 187 mg/dL 70-110 H 4446750125) CREATININE (test code = 0.85 mg/dL 0.60-1.25 7665259860) TOTAL BILI (test code = 0.6 mg/dL 0.1-1.7 5530418418) CALCIUM (test code = 9.0 mg/dL 8.6-10.6 6945520707) T PROTEIN (test code = 7.2 g/dL 6.3-8.2 2238952537) ALBUMIN (test code = 3.9 g/dL 3.5-5.0 2661861447) ALK PHOS (test code = 77 U/L 34-122 9908548906) ALTv (test code = 19 U/L 5-50 1742-6) AST(SGOT) (test code = 25 U/L 13-40 4679367900) eGFR (test code = mL/min/1.73m2 5461488529) CLIFF (test code = CLIFF) Association of [...] tests). Lab Interpretation Abnormal (test code = 74040-5) [facility] WITH [id number] 15:58:21 Test Item Value Reference Range Interpretation Comments WBC (test code = See_Comment H [Automated 1825-2) message] The sy stem which generated this [...] RDW-SD (test code = 41.1 fL 38.5-51.6 34813-3) RDW-CV (test code = 12.7 % 12.1-15.4 788-0) PLT (test code = See_Comment H [Automated 777-3) message] The sy stem which generated this result transmitted reference range : 150 - 328 10*3/ ?L. The reference r ambrosio was not used to interpret this result as normal/abnormal . MPV (test code = 9.6 fL 9.8-13.0 L 64286-8) NRBC/100 WBC (test See_Comment [Automat ed code = 3769732251) message] The system which generated this result transmitted reference range : 0.0 - 10.0 /100 WBCs. The refer ence range was not u sed to interpret th is result as normal/abnormal . NRBC x10^3 (test code <0.01 See_Comment [Auto mated = 6248145722) message] The s ystem which generated this result transmitted reference range : 10*3/?L. The reference range was not used to interpret this result as normal/abnormal . GRAN MAT (NEUT) % 57.2 % (test code = 770-8) IMM GRAN % (test code 0.50 % = 7653006084) LYMPH % (test code = 23.8 % 736-9) MONO % (test code = 8.8 % 5905-5) EOS % (test code = 8.4 % 713-8) BASO % (test code = 1.3 % 706-2) GRAN MAT x10^3(ANC) 6.36 10*3/uL 1.99-6.95 (test code = 9744800666) IMM GRAN x10^3 (test 0.05 10*3/uL 0.00-0.06 code = 7339111769) LYMPH x10^3 (test code 2.64 10*3/uL 1.09-3.23 = 731-0) MONO x10^3 (test code 0.98 10*3/uL 0.36-1.02 = 742-7) EOS x10^3 (test code = 0.93 10*3/uL 0.06-0.53 H 711-2) BASO x10^3 (test code 0.14 10*3/uL 0.01-0.09 H = 704-7) Lab Interpretation Abnormal (test code = 34026-2) [facility] [id number] 06:00:00 Test Item Value Reference Range Interpretation Comments CULTURE (BEAKER) (test No growth in 5 days code = 1095) URINE [id number] 10:25:00 Test Item Value Reference Range Interpretation Comments CULTURE (BEAKER) (test code = 1095) No growth POCT-GLUCOSE [id number] 17:10:00 Test Item Value Reference Range Interpretation Comments POC-GLUCOSE METER 232 mg/dL 70-110 H TESTED AT [facility] 67[address] (BEAKER) (test code = [place] 1538) [address] CT, CTANGIO [id number] 16:41:00CTV pleaseFINAL REPORT CTV brain 02/13/2018 4:35 [...] [place] Verified Date/Time: 02/13/2018 16:41:24 Reading Location: [facility] Radiology Reading Room -GLUCOSE [id number] 13:07:00 Test Item Value Reference Range Interpretation Comments POC-GLUCOSE METER 311 mg/dL 70-110 H Notified R Ivonne [facility]ED [facility] (test code = AT [place] [address]) [place] [address] 0 IRON, TIBC, % SAT. (WITHOUT FERRITIN)2018-02-13 10:10:00 Test Item Value Reference Range Interpretation Comments IRON (BEAKER) (test code = 547) 49 ug/dL 40-160 TOTAL IRON BINDING CAPACITY 231 ug/dL 250-450 L (BEAKER) (test code = 769) IRON % SATURATION (2) (BEAKER) 21 % 20-55 (test code = 2590) POCT-GLUCOSE [id number] 08:50:00 Test Item Value Reference Range Interpretation Comments POC-GLUCOSE METER 348 mg/dL 70-110 H Notified R Ivonne MUÑOZ/TESTED (BEAKER) (test code = AT [place] 898568) [place] [address] 0 BASIC METABOLIC [id number] 08:31:00 Test Item Value Reference Range Interpretation [...] NOT APPLICABLE FOR DIALYSIS PATIEN TS. LIPID [id number] 08:31:00 Test Item Value Reference Range Interpretation [...] 130-159 High 160-189 Very High >=190IMMATURE RETICULOCYTE [id number] 08:16:00 Test Item Value Reference Range Interpretation Comments IMMATURE RETIC FRACTION (BEAKER) 8.600 % 2.300-13.400 (test code = 1447) RETICULOCYTE COUNT PCT (BEAKER) (test 1.4 % 0.5-1.8 code = 575) CBC W/PLT COUNT & AUTO [id number] 08:16:00 Test Item Value Reference Range Interpretation [...] PERCENT (BEAKER) (test code = 2801) POCT-GLUCOSE [id number] 21:18:00 Test Item Value Reference Range Interpretation Comments POC-GLUCOSE METER 226 mg/dL 70-110 H TESTED AT [facility] [address] (BEAKER) (test code = [place]) [address] MR, BRAIN, WITHOUT [id number] 19:43:00FINAL REPORT MRI brain without contrast INDICATION: [...] thrombus cannot be excluded. The major proximal [place] flow voids are maintained. Mild [...] Consider ENT follow up. Signed: [facility] Verified Date/Time: 02/12/2018 19:43:32 Reading Location: [facility] Radiology Reading Room -GLUCOSE [id number] 19:01:00 Test Item Value Reference Range Interpretation Comments POC-GLUCOSE METER 362 mg/dL 70-110 H TESTED AT [facility] [address] (BEAKER) (test code = [place]) [address] EEG AWAKE AND [id number] 17:46:00Reason for exam:->SeizureShould this be performed at the bedside?->YesCH[facility] EEG REPORTDATE OF TEST: [id number] OF REPORT: [id number]: [id number]: 18-1889Start time: 14:04Stop time: 14:24ICD-10: R56.9CPT Code: 13908XSZIBGX: 40 y old 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, [...] of this report.Queenie Loco MD, PhDClinical Neurophysiology/Epilepsy [facility] POCT-GLUCOSE [id number] 15:33:00 Test Item Value Reference Range Interpretation Comments POC-GLUCOSE METER 213 mg/dL 70-110 H TESTED AT [facility] (test code = [place] [facility]) [address] TSH/FREE T4 IF [id number] 09:35:00 Test Item Value Reference Range Interpretation Comments THYROID STIMULATING HORMONE 4.03 uIU/mL 0.35-4.94 (BEAKER) (test code = 772) HEMOGLOBIN [id number] 08:47:00 Test Item Value Reference Range Interpretation Comments HEMOGLOBIN A1C (BEAKER) (test code = 6.5 % 4.3-6.1 H 368) POCT-GLUCOSE [id number] 07:55:00 Test Item Value Reference Range Interpretation Comments POC-GLUCOSE METER 219 mg/dL 70-110 H TESTED AT [facility] 6720 (BEAKER) (test code = [place] 1538) [address] [id number] 05:00:00 Test Item Value Reference Range Interpretation Comments MAGNESIUM (BEAKER) (test code = 2.1 mg/dL 1.6-2.6 627) BASIC METABOLIC [id number] 05:00:00 Test Item Value Reference Range Interpretation [...] PATIEN TS. CBC W/PLT COUNT & AUTO [id number] 04:40:00 Test Item Value Reference Range Interpretation [...] PERCENT (BEAKER) (test code = 2801) POCT-GLUCOSE [id number] 04:31:00 Test Item Value Reference Range Interpretation Comments POC-GLUCOSE METER 183 mg/dL 70-110 H TESTED AT [facility] [address] ([facility]) (test code = CESAR Servin [facility] 1538) [id number] RAD, ABDOMEN/KUB, 1 VIEW [id number] 01:33:00Reason for exam:->Abdominal distension, obtundationFINAL REPORT CLINICAL [...] calcification in the pelvis. Signed: Wilfredo De Leonort Verified Date/Time: 02/12/2018 01:33:19 Reading Location: [address] Transitional Reading Room POCT-GLUCOSE METER 2018-02-12 00:49:00 Test Item Value Reference Range Interpretation Comments POC-GLUCOSE METER 346 mg/dL 70-110 H TESTED AT [place] [address] ([facility]) (test code = CESAR Servin [facility] 1538) [address] CBC W/PLT COUNT & AUTO [id number] 00:44:00 Test Item Value Reference Range Interpretation Comments WHITE BLOOD CELL COUNT ([facility]) 14.3 K/ L 3.5-10.5 H (test code = 775) RED BLOOD CELL COUNT ([facility]) 4.26 M/ L 4.63-6.08 L (test code = 761) HEMOGLOBIN (BEAKER) (test code = 13.8 GM/DL 13.7-17.5 410) HEMATOCRIT (AKER) (test code = 42.1 % 40.1-51.0 411) [...] (test code = 2801) RAPID DRUG SCREEN, [id number] 00:35:00 Test Item Value Reference Range Interpretation [...] unconfirmed qualitative test result for the clinical managementof patients in emergency situations. Chain of custody not maintained. Some drai-ifj-vikyxwi medications, as well as adulterants, may cause inaccurate results. Clinical correlation should be applied. A more comprehensive drug screen or confirmation of a detected drug may be performed upon request.TROPONIN [id number] 00:15:00 Test Item Value Reference Range Interpretation [...] acute neurological disease, and persistent tachyarrhythmia.COMPREHENSIVE METABOLIC [id number] 00:09:00 Test Item Value Reference Range Interpretation [...] APPLICABLE FOR DIALYSIS PATIEN TS. URINALYSIS W/ [id number] 00:06:00 Test Item Value Reference Range Interpretation [...] = Rare 1574) SOURCE(BEAKER) (test code = 9115) RAD, CHEST, 1 VIEW, NON [id number] 23:11:00Reason for exam:->Obtundation with coarse respirations, baselineShould this be performed at the [facility]?->YesFINAL REPORT RAD, CHEST, 1 VIEW, NON DEPT INDICATION: Obtundation with coarse respirations, baseline COMPARISON: None. FINDINGS: Portable frontal view of the chest. IMPRESSION: Support Lines: None. Lungs and pleura: Clear lungs. No pneumothorax.Heart and mediastinum: Unremarkable.Additional findings: Fluid and gaseous distention of the gastric lumen. Signed: JR Lozano Robert MDReport Verified Date/Time: 02/11/2018 23:11:04 Reading Location: [address] Reading Room "
[2022-04-13] MEDS ORDERED: NA CHLORIDE 0.9% 1,000 ML ONE ×2 (04:48→06:36)
[2022-04-13] MEDS ORDERED: CEFTRIAXONE 1000 MG/VIAL ONE (04:48)
[2022-04-13 04:58] LABS: Absolute Lymphocytes (CBC) 1.9 K/uL (0.7-4.9); Hematocrit 42.8 % (39.6-49.0); MPV 7.9 fL (7.6-11.3); RBC Red Blood Cell Count 4.75 M/uL (4.33-5.43)
[2022-04-13 05:11] LABS: Protime INR 1.04
[2022-04-13 05:23] LABS: ALT/SGPT 15 U/L (12-78); AST/SGOT 19 U/L (15-37); Albumin 2.6 g/dL (3.4-5.0); Alkaline Phosphatase 164 U/L (45-117); BUN Blood Urea Nitrogen 4 mg/dL (7-18); Bicarbonate 26 mmol/L (21-32); Bilirubin Direct 0.1 mg/dL (0-0.2); Bilirubin Total 0.6 mg/dL (0.2-1.0); Glomerular Filtration Rate 86 ml/min (=/>90); Lipase 46 U/L (73-393); Magnesium 1.8 mg/dL (1.8-2.4); NT PRO-BNP 13905 pg/mL (<125); Potassium 4.1 mmol/L (3.5-5.1); Protein, Total 7.1 g/dL (6.4-8.2); Sodium Level 137 mmol/L (136-145)
[2022-04-13 05:25] LABS: Glucose Level 427 mg/dL (74-106); Troponin High Sensitivity 3848.7 pg/mL (<58.9)
[2022-04-13 05:32] LABS: Urine Blood 2+ (Negative); Urine Glucose 2+ (Negative); Urine Protein 2+ (Negative); Urine Specific Gravity 1.015 (1.005-1.030); Urine pH 6.5 (5.0-7.0)
[2022-04-13 05:54] LABS: Barbiturates NEGATIVE (NEGATIVE); Benzodiazepines NEGATIVE (NEGATIVE); Cocaine POSITIVE (NEGATIVE); METHAMPHETAM NEGATIVE (NEGATIVE); Methadone NEGATIVE (NEGATIVE); Opiates NEGATIVE (NEGATIVE); Phencyclidine NEGATIVE (NEGATIVE); THC Cannibis NEGATIVE (NEGATIVE)
--- NOTE | 2022-04-13 05:57 | EDPHYS ---
Physician Documentation [facility] Name: Surjit Stubbs Age: 47 yrs Sex: Male : 1975 Arrival Date: 04/13/2022 Time: 04:24 Bed 4 Private MD: ED Physician Jame Vaughan HPI: 04/13 04:33 This 47 yrs old Male presents to ER via Unassigned with complaints of zarina UNRESPONSIVE, DRUGS. 04:33 The patient presents to the emergency department after a known overdose, a result of [facility] recreational substance abuse. Context: Method: the patient has a confirmed or suspected ingestion, of alcohol, UNK DRUGS. Associated signs and symptoms: Pertinent positives:. Severity of symptoms: At their worst the symptoms were moderate in the emergency department the symptoms are unchanged. The patient presents with confusion, decreased responsiveness, trouble concentrating. Onset: The symptoms/episode began/occurred at an unknown time. Possible causes: drug use, alcohol, head injury, low blood sugar, seizure, sepsis. The patient has experienced syncope. Onset: The symptoms/episode began/occurred just prior to arrival. Duration: The patient has had multiple episodes, that last an unknown period of time. Associated signs and symptoms: Pertinent positives: confusion, gait abnormality. Historical: - Allergies: 09:43 tramadol; mb9 - PMHx: 09:43 Diabetes - IDDM; High Cholesterol; Hypothyroidism; neuropathy; Seizures; mb9 - Immunization history:: Adult Immunizations unknown. - Family history:: not pertinent. - Social history:: Smoking status: unknown. ROS: 04:35 Unable to obtain ROS due to patient being uncooperative. zarina Exam: 04:35 Constitutional: This is a well developed, well nourished patient who is awake, alert, zarina and in no acute distress. Head/Face: Normocephalic, atraumatic. Eyes: Pupils equal round and reactive to light, extra-ocular motions intact. Lids and lashes normal. Conjunctiva and sclera are non-icteric and not injected. Cornea within normal limits. Periorbital areas with no swelling, redness, or edema. ENT: Nares patent. No nasal discharge, no septal abnormalities noted. Tympanic membranes are normal and external auditory canals are clear. Oropharynx with no redness, swelling, or masses, exudates, or evidence of obstruction, uvula midline. Mucous membranes moist. Neck: Trachea midline, no thyromegaly or masses palpated, and no cervical lymphadenopathy. Supple, full range of motion without nuchal rigidity, or vertebral point tenderness. No Meningismus. Chest/axilla: Normal chest wall appearance and motion. Nontender with no deformity. No lesions are appreciated. Cardiovascular: Regular rate and rhythm with a normal S1 and S2. No gallops, murmurs, or rubs. Normal PMI, no JVD. No pulse deficits. Respiratory: Lungs have equal breath sounds bilaterally, clear to auscultation and percussion. No rales, rhonchi or wheezes noted. No increased work of breathing, no retractions or nasal flaring. Abdomen/GI: Soft, non-tender, with normal bowel sounds. No distension or tympany. No guarding or rebound. No evidence of tenderness throughout. Back: No spinal tenderness. No costovertebral tenderness. Full range of motion. Male : Normal genitalia with no discharge or lesions. Neuro: Awake and alert, GCS 15, oriented to person, place, time, and situation. Cranial nerves II-XII grossly intact. Motor strength 5/5 in all extremities. Sensory grossly intact. Cerebellar exam normal. Normal gait. Psych: Awake, alert, with orientation to person, place and time. Behavior, mood, and affect are within normal limits. 04:35 Skin: Appearance: Color: normal in color. 04:35 Neuro: Orientation: unable to test, Mentation: confused, Memory: unable to test, Cranial nerves: unable to test, Cerebellar function: unable to test, Motor: moves all fours, Sensation: unable to test, Gait: not tested. Deep tendon reflexes are 2+ (normal) in the bilateral brachioradialis, bicep, tricep and patellar and Achilles tendons, Babinski testing is normal, seizure activity, is not displayed by the patient. 05:47 ECG was reviewed by the Attending Physician. zarina Vital Signs: 04:43 BP 118 / 89; Pulse 92; Resp 16; Temp 98(O); Pulse Ox 98% on R/A; Pain 0/10; kl 05:30 BP 113 / 79; Pulse 95; Resp 17; Pulse Ox 100% on R/A; ll3 06:13 Weight 63.5 kg (R); mw2 06:44 BP 102 / 70; Pulse 101; Resp 18; Pulse Ox 99% on R/A; ll3 07:00 BP 92 / 65; Pulse 101; Resp 18; Pulse Ox 100% on R/A; mb9 08:15 BP 96 / 68; Pulse 102; Resp 16; Pulse Ox 98% on 2 lpm NC; mb9 09:25 BP 107 / 85; Pulse 96; Resp 16; Pulse Ox 97% on 2 lpm NC; mb9 MDM: 04:28 Patient medically screened. zarina 04:37 Differential diagnosis: polypharmacy, over medication, hypoglycemia, closed head zarina injury, intracranial hemorrhage. Differential Diagnosis: drug effect, emotional response, idiopathic syncope, seizure, transient ischemic attack, electrolyte abnormality, alcohol intoxication, hypoglycemia, overdose, pneumonia, seizure, sepsis, UTI, volume depletion. Data reviewed: vital signs, nurses notes, lab test result(s), EKG, radiologic studies, CT scan, plain films. 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 Test interpretation: by ED physician or midlevel provider: ECG, plain radiologic studies. Counseling: I had a detailed discussion with the patient and/or guardian regarding: the historical points, exam findings, and any diagnostic results supporting the discharge/admit diagnosis, lab results, radiology results. 04/13 04:31 Order name: Basic Metabolic Panel; Complete Time: 05:43 [facility] 04/13 04:31 Order name: CBC with Diff; Complete Time: 05:43 [facility] 04/13 04:31 Order name: LFT's; Complete Time: 05:43 [facility] 04/13 04:31 Order name: Magnesium; Complete Time: 05:43 [facility] 04/13 04:31 Order name: NT PRO-BNP; Complete Time: 05:43 [facility] 04/13 04:31 Order name: PT-INR; Complete Time: 05:43 [facility] 04/13 04:31 Order name: Troponin HS; Complete Time: 05:43 [facility] 04/13 04:31 Order name: Acetaminophen; Complete Time: 05:43 [facility] 04/13 04:31 Order name: ETOH Level; Complete Time: 05:43 [facility] 04/13 04:31 Order name: Ptt, Activated; Complete Time: 05:43 [facility] 04/13 04:31 Order name: Salicylate; Complete Time: 05:43 [facility] 04/13 04:31 Order name: Urine Drug Screen; Complete Time: 06:59 [facility] 04/13 04:31 Order name: Lipase; Complete Time: 05:43 [facility] 04/13 04:32 Order name: Lactate w/ 2H reflex if indic.; Complete Time: 05:43 [facility] 04/13 04:31 Order name: XRAY Chest (1 view); Complete Time: 19:05 [facility] 04/13 04:31 Order name: CT Traumagram (Head C Spine CAP wo con); Complete Time: 19:05 [facility] 04/13 04:32 Order name: Blood Culture Adult (2) [facility] 04/13 04:32 Order name: ABG [facility] 04/13 05:32 Order name: Urine Dipstick-Ancillary; Complete Time: 05:43 [facility] 04/13 05:48 Order name: SARS RAPID; Complete Time: 06:59 [facility] 04/13 11:26 Order name: Troponin High Sensitivity; Complete Time: 19:05 [facility] 04/13 11:43 Order name: Phosphorus; Complete Time: 19:05 [facility] 04/13 11:43 Order name: T4 Free; Complete Time: 19:05 [facility] 04/13 11:43 Order name: Magnesium; Complete Time: 19:05 [facility] 04/13 11:43 Order name: Thyroid Stimulating Hormone; Complete Time: 19:05 [facility] 04/13 11:53 Order name: Lactate Sepsis 2 HR Follow-up; Complete Time: 19:05 [facility] 04/13 12:11 Order name: Glucose, Ancillary Testing; Complete Time: 19:05 [facility] 04/13 17:02 Order name: Glucose, Ancillary Testing; Complete Time: 19:05 [facility] 04/13 17:44 Order name: Troponin High Sensitivity; Complete Time: 19:05 [facility] 04/13 21:24 Order name: Glucose, Ancillary Testing [facility] 04/13 04:31 Order name: EKG; Complete Time: 04:32 [facility] 04/13 04:31 Order name: Cardiac monitoring; Complete Time: 04:48 [facility] 04/13 04:31 Order name: EKG - Nurse/Tech; Complete Time: 04:56 [facility] 04/13 04:31 Order name: IV Saline Lock; Complete Time: 04:48 [facility] 04/13 04:31 Order name: Labs collected and sent; Complete Time: 04:48 [facility] 04/13 04:31 Order name: O2 Per Protocol; Complete Time: 04:48 [facility] 04/13 04:31 Order name: O2 Sat Monitoring; Complete Time: 04:48 [facility] 04/13 04:31 Order name: Urine Dipstick-Ancillary (obtain specimen); Complete Time: 05:32 [facility] 04/13 10:18 Order name: CONS Physician Consult EDMS EC:47 Rate is 90 beats/min. Rhythm is regular. QRS [place] is Normal. OR interval is normal. QRS zarina interval is normal. QT interval is normal. No Q waves. T waves are Normal. No ST changes noted. Clinical impression: NSR w/ Non-specific ST/T Changes. Interpreted by me. Reviewed by me. Administered Medications: 04:56 Drug: NS 0.9% 1000 ml Route: IV; Rate: 1 bolus; Site: right antecubital; tw5 06:43 Drug: Rocephin (cefTRIAXone) 1 grams Route: IV; Rate: per protocol; Site: left wrist; ll3 06:43 Drug: NS 0.9% 1000 ml Route: IV; Rate: 1 bolus; Site: left wrist; ll3 06:49 Drug: Insulin Regular Human 8 units {Co-Signature: ll3 (Jaylene Morgan RN).} Route: IVP; kl Site: left antecubital; 06:49 Drug: Semglee 100 unit/mL 35 units Route: Sub-Q; Site: left lower abdomen; kl 07:51 CANCELLED (Duplicate Order): Mucomyst - Acetylcysteine 600 mg PO once zarina 08:35 Drug: Zithromax (azithromycin) 500 mg Route: IVPB; Infused Over: 1 hrs; Site: left mb9 wrist; 09:34 Follow up: Response: No adverse reaction; IV Status: Completed infusion mb9 08:35 Drug: Aspirin Chewable Tablet 324 mg Route: PO; mb9 09:25 Follow up: Response: No adverse reaction mb9 08:35 Drug: Pepcid (famotidine) 20 mg Route: IVP; Site: right wrist; mb9 09:25 Follow up: Response: No adverse reaction mb9 08:54 Drug: Lovenox (enoxaparin) 60 mg Route: Sub-Q; Site: left lower abdomen; mb9 09:25 Follow up: Response: No adverse reaction mb9 Disposition Summary: 04/13/22 07:59 Hospitalization Ordered Hospitalization Status: Inpatient Admission zarina Provider: Can Devries cha Location: Telemetry/MedSurg (Inpatient) zarina Condition: Fair(04/13/22 07:59) zarina Problem: new(04/13/22 07:59) zarina Symptoms: have improved(04/13/22 07:59) zarina Bed/Room Type: Standard zarina Room Assignment: 217(04/13/22 20:49) cg Diagnosis - Weakness zarina - Type 1 diabetes mellitus with hyperglycemia(04/13/22 07:59) zarina - Alcohol abuse with intoxication(04/13/22 07:59) zarina - Altered mental status, unspecified(04/13/22 07:59) zarina - Cocaine abuse zarina - Non ST elevation ID(04/13/22 07:59) zarina - Pneumonia due to other specified bacteria - left upper lobe, patchy zarina Forms: - Medication Reconciliation Form zarina - SBAR form zarina Signatures: Dispatcher [employer] EDMS Kiya oK RN RN kl Anderson, Corey, MD MD cha Garcia, Cindy, RN RN Love Le 5 Jaylene Morgan RN RN ll3 Day Estrada RN RN mb9 Jaylene Morgan RN ll3 Corrections: (The following items were deleted from the chart) 07:51 07:02 Mucomyst - Acetylcysteine 600 mg PO once ordered. zarina zarina 07:55 05:57 TO [facility] zarina zarina 07:55 05:57 [facility] zarina zarina 07:55 05:57 Higher level of care zarina zarina 07:55 05:57 Fair zarina zarina 07:55 05:57 new zarina zarina 07:55 05:57 have improved zarina zarina 07:55 05:57 Type 1 diabetes mellitus with hyperglycemia zarina zarina 07:55 05:57 Abuse of other non-psychoactive substances zarina zarina 07:55 05:57 Alcohol abuse with intoxication zarina zarina 07:55 05:57 Altered mental status, unspecified zarina zarina 07:55 05:[address] elevation ID zarina zarina 20:49 07:59 zarina cg
--- NOTE | 2022-04-13 05:57 | ER ---
Nurse's Notes [facility] Name: Surjit Stubbs Age: 47 yrs Sex: Male : 1975 Arrival Date: 04/13/2022 Time: 04:24 Bed 4 Private MD: Diagnosis: Weakness;Type 1 diabetes mellitus with hyperglycemia;Alcohol abuse with intoxication;Altered mental status, unspecified;Cocaine abuse;Non ST elevation PA;Pneumonia due to other specified bacteria-left upper lobe, patchy Presentation: 04/13 04:43 Chief complaint: EMS states: found slumped over in car by PD with large bottle of vodka kl possible meth ingestion. Coronavirus screen: Vaccine status:. Ebola Screen:. Initial Sepsis Screen: Does the patient meet any 2 criteria? No. Patient's initial sepsis screen is negative. Does the patient have a suspected source of infection? No. Patient's initial sepsis screen is negative. Risk Assessment: Do you want to hurt yourself or someone else? Patient reports no desire to harm self or others. 04:43 [facility] 04:43 Acuity: TOI 3 kl Triage Assessment: 04:45 General: Appears in no apparent distress. slender, unkempt, Behavior is listless, kl unresponsive. Pain: Unable to use pain scale. Patient is unresponsive. EENT: No deficits noted. Neuro: Level of Consciousness is unresponsive. Cardiovascular: No deficits noted. Respiratory: No deficits noted. Airway is patent Trachea midline Respiratory effort is even, unlabored, Respiratory pattern is regular, symmetrical. GI: No deficits noted. : No deficits noted. straight cath performed. Derm: No deficits noted. Skin is intact. Musculoskeletal: No deficits noted. Historical: - Allergies: 09:43 tramadol; mb9 - PMHx: 09:43 Diabetes - IDDM; High Cholesterol; Hypothyroidism; neuropathy; Seizures; mb9 - Immunization history:: Adult Immunizations unknown. - Family history:: not pertinent. - Social history:: Smoking status: unknown. Screenin:47 Abuse screen: =unknowm. Nutritional screening: No deficits noted. Tuberculosis kl screening: No symptoms or risk factors identified. 09:42 Fall Risk No fall in past 12 months (0 pts). Secondary diagnosis (15 points) IV access mb9 (20 points). Ambulatory Aid- None/Bed Rest/Nurse Assist (0 pts). Gait- Weak (10 pts.). Mental Status- Overestimates/Forgets Limitations (15 pts.). Assessment: 04:47 Reassessment: see triage assessment. kl 06:46 Reassessment: No changes from previously documented assessment. Patient and/or family ll3 updated on plan of care and expected duration. Pain level reassessed. 07:00 Reassessment: Report received from MELANIE Mares. mb9 07:30 General: Appears in no apparent distress. comfortable, Behavior is. Pain: Complains of mb9 pain in chest. Neuro: Li Agitation-Sedation Scale (RASS): 0 - Alert and Calm Level of Consciousness is lethargic, Oriented to person. Cardiovascular: Heart tones S1 S2 present Rhythm is sinus tachycardia. 07:30 Pain: Pain does not radiate. Pain currently is 5 out of 10 on a pain scale. Quality of mb9 pain is described as heavy, pressure. Respiratory: GI: Abdomen is flat, non-distended, Bowel sounds present X 4 quads. Abd is soft and non tender X 4 quads. : Urine is clear. EENT: No signs and/or symptoms were reported regarding the EENT system. Derm: Skin is pink, warm \T\ dry. Musculoskeletal: Range of motion: intact in all extremities. 08:57 Reassessment: pt currently sleeping. Respirations are even and unlabored. Rhythm is mb9 sinus tachycardia. Skin is warm, pink, and dry. 09:42 General: Appears in no apparent distress. Behavior is drowsy. Neuro: Level of mb9 Consciousness is confused, lethargic, Oriented to person. Cardiovascular: Rhythm is sinus rhythm. Respiratory: Airway is patent Respiratory effort is even, unlabored, Respiratory pattern is regular, symmetrical. Derm: Skin is pink, warm \T\ dry. 21:52 Reassessment: report given to Mai NAVARRO for room 217. bb Vital Signs: 04:43 BP 118 / 89; Pulse 92; Resp 16; Temp 98(O); Pulse Ox 98% on R/A; Pain 0/10; kl 05:30 BP 113 / 79; Pulse 95; Resp 17; Pulse Ox 100% on R/A; ll3 06:13 Weight 63.5 kg (R); mw2 06:44 BP 102 / 70; Pulse 101; Resp 18; Pulse Ox 99% on R/A; ll3 07:00 BP 92 / 65; Pulse 101; Resp 18; Pulse Ox 100% on R/A; mb9 08:15 BP 96 / 68; Pulse 102; Resp 16; Pulse Ox 98% on 2 lpm NC; mb9 09:25 BP 107 / 85; Pulse 96; Resp 16; Pulse Ox 97% on 2 lpm NC; mb9 ED Course: 04:24 Patient arrived in ED. mw2 04:28 Jame Vaughan MD is Attending Physician. zarina 04:30 Arm band placed on Patient placed in an exam room, on a stretcher, on pulse oximetry. ll3 04:45 Triage completed. kl 04:48 Maintain EMS IV. Dressing intact. Good blood return noted. Site clean \T\ dry. Gauge \T\ kl site: right ac. 04:49 XRAY Chest (1 view) In Process Unspecified. EDMS 05:14 CT Traumagram (Head C Spine CAP wo con) In Process Unspecified. EDMS 05:23 Notified ED physician of a critical lab result(s). glucose of 427, troponin of 3848.7, bb lactate 2.1 Dr Vaughan notified. 06:12 initiated a transfer with Salvador from [facility]. mw2 07:00 Placed in gown. Bed in low position. Call light in reach. Side rails up X 1. mb9 07:46 transfer initiated to [facility], pt denied at [facility] due to no capacity at this bd time, per Nimo. initiate transfer to [facility],pt denied at [facility] due to no capacity at this time, per Nimo. 07:55 Can Devries MD is Hospitalizing Provider. zarina 07:56 Day Estrada RN is Primary Nurse. mb9 09:26 No provider procedures requiring assistance completed. mb9 Administered Medications: 04:56 Drug: NS 0.9% 1000 ml Route: IV; Rate: 1 bolus; Site: right antecubital; tw5 06:43 Drug: Rocephin (cefTRIAXone) 1 grams Route: IV; Rate: per protocol; Site: left wrist; ll3 06:43 Drug: NS 0.9% 1000 ml Route: IV; Rate: 1 bolus; Site: left wrist; ll3 06:49 Drug: Insulin Regular Human 8 units {Co-Signature: [email or web address] (Jaylene Morgan RN).} Route: IVP; Site: left antecubital; 06:49 Drug: Semglee 100 unit/mL 35 units Route: Sub-Q; Site: left lower abdomen; kl 07:51 CANCELLED (Duplicate Order): Mucomyst - Acetylcysteine 600 mg PO once zarina 08:35 Drug: Zithromax (azithromycin) 500 mg Route: IVPB; Infused Over: 1 hrs; Site: left mb9 wrist; 09:34 Follow up: Response: No adverse reaction; IV Status: Completed infusion mb9 08:35 Drug: Aspirin Chewable Tablet 324 mg Route: PO; mb9 09:25 Follow up: Response: No adverse reaction mb9 08:35 Drug: Pepcid (famotidine) 20 mg Route: IVP; Site: right wrist; mb9 09:25 Follow up: Response: No adverse reaction mb9 08:54 Drug: Lovenox (enoxaparin) 60 mg Route: Sub-Q; Site: left lower abdomen; mb9 09:25 Follow up: Response: No adverse reaction mb9 Medication: 09:27 VIS not applicable for this client. mb9 Outcome: 05:57 ER care complete, transfer ordered by . zarina 07:59 Decision to Hospitalize by Provider. zarina 21:53 Patient left the ED. bb Signatures: Dispatcher [employer] EDMS Carmen Smith Kimberly, RN RN kl Anderson, Corey, MD MD cha Ballard, Brenda, RN RN bb [place], MyKena 2 Love [place] 5 Jaylene Morgan RN RN ll3 Day Estrada RN RN mb9 Jaylene Morgan RN ll3 Corrections: (The following items were deleted from the chart) 09:35 07:30 Neuro: Li Agitation-Sedation Scale (RASS): 0 - Alert and Calm Level of mb9 Consciousness is alert, lethargic, mb9
[2022-04-13] MEDS ORDERED: INSULIN GLARGINE 100 UNIT/ML SQ ONE (06:35)
[2022-04-13] MEDS ORDERED: INSULIN -REGULAR HUMAN 50 UNIT/0.5 ML ML ONE ×2 (06:36→12:04)
[2022-04-13 06:57] LABS: SARS-CoV-2 Antigen Rapid Res Negative (Negative)
[2022-04-13] MEDS ORDERED: NA CHLORIDE 0.9% 250 ML ONE (08:26)
[2022-04-13] MEDS ORDERED: AZITHROMYCIN 500 MG INJ IVPB ONE (08:26)
[2022-04-13] MEDS ORDERED: FAMOTIDINE 20 MG/2 ML VIAL IV ONE (08:26)
[2022-04-13] MEDS ORDERED: ASPIRIN 81 MG CHEWABLE TABLET ONE (08:26)
[2022-04-13] MEDS ORDERED: ENOXAPARIN 60 MG/0.6 ML SQ ONE (08:42)
[2022-04-13] MEDS ORDERED: ACETAMINOPHEN 325 MG TABLET PO PRN (10:17)
[2022-04-13] MEDS ORDERED: TRAMADOL HCL 50 MG TAB PO PRN (10:35)
[2022-04-13] MEDS ORDERED: ONDANSETRON 4 MG/2 ML VIAL IV PRN (10:36)
[2022-04-13] MEDS ORDERED: D50W 25 GM/50 ML SYRINGE IV PRN (10:39)
[2022-04-13] MEDS ORDERED: GLUCAGON 1 MG/VIAL IM PRN (10:39)
[2022-04-13] MEDS ORDERED: DEXTROSE 10%-WATER 125 ML IV PRN (10:54)
[2022-04-13] MEDS ORDERED: chlordiazePOXIDE HCl 5 MG CAP PO PRN (11:21)
[2022-04-13] MEDS ORDERED: LORazepam 2 MG/ML VIAL IV PRN (11:22)
--- NOTE | 2022-04-13 11:25 | P.HP ---
Certification for Inpatient Patient admitted to: Inpatient With expected LOS: >2 Midnights Patient will require the following post-hospital care: None Practitioner: I am a practitioner with admitting privileges, knowledge of patient current condition, hospital course, and medical plan of care. Services: Services provided to patient in accordance with Admission requirements found in Title 42 Section 412.3 of the Code of Federal Regulations <VadimobduliaOlivia pierce Kari - Last Filed: 04/13/22 13:06> Patient History Date of Service: 04/13/22 Reason for admission: Altered mental status. History of Present Illness: Patient is a 47-year-old male with a past medical history significant for alcohol abuse, DM type I, hypothyroidism, hyperlipidemia, diabetic neuropathy who presents with complaint of altered mental status. Patient alert and oriented x1, confused and unable to provide any history. Patient does not respond to verbal commands appropriately. Per medical record patient was found unresponsive. Patient was positive for cocaine and alcohol. No other signs and symptoms reported. Symptoms are aggravated or relieved by nothing. Patient was brought to the hospital for medical evaluation. - Past Medical/Surgical History Diabetic: Yes -: Diabetes mellitus type 1 -: Hypothyroidism -: Hyperlipidemia -: Alcohol abuse -: neuropathy -: adenoidectomy Psychosocial/ Personal History: Patient currently lives at home alone - Family History Father -: Heart disease, Diabetes - Social History Smoking Status: Unknown if ever smoked Alcohol use: Yes CD- Drugs: No Caffeine use: Yes Place of Residence: Home <VadimobduliaSeveriano piercexiomara Pierce - Last Filed: 04/13/22 13:06> Date of Service: 04/13/22 <Can Devries - Last Filed: 04/13/22 20:02> Allergies tramadol Allergy (Verified 01/13/20 07:25) Nausea/Vomiting Home Medications: Insulin -Regular Human [Novolin -R*] See Protocol SQ ACHS 05/06/17 Multivitamin [Daily Multiple Vitamin] 1 tab PO DAILY 05/06/17 Glucagon,Human Recombinant [Glucagon Emergency Kit] 1 mg IM PRN PRN #5 vial 12/02/20 Insulin 70/30 NPH/Reg Human [Novolin 70/30*] 25 unit SQ BIDAC #10 ml 12/02/20 Pregabalin [Lyrica*] 100 mg PO BID #60 cap 12/02/20 Thiamine HCl [Vitamin B-1*] 100 mg PO DAILY #30 tablet 12/02/20 Thyroid Tab [[place] Thyroid*] 120 mg PO DAILY #30 tab 12/02/20 gemfibroziL [Lopid*] 600 mg PO BID #60 tab 12/02/20 Review of Systems is unable to be obtained (Patient confused and unable to respond to questions appropriately.) <Olivia Garcia Kari - Last Filed: 04/13/22 13:06> Physical Examination - Physical Exam General: Alert, Oriented x1, Confused HEENT: Atraumatic, Normocephalic, PERRLA, EOMI Neck: Supple, 2+ carotid pulse no bruit, No Thyromegaly, Without JVD or thyroid abnormality Respiratory: Diminished Cardiovascular: No edema, Regular rate/rhythm, Normal S1 S2 Capillary refill: <2 Seconds Gastrointestinal: Normal bowel sounds, Non-distended, No tenderness, No masses Musculoskeletal: No clubbing, No swelling, No contractures Integumentary: No rashes, No breakdown, No significant lesion Neurological: Normal tone, Abnormal gait Lymphatics: No axilla or inguinal lymphadenopathy - Studies Laboratory Data (last 24 hrs) 04/13/22 04:40: PT 11.4, INR 1.04, APTT 29.4 04/13/22 04:40: WBC 7.10, Hgb 14.1, Hct 42.8, Plt Count 476 H 04/13/22 04:40: Sodium 137, Potassium 4.1, BUN 4 L, Creatinine 1.07, Glucose 427 H*, Magnesium 1.8, Total Bilirubin 0.6, AST 19, ALT 15, Alkaline Phosphatase 164 H, Lipase 46 L Microbiology Data (last 24 hrs): 04/13/22 05:17 Blood - Blood Anaerobic Blood Culture - Final <MjrubensFabiana pierceloreto iPerce - Last Filed: 04/13/22 13:06> - Studies Laboratory Data (last 24 hrs) 04/13/22 04:40: PT 11.4, INR 1.04, APTT 29.4 04/13/22 04:40: WBC 7.10, Hgb 14.1, Hct 42.8, Plt Count 476 H 04/13/22 04:40: Sodium 137, Potassium 4.1, BUN 4 L, Creatinine 1.07, Glucose 427 H*, Magnesium 1.8, Total Bilirubin 0.6, AST 19, ALT 15, Alkaline Phosphatase 164 H, Lipase 46 L Microbiology Data (last 24 hrs): 04/13/22 05:17 Blood - Blood Anaerobic Blood Culture - Final <Can Devries - Last Filed: 04/13/22 20:02> Assessment and Plan - Plan --Acute encephalopathy. CT head does not indicate any acute abnormality. Altered mental status likely secondary to substance abuse\overdose. Patient currently alert and oriented X1, confused and unable to respond to verbal commands appropriately. Continue supportive care. --NSTEMI. Troponin level elevated. Patient started on heparin drip. Cardiology consulted. Echocardiogram pending to assess cardiac structures and functions. Further management per hotel server. --Substance abuse. UDS positive for cocaine. Patient be counseled on drug cessation when fully alert. --Alcohol abuse. Alcohol level at 104. Patient placed on banana bag, Librium and Ativan as needed. [facility] protocol. --Type I diabetes. BS monitoring with sliding scale insulin and Lantus. --Hypothyroidism. Continue home medication. --Hyperlipidemia. Continue home medication. --Diabetic Neuropathy. Continue Lyrica when appropriate. --Pneumonia. Continue antibiotics and O2 therapy as needed. --Hypophosphatemia\hypomagnesemia. Replete as needed. --DVT prophylaxis with heparin drip Discharge Plan: Home Plan to discharge in: Greater than 2 days - Advance Directives Does patient have a Living Will: No Does patient have a Durable POA for Healthcare: No - Code Status/Comfort Care Code Status Assessed: Yes Physician Review: Patient Assessed, Agree with Above Assessment and Plan Critical Care: No <Olivia Garcia - Last Filed: 04/13/22 13:06> Physician Review: Patient Assessed, Agree with Above Assessment and Plan <Can Devries - Last Filed: 04/13/22 20:02>
[2022-04-13] MEDS: INSULIN -REGULAR HUMAN 50 UNIT/0.5 ML ML SQ SCH ×3 (11:30→21:00)
[2022-04-13 11:43] LABS: Magnesium 1.6 mg/dL (1.8-2.4); Phosphorus 1.7 mg/dL (2.5-4.9); Thyroid Stimulating Hormone 3.72 uIU/mL (0.360-3.740)
--- NOTE | 2022-04-13 12:44 | RAD REPORT ---
EXAM DESCRIPTION: RAD - Chest Single View - 04/13/2022 4:47 am CLINICAL HISTORY: 47 years Male, COUGH COMPARISON: Prior chest x-ray reports from 04/29/2020. The image was unavailable for review. TECHNIQUE: Single portable x-ray view of the chest performed on 04/13/2022 at 4:44 AM FINDINGS: The lungs are well-expanded. There is very mild perihilar interstitial prominence which is nonspecific but could be due to vascular congestion and/or inflammatory changes. No focal airspace p rocess is identified. The lateral costophrenic sulci are clear. There is no evidence of a pneumothora x. The patient is rotated towards the right. The cardiac silhouette is normal in size and configuration. The mediastinal contours are normal. No acute osseous abnormality is identified. No acute soft tissue abnormalities are seen. Lines and tubes: None. Free air: None IMPRESSION: Mild nonspecific perihilar interstitial prominence which could be due to chronic changes , mild vascular congestion and/or inflammatory changes. No focal airspace process is identified. Lorna elation with prior images would be helpful. Electronically signed by: Evelia Mills DO 04/13/2022 5:17 AM SECURITY LEAD Due to temporary technical issues with the PACS/Fluency reporting system, reports are being signed by the in house radiologists without review as a courtesy to insure prompt reporting. The interpreting radiologist is fully responsible for the content of the report.
--- NOTE | 2022-04-13 13:01 | RAD REPORT ---
EXAM DESCRIPTION: CT - Head C Spine Cap Wo Con - 04/13/2022 7:14 am CLINICAL HISTORY: 47 years Male ALTERED TECHNIQUE: Multiple axial CT images of the brain, cervical spine, chest, abdomen and pelvis were per formed followed by sagittal and coronal reconstructed images. The CT study is performed according to ALARA (as low as reasonably achievable) or ALARA/IMAGE GENTLY, with automatic adjustment of mA and/or kV according to patient size. Performed on: 04/13/2022 at 4:43 AM Comparisons: Head CT performed on 03/28/2022. FINDINGS: CT HEAD: There is no evidence of mass, acute mass effect or midline shift. There are no acute extra-axial flui d collections. There is no evidence of acute intracranial hemorrhage. The cerebral sulci and ventricles are normal in size and configuration. There are no focal abnormal areas of increased or decreased attenuation. There is mild to moderate mucosal thickening of the maxillary, ethmoid and frontal sinuses. There is near complete opacification of the right maxillary sinus, anterior left ethmoid air cells and left fr ontal sinus. The mastoid air cells are clear. The orbital contents are grossly unremarkable. No acute osseous abnormalities are identified. No focal soft tissue abnormalities are identified. CT CERVICAL SPINE: The cervical vertebrae are normal in height. There is normal alignment of the vertebrae. There appear s to be partial fusion of C7-T1. The disc spaces are well preserved in height. Bone mineralization is normal. The atlanto-axial articulation is preserved and the odontoid process is intact. There is normal alignment of the facet joints on the parasagittal images. There are minimal degenerat dash changes of the cervical spine. There is no evidence of acute fracture or subluxation. There is no significant canal stenosis. Ther e is no significant neural foraminal stenosis. The paravertebral and paraspinal soft tissues are un remarkable. The lung apices demonstrate minimal pleural parenchymal fibrosis in the posterior right upper lobe. CHEST: Lungs: The lungs are well-expanded. There are a couple of small patchy airspace opacities in the left upper lobe anteriorly which are nonspecific and may be related to an early infectious or inflammator y process. There may be minimal pleural parenchymal fibrosis in the anterolateral right middle lobe a nd posterior right upper lobe. There are no pleural effusions. There is no pneumothorax. The central airways are patent. Heart: The heart is normal in size. There is no pericardial effusion. There are mild coronary art [place] calcifications. Mediastinum: The mediastinum is unremarkable. The mediastinal vessels are normal in caliber and con tour. There are minimal atherosclerotic calcifications along the thoracic aorta. Bones: There are age indeterminate mild superior endplate compression fractures involving T5-T8. Thes e may be chronic in nature there is no significant buckling of the anterior cortex of these vertebrae . There is a healing fracture of the anterolateral left eighth rib. Soft tissues: No focal soft tissue abnormalities are identified. Lymphadenopathy: No pathologic hilar, mediastinal or axillary lymphadenopathy is identified. ABDOMEN/PELVIS: Liver: The liver is normal in size and configuration. No focal hepatic abnormalities are identified. Liver attenuation is within normal limits. Spleen: The spleen is normal is size, configuration and attenuation. Gallbladder and bile duct: The gallbladder is well distended and contains gallstones. There is no b iliary ductal dilatation. Pancreas: The pancreas is grossly normal in size and configuration. Adrenal Glands: The adrenal glands are normal in size and configuration. Kidneys: The kidneys are normal in size and configuration. There is no evidence of hydronephrosis. Th ere is no evidence of nephrolithiasis. No definite solid or cystic renal mass lesions are identified. Stomach: The stomach is grossly normal. There is no definite hiatal hernia. Bowel: The bowel gas pattern is non specific and non obstructive. Appendix: The appendix is not clearly visualized on this examination. There is no CT evidence to sugg est acute appendicitis. Free air: There is no evidence of free air. Free fluid: There is no evidence of free fluid. Vasculature: The aorta is normal in caliber and contour. The inferior vena cava is grossly unremarkab le. There are mild atherosclerotic calcifications along the abdominal aorta. Lymphadenopathy: No pathologic lymphadenopathy is identified. Bladder: The bladder is well distended and smooth in contour. Reproductive: The prostate gland is grossly within normal limits. Bones: No acute osseous abnormalities are identified. There is a right hip arthroplasty which produce s streak artifact and slight degradation of image quality region of the pelvis. Soft tissues: There is mild soft tissue swelling surrounding the right hip IMPRESSION: CT HEAD: 1. No evidence of acute intracranial pathology. 2. Mild to moderate mucosal thickening of the maxillary, ethmoid and frontal sinuses with near comp lete opacification of the right maxillary sinus, anterior left ethmoid air cells and left frontal sin us. CT CERVICAL SPINE: 1. No evidence of acute osseous injury involving the cervical spine. 2. There appears to be partial fusion of C7-T1. 3. Minimal degenerative changes of the cervical spine. CT CHEST: 1. No evidence of acute intrathoracic disease. 2. There are a couple of small patchy airspace opacities in the left upper lobe anteriorly which ar e nonspecific and may be related to an early infectious or inflammatory process. 3. Healing fracture of the anterolateral left eighth rib. 4. Age indeterminate mild superior endplate compression fractures involving T5-T8. These may be chron ic in nature. Correlate clinically for focal pain at these levels. CT ABDOMEN AND PELVIS: 1. No evidence of acute intra-abdominal or intrapelvic pathology. 2. Cholelithiasis. 3. Right hip arthroplasty which produces streak artifact and slight degradation of image quality in the region of the pelvis. 4. Soft tissue swelling surrounding the right hip. Electronically signed by: Evelia Mills DO 04/13/2022 5:56 AM SALES OPERATIONS DIRECTOR Due to temporary technical issues with the PACS/Fluency reporting system, reports are being signed by the in house radiologists without review as a courtesy to insure prompt reporting. The interpreting radiologist is fully responsible for the content of the report.
[2022-04-13] MEDS ORDERED: POTASSIUM PHOS 10 MM in NA CHLORIDE 0.9% 250 ML IV ONE (13:10)
[2022-04-13] MEDS ORDERED: MAGNESIUM SULFATE 1 gm IVPB 1 GM/100 ML BAG IV ONE ×2 (13:10→13:34)
[2022-04-13] MEDS ORDERED: ASPIRIN 81 MG CHEWABLE TABLET PO ONE (20:05)
[2022-04-13] MEDS: gemfibroziL 600 MG TAB PO SCH (22:35)
[2022-04-13] MEDS: PREGABALIN 50 MG CAP PO SCH (22:35)
[2022-04-13] MEDS: THIAMINE 200 MG/2 ML INJ IVP SCH (22:35)
[2022-04-13] MEDS: INSULIN GLARGINE 100 UNIT/ML SQ SCH (22:35)
[2022-04-13] MEDS ORDERED: MORPHINE 2 MG/ML SYR IV ONE (23:14)
[2022-04-14 03:09] VITALS: BMI 21.7
[2022-04-14] MEDS: HEPARIN/D5W 25,000 UNIT/500 ML BAG IV SCH (03:43)
[2022-04-14 03:55] LABS: Absolute Lymphocytes (CBC) 2.9 K/uL (0.7-4.9); Hematocrit 36.4 % (39.6-49.0); Lymphocytes % 41.5 % (15.3-44.8); MCV 88.9 fL (80-100); MPV 8.2 fL (7.6-11.3); RBC Red Blood Cell Count 4.09 M/uL (4.33-5.43)
[2022-04-14 04:06] LABS: Potassium 3.1 mmol/L (3.5-5.1)
--- NOTE | 2022-04-14 05:46 | EKG ---
Test Date: 2022-04-13 Test Time: 04:52:46 Crimp Setter: DIEGO MEASUREMENT RESULTS: Intervals: Rate: 90 SD: 138 QRSD: 70 QT: 400 QTc: 489 [place]: P: 56 SD: 138 QRS: -17 T: 95 INTERPRETIVE STATEMENTS: Normal sinus rhythm Possible Left atrial enlargement Septal infarct, age undetermined ST & T wave abnormality, consider anterolateral ischemia Abnormal ECG Compared to ECG 03/28/2022 13:40:38 Myocardial infarct finding now present ST (T wave) deviation now present Possible ischemia now present Electronically Signed On 04-14-22 05:44:44 [place] LEAD by Familia Pickett
[2022-04-14] MEDS: THYROID 30 MG TAB PO SCH (05:49)
[2022-04-14] MEDS: INSULIN -REGULAR HUMAN 50 UNIT/0.5 ML ML SQ SCH ×4 (07:30→21:12)
[2022-04-14] MEDS ORDERED: FOLIC ACID 1 MG, MULTIVITAMINS INJ 10 ML, THIAMINE HCL 100 MG in NA CHLORIDE 0.9% 1,000 ML IV SCH (09:00)
[2022-04-14] MEDS ORDERED: MULTIVITAMIN TAB PO SCH (09:00)
[2022-04-14] MEDS ORDERED: THIAMINE HCL 100 MG TABLET PO SCH (09:00)
[2022-04-14] MEDS ORDERED: POTASSIUM CL SA 10 MEQ TAB PO ONE (09:00)
[2022-04-14] MEDS: gemfibroziL 600 MG TAB PO SCH ×2 (09:35→21:11)
[2022-04-14] MEDS: FOLIC ACID 1 MG, MULTIVITAMINS INJ 10 ML, THIAMINE HCL 100 MG in NA CHLORIDE 0.9% 1,000 ML IV SCH (09:35)
[2022-04-14] MEDS: THIAMINE 200 MG/2 ML INJ IVP SCH ×2 (09:35→21:27)
[2022-04-14] MEDS: PREGABALIN 50 MG CAP PO SCH ×2 (09:35→21:11)
--- NOTE | 2022-04-14 16:32 | P.PN ---
Subjective Date of Service: 04/14/22 Chief Complaint: Altered mental status. No acute events overnight. He reports that his chest pain is persistent. He reports recent use of cocaine and ethanol. He denies any prior cardiac history. Review of Systems 10-point ROS is otherwise unremarkable Cardiovascular: Chest Pain Physical Examination - Vital Signs Temperature: 97.8 F Blood Pressure: 123/88 Pulse: 88 Respirations: 14 Pulse Ox (%): 98 - Physical Exam General: Alert, In no apparent distress, Oriented x3 HEENT: Atraumatic, PERRLA, Mucous membr. moist/pink, EOMI, Sclerae nonicteric Neck: JVD not distended Respiratory: Clear to auscultation bilaterally, Normal air movement Cardiovascular: No edema, Regular rate/rhythm, Normal S1 S2, No gallops, No rubs, No murmurs Gastrointestinal: Normal bowel sounds, Soft and benign, Non-distended, No tenderness, No rebound, No guarding Musculoskeletal: No clubbing Integumentary: No rashes Neurological: Normal speech, Cranial nerves 3-12 intact, Normal affect - Studies Microbiology Data (last 24 hrs): 04/13/22 06:07 Blood - Blood Anaerobic Blood Culture - Final 04/13/22 05:17 Blood - Blood Anaerobic Blood Culture - Final Assessment And Plan - Plan # Chest Pain, concern for Acute Coronary Syndrome (Non-ST Segment Elevation Myocardial Infarction) # Substance Use Disorder - Cocaine Chest pain likely induced by cocaine use. - Evaluation thus far: - EKG: No reported STEMI criteria, trend - Serial troponin: 3848.7 -> 3171.1 -> 2312.4 - Ordered transthoracic echocardiogram - Management plan: - Consult Cardiology and spoke with Dr. Vaca - recommendations appreciated - S/P aspirin 324 mg PO x 1 in ED - Start daily baby aspirin + atorvastatin - Continue heparin drip - Plan to start RBAIN-inhibitor/ARB as tolerated - Hold off on beta-blockers given cocaine use - Substance cessation counseling provided # Acute Metabolic Encephalopathy likely secondary to Alcohol Intoxication (resolved) # Alcohol Use Disorder - Ethanol = 104 - Continue banana bag, scheduled chlordiazepoxide - Monitor for signs/symptoms of alcohol withdrawal syndrome - Alcohol cessation counseling provided # Type I Diabetes Mellitus complicated by Peripheral Neuropathy - Continue home insulin and pregabalin # Hypothyroidism - Continue home armour thyroid # Hyperlipidemia - Continue home gemfibrozil - Started atorvastatin # Hypophosphatemia # Hypomagnesemia - Replace as needed Can Devries M.D.
[2022-04-14 19:44] VITALS: O2SAT 96
[2022-04-14] MEDS ORDERED: ATORVASTATIN 20 MG TAB PO SCH (21:00)
[2022-04-14] MEDS: chlordiazePOXIDE HCl 5 MG CAP PO SCH (21:11)
[2022-04-14] MEDS: INSULIN GLARGINE 100 UNIT/ML SQ SCH (21:12)
[2022-04-15] MEDS ORDERED: HEPARIN 5000 UNIT/ML 1 ML VIAL IV ONE (03:00)
[2022-04-15] MEDS: HEPARIN/D5W 25,000 UNIT/500 ML BAG IV SCH (06:27)
[2022-04-15] MEDS: THYROID 30 MG TAB PO SCH (06:28)
[2022-04-15] MEDS: INSULIN -REGULAR HUMAN 50 UNIT/0.5 ML ML SQ SCH ×3 (07:30→17:18)
[2022-04-15] MEDS: gemfibroziL 600 MG TAB PO SCH ×2 (08:48→09:00)
[2022-04-15] MEDS: PREGABALIN 50 MG CAP PO SCH ×2 (08:49→09:00)
[2022-04-15] MEDS: lisinopriL 5 MG TAB PO SCH ×2 (08:49→08:51)
[2022-04-15] MEDS: chlordiazePOXIDE HCl 5 MG CAP PO SCH ×3 (08:49→13:50)
[2022-04-15] MEDS: THIAMINE 200 MG/2 ML INJ IVP SCH (08:49)
[2022-04-15] MEDS: FOLIC ACID 1 MG, MULTIVITAMINS INJ 10 ML, THIAMINE HCL 100 MG in NA CHLORIDE 0.9% 1,000 ML IV SCH ×2 (08:50→08:59)
[2022-04-15] MEDS ORDERED: ASPIRIN 81 MG CHEWABLE TABLET PO SCH (09:00)
[2022-04-15 09:05] LABS: MPV 8.9 fL (7.6-11.3)
[2022-04-15 09:47] LABS: Magnesium 1.7 mg/dL (1.6-2.4); Phosphorus 2.9 mg/dL (2.5-4.9); Potassium 4.1 mmol/L (3.5-5.1)
[2022-04-15 13:02] VITALS: TEMP 98.1
--- NOTE | 2022-04-15 13:53 | ECHO ---
HEIGHT: 5 ft 8 in WEIGHT: 143 lb 3.2 oz DATE OF STUDY: 04/15/[address]: Can Devries MD 2-DIMENSIONAL: YES M.MODE: YES DOPPLER: YES COLOR FLOW: YES TDS: PORTABLE: YES DEFINITY: BUBBLE STUDY: DIAGNOSIS: NON ST ELEVATION MYOCARDIAL INFARCTION CARDIAC HISTORY: CATHERIZATION: SURGERY: PROSTHETIC VALVE: PACEMAKER: MEASUREMENTS (cm) DIASTOLIC (NORMALS) SYSTOLIC (NORMALS) IVSd 0.9 (0.6-1.2) LA Diam 3.1 (1.9-4.0) LVEF 35-40% LVIDd 4.8 (3.5-5.7) LVIDs 4.2 (2.0-3.5) %FS 14% LVPWd 1.0 (0.6-1.2) Ao Diam 2.6 (2.0-3.7) 2 DIMENSIONAL ASSESSMENT: RIGHT ATRIUM: NORMAL LEFT ATRIUM: NORMAL RIGHT VENTRICLE: NORMAL LEFT VENTRICLE: DEPRESSED EJECTION FRACTION TRICUSPID VALVE: NORMAL MITRAL VALVE: MILD MITRAL REGURGITATION PULMONIC VALVE: MILD PULMONIC INSUFFICIENCY AORTIC VALVE: MILD AORTIC INSUFFICIENCY PERICARDIAL EFFUSION: NONE AORTIC ROOT: NORMAL LEFT VENTRICULAR WALL MOTION: APICAL SEVERE HYPOKINESIS DOPPLER/COLOR FLOW: SEE BELOW COMMENTS: 1. MODERATELY DEPRESSED LEFT VENTRICULAR EJECTION FRACTION 35-40% 2. APICAL SEVERE HYPOKINESIS 3. MILD MITRAL REGURGITATION, AORTIC INSUFFICIENCY, TRICUSPID REGURGITATION 4. DIASTOLIC DYSFUNCTION, MILD TECHNOLOGIST: ALEXI GERARD
[2022-04-15 16:54] VITALS: BP 110/67
[2022-04-15] MEDS ORDERED: DEXTROSE 10%-WATER 500 ML IV BAG IV PRN (17:09)
[2022-04-15] MEDS ORDERED: INSULIN -REGULAR HUMAN 50 UNIT/0.5 ML ML IV ONE (17:15)
--- NOTE | 2022-04-15 18:47 | P.PN ---
Subjective Date of Service: 04/15/22 Chief Complaint: Altered mental status. No acute events overnight. He reports that his chest pain is persistent. He denies any shortness of breath or palpitations. Review of Systems 10-point ROS is otherwise unremarkable Cardiovascular: Chest Pain Physical Examination - Vital Signs Temperature: 98.1 F Blood Pressure: 110/67 Pulse: 88 Respirations: 14 Pulse Ox (%): 99 Assessment And Plan - Plan - Physical Exam General: Alert, In no apparent distress, Oriented x3 HEENT: Atraumatic, PERRLA, Mucous membr. moist/pink, EOMI, Sclerae nonicteric Neck: JVD not distended Respiratory: Clear to auscultation bilaterally, Normal air movement Cardiovascular: No edema, Regular rate/rhythm, Normal S1 S2, No gallops, No rubs, No murmurs Gastrointestinal: Normal bowel sounds, Soft and benign, Non-distended, No tenderness, No rebound, No guarding Musculoskeletal: No clubbing Integumentary: No rashes Neurological: Normal speech, Cranial nerves 3-12 intact, Normal affect # Chest Pain, concern for Acute Coronary Syndrome (Non-ST Segment Elevation Myocardial Infarction) # Substance Use Disorder - Cocaine Chest pain likely induced by cocaine use. - Evaluation thus far: - EKG: No reported STEMI criteria, trend - Serial troponin: 3848.7 -> 3171.1 -> 2312.4 -> 1124.1 - Ordered transthoracic echocardiogram - Management plan: - Consult Cardiology and spoke with Dr. Vaca - recommendations appreciated - S/P aspirin 324 mg PO x 1 in ED - Start daily baby aspirin + atorvastatin - Continue heparin drip - Plan to start BRAIN-inhibitor/ARB as tolerated - Hold off on beta-blockers given cocaine use - Substance cessation counseling provided # Acute Metabolic Encephalopathy likely secondary to Alcohol Intoxication (resolved) # Alcohol Use Disorder - Ethanol = 104 - Continue banana bag, scheduled chlordiazepoxide - Monitor for signs/symptoms of alcohol withdrawal syndrome - Alcohol cessation counseling provided # Type I Diabetes Mellitus complicated by Peripheral Neuropathy - Continue home insulin and pregabalin # Hypothyroidism - Continue home armour thyroid # Hyperlipidemia - Continue home gemfibrozil - Started atorvastatin # Hypophosphatemia # Hypomagnesemia - Replace as needed Can Devries M.D.
--- NOTE | 2022-04-16 06:04 | P.DS ---
Admission Date: 04/13/22 Discharge Date: 04/15/22 Disposition: AMA-LEFT AGAINST MEDICAL ADVIC Reason for Admission: Altered mental status. Hospital Course: DIAGNOSES: # Chest Pain, concern for Acute Coronary Syndrome (Non-ST Segment Elevation Myocardial Infarction) # Chronic Systolic Congestive Heart Failure (LVEF 35-40 %) # Substance Use Disorder - Cocaine # Acute Metabolic Encephalopathy likely secondary to Alcohol Intoxication ( resolved) # Alcohol Use Disorder # Type I Diabetes Mellitus complicated by Peripheral Neuropathy # Hypothyroidism # Hyperlipidemia # Hypophosphatemia # Hypomagnesemia Yesterday, after discussing with Dr. Vaca, he stated that a cardiac catheterization was not indicated. Mr. Stubbs was upset by this and stated that he would rather go to [facility], where they will "take better care" of him. I advised that he stay in the hospital so we can complete his cardiac evaluation and follow-up on Cardiology recommendations. I explained that premature discharge may result in complications including, but not limited to, worsening myocardial infarction and . He verbalized understanding and initially agreed to stay in the hospital to complete his evaluation. 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 For this reason, he was not seen today on rounds. Yesterday during rounds, he had sobered up from his alcohol intoxication and demonstrated medical decision making capacity. Vital Signs/Physical Exam: Temp Pulse Resp BP Pulse Ox 98.1 F 88 14 110/67 99 04/15/22 19:06 04/15/22 19:06 04/15/22 19:06 04/15/22 19:06 04/15/22 19:06 Laboratory Data at Discharge: WBC 7.10 K/uL (4.3-10.9) 04/14/22 02:47 Hgb 12.2 g/dL (13.6-17.9) L D 04/14/22 02:47 Hct 36.4 % (39.6-49.0) L 04/14/22 02:47 Plt Count 374 K/uL (152-406) 04/15/22 08:35 PT 11.4 SECONDS (9.5-12.5) 04/13/22 04:40 INR 1.04 04/13/22 04:40 APTT 50.8 SECONDS (24.3-36.9) H 04/15/22 13:47 Sodium 139 mmol/L (136-145) 04/15/22 08:35 Potassium 4.1 mmol/L (3.5-5.1) D 04/15/22 08:35 BUN 8 mg/dL (7-18) 04/15/22 08:35 Creatinine 0.75 mg/dL (0.70-1.30) 04/15/22 08:35 Glucose Cancelled 04/15/22 16:28 Phosphorus 2.9 mg/dL (2.5-4.9) 04/15/22 08:35 Magnesium 1.7 mg/dL (1.6-2.4) 04/15/22 08:35 Total Bilirubin 0.6 mg/dL (0.2-1.0) 04/13/22 04:40 AST 19 U/L (15-37) 04/13/22 04:40 ALT 15 U/L (12-78) 04/13/22 04:40 Alkaline Phosphatase 164 U/L (45-117) H 04/13/22 04:40 Lipase 46 U/L (73-393) L 04/13/22 04:40 Home Medications: Insulin -Regular Human [Novolin -R*] See Protocol SQ ACHS 05/06/17 Multivitamin [Daily Multiple Vitamin] 1 tab PO DAILY 05/06/17 Glucagon,Human Recombinant [Glucagon Emergency Kit] 1 mg IM PRN PRN #5 vial 12/02/20 Insulin 70/30 NPH/Reg Human [Novolin 70/30*] 25 unit SQ BIDAC #10 ml 12/02/20 Pregabalin [Lyrica*] 100 mg PO BID #60 cap 12/02/20 Thiamine HCl [Vitamin B-1*] 100 mg PO DAILY #30 tablet 12/02/20 Thyroid Tab [[place] Thyroid*] 120 mg PO DAILY #30 tab 12/02/20 gemfibroziL [Lopid*] 600 mg PO BID #60 tab 12/02/20 Followup: Unknown,U [Primary Care Provider] -
--- NOTE | 2022-04-16 23:17 | CON ---
History Of Present Illness: Admitted with Dr. Devries on 04/13/2022 with abnormal troponin, glucose of 427, low potassium, positive cocaine, BNP of 13,000, troponin of 2300. The patient came in with aty pical chest pain, altered mental status. Past Medical History: Includes diabetes, neuropathy, and dyslipidemia. Review of Systems: Negative. Social History: Positive for drug use. Allergies: INCLUDE TRAMADOL. Family History: Noncontributory. Medications: At home include Mr. Stubbs was obtunded, responsive, but will fall asleep after he wakes up. I was unable to get a good history from him, but his vital signs were stable. H e was afebrile. He was in sinus rhythm. HEENT: Negative. Neck: Supple with no bruit. Chest: Clear. Cardiac: Normal. Abdomen: Benign. Extremities: Revealed no clubbing, cyanosis, or edema. Diagnostic Data: As stated earlier. Impression And Plan: Elevated BNP and troponin secondary to hyperglycemia, demand ischemia, cocaine use. The patient is pain-free. EKG is unremarkable. Chest x-ray is unremarkable. I recommend gett ing a 2D echocardiogram. If the echocardiogram shows any wall motion abnormality, we will cath him. Continue present regimen otherwise. MIRA/ANGI Voice ID: [id number] Report ID: [id number]
== END 2022-04-15 19:22 | disposition left against medical advice (07) | DRG 917 ==
LOC: ER 04:18 → ERHOLD 10:14 → 2ND 20:55
PROVIDERS: ADMIT Internal Medicine; ATTEND Internal Medicine
DX: T40.5X1A Poisoning by cocaine, accidental (unintentional), initial encounter (principal); G93.41 Metabolic encephalopathy; I21.A1 Myocardial infarction type 2; J18.9 Pneumonia, unspecified organism; I50.22 Chronic systolic (congestive) heart failure; F10.129 Alcohol abuse with intoxication, unspecified; E03.9 Hypothyroidism, unspecified; E78.5 Hyperlipidemia, unspecified; F14.10 Cocaine abuse, uncomplicated; E10.42 Type 1 diabetes mellitus with diabetic polyneuropathy; E10.65 Type 1 diabetes mellitus with hyperglycemia; E83.42 Hypomagnesemia; E83.39 Other disorders of phosphorus metabolism; Z79.4 Long term (current) use of insulin; Z60.2 Problems related to living alone; Z88.5 Allergy status to narcotic agent; Z53.29 Procedure and treatment not carried out because of patient's decision for other reasons; Z79.899 Other long term (current) drug therapy; Z79.890 Hormone replacement therapy; Z20.822 Contact with and (suspected) exposure to COVID-19; Y90.5 Blood alcohol level of 100-119 mg/100 ml
CPT/HCPCS: 36415; 70450; 71045; 71250; 72125; 80048; 80076; 80307; 80320; 80329; 81003; 82947; 83605; 83690; 83735; 83880; 84100; 84132; 84439; 84443; 84484; 85025; 85049; 85610; 85730; 87040; 87811; 93005; 93306; 96372; 99284; J0456; J1644; J1650; J1815; J2270; J3411; J3475; J7030; J7050

== ENCOUNTER 2022-05-16 05:05 | Inpatient (IN) | payer SELFPAY ==
--- OUTSIDE RECORDS SUMMARY | 2022-05-16 05:20 | XMS REPORT | Continuity of Care Document ---
:1975 Author Organization [facility] t Address [address] [place] [address] Care Team Providers Name Role Phone Dale Junior Primary Care Physician Brigette Chauhan RN Attending Clinician Unavailable Patricia Rodriguez LVN Attending Clinician ARIEL DENSON Attending Clinician Unavailable Ariel Denson MD Attending Clinician Aron York DO Attending Clinician Leidy MUÑOZ, [facility] Attending Clinician Dale Junior Attending Clinician SHEY FRANCIS Attending Clinician Unavailable SHEY FRANCIS Attending Clinician Unavailable Brett Chaves MD Attending Clinician Bal Gold MD Attending Clinician BELINDA CONTRERAS Attending Clinician Unavailable Contreras PAC, Belinda S Attending Clinician JORGE WHITE Attending Clinician Unavailable Lorraine Trevizo MD S Attending Clinician Pierce MUÑOZ, Jorge Attending Clinician Benjamin MUÑOZ, Velasquez Attending Clinician [phone] Tor Montano MD Attending Clinician ANDREI MALHOTRA Attending Clinician Unavailable Akira Winter MD Attending Clinician Matt Ford MD Attending Clinician Rayn Cardozo MD Attending Clinician TOR MONTANO Attending Clinician Unavailable MARIA EUGENIA MANRIQUE Attending Clinician Unavailable ARIEL DENSON Admitting Clinician Unavailable Jarett MUÑOZ, Ariel Whitehead Admitting Clinician SHEY FRANCIS Admitting Clinician Unavailable JORGE WHITE Admitting Clinician Unavailable Pierce MUÑOZ, Jorge Admitting Clinician Matt Ford MD Admitting Clinician MARIA EUGENIA MANRIQUE Admitting Clinician Unavailable Payers Payer Name Policy Type Policy Number Effective Date Expiration Date Aminata patrick [facility] [id number] 2020 LONGTERM 00:00:00 MEDICAID SSI PENDING 2020 PENDING 00:00:00 Problems Condition Condition Condition Status Onset Resolution Last Treating Co mments Source Name Details Category Date Date Treatment Clinician Date Atypical Atypical Disease Active 2021-05 Unive rs chest pain chest pain 2-28 it y of 00:00: [place] 00 Medical Branch NSTEMI NSTEMI Disease Active 2021-05 Overview: Univer s (non-ST (non-ST 2-28 Formattin ity o f elevated elevated 00:00: g of this [place] myocardial myocardial 00 note Me dical infarction infarction might be Branch ) ) different from the original. Added automatic ally from request for surgery [id number] Chest Chest Disease Active 2021-05 Univers pain, pain, 2-10 ity of unspecifie unspecifie 00:[place] d type d type 00 Medical Branch Closed Closed Disease Active 2021-05 Univers right hip right hip 0-30 ity of fracture, fracture, 00:00[place] initial 00 Medical encounter encounter Bran ch Hypothyroi Hypothyroi Disease Active 2020-05 U nivers dism due dism due 0-26 ity of to to 00:00: [place] Salma' Salma' 00 Me dical s s Branch thyroiditi thyroiditi s s Hypoglycem Hypoglycem Disease Active 2020-05 U nivers ia ia 0-25 ity of 00:00: [place] 00 Medical Branch Diabetic Diabetic Disease Active Unive rs ketoacidos ketoacidos 6-20 it y of is with is with 00:00: [place] coma coma 00 Medical associated associated Br anch with type with type 2 diabetes 2 diabetes mellitus mellitus 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 [facility] protein[facility] protein-ca 0-10 Le kes lizbet lizbet 00:00: Medical malnutriti malnutriti 00 Ce nter on on Hyperchole Hyperchole Disease Active 2017-[address] steremia [facility]remia [facility] Thyroid Thyroid Disease Active 2017-[address] [facility] disease disease [facility]-08 [facility] 00 [place] Leukocytos Leukocytos Disease Active 2017-[address] is is 0-08 [facility] 00 [place] Anemia Anemia Disease Active 2017-[address] [facility] [address] 0-08 [facility] 00 [place] Provoked Provoked Disease Active 2017-05 [facility] [...] s Type 1 Type 1 Disease Active [facility] diabetes diabetes ity of mellitus mellitus [place] with with Medical hypoglycem hypoglycem Br anch ia ia Allergies, Adverse Reactions, Alerts Allergy Allergy Status Severity Reaction(s) Onset Inactive Treating Comm ents Source Name Type Date Date Clinician TRAMADOL DRUG Active N/V Univers INGREDI 11-03 ity of 00:00: [place] 00 Medical Branch Tramadol Propensi Active Nausea Univer s ty to and/or 11-03 ity of adverse Vomiting 00:00: [place] reaction 00 Medical s Branch Social History Social Habit Start Date Stop Date Quantity Comments Source History of tobacco Passive smoker Un iversity of use [place] [facility] History SDOH Social Unive rsity of Connections Get [place] Med ical Together Branch History SDOH Social Unive rsity of Connections [facility] Branch History SDOH Social Unive rsity of Connections [place] [facility] Membership Branch History SDOH Social Unive rsity of Connections [place] [facility] Meetings Branch History SDOH Social 2022-05-05 2022-05-05 7 Unive rsity of Connections Living 00:00:00 00:00:00 [place] Medical Branch History SDOH 2022-05-05 2022-05-05 5 University o f Alcohol Frequency 00:00:00 00:00:00 [place] M edical Branch History SDOH 2022-05-05 2022-05-05 1 University o f Alcohol Std Drinks 00:00:00 00:00:00 [place] Medical Branch History SDOH 2022-05-05 2022-05-05 1 University o f Alcohol Binge 00:00:00 00:00:00 [place] Medic al Branch History SDOH Social 2022-05-05 2022-05-05 5 Unive rsity of Connections Phone 00:00:00 00:00:00 [facility] edical Branch Exposure to 2022-04-24 2022-05-04 Not sure University of SARS-CoV-2 (event) 00:00:00 21:04:00 [facility] Branch Alcohol intake 2022-05-04 2022-05-04 Current drinker Unive rsity of 00:00:00 00:00:00 of alcohol [place] Medical (finding) Branch Alcohol Comment 2022-03-07 2022-03-07 socially Universit y of 00:00:00 00:00:[address] [facility] Branch Tobacco use and 2018-02-13 2018-02-[address] [facility] exposure 00:00:00 00:00:00 [facility] Sex Ass[birth year] At [birth year] [facility] 00:00:00 00:00:00 [facility] Smoking Status Start Date Stop Date Source Smokes tobacco daily 2022-04-17 00:00:00 [facility] [place] [facility] Medications Ordered Filled Start Stop Current Ordering Indication Dosage Frequency Signature Comments Components Source Medication Medication Date Date Medication? Clinician (SIG) Name Name pantoprazol 2023- Yes [id number] 40mg Take 1 Univers e 40 mg EC 05-08 tablet by ity of tablet 00:00: 05:59 mouth in [place] 00 :00 the Medical morning. Branch pantoprazol 2023- Yes [id number] 40mg Take 1 Univers e 40 mg EC 05-08 tablet by ity of tablet 00:00: 05:59 mouth in [place] 00 :00 the Medical morning. Branch pantoprazol 2023- Yes [id number] 40mg Take 1 Univers e 40 mg EC 05-08 tablet by ity of tablet 00:00: 05:59 mouth in [place] 00 :00 the Medical morning. Branch pantoprazol 2023- Yes [id number] 40mg Take 1 Univers e 40 mg EC 05-08 tablet by ity of tablet 00:00: 05:59 mouth in [place] 00 :00 the Medical morning. Branch pantoprazol 2023- Yes [id number] 40mg Take 1 Univers e 40 mg EC 05-08 tablet by ity of tablet 00:00: 05:59 mouth in [place] 00 :00 the Medical morning. Branch pantoprazol 2023- Yes [id number] 40mg Take 1 Univers e 40 mg EC 05-08 tablet by ity of tablet 00:00: 05:59 mouth in [place] 00 :00 the Medical morning. Branch pantoprazol 2023- Yes [id number] 40mg Take 1 Univers e 40 mg EC 05-08 tablet by ity of tablet 00:00: 05:59 mouth in [place] 00 :00 the Medical morning. Branch pantoprazol 2023- Yes [id number] 40mg Take 1 Univers e 40 mg EC 05-08 tablet by ity of tablet 00:00: 05:59 mouth in [place] 00 :00 the Medical morning. Branch pantoprazol 2023- Yes [id number] 40mg Take 1 Univers e 40 mg EC 05-08 tablet by ity of tablet 00:00: 05:59 mouth in [place] 00 :00 the Medical morning. Branch pantoprazol 2023- Yes [id number] 40mg Take 1 Univers e 40 mg EC 05-08 tablet by ity of tablet 00:00: 05:59 mouth in [place] 00 :00 the Medical morning. Branch atorvastati 2021-05 Yes 80mg 80 mg, Univ ers n (LIPITOR) Oral, QPM, it y of tablet 80 23:00: First dose [place] mg 00 (after Medical last Branch modificati on) on [facility] 05/07/22 at 1700, Until Discontinu ed, Routine atorvastati 2021-05- No 80mg 80 mg, Uni vers n (LIPITOR) 05-07 Oral, QPM, i ty of tablet 80 23:00: 23:28 First dose [place] mg 00 :33 (after Medical last Branch modificati on) on 05/07/22 at 1700, Until Discontinu ed, Routine insulin NPH 2021-05 Yes 10U 10 Units, U nivers and regular Subcutaneo it y of human 70-30 22:30: [place], [place] (70-30 00 First dose Medical U-[address] [facility] INSULIN) 05/07/22 100 unit/mL at 1630, (70-30) Until injection Discontinu 10 Units ed, Routine insulin NPH 2021-05- No 10U 10 Units, Univers and regular 05-07 Subcutaneo i ty of human 70-30 22:30: 23:28 [place], [place] (70-30 00 :33 First dose Medical U-[address] [facility] INSULIN) 05/07/22 100 unit/mL at 1630, (70-30) Until injection Discontinu 10 Units ed, Routine gabapentin 2021-05 Yes 100mg Take 100 Un lucila 100 mg 2-31 mg by ity of capsule 15:28: mouth in [place] the Medical morning. Branch Thyroid, 2021-05 Yes 120mg Take 120 Univ ers Pork, 2-31 mg by ity of (ARMOUR 15:28: mouth [place] THYROID) 31 daily. Medical 120 mg Branch tablet gabapentin 2021-05 Yes 100mg Take 100 Un luc[place] 100 mg 2-31 mg by ity of capsule 15:28: mouth in [place] 31 the Medical morning. Branch Thyroid, 2021-05 Yes 120mg Take 120 Univ ers Pork, 2-31 mg by ity of (ARMOUR 15:28: mouth [place] THYROID) 31 daily. Medical 120 mg Branch tablet gabapentin 2021-05 Yes 100mg Take 100 Un luc[place] 100 mg 2-31 mg by ity of capsule 15:28: mouth in [place] 31 the Medical morning. Branch Thyroid, 2021-05 Yes 120mg Take 120 Univ ers Pork, 2-31 mg by ity of (ARMOUR 15:28: mouth [place] THYROID) 31 daily. Medical 120 mg Branch tablet gabapentin 2021-05 Yes 100mg Take 100 Un luc[place] 100 mg 2-31 mg by ity of capsule 15:28: mouth in [place] 31 the Medical morning. Branch Thyroid, 2021-05 Yes 120mg Take 120 Univ ers Pork, 2-31 mg by ity of (ARMOUR 15:28: mouth [place] THYROID) 31 daily. Medical 120 mg Branch tablet gabapentin 2021-05 Yes 100mg Take 100 Un [place] 100 mg 2-31 mg by ity of capsule 15:28: mouth in [place] 31 the Medical morning. Branch Thyroid, 2021-05 Yes 120mg Take 120 Univ ers Pork, 2-31 mg by ity of (ARMOUR 15:28: mouth [place] THYROID) 31 daily. Medical 120 mg Branch tablet gabapentin 2021-05 Yes 100mg Take 100 Un [place] 100 mg 2-31 mg by ity of capsule 15:28: mouth in [place] 31 the Medical morning. Branch Thyroid, 2021-05 Yes 120mg Take 120 Univ ers Pork, 2-31 mg by ity of (ARMOUR 15:28: mouth [place] THYROID) 31 daily. Medical 120 mg Branch tablet gabapentin 2021-05 Yes 100mg Take 100 Un [place] 100 mg 2-31 mg by ity of capsule 15:28: mouth in [place] 31 the Medical morning. Branch Thyroid, 2021-05 Yes 120mg Take 120 Univ ers [place], 2-31 mg by ity of (ARMOUR 15:28: mouth [place] THYROID) 31 daily. Medical 120 mg Branch tablet gabapentin 2021-05 Yes 100mg Take 100 Un [place] 100 mg 2-31 mg by ity of capsule 15:28: mouth in [place] 31 the Medical morning. Branch Thyroid, 2021-05 Yes 120mg Take 120 Univ ers [place], 2-31 mg by ity of (ARMOUR 15:28: mouth [place] THYROID) 31 daily. Medical 120 mg Branch tablet gabapentin 2021-05 Yes 100mg Take 100 Un [place] 100 mg 2-31 mg by ity of capsule 15:28: mouth in [place] 31 the Medical morning. Branch Thyroid, 2021-05 Yes 120mg Take 120 Univ ers [place], 2-31 mg by ity of (ARMOUR 15:28: mouth [place] THYROID) 31 daily. Medical 120 mg Branch tablet gabapentin 2021-05 Yes 100mg Take 100 Un lucila 100 mg 2-31 mg by ity of capsule 15:28: mouth in [place] 31 the Medical morning. Branch Thyroid, 2021-05 Yes 120mg Take 120 Univ ers [place], 2-31 mg by ity of (ARMOUR 15:28: mouth [place] THYROID) 31 daily. Medical 120 mg Branch tablet Sliding 2021-05 Yes Subcutaneo Univ ers Scale 2-31 us, Q4H, ity of Insulin - 15:15: First dose [place] Lispro 00 (after Medical (HumaLOG) + last Branch Fsbg modificati Testing on) on 05/07/22 at 0915, Until Discontinu ed, Routine Sliding 2021-05 No Subcutaneo Uni vers Scale 05-07 us, Q4H, ity of Insulin - 15:15: 23:28 First dose [place] Lispro 00 :33 (after Medical (HumaLOG) + last Branch Fsbg modificati Testing on) on 05/07/22 at 0915, Until Discontinu ed, Routine insulin NPH 2021-05 Yes 20U 20 Units, U nivers (HUMULIN N) Subcutaneo it y of injection 15:00: us, [place] 20 Units 00 QAM+HS, Medical First dose Branch (after last modificati on) on 05/07/22 at 0900, Until Discontinu ed, Routine insulin NPH 2021-05- No 20U 20 Units, Univers (HUMULIN N) 05-07 Subcutaneo i ty of injection 15:00: 23:28 us, [place] 20 Units 00 :33 QAM+HS, Medical First dose Branch (after last modificati on) on 05/07/22 at 0900, Until Discontinu ed, Routine insulin 2021-05 10U 10 Units, [place] [facility] ers lispro 05-07 Subcutaneo ity of (human) 14:00: 18:49 , D [place] (HumaLOG 00 :20 MEALS, Medical U-100) First dose Branch injection (after 10 Units last modificati on) on 05/07/22 at 0800, Until Discontinu ed, Routine insulin 2021-05 No 20U inject 20 [place] [facility] ers detemir 05-07 Units ity of U-100 100 13:35: 00:00 under the [place] unit/mL 50 :00 skin at Medical injection bedtime. Branch insulin 2021-05 No 20U inject 20 [place] [facility] ers detemir 05-07 Units ity of U-100 100 13:35: 00:00 under the [place] unit/mL 50 :00 skin at Medical injection bedtime. Branch magnesium 2021-05- No 4g 4 g, IV [place] [facility] ers sulfate in 05-07 Piggyback, it y of water 4 10:45: 12:23 at 25 [place] gram/50 mL 00 :00 mL/hr Medical (8 %) IV Administer Branc h Piggyback 4 over 120 g Minutes, ONCE, 1 dose, On 05/07/22 at 0445, Routine atorvastati 2021-05 Yes [id number] 80mg Take 2 Univers n 40 mg 2-31 tablets by ity of tablet 00:00: mouth [place] 00 every Medical evening. Branch insulin NPH 2021-05 Yes [id number] 10U inject 10 Univers and regular 2-31 Units ity of human 70-30 00:00: under the [place] 100 unit/mL 00 skin 2 Medica l (70-30) (two) Branch injection times daily before breakfast and dinner. insulin NPH 2021-05 Yes [id number] 20U inject 20 Univers 100 unit/mL -31 Units ity of injection 00:00: under the [place] 00 skin every Medical morning Branch and evening. atorvastati 2021-05 Yes [id number] 80mg Take 2 Univers n 40 mg 2-31 tablets by ity of tablet 00:00: mouth [place] 00 every Medical evening. Branch insulin NPH 2021-05 Yes [id number] 10U inject 10 Univers and regular 2-31 Units ity of human 70-30 00:00: under the [place] 100 unit/mL 00 skin 2 Medica l (70-30) (two) Branch injection times daily before breakfast and dinner. insulin NPH 2021-05 Yes [id number] 20U inject 20 Univers 100 unit/mL 2-31 Units ity of injection 00:00: under the [place] 00 skin every Medical morning Branch and evening. atorvastati 2021-05 Yes [id number] 80mg Take 2 Univers n 40 mg 2-31 tablets by ity of tablet 00:00: mouth [place] 00 every Medical evening. Branch insulin NPH 2021-05 Yes [id number] 10U inject 10 Univers and regular 2-31 Units ity of human 70-30 00:00: under the [place] 100 unit/mL 00 skin 2 Medica l (70-30) (two) Branch injection times daily before breakfast and dinner. insulin NPH 2021-05 Yes [id number] 20U inject 20 Univers 100 unit/mL 2-31 Units ity of injection 00:00: under the [place] 00 skin every Medical morning Branch and evening. atorvastati 2021-05 Yes [id number] 80mg Take 2 Univers n 40 mg 2-31 tablets by ity of tablet 00:00: mouth [place] 00 every Medical evening. Branch insulin NPH 2021-05 Yes [id number] 10U inject 10 Univers and regular 2-31 Units ity of human 70-30 00:00: under the [place] 100 unit/mL 00 skin 2 Medica l (70-30) (two) Branch injection times daily before breakfast and dinner. insulin NPH 2021-05 Yes [id number] 20U inject 20 Univers 100 unit/mL 2-31 Units ity of injection 00:00: under the [place] 00 skin every Medical morning Branch and evening. atorvastati 2021-05 Yes [id number] 80mg Take 2 Univers n 40 mg 2-31 tablets by ity of tablet 00:00: mouth [place] 00 every Medical evening. Branch insulin NPH 2021-05 Yes [id number] 10U inject 10 Univers and regular 2-31 Units ity of human 70-30 00:00: under the [place] 100 unit/mL 00 skin 2 Medica l (70-30) (two) Branch injection times daily before breakfast and dinner. insulin NPH 2021-05 Yes [id number] 20U inject 20 Univers 100 unit/mL 2-31 Units ity of injection 00:00: under the [place] 00 skin every Medical morning Branch and evening. atorvastati 2021-05 Yes [id number] 80mg Take 2 Univers n 40 mg 2-31 tablets by ity of tablet 00:00: mouth [place] 00 every Medical evening. Branch insulin NPH 2021-05 Yes [id number] 10U inject 10 Univers and regular 2-31 Units ity of human 70-30 00:00: under the [place] 100 unit/mL 00 skin 2 Medica l (70-30) (two) Branch injection times daily before breakfast and dinner. insulin NPH 2021-05 Yes [id number] 20U inject 20 Univers 100 unit/mL 2-31 Units ity of injection 00:00: under the [place] 00 skin every Medical morning Branch and evening. atorvastati 2021-05 Yes [id number] 80mg Take 2 Univers n 40 mg 2-31 tablets by ity of tablet 00:00: mouth [place] 00 every Medical evening. Branch insulin NPH 2021-05 Yes [id number] 10U inject 10 Univers and regular 2-31 Units ity of human 70-30 00:00: under the [place] 100 unit/mL 00 skin 2 Medica l (70-30) (two) Branch injection times daily before breakfast and dinner. insulin NPH 2021-05 Yes [id number] 20U inject 20 Univers 100 unit/mL 2-31 Units ity of injection 00:00: under the [place] 00 skin every Medical morning Branch and evening. atorvastati 2021-05 Yes [id number] 80mg Take 2 Univers n 40 mg 2-31 tablets by ity of tablet 00:00: mouth [place] 00 every Medical evening. Branch insulin NPH 2021-05 Yes [id number] 10U inject 10 Univers and regular 2-31 Units ity of human 70-30 00:00: under the [place] 100 unit/mL 00 skin 2 Medica l (70-30) (two) Branch injection times daily before breakfast and dinner. insulin NPH 2021-05 Yes [id number] 20U inject 20 Univers 100 unit/mL 2-31 Units ity of injection 00:00: under the [place] 00 skin every Medical morning Branch and evening. atorvastati 2021-05 Yes [id number] 80mg Take 2 Univers n 40 mg 2-31 tablets by ity of tablet 00:00: mouth [place] 00 every Medical evening. Branch insulin NPH 2021-05 Yes [id number] 10U inject 10 Univers and regular 2-31 Units ity of human 70-30 00:00: under the [place] 100 unit/mL 00 skin 2 Medica l (70-30) (two) Branch injection times daily before breakfast and dinner. insulin NPH 2021-05 Yes [id number] 20U inject 20 Univers 100 unit/mL 2-31 Units ity of injection 00:00: under the [place] 00 skin every Medical morning Branch and evening. atorvastati 2021-05 Yes [id number] 80mg Take 2 Univers n 40 mg 2-31 tablets by ity of tablet 00:00: mouth [place] 00 every Medical evening. Branch insulin NPH 2021-05 Yes [id number] 10U inject 10 Univers and regular 2-31 Units ity of human 70-30 00:00: under the [place] 100 unit/mL 00 skin 2 Medica l (70-30) (two) Branch injection times daily before breakfast and dinner. insulin NPH 2021-05 Yes [id number] 20U inject 20 Univers 100 unit/mL 2-31 Units ity of injection 00:00: under the [place] 00 skin every Medical morning Branch and evening. metoprolol 2021-05- Yes [id number] 25mg Take 1 Univers tartrate 25 05-08 tablet by it y of mg tablet 00:00: 05:59 mouth in [place] 00 :00 the Medical morning Branch and 1 tablet in the evening. nitroglycer 2021-05- Yes [id number] .4mg Place 1 Univers in 0.4 mg 05-08 tablet ity of sublingual 00:00: 05:59 under the [place] tablet 00 :00 tongue Medical every 5 Branch (five) minutes as needed for Chest pain. metoprolol 2021-05- Yes [id number] 25mg Take 1 Univers tartrate 25 05-08 tablet by it y of mg tablet 00:00: 05:59 mouth in [place] 00 :00 the Medical morning Branch and 1 tablet in the evening. nitroglycer 2021-05- Yes [id number] .4mg Place 1 Univers in 0.4 mg 05-08 tablet ity of sublingual 00:00: 05:59 under the [place] tablet 00 :00 tongue Medical every 5 Branch (five) minutes as needed for Chest pain. metoprolol 2021-05- Yes [id number] 25mg Take 1 Univers tartrate 25 05-08 tablet by it y of mg tablet 00:00: 05:59 mouth in [place] 00 :00 the Medical morning Branch and 1 tablet in the evening. nitroglycer 2021-05- Yes [id number] .4mg Place 1 Univers in 0.4 mg 05-08 tablet ity of sublingual 00:00: 05:59 under the [place] tablet 00 :00 tongue Medical every 5 Branch (five) minutes as needed for Chest pain. metoprolol 2021-05- Yes [id number] 25mg Take 1 Univers tartrate 25 05-08 tablet by it y of mg tablet 00:00: 05:59 mouth in [place] 00 :00 the Medical morning Branch and 1 tablet in the evening. nitroglycer 2021-05- Yes [id number] .4mg Place 1 Univers in 0.4 mg 05-08 tablet ity of sublingual 00:00: 05:59 under the [place] tablet 00 :00 tongue Medical every 5 Branch (five) minutes as needed for Chest pain. metoprolol 2021-05- Yes [id number] 25mg Take 1 Univers tartrate 25 05-08 tablet by it y of mg tablet 00:00: 05:59 mouth in [place] 00 :00 the Medical morning Branch and 1 tablet in the evening. nitroglycer 2021-05- Yes [id number] .4mg Place 1 Univers in 0.4 mg 05-08 tablet ity of sublingual 00:00: 05:59 under the [place] tablet 00 :00 tongue Medical every 5 Branch (five) minutes as needed for Chest pain. metoprolol 2021-05- Yes [id number] 25mg Take 1 Univers tartrate 25 05-08 tablet by it y of mg tablet 00:00: 05:59 mouth in [place] 00 :00 the Medical morning Branch and 1 tablet in the evening. nitroglycer 2021-05- Yes [id number] .4mg Place 1 Univers in 0.4 mg 05-08 tablet ity of sublingual 00:00: 05:59 under the [place] tablet 00 :00 tongue Medical every 5 Branch (five) minutes as needed for Chest pain. metoprolol 2021-05- Yes [id number] 25mg Take 1 Univers tartrate 25 05-08 tablet by it y of mg tablet 00:00: 05:59 mouth in [place] 00 :00 the Medical morning Branch and 1 tablet in the evening. nitroglycer 2021-05- Yes [id number] .4mg Place 1 Univers in 0.4 mg 05-08 tablet ity of sublingual 00:00: 05:59 under the [place] tablet 00 :00 [facility] Medical every 5 Branch (five) minutes as needed for Chest pain. metoprolol 2021-05- Yes [id number] 25mg Take 1 Univers tartrate 25 05-08 tablet by it y of mg tablet 00:00: 05:59 mouth in [place] 00 :00 the Medical morning Branch and 1 tablet in the evening. nitroglycer 2021-05- Yes [id number] .4mg Place 1 Univers in 0.4 mg 05-08 tablet ity of sublingual 00:00: 05:59 under the [place] tablet 00 :00 [facility] Medical every 5 Branch (five) minutes as needed for Chest pain. metoprolol 2021-05- Yes [id number] 25mg Take 1 Univers tartrate 25 05-08 tablet by it y of mg tablet 00:00: 05:59 mouth in [place] 00 :00 the Medical morning Branch and 1 tablet in the evening. nitroglycer 2021-05- Yes [id number] .4mg Place 1 Univers in 0.4 mg 05-08 tablet ity of sublingual 00:00: 05:59 under the [place] tablet 00 :00 tongue Medical every 5 Branch (five) minutes as needed for Chest pain. metoprolol 2021-05- Yes [id number] 25mg Take 1 Univers tartrate 25 05-08 tablet by it y of mg tablet 00:00: 05:59 mouth in [place] 00 :00 the Medical morning Branch and 1 tablet in the evening. nitroglycer 2021-05- Yes [id number] .4mg Place 1 Univers in 0.4 mg 05-08 tablet ity of sublingual 00:00: 05:59 under the [place] tablet 00 :00 tongue Medical every 5 Branch (five) minutes as needed for Chest pain. insulin 2021-05- No 10U 10 Units, Univ ers lispro 05-07 Subcutaneo ity of (human) 23:00: 13:05 , TID [place] (HumaLOG 00 :11 MEALS, Medical U-100) First dose Branch injection on Mon 10 Units 05/06/22 at 1700, Until Discontinu ed, Routine Sliding 2021-05- No Subcutaneo Uni vers Scale 05-07 us, Q4H, ity of Insulin - 22:00: 15:10 First dose [place] Lispro 00 :29 (after Medical (HumaLOG) + last Branch Fsbg modificati Testing on) on Mon05/06/22 at 1600, Until Discontinu ed, Routine iopamidol 2021-05- No ONCE INTRA U nivers (ISOVUE 05-06 PROCEDURE, ity o f 370-500 mL) 17:49: 18:04 Starting [place] injection 09 :47 on Mon Medical 05/06/22 Branch at 1149, Until Mon05/06/22 at 1204, Routine, CV Intraproce dure NaCl 0.9% 2021-05- No CONTINUOUS U nivers (NS) bolus 05-06 PRN, ity of infusion 17:30: 17:30 [place] 36 :36 on Mon Medical 05/06/22 Branch at 1130, Until Discontinu ed, STAT, CV Intraproce dure adenosine 6 2021-05- No ONCE INTRA Univers mg/1000 mL 05-06 PROCEDURE, it y of INTRACORONA 17:30: 18:04 [place] RY 02 :47 on Fri Medical injection 05/06/22 Branch for CATH at 1130, LAB Until Mon05/06/22 at 1204, Routine, CV Intraproce dure heparin 2021-05- No ONCE INTRA Uni vers 1,000 05-06 PROCEDURE, ity of unit/mL 16:51: 18:04 Starting [place] injection 14 :47 on Mon Medical 05/06/22 Branch at 1051, Until Mon05/06/22 at 1204, Routine, CV Intraproce dure nitroglycer 2021-05- No ONCE INTRA Univers in (TRIDIL) 05-06 PROCEDURE, i ty of 2 mg in 10 16:51: 18:04 [place] D5W for 02 :47 on Mon Medical Cardiac 05/06/22 Branch Cath at 1051, Until Mon05/06/22 at 1204, Routine, CV Intraproce dure lidocaine 2021-05- No ONCE INTRA U nivers 1% (PF) 05-06 PROCEDURE, ity o f (XYLOCAINE) 16:48: 18:04 Starting [place] injection 21 :47 on Mon Medical 05/06/22 Branch at 1048, Until Mon05/06/22 at 1204, Routine, CV Intraproce dure midazolam 2021-05- No ONCE INTRA U nivers (VERSED) 05-06 PROCEDURE, ity of injection 16:48: 18:04 Starting [place] 09 :47 on Mon Medical 05/06/22 Branch at 1048, Until Mon05/06/22 at 1204, Routine, CV Intraproce dure FENTanyl PF 2021-05- No ONCE INTRA Univers (SUBLIMAZE 05-06 PROCEDURE, it y of (PF)) 16:48: 18:04 Starting [place] injection 02 :47 on Mon Medical 05/06/22 Branch at 1048, Until Mon05/06/22 at 1204, Routine, CV Intraproce dure magnesium 2021-05- No 4g 4 g, IV Univ ers sulfate in 05-07 Piggyback, it y of water 4 16:15: 00:02 at 25 [place] gram/50 mL 00 :00 mL/hr Medical (8 %) IV Administer Branc h Piggyback 4 over 120 g Minutes, ONCE, 1 dose, On 05/06/22 at 1015, Routine insulin 2021-05 No 5U 5 Units, Unive rs regular 2-30 12-30 Subcutaneo ity o f human 13:00: 12:35 us, ONCE, [place] (HUMULIN R) 00 :00 1 dose, On Me dical injection 5 Fri Branch Units 05/06/22 at 0700, Routine
Indicatio n for insulin: Hyperglyce yvan insulin 2021-05 No 10U 10 Units, Univ ers regular 2-30 12-30 Subcutaneo ity o f human 06:30: 05:57 us, ONCE, [place] (HUMULIN R) 00 :00 1 dose, On Me dical injection Fri Branch 10 Units 05/06/22 at 0030, Routine
Indicatio n for insulin: Hyperglyce yvan insulin 2021-05 No 20U 20 Units, Univ ers glargine 2-30 12-30 Subcutaneo ity of (LANTUS 06:00: 16:25 us, [facility], [place] U-100) 00 :46 First dose Medical injection on Fri Branch 20 Units 05/06/22 at 0000, Until Discontinu ed, Routine glucagon 2021-05 Yes 1mg 1 mg, Univers (GLUCAGEN 2-30 Intramuscu ity of DIAGNOSTIC 05:43: lar, PRN, [place] KIT) 43 Starting Medical injection 1 on [place] Branch mg 05/05/22 at 2343, Until Discontinu ed, MARCOS, Blood Glucose < or = 70 mg/dL and patient is unable to swallow or has mental changes. dextrose 50 2021-05 Yes 25mL 25 mL, Univ ers % in water 2-30 Slow IV ity of (D50W) 05:43: Push, PRN, [place] injection 43 Starting Medica l 25 mL on [place] Branch 05/05/22 at 2343, Until Discontinu ed, MARCOS, Blood Glucose < or = 70 mg/dL and patient is unable to swallow or has mental status changes. glucagon 2021-05 1mg 1 mg, Univers (GLUCAGEN 2-30 12-31 Intramuscu ity of DIAGNOSTIC 05:43: 23:28 lar, PRN, [place] KIT) 43 :33 Starting Medical injection 1 on [facility] mg 05/05/22 at 2343, Until 05/07/22 at 1728, MARCOS, Blood Glucose < or = 70 mg/dL and patient is unable to swallow or has mental changes. dextrose 50 2021-05 No 25mL 25 mL, Uni vers % in water 05-07 Slow IV ity o f (D50W) 05:43: 23:28 Push, PRN, [place] injection 43 :33 Starting Medica l 25 mL on [facility] 05/05/22 at 2343, Until 05/07/22 at 1728, MARCOS, Blood Glucose < or = 70 mg/dL and patient is unable to swallow or has mental status changes. atorvastati 2021-05 No 40mg 40 mg, Uni vers n (LIPITOR) 05-07 Oral, QPM, i ty of tablet 40 23:00: 17:05 First dose [place] mg 00 :43 on [facility] 05/05/22 Branch at 1700, Until Discontinu ed, Routine metoprolol 2021-05 Yes 25mg 25 mg, Unive rs tartrate Oral, BID, ity o f (LOPRESSOR) 17:15: First dose [place] tablet 25 00 on [facility] 05/05/22 Branch at 1115, Until Discontinu ed, Routine metoprolol 2021-05 No 25mg 25 mg, Univ ers tartrate 05-07 Oral, BID, ity of (LOPRESSOR) 17:15: 23:28 First dose [place] tablet 25 00 :33 on [facility] 05/05/22 Branch at 1115, Until Discontinu ed, Routine pantoprazol 2021-05 Yes 40mg 40 mg, Univ ers e Oral, ity of (PROTONIX) 15:00: DAILY, [place] EC tablet 00 First dose Medi rogers 40 mg on [facility] 05/05/22 at 0900, Until Discontinu ed, Routine gabapentin 2021-05 Yes 100mg 100 mg, Uni vers (NEURONTIN) Oral, ity of capsule 100 15:00: DAILY, [place] mg 00 First dose Medical on [facility] 05/05/22 at 0900, Until Discontinu ed, Routine aspirin 2021-05 Yes 81mg 81 mg, Univers chewable Oral, ity of tablet 81 15:00: DAILY, [place] mg 00 First dose Medical on [facility] Branch 05/05/22 at 0900, Until Discontinu ed, Routine pantoprazol 2021-05 No 40mg 40 mg, Uni vers e 05-07 Oral, ity of (PROTONIX) 15:00: 23:28 DAILY, [place] EC tablet 00 :33 First dose Medi rogers 40 mg on [facility] Branch 05/05/22 at 0900, Until Discontinu ed, Routine gabapentin 2021-05 No 100mg 100 mg, Un [place] (NEURONTIN) 05-07 Oral, ity of capsule 100 15:00: 23:28 DAILY, [place] mg 00 :33 First dose Medical on [facility] 05/05/22 at 0900, Until Discontinu ed, Routine aspirin 2021-05 No 81mg 81 mg, Univers chewable 05-07 Oral, ity of tablet 81 15:00: 23:28 DAILY, [place] mg 00 :33 First dose Medical on [facility] 05/05/22 at 0900, Until Discontinu ed, Routine ticagrelor 2021-05 Yes 90mg 90 mg, Unive rs (BRILINTA) Oral, BID, ity of tablet 90 14:00: First dose [place] mg 00 on [facility] 05/05/22 Branch at 0800, Until Discontinu ed, Routine ticagrelor 2021-05 No 90mg 90 mg, Univ ers (BRILINTA) 05-07 Oral, BID, it y of tablet 90 14:00: 23:28 First dose [place] mg 00 :33 on [facility] 05/05/22 Branch at 0800, Until Discontinu ed, Routine Sliding 2021-05 Subcutaneo Uni vers Scale 05-06 us, TID ity of Insulin - 14:00: 05:43 MEALS+HS, [place] Lispro 00 :17 First dose Medical (HumaLOG) + on [facility] Fsbg 05/05/22 Testing at 0800, Until Discontinu ed, Routine insulin 2021-05 No 10U 10 Units, Univ ers lispro 05-06 Subcutaneo ity of (human) 13:30: 16:25 us, BIDAC, [place] (HumaLOG 00 :46 First dose Medic al U-100) on [place] Branch injection 05/05/22 10 Units at 0730, Until Discontinu ed, Routine thyroid 2021-05 Yes 120mg 120 mg, Univer s (ARMOUR Oral, ity of THYROID) 12:00: QAM-0600, [place] tablet 120 00 First dose Med ical mg on [place] Branch 05/05/22 at 0600, Until Discontinu ed thyroid 2021-05 No 120mg 120 mg, Unive rs (ARMOUR 05-07 Oral, ity of THYROID) 12:00: 23:28 QAM-0600, [place] tablet 120 00 :33 First dose Med ical mg on [place] Branch 05/05/22 at 0600, Until Discontinu ed dextrose 2021-05 Yes 250mL 250 mL, IV Un [place] 10% (D10W) Infusion, ity of bolus 04:04: PRN - SEE [place] infusion 20 INSTRUCTIO Medic al 250 mL NS, Branch Administer over 60 Minutes, Other, If blood glucose is < or = 70 mg/dL and patient is unable to swallow or has mental status changes, Starting on Mon05/04/22 at 2204
If blood glucose is < or = 70 mg/dL and patient is unable to swallow or has mental status changes (Give glucagon order if patient needs fluid restrictio n): IF IV access available: Dextrose 10%. 1. 125 mL (? bag) of D10W IV infusion - equivalent to 12.5 g dextrose 2. Blood glucose - draw blood glucose 15 minutes after D10W Administra tion. 3. If blood glucose is < 80 mg/dL, repeat.
dextrose 2021-05 No 250mL 250 mL, IV U nivers 10% (D10W) 05-07 Infusion, ity of bolus 04:04: 23:28 PRN - SEE [place] infusion 20 :33 INSTRUCTIO Medic al 250 mL NS, Branch Administer over 60 Minutes, Other, If blood glucose is < or = 70 mg/dL and patient is unable to swallow or has mental status changes, Starting on Mon05/04/22 at 2204
If blood glucose is < or = 70 mg/dL and patient is unable to swallow or has mental status changes (Give glucagon order if patient needs fluid restrictio n): IF IV access available: Dextrose 10%. 1. 125 mL (? bag) of D10W IV infusion - equivalent to 12.5 g dextrose 2. Blood glucose - draw blood glucose 15 minutes after D10W Administra tion. 3. If blood glucose is < 80 mg/dL, repeat.
glucagon 2021-05 Yes 1mg 1 mg, Univers (GLUCAGEN Intramuscu ity of DIAGNOSTIC 04:04: lar, PRN, [place] KIT) 15 Starting Medical injection 1 on Mon Branch mg 05/04/22 at 2204, Until Discontinu ed, MARCOS, Blood Glucose < or = 70 mg/dL and patient is unable to swallow or has mental changes. glucagon 2021-05- No 1mg 1 mg, Univers (GLUCAGEN 05-07 Intramuscu ity of DIAGNOSTIC 04:04: 23:28 lar, PRN, [place] KIT) 15 :33 Starting Medical injection 1 on Mon Branch mg 05/04/22 at 2204, Until 05/07/22 at 1728, MARCOS, Blood Glucose < or = 70 mg/dL and patient is unable to swallow or has mental changes. HEPARIN 2021-05- No 60U/kg 3,750 Univer s SODIUM - 12-29 Units (60 ity of (PORCINE) 04:00: 11:21 Units/kg [place] 1,000 00 :00 ?62.5 kg), Medical UNIT/ML IV Push, Branch BOLUS ACS ONCE, 1 ORDER SET dose, On Mon05/04/22 at 2200, MARCOS heparin 2021-05- No 0U/h 0-2,150 Univer s 25,000 2- 12-30 Units/hr ity of Units/250 03:47: 22:43 (0-21.5 [place] mL 27 :51 mL/hr), IV Medical (Premixed Infusion, Branc h Bag) in TITRATE, 0.45 % NS Parameters in Admin. Instr., Starting on Mon05/04/22 at 2147
In itiate infusion at 12 units/kg/h r calculated as: 750 Units/hr (Maximum initial rate: 1,000 Units/hr, then adjust dose as needed per aPTT).&nbs p; CA UTION - If LMWH given in ER, AVOID bolus and start next dose/drip 12 hrs after ER dosage.&nb sp; M ust program rate using programmab le infusion pump.&nbsp ; Mel ck with the ordering provider first prior to any administra tion should the patient be on existing/a dditional anticoagul ant therapy. Range, Dosing and Testing: &nbs p;FOR [facility], AND [facility] &nbs p; - aPTT < 35: & nbsp;Bolus 5000 units, increase rate 300 units/hr&n bsp; - aPTT 35-44:&nbs p; [place] dilma 3000 units, increase rate 200 units/hr&n bsp; - aPTT 45-54:&nbs p; In crease rate 100 units/hr&n bsp; - aPTT 55-85:&nbs p; NO CHANGE&nbs p; - aPTT 86-95:&nbs p; De crease rate 100 units/hr&n bsp; - aPTT 96-120:&nb sp; H old 30 minutes, decrease rate 150 units/hr&n bsp; - aPTT > 120: Hold 60 minutes, decrease rate 200 units/hr&n bsp; Check aPTT 6 hours after initiation , then Q6H after every change, aPTT Q12H once therapeuti c levels are reached.&n bsp;
&nbs p;FOR [facility] ONLY - aPTT < 40: & nbsp;Bolus 5000 units, increase rate 300 units/hr&n bsp; - aPTT 40-49:&nbs p; [place] dilma 3000 units, increase rate 200 units/hr&n bsp; - aPTT 50-59:&nbs p; In crease rate 100 units/hr&n bsp; - aPTT 60-85:&nbs p;&nbs p;NO CHANGE&nbs p; - aPTT 86-95:&nbs p; De crease rate 100 units/hr&n bsp; - aPTT 96-120:&nb sp; H old 30 minutes, decrease rate 150 units/hr&n bsp; - aPTT > 120: Hold 60 minutes, decrease rate 200 units/hr&n bsp; Check aPTT 6 hours after initiation , then Q6H after every change, aPTT Q12H once therapeuti c levels are reached.&a mp;nbsp;&n bsp; DO NOT ADJUST INITIAL BOLUS OR INITIAL INFUSION RATE.
nitroglycer 2021-05 Yes .4mg 0.4 mg, Uni vers in Sublingual ity of (NITROSTAT) 03:18: , Q5MIN [place] sublingual 59 PRN, Medical tablet 0.4 Starting Branc h mg on Mon05/04/22 at 2118, Until Discontinu ed, Routine, Chest pain nitroglycer 2021-05- No .4mg 0.4 mg, Un [place] in 05-07 Sublingual ity of (NITROSTAT) 03:18: 23:28 , Q5MIN [place] sublingual 59 :33 PRN, Medical tablet 0.4 Starting Branc h mg on Mon05/04/22 at 2118, Until 05/07/22 at 1728, Routine, Chest pain acetaminoph 2021-05 Yes 650mg 650 mg, Un [place] Oral, ity of (TYLENOL) 03:18: Q6HPRN, [place] tablet 650 40 Starting Medic al mg on Mon05/04/22 at 2118, Until Discontinu ed, Routine, Pain (scale 1-3) acetaminoph 2021-05 No 650mg 650 mg, U nivers en 05-07 Oral, ity of (TYLENOL) 03:18: 23:28 Q6HPRN, [place] tablet 650 40 :33 Starting Medic al mg on Mon05/04/22 at 2118, Until 05/07/22 at 1728, Routine, Pain (scale 1-3) insulin NPH 2021-05 Yes 20U 20 Units, U nivers (HUMULIN N) 2-16 Subcutaneo it y of injection 15:00: us, DAILY, [place] 20 Units 00 First dose Medic al (after Branch last modificati on) on Mon04/22/22 at 0900, Until Discontinu ed, Routine insulin NPH 2021-05 Yes [id number] 20U inject 20 [facility] 100 unit/mL 2-16 Units ity of injection 00:00: under the [place] 00 skin in [facility] morning and 16 Units under the skin every evening. insulin NPH 2021-05 Yes [id number] 20U inject 20 Univers 100 unit/mL 2-16 Units ity of injection 00:00: under the [place] 00 skin in [facility] morning and 16 Units under the skin every evening. insulin NPH 2021-05 Yes [id number] 20U inject 20 [facility] 100 unit/mL 2-16 Units ity of injection 00:00: under the [place] 00 skin in [facility] morning and 16 Units under the skin every evening. insulin NPH 2021-05 Yes [id number] 20U inject 20 Univers 100 unit/mL 2-16 Units ity of injection 00:00: under the [place] 00 skin in [facility] morning and 16 Units under the skin every evening. insulin NPH 2021-05 Yes [id number] 20U inject 20 [facility] 100 unit/mL 2-16 Units ity of injection 00:00: under the [place] [address] [facility] morning and 16 Units under the skin every evening. insulin NPH 2021-05 Yes [id number] 20U inject 20 Univers 100 unit/mL 2-16 Units ity of injection 00:00: under the [place] [address] [facility] morning and 16 Units under the skin every evening. insulin NPH 2021-05 Yes [id number] 20U inject 20 [facility] 100 unit/mL 2-16 Units ity of injection 00:00: under the [place] [address] [facility] morning and 16 Units under the skin every evening. insulin NPH 2021-05 Yes [id number] 20U inject 20 [facility] 100 unit/mL 2-16 Units ity of injection 00:00: under the [place] 00 skin in [facility] morning and 16 Units under the skin every evening. insulin NPH 2021-05- No [id number] 20U inject 20 Univers 100 unit/mL 2-16 12-31 Units ity of injection 00:00: 00:00 under the [place] 00 :00 skin in [facility] morning and 16 Units under the skin every evening. insulin NPH 2021-05- No [id number] 20U inject 20 Univers 100 unit/mL 2-16 12-31 Units ity of injection 00:00: 00:00 under the [place] 00 :00 skin in [facility] morning and 16 Units under the skin every evening. insulin NPH 2021-05 Yes 16U 16 Units, U nivers (HUMULIN N) 2-15 Subcutaneo it y of injection 23:00: us, QPM, [place] 16 Units 00 First dose Medic al on [facility] Branch 04/21/22 at 1700, Until Discontinu ed, Routine insulin 2021-05 Yes 10U 10 Units, Unive rs lispro 2-15 Subcutaneo ity of (human) 23:00: us, TID [place] (HumaLOG 00 MEALS, Medical U-100) First dose Branch injection (after 10 Units last modificati on) on [facility] 04/21/22 at 1700, Until Discontinu ed insulin NPH 2021-05 Yes 16U 16 Units, U nivers (HUMULIN N) 2-15 Subcutaneo it y of injection 23:00: us, QPM, [place] 16 Units 00 First dose Medic al (after Branch last modificati on) on [facility] 04/21/22 at 1700, Until Discontinu ed, Routine Sliding 2021-05 Yes Subcutaneo Univ ers Scale 2-15 us, Q4H, ity of Insulin - 18:00: First dose [place] Lispro 00 (after Medical (HumaLOG) + last Branch Fsbg modificati Testing on) on [facility] 04/21/22 at 1200, Until Discontinu ed, Routine insulin NPH 2021-05 Yes 20U 20 Units, U nivers (HUMULIN N) 2-15 Subcutaneo it y of injection 15:00: us, DAILY, [place] 20 Units 00 First dose Medic al on [facility] 04/21/22 at 0900, Until Discontinu ed, Routine insulin 2021-05 Yes 20U inject 20 Unive rs detemir 2-15 Units ity of U-100 100 14:13: under the [place] unit/mL 44 skin at Medical injection bedtime. Branch gabapentin 2021-05 Yes 100mg Take 100 Un [place] 100 mg 2-15 mg by ity of capsule 14:13: mouth in [place] 44 the Medical morning. Branch Thyroid, 2021-05 Yes 120mg Take 120 Univ ers P[place], 2-15 mg by ity of (ARMOUR 14:13: mouth [place] THYROID) 44 daily. Medical 120 mg Branch tablet insulin 2021-05 Yes 20U inject 20 Unive rs detemir 2-15 Units ity of U-100 100 14:13: under the [place] unit/mL 44 skin at Medical injection bedtime. Branch gabapentin 2021-05 Yes 100mg Take 100 Un [place] 100 mg 2-15 mg by ity of capsule 14:13: mouth in [place] 44 the Medical morning. Branch Thyroid, 2021-05 Yes 120mg Take 120 Univ ers [place], 2-15 mg by ity of (ARMOUR 14:13: mouth [place] THYROID) 44 daily. Medical 120 mg Branch tablet insulin 2021-05 Yes 20U inject 20 Unive rs detemir 2-15 Units ity of U-100 100 14:13: under the [place] unit/mL 44 skin at Medical injection bedtime. Branch gabapentin 2021-05 Yes 100mg Take 100 Un [place] 100 mg 2-15 mg by ity of capsule 14:13: mouth in [place] 44 the Medical morning. Branch Thyroid, 2021-05 Yes 120mg Take 120 Univ ers [place], 2-15 mg by ity of (ARMOUR 14:13: mouth [place] THYROID) 44 daily. Medical 120 mg Branch tablet insulin 2021-05 Yes 20U inject 20 Unive rs detemir 2-15 Units ity of U-100 100 14:13: under the [place] unit/mL 44 skin at Medical injection bedtime. Branch gabapentin 2021-05 Yes 100mg Take 100 Un [place] 100 mg 2-15 mg by ity of capsule 14:13: mouth in [place] 44 the Medical morning. Branch Thyroid, 2021-05 Yes 120mg Take 120 Univ ers [place], 2-15 mg by ity of (ARMOUR 14:13: mouth [place] THYROID) 44 daily. Medical 120 mg Branch tablet insulin 2021-05 Yes 20U inject 20 Unive rs detemir 2-15 Units ity of U-100 100 14:13: under the [place] unit/mL 44 skin at Medical injection bedtime. Branch gabapentin 2021-05 Yes 100mg Take 100 Un [place] 100 mg 2-15 mg by ity of capsule 14:13: mouth in [place] 44 the Medical morning. Branch Thyroid, 2021-05 Yes 120mg Take 120 Univ ers [place], 2-15 mg by ity of (ARMOUR 14:13: mouth [place] THYROID) 44 daily. Medical 120 mg Branch tablet insulin 2021-05 Yes 20U inject 20 Unive rs detemir 2-15 Units ity of U-100 100 14:13: under the [place] unit/mL 44 skin at Medical injection bedtime. Branch gabapentin 2021-05 Yes 100mg Take 100 Un [place] 100 mg 2-15 mg by ity of capsule 14:13: mouth in [place] 44 the Medical morning. Branch Thyroid, 2021-05 Yes 120mg Take 120 Univ ers [place], 2-15 mg by ity of (ARMOUR 14:13: mouth [place] THYROID) 44 daily. Medical 120 mg Branch tablet insulin 2021-05 Yes 20U inject 20 Unive rs detemir 2-15 Units ity of U-100 100 14:13: under the [place] unit/mL 44 skin at Medical injection bedtime. Branch gabapentin 2021-05 Yes 100mg Take 100 Un [place] 100 mg 2-15 mg by ity of capsule 14:13: mouth in [place] 44 the Medical morning. Branch Thyroid, 2021-05 Yes 120mg Take 120 Univ ers P[place], 2-15 mg by ity of (ARMOUR 14:13: mouth [place] THYROID) 44 daily. Medical 120 mg Branch tablet insulin 2021-05 Yes 20U inject 20 Unive rs detemir 2-15 Units ity of U-100 100 14:13: under the [place] unit/mL 44 skin at Medical injection bedtime. Branch gabapentin 2021-05 Yes 100mg Take 100 Un [place] 100 mg 2-15 mg by ity of capsule 14:13: mouth in [place] 44 the Medical morning. Branch Thyroid, 2021-05 Yes 120mg Take 120 Univ ers P[place], 2-15 mg by ity of (ARMOUR 14:13: mouth [place] THYROID) 44 daily. Medical 120 mg Branch tablet insulin 2021-05 10U inject 10 Univ ers aspart 2-15 12-15 Units ity of RAPID 100 14:10: 00:00 under the [place] unit/mL 57 :00 skin 3 Medical injection (three) Branch times daily with meals. insulin 2021-05 Yes [id number] 10U inject 10 U nivers lispro, 2-15 Units ity of human, 100 00:00: under the [place] unit/mL 00 skin 2 Medical injection (two) Branch times daily before breakfast and dinner. insulin NPH 2021-05 Yes [id number] 20U inject 20 Univers 100 unit/mL 2-15 Units ity of injection 00:00: under the [place] 00 skin every Medical evening. Branch insulin 2021-05 Yes [id number] 10U inject 10 U nivers lispro, 2-15 Units ity of human, 100 00:00: under the [place] unit/mL 00 skin 2 Medical injection (two) Branch times daily before breakfast and dinner. insulin NPH 2021-05 Yes [id number] 20U inject 20 Univers 100 unit/mL 2-15 Units ity of injection 00:00: under the [place] 00 skin every Medical evening. Branch insulin 2021-05 Yes [id number] 10U inject 10 U nivers lispro, 2-15 Units ity of human, 100 00:00: under the [place] unit/mL 00 skin 2 Medical injection (two) Branch times daily before breakfast and dinner. insulin NPH 2021-05 Yes [id number] 20U inject 20 Univers 100 unit/mL 2-15 Units ity of injection 00:00: under the [place] 00 skin every Medical evening. Branch insulin 2021-05 Yes [id number] 10U inject 10 U nivers lispro, 2-15 Units ity of human, 100 00:00: under the [place] unit/mL 00 skin 2 Medical injection (two) Branch times daily before breakfast and dinner. insulin NPH 2021-05 Yes [id number] 20U inject 20 Univers 100 unit/mL 2-15 Units ity of injection 00:00: under the [place] 00 skin every Medical evening. Branch insulin 2021-05 Yes [id number] 10U inject 10 U nivers lispro, 2-15 Units ity of human, 100 00:00: under the [place] unit/mL 00 skin 2 Medical injection (two) Branch times daily before breakfast and dinner. insulin NPH 2021-05 Yes [id number] 20U inject 20 Univers 100 unit/mL 2-15 Units ity of injection 00:00: under the [place] 00 skin every Medical evening. Branch insulin 2021-05 Yes [id number] 10U inject 10 U nivers lispro, 2-15 Units ity of human, 100 00:00: under the [place] unit/mL 00 skin 2 Medical injection (two) Branch times daily before breakfast and dinner. insulin NPH 2021-05 Yes [id number] 20U inject 20 [facility] 100 unit/mL 2-15 Units ity of injection 00:00: under the [place] 00 skin every Medical evening. Branch insulin 2021-05 Yes [id number] 10U inject 10 U nivers lispro, 2-15 Units ity of human, 100 00:00: under the [place] unit/mL 00 skin 2 Medical injection (two) Branch times daily before breakfast and dinner. insulin NPH 2021-05 Yes [id number] 20U inject 20 [facility] 100 unit/mL 2-15 Units ity of injection 00:00: under the [place] 00 skin every Medical evening. Branch insulin 2021-05 Yes [id number] 10U inject 10 U nivers lispro, 2-15 Units ity of human, 100 00:00: under the [place] unit/mL 00 skin 2 Medical injection (two) Branch times daily before breakfast and dinner. insulin NPH 2021-05 Yes [id number] 20U inject 20 [facility] 100 unit/mL 2-15 Units ity of injection 00:00: under the [place] 00 skin every Medical evening. Branch aspirin 81 2021-05- Yes [id number] 81mg Take 1 Univers mg chewable 2-15 12-16 tablet by it y of tablet 00:00: 05:59 mouth in [place] 00 :00 the Medical morning. Branch aspirin 81 2021-05- Yes [id number] 81mg Take 1 Univers mg chewable 2-15 12-16 tablet by it y of tablet 00:00: 05:59 mouth in [place] 00 :00 the Medical morning. Branch aspirin 81 2021-05- Yes [id number] 81mg Take 1 Univers mg chewable 2-15 12-16 tablet by it y of tablet 00:00: 05:59 mouth in [place] 00 :00 the Medical morning. Branch aspirin 81 2021-05- Yes [id number] 81mg Take 1 Univers mg chewable 2-15 12-16 tablet by it y of tablet 00:00: 05:59 mouth in [place] 00 :00 the Medical morning. Branch aspirin 81 2021-05- Yes [id number] 81mg Take 1 Univers mg chewable 2-15 12-16 tablet by it y of tablet 00:00: 05:59 mouth in [place] 00 :00 the Medical morning. Branch aspirin 81 2021-05- Yes [id number] 81mg Take 1 Univers mg chewable 2-15 12-16 tablet by it y of tablet 00:00: 05:59 mouth in [place] 00 :00 the Medical morning. Branch aspirin 81 2021-05- Yes [id number] 81mg Take 1 Univers mg chewable 2-15 12-16 tablet by it y of tablet 00:00: 05:59 mouth in [place] 00 :00 the Medical morning. Branch aspirin 81 2021-05- Yes [id number] 81mg Take 1 [facility] mg chewable 2-15 12-16 tablet by it y of tablet 00:00: 05:59 mouth in [place] 00 :00 the Medical morning. Branch aspirin 81 2021-05- Yes [id number] 81mg Take 1 Univers mg chewable 2-15 12-16 tablet by it y of tablet 00:00: 05:59 mouth in [place] 00 :00 the Medical morning. Branch aspirin 81 2021-05- Yes [id number] 81mg Take 1 Univers mg chewable 2-15 12-16 tablet by it y of tablet 00:00: 05:59 mouth in [place] 00 :00 the Medical morning. Branch aspirin 81 2021-05- Yes [id number] 81mg Take 1 [facility] mg chewable 2-15 12-16 tablet by it y of tablet 00:00: 05:59 mouth in [place] 00 :00 the Medical morning. Branch aspirin 81 2021-05- Yes [id number] 81mg Take 1 [facility] mg chewable 2-15 12-16 tablet by it y of tablet 00:00: 05:59 mouth in [place] 00 :00 the Medical morning. Branch aspirin 81 2021-05- Yes [id number] 81mg Take 1 [facility] mg chewable 2-15 12-16 tablet by it y of tablet 00:00: 05:59 mouth in [place] 00 :00 the Medical morning. Branch aspirin 81 2021-05- Yes [id number] 81mg Take 1 [facility] mg chewable 2-15 12-16 tablet by it y of tablet 00:00: 05:59 mouth in [place] 00 :00 the Medical morning. Branch aspirin 81 2021-05- Yes [id number] 81mg Take 1 [facility] mg chewable 2-15 12-16 tablet by it y of tablet 00:00: 05:59 mouth in [place] 00 :00 the Medical morning. Branch aspirin 2021-05- Yes [id number] 81mg Take 1 [facility] mg chewable 2-15 12-16 tablet by it y of tablet 00:00: 05:59 mouth in [place] 00 :00 the Medical morning. Branch aspirin 81 2021-05- Yes [id number] 81mg Take 1 [facility] mg chewable 2-15 12-16 tablet by it y of tablet 00:00: 05:59 mouth in [place] 00 :00 the Medical morning. Branch aspirin 81 2021-05- Yes [id number] 81mg Take 1 [facility] mg chewable 2-15 12-16 tablet by it y of tablet 00:00: 05:59 mouth in [place] 00 :00 the Medical morning. Branch aspirin 81 2021-05- Yes [id number] 81mg Take 1 [facility] mg chewable 2-15 12-16 tablet by it y of tablet 00:00: 05:59 mouth in [place] 00 :00 the Medical morning. Branch insulin 2021-05- No [id number] 10U inject 10 [facility] lispro, 2-15 12-31 Units ity of human, 100 00:00: 00:00 under the [place] unit/mL 00 :00 skin 2 Medical injection (two) Branch times daily before breakfast and dinner. insulin NPH 2021-05- No [id number] 20U inject 20 [facility] 100 unit/mL 2-15 12-31 Units ity of injection 00:00: 00:00 under the [place] 00 :00 skin every Medical evening. Branch insulin 2021-05- No [id number] 10U inject 10 [facility] lispro, 2-15 12-31 Units ity of human, 100 00:00: 00:00 under the [place] unit/mL 00 :00 skin 2 Medical injection (two) Branch times daily before breakfast and dinner. insulin NPH 2021-05- No [id number] 20U inject 20 [facility] 100 unit/mL 2-15 12-31 Units ity of injection 00:00: 00:00 under the [place] 00 :00 skin every Medical evening. Branch insulin NPH 2021-05- No [id number] 16U inject 16 [facility] 100 unit/mL 2-15 12-15 Units ity of injection 00:00: 00:00 under the [place] 00 :00 skin every Medical evening. Branch Sliding 2021-05 Yes Subcutaneo Univ ers Scale 2-14 us, Q4H, ity of Insulin - 22:00: First dose [place] Lispro 00 (after Medical (HumaLOG) + last Branch Fsbg modificati Testing on) on Mon04/20/22 at 1600, Until Discontinu ed, Routine Sliding 2021-05- No Subcutaneo Uni vers Scale 2-14 12-15 us, Q4H, ity of Insulin - 22:00: 15:27 First dose [place] Lispro 00 :11 (after Medical (HumaLOG) + last Branch Fsbg modificati Testing on) on Mon04/20/22 at 1600, Until Discontinu ed, Routine aspirin 2021-05 Yes 81mg 81 mg, [facility] chewable 2-14 Oral, ity of tablet 81 15:00: DAILY, [place] mg 00 First dose Medical on Mon04/20/22 at 0900, Until Discontinu ed, Routine, CV Recovery to Floor aspirin 2021-05 Yes 81mg 81 mg, [facility] chewable 2-14 Oral, ity of tablet 81 15:00: DAILY, [place] mg 00 First dose Medical on Mon04/20/22 at 0900, Until Discontinu ed, Routine, CV Recovery to Floor insulin 2021-05- No 29U 29 Units, Univ ers glargine 2-14 12-14 Subcutaneo ity of (LANTUS 15:00: 20:08 us, DAILY, [place] U-100) 00 :35 First dose Medical injection (after Branch 29 Units last modificati on) on Mon04/20/22 at 0900, Until Discontinu ed, Routine gemfibroziL 2021-05- No 600mg Take 600 [facility] 600 mg 2-14 12-14 mg by ity of tablet 13:38: 00:00 mouth at [place] 30 :00 bedtime. Medical Branch gemfibroziL 2021-05- No 600mg Take 600 [facility] 600 mg 2-14 12-14 mg by ity of tablet 13:38: 00:00 mouth at [place] 30 :00 bedtime. Medical Branch insulin 2021-05 Yes 10U inject 10 Unive rs aspart 2-14 Units ity of RAPID 100 13:38: under the [place] unit/mL 27 skin 3 Medical injection (three) Branch times daily with meals. insulin 2021-05 Yes 20U inject 20 Unive rs detemir 2-14 Units ity of U-100 100 13:38: under the [place] unit/mL 27 skin at Medical injection bedtime. Branch gabapentin 2021-05 Yes 100mg Take 100 Un lucila 100 mg 2-14 mg by ity of capsule 13:38: mouth in [place] 27 the Medical morning. Branch Thyroid, 2021-05 Yes 120mg Take 120 Univ ers Pork, 2-14 mg by ity of (ARMOUR 13:38: mouth [place] THYROID) 27 daily. Medical 120 mg Branch tablet ticagrelor 2021-05 Yes 90mg 90 mg, Unive rs (BRILINTA) 2-14 Oral, BID, ity of tablet 90 02:00: First dose [place] mg 00 on [facility] 04/19/22 Branch at 1999, Until Discontinu ed, Routine, CV Recovery to Floor ticagrelor 2021-05 Yes 90mg 90 mg, Unive rs (BRILINTA) 2-14 Oral, BID, ity of tablet 90 02:00: First dose [place] mg 00 on [facility] 04/19/22 Branch at 1999, Until Discontinu ed, Routine, CV Recovery to Floor ticagrelor 2021-05- Yes [id number] 90mg Take 1 [facility] 90 mg 2-14 12-15 tablet by ity of tablet 00:00: 05:59 mouth in [place] 00 :00 the Medical morning Branch and 1 tablet in the evening. ticagrelor 2021-05- Yes [id number] 90mg Take 1 [facility] 90 mg 2-14 12-15 tablet by ity of tablet 00:00: 05:59 mouth in [place] 00 :[address] [facility] morning Branch and 1 tablet in the evening. ticagrelor 2021-05- Yes [id number] 90mg Take 1 [facility] 90 mg 2-14 12-15 tablet by ity of tablet 00:00: 05:59 mouth in [place] 00 :00 the Medical morning Branch and 1 tablet in the evening. ticagrelor 2021-05- Yes [id number] 90mg Take 1 [facility] 90 mg 2-14 12-15 tablet by ity of tablet 00:00: 05:59 mouth in [place] 00 :00 the Medical morning Branch and 1 tablet in the evening. ticagrelor 2021-05- Yes [id number] 90mg Take 1 [facility] 90 mg 2-14 12-15 tablet by ity of tablet 00:00: 05:59 mouth in [place] 00 :00 the Medical morning Branch and 1 tablet in the evening. ticagrelor 2021-05- Yes [id number] 90mg Take 1 [facility] 90 mg 2-14 12-15 tablet by ity of tablet 00:00: 05:59 mouth in [place] 00 :00 the Medical morning Branch and 1 tablet in the evening. ticagrelor 2021-05- Yes [id number] 90mg Take 1 [facility] 90 mg 2-14 12-15 tablet by ity of tablet 00:00: 05:59 mouth in [place] 00 :00 the Medical morning Branch and 1 tablet in the evening. ticagrelor 2021-2022- Yes [id number] 90mg Take 1 [facility] 90 mg 2-14 12-15 tablet by ity of tablet 00:00: 05:59 mouth in [place] 00 :00 the Medical morning Branch and 1 tablet in the evening. ticagrelor 2021-05- Yes [id number] 90mg Take 1 [facility] 90 mg 2-14 12-15 tablet by ity of tablet 00:00: 05:59 mouth in [place] 00 :00 the Medical morning Branch and 1 tablet in the evening. ticagrelor 2021-05- Yes [id number] 90mg Take 1 [facility] 90 mg 2-14 12-15 tablet by ity of tablet 00:00: 05:59 mouth in [place] 00 :00 the Medical morning Branch and 1 tablet in the evening. ticagrelor 2021-05- Yes [id number] 90mg Take 1 [facility] 90 mg 2-14 12-15 tablet by ity of tablet 00:00: 05:59 mouth in [place] 00 :[address] [facility] morning Branch and 1 tablet in the evening. atorvastati 2021-05- Yes [id number] 40mg Take 1 Univers n 40 mg 2-14 12-15 tablet by ity of tablet 00:00: 05:59 mouth [place] 00 :00 every Medical evening. Branch ticagrelor 2021-05- Yes [id number] 90mg Take 1 [facility] 90 mg 2-14 12-15 tablet by ity of tablet 00:00: 05:59 mouth in [place] 00 :00 the Medical morning Branch and 1 tablet in the evening. atorvastati 2021-05- Yes [id number] 40mg Take 1 Univers n 40 mg 2-14 12-15 tablet by ity of tablet 00:00: 05:59 mouth [place] 00 :00 every Medical evening. Branch ticagrelor 2021-05- Yes [id number] 90mg Take 1 [facility] 90 mg 2-14 12-15 tablet by ity of tablet 00:00: 05:59 mouth in [place] 00 :00 the Medical morning Branch and 1 tablet in the evening. atorvastati 2021-05- Yes [id number] 40mg Take 1 Univers n 40 mg 2-14 12-15 tablet by ity of tablet 00:00: 05:59 mouth [place] 00 :00 every Medical evening. Branch ticagrelor 2021-05- Yes [id number] 90mg Take 1 [facility] 90 mg 2-14 12-15 tablet by ity of tablet 00:00: 05:59 mouth in [place] 00 :00 the Medical morning Branch and 1 tablet in the evening. atorvastati 2021-05- Yes [id number] 40mg Take 1 Univers n 40 mg 2-14 12-15 tablet by ity of tablet 00:00: 05:59 mouth [place] 00 :00 every Medical evening. Branch ticagrelor 2021-05- Yes [id number] 90mg Take 1 [facility] 90 mg 2-14 12-15 tablet by ity of tablet 00:00: 05:59 mouth in [place] 00 :00 the Medical morning Branch and 1 tablet in the evening. atorvastati 2021-05- Yes [id number] 40mg Take 1 Univers n 40 mg 2-14 12-15 tablet by ity of tablet 00:00: 05:59 mouth [place] 00 :00 every Medical evening. Branch ticagrelor 2021-05- Yes [id number] 90mg Take 1 [facility] 90 mg 2-14 12-15 tablet by ity of tablet 00:00: 05:59 mouth in [place] 00 :00 the Medical morning Branch and 1 tablet in the evening. atorvastati 2021-05- Yes [id number] 40mg Take 1 Univers n 40 mg 2-14 12-15 tablet by ity of tablet 00:00: 05:59 mouth [place] 00 :00 every Medical evening. Branch ticagrelor 2021-05- Yes [id number] 90mg Take 1 Univers 90 mg 2-14 12-15 tablet by ity of tablet 00:00: 05:59 mouth in [place] 00 :00 the Medical morning Branch and 1 tablet in the evening. atorvastati 2021-05- Yes [id number] 40mg Take 1 Univers n 40 mg 2-14 12-15 tablet by ity of tablet 00:00: 05:59 mouth [place] 00 :00 every Medical evening. Branch ticagrelor 2021-05- Yes [id number] 90mg Take 1 [facility] 90 mg 2-14 12-15 tablet by ity of tablet 00:00: 05:59 mouth in [place] 00 :00 the Medical morning Branch and 1 tablet in the evening. atorvastati 2021-05- Yes [id number] 40mg Take 1 Univers n 40 mg 2-14 12-15 tablet by ity of tablet 00:00: 05:59 mouth [place] 00 :00 every Medical evening. Branch ticagrelor 2021-05- Yes [id number] 90mg Take 1 [facility] 90 mg 2-14 12-15 tablet by ity of tablet 00:00: 05:59 mouth in [place] 00 :00 the Medical morning Branch and 1 tablet in the evening. atorvastati 2021-05- Yes [id number] 40mg Take 1 Univers n 40 mg 2-14 12-15 tablet by ity of tablet 00:00: 05:59 mouth [place] 00 :00 every Medical evening. Branch atorvastati 2021-05- No [id number] 40mg Take 1 Univers n 40 mg 2-14 12-31 tablet by ity of tablet 00:00: 00:00 mouth [place] 00 :00 every Medical evening. Branch atorvastati 2021-05- No [id number] 40mg Take 1 Univers n 40 mg 2-14 12-31 tablet by ity of tablet 00:00: 00:00 mouth [place] 00 :00 every Medical evening. Branch iopamidol 2021-05- No ONCE INTRA U nivers (ISOVUE-370 06-20 PROCEDURE, i ty of ) injection 21:47: 21:54 Starting [place] 01 :39 on [facility] 04/19/22 Branch at 1547, Until Mon04/19/22 at 1554, Routine, CV Intraproce dure ticagrelor 2021-05- No ONCE INTRA Univers (BRILINTA) 06-20 PROCEDURE, it y of tablet 21:44: 21:54 Starting [place] 26 :39 on [facility] 04/19/22 Branch at 1544, Until Mon04/19/22 at 1554, Routine, CV Intraproce dure adenosine 6 2021-05- No ONCE INTRA Univers mg/1000 mL 06-20 PROCEDURE, it y of INTRACORONA 21:39: 21:54 Starting [place] RY 45 :39 on Tue Medical injection 04/19/22 Branch for CATH at 1539, LAB Until [facility] 04/19/22 at 1554, Routine, CV Intraproce dure NaCl 0.9% 2021-05- No CONTINUOUS U nivers (NS) bolus 06-20 PRN, ity of infusion 20:40: 20:40 [place] 06 :06 on [facility] 04/19/22 Branch at 1440, Until Discontinu ed, STAT, CV Intraproce dure nitroglycer 2021-05- No ONCE INTRA Univers in (TRIDIL) 06-20 PROCEDURE, i ty of 2 mg in 10 20:35: 21:54 Starting [place] mL D5W for 30 :39 on [facility] Cardiac 04/19/22 Branch Cath at 1435, Until [facility] 04/19/22 at 1554, Routine, CV Intraproce dure heparin 2021-05- No ONCE INTRA Uni vers 1,000 06-20 PROCEDURE, ity of unit/mL 20:35: 21:54 Starting [place] injection 20 :39 on [facility] 04/19/22 Branch at 1435, Until [facility] 04/19/22 at 1554, Routine, CV Intraproce dure lidocaine 2021-05- No ONCE INTRA U nivers 1% (PF) 06-20 PROCEDURE, ity o f (XYLOCAINE) 20:28: 21:54 Starting [place] injection 20 :39 on [facility] 04/19/22 Branch at 1428, Until [facility] 04/19/22 at 1554, Routine, CV Intraproce dure FENTanyl PF 2021-05- No ONCE INTRA Univers (SUBLIMAZE 06-20 PROCEDURE, it y of (PF)) 20:21: 21:54 Starting [place] injection 27 :39 on [facility] 04/19/22 Branch at 1421, Until [facility] 04/19/22 at 1554, Routine, CV Intraproce dure midazolam 2021-05- No ONCE INTRA U nivers (VERSED) 06-20 PROCEDURE, ity of injection 20:21: 21:54 Starting [place] 16 :39 on [facility] 04/19/22 Branch at 1421, Until Mon04/19/22 at 1554, Routine, CV Intraproce dure dextrose 2021-05 Yes 250mL 250 mL, IV Un lucila 10% (D10W) 2-13 Infusion, ity of bolus 14:32: PRN - SEE [place] infusion 00 INSTRUCTIO Medic al 250 mL NS, Branch Administer over 60 Minutes, Hypoglycem ia, Starting on Mon04/19/22 at 0832
De xtrose 10% 250 mL bag contains:& nbsp;10 gm = 100 mL 20 gm = 200 mL 25 gm = 250 mL (whole bag) The maximum rate at which dextrose can be infused without producing glycosuria is 0.5 g/kg/hour. &nbs p;BUD: If wrapper is open bag is good for 30 days at room temperatur e. <b r> dextrose 2021-05 Yes 250mL 250 mL, IV Un lucila 10% (D10W) 2-13 Infusion, ity of bolus 14:32: PRN - SEE [place] infusion 00 INSTRUCTIO Medic al 250 mL NS, Branch Administer over 60 Minutes, Hypoglycem ia, Starting on Mon04/19/22 at 0832
De xtrose 10% 250 mL bag contains:& nbsp;10 gm = 100 mL 20 gm = 200 mL 25 gm = 250 mL (whole bag) The maximum rate at which dextrose can be infused without producing glycosuria is 0.5 g/kg/hour. &nbs p;BUD: If wrapper is open bag is good for 30 days at room temperatur e. <b r> insulin 2021-05- No 10U 10 Units, Univ ers regular 06-20 Subcutaneo ity o f human 01:30: 00:55 , [facility], [place] (HUMULIN R) 00 :00 1 dose, On Me dical injection Mon Branch 10 Units 04/18/22 at 1930, Routine
Indicatio n for insulin: Hyperglyce yvan KCL 2021-05- No 40meq 40 mEq, Univers (KLOR-CON 06-19 Oral, ity of M20) tablet 15:00: 18:00 ONCE, 1 [place] 40 mEq 00 :00 dose, On Medical [facility] 04/18/22 at 0900, Routine magnesium 2021-05- No 2g 2 g, IV Univ ers sulfate in 06-19 Piggyback, it y of water 2 14:00: 15:30 Administer [place] gram/50 mL 00 :00 over 60 Medica l (4 %) Minutes, Branch infusion 2 ONCE, 1 g dose, On [facility] 04/18/22 at 0800, Routine melatonin 2021-05 Yes 3mg 3 mg, Univers (MELATIN) 2-12 Oral, QHS, ity of tablet 3 mg 03:00: First dose on [facility] 04/17/22 Branch at 2100, Until Discontinu ed, Routine melatonin 2021-05 Yes 3mg 3 mg, Univers (MELATIN) 2-12 Oral, QHS, ity of tablet 3 mg 03:00: First dose on [facility] 04/17/22 Branch at 2100, Until Discontinu ed, Routine hydrOXYzine 2021-05 Yes 10mg 10 mg, Univ ers (ATARAX) 2-11 Oral, ity of tablet 10 22:20: Q6HPRN, [place] mg 42 Starting Medical on [facility] 04/17/22 at 1620, Until Discontinu ed, Routine, Anxiety hydrOXYzine 2021-05 Yes 10mg 10 mg, Univ ers (ATARAX) 2-11 Oral, ity of tablet 10 22:20: Q6HPRN, [place] mg 42 Starting Medical on [facility] 04/17/22 at 1620, Until Discontinu ed, Routine, Anxiety LORazepam 2021-05- No .5mg 0.5 mg, Univ ers (ATIVAN) -03 19-11 Intramuscu ity of injection 18:00: 18:30 lar, ONCE, [place] 0.5 mg 00 :00 1 dose, On [facility] 04/17/22 at 1200, Routine Sliding 2021-05- No Subcutaneo Uni vers Scale 06-18-14 us, Q4H, ity of Insulin - 14:00: 20:08 First dose [place] Lispro 00 :35 (after Medical (HumaLOG) + last Branch Fsbg modificati Testing on) on [place] 04/17/22 at 0800, Until Discontinu ed, Routine magnesium 2021-05- No 4g 4 g, IV Univ ers sulfate in 06-18 Piggyback, it y of water 4 13:45: 15:43 at 25 [place] gram/50 mL 00 :00 mL/hr Medical (8 %) IV Administer Branc h Piggyback 4 over 120 g Minutes, ONCE, 1 dose, On [place] 04/17/22 at 0745, Routine Sliding 2021-05- No Subcutaneo Uni vers Scale 06-18 us, Q4H, ity of Insulin - 06:00: 10:50 First dose [place] Lispro 00 :56 (after Medical (HumaLOG) + last Branch Fsbg modificati Testing on) on [place] 04/17/22 at 0000, Until Discontinu ed, Routine atorvastati 2021-05 Yes 40mg 40 mg, Univ ers n (LIPITOR) 2-10 Oral, QPM, it y of tablet 40 23:00: First dose [place] mg 00 on [facility] 04/16/22 Branch at 1700, Until Discontinu ed, Routine atorvastati 2021-05 Yes 40mg 40 mg, Univ ers n (LIPITOR) 2-10 Oral, QPM, it y of tablet 40 23:00: First dose [place] mg 00 on [facility] 04/16/22 Branch at 1700, Until Discontinu ed, Routine Sliding 2021-05- No Subcutaneo Uni vers Scale -04-17 us, TID ity of Insulin - 18:00: 02:41 MEALS+HS, [place] Lispro 00 :44 First dose Medical (HumaLOG) + on [facility] Branch Fsbg 04/16/22 Testing at 1200, Until Discontinu ed, Routine gabapentin 2021-05 Yes 100mg 100 mg, Uni vers (NEURONTIN) 2-10 Oral, ity of capsule 100 15:00: DAILY, [place] mg 00 First dose Medical on [facility] Branch 04/16/22 at 0900, Until Discontinu ed, Routine gabapentin 2021-05 Yes 100mg 100 mg, Uni vers (NEURONTIN) 2-10 Oral, ity of capsule 100 15:00: DAILY, [place] mg 00 First dose Medical on [facility] Branch 04/16/22 at 0900, Until Discontinu ed, Routine insulin 2021-05 No 20U 20 Units, Univ ers glargine 2-10 12-14 Subcutaneo ity of (LANTUS 15:00: 03:33 us, DAILY, [place] U-100) 00 :51 First dose Medical injection on Sat Branch 20 Units 04/16/22 at 0900, Until Discontinu ed, Routine aspirin 2021-05 No 81mg 81 mg, Univers chewable 2-10 12-13 Oral, ity of tablet 81 15:00: 22:35 DAILY, [place] mg 00 :33 First dose Medical on Sat Branch 04/16/22 at 0900, Until Discontinu ed, Routine insulin 2021-05 Yes 10U 10 Units, Unive rs lispro 2-10 Subcutaneo ity of (human) 14:00: us, TID [place] (HumaLOG 00 MEALS, Medical U-100) First dose Branch injection on Sat 10 Units 04/16/22 at 0800, Until Discontinu ed insulin 2021-05 No 10U 10 Units, Univ ers lispro 2-10 12-15 Subcutaneo ity of (human) 14:00: 15:25 us, TID [place] (HumaLOG 00 :09 MEALS, Medical U-100) First dose Branch injection on Sat 10 Units 04/16/22 at 0800, Until Discontinu ed thyroid 2021-05 Yes 120mg 120 mg, Univer s (ARMOUR 2-10 Oral, ity of THYROID) 12:00: QAM-0600, [place] tablet 120 00 First dose Med ical mg on Sat Branch 04/16/22 at 0600, Until Discontinu ed thyroid 2021-05 Yes 120mg 120 mg, Univer s (ARMOUR 2-10 Oral, ity of THYROID) 12:00: QAM-0600, [place] tablet 120 00 First dose Med ical mg on Sat Branch 04/16/22 at 0600, Until Discontinu ed nitroglycer 2021-05 Yes .4mg 0.4 mg, Uni vers in 2-10 Sublingual ity of (NITROSTAT) 08:24: , Q5MIN [place] sublingual 14 PRN, Medical tablet 0.4 Starting Branc h mg on 04/16/22 at 0224, Until Discontinu ed, Routine, Chest pain nitroglycer 2021-05 Yes .4mg 0.4 mg, Uni vers in 2-10 Sublingual ity of (NITROSTAT) 08:24: , Q5MIN [place] sublingual 14 PRN, Medical tablet 0.4 Starting Branc h mg on 04/16/22 at 0224, Until Discontinu ed, Routine, Chest pain acetaminoph 2021-05 Yes 650mg 650 mg, Un lucila en 2-10 Oral, ity of (TYLENOL) 08:23: Q6HPRN, [place] tablet 650 56 Starting Medic al mg on Sat Branch 04/16/22 at 0223, Until Discontinu ed, Routine, Pain (scale 1-3) acetaminoph 2021-05 Yes 650mg 650 mg, Un lucila en 2-10 Oral, ity of (TYLENOL) 08:23: Q6HPRN, [place] tablet 650 56 Starting Medic al mg on Sat Branch 04/16/22 at 0223, Until Discontinu ed, Routine, Pain (scale 1-3) iopamidol 2021-05- No [id number] 80mL 80 mL, U nivers (ISOVUE 2-10 12-10 Intravenou ity o f 370-500 mL) 07:22: 07:15 s, ONCE, 1 [place] injection 00 :00 dose, On Medica l 80 mL Sat Branch 04/16/22 at 0130, Routine HEPARIN 2021-05- No 60U/kg 3,810 Univer s SODIUM 2-10 12-10 Units (60 ity of (PORCINE) 06:00: 06:05 Units/kg [place] 1,000 00 :00 ?63.5 kg), Medical UNIT/ML IV Push, Branch BOLUS ACS ONCE, 1 ORDER SET dose, On 04/16/22 at 0000, MARCOS heparin 2021-05- No 0U/h 0-2,150 Univer s 25,000 2-10 12-13 Units/hr ity of Units/250 05:52: 23:28 (0-21.5 [place] mL 47 :55 mL/hr), IV Medical (Premixed Infusion, Branc h Bag) in TITRATE, 0.45 % NS Parameters in Admin. Instr., Starting on Mon04/15/22 at 2352
In itiate infusion at 12 units/kg/h r calculated as: 750 Units/hr (Maximum initial rate: 1,000 Units/hr, then adjust dose as needed per aPTT).&nbs p; CA UTION - If LMWH given in ER, AVOID bolus and start next dose/drip 12 hrs after ER dosage.&nb sp; M ust program rate using programmab le infusion pump.&nbsp ; Mel ck with the ordering provider first prior to any administra tion should the patient be on existing/a dditional anticoagul ant therapy. Range, Dosing and Testing: &nbs p;FOR [place], AND [facility] &nbs p; - aPTT < 35: & nbsp;Bolus 5000 units, increase rate 300 units/hr&n bsp; - aPTT 35-44:&nbs p; [place] dilma 3000 units, increase rate 200 units/hr&n bsp; - aPTT 45-54:&nbs p; In crease rate 100 units/hr&n bsp; - aPTT 55-85:&nbs p; NO CHANGE&nbs p; - aPTT 86-95:&amp ;nbsp;&nbs p;Decrease rate 100 units/hr&n bsp; - aPTT 96-120:&nb sp; H old 30 minutes, decrease rate 150 units/hr&n bsp; - aPTT > 120: Hold 60 minutes, decrease rate 200 units/hr&n bsp; Check aPTT 6 hours after initiation , then Q6H after every change, aPTT Q12H once therapeuti c levels are reached.&n bsp;
&nbs p;FOR [facility] ONLY - aPTT < 40: & nbsp;Bolus 5000 units, increase rate 300 units/hr&n bsp; - aPTT 40-49:&nbs p; [place] dilma 3000 units, increase rate 200 units/hr&n bsp; - aPTT 50-59:&nbs p; In crease rate 100 units/hr&n bsp; - aPTT 60-85:&nbs p;&nbs p;NO CHANGE&nbs p; - aPTT 86-95:&nbs p; De crease rate 100 units/hr&n bsp; - aPTT 96-120:&nb sp; H old 30 minutes, decrease rate 150 units/hr&n bsp; - aPTT > 120: Hold 60 minutes, decrease rate 200 units/hr&n bsp; Check aPTT 6 hours after initiation , then Q6H after every change, aPTT Q12H once therapeuti c levels are reached.&n bsp; DO NOT ADJUST INITIAL BOLUS OR INITIAL INFUSION RATE.
heparin 2021-05- No 3000U FOR Univers (1,000 2-10 04-19 REBOLUSING ity of unit/mL, 10 05:51: 23:28 , Starting [place] mL vial) 39 :55 on Fri Medical for 04/15/22 at Branch Rebolusing 2351, Until Mon04/19/22 at 1728, Routine
Dosing based on aPPT testing parameters (refer to continuous heparin drip order).
insulin 2021-05 Yes 10U inject 10 Unive rs aspart 2-10 Units ity of RAPID 100 05:07: under the [place] unit/mL 08 skin 3 Medical injection (three) Branch times daily with meals. gemfibroziL 2021-05 Yes 600mg Take 600 U nivers 600 mg 2-10 mg by ity of tablet 05:07: mouth at [place] 08 bedtime. Medical Branch insulin 2021-05 Yes 20U inject 20 Unive rs detemir 2-10 Units ity of U-100 100 05:07: under the [place] unit/mL 08 skin at Medical injection bedtime. Branch gabapentin 2021-05 Yes 100mg Take 100 Un lucila 100 mg 2-10 mg by ity of capsule 05:07: mouth in [place] 08 the Medical morning. Branch Thyroid, 2021-05 Yes 120mg Take 120 Univ ers Pork, 2-10 mg by ity of (ARMOUR 05:07: mouth [place] THYROID) 08 daily. Medical 120 mg Branch tablet aspirin 2021-05 325mg 325 mg, Unive rs tablet 325 2-10 12-10 Oral, ONCE it y of mg 04:30: 04:30 NOW, 1 [place] 00 :00 dose, On Medical Fri Branch 04/15/22 at 2230, MARCOS acetaminoph 2021-05 Yes 4647 1{tbl} Take 1 [...] 7-10). Indication s: acute pain acetaminoph 2021-05 No 4647 1{tbl} Take 1 U nivers en-codeine 1-11 12-14 tablet by ity of (TYLENOL-CO 00:00: 00:00 mouth [place] DEINE #3) 00 :00 every 4 Medical 300-30 mg (four) Branch tablet hours as needed for Pain (scale 4-6) or Pain (scale 7-10). Indication s: acute pain acetaminoph 2021-05- No 4647 1{tbl} Take 1 U nivers en-codeine -11 12-14 tablet by ity of (TYLENOL-CO 00:00: 00:00 mouth [place] DEINE #3) 00 :00 every 4 Medical 300-30 mg (four) Branch tablet hours as needed for Pain (scale 4-6) or Pain (scale 7-10). Indication s: acute pain insulin 2021-05 Yes 10U 10 Units, Unive rs lispro 1-02 Subcutaneo ity of (human) 17:00: us, TID [place] (HumaLOG 00 MEALS, Medical U-100) First dose [...] by ity of tablet 15:53: mouth at [place] 23 bedtime. Medical Branch insulin 2021-05 Yes [...] Yes 30U inject 30 Unive rs detemir -02 Units ity of U-100 100 15:53: under the [place] unit/mL 23 skin at Medical injection bedtime. Branch gabapentin 2021-05 Yes 100mg Take 100 Un lucila 100 mg 1-02 mg by ity of capsule 15:53: mouth in [place] 23 the Medical morning. Branch Thyroid, 2021-05 Yes 120mg Take 120 Univ ers Pork, 1-02 mg by ity of (ARMOUR 15:53: mouth [place] THYROID) 23 daily. Medical 120 mg Branch tablet lisinopriL 2021-05- No 20mg Take 20 mg Univers 20 mg 05-09 by mouth ity of tablet 12:42: 00:00 in the [place] 38 :00 morning. Medical Branch Sliding 2021-05 Yes Subcutaneo Univ ers Scale - us, TID ity of Insulin - 03:15: MEALS+HS, [place] Lispro 00 First dose Medical (HumaLOG) + (after Branch Fsbg last Testing modificati on) on Mon03/08/22 at 2215, Until Discontinu ed, Routine insulin 2021-05 Yes 20U 20 Units, Unive rs glargine - Subcutaneo ity o f (LANTUS 02:00: us, [facility], [place] U-100) 00 First dose Medical injection on [facility] 20 Units 03/08/22 at 2100, Until Discontinu ed, Routine insulin 2021-05 Yes 20U 20 Units, Unive rs glargine - Subcutaneo ity o f (LANTUS 02:00: us, [facility], [place] U-100) 00 First dose Medical injection on [facility] 20 Units 03/08/22 at 2100, Until Discontinu ed, Routine aspirin 2021-05- Yes [id number] 325mg Take 1 U nivers E.C. 325 mg 05-09 tablet by it y of EC tablet 00:00: 05:59 mouth in [place] 00 :00 the Medical morning Branch and 1 tablet in the evening. Take with meals. Do all this for 26 days. aspirin 2021-05- Yes [id number] 325mg Take 1 U nivers E.C. 325 mg 1-02 11-29 tablet by it y of EC tablet 00:00: 05:59 mouth in [place] 00 :00 the Medical morning Branch and 1 tablet in the evening. Take with meals. Do all this for 26 days. aspirin 2021-05- Yes [id number] 325mg Take 1 U nivers E.C. 325 mg 05-09 tablet by it y of EC tablet 00:00: 05:59 mouth in [place] 00 :00 the Medical morning Branch and 1 tablet in the evening. Take with meals. Do all this for 26 days. aspirin 2021-05- Yes [id number] 325mg Take 1 U nivers E.C. 325 [...] :00 1 dose, On Medic al U-100) [facility] injection 03/08/22 at 10 Units 1315, Routine thyroid 2021-05 Yes 120mg 120 mg, Univer s (ARMOUR 05-08 Oral, ity of THYROID) 11:00: QAM-0600, [place] tablet 120 00 First dose Med ical mg on [facility] Branch 03/08/22 at 0600, Until Discontinu ed thyroid 2021-05 Yes 120mg 120 mg, Univer s (ARMOUR 05-08 Oral, ity of THYROID) 11:00: QAM-0600, [place] tablet 120 00 First dose Med ical mg on [facility] 03/08/22 at 0600, Until Discontinu ed ketorolac 2021-05- No 15mg 15 mg, Unive rs (TORADOL) 05-08 Slow IV ity of injection 02:30: 02:19 Push, [place] 15 mg 00 :00 ONCE, 1 Medical dose, On Branch [facility] 03/07/22 at 2130, Routine gemfibroziL 2021-05 Yes 600mg 600 mg, Un lucila (LOPID) 05-08 Oral, QHS, ity of tablet 600 02:00: First dose [place] mg 00 on [facility] 03/07/22 Branch at 2100, Until Discontinu ed, Routine gemfibroziL 2021-05 Yes 600mg 600 mg, Un lucila (LOPID) 05-08 Oral, QHS, ity of tablet 600 02:00: First dose [place] mg 00 on [facility] 03/07/22 Branch at 2100, Until Discontinu ed, Routine ceFAZolin 2021-05- No 1g 1 g, IV Univ ers (ANCEF) 1 g 03-07 Piggyback, i ty of in NaCl 23:00: 23:34 ONCE, 1 [place] 0.9% (NS) 00 :00 dose, On Medica l 50 mL Mon [place] MINI-BAG 03/07/22 at 1800, Administer over 30 Minutes, 50 mL
Reas on for Anti-Infec tive: Surgical Prophylaxi s
Surgi rogers Prophylaxi s: Orthopaedi c
Durat ion of therapy: within 24 hours of surgery enoxaparin 2021-05 Yes 40mg 40 mg, Unive rs (LOVENOX) 0-31 Subcutaneo ity of injection 22:00: [place], [place]ILY, [place] 40 mg 00 First dose Medical on [facility] 03/07/22 at 1700, Until Discontinu ed, Routine enoxaparin 2021-05 Yes 40mg 40 mg, Unive rs (LOVENOX) 0-31 Subcutaneo ity of injection 22:00: [place], DAILY, [place] 40 mg 00 First dose Medical on [facility] 03/07/22 at 1700, Until Discontinu ed, Routine aspirin [...] No IV Push, Un [place] (BRIDION) 0-31 10- ONCE INTRA ity of injection 17:38: 17:55 PROCEDURE, [place] 00 :24 Starting Medical on Mon03/07/22 at 1238, Until Mon03/07/22 at 1255, Routine, Intra-op morpHINE (2 2021-05 Yes 2mg 2 mg, Slow Univers mg/mL) 0-31 IV Push, ity of injection 2 17:14: Q4HPRN, [place] mg 02 Starting Medical on Mon [place] 03/07/22 at 1214, Until Discontinu ed, Routine, For pain unrelieved by oral medication s, or if patient is unable to tolerate oral pain medication . morpHINE (2 2021-05 Yes 2mg 2 mg, Slow Univers mg/mL) 0-31 IV Push, ity of injection 2 17:14: Q4HPRN, [place] mg 02 Starting Medical on [place] 03/07/22 at 1214, Until Discontinu ed, Routine, For pain unrelieved by oral medication s, or if patient is unable to tolerate oral pain medication . ondansetron 2021-05 Yes 4mg 4 mg, Unive rs (ZOFRAN-ODT 0-31 Oral, ity of ) 17:11: Q8HPRN, [place] disintegrat 32 Starting Medi rogers ing tablet on Mon Branch 4 mg 03/07/22 at 1211, Until Discontinu ed, Routine, Nausea and Vomiting (N/V) ondansetron 2021-05 Yes 4mg 4 mg, Unive rs (ZOFRAN-ODT 0-31 Oral, ity of ) 17:11: Q8HPRN, [place] disintegrat 32 Starting Medi rogers ing tablet on Mon Branch 4 mg 03/07/22 at 1211, Until Discontinu ed, Routine, Nausea and Vomiting (N/V) propofoL IV 2021-05- No IV Unive rs infusion 03-07 Infusion, ity o f 16:57: 17:55 CONTINUOUS [...] Branch Until Mon03/07/22 at 1255, Intra-op tranexamic 2021-05 No IV Univer s acid 0-31 10- Piggyback, ity of (CYKLOKAPRO 15:10: 17:55 CONTINUOUS [...] mouth ity of tablet 15:01: in the [place] 50 morning. Medical Branch gabapentin 2021-05 Yes 100mg Take 100 Un lucila 100 mg 0-31 mg by ity of capsule 15:01: mouth in [place] 50 the Medical morning. Branch Thyroid, 2021-05 Yes 120mg Take 120 Univ ers Pork, 0-31 mg by ity of (ARMOUR 15:01: mouth [place] THYROID) 50 daily. Medical 120 mg Branch tablet insulin 2021-05 Yes 30U inject 30 Unive rs detemir 0-31 Units ity of U-100 100 15:01: under the [place] unit/mL 50 skin at Medical injection bedtime. Branch lisinopriL 2021-05 Yes 20mg Take 20 mg U nivers 20 mg 0-31 by mouth ity of tablet 15:01: in the [place] 50 morning. Medical Branch gabapentin 2021-05 Yes 100mg Take 100 Un lucila 100 mg 0-31 mg by ity of capsule 15:01: mouth in [place] 50 the Medical morning. Branch Thyroid, 2021-05 Yes 120mg Take 120 Univ ers Pork, 0-31 mg by ity of (ARMOUR 15:01: mouth [place] THYROID) 50 daily. Medical 120 mg Branch tablet ceFAZolin 2021-05 No Slow IV Univ ers (ANCEF) 0-31 10- Push, ONCE ity o f injection 14:50: 17:55 INTRA [place] 00 :24 PROCEDURE, Medical Starting Branch on Mon03/07/22 at 0950, Until Mon03/07/22 at 1255, MARCOS, Intra-op rocuronium 2021-05- No IV Push, Un [place] (ZEMURON) 03-07 ONCE INTRA ity of injection 14:49: 17:55 PROCEDURE, [place] 00 :24 Starting Medical on [facility] Branch 03/07/22 at 0949, Until Mon03/07/22 at 1255, Routine, Intra-op lidocaine 2021-05- No Slow IV Univ ers 1% 03-07 Push, ONCE ity of (XYLOCAINE) 14:47: 17:55 INTRA [place] 100 mg/10 00 :24 PROCEDURE, Medi rogers mL (1 %) Starting Branch injection on Mon03/07/22 at 0947, Until Mon03/07/22 at 1255, Routine, Intra-op FENTanyl PF 2021-05- No Epidural, Univers (SUBLIMAZE 03-07 ONCE INTRA it y of (PF)) 14:47: 17:55 PROCEDURE, [place] injection 00 :24 Starting Medica l on [facility] Branch 03/07/22 at 0947, Until Mon03/07/22 at 1255, Routine, Intra-op propofoL IV 2021-05- No IV Unive rs infusion 03-07 Infusion, ity o f 14:47: 17:55 ONCE INTRA [place] 00 :24 PROCEDURE, Medical Starting Branch on Mon03/07/22 at 0947, Until Mon03/07/22 at 1255, Routine, Intra-op midazolam 2021-05- No IV Push, Uni vers (VERSED) 03-07 ONCE INTRA ity of injection 14:41: 17:55 PROCEDURE, [place] 00 :24 Starting Medical on [facility] Branch 03/07/22 at 0941, Until Mon03/07/22 at 1255, [...] Medical Infusion, Branch CONTINUOUS , Starting on [facility] 03/07/22 at 0900, Until Discontinu ed, Routine NaCl 0.45% 2021-05 Yes 1000mL at 100 Uni vers (1/2NS) IV 0-31 mL/hr, ity of infusion 14:00: 1,000 mL, [place] 1,000 mL 00 IV Medical Infusion, Branch CONTINUOUS , Starting on [facility] 03/07/22 at 0900, Until Discontinu ed, Routine lisinopriL 2021-05- No 5mg 5 mg, Unive rs (PRINIVIL,Z 0-03-08 Oral, ity of ESTRIL) 14:00: 13:39 DAILY, [place] tablet 5 mg 00 :00 First dose Me dical on [facility] 03/07/22 at 0900, Until Discontinu ed, Routine KCL 2021-05- No 20meq 20 mEq, Univers (KLOR-CON 0-07 03- Oral, ity of M20) tablet 13:45: 13:06 ONCE, 1 [place] 20 mEq 00 :00 dose, On Medical [facility] 03/07/22 at 0845, Routine magnesium 2021-05 Yes 400mg 400 mg, Univ ers oxide 0-31 Oral, BID, ity of (MAG-OX 13:00: First dose [place] 400) tablet 00 on [facility] Medica l 400 mg 03/07/22 Branch at 0800, Until Discontinu ed, Routine docusate 2021-05 Yes 100mg 100 mg, Unive rs (COLACE) 0-31 Oral, BID, ity o f capsule 100 13:00: First dose [place] mg 00 on [facility] 03/07/22 Branch at 0800, Until Discontinu ed, Routine Sliding 2021-05 Yes Subcutaneo Univ ers Scale 0-31 us, TID ity of Insulin - 13:00: MEALS, [place] Lispro 00 First dose Medical (HumaLOG) + on [facility] Fsbg 03/07/22 Testing at 0800, Until Discontinu ed, Routine magnesium 2021-05 Yes 400mg 400 mg, Univ ers oxide 0-31 Oral, BID, ity of (MAG-OX 13:00: First dose [place] 400) tablet 00 on [facility] Medica l 400 mg 03/07/22 Branch at 0800, Until Discontinu ed, Routine docusate 2021-05 Yes 100mg 100 mg, Unive rs (COLACE) 0-31 Oral, BID, ity o f capsule 100 13:00: First dose [place] mg 00 on [facility] Medical 03/07/22 Branch at 0800, Until Discontinu ed, Routine Sliding 2021-05- No Subcutaneo Uni vers Scale 0-31 11 us, TID ity of Insulin - 13:00: 03:13 MEALS, [place] Lispro 00 :07 First dose Medical (HumaLOG) + on [facility] Branch Fsbg 03/07/22 Testing at 0800, Until Discontinu ed, Routine insulin 2021-05 Yes 10U inject 10 Unive rs aspart 0-31 Units ity of RAPID 100 12:15: under the [place] unit/mL 20 skin 3 Medical injection (three) Branch times daily with meals. gemfibroziL 2021-05 Yes 600mg Take 600 U nivers 600 mg 0-31 mg by ity of tablet 12:15: mouth at [place] 20 bedtime. Medical Branch insulin 2021-05 Yes 10U inject 10 Unive rs aspart 0-31 Units ity of RAPID 100 12:15: under the [place] unit/mL 20 skin 3 Medical injection (three) Branch times daily with meals. gemfibroziL 2021-05 Yes 600mg Take 600 U nivers 600 mg 0-31 mg by ity of tablet 12:15: mouth at [place] 20 bedtime. Medical Branch levothyroxi 2021-05- No 50ug 50 mcg, Un lucila ne 0-31 -31 Oral, ity of (SYNTHROID) 11:00: 23:00 QAM-0600, [place] tablet 50 00 :42 First dose Medi rogers mcg on [facility] Branch 03/07/22 at 0600, Until Discontinu ed, Routine morpHINE (4 2021-05 Yes 4mg 4 mg, Slow Univers mg/mL) 0-31 IV Push, ity of injection 4 07:23: Q4HPRN, [place] mg 08 Starting Medical on [facility] Branch 03/07/22 at 0223, Until Discontinu ed, Routine, Pain (scale 7-10) morpHINE (4 2021-05 Yes 4mg 4 mg, Slow Univers mg/mL) 0-31 IV Push, ity of injection 4 07:23: Q4HPRN, [place] mg 08 Starting Medical on Mon Branch 03/07/22 at 0223, Until Discontinu ed, [...] dose [place] mg 00 on [facility] 03/07/22 Branch at 0115, Until Discontinu ed, Routine gabapentin 2021-05 Yes 100mg 100 mg, Uni vers (NEURONTIN) 0-31 Oral, TID, it y of capsule 100 06:15: First dose [place] mg 00 on [facility] 03/07/22 Branch at 0115, Until Discontinu ed, Routine ondansetron 2021-05 Yes 4mg 4 mg, Slow Univers (ZOFRAN 0-31 IV Push, ity of (PF)) 06:10: Q6HPRN, [place] injection 4 22 Starting Medi rogers mg on [facility] Branch 03/07/22 at 0110, Until Discontinu ed, Routine, Nausea and Vomiting (N/V) ondansetron 2021-05 Yes 4mg 4 mg, Slow Univers (ZOFRAN 0-31 IV Push, ity of (PF)) 06:10: Q6HPRN, [place] injection 4 22 Starting Medi rogers mg on [facility] 03/07/22 at 0110, Until Discontinu ed, Routine, Nausea and Vomiting (N/V) glucagon 2021-05 Yes 1mg 1 mg, Univers (GLUCAGEN 0-31 Intramuscu ity of DIAGNOSTIC 06:08: lar, PRN, [place] KIT) 55 Starting Medical injection 1 on [facility] 03/07/22 at 0108, Until Discontinu ed, MARCOS, Blood Glucose < or = 70 mg/dL and patient is unable to swallow or has mental changes. dextrose 50 2021-05 Yes 25mL 25 mL, Univ ers % in water 0-31 Slow IV ity of (D50W) 06:08: Push, PRN, [place] injection 55 Starting Medica l 25 mL on [facility] 03/07/22 at 0108, Until Discontinu ed, MARCOS, Blood Glucose < or = 70 mg/dL and patient is unable to swallow or has mental status changes. glucagon 2021-05 Yes 1mg 1 mg, Univers (GLUCAGEN 0-31 Intramuscu ity of DIAGNOSTIC 06:08: [place], PRN, [place] KIT) 55 Starting Medical injection 1 on [facility] 03/07/22 at 0108, Until Discontinu ed, MARCOS, Blood Glucose < or = 70 mg/dL and patient is unable to swallow or has mental changes. dextrose 50 2021-05 Yes 25mL 25 mL, Univ ers % in water 0-31 Slow IV ity of (D50W) 06:08: Push, PRN, [place] injection 55 Starting Medica l 25 mL on [facility] 03/07/22 at 0108, Until Discontinu ed, MARCOS, Blood Glucose < or = 70 mg/dL and patient is unable to swallow or has mental status changes. morpHINE (2 2021-05 No 2mg 2 mg, Slow Univers mg/mL) 0-31 10-31 IV Push, ity of injection 2 03:10: 03:22 ONCE, 1 [place] mg 00 :00 dose, On [facility] 03/06/22 at 2215, Routine D5W 0.45% 2021-05- No 1000mL at 125 Uni vers NaCl 0-31 10-31 mL/hr, ity of (1/2NS) IV 03:00: 12:46 1,000 mL, [place] infusion 00 :40 IV Medical 1,000 mL Infusion, Branch CONTINUOUS , Starting on 03/06/22 at 2200, Until 03/07/22 at 0746, MARCOS ondansetron 2021-05 No 4mg 4 mg, Slow Univers (ZOFRAN 03-07 IV Push, ity of (PF)) 02:00: 01:55 ONCE, 1 [place] injection 4 00 :00 dose, On Medi rogers mg [facility] 03/06/22 at 2100, MARCOS morpHINE (4 2021-05 No 4mg 4 mg, Slow Univers mg/mL) 03-07 IV Push, ity of injection 4 02:00: 01:55 ONCE, 1 [place] mg 00 :00 dose, On Medical [facility] 03/06/22 at 2100, STAT levothyroxi 2020-05- No [id number] 75ug Take 1 Univers ne 75 mcg [...] Units ity of RAPID 12:55: under the [place] (NOVOLOG 59 skin 3 Medical U-100 (three) [...] First dose [place] mg 00 on [facility] 03/02/21 Branch at 2100, Until Discontinu ed, Routine gabapentin 2020-05 Yes 300mg 300 mg, Uni vers (NEURONTIN) 0-27 Oral, QHS, it y of capsule 300 02:00: First dose [place] mg 00 on [facility] 03/02/21 Branch at 2100, Until Discontinu ed, Routine insulin 2020-05- No [id number] 20U inject 20 Univers detemir 0-27 11-27 Units ity of U-100 00:00: 05:59 under the [place] (LEVEMIR 00 :00 skin daily Medic al U-100 for 30 Branch INSULIN) days. 100 unit/mL injection gabapentin 2020-05- No [id number] 300mg Take 1 Univers 300 mg 0-03 04- capsule by ity of capsule 00:00: 05:59 mouth at [place] 00 :00 bedtime Medical for 30 Branch days. insulin 2020-05- No 10U 10 Units, Univ ers glargine 0-26 10-27 Subcutaneo ity of (LANTUS 22:00: 13:11 us, QHS, [place] U-100) 00 :30 First dose Medical injection on Mon Branch 10 Units 03/02/21 at 1700, Until [...] :54 First dose Medical (HumaLOG) + on [facility] Branch Fsbg 03/01/21 Testing at 1700, Until Discontinu [...] 0-25 Oral, ity of (TYLENOL) 17:44: Q6HPRN, [place] tablet 650 19 Starting Medic al mg on [facility] Branch 03/01/21 at 1244, Until Discontinu ed, Routine, Pain (scale 1-3) dextrose 50 2020-05- No 50mL 50 mL, Uni vers % in water 0-25 10-25 Intravenou it y of (D50W) 17:00: 15:40 s, ONCE, 1 [place] injection 00 :00 dose, On Medica l 50 mL [facility] Branch 03/01/21 at 1200, STAT ondansetron 2020-05- No 4mg 4 mg, Slow Univers (ZOFRAN 0-25 10-25 IV Push, ity of (PF)) 17:00: 15:48 ONCE, 1 [place] injection 4 00 :00 dose, On Medi rogers mg [facility] Branch 03/01/21 at 1200, MARCOS D5W 0.45% 2020-05- No 1000mL at 125 Uni vers NaCl 0-25 10-25 mL/hr, ity of (1/2NS) IV 17:00: 21:29 1,000 mL, [place] infusion 00 :40 IV Medical 1,000 mL Infusion, Branch CONTINUOUS , Starting on Mon03/01/21 at 1200, Until Mon03/01/21 at 1629, MARCOS ondansetron 2019-0 Yes [id number] 4mg Take 1 Univers (ZOFRAN 1-28 tablet by ity of ODT) 4 mg 00:00: mouth [place] disintegrat 00 every 8 Medic al ing tablet (eight) Branch hours as needed for Nausea and Vomiting (N/V). ondansetron 2019-0 Yes [id number] 4mg Take 1 Univers (ZOFRAN 1-28 tablet by ity of ODT) 4 mg 00:00: mouth [place] disintegrat 00 every 8 Medic al ing tablet (eight) Branch hours as needed for Nausea and Vomiting (N/V). ondansetron 2019-0 Yes [id number] 4mg Take 1 Univers (ZOFRAN 1-28 tablet by ity of ODT) 4 mg 00:00: mouth [place] disintegrat 00 every 8 Medic al ing tablet (eight) Branch hours as needed for Nausea and Vomiting (N/V). ondansetron 2019-0 Yes [id number] 4mg Take 1 Univers (ZOFRAN 1-28 tablet by ity of ODT) 4 mg 00:00: mouth [place] disintegrat 00 every 8 Medic al ing tablet (eight) Branch hours as needed for Nausea and Vomiting (N/V). ondansetron 2019-0 Yes [id number] 4mg Take 1 Univers (ZOFRAN 1-28 tablet by ity of ODT) 4 mg 00:00: mouth [place] disintegrat 00 every 8 Medic al ing tablet (eight) Branch hours as needed for Nausea and Vomiting (N/V). ondansetron 2019-0 Yes [id number] 4mg Take 1 Univers (ZOFRAN 1-28 tablet by ity of ODT) 4 mg 00:00: mouth [place] disintegrat 00 every 8 Medic al ing tablet (eight) Branch hours as needed for Nausea and Vomiting (N/V). ondansetron 2019-0 Yes [id number] 4mg Take 1 Univers (ZOFRAN 1-28 tablet by ity of ODT) 4 mg 00:00: mouth [place] disintegrat 00 every 8 Medic al ing tablet (eight) Branch hours as needed for Nausea and Vomiting (N/V). ondansetron 2019-0 Yes [id number] 4mg Take 1 Univers (ZOFRAN 1-28 tablet by ity of ODT) 4 mg 00:00: mouth [place] disintegrat 00 every 8 Medic al ing tablet (eight) Branch hours as needed for Nausea and Vomiting (N/V). ondansetron 2019-0 Yes [id number] 4mg Take 1 Univers (ZOFRAN 1-28 tablet by ity of ODT) 4 mg 00:00: mouth [place] disintegrat 00 every 8 Medic al ing tablet (eight) Branch hours as needed for Nausea and Vomiting (N/V). ondansetron 2019-0 Yes [id number] 4mg Take 1 Univers (ZOFRAN 1-28 tablet by ity of ODT) 4 mg 00:00: mouth [place] disintegrat 00 every 8 Medic al ing tablet (eight) Branch hours as needed for Nausea and Vomiting (N/V). ondansetron 2019-0 Yes [id number] 4mg Take 1 Univers (ZOFRAN 1-28 tablet by ity of ODT) 4 mg 00:00: mouth [place] disintegrat 00 every 8 Medic al ing tablet (eight) Branch hours as needed for Nausea and Vomiting (N/V). ondansetron 2019-0 Yes [id number] 4mg Take 1 Univers (ZOFRAN 1-28 tablet by ity of ODT) 4 mg 00:00: mouth [place] disintegrat 00 every 8 Medic al ing tablet (eight) Branch hours as needed for Nausea and Vomiting (N/V). ondansetron 2019-0 Yes [id number] 4mg Take 1 Univers (ZOFRAN 1-28 tablet by ity of ODT) 4 mg 00:00: mouth [place] disintegrat 00 every 8 Medic al ing tablet (eight) Branch hours as needed for Nausea and Vomiting (N/V). ondansetron 2019-0 Yes [id number] 4mg Take 1 Univers (ZOFRAN 1-28 tablet by ity of ODT) 4 mg 00:00: mouth [place] disintegrat 00 every 8 Medic al ing tablet (eight) Branch hours as needed for Nausea and Vomiting (N/V). ondansetron 2019-0 Yes [id number] 4mg Take 1 Univers (ZOFRAN 1-28 tablet by ity of ODT) 4 mg 00:00: mouth [place] disintegrat 00 every 8 Medic al ing tablet (eight) Branch hours as needed for Nausea and Vomiting (N/V). ondansetron 2019-0 Yes [id number] 4mg Take 1 Univers (ZOFRAN 1-28 tablet by ity of ODT) 4 mg 00:00: mouth [place] disintegrat 00 every 8 Medic al ing tablet (eight) Branch hours as needed for Nausea and Vomiting (N/V). ondansetron 2019-0 Yes [id number] 4mg Take 1 Univers (ZOFRAN 1-28 tablet by ity of ODT) 4 mg 00:00: mouth [place] disintegrat 00 every 8 Medic al ing tablet (eight) Branch hours as needed for Nausea and Vomiting (N/V). ondansetron 2019-0 Yes [id number] 4mg Take 1 Univers (ZOFRAN 1-28 tablet by ity of ODT) 4 mg 00:00: mouth [place] disintegrat 00 every 8 Medic al ing tablet (eight) Branch hours as needed for Nausea and Vomiting (N/V). ondansetron 2019-0 Yes [id number] 4mg Take 1 Univers (ZOFRAN 1-28 tablet by ity of ODT) 4 mg 00:00: mouth [place] disintegrat 00 every 8 Medic al ing tablet (eight) Branch hours as needed for Nausea and Vomiting (N/V). ondansetron 2019-0 Yes [id number] 4mg Take 1 Univers (ZOFRAN 1-28 tablet by ity of ODT) 4 mg 00:00: mouth [place] disintegrat 00 every 8 Medic al ing tablet (eight) Branch hours as needed for Nausea and Vomiting (N/V). ondansetron 2019-0 Yes [id number] 4mg Take 1 Univers (ZOFRAN 1-28 tablet by ity of ODT) 4 mg 00:00: mouth [place] disintegrat 00 every 8 Medic al ing tablet (eight) Branch hours as needed for Nausea and Vomiting (N/V). ondansetron 2019-0 Yes [id number] 4mg Take 1 Univers (ZOFRAN 1-28 tablet by ity of ODT) 4 mg 00:00: mouth [place] disintegrat 00 every 8 Medic al ing tablet (eight) Branch hours as needed for Nausea and Vomiting (N/V). ondansetron 2019-0 Yes [id number] 4mg Take 1 Univers (ZOFRAN 1-28 tablet by ity of ODT) 4 mg 00:00: mouth [place] disintegrat 00 every 8 Medic al ing tablet (eight) Branch hours as needed for Nausea and Vomiting (N/V). ondansetron 2019-0 Yes [id number] 4mg Take 1 Univers (ZOFRAN 1-28 tablet by ity of ODT) 4 mg 00:00: mouth [place] disintegrat 00 every 8 Medic al ing tablet (eight) Branch hours as needed for Nausea and Vomiting (N/V). ondansetron Yes [id number] 4mg Take 1 Univers (ZOFRAN 1-28 tablet by ity of ODT) 4 mg 00:00: mouth [place] disintegrat 00 every 8 Medic al ing tablet (eight) Branch hours as needed for Nausea and Vomiting (N/V). ondansetron Yes [id number] 4mg Take 1 Univers (ZOFRAN 1-28 tablet by ity of ODT) 4 mg 00:00: mouth [place] disintegrat 00 every 8 Medic al ing tablet (eight) Branch hours as needed for Nausea and Vomiting (N/V). ondansetron Yes [id number] 4mg Take 1 Univers (ZOFRAN 1-28 tablet [...] [facility] St en-codeine 0-09 tablet by Luroxy s (TYLENOL 17:55: mouth Medical #4) 300-60 [...] St en-codeine 0-09 tablet by Andres s (TYLENOL 17:55: mouth Medical #4) 300-60 10 every 6 Center mg per (six) tablet hours as needed for Pain. Immunizations Ordered Filled Immunization Date Status Comments [facility] e Immunization Name Name SARS-COV-2 COVID-19 2021-03-03 Completed Unive rsity of PFIZER VACCINE 00:00:00 [facility] SARS-COV-2 COVID-19 2021-03-03 Completed Unive rsity of PFIZER VACCINE 00:00:00 [facility] SARS-COV-2 COVID-19 2021-03-03 Completed Unive rsity of PFIZER VACCINE 00:00:00 [facility] SARS-COV-2 COVID-19 2021-03-03 Completed Unive rsity of PFIZER VACCINE 00:00:00 [facility] SARS-COV-2 COVID-19 2021-03-03 Completed Unive rsity of PFIZER VACCINE 00:00:00 [facility] SARS-COV-2 COVID-19 2021-03-03 Completed Unive rsity of PFIZER VACCINE 00:00:00 [facility] SARS-COV-2 COVID-19 2021-03-03 Completed Unive rsity of PFIZER VACCINE 00:00:00 [place] [facility] SARS-COV-2 COVID-19 2021-03-03 Completed Unive rsity of PFIZER VACCINE 00:00:00 [facility] Branch SARS-COV-2 COVID-19 2021-03-03 Completed Unive rsity of PFIZER VACCINE 00:00:00 [facility] Branch SARS-COV-2 COVID-19 2021-03-03 Completed Unive rsity of PFIZER VACCINE 00:00:00 [facility] Branch SARS-COV-2 COVID-19 2021-03-03 Completed Unive rsity of PFIZER VACCINE 00:00:00 [facility] Branch SARS-COV-2 COVID-19 2021-03-03 Completed Unive rsity of PFIZER VACCINE 00:00:00 [facility] Branch SARS-COV-2 COVID-19 2021-03-03 Completed Unive rsity of PFIZER VACCINE 00:00:00 [facility] Branch SARS-COV-2 COVID-19 2021-03-03 Completed Unive rsity of PFIZER VACCINE 00:00:00 [facility] Branch SARS-COV-2 COVID-19 2021-03-03 Completed Unive rsity of PFIZER VACCINE 00:00:00 [facility] SARS-COV-2 COVID-19 2021-03-03 Completed Unive rsity of PFIZER VACCINE 00:00:00 [facility] SARS-COV-2 COVID-19 2021-03-03 Completed Unive rsity of PFIZER VACCINE 00:00:00 [facility] SARS-COV-2 COVID-19 2021-03-03 Completed Unive rsity of PFIZER VACCINE 00:00:00 [facility] SARS-COV-2 COVID-19 2021-03-03 Completed Unive rsity of PFIZER VACCINE 00:00:00 [facility] SARS-COV-2 COVID-19 2021-03-03 Completed Unive rsity of PFIZER VACCINE 00:00:00 [facility] SARS-COV-2 COVID-19 2021-03-03 Completed Unive rsity of PFIZER VACCINE 00:00:00 [facility] SARS-COV-2 COVID-19 2021-03-03 Completed Unive rsity of PFIZER VACCINE 00:00:00 [facility] SARS-COV-2 COVID-19 2021-03-03 Completed Unive rsity of PFIZER VACCINE 00:00:00 [facility] SARS-COV-2 COVID-19 2021-03-03 Completed Unive rsity of PFIZER VACCINE 00:00:00 [facility] SARS-COV-2 COVID-19 2021-03-03 Completed Unive rsity of PFIZER VACCINE 00:00:00 [facility] SARS-COV-2 COVID-19 2021-03-03 Completed Unive rsity of PFIZER VACCINE 00:00:00 [facility] SARS-COV-2 COVID-19 2021-03-03 Completed Unive rsity of PFIZER VACCINE 00:00:00 [facility] Influenza Virus 2018-02-13 Completed Universit y of Vaccine Quad IM 3+ 00:00:00 [facility] Influenza Virus 2018-02-13 Completed Universit y of Vaccine Quad IM 3+ 00:00:00 [facility] Influenza Virus 2018-02-13 Completed Universit y of Vaccine Quad IM 3+ 00:00:00 [facility] Influenza Virus 2018-02-13 Completed Universit y of Vaccine Quad IM 3+ 00:00:00 [facility] Influenza Virus 2018-02-13 Completed Universit y of Vaccine Quad IM 3+ 00:00:00 [facility] Influenza Virus 2018-02-13 Completed Universit y of Vaccine Quad IM 3+ 00:00:00 [facility] Influenza Virus 2018-02-13 Completed Universit y of Vaccine Quad IM 3+ 00:00:00 [facility] Influenza Virus 2018-02-13 Completed Universit y of Vaccine Quad IM 3+ 00:00:00 [facility] Influenza Virus 2018-02-13 Completed Universit y of Vaccine Quad IM 3+ 00:00:00 [facility] Influenza Virus 2018-02-13 Completed Universit y of Vaccine Quad IM 3+ 00:00:00 [facility] Influenza Virus 2018-02-13 Completed Universit y of Vaccine Quad IM 3+ 00:00:00 [facility] Influenza Virus 2018-02-13 Completed Universit y of Vaccine Quad IM 3+ 00:00:00 [facility] Influenza Virus 2018-02-13 Completed Universit y of Vaccine Quad IM 3+ 00:00:00 [facility] Influenza Virus 2018-02-13 Completed Universit y of Vaccine Quad IM 3+ 00:00:00 [facility] Influenza Virus 2018-02-13 Completed Universit y of Vaccine Quad IM 3+ 00:00:00 [facility] Influenza Virus 2018-02-13 Completed Universit y of Vaccine Quad IM 3+ 00:00:00 [facility] Influenza Virus 2018-02-13 Completed Universit y of Vaccine Quad IM 3+ 00:00:00 [facility] Influenza Virus 2018-02-13 Completed Universit y of Vaccine Quad IM 3+ 00:00:00 [facility] Influenza Virus 2018-02-13 Completed Universit y of Vaccine Quad IM 3+ 00:00:00 [facility] Influenza Virus 2018-02-13 Completed Universit y of Vaccine Quad IM 3+ 00:00:00 [facility] Influenza Virus 2018-02-13 Completed Universit y of Vaccine Quad IM 3+ 00:00:00 [facility] Influenza Virus 2018-02-13 Completed Universit y of Vaccine Quad IM 3+ 00:00:00 [facility] Influenza Virus 2018-02-13 Completed Universit y of Vaccine Quad IM 3+ 00:00:00 [facility] Influenza Virus 2018-02-13 Completed Universit y of Vaccine Quad IM 3+ 00:00:00 [facility] Influenza Virus 2018-02-13 Completed Universit y of Vaccine Quad IM 3+ 00:00:00 [facility] Influenza Virus 2018-02-13 Completed Universit y of Vaccine Quad IM 3+ 00:00:00 [facility] Influenza Virus 2018-02-13 Completed Universit y of Vaccine Quad IM 3+ 00:00:00 [facility] Influenza Four-QIV 2018-02-[address] [facility] [...] Time Observation Value Comments Source Systolic blood 2022-05-07 113 mm[Hg] University of pressure 17:43:00 [facility] Diastolic blood 2022-05-07 79 mm[Hg] University o f pressure 17:43:00 [facility] Heart rate 2022-05-07 80 /min University of 17:43:00 [facility] Body temperature 2022-05-07 36.17 Elisha University of 17:43:00 [facility] Respiratory rate 2022-05-07 18 /min University of 17:43:00 [facility] Oxygen saturation 2022-05-07 100 /min University of in Arterial blood 17:43:00 [facility] Pulse oximetry Branch Body weight 2022-05-07 62.596 kg University of 10:15:00 [facility] BMI 2022-05-07 20.38 kg/m2 University of 10:15:00 [facility] Body height 2022-05-05 175.3 cm University of 03:01:00 [facility] Systolic blood 2022-05-06 154 mm[Hg] University of pressure 17:29:54 [facility] Diastolic blood 2022-05-06 99 mm[Hg] University o f pressure 17:29:54 [facility] Respiratory rate 2022-05-06 12 /min University of 17:29:54 [facility] Oxygen saturation 2022-05-06 99 /min [facility] in Arterial blood 17:29:54 [facility] Pulse oximetry Branch Heart rate 2022-05-06 96 /min University 16:47:21 [facility] Body temperature 2022-05-06 36.44 Elisha University of 14:02:00 [facility] Body height 2022-05-05 175.3 cm University of 03:01:00 [facility] Body weight 2022-05-05 62.5 kg University of 03:01:00 [facility] BMI 2022-05-05 20.38 kg/m2 University of 03:01:00 [facility] Systolic blood 2022-04-21 119 mm[Hg] University of pressure 19:34:00 [facility] Diastolic blood 2022-04-21 84 mm[Hg] University o f pressure 19:34:00 [facility] Heart rate 2022-04-21 101 /min University of 19:34:00 [facility] Body temperature 2022-04-21 35.28 Elisha University of 19:34:00 [facility] Respiratory rate 2022-04-21 18 /min University of 19:34:00 [facility] Oxygen saturation 2022-04-21 99 /min University of in Arterial blood 19:34:00 [facility] by Pulse oximetry Branch Body weight 2022-04-19 59.512 kg University of 10:15:00 [facility] BMI 2022-04-19 20.55 kg/m2 University of 10:15:00 [facility] Body height 2022-04-16 170.2 cm University of 09:39:00 [facility] Systolic blood 2022-04-19 155 mm[Hg] University of pressure 21:49:16 [facility] Diastolic blood 2022-04-19 93 mm[Hg] University o f pressure 21:49:16 [facility] Respiratory rate 2022-04-19 15 /min University of 21:49:16 [facility] Oxygen saturation 2022-04-19 98 /min University of in Arterial blood 21:49:16 [facility] Pulse oxim[facility] Branch Heart rate 2022-04-19 73 /min University of 20:14:04 [facility] Body temperature 2022-04-19 36.06 Elisha University of 14:31:00 [facility] Body weight 2022-04-19 59.512 kg University of 10:15:00 [facility] BMI 2022-04-19 20.55 kg/m2 University of 10:15:00 [facility] Body height 2022-04-16 170.2 cm University of 09:39:00 [facility] Systolic blood 2022-03-18 164 mm[Hg] University of pressure 17:00:00 [facility] Diastolic blood 2022-03-18 99 mm[Hg] University o f pressure 17:00:00 [facility] Heart rate 2022-03-18 113 /min University of 17:00:00 [facility] Oxygen saturation 2022-03-18 99 /min University of in Arterial blood 17:00:00 [facility] by Pulse oximetry Branch Body height 2022-03-18 170.2 cm University of 16:57:00 [facility] Body weight 2022-03-18 62.687 kg University of 16:57:00 [facility] BMI 2022-03-18 21.65 kg/m2 University of 16:57:00 [facility] Systolic blood 2022-03-09 115 mm[Hg] University of pressure 16:33:00 [facility] Diastolic blood 2022-03-09 74 mm[Hg] University o f pressure 16:33:00 [facility] Heart rate 2022-03-09 91 /min University of 16:33:00 [facility] Body temperature 2022-03-09 36.5 Elisha University of 16:33:00 [facility] Respiratory rate 2022-03-09 18 /min University of 16:33:00 [facility] Oxygen saturation 2022-03-09 95 /min University of in Arterial blood 16:33:00 [facility] Pulse [facility] Body height 2022-03-07 175.3 cm University of 03:34:00 [facility] Body weight 2022-03-07 68.04 kg University of 03:34:00 [facility] BMI 2022-03-07 22.15 kg/m2 University of 03:34:00 [facility] Respiratory rate 2022-03-07 15 /min University of 17:37:00 [facility] Systolic blood 2022-03-07 150 mm[Hg] University of pressure 12:39:00 [facility] Diastolic blood 2022-03-07 92 mm[Hg] University o f pressure 12:39:00 [facility] Heart rate 2022-03-07 113 /min University of 12:39:00 [facility] Body temperature 2022-03-07 36.67 Elisha University of 12:39:00 [facility] Respiratory rate 2022-03-07 18 /min University of 12:39:00 [facility] Oxygen saturation 2022-03-07 98 /min University of in Arterial blood 12:39:00 [place] [facility] Pulse oxim[facility] Body height 2022-03-07 175.3 cm University of 03:34:00 [facility] Body weight 2022-03-07 68.04 kg University of 03:34:00 [facility] BMI 2022-03-07 22.15 kg/m2 University of 03:34:00 [facility] Systolic blood 2021-03-03 109 mm[Hg] University of pressure 16:44:00 [facility] Diastolic blood 2021-03-03 81 mm[Hg] [facility] pressure 16:44:00 [facility] Heart rate 2021-03-03 85 /min [facility] 16:44:00 [facility] Body temperature 2021-03-03 36.33 Elisha [facility] 16:44:00 [facility] Respiratory rate 2021-03-03 16 /min [facility] 16:44:00 [facility] Oxygen saturation 2021-03-03 93 /min [facility] in Arterial blood 16:44:00 [facility] Pulse oximetry [place] Body weight 2021-03-03 77.384 kg [facility] 09:09:00 [facility] BMI 2021-03-03 25.19 kg/m2 [facility] 09:09:00 [facility] Body height 2021-03-01 175.3 cm Simultaneous [facility] 18:25:00 filing. User may [facility] not have seen Branch previous data. Procedures Procedure Date / Time Performing Clinician Source Performed POCT GLUCOSE (AUTOMATED) 2022-05-07 19:03:00 Ariel Denson [facility] POCT GLUCOSE (AUTOMATED) 2022-05-07 19:03:00 Ariel Denson [facility] POCT GLUCOSE (AUTOMATED) 2022-05-07 14:55:00 Ariel Denson [facility] POCT GLUCOSE (AUTOMATED) 2022-05-07 14:55:00 Ariel Denson [facility] POCT GLUCOSE (AUTOMATED) 2022-05-07 10:13:00 Ariel Denson [facility] POCT GLUCOSE (AUTOMATED) 2022-05-07 10:13:00 Ariel Denson versity [facility] MAGNESIUM 2022-05-07 07:56:00 [facility] BASIC METABOLIC PANEL (NA, 2022-05-07 07:56:00 Greyson Kim [facility] K, CL, CO2, GLUCOSE, BUN, [facility] CREATININE, CA) CBC WITH DIFF 2022-05-07 07:56:00 Greyson Kim [facility] MAGNESIUM 2022-05-07 07:56:00 [facility] BASIC METABOLIC PANEL (NA, 2022-05-07 07:56:00 Greyson Kim [facility] K, CL, CO2, GLUCOSE, BUN, [facility] CREATININE, CA) CBC WITH DIFF 2022-05-07 07:56:00 [facility] POCT GLUCOSE (AUTOMATED) 2022-05-07 07:32:00 SouAriel cain Uni versity of [facility] POCT GLUCOSE (AUTOMATED) 2022-05-07 07:32:00 Souant, Mild Uni versity of [facility] POCT GLUCOSE (AUTOMATED) 2022-05-07 01:26:00 Souant, Mild Uni [facility] of [facility] POCT GLUCOSE (AUTOMATED) 2022-05-07 01:26:00 Ariel Denson Uni [facility] of [facility] POCT GLUCOSE (AUTOMATED) 2022-05-07 01:02:00 Souant, Mild Uni [facility] POCT GLUCOSE (AUTOMATED) 2022-05-07 01:02:00 SouAriel cain [facility] POCT GLUCOSE (AUTOMATED) 2022-05-06 21:39:00 Ariel Denson [facility] POCT GLUCOSE (AUTOMATED) 2022-05-06 21:39:00 Ariel Denson Uni [facility] ACTIVATED PARTIAL THRMPLAS 2022-05-06 21:31:00 Isaiah Palmer [facility] ACTIVATED PARTIAL THRMPLAS 2022-05-06 21:31:00 Isaiah Palmer [facility] POCT ACT LOW RANGE 2022-05-06 17:45:00 Ariel Denson [facility] POCT ACT LOW RANGE 2022-05-06 17:45:00 [facility] CARDIAC CATHETERIZATION 2022-05-06 17:44:38 Ariel Denson [facility] ersity of [facility] CARDIAC CATHETERIZATION 2022-05-06 17:44:38 [facility] ersity of [facility] CARDIAC CATHETERIZATION 2022-05-06 17:44:38 Ammy [facility] ersity of [facility] CARDIAC CATHETERIZATION 2022-05-06 17:44:38 Ammy [facility] ersity of [facility] CARDIAC CATHETERIZATION 2022-05-06 17:44:38 [facility] ersity of [facility] CARDIAC CATHETERIZATION 2022-05-06 17:44:38 [facility] ersity of [facility] POCT ACT LOW RANGE 2022-05-06 17:00:00 [facility] POCT ACT LOW RANGE 2022-05-06 17:00:00 [facility] CATH PROCEDURE LOG 2022-05-06 16:49:08 [facility] y of [facility] CATH PROCEDURE LOG 2022-05-06 16:49:08 [facility] y of [facility] HB ECG ROUTINE & RHYTHM 2022-05-06 14:08:11 Julio [facility] HB ECG ROUTINE & RHYTHM 2022-05-06 14:08:11 Julio [facility] POCT GLUCOSE (AUTOMATED) 2022-05-06 14:05:00 Ariel Denson Uni vers[facility] POCT GLUCOSE (AUTOMATED) 2022-05-06 14:05:00 Ariel Denson Uni vers[facility] POCT GLUCOSE (AUTOMATED) 2022-05-06 12:32:00 Ariel Denson Uni [facility] POCT GLUCOSE (AUTOMATED) 2022-05-06 12:32:00 Ariel Denson Uni vers[facility] MAGNESIUM 2022-05-06 10:57:00 Antonio Cabral [facility] TROPONIN I 2022-05-06 10:57:00 Antonio Cabral [facility] BASIC METABOLIC PANEL (NA, 2022-05-06 10:57:00 Isaiah Palmer [facility] K, CL, CO2, GLUCOSE, BUN, Medica l Branch CREATININE, CA) CBC WITH DIFF 2022-05-06 10:57:00 Spencer [facility] ACTIVATED PARTIAL THRMPLAS 2022-05-06 10:57:00 Isaiah Palmer [facility] MAGNESIUM 2022-05-06 10:57:00 Misha [facility] TROPONIN I 2022-05-06 10:57:00 Misha [facility] BASIC METABOLIC PANEL (NA, 2022-05-06 10:57:00 Isaiah Palmer [facility] K, CL, CO2, GLUCOSE, BUN, Medica l Branch CREATININE, CA) CBC WITH DIFF 2022-05-06 10:57:00 Spencer [facility] ACTIVATED PARTIAL THRMPLAS 2022-05-06 10:57:00 Isaiah Palmer [facility] POCT GLUCOSE (AUTOMATED) 2022-05-06 10:25:00 [facility] ([facility]OM[facility]) 2022-05-06 10:25:00 [facility] PO[facility] GLUCOSE (AUTOMATED) 2022-05-06 05:34:00 Ariel Denson [facility] POCT GLUCOSE (AUTOMATED) 2022-05-06 05:34:00 SouMil caind [facility] POCT GLUCOSE (AUTOMATED) 2022-05-06 04:15:00 Ariel Denson [facility] POCT GLUCOSE (AUTOMATED) 2022-05-06 04:15:00 [facility] ACTIVATED PARTIAL THRMPLAS 2022-05-06 02:23:00 Isaiah Palmer [facility] ACTIVATED PARTIAL THRMPLAS 2022-05-06 02:23:00 Isaiah Palmer [facility] POCT GLUCOSE (AUTOMATED) 2022-05-05 23:12:00 AmmyAriel cain [facility] POCT GLUCOSE (AUTOMATED) 2022-05-05 23:12:00 AmmyAriel [facility] POCT GLUCOSE (AUTOMATED) 2022-05-05 19:18:00 Ariel Denson [facility] POCT GLUCOSE (AUTOMATED) 2022-05-05 19:18:00 AmmyAriel [facility] ACTIVATED PARTIAL THRMPLAS 2022-05-05 18:28:00 Isaiah Palmer [facility] ACTIVATED PARTIAL THRMPLAS 2022-05-05 18:28:00 Isaiah Palmer [facility] TROPONIN I 2022-05-05 18:26:00 Jt Palmer [facility] TROPONIN I 2022-05-05 18:26:00 Jt Palmer [facility] HB ECG ROUTINE & RHYTHM 2022-05-05 13:58:39 [facility] 2022-05-05 13:58:39 [facility] PARTIAL THRMPLAS 2022-05-05 11:27:00 Isaiah Palmer [facility] ACTIVATED PARTIAL THRMPLAS 2022-05-05 11:27:00 Isaiah Palmer [facility] MAGNESIUM 2022-05-05 10:51:00 Jt Palmer [facility] TROPONIN I 2022-05-05 10:51:00 Jt Palmer [facility] BASIC METABOLIC PANEL (NA, 2022-05-05 10:51:00 Isaiah Palmer [facility] K, CL, CO2, GLUCOSE, BUN, Medica l Branch CREATININE, CA) CBC WITH DIFF 2022-05-05 10:51:00 Jt Palmer [facility] PROTHROMBIN TIME / INR 2022-05-05 10:51:00 [facility] 2022-05-05 10:51:00 Isaiah Palmer [facility] MAGNESIUM 2022-05-05 10:51:00 Jt Palmer [facility] TROPONIN I 2022-05-05 10:51:00 Jt Palmer [facility] BASIC METABOLIC PANEL (NA, 2022-05-05 10:51:00 Isaiah Palmer [facility] K, CL, CO2, GLUCOSE, BUN, Medica l Branch CREATININE, CA) CBC WITH DIFF 2022-05-05 10:51:00 Jt Palmer [facility] PROTHROMBIN TIME / INR 2022-05-05 10:51:00 [facility] THRMPLAS 2022-05-05 10:51:00 Isaiah Palmer [facility] HB ECG ROUTINE & RHYTHM 2022-05-05 03:56[facility]06 [facility]THM 2022-05-05 03:56:06 [facility] PO[facility] GLUCOSE (AUTOMATED) 2022-04-21 18:57:00 [facility]) 2022-04-21 16:47:00 [facility] (AUTOMATED) 2022-04-21 13:59:00 [facility] (AUTOMATED) 2022-04-21 06:41:00 [facility]SE (AUTOMATED) 2022-04-21 02:56:00 [facility] (AUTOMATED) 2022-04-20 22:45:00 [facility] (AUTOMATED) 2022-04-20 22:45:00 Shey Francis versity of [facility] TRANSTHORACIC ECHO (TTE) 2022-04-20 20:08:05 Aron [place] versity of [facility] TRANSTHORACIC ECHO (TTE) 2022-04-20 20:08:05 Aron York Uni versity of [facility] POCT GLUCOSE (AUTOMATED) 2022-04-20 18:08:00 Shey Francis versity of [facility] POCT GLUCOSE (AUTOMATED) 2022-04-20 18:08:00 Shey Francis versity of [facility] TROPONIN I 2022-04-20 17:25:00 Emely [facility] TROPONIN I 2022-04-20 17:25:00 Emely [facility] HB ECG ROUTINE & RHYTHM 2022-04-20 16:00:18 Jose Han [facility] [place] STRIP [facility] HB ECG ROUTINE & RHYTHM 2022-04-20 16:00:18 Jose Han U niversity of [facility] POCT GLUCOSE (AUTOMATED) 2022-04-20 14:12:00 Shey Francis versity of [facility] POCT GLUCOSE (AUTOMATED) 2022-04-20 14:12:00 Shey Francis versity of [facility] POCT GLUCOSE (AUTOMATED) 2022-04-20 05:50:00 Shey Francis versity of [facility] POCT GLUCOSE (AUTOMATED) 2022-04-20 05:50:00 Shey Francis versity of [facility] POCT GLUCOSE (AUTOMATED) 2022-04-20 02:47:00 Shey Francis versity of [facility] POCT GLUCOSE (AUTOMATED) 2022-04-20 02:47:00 Shey Francis versity of [facility] ACTIVATED PARTIAL THRMPLAS 2022-04-20 00:36:00 Ayana Smith [facility] ACTIVATED PARTIAL THRMPLAS 2022-04-20 00:36:00 LuisAyana Levar [facility] POCT GLUCOSE (AUTOMATED) 2022-04-19 23:58:00 [facility] (AUTOMATED) 2022-04-19 23:58:[address] [facility] CARDIAC CATHETERIZATION 2022-04-19 21:42:42 Chanell [facility] CARDIAC CATHETERIZATION 2022-04-19 21:42:42 Chanell [facility] CARDIAC CATHETERIZATION 2022-04-19 21:42:42 Chanell [facility] CARDIAC CATHETERIZATION 2022-04-19 21:42:42 Chanell [facility] CARDIAC CATHETERIZATION 2022-04-19 21:42:42 Chanell [facility] CARDIAC CATHETERIZATION 2022-04-19 21:42:42 [facility] CARDIAC CATHETERIZATION 2022-04-19 21:42:42 [facility] CARDIAC CATHETERIZATION 2022-04-19 21:42:42 [facility] CARDIAC CATHETERIZATION 2022-04-19 21:42:[facility] 2022-04-19 21:42:42 [facility] CATH PROCEDURE LOG 2022-04-19 20:27:54 [facility] CATH PROCEDURE LOG 2022-04-19 20:27[facility]ATED) 2022-04-19 15:14:00 [facility]SE (AUTOMATED) 2022-04-19 15:14:00 [facility] PO[facility] GLUCOSE (AUTOMATED) 2022-04-19 14:27:00 [facility] PO[facility] GLUCOSE (AUTOMATED) 2022-04-19 14:27:00 Shey Francis versity of [facility] MAGNESIUM 2022-04-19 10:33:00 [facility] BASIC METABOLIC PANEL (NA, 2022-04-19 10:33:00 [facility] K, CL, CO2, GLUCOSE, BUN, [facility] CREATININE, CA) CBC WITH DIFF 2022-04-19 10:33:[address] [facility] 2022-04-19 10:33:[address] [facility] [address] BASIC METABOLIC PANEL (NA, 2022-04-19 10:33:00 [facility] K, CL, CO2, GLUCOSE, BUN, [facility] CREATININE, CA) CBC WITH DIFF 2022-04-19 10:33:[address] [facility] [address] POCT GLUCOSE (AUTOMATED) 2022-04-19 10:16:00 Shey Francis versity of [facility] POCT GLUCOSE (AUTOMATED) 2022-04-19 10:16:00 Shey Francis versity of [facility] POCT GLUCOSE (AUTOMATED) 2022-04-19 06:20:00 Sehy Francis [facility] POCT GLUCOSE (AUTOMATED) 2022-04-19 06:20:00 Shey Francis [facility] POCT GLUCOSE (AUTOMATED) 2022-04-19 03:08:00 Shey Francis [facility] POCT GLUCOSE (AUTOMATED) 2022-04-19 03:08:00 Shey Francis versity of [facility] POCT GLUCOSE (AUTOMATED) 2022-04-19 00:08:00 Shey Francis versity of [facility] POCT GLUCOSE (AUTOMATED) 2022-04-19 00:08:00 Shey Francis versity of [facility] POCT GLUCOSE (AUTOMATED) 2022-04-18 22:34:00 Shey Francis versity of [facility] POCT GLUCOSE (AUTOMATED) 2022-04-18 22:34:00 Shey Francis versity of [facility] POCT GLUCOSE (AUTOMATED) 2022-04-18 17:18:00 Shey Francis Uni versity of [facility] POCT GLUCOSE (AUTOMATED) 2022-04-18 17:18:00 Shey Francis vers[facility] of [facility] POCT GLUCOSE (AUTOMATED) 2022-04-18 14:44:00 Shey Francis versity of [facility] POCT GLUCOSE (AUTOMATED) 2022-04-18 14:44:00 Shey Francis versity of [facility] MAGNESIUM 2022-04-18 10:38:00 Cruz[facility] BASIC METABOLIC PANEL (NA, 2022-04-18 10:38:00 Roberto [facility] K, CL, CO2, GLUCOSE, BUN, [facility] CREATININE, CA) MAGNESIUM 2022-04-18 10:38:00 [facility] BASIC METABOLIC PANEL (NA, 2022-04-18 10:38:00 Roberto [facility] K, CL, CO2, GLUCOSE, BUN, [facility] CREATININE, CA) POCT GLUCOSE (AUTOMATED) 2022-04-18 10:28:00 Shey Francis vers[facility] of [facility] POCT GLUCOSE (AUTOMATED) 2022-04-18 10:28:00 Shey Francis vers[facility] of [facility] POCT GLUCOSE (AUTOMATED) 2022-04-18 06:11:00 Shey Francis [facility] of [facility] POCT GLUCOSE (AUTOMATED) 2022-04-18 06:11:00 Shey Francis [facility] of [facility] POCT GLUCOSE (AUTOMATED) 2022-04-18 02:46:00 Shey Francis Uni versity of [facility] POCT GLUCOSE (AUTOMATED) 2022-04-18 02:46:00 Shey Francis vers[facility] of [facility] POCT GLUCOSE (AUTOMATED) 2022-04-17 22:09:00 Shey Francis [facility] of [facility] POCT GLUCOSE (AUTOMATED) 2022-04-17 22:09:00 Shey Francis versity of [facility] COVID-19 (ID NOW RAPID 2022-04-17 18:33:00 [place] [facility] TESTING) [facility] LAB ONLY COVID 2022-04-17 18:33:00 [facility] INTERPRETATION [facility] COVID-19 (ID NOW RAPID 2022-04-17 18:33:00 [facility] TESTING) [facility] LAB ONLY COVID 2022-04-17 18:33:00 [facility] INTERPRETATION [facility] POCT GLUCOSE (AUTOMATED) 2022-04-17 18:25:00 Shey Francis Uni versity of [facility] POCT GLUCOSE (AUTOMATED) 2022-04-17 18:25:00 Shey Francis [facility] of [facility] POCT GLUCOSE (AUTOMATED) 2022-04-17 17:44:00 Shey Francis Uni vers[facility] of [facility] POCT GLUCOSE (AUTOMATED) 2022-04-17 17:44:00 Shey Francis Uni vers[facility] of [facility] POCT GLUCOSE (AUTOMATED) 2022-04-17 13:25:00 Shey Francis Uni versity of [facility] POCT GLUCOSE (AUTOMATED) 2022-04-17 13:25:00 Shey Francis Uni versity of [facility] MAGNESIUM 2022-04-17 10:39:00 Luis [facility] TROPONIN I 2022-04-17 10:39:00 Roberto [facility] BASIC METABOLIC PANEL (NA, 2022-04-17 10:39:00 Ayana Smith [facility] K, CL, CO2, GLUCOSE, BUN, Medica l Branch CREATININE, CA) ACTIVATED PARTIAL THRMPLAS 2022-04-17 10:39:00 Ayana Smith [facility] MAGNESIUM 2022-04-17 10:39:00 Luis Ayana [facility] TROPONIN I 2022-04-17 10:39:00 Roberto [facility] BASIC METABOLIC PANEL (NA, 2022-04-17 10:39:00 Ayana Smith [facility] K, CL, CO2, GLUCOSE, BUN, Medica [facility] Branch CREATININE, CA) ACTIVATED PARTIAL THRMPLAS 2022-04-17 10:39:00 Ayana Smith [facility] POCT GLUCOSE (AUTOMATED) 2022-04-17 10:37:[address] [facility] POCT GLUCOSE (AUTOMATED) 2022-04-17 10:37:[address] [facility] POCT GLUCOSE (AUTOMATED) 2022-04-17 05:50:[address] [facility] POCT GLUCOSE (AUTOMATED) 2022-04-17 05:50:[address] [facility] ACTIVATED PARTIAL THRMPLAS 2022-04-17 04:04:00 Ayana Smith [facility] ACTIVATED PARTIAL THRMPLAS 2022-04-17 04:04:00 Ayana Smith [facility] POCT GLUCOSE (AUTOMATED) 2022-04-17 02:37:[address] [facility] POCT GLUCOSE (AUTOMATED) 2022-04-17 02:37:[address] [facility] URINE DRUG (IMMUNOASSAY) - 2022-04-17 02:29:00 Ayana Smith [facility] COMPREHENSIVE DRUG SCREEN Medica l Branch URINALYSIS 2022-04-17 02:29:00 Brett Chaves [facility] GALV ONLY - URINE DRUG 2022-04-17 02:29:[address] [facility] (LCMSMS) - CHAI [facility] URINE DRUG (LCMSMS) - 2022-04-17 02:29:[address] [facility] BENZODIAZEPINES PANEL Medical Br anch URINE DRUG (IMMUNOASSAY) - 2022-04-17 02:29:00 Ayana Smith [facility] COMPREHENSIVE DRUG SCREEN Medica l Branch URINALYSIS 2022-04-17 02:29:00 Brett Chaves [facility] GALV ONLY - URINE DRUG 2022-04-17 02:29:[address] [facility] (LCMSMS) - CHAI PANEL Medical Br anch URINE DRUG (LCMSMS) - 2022-04-17 02:29:[address] [facility] BENZODIAZEPINES PANEL Medical Br anch POCT GLUCOSE (AUTOMATED) 2022-04-16 23:27:[address] [facility] POCT GLUCOSE (AUTOMATED) 2022-04-16 23:27:00 [facility] 2022-04-16 19:57:00 [facility] TROPONIN I 2022-04-16 19:57:00 [facility] ACTIVATED PARTIAL THRMPLAS 2022-04-16 19:56:00 Ayana Smith [facility] ACTIVATED PARTIAL THRMPLAS 2022-04-16 19:56:00 Ayana Smith [facility] POCT GLUCOSE (AUTOMATED) 2022-04-16 16:59:00 [facility]SE (AUTOMATED) 2022-04-16 16:59:[address] [facility] TROPONIN I 2022-04-16 12:13:00 Ayana Smith [facility] ACTIVATED PARTIAL THRMPLAS 2022-04-16 12:13:00 Ayana Smith [facility] TROPONIN I 2022-04-16 12:13:00 Ayana Smith [facility] ACTIVATED PARTIAL THRMPLAS 2022-04-16 12:13:00 Ayana Smith [facility] EKG-12 LEAD 2022-04-16 10:03:35 Brett Chaves [facility] EKG-12 LEAD 2022-04-16 10:03:35 Brett Chaves [facility] CT HEAD WO CONTRAST 2022-04-16 08:35:39 Brett Chaves [facility] CT HEAD WO CONTRAST 2022-04-16 08:35:39 Brett Chaves [facility] CT CHEST PULMONARY 2022-04-16 07:22:08 Brett Chaves [facility] ANGIOGRAM [facility] CT CHEST PULMONARY 2022-04-16 07:22:08 Brett Chaves [facility] 1 VW 2022-04-16 04:39:36 Brett Chaves [facility] XR CHEST 1 VW 2022-04-16 04:39:36 Brett Chaves [facility] CK (CREATINE KINASE) + MB 2022-04-16 03:58:00 [facility] 2022-04-16 03:58:00 Brett Chaves [facility] TROPONIN I 2022-04-16 03:58:00 Brett Chaves [facility] FREE T4 2022-04-16 03:58:00 Lucero Paredes [facility] THYROID STIMULATING 2022-04-16 03:58:00 Ayana Smith [facility] HORMONE [facility] COMP. METABOLIC PANEL 2022-04-16 03:58:[address] [facility] ([id number]) [facility] LIPID PANEL ([id number])(TOTAL 2022-04-16 03:58:00 Ayana Smith [facility] CHOLESTEROL, [facility] TRIGLYCERIDES, HDL) ETHANOL 2022-04-16 03:58:00 Brett Chaves [facility] SERUM DRUG (IMMUNOASSAY) - 2022-04-16 03:58:00 Ayana Smith [facility] COMPREHENSIVE DRUG SCREEN Medica l Branch CBC WITH DIFF 2022-04-16 03:58:00 Brett Chaves [facility] D-DIMER 2022-04-16 03:58:00 Brett Chaves [facility] ACTIVATED PARTIAL THRMPLAS 2022-04-16 03:58:00 Brett Chaves [facility] CK (CREATINE KINASE) + MB 2022-04-16 03:58:00 [facility] LIPASE 2022-04-16 03:58:00 Brett Chaves [facility] TROPONIN I 2022-04-16 03:58:00 Brett Chaves [facility] FREE T4 2022-04-16 03:58:00 Lucero Paredes [facility] THYROID STIMULATING 2022-04-16 03:58:00 Ayana Smith [facility] HORMONE [facility] COMP. METABOLIC PANEL 2022-04-16 03:58:[address] [facility] ([id number]) [facility] LIPID PANEL ([id number])(TOTAL 2022-04-16 03:58:00 Ayana Smith [facility] CHOLESTEROL, [facility] TRIGLYCERIDES, HDL) ETHANOL 2022-04-16 03:58:00 Brett Chaves [facility] SERUM DRUG (IMMUNOASSAY) - 2022-04-16 03:58:00 Ayana Smith [facility] COM[facility]HENSIVE [facility]CREEN [facility] WITH DIFF 2022-04-16 03:58:00 Brett Chaves [facility] D-DIMER 2022-04-16 03:58:00 Brett Chaves [facility] ACTIVATED PARTIAL THRMPLAS 2022-04-16 03:58:00 Brett Chaves [facility] CONSENT/REFUSAL FOR 2022-04-16 03:17:24 Doctor Unassigned, [facility] DIAGNOSIS [place] TREATMENT [place] [facility] CONSENT/REFUSAL FOR 2022-04-16 03:17:24 Doctor Unassigned, [facility] DIAGNOSIS AND TREATMENT [place] [facility] POCT GLUCOSE (AUTOMATED) 2022-03-09 19:52:00 [facility] PO[facility]SE (AUTOMATED) 2022-03-09 13:21:00 Lorraine [facility]izo [facility] POCT GLUCOSE (AUTOMATED) 2022-03-09 07:05:00 Lorraine Trevizo [facility] POCT GLUCOSE (AUTOMATED) 2022-03-09 04:04:00 Lorraine Trevizo [facility] POCT GLUCOSE (AUTOMATED) 2022-03-09 02:25:00 Lorraine Trevizo [facility] POCT GLUCOSE (AUTOMATED) 2022-03-08 21:55:00 Lorraine Trevizo [facility] POCT GLUCOSE (AUTOMATED) 2022-03-08 21:55:00 Lorraine Trevizo [facility] POCT GLUCOSE (AUTOMATED) 2022-03-08 17:18:00 Lorraine Trevizo [facility] POCT GLUCOSE (AUTOMATED) 2022-03-08 17:18:00 Lorraine Trevizo [facility] POCT GLUCOSE (AUTOMATED) 2022-03-08 12:55:00 Lorraine Trevizo [facility] POCT GLUCOSE (AUTOMATED) 2022-03-08 12:55:00 Lorraine Trevizo [facility] COMP. METABOLIC PANEL 2022-03-08 08:44:[address] [facility] ([id number]) [facility] CBC WITH DIFF 2022-03-08 08:44:00 Jorge White [facility] COMP. METABOLIC PANEL 2022-03-08 08:44:[address] [facility] ([id number]) [facility] CBC WITH DIFF 2022-03-08 08:44:00 Jorge White [facility] POCT GLUCOSE (AUTOMATED) 2022-03-08 05:40:00 Lorraine Trevizo Un iversity of [facility] POCT GLUCOSE (AUTOMATED) 2022-03-08 05:40:00 Lorraine Trevizo Un ivers[facility] of [facility] POCT GLUCOSE (AUTOMATED) 2022-03-08 02:17:00 Lorraine Trevizo Un [facility] POCT GLUCOSE (AUTOMATED) 2022-03-08 02:17:00 Lorraine Trevizo Un [facility] POCT GLUCOSE (AUTOMATED) 2022-03-07 23:06:00 Lorraine Trevizo Un [facility] POCT GLUCOSE (AUTOMATED) 2022-03-07 23:06:00 Lorraine Trevizo [facility] POCT GLUCOSE (AUTOMATED) 2022-03-07 22:13:00 Lorraine Trevizo [facility] POCT GLUCOSE (AUTOMATED) 2022-03-07 22:13:00 [facility] PELVIS <3 VW 2022-03-07 19:15:15 Eva [facility] XR PELVIS <3 VW 2022-03-07 19:15:15 Eva [facility] INTUBATION 2022-03-07 14:50:00 Gareth Galeana [facility] HIP HEMIARTHROPLASTY 2022-03-07 14:26:00 Tor [facility] HIP HEMIARTHROPLASTY 2022-03-07 14:26:00 Tor [facility] POCT GLUCOSE (AUTOMATED) 2022-03-07 12:41:00 Lorraine Trevizo Un [facility] POCT GLUCOSE (AUTOMATED) 2022-03-07 12:41:00 [facility] URINE DRUG (IMMUNOASSAY) - 2022-03-07 10:21:00 [facility] URINALYSIS 2022-03-07 10:21:00 Jorge White [facility] SODIUM, URINE RANDOM 2022-03-07 10:21:00 Jorge White [facility] PROTEIN CREAT RATIO URINE 2022-03-07 10:21:00 [facility] (IMMUNOASSAY) - 2022-03-07 10:21:00 Jorge White [facility] COMPREHENSIVE DRUG SCREEN Medica l Branch URINALYSIS 2022-03-07 10:21:00 Jorge White [facility] SODIUM, URINE RANDOM 2022-03-07 10:21:00 Jorge White [facility] PROTEIN CREAT RATIO URINE 2022-03-07 10:21:00 Jorge White [facility] URINE CULTURE 2022-03-07 10:20:00 Jorge White [facility] URINE CULTURE 2022-03-07 10:20:00 Pierce martin [facility] POCT GLUCOSE (AUTOMATED) 2022-03-07 08:43:00 Lorraine Trevizo [facility] POCT GLUCOSE (AUTOMATED) 2022-03-07 08:43:00 Lorraine Trevizo [facility] PHOSPHORUS 2022-03-07 08:26:00 Jorge White [facility] MAGNESIUM 2022-03-07 08:26:00 Pierce martin [facility] COMP. METABOLIC PANEL 2022-03-07 08:26:[address] [facility] ([id number]) [facility] CBC WITH DIFF 2022-03-07 08:26:00 Jorge White [facility] PROTHROMBIN TIME / INR 2022-03-07 08:26:00 Jorge White [facility] N-TERMINAL PRO-BNP 2022-03-07 08:26:00 Jorge White [facility] PHOSPHORUS 2022-03-07 08:26:00 Jorge White [facility] MAGNESIUM 2022-03-07 08:26:00 Pierce martin [facility] COMP. METABOLIC PANEL 2022-03-07 08:26:[address] [facility] ([id number]) Medical Branch CBC WITH DIFF 2022-03-07 08:26:00 Jorge White [facility] PROTHROMBIN TIME / INR 2022-03-07 08:26:00 Jorge White [facility] N-TERMINAL PRO-BNP 2022-03-07 08:26:00 Jorge White [facility] POCT GLUCOSE (AUTOMATED) 2022-03-07 04:13:00 Lor[facility] PO[facility]SE (AUTOMATED) 2022-03-07 04:13:00 Lor[facility] XR PELVIS <3 VW 2022-03-07 02:04:37 Lorraine Trevizo [facility] XR PELVIS <3 VW 2022-03-07 02:04:37 Lorraine Trevizo [facility] XR CHEST 1 VW 2022-03-07 01:58:10 Lorraine Trevizo [facility] XR HIPS 2 VW RIGHT 2022-03-07 01:58:10 Lorraine Trevizo [facility] XR CHEST 1 VW 2022-03-07 01:58:10 Lorraine Trevizo [facility] XR HIPS 2 VW RIGHT 2022-03-07 01:58:10 Lorraine Trevizo [facility] HB ECG ROUTINE & RHYTHM 2022-03-07 01:56:57 Lorraine Trevizo [facility] HB ECG ROUTINE & RHYTHM 2022-03-07 01:56:57 Lorraine Trevizo [facility] URIC ACID 2022-03-07 01:46:00 Jorge White [facility] MAGNESIUM 2022-03-07 01:46:00 Joreg White [facility] FREE T4 2022-03-07 01:46:00 Pierce martin [facility] COMP. METABOLIC PANEL 2022-03-07 01:46:00 Yarima, Wakili [facility] ([id number]) Medical Branch LIPID PANEL ([id number])(TOTAL 2022-03-07 01:46:00 Jorge White [facility] CHOLESTEROL, Medical Branch TRIGLYCERIDES, HDL) ETHANOL 2022-03-07 01:46:00 Pierce martin [facility] SEDIMENTATION RATE 2022-03-07 01:46:00 Pierce martin [facility] CBC WITH DIFF 2022-03-07 01:46:00 Lorraine Trevizo [facility] GLYCOSYLATED HEMOGLOBIN 2022-03-07 01:46:00 Pierce martin [facility] ([facility]) [facility] N-TERMINAL PRO-BNP 2022-03-07 01:46:00 Pierce martin [facility] FREE T3 2022-03-07 01:46:00 Pierce [facility] URIC ACID 2022-03-07 01:46:00 Pierce [facility] MAGNESIUM 2022-03-07 01:46:00 Pierce [facility] FREE T4 2022-03-07 01:46:00 Pierce [facility] COMP. METABOLIC PANEL 2022-03-07 01:46:[address] [facility] ([id number]) Medical Branch LIPID PANEL ([id number])(TOTAL 2022-03-07 01:46:00 Jorge White [facility] CHOLESTEROL, Medical Branch TRIGLYCERIDES, HDL) ETHANOL 2022-03-07 01:46:00 Jorge White [facility] SEDIMENTATION RATE 2022-03-07 01:46:00 Pierce [facility] CBC WITH DIFF 2022-03-07 01:46:00 Lorraine Trevizo [facility] GLYCOSYLATED HEMOGLOBIN 2022-03-07 01:46:00 Pierce [facility] (A1C) [facility] N-TERMINAL PRO-BNP 2022-03-07 01:46:00 Pierce [facility] FREE T3 2022-03-07 01:46:00 Jorge White [place] [facility] POCT GLUCOSE (AUTOMATED) 2022-03-07 01:45:00 Lorraine Trevizo [facility] POCT GLUCOSE (AUTOMATED) 2022-03-07 01:45:00 Lorraine Trevizo [facility] NOTICE OF PRIVACY 2022-03-07 01:33:58 Doctor Unassigned, [facility] PRACTICES [place] [facility] NOTICE OF PRIVACY 2022-03-07 01:33:58 Doctor Unassigned, [facility] PRACTICES [place] [facility] CONSENT/REFUSAL FOR 2022-03-07 01:32:07 Doctor Unassigned, [facility] DIAGNOSIS AND TREATMENT [place] [facility] CONSENT/REFUSAL FOR 2022-03-07 01:32:07 Doctor Unassigned, [facility] (AUTOMATED) 2021-03-03 17:28:00 Matt Ford Uni versity of [facility] POCT GLUCOSE (AUTOMATED) 2021-03-03 13:06:00 Matt Ford versity [facility] BASIC METABOLIC PANEL (NA, 2021-03-03 09:15:00 Matt Ford [facility] K, CL, CO2, GLUCOSE, BUN, Medica l Branch CREATININE, CA) CBC WITH DIFF 2021-03-03 09:15:00 Matt Ford o [facility] POCT GLUCOSE (AUTOMATED) 2021-03-03 03:19:00 Matt Ford versity of [facility] POCT GLUCOSE (AUTOMATED) 2021-03-03 00:52:00 Matt Ford versity of [facility] POCT GLUCOSE (AUTOMATED) 2021-03-02 22:20:00 Matt Ford versity of [facility] POCT GLUCOSE (AUTOMATED) 2021-03-02 17:14:00 Matt Ford Uni [facility] POCT GLUCOSE (AUTOMATED) 2021-03-02 12:59:00 Matt Ford versity of [facility] FREE T4 2021-03-02 09:44:00 Matt Ford [facility] BASIC METABOLIC PANEL (NA, 2021-03-02 09:44:00 Matt Ford [facility] K, CL, CO2, GLUCOSE, BUN, Medica l Branch CREATININE, CA) FREE T3 2021-03-02 09:44:00 [facility] ([facility]OMATED) 2021-03-02 01:03:00 [facility]ATED) 2021-03-01 21:37:[address] [facility] CRITICAL CARE 2021-03-01 21:20:20 Akira Winter [facility] POCT GLUCOSE (AUTOMATED) 2021-03-01 20:55:00 [facility]OMATED) 2021-03-01 18:17:00 [facility] PO[facility] (AUTOMATED) 2021-03-01 16:49:00 Akira Winter [facility] CT HEAD WO CONTRAST 2021-03-01 16:00:12 Akira Winter [facility] MAGNESIUM 2021-03-01 15:51:00 Akira Winter [facility] THYROID STIMULATING 2021-03-01 15:51:00 Usman [facility] HORMONE [facility] COMP. METABOLIC PANEL 2021-03-01 15:51:[address] [facility] ([id number]) [facility] CBC WITH DIFF 2021-03-01 15:51:00 Akira Winter [facility] GLYCOSYLATED HEMOGLOBIN 2021-03-01 15:51:00 Usman [facility] (A1C) Medical Branch COVID-19 (ID NOW RAPID 2021-03-01 15:51:[address] [facility] TESTING) Medical Branch LAB ONLY COVID 2021-03-01 15:51:00 Akira Winter [facility] INTERPRETATION [facility] HB ECG ROUTINE & RHYTHM 2021-03-01 15:45:[address] [facility] POCT GLUCOSE (AUTOMATED) 2021-03-01 15:42:[address] [facility] Plan of Care Planned Activity Planned Date Details Comments Source Future Scheduled 2021-02-[address] [facility]:00 (procedure) [code = Medical Center 36690942] Future Scheduled 2021-01-[address] [facility] 00:00:00 (Season Ended) [code = [facility] INFLUENZA VACCINE (Season Ended)] Future Scheduled 2020-05-[address] [facility] 00:00:00 (12+) [code = Medical Center DEPRESSION SCREENING (12+)] Future Scheduled 2018-08-[address] [facility] measurement [facility] (procedure) [code = 04691784] Future Scheduled 1993 DTAP/TDAP/TD VACCINES CH I [...] 00:00:00 examination Medical Center (regime/therapy) [code = 416259202] Future Scheduled 1984-01-26 Urine screening for [facility] 00:00:00 protein (procedure) Medical Center [code = 946938522] Future Scheduled 1980-01-[address] [facility] Test 00:00:00 0-64 YRS (1 of 1 - Medical C enter PPSV23) [code = PNEUMOCOCCAL VACCINE 0-64 YRS (1 of 1 - PPSV23)] Future Scheduled [address] [facility] Test 00:00:00 malignant neoplasm of [facility] colon (procedure) [code = 754342386] Encounters Start End Encounter Admission Attending Care Care Encounter Source Date/Time Date/Time Type Type Clinicians Facility Department ID 2021-03-09 Emergency [facility] [id number] Univers 09:22:47 ity of [facility] 2021-03-08 Emergency [facility] [id number] Univers 02:24:31 ity [facility] 2022-05-13 2022-05-13 PEE Jacobson [id number] Univers 00:00:00 00:00:00 Brigette Servin TRAMAINE [id number] i ty of HOSPITAL 2.7.2.686 Jaun as [id number] [address] 2022-05-13 2022-05-13 PEE Jacobson [id number] Univers 00:00:00 00:00:00 Brigette R TRAMAINE [id number] i ty of HOSPITAL [facility].7.2.686 Jaun as [id number] [address] 2022-05-13 2022-05-13 PEE Jacobson [id number] Univers 00:00:00 00:00:00 Brigette R TRAMAINE [id number] i ty of HOSPITAL [facility].7.2.686 Jaun as [id number] [address] 2022-05-12 2022-05-12 PEE Jacobson [id number] Univers 00:00:00 00:00:00 Brigette R TRAMAINE [id number] i ty of [address]2.686 Juan as [phone] [address] 2022-05-11 2022-05-11 PEE Jacobson.[id number] Univers 00:00:00 00:00:00 Brigette R TARMAINE [id number] i ty of [place] [id number] Jaun as [id number] [address] 2022-05-11 2022-05-11 PEE Jacobson.[id number] Univers 00:00:00 00:00:00 Brigette R TRAMAINE [id number] i ty of HOSPITAL 4.2.7.2.686 Jaun as [id number] [facility] 025 Branch 2022-05-10 2022-05-10 Transition BEN Rodriguez [id number] Univers 00:00:00 00:00:00 of Care Patricia TAYLOR [id number] [id number] [id number] [facility] [address] Branch 2022-05-04 2022-05-07 Inpatient U [facility] [facility] [id number] Univers 20:46:00 15:28:00 MOHAMAD ity [facility] 2022-05-04 2022-05-07 [facility] HEATHER Denson 1.2.840.114 [id number] Univers 20:46:00 15:28:00 Encounter Milnikko REDD 350.1.13.10 ity of [facility] 4.2.7.2.686 Jaun as [id number] [facility] [address] 2022-05-07 2022-05-07 [facility] 1.2.840.114 [id number] Univers 00:00:00 00:00:00 Hamza PRIMARY 350.1.13.10 it y [place] [id number] Va dical [address] 2022-05-06 2022-05-06 Surgery HEATHER Forbes 1.2.840.114 99 [id number] Univers 09:30:00 11:30:00 Carlosasher TRAMAINE 350.1.13.10 ity of HOSPITAL 4.2.7.2.686 [place]un as [phone] [facility] [address] 2022-05-04 2022-05-04 Telephone PEE Chauhan 1.2.840.114 99 [id number] Univers 00:00:00 00:00:00 Brigette REDD 350.1.13.10 i ty of HOSPITAL 4.2.7.2.686 [place] [phone] [facility] [address] 2022-05-03 2022-05-03 PEE Jacobson 1.2.840.114 99 [id number] Univers 00:00:00 00:00:00 Brigette REDD 350.1.13.[address] [facility] 42.7.2.686 [place]un as [id number] [facility] [address] [place] 2022-04-27 2022-04-27 PEE Jacobson 1.2.840.114 99 [id number] Univers 00:00:00 00:00:00 Brigette REDD 350.1.13.10 i ty of [address]686 [place] as [id number] [address] 2022-04-26 2022-04-26 PEE Jacobson 1.2.840.114 99 [id number] Univers 00:00:00 00:00:00 Brigette REDD 350.1.13.10 i ty of [place] [address].7.2.686 Jaun as [id number] [address] 2022-04-26 2022-04-26 PEE Jacobson 1.2.840.114 99 [id number] Univers 00:00:00 00:00:00 Brigette REDD 350.1.13.10 i ty of [address]686 [place] [id number] [facility] [address] [place] 2022-04-24 2022-04-24 Letter Junior, UNIVERSIT 1.2.682.083 [id number] Univers 00:00:00 00:00:00 (Out) Dale Pierce [facility] 350.1.13.10 ity of CL[place] [id number] [facility] [address] 2022-04-22 2022-04-22 Transition BEN Rodriguez 1.2.840.114 [id number] Univers 00:00:00 00:00:00 of Care Patricia TAYLOR 350.1.13.10 it[place] [id number] [facility] [address] 2022-04-15 2022-04-21 Inpatient X SHEY FRANCIS [facility] 10 [id number] Univers 21:21:00 14:13:00 SHEY FRANCIS ity [facility] 2022-04-15 2022-04-21 Hospital Brett Chaves 1.2.840.11 [id number] Univers 21:21:00 14:13:00 Encounter Shey Francis 350.1.13.[address] [facility] 4.2.7.2.686 [place] [id number] [place] [address] [place] 2022-04-19 2022-04-19 Surgery Bal Gold 1.2.840.114 98 [id number] Univers 13:53:00 15:53:00 N TRAMAINE 350.1.13.[address] [facility] 4.2.7.2.686 [place] as [id number] [address] 2022-04-18 2022-04-18 Letter KRYSTAL JuniorIT 1.2.426.008 [id number] Univers 00:00:00 00:00:00 (Out) Dale Lujan HEALTH 350.1.13.[address] [facility] [place] [id number] [address] 2022-04-15 2022-04-15 Outpatient Gareth CONTRERAS [facility] [id number] Univers 08:00:00 08:00:00 [facility] 2022-03-18 2022-03-18 [facility] [id number] Univers 11:15:00 12:11:35 [facility] 2022-03-18 2022-03-18 [facility] 1.2.840.114 [id number] Univers 11:15:00 12:11:35 Visit [facility] 350.1.13.10 it y of [place] 4.2.7.2.686 Jaun as DARRYL?BLEA [id number] [address] MEDICAL OFFICE BUILDING 2022-03-10 2022-03-10 Transition BEN Rodriguez 1.2.840.114 [id number] Univers 00:00:00 00:00:00 of Care Patricia MOODY 350.1.13.10 [place] [id number] [facility] [address] 2022-03-06 2022-03-09 Inpatient X PIERCE [facility] IRINEO [id number] Univers 20:34:00 15:50:00 ADNAN ity of [facility] 2022-03-06 2022-03-09 [facility] Lorraine Trevizo [facility] 1.2.840. 114 [id number] Univers 20:34:00 15:50:00 Encounter Jorge White RENETTA 350.1.13.[address] [facility] 4.2.7.2.686 [facility] [id number] [facility] [address] 2022-03-07 2022-03-07 Anesthesia Alquicira-M [facility] 1.2.840.114 [id number] Univers 09:41:00 12:53:00 Event RENETTA campos 350.1.13.10 i ty of [place] 4.2.7.2.686 [facility] SURGICAL [id number] [facility] CENTER [address] 2022-03-07 2022-03-07 [facility] 1.2.468.105 [id number] Univers 09:30:00 12:03:00 Tor JACKSON 350.1.13.10 i ty of [place] 4.2.7.2.686 [facility] SURGICAL [id number] [facility] CENTER [address] 2021-03-12 2021-03-12 Outpatient Gareth MALHOTRA [facility] [id number] Univers 16:30:00 16:30:00 [facility] 2021-03-01 2021-03-03 Emergency Akira Winter [facility] 1.2.840. 114 [id number] Univers 10:40:00 12:50:00 Matt Ford 350.1.13.10 ity of [place] 4.2.7.2.686 [facility] [id number] [facility] [address] 2020-10-27 2020-10-27 Transition Ben Rodriguez 1.2.840.114 [id number] 00:00:00 00:00:00 of Care Patricia aTylor 350.1.13.10 Fred[place] 4.2.7.2.686 [id number] 403 2020-10-25 2020-10-26 Hospital Akira Winter [facility] 1.2.840.1 14 [id number] 16:12:00 18:10:00 Encounter Ryan Cardozo [place] 350.1.13.10 Jorge [place] 4.2.7.2.686 [place] [id number] 080 2020-08-17 2020-08-17 Outpatient R DUSTY [facility] [id number] Univers 16:01:43 23:59:00 [facility] 2020-08-17 2020-08-17 [facility] 1.2.959.241 [id number] 15:25:16 16:33:28 [facility] 350.1.13.10 Surgical 4.2.7.2.686 [facility] [id number] Manda Jackson Results Test Description Test Time Test Comments Results Result Comments Source POCT GLUCOSE (AUTOMATED) 2022-05-07 19:05:03 Test Item Value Reference Range Interpretation Comme nts POCT GLU (test code = 0178952297) 202 mg/dL 70-110 H Lab Interpretation (test code = 71466-9) Abnormal [facility] GLUCOSE (AUTOMATED)2022-05-07 19:05:03 Test Item Value Reference Range Interpretation Comments POCT GLU (test code = 7607931574) 202 mg/dL 70-110 H Lab Interpretation (test code = Abnormal 19933-0) [facility] GLUCOSE (AUTOMATED)2022-05-07 14:57:00 Test Item Value Reference Range Interpretation Comments POCT GLU (test code = 1273895201) 388 mg/dL 70-110 H Lab Interpretation (test code = Abnormal 57929-9) [facility] GLUCOSE (AUTOMATED)2022-05-07 14:57:00 Test Item Value Reference Range Interpretation Comments POCT GLU (test code = 6363369244) 388 mg/dL 70-110 H Lab Interpretation (test code = Abnormal 44554-8) [facility] GLUCOSE (AUTOMATED)2022-05-07 10:14:38 Test Item Value Reference Range Interpretation Comments POCT GLU (test code = 4323017048) 258 mg/dL 70-110 H Lab Interpretation (test code = Abnormal 05610-8) [facility]07 10:14:38 Test Item Value Reference Range Interpretation Comments POCT GLU (test code = 9217138712) 258 mg/dL 70-110 H Lab Interpretation (test code = Abnormal 04927-7) [facility] METABOLIC PANEL (NA, K, CL, CO2, GLUCOSE, BUN, CREATININE, CA)2022-05-07 09:09:31 Test Item Value Reference Range Interpretation Comments NA (test code = 131 mmol/L 135-145 L 2460658434) K (test code = 4.0 mmol/L 3.5-5.0 4974043438) CL (test code = 101 mmol/L 98-108 0205862647) CO2 TOTAL (test code = 22 mmol/L 23-31 L 8371716833) AGAP (test code = 2-16 7333645603) BUN (test code = 11 mg/dL 7-23 7172654495) GLUCOSE (test code = 411 mg/dL 70-110 H 8833797751) CREATININE (test code = 0.67 mg/dL 0.60-1.25 6760289012) CALCIUM (test code = 8.0 mg/dL 8.6-10.6 L 7367763752) eGFR (test code = mL/min/1.73m2 4377304688) CLIFF (test code = CLIFF) Association of [...] tests). Lab Interpretation Abnormal (test code = 62376-6) [facility]2022-[facility]-31 09:09:31 Test Item Value Reference Range Interpretation Comments MAGNESIUM (test code = 3530280880) 1.4 mg/dL 1.7-2.4 L Lab Interpretation (test code = Abnormal 32041-6) [facility] MET[facility]OLIC [facility] (NA, K, CL, CO2, GLUCOSE, BUN, CREATININE, CA)2022-05-07 09:09:31 Test Item Value Reference Range Interpretation Comments NA (test code = 131 mmol/L 135-145 L 3176382246) K (test code = 4.0 mmol/L 3.5-5.0 9417230899) CL (test code = 101 mmol/L 98-108 9423682641) CO2 TOTAL (test code = 22 mmol/L 23-31 L 8079289334) AGAP (test code = 2-16 9355493668) BUN (test code = 11 mg/dL 7-23 0649489927) GLUCOSE (test code = 411 mg/dL 70-110 H 9615123630) CREATININE (test code = 0.67 mg/dL 0.60-1.25 7984361656) CALCIUM (test code = 8.0 mg/dL 8.6-10.6 L 0600062640) eGFR (test code = mL/min/1.73m2 6189999789) CLIFF (test code = CLIFF) Association of [...] tests). Lab Interpretation Abnormal (test code = 17185-1) [facility]2022-[facility]-31 09:09:31 Test Item Value Reference Range Interpretation Comments MAGNESIUM (test code = 3027439708) 1.4 mg/dL 1.7-2.4 L Lab Interpretation (test code = Abnormal 17087-8) [facility] WITH [id number] 08:08:44 Test Item Value Reference Range Interpretation Comments WBC (test code = See_Comment [Automated 5155-2) message] The sy stem which generated this result transmitted reference range : 4.20 - 10.70 10*3/?L. The reference range was not used to interpret this result as normal/abnormal . RBC (test code = See_Comment L [Automated 963-0) message] The sy stem which generated this result transmitted reference range : 4.26 - 5.52 10*6/?L. The reference range was not used to interpret this result as normal/abnormal . HGB (test code = 12.3 g/dL 12.2-16.4 718-7) HCT (test code = 36.7 % 38.4-49.3 L 4544-3) MCV (test code = 89.3 fL 81.7-95.6 787-2) MCH (test code = 29.9 pg 26.1-32.7 785-6) MCHC (test code = 33.5 g/dL 31.2-35.0 786-4) RDW-SD (test code = 44.6 fL 38.5-51.6 47428-7) RDW-CV (test code = 13.8 % 12.1-15.4 788-0) PLT (test code = See_Comment H [Automated 777-3) message] The sy stem which generated this result transmitted reference range : 150 - 328 10*3/ ?L. The reference r amborsio was not used to interpret this result as normal/abnormal . MPV (test code = 9.5 fL 9.8-13.0 L 37296-7) NRBC/100 WBC (test See_Comment [Automat ed code = 5360238910) message] The system which generated this result transmitted reference range : 0.0 - 10.0 /100 WBCs. The refer ence range was not u sed to interpret th is result as normal/abnormal . NRBC x10^3 (test code See_Comment [Auto mated = 5417962969) message] The s ystem which generated this result transmitted reference range : 10*3/?L. The reference range was not used to interpret this result as normal/abnormal . GRAN MAT (NEUT) % 67.6 % (test code = 770-8) IMM GRAN % (test code 0.20 % = 0615974510) LYMPH % (test code = 20.2 % 736-9) MONO % (test code = 5.6 % 5905-5) EOS % (test code = 5.4 % 713-8) BASO % (test code = 1.0 % 706-2) GRAN MAT x10^3(ANC) 6.11 10*3/uL 1.99-6.95 (test code = 6486672861) IMM GRAN x10^3 (test 0.00-0.06 code = 6785882189) LYMPH x10^3 (test code 1.83 10*3/uL 1.09-3.23 = 731-0) MONO x10^3 (test code 0.51 10*3/uL 0.36-1.02 = 742-7) EOS x10^3 (test code = 0.49 10*3/uL 0.06-0.53 711-2) BASO x10^3 (test code 0.09 10*3/uL 0.01-0.09 = 704-7) Lab Interpretation Abnormal (test code = 19390-5) [facility] WITH [id number] 08:08:44 Test Item Value Reference Range Interpretation Comments WBC (test code = See_Comment [Automated 6690-2) message] The sy stem which generated this result transmitted reference range : 4.20 - 10.70 10*3/?L. The reference range was not used to interpret this result as normal/abnormal . RBC (test code = See_Comment L [Automated 789-8) message] The sy stem which generated this result transmitted reference range : 4.26 - 5.52 10*6/?L. The reference range was not used to interpret this result as normal/abnormal . HGB (test code = 12.3 g/dL 12.2-16.4 718-7) HCT (test code = 36.7 % 38.4-49.3 L 4544-3) MCV (test code = 89.3 fL 81.7-95.6 787-2) MCH (test code = 29.9 pg 26.1-32.7 785-6) MCHC (test code = 33.5 g/dL 31.2-35.0 786-4) RDW-SD (test code = 44.6 fL 38.5-51.6 69603-4) RDW-CV (test code = 13.8 % 12.1-15.4 788-0) PLT (test code = See_Comment H [Automated 777-3) message] The sy stem which generated this result transmitted reference range : 150 - 328 10*3/ ?L. The reference r ambrosio was not used to interpret this result as normal/abnormal . MPV (test code = 9.5 fL 9.8-13.0 L 08455-6) NRBC/100 WBC (test See_Comment [Automat ed code = 9938126537) message] The system which generated this result transmitted reference range : 0.0 - 10.0 /100 WBCs. The refer ence range was not u sed to interpret th is result as normal/abnormal . NRBC x10^3 (test code See_Comment [Auto mated = 2059360167) message] The s ystem which generated this result transmitted reference range : 10*3/?L. The reference range was not used to interpret this result as normal/abnormal . GRAN MAT (NEUT) % 67.6 % (test code = 770-8) IMM GRAN % (test code 0.20 % = 2405451772) LYMPH % (test code = 20.2 % 736-9) MONO % (test code = 5.6 % 5905-5) EOS % (test code = 5.4 % 713-8) BASO % (test code = 1.0 % 706-2) GRAN MAT x10^3(ANC) 6.11 10*3/uL 1.99-6.95 (test code = 3235292044) IMM GRAN x10^3 (test 0.00-0.06 code = 0625678095) LYMPH x10^3 (test code 1.83 10*3/uL 1.09-3.23 = 731-0) MONO x10^3 (test code 0.51 10*3/uL 0.36-1.02 = 742-7) EOS x10^3 (test code = 0.49 10*3/uL 0.06-0.53 711-2) BASO x10^3 (test code 0.09 10*3/uL 0.01-0.09 = 704-7) Lab Interpretation Abnormal (test code = 97282-8) [facility] GLUCOSE (AUTOMATED)2022-05-07 07:33:53 Test Item Value Reference Range Interpretation Comments POCT GLU (test code = 4301939276) 452 mg/dL 70-110 HH Lab Interpretation (test code = Abnormal 13573-6) [facility] GLUCOSE (AUTOMATED)2022-05-07 07:33:53 Test Item Value Reference Range Interpretation Comments POCT GLU (test code = 2160092932) 452 mg/dL 70-110 HH Lab Interpretation (test code = Abnormal 17741-8) [facility] GLUCOSE (AUTOMATED)2022-05-07 01:27:48 Test Item Value Reference Range Interpretation Comments POCT GLU (test code = 8859010943) 78 mg/dL 70-110 Lab Interpretation (test code = Normal 57264-2) [facility] GLUCOSE (AUTOMATED)2022-05-07 01:27:48 Test Item Value Reference Range Interpretation Comments POCT GLU (test code = 5537308719) 78 mg/dL 70-110 Lab Interpretation (test code = Normal 92018-6) [facility] GLUCOSE (AUTOMATED)2022-05-07 01:03:27 Test Item Value Reference Range Interpretation Comments POCT GLU (test code = 8200781521) 100 mg/dL 70-110 Lab Interpretation (test code = Normal 30099-1) [facility] GLUCOSE (AUTOMATED)2022-05-07 01:03:27 Test Item Value Reference Range Interpretation Comments POCT GLU (test code = 6379272481) 100 mg/dL 70-110 Lab Interpretation (test code = Normal 71772-0) [facility] GLUCOSE (AUTOMATED)2022-05-06 21:59:39 Test Item Value Reference Range Interpretation Comments POCT GLU (test code = 2539625828) 329 mg/dL 70-110 H Lab Interpretation (test code = Abnormal 30338-1) [facility] GLUCOSE (AUTOMATED)2022-05-06 21:59:39 Test Item Value Reference Range Interpretation Comments POCT GLU (test code = 6757143999) 329 mg/dL 70-110 H Lab Interpretation (test code = Abnormal 78018-5) [facility] ACT LOW [id number] 18:07:40 Test Item Value Reference Range Interpretation Comments ACTLR (test code = See_Comment H [Automat ed message] 9419619546) The system [employer] generated this result transmitted ref erence range: 89 - 169 Seconds. The reference range was not used to int erpret this result as normal/abnormal . Lab Interpretation (test Abnormal code = 69378-7) [facility] ACT LOW [id number] 18:07:40 Test Item Value Reference Range Interpretation Comments ACTLR (test code = See_Comment H [Automat ed message] 7359504440) The system [employer] generated this result transmitted ref erence range: 89 - 169 Seconds. The reference range was not used to int erpret this result as normal/abnormal . Lab Interpretation (test Abnormal code = 59819-3) [facility] ACT LOW [id number] 17:22:23 Test Item Value Reference Range Interpretation Comments ACTLR (test code = See_Comment H [Automat ed message] 4096241646) The system [employer] generated this result transmitted ref erence range: 89 - 169 Seconds. The reference range was not used to int erpret this result as normal/abnormal . Lab Interpretation (test Abnormal code = 93648-6) [facility] ACT LOW [id number] 17:22:23 Test Item Value Reference Range Interpretation Comments ACTLR (test code = See_Comment H [Automat ed message] 4428762254) The system [employer] generated this result transmitted ref erence range: 89 - 169 Seconds. The reference range was not used to int erpret this result as normal/abnormal . Lab Interpretation (test Abnormal code = 23412-1) [facility] GLUCOSE (AUTOMATED)2022-05-06 14:16:02 Test Item Value Reference Range Interpretation Comments POCT GLU (test code = 0020782913) 320 mg/dL 70-110 H Lab Interpretation (test code = Abnormal 75106-8) [facility] GLUCOSE (AUTOMATED)2022-05-06 14:16:02 Test Item Value Reference Range Interpretation Comments POCT GLU (test code = 0059983955) 320 mg/dL 70-110 H Lab Interpretation (test code = Abnormal 28064-9) [facility] GLUCOSE (AUTOMATED)2022-05-06 12:33:32 Test Item Value Reference Range Interpretation Comments POCT GLU (test code = 2361542833) 336 mg/dL 70-110 H Lab Interpretation (test code = Abnormal 21962-0) [facility] GLUCOSE (AUTOMATED)2022-05-06 12:33:32 Test Item Value Reference Range Interpretation Comments POCT GLU (test code = 4197109082) 336 mg/dL 70-110 H Lab Interpretation (test code = Abnormal 08054-3) [facility] GLUCOSE (AUTOMATED)2022-05-06 10:26:29 Test Item Value Reference Range Interpretation Comments POCT GLU (test code = 0009065439) 363 mg/dL 70-110 H Lab Interpretation (test code = Abnormal 07422-2) [facility] GLUCOSE (AUTOMATED)2022-05-06 10:26:29 Test Item Value Reference Range Interpretation Comments POCT GLU (test code = 8664284956) 363 mg/dL 70-110 H Lab Interpretation (test code = Abnormal 58180-2) [facility] GLUCOSE (AUTOMATED)2022-05-06 05:36:17 Test Item Value Reference Range Interpretation Comments POCT GLU (test code = 3652859861) 537 mg/dL 70-110 HH Lab Interpretation (test code = Abnormal 56843-5) [facility] GLUCOSE (AUTOMATED)2022-05-06 05:36:17 Test Item Value Reference Range Interpretation Comments POCT GLU (test code = 1970550705) 537 mg/dL 70-110 HH Lab Interpretation (test code = Abnormal 35162-6) [facility] GLUCOSE (AUTOMATED)2022-05-06 04:17:21 Test Item Value Reference Range Interpretation Comments POCT GLU (test code = 2899339553) 445 mg/dL 70-110 H Lab Interpretation (test code = Abnormal 89459-8) [facility] GLUCOSE (AUTOMATED)2022-05-06 04:17:21 Test Item Value Reference Range Interpretation Comments POCT GLU (test code = 9451599487) 445 mg/dL 70-110 H Lab Interpretation (test code = Abnormal 27096-2) [facility] GLUCOSE (AUTOMATED)2022-05-05 23:14:16 Test Item Value Reference Range Interpretation Comments POCT GLU (test code = 3992906145) 433 mg/dL 70-110 H Lab Interpretation (test code = Abnormal 42279-7) [facility] GLUCOSE (AUTOMATED)2022-05-05 23:14:16 Test Item Value Reference Range Interpretation Comments POCT GLU (test code = 3824917636) 433 mg/dL 70-110 H Lab Interpretation (test code = Abnormal 15603-5) [facility] GLUCOSE (AUTOMATED)2022-05-05 19:22:27 Test Item Value Reference Range Interpretation Comments POCT GLU (test code = 1292721979) 304 mg/dL 70-110 H Lab Interpretation (test code = Abnormal 20082-5) [facility] GLUCOSE (AUTOMATED)2022-05-05 19:22:27 Test Item Value Reference Range Interpretation Comments POCT GLU (test code = 1547989402) 304 mg/dL 70-110 H Lab Interpretation (test code = Abnormal 24248-9) [facility] GLUCOSE (AUTOMATED)2022-04-21 18:58:41 Test Item Value Reference Range Interpretation Comments POCT GLU (test code = 3696339431) 138 mg/dL 70-110 H Lab Interpretation (test code = Abnormal 62074-0) [facility] GLUCOSE (AUTOMATED)2022-04-21 16:48:06 Test Item Value Reference Range Interpretation Comments POCT GLU (test code = 6423124603) 72 mg/dL 70-110 Lab Interpretation (test code = Normal 98990-1) [facility] GLUCOSE (AUTOMATED)2022-04-21 14:00:44 Test Item Value Reference Range Interpretation Comments POCT GLU (test code = 0980741785) 441 mg/dL 70-110 H Lab Interpretation (test code = Abnormal 32897-8) [facility] GLUCOSE (AUTOMATED)2022-04-21 06:42:03 Test Item Value Reference Range Interpretation Comments POCT GLU (test code = 5168986823) 259 mg/dL 70-110 H Lab Interpretation (test code = Abnormal 15474-0) [facility] GLUCOSE (AUTOMATED)2022-04-21 02:56:54 Test Item Value Reference Range Interpretation Comments POCT GLU (test code = 4904884904) 250 mg/dL 70-110 H Lab Interpretation (test code = Abnormal 83461-8) [facility] GLUCOSE (AUTOMATED)2022-04-20 22:47:00 Test Item Value Reference Range Interpretation Comments POCT GLU (test code = 9405670946) 381 mg/dL 70-110 H Lab Interpretation (test code = Abnormal 47377-3) [facility] GLUCOSE (AUTOMATED)2022-04-20 22:47:00 Test Item Value Reference Range Interpretation Comments POCT GLU (test code = 1001837179) 381 mg/dL 70-110 H Lab Interpretation (test code = Abnormal 45170-5) [facility] 22:25:22 Test Item Value Reference Range Interpretation Comments Height (test code = in 4458034353) Weight (test code = lbs 6008635550) Systolic BP (test code = mmHg 7688606128) Diastolic BP (test code mmHg = 0234367777) Heart Rate (test code = bpm 2906616811) LVOT stroke volume (test 49.00 cm3 code = 1220885653) EF(Teich) (test code = 36.90 % 3400310582) LVIDD (test code = 3.60 cm 5016195876) LVIDS (test code = 3.00 cm 9520835643) Left Ventricular End 34.5 mL Systolic Volume by Teichholz Method (test code = 4598050) Left Ventricular End 54.6 mL Diastolic Volume by Teichholz Method (test code = 1236013) IVS (test code = 1.34 cm 1505137507) LVPWD (test code = 1.18 cm 7337925514) LVOT diameter (test code 2.15 cm = 0003852846) LVOT area (test code = 3.60 cm2 4674864231) FS (test code = 17 % 2030045332) MV Peak E Ezekiel (test code 44.9 cm/s = 7691001201) MV Peak A Ezekiel (test code 66.7 cm/s = 2805089928) E/A ratio (test code = ratio 1638679929) E wave decelartion time 0.15 s (test code = 6619975641) LVOT peak ezekiel (test code 97.4 cm/s = 1014488146) LVOT mn grad (test code mmHg = 3730419105) BSA (test code = 1.69 m2 9817557672) LA size (test code = 3.6 cm 9031234522) LAV(MOD-sp4) (test code 40.20 mL = 4026004610) Tapse (test code = 1.88 cm 1272114000) AV LVOT peak gradient mmHg (test code = 3381391352) LVOT peak VTI (test code 13.5 cm = 5810595475) LV V1 mean (test code = 63.30 cm/s 8306236623) Ao root diam (test code 3.60 cm = 1278273514) Aortic root (test code = 3.6 cm 5177260295) Ao root annulus (test 3.6 cm code = 1041550846) PW (test code = 1.18 cm 0.6-1.7 7151011890) EF - 2D (test code = 36.90 % 45833438) Interventricular Septum 1.34 cm Diastolic Thickness by 2D (test code = 8257130) LV GLS Endo Peak A2C -9.30 % () (test code = 4238383662) LV GLS Endo Peak A3C -9.70 % () (test code = [id number]) LV GLS Endo Peak A4C -9.40 % () (test code = 0250284474) LV GLS Endo Peak Avg -9.50 % () (test code = 0201643637) TASV (test code = 10.8 cm/s 8957551363) LA Volume Index (BP) 23.9 mL/m2 (test code = 7669927373) LA volume (BP) (test 40.4 mL code = 1628972509) LAV(MOD-sp2) (test code 37.00 mL = 5098870778) A4C EF (test code = 48.20 % 4634996395) EF(sp4-el) (test code = 52.70 % 4741389751) SV(MOD-sp4) (test code = 39.00 mL 9176560511) SV(sp4-el) (test code = 43.50 mL 9055076349) LV Diastolic Volume (BP) 70.5 mL (test code = 2297360387) A2C EF (test code = 52.40 % 7268944214) EF(MOD-bp) (test code = 50.90 % 3448583204) EF(sp2-el) (test code = 53.20 % 8443594386) LV Systolic Volume (BP) 34.6 mL (test code = 9392736602) SV(MOD-bp) (test code = 35.90 mL 9698795613) SV(MOD-sp2) (test code = 31.40 mL 0674936255) EF (test code = 4043009689) Left Ventricular Stroke 35.9 mL Volume by 2-D Biplane-MOD (test code = 9632465) LV Diastolic Volume 41.7 mL/m2 Index (BP) (test code = 8494924240) LV Systolic Volume Index 20.5 mL/m2 (BP) (test code = 0323453708) Radiology Study observation (narrative) (test code = 72009-2) CLIFF (test code = CLIFF) ?Left?Ventricle: Left ventricle size is normal. Normal wall thickness. There is concentric remodeling. LVMI 113 g/m2 Normal wall motion. Low normal systolic function with a visually estimated EF of 50 - 55%. EF by 2D Espino biplane is 51%. Global longitudinal strain is reduced. There is grade 1 diastolic dysfunction. ?Right?Ventricle: Right ventricle size is normal. Normal systolic function. ?Left?Atrium: Left atrium size is normal. ?Tricuspid?Valve: Tricuspid valve structure is normal. Insufficient tricuspid regurgitation jet to estimate RVSP.RA pressure is 0-5 mmHg. ?Pericardium: Trivial pericardial effusion present. ?Mitral?Valve: Mild to moderate transvalvular regurgitation with a centrally directed jet. ?IVC/SVC: IVC diameter is less than or equal to 21 mm and decreases greater than 50% during inspiration; therefore the estimated right atrial pressure is normal (~0-5 mmHg). Left VentricleLeft ventricle size is normal. Normal wall thickness. There is concentric remodeling. LVMI 113 g/m2 Normal wall motion. Low normal systolic function with a visually estimated EF of 50 - 55%. EF by 2D Espino biplane is 51%. Global longitudinal strain is reduced. There is grade 1 diastolic dysfunction.Right VentricleRight ventricle size is normal. Normal systolic function.Left AtriumLeft atrium size is normal.Right AtriumRight atrium size is normal.IVC/SVCIVC diameter is less than or equal to 21 mm and decreases greater than 50% during inspiration; therefore the estimated right atrial pressure is normal (~0-5 mmHg).Mitral ValveMitral valve structure is normal. Mild to moderate transvalvular regurgitation with a centrally directed jet.Tricuspid ValveTricuspid valve structure is normal. Insufficient tricuspid regurgitation jet to estimate RVSP.RA pressure is 0-5 mmHg.Aortic ValveAortic valve structure is normal.Pulmonic ValveNot well visualized. Pulmonic valve is normal in structure and function. Trace transvalvular regurgitation.Ascendi ng AortaNormal sized annulus and sinus of Valsalva.PericardiumT rivial pericardial effusion present.Study DetailsA complete echocardiogram was performed using 2D, color flow Doppler, spectral Doppler and strain. [facility] 22:25:22 Test Item Value Reference Range Interpretation Comments Height (test code = in 2009407050) Weight (test code = lbs 4263694365) Systolic BP (test code = mmHg 9996536768) Diastolic BP (test code mmHg = 5418057321) Heart Rate (test code = bpm 1889082696) LVOT stroke volume (test 49.00 cm3 code = 1326560341) EF(Teich) (test code = 36.90 % 6834414338) LVIDD (test code = 3.60 cm 5341379061) LVIDS (test code = 3.00 cm 4788255912) Left Ventricular End 34.5 mL Systolic Volume by Teichholz Method (test code = 7451505) Left Ventricular End 54.6 mL Diastolic Volume by Teichholz Method (test code = 5838722) IVS (test code = 1.34 cm 2324797209) LVPWD (test code = 1.18 cm 3560386316) LVOT diameter (test code 2.15 cm = 7483580925) LVOT area (test code = 3.60 cm2 9219256025) FS (test code = 17 % 4601645078) MV Peak E Ezekiel (test code 44.9 cm/s = 7897702740) MV Peak A Ezekiel (test code 66.7 cm/s = 9568759886) E/A ratio (test code = ratio 8041860173) E wave decelartion time 0.15 s (test code = 2963573747) LVOT peak ezekiel (test code 97.4 cm/s = 4112270149) LVOT mn grad (test code mmHg = 8605360737) BSA (test code = 1.69 m2 2098954039) LA size (test code = 3.6 cm 0906175423) LAV(MOD-sp4) (test code 40.20 mL = 7547587509) Tapse (test code = 1.88 cm 7451959729) AV LVOT peak gradient mmHg (test code = 6540989902) LVOT peak VTI (test code 13.5 cm = 0548196282) LV V1 mean (test code = 63.30 cm/s 0784539468) Ao root diam (test code 3.60 cm = 8906875646) Aortic root (test code = 3.6 cm 9651580118) Ao root annulus (test 3.6 cm code = 1788465827) PW (test code = 1.18 cm 0.6-1.0 8843310542) EF - 2D (test code = 36.90 % 78728731) Interventricular Septum 1.34 cm Diastolic Thickness by 2D (test code = 1244396) LV GLS Endo Peak A2C -9.30 % () (test code = 1398381097) LV GLS Endo Peak A3C -9.70 % () (test code = 3942932838) LV GLS Endo Peak A4C -9.40 % () (test code = 3650407299) LV GLS Endo Peak Avg -9.50 % () (test code = 0973491520) TASV (test code = 10.8 cm/s 5909642714) LA Volume Index (BP) 23.9 mL/m2 (test code = 8491542791) LA volume (BP) (test 40.4 mL code = 8457570224) LAV(MOD-sp2) (test code 37.00 mL = 1855571079) A4C EF (test code = 48.20 % 2323878935) EF(sp4-el) (test code = 52.70 % 6139153073) SV(MOD-sp4) (test code = 39.00 mL 1472844385) SV(sp4-el) (test code = 43.50 mL 6706943953) LV Diastolic Volume (BP) 70.5 mL (test code = 0062556494) A2C EF (test code = 52.40 % 1095180057) EF(MOD-bp) (test code = 50.90 % 7540077297) EF(sp2-el) (test code = 53.20 % 0267814758) LV Systolic Volume (BP) 34.6 mL (test code = 4946302903) SV(MOD-bp) (test code = 35.90 mL 1699221032) SV(MOD-sp2) (test code = 31.40 mL 2711486942) EF (test code = 3455389374) Left Ventricular Stroke 35.9 mL Volume by 2-D Biplane-MOD (test code = 3664404) LV Diastolic Volume 41.7 mL/m2 Index (BP) (test code = 7727133832) LV Systolic Volume Index 20.5 mL/m2 (BP) (test code = 9502189639) Radiology Study observation (narrative) (test code = 19336-1) CLIFF (test code = CLIFF) ?Left?Ventricle: Left ventricle size is normal. Normal wall thickness. There is concentric remodeling. LVMI 113 g/m2 Normal wall motion. Low normal systolic function with a visually estimated EF of 50 - 55%. EF by 2D Espino biplane is 51%. Global longitudinal strain is reduced. There is grade 1 diastolic dysfunction. ?Right?Ventricle: Right ventricle size is normal. Normal systolic function. ?Left?Atrium: Left atrium size is normal. ?Tricuspid?Valve: Tricuspid valve structure is normal. Insufficient tricuspid regurgitation jet to estimate RVSP.RA pressure is 0-5 mmHg. ?Pericardium: Trivial pericardial effusion present. ?Mitral?Valve: Mild to moderate transvalvular regurgitation with a centrally directed jet. ?IVC/SVC: IVC diameter is less than or equal to 21 mm and decreases greater than 50% during inspiration; therefore the estimated right atrial pressure is normal (~0-5 mmHg). Left VentricleLeft ventricle size is normal. Normal wall thickness. There is concentric remodeling. LVMI 113 g/m2 Normal wall motion. Low normal systolic function with a visually estimated EF of 50 - 55%. EF by 2D Espino biplane is 51%. Global longitudinal strain is reduced. There is grade 1 diastolic dysfunction.Right VentricleRight ventricle size is normal. Normal systolic function.Left AtriumLeft atrium size is normal.Right AtriumRight atrium size is normal.IVC/SVCIVC diameter is less than or equal to 21 mm and decreases greater than 50% during inspiration; therefore the estimated right atrial pressure is normal (~0-5 mmHg).Mitral ValveMitral valve structure is normal. Mild to moderate transvalvular regurgitation with a centrally directed jet.Tricuspid ValveTricuspid valve structure is normal. Insufficient tricuspid regurgitation jet to estimate RVSP.RA pressure is 0-5 mmHg.Aortic ValveAortic valve structure is normal.Pulmonic ValveNot well visualized. Pulmonic valve is normal in structure and function. Trace transvalvular regurgitation.Ascendi ng AortaNormal sized annulus and sinus of Valsalva.PericardiumT rivial pericardial effusion present.Study DetailsA complete echocardiogram was performed using 2D, color flow Doppler, spectral Doppler and strain. [facility] GLUCOSE (AUTOMATED)2022-04-20 18:19:52 Test Item Value Reference Range Interpretation Comments POCT GLU (test code = 5338628535) 204 mg/dL 70-110 H Lab Interpretation (test code = Abnormal 11671-3) [facility] GLUCOSE (AUTOMATED)2022-04-20 18:19:52 Test Item Value Reference Range Interpretation Comments POCT GLU (test code = 6646099356) 204 mg/dL 70-110 H Lab Interpretation (test code = Abnormal 02979-3) [facility] GLUCOSE (AUTOMATED)2022-04-20 14:18:10 Test Item Value Reference Range Interpretation Comments POCT GLU (test code = 4309515751) 454 mg/dL 70-110 HH Lab Interpretation (test code = Abnormal 74422-8) [facility] GLUCOSE (AUTOMATED)2022-04-20 14:18:10 Test Item Value Reference Range Interpretation Comments POCT GLU (test code = 7366674836) 454 mg/dL 70-110 HH Lab Interpretation (test code = Abnormal 86319-1) [facility] GLUCOSE (AUTOMATED)2022-04-20 05:51:20 Test Item Value Reference Range Interpretation Comments POCT GLU (test code = 7591598793) 240 mg/dL 70-110 H Lab Interpretation (test code = Abnormal 58379-8) [facility] GLUCOSE (AUTOMATED)2022-04-20 05:51:20 Test Item Value Reference Range Interpretation Comments POCT GLU (test code = 8435793081) 240 mg/dL 70-110 H Lab Interpretation (test code = Abnormal 82655-4) [facility] GLUCOSE (AUTOMATED)2022-04-20 02:48:28 Test Item Value Reference Range Interpretation Comments POCT GLU (test code = 0902738508) 389 mg/dL 70-110 H Lab Interpretation (test code = Abnormal 88226-8) [facility] GLUCOSE (AUTOMATED)2022-04-20 02:48:28 Test Item Value Reference Range Interpretation Comments POCT GLU (test code = 1353256503) 389 mg/dL 70-110 H Lab Interpretation (test code = Abnormal 86802-1) [facility] 00:10:29 Test Item Value Reference Range Interpretation Comments POCT GLU (test code = 6056119488) 549 mg/dL 70-110 HH Lab Interpretation (test code = Abnormal 04934-3) [facility] 00:10:29 Test Item Value Reference Range Interpretation Comments POCT GLU (test code = 6878608431) 549 mg/dL 70-110 HH Lab Interpretation (test code = Abnormal 00114-4) [facility] GLUCOSE (AUTOMATED)2022-04-19 15:25:27 Test Item Value Reference Range Interpretation Comments POCT GLU (test code = 9599598374) 149 mg/dL 70-110 H Lab Interpretation (test code = Abnormal 87623-8[facility]:25:27 Test Item Value Reference Range Interpretation Comments POCT GLU (test code = 3198394824) 149 mg/dL 70-110 H Lab Interpretation (test code = Abnormal 12383-7) [facility] 14:28:26 Test Item Value Reference Range Interpretation Comments POCT GLU (test code = 2125078043) 62 mg/dL 70-110 L Lab Interpretation (test code = Abnormal 98682-3) [facility] GLUCOSE (AUTOMATED)2022-04-19 14:28:26 Test Item Value Reference Range Interpretation Comments POCT GLU (test code = 5290899022) 62 mg/dL 70-110 L Lab Interpretation (test code = Abnormal 55863-6) [facility] 10:17:31 Test Item Value Reference Range Interpretation Comments POCT GLU (test code = 7832376387) 347 mg/dL 70-110 H Lab Interpretation (test code = Abnormal 69599-1) [facility] GLUCOSE (AUTOMATED)2022-04-19 10:17:31 Test Item Value Reference Range Interpretation Comments POCT GLU (test code = 3686377104) 347 mg/dL 70-110 H Lab Interpretation (test code = Abnormal 31245-6) [facility] GLUCOSE (AUTOMATED)2022-04-19 06:21:59 Test Item Value Reference Range Interpretation Comments POCT GLU (test code = 7648427889) 102 mg/dL 70-110 Lab Interpretation (test code = Normal 27916-9) [facility] GLUCOSE (AUTOMATED)2022-04-19 06:21:59 Test Item Value Reference Range Interpretation Comments POCT GLU (test code = 5577496382) 102 mg/dL 70-110 Lab Interpretation (test code = Normal 25621-7) [facility] GLUCOSE (AUTOMATED)2022-04-19 03:10:41 Test Item Value Reference Range Interpretation Comments POCT GLU (test code = 5329575110) 218 mg/dL 70-110 H Lab Interpretation (test code = Abnormal 01743-3) [facility] GLUCOSE (AUTOMATED)2022-04-19 03:10:41 Test Item Value Reference Range Interpretation Comments POCT GLU (test code = 9034231848) 218 mg/dL 70-110 H Lab Interpretation (test code = Abnormal 61943-0) [facility] GLUCOSE (AUTOMATED)2022-04-19 00:09:01 Test Item Value Reference Range Interpretation Comments POCT GLU (test code = 2321267645) 589 mg/dL 70-110 HH Lab Interpretation (test code = Abnormal 43567-1) [facility] GLUCOSE (AUTOMATED)2022-04-19 00:09:01 Test Item Value Reference Range Interpretation Comments POCT GLU (test code = 0113356139) 589 mg/dL 70-110 HH Lab Interpretation (test code = Abnormal 28622-5) [facility] GLUCOSE (AUTOMATED)2022-04-18 22:35:43 Test Item Value Reference Range Interpretation Comments POCT GLU (test code = 8449810429) 570 mg/dL 70-110 HH Lab Interpretation (test code = Abnormal 28005-3) [facility] GLUCOSE (AUTOMATED)2022-04-18 22:35:43 Test Item Value Reference Range Interpretation Comments POCT GLU (test code = 7567471080) 570 mg/dL 70-110 HH Lab Interpretation (test code = Abnormal 60482-6) [facility] GLUCOSE (AUTOMATED)2022-04-18 17:19:47 Test Item Value Reference Range Interpretation Comments POCT GLU (test code = 4844954367) 229 mg/dL 70-110 H Lab Interpretation (test code = Abnormal 46792-4) [facility] GLUCOSE (AUTOMATED)2022-04-18 17:19:47 Test Item Value Reference Range Interpretation Comments POCT GLU (test code = 3185374663) 229 mg/dL 70-110 H Lab Interpretation (test code = Abnormal 39826-4) [facility] GLUCOSE (AUTOMATED)2022-04-18 14:45:24 Test Item Value Reference Range Interpretation Comments POCT GLU (test code = 8213296847) 143 mg/dL 70-110 H Lab Interpretation (test code = Abnormal 45427-5) [facility] GLUCOSE (AUTOMATED)2022-04-18 14:45:24 Test Item Value Reference Range Interpretation Comments POCT GLU (test code = 2382175535) 143 mg/dL 70-110 H Lab Interpretation (test code = Abnormal 44796-6) [facility] METABOLIC PANEL (NA, K, CL, CO2, GLUCOSE, BUN, CREATININE, CA)2022-04-18 11:14:46 Test Item Value Reference Range Interpretation Comments NA (test code = 135 mmol/L 135-145 1344966008) K (test code = 3.8 mmol/L 3.5-5.0 6606734586) CL (test code = 102 mmol/L 98-108 3877960072) CO2 TOTAL (test code = 26 mmol/L 23-31 3875000398) AGAP (test code = 2-16 9637293790) BUN (test code = 12 mg/dL 7-23 1832538259) GLUCOSE (test code = 246 mg/dL 70-110 H 5242342513) CREATININE (test code = 0.67 mg/dL 0.60-1.25 1729297892) CALCIUM (test code = 7.9 mg/dL 8.6-10.6 L 7219663329) eGFR (test code = mL/min/1.73m2 9126292458) CLIFF (test code = CLIFF) Association of [...] tests). Lab Interpretation Abnormal (test code = 29693-7) [facility] 11:14:46 Test Item Value Reference Range Interpretation Comments MAGNESIUM (test code = 8960319971) 1.9 mg/dL 1.7-2.4 Lab Interpretation (test code = Normal 24992-9) [facility] (NA, K, CL, CO2, GLUCOSE, BUN, CREATININE, CA)2022-04-18 11:14:46 Test Item Value Reference Range Interpretation Comments NA (test code = 135 mmol/L 135-145 9232469215) K (test code = 3.8 mmol/L 3.5-5.0 4827512117) CL (test code = 102 mmol/L 98-108 2269825430) CO2 TOTAL (test code = 26 mmol/L 23-31 9591101834) AGAP (test code = 2-16 7627579080) BUN (test code = 12 mg/dL 7-23 4828456549) GLUCOSE (test code = 246 mg/dL 70-110 H 4836101734) CREATININE (test code = 0.67 mg/dL 0.60-1.25 0782623437) CALCIUM (test code = 7.9 mg/dL 8.6-10.6 L 5677209129) eGFR (test code = mL/min/1.73m2 9444934456) CLIFF (test code = CLIFF) Association of [...] tests). Lab Interpretation Abnormal (test code = 10324-3) [facility] 11:14:46 Test Item Value Reference Range Interpretation Comments MAGNESIUM (test code = 4308090787) 1.9 mg/dL 1.7-2.4 Lab Interpretation (test code = Normal 58670-8) [facility] GLUCOSE (AUTOMATED)2022-04-18 10:29:48 Test Item Value Reference Range Interpretation Comments POCT GLU (test code = 2284836234) 207 mg/dL 70-110 H Lab Interpretation (test code = Abnormal 06229-2) [facility] 10:29:48 Test Item Value Reference Range Interpretation Comments POCT GLU (test code = 3272400135) 207 mg/dL 70-110 H Lab Interpretation (test code = Abnormal 27060-3) [facility] 06:13:42 Test Item Value Reference Range Interpretation Comments POCT GLU (test code = 0233621068) 229 mg/dL 70-110 H Lab Interpretation (test code = Abnormal 05351-9) [facility] GLUCOSE (AUTOMATED)2022-04-18 06:13:42 Test Item Value Reference Range Interpretation Comments POCT GLU (test code = 1369701152) 229 mg/dL 70-110 H Lab Interpretation (test code = Abnormal 52310-4) [facility] 02:47:45 Test Item Value Reference Range Interpretation Comments POCT GLU (test code = 8829388380) 260 mg/dL 70-110 H Lab Interpretation (test code = Abnormal 00482-9) [facility] GLUCOSE (AUTOMATED)2022-04-18 02:47:45 Test Item Value Reference Range Interpretation Comments POCT GLU (test code = 7467026481) 260 mg/dL 70-110 H Lab Interpretation (test code = Abnormal 43947-1) [facility] GLUCOSE (AUTOMATED)2022-04-17 22:10:20 Test Item Value Reference Range Interpretation Comments POCT GLU (test code = 6088931547) 404 mg/dL 70-110 H Lab Interpretation (test code = Abnormal 98708-6) [facility]-17 22:10:20 Test Item Value Reference Range Interpretation Comments POCT GLU (test code = 9751069066) 404 mg/dL 70-110 H Lab Interpretation (test code = Abnormal 38054-6) [facility] GLUCOSE (AUTOMATED)2022-04-17 18:26:11 Test Item Value Reference Range Interpretation Comments POCT GLU (test code = 6998749355) 102 mg/dL 70-110 Lab Interpretation (test code = Normal 77518-6) [facility]22-[facility]-17 18:26:11 Test Item Value Reference Range Interpretation Comments POCT GLU (test code = 4633345876) 102 mg/dL 70-110 Lab Interpretation (test code = Normal 31930-7) [facility] GLUCOSE (AUTOMATED)2022-04-17 17:50:32 Test Item Value Reference Range Interpretation Comments POCT GLU (test code = 1222372555) 47 mg/dL 70-110 LL Lab Interpretation (test code = Abnormal 22963-5) [facility] GLUCOSE (AUTOMATED)2022-04-17 17:50:32 Test Item Value Reference Range Interpretation Comments POCT GLU (test code = 0207511075) 47 mg/dL 70-110 LL Lab Interpretation (test code = Abnormal 00686-7) [facility] GLUCOSE (AUTOMATED)2022-04-17 13:26:58 Test Item Value Reference Range Interpretation Comments POCT GLU (test code = 3413514645) 366 mg/dL 70-110 H Lab Interpretation (test code = Abnormal 32011-6) [facility] GLUCOSE (AUTOMATED)2022-04-17 13:26:58 Test Item Value Reference Range Interpretation Comments POCT GLU (test code = 2610058849) 366 mg/dL 70-110 H Lab Interpretation (test code = Abnormal 10582-9) [facility] GLUCOSE (AUTOMATED)2022-04-17 10:43:44 Test Item Value Reference Range Interpretation Comments POCT GLU (test code = 7983194973) 483 mg/dL 70-110 HH Lab Interpretation (test code = Abnormal 16955-3) [facility] GLUCOSE (AUTOMATED)2022-04-17 10:43:44 Test Item Value Reference Range Interpretation Comments POCT GLU (test code = 0700401629) 483 mg/dL 70-110 HH Lab Interpretation (test code = Abnormal 36811-2) [facility] GLUCOSE (AUTOMATED)2022-04-17 06:01:03 Test Item Value Reference Range Interpretation Comments POCT GLU (test code = 9793502984) 399 mg/dL 70-110 H Lab Interpretation (test code = Abnormal 62732-3) [facility]17 06:01:03 Test Item Value Reference Range Interpretation Comments POCT GLU (test code = 5159065856) 399 mg/dL 70-110 H Lab Interpretation (test code = Abnormal 47912-5) [facility] GLUCOSE (AUTOMATED)2022-04-17 02:37:47 Test Item Value Reference Range Interpretation Comments POCT GLU (test code = 2458850032) 330 mg/dL 70-110 H Lab Interpretation (test code = Abnormal 81319-2) [facility] GLUCOSE (AUTOMATED)2022-04-17 02:37:47 Test Item Value Reference Range Interpretation Comments POCT GLU (test code = 5457005758) 330 mg/dL 70-110 H Lab Interpretation (test code = Abnormal 11258-8) [facility] GLUCOSE (AUTOMATED)2022-04-16 23:34:29 Test Item Value Reference Range Interpretation Comments POCT GLU (test code = 7859016965) 268 mg/dL 70-110 H Lab Interpretation (test code = Abnormal 21686-4) [facility] GLUCOSE (AUTOMATED)2022-04-16 23:34:29 Test Item Value Reference Range Interpretation Comments POCT GLU (test code = 6986833376) 268 mg/dL 70-110 H Lab Interpretation (test code = Abnormal 28390-4) [facility] GLUCOSE (AUTOMATED)2022-04-16 17:10:56 Test Item Value Reference Range Interpretation Comments POCT GLU (test code = 0706681166) 396 mg/dL 70-110 H Lab Interpretation (test code = Abnormal 11336-5) [facility] 17:10:56 Test Item Value Reference Range Interpretation Comments POCT GLU (test code = 0706512237) 396 mg/dL 70-110 H Lab Interpretation (test code = Abnormal 62632-0) [facility] GLUCOSE (AUTOMATED)2022-03-09 20:30:40 Test Item Value Reference Range Interpretation Comments POCT GLU (test code = 9626165566) 332 mg/dL 70-110 H Lab Interpretation (test code = Abnormal 44806-8) [facility] GLUCOSE (AUTOMATED)2022-03-09 13:23:52 Test Item Value Reference Range Interpretation Comments POCT GLU (test code = 2314896598) 373 mg/dL 70-110 H Lab Interpretation (test code = Abnormal 96606-0) [facility] GLUCOSE (AUTOMATED)2022-03-09 07:10:19 Test Item Value Reference Range Interpretation Comments POCT GLU (test code = 2982623794) 520 mg/dL 70-110 HH Lab Interpretation (test code = Abnormal 89899-0) [facility] GLUCOSE (AUTOMATED)2022-03-09 04:11:59 Test Item Value Reference Range Interpretation Comments POCT GLU (test code = 2058413880) 443 mg/dL 70-110 H Lab Interpretation (test code = Abnormal 17044-7) [facility] GLUCOSE (AUTOMATED)2022-03-09 02:28:25 Test Item Value Reference Range Interpretation Comments POCT GLU (test code = 6867694235) 438 mg/dL 70-110 H Lab Interpretation (test code = Abnormal 84949-3) [facility] GLUCOSE (AUTOMATED)2022-03-08 22:12:24 Test Item Value Reference Range Interpretation Comments POCT GLU (test code = 9740708493) 310 mg/dL 70-110 H Lab Interpretation (test code = Abnormal 92032-9) [facility] GLUCOSE (AUTOMATED)2022-03-08 22:12:24 Test Item Value Reference Range Interpretation Comments POCT GLU (test code = 5245469652) 310 mg/dL 70-110 H Lab Interpretation (test code = Abnormal 09936-0) [facility] GLUCOSE (AUTOMATED)2022-03-08 17:21:26 Test Item Value Reference Range Interpretation Comments POCT GLU (test code = 8540353397) 411 mg/dL 70-110 H Lab Interpretation (test code = Abnormal 37478-2) [facility] GLUCOSE (AUTOMATED)2022-03-08 17:21:26 Test Item Value Reference Range Interpretation Comments POCT GLU (test code = 0573322443) 411 mg/dL 70-110 H Lab Interpretation (test code = Abnormal 02188-4) [facility] GLUCOSE (AUTOMATED)2022-03-08 12:59:57 Test Item Value Reference Range Interpretation Comments POCT GLU (test code = 5148217784) 484 mg/dL 70-110 HH Lab Interpretation (test code = Abnormal 46609-7) [facility] GLUCOSE (AUTOMATED)2022-03-08 12:59:57 Test Item Value Reference Range Interpretation Comments POCT GLU (test code = 5085460475) 484 mg/dL 70-110 HH Lab Interpretation (test code = Abnormal 91155-5) [facility] GLUCOSE (AUTOMATED)2022-03-08 05:42:15 Test Item Value Reference Range Interpretation Comments POCT GLU (test code = 4803811190) 307 mg/dL 70-110 H Lab Interpretation (test code = Abnormal 45693-2) [facility] GLUCOSE (AUTOMATED)2022-03-08 05:42:15 Test Item Value Reference Range Interpretation Comments POCT GLU (test code = 5686897167) 307 mg/dL 70-110 H Lab Interpretation (test code = Abnormal 01363-6) [facility] GLUCOSE (AUTOMATED)2022-03-08 02:29:53 Test Item Value Reference Range Interpretation Comments POCT GLU (test code = 6092802609) 298 mg/dL 70-110 H Lab Interpretation (test code = Abnormal 01370-2) [facility] GLUCOSE (AUTOMATED)2022-03-08 02:29:53 Test Item Value Reference Range Interpretation Comments POCT GLU (test code = 1731570842) 298 mg/dL 70-110 H Lab Interpretation (test code = Abnormal 96988-4) [facility] GLUCOSE (AUTOMATED)2022-03-07 23:10:06 Test Item Value Reference Range Interpretation Comments POCT GLU (test code = 4249904774) 356 mg/dL 70-110 H Lab Interpretation (test code = Abnormal 17334-0) [facility] GLUCOSE (AUTOMATED)2022-03-07 23:10:06 Test Item Value Reference Range Interpretation Comments POCT GLU (test code = 8329097410) 356 mg/dL 70-110 H Lab Interpretation (test code = Abnormal 34048-8) [facility] GLUCOSE (AUTOMATED)2022-03-07 22:18:04 Test Item Value Reference Range Interpretation Comments POCT GLU (test code = 1686774076) 374 mg/dL 70-110 H Lab Interpretation (test code = Abnormal 55852-5) [facility] GLUCOSE (AUTOMATED)2022-03-07 22:18:04 Test Item Value Reference Range Interpretation Comments POCT GLU (test code = 8137592125) 374 mg/dL 70-110 H Lab Interpretation (test code = Abnormal 15227-3) [facility] GLUCOSE (AUTOMATED)2022-03-07 17:34:08 Test Item Value Reference Range Interpretation Comments POCT GLU (test code = 8338585366) 383 mg/dL 70-110 H Lab Interpretation (test code = Abnormal 93095-1) [facility] GLUCOSE (AUTOMATED)2022-03-07 17:34:08 Test Item Value Reference Range Interpretation Comments POCT GLU (test code = 2340681171) 383 mg/dL 70-110 H Lab Interpretation (test code = Abnormal 38331-2) [facility] GLUCOSE (AUTOMATED)2022-03-07 08:46:10 Test Item Value Reference Range Interpretation Comments POCT GLU (test code = 4311459569) 229 mg/dL 70-110 H Lab Interpretation (test code = Abnormal 11686-5) [facility] GLUCOSE (AUTOMATED)2022-03-07 08:46:10 Test Item Value Reference Range Interpretation Comments POCT GLU (test code = 4518687534) 229 mg/dL 70-110 H Lab Interpretation (test code = Abnormal 65844-8) [facility] [id number] 08:20:29 Test Item Value Reference Range Interpretation Comments ESR (test code = 97157-6) See_Comment [ Automated message] The system [employer] generated this result transmitted ref erence range: 0 - 10 m m/HR. The reference r ambrosio was not used to interpret this result as normal/abnor mal. Lab Interpretation (test Normal code = 13131-9) [facility] [id number] 08:20:29 Test Item Value Reference Range Interpretation Comments ESR (test code = 86357-4) See_Comment [ Automated message] The system [employer] generated this result transmitted ref erence range: 0 - 10 m m/HR. The reference r ambrosio was not used to interpret this result as normal/abnor mal. Lab Interpretation (test Normal code = 21520-1) [facility] 08:17:03 Test Item Value Reference Range Interpretation Comments HGB A1C (test code = 7.6 % 4.0-5.7 H 4548-4) CLIFF (test code = CLIFF) Reference RangesNormal: <5.7%Prediabetes: 5.7 - 6.4%Diabetes: > 6.5% Lab Interpretation (test Abnormal code = 61152-7) [facility]2022-03-07 08:17:03 Test Item Value Reference Range Interpretation Comments HGB A1C (test code = 7.6 % 4.0-5.7 H 4548-4) CLIFF (test code = CLIFF) Reference RangesNormal: <5.7%Prediabetes: 5.7 - 6.4%Diabetes: > 6.5% Lab Interpretation (test Abnormal code = 75808-5) [facility]26504)(TOTAL CHOLESTEROL, TRIGLYCERIDES, HDL)2022-03-07 07:33:05 Test Item Value Reference Range Interpretation Comments CHOL (test code = 250 mg/dL 120-200 H 0399804861) HDL (test code = 55 mg/dL See_Comment [Automated message] 2666164694) The system [employer] generated this result transmit jay reference range : >=40. The refer ence range was not u sed to interpret th is result as normal/abnormal . HDLC RATIO (test code = See_Comment [Au tomated message] 9873199380) The system [employer] generated this result transmit jay reference range : <=5.0. The refe rence range was not u sed to interpret th is result as normal/abnormal . TRIG (test code = 171 mg/dL 30-170 H 4270685922) LDL CHOL (test code = 161 mg/dL See_Comment H [Auto mated message] 99827-8) The system [employer] generated this result transmit jay reference range : <=160. The refe rence range was not u sed to interpret th is result as normal/abnormal . VLDL (test code = 34 mg/dL 5-60 8795407770) Lab Interpretation (test Abnormal code = 65623-6) [facility] (80099)(TOTAL CHOLESTEROL, TRIGLYCERIDES, HDL)2022-03-07 07:33:05 Test Item Value Reference Range Interpretation Comments CHOL (test code = 250 mg/dL 120-200 H 3902896850) HDL (test code = 55 mg/dL See_Comment [Automated message] 8464354968) The system [employer] generated this result transmit jay reference range : >=40. The refer ence range was not u sed to interpret th is result as normal/abnormal . HDLC RATIO (test code = See_Comment [Au tomated message] 9804913361) The system [employer] generated this result transmit jay reference range : <=5.0. The refe rence range was not u sed to interpret th is result as normal/abnormal . TRIG (test code = 171 mg/dL 30-170 H 6223802067) LDL CHOL (test code = 161 mg/dL See_Comment H [Auto mated message] 14862-9) The system [employer] generated this result transmit jay reference range : <=160. The refe rence range was not u sed to interpret th is result as normal/abnormal . VLDL (test code = 34 mg/dL 5-60 1536283573) Lab Interpretation (test Abnormal code = 83036-5) [facility] [id number] 07:31:45 Test Item Value Reference Range Interpretation Comments FREE T4 (test code = See_Comment [Autom ated message] 2347016784) The system [employer] generated this result transmitted ref erence range: 0.78 - 2 .20 ng/dL:. The ref erence range was not u sed to interpret this result as normal/abnor mal. Lab Interpretation (test Normal code = 51230-2) [facility] [id number] 07:31:45 Test Item Value Reference Range Interpretation Comments FREE T4 (test code = See_Comment [Autom ated message] 5727090492) The system [employer] generated this result transmitted ref erence range: 0.78 - 2 .20 ng/dL:. The ref erence range was not u sed to interpret this result as normal/abnor mal. Lab Interpretation (test Normal code = 48179-5) [facility] [id number] 07:31:25 Test Item Value Reference Range Interpretation Comments FREE T3 (test code = 3203694340) 3.54 pg/mL 2.77-5.27 Lab Interpretation (test code = Normal 36583-2) [place] [id number] 07:31:25 Test Item Value Reference Range Interpretation Comments FREE T3 (test code = 3010020339) 3.54 pg/mL 2.77-5.27 Lab Interpretation (test code = Normal 51760-2) [facility] [id number] 07:23:24 Test Item Value Reference Range Interpretation Comments NT-proBNP (test code 107 pg/mL See_Comment [Autom ated = 7326767414) message] The system which generated this result transmitted reference range : <=125. The reference range was not used to interpret this result as normal/abnormal . CLIFF (test code = CLIFF) Biotin has been reported to cause a negative bias, interpret results relative to patient's use of biotin. Lab Interpretation Normal (test code = 07091-8) [facility] [id number] 07:23:24 Test Item Value Reference Range Interpretation Comments NT-proBNP (test code 107 pg/mL See_Comment [Autom ated = 4155790551) message] The system which generated this result transmitted reference range : <=125. The reference range was not used to interpret this result as normal/abnormal . CLIFF (test code = CLFIF) Biotin has been reported to cause a negative bias, interpret results relative to patient's use of biotin. Lab Interpretation Normal (test code = 04203-3) [facility]2022-10-31 07:14:08 Test Item Value Reference Range Interpretation Comments MAGNESIUM (test code = 5255446006) 2.0 mg/dL 1.7-2.4 Lab Interpretation (test code = Normal 68919-5) [facility]2022-10-31 07:14:08 Test Item Value Reference Range Interpretation Comments MAGNESIUM (test code = 0012622921) 2.0 mg/dL 1.7-2.4 Lab Interpretation (test code = Normal 93668-8) [facility]2022-10-31 07:13:48 Test Item Value Reference Range Interpretation Comments ALCOHOL (test code = 165 mg/dL 1920346858) CLIFF (test code = CLIFF) <10 Safrjdsp95-628 Toxic>100 Depression of VIDEO GAME PROGRAMMER>400 [facility]atalities Reported [facility] 07:13:48 Test Item Value Reference Range Interpretation Comments ALCOHOL (test code = 165 mg/dL 3004199437) CLIFF (test code = CLIFF) <10 Wnvvnequ46-467 Toxic>100 Depression of VIDEO GAME PROGRAMMER>400 [facility]orted [facility] [id number] 07:13:47 Test Item Value Reference Range Interpretation Comments URIC ACID (test code = 7949733111) 4.7 mg/dL 3.6-8.0 Lab Interpretation (test code = Normal 20121-3) [facility] [id number] 07:13:47 Test Item Value Reference Range Interpretation Comments URIC ACID (test code = 3273697677) 4.7 mg/dL 3.6-8.0 Lab Interpretation (test code = Normal 45472-7) [facility] GLUCOSE (AUTOMATED)2022-03-07 04:16:37 Test Item Value Reference Range Interpretation Comments POCT GLU (test code = 0161483142) 113 mg/dL 70-110 H Lab Interpretation (test code = Abnormal 91525-3) [facility] GLUCOSE (AUTOMATED)2022-03-07 04:16:37 Test Item Value Reference Range Interpretation Comments POCT GLU (test code = 5217341594) 113 mg/dL 70-110 H Lab Interpretation (test code = Abnormal 79059-8) [facility]OLIC PANEL (17654)2022-03-07 02:43:33 Test Item Value Reference Range Interpretation Comments NA (test code = 139 mmol/L 135-145 3713096930) K (test code = 4.2 mmol/L 3.5-5.0 Slight 3158788676) hemolysis CL (test code = 101 mmol/L 98-108 7325082752) CO2 TOTAL (test code 28 mmol/L = 3558087585) AGAP (test code = 2-16 4840276322) BUN (test code = 12 mg/dL 7-23 Slight 9954283529) hemolysis GLUCOSE (test code = 53 mg/dL 70-110 L 4247410174) CREATININE (test code 1.05 mg/dL 0.60-1.25 = 4678769284) TOTAL BILI (test code 0.7 mg/dL 0.1-1.1 = 7243716840) CALCIUM (test code = 8.7 mg/dL 8.6-10.6 8305236261) T PROTEIN (test code 7.7 g/dL 6.3-8.2 = 2671489980) ALBUMIN (test code = 4.3 g/dL 3.5-5.0 7666598143) ALK PHOS (test code = 102 U/L 34-122 Slight 3369182155) hemolysis ALTv (test code = 20 U/L 5-50 1742-6) AST(SGOT) (test code 39 U/L 13-40 Slight = 5917810922) hemolysis eGFR (test code = mL/min/1.73m2 7575978092) CLIFF (test code = CLIFF) Association of [...] tests). Lab Interpretation Abnormal (test code = 94040-5) [facility]. METABOLIC PANEL (81588)2022-03-07 02:43:33 Test Item Value Reference Range Interpretation Comments NA (test code = 139 mmol/L 135-145 6366742589) K (test code = 4.2 mmol/L 3.5-5.0 Slight 1117767667) hemolysis CL (test code = 101 mmol/L 98-108 7744433681) CO2 TOTAL (test code 28 mmol/L 23-31 = 3099749567) AGAP (test code = 2-16 8685055560) BUN (test code = 12 mg/dL 7-23 Slight 1672717153) hemolysis GLUCOSE (test code = 53 mg/dL 70-110 L 9656728618) CREATININE (test code 1.05 mg/dL 0.60-1.25 = 2939727185) TOTAL BILI (test code 0.7 mg/dL 0.1-1.1 = 5671832641) CALCIUM (test code = 8.7 mg/dL 8.6-10.6 5819695579) T PROTEIN (test code 7.7 g/dL 6.3-8.2 = 1017193645) ALBUMIN (test code = 4.3 g/dL 3.5-5.0 6470050091) ALK PHOS (test code = 102 U/L 34-122 Slight 8236976164) hemolysis ALTv (test code = 20 U/L 5-50 1742-6) AST(SGOT) (test code 39 U/L 13-40 Slight = 6250083455) hemolysis eGFR (test code = mL/min/1.73m2 3682789538) CLIFF (test code = CLIFF) Association of [...] tests). Lab Interpretation Abnormal (test code = 12419-9) [facility] WITH [id number] 02:10:35 Test Item Value Reference Range Interpretation Comments WBC (test code = See_Comment H [Automated 5261-2) message] The sy stem which generated this result transmitted reference range : 4.20 - 10.70 10*3/?L. The reference range was not used to interpret this result as normal/abnormal . RBC (test code = See_Comment [Automated 247-8) message] The sy stem which generated this [...] RDW-SD (test code = 42.8 fL 38.5-51.6 95097-7) RDW-CV (test code = 13.7 % 12.1-15.4 788-0) PLT (test code = See_Comment H [Automated 777-3) message] The sy stem which generated this result transmitted reference range : 150 - 328 10*3/ ?L. The reference r ambrosio was not used to interpret this result as normal/abnormal . MPV (test code = 9.6 fL 9.8-13.0 L 69232-0) NRBC/100 WBC (test See_Comment [Automat ed code = 7842670235) message] The system which generated this result transmitted reference range : 0.0 - 10.0 /100 WBCs. The refer ence range was not u sed to interpret th is result as normal/abnormal . NRBC x10^3 (test code See_Comment [Auto mated = 0290043482) message] The s ystem which generated this result transmitted reference range : 10*3/?L. The reference range was not used to interpret this result as normal/abnormal . GRAN MAT (NEUT) % 71.4 % (test code = 770-8) IMM GRAN % (test code 0.50 % = 1823430231) LYMPH % (test code = 19.8 % 736-9) MONO % (test code = 6.0 % 5905-5) EOS % (test code = 1.7 % 713-8) BASO % (test code = 0.6 % 706-2) GRAN MAT x10^3(ANC) 8.52 10*3/uL 1.99-6.95 H (test code = 8835237990) IMM GRAN x10^3 (test 0.06 10*3/uL 0.00-0.06 code = 6323058923) LYMPH x10^3 (test code 2.36 10*3/uL 1.09-3.23 = 731-0) MONO x10^3 (test code 0.72 10*3/uL 0.36-1.02 = 742-7) EOS x10^3 (test code = 0.20 10*3/uL 0.06-0.53 711-2) BASO x10^3 (test code 0.07 10*3/uL 0.01-0.09 = 704-7) Lab Interpretation Abnormal (test code = 26854-1) [facility] WITH [id number] 02:10:35 Test Item Value Reference Range Interpretation [...] RDW-SD (test code = 42.8 fL 38.5-51.6 07520-1) RDW-CV (test code = 13.7 % 12.1-15.4 788-0) PLT (test code = See_Comment H [Automated 777-3) message] The sy stem which generated this result transmitted reference range : 150 - 328 10*3/ ?L. The reference r ambrosio was not used to interpret this result as normal/abnormal . MPV (test code = 9.6 fL 9.8-13.0 L 78079-1) NRBC/100 WBC (test See_Comment [Automat ed code = 1067587487) message] The system which generated this result transmitted reference range : 0.0 - 10.0 /100 WBCs. The refer ence range was not u sed to interpret th is result as normal/abnormal . NRBC x10^3 (test code See_Comment [Auto mated = 0254453310) message] The s ystem which generated this result transmitted reference range : 10*3/?L. The reference range was not used to interpret this result as normal/abnormal . GRAN MAT (NEUT) % 71.4 % (test code = 770-8) IMM GRAN % (test code 0.50 % = 8790225263) LYMPH % (test code = 19.8 % 736-9) MONO % (test code = 6.0 % 5905-5) EOS % (test code = 1.7 % 713-8) BASO % (test code = 0.6 % 706-2) GRAN MAT x10^3(ANC) 8.52 10*3/uL 1.99-6.95 H (test code = 2457237983) IMM GRAN x10^3 (test 0.06 10*3/uL 0.00-0.06 code = 0090657552) LYMPH x10^3 (test code 2.36 10*3/uL 1.09-3.23 = 731-0) MONO x10^3 (test code 0.72 10*3/uL 0.36-1.02 = 742-7) EOS x10^3 (test code = 0.20 10*3/uL 0.06-0.53 711-2) BASO x10^3 (test code 0.07 10*3/uL 0.01-0.09 = 704-7) Lab Interpretation Abnormal (test code = 82620-9) [facility] GLUCOSE (AUTOMATED)2022-03-07 01:47:49 Test Item Value Reference Range Interpretation Comments POCT GLU (test code = 7170946112) 65 mg/dL 70-110 L Lab Interpretation (test code = Abnormal 56003-7) [facility] GLUCOSE (AUTOMATED)2022-03-07 01:47:49 Test Item Value Reference Range Interpretation Comments POCT GLU (test code = 8952616747) 65 mg/dL 70-110 L Lab Interpretation (test code = Abnormal 67192-7) [facility] GLUCOSE (AUTOMATED)2021-03-03 17:40:06 Test Item Value Reference Range Interpretation Comments POCT GLU (test code = 7371795804) 322 mg/dL 70-110 H Lab Interpretation (test code = Abnormal 77545-7) [facility] GLUCOSE (AUTOMATED)2021-03-03 13:09:15 Test Item Value Reference Range Interpretation Comments POCT GLU (test code = 7069590900) 316 mg/dL 70-110 H Lab Interpretation (test code = Abnormal 22062-5) [facility] METABOLIC PANEL (NA, K, CL, CO2, GLUCOSE, BUN, CREATININE, CA)2021-03-03 11:38:31 Test Item Value Reference Range Interpretation Comments NA (test code = 132 mmol/L 135-145 L 6128745985) K (test code = 4.9 mmol/L 3.5-5.0 5293921168) CL (test code = 101 mmol/L 98-108 1722519468) CO2 TOTAL (test code = 27 mmol/L 23-31 7831759008) AGAP (test code = 2-16 8021002916) BUN (test code = 19 mg/dL 7-23 0866287964) GLUCOSE (test code = 318 mg/dL 70-110 H 9651639421) CREATININE (test code = 0.88 mg/dL 0.60-1.25 1142342393) CALCIUM (test code = 9.4 mg/dL 8.6-10.6 7709344014) eGFR (test code = mL/min/1.73m2 5106095604) CLIFF (test code = CLIFF) Association of [...] tests). Lab Interpretation Abnormal (test code = 39708-2) [facility] WITH [id number] 10:44:26 Test Item Value Reference Range Interpretation Comments WBC (test code = See_Comment [Automated 5790-2) message] The sy stem which generated this [...] RDW-SD (test code = 40.4 fL 38.5-51.6 15682-4) RDW-CV (test code = 12.8 % 12.1-15.4 788-0) PLT (test code = See_Comment H [Automated 777-3) message] The sy stem which generated this result transmitted reference range : 150 - 328 10*3/ ?L. The reference r ambrosio was not used to interpret this result as normal/abnormal . MPV (test code = 11.3 fL 9.8-13.0 65655-5) NRBC/100 WBC (test See_Comment [Automat ed code = 2976456351) message] The system which generated this result transmitted reference range : 0.0 - 10.0 /100 WBCs. The refer ence range was not u sed to interpret th is result as normal/abnormal . NRBC x10^3 (test code <0.01 See_Comment [Auto mated = 9991706204) message] The s ystem which generated this result transmitted reference range : 10*3/?L. The reference range was not used to interpret this result as normal/abnormal . GRAN MAT (NEUT) % 51.4 % (test code = 770-8) IMM GRAN % (test code 0.30 % = 3977394340) LYMPH % (test code = 29.5 % 736-9) MONO % (test code = 9.9 % 5905-5) EOS % (test code = 7.3 % 713-8) BASO % (test code = 1.6 % 706-2) GRAN MAT x10^3(ANC) 3.88 10*3/uL 1.99-6.95 (test code = 4903902428) IMM GRAN x10^3 (test <0.03 0.00-0.06 code = 0159611227) LYMPH x10^3 (test code 2.23 10*3/uL 1.09-3.23 = 731-0) MONO x10^3 (test code 0.75 10*3/uL 0.36-1.02 = 742-7) EOS x10^3 (test code = 0.55 10*3/uL 0.06-0.53 H 711-2) BASO x10^3 (test code 0.12 10*3/uL 0.01-0.09 H = 704-7) Lab Interpretation Abnormal (test code = 13972-9) [facility] GLUCOSE (AUTOMATED)2021-03-03 05:25:50 Test Item Value Reference Range Interpretation Comments POCT GLU (test code = 9324452575) 140 mg/dL 70-110 H Lab Interpretation (test code = Abnormal 18169-8) [facility] GLUCOSE (AUTOMATED)2021-03-03 05:25:49 Test Item Value Reference Range Interpretation Comments POCT GLU (test code = 9403537139) 129 mg/dL 70-110 H Lab Interpretation (test code = Abnormal 29563-6) [facility] GLUCOSE (AUTOMATED)2021-03-02 22:33:16 Test Item Value Reference Range Interpretation Comments POCT GLU (test code = 4511830016) 205 mg/dL 70-110 H Lab Interpretation (test code = Abnormal 76083-3) [facility] GLUCOSE (AUTOMATED)2021-03-02 17:32:23 Test Item Value Reference Range Interpretation Comments POCT GLU (test code = 1990157562) 253 mg/dL 70-110 H Lab Interpretation (test code = Abnormal 97079-2) [facility] [id number] 14:39:03 Test Item Value Reference Range Interpretation Comments FREE T4 (test code = See_Comment L [Autom ated message] 9754912934) The system [employer] generated this result transmitted ref erence range: 0.78 - 2 .20 ng/dL:. The ref erence range was not u sed to interpret this result as normal/abnor mal. Lab Interpretation (test Abnormal code = 53109-3) [facility] [id number] 14:38:22 Test Item Value Reference Range Interpretation Comments FREE T3 (test code = 9005605762) 2.94 pg/mL 2.77-5.27 Lab Interpretation (test code = Normal 48395-1) [facility] GLUCOSE (AUTOMATED)2021-03-02 13:04:49 Test Item Value Reference Range Interpretation Comments POCT GLU (test code = 8161787339) 177 mg/dL 70-110 H Lab Interpretation (test code = Abnormal 80442-1) [facility] Metabolic Panel (NA, K, CL, CO2, GLUCOSE, BUN, CREATININE, CA)2021-03-02 12:10:05 Test Item Value Reference Range Interpretation Comments NA (test code = 134 mmol/L 135-145 L 9430869093) K (test code = 4.8 mmol/L 3.5-5.0 9753022260) CL (test code = 106 mmol/L 98-108 1117009689) CO2 TOTAL (test code = 24 mmol/L 23-31 5516783531) AGAP (test code = 2-16 1875469843) BUN (test code = 14 mg/dL 7-23 8807022960) GLUCOSE (test code = 201 mg/dL 70-110 H 1935773806) CREATININE (test code = 0.83 mg/dL 0.60-1.25 0389977131) CALCIUM (test code = 9.4 mg/dL 8.6-10.6 8865116451) eGFR (test code = mL/min/1.73m2 1116805259) CLIFF (test code = CLIFF) Association of [...] tests). Lab Interpretation Abnormal (test code = 56778-6) [facility] GLUCOSE (AUTOMATED)2021-03-02 04:41:03 Test Item Value Reference Range Interpretation Comments POCT GLU (test code = 8718220203) 165 mg/dL 70-110 H Lab Interpretation (test code = Abnormal 82423-3) [facility] GLUCOSE (AUTOMATED)2021-03-01 21:40:23 Test Item Value Reference Range Interpretation Comments POCT GLU (test code = 6284535196) 338 mg/dL 70-110 H Lab Interpretation (test code = Abnormal 34649-6) [facility] GLUCOSE (AUTOMATED)2021-03-01 21:15:20 Test Item Value Reference Range Interpretation Comments POCT GLU (test code = 3452982786) 308 mg/dL 70-110 H Lab Interpretation (test code = Abnormal 11362-6) [facility] [id number] 20:59:15 Test Item Value Reference Range Interpretation Comments TSH (test code = See_Comment H [Automated message] 9861202426) The system [employer] generated this result transmitted ref erence range: 0.45 - 4 .70 mIU/L. The refe rence range was not u sed to interpret this result as normal/abnor mal. Lab Interpretation (test Abnormal code = 71885-4) [facility] (A[facility]C)2021-03-01 20:50:54 Test Item Value Reference Range Interpretation Comments HGB A1C (test code = 8.6 % 4.0-5.7 H 4548-4) CLIFF (test code = CLIFF) Reference RangesNormal: <5.7%Prediabetes: 5.7 - 6.4%Diabetes: > 6.5% Lab Interpretation (test Abnormal code = 02406-7) [facility] GLUCOSE (AUTOMATED)2021-03-01 18:26:29 Test Item Value Reference Range Interpretation Comments POCT GLU (test code = 2764079075) 177 mg/dL 70-110 H Lab Interpretation (test code = Abnormal 17762-8) [facility] GLUCOSE (AUTOMATED)2021-03-01 16:52:10 Test Item Value Reference Range Interpretation Comments POCT GLU (test code = 7717073013) 112 mg/dL 70-110 H Lab Interpretation (test code = Abnormal 53921-8) [facility] GLUCOSE (AUTOMATED)2021-03-01 16:52:10 Test Item Value Reference Range Interpretation Comments POCT GLU (test code = 0370061253) 154 mg/dL 70-110 H Lab Interpretation (test code = Abnormal 85861-9) [facility]21[facility] 16:14:23 Test Item Value Reference Range Interpretation Comments MAGNESIUM (test code = 8093308172) 1.8 mg/dL 1.7-2.4 Lab Interpretation (test code = Normal 72028-8) [facility]. METABOLIC PANEL (15935)2021-03-01 16:14:02 Test Item Value Reference Range Interpretation Comments NA (test code = 136 mmol/L 135-145 3799918046) K (test code = 4.1 mmol/L 3.5-5.0 3524431280) CL (test code = 105 mmol/L 98-108 2818366257) CO2 TOTAL (test code = 28 mmol/L 23-31 9576988952) AGAP (test code = 2-16 8366336555) BUN (test code = 14 mg/dL 7-23 7923301130) GLUCOSE (test code = 187 mg/dL 70-110 H 6044870524) CREATININE (test code = 0.85 mg/dL 0.60-1.25 7075904044) TOTAL BILI (test code = 0.6 mg/dL 0.1-1.0 1431676499) CALCIUM (test code = 9.0 mg/dL 8.6-10.6 0109031602) T PROTEIN (test code = 7.2 g/dL 6.3-8.2 0259392392) ALBUMIN (test code = 3.9 g/dL 3.5-5.0 3649097690) ALK PHOS (test code = 77 U/L 34-122 4729519957) ALTv (test code = 19 U/L 5-50 1742-6) AST(SGOT) (test code = 25 U/L 13-40 4245823293) eGFR (test code = mL/min/1.73m2 8350834595) CLIFF (test code = CLIFF) Association of [...] tests). Lab Interpretation Abnormal (test code = 33030-3) [facility] WITH [id number] 15:58:21 Test Item Value Reference Range Interpretation Comments WBC (test code = See_Comment H [Automated 8490-2) message] The sy stem which generated this result transmitted reference range : 4.20 - 10.70 10*3/?L. The reference range was not used to interpret this result as normal/abnormal . RBC (test code = See_Comment [Automated 579-8) message] The sy stem which generated this [...] RDW-SD (test code = 41.1 fL 38.5-51.6 23605-1) RDW-CV (test code = 12.7 % 12.1-15.4 788-0) PLT (test code = See_Comment H [Automated 777-3) message] The sy stem which generated this result transmitted reference range : 150 - 328 10*3/ ?L. The reference r ambrosio was not used to interpret this result as normal/abnormal . MPV (test code = 9.6 fL 9.8-13.0 L 40265-5) NRBC/100 WBC (test See_Comment [Automat ed code = 8992414932) message] The system which generated this result transmitted reference range : 0.0 - 10.0 /100 WBCs. The refer ence range was not u sed to interpret th is result as normal/abnormal . NRBC x10^3 (test code <0.01 See_Comment [Auto mated = 6494640976) message] The s ystem which generated this result transmitted reference range : 10*3/?L. The reference range was not used to interpret this result as normal/abnormal . GRAN MAT (NEUT) % 57.2 % (test code = 770-8) IMM GRAN % (test code 0.50 % = 7530688006) LYMPH % (test code = 23.8 % 736-9) MONO % (test code = 8.8 % 5905-5) EOS % (test code = 8.4 % 713-8) BASO % (test code = 1.3 % 706-2) GRAN MAT x10^3(ANC) 6.36 10*3/uL 1.99-6.95 (test code = 3010319340) IMM GRAN x10^3 (test 0.05 10*3/uL 0.00-0.06 code = 4678479607) LYMPH x10^3 (test code 2.64 10*3/uL 1.09-3.23 = 731-0) MONO x10^3 (test code 0.98 10*3/uL 0.36-1.02 = 742-7) EOS x10^3 (test code = 0.93 10*3/uL 0.06-0.53 H 711-2) BASO x10^3 (test code 0.14 10*3/uL 0.01-0.09 H = 704-7) Lab Interpretation Abnormal (test code = 11388-0) [facility] [id number] 06:00:00 Test Item Value Reference Range Interpretation Comments CULTURE (GLORIA) (test No growth in 5 days code = 1095) URINE [id number] 10:25:00 Test Item Value Reference Range Interpretation Comments CULTURE (GLORIA) (test code = 1095) No growth POCT-GLUCOSE [id number] 17:10:00 Test Item Value Reference Range Interpretation Comments POC-GLUCOSE METER 232 mg/dL 70-110 H TESTED AT [facility] [address] ([facility]) (test code = [place] 1538) [address] CT, CTANGIO [id number] 16:41:00CTV pleaseFINAL REPORT CTV brain 02/13/2018 4:35 [...] Verified Date/Time: 02/13/2018 16:41:24 Reading Location: [facility] Reading Room -GLUCOSE [id number] 13:07:00 Test Item Value Reference Range Interpretation Comments POC-GLUCOSE METER 311 mg/dL 70-110 H Nadiried R N MD/TESTED (BEAKER) (test code = AT [facility] [address] [facility] [place] [address] 0 IRON, TIBC, % SAT. (WITHOUT FERRITIN)2018-02-13 10:10:00 Test Item Value Reference Range Interpretation Comments IRON (BEAKER) (test code = 547) 49 ug/dL 40-160 TOTAL IRON BINDING CAPACITY 231 ug/dL 250-450 L (BEAKER) (test code = 769) IRON % SATURATION (2) (BEAKER) 21 % 20-55 (test code = 2590) POCT-GLUCOSE [id number] 08:50:00 Test Item Value Reference Range Interpretation Comments POC-GLUCOSE METER 348 mg/dL 70-110 H Notified R N MD/TESTED (BEAKER) (test code = AT [address]) [place] [address] BASIC METABOLIC [id number] 08:31:00 Test Item Value Reference Range Interpretation [...] NOT APPLICABLE FOR DIALYSIS PATIEN TS. LIPID [id number] 08:31:00 Test Item Value Reference Range Interpretation [...] 130-159 High 160-189 Very High >=190IMMATURE RETICULOCYTE [id number] 08:16:00 Test Item Value Reference Range Interpretation Comments IMMATURE RETIC FRACTION (BEAKER) 8.600 % 2.300-13.400 (test code = 1447) RETICULOCYTE COUNT PCT (BEAKER) (test 1.4 % 0.5-1.8 code = 575) CBC W/PLT COUNT & AUTO [id number] 08:16:00 Test Item Value Reference Range Interpretation [...] PERCENT (BEAKER) (test code = 2801) POCT-GLUCOSE [id number] 21:18:00 Test Item Value Reference Range Interpretation Comments POC-GLUCOSE METER 226 mg/dL 70-110 H TESTED AT [facility] [address] (BEAKER) (test code = [place] Servin [facility] 1538) [address] MR, BRAIN, WITHOUT [id number] 19:43:00FINAL REPORT MRI brain without contrast INDICATION: [...] thrombus cannot be excluded. The major proximal [place] flow voids are maintained. Mild [...] Consider ENT follow up. Signed: Jostin Gregory MDReport Verified Date/Time: 02/12/2018 19:43:32 Reading Location: [facility] Reading Room -GLUCOSE [id number] 19:01:00 Test Item Value Reference Range Interpretation Comments POC-GLUCOSE METER 362 mg/dL 70-110 H TESTED AT [place] [address] ([facility]) (test code = [place] 15[address]) [address] EEG AWAKE AND [id number] 17:46:00Reason for exam:->SeizureShould this be performed at the bedside?->[facility] REPORTDATE OF TEST: 48-7-5127YVRF OF REPORT: [id number]: [id number]: [id number] time: 14:04Stop time: 14:24ICD-10: R56.9CPT Code: 04165YHNQLOS: 40 y old 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, [...] this report.Queenie Loco MD, PhDClinical Neurophysiology/Epilepsy AttendingCHI [facility] POCT-GLUCOSE [id number] 15:33:00 Test Item Value Reference Range Interpretation Comments POC-GLUCOSE METER 213 mg/dL 70-110 H TESTED AT [place] [address] ([facility]) (test code = [facility] 1538) [address] TSH/FREE T4 IF [id number] 09:35:00 Test Item Value Reference Range Interpretation Comments THYROID STIMULATING HORMONE 4.03 uIU/mL 0.35-4.94 ([facility]) (test code = 772) HEMOGLOBIN [id number] 08:47:00 Test Item Value Reference Range Interpretation Comments HEMOGLOBIN A1C ([facility]) (test code = 6.5 % 4.3-6.1 H 368) POCT-GLUCOSE [id number] 07:55:00 Test Item Value Reference Range Interpretation Comments POC-GLUCOSE METER 219 mg/dL 70-110 H TESTED AT [place] [address] ([facility]) (test code = [facility] [facility] 1538) [address] [id number] 05:00:00 Test Item Value Reference Range Interpretation Comments [facility] (test code = 2.1 mg/dL 1.6-2.6 627) BASIC METABOLIC [id number] 05:00:00 Test Item Value Reference Range Interpretation [...] PATIEN TS. CBC W/PLT COUNT & AUTO [id number] 04:40:00 Test Item Value Reference Range Interpretation [...] PERCENT (BEAKER) (test code = 2801) POCT-GLUCOSE [id number] 04:31:00 Test Item Value Reference Range Interpretation Comments POC-GLUCOSE METER 183 mg/dL 70-110 H TESTED AT [facility] [address] (BEAKER) (test code = [place] [facility] 1538) [address] RAD, ABDOMEN/KUB, 1 VIEW [id number] 01:33:00Reason for exam:->Abdominal distension, obtundationFINAL REPORT CLINICAL [...] MDReport Verified Date/Time: 02/12/2018 01:33:19 Reading Location: [address] Transitional Reading Room POCT-GLUCOSE METER 2018-02-12 00:49:00 Test Item Value Reference Range Interpretation Comments POC-GLUCOSE METER 346 mg/dL 70-110 H TESTED AT [facility] [address] (BEAKER) (test code = [place] 15[address]) [address] CBC W/PLT COUNT & AUTO [id number] 00:44:00 Test Item Value Reference Range Interpretation [...] (test code = 2801) RAPID DRUG SCREEN, [id number] 00:35:00 Test Item Value Reference Range Interpretation [...] situations. Chain of custody not maintained. Some hlmy-trj-qzdnnst medications, as well as adulterants, may cause inaccurate results. Clinical correlation should be applied. A more comprehensive drug screen or confirmation of a detected drug may be performed upon request.TROPONIN [id number] 00:15:00 Test Item Value Reference Range Interpretation [...] acute neurological disease, and persistent tachyarrhythmia.COMPREHENSIVE METABOLIC [id number] 00:09:00 Test Item Value Reference Range Interpretation [...] APPLICABLE FOR DIALYSIS PATIEN TS. URINALYSIS W/ [id number] 00:06:00 Test Item Value Reference Range Interpretation [...] = 2795) RAD, CHEST, 1 VIEW, NON [id number] 23:11:00Reason for exam:->Obtundation with coarse respirations, baselineShould [facility]?->YesFINAL REPORT RAD, CHEST, 1 VIEW, NON DEPT INDICATION: Obtundation with coarse respirations, baseline COMPARISON: None. FINDINGS: Portable frontal view of the chest. IMPRESSION: Support Lines: None. Lungs and pleura: Clear lungs. No pneumothorax.Heart and mediastinum: Unremarkable.Additional findings: Fluid and gaseous distention of the gastric lumen. Signed: JR Lozano Robert MDReport Verified Date/Time: 02/11/2018 23:11:04 Reading Location: [address] Reading Room "
[2022-05-16] MEDS ORDERED: D10W 250 ML IV ONE (05:24)
[2022-05-16] MEDS ORDERED: D5W 1,000 ML IV ONE (05:46)
[2022-05-16 05:47] LABS: Hematocrit 42.1 % (39.6-49.0); Lymphocytes % 12.5 % (15.3-44.8); MCV 89.2 fL (80-100); MPV 7.7 fL (7.6-11.3); RBC Red Blood Cell Count 4.72 M/uL (4.33-5.43)
[2022-05-16 06:05] LABS: Albumin 3.4 g/dL (3.4-5.0); Bilirubin Total 0.4 mg/dL (0.2-1.0); Potassium 3.1 mmol/L (3.5-5.1); Protein, Total 7.9 g/dL (6.4-8.2); Troponin High Sensitivity 40.1 pg/mL (<58.9)
[2022-05-16] MEDS ORDERED: Ringers Lactate 1,000 ML IV ONE (06:23)
[2022-05-16] MEDS ORDERED: KCL 20 MEQ/100 mL IVPB 200 ML IV ONE (06:23)
[2022-05-16] MEDS ORDERED: Magnesium Sulfate 2gm IVPB 2 G/50 ML BAG IV ONE (06:24)
--- NOTE | 2022-05-16 06:55 | EDPHYS ---
Physician Documentation [facility] Name: Surjit Stubbs Age: 47 yrs Sex: Male : 1975 Arrival Date: 05/16/2022 Time: 05:06 Bed 6 Private MD: ED Physician Mack Goldberg HPI: 05/16 05:23 This 47 yrs old Male presents to ER via EMS with complaints of hypoglycemia. rt 05:23 Onset: The symptoms/episode began/occurred at an unknown time. Patient who is a type I rt diabetic on insulin presents to the ED with recurrent hypoglycemia. Patient's blood sugar was reportedly 29, he reportedly had about 3 seizures. This did resolve with the dextrose. Patient denies recent illness states that he ate dinner. Denies other acute complaints at this time. Symptoms are severe in severity, no other aggravating alleviating factors.. Historical: - Allergies: 05:17 tramadol; as6 - PMHx: 05:17 Diabetes - IDDM; High Cholesterol; Hypothyroidism; neuropathy; Seizures; as6 - Immunization history:: Adult Immunizations unknown. - Social history:: Smoking status: Patient reports the use of cigarette tobacco products. - Family history:: not pertinent. ROS: 05:23 Unable to obtain ROS due to altered mental status. rt Exam: 05:23 Constitutional: This is a well developed, well nourished patient who is awake, alert, rt and in no acute distress. Head/Face: Normocephalic, atraumatic. Eyes: Pupils equal round and reactive to light, extra-ocular motions intact. Lids and lashes normal. Conjunctiva and sclera are non-icteric and not injected. Cornea within normal limits. Periorbital areas with no swelling, redness, or edema. ENT: Nares patent. No nasal discharge, no septal abnormalities noted. Tympanic membranes are normal and external auditory canals are clear. Oropharynx with no redness, swelling, or masses, exudates, or evidence of obstruction, uvula midline. Mucous membranes moist. Chest/axilla: Normal chest wall appearance and motion. Nontender with no deformity. No lesions are appreciated. Cardiovascular: Regular rate and rhythm with a normal S1 and S2. No gallops, murmurs, or rubs. Normal PMI, no JVD. No pulse deficits. Respiratory: Lungs have equal breath sounds bilaterally, clear to auscultation and percussion. No rales, rhonchi or wheezes noted. No increased work of breathing, no retractions or nasal flaring. Abdomen/GI: Soft, non-tender, with normal bowel sounds. No distension or tympany. No guarding or rebound. No evidence of tenderness throughout. Skin: Warm, dry with normal turgor. Normal color with no rashes, no lesions, and no evidence of cellulitis. MS/ Extremity: Pulses equal, no cyanosis. Neurovascular intact. Full, normal range of motion. 05:23 Neuro: Confused, moves all 4 extremities equally. Vital Signs: 05:13 BP 162 / 100; Pulse 112; Resp 20 S; Temp 98.1(O); Pulse Ox 99% on R/A; as6 05:44 Weight 74.84 kg; Height 5 ft. 9 in. (175.26 cm); as6 06:09 BP 157 / 93; Pulse 85; Resp 13 S; Pulse Ox 99% on R/A; as6 06:38 BP 147 / 94; Pulse 90; Resp 15 S; Pulse Ox 100% on R/A; as6 07:30 BP 149 / 94; Pulse 94; Resp 20; Temp 97.5; Pulse Ox 97% on R/A; Pain 0/10; ll1 05:44 Body Mass Index 24.37 (74.84 kg, 175.26 cm) as6 MDM: 05:11 Patient medically screened. rt 06:55 Differential Diagnosis Induced hypoglycemia, sepsis, acute coronary syndrome.. Data rt reviewed: vital signs, nurses notes, old medical records, lab test result(s), EKG, radiologic studies. ED course: Patient presents to the ED with recurrent hypoglycemia with seizure. He has no focal neurologic deficits. The patient had a return of the hypoglycemia, this did improve with repeat dextrose administration. He is found to have a hypokalemia, repleted in the ED. Patient has lactic acidosis, likely due to seizure. IV fluids were given. I see no infectious etiology at this time, therefore, IV antibiotics were considered but deferred. Chest x-ray shows no acute findings. The rest of the work-up is benign. Patient will be admitted for further care.. 05/16 05:19 Order name: CBC with Diff; Complete Time: 05:59 rt 05/16 05:19 Order name: CMP; Complete Time: 06:11 rt 05/16 05:19 Order name: Magnesium; Complete Time: 06:11 rt 05/16 05:19 Order name: ETOH Level; Complete Time: 06:11 rt 05/16 05:19 Order name: Troponin High Sensitivity; Complete Time: 06:11 rt 05/16 05:19 Order name: Lactate w/ 2H reflex if indic.; Complete Time: 06:11 rt 05/16 05:19 Order name: CPK; Complete Time: 06:11 rt 05/16 05:31 Order name: Glucose, Ancillary Testing; Complete Time: 05:59 EDMS 05/16 06:48 Order name: Glucose, Ancillary Testing; Complete Time: 06:57 EDMS 05/16 06:50 Order name: SARS RAPID vc1 05/16 07:46 Order name: Glucose, Ancillary Testing EDMS 05/16 07:54 Order name: Glucose ll1 05/16 08:16 Order name: Lactate w/ 2H reflex if indic. EDMS 05/16 05:19 Order name: Chest Single View XRAY rt 05/16 09:09 Order name: Glucose, Ancillary Testing EDMS 05/16 09:29 Order name: CBC with Automated Diff EDMS 05/16 09:29 Order name: CBC with Automated Diff EDMS 05/16 09:29 Order name: Comprehensive Metabolic Panel EDMS 05/16 09:30 Order name: Comprehensive Metabolic Panel EDMS 05/16 09:30 Order name: Protime (+INR) EDMS 05/16 09:30 Order name: Protime (+INR) EDMS 05/16 09:30 Order name: PTT, Activated Partial Thromb EDMS 05/16 09:30 Order name: PTT, Activated Partial Thromb EDMS 05/16 09:30 Order name: Hemoglobin A1c EDMS 05/16 09:37 Order name: Glucose, Ancillary Testing EDMS 05/16 10:54 Order name: Glucose, Ancillary Testing EDMS 05/16 11:59 Order name: Glucose, Ancillary Testing EDMS 05/16 05:19 Order name: Urine Dipstick-Ancillary (obtain specimen); Complete Time: 11:06 rt 05/16 09:29 Order name: Regular EDMS Administered Medications: 05:24 Drug: D10 in Water [4ml/kg] 250 ml Route: IVP; Site: left antecubital; as6 07:39 Follow up: Response: No adverse reaction ll1 05:47 Drug: D5W 75 mg/hr Route: IVPB; Site: right forearm; as6 11:06 Follow up: Response: No adverse reaction; IV Status: Infusion continued upon admission; ll1 IV Intake: 300ml 06:38 Drug: Ringers - Lactated Ringers Solution 1000 ml Route: IV; Rate: calculated rate; as6 Site: left antecubital; 07:38 Follow up: Response: No adverse reaction; IV Status: Completed infusion; IV Intake: ll1 1000ml 06:38 Drug: Potassium Chloride 40 mEq Route: IV; Rate: calculated rate; Site: right forearm; as6 11:06 Follow up: Response: No adverse reaction; IV Status: Completed infusion; IV Intake: ll1 100ml 06:38 Drug: Magnesium Sulfate 2 grams Route: IVPB; Infused Over: 2 hrs; Site: left as6 antecubital; 07:39 Follow up: Response: No adverse reaction; IV Status: Completed infusion; IV Intake: ll1 100ml Point of Care Testing: Blood Glucose: 06:37 Blood Glucose: 67 mg/dL; as6 Ranges: Critical Glucose Levels:Adult <50 mg/dl or >400 mg/dl <40 mg/dl or >180 mg/dl Disposition Summary: 05/16/22 06:54 Hospitalization Ordered Hospitalization Status: Inpatient Admission rt Provider: Jose Nguyen rt Location: Telemetry/[facility] (Inpatient) rt Condition: Serious rt Problem: new rt Symptoms: have improved rt Bed/Room Type: Standard rt Room Assignment: 421(05/16/22 12:59) ja1 Diagnosis - Hypoglycemia, unspecified rt - Hypokalemia rt - lactic acidosis rt Forms: - Medication Reconciliation Form rt - SBAR form rt Critical care time excluding procedures: 06:55 Critical care time: Bedside Care: 30 minutes, Consultation: 5 minutes. Total time: 35 rt minutes Signatures: Dispatcher [employer] Tobias Adamson RN RN ja1 Juan Soto RN RN as6 Mack Goldberg MD MD rt Weston Ko RN ll1 Corrections: (The following items were deleted from the chart) 06:15 06:12 LACTATE+C.LAB.BRZ ordered. EDMS EDMS 12:59 06:54 rt ja1
--- NOTE | 2022-05-16 06:55 | ER ---
Nurse's Notes [facility] Name: Surjit Stubbs Age: 47 yrs Sex: Male : 1975 Arrival Date: 05/16/2022 Time: 05:06 Bed 6 Private MD: Diagnosis: Hypoglycemia, unspecified;Hypokalemia;lactic acidosis Presentation: 05/16 05:13 Chief complaint: EMS states: called out for seizure and hypoglycemia. pt has a history as6 of diabetes and has a history of this happening. initial BGL for EMS was 29. gave 250ml of D10. repeat BGL was 139 and then 75. the lady that was at home with pt report pt had 3 seizures prior to EMS arrival. Coronavirus screen: At this time, the client does not indicate any symptoms associated with coronavirus-19. Ebola Screen: No symptoms or risks identified at this time. Initial Sepsis Screen: Does the patient meet any 2 criteria? No. Patient's initial sepsis screen is negative. Does the patient have a suspected source of infection? No. Patient's initial sepsis screen is negative. Risk Assessment: Do you want to hurt yourself or someone else? Patient reports no desire to harm self or others. Onset of symptoms was May 16, 2022. 05:13 Method Of Arrival: EMS: [facility] as6 05:13 Acuity: TOI 2 as6 Historical: - Allergies: 05:17 tramadol; as6 - PMHx: 05:17 Diabetes - IDDM; High Cholesterol; Hypothyroidism; neuropathy; Seizures; as6 - Immunization history:: Adult Immunizations unknown. - Social history:: Smoking status: Patient reports the use of cigarette tobacco products. - Family history:: not pertinent. Screenin:17 [facility] ED Fall Risk Assessment (Adult) History of falling in the last 3 months, as6 including since admission No falls in past 3 months (0 pts) Confusion or Disorientation No (0 pts) Intoxicated or Sedated No (0 pts) Impaired Gait Yes (1 pt) Mobility Assist Device Used No (0 pt) Altered Elimination No (0 pt) Score/Fall Risk Level 0 - 2 = Low Risk. Abuse screen: Denies threats or abuse. Denies injuries from another. Nutritional screening: No deficits noted. Tuberculosis screening: No symptoms or risk factors identified. Assessment: 05:10 General: Appears ill, slender, Behavior is drowsy. Pain: Denies pain. Neuro: Level of as6 Consciousness is lethargic, post ictal, Oriented to person, place. 05:10 Cardiovascular: Capillary refill < 3 seconds Patient's skin is warm and dry. as6 Respiratory: Respiratory effort is even, unlabored, Respiratory pattern is regular, symmetrical. Derm: Skin is intact. 06:38 General: Behavior is drowsy. Neuro: Level of Consciousness is obeys commands, lethargic.as6 07:00 Reassessment: No changes from previously documented assessment. report received from 1 hand sewer RN. Vital Signs: 05:13 BP 162 / 100; Pulse 112; Resp 20 S; Temp 98.1(O); Pulse Ox 99% on R/A; as6 05:44 Weight 74.84 kg; Height 5 ft. 9 in. (175.26 cm); as6 06:09 BP 157 / 93; Pulse 85; Resp 13 S; Pulse Ox 99% on R/A; as6 06:38 BP 147 / 94; Pulse 90; Resp 15 S; Pulse Ox 100% on R/A; as6 07:30 BP 149 / 94; Pulse 94; Resp 20; Temp 97.5; Pulse Ox 97% on R/A; Pain 0/10; ll1 05:44 Body Mass Index 24.37 (74.84 kg, 175.26 cm) as6 ED Course: 05:06 Patient arrived in ED. ja2 05:10 Mack Goldberg MD is Attending Physician. rt 05:13 Juan Soto, MELANIE is Primary Nurse. as6 05:17 Triage completed. as6 05:17 Arm band placed on. as6 05:17 Placed in gown. Bed in low position. Call light in reach. Side rails up X2. Client as6 placed on continuous cardiac and pulse oximetry monitoring. NIBP monitoring applied. 05:32 Chest Single View XRAY In Process Unspecified. EDMS 05:39 Inserted saline lock: 20 gauge in right forearm, using aseptic technique. Blood as6 collected. Maintain EMS IV. Dressing intact. Good blood return noted. Site clean \T\ dry. Gauge \T\ site: 18G LAC. 06:50 Jose Nguyen MD is Hospitalizing Provider. rt 06:53 No provider procedures requiring assistance completed. Patient admitted, IV remains in as6 place. Administered Medications: 05:24 Drug: D10 in Water [4ml/kg] 250 ml Route: IVP; Site: left antecubital; as6 07:39 Follow up: Response: No adverse reaction ll1 05:47 Drug: D5W 75 mg/hr Route: IVPB; Site: right forearm; as6 11:06 Follow up: Response: No adverse reaction; IV Status: Infusion continued upon admission; ll1 IV Intake: 300ml 06:38 Drug: Ringers - Lactated Ringers Solution 1000 ml Route: IV; Rate: calculated rate; as6 Site: left antecubital; 07:38 Follow up: Response: No adverse reaction; IV Status: Completed infusion; IV Intake: ll1 1000ml 06:38 Drug: Potassium Chloride 40 mEq Route: IV; Rate: calculated rate; Site: right forearm; as6 11:06 Follow up: Response: No adverse reaction; IV Status: Completed infusion; IV Intake: ll1 100ml 06:38 Drug: Magnesium Sulfate 2 grams Route: IVPB; Infused Over: 2 hrs; Site: left as6 antecubital; 07:39 Follow up: Response: No adverse reaction; IV Status: Completed infusion; IV Intake: ll1 100ml Medication: 05:17 VIS not applicable for this client. as6 Point of Care Testing: Blood Glucose: 06:37 Blood Glucose: 67 mg/dL; as6 Ranges: Intake: 07:38 IV: 1000ml; Total: 1000ml. ll1 07:39 IV: 100ml; Total: 1100ml. ll1 11:06 IV: 100ml; Total: 1200ml. ll1 11:06 IV: 300ml; Total: 1500ml. ll1 Outcome: 06:54 Decision to Hospitalize by Provider. rt 07:40 Admitted to ER Hold. Please see [facility] for further documentation. ll1 07:40 Condition: stable 07:40 Instructed on the need for admit. 14:14 Patient left the ED. ll1 Signatures: Dispatcher [employer] Weston Vides RN RN ll1 Elizabeth Overton Ashby, RN RN as6 Mack Goldberg MD MD rt Corrections: (The following items were deleted from the chart) 05:40 05:13 Chief complaint: EMS states: called out for seizure and hypoglycemia. pt has a as6 history of diabetes and has a history of this happening. initial BGL for EMS was 29. gave 250ml of D10. repeat BGL was 139 and then 75 as6
[2022-05-16 07:14] LABS: SARS-CoV-2 Antigen Rapid Res Negative (Negative)
[2022-05-16] MEDS ORDERED: DEXTROSE 10%-WATER 500 ML IV ONE (07:38)
[2022-05-16] MEDS ORDERED: ONDANSETRON 4 MG/2 ML VIAL IV PRN (09:24)
[2022-05-16] MEDS ORDERED: ACETAMINOPHEN 500 MG TAB PO PRN (09:24)
--- NOTE | 2022-05-16 09:29 | P.HP ---
Certification for Inpatient Patient admitted to: Observation With expected LOS: <2 Midnights Patient will require the following post-hospital care: None Practitioner: I am a practitioner with admitting privileges, knowledge of patient current condition, hospital course, and medical plan of care. Services: Services provided to patient in accordance with Admission requirements found in Title 42 Section 412.3 of the Code of Federal Regulations Patient History Date of Service: 05/16/22 Reason for admission: Hypoglycemia Allergies tramadol Allergy (Verified 01/13/20 07:25) Nausea/Vomiting Home Medications: Insulin -Regular Human [Novolin -R*] See Protocol SQ ACHS 05/06/17 Multivitamin [Daily Multiple Vitamin] 1 tab PO DAILY 05/06/17 Glucagon,Human Recombinant [Glucagon Emergency Kit] 1 mg IM PRN PRN #5 vial 12/02/20 Insulin /30 NPH/Reg Human [Novolin 7030*] 25 unit SQ BIDAC #10 ml 12/02/20 Pregabalin [Lyrica*] 100 mg PO BID #60 cap 12/02/20 Thiamine HCl [Vitamin B-1*] 100 mg PO DAILY #30 tablet 12/02/20 Thyroid Tab [[place] Thyroid*] 120 mg PO DAILY #30 tab 12/02/20 gemfibroziL [Lopid*] 600 mg PO BID #60 tab 12/02/20 - Past Medical/Surgical History Diabetic: Yes -: Diabetes mellitus type 1 -: Hypothyroidism -: Hyperlipidemia -: Alcohol abuse -: neuropathy -: adenoidectomy Psychosocial/ Personal History: Patient currently lives at home alone - Family History Father Medical History: Heart disease, Diabetes - Social History Alcohol use: Yes CD- Drugs: No Caffeine use: Yes Physical Examination - Studies Laboratory Data (last 24 hrs) 05/16/22 08:00: Glucose 84 05/16/22 05:36: Sodium 140, Potassium 3.1 L, BUN 6 L, Creatinine 0.83, Glucose 70 L, Magnesium 2.0, Total Bilirubin 0.4, AST 18, ALT 21, Alkaline Phosphatase 132 H 05/16/22 05:36: WBC 7.70, Hgb 14.2, Hct 42.1, Plt Count 397 Assessment & Plan - Advance Directives Does patient have a Living Will: No Does patient have a Durable POA for Healthcare: No
[2022-05-16] MEDS: D5 0.9 NS 1,000 ML IV SCH ×3 (10:00→20:49)
[2022-05-16 10:04] VITALS: BMI 24.3
[2022-05-16 14:24] VITALS: O2SAT 97
[2022-05-16] MEDS ORDERED: GLUCAGON 1 MG/VIAL IM PRN (17:34)
[2022-05-16] MEDS: INSULIN 70/30 100 UNITS/ML SQ SCH (18:17)
[2022-05-17 03:39] LABS: Absolute Lymphocytes (CBC) 2.4 K/uL (0.7-4.9); Hematocrit 44.3 % (39.6-49.0); Lymphocytes % 24.1 % (15.3-44.8); MCV 91.7 fL (80-100); MPV 8.1 fL (7.6-11.3); RBC Red Blood Cell Count 4.83 M/uL (4.33-5.43)
[2022-05-17] MEDS: D10W 250 ML BAG IV PRN ×2 (03:39→08:49)
[2022-05-17 03:49] LABS: Protime INR 0.9
[2022-05-17 04:02] LABS: Albumin 3.3 g/dL (3.4-5.0); Bilirubin Total 0.6 mg/dL (0.2-1.0)
[2022-05-17] MEDS: D5 0.9 NS 1,000 ML IV SCH ×2 (05:38→16:00)
[2022-05-17] MEDS: INSULIN 70/30 100 UNITS/ML SQ SCH ×2 (07:30→16:30)
[2022-05-17] MEDS ORDERED: LORazepam 2 MG/ML VIAL IV PRN (10:29)
--- NOTE | 2022-05-17 12:09 | RAD REPORT ---
EXAM DESCRIPTION: RAD - Chest Single View - 05/16/2022 5:30 am CLINICAL HISTORY: The patient is 47 years old and is Male; hypoglycemia TECHNIQUE: Frontal view of the chest. COMPARISON: 04/13/2022 chest radiograph FINDINGS: LUNGS: Unremarkable. No consolidation. PLEURAL SPACE: Unremarkable. No pleural effusion. No pneumothorax. HEART: Unremarkable. No cardiomegaly. MEDIASTINUM: Unremarkable. BONES/JOINTS: No acute osseous abnormality. Small ossified body versus remote fracture fragment re demonstrated along the right glenohumeral joint space. IMPRESSION: No acute findings in the chest. Electronically signed by: Nicholas Perera MD 05/16/2022 5:42 AM DIRECTOR OF VENDOR MANAGEMENT Due to temporary technical issues with the PACS/Fluency reporting system, reports are being signed by the in house radiologists without review as a courtesy to insure prompt reporting. The interpreting radiologist is fully responsible for the content of the report.
[2022-05-17] MEDS: clonazePAM 0.5 MG TAB PO SCH ×2 (13:35→20:45)
[2022-05-17] MEDS ORDERED: NA CHLORIDE 0.9% 1,000 ML IV ONE (17:45)
[2022-05-17] MEDS ORDERED: INSULIN 70/30 100 UNITS/ML SQ ONE (18:00)
[2022-05-18] MEDS: clonazePAM 0.5 MG TAB PO SCH (09:00)
[2022-05-18 12:28] VITALS: BP 120/68; TEMP 96.8
== END 2022-05-18 12:52 | disposition home or self-care (01) | DRG 638 ==
LOC: ER 05:05 → ERHOLD 09:24 → 4TH 13:41 → OBSVTOIN 05-17 13:03
PROVIDERS: ADMIT Hospitalist; ATTEND Hospitalist
DX: E10.649 Type 1 diabetes mellitus with hypoglycemia without coma (principal); E87.20 Acidosis, unspecified; E03.9 Hypothyroidism, unspecified; E87.6 Hypokalemia; E78.5 Hyperlipidemia, unspecified; F17.210 Nicotine dependence, cigarettes, uncomplicated; Z60.2 Problems related to living alone; Z79.4 Long term (current) use of insulin; Z88.5 Allergy status to narcotic agent; Z79.899 Other long term (current) drug therapy; Z20.822 Contact with and (suspected) exposure to COVID-19
CPT/HCPCS: 36415; 71045; 80053; 80320; 82550; 82947; 83036; 83525; 83605; 83735; 84206; 84484; 84681; 85025; 85610; 85730; 87811; 99285; G0378; J1815; J3475; J3480; J7030; J7042; J7120

== ENCOUNTER 2022-07-23 11:41 | Emergency (ER) | payer SELFPAY ==
--- OUTSIDE RECORDS SUMMARY | 2022-07-23 11:55 | XMS REPORT | Continuity of Care Document ---
:1975 Author Organization [facility] t Address [address] [place] [address] Care Team Providers Name Role Phone Dale Junior Primary Care Physician Jarett MUÑOZ, Ariel Whitehead Attending Clinician BOBBY BURCH Attending Clinician Dina ju Britton MD, Christian Smith Attending Clinician Marcin MUÑOZ, Bobby Palencia Attending Clinician Meghan Sanchez MD Attending Clinician Tien NAVARRO, Brigette Servin Attending Clinician Unavailable Dale Junior Attending Clinician Maria Fernanda Rosa MA Attending Clinician Unavailable Patricia Rodriguez LVN Attending Clinician ARIEL DENSON Attending Clinician Unavailable Aron York DO Attending Clinician Leidy MUÑOZ, [facility] Attending Clinician SHEY RAMOS Attending Clinician Unavailable SHEY RAMOS Attending Clinician Unavailable Brett Chaves MD Attending Clinician Bal Gold MD Attending Clinician BELINDA CONTRERAS Attending Clinician Unavailable Belinda Mitchell S Attending Clinician JORGE PELAYO Attending Clinician Unavailable Lorraine Trevizo MD Attending Clinician Jorge Pelayo MD Attending Clinician Velasquez Alexander MD Attending Clinician [phone] Tor Montano MD Attending Clinician ANDREI MALHOTRA Attending Clinician Unavailable Akira Winter MD Attending Clinician Matt Ford MD Attending Clinician Ryan Cardozo MD Attending Clinician TOR MONTANO Attending Clinician Unavailable MARIA EUGENIA MANRIQUE Attending Clinician Unavailable MEGHAN SANCHEZ Admitting Clinician Unavailable Meghan Sanchez MD Admitting Clinician ARIEL DENSON Admitting Clinician Unavailable Ariel Densno MD Admitting Clinician SHEY RAMOS Admitting Clinician Unavailable JORGE PELAYO Admitting Clinician Unavailable Jorge Pelayo MD Admitting Clinician Matt Ford MD Admitting Clinician MARIA EUGENIA MANRIQUE Admitting Clinician Unavailable Payers Payer Name Policy Type Policy Number Effective Date Expiration Date Aminata patrick [facility] [id number] 2020 FPC 00:00:00 MEDICAID SSI PENDING 2020 PENDING 00:00:00 Problems Condition Condition Condition Status Onset Resolution Last Treating Co mments Source Name Details Category Date Date Treatment Clinician Date Elevated Elevated Disease Active Unive rs troponin troponin 1-16 ity of 00:00: [place] 00 Medical Branch Atypical Atypical Disease Active 2021-05 Unive rs chest pain chest pain 2-28 it y of 00:00: [place] 00 Medical Branch NSTEMI NSTEMI Disease Active 2021-05 Overview: Univer s (non-ST (non-ST 2-28 Formattin ity o f elevated elevated 00:00: g of this Jaun as myocardial myocardial 00 note Me dical infarction infarction might be Branch ) ) different from the original. Added automatic ally from request for surgery [id number] Chest Chest Disease Active 2021-05 Univers pain, [...] due 0-26 ity of to to 00:00: [place] Salma' Salma' 00 Me dical s s Branch thyroiditi thyroiditi s s Hypoglycem Hypoglycem Disease Active 2020-05 U nivers ia ia 0-25 ity of 00:00: [place] 00 Medical Branch Diabetic Diabetic Disease Active Unive rs ketoacidos ketoacidos 6-20 it y of is with is with 00:00: [place] coma coma 00 Medical associated associated Br anch with type with type 2 diabetes 2 diabetes mellitus mellitus 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Recurre 2017-[address] [facility] protein-ca protein-ca nce 0-10 [facility] lizbet lizbet 00:00: Medical malnutriti malnutriti 00 Ce nter on on Acute Acute Disease Active 2017-[address] [facility] encephalop encephalop 0-08 [facility] athy athy 00:00: Medical 00 Center Hyperglyce Hyperglyce Disease Active 2017-[address] [facility]van yvan 0[facility] Hyperchole Hyperchole Disease [...] 00:00: Medical 00 Center Provoked Provoked Disease Recurre 2017-[address] [facility] seizure seizure nce 0-08 [facility] Diabetes Diabetes Disease Recurre 2017-[address] [facility] mellitus mellitus nce 0-08 [facility] Center Convulsive Convulsive Disease Recurre 2017-[address] [facility] seizure seizure nce 0-07 [facility] disorder disorder 00:00: Medica l with with 00 Center status status epilepticu epilepticu s s Type 1 Type 1 Disease Active Univers diabetes diabetes ity of mellitus mellitus [place] [...] Date Quantity Comments Source History of tobacco Cigarette Smoker [facility] [place] [facility] History SDOH Social Unive rsity of Connections [facility] Med ical Together Branch History SDOH Social Unive rsity of Connections [facility] History SDOH Social Unive rsity of Connections [place] [facility] Membership Branch History SDOH Social Unive rsity of Connections [place] [facility] Meetings Branch History SDOH Social 2022-05-24 2022-05-24 7 Unive rsity of Connections Living 00:00:00 00:00:00 [place] [facility] History SDOH 2022-05-24 2022-05-24 6 University o f Physical Activity 00:00:00 00:00:00 [place] M edical DPW Branch History SDOH 2022-05-24 2022-05-24 7 University o f Physical Activity 00:00:00 00:00:00 [place] M edical MPS Branch History SDOH 2022-05-24 2022-05-24 1 University o f Financial 00:00:00 00:00:00 [place] [facility] History SDOH 2022-05-24 2022-05-24 2 University o f Transport Med 00:00:00 00:00:00 [place] Medic al Branch History SDOH 2022-05-24 2022-05-24 2 University o f Transport Non-Med 00:00:00 00:00:00 [facility] edical Branch History SDOH Social 2022-05-24 2022-05-24 3 Unive rsity of Connections Phone 00:00:00 00:00:00 [facility] edical Branch Exposure to 2022-05-13 2022-05-23 Not sure University of SARS-CoV-2 (event) 00:00:00 19:19:00 [facility] [place] Branch Alcohol intake 2022-05-23 2022-05-23 Current drinker Unive rsity of 00:00:00 00:00:00 of alcohol [place] Medical (finding) Branch History SDOH 2022-05-05 2022-05-05 5 University o f Alcohol Frequency 00:00:00 00:00:00 [facility] edical Branch History SDOH 2022-05-05 2022-05-05 1 University o f Alcohol Std Drinks 00:00:00 00:00:00 [facility] [place] Branch History SDOH 2022-05-05 2022-05-05 1 University o f Alcohol Binge 00:00:00 00:00:00 [facility] [place] al Branch Tobacco use and 2022-04-17 2022-04-17 Smokeless Universit y of exposure 00:00:00 00:00:00 tobacco non-user [facility] [place] [facility] dical [place] Alcohol Comment 2022-03-07 2022-03-07 socially Universit y of 00:00:00 00:00:00 [facility] Sex Assigned At [address] [address] [facility] 00:00:00 00:00:00 [facility] Center Smoking Status Start Date Stop Date Source Smokes tobacco daily 2022-04-17 00:00:00 [facility] ity of [facility] Medications Ordered Filled Start Stop Current Ordering Indication Dosage Frequency Signature Comments Components Source Medication Medication Date Date Medication? Clinician (SIG) Name Name aspirin 81 2022- Yes [id number] 81mg Take 1 Univers mg chewable 1-18 02-18 tablet by it y of tablet 00:00: 05:59 mouth in [place] 00 :00 the Medical morning Branch for 30 days. pantoprazol 2022- Yes [id number] 40mg Take 1 Univers e 40 mg EC 05-25 tablet by ity of tablet 00:00: 05:59 mouth in [place] 00 :00 the Medical [facility] Branch for 30 days. aspirin 81 2022- Yes [id number] 81mg Take 1 Univers mg chewable 05-25 tablet by it y of tablet 00:00: 05:59 mouth in [place] 00 :00 the [facility] Branch for 30 days. pantoprazol 0 2022- Yes [id number] 40mg Take 1 Univers e 40 mg EC 05-25 tablet by ity of tablet 00:00: 05:59 mouth in [place] 00 :00 the [facility] Branch for 30 days. atorvastati Yes 80mg 80 mg, Univ ers n (LIPITOR) 05-24 Oral, QPM, it y of tablet 80 23:00: First dose [place] mg 00 on [facility] 05/24/22 at Branch 1700, Until Discontinu ed, Routine KCL 2022- No 40meq 40 mEq, Univers (KLOR-CON 05-24 Oral, ity of M20) tablet 22:15: 23:14 ONCE, 1 [place] 40 mEq 00 :00 dose, On [facility] 05/24/22 at 1615, Routine gabapentin 0 Yes 100mg Take 100 Un lucila 100 mg 1-17 mg by ity of capsule 20:19: mouth in [place] 49 the Medical morning. Branch Thyroid, 0 Yes 120mg Take 120 Univ ers Pork, 1-17 mg by ity of (ARMOUR 20:19: mouth [place] THYROID) 49 daily. Medical 120 mg Branch tablet gabapentin 0 Yes 100mg Take 100 Un lucila 100 mg 1-17 mg by ity of capsule 20:19: mouth in [place] 49 the Medical morning. Branch Thyroid, 0 Yes 120mg Take 120 Univ ers Pork, 1-17 mg by ity of (ARMOUR 20:19: mouth [place] THYROID) 49 daily. Medical 120 mg Branch tablet insulin 0 Yes 10U 10 Units, Unive rs regular 05-24 Subcutaneo ity of human 15:15: us, BIDAC, [place] (HUMULIN R) 00 First dose Me dical injection on Tue Branch 10 Units 05/24/22 at 0915, Until Discontinu ed, Routine
Indica tion for insulin: Hyperglyce yvan pantoprazol Yes 40mg 40 mg, Univ ers e 05-24 Oral, ity of (PROTONIX) 15:00: DAILY, [place] EC tablet 00 First dose Medi rogers 40 mg on [facility] Branch 05/24/22 at 0900, Until Discontinu ed, Routine insulin NPH Yes 20U 20 Units, U nivers (HUMULIN N) 05-24 Subcutaneo it y of injection 15:00: us, [place] 20 Units 00 QAM+PM, Medical First dose Branch on [facility] 05/24/22 at 0900, Until Discontinu ed, Routine gabapentin Yes 100mg 100 mg, Uni vers (NEURONTIN) 05-24 Oral, ity of capsule 100 15:00: DAILY, [place] mg 00 First dose Medical on [facility] 05/24/22 at 0900, Until Discontinu ed, Routine aspirin Yes 81mg 81 mg, Univers chewable 05-24 Oral, ity of tablet 81 15:00: DAILY, [place] mg 00 First dose Medical on [facility] 05/24/22 at 0900, Until Discontinu ed, Routine ticagrelor Yes 90mg 90 mg, Unive rs (BRILINTA) 05-24 Oral, BID, ity of tablet 90 14:00: First dose [place] mg 00 on [facility] Medical 05/24/22 at Branch 0800, Until Discontinu ed, Routine Sliding 0 Yes Subcutaneo [facility] ers Scale 05-24 us, AC+HS, ity of Insulin-Reg 13:30: First dose [place] ular + Fsbg 00 on [facility] l Testing 05/24/22 at Branch 0730, Until Discontinu ed, Routine HEPARIN 2022-0 2022- No 60U/kg 3,810 Univer s SODIUM 05-24-17 Units (60 ity of (PORCINE) 05:30: 05:49 Units/kg [place] as 1,000 00 :00 ?63.5 kg), Medical UNIT/ML IV Push, Branch BOLUS ACS ONCE, 1 ORDER SET dose, On 05/23/22 at 2330, MARCOS heparin 2023-0 Yes 0U/h 0-2,150 Univers 25,000 1-17 Units/hr ity of Units/250 05:14: (0-21.5 [place] mL 33 mL/hr), IV Medical (Premixed Infusion, Branc h Bag) in TITRATE, 0.45 % NS Parameters in Admin. Instr., Starting on 05/23/22 at 2314
In itiate infusion at 12 units/kg/h r [...] therapy. Range, Dosing and Testing: &nbs p;FOR [place], AND [facility] ONLY &nbs p; - aPTT < 35: [...] INITIAL BOLUS OR INITIAL INFUSION RATE.
heparin 2022-0 Yes 3000U FOR Univers (1,000 1-17 REBOLUSING ity of unit/mL, 10 05:14: , Starting [place] mL vial) 23 on [facility] for 05/23/22 at Branch Rebolusing 2314, Until Discontinu ed, Routine
Dosing based on aPPT testing parameters (refer to continuous heparin drip order).
dextrose 2022-0 Yes 250mL 250 mL, IV Un lucila 10% (D10W) 17 Infusion, ity of bolus 05:12: PRN - SEE [place] infusion 48 INSTRUCTIO Medic al 250 mL NS, Branch Administer over 60 Minutes, Other, If blood glucose is < or = 70 mg/dL and patient is unable to swallow or has mental status changes, Starting on 05/23/22 at 2312
If blood glucose is < or = [...] glucose is < 80 mg/dL, repeat.
glucagon 0 Yes 1mg 1 mg, Univers (GLUCAGEN 05-24 Intramuscu ity of DIAGNOSTIC 05:12: lar, PRN, [place] KIT) 46 Starting Medical injection 1 on Mon Branch mg 05/23/22 at 2312, Until Discontinu ed, MARCOS, Blood Glucose < or = 70 mg/dL and patient is unable to swallow or has mental changes. acetaminoph 0 Yes 650mg 650 mg, Un lucila en 05-24 Oral, ity of (TYLENOL) 05:12: Q6HPRN, [place] tablet 650 30 Starting Medic al mg on Mon Branch 05/23/22 at 2312, Until Discontinu ed, Routine, Pain (scale 1-3) nitroglycer 2022-0 Yes .4mg 0.4 mg, Uni vers in 05-24 Sublingual ity of (NITROSTAT) 05:10: , Q5MIN [place] sublingual 31 PRN, Medical tablet 0.4 Starting Branc h mg on 05/23/22 at 2310, Until Discontinu ed, Routine, Chest pain aspirin 3-0 2023- No 325mg 325 mg, Unive rs tablet 325 05-24 Oral, ity of mg 04:30: 03:29 ONCE, 1 [place] 00 :00 dose, On Medical Mon Branch 05/23/22 at 2230, MARCOS insulin NPH 2022- Yes [id number] 20U inject 20 Univers 100 unit/mL 05-24-17 Units ity of injection 00:00: 05:59 under the [place] 00 :00 skin every Medical morning Branch and evening for 30 days. nitroglycer 2022- Yes [id number] .4mg Place 1 Univers in 0.4 mg 05-24- tablet ity of sublingual 00:00: 05:59 under the [place] tablet 00 :00 tongue Medical every 5 Branch (five) minutes as needed for Chest pain for up to 30 days. insulin 2022- Yes [id number] 10U inject 10 Univers regular 05-24-17 Units ity of human 100 00:00: 05:59 under the [place] unit/mL 00 :00 skin 2 Medical injection (two) Branch times daily before breakfast and dinner for 30 days. ticagrelor 2022- Yes [id number] 90mg Take 1 Univers 90 mg 05-24 tablet by ity of tablet 00:00: 05:59 mouth in [place] 00 :00 the Medical morning Branch and 1 tablet in the evening. Do all this for 30 days. atorvastati 2022- Yes [id number] 80mg Take 2 Univers n 40 mg 05-24 tablets by ity o f tablet 00:00: 05:59 mouth [place] 00 :00 every Medical evening Branch for 30 days. insulin NPH 2022- Yes [id number] 20U inject 20 Univers 100 unit/mL 05-24-17 Units ity of injection 00:00: 05:59 under the [place] 00 :00 skin every Medical morning Branch and evening for 30 days. nitroglycer 2022- Yes [id number] .4mg Place 1 Univers in 0.4 mg 05-24- tablet ity of sublingual 00:00: 05:59 under the [place] tablet 00 :00 tongue Medical every 5 Branch (five) minutes as needed for Chest pain for up to 30 days. insulin 2022- Yes [id number] 10U inject 10 Univers regular -24 06-17 Units ity of human 100 00:00: 05:59 under the [place] unit/mL 00 :00 skin 2 Medical injection (two) Branch times daily before breakfast and dinner for 30 days. ticagrelor 2022- Yes [id number] 90mg Take 1 Univers 90 mg 05-24 tablet by ity of tablet 00:00: 05:59 mouth in [place] 00 :00 the Medical morning Branch and 1 tablet in the evening. Do all this for 30 days. atorvastati 2022- Yes [id number] 80mg Take 2 Univers n 40 mg 05-24 tablets by ity o f tablet 00:00: 05:59 mouth [place] 00 :00 every Medical evening Branch for 30 days. pantoprazol 2023- Yes [id number] 40mg Take 1 Univers e 40 mg EC 05-08 tablet by ity of tablet 00:00: 05:59 mouth in [place] 00 :00 the Medical morning. Branch pantoprazol 2023- Yes [id number] 40mg Take 1 Univers e 40 mg EC 05-08 tablet by ity of tablet 00:00: 05:59 mouth in [place] 00 :00 the Medical morning. Branch pantoprazol 2023- Yes [id number] 40mg Take 1 Univers e 40 mg EC 05-08 tablet by ity of tablet 00:00: 05:59 mouth in [place] 00 :00 the Medical morning. Branch pantoprazol 2023- Yes [id number] 40mg Take 1 Univers e 40 mg EC 05-08 tablet by ity of tablet 00:00: 05:59 mouth in [place] 00 :00 the Medical morning. Branch pantoprazol 2023- Yes [id number] 40mg Take 1 Univers e 40 mg EC 05-08 tablet by ity of tablet 00:00: 05:59 mouth in [place] 00 :00 the Medical morning. Branch pantoprazol 2023- Yes [id number] 40mg Take 1 Univers e 40 mg EC 05-08 tablet by ity of tablet 00:00: 05:59 mouth in [place] 00 :00 the Medical morning. Branch pantoprazol 2023- Yes [id number] 40mg Take 1 Univers e 40 mg EC 05-08 tablet by ity of tablet 00:00: 05:59 mouth in [place] 00 :00 the Medical morning. Branch pantoprazol 2023- Yes [id number] 40mg Take 1 Univers e 40 mg EC 05-08 tablet by ity of tablet 00:00: 05:59 mouth in [place] 00 :00 the Medical morning. Branch pantoprazol 2023- Yes [id number] 40mg Take 1 Univers e 40 mg EC 05-08 tablet by ity of tablet 00:00: 05:59 mouth in [place] 00 :00 the Medical morning. Branch pantoprazol 2023- Yes [id number] 40mg Take 1 Univers e 40 mg EC 05-08 tablet by ity of tablet 00:00: 05:59 mouth in [place] 00 :00 the Medical morning. Branch pantoprazol 2023- Yes [id number] 40mg Take 1 Univers e 40 mg EC 05-08 tablet by ity of tablet 00:00: 05:59 mouth in [place] 00 :00 the Medical morning. Branch pantoprazol 2023- Yes [id number] 40mg Take 1 Univers e 40 mg EC 05-08 tablet by ity of tablet 00:00: 05:59 mouth in [place] 00 :00 the Medical morning. Branch pantoprazol 2023- Yes [id number] 40mg Take 1 Univers e 40 mg EC 05-08 tablet by ity of tablet 00:00: 05:59 mouth in [place] 00 :00 the Medical morning. Branch pantoprazol 2023- Yes [id number] 40mg Take 1 Univers e 40 mg EC 05-08 tablet by ity of tablet 00:00: 05:59 mouth in [place] 00 :00 the Medical morning. Branch pantoprazol 2023- Yes [id number] 40mg Take 1 Univers e 40 mg EC 05-08 tablet by ity of tablet 00:00: 05:59 mouth in [place] 00 :00 the Medical morning. Branch pantoprazol 2022- No [id number] 40mg Take 1 Univers e 40 mg EC 05-08 tablet by ity of tablet 00:00: 00:00 mouth in [place] 00 :00 the Medical morning. Branch atorvastati [...] Subcutaneo it y of human 70-30 22:30: [place], [place] (70-30 00 First dose Medical U-100 on [facility] INSULIN) 05/07/22 100 unit/mL at 1630, (70-30) Until injection Discontinu 10 Units ed, Routine insulin NPH 2021-05 No 10U 10 Units, Univers and regular 05-07 Subcutaneo i ty of human 70-30 22:30: 23:28 , [place], [place] (70-30 00 :33 First dose Medical U-100 on [facility] INSULIN) 05/07/22 100 unit/mL at 1630, (70-30) Until injection Discontinu 10 Units ed, Routine gabapentin 2021-05 Yes 100mg Take 100 Un lucila 100 mg 2-31 mg by ity of capsule 15:28: mouth in [place] 31 the Medical morning. Branch Thyroid, 2021-05 Yes 120mg Take 120 Univ ers Pork, 2-31 mg by ity of (ARMOUR 15:28: mouth [place] THYROID) 31 daily. Medical 120 mg Branch tablet gabapentin 2021-05 Yes 100mg Take 100 Un lucila 100 mg 2-31 mg by ity of capsule 15:28: mouth in [place] 31 the Medical morning. Branch Thyroid, 2021-05 Yes 120mg Take 120 Univ ers Pork, 2-31 mg by ity of (ARMOUR 15:28: mouth [place] THYROID) 31 daily. Medical 120 mg Branch tablet gabapentin 2021-05 Yes 100mg Take 100 Un lucila 100 mg 2-31 mg by ity of capsule 15:28: mouth in [place] [address] the Medical morning. Branch Thyroid, 2021-05 Yes 120mg Take 120 Univ ers Pork, 2-31 mg by ity of (ARMOUR 15:28: mouth [place] THYROID) 31 daily. Medical 120 mg Branch tablet gabapentin 2021-05 Yes 100mg Take 100 Un lucila 100 mg 2-31 mg by ity of capsule 15:28: mouth in [place] 31 the Medical morning. Branch Thyroid, 2021-05 Yes 120mg Take 120 Univ ers Pork, 2-31 mg by ity of (ARMOUR 15:28: mouth [place] THYROID) 31 daily. Medical 120 mg Branch tablet gabapentin 2021-05 Yes 100mg Take 100 Un lucila 100 mg 2-31 mg by ity of capsule 15:28: mouth in [place] [address] the Medical morning. Branch Thyroid, 2021-05 Yes 120mg Take 120 Univ ers Pork, 2-31 mg by ity of (ARMOUR 15:28: mouth [place] THYROID) 31 daily. Medical 120 mg Branch tablet gabapentin 2021-05 Yes 100mg Take 100 Un lucila 100 mg 2-31 mg by ity of capsule 15:28: mouth in [place] [address] the Medical morning. Branch Thyroid, 2021-05 Yes 120mg Take 120 Univ ers Pork, 2-31 mg by ity of (ARMOUR 15:28: mouth [place] THYROID) 31 daily. Medical 120 mg Branch tablet gabapentin 2021-05 Yes 100mg Take 100 Un lucila 100 mg 2-31 mg by ity of capsule 15:28: mouth in [place] [address] the Medical morning. Branch Thyroid, 2021-05 Yes 120mg Take 120 Univ ers Pork, 2-31 mg by ity of (ARMOUR 15:28: mouth [place] THYROID) 31 daily. Medical 120 mg Branch tablet gabapentin 2021-05 Yes 100mg Take 100 Un lucila 100 mg 2-31 mg by ity of capsule 15:28: mouth in [place] 31 the Medical morning. Branch Thyroid, 2021-05 Yes 120mg Take 120 Univ ers Pork, 2-31 mg by ity of (ARMOUR 15:28: mouth [place] THYROID) 31 daily. Medical 120 mg Branch tablet gabapentin 2021-05 Yes 100mg Take 100 Un lucila 100 mg 2-31 mg by ity of capsule 15:28: mouth in [place] [address] the Medical morning. Branch Thyroid, 2021-05 Yes 120mg Take 120 Univ ers Pork, 2-31 mg by ity of (ARMOUR 15:28: mouth [place] THYROID) 31 daily. Medical 120 mg Branch tablet gabapentin 2021-05 Yes 100mg Take 100 Un lucila 100 mg 2-31 mg by ity of capsule 15:28: mouth in [place] 31 the Medical morning. Branch Thyroid, 2021-05 Yes 120mg Take 120 Univ ers Pork, 2-31 mg by ity of (ARMOUR 15:28: mouth [place] THYROID) 31 daily. Medical 120 mg Branch tablet gabapentin 2021-05 Yes 100mg Take 100 Un lucila 100 mg 2-31 mg by ity of capsule 15:28: mouth in [place] 31 the Medical morning. Branch Thyroid, 2021-05 Yes 120mg Take 120 Univ ers Pork, 2-31 mg by ity of (ARMOUR 15:28: mouth [place] THYROID) 31 daily. Medical 120 mg Branch tablet gabapentin 2021-05 Yes 100mg Take 100 Un lucila 100 mg 2-31 mg by ity of capsule 15:28: mouth in [place] [address] the Medical morning. Branch Thyroid, 2021-05 Yes 120mg Take 120 Univ ers Pork, 2-31 mg by ity of (ARMOUR 15:28: mouth [place] THYROID) 31 daily. Medical 120 mg Branch tablet gabapentin 2021-05 Yes 100mg Take 100 Un lucila 100 mg 2-31 mg by ity of capsule 15:28: mouth in [place] [address] the Medical morning. Branch Thyroid, 2021-05 Yes 120mg Take 120 Univ ers Pork, 2-31 mg by ity of (ARMOUR 15:28: mouth [place] THYROID) 31 daily. Medical 120 mg Branch tablet gabapentin 2021-05 Yes 100mg Take 100 Un lucila 100 mg 2-31 mg by ity of capsule 15:28: mouth in [place] 31 the Medical morning. Branch Thyroid, 2021-05 Yes 120mg Take 120 Univ ers Pork, 2-31 mg by ity of (ARMOUR 15:28: mouth [place] THYROID) 31 daily. Medical 120 mg Branch tablet gabapentin 2021-05 Yes 100mg Take 100 Un lucila 100 mg 2-31 mg by ity of capsule 15:28: mouth in [place] 31 the Medical morning. Branch Thyroid, 2021-05 Yes 120mg Take 120 Univ ers Pork, 2-31 mg by ity of (ARMOUR 15:28: mouth [place] THYROID) 31 daily. Medical 120 mg Branch tablet Sliding 2021-05 Yes Subcutaneo Univ ers Scale 2- us, Q4H, ity of Insulin - 15:15: First dose [place] Lispro 00 (after Medical (HumaLOG) + last Branch Fsbg modificati Testing on) on 05/07/22 at 0915, Until Discontinu ed, Routine Sliding 2021-05- No Subcutaneo Uni vers Scale -07 05- us, Q4H, ity of Insulin - 15:15: 23:28 First dose [place] Lispro 00 :33 (after Medical (HumaLOG) + last Branch Fsbg modificati Testing on) on 05/07/22 at 0915, Until Discontinu ed, Routine insulin NPH 2021-05 Yes 20U 20 Units, U nivers (HUMULIN N) Subcutaneo it y of injection 15:00: , [place] 20 Units 00 QAM+HS, Medical First dose Branch (after last modificati on) on 05/07/22 at 0900, Until Discontinu ed, Routine insulin NPH 2021-05- No 20U 20 Units, Univers (HUMULIN N) 05-07 Subcutaneo i ty of injection 15:00: 23:28 , [place] 20 Units 00 :33 QAM+HS, Medical First dose Branch (after last modificati on) on 05/07/22 at 0900, Until Discontinu ed, Routine insulin 2021-05- No 10U 10 Units, Univ ers lispro 05-07 Subcutaneo ity of (human) 14:00: 18:[address] , [facility] (HumaLOG 00 :20 MEALS, Medical U-100) First dose Branch injection (after 10 Units last modificati on) on 05/07/22 at 0800, Until Discontinu ed, Routine insulin 2021-05- No 20U inject 20 Univ ers detemir 05-07 Units ity of U-100 100 13:35: 00:00 under the [place] unit/mL 50 :00 skin at Medical injection bedtime. Branch insulin 2021-05 No 20U inject 20 Univ ers detemir 12- Units ity of U-100 100 13:35: 00:00 under the [place] unit/mL 50 :00 skin at Medical injection bedtime. Branch magnesium 2021-05- No 4g 4 g, IV Univ ers sulfate in 05-07 Piggyback, it y of water 4 10:45: 12:23 at 25 [place] gram/50 mL 00 :00 mL/hr Medical (8 %) IV Administer Branc h Piggyback 4 over 120 g Minutes, ONCE, 1 dose, On 05/07/22 at 0445, Routine atorvastati 2021-05 Yes [id number] 80mg Take 2 Univers n 40 mg 2-31 tablets by ity of tablet 00:00: mouth [place] 00 every Medical evening. Branch insulin NPH 2021-05 Yes [id number] 10U inject 10 Univers and regular 2-31 Units ity of human 70-30 00:00: under the [place] 100 unit/mL 00 skin 2 Medica l (70-30) (two) Branch injection times daily before breakfast and dinner. insulin NPH 2021-05 Yes [id number] 20U inject 20 Univers 100 unit/mL 2-31 Units ity of injection 00:00: under the [place] 00 skin every Medical morning Branch and evening. atorvastati 2021-05 Yes [id number] 80mg Take 2 Univers n 40 mg 2-31 tablets by ity of tablet 00:00: mouth [place] 00 every Medical evening. Branch insulin NPH 2021-05 Yes [id number] 10U inject 10 [facility] and regular 2-31 Units ity of human 70-30 00:00: under the [place] 100 unit/mL 00 skin 2 Medica l (70-30) (two) Branch injection times daily before breakfast and dinner. insulin NPH 2021-05 Yes [id number] 20U inject 20 [facility] 100 unit/mL 2-31 Units ity of injection 00:00: under the [place] 00 skin every Medical morning Branch and evening. atorvastati 2021-05 Yes [id number] 80mg Take 2 Univers n 40 mg 2-31 tablets by ity of tablet 00:00: mouth [place] 00 every Medical evening. Branch insulin NPH 2021-05 Yes [id number] 10U inject 10 [facility] and regular 2-31 Units ity of human 70-30 00:00: under the [place] 100 unit/mL 00 skin 2 Medica l (70-30) (two) Branch injection times daily before breakfast and dinner. insulin NPH 2021-05 Yes [id number] 20U inject 20 [facility] 100 unit/mL 2-31 Units ity of injection 00:00: under the [place] 00 skin every Medical morning Branch and evening. atorvastati 2021-05 Yes [id number] 80mg Take 2 [facility] n 40 mg 2-31 tablets by ity of tablet 00:00: mouth [place] 00 every Medical evening. Branch insulin NPH 2021-05 Yes [id number] 10U inject 10 [facility] and regular 2-31 Units ity of human 70-30 00:00: under the [place] 100 unit/mL 00 skin 2 Medica l (70-30) (two) Branch injection times daily before breakfast and dinner. insulin NPH 2021-05 Yes [id number] 20U inject 20 [facility] 100 unit/mL 2-31 Units ity of injection 00:00: under the [place] 00 skin every Medical morning Branch and evening. atorvastati 2021-05 Yes [id number] 80mg Take 2 [facility] n 40 mg 2-31 tablets by ity of tablet 00:00: mouth [place] 00 every Medical evening. Branch insulin NPH 2021-05 Yes [id number] 10U inject 10 [facility] and regular 2-31 Units ity of human 70-30 00:00: under the [place] 100 unit/mL 00 skin 2 Medica l (70-30) (two) Branch injection times daily before breakfast and dinner. insulin NPH 2021-05 Yes [id number] 20U inject 20 [facility] 100 unit/mL 2-31 Units ity of injection 00:00: under the [place] 00 skin every Medical morning Branch and evening. atorvastati 2021-05 Yes [id number] 80mg Take 2 [facility] n 40 mg 2-31 tablets by ity of tablet 00:00: mouth [place] 00 every Medical evening. Branch insulin NPH 2021-05 Yes [id number] 10U inject 10 [facility] and regular 2-31 Units ity of human 70-30 00:00: under the [place] 100 unit/mL 00 skin 2 Medica l (70-30) (two) Branch injection times daily before breakfast and dinner. insulin NPH 2021-05 Yes [id number] 20U inject 20 [facility] 100 unit/mL 2-31 Units ity of injection 00:00: under the [place] 00 skin every Medical morning Branch and evening. atorvastati 2021-05 Yes [id number] 80mg Take 2 [facility] n 40 mg 2-31 tablets by ity of tablet 00:00: mouth [place] 00 every Medical evening. Branch insulin NPH 2021-05 Yes [id number] 10U inject 10 [facility] and regular 2-31 Units ity of human 70-30 00:00: under the [place] 100 unit/mL 00 skin 2 Medica l (70-30) (two) Branch injection times daily before breakfast and dinner. insulin NPH 2021-05 Yes [id number] 20U inject 20 [facility] 100 unit/mL 2-31 Units ity of injection 00:00: under the [place] 00 skin every Medical morning Branch and evening. atorvastati 2021-05 Yes [id number] 80mg Take 2 [facility] n 40 mg 2-31 tablets by ity of tablet 00:00: mouth [place] 00 every Medical evening. Branch insulin NPH 2021-05 Yes [id number] 10U inject 10 [facility] and regular 2-31 Units ity of human 70-30 00:00: under the [place] 100 unit/mL 00 skin 2 Medica l (70-30) (two) Branch injection times daily before breakfast and dinner. insulin NPH 2021-05 Yes [id number] 20U inject 20 [facility] 100 unit/mL 2-31 Units ity of injection 00:00: under the [place] 00 skin every Medical morning Branch and evening. atorvastati 2021-05 Yes [id number] 80mg Take 2 [facility] n 40 mg 2-31 tablets by ity of tablet 00:00: mouth [place] 00 every Medical evening. Branch insulin NPH 2021-05 Yes [id number] 10U inject 10 [facility] and regular 2-31 Units ity of human 70-30 00:00: under the [place] 100 unit/mL 00 skin 2 Medica l (70-30) (two) Branch injection times daily before breakfast and dinner. insulin NPH 2021-05 Yes [id number] 20U inject 20 [facility] 100 unit/mL 2-31 Units ity of injection 00:00: under the [place] 00 skin every Medical morning Branch and evening. atorvastati 2021-05 Yes [id number] 80mg Take 2 [facility] n 40 mg 2-31 tablets by ity of tablet 00:00: mouth [place] 00 every Medical evening. Branch insulin NPH 2021-05 Yes [id number] 10U inject 10 [facility] and regular 2-31 Units ity of human 70-30 00:00: under the [place] 100 unit/mL 00 skin 2 Medica l (70-30) (two) Branch injection times daily before breakfast and dinner. insulin NPH 2021-05 Yes [id number] 20U inject 20 [facility] 100 unit/mL 2-31 Units ity of injection 00:00: under the [place] 00 skin every Medical morning Branch and evening. atorvastati 2021-05 Yes [id number] 80mg Take 2 [facility] n 40 mg 2-31 tablets by ity of tablet 00:00: mouth [place] 00 every Medical evening. Branch insulin NPH 2021-05 Yes [id number] 10U inject 10 [facility] and regular 2-31 Units ity of human 70-30 00:00: under the [place] 100 unit/mL 00 skin 2 Medica l (70-30) (two) Branch injection times daily before breakfast and dinner. insulin NPH 2021-05 Yes [id number] 20U inject 20 [facility] 100 unit/mL 2-31 Units ity of injection 00:00: under the [place] 00 skin every Medical morning Branch and evening. atorvastati 2021-05 Yes [id number] 80mg Take 2 [facility] n 40 mg 2-31 tablets by ity of tablet 00:00: mouth [place] 00 every Medical evening. Branch insulin NPH 2021-05 Yes [id number] 10U inject 10 [facility] and regular 2-31 Units ity of human 70-30 00:00: under the [place] 100 unit/mL 00 skin 2 Medica l (70-30) (two) Branch injection times daily before breakfast and dinner. insulin NPH 2021-05 Yes [id number] 20U inject 20 [facility] 100 unit/mL 2-31 Units ity of injection 00:00: under the [place] 00 skin every Medical morning Branch and evening. atorvastati 2021-05 Yes [id number] 80mg Take 2 [facility] n 40 mg 2-31 tablets by ity of tablet 00:00: mouth [place] 00 every Medical evening. Branch insulin NPH 2021-05 Yes [id number] 10U inject 10 [facility] and regular 2-31 Units ity of human 70-30 00:00: under the [place] 100 unit/mL 00 skin 2 Medica l (70-30) (two) Branch injection times daily before breakfast and dinner. insulin NPH 2021-05 Yes [id number] 20U inject 20 [facility] 100 unit/mL 2-31 Units ity of injection 00:00: under the [place] 00 skin every Medical morning Branch and evening. atorvastati 2021-05 Yes [id number] 80mg Take 2 [facility] n 40 mg 2-31 tablets by ity of tablet 00:00: mouth [place] 00 every Medical evening. Branch insulin NPH 2021-05 Yes [id number] 10U inject 10 [facility] and regular 2-31 Units ity of human 70-30 00:00: under the [place] 100 unit/mL 00 skin 2 Medica l (70-30) (two) Branch injection times daily before breakfast and dinner. insulin NPH 2021-05 Yes [id number] 20U inject 20 [facility] 100 unit/mL 2-31 Units ity of injection 00:00: under the [place] 00 skin every Medical morning Branch and evening. atorvastati 2021-05 Yes [id number] 80mg Take 2 [facility] n 40 mg 2-31 tablets by ity of tablet 00:00: mouth [place] 00 every Medical evening. Branch insulin NPH 2021-05 Yes [id number] 10U inject 10 [facility] and regular 2-31 Units ity of human 70-30 00:00: under the [place] 100 unit/mL 00 skin 2 Medica l (70-30) (two) Branch injection times daily before breakfast and dinner. insulin NPH 2021-05 Yes [id number] 20U inject 20 [facility] 100 unit/mL 2-31 Units ity of injection 00:00: under the [place] 00 skin every Medical morning Branch and evening. metoprolol 2021-05- Yes [id number] 25mg Take 1 [facility] tartrate 25 05-08 tablet by it y of mg tablet 00:00: 05:59 mouth in [place] 00 :00 the Medical morning Branch and 1 tablet in the evening. nitroglycer 2021-05- Yes [id number] .4mg Place 1 [facility] in 0.4 mg 05-08 tablet ity of sublingual 00:00: 05:59 under the [place] tablet 00 :00 tongue Medical every 5 Branch (five) minutes as needed for Chest pain. metoprolol 2021-05- Yes [id number] 25mg Take 1 [facility] tartrate 25 05-08 tablet by it y of mg tablet 00:00: 05:59 mouth in [place] 00 :00 the Medical morning Branch and 1 tablet in the evening. nitroglycer 2021-05- Yes [id number] .4mg Place 1 [facility] in 0.4 mg 05-08 tablet ity of sublingual 00:00: 05:59 under the [place] tablet 00 :00 tongue Medical every 5 Branch (five) minutes as needed for Chest pain. metoprolol 2021-05- Yes [id number] 25mg Take 1 [facility] tartrate 25 05-08 tablet by it y of mg tablet 00:00: 05:59 mouth in [place] 00 :00 the Medical morning Branch and 1 tablet in the evening. nitroglycer 2021-05- Yes [id number] .4mg Place 1 [facility] in 0.4 mg 05-08 tablet ity of sublingual 00:00: 05:59 under the [place] tablet 00 :00 tongue Medical every 5 Branch (five) minutes as needed for Chest pain. metoprolol 2021-05- Yes [id number] 25mg Take 1 [facility] tartrate 25 05-08 tablet by it y of mg tablet 00:00: 05:59 mouth in [place] 00 :00 the Medical morning Branch and 1 tablet in the evening. nitroglycer 2021-05- Yes [id number] .4mg Place 1 [facility] in 0.4 mg 05-08 tablet ity of sublingual 00:00: 05:59 under the [place] tablet 00 :00 tongue Medical every 5 Branch (five) minutes as needed for Chest pain. metoprolol 2021-05- Yes [id number] 25mg Take 1 [facility] tartrate 25 05-08 tablet by it y of mg tablet 00:00: 05:59 mouth in [place] 00 :00 the Medical morning Branch and 1 tablet in the evening. nitroglycer 2021-05- Yes [id number] .4mg Place 1 [facility] in 0.4 mg 2-31 01-01 tablet ity of sublingual 00:00: 05:59 under the [place] tablet 00 :00 tongue Medical every 5 Branch (five) minutes as needed for Chest pain. metoprolol 2021-05- Yes [id number] 25mg Take 1 [facility] tartrate 25 05-08 tablet by it y of mg tablet 00:00: 05:59 mouth in [place] 00 :00 the Medical morning Branch and 1 tablet in the evening. nitroglycer 2021-05- Yes [id number] .4mg Place 1 [facility] in 0.4 mg 05-08 tablet ity of sublingual 00:00: 05:59 under the [place] tablet 00 :00 tongue Medical every 5 Branch (five) minutes as needed for Chest pain. metoprolol 2021-05- Yes [id number] 25mg Take 1 [facility] tartrate 25 05-08 tablet by it y of mg tablet 00:00: 05:59 mouth in [place] 00 :00 the Medical morning Branch and 1 tablet in the evening. nitroglycer 2021-05- Yes [id number] .4mg Place 1 [facility] in 0.4 mg 05-08 tablet ity of sublingual 00:00: 05:59 under the [place] tablet 00 :00 tongue Medical every 5 Branch (five) minutes as needed for Chest pain. metoprolol 2021-05- Yes [id number] 25mg Take 1 [facility] tartrate 25 05-08 tablet by it y of mg tablet 00:00: 05:59 mouth in [place] 00 :00 the Medical morning Branch and 1 tablet in the evening. nitroglycer 2021-05- Yes [id number] .4mg Place 1 [facility] in 0.4 mg 05-08 tablet ity of sublingual 00:00: 05:59 under the [place] tablet 00 :00 tongue Medical every 5 Branch (five) minutes as needed for Chest pain. metoprolol 2021-05- Yes [id number] 25mg Take 1 [facility] tartrate 25 05-08 tablet by it y of mg tablet 00:00: 05:59 mouth in [place] 00 :00 the Medical morning Branch and 1 tablet in the evening. nitroglycer 2021-05- Yes [id number] .4mg Place 1 [facility] in 0.4 mg 05-08 tablet ity of sublingual 00:00: 05:59 under the [place] tablet 00 :00 tongue Medical every 5 Branch (five) minutes as needed for Chest pain. metoprolol 2021-05- Yes [id number] 25mg Take 1 [facility] tartrate 25 05-08 tablet by it y of mg tablet 00:00: 05:59 mouth in [place] 00 :00 the Medical morning Branch and 1 tablet in the evening. nitroglycer 2021-05- Yes [id number] .4mg Place 1 [facility] in 0.4 mg 05-08 tablet ity of sublingual 00:00: 05:59 under the [place] tablet 00 :00 tongue Medical every 5 Branch (five) minutes as needed for Chest pain. metoprolol 2021-05- Yes [id number] 25mg Take 1 [facility] tartrate 25 05-08 tablet by it y of mg tablet 00:00: 05:59 mouth in [place] 00 :00 the Medical morning Branch and 1 tablet in the evening. nitroglycer 2021-05- Yes [id number] .4mg Place 1 [facility] in 0.4 mg 05-08 tablet ity of sublingual 00:00: 05:59 under the [place] tablet 00 :00 tongue Medical every 5 Branch (five) minutes as needed for Chest pain. metoprolol 2021-05- Yes [id number] 25mg Take 1 [facility] tartrate 25 05-08 tablet by it y of mg tablet 00:00: 05:59 mouth in [place] 00 :00 the Medical morning Branch and 1 tablet in the evening. nitroglycer 2021-05- Yes [id number] .4mg Place 1 [facility] in 0.4 mg 05-08 tablet ity of sublingual 00:00: 05:59 under the [place] tablet 00 :00 tongue Medical every 5 Branch (five) minutes as needed for Chest pain. metoprolol 2021-05- Yes [id number] 25mg Take 1 [facility] tartrate 25 05-08 tablet by it y of mg tablet 00:00: 05:59 mouth in [place] 00 :00 the Medical morning Branch and 1 tablet in the evening. nitroglycer 2021-05- Yes [id number] .4mg Place 1 [facility] in 0.4 mg 05-08 tablet ity of sublingual 00:00: 05:59 under the [place] tablet 00 :00 tongue Medical every 5 Branch (five) minutes as needed for Chest pain. metoprolol 2021-05- Yes [id number] 25mg Take 1 [facility] tartrate 25 05-08 tablet by it y of mg tablet 00:00: 05:59 mouth in [place] 00 :00 the Medical morning Branch and 1 tablet in the evening. nitroglycer 2021-05- Yes [id number] .4mg Place 1 [facility] in 0.4 mg 05-08 tablet ity of sublingual 00:00: 05:59 under the [place] tablet 00 :00 tongue Medical every 5 Branch (five) minutes as needed for Chest pain. metoprolol 2021-05- Yes [id number] 25mg Take 1 [facility] tartrate 25 05-08 tablet by it y of mg tablet 00:00: 05:59 mouth in [place] 00 :00 the Medical morning Branch and 1 tablet in the evening. nitroglycer 2021-05- Yes [id number] .4mg Place 1 [facility] in 0.4 mg 05-08 tablet ity of sublingual 00:00: 05:59 under the [place] tablet 00 :00 tongue Medical every 5 Branch (five) minutes as needed for Chest pain. metoprolol 2021-05- No [id number] 25mg Take 1 [facility] tartrate 25 05-24 tablet by it y of mg tablet 00:00: 00:00 mouth in [place] 00 :00 the Medical morning Branch and 1 tablet in the evening. nitroglycer 2021-05- No [id number] .4mg Place 1 [facility] in 0.4 mg 05-24 tablet ity of sublingual 00:00: 00:00 under the [place] tablet 00 :00 tongue Medical every 5 Branch (five) minutes as needed for Chest pain. atorvastati 2021-05- No [id number] 80mg Take 2 Univers n 40 mg 05-24 tablets by ity o f tablet 00:00: 00:00 mouth [place] 00 :00 every Medical evening. Branch insulin NPH 2021-05- No [id number] 10U inject 10 [facility] and regular 2-31 01-17 Units ity of human 70-30 00:00: 00:00 under the [place] 100 unit/mL 00 :00 skin 2 Medica l (70-30) (two) Branch injection times daily before breakfast and dinner. insulin NPH 2021-05- No [id number] 20U inject 20 [facility] 100 unit/mL 01-17 Units ity of injection 00:00: 00:00 under the [place] 00 :00 skin every Medical morning Branch and evening. insulin 2021-05- No 10U 10 Units, Univ ers lispro 05-07 Subcutaneo ity of (human) 23:00: 13:05 us, TID [place] (HumaLOG 00 :11 MEALS, Medical U-100) First [...] Starting [place] RY 02 :47 on Mon Medical injection 05/06/22 Branch for CATH at [...] mL D5W for 02 :47 on Mon [facility] Cardiac 05/06/22 Branch Cath at 1051, Until Mon05/06/22 at 1204, Routine, CV Intraproce dure lidocaine 2021-05- No ONCE INTRA U nivers 1% (PF) 05-06 PROCEDURE, ity o f (XYLOCAINE) 16:48: 18:04 Starting [place] injection 21 :47 on Mon [facility] 05/06/22 Branch at 1048, Until Mon05/06/22 at 1204, Routine, CV Intraproce dure midazolam 2021-05- No ONCE INTRA U nivers (VERSED) 05-06 PROCEDURE, ity of injection 16:48: 18:04 Starting [place] 09 :47 on Mon [facility] 05/06/22 Branch at 1048, Until Mon05/06/22 at 1204, Routine, CV Intraproce dure FENTanyl PF 2021-05- No ONCE INTRA Univers (SUBLIMAZE 05-06 PROCEDURE, it y of (PF)) 16:48: 18:04 Starting [place] injection 02 :47 on Mon [facility] 05/06/22 Branch at 1048, Until Mon05/06/22 at 1204, Routine, CV Intraproce dure magnesium 2021-05- No 4g 4 g, IV Univ ers sulfate in 05-07 Piggyback, it y of water 4 16:15: 00:02 at 25 [place] gram/50 mL 00 :00 mL/hr Medical (8 %) IV Administer Branc h Piggyback 4 over 120 g Minutes, ONCE, 1 dose, On Mon05/06/22 at 1015, Routine insulin 2021-05 No 5U 5 Units, Unive rs regular 2-30 12-30 Subcutaneo ity o f human 13:00: 12:35 us, ONCE, [place] (HUMULIN R) 00 :00 1 dose, On Me dical injection 5 Fri Branch Units 05/06/22 at 0700, Routine
Indicatio n for insulin: Hyperglyce yvan insulin 2021-05 No 10U 10 Units, Univ ers regular 2-30 12-30 Subcutaneo ity o f human 06:30: 05:57 us, ONCE, [place] (HUMULIN R) 00 :00 1 dose, On Me dical injection Fri Branch 10 Units 05/06/22 at 0030, Routine
Indicatio n for insulin: Hyperglyce yvan insulin 2021-05 No 20U 20 Units, Univ ers glargine 2-30 12-30 Subcutaneo ity of (LANTUS 06:00: 16:25 us, [facility], [place] U-100) 00 :46 First dose Medical injection on Fri Branch 20 Units 05/06/22 at 0000, Until Discontinu ed, Routine glucagon 2021-05 Yes 1mg 1 mg, Univers (GLUCAGEN 2-30 Intramuscu ity of DIAGNOSTIC 05:43: lar, PRN, [place] KIT) 43 Starting Medical injection 1 on [place] Branch 05/05/22 at 2343, Until Discontinu ed, MARCOS, Blood Glucose < or = 70 mg/dL and patient is unable to swallow or has mental changes. dextrose 50 2021-05 Yes 25mL 25 mL, Univ ers % in water 2-30 Slow IV ity of (D50W) 05:43: Push, PRN, [place] injection 43 Starting Medica l 25 mL on [place] Branch 05/05/22 at 2343, Until Discontinu ed, MARCOS, Blood Glucose < or = 70 mg/dL and patient is unable to swallow or has mental status changes. glucagon 2021-05 1mg 1 mg, Univers (GLUCAGEN 2-30 12-31 Intramuscu ity of DIAGNOSTIC 05:43: 23:28 lar, PRN, [place] KIT) 43 :33 Starting Medical injection 1 on [place] Branch mg 05/05/22 at 2343, Until 05/07/22 at 1728, MARCOS, Blood Glucose < or = 70 mg/dL and patient is unable to swallow or has mental changes. dextrose 50 2021-05 No 25mL 25 mL, Uni vers % in water 05-07 Slow IV ity o f (D50W) 05:43: 23:28 Push, PRN, [place] injection 43 :33 Starting Medica l 25 mL on [facility] Branch 05/05/22 at 2343, Until 05/07/22 at 1728, MARCOS, Blood Glucose < or = 70 mg/dL and patient is unable to swallow or has mental status changes. atorvastati 2021-05 No 40mg 40 mg, Uni vers n (LIPITOR) 05-07 Oral, QPM, i ty of tablet 40 23:00: 17:05 First dose [place] mg 00 :43 on [facility] 05/05/22 Branch at 1700, Until Discontinu ed, Routine metoprolol 2021-05 Yes 25mg 25 mg, Unive rs tartrate Oral, BID, ity o f (LOPRESSOR) 17:15: First dose [place] tablet 25 00 on [facility] 05/05/22 Branch at 1115, Until Discontinu ed, Routine metoprolol 2021-05 No 25mg 25 mg, Univ ers tartrate 05-07 Oral, BID, ity of (LOPRESSOR) 17:15: 23:28 First dose [place] tablet 25 00 :33 on [facility] 05/05/22 Branch at 1115, Until Discontinu ed, Routine pantoprazol 2021-05 Yes 40mg 40 mg, Univ ers e Oral, ity of (PROTONIX) 15:00: DAILY, [place] EC tablet 00 First dose Medi rogers 40 mg on [facility] 05/05/22 at 0900, Until Discontinu ed, Routine gabapentin 2021-05 Yes 100mg 100 mg, Uni vers (NEURONTIN) Oral, ity of capsule 100 15:00: DAILY, [place] mg 00 First dose Medical on [facility] 05/05/22 at 0900, Until Discontinu ed, Routine aspirin 2022-1 Yes 81mg 81 mg, Univers chewable Oral, ity of tablet 81 15:00: DAILY, [place] mg 00 First dose Medical on [facility] 05/05/22 at 0900, Until Discontinu ed, Routine pantoprazol 2021-05 No 40mg 40 mg, Uni vers e 05-07 Oral, ity of (PROTONIX) 15:00: 23:28 DAILY, [place] EC tablet 00 :33 First dose Medi rogers 40 mg on [facility] 05/05/22 at 0900, Until Discontinu ed, Routine gabapentin 2021-05- No 100mg 100 mg, Un [place] (NEURONTIN) 05-07 Oral, ity of capsule 100 15:00: 23:28 DAILY, [place] mg 00 :33 First dose Medical on [facility] 05/05/22 at 0900, Until Discontinu ed, Routine aspirin 2021-05 No 81mg 81 mg, Univers chewable 05-07 Oral, ity of tablet 81 15:00: 23:28 DAILY, [place] mg 00 :33 First dose Medical on [facility] 05/05/22 at 0900, Until Discontinu ed, Routine ticagrelor 2021-05 Yes 90mg 90 mg, Unive rs (BRILINTA) Oral, BID, ity of tablet 90 14:00: First dose [place] mg 00 on [facility] 05/05/22 Branch at 0800, Until Discontinu ed, Routine ticagrelor 2021-05 No 90mg 90 mg, Univ ers (BRILINTA) 05-07 Oral, BID, it y of tablet 90 14:00: 23:28 First dose [place] mg 00 :33 on [facility] 05/05/22 Branch at 0800, Until Discontinu ed, Routine Sliding 2021-05 No Subcutaneo Uni vers Scale 05-06 us, TID ity of Insulin - 14:00: 05:43 MEALS+HS, [place] Lispro 00 :17 First dose Medical (HumaLOG) + on [facility] 05/05/22 Testing at 0800, Until Discontinu [...] 05/05/22 at 0600, Until Discontinu ed thyroid 2021-05- No 120mg 120 mg, Unive rs (ARMOUR 05-07 Oral, ity of THYROID) 12:00: 23:28 QAM-0600, [place] tablet 120 00 :33 First dose Med ical mg on [place] Branch 05/05/22 at 0600, Until Discontinu ed dextrose 2021-05 Yes 250mL 250 mL, IV Un [place] 10% (D10W) Infusion, ity of bolus 04:04: PRN - SEE [place] infusion 20 INSTRUCTIO Medic al 250 mL [...] 2021-05 Yes 1mg 1 mg, Univers (GLUCAGEN 2- Intramuscu ity of DIAGNOSTIC 04:04: lar, PRN, [place] KIT) 15 Starting Medical injection 1 on Mon Branch mg 05/04/22 at 2204, Until Discontinu ed, MARCOS, Blood Glucose < or = 70 mg/dL and patient is unable to swallow or has mental changes. glucagon 2021-05- No 1mg 1 mg, Univers (GLUCAGEN 205-07 Intramuscu ity of DIAGNOSTIC 04:04: 23:28 lar, PRN, [place] KIT) 15 :33 Starting Medical injection 1 on Mon Branch mg 05/04/22 at 2204, Until 05/07/22 at 1728, MARCOS, Blood Glucose < or = 70 mg/dL and patient is unable to swallow or has mental changes. HEPARIN 2021-05- No 60U/kg 3,750 Univer s SODIUM -29 Units (60 ity of (PORCINE) 04:00: 11:21 Units/kg [place] 1,000 00 :00 ?62.5 kg), Medical UNIT/ML IV Push, Branch BOLUS ACS ONCE, 1 ORDER SET dose, On Mon05/04/22 at 2200, MARCOS heparin 2021-05- No 0U/h 0-2,150 Univer s 25,000 2-29 12-30 Units/hr ity of Units/250 03:47: 22:43 [...] therapy. Range, Dosing and Testing: &nbs p;FOR [facility], AND [facility] ONLY &nbs p; - aPTT < 35: [...] ed, Routine, Pain (scale 1-3) acetaminoph 2021-05 650mg 650 mg, U nivers en 05-07 [...] Discontinu ed, Routine insulin NPH 2021-05 Yes [id number] 20U inject 20 Univers 100 unit/mL 2-16 Units ity of injection 00:00: under the [place] 00 skin in [facility] morning and 16 Units under the skin every evening. insulin NPH 2021-05 Yes [id number] 20U inject 20 Univers 100 unit/mL 2-16 Units ity of injection 00:00: under the [place] 00 skin in [facility] morning and 16 Units under the skin every evening. insulin NPH 2021-05 Yes [id number] 20U inject 20 [facility] 100 unit/mL 2-16 Units ity of injection 00:00: under the [place] 00 skin in [facility] morning and 16 Units under the skin every evening. insulin NPH 2021-05 Yes [id number] 20U inject 20 [facility] 100 unit/mL 2-16 Units ity of injection 00:00: under the [place] 00 skin in [facility] morning and 16 Units under the skin every evening. insulin NPH 2021-05 Yes [id number] 20U inject 20 [facility] 100 unit/mL 2-16 Units ity of injection 00:00: under the [place] 00 skin in [facility] morning and 16 Units under the skin every evening. insulin NPH 2021-05 Yes [id number] 20U inject 20 [facility] 100 unit/mL 2-16 Units ity of injection 00:00: under the [place] 00 skin in [facility] morning and 16 Units under the skin every evening. insulin NPH 2021-05 Yes [id number] 20U inject 20 [facility] 100 unit/mL 2-16 Units ity of injection 00:00: under the [place] 00 skin in [facility] morning and 16 Units under the skin every evening. insulin NPH 2021-05 Yes [id number] 20U inject 20 [facility] 100 unit/mL 2-16 Units ity of injection 00:00: under the [place] 00 skin in [facility] morning and 16 Units under the skin every evening. insulin NPH 2021-05- No [id number] 20U inject 20 [facility] 100 unit/mL 2-16 12-31 Units ity of injection 00:00: 00:00 under the [place] 00 :00 skin in [facility] morning and 16 Units under the skin every evening. insulin NPH 2021-05- No [id number] 20U inject 20 Univers 100 unit/mL 2-16 12-31 Units ity of injection 00:00: 00:00 under [place] 00 :00 skin in [facility] morning and 16 Units under the skin every evening. insulin NPH 2021-05 Yes 16U 16 Units, U nivers (HUMULIN N) 2-15 Subcutaneo it y of injection 23:00: [place], QPM, [place] 16 Units 00 First dose Medic al on [facility] Branch 04/21/22 at 1700, Until Discontinu ed, Routine insulin 2021-05 Yes 10U 10 Units, Unive rs lispro 2-15 Subcutaneo ity of (human) 23:00: us, TID [place] (HumaLOG 00 MEALS, Medical U-100) First dose Branch injection (after 10 Units last modificati on) on [facility] 04/21/22 at 1700, Until Discontinu ed insulin NPH 2021-05 Yes 16U 16 Units, U nivers (HUMULIN N) 2-15 Subcutaneo it y of injection 23:00: [place], QPM, [place] 16 Units 00 First dose Medic al (after Branch last modificati on) on [place] 04/21/22 at 1700, Until Discontinu ed, Routine Sliding 2021-05 Yes Subcutaneo Univ ers Scale 2-15 us, Q4H, ity of Insulin - 18:00: First dose [place] Lispro 00 (after Medical (HumaLOG) + last Branch Fsbg modificati Testing on) on [place] 04/21/22 at 1200, Until Discontinu ed, Routine insulin NPH 2021-05 Yes 20U 20 Units, U nivers (HUMULIN N) 2-15 Subcutaneo it y of injection 15:00: us, DAILY, [place] 20 Units 00 First dose Medic al on [place] 04/21/22 at 0900, Until Discontinu ed, Routine insulin 2021-05 Yes 20U inject 20 Unive rs detemir 2-15 Units ity of U-100 100 14:13: under the [place] unit/mL 44 skin at Medical injection bedtime. Branch gabapentin 2021-05 Yes 100mg Take 100 Un [place]ila 100 mg 2-15 mg by ity of capsule 14:13: mouth in [place] 44 the Medical morning. Branch Thyroid, 2021-05 Yes 120mg Take 120 Univ ers Pork, 2-15 mg by ity of (ARMOUR 14:13: mouth [place] THYROID) 44 daily. Medical 120 mg Branch tablet insulin 2021-05 Yes 20U inject 20 Unive rs detemir 2-15 Units ity of U-100 100 14:13: under the [place] unit/mL 44 skin at Medical injection bedtime. Branch gabapentin 2021-05 Yes 100mg Take 100 Un [place] 100 mg 2-15 mg by ity of capsule 14:13: mouth in [place] 44 the Medical morning. Branch Thyroid, 2021-05 [...] by ity of capsule 14:13: mouth in [place] 44 the Medical morning. Branch Thyroid, 2021-05 [...] by ity of capsule 14:13: mouth in [place] 44 the Medical morning. Branch Thyroid, 2021-05 Yes 120mg Take 120 Univ ers Pork, 2-15 mg by ity of (ARMOUR 14:13: mouth [place] THYROID) 44 daily. Medical 120 mg Branch tablet insulin 2021-05 Yes 20U inject 20 Unive rs detemir 2-15 Units ity of U-100 100 14:13: under the [place] unit/mL 44 skin at Medical injection bedtime. Branch gabapentin 2021-05 Yes 100mg Take 100 Un [place] 100 mg 2-15 mg by ity of capsule 14:13: mouth in [place] 44 the Medical morning. Branch Thyroid, 2021-05 Yes 120mg Take 120 Univ ers Pork, 2-15 mg by ity of (ARMOUR 14:13: mouth [place] THYROID) 44 daily. Medical 120 mg Branch tablet insulin 2021-05 Yes 20U inject 20 Unive rs detemir 2-15 Units ity of U-100 100 14:13: under the [place] unit/mL 44 skin at Medical injection bedtime. Branch gabapentin 2022-1 Yes 100mg Take 100 Un [place] 100 mg 2-15 mg by ity of capsule 14:13: mouth in [place] 44 the Medical morning. Branch Thyroid, 2021-05 [...] by ity of capsule 14:13: mouth in [place] 44 the Medical morning. Branch Thyroid, 2021-05 [...] times daily with meals. insulin 2021-05 Yes [id number] 10U inject 10 U nivers lispro, 2-15 Units ity of human, 100 00:00: under the [place] unit/mL 00 skin 2 Medical injection (two) Branch times daily before breakfast and dinner. insulin NPH 2021-05 Yes [id number] 20U inject 20 [facility] 100 unit/mL 2-15 Units ity of injection 00:00: under the [place] 00 skin every Medical evening. Branch insulin 2021-05 Yes [id number] 10U inject 10 U nivers lispro, 2-15 Units ity of human, 100 00:00: under the [place] unit/mL 00 skin 2 Medical injection (two) Branch times daily before breakfast and dinner. insulin NPH 2021-05 Yes [id number] 20U inject 20 [facility] 100 unit/mL 2-15 Units ity of injection 00:00: under the [place] 00 skin every Medical evening. Branch insulin 2021-05 Yes [id number] 10U inject 10 U nivers lispro, 2-15 Units ity of human, 100 00:00: under the [place] unit/mL 00 skin 2 Medical injection (two) Branch times daily before breakfast and dinner. insulin NPH 2021-05 Yes [id number] 20U inject 20 Univers 100 unit/mL 2-15 Units ity of injection 00:00: under the [place] 00 skin every Medical evening. Branch insulin 2021-05 Yes [id number] 10U inject 10 U nivers lispro, 2-15 Units ity of human, 100 00:00: under the [place] unit/mL 00 skin 2 Medical injection (two) Branch times daily before breakfast and dinner. insulin NPH 2021-05 Yes [id number] 20U inject 20 [facility] 100 unit/mL 2-15 Units ity of injection 00:00: under the [place] 00 skin every Medical evening. Branch insulin 2021-05 Yes [id number] 10U inject 10 U nivers lispro, 2-15 Units ity of human, 100 00:00: under the [place] unit/mL 00 skin 2 Medical injection (two) Branch times daily before breakfast and dinner. insulin NPH 2021-05 Yes [id number] 20U inject 20 Univers 100 unit/mL 2-15 Units ity of injection 00:00: under the [place] 00 skin every Medical evening. Branch insulin 2021-05 Yes [id number] 10U inject 10 U nivers lispro, 2-15 Units ity of human, 100 00:00: under the [place] unit/mL 00 skin 2 Medical injection (two) Branch times daily before breakfast and dinner. insulin NPH 2021-05 Yes [id number] 20U inject 20 [facility] 100 unit/mL 2-15 Units ity of injection 00:00: under the [place] 00 skin every Medical evening. Branch insulin 2021-05 Yes [id number] 10U inject 10 U nivers lispro, 2-15 Units ity of human, 100 00:00: under the [place] unit/mL 00 skin 2 Medical injection (two) Branch times daily before breakfast and dinner. insulin NPH 2021-05 Yes [id number] 20U inject 20 [facility] 100 unit/mL 2-15 Units ity of injection 00:00: under the [place] 00 skin every Medical evening. Branch insulin 2021-05 Yes [id number] 10U inject 10 U nivers lispro, 2-15 Units ity of human, 100 00:00: under the [place] unit/mL 00 skin 2 Medical injection (two) Branch times daily before breakfast and dinner. insulin NPH 2021-05 Yes [id number] 20U inject 20 [facility] 100 unit/mL 2-15 Units ity of injection 00:00: under the [place] 00 skin every Medical evening. Branch aspirin 81 2021-05- No [id number] 81mg Take 1 Univers mg chewable 2-15 12-16 tablet by it y of tablet 00:00: 05:59 mouth in [place] 00 :00 the Medical morning. Branch aspirin 81 2021-05- No [id number] 81mg Take 1 Univers mg chewable 2-15 12-16 tablet by it y of tablet 00:00: 05:59 mouth in [place] 00 :00 the Medical morning. Branch aspirin 81 2021-05- No [id number] 81mg Take 1 Univers mg chewable 2-15 12-16 tablet by it y of tablet 00:00: 05:59 mouth in [place] 00 :00 the Medical morning. Branch aspirin 81 2021-05- No [id number] 81mg Take 1 Univers mg chewable 2-15 12-16 tablet by it y of tablet 00:00: 05:59 mouth in [place] 00 :00 the Medical morning. Branch aspirin 81 2021-05- No [id number] 81mg Take 1 Univers mg chewable 2-15 12-16 tablet by it y of tablet 00:00: 05:59 mouth in [place] 00 :00 the Medical morning. Branch aspirin 81 2021-05- No [id number] 81mg Take 1 Univers mg chewable 2-15 12-16 tablet by it y of tablet 00:00: 05:59 mouth in [place] 00 :00 the Medical morning. Branch aspirin 81 2021-05- No [id number] 81mg Take 1 Univers mg chewable 2-15 12-16 tablet by it y of tablet 00:00: 05:59 mouth in [place] 00 :00 the Medical morning. Branch aspirin 81 2021-05- No [id number] 81mg Take 1 Univers mg chewable 2-15 12-16 tablet by it y of tablet 00:00: 05:59 mouth in [place] 00 :00 the Medical morning. Branch aspirin 81 2021-05- No [id number] 81mg Take 1 Univers mg chewable 2-15 12-16 tablet by it y of tablet 00:00: 05:59 mouth in [place] 00 :00 the Medical morning. Branch aspirin 81 2021-05- No [id number] 81mg Take 1 Univers mg chewable 2-15 12-16 tablet by it y of tablet 00:00: 05:59 mouth in [place] 00 :00 the Medical morning. Branch aspirin 81 2021-05- No [id number] 81mg Take 1 Univers mg chewable 2-15 12-16 tablet by it y of tablet 00:00: 05:59 mouth in [place] 00 :00 the Medical morning. Branch aspirin 81 2021-2022- No [id number] 81mg Take 1 Univers mg chewable 2-15 12-16 tablet by it y of tablet 00:00: 05:59 mouth in [place] 00 :00 the Medical morning. Branch aspirin 81 2021-2022- No [id number] 81mg Take 1 Univers mg chewable 2-15 12-16 tablet by it y of tablet 00:00: 05:59 mouth in [place] 00 :00 the Medical morning. Branch aspirin 81 2021-05- No [id number] 81mg Take 1 Univers mg chewable 2-15 12-16 tablet by it y of tablet 00:00: 05:59 mouth in [place] 00 :00 the Medical morning. Branch aspirin 81 2021-2022- No [id number] 81mg Take 1 Univers mg chewable 2-15 12-16 tablet by it y of tablet 00:00: 05:59 mouth in [place] 00 :00 the Medical morning. Branch aspirin 81 2021-05- No [id number] 81mg Take 1 Univers mg chewable 2-15 12-16 tablet by it y of tablet 00:00: 05:59 mouth in [place] 00 :00 the Medical morning. Branch aspirin 81 2021-05- No [id number] 81mg Take 1 Univers mg chewable 2-15 12-16 tablet by it y of tablet 00:00: 05:59 mouth in [place] 00 :00 the Medical morning. Branch aspirin 81 2021-2022- No [id number] 81mg Take 1 Univers mg chewable 2-15 12-16 tablet by it y of tablet 00:00: 05:59 mouth in [place] 00 :00 the Medical morning. Branch aspirin 81 2021-05- No [id number] 81mg Take 1 Univers mg chewable 2-15 12-16 tablet by it y of tablet 00:00: 05:59 mouth in [place] 00 :00 the Medical morning. Branch aspirin 81 2021-05- No [id number] 81mg Take 1 Univers mg chewable 2-15 12-16 tablet by it y of tablet 00:00: 05:59 mouth in [place] 00 :00 the Medical morning. Branch aspirin 81 2021-05- No [id number] 81mg Take 1 Univers mg chewable 2-15 12-16 tablet by it y of tablet 00:00: 05:59 mouth in [place] 00 :00 the Medical morning. Branch aspirin 81 2021-05- No [id number] 81mg Take 1 Univers mg chewable 2-15 12-16 tablet by it y of tablet 00:00: 05:59 mouth in [place] 00 :00 the Medical morning. Branch aspirin 81 2021-05- No [id number] 81mg Take 1 Univers mg chewable 2-15 12-16 tablet by it y of tablet 00:00: 05:59 mouth in [place] 00 :00 the Medical morning. Branch aspirin 81 2021-05- No [id number] 81mg Take 1 Univers mg chewable 2-15 12-16 tablet by it y of tablet 00:00: 05:59 mouth in [place] 00 :00 the Medical morning. Branch aspirin 81 2021-05- No [id number] 81mg Take 1 Univers mg chewable 2-15 01-17 tablet by it y of tablet 00:00: 00:00 mouth in [place] 00 :00 the Medical morning. [place] insulin 2021-05- No [id number] 10U inject 10 Univers lispro, 2-15 12-31 Units ity of human, 100 00:00: 00:00 under the [place] unit/mL 00 :00 skin 2 Medical injection (two) Branch times daily before breakfast and dinner. insulin NPH 2021-05- No [id number] 20U inject 20 Univers 100 unit/mL 2-15 12-31 Units ity of injection 00:00: 00:00 under the [place] 00 :00 skin every Medical evening. [place] insulin 2021-05- No [id number] 10U inject 10 Univers lispro, 2-15 12-31 Units ity of human, 100 00:00: 00:00 under the [place] unit/mL 00 :00 skin 2 Medical injection (two) Branch times daily before breakfast and dinner. insulin NPH 2021-05- No [id number] 20U inject 20 Univers 100 unit/mL 2-15 12-31 Units ity of injection 00:00: 00:00 under the [place] 00 :00 skin every Medical evening. Branch insulin NPH 2021-05- No [id number] 16U inject 16 Univers 100 unit/mL 2-15 [...] at 1600, Until Discontinu ed, Routine Sliding 2021-05 No Subcutaneo Uni vers Scale 2-14 12-15 us, Q4H, ity of Insulin - 22:00: 15:27 First dose [place] Lispro 00 :11 (after Medical (HumaLOG) + last Branch Fsbg modificati Testing on) on Mon04/20/22 at 1600, Until Discontinu ed, Routine aspirin 2021-05 Yes 81mg 81 mg, Univers chewable 2-14 Oral, ity of tablet 81 15:00: DAILY, [place] mg 00 First dose Medical on Mon Branch 04/20/22 at 0900, Until Discontinu ed, Routine, CV Recovery to Floor aspirin 2021-05 Yes 81mg 81 mg, Univers chewable 2-14 Oral, ity of tablet 81 15:00: DAILY, [place] mg 00 First dose Medical on Mon Branch 04/20/22 at 0900, Until Discontinu ed, Routine, CV Recovery to Floor insulin 2021-05- No 29U 29 Units, Univ ers glargine 2-14 12-14 Subcutaneo ity of (LANTUS 15:00: 20:08 us, DAILY, [place] U-100) 00 :35 First dose Medical injection (after Branch 29 Units last modificati on) on Mon04/20/22 at 0900, Until Discontinu ed, Routine gemfibroziL 2021-05 No 600mg Take 600 Univers 600 mg 2-14 12-14 mg by ity of tablet 13:38: 00:00 mouth at [place] 30 :00 bedtime. Medical Branch gemfibroziL 2021-05- No 600mg Take 600 Univers 600 mg 2-14 12-14 mg by ity of tablet 13:38: 00:00 mouth at [place] 30 :00 bedtime. Medical Branch insulin 2021-05 [...] by ity of capsule 13:38: mouth in [place] 27 the Medical morning. Branch Thyroid, 2021-05 Yes 120mg Take 120 Univ ers Pork, 2-14 mg by ity of (ARMOUR 13:38: mouth [place] THYROID) 27 daily. Medical 120 mg Branch tablet ticagrelor 2021-05 Yes 90mg 90 mg, Unive rs (BRILINTA) 2-14 Oral, BID, ity of tablet 90 02:00: First dose [place] mg 00 on [facility] 04/19/22 Branch at 1999, Until Discontinu ed, Routine, CV Recovery to Floor ticagrelor 2021-05 Yes 90mg 90 mg, Unive rs (BRILINTA) 2-14 Oral, BID, ity of tablet 90 02:00: First dose [place] mg 00 on [facility] 04/19/22 Branch at 1999, Until Discontinu ed, Routine, CV Recovery to Floor ticagrelor 2021-05- No [id number] 90mg Take 1 Univers 90 mg 2-14 12-15 tablet by ity of tablet 00:00: 05:59 mouth in [place] 00 :00 the Medical morning Branch and 1 tablet in the evening. ticagrelor 2021-05- No [id number] 90mg Take 1 Univers 90 mg 2-14 12-15 tablet by ity of tablet 00:00: 05:59 mouth in [place] 00 :00 the Medical morning Branch and 1 tablet in the evening. ticagrelor 2021-05- No [id number] 90mg Take 1 Univers 90 mg 2-14 12-15 tablet by ity of tablet 00:00: 05:59 mouth in [place] 00 :00 the Medical morning Branch and 1 tablet in the evening. ticagrelor 2021-05- No [id number] 90mg Take 1 Univers 90 mg 2-14 12-15 tablet by ity of tablet 00:00: 05:59 mouth in [place] 00 :00 the Medical morning Branch and 1 tablet in the evening. ticagrelor 2021-05- No [id number] 90mg Take 1 Univers 90 mg 2-14 12-15 tablet by ity of tablet 00:00: 05:59 mouth in [place] 00 :00 the Medical morning Branch and 1 tablet in the evening. ticagrelor 2021-05- No [id number] 90mg Take 1 Univers 90 mg 2-14 12-15 tablet by ity of tablet 00:00: 05:59 mouth in [place] 00 :00 the Medical morning Branch and 1 tablet in the evening. ticagrelor 2021-05- No [id number] 90mg Take 1 Univers 90 mg 2-14 12-15 tablet by ity of tablet 00:00: 05:59 mouth in [place] 00 :00 the Medical morning Branch and 1 tablet in the evening. ticagrelor 2021-05- No [id number] 90mg Take 1 Univers 90 mg 2-14 12-15 tablet by ity of tablet 00:00: 05:59 mouth in [place] 00 :00 the Medical morning Branch and 1 tablet in the evening. ticagrelor 2021-05- No [id number] 90mg Take 1 Univers 90 mg 2-14 12-15 tablet by ity of tablet 00:00: 05:59 mouth in [place] 00 :00 the Medical morning Branch and 1 tablet in the evening. ticagrelor 2021-053- No [id number] 90mg Take 1 Univers 90 mg 2-14 12-15 tablet by ity of tablet 00:00: 05:59 mouth in [place] 00 :00 the Medical morning Branch and 1 tablet in the evening. ticagrelor 2021-053- No [id number] 90mg Take 1 Univers 90 mg 2-14 12-15 tablet by ity of tablet 00:00: 05:59 mouth in [place] 00 :00 the Medical morning Branch and 1 tablet in the evening. ticagrelor 2021-05- No [id number] 90mg Take 1 Univers 90 mg 2-14 12-15 tablet by ity of tablet 00:00: 05:59 mouth in [place] 00 :00 the Medical morning Branch and 1 tablet in the evening. ticagrelor 2021-05- No [id number] 90mg Take 1 Univers 90 mg 2-14 12-15 tablet by ity of tablet 00:00: 05:59 mouth in [place] 00 :00 the Medical morning Branch and 1 tablet in the evening. ticagrelor 2021-05- No [id number] 90mg Take 1 Univers 90 mg 2-14 12-15 tablet by ity of tablet 00:00: 05:59 mouth in [place] 00 :00 the Medical morning Branch and 1 tablet in the evening. ticagrelor 2021-05- No [id number] 90mg Take 1 Univers 90 mg 2-14 12-15 tablet by ity of tablet 00:00: 05:59 mouth in [place] 00 :00 the Medical morning Branch and 1 tablet in the evening. ticagrelor 2021-05- No [id number] 90mg Take 1 Univers 90 mg 2-14 12-15 tablet by ity of tablet 00:00: 05:59 mouth in [place] 00 :00 the Medical morning Branch and 1 tablet in the evening. atorvastati 2021-05- No [id number] 40mg Take 1 Univers n 40 mg 2-14 12-15 tablet by ity of tablet 00:00: 05:59 mouth [place] 00 :00 every Medical evening. Branch ticagrelor 2021-05- No [id number] 90mg Take 1 Univers 90 mg 2-14 12-15 tablet by ity of tablet 00:00: 05:59 mouth in [place] 00 :00 the Medical morning Branch and 1 tablet in the evening. atorvastati 2021-05- No [id number] 40mg Take 1 Univers n 40 mg 2-14 12-15 tablet by ity of tablet 00:00: 05:59 mouth [place] 00 :00 every Medical evening. Branch ticagrelor 2021-05- No [id number] 90mg Take 1 Univers 90 mg 2-14 12-15 tablet by ity of tablet 00:00: 05:59 mouth in [place] 00 :00 the Medical morning Branch and 1 tablet in the evening. atorvastati 2021-2022- No [id number] 40mg Take 1 Univers n 40 mg 2-14 12-15 tablet by ity of tablet 00:00: 05:59 mouth [place] 00 :00 every Medical evening. Branch ticagrelor 2021-2022- No [id number] 90mg Take 1 Univers 90 mg 2-14 12-15 tablet by ity of tablet 00:00: 05:59 mouth in [place] 00 :00 the Medical morning Branch and 1 tablet in the evening. atorvastati 2021-2022- No [id number] 40mg Take 1 Univers n 40 mg 2-14 12-15 tablet by ity of tablet 00:00: 05:59 mouth [place] 00 :00 every Medical evening. [place] ticagrelor 2021-05- No [id number] 90mg Take 1 Univers 90 mg 2-14 12-15 tablet by ity of tablet 00:00: 05:59 mouth in [place] 00 :00 the Medical morning Branch and 1 tablet in the evening. atorvastati 2021-05- No [id number] 40mg Take 1 Univers n 40 mg 2-14 12-15 tablet by ity of tablet 00:00: 05:59 mouth [place] 00 :00 every Medical evening. [place] ticagrelor 2021-05- No [id number] 90mg Take 1 Univers 90 mg 2-14 12-15 tablet by ity of tablet 00:00: 05:59 mouth in [place] 00 :00 the Medical morning Branch and 1 tablet in the evening. atorvastati 2021-2022- No [id number] 40mg Take 1 Univers n 40 mg 2-14 12-15 tablet by ity of tablet 00:00: 05:59 mouth [place] 00 :00 every Medical evening. Branch ticagrelor 2021-05- No [id number] 90mg Take 1 Univers 90 mg 2-14 12-15 tablet by ity of tablet 00:00: 05:59 mouth in [place] 00 :00 the Medical morning Branch and 1 tablet in the evening. atorvastati 2021-05- No [id number] 40mg Take 1 Univers n 40 mg 2-14 12-15 tablet by ity of tablet 00:00: 05:59 mouth [place] 00 :00 every Medical evening. Branch ticagrelor 2021-05- No [id number] 90mg Take 1 Univers 90 mg 2-14 12-15 tablet by ity of tablet 00:00: 05:59 mouth in [place] 00 :00 the Medical morning Branch and 1 tablet in the evening. atorvastati 2021-05- No [id number] 40mg Take 1 Univers n 40 mg 2-14 12-15 tablet by ity of tablet 00:00: 05:59 mouth [place] 00 :00 every Medical evening. Branch ticagrelor 2021-05- No [id number] 90mg Take 1 Univers 90 mg 2-14 12-15 tablet by ity of tablet 00:00: 05:59 mouth in [place] 00 :00 the Medical morning Branch and 1 tablet in the evening. atorvastati 2021-05- No [id number] 40mg Take 1 Univers n 40 mg 2-14 12-15 tablet by ity of tablet 00:00: 05:59 mouth [place] 00 :00 every Medical evening. Branch ticagrelor 2021-05- No [id number] 90mg Take 1 Univers 90 mg 2-14 01-17 tablet by ity of tablet 00:00: 00:00 mouth in [place] 00 :00 the Medical morning Branch and 1 tablet in the evening. atorvastati 2021-05- No [id number] 40mg Take 1 Univers n 40 mg 2-14 12-31 tablet by ity of tablet 00:00: 00:00 mouth [place] 00 :00 every Medical evening. Branch atorvastati 2021-05- No [id number] 40mg Take 1 Univers n 40 mg 2-14 12-31 tablet by ity of tablet 00:00: 00:00 mouth [place] 00 :00 every Medical evening. Branch iopamidol 2021-05- No ONCE INTRA U nivers (ISOVUE-370 06-20 PROCEDURE, i ty of ) injection 21:47: 21:54 [place] 01 :39 on Mon [facility] 04/19/22 Branch at 1547, Until Mon04/19/22 at 1554, Routine, CV Intraproce dure ticagrelor 2021-05- No ONCE INTRA Univers (BRILINTA) 06-20 PROCEDURE, it y of tablet 21:44: 21:54 Starting [place] 26 :39 on [facility] 04/19/22 Branch at 1544, Until [facility] 04/19/22 at 1554, Routine, CV Intraproce dure adenosine 6 2021-05- No ONCE INTRA Univers mg/1000 mL 06-20 PROCEDURE, it y of INTRACORONA 21:39: 21:54 Starting [place] R[place] 45 :39 on [facility] injection 04/19/22 Branch for CATH at 1539, LAB Until [facility] 04/19/22 at 1554, Routine, CV Intraproce dure NaCl 0.9% 2021-05- No CONTINUOUS U nivers (NS) bolus 06-20 PRN, ity of infusion 20:40: 20:40 [place] 06 :06 on [facility] 04/19/22 Branch at 1440, Until Discontinu ed, STAT, CV Intraproce dure nitroglycer 2021-05- No ONCE INTRA Univers in (TRIDIL) 06-20 PROCEDURE, i ty of 2 mg in 10 20:35: 21:54 [place] mL D5W for 30 :39 on [facility] Cardiac 04/19/22 Branch Cath at 1435, Until [facility] 04/19/22 at 1554, Routine, CV Intraproce dure heparin 2021-05- No ONCE INTRA Uni vers 1,000 06-20 PROCEDURE, ity of unit/mL 20:35: 21:54 Starting [place] injection 20 :39 on [facility] 04/19/22 Branch at 1435, Until [facility] 04/19/22 at 1554, Routine, CV Intraproce dure lidocaine 2021-05- No ONCE INTRA U nivers 1% (PF) 06-20 PROCEDURE, ity o f (XYLOCAINE) 20:28: 21:54 Starting [place] injection 20 :39 on [facility] 04/19/22 Branch at 1428, Until [facility] 04/19/22 at 1554, Routine, CV Intraproce dure FENTanyl PF 2021-05- No ONCE INTRA Univers (SUBLIMAZE 06-20 PROCEDURE, it y of (PF)) 20:21: 21:54 Starting [place] injection 27 :39 on [facility] 04/19/22 Branch at 1421, Until Mon04/19/22 at 1554, Routine, CV Intraproce dure midazolam 2021-05- No ONCE INTRA U nivers (VERSED) 06-20 PROCEDURE, ity of injection 20:21: 21:54 Starting [place] 16 :39 on [facility] 04/19/22 Branch at 1421, Until Mon04/19/22 at 1554, Routine, CV Intraproce dure dextrose 2021-05 Yes 250mL 250 mL, IV Un lucila 10% (D10W) 06-20 Infusion, ity of bolus 14:32: PRN - SEE [place] infusion 00 INSTRUCTIO Medic al 250 mL [...] 250 mL, IV Un lucila 10% (D10W) 06-20 Infusion, ity of bolus 14:32: PRN - SEE [place] infusion 00 INSTRUCTIO Medic al 250 mL [...] at room temperatur e. <b r> insulin 2021-05 No 10U 10 Units, Univ ers regular 06-20 Subcutaneo ity o f human 01:30: 00:55 us, ONCE, [place] (HUMULIN R) 00 :00 1 dose, On [place] injection [facility] 10 Units 04/18/22 at 1930, Routine
Indicatio n for insulin: Hyperglyce yvan KCL 2021-05 No 40meq 40 mEq, Univers (KLOR-CON 06-19 Oral, ity of M20) tablet 15:00: 18:00 ONCE, 1 [place] 40 mEq 00 :00 dose, On [facility] 04/18/22 at 0900, Routine magnesium 2021-05 No 2g 2 g, IV Univ ers sulfate in 06-19 Piggyback, it y of water 2 14:00: 15:30 Administer [place] gram/50 mL 00 :00 over 60 Medica l (4 %) Minutes, Branch infusion 2 ONCE, 1 g dose, On [facility] 04/18/22 at 0800, Routine melatonin 2021-05 Yes 3mg 3 mg, Univers (MELATIN) 2-12 Oral, QHS, ity of tablet 3 mg 03:00: First dose on [facility] 04/17/22 Branch at 2100, Until Discontinu ed, Routine melatonin 2021-05 Yes 3mg 3 mg, Univers (MELATIN) 2-12 Oral, QHS, ity of tablet 3 mg 03:00: First dose on [facility] 04/17/22 [place] at 2100, Until Discontinu ed, Routine hydrOXYzine 2021-05 Yes 10mg 10 mg, Univ ers (ATARAX) 2-11 Oral, ity of tablet 10 22:20: Q6HPRN, [place] mg 42 Starting Medical on [facility] 04/17/22 at 1620, Until Discontinu ed, Routine, Anxiety hydrOXYzine 2021-05 Yes 10mg 10 mg, Univ ers (ATARAX) 2-11 Oral, ity of tablet 10 22:20: Q6HPRN, [place] mg 42 Starting Medical on [facility] 04/17/22 at 1620, Until Discontinu ed, Routine, Anxiety LORazepam 2021-05- No .5mg 0.5 mg, Univ ers (ATIVAN) 06-18 Intramuscu ity of injection 18:00: 18:30 [place], ONCE, [place] 0.5 mg 00 :00 1 dose, On [facility] Branch 04/17/22 at 1200, Routine Sliding 2021-05 No Subcutaneo Uni vers Scale - 12-14 us, Q4H, ity of Insulin - 14:00: 20:08 First dose [place] Lispro 00 :35 (after Medical (HumaLOG) + last Branch Fsbg modificati Testing on) on [place] 04/17/22 at 0800, Until Discontinu ed, Routine magnesium 2021-05- No 4g 4 g, IV Univ ers sulfate in 06-18 Piggyback, it y of water 4 13:45: 15:43 at 25 [place] gram/50 mL 00 :00 mL/hr Medical (8 %) IV Administer Branc h Piggyback 4 over 120 g Minutes, ONCE, 1 dose, On [place] 04/17/22 at 0745, Routine Sliding 2021-05 No Subcutaneo Uni vers Scale 06-18 us, Q4H, ity of Insulin - 06:00: 10:50 First dose [place] Lispro 00 :56 (after Medical (HumaLOG) + last Branch Fsbg modificati Testing on) on [place] 04/17/22 at 0000, Until Discontinu ed, Routine atorvastati 2021-05 Yes 40mg 40 mg, Univ ers n (LIPITOR) 2-10 Oral, QPM, it y of tablet 40 23:00: First dose [place] mg 00 on [facility] 04/16/22 Branch at 1700, Until Discontinu ed, Routine atorvastati 2021-05 Yes 40mg 40 mg, Univ ers n (LIPITOR) 2-10 Oral, QPM, it y of tablet 40 23:00: First dose [place] mg 00 on [facility] 04/16/22 Branch at 1700, Until Discontinu ed, Routine Sliding 2021-05 No Subcutaneo Uni vers Scale 2- 12-11 us, TID ity of Insulin - 18:00: 02:41 MEALS+HS, [place] Lispro 00 :44 First dose Medical (HumaLOG) + on Sat Branch Fsbg 04/16/22 Testing at 1200, Until Discontinu ed, Routine gabapentin 2021-05 Yes 100mg 100 mg, Uni vers (NEURONTIN) 2-10 Oral, ity of capsule 100 15:00: DAILY, [place] mg 00 First dose Medical on Sat Branch 04/16/22 at 0900, Until Discontinu ed, Routine gabapentin 2021-05 Yes 100mg 100 mg, Uni vers (NEURONTIN) 2-10 Oral, ity of capsule 100 15:00: DAILY, [place] mg 00 First dose Medical on Sat Branch 04/16/22 at 0900, Until Discontinu ed, Routine insulin 2021-05- No 20U 20 Units, Univ ers glargine 2-10 12-14 Subcutaneo ity of (LANTUS 15:00: 03:33 us, DAILY, [place] U-100) 00 :51 First dose Medical injection on Sat Branch 20 Units 04/16/22 at 0900, Until Discontinu ed, Routine aspirin 2021-05- No 81mg 81 mg, Univers chewable 2-10 12-13 Oral, ity of tablet 81 15:00: 22:35 DAILY, [place] mg 00 :33 First dose Medical on Sat Branch 04/16/22 at 0900, Until Discontinu ed, Routine insulin 2021-05 Yes 10U 10 Units, Unive rs lispro 2-10 Subcutaneo ity of (human) 14:00: us, TID [place] (HumaLOG 00 MEALS, Medical U-100) First dose Branch injection on Sat 10 Units 04/16/22 at 0800, Until Discontinu ed insulin 2021-05- No 10U 10 Units, Univ [...] 2-10 Oral, ity of (TYLENOL) 08:23: Q6HPRN, [place] tablet 650 56 Starting Medic al mg on [facility] Branch 04/16/22 at 0223, Until Discontinu ed, Routine, Pain (scale 1-3) acetaminoph 2021-05 Yes 650mg 650 mg, Un lucila en 2-10 Oral, ity of (TYLENOL) 08:23: Q6HPRN, [place] tablet 650 56 Starting Medic al mg on [facility] Branch 04/16/22 at 0223, Until Discontinu ed, Routine, Pain (scale 1-3) iopamidol 2021-05- No [id number] 80mL 80 mL, U nivers (ISOVUE 2-10 [...] dose, On 04/16/22 at 0000, MARCOS heparin 2021-1 2021- No 0U/h 0-2,150 Univer s 25,000 2-10 [...] therapy. Range, Dosing and Testing: &nbs p;FOR [facility] ONLY &nbs p; - aPTT < 35: [...] 2021-05- No 3000U FOR Univers (1,000 2-10 - REBOLUSING ity of unit/mL, 10 05:51: 23:28 [...] by ity of tablet 05:07: mouth at [place] 08 bedtime. Medical Branch insulin 2021-05 Yes 20U inject 20 Unive rs detemir 2-10 Units ity of U-100 100 05:07: under the [place] unit/mL 08 skin at Medical injection bedtime. Branch gabapentin 2021-05 Yes 100mg Take 100 Un lucila 100 mg 2-10 mg by ity of capsule 05:07: mouth in [place] 08 the Medical morning. Branch Thyroid, 2021-05 Yes 120mg Take 120 Univ ers Pork, 2-10 mg by ity of (ARMOUR 05:07: mouth [place] THYROID) 08 daily. Medical 120 mg Branch tablet aspirin 2021-05- 325mg 325 mg, Unive rs tablet 325 2-10 12-10 Oral, ONCE it y of mg 04:30: 04:30 NOW, 1 [place] 00 :00 dose, On Medical Fri Branch 04/15/22 at 2230, MARCSO acetaminoph 2021-05 Yes [id number] 1{tbl} Take 1 [...] Subcutaneo ity of (human) 17:00: us, TID [place] (HumaLOG 00 MEALS, Medical U-100) First dose [...] by ity of tablet 15:53: mouth at [place] 23 bedtime. Medical Branch insulin 2021-05 Yes [...] mg by ity of (ARMOUR 15:53: mouth [place] THYROID) 23 daily. Medical 120 mg Branch tablet insulin 2021-05 Yes 10U inject 10 Unive rs aspart 1-02 Units ity of RAPID 100 15:53: under the [place] unit/mL 23 skin 3 Medical injection (three) Branch times daily with meals. gemfibroziL 2021-05 Yes 600mg Take 600 U nivers 600 mg 1-02 mg by ity of tablet 15:53: mouth at [place] [id number] bedtime. Medical Branch insulin 2021-05 Yes 30U inject 30 Unive rs detemir 1-02 Units ity of U-100 100 15:53: under the [place] unit/mL 23 skin at Medical injection bedtime. Branch gabapentin 2021-05 Yes 100mg Take 100 Un lucila 100 mg 1-02 mg by ity of capsule 15:53: mouth in [place] 23 the Medical morning. Branch Thyroid, 2021-05 Yes 120mg Take 120 Univ ers Pork, 1-02 mg by ity of (ARMOUR 15:53: mouth [place] THYROID) 23 daily. Medical 120 mg Branch tablet lisinopriL 2021-05- No 20mg Take 20 mg Univers 20 mg 05-09 by mouth ity of tablet 12:42: 00:00 in the [place] 38 :00 morning. Medical Branch Sliding 2021-05 Yes Subcutaneo Univ ers Scale 1-02 us, TID ity of Insulin - 03:15: MEALS+HS, [place] Lispro 00 First dose Medical (HumaLOG) + (after Branch Fsbg last Testing modificati on) on Mon03/08/22 at 2215, Until Discontinu ed, Routine insulin 2021-05 Yes 20U 20 Units, Unive rs glargine -02 Subcutaneo ity o f (LANTUS 02:00: us, [facility], [place] U-100) 00 First dose Medical injection on Mon Branch 20 Units 03/08/22 at 2100, Until Discontinu ed, Routine insulin 2021-05 Yes 20U 20 Units, Unive rs glargine -02 Subcutaneo ity o f (LANTUS 02:00: us, [facility], [place] U-100) 00 First dose Medical injection on Tue Branch 20 Units 03/08/22 at 2100, Until Discontinu ed, Routine aspirin 2021-05- No [id number] 325mg Take 1 U nivers E.C. 325 mg 05-09 tablet by it y of EC tablet 00:00: 05:59 mouth in [place] 00 :00 the Medical morning Branch and 1 tablet in the evening. Take with meals. Do all this for 26 days. aspirin 2021-05- No [id number] 325mg Take 1 U nivers E.C. 325 mg 05-09 tablet by it y of EC tablet 00:00: 05:59 mouth in [place] 00 :00 the Medical morning Branch and 1 tablet in the evening. Take with meals. Do all this for 26 days. aspirin 2021-05- No [id number] 325mg Take 1 U nivers E.C. 325 mg 05-09 tablet by it y of EC tablet 00:00: 05:59 mouth in [place] 00 :00 the Medical morning Branch and 1 tablet in the evening. Take with meals. Do all this for 26 days. aspirin 2021-05- No [id number] 325mg Take 1 U nivers E.C. 325 mg 05-09 tablet by it y of EC tablet 00:00: 05:59 mouth in [place] 00 :00 the Medical morning Branch and 1 tablet in the evening. Take with meals. Do all this for 26 days. HYDROcodone 2021-05- No [id number] 1{tbl} Take 1 U nivers -acetaminop -02 11-10 tablet by it y of hen 5-325 00:00: 05:59 mouth [place] mg tablet 00 :00 every 8 Medical (eight) Branch hours as needed for Pain (scale 4-6) for up to 7 days. Indication s: acute pain HYDROcodone 2021-05- No 4647 1{tbl} Take 1 U nivers -acetaminop 1-02 11-10 tablet by it y of hen 5-325 00:00: 05:59 mouth [place] mg tablet 00 :00 every 8 Medical (eight) Branch hours as needed for Pain (scale 4-6) for up to 7 days. Indication s: acute pain HYDROcodone 2021-05 Yes 1{tbl} 1 tablet, Univers -acetaminop 05-08 Oral, ity of hen (NORCO 18:28: Q6HPRN, [place] 5) 5-325 mg 34 Starting Medi rogers tablet 1 on tablet 03/08/22 at 1328, Until Discontinu ed, Routine, Pain (scale 4-6) HYDROcodone 2021-05 Yes 1{tbl} 1 tablet, Univers -acetaminop 05-08 Oral, ity of hen (NORCO 18:28: Q6HPRN, [place] 5) 5-325 mg 34 Starting Medi rogers tablet 1 on Mon tablet 03/08/22 at 1328, Until Discontinu ed, Routine, Pain (scale 4-6) insulin 2021-05- No 10U 10 Units, Univ ers lispro 05-08 Subcutaneo ity of (human) 18:15: 17:36 us, ONCE, [place] (HumaLOG 00 :00 1 dose, On Medic al U-100) [facility] injection 03/08/22 at 10 Units 1315, Routine thyroid 2021-05 Yes 120mg 120 mg, Univer s (ARMOUR 05-08 Oral, ity of THYROID) 11:00: QAM-0600, [place] tablet 120 00 First dose Med ical mg on [facility] 03/08/22 at 0600, Until Discontinu ed thyroid 2021-05 Yes 120mg 120 mg, Univer s (ARMOUR 05-08 Oral, ity of THYROID) 11:00: QAM-0600, [place] tablet 120 00 First dose Med ical mg on [facility] 03/08/22 at 0600, Until Discontinu ed ketorolac 2021-05- No 15mg 15 mg, Unive rs (TORADOL) 05-08 Slow IV ity of injection 02:30: 02:19 Push, [place] 15 mg 00 :00 ONCE, 1 Medical dose, On Branch Mon03/07/22 at 2130, Routine gemfibroziL 2021-05 Yes 600mg 600 mg, Un lucila (LOPID) 05-08 Oral, QHS, ity of tablet 600 02:00: First dose [place] mg 00 on [facility] 03/07/22 Branch at 2100, Until Discontinu ed, Routine gemfibroziL 2021-05 Yes 600mg 600 mg, Un lucila (LOPID) 1-01 Oral, QHS, ity of tablet 600 02:00: First dose [place] mg 00 on [facility] 03/07/22 Branch at 2100, Until Discontinu ed, Routine ceFAZolin 2021-05 No 1g 1 g, IV Univ ers (ANCEF) 1 g 03-07 Piggyback, i ty of in NaCl 23:00: 23:34 ONCE, 1 [place] 0.9% (NS) 00 :00 dose, On Medica l 50 mL [facility] MINI-BAG 03/07/22 at 1800, Administer over 30 Minutes, 50 mL
Reas on for Anti-Infec tive: Surgical Prophylaxi s
Surgi rogers Prophylaxi s: Orthopaedi c
Durat ion of therapy: within 24 hours of surgery enoxaparin 2021-05 Yes 40mg 40 mg, Unive rs (LOVENOX) 0-31 Subcutaneo ity of injection 22:00: us, DAILY, [place] 40 mg 00 First dose Medical on [facility] 03/07/22 at 1700, Until Discontinu ed, Routine enoxaparin 2021-05 Yes 40mg 40 mg, Unive rs (LOVENOX) 0-31 Subcutaneo ity of injection 22:00: us, DAILY, [place] 40 mg 00 First dose Medical on [facility] 03/07/22 at 1700, Until Discontinu ed, Routine aspirin 2021-05 No 325mg 325 mg, Unive rs E.C. 04-04 Oral, BID ity of (ECOTRIN) 22:00: 22:59 MEALS, 56 [place] tablet 325 00 :00 doses, Medical mg First dose Branch on Mon03/07/22 at 1700, Last dose on Mon04/04/22 at 0800, Routine aspirin 2021-05 No 325mg 325 mg, Unive rs E.C. 04-04 [...] 2021-05- No IV Push, Un lucila (BRIDION) 003-07 ONCE INTRA ity of injection 17:38: 17:55 PROCEDURE, [place] 00 :24 Starting Medical on Mon03/07/22 at 1238, Until Mon03/07/22 at 1255, Routine, Intra-op morpHINE (2021-05 Yes 2mg 2 mg, Slow Univers mg/mL) 0-31 IV Push, ity of injection 2 17:14: Q4HPRN, [place] mg 02 Starting Medical on Mon03/07/22 at 1214, Until Discontinu ed, Routine, For pain unrelieved by oral medication s, or if patient is unable to tolerate oral pain medication . morpHINE (2 2021-05 Yes 2mg 2 mg, Slow Univers mg/mL) 0-31 IV Push, ity of injection 2 17:14: Q4HPRN, [place] mg 02 Starting Medical on Mon03/07/22 at 1214, Until Discontinu ed, Routine, For pain unrelieved by oral medication s, or if patient is unable to tolerate oral pain medication . ondansetron 2021-05 Yes 4mg 4 mg, Unive rs (ZOFRAN-ODT 0-31 Oral, ity of ) 17:11: Q8HPRN, [place] disintegrat 32 Starting Medi rogers ing tablet on Mon Branch 4 mg 03/07/22 at 1211, Until Discontinu ed, Routine, Nausea and Vomiting (N/V) ondansetron 2021-05 Yes 4mg 4 mg, Unive rs (ZOFRAN-ODT 0-31 Oral, ity of ) 17:11: Q8HPRN, [place] disintegrat 32 Starting Medi rogers ing tablet on Mon Branch 4 mg 03/07/22 at 1211, Until Discontinu ed, Routine, Nausea and Vomiting (N/V) propofoL IV 2021-05- No IV Unive rs infusion 0-07 03- Infusion, ity o f 16:57: 17:55 CONTINUOUS [place] 00 :24 PRN, Medical Starting Branch on Mon03/07/22 at 1157, Until Mon03/07/22 at 1255, Routine, Intra-op acetaminoph 2021-05- No IV Unive rs en ADULT 0-03-07 Infusion, ity o f (OFIRMEV) 16:57: 17:55 Administer [place] injection 00 :24 over 15 Medical Minutes, Branch ONCE INTRA PROCEDURE, Starting on Mon03/07/22 at 1157, Until Mon03/07/22 at 1255, Routine, Intra-op PHENYLephri 2021-05- No Slow IV Un lucila ne 1000 003-07 Push, ONCE ity o f mcg/10 mL 16:52: 17:55 INTRA [place] in 0.9% 00 :24 PROCEDURE, Medica l NaCl Starting Branch syringe on Mon03/07/22 at 1152, Until Mon03/07/22 at 1255, Routine, Intra-op ondansetron 2021-05- No Slow IV Un lucila (ZOFRAN 0-07 03- Push, ONCE ity o f (PF)) 16:05: [...] mouth ity of tablet 15:01: in the [place] [id number] morning. Medical Branch gabapentin 2021-05 Yes 100mg Take 100 Un lucila 100 mg 0-31 mg by ity of capsule 15:01: mouth in [place] 50 the Medical morning. Branch Thyroid, 2021-05 [...] by ity of capsule 15:01: mouth in [place] 50 the Medical morning. Branch Thyroid, 2021-05 Yes 120mg Take 120 Univ ers Pork, 0-31 mg by ity of (ARMOUR 15:01: mouth [place] THYROID) 50 daily. Medical 120 mg Branch tablet ceFAZolin 2021-05- No Slow IV Univ ers (ANCEF) 003-07 Push, ONCE ity o f injection 14:50: 17:55 INTRA [place] 00 :24 PROCEDURE, Medical Starting Branch on Mon03/07/22 at 0950, Until Mon03/07/22 at 1255, MARCOS, Intra-op rocuronium 2021-05- No IV Push, Un lucila (ZEMURON) 03-07 ONCE INTRA ity of injection 14:49: 17:55 PROCEDURE, [place] 00 :24 Starting Medical on Mon [place] 03/07/22 at 0949, Until Mon03/07/22 at 1255, Routine, Intra-op propofoL IV 2021-05- No IV Unive rs infusion 03-07 Infusion, ity o f 14:47: 17:55 ONCE INTRA [place] 00 :24 PROCEDURE, Medical Starting Branch on Mon03/07/22 at 0947, Until Mon03/07/22 at 1255, Routine, Intra-op lidocaine [...] injection 00 :24 Starting Medica l on [facility] 03/07/22 at 0947, Until Mon03/07/22 at 1255, Routine, Intra-op midazolam 2021-05- No IV Push, Uni vers (VERSED) 003-07 ONCE INTRA ity of injection 14:41: 17:55 PROCEDURE, [place] 00 :24 Starting Medical on Mon Branch 03/07/22 at 0941, Until Mon03/07/22 at 1255, Routine, Intra-op lactated 2021-05 No IV Univers ringers IV 003-07 Infusion, [...] Branch CONTINUOUS , Starting on Mon03/07/22 at 0900, Until Discontinu ed, Routine NaCl 0.45% 2021-05 Yes 1000mL at 100 Uni vers (1/2NS) IV 0-31 mL/hr, ity of infusion 14:00: 1,000 mL, [place] 1,000 mL 00 IV Medical Infusion, Branch CONTINUOUS , Starting on Mon03/07/22 at 0900, Until Discontinu ed, Routine lisinopriL 2021-05 No 5mg 5 mg, Unive rs (PRINIVIL,Z 03-08 Oral, ity of ESTRIL) 14:00: 13:39 DAILY, [place] tablet 5 mg 00 :00 First dose Me dical on [facility] 03/07/22 at 0900, Until Discontinu ed, Routine KCL 2021-05- No 20meq 20 mEq, Univers (KLOR-CON 03-07 Oral, ity of M20) tablet 13:45: 13:06 ONCE, 1 [place] 20 mEq 00 :00 dose, On Medical [facility] 03/07/22 at 0845, Routine magnesium 2021-05 Yes 400mg 400 mg, Univ ers oxide Oral, BID, ity of (MAG-OX 13:00: First dose [place] 400) tablet 00 on [facility] Medica l 400 mg 03/07/22 Branch at 0800, Until Discontinu ed, Routine docusate 2021-05 Yes 100mg 100 mg, Unive rs (COLACE) 0-31 Oral, BID, ity o f capsule 100 13:00: First dose [place] mg 00 on [facility] 03/07/22 Branch at 0800, Until Discontinu ed, Routine Sliding 2021-05 Yes Subcutaneo Univ ers Scale 0-31 us, TID ity of Insulin - 13:00: MEALS, [place] Lispro 00 First dose Medical (HumaLOG) + on [facility] Fsbg 03/07/22 Testing at 0800, Until Discontinu ed, Routine magnesium 2021-05 Yes 400mg 400 mg, Univ ers oxide 0-31 Oral, BID, ity of (MAG-OX 13:00: First dose [place] 400) tablet 00 on [facility] Medica l 400 mg 03/07/22 Branch at 0800, Until Discontinu ed, Routine docusate 2021-05 Yes 100mg 100 mg, Unive rs (COLACE) 0-31 Oral, BID, ity o f capsule 100 13:00: First dose [place] mg 00 on [facility] 03/07/22 Branch at 0800, Until Discontinu ed, Routine Sliding 2021-05 Subcutaneo Uni vers Scale 0-31 11-02 us, TID ity of Insulin - 13:00: 03:13 MEALS, [place] Lispro 00 :07 First dose Medical (HumaLOG) + on [facility] Fsbg 03/07/22 Testing at 0800, Until Discontinu ed, Routine insulin 2021-05 Yes 10U inject 10 Unive rs aspart 0-31 Units ity of RAPID 100 12:15: under the [place] unit/mL 20 skin 3 Medical injection (three) Branch times daily with meals. gemfibroziL 2021-05 Yes 600mg Take 600 U nivers 600 mg 0-31 mg by ity of tablet 12:15: mouth at [place] 20 bedtime. Medical Branch insulin 2021-05 Yes 10U inject 10 Unive rs aspart 0-31 Units ity of RAPID 100 12:15: under the [place] unit/mL 20 skin 3 Medical injection (three) Branch times daily with meals. gemfibroziL 2021-05 Yes 600mg Take 600 U nivers 600 mg 0-31 mg by ity of tablet 12:15: mouth at [place] 20 bedtime. Medical Branch levothyroxi 2021-05 50ug 50 mcg, Un lucila ne 0-31 10-31 Oral, ity of (SYNTHROID) 11:00: 23:00 QAM-0600, [place] tablet 50 00 :42 First dose Medi rogers mcg on [facility] 03/07/22 at 0600, Until Discontinu ed, Routine morpHINE (2021-05 Yes 4mg 4 mg, Slow Univers mg/mL) 0-31 IV Push, ity of injection 4 07:23: Q4HPRN, [place] mg 08 Starting Medical on [facility] 03/07/22 at 0223, Until Discontinu ed, Routine, Pain (scale 7-10) morpHINE (2021-05 Yes 4mg 4 mg, Slow Univers mg/mL) 0-31 IV Push, ity of injection 4 07:23: Q4HPRN, [place] mg 08 Starting Medical on [facility] 03/07/22 at 0223, Until Discontinu ed, Routine, [...] First dose [place] mg 00 on [facility] 03/07/22 Branch at 0115, Until Discontinu ed, Routine gabapentin 2021-05 Yes 100mg 100 mg, Uni vers (NEURONTIN) 0-31 Oral, TID, it y of capsule 100 06:15: First dose [place] mg 00 on [facility] 03/07/22 Branch at 0115, Until Discontinu ed, Routine ondansetron 2021-05 Yes 4mg 4 mg, Slow Univers (ZOFRAN 0-31 IV Push, ity of (PF)) 06:10: Q6HPRN, [place] injection 4 22 Starting Medi rogers mg on Mon Branch 03/07/22 at 0110, Until Discontinu ed, Routine, Nausea and Vomiting (N/V) ondansetron 2021-05 Yes 4mg 4 mg, Slow Univers (ZOFRAN 0-31 IV Push, ity of (PF)) 06:10: Q6HPRN, [place] injection 4 22 Starting Medi rogers mg on Mon Branch 03/07/22 at 0110, Until Discontinu ed, [...] 55 Starting Medica l 25 mL on Mon Branch 03/07/22 at 0108, Until Discontinu ed, MARCOS, Blood Glucose < or = 70 mg/dL and patient is unable to swallow or has mental status changes. glucagon 2021-05 Yes 1mg 1 mg, Univers (GLUCAGEN 0-31 Intramuscu ity of DIAGNOSTIC 06:08: lar, PRN, [place] KIT) 55 Starting Medical injection 1 on [facility] Branch mg 03/07/22 at 0108, Until Discontinu ed, MARCOS, Blood Glucose < or = 70 mg/dL and patient is unable to swallow or has mental changes. dextrose 50 2021-05 Yes 25mL 25 mL, Univ ers % in water 0-31 Slow IV ity of (D50W) 06:08: Push, PRN, [place] injection 55 Starting Medica l 25 mL on Mon Branch 03/07/22 at 0108, Until Discontinu ed, MARCOS, Blood Glucose < or = 70 mg/dL and patient is unable to swallow or has mental status changes. morpHINE (2 2021-05- No 2mg 2 mg, Slow Univers mg/mL) 0-31 10-31 IV Push, ity of injection 2 03:10: 03:22 ONCE, 1 [place] mg 00 :00 dose, On Medical [place] Branch 03/06/22 at 2215, Routine D5W 0.45% 2021-05- No 1000mL at 125 Uni vers NaCl 0-31 10-31 mL/hr, ity of (1/2NS) IV 03:00: 12:46 1,000 mL, [place] infusion 00 :40 IV Medical 1,000 mL Infusion, Branch CONTINUOUS , Starting on 03/06/22 at 2200, Until 03/07/22 at 0746, MARCOS ondansetron 2021-05- No 4mg 4 mg, Slow Univers (ZOFRAN 0-31 10-31 IV Push, ity of (PF)) 02:00: 01:55 ONCE, 1 [place] injection 4 00 :00 dose, On Medi rogers mg [place] Branch 03/06/22 at 2100, MARCOS morpHINE (4 2021-05- No 4mg 4 mg, Slow Univers mg/mL) 0-31 -31 IV Push, ity of injection 4 02:00: 01:55 ONCE, 1 [place] mg 00 :00 dose, On Medical [place] Branch 03/06/22 at 2100, STAT levothyroxi 2020-05- No [id number] 75ug Take 1 Univers ne 75 mcg [...] by ity of tablet 12:55: mouth at [place] 59 bedtime. Medical Branch insulin 2020-05- [...] First dose [place] mg 00 on [facility] 03/02/21 Branch at 2100, Until Discontinu ed, Routine gabapentin 2020-05 Yes 300mg 300 mg, Uni vers (NEURONTIN) 0-27 Oral, QHS, it y of capsule 300 02:00: First dose [place] mg 00 on [facility] 03/02/21 Branch at 2100, Until Discontinu ed, Routine insulin 2020-05- No [id number] 20U inject 20 Univers detemir 0-27 11-27 Units ity of U-100 00:00: 05:59 under the [place] (LEVEMIR 00 :00 skin daily Medic al U-100 for 30 Branch INSULIN) days. 100 unit/mL injection gabapentin 2020-05- No [id number] 300mg Take 1 Univers 300 mg 0- 11-27 capsule by ity of capsule 00:00: 05:59 mouth at [place] 00 :00 bedtime Medical for 30 Branch days. insulin 2020-05- No 10U 10 Units, Univ ers glargine 0-26 10-27 Subcutaneo ity of (LANTUS 22:00: 13:11 us, QHS, [place] U-100) 00 :30 First dose Medical injection on Tue Branch 10 Units 03/02/21 at 1700, Until [...] [place] mg 59 Starting Medical on Mon03/01/21 at 1244, Until Discontinu ed, Routine, Seizures ondansetron 2020-05 Yes 4mg 4 mg, Slow Univers (ZOFRAN 0-25 IV Push, ity of (PF)) 17:44: Q6HPRN, [place] injection 4 26 Starting Medi rogers mg on Mon03/01/21 at 1244, Until Discontinu ed, Routine, Nausea and Vomiting (N/V) acetaminoph 2020-05 Yes 650mg 650 mg, Un lucila en 0-25 Oral, ity of (TYLENOL) 17:44: [place], [place] tablet 650 19 Starting Medic al [...] 00 :00 dose, On Medi rogers mg Mon Branch 03/01/21 at 1200, MARCOS D5W 0.45% 2020-05- No 1000mL at 125 Uni vers NaCl 0-25 10-25 mL/hr, ity of (1/2NS) IV 17:00: 21:29 1,000 mL, [place] infusion 00 :40 IV Medical 1,000 mL Infusion, Branch CONTINUOUS , Starting on Mon03/01/21 at 1200, Until Mon03/01/21 at 1629, MARCOS ondansetron 2019-0 Yes [id number] 4mg Take 1 Univers (ZOFRAN 1-28 tablet by ity of ODT) 4 mg 00:00: mouth [place] disintegrat 00 every 8 Medic al ing tablet (eight) Branch hours as needed for Nausea and Vomiting (N/V). ondansetron 2019-0 Yes [id number] 4mg Take 1 Univers (ZOFRAN 1-28 tablet by ity of ODT) 4 mg 00:00: mouth [place] disintegrat 00 every 8 Medic al ing tablet (eight) Branch hours as needed for Nausea and Vomiting (N/V). ondansetron 2019-0 Yes [id number] 4mg Take 1 Univers (ZOFRAN 1-28 tablet by ity of ODT) 4 mg 00:00: mouth [place] disintegrat 00 every 8 Medic al ing tablet (eight) Branch hours as needed for Nausea and Vomiting (N/V). ondansetron 2019-0 Yes [id number] 4mg Take 1 Univers (ZOFRAN 1-28 tablet by ity of ODT) 4 mg 00:00: mouth [place] disintegrat 00 every 8 Medic al ing tablet (eight) Branch hours as needed for Nausea and Vomiting (N/V). ondansetron 2019-0 Yes [id number] 4mg Take 1 Univers (ZOFRAN 1-28 tablet by ity of ODT) 4 mg 00:00: mouth [place] disintegrat 00 every 8 Medic al ing tablet (eight) Branch hours as needed for Nausea and Vomiting (N/V). ondansetron 2019-0 Yes [id number] 4mg Take 1 Univers (ZOFRAN 1-28 tablet by ity of ODT) 4 mg 00:00: mouth [place] disintegrat 00 every 8 Medic al ing tablet (eight) Branch hours as needed for Nausea and Vomiting (N/V). ondansetron 2019-0 Yes [id number] 4mg Take 1 Univers (ZOFRAN 1-28 tablet by ity of ODT) 4 mg 00:00: mouth [place] disintegrat 00 every 8 Medic al ing tablet (eight) Branch hours as needed for Nausea and Vomiting (N/V). ondansetron 2019-0 Yes [id number] 4mg Take 1 Univers (ZOFRAN 1-28 tablet by ity of ODT) 4 mg 00:00: mouth [place] disintegrat 00 every 8 Medic al ing tablet (eight) Branch hours as needed for Nausea and Vomiting (N/V). ondansetron 2019-0 Yes [id number] 4mg Take 1 Univers (ZOFRAN 1-28 tablet by ity of ODT) 4 mg 00:00: mouth [place] disintegrat 00 every 8 Medic al ing tablet (eight) Branch hours as needed for Nausea and Vomiting (N/V). ondansetron 2019-0 Yes [id number] 4mg Take 1 Univers (ZOFRAN 1-28 tablet by ity of ODT) 4 mg 00:00: mouth [place] disintegrat 00 every 8 Medic al ing tablet (eight) Branch hours as needed for Nausea and Vomiting (N/V). ondansetron 2019-0 Yes [id number] 4mg Take 1 Univers (ZOFRAN 1-28 tablet by ity of ODT) 4 mg 00:00: mouth [place] disintegrat 00 every 8 Medic al ing tablet (eight) Branch hours as needed for Nausea and Vomiting (N/V). ondansetron 2019-0 Yes [id number] 4mg Take 1 Univers (ZOFRAN 1-28 tablet by ity of ODT) 4 mg 00:00: mouth [place] disintegrat 00 every 8 Medic al ing tablet (eight) Branch hours as needed for Nausea and Vomiting (N/V). ondansetron 2019-0 Yes [id number] 4mg Take 1 Univers (ZOFRAN 1-28 tablet by ity of ODT) 4 mg 00:00: mouth [place] disintegrat 00 every 8 Medic al ing tablet (eight) Branch hours as needed for Nausea and Vomiting (N/V). ondansetron 2019-0 Yes [id number] 4mg Take 1 Univers (ZOFRAN 1-28 tablet by ity of ODT) 4 mg 00:00: mouth [place] [facility]at 00 every 8 Medic al ing tablet (eight) Branch hours as needed for Nausea and Vomiting (N/V). ondansetron 2019-0 Yes [id number] 4mg Take 1 [facility] (ZOFRAN 1-28 tablet by ity of ODT) 4 mg 00:00: mouth [place] [facility] 00 every 8 Medic al ing tablet (eight) Branch hours as needed for Nausea and Vomiting (N/V). ondansetron 2019-0 Yes [id number] 4mg Take 1 [facility] (ZOFRAN 1-28 tablet by ity of ODT) 4 mg 00:00: mouth [place] [facility] 00 every 8 Medic al ing tablet (eight) Branch hours as needed for Nausea and Vomiting (N/V). ondansetron 2019-0 Yes [id number] 4mg Take 1 [facility] (ZOFRAN 1-28 tablet by ity of ODT) 4 mg 00:00: mouth [place] [facility] 00 every 8 Medic al ing tablet (eight) Branch hours as needed for Nausea and Vomiting (N/V). ondansetron 2019-0 Yes [id number] 4mg Take 1 [facility] (ZOFRAN 1-28 tablet by ity of ODT) 4 mg 00:00: mouth [place] [facility] 00 every 8 Medic al ing tablet (eight) Branch hours as needed for Nausea and Vomiting (N/V). ondansetron 2019-0 Yes [id number] 4mg Take 1 [facility] (ZOFRAN 1-28 tablet by ity of ODT) 4 mg 00:00: mouth [place] [facility] 00 every 8 Medic al ing tablet (eight) Branch hours as needed for Nausea and Vomiting (N/V). ondansetron 2019-0 Yes [id number] 4mg Take 1 [facility] (ZOFRAN 1-28 tablet by ity of ODT) 4 mg 00:00: mouth [place] [facility] 00 every 8 Medic al ing tablet (eight) Branch hours as needed for Nausea and Vomiting (N/V). ondansetron 2019-0 Yes [id number] 4mg Take 1 [facility] (ZOFRAN 1-28 tablet by ity of ODT) 4 mg 00:00: mouth [place] [facility] 00 every 8 Medic al ing tablet (eight) Branch hours as needed for Nausea and Vomiting (N/V). ondansetron 2019-0 Yes [id number] 4mg Take 1 [facility] (ZOFRAN 1-28 tablet by ity of ODT) 4 mg 00:00: mouth [place] [facility] 00 every 8 Medic al ing tablet (eight) Branch hours as needed for Nausea and Vomiting (N/V). ondansetron 2019-0 Yes [id number] 4mg Take 1 [facility] (ZOFRAN 1-28 tablet by ity of ODT) 4 mg 00:00: mouth [place] [facility] 00 every 8 Medic al ing tablet (eight) Branch hours as needed for Nausea and Vomiting (N/V). ondansetron 2019-0 Yes [id number] 4mg Take 1 [facility] (ZOFRAN 1-28 tablet by ity of ODT) 4 mg 00:00: mouth [place] [facility] 00 every 8 Medic al ing tablet (eight) Branch hours as needed for Nausea and Vomiting (N/V). ondansetron 2019-0 Yes [id number] 4mg Take 1 [facility] (ZOFRAN 1-28 tablet by ity of ODT) 4 mg 00:00: mouth [place] [facility] 00 every 8 Medic al ing tablet (eight) Branch hours as needed for Nausea and Vomiting (N/V). ondansetron 2019-0 Yes [id number] 4mg Take 1 [facility] (ZOFRAN 1-28 tablet by ity of ODT) 4 mg 00:00: mouth [place] [facility] 00 every 8 Medic al ing tablet (eight) Branch hours as needed for Nausea and Vomiting (N/V). ondansetron 2019-0 Yes [id number] 4mg Take 1 [facility] (ZOFRAN 1-28 tablet by ity of ODT) 4 mg 00:00: mouth [place] [facility] 00 every 8 Medic al ing tablet (eight) Branch hours as needed for Nausea and Vomiting (N/V). ondansetron 2019-0 Yes [id number] 4mg Take 1 [facility] (ZOFRAN 1-28 tablet by ity of ODT) 4 mg 00:00: mouth [place] [facility] 00 every 8 Medic al ing tablet (eight) Branch hours as needed for Nausea and Vomiting (N/V). ondansetron 2019-0 Yes [id number] 4mg Take 1 [facility] (ZOFRAN 1-28 tablet by ity of ODT) 4 mg 00:00: mouth [place] [facility] 00 every 8 Medic al ing tablet (eight) Branch hours as needed for Nausea and Vomiting (N/V). ondansetron 2019-0 Yes [id number] 4mg Take 1 [facility] (ZOFRAN 1-28 tablet by ity of ODT) 4 mg 00:00: mouth [place] [facility] 00 every 8 Medic al ing tablet (eight) Branch hours as needed for Nausea and Vomiting (N/V). ondansetron 2019-0 Yes [id number] 4mg Take 1 [facility] (ZOFRAN 1-28 tablet by ity of ODT) 4 mg 00:00: mouth [place] [facility] 00 every 8 Medic al ing tablet (eight) Branch hours as needed for Nausea and Vomiting (N/V). ondansetron 2018-0 Yes [id number] 4mg Take 1 [facility] (ZOFRAN 1-28 tablet by ity of ODT) 4 mg 00:00: mouth [place] [facility] 00 every 8 Medic al ing tablet (eight) Branch hours as needed for Nausea and Vomiting (N/V). ondansetron 2018-0 Yes [id number] 4mg Take 1 [facility] (ZOFRAN 1-28 tablet by ity of ODT) 4 mg 00:00: mouth [place] [facility] 00 every 8 Medic al ing tablet (eight) Branch hours as needed for Nausea and Vomiting (N/V). ondansetron 2018-0 Yes [id number] 4mg Take 1 [facility] (ZOFRAN 1-28 tablet [...] Inject [address] [facility] [address] aspart 0-09 Units Keiry U-100 17:55: subcutaneo Medica l (NOVOLOG) 10 usly 3 Center 100 unit/mL (three) InPn times daily before meals. acetaminoph 2017-05 Yes 1{tbl} Take [address] en-codeine 0-09 tablet by Andres ragland (TYLENOL 17:55: mouth Medical #4) 300-60 10 every 6 Center mg per (six) tablet hours as needed for Pain. Immunizations Ordered Filled Immunization Date Status Comments [facility] e Immunization Name Name SARS-COV-2 COVID-19 2021-03-03 Completed Unive rsity of PFIZER VACCINE 00:00:00 [facility] SARS-COV-2 COVID-19 2021-03-03 Completed Unive rsity of PFIZER VACCINE 00:00:00 [facility] SARS-COV-2 COVID-19 2021-03-03 Completed Unive rsity of PFIZER VACCINE 00:00:00 [facility] SARS-COV-2 COVID-19 2021-03-03 Completed Unive rsity of PFIZER VACCINE 00:00:00 [facility] SARS-COV-2 COVID-19 2021-03-03 Completed Unive rsity of PFIZER VACCINE 00:00:00 [facility] SARS-COV-2 COVID-19 2021-03-03 Completed Unive rsity of PFIZER VACCINE 00:00:00 [facility] SARS-COV-2 COVID-19 2021-03-03 Completed Unive rsity of PFIZER VACCINE 00:00:00 [facility] SARS-COV-2 COVID-19 2021-03-03 Completed Unive rsity of PFIZER VACCINE 00:00:00 [facility] SARS-COV-2 COVID-19 2021-03-03 Completed Unive rsity of PFIZER VACCINE 00:00:00 [facility] SARS-COV-2 COVID-19 2021-03-03 Completed Unive rsity of PFIZER VACCINE 00:00:00 [facility] SARS-COV-2 COVID-19 2021-03-03 Completed Unive rsity of PFIZER VACCINE 00:00:00 [facility] SARS-COV-2 COVID-19 2021-03-03 Completed Unive rsity of PFIZER VACCINE 00:00:00 [place] [facility] SARS-COV-2 COVID-19 2021-03-03 Completed Unive rsity of PFIZER VACCINE 00:00:00 [facility] [place] [facility] Branch SARS-COV-2 COVID-19 2021-03-03 Completed Unive rsity of PFIZER VACCINE 00:00:00 [facility] [place] [facility] Branch SARS-COV-2 COVID-19 2021-03-03 Completed Unive rsity of PFIZER VACCINE 00:00:00 [facility] [place] [facility] Branch SARS-COV-2 COVID-19 2021-03-03 Completed Unive rsity of PFIZER VACCINE 00:00:00 [facility] [place] [facility] Branch SARS-COV-2 COVID-19 2021-03-03 Completed Unive rsity of PFIZER VACCINE 00:00:00 [facility] [place] [facility] SARS-COV-2 COVID-19 2021-03-03 Completed Unive rsity of PFIZER VACCINE 00:00:00 [facility] [place] [facility] SARS-COV-2 COVID-19 2021-03-03 Completed Unive rsity of PFIZER VACCINE 00:00:00 [facility] [place] [facility] SARS-COV-2 COVID-19 2021-03-03 Completed Unive rsity of PFIZER VACCINE 00:00:00 [facility] [place] [facility] SARS-COV-2 COVID-19 2021-03-03 Completed Unive rsity of PFIZER VACCINE 00:00:00 [facility] [place] [facility] SARS-COV-2 COVID-19 2021-03-03 Completed Unive rsity of PFIZER VACCINE 00:00:00 [facility] [place] [facility] SARS-COV-2 COVID-19 2021-03-03 Completed Unive rsity of PFIZER VACCINE 00:00:00 [facility] [place] [facility] SARS-COV-2 COVID-19 2021-03-03 Completed Unive rsity of PFIZER VACCINE 00:00:00 [facility] [place] [facility] SARS-COV-2 COVID-19 2021-03-03 Completed Unive rsity of PFIZER VACCINE 00:00:00 [facility] [place] [facility] SARS-COV-2 COVID-19 2021-03-03 Completed Unive rsity of PFIZER VACCINE 00:00:00 [facility] [place] [facility] SARS-COV-2 COVID-19 2021-03-03 Completed Unive rsity of PFIZER VACCINE 00:00:00 [facility] [place] [facility] SARS-COV-2 COVID-19 2021-03-03 Completed Unive rsity of PFIZER VACCINE 00:00:00 [facility] SARS-COV-2 COVID-19 2021-03-03 Completed Unive rsity of PFIZER VACCINE 00:00:00 [facility] SARS-COV-2 COVID-19 2021-03-03 Completed Unive rsity of PFIZER VACCINE 00:00:00 [facility] SARS-COV-2 COVID-19 2021-03-03 Completed Unive rsity of PFIZER VACCINE 00:00:00 [facility] SARS-COV-2 COVID-19 2021-03-03 Completed Unive rsity of PFIZER VACCINE 00:00:00 [facility] SARS-COV-2 COVID-19 2021-03-03 Completed Unive rsity of PFIZER VACCINE 00:00:00 [facility] SARS-COV-2 COVID-19 2021-03-03 Completed Unive rsity of PFIZER VACCINE 00:00:00 [facility] Influenza Four-QIV 2018-02-[address] [facility] Non-PF 5+ YR 00:00:00 [facility] Influenza Virus 2018-02-13 Completed Universit y of Vaccine Quad IM 3+ 00:00:00 [facility] Influenza Virus 2018-02-13 Completed Universit y of Vaccine Quad IM 3+ 00:00:00 [facility] Influenza Virus 2018-02-13 Completed Universit y of Vaccine Quad IM 3+ 00:00:00 [facility] Influenza Virus 2018-02-13 Completed Universit y of Vaccine Quad IM 3+ 00:00:00 [facility] Influenza Virus 2018-02-13 Completed Universit y of Vaccine Quad IM 3+ 00:00:00 [facility] Influenza Virus 2018-02-13 Completed Universit y of Vaccine Quad IM 3+ 00:00:00 [facility] Influenza Virus 2018-02-13 Completed Universit y of Vaccine Quad IM 3+ 00:00:00 [facility] Influenza Virus 2018-02-13 Completed Universit y of Vaccine Quad IM 3+ 00:00:00 [facility] Influenza Virus 2018-02-13 Completed Universit y of Vaccine Quad IM 3+ 00:00:00 [facility] Influenza Virus 2018-02-13 Completed Universit y of Vaccine Quad IM 3+ 00:00:00 [facility] Influenza Virus 2018-02-13 Completed Universit y of Vaccine Quad IM 3+ 00:00:00 [facility] Influenza Virus 2018-02-13 Completed Universit y of Vaccine Quad IM 3+ 00:00:00 [facility] Influenza Virus 2018-02-13 Completed Universit y of Vaccine Quad IM 3+ 00:00:00 [facility] Influenza Virus 2018-02-13 Completed Universit y of Vaccine Quad IM 3+ 00:00:00 [facility] Influenza Virus 2018-02-13 Completed Universit y of Vaccine Quad IM 3+ 00:00:00 [facility] Influenza Virus 2018-02-13 Completed Universit y of Vaccine Quad IM 3+ 00:00:00 [facility] Influenza Virus 2018-02-13 Completed Universit y of Vaccine Quad IM 3+ 00:00:00 [facility] Influenza Virus 2018-02-13 Completed Universit y of Vaccine Quad IM 3+ 00:00:00 [facility] Influenza Virus 2018-02-13 Completed Universit y of Vaccine Quad IM 3+ 00:00:00 [facility] Influenza Virus 2018-02-13 Completed Universit y of Vaccine Quad IM 3+ 00:00:00 [facility] Influenza Virus 2018-02-13 Completed Universit y of Vaccine Quad IM 3+ 00:00:00 [facility] Influenza Virus 2018-02-13 Completed Universit y of Vaccine Quad IM 3+ 00:00:00 [facility] Influenza Virus 2018-02-13 Completed Universit y of Vaccine Quad IM 3+ 00:00:00 [facility] Influenza Virus 2018-02-13 Completed Universit y of Vaccine Quad IM 3+ 00:00:00 [facility] Influenza Virus 2018-02-13 Completed Universit y of Vaccine Quad IM 3+ 00:00:00 [facility] Influenza Virus 2018-02-13 Completed Universit y of Vaccine Quad IM 3+ 00:00:00 [facility] Influenza Virus 2018-02-13 Completed Universit y of Vaccine Quad IM 3+ 00:00:00 [facility] Influenza Virus 2018-02-13 Completed Universit y of Vaccine Quad IM 3+ 00:00:00 [facility] Influenza Virus 2018-02-13 Completed Universit y of Vaccine Quad IM 3+ 00:00:00 [facility] Influenza Virus 2018-02-13 Completed Universit y of Vaccine Quad IM 3+ 00:00:00 [facility] Influenza Virus 2018-02-13 Completed Universit y of Vaccine Quad IM 3+ 00:00:00 [facility] Influenza Virus 2018-02-13 Completed Universit y of Vaccine Quad IM 3+ 00:00:00 [facility] Influenza Virus 2018-02-13 Completed Universit y of Vaccine Quad IM 3+ 00:00:00 [facility] Influenza Virus 2018-02-13 Completed Universit y of Vaccine Quad IM 3+ 00:00:00 [facility] Influenza Four-QIV 2018-02-[address] [facility] Non-PF 5+ YR 00:00:00 Medical [facility] Influenza Four-QIV 2018-02-[address] [facility] Non-PF 5+ YR 00:00:00 Medical [facility] Influenza Four-QIV 2018-02-[address] [facility] Non-PF 5+ YR 00:00:00 Medical [facility] Influenza Four-QIV 2018-02-[address] [facility] Non-PF 5+ YR 00:00:00 Medical [facility] Influenza Four-QIV 2018-02-[address] [facility] Non-PF 5+ YR 00:00:00 Medical [facility] Influenza Four-QIV 2018-02-[address] [facility] Non-PF 5+ YR 00:00:00 Medical [facility] Vital Signs Vital Name Observation Time Observation Value Comments Source Systolic blood 2022-05-24 142 mm[Hg] [place] of pressure 18:25:00 [facility] Diastolic blood 2022-05-24 85 mm[Hg] [place] o f pressure 18:25:00 [facility] Heart rate 2022-05-24 68 /min [facility] 18:25:00 [facility] Body temperature 2022-05-24 37.17 Elisha [facility] 18:25:00 [facility] Respiratory rate 2022-05-24 18 /min [facility] 18:25:00 [facility] Oxygen saturation 2022-05-24 99 /min [facility] in Arterial blood 18:25:00 [facility] [place] [facility] by Pulse oximetry [place] Body height 2022-05-24 175.3 cm [facility] 04:45:00 [facility] Body weight 2022-05-24 63.504 kg refused to stand [facility] 04:45:00 on scale [facility] BMI 2022-05-24 20.67 kg/m2 University of 04:45:00 [facility] Systolic blood 2022-05-07 113 mm[Hg] University of pressure 17:43:00 [facility] [place] [facility] Diastolic blood 2022-05-07 79 mm[Hg] University o f pressure 17:43:00 [facility] Heart rate 2022-05-07 80 /min University of 17:43:00 [facility] Body temperature 2022-05-07 36.17 Elisha University of 17:43:00 [facility] Respiratory rate 2022-05-07 18 /min University of 17:43:00 [facility] Oxygen saturation 2022-05-07 100 /min University of in Arterial blood 17:43:00 [place] [facility] by Pulse oximetry Branch Body weight 2022-05-07 62.596 kg University of 10:15:00 [facility] BMI 2022-05-07 20.38 kg/m2 University of 10:15:00 [facility] Body height 2022-05-05 175.3 cm University of 03:01:00 [facility] Systolic blood 2022-05-06 154 mm[Hg] University of pressure 17:29:54 [facility] Diastolic blood 2022-05-06 99 mm[Hg] University o f pressure 17:29:54 [facility] Respiratory rate 2022-05-06 12 /min University of 17:29:54 [facility] Oxygen saturation 2022-05-06 99 /min University of in Arterial blood 17:29:54 [facility] by Pulse oximetry Branch Heart rate 2022-05-06 96 /min University of 16:47:21 [facility] Body temperature 2022-05-06 36.44 Elisha University of 14:02:00 [facility] Body height 2022-05-05 175.3 cm University of 03:01:00 [facility] Body weight 2022-05-05 62.5 kg University of 03:01:00 [facility] BMI 2022-05-05 20.38 kg/m2 University of 03:01:00 [facility] Systolic blood 2022-04-21 119 mm[Hg] University of pressure 19:34:00 [facility] Diastolic blood 2022-04-21 84 mm[Hg] University o f pressure 19:34:00 [facility] Heart rate 2022-04-21 101 /min University of 19:34:00 [facility] Body temperature 2022-04-21 35.28 Elisha University of 19:34:00 [facility] Respiratory rate 2022-04-21 18 /min University of 19:34:00 [facility] Oxygen saturation 2022-04-21 99 /min University of in Arterial blood 19:34:00 [facility] rogers by Pulse oximetry Branch Body weight 2022-04-19 59.512 kg University of 10:15:00 [facility] BMI 2022-04-19 20.55 kg/m2 University of 10:15:00 [facility] Body height 2022-04-16 170.2 cm University of 09:39:00 [facility] Systolic blood 2022-04-19 155 mm[Hg] University of pressure 21:49:16 [facility] Diastolic blood 2022-04-19 93 mm[Hg] University o f pressure 21:49:16 [facility] Respiratory rate 2022-04-19 15 /min University of 21:49:16 [facility] Oxygen saturation 2022-04-19 98 /min University of in Arterial blood 21:49:16 [facility] by Pulse oximetry Branch Heart rate 2022-04-19 73 /min University of 20:14:04 [facility] Body temperature 2022-04-19 36.06 Elisha University of 14:31:00 [facility] Body weight 2022-04-19 59.512 kg University of 10:15:00 [facility] BMI 2022-04-19 20.55 kg/m2 University of 10:15:00 [facility] Body height 2022-04-16 170.2 cm University of 09:39:00 [facility] Systolic blood 2022-03-18 164 mm[Hg] University of pressure 17:00:00 [facility] Diastolic blood 2022-03-18 99 mm[Hg] University o f pressure 17:00:00 [facility] Heart rate 2022-03-18 113 /min University of 17:00:00 [facility] Oxygen saturation 2022-03-18 99 /min University of in Arterial blood 17:00:00 [facility] [place] [facility] by Pulse oximetry Branch Body height 2022-03-18 170.2 cm University of 16:57:00 [facility] Body weight 2022-03-18 62.687 kg University of 16:57:00 [facility] BMI 2022-03-18 21.65 kg/m2 University of 16:57:00 [facility] Systolic blood 2022-03-09 115 mm[Hg] University of pressure 16:33:00 [facility] [place] [facility] Diastolic blood 2022-03-09 74 mm[Hg] University o f pressure 16:33:00 [facility] Heart rate 2022-03-09 91 /min University of 16:33:00 [facility] Body temperature 2022-03-09 36.5 Elisha University of 16:33:00 [facility] Respiratory rate 2022-03-09 18 /min University of 16:33:00 [facility] Oxygen saturation 2022-03-09 95 /min University of in Arterial blood 16:33:00 [place] [facility] by Pulse oximetry Branch Body height 2022-03-07 175.3 cm University of 03:34:00 [facility] Body weight 2022-03-07 68.04 kg University of 03:34:00 [facility] BMI 2022-03-07 22.15 kg/m2 University of 03:34:00 [facility] Respiratory rate 2022-03-07 15 /min University of 17:37:00 [facility] Systolic blood 2022-03-07 150 mm[Hg] University of pressure 12:39:00 [facility] Diastolic blood 2022-03-07 92 mm[Hg] University o f pressure 12:39:00 [facility] Heart rate 2022-03-07 113 /min University of 12:39:00 [facility] Body temperature 2022-03-07 36.67 Elisha University of 12:39:00 [facility] Respiratory rate 2022-03-07 18 /min University of 12:39:00 [facility] Oxygen saturation 2022-03-07 98 /min University of in Arterial blood 12:39:00 [place] [facility] by Pulse oximetry Branch Body height 2022-03-07 175.3 cm University of 03:34:00 [facility] Body weight 2022-03-07 68.04 kg University of 03:34:00 [facility] BMI 2022-03-07 22.15 kg/m2 University of 03:34:00 [facility] Systolic blood 2021-03-03 109 mm[Hg] University of pressure 16:44:00 [facility] [place] [facility] Diastolic blood 2021-03-03 81 mm[Hg] University o f pressure 16:44:00 [facility] Heart rate 2021-03-03 85 /min [facility] 16:44:00 [facility] Body temperature 2021-03-03 36.33 Elisha [facility] 16:44:00 [facility] Respiratory rate 2021-03-03 16 /min [facility] 16:44:00 [facility] Oxygen saturation 2021-03-03 93 /min [facility] in Arterial blood 16:44:00 [facility] by Pulse oximetry [place] Body weight 2021-03-03 77.384 kg [facility] 09:09:00 [facility] BMI 2021-03-03 25.19 kg/m2 [facility] 09:09:00 [facility] Body height 2021-03-01 175.3 cm Simultaneous [facility] 18:25:00 filing. User may [facility] not have seen Branch previous data. Procedures Procedure Date / Time Performing Clinician Source Performed POCT GLUCOSE (AUTOMATED) 2022-05-24 20:03:00 Bobby Burch [facility] MAGNESIUM 2022-05-24 18:30:00 Acuna [facility] TROPONIN I 2022-05-24 18:30:00 [facility] BASIC METABOLIC PANEL (NA, 2022-05-24 18:30:00 [facility], CO2, GLUCOSE, BUN, Medica l Branch CREATININE, CA) ACTIVATED PARTIAL THRMPLAS 2022-05-24 18:30[facility] POCT GLUCOSE (AUTOMATED) 2022-05-24 18:30:00 Bobby Burch [facility] CBC WITH DIFF 2022-05-24 18:29:00 [facility] POCT GLUCOSE (AUTOMATED) 2022-05-24 18:28:00 Bobby Burch [facility] POCT GLUCOSE (AUTOMATED) 2022-05-24 18:26:00 Bobby Burch [facility] TRANSTHORACIC ECHO (TTE) 2022-05-24 17:05:00 Viet Acuna [facility] LIMITED W/ DOPPLER AND Medical B ranch COLOR POCT GLUCOSE (AUTOMATED) 2022-05-24 14:43:00 Bobby Burch [facility] E[facility]-12 LEAD 2022-05-24 03:29:03 Reba [facility] PROTHROMBIN TIME / INR 2022-05-24 01:51:00 Christian Britton [facility] ACTIVATED PARTIAL THRMPLAS 2022-05-24 01:51:00 Reba, [facility] JOHNNY [facility] GALV ONLY - INFLUENZA A B 2022-05-24 01:39:00 Reba, [facility] RSV PCR [facility] Branch COVID-19 (ID NOW RAPID 2022-05-24 01:39:00 Christian Britton [facility] TESTING) Medical Branch LAB ONLY COVID 2022-05-24 01:39:00 Reba [facility] INTERPRETATION [facility] Branch LIPASE 2022-05-24 01:36:00 Reba [facility] TROPONIN I 2022-05-24 01:36:00 Reba [facility] COMP. METABOLIC PANEL 2022-05-24 01:36:00 Reba [facility] ([id number]) [facility] CBC WITH DIFF 2022-05-24 01:36:00 Reba [facility] GLYCOSYLATED HEMOGLOBIN 2022-05-24 01:36:00 Viet Acuna [facility] (A1C) [facility] CONSENT/REFUSAL FOR 2022-05-24 01:23:09 Doctor Unassigned, [facility] DIAGNOSIS AND TREATMENT [place] [facility] POCT GLUCOSE (AUTOMATED) 2022-05-24 01:23:00 Christian Britton [facility] POCT GLUCOSE (AUTOMATED) 2022-05-07 19:03:00 Ariel Denson [facility] POCT GLUCOSE (AUTOMATED) 2022-05-07 19:03:00 Soufi, Mohamad [facility] POCT GLUCOSE (AUTOMATED) 2022-05-07 14:55:00 SouMil caind [facility] POCT GLUCOSE (AUTOMATED) 2022-05-07 14:55:00 Souant, Mild [facility] POCT GLUCOSE (AUTOMATED) 2022-05-07 10:13:00 SouMil caind [facility] POCT GLUCOSE (AUTOMATED) 2022-05-07 10:13:00 SouMil caind [facility] MAGNESIUM 2022-05-07 07:56:00 BlackGreyson [facility] BASIC METABOLIC PANEL (NA, 2022-05-07 07:56:00 Black, Greyson [facility] [place] [facility], CL, CO2, GLUCOSE, BUN, Michael Medica l Branch CREATININE, CA) CBC WITH DIFF 2022-05-07 07:56:00 Greyson Kim [facility] MAGNESIUM 2022-05-07 07:56:00 [facility]OLIC PAN[facility] (NA, 2022-05-07 07:56:00 Black, Greyson [facility] [place] [facility], CL, CO2, GLUCOSE, BUN, [place] Medica l Branch CREATININE, CA) CBC WITH DIFF 2022-05-07 07:56:00 [facility]SE (AUTOMATED) 2022-05-07 07:32:00 Ariel Denson [facility] POCT GLUCOSE (AUTOMATED) 2022-05-07 07:32:00 SouMil caind Uni vers[facility] of [facility] POCT GLUCOSE (AUTOMATED) 2022-05-07 01:26:00 Mil Densond Uni vers[facility] of [facility] POCT GLUCOSE (AUTOMATED) 2022-05-07 01:26:00 SouMil caind Uni vers[facility] of [facility] POCT GLUCOSE (AUTOMATED) 2022-05-07 01:02:00 SouMil caind Uni vers[facility] POCT GLUCOSE (AUTOMATED) 2022-05-07 01:02:00 JarettKeaganmanish Uni versity of [facility] POCT GLUCOSE (AUTOMATED) 2022-05-06 21:39:00 Jarett Ariel Uni vers[facility] of [facility] POCT GLUCOSE (AUTOMATED) 2022-05-06 21:39:00 Ariel Denson [facility] ACTIVATED PARTIAL THRMPLAS 2022-05-06 21:31:00 Isaiah Palmer [facility] ACTIVATED PARTIAL THRMPLAS 2022-05-06 21:31:00 Isaiah Palmer [facility] POCT ACT LOW RANGE 2022-05-06 17:45:00 Ariel Denson [facility] POCT ACT LOW RANGE 2022-05-06 17:45:00 Jarett [facility] CARDIAC CATHETERIZATION 2022-05-06 17:44:38 Jarett [facility] ersity of [facility] CARDIAC CATHETERIZATION 2022-05-06 17:44:38 Ammy [facility] ersity of [facility] CARDIAC CATHETERIZATION 2022-05-06 17:44:38 Ammy [facility] ersity of [facility] CARDIAC CATHETERIZATION 2022-05-06 17:44:38 Ammy [facility] ersity of [facility] CARDIAC CATHETERIZATION 2022-05-06 17:44:38 Ammy [facility] ersity of [facility] CARDIAC CATHETERIZATION 2022-05-06 17:44:38 Ammy [facility] ersity of [facility] POCT ACT LOW RANGE 2022-05-06 17:00:00 Jarett [facility] POCT ACT LOW RANGE 2022-05-06 17:00:00 Jarett [facility] CATH PROCEDURE LOG 2022-05-06 16:49:08 Jarett [facility] CATH PROCEDURE LOG 2022-05-06 16:49:08 Jarett [facility] HB ECG ROUTINE & RHYTHM 2022-05-06 14:08:11 Julio [facility] HB ECG ROUTINE & RHYTHM 2022-05-06 14:08:11 Julio [facility] POCT GLUCOSE (AUTOMATED) 2022-05-06 14:05:00 [facility] POCT GLUCOSE (AUTOMATED) 2022-05-06 14:05:00 [facility] POCT GLUCOSE (AUTOMATED) 2022-05-06 12:32:00 [facility] POCT GLUCOSE (AUTOMATED) 2022-05-06 12:32:00 [facility] MAGNESIUM 2022-05-06 10:57:00 Antonio Cabral [facility] TROPONIN I 2022-05-06 10:57:00 Misha [facility] BASIC METABOLIC PANEL (NA, 2022-05-06 10:57:[address] [facility] K, CL, CO2, GLUCOSE, BUN, Medica l Branch CREATININE, CA) CBC WITH DIFF 2022-05-06 10:57:00 Jt Palmer [facility] ACTIVATED PARTIAL THRMPLAS 2022-05-06 10:57:00 Isaiah Palmer [facility] MAGNESIUM 2022-05-06 10:57:00 Antonio Cabral [facility] TROPONIN I 2022-05-06 10:57:00 Antonio Cabral [facility] BASIC METABOLIC PANEL (NA, 2022-05-06 10:57:[address] [facility] K, CL, CO2, GLUCOSE, BUN, Medica l Branch CREATININE, CA) CBC WITH DIFF 2022-05-06 10:57:00 Spencer [facility] ACTIVATED PARTIAL THRMPLAS 2022-05-06 10:57:00 Isaaih Palmer [facility] POCT GLUCOSE (AUTOMATED) 2022-05-06 10:25:00 SouMil caind [facility] of [facility] POCT GLUCOSE (AUTOMATED) 2022-05-06 10:25:00 Soufi, Keaganamad Uni vers[facility] of [facility] POCT GLUCOSE (AUTOMATED) 2022-05-06 05:34:00 SoufiMild Uni versity of [facility] POCT GLUCOSE (AUTOMATED) 2022-05-06 05:34:00 Soufi, Keaganamad Uni [facility] of [facility] POCT GLUCOSE (AUTOMATED) 2022-05-06 04:15:00 SoufiMild Uni vers[facility] of [facility] POCT GLUCOSE (AUTOMATED) 2022-05-06 04:15:00 SouantKeaganamad Uni vers[facility] of [facility] ACTIVATED PARTIAL THRMPLAS 2022-05-06 02:23:00 Isaiah Palmer [facility] ACTIVATED PARTIAL THRMPLAS 2022-05-06 02:23:00 Isaiah Palmer [facility] POCT GLUCOSE (AUTOMATED) 2022-05-05 23:12:00 Mil Densond Uni vers[facility] of [facility] POCT GLUCOSE (AUTOMATED) 2022-05-05 23:12:00 SouMil caind [facility] POCT GLUCOSE (AUTOMATED) 2022-05-05 19:18:00 JarettMild Uni vers[facility] of [facility] POCT GLUCOSE (AUTOMATED) 2022-05-05 19:18:00 Jarett Keaganamad [facility] ACTIVATED PARTIAL THRMPLAS 2022-05-05 18:28:00 Isaiah Palmer [facility] ACTIVATED PARTIAL THRMPLAS 2022-05-05 18:28:00 Isaiah Palmer [facility] TROPONIN I 2022-05-05 18:26:00 [facility] 2022-05-05 18:26:00 Jt Palmer [facility] HB ECG ROUTINE & RHYTHM 2022-05-05 13:58:39 [facility] & RHYTHM 2022-05-05 13:58:39 [facility] ACTIVATED PARTIAL THRMPLAS 2022-05-05 11:27:00 Isaiah Palmer [facility] ACTIVATED PARTIAL THRMPLAS 2022-05-05 11:27:00 Isaiah Palmer [facility] MAGNESIUM 2022-05-05 10:51:00 Jt Palmer [facility] TROPONIN I 2022-05-05 10:51:00 Jt Palmer [facility] BASIC METABOLIC PANEL (NA, 2022-05-05 10:51:[address] [facility] K, CL, CO2, GLUCOSE, BUN, Medica l Branch CREATININE, CA) CBC WITH DIFF 2022-05-05 10:51:00 Jt Palmer [facility] PROTHROMBIN TIME / INR 2022-05-05 10:51:00 Jt Palmer [facility] ACTIVATED PARTIAL THRMPLAS 2022-05-05 10:51:00 Isaiah Palmer [facility] MAGNESIUM 2022-05-05 10:51:00 Jt Palmer [facility] TROPONIN I 2022-05-05 10:51:00 Jt Palmer [facility] BASIC METABOLIC PANEL (NA, 2022-05-05 10:51:[address] [facility] K, CL, CO2, GLUCOSE, BUN, Medica l Branch CREATININE, CA) CBC WITH DIFF 2022-05-05 10:51:00 Jt Palmer [facility] PROTHROMBIN TIME / INR 2022-05-05 10:51:00 Jt Palmer [facility] ACTIVATED PARTIAL THRMPLAS 2022-05-05 10:51:00 Isaiah Palmer [facility] HB ECG ROUTINE & RHYTHM 2022-05-05 03:56:06 [facility]t [facility] [place] [facility] ECG ROUTINE & RHYTHM 2022-05-05 03:56:06 [facility] POCT GLUCOSE (AUTOMATED) 2022-04-21 18:57:00 Shey Ramos [facility] POCT GLUCOSE (AUTOMATED) 2022-04-21 16:47:00 Shey Ramos [facility] POCT GLUCOSE (AUTOMATED) 2022-04-21 13:59:00 Shey Ramos [facility] POCT GLUCOSE (AUTOMATED) 2022-04-21 06:41:00 Shey Ramos [facility] POCT GLUCOSE (AUTOMATED) 2022-04-21 02:56:00 Shey Ramos [facility] POCT GLUCOSE (AUTOMATED) 2022-04-20 22:45:00 Shey Ramos [facility] POCT GLUCOSE (AUTOMATED) 2022-04-20 22:45:00 Shey Ramos [facility] TRANSTHORACIC ECHO (TTE) 2022-04-20 20:08:05 Aron York Uni versity of [facility] TRANSTHORACIC ECHO (TTE) 2022-04-20 20:08:05 Aron York Uni versity of [facility] POCT GLUCOSE (AUTOMATED) 2022-04-20 18:08:00 Shey Ramos [facility] POCT GLUCOSE (AUTOMATED) 2022-04-20 18:08:00 [facility] TROPONIN I 2022-04-20 17:25:00 [facility] TROPONIN I 2022-04-20 17:25:00 Emely [facility] HB ECG ROUTINE & RHYTHM 2022-04-20 16:00:18 [facility]OUTINE & RHYTHM 2022-04-20 16:00:18 [facility] PO[facility]SE (AUTOMATED) 2022-04-20 14:12:00 Shey Ramos [facility] POCT GLUCOSE (AUTOMATED) 2022-04-20 14:12:00 Shey Ramos [facility] POCT GLUCOSE (AUTOMATED) 2022-04-20 05:50:00 Shey Ramos [facility] POCT GLUCOSE (AUTOMATED) 2022-04-20 05:50:00 Shey Ramos [facility] POCT GLUCOSE (AUTOMATED) 2022-04-20 02:47:00 Shey Ramos [facility] POCT GLUCOSE (AUTOMATED) 2022-04-20 02:47:00 Shey Ramos versity [facility] ACTIVATED PARTIAL THRMPLAS 2022-04-20 00:36:00 [facility]RM[facility]AS 2022-04-20 00:36:00 Ayana Smith U niversity [facility] POCT GLUCOSE (AUTOMATED) 2022-04-19 23:58:00 Shey Ramos [facility] POCT GLUCOSE (AUTOMATED) 2022-04-19 23:58:00 Shey Ramos [facility] CARDIAC CATHETERIZATION 2022-04-19 21:42:42 [facility] CARDIAC CATHETERIZATION 2022-04-19 21:42:42 Chanell [facility] CARDIAC CATHETERIZATION 2022-04-19 21:42:42 Chanell [facility] CARDIAC CATHETERIZATION 2022-04-19 21:42:42 Chanell [facility] CARDIAC CATHETERIZATION 2022-04-19 21:42:42 Chanell [facility] CARDIAC CATHETERIZATION 2022-04-19 21:42:42 Chanell [facility] CARDIAC CATHETERIZATION 2022-04-19 21:42:42 Chanell [facility] CARDIAC CATHETERIZATION 2022-04-19 21:42:42 Chanell [facility] CARDIAC CATHETERIZATION 2022-04-19 21:42:42 Chanell [facility] CARDIAC CATHETERIZATION 2022-04-19 21:42:42 Tran [facility] CATH PROCEDURE LOG 2022-04-19 20:27:54 [facility] 2022-04-19 20:27:54 [facility] ([facility]OMATED) 2022-04-19 15:14:00 Shey Ramos Uni [facility] POCT GLUCOSE (AUTOMATED) 2022-04-19 15:14:00 Shey Ramos Uni [facility] POCT GLUCOSE (AUTOMATED) 2022-04-19 14:27:00 Shey Ramos Uni [facility] POCT GLUCOSE (AUTOMATED) 2022-04-19 14:27:00 Shey Ramos Uni [facility] MAGNESIUM 2022-04-19 10:33:00 Emely [facility] BASIC METABOLIC PANEL (NA, 2022-04-19 10:33:00 Lui Han [facility] K, CL, CO2, GLUCOSE, BUN, [facility] CREATININE, CA) CBC WITH DIFF 2022-04-19 10:33:00 Emely [facility] MAGNESIUM 2022-04-19 10:33:00 Emely [facility] BASIC METABOLIC PANEL (NA, 2022-04-19 10:33:00 Emely [facility] K, CL, CO2, GLUCOSE, BUN, [facility] Medica [facility] CREATININE, CA) CBC WITH DIFF 2022-04-19 10:33:00 Emely [facility] POCT GLUCOSE (AUTOMATED) 2022-04-19 10:16:00 Shey Ramos [facility] POCT GLUCOSE (AUTOMATED) 2022-04-19 10:16:00 Shey Ramos [facility] POCT GLUCOSE (AUTOMATED) 2022-04-19 06:20:00 Shey Ramos [facility] POCT GLUCOSE (AUTOMATED) 2022-04-19 06:20:00 Shey Ramos [facility] POCT GLUCOSE (AUTOMATED) 2022-04-19 03:08:00 Shey Ramos [facility] POCT GLUCOSE (AUTOMATED) 2022-04-19 03:08:00 Shey Ramos [facility] POCT GLUCOSE (AUTOMATED) 2022-04-19 00:08:00 Shey Ramos [facility] POCT GLUCOSE (AUTOMATED) 2022-04-19 00:08:00 Shey Ramos [facility] POCT GLUCOSE (AUTOMATED) 2022-04-18 22:34:00 Shey Ramos [facility] POCT GLUCOSE (AUTOMATED) 2022-04-18 22:34:00 Shey Ramos [facility] POCT GLUCOSE (AUTOMATED) 2022-04-18 17:18:00 Shey Ramos [facility] POCT GLUCOSE (AUTOMATED) 2022-04-18 17:18:00 Shey Ramos [facility] POCT GLUCOSE (AUTOMATED) 2022-04-18 14:44:00 Shey Ramos [facility] POCT GLUCOSE (AUTOMATED) 2022-04-18 14:44:00 Shey Ramos Uni versity of [facility] MAGNESIUM 2022-04-18 10:38:00 Roberto East o f [facility] BASIC METABOLIC PANEL (NA, 2022-04-18 10:38:00 Roberto East [facility] K, CL, CO2, GLUCOSE, BUN, [facility] CREATININE, CA) MAGNESIUM 2022-04-18 10:38:00 Roberto [place] o f [facility] BASIC METABOLIC PANEL (NA, 2022-04-18 10:38:00 Roberto East [facility] K, CL, CO2, GLUCOSE, BUN, [facility] CREATININE, CA) POCT GLUCOSE (AUTOMATED) 2022-04-18 10:28:00 Shey Ramos [facility] POCT GLUCOSE (AUTOMATED) 2022-04-18 10:28:00 Enriquea Amer [facility] POCT GLUCOSE (AUTOMATED) 2022-04-18 06:11:00 Enriquea Amer [facility] POCT GLUCOSE (AUTOMATED) 2022-04-18 06:11:00 Shey Ramos [facility] POCT GLUCOSE (AUTOMATED) 2022-04-18 02:46:00 Richard Amer [facility] POCT GLUCOSE (AUTOMATED) 2022-04-18 02:46:00 Shey Ramos [facility] POCT GLUCOSE (AUTOMATED) 2022-04-17 22:09:00 Richard Amer [facility] POCT GLUCOSE (AUTOMATED) 2022-04-17 22:09:00 Shey Ramos Uni versity [facility] COVID-19 (ID NOW RAPID 2022-04-17 18:33:00 Vimal Hills [facility] TESTING) [facility] LAB ONLY COVID 2022-04-17 18:33:00 Jeana [facility] INTERPRETATION [facility] COVID-19 (ID NOW RAPID 2022-04-17 18:33:00 Jeana Vimal [facility] TESTING) [facility] LAB ONLY COVID 2022-04-17 18:33:00 Jeana [facility] INTERPRETATION [facility] POCT GLUCOSE (AUTOMATED) 2022-04-17 18:25:00 Richard Amer [facility] POCT GLUCOSE (AUTOMATED) 2022-04-17 18:25:00 Richard Shey [facility] POCT GLUCOSE (AUTOMATED) 2022-04-17 17:44:00 Shey Ramos [facility] POCT GLUCOSE (AUTOMATED) 2022-04-17 17:44:00 Shey Ramos [facility] POCT GLUCOSE (AUTOMATED) 2022-04-17 13:25:00 Shey Ramos [facility] POCT GLUCOSE (AUTOMATED) 2022-04-17 13:25:00 Shey Ramos [facility] MAGNESIUM 2022-04-17 10:39:00 [facility] TROPONIN I 2022-04-17 10:39:00 [facility] BASIC METABOLIC PANEL (NA, 2022-04-17 10:39:00 Ayana Smith [facility] K, CL, CO2, GLUCOSE, BUN, Medica l Branch CREATININE, CA) ACTIVATED PARTIAL THRMPLAS 2022-04-17 10:39:00 [facility] MAGN[facility]UM 2022-04-17 10:39:00 Luis [facility] TROPONIN I 2022-04-17 10:39:00 [facility] BASIC METABOLIC PANEL (NA, 2022-04-17 10:39:00 Ayana Smith [facility] K, CL, CO2, GLUCOSE, BUN, Medica l Branch CREATININE, CA) ACTIVATED PARTIAL THRMPLAS 2022-04-17 10:39:00 Ayana Smith [facility] POCT GLUCOSE (AUTOMATED) 2022-04-17 10:37:00 Shey Ramos [facility] POCT GLUCOSE (AUTOMATED) 2022-04-17 10:37:00 Shey Ramos [facility] POCT GLUCOSE (AUTOMATED) 2022-04-17 05:50:00 Shey Ramos [facility] POCT GLUCOSE (AUTOMATED) 2022-04-17 05:50:00 Shey Ramos [facility] ACTIVATED PARTIAL THRMPLAS 2022-04-17 04:04:00 Ayana Smith [facility] ACTIVATED PARTIAL THRMPLAS 2022-04-17 04:04:00 Ayana Smith [facility] POCT GLUCOSE (AUTOMATED) 2022-04-17 02:37:00 Shey Ramos [facility] POCT GLUCOSE (AUTOMATED) 2022-04-17 02:37:00 Shey Ramos [facility] URINE DRUG (IMMUNOASSAY) - 2022-04-17 02:29:00 Ayana Smith [facility] COMPREHENSIVE DRUG SCREEN Medica l Branch URINALYSIS 2022-04-17 02:29:00 Brett Chaves [facility] GALV ONLY - URINE DRUG 2022-04-17 02:29:00 Ayana Smith [facility] (LCMSMS) - HCAI PANEL Medical Br anch URINE DRUG (LCMSMS) - 2022-04-17 02:29:00 Ayana Smith [facility] BENZODIAZEPINES PANEL Medical Br anch URINE DRUG (IMMUNOASSAY) - 2022-04-17 02:29:00 Ayana Smith [facility] COMPREHENSIVE DRUG SCREEN Medica l Branch URINALYSIS 2022-04-17 02:29:00 Brett Chaves [facility] GALV ONLY - URINE DRUG 2022-04-17 02:29:00 Ayana Smith [facility] (LCMSMS) - CHAI PANEL Medical Br anch URINE DRUG (LCMSMS) - 2022-04-17 02:29:00 Ayana Smith [facility] BENZODIAZEPINES PANEL Medical Br anch POCT GLUCOSE (AUTOMATED) 2022-04-16 23:27:00 Shey Ramos [facility] POCT GLUCOSE (AUTOMATED) 2022-04-16 23:27:00 Shey Ramos [facility] TROPONIN I 2022-04-16 19:57:00 [facility] TROPONIN I 2022-04-16 19:57:00 Reggie [facility] ACTIVATED PARTIAL THRMPLAS 2022-04-16 19:56:00 Ayana Smith [facility] ACTIVATED PARTIAL THRMPLAS 2022-04-16 19:56:00 Ayana Smith [facility] POCT GLUCOSE (AUTOMATED) 2022-04-16 16:59:00 Shey Ramos [facility] POCT GLUCOSE (AUTOMATED) 2022-04-16 16:59:00 Shey Ramos [facility] TROPONIN I 2022-04-16 12:13:00 Josey Smithssa [facility] ACTIVATED PARTIAL THRMPLAS 2022-04-16 12:13:00 Ayana Smith [facility] TROPONIN I 2022-04-16 12:13:00 [facility] PART[facility] THRMPLAS 2022-04-16 12:13:00 Ayana Smith [facility] EKG-12 LEAD 2022-04-16 10:03:35 Brett Chaves [facility] EKG-12 LEAD 2022-04-16 10:03:35 Brett Chaves [facility] CT HEAD WO CONTRAST 2022-04-16 08:35:39 Brett Chaves [facility] CT HEAD WO CONTRAST 2022-04-16 08:35:39 Brett Chaves [facility] CT CHEST PULMONARY 2022-04-16 07:22:08 Brett Chaves [facility] CHEST PULMONARY 2022-04-16 07:22:08 Brett Chaves [facility] XR CHEST 1 VW 2022-04-16 04:39:36 Brett Chaves [facility] XR CHEST 1 2022-04-16 04:39:36 Brett Chaves [facility] CK (CREATINE KINASE) + MB 2022-04-16 03:58:00 [facility] 2022-04-16 03:58:00 Brett Chaves [facility] TROPONIN I 2022-04-16 03:58:00 Brett Chaves [facility] FREE T4 2022-04-16 03:58:00 Lucero Paredes [facility] THYROID STIMULATING 2022-04-16 03:58:00 Ayana Smith [facility] COMP. METABOLIC PANEL 2022-04-16 03:58:00 Brett Chaves [facility] ([id number]) Medical Branch LIPID PANEL ([id number])(TOTAL 2022-04-16 03:58:00 Ayana Smith [facility] TRIGLYCERID[facility], HDL) ETHANOL 2022-04-16 03:58:00 Brett Chaves [facility] SERUM DRUG (IMMUNOASSAY) - 2022-04-16 03:58:00 Ayana Smith [facility] COMPREHENSIVE DRUG SCREEN Medica l Branch CBC WITH DIFF 2022-04-16 03:58:00 Brett Chaves [facility] D-DIMER 2022-04-16 03:58:00 Brett Chaves [facility] ACTIVATED PARTIAL THRMPLAS 2022-04-16 03:58:00 Brett Chaves [facility] CK (CREATINE KINASE) + MB 2022-04-16 03:58:00 Brett Chaves [facility] LIPASE 2022-04-16 03:58:00 Brett Chaves [facility] TROPONIN I 2022-04-16 03:58:00 Brett Chaves [facility] FREE T4 2022-04-16 03:58:00 Lucero Paredes [facility] THYROID STIMULATING 2022-04-16 03:58:00 Ayana Smith [facility] HORMONE [facility] COMP. METABOLIC PANEL 2022-04-16 03:58:00 Brett Chaves [facility] ([id number]) Medical Branch LIPID PANEL ([id number])(TOTAL 2022-04-16 03:58:00 Ayana Smith [facility] CHOLESTEROL, [facility] TRIGLYCERIDES, HDL) ETHANOL 2022-04-16 03:58:00 Brett Chaves [facility] SERUM DRUG (IMMUNOASSAY) - 2022-04-16 03:58:00 Ayana Smith [facility] COMPREHENSIVE DRUG SCREEN Medica l Branch CBC WITH DIFF 2022-04-16 03:58:00 Brett Chaves [facility] D-DIMER 2022-04-16 03:58:00 Brett Chaves [facility] ACTIVATED PARTIAL THRMPLAS 2022-04-16 03:58:00 [facility]US[facility] FOR 2022-04-16 03:17:24 Doctor Unassigned, [facility] DIAGNOSIS AND TREATMENT [facility] [place] CONSENT/REFUSAL FOR 2022-04-16 03:17:24 Doctor Unassigned, [facility] DIAGNOSIS AND TREATMENT [facility] POCT GLUCOSE (AUTOMATED) 2022-03-09 19:52:00 Lorraine Trevizo Un [facility] POCT GLUCOSE (AUTOMATED) 2022-03-09 13:21:00 Lorraine Trevizo [facility] POCT GLUCOSE (AUTOMATED) 2022-03-09 07:05:00 Lorraine Trevizo [facility] POCT GLUCOSE (AUTOMATED) 2022-03-09 04:04:00 Lorraine Trevizo [facility] POCT GLUCOSE (AUTOMATED) 2022-03-09 02:25:00 Lorraine Trevizo [facility] POCT GLUCOSE (AUTOMATED) 2022-03-08 21:55:00 Lorraine Trevizo [facility] POCT GLUCOSE (AUTOMATED) 2022-03-08 21:55:00 Lorraine Trevizo [facility] POCT GLUCOSE (AUTOMATED) 2022-03-08 17:18:00 Lorraine Trevizo [facility] POCT GLUCOSE (AUTOMATED) 2022-03-08 17:18:00 Lorraine Trevizo [facility] POCT GLUCOSE (AUTOMATED) 2022-03-08 12:55:00 Lorraine Trevizo [facility] POCT GLUCOSE (AUTOMATED) 2022-03-08 12:55:00 Lorraine Trevizo Un iversity of [facility] COMP. METABOLIC PANEL 2022-03-08 08:44:00 Pierce sydnie [facility] ([id number]) [facility] Branch CBC WITH DIFF 2022-03-08 08:44:00 Pierce sydnie [facility] COMP. METABOLIC PANEL 2022-03-08 08:44:00 Pierce sydnie [facility] ([id number]) Medical Branch CBC WITH DIFF 2022-03-08 08:44:00 Pierce sydnie [facility] POCT GLUCOSE (AUTOMATED) 2022-03-08 05:40:00 Lorraine Trevizo [facility] POCT GLUCOSE (AUTOMATED) 2022-03-08 05:40:00 Lorraine Trevizo [facility] POCT GLUCOSE (AUTOMATED) 2022-03-08 02:17:00 Lorraine Trevizo [facility] POCT GLUCOSE (AUTOMATED) 2022-03-08 02:17:00 Lorraine Trevizo [facility] POCT GLUCOSE (AUTOMATED) 2022-03-07 23:06:00 Lorraine Trevizo [facility] POCT GLUCOSE (AUTOMATED) 2022-03-07 23:06:00 Lorraine Trevizo [facility] POCT GLUCOSE (AUTOMATED) 2022-03-07 22:13:00 Lorraine Trevizo [facility] POCT GLUCOSE (AUTOMATED) 2022-03-07 22:13:00 Lorraine Trevizo [facility] XR PELVIS <3 VW 2022-03-07 19:15:15 Eva [facility] XR PELVIS <3 VW 2022-03-07 19:15:15 [facility] 2022-03-07 14:50:00 Gareth Galeana [facility] HIP HEMIARTHROPLASTY 2022-03-07 14:26:00 [facility] HIP HEMIARTHROPLASTY 2022-03-07 14:26:00 Tor Montano [facility] POCT GLUCOSE (AUTOMATED) 2022-03-07 12:41:00 Lorraine Trevizo [facility] POCT GLUCOSE (AUTOMATED) 2022-03-07 12:41:00 Lorraine Trevizo [facility] URINE DRUG (IMMUNOASSAY) - 2022-03-07 10:21:00 Jorge Pelayo [facility] COMPREHENSIVE DRUG SCREEN Medica [facility] URINALYSIS 2022-03-07 10:21:00 Jorge Pelayo [facility] SODIUM, URINE RANDOM 2022-03-07 10:21:00 Jorge Pelayo [facility] PROTEIN CREAT RATIO URINE 2022-03-07 10:21:00 Jorge Pelayo [facility] URINE DRUG (IMMUNOASSAY) - 2022-03-07 10:21:00 Jorge Pelayo [facility] COMPREHENSIVE DRUG SCREEN Medica l [place] URINALYSIS 2022-03-07 10:21:00 Jorge Pelayo [facility] SODIUM, URINE RANDOM 2022-03-07 10:21:00 Jorge Pelayo [facility] PROTEIN CREAT RATIO URINE 2022-03-07 10:21:00 Jorge Pelayo [facility] URINE CULTURE 2022-03-07 10:20:00 Jorge Pelayo [facility] URINE CULTURE 2022-03-07 10:20:00 Jorge Pelayo [facility] POCT GLUCOSE (AUTOMATED) 2022-03-07 08:43:00 Lorraine Trevizo [facility] POCT GLUCOSE (AUTOMATED) 2022-03-07 08:43:00 Lorraine [facility]izo [facility] PHOSPHORUS 2022-03-07 08:26:00 Pierce sydnie [facility] MAGNESIUM 2022-03-07 08:26:00 Pierce sydnie [facility] COMP. METABOLIC PANEL 2022-03-07 08:26:00 Jorge Pelayo [facility] ([id number]) [facility] CBC WITH DIFF 2022-03-07 08:26:00 Pierce sydnie [facility] PROTHROMBIN TIME / INR 2022-03-07 08:26:00 Jorge Pelayo [facility] N-TERMINAL PRO-BNP 2022-03-07 08:26:00 Pierce sydnie [facility] PHOSPHORUS 2022-03-07 08:26:00 Pierce [facility] MAGNESIUM 2022-03-07 08:26:00 Pierce sydnie [facility] COMP. METABOLIC PANEL 2022-03-07 08:26:00 Jorge Pelayo [facility] ([id number]) [facility] CBC WITH DIFF 2022-03-07 08:26:00 Pierce sydnie [facility] PROTHROMBIN TIME / INR 2022-03-07 08:26:00 Jorge Pelayo [facility] N-TERMINAL PRO-BNP 2022-03-07 08:26:00 Pierce sydnie [facility] POCT GLUCOSE (AUTOMATED) 2022-03-07 04:13:00 Lorraine [facility] PO[facility]SE (AUTOMATED) 2022-03-07 04:13:00 Lorraine Trevizo [facility] XR PELVIS <3 VW 2022-03-07 02:04:37 Lorraine Trevizo [facility] XR PELVIS <3 VW 2022-03-07 02:04:37 Lorraine Trevizo [facility] XR CHEST 1 VW 2022-03-07 01:58:10 Lorraine Trevizo [facility] XR HIPS 2 VW RIGHT 2022-03-07 01:58:10 Lorraine Trevizo [facility] XR CHEST 1 VW 2022-03-07 01:58:10 Lorraine Trevizo [facility] XR HIPS 2 VW RIGHT 2022-03-07 01:58:10 Lorraine Trevizo [facility] HB ECG ROUTINE & RHYTHM 2022-03-07 01:56:57 Lorraine Trevizo [facility] HB ECG ROUTINE & RHYTHM 2022-03-07 01:56:57 Lorraine Trevizo [facility] URIC ACID 2022-03-07 01:46:00 Pierce sydnie [facility] MAGNESIUM 2022-03-07 01:46:00 Pierce [facility] FREE T4 2022-03-07 01:46:00 Pierce [facility] COMP. METABOLIC PANEL 2022-03-07 01:46:00 Lorraine Trevizo [facility] ([id number]) [facility] LIPID PANEL ([id number])(TOTAL 2022-03-07 01:46:00 Pierce sydnie [facility] TRIGLYCERID[facility], HDL) ETHANOL 2022-03-07 01:46:00 Pierce sydnie [facility] SEDIMENTATION RATE 2022-03-07 01:46:00 Pierce sydnie [facility] CBC WITH DIFF 2022-03-07 01:46:00 Lorraine Trevizo [facility] GLYCOSYLATED HEMOGLOBIN 2022-03-07 01:46:00 Pierce sydnie [facility] (A1C) [facility] N-TERMINAL PRO-BNP 2022-03-07 01:46:00 Pierce sydnie [facility] FREE T3 2022-03-07 01:46:00 Pierce sydnie [facility] URIC ACID 2022-03-07 01:46:00 Pierce sydnie [facility] MAGNESIUM 2022-03-07 01:46:00 Pierce [facility] FREE T4 2022-03-07 01:46:00 Pierce [facility] COMP. METABOLIC PANEL 2022-03-07 01:46:00 Lorraine Trevizo [facility] ([id number]) Medical [place] LIPID PANEL (67011)(TOTAL 2022-03-07 01:46:00 Jorge Pelayo [facility] CHOLESTEROL, [facility] TRIGLYCERIDES, HDL) ETHANOL 2022-03-07 01:46:00 Pierce sydnie [facility] SEDIMENTATION RATE 2022-03-07 01:46:00 Pierce [facility] CBC WITH DIFF 2022-03-07 01:46:00 Lorraine Trevizo [facility] GLYCOSYLATED HEMOGLOBIN 2022-03-07 01:46:00 Pierce [facility] (A1C) [facility] N-TERMINAL PRO-BNP 2022-03-07 01:46:00 Pierce [facility] FREE T3 2022-03-07 01:46:00 Pierce sydnie [facility] POCT GLUCOSE (AUTOMATED) 2022-03-07 01:45:00 Lorraine Trevizo [facility] POCT GLUCOSE (AUTOMATED) 2022-03-07 01:45:00 Lorraine [facility]izo [facility] NOTICE OF PRIVACY 2022-03-07 01:33:58 Doctor Unassrohini, [facility] PRACTICES [facility] [place] NOTICE OF PRIVACY 2022-03-07 01:33:58 Doctor Unassigned, [facility] PRACTICES [facility] [place] CONSENT/REFUSAL FOR 2022-03-07 01:32:07 Doctor Tj [facility] DIAGNOSIS AND TREATMENT [facility] [place] CONSENT/REFUSAL FOR 2022-03-07 01:32:07 Doctor Unassrohini [facility] DIAGNOSIS AND TREATMENT [facility] [place] POCT GLUCOSE (AUTOMATED) 2021-03-03 17:28:00 Matt Ford [facility] POCT GLUCOSE (AUTOMATED) 2021-03-03 13:06:00 [facility] BASIC METABOLIC PANEL (NA, 2021-03-03 09:15:00 Matt Ford [facility] K, CL, CO2, GLUCOSE, BUN, Medica l Branch CREATININE, CA) CBC WITH DIFF 2021-03-03 09:15:00 [facility] ([facility]OM[facility]) 2021-03-03 03:19:00 Matt Ford Uni versity [facility] POCT GLUCOSE (AUTOMATED) 2021-03-03 00:52:00 Matt Ford Uni versity [facility] POCT GLUCOSE (AUTOMATED) 2021-03-02 22:20:00 Matt Ford [facility] POCT GLUCOSE (AUTOMATED) 2021-03-02 17:14:00 Matt Ford [facility] POCT GLUCOSE (AUTOMATED) 2021-03-02 12:59:00 Matt Ford [facility] FREE T4 2021-03-02 09:44:00 Logan [facility] BASIC METABOLIC PANEL (NA, 2021-03-02 09:44:00 [facility] K, CL, CO2, GLUCOSE, BUN, Medica l Branch CREATININE, CA) FREE T3 2021-03-02 09:44:00 [facility] PO[facility]UCOSE (AUTOMATED) 2021-03-02 01:03:00 Matt [facility] POCT GLU[facility]SE (AUTOMATED) 2021-03-01 21:37:00 Matt [facility] CRITICAL CARE 2021-03-01 21:20:20 Akira Winter [facility] POCT GLUCOSE (AUTOMATED) 2021-03-01 20:55:00 Matt Ford [facility] POCT GLUCOSE (AUTOMATED) 2021-03-01 18:17:00 Matt Ford [facility] POCT GLUCOSE (AUTOMATED) 2021-03-01 16:49:00 Akira Winter [facility] CT HEAD WO CONTRAST 2021-03-01 16:00:12 Akira Winter [facility] [place] MAGNESIUM 2021-03-01 15:51:00 Akira Winter [facility] THYROID STIMULATING 2021-03-01 15:51:00 Usman John [facility] HORMONE [facility] COMP. METABOLIC PANEL 2021-03-01 15:51:00 Akira Winter [facility] ([id number]) [facility] Branch CBC WITH DIFF 2021-03-01 15:51:00 Akira Winter [facility] GLYCOSYLATED HEMOGLOBIN 2021-03-01 15:51:00 [facility] Branch COVID-19 (ID NOW RAPID 2021-03-01 15:51:00 Akira Winter [facility] TESTING) Medical Branch LAB ONLY COVID 2021-03-01 15:51:00 Akira Winter [facility] INTERPRETATION [facility] HB ECG ROUTINE & RHYTHM 2021-03-01 15:45:31 Akira Winter [facility] STRIP [facility] POCT GLUCOSE (AUTOMATED) 2021-03-01 15:42:00 Akira Winter [facility] Plan of Care Planned Activity Planned Date Details Comments Source Future Scheduled 2021-02-[address] [facility] 00:00:00 (procedure) [code = Medical Center 65880824] Future Scheduled 2021-01-[address] [facility] Test 00:00:00 (Season Ended) [code = [facility] INFLUENZA VACCINE (Season Ended)] Future Scheduled 2020-05-[address] [facility] Test 00:00:00 (12+) [code = Medical Center DEPRESSION SCREENING (12+)] Future Scheduled 2018-08-[address] [facility] 00:[facility]:00 measurement Medical Center (procedure) [code = 82514147] Future Scheduled 1993 DTAP/TDAP/TD VACCINES CH I [...] 00:00:00 examination Medical Center (regime/therapy) [code = 562039842] Future Scheduled 1984-01-26 Urine screening for [facility] Test 00:00:00 protein (procedure) Medical Center [code = 569585429] Future Scheduled 1980-01-[address] [facility] Test 00:00:00 0-64 YRS (1 of 1 - Medical C enter PPSV23) [code = PNEUMOCOCCAL VACCINE 0-64 YRS (1 of 1 - PPSV23)] Future Scheduled [address] [facility] Test 00:00:00 malignant neoplasm of Medica Center colon (procedure) [code = 020296706] Encounters Start End Encounter Admission Attending Care Care Encounter Source Date/Time Date/Time Type Type Clinicians Facility Department ID 2021-03-09 Emergency [facility] [id number] Univers 09:22:47 y [facility] 2021-03-08 Emergency [facility] [id number] Univers 02:24:31 ity [facility] 2022-06-07 2022-06-07 Letter HEATHER Denson 1.2.840.114 [id number] Univers 00:00:00 00:00:00 (Out) Ariel REDD [id number] it y [facility] [place] 4.2.7.2.686 Jaun as [id number] [facility] 090 Branch 2022-05-23 2022-05-24 Outpatient X [facility] [id number] Univers 19:26:00 20:19:00 BOBBY bennett [facility] 2022-05-23 2022-05-24 Emergency Christian Britton 1.2.84 0.114 [id number] Univers 19:26:00 20:19:00 Bobby Burch S ROSI 350.1.13.10 ity of [facility] 4.2.7.2.686 [place] [id number] [facility] 090 Branch 2022-05-23 2022-05-23 Telephone PEE Chauhan 1.2.840.114 [id number] Univers 00:00:00 00:00:00 Brigette REDD 350.1.13.10 i ty of HOSPITAL 4.2.7.2.686 Jaun as [id number] [facility] 025 Branch 2022-05-19 2022-05-19 Telephone Junior, UNIVERSIT 1.2.840.114 [id number] Univers 00:00:00 00:00:00 [facility] 350.1.13.10 ity of [facility] 4.2.7.2.[place] [id number] [facility] 084 Branch 2022-05-19 2022-05-19 Telephone MANI RosaIvonne 1.2.619.451 [id number] Univers 00:00:00 00:00:00 Maria Fernanda TAYLOR 350.1.13.10 i ty of [place] 4.2.7.2.[place] [id number] [facility] 086 Branch 2022-05-18 2022-05-18 Telephone PEE Chauhan 1.2.840.114 [id number] Univers 00:00:00 00:00:00 Brigette REDD 350.1.13.10 i ty of HOSPITAL 4.2.7.2.686 Jaun as [id number] [address] 2022-05-18 2022-05-18 Telephone PEE Chauhan 1.2.840.114 [id number] Univers 00:00:00 00:00:00 Brigette REDD 350.1.13.10 i ty of HOSPITAL 4.2.7.2.686 Jaun as [id number] [facility] 025 [place] 2022-05-13 2022-05-13 Telephone PEE Chauhan 1.2.840.114 [id number] Univers 00:00:00 00:00:00 Brigette REDD 350.1.13.10 i ty of HOSPITAL 4.2.7.2.686 [place]un as [id number] [place] [address] Branch 2022-05-13 2022-05-13 Telephone PEE Chauhan.2.840.114 99 [id number] Univers 00:00:00 00:00:00 Brigette REDD 350.1.13.10 i ty of [facility] 4.2.7.2.686 Jaun as [id number] [address] 2022-05-13 2022-05-13 Amanda Teixeiraillo PEE 1.2.840.114 [id number] Univers 00:00:00 00:00:00 Brigette Gareth TRAMAINE 350.1.13.10 i ty of [place] [address].2.7.2.686 Jaun as [id number] [address] 2022-05-12 2022-05-12 Amanda TeixeiraPEE canas 1.2.840.114 99 [id number] Univers 00:00:00 00:00:00 Brigette Servin TRAMAINE 350.1.13.10 i ty of HOSPITAL .2.7.2.686 Jaun as [id number] [address] 2022-05-11 2022-05-11 Amanda TeixeiraPEE canas 1.2.840.114 [id number] Univers 00:00:00 00:00:00 Brigette Servin TRAMAINE 350.1.13.10 i ty of [facility] 4.2.7.2.686 Jaun as [id number] [address] 2022-05-11 2022-05-11 Amanda PEE Chauhan 1.2.840.114 99 [id number] Univers 00:00:00 00:00:00 Brigette Servin TRAMAINE 350.1.13.10 i ty of [facility] 4.2.7.2.686 Jaun as [id number] [place] [address] Branch 2022-05-10 2022-05-10 Transition BEN Rodriguez 1.2.840.114 [id number] Univers 00:00:00 00:00:00 of Care Patricia TAYLOR 350.1.13.10 ity of [place] 4.2.[place].2.[place] [id number] [place] [address] Branch 2022-05-04 2022-05-07 [facility] [id number] Univers 20:46:00 15:28:00 MOHAMAD ity of [facility] 2022-05-04 2022-05-07 [facility] HEATHER Denson 1.2.840.114 [id number] Univers 20:46:00 15:28:00 Encounter Ariel REDD 350.1.13.10 ity of [facility] 4.2.7.2.686 Jaun as [id number] [facility] 090 Branch 2022-05-07 2022-05-07 [facility] 1.2.840.114 [id number] Univers 00:00:00 00:00:00 Hamza PRIMARY 350.1.13.10 it y of [facility] 4.2.7.2.[place] [id number] Ga dical 389 Branch 2022-05-06 2022-05-06 Surgery HEATHER Forbes 1.2.840.114 99 [id number] Univers 09:30:00 11:30:00 Pam TRAMAINE 350.1.13.10 ity of [facility] 4.2.7.2.686 Jaun as [id number] [facility]gers 840 Branch 2022-05-04 2022-05-04 Telephone PEE Chauhan 1.2.840.114 99 [id number] Univers 00:00:00 00:00:00 Brigette REDD 350.1.13.10 i ty of HOSPITAL 4.2.7.2.686 Jaun as [id number] Medi [facility] 025 Branch 2022-05-03 2022-05-03 Telephone PEE Chauhan 1.2.840.114 99 [id number] Univers 00:00:00 00:00:00 Brigette REDD 350.1.13.10 i ty of HOSPITAL 4.2.7.2.686 Jaun as [id number] Medi [facility] 025 Branch 2022-04-27 2022-04-27 Telephone PEE Chauhan 1.2.840.114 99 [id number] Univers 00:00:00 00:00:00 Brigette REDD 350.1.13.10 i ty of HOSPITAL 4.2.7.2.686 Jaun as [id number] Medi [facility]gers 025 Branch 2022-04-26 2022-04-26 Telephone PEE Chauhan 1.2.840.114 99 [id number] Univers 00:00:00 00:00:00 Brigette Gareth REDD 350.1.13.10 i ty of [facility] 4.2.7.2.686 Jaun as [id number] [facility] 025 [place] 2022-04-26 2022-04-26 Telephone PEE Chauhan 1.2.840.114 99 [id number] Univers 00:00:00 00:00:00 Brigette Servin TRAMAINE 350.1.13.10 i ty of [facility] 4.2.7.2.686 Jaun as [id number] [facility] [address]25 [place] 2022-04-24 2022-04-24 Letter FAZAL Junior 1.2.373.908 [id number] Univers 00:00:00 00:00:00 (Out) [facility] 350.1.13.10 ity of [facility] 4.2.7.2.[place] [id number] [facility] 084 Branch 2022-04-22 2022-04-22 Transition BEN Rodriguez 1.2.840.114 [id number] Univers 00:00:00 00:00:00 of Care Patricia TAYLOR 350.1.13.10 ity [facility] 4.2.7.2.[place] [id number] [facility] 403 Branch 2022-04-15 2022-04-21 Inpatient X SHEY RAMOS [facility] 10 [id number] Univers 21:21:00 14:13:00 SHEY RAMOS ity of [facility] 2022-04-15 2022-04-21 [facility] Brett Chaves 1.2.840.11 [id number] Univers 21:21:00 14:13:00 Encounter Shey Ramos 350.1.13.10 ity of [facility] 4.2.7.2.686 Jaun as [id number] [facility] 090 Branch 2022-04-19 2022-04-19 Surgery Bal Gold 1.2.840.114 [id number] Univers 13:53:00 15:53:00 N TRAMAINE 350.1.13.10 it y of HOSPITAL 4.2.7.2.686 Jaun as [id number] [facility] 840 [place] 2022-04-18 2022-04-18 Letter JuniorKRYSTALIT 1.2.122.370 [id number] Univers 00:00:00 00:00:00 (Out) Dale Kari Lujan [facility] 350.1.13.10 ity of [facility] 4.2.7.2.[place] [id number] [facility] [address] [place] 2022-04-15 2022-04-15 Outpatient [facility] [id number] Univers 08:00:00 08:00[facility]00 [facility] 2022-03-18 2022-03-18 Outpatient Gareth [facility] [id number] Univers 11:15:00 12:11:35 [facility] 2022-03-18 2022-03-18 [facility] 1.2.840.114 [id number] Univers 11:15:00 12:11:35 Visit [facility] 350.1.13.10 it y of [place] 4.2.7.2.686 Jaun as DARRYL?BLEA [phone] [address] MEDICAL OFFICE BUILDING 2022-03-10 2022-03-10 Transition BEN Rodriguez 1.2.840.114 [id number] Univers 00:00:00 00:00:00 of Care Patricia TAYLOR 350.1.13.10 [place]y [place].2.[place] [id number] [facility] [address] [place] 2022-03-06 2022-03-09 Inpatient X PIERCE [facility] IRINEO [id number] Univers 20:34:00 15:50:00 ADSYDNIE ity [facility] 2022-03-06 2022-03-09 Hospital Lorraine Trevizo [facility] 1.2.840. 114 [id number] Univers 20:34:00 15:50:00 Encounter Jorge Pelayo 350.1.13.10 ity of [place] 4.2.7.2.[place] ELLIJAY [id number] [place] [id number] Branch 2022-03-07 2022-03-07 Anesthesia Alquicira-M [facility] 1.2.840.114 [id number] Univers 09:41:00 12:53:00 Event RENETTA campos 350.1.13.10 i ty of [place] 4.2.7.2.686 Jaun as SURGICAL [id number] [facility] 020 Branch 2022-03-07 2022-03-07 [facility] 1.2.149.282 [id number] Univers 09:30:00 12:03:00 Tor JACKSON 350.1.13.10 i ty of [place] 4.2.7.2.686 [facility] [id number] [facility] 020 Branch 2021-03-12 2021-03-12 Outpatient Gareth MALHOTRA [facility] [id number] Univers 16:30:00 16:30:00 ANDREI sabrina [facility] 2021-03-01 2021-03-03 Emergency Akira Winter [facility] 1.2.840. 114 [id number] Univers 10:40:00 12:50:00 Matt Ford 350.1.13.10 ity of [place] 4.2.7.2.686 [facility] [id number] [address] 2020-10-27 2020-10-27 Transition Ben Rodriguez 1.2.840.114 [id number] 00:00:00 00:00:00 of Care Patricia [place] 350.1.13.10 [place] 4.2.7.2.686 [id number] 403 2020-10-25 2020-10-26 Hospital Winter Akira [facility] 1.2.840.1 14 [id number] 16:12:00 18:10:00 Encounter Ryan Cardozo 350.1.13.10 Jorge Pelayo 4.2.7.2.686 [place] [id number] 080 2020-08-17 2020-08-17 Outpatient [facility] [id number] Univers 16:01:43 23:59:00 TOR hammondtheresa [facility] 2020-08-17 2020-08-17 Office Tremayne MAINGRID 1.2.826.406 [id number] 15:25:16 16:33:28 Visit Tor Khan [facility] 350.1.13.10 Surgical 4.2.7.2.686 Specialti [phone] es [address] [place] Results Test Description Test Time Test Comments Results Result Comments Source POCT GLUCOSE (AUTOMATED) 2022-05-24 20:09:25 Test Item Value Reference Range Interpretation Comme nts POCT GLU (test code = 3307430332) 144 mg/dL 70-110 H Lab Interpretation (test code = 91916-1) [facility]22-[facility]-24 19:48:54 Test Item Value Reference Range Interpretation Comments Height (test code = in 4623104285) Weight (test code = lbs 6353887943) Systolic BP (test code = mmHg 1064014661) Diastolic BP (test code mmHg = 4274550969) Heart Rate (test code = bpm 3639031594) EF(Teich) (test code = 63.50 % 1111526489) LVIDD (test code = 4.40 cm 7090967483) LVIDS (test code = 2.90 cm 6705020872) Left Ventricular End 32.3 mL Systolic Volume by Teichholz Method (test code = 0778198) Left Ventricular End 88.3 mL Diastolic Volume by Teichholz Method (test code = 6676951) IVS (test code = 1.03 cm 2678498469) LVPWD (test code = 1.02 cm 0531009674) FS (test code = 34 % 8007835320) BSA (test code = 1.78 m2 2620528876) PW (test code = 1.02 cm 0.6-1.3 9667854934) EF - 2D (test code = 63.50 % 09253038) Interventricular Septum 1.03 cm Diastolic Thickness by 2D (test code = 1868939) LAV(MOD-sp4) (test code 45.10 mL = 8673065176) LA Volume Index (BP) 28.7 mL/m2 (test code = 6988384773) LA volume (BP) (test 50.9 mL code = 2723607164) LAV(MOD-sp2) (test code 46.70 mL = 7333501798) A2C EF (test code = 61.10 % 8599339981) EF(sp2-el) (test code = 60.20 % 8435315587) SV(MOD-sp2) (test code = 32.80 mL 4234044489) LV Diastolic Volume (BP) 55.5 mL (test code = 4646599500) A4C EF (test code = 67.80 % 8448504387) EF(MOD-bp) (test code = 64.80 % 0461116698) EF(sp4-el) (test code = 69.10 % 5572129097) LV Systolic Volume (BP) 19.5 mL (test code = 4351435877) SV(MOD-bp) (test code = 36.00 mL 8263228185) SV(MOD-sp4) (test code = 38.50 mL 7614903082) SV(sp4-el) (test code = 40.30 mL 2852914317) EF (test code = 0179929991) Left Ventricular Stroke 36.0 mL Volume by 2-D Biplane-MOD (test code = 7106374) LV Diastolic Volume 31.2 mL/m2 Index (BP) (test code = 6416989990) LV Systolic Volume Index 11.0 mL/m2 (BP) (test code = 9313493949) Radiology Study observation (narrative) (test code = 73661-1) CLIFF (test code = CLIFF) ?Left?Ventricle: Left ventricle size is normal. Normal wall thickness. Ventricular mass is normal. Normal wall motion. Normal systolic function with a visually estimated EF of 60 - 65%. ?Right?Ventricle: Right ventricle size is normal. Normal systolic function. ?Focused study Alexy Ayoub MD Left VentricleLeft ventricle size is normal. Normal wall thickness. Ventricular mass is normal. Normal wall motion. Normal systolic function with a visually estimated EF of 60 - 65%. Unable to assess diastolic function.Right VentricleRight ventricle size is normal. Normal systolic function.Left AtriumLeft atrium size is normal.Right AtriumRight atrium size is normal.IVC/SVCIVC diameter is less than or equal to 21 mm and decreases greater than 50% during inspiration; therefore the estimated right atrial pressure is normal (~0-5 mmHg). SVC was not assessed.Mitral ValveMitral valve structure is normal. No stenosis.Tricuspid ValveTricuspid valve structure is normal. No stenosis.Aortic ValveAortic valve structure is normal. No evidence of aortic stenosis.Pulmonic ValveNot well visualized.Ascending AortaNormal sized sinus of Valsalva.PericardiumT he pericardium is normal. No pericardial effusion.Study DetailsStudy quality was adequate. A limited echocardiogram was performed using 2D, color flow Doppler and spectral Doppler. The apical, parasternal and subcostal views were obtained. [facility] GLUCOSE (AUTOMATED)2022-05-24 18:33:49 Test Item Value Reference Range Interpretation Comments POCT GLU (test code = 4455184742) 73 mg/dL 70-110 Lab Interpretation (test code = Normal 78877-0) [facility] GLUCOSE (AUTOMATED)2022-05-24 18:33:49 Test Item Value Reference Range Interpretation Comments POCT GLU (test code = [id number]) 66 mg/dL 70-110 L Lab Interpretation (test code = Abnormal 50917-2) [facility] GLUCOSE (AUTOMATED)2022-05-24 18:33:49 Test Item Value Reference Range Interpretation Comments POCT GLU (test code = 0045704155) 58 mg/dL 70-110 L Lab Interpretation (test code = Abnormal 07619-5) [facility] GLUCOSE (AUTOMATED)2022-05-24 15:03:34 Test Item Value Reference Range Interpretation Comments POCT GLU (test code = 2799082534) 256 mg/dL 70-110 H Lab Interpretation (test code = Abnormal 10284-1) [facility] 06:31:44 Test Item Value Reference Range Interpretation Comments HGB A1C (test code = 8.1 % 4.0-5.7 H 4548-4) CLIFF (test code = CLIFF) Reference RangesNormal: <5.7%Prediabetes: 5.7 - 6.4%Diabetes: > 6.5% Lab Interpretation (test Abnormal code = 21186-1) [facility] [id number] 02:31:08 Test Item Value Reference Interpretation Comments Range TROPONIN I (test 0.055 ng/mL See_Comment H [Automated code = 9401147913) message] The system which generated this result transmitted reference range : <=0.034. The reference range was not used to interpret this result as normal/abnormal . CLIFF (test code = Reference (Normal) CLIFF) Range (defined by the 99th percentile reference limit): <= 0.034 ng/mL Note: Cardiac troponin begins to rise 3-4 hours after the onset of ischemia. Repeat in 4-6 hours if the sample was drawn within 3-4 hours of the onset of the symptom and found normal. Diagnosis of myocardial injury is made with acute changes in cTn concentrations with at least one serial sample above the 99th percentile upper reference limit (URL), taken together with the patient's clinical presentation. Biotin has been reported to cause a negative bias, interpret results relative to patient's use of biotin. Lab Interpretation Abnormal (test code = 00163-4) [facility] [id number] 02:06:05 Test Item Value Reference Range Interpretation Comments APTT Patient (test code = See_Comment [ Automated message] 3173-2) The system [employer] generated this result transmitted ref erence range: 26 - 36 Seconds. The re ference range was not u sed to interpret this result as normal/abnor mal. Lab Interpretation (test Normal code = 18823-1) [facility] / [id number] 02:06:05 Test Item Value Reference Range Interpretation Comments PROTIME PATIENT (test See_Comment [Auto mated message] code = 5964-2) The system [employer] generated this result transmitted ref erence range: 10.1 - 1 2.6 Seconds. The re ference range was not u sed to interpret this result as normal/abnor mal. INR (test code = 6301-6) Nor mal INR <1.1; Warfarin Therap eutic range 2.0 to 3. 0 or 2.5 to 3.5, dep ending upon the indica tions. Lab Interpretation (test Normal code = 58425-9) [facility]OL[facility] (57101)2022-05-24 01:57:43 Test Item Value Reference Range Interpretation Comments NA (test code = 140 mmol/L 135-145 2110327639) K (test code = 4.1 mmol/L 3.5-5.0 2758307342) CL (test code = 105 mmol/L 98-108 5286524790) CO2 TOTAL (test code = 26 mmol/L 23-31 1249450613) AGAP (test code = 2-16 6810400768) BUN (test code = 9 mg/dL 7-23 8464670002) GLUCOSE (test code = 146 mg/dL 70-110 H 9327110418) CREATININE (test code = 0.77 mg/dL 0.60-1.25 2689879676) TOTAL BILI (test code = 0.5 mg/dL 0.1-1.1 9117961358) CALCIUM (test code = 8.4 mg/dL 8.6-10.6 L 3812346285) T PROTEIN (test code = 7.4 g/dL 6.3-8.2 1075615542) ALBUMIN (test code = 4.0 g/dL 3.5-5.0 0311961513) ALK PHOS (test code = 118 U/L 34-122 7400856734) ALTv (test code = 15 U/L 5-50 1742-6) AST(SGOT) (test code = 25 U/L 13-40 4204704458) eGFR (test code = mL/min/1.73m2 0378205142) CLIFF (test code = CLIFF) Association of [...] tests). Lab Interpretation Abnormal (test code = 44019-7) [facility] 01:57:43 Test Item Value Reference Range Interpretation Comments LIPASE (test code = 1922872631) 26 U/L 0-220 Lab Interpretation (test code = Normal 93889-0) [facility]CB WITH [id number] 01:52:26 Test Item Value Reference Range Interpretation Comments WBC (test code = See_Comment [Automated 6290-2) message] The sy stem which generated this result transmitted reference range : 4.20 - 10.70 10*3/?L. The reference range was not used to interpret this result as normal/abnormal . RBC (test code = See_Comment [Automated 429-8) message] The sy stem which generated this result transmitted reference range : 4.26 - 5.52 10*6/?L. The reference range was not used to interpret this result as normal/abnormal . HGB (test code = 14.3 g/dL 12.2-16.4 718-7) HCT (test code = 43.8 % 38.4-49.3 4544-3) MCV (test code = 89.9 fL 81.7-95.6 787-2) MCH (test code = 29.4 pg 26.1-32.7 785-6) MCHC (test code = 32.6 g/dL 31.2-35.0 786-4) RDW-SD (test code = 47.8 fL 38.5-51.6 55780-9) RDW-CV (test code = 14.4 % 12.1-15.4 788-0) PLT (test code = See_Comment H [Automated 307-3) message] The sy stem which generated this result transmitted reference range : 150 - 328 10*3/ ?L. The reference r ambrosio was not used to interpret this result as normal/abnormal . MPV (test code = 9.7 fL 9.8-13.0 L 21976-5) NRBC/100 WBC (test See_Comment [Automat ed code = 0001533110) message] The system which generated this result transmitted reference range : 0.0 - 10.0 /100 WBCs. The refer ence range was not u sed to interpret th is result as normal/abnormal . NRBC x10^3 (test code See_Comment [Auto mated = 6702089148) message] The s ystem which generated this result transmitted reference range : 10*3/?L. The reference range was not used to interpret this result as normal/abnormal . GRAN MAT (NEUT) % 63.7 % (test code = 770-8) IMM GRAN % (test code 0.50 % = 2273402753) LYMPH % (test code = 24.8 % 736-9) MONO % (test code = 8.6 % 5905-5) EOS % (test code = 1.1 % 713-8) BASO % (test code = 1.3 % 706-2) GRAN MAT x10^3(ANC) 6.10 10*3/uL 1.99-6.95 (test code = 6326875657) IMM GRAN x10^3 (test 0.05 10*3/uL 0.00-0.06 code = 1008540576) LYMPH x10^3 (test code 2.38 10*3/uL 1.09-3.23 = 731-0) MONO x10^3 (test code 0.82 10*3/uL 0.36-1.02 = 742-7) EOS x10^3 (test code = 0.11 10*3/uL 0.06-0.53 711-2) BASO x10^3 (test code 0.12 10*3/uL 0.01-0.09 H = 704-7) Lab Interpretation Abnormal (test code = 71685-3) [facility] GLUCOSE (AUTOMATED)2022-05-24 01:25:07 Test Item Value Reference Range Interpretation Comments POCT GLU (test code = 5419976445) 151 mg/dL 70-110 H Lab Interpretation (test code = Abnormal 85273-5) [facility] GLUCOSE (AUTOMATED)2022-05-07 19:05:03 Test Item Value Reference Range Interpretation Comments POCT GLU (test code = 5886130627) 202 mg/dL 70-110 H Lab Interpretation (test code = Abnormal 94099-4) [facility] GLUCOSE (AUTOMATED)2022-05-07 19:05:03 Test Item Value Reference Range Interpretation Comments POCT GLU (test code = 6450582405) 202 mg/dL 70-110 H Lab Interpretation (test code = Abnormal 21030-6) [facility] GLUCOSE (AUTOMATED)2022-05-07 14:57:00 Test Item Value Reference Range Interpretation Comments POCT GLU (test code = 4980812238) 388 mg/dL 70-110 H Lab Interpretation (test code = Abnormal 49762-4) [facility] GLUCOSE (AUTOMATED)2022-05-07 14:57:00 Test Item Value Reference Range Interpretation Comments POCT GLU (test code = 6435412053) 388 mg/dL 70-110 H Lab Interpretation (test code = Abnormal 38095-2) [facility] GLUCOSE (AUTOMATED)2022-05-07 10:14:38 Test Item Value Reference Range Interpretation Comments POCT GLU (test code = 7085277757) 258 mg/dL 70-110 H Lab Interpretation (test code = Abnormal 11769-9) [facility] GLUCOSE (AUTOMATED)2022-05-07 10:14:38 Test Item Value Reference Range Interpretation Comments POCT GLU (test code = 1101836452) 258 mg/dL 70-110 H Lab Interpretation (test code = Abnormal 56633-5) [facility] METABOLIC PANEL (NA, K, CL, CO2, GLUCOSE, BUN, CREATININE, CA)2022-05-07 09:09:31 Test Item Value Reference Range Interpretation Comments NA (test code = 131 mmol/L 135-145 L 0136659918) K (test code = 4.0 mmol/L 3.5-5.0 0953077273) CL (test code = 101 mmol/L 98-108 2584496170) CO2 TOTAL (test code = 22 mmol/L 23-31 L 9537040980) AGAP (test code = 2-16 1820778162) BUN (test code = 11 mg/dL 7-23 9239775080) GLUCOSE (test code = 411 mg/dL 70-110 H 8483367523) CREATININE (test code = 0.67 mg/dL 0.60-1.25 9455961201) CALCIUM (test code = 8.0 mg/dL 8.6-10.6 L 4184859124) eGFR (test code = mL/min/1.73m2 6307533835) CLIFF (test code = CLIFF) Association of [...] tests). Lab Interpretation Abnormal (test code = 96675-8) [facility] Test Item Value Reference Range Interpretation Comments MAGNESIUM (test code = 9235718742) 1.4 mg/dL 1.7-2.4 L Lab Interpretation (test code = Abnormal 34029-0) [facility] (NA, K, CL, CO2, GLUCOSE, BUN, CREATININE, CA)2022-05-07 09:09:31 Test Item Value Reference Range Interpretation Comments NA (test code = 131 mmol/L 135-145 L 6418800296) K (test code = 4.0 mmol/L 3.5-5.0 3609218930) CL (test code = 101 mmol/L 98-108 5828758754) CO2 TOTAL (test code = 22 mmol/L 23-31 L 3856308922) AGAP (test code = 2-16 4913142766) BUN (test code = 11 mg/dL 7-23 7864860992) GLUCOSE (test code = 411 mg/dL 70-110 H 6549838305) CREATININE (test code = 0.67 mg/dL 0.60-1.25 8916632014) CALCIUM (test code = 8.0 mg/dL 8.6-10.6 L 1951147747) eGFR (test code = mL/min/1.73m2 4662563422) CLIFF (test code = CLIFF) Association of [...] tests). Lab Interpretation Abnormal (test code = 23356-6) [facility] 09:09:31 Test Item Value Reference Range Interpretation Comments MAGNESIUM (test code = 4512885271) 1.4 mg/dL 1.7-2.4 L Lab Interpretation (test code = Abnormal 41756-6) [facility] WITH [id number] 08:08:44 Test Item Value Reference Range Interpretation Comments WBC (test code = See_Comment [Automated 9990-2) message] The sy stem which generated this result transmitted reference range : 4.20 - 10.70 10*3/?L. The reference range was not used to interpret this result as normal/abnormal . RBC (test code = See_Comment L [Automated 869-8) message] The sy stem which generated this [...] RDW-SD (test code = 44.6 fL 38.5-51.6 22563-8) RDW-CV (test code = 13.8 % 12.1-15.4 788-0) PLT (test code = See_Comment H [Automated 777-3) message] The sy stem which generated this result transmitted reference range : 150 - 328 10*3/ ?L. The reference r ambrosio was not used to interpret this result as normal/abnormal . MPV (test code = 9.5 fL 9.8-13.0 L 44471-5) NRBC/100 WBC (test See_Comment [Automat ed code = 8612519960) message] The system which generated this result transmitted reference range : 0.0 - 10.0 /100 WBCs. The refer ence range was not u sed to interpret th is result as normal/abnormal . NRBC x10^3 (test code See_Comment [Auto mated = 0646658386) message] The s ystem which generated this result transmitted reference range : 10*3/?L. The reference range was not used to interpret this result as normal/abnormal . GRAN MAT (NEUT) % 67.6 % (test code = 770-8) IMM GRAN % (test code 0.20 % = 1770262501) LYMPH % (test code = 20.2 % 736-9) MONO % (test code = 5.6 % 5905-5) EOS % (test code = 5.4 % 713-8) BASO % (test code = 1.0 % 706-2) GRAN MAT x10^3(ANC) 6.11 10*3/uL 1.99-6.95 (test code = 3836267593) IMM GRAN x10^3 (test 0.00-0.06 code = 4183636523) LYMPH x10^3 (test code 1.83 10*3/uL 1.09-3.23 = 731-0) MONO x10^3 (test code 0.51 10*3/uL 0.36-1.02 = 742-7) EOS x10^3 (test code = 0.49 10*3/uL 0.06-0.53 711-2) BASO x10^3 (test code 0.09 10*3/uL 0.01-0.09 = 704-7) Lab Interpretation Abnormal (test code = 10509-8) [facility] WITH [id number] 08:08:44 Test Item Value Reference Range Interpretation Comments WBC (test code = See_Comment [Automated 6935-2) message] The sy stem which generated this [...] RDW-SD (test code = 44.6 fL 38.5-51.6 41251-9) RDW-CV (test code = 13.8 % 12.1-15.4 788-0) PLT (test code = See_Comment H [Automated 777-3) message] The sy stem which generated this result transmitted reference range : 150 - 328 10*3/ ?L. The reference r ambrosio was not used to interpret this result as normal/abnormal . MPV (test code = 9.5 fL 9.8-13.0 L 48541-7) NRBC/100 WBC (test See_Comment [Automat ed code = 9516653006) message] The system which generated this result transmitted reference range : 0.0 - 10.0 /100 WBCs. The refer ence range was not u sed to interpret th is result as normal/abnormal . NRBC x10^3 (test code See_Comment [Auto mated = 9108407699) message] The s ystem which generated this result transmitted reference range : 10*3/?L. The reference range was not used to interpret this result as normal/abnormal . GRAN MAT (NEUT) % 67.6 % (test code = 770-8) IMM GRAN % (test code 0.20 % = 5251515140) LYMPH % (test code = 20.2 % 736-9) MONO % (test code = 5.6 % 5905-5) EOS % (test code = 5.4 % 713-8) BASO % (test code = 1.0 % 706-2) GRAN MAT x10^3(ANC) 6.11 10*3/uL 1.99-6.95 (test code = 7878894586) IMM GRAN x10^3 (test 0.00-0.06 code = 3070532204) LYMPH x10^3 (test code 1.83 10*3/uL 1.09-3.23 = 731-0) MONO x10^3 (test code 0.51 10*3/uL 0.36-1.02 = 742-7) EOS x10^3 (test code = 0.49 10*3/uL 0.06-0.53 711-2) BASO x10^3 (test code 0.09 10*3/uL 0.01-0.09 = 704-7) Lab Interpretation Abnormal (test code = 54016-9) [facility] GLUCOSE (AUTOMATED)2022-05-07 07:33:53 Test Item Value Reference Range Interpretation Comments POCT GLU (test code = 1815162408) 452 mg/dL 70-110 HH Lab Interpretation (test code = Abnormal 47431-9) [facility] GLUCOSE (AUTOMATED)2022-05-07 07:33:53 Test Item Value Reference Range Interpretation Comments POCT GLU (test code = 0469725044) 452 mg/dL 70-110 HH Lab Interpretation (test code = Abnormal 19527-5) [facility] GLUCOSE (AUTOMATED)2022-05-07 01:27:48 Test Item Value Reference Range Interpretation Comments POCT GLU (test code = 1891304320) 78 mg/dL 70-110 Lab Interpretation (test code = Normal 10536-5) [facility] GLUCOSE (AUTOMATED)2022-05-07 01:27:48 Test Item Value Reference Range Interpretation Comments POCT GLU (test code = 1237382741) 78 mg/dL 70-110 Lab Interpretation (test code = Normal 21639-8) [facility] GLUCOSE (AUTOMATED)2022-05-07 01:03:27 Test Item Value Reference Range Interpretation Comments POCT GLU (test code = 8340089742) 100 mg/dL 70-110 Lab Interpretation (test code = Normal 52900-7) [facility] GLUCOSE (AUTOMATED)2022-05-07 01:03:27 Test Item Value Reference Range Interpretation Comments POCT GLU (test code = 2924350408) 100 mg/dL 70-110 Lab Interpretation (test code = Normal 34810-4) [facility] GLUCOSE (AUTOMATED)2022-05-06 21:59:39 Test Item Value Reference Range Interpretation Comments POCT GLU (test code = 5196412614) 329 mg/dL 70-110 H Lab Interpretation (test code = Abnormal 74866-7) [facility] GLUCOSE (AUTOMATED)2022-05-06 21:59:39 Test Item Value Reference Range Interpretation Comments POCT GLU (test code = 7147046559) 329 mg/dL 70-110 H Lab Interpretation (test code = Abnormal 72380-8) [facility] ACT LOW [id number] 18:07:40 Test Item Value Reference Range Interpretation Comments ACTLR (test code = See_Comment H [Automat ed message] 6912396121) The system [employer] generated this result transmitted ref erence range: 89 - 169 Seconds. The reference range was not used to int erpret this result as normal/abnormal . Lab Interpretation (test Abnormal code = 86969-2) [facility] ACT LOW [id number] 18:07:40 Test Item Value Reference Range Interpretation Comments ACTLR (test code = See_Comment H [Automat ed message] 9556476865) The system [employer] generated this result transmitted ref erence range: 89 - 169 Seconds. The reference range was not used to int erpret this result as normal/abnormal . Lab Interpretation (test Abnormal code = 29035-6) [facility] ACT LOW [id number] 17:22:23 Test Item Value Reference Range Interpretation Comments ACTLR (test code = See_Comment H [Automat ed message] 5311538005) The system [employer] generated this result transmitted ref erence range: 89 - 169 Seconds. The reference range was not used to int erpret this result as normal/abnormal . Lab Interpretation (test Abnormal code = 41715-2) [facility] ACT LOW [id number] 17:22:23 Test Item Value Reference Range Interpretation Comments ACTLR (test code = See_Comment H [Automat ed message] 3879261122) The system [employer] generated this result transmitted ref erence range: 89 - 169 Seconds. The reference range was not used to int erpret this result as normal/abnormal . Lab Interpretation (test Abnormal code = 89709-7) [facility] GLUCOSE (AUTOMATED)2022-05-06 14:16:02 Test Item Value Reference Range Interpretation Comments POCT GLU (test code = 7679657406) 320 mg/dL 70-110 H Lab Interpretation (test code = Abnormal 33298-3) [facility] GLUCOSE (AUTOMATED)2022-05-06 14:16:02 Test Item Value Reference Range Interpretation Comments POCT GLU (test code = 5893026542) 320 mg/dL 70-110 H Lab Interpretation (test code = Abnormal 93636-1) [facility] GLUCOSE (AUTOMATED)2022-05-06 12:33:32 Test Item Value Reference Range Interpretation Comments POCT GLU (test code = 9791618989) 336 mg/dL 70-110 H Lab Interpretation (test code = Abnormal 73234-8) [facility] GLUCOSE (AUTOMATED)2022-05-06 12:33:32 Test Item Value Reference Range Interpretation Comments POCT GLU (test code = 8698992400) 336 mg/dL 70-110 H Lab Interpretation (test code = Abnormal 92349-0) [facility] GLUCOSE (AUTOMATED)2022-05-06 10:26:29 Test Item Value Reference Range Interpretation Comments POCT GLU (test code = 1765604115) 363 mg/dL 70-110 H Lab Interpretation (test code = Abnormal 88831-1) [facility] GLUCOSE (AUTOMATED)2022-05-06 10:26:29 Test Item Value Reference Range Interpretation Comments POCT GLU (test code = 4219395176) 363 mg/dL 70-110 H Lab Interpretation (test code = Abnormal 00529-8) [facility] GLUCOSE (AUTOMATED)2022-05-06 05:36:17 Test Item Value Reference Range Interpretation Comments POCT GLU (test code = 9968719677) 537 mg/dL 70-110 HH Lab Interpretation (test code = Abnormal 99655-7) [facility] GLUCOSE (AUTOMATED)2022-05-06 05:36:17 Test Item Value Reference Range Interpretation Comments POCT GLU (test code = 0857618528) 537 mg/dL 70-110 HH Lab Interpretation (test code = Abnormal 10462-8) [facility] GLUCOSE (AUTOMATED)2022-05-06 04:17:21 Test Item Value Reference Range Interpretation Comments POCT GLU (test code = 1621236765) 445 mg/dL 70-110 H Lab Interpretation (test code = Abnormal 06480-6) [facility] GLUCOSE (AUTOMATED)2022-05-06 04:17:21 Test Item Value Reference Range Interpretation Comments POCT GLU (test code = 3643680333) 445 mg/dL 70-110 H Lab Interpretation (test code = Abnormal 53777-4) [facility] GLUCOSE (AUTOMATED)2022-05-05 23:14:16 Test Item Value Reference Range Interpretation Comments POCT GLU (test code = 6586618980) 433 mg/dL 70-110 H Lab Interpretation (test code = Abnormal 19992-5) [facility] GLUCOSE (AUTOMATED)2022-05-05 23:14:16 Test Item Value Reference Range Interpretation Comments POCT GLU (test code = 5425873549) 433 mg/dL 70-110 H Lab Interpretation (test code = Abnormal 01112-1) [facility] GLUCOSE (AUTOMATED)2022-05-05 19:22:27 Test Item Value Reference Range Interpretation Comments POCT GLU (test code = 8656852407) 304 mg/dL 70-110 H Lab Interpretation (test code = Abnormal 97576-2) [facility] GLUCOSE (AUTOMATED)2022-05-05 19:22:27 Test Item Value Reference Range Interpretation Comments POCT GLU (test code = 9867173291) 304 mg/dL 70-110 H Lab Interpretation (test code = Abnormal 21611-5) [facility] GLUCOSE (AUTOMATED)2022-04-21 18:58:41 Test Item Value Reference Range Interpretation Comments POCT GLU (test code = 8522466081) 138 mg/dL 70-110 H Lab Interpretation (test code = Abnormal 23056-0) [facility] GLUCOSE (AUTOMATED)2022-04-21 16:48:06 Test Item Value Reference Range Interpretation Comments POCT GLU (test code = 6037569465) 72 mg/dL 70-110 Lab Interpretation (test code = Normal 57074-6) [facility] GLUCOSE (AUTOMATED)2022-04-21 14:00:44 Test Item Value Reference Range Interpretation Comments POCT GLU (test code = 0778331892) 441 mg/dL 70-110 H Lab Interpretation (test code = Abnormal 62171-4) [facility] GLUCOSE (AUTOMATED)2022-04-21 06:42:03 Test Item Value Reference Range Interpretation Comments POCT GLU (test code = 7148529670) 259 mg/dL 70-110 H Lab Interpretation (test code = Abnormal 00912-5) [facility] GLUCOSE (AUTOMATED)2022-04-21 02:56:54 Test Item Value Reference Range Interpretation Comments POCT GLU (test code = 0180358872) 250 mg/dL 70-110 H Lab Interpretation (test code = Abnormal 16350-7) [facility] GLUCOSE (AUTOMATED)2022-04-20 22:47:00 Test Item Value Reference Range Interpretation Comments POCT GLU (test code = 8530745174) 381 mg/dL 70-110 H Lab Interpretation (test code = Abnormal 68378-3) [facility] GLUCOSE (AUTOMATED)2022-04-20 22:47:00 Test Item Value Reference Range Interpretation Comments POCT GLU (test code = 5990100766) 381 mg/dL 70-110 H Lab Interpretation (test code = Abnormal 77772-8) [facility] 22:25:22 Test Item Value Reference Range Interpretation Comments Height (test code = in 8540580517) Weight (test code = lbs 7008469443) Systolic BP (test code = mmHg 3664273049) Diastolic BP (test code mmHg = 2392108996) Heart Rate (test code = bpm 1803605784) LVOT stroke volume (test 49.00 cm3 code = 6250684512) EF(Teich) (test code = 36.90 % 0955816060) LVIDD (test code = 3.60 cm 5626149761) LVIDS (test code = 3.00 cm 1038703268) Left Ventricular End 34.5 mL Systolic Volume by Teichholz Method (test code = 4168310) Left Ventricular End 54.6 mL Diastolic Volume by Teichholz Method (test code = 0394732) IVS (test code = 1.34 cm 9475219017) LVPWD (test code = 1.18 cm 3058865677) LVOT diameter (test code 2.15 cm = 4514823286) LVOT area (test code = 3.60 cm2 8418575241) FS (test code = 17 % 1561425070) MV Peak E Ezekiel (test code 44.9 cm/s = 1343564724) MV Peak A Ezekiel (test code 66.7 cm/s = 8961459304) E/A ratio (test code = ratio 9328127041) E wave decelartion time 0.15 s (test code = 0166016462) LVOT peak ezekiel (test code 97.4 cm/s = 6962253863) LVOT mn grad (test code mmHg = 9379916325) BSA (test code = 1.69 m2 8872789808) LA size (test code = 3.6 cm 7304187745) LAV(MOD-sp4) (test code 40.20 mL = 8044768813) Tapse (test code = 1.88 cm 6953804888) AV LVOT peak gradient mmHg (test code = 3818567419) LVOT peak VTI (test code 13.5 cm = 3993443636) LV V1 mean (test code = 63.30 cm/s 8063844697) Ao root diam (test code 3.60 cm = 5438563635) Aortic root (test code = 3.6 cm 8714662469) Ao root annulus (test 3.6 cm code = 0208643426) PW (test code = 1.18 cm 0.6-1.4 8586791715) EF - 2D (test code = 36.90 % 63399292) Interventricular Septum 1.34 cm Diastolic Thickness by 2D (test code = 9008960) LV GLS Endo Peak A2C -9.30 % () (test code = 2295213643) LV GLS Endo Peak A3C -9.70 % () (test code = 2039261443) LV GLS Endo Peak A4C -9.40 % () (test code = 8983644303) LV GLS Endo Peak Avg -9.50 % () (test code = 0875295014) TASV (test code = 10.8 cm/s 6313511792) LA Volume Index (BP) 23.9 mL/m2 (test code = 0823138894) LA volume (BP) (test 40.4 mL code = 2386065283) LAV(MOD-sp2) (test code 37.00 mL = 1505808698) A4C EF (test code = 48.20 % 3979866278) EF(sp4-el) (test code = 52.70 % 4511302752) SV(MOD-sp4) (test code = 39.00 mL 1684803833) SV(sp4-el) (test code = 43.50 mL 1964077503) LV Diastolic Volume (BP) 70.5 mL (test code = 6446655052) A2C EF (test code = 52.40 % 0480266181) EF(MOD-bp) (test code = 50.90 % 4824255160) EF(sp2-el) (test code = 53.20 % 3084923899) LV Systolic Volume (BP) 34.6 mL (test code = 9483694973) SV(MOD-bp) (test code = 35.90 mL 0906133256) SV(MOD-sp2) (test code = 31.40 mL 2308965186) EF (test code = 6190981313) Left Ventricular Stroke 35.9 mL Volume by 2-D Biplane-MOD (test code = 4728790) LV Diastolic Volume 41.7 mL/m2 Index (BP) (test code = 1717048790) LV Systolic Volume Index 20.5 mL/m2 (BP) (test code = 7572207222) Radiology Study observation (narrative) (test code = 80702-4) CLIFF (test code = CLIFF) ?Left?Ventricle: Left [...] color flow Doppler, spectral Doppler and strain. [facility]:25:22 Test Item Value Reference Range Interpretation Comments Height (test code = in 9702487666) Weight (test code = lbs 4679323775) Systolic BP (test code = mmHg 9702092690) Diastolic BP (test code mmHg = 4633066909) Heart Rate (test code = bpm 6445185916) LVOT stroke volume (test 49.00 cm3 code = 3393336827) EF(Teich) (test code = 36.90 % 4361261859) LVIDD (test code = 3.60 cm 1604795584) LVIDS (test code = 3.00 cm 8425256304) Left Ventricular End 34.5 mL Systolic Volume by Teichholz Method (test code = 1950064) Left Ventricular End 54.6 mL Diastolic Volume by Teichholz Method (test code = 3631135) IVS (test code = 1.34 cm 2220310043) LVPWD (test code = 1.18 cm 6753466201) LVOT diameter (test code 2.15 cm = 2664775742) LVOT area (test code = 3.60 cm2 9059506992) FS (test code = 17 % 5311397898) MV Peak E Ezekiel (test code 44.9 cm/s = 4110250912) MV Peak A Ezekiel (test code 66.7 cm/s = 7099526729) E/A ratio (test code = ratio 9859479317) E wave decelartion time 0.15 s (test code = 4868678324) LVOT peak ezekiel (test code 97.4 cm/s = 9010795350) LVOT mn grad (test code mmHg = 2640406698) BSA (test code = 1.69 m2 3826931440) LA size (test code = 3.6 cm 1018310285) LAV(MOD-sp4) (test code 40.20 mL = 7648819593) Tapse (test code = 1.88 cm 9876043890) AV LVOT peak gradient mmHg (test code = 6003240343) LVOT peak VTI (test code 13.5 cm = 9303675587) LV V1 mean (test code = 63.30 cm/s 2802199774) Ao root diam (test code 3.60 cm = 0668539437) Aortic root (test code = 3.6 cm 4278075108) Ao root annulus (test 3.6 cm code = 4293576548) PW (test code = 1.18 cm 0.6-1.7 0305559592) EF - 2D (test code = 36.90 % 15930760) Interventricular Septum 1.34 cm Diastolic Thickness by 2D (test code = 8684298) LV GLS Endo Peak A2C -9.30 % () (test code = 3119108940) LV GLS Endo Peak A3C -9.70 % () (test code = 4207038391) LV GLS Endo Peak A4C -9.40 % () (test code = 3474914216) LV GLS Endo Peak Avg -9.50 % () (test code = 8959425964) TASV (test code = 10.8 cm/s 7735702665) LA Volume Index (BP) 23.9 mL/m2 (test code = 0908821874) LA volume (BP) (test 40.4 mL code = 2860412033) LAV(MOD-sp2) (test code 37.00 mL = 9438372216) A4C EF (test code = 48.20 % 9620687862) EF(sp4-el) (test code = 52.70 % 3390430308) SV(MOD-sp4) (test code = 39.00 mL 3554899866) SV(sp4-el) (test code = 43.50 mL 2014363006) LV Diastolic Volume (BP) 70.5 mL (test code = 1155963683) A2C EF (test code = 52.40 % 8198534309) EF(MOD-bp) (test code = 50.90 % 6259987287) EF(sp2-el) (test code = 53.20 % 1090844381) LV Systolic Volume (BP) 34.6 mL (test code = 6860589130) SV(MOD-bp) (test code = 35.90 mL 4410941801) SV(MOD-sp2) (test code = 31.40 mL 7467809557) EF (test code = 6358951799) Left Ventricular Stroke 35.9 mL Volume by 2-D Biplane-MOD (test code = 7354226) LV Diastolic Volume 41.7 mL/m2 Index (BP) (test code = 0199120077) LV Systolic Volume Index 20.5 mL/m2 (BP) (test code = 8932531616) Radiology Study observation (narrative) (test code = 06570-1) CLIFF (test code = CLIFF) ?Left?Ventricle: Left [...] color flow Doppler, spectral Doppler and strain. [facility] GLUCOSE (AUTOMATED)2022-04-20 18:19:52 Test Item Value Reference Range Interpretation Comments POCT GLU (test code = 7512503511) 204 mg/dL 70-110 H Lab Interpretation (test code = Abnormal 88892-6) [facility] GLUCOSE (AUTOMATED)2022-04-20 18:19:52 Test Item Value Reference Range Interpretation Comments POCT GLU (test code = 6381269318) 204 mg/dL 70-110 H Lab Interpretation (test code = Abnormal 99026-4) [facility] GLUCOSE (AUTOMATED)2022-04-20 14:18:10 Test Item Value Reference Range Interpretation Comments POCT GLU (test code = 2322757857) 454 mg/dL 70-110 HH Lab Interpretation (test code = Abnormal 33555-3) [facility] 14:18:10 Test Item Value Reference Range Interpretation Comments POCT GLU (test code = 8812832366) 454 mg/dL 70-110 HH Lab Interpretation (test code = Abnormal 67938-5) [facility]20 Test Item Value Reference Range Interpretation Comments POCT GLU (test code = 5540155303) 240 mg/dL 70-110 H Lab Interpretation (test code = Abnormal 93459-4) [facility] GLUCOSE (AUTOMATED)2022-04-20 05:51:20 Test Item Value Reference Range Interpretation Comments POCT GLU (test code = 7024293784) 240 mg/dL 70-110 H Lab Interpretation (test code = Abnormal 27901-9) [facility] 02:48:28 Test Item Value Reference Range Interpretation Comments POCT GLU (test code = 8708285850) 389 mg/dL 70-110 H Lab Interpretation (test code = Abnormal 91895-4) [facility] GLUCOSE (AUTOMATED)2022-04-20 02:48:28 Test Item Value Reference Range Interpretation Comments POCT GLU (test code = 9484867560) 389 mg/dL 70-110 H Lab Interpretation (test code = Abnormal 88121-7) [facility] 00:10:29 Test Item Value Reference Range Interpretation Comments POCT GLU (test code = 7458675217) 549 mg/dL 70-110 HH Lab Interpretation (test code = Abnormal 67089-9) [facility] 00:10:29 Test Item Value Reference Range Interpretation Comments POCT GLU (test code = 9230295037) 549 mg/dL 70-110 HH Lab Interpretation (test code = Abnormal 79150-7) [facility] GLUCOSE (AUTOMATED)2022-04-19 15:25:27 Test Item Value Reference Range Interpretation Comments POCT GLU (test code = 3152423763) 149 mg/dL 70-110 H Lab Interpretation (test code = Abnormal 95475-8) [facility] 15:25:27 Test Item Value Reference Range Interpretation Comments POCT GLU (test code = 3986583838) 149 mg/dL 70-110 H Lab Interpretation (test code = Abnormal 31335-9) [facility] GLUCOSE (AUTOMATED)2022-04-19 14:28:26 Test Item Value Reference Range Interpretation Comments POCT GLU (test code = 0059536110) 62 mg/dL 70-110 L Lab Interpretation (test code = Abnormal 90793-5) [facility] GLUCOSE (AUTOMATED)2022-04-19 14:28:26 Test Item Value Reference Range Interpretation Comments POCT GLU (test code = 1985203987) 62 mg/dL 70-110 L Lab Interpretation (test code = Abnormal 93665-0) [facility] GLUCOSE (AUTOMATED)2022-04-19 10:17:31 Test Item Value Reference Range Interpretation Comments POCT GLU (test code = 6333473497) 347 mg/dL 70-110 H Lab Interpretation (test code = Abnormal 55066-3) [facility] GLUCOSE (AUTOMATED)2022-04-19 10:17:31 Test Item Value Reference Range Interpretation Comments POCT GLU (test code = 3362004023) 347 mg/dL 70-110 H Lab Interpretation (test code = Abnormal 93897-1) [facility] GLUCOSE (AUTOMATED)2022-04-19 06:21:59 Test Item Value Reference Range Interpretation Comments POCT GLU (test code = 3761030788) 102 mg/dL 70-110 Lab Interpretation (test code = Normal 40673-4) [facility] GLUCOSE (AUTOMATED)2022-04-19 06:21:59 Test Item Value Reference Range Interpretation Comments POCT GLU (test code = 9377689855) 102 mg/dL 70-110 Lab Interpretation (test code = Normal 65061-9) [facility] GLUCOSE (AUTOMATED)2022-04-19 03:10:41 Test Item Value Reference Range Interpretation Comments POCT GLU (test code = 7429974661) 218 mg/dL 70-110 H Lab Interpretation (test code = Abnormal 15075-2) [facility] GLUCOSE (AUTOMATED)2022-04-19 03:10:41 Test Item Value Reference Range Interpretation Comments POCT GLU (test code = 0941581595) 218 mg/dL 70-110 H Lab Interpretation (test code = Abnormal 35625-6) [facility] GLUCOSE (AUTOMATED)2022-04-19 00:09:01 Test Item Value Reference Range Interpretation Comments POCT GLU (test code = 3679011411) 589 mg/dL 70-110 HH Lab Interpretation (test code = Abnormal 22187-0) [facility] GLUCOSE (AUTOMATED)2022-04-19 00:09:01 Test Item Value Reference Range Interpretation Comments POCT GLU (test code = 3913934207) 589 mg/dL 70-110 HH Lab Interpretation (test code = Abnormal 81071-5) [facility] GLUCOSE (AUTOMATED)2022-04-18 22:35:43 Test Item Value Reference Range Interpretation Comments POCT GLU (test code = 1237373565) 570 mg/dL 70-110 HH Lab Interpretation (test code = Abnormal 13910-7) [facility] GLUCOSE (AUTOMATED)2022-04-18 22:35:43 Test Item Value Reference Range Interpretation Comments POCT GLU (test code = 7541218287) 570 mg/dL 70-110 HH Lab Interpretation (test code = Abnormal 61459-7) [facility] GLUCOSE (AUTOMATED)2022-04-18 17:19:47 Test Item Value Reference Range Interpretation Comments POCT GLU (test code = 5392426634) 229 mg/dL 70-110 H Lab Interpretation (test code = Abnormal 75694-7) [facility] GLUCOSE (AUTOMATED)2022-04-18 17:19:47 Test Item Value Reference Range Interpretation Comments POCT GLU (test code = 0703239554) 229 mg/dL 70-110 H Lab Interpretation (test code = Abnormal 07445-5) [facility] GLUCOSE (AUTOMATED)2022-04-18 14:45:24 Test Item Value Reference Range Interpretation Comments POCT GLU (test code = 2085111154) 143 mg/dL 70-110 H Lab Interpretation (test code = Abnormal 15295-6) [facility] GLUCOSE (AUTOMATED)2022-04-18 14:45:24 Test Item Value Reference Range Interpretation Comments POCT GLU (test code = 5119613898) 143 mg/dL 70-110 H Lab Interpretation (test code = Abnormal 48535-6) [facility] METABOLIC PANEL (NA, K, CL, CO2, GLUCOSE, BUN, CREATININE, CA)2022-04-18 11:14:46 Test Item Value Reference Range Interpretation Comments NA (test code = 135 mmol/L 135-145 2126865893) K (test code = 3.8 mmol/L 3.5-5.0 5164540380) CL (test code = 102 mmol/L 98-108 3411524217) CO2 TOTAL (test code = 26 mmol/L 23-31 0243350531) AGAP (test code = 2-16 3318395590) BUN (test code = 12 mg/dL 7-23 4728697518) GLUCOSE (test code = 246 mg/dL 70-110 H 8986698809) CREATININE (test code = 0.67 mg/dL 0.60-1.25 6161545265) CALCIUM (test code = 7.9 mg/dL 8.6-10.6 L 6373899034) eGFR (test code = mL/min/1.73m2 7025339147) CLIFF (test code = CLIFF) Association of [...] tests). Lab Interpretation Abnormal (test code = 26989-3) [facility]46 Test Item Value Reference Range Interpretation Comments MAGNESIUM (test code = 7562484488) 1.9 mg/dL 1.7-2.4 Lab Interpretation (test code = Normal 41090-7) [facility] (NA, K, CL, CO2, GLUCOSE, BUN, CREATININE, CA)2022-04-18 11:14:46 Test Item Value Reference Range Interpretation Comments NA (test code = 135 mmol/L 135-145 9826141822) K (test code = 3.8 mmol/L 3.5-5.0 1520151638) CL (test code = 102 mmol/L 98-108 1435808848) CO2 TOTAL (test code = 26 mmol/L 23-31 8992838939) AGAP (test code = 2-16 5621107808) BUN (test code = 12 mg/dL 7-23 6166950401) GLUCOSE (test code = 246 mg/dL 70-110 H 2105758167) CREATININE (test code = 0.67 mg/dL 0.60-1.25 0887486204) CALCIUM (test code = 7.9 mg/dL 8.6-10.6 L 6871600028) eGFR (test code = mL/min/1.73m2 2435092650) CLIFF (test code = CLIFF) Association of [...] tests). Lab Interpretation Abnormal (test code = 49762-3) [facility]2022-12-12 11:14:46 Test Item Value Reference Range Interpretation Comments MAGNESIUM (test code = 2954310027) 1.9 mg/dL 1.7-2.4 Lab Interpretation (test code = Normal 00867-5) [facility] GLUCOSE (AUTOMATED)2022-04-18 10:29:48 Test Item Value Reference Range Interpretation Comments POCT GLU (test code = 9808895376) 207 mg/dL 70-110 H Lab Interpretation (test code = Abnormal 45406-1) [facility] GLUCOSE (AUTOMATED)2022-04-18 10:29:48 Test Item Value Reference Range Interpretation Comments POCT GLU (test code = 8572879666) 207 mg/dL 70-110 H Lab Interpretation (test code = Abnormal 77448-1) [facility] GLUCOSE (AUTOMATED)2022-04-18 06:13:42 Test Item Value Reference Range Interpretation Comments POCT GLU (test code = 1873613047) 229 mg/dL 70-110 H Lab Interpretation (test code = Abnormal 49504-4) [facility] GLUCOSE (AUTOMATED)2022-04-18 06:13:42 Test Item Value Reference Range Interpretation Comments POCT GLU (test code = 3524767225) 229 mg/dL 70-110 H Lab Interpretation (test code = Abnormal 02253-0) [facility] 02:47:45 Test Item Value Reference Range Interpretation Comments POCT GLU (test code = 6452864755) 260 mg/dL 70-110 H Lab Interpretation (test code = Abnormal 67059-9) [facility] GLUCOSE (AUTOMATED)2022-04-18 02:47:45 Test Item Value Reference Range Interpretation Comments POCT GLU (test code = 7970609047) 260 mg/dL 70-110 H Lab Interpretation (test code = Abnormal 26324-3) [facility] GLUCOSE (AUTOMATED)2022-04-17 22:10:20 Test Item Value Reference Range Interpretation Comments POCT GLU (test code = 8244288201) 404 mg/dL 70-110 H Lab Interpretation (test code = Abnormal 93276-4) [facility] GLUCOSE (AUTOMATED)2022-04-17 22:10:20 Test Item Value Reference Range Interpretation Comments POCT GLU (test code = 0846652019) 404 mg/dL 70-110 H Lab Interpretation (test code = Abnormal 87670-7) [facility] GLUCOSE (AUTOMATED)2022-04-17 18:26:11 Test Item Value Reference Range Interpretation Comments POCT GLU (test code = 3763723105) 102 mg/dL 70-110 Lab Interpretation (test code = Normal 32496-5) [facility] GLUCOSE (AUTOMATED)2022-04-17 18:26:11 Test Item Value Reference Range Interpretation Comments POCT GLU (test code = 7256651079) 102 mg/dL 70-110 Lab Interpretation (test code = Normal 69529-7) [facility] GLUCOSE (AUTOMATED)2022-04-17 17:50:32 Test Item Value Reference Range Interpretation Comments POCT GLU (test code = 1412270850) 47 mg/dL 70-110 LL Lab Interpretation (test code = Abnormal 45222-5) [facility] GLUCOSE (AUTOMATED)2022-04-17 17:50:32 Test Item Value Reference Range Interpretation Comments POCT GLU (test code = 2263154777) 47 mg/dL 70-110 LL Lab Interpretation (test code = Abnormal 29680-7) [facility] 13:26:58 Test Item Value Reference Range Interpretation Comments POCT GLU (test code = 6795425065) 366 mg/dL 70-110 H Lab Interpretation (test code = Abnormal 82041-5) [facility] GLUCOSE (AUTOMATED)2022-04-17 13:26:58 Test Item Value Reference Range Interpretation Comments POCT GLU (test code = 0747997580) 366 mg/dL 70-110 H Lab Interpretation (test code = Abnormal 58855-1) [facility] GLUCOSE (AUTOMATED)2022-04-17 10:43:44 Test Item Value Reference Range Interpretation Comments POCT GLU (test code = 0495578202) 483 mg/dL 70-110 HH Lab Interpretation (test code = Abnormal 06926-8) [facility] GLUCOSE (AUTOMATED)2022-04-17 10:43:44 Test Item Value Reference Range Interpretation Comments POCT GLU (test code = 1588161768) 483 mg/dL 70-110 HH Lab Interpretation (test code = Abnormal 21646-9) [facility] 06:01:03 Test Item Value Reference Range Interpretation Comments POCT GLU (test code = 6382236278) 399 mg/dL 70-110 H Lab Interpretation (test code = Abnormal 40871-4) [facility]:03 Test Item Value Reference Range Interpretation Comments POCT GLU (test code = 2338231167) 399 mg/dL 70-110 H Lab Interpretation (test code = Abnormal 05997-5) [facility] 02:37:47 Test Item Value Reference Range Interpretation Comments POCT GLU (test code = 5966783048) 330 mg/dL 70-110 H Lab Interpretation (test code = Abnormal 60446-3) [facility] 02:37:47 Test Item Value Reference Range Interpretation Comments POCT GLU (test code = 1536812243) 330 mg/dL 70-110 H Lab Interpretation (test code = Abnormal 27981-3) [facility] 23:34:29 Test Item Value Reference Range Interpretation Comments POCT GLU (test code = 9708664832) 268 mg/dL 70-110 H Lab Interpretation (test code = Abnormal 56389-5) [facility] GLUCOSE (AUTOMATED)2022-04-16 23:34:29 Test Item Value Reference Range Interpretation Comments POCT GLU (test code = 9465836206) 268 mg/dL 70-110 H Lab Interpretation (test code = Abnormal 13271-1) [facility] GLUCOSE (AUTOMATED)2022-04-16 17:10:56 Test Item Value Reference Range Interpretation Comments POCT GLU (test code = 4073246049) 396 mg/dL 70-110 H Lab Interpretation (test code = Abnormal 53203-4) [facility] GLUCOSE (AUTOMATED)2022-04-16 17:10:56 Test Item Value Reference Range Interpretation Comments POCT GLU (test code = 9532931832) 396 mg/dL 70-110 H Lab Interpretation (test code = Abnormal 69161-9) [facility] GLUCOSE (AUTOMATED)2022-03-09 20:30:40 Test Item Value Reference Range Interpretation Comments POCT GLU (test code = 2251033911) 332 mg/dL 70-110 H Lab Interpretation (test code = Abnormal 81756-3) [facility] GLUCOSE (AUTOMATED)2022-03-09 13:23:52 Test Item Value Reference Range Interpretation Comments POCT GLU (test code = 0114141458) 373 mg/dL 70-110 H Lab Interpretation (test code = Abnormal 53701-3) [facility] GLUCOSE (AUTOMATED)2022-03-09 07:10:19 Test Item Value Reference Range Interpretation Comments POCT GLU (test code = 5560819518) 520 mg/dL 70-110 HH Lab Interpretation (test code = Abnormal 78044-3) [facility] GLUCOSE (AUTOMATED)2022-03-09 04:11:59 Test Item Value Reference Range Interpretation Comments POCT GLU (test code = 6719204598) 443 mg/dL 70-110 H Lab Interpretation (test code = Abnormal 70136-4) [facility] GLUCOSE (AUTOMATED)2022-03-09 02:28:25 Test Item Value Reference Range Interpretation Comments POCT GLU (test code = 1375534683) 438 mg/dL 70-110 H Lab Interpretation (test code = Abnormal 01389-3) [facility] GLUCOSE (AUTOMATED)2022-03-08 22:12:24 Test Item Value Reference Range Interpretation Comments POCT GLU (test code = 2245060632) 310 mg/dL 70-110 H Lab Interpretation (test code = Abnormal 88370-1) [facility] GLUCOSE (AUTOMATED)2022-03-08 22:12:24 Test Item Value Reference Range Interpretation Comments POCT GLU (test code = 7164490978) 310 mg/dL 70-110 H Lab Interpretation (test code = Abnormal 19918-0) [facility] GLUCOSE (AUTOMATED)2022-03-08 17:21:26 Test Item Value Reference Range Interpretation Comments POCT GLU (test code = 3240188347) 411 mg/dL 70-110 H Lab Interpretation (test code = Abnormal 56890-0) [facility] GLUCOSE (AUTOMATED)2022-03-08 17:21:26 Test Item Value Reference Range Interpretation Comments POCT GLU (test code = 0758615347) 411 mg/dL 70-110 H Lab Interpretation (test code = Abnormal 70120-1) [facility] GLUCOSE (AUTOMATED)2022-03-08 12:59:57 Test Item Value Reference Range Interpretation Comments POCT GLU (test code = 3073782522) 484 mg/dL 70-110 HH Lab Interpretation (test code = Abnormal 33703-8) [facility] GLUCOSE (AUTOMATED)2022-03-08 12:59:57 Test Item Value Reference Range Interpretation Comments POCT GLU (test code = 6154800554) 484 mg/dL 70-110 HH Lab Interpretation (test code = Abnormal 93489-5) [facility] GLUCOSE (AUTOMATED)2022-03-08 05:42:15 Test Item Value Reference Range Interpretation Comments POCT GLU (test code = 5666417349) 307 mg/dL 70-110 H Lab Interpretation (test code = Abnormal 26155-0) [facility] GLUCOSE (AUTOMATED)2022-03-08 05:42:15 Test Item Value Reference Range Interpretation Comments POCT GLU (test code = 7612778025) 307 mg/dL 70-110 H Lab Interpretation (test code = Abnormal 32695-0) [facility] 02:29:53 Test Item Value Reference Range Interpretation Comments POCT GLU (test code = 5757310427) 298 mg/dL 70-110 H Lab Interpretation (test code = Abnormal 16288-2) [facility] GLUCOSE (AUTOMATED)2022-03-08 02:29:53 Test Item Value Reference Range Interpretation Comments POCT GLU (test code = 3769244672) 298 mg/dL 70-110 H Lab Interpretation (test code = Abnormal 90371-3) [facility] 23:10:06 Test Item Value Reference Range Interpretation Comments POCT GLU (test code = 4997363783) 356 mg/dL 70-110 H Lab Interpretation (test code = Abnormal 52936-8) [facility] GLUCOSE (AUTOMATED)2022-03-07 23:10:06 Test Item Value Reference Range Interpretation Comments POCT GLU (test code = 6683731470) 356 mg/dL 70-110 H Lab Interpretation (test code = Abnormal 59174-6) [facility] 22:18:04 Test Item Value Reference Range Interpretation Comments POCT GLU (test code = 6227682894) 374 mg/dL 70-110 H Lab Interpretation (test code = Abnormal 21612-8) [facility] GLUCOSE (AUTOMATED)2022-03-07 22:18:04 Test Item Value Reference Range Interpretation Comments POCT GLU (test code = 1282192249) 374 mg/dL 70-110 H Lab Interpretation (test code = Abnormal 21845-0) [facility] GLUCOSE (AUTOMATED)2022-03-07 17:34:08 Test Item Value Reference Range Interpretation Comments POCT GLU (test code = 7388858339) 383 mg/dL 70-110 H Lab Interpretation (test code = Abnormal 75436-6) [facility] 17:34:08 Test Item Value Reference Range Interpretation Comments POCT GLU (test code = 1378508433) 383 mg/dL 70-110 H Lab Interpretation (test code = Abnormal 60182-7) [facility] GLUCOSE (AUTOMATED)2022-03-07 08:46:10 Test Item Value Reference Range Interpretation Comments POCT GLU (test code = 6505534166) 229 mg/dL 70-110 H Lab Interpretation (test code = Abnormal 88983-2) [facility] GLUCOSE (AUTOMATED)2022-03-07 08:46:10 Test Item Value Reference Range Interpretation Comments POCT GLU (test code = 7605823638) 229 mg/dL 70-110 H Lab Interpretation (test code = Abnormal 64440-1) [facility] [id number] 08:20:29 Test Item Value Reference Range Interpretation Comments ESR (test code = 86535-3) See_Comment [ Automated message] The system [employer] generated this result transmitted ref erence range: 0 - 10 m m/HR. The reference r ambrosio was not used to interpret this result as normal/abnor mal. Lab Interpretation (test Normal code = 48229-8) [facility] [id number] 08:20:29 Test Item Value Reference Range Interpretation Comments ESR (test code = 18791-1) See_Comment [ Automated message] The system [employer] generated this result transmitted ref erence range: 0 - 10 m m/HR. The reference r ambrosio was not used to interpret this result as normal/abnor mal. Lab Interpretation (test Normal code = 37166-5) [facility]07 08:17:03 Test Item Value Reference Range Interpretation Comments HGB A1C (test code = 7.6 % 4.0-5.7 H 4548-4) CLIFF (test code = CLIFF) Reference RangesNormal: <5.7%Prediabetes: 5.7 - 6.4%Diabetes: > 6.5% Lab Interpretation (test Abnormal code = 56430-2) [facility]22-03-07 08:17:03 Test Item Value Reference Range Interpretation Comments HGB A1C (test code = 7.6 % 4.0-5.7 H 4548-4) CLIFF (test code = CLIFF) Reference RangesNormal: <5.7%Prediabetes: 5.7 - 6.4%Diabetes: > 6.5% Lab Interpretation (test Abnormal code = 67627-8) [facility]49695)(TOTAL CHOLESTEROL, TRIGLYCERIDES, HDL)2022-03-07 07:33:05 Test Item Value Reference Range Interpretation Comments CHOL (test code = 250 mg/dL 120-200 H 1925728689) HDL (test code = 55 mg/dL See_Comment [Automated message] 9102259947) The system [employer] generated this result transmit jay reference range : >=40. The refer ence range was not u sed to interpret th is result as normal/abnormal . HDLC RATIO (test code = See_Comment [Au tomated message] 3213268538) The system [employer] generated this result transmit jay reference range : <=5.0. The refe rence range was not u sed to interpret th is result as normal/abnormal . TRIG (test code = 171 mg/dL 30-170 H 0652667496) LDL CHOL (test code = 161 mg/dL See_Comment H [Auto mated message] 26954-6) The system [employer] generated this result transmit jay reference range : <=160. The refe rence range was not u sed to interpret th is result as normal/abnormal . VLDL (test code = 34 mg/dL 5-60 9792808600) Lab Interpretation (test Abnormal code = 15195-1) [facility]TOTAL CHOLESTEROL, TRIGLYCERIDES, HDL)2022-03-07 07:33:05 Test Item Value Reference Range Interpretation Comments CHOL (test code = 250 mg/dL 120-200 H 1360138889) HDL (test code = 55 mg/dL See_Comment [Automated message] 5362859086) The system [employer] generated this result transmit jay reference range : >=40. The refer ence range was not u sed to interpret th is result as normal/abnormal . HDLC RATIO (test code = See_Comment [Au tomated message] 2498426077) The system [employer] generated this result transmit jay reference range : <=5.0. The refe rence range was not u sed to interpret th is result as normal/abnormal . TRIG (test code = 171 mg/dL 30-170 H 6308732545) LDL CHOL (test code = 161 mg/dL See_Comment H [Auto mated message] 18673-2) The system [employer] generated this result transmit jay reference range : <=160. The refe rence range was not u sed to interpret th is result as normal/abnormal . VLDL (test code = 34 mg/dL 5-60 1064022743) Lab Interpretation (test Abnormal code = 09147-1) [place] [id number] 07:31:45 Test Item Value Reference Range Interpretation Comments FREE T4 (test code = See_Comment [Autom ated message] 0885412503) The system [employer] generated this result transmitted ref erence range: 0.78 - 2 .20 ng/dL:. The ref erence range was not u sed to interpret this result as normal/abnor mal. Lab Interpretation (test Normal code = 82361-4) [place] [id number] 07:31:45 Test Item Value Reference Range Interpretation Comments FREE T4 (test code = See_Comment [Autom ated message] 1753946887) The system [employer] generated this result transmitted ref erence range: 0.78 - 2 .20 ng/dL:. The ref erence range was not u sed to interpret this result as normal/abnor mal. Lab Interpretation (test Normal code = 17398-8) [place] [id number] 07:31:25 Test Item Value Reference Range Interpretation Comments FREE T3 (test code = 0924555809) 3.54 pg/mL 2.77-5.27 Lab Interpretation (test code = Normal 00661-0) [place] [id number] 07:31:25 Test Item Value Reference Range Interpretation Comments FREE T3 (test code = 1246233832) 3.54 pg/mL 2.77-5.27 Lab Interpretation (test code = Normal 14075-3) [id number] 07:23:24 Test Item Value Reference Range Interpretation Comments NT-proBNP (test code 107 pg/mL See_Comment [Autom ated = 7912083603) message] The system which generated this result transmitted reference range : <=125. The reference range was not used to interpret this result as normal/abnormal . CLIFF (test code = CLIFF) Biotin has been reported to cause a negative bias, interpret results relative to patient's use of biotin. Lab Interpretation Normal (test code = 59619-4) [facility] [id number] 07:23:24 Test Item Value Reference Range Interpretation Comments NT-proBNP (test code 107 pg/mL See_Comment [Autom ated = 7245881710) message] The system which generated this result transmitted reference range : <=125. The reference range was not used to interpret this result as normal/abnormal . CLIFF (test code = CLIFF) Biotin has been reported to cause a negative bias, interpret results relative to patient's use of biotin. Lab Interpretation Normal (test code = 25798-7) [facility]:14:08 Test Item Value Reference Range Interpretation Comments MAGNESIUM (test code = 1967986556) 2.0 mg/dL 1.7-2.4 Lab Interpretation (test code = Normal 87952-5) [facility] 07:14:08 Test Item Value Reference Range Interpretation Comments MAGNESIUM (test code = 2331986849) 2.0 mg/dL 1.7-2.4 Lab Interpretation (test code = Normal 56290-0) [facility] 07:13:48 Test Item Value Reference Range Interpretation Comments ALCOHOL (test code = 165 mg/dL 7005988198) CLIFF (test code = CLIFF) <10 [id number] Toxic>100 Depression of OUTREACH AND EDUCATION SOCIAL WORKER>400 [facility]atalities Reported [facility] 07:13:48 Test Item Value Reference Range Interpretation Comments ALCOHOL (test code = 165 mg/dL 0038096664) CLIFF (test code = CLIFF) <10 [id number] Toxic>100 Depression of OUTREACH AND EDUCATION SOCIAL WORKER>400 [facility]orted [facility] [id number] 07:13:47 Test Item Value Reference Range Interpretation Comments URIC ACID (test code = 4372527513) 4.7 mg/dL 3.6-8.0 Lab Interpretation (test code = Normal 97564-1) [facility] [id number] 07:13:47 Test Item Value Reference Range Interpretation Comments URIC ACID (test code = 9242693011) 4.7 mg/dL 3.6-8.0 Lab Interpretation (test code = Normal 86058-9) [facility] GLUCOSE (AUTOMATED)2022-03-07 04:16:37 Test Item Value Reference Range Interpretation Comments POCT GLU (test code = 0308751320) 113 mg/dL 70-110 H Lab Interpretation (test code = Abnormal 82824-6) [facility] GLUCOSE (AUTOMATED)2022-03-07 04:16:37 Test Item Value Reference Range Interpretation Comments POCT GLU (test code = 9662315673) 113 mg/dL 70-110 H Lab Interpretation (test code = Abnormal 25317-0) [facility]. METABOLIC PANEL (14597)2022-03-07 02:43:33 Test Item Value Reference Range Interpretation Comments NA (test code = 139 mmol/L 135-145 7922297420) K (test code = 4.2 mmol/L 3.5-5.0 Slight 0724068349) hemolysis CL (test code = 101 mmol/L 98-108 1084649889) CO2 TOTAL (test code 28 mmol/L 23-31 = 4691917188) AGAP (test code = 2-16 1372230973) BUN (test code = 12 mg/dL 7-23 Slight 4925271286) hemolysis GLUCOSE (test code = 53 mg/dL 70-110 L 4969760191) CREATININE (test code 1.05 mg/dL 0.60-1.25 = 5627727775) TOTAL BILI (test code 0.7 mg/dL 0.1-1.1 = 6534387461) CALCIUM (test code = 8.7 mg/dL 8.6-10.6 7989406045) T PROTEIN (test code 7.7 g/dL 6.3-8.2 = 4718158590) ALBUMIN (test code = 4.3 g/dL 3.5-5.0 4349367350) ALK PHOS (test code = 102 U/L 34-122 Slight 7142010956) hemolysis ALTv (test code = 20 U/L 5-50 1742-6) AST(SGOT) (test code 39 U/L 13-40 Slight = 4209294665) hemolysis eGFR (test code = mL/min/1.73m2 2843222198) CLIFF (test code = CLIFF) Association of [...] tests). Lab Interpretation Abnormal (test code = 14222-8) [facility]. METABOLIC PANEL (04822)2022-03-07 02:43:33 Test Item Value Reference Range Interpretation Comments NA (test code = 139 mmol/L 135-145 1665011796) K (test code = 4.2 mmol/L 3.5-5.0 Slight 1508633552) hemolysis CL (test code = 101 mmol/L 98-108 2484644658) CO2 TOTAL (test code 28 mmol/L 23-31 = 0740721536) AGAP (test code = 2-16 9877213406) BUN (test code = 12 mg/dL 7-23 Slight 0876137400) hemolysis GLUCOSE (test code = 53 mg/dL 70-110 L 5698290734) CREATININE (test code 1.05 mg/dL 0.60-1.25 = 0701515436) TOTAL BILI (test code 0.7 mg/dL 0.1-1.1 = 0281665805) CALCIUM (test code = 8.7 mg/dL 8.6-10.6 3080526953) T PROTEIN (test code 7.7 g/dL 6.3-8.2 = 8419462993) ALBUMIN (test code = 4.3 g/dL 3.5-5.0 8806441496) ALK PHOS (test code = 102 U/L 34-122 Slight 0000134557) hemolysis ALTv (test code = 20 U/L 5-50 1742-6) AST(SGOT) (test code 39 U/L 13-40 Slight = 4144610136) hemolysis eGFR (test code = mL/min/1.73m2 2040796463) CLIFF (test code = CLIFF) Association of [...] tests). Lab Interpretation Abnormal (test code = 28616-5) [facility] WITH [id number] 02:10:35 Test Item Value Reference Range Interpretation [...] RDW-SD (test code = 42.8 fL 38.5-51.6 77891-4) RDW-CV (test code = 13.7 % 12.1-15.4 788-0) PLT (test code = See_Comment H [Automated 777-3) message] The sy stem which generated this result transmitted reference range : 150 - 328 10*3/ ?L. The reference r ambrosio was not used to interpret this result as normal/abnormal . MPV (test code = 9.6 fL 9.8-13.0 L 33441-5) NRBC/100 WBC (test See_Comment [Automat ed code = 0795904941) message] The system which generated this result transmitted reference range : 0.0 - 10.0 /100 WBCs. The refer ence range was not u sed to interpret th is result as normal/abnormal . NRBC x10^3 (test code See_Comment [Auto mated = 7746601239) message] The s ystem which generated this result transmitted reference range : 10*3/?L. The reference range was not used to interpret this result as normal/abnormal . GRAN MAT (NEUT) % 71.4 % (test code = 770-8) IMM GRAN % (test code 0.50 % = 4156062219) LYMPH % (test code = 19.8 % 736-9) MONO % (test code = 6.0 % 5905-5) EOS % (test code = 1.7 % 713-8) BASO % (test code = 0.6 % 706-2) GRAN MAT x10^3(ANC) 8.52 10*3/uL 1.99-6.95 H (test code = 5304737605) IMM GRAN x10^3 (test 0.06 10*3/uL 0.00-0.06 code = 9926604124) LYMPH x10^3 (test code 2.36 10*3/uL 1.09-3.23 = 731-0) MONO x10^3 (test code 0.72 10*3/uL 0.36-1.02 = 742-7) EOS x10^3 (test code = 0.20 10*3/uL 0.06-0.53 711-2) BASO x10^3 (test code 0.07 10*3/uL 0.01-0.09 = 704-7) Lab Interpretation Abnormal (test code = 48252-4) [facility] WITH [id number] 02:10:35 Test Item Value Reference Range Interpretation Comments WBC (test code = See_Comment H [Automated 6290-2) message] The sy stem which generated this [...] RDW-SD (test code = 42.8 fL 38.5-51.6 17228-6) RDW-CV (test code = 13.7 % 12.1-15.4 788-0) PLT (test code = See_Comment H [Automated 777-3) message] The sy stem which generated this result transmitted reference range : 150 - 328 10*3/ ?L. The reference r ambrosio was not used to interpret this result as normal/abnormal . MPV (test code = 9.6 fL 9.8-13.0 L 84182-3) NRBC/100 WBC (test See_Comment [Automat ed code = 7174817959) message] The system which generated this result transmitted reference range : 0.0 - 10.0 /100 WBCs. The refer ence range was not u sed to interpret th is result as normal/abnormal . NRBC x10^3 (test code See_Comment [Auto mated = 7434159787) message] The s ystem which generated this result transmitted reference range : 10*3/?L. The reference range was not used to interpret this result as normal/abnormal . GRAN MAT (NEUT) % 71.4 % (test code = 770-8) IMM GRAN % (test code 0.50 % = 5158467000) LYMPH % (test code = 19.8 % 736-9) MONO % (test code = 6.0 % 5905-5) EOS % (test code = 1.7 % 713-8) BASO % (test code = 0.6 % 706-2) GRAN MAT x10^3(ANC) 8.52 10*3/uL 1.99-6.95 H (test code = 5446764967) IMM GRAN x10^3 (test 0.06 10*3/uL 0.00-0.06 code = 2866140863) LYMPH x10^3 (test code 2.36 10*3/uL 1.09-3.23 = 731-0) MONO x10^3 (test code 0.72 10*3/uL 0.36-1.02 = 742-7) EOS x10^3 (test code = 0.20 10*3/uL 0.06-0.53 711-2) BASO x10^3 (test code 0.07 10*3/uL 0.01-0.09 = 704-7) Lab Interpretation Abnormal (test code = 01840-2) [facility] GLUCOSE (AUTOMATED)2022-03-07 01:47:49 Test Item Value Reference Range Interpretation Comments POCT GLU (test code = 4920793057) 65 mg/dL 70-110 L Lab Interpretation (test code = Abnormal 13310-6) [facility] GLUCOSE (AUTOMATED)2022-03-07 01:47:49 Test Item Value Reference Range Interpretation Comments POCT GLU (test code = 8220567451) 65 mg/dL 70-110 L Lab Interpretation (test code = Abnormal 71008-3) [facility] GLUCOSE (AUTOMATED)2021-03-03 17:40:06 Test Item Value Reference Range Interpretation Comments POCT GLU (test code = 2775103624) 322 mg/dL 70-110 H Lab Interpretation (test code = Abnormal 16332-4) [facility] GLUCOSE (AUTOMATED)2021-03-03 13:09:15 Test Item Value Reference Range Interpretation Comments POCT GLU (test code = 6188690184) 316 mg/dL 70-110 H Lab Interpretation (test code = Abnormal 78128-1) [facility] METABOLIC PANEL (NA, K, CL, CO2, GLUCOSE, BUN, CREATININE, CA)2021-03-03 11:38:31 Test Item Value Reference Range Interpretation Comments NA (test code = 132 mmol/L 135-145 L 5024574376) K (test code = 4.9 mmol/L 3.5-5.0 2373583788) CL (test code = 101 mmol/L 98-108 8778549918) CO2 TOTAL (test code = 27 mmol/L 23-31 8403880189) AGAP (test code = 2-16 8750659888) BUN (test code = 19 mg/dL 7-23 3123339460) GLUCOSE (test code = 318 mg/dL 70-110 H 7997193407) CREATININE (test code = 0.88 mg/dL 0.60-1.25 1341798148) CALCIUM (test code = 9.4 mg/dL 8.6-10.6 2793708338) eGFR (test code = mL/min/1.73m2 1058270480) CLIFF (test code = CLIFF) Association of [...] tests). Lab Interpretation Abnormal (test code = 15792-4) [facility] WITH [id number] 10:44:26 Test Item Value Reference Range Interpretation Comments WBC (test code = See_Comment [Automated 9225-2) message] The sy stem which generated this result transmitted reference range : 4.20 - 10.70 10*3/?L. The reference range was not used to interpret this result as normal/abnormal . RBC (test code = See_Comment [Automated 725-8) message] The sy stem which generated this [...] RDW-SD (test code = 40.4 fL 38.5-51.6 58194-7) RDW-CV (test code = 12.8 % 12.1-15.4 788-0) PLT (test code = See_Comment H [Automated 777-3) message] The sy stem which generated this result transmitted reference range : 150 - 328 10*3/ ?L. The reference r ambrosio was not used to interpret this result as normal/abnormal . MPV (test code = 11.3 fL 9.8-13.0 90399-8) NRBC/100 WBC (test See_Comment [Automat ed code = 8810676340) message] The system which generated this result transmitted reference range : 0.0 - 10.0 /100 WBCs. The refer ence range was not u sed to interpret th is result as normal/abnormal . NRBC x10^3 (test code <0.01 See_Comment [Auto mated = 9188948780) message] The s ystem which generated this result transmitted reference range : 10*3/?L. The reference range was not used to interpret this result as normal/abnormal . GRAN MAT (NEUT) % 51.4 % (test code = 770-8) IMM GRAN % (test code 0.30 % = 4531795521) LYMPH % (test code = 29.5 % 736-9) MONO % (test code = 9.9 % 5905-5) EOS % (test code = 7.3 % 713-8) BASO % (test code = 1.6 % 706-2) GRAN MAT x10^3(ANC) 3.88 10*3/uL 1.99-6.95 (test code = 8064418527) IMM GRAN x10^3 (test <0.03 0.00-0.06 code = 9382689694) LYMPH x10^3 (test code 2.23 10*3/uL 1.09-3.23 = 731-0) MONO x10^3 (test code 0.75 10*3/uL 0.36-1.02 = 742-7) EOS x10^3 (test code = 0.55 10*3/uL 0.06-0.53 H 711-2) BASO x10^3 (test code 0.12 10*3/uL 0.01-0.09 H = 704-7) Lab Interpretation Abnormal (test code = 95875-5) [facility] GLUCOSE (AUTOMATED)2021-03-03 05:25:50 Test Item Value Reference Range Interpretation Comments POCT GLU (test code = 2206399553) 140 mg/dL 70-110 H Lab Interpretation (test code = Abnormal 28554-6) [facility] GLUCOSE (AUTOMATED)2021-03-03 05:25:49 Test Item Value Reference Range Interpretation Comments POCT GLU (test code = 2806617561) 129 mg/dL 70-110 H Lab Interpretation (test code = Abnormal 18810-3) [facility] GLUCOSE (AUTOMATED)2021-03-02 22:33:16 Test Item Value Reference Range Interpretation Comments POCT GLU (test code = 0350066916) 205 mg/dL 70-110 H Lab Interpretation (test code = Abnormal 85984-1) [facility] GLUCOSE (AUTOMATED)2021-03-02 17:32:23 Test Item Value Reference Range Interpretation Comments POCT GLU (test code = 3887153973) 253 mg/dL 70-110 H Lab Interpretation (test code = Abnormal 95019-9) [facility] [id number] 14:39:03 Test Item Value Reference Range Interpretation Comments FREE T4 (test code = See_Comment L [Autom ated message] 3300067273) The system [employer] generated this result transmitted ref erence range: 0.78 - 2 .20 ng/dL:. The ref erence range was not u sed to interpret this result as normal/abnor mal. Lab Interpretation (test Abnormal code = 83081-9) [facility] [id number] 14:38:22 Test Item Value Reference Range Interpretation Comments FREE T3 (test code = 3487795748) 2.94 pg/mL 2.77-5.27 Lab Interpretation (test code = Normal 05279-1) [facility] 13:04:49 Test Item Value Reference Range Interpretation Comments POCT GLU (test code = 6560031281) 177 mg/dL 70-110 H Lab Interpretation (test code = Abnormal 34862-0) [facility] Metabolic Panel (NA, K, CL, CO2, GLUCOSE, BUN, CREATININE, CA)2021-03-02 12:10:05 Test Item Value Reference Range Interpretation Comments NA (test code = 134 mmol/L 135-145 L 5092577970) K (test code = 4.8 mmol/L 3.5-5.0 6633878274) CL (test code = 106 mmol/L 98-108 9221966304) CO2 TOTAL (test code = 24 mmol/L 23-31 2008718365) AGAP (test code = 2-16 6116650321) BUN (test code = 14 mg/dL 7-23 4449803517) GLUCOSE (test code = 201 mg/dL 70-110 H 2757629414) CREATININE (test code = 0.83 mg/dL 0.60-1.25 5461279789) CALCIUM (test code = 9.4 mg/dL 8.6-10.6 8308007930) eGFR (test code = mL/min/1.73m2 2213168458) CLIFF (test code = CLIFF) Association of [...] tests). Lab Interpretation Abnormal (test code = 60821-1) [facility] GLUCOSE (AUTOMATED)2021-03-02 04:41:03 Test Item Value Reference Range Interpretation Comments POCT GLU (test code = 4162859888) 165 mg/dL 70-110 H Lab Interpretation (test code = Abnormal 21647-5) [facility] GLUCOSE (AUTOMATED)2021-03-01 21:40:23 Test Item Value Reference Range Interpretation Comments POCT GLU (test code = 4800149989) 338 mg/dL 70-110 H Lab Interpretation (test code = Abnormal 94948-8) [facility] GLUCOSE (AUTOMATED)2021-03-01 21:15:20 Test Item Value Reference Range Interpretation Comments POCT GLU (test code = 8419093491) 308 mg/dL 70-110 H Lab Interpretation (test code = Abnormal 60023-1) [facility] [id number] 20:59:15 Test Item Value Reference Range Interpretation Comments TSH (test code = See_Comment H [Automated message] 9765919018) The system [employer] generated this result transmitted ref erence range: 0.45 - 4 .70 mIU/L. The refe rence range was not u sed to interpret this result as normal/abnor mal. Lab Interpretation (test Abnormal code = 67932-9) [facility]A1C[facility]2021-03-01 20:50:54 Test Item Value Reference Range Interpretation Comments HGB A1C (test code = 8.6 % 4.0-5.7 H 4548-4) CLIFF (test code = CLIFF) Reference RangesNormal: <5.7%Prediabetes: 5.7 - 6.4%Diabetes: > 6.5% Lab Interpretation (test Abnormal code = 95368-8) [facility] GLUCOSE (AUTOMATED)2021-03-01 18:26:29 Test Item Value Reference Range Interpretation Comments POCT GLU (test code = 9980186446) 177 mg/dL 70-110 H Lab Interpretation (test code = Abnormal 87925-6) [facility] GLUCOSE (AUTOMATED)2021-03-01 16:52:10 Test Item Value Reference Range Interpretation Comments POCT GLU (test code = 4319030921) 112 mg/dL 70-110 H Lab Interpretation (test code = Abnormal 58463-6) [facility] GLUCOSE (AUTOMATED)2021-03-01 16:52:10 Test Item Value Reference Range Interpretation Comments POCT GLU (test code = 6406570813) 154 mg/dL 70-110 H Lab Interpretation (test code = Abnormal 19619-9) [facility] 16:14:23 Test Item Value Reference Range Interpretation Comments MAGNESIUM (test code = 2809979143) 1.8 mg/dL 1.7-2.4 Lab Interpretation (test code = Normal 19906-6) [facility] (84986)2021-03-01 16:14:02 Test Item Value Reference Range Interpretation Comments NA (test code = 136 mmol/L 135-145 5313039486) K (test code = 4.1 mmol/L 3.5-5.0 3592189167) CL (test code = 105 mmol/L 98-108 1026265403) CO2 TOTAL (test code = 28 mmol/L 23-31 4231564809) AGAP (test code = 2-16 6032001078) BUN (test code = 14 mg/dL 7-23 3246769549) GLUCOSE (test code = 187 mg/dL 70-110 H 4429268841) CREATININE (test code = 0.85 mg/dL 0.60-1.25 7261629076) TOTAL BILI (test code = 0.6 mg/dL 0.1-1.0 2648139684) CALCIUM (test code = 9.0 mg/dL 8.6-10.6 0860198498) T PROTEIN (test code = 7.2 g/dL 6.3-8.2 2687672636) ALBUMIN (test code = 3.9 g/dL 3.5-5.0 0621090535) ALK PHOS (test code = 77 U/L 34-122 6816645520) ALTv (test code = 19 U/L 5-50 1742-6) AST(SGOT) (test code = 25 U/L 13-40 4344733413) eGFR (test code = mL/min/1.73m2 3599642521) CLIFF (test code = CLIFF) Association of [...] tests). Lab Interpretation Abnormal (test code = 67281-4) [facility] WITH [id number] 15:58:21 Test Item Value Reference Range Interpretation [...] RDW-SD (test code = 41.1 fL 38.5-51.6 01270-8) RDW-CV (test code = 12.7 % 12.1-15.4 788-0) PLT (test code = See_Comment H [Automated 777-3) message] The sy stem which generated this result transmitted reference range : 150 - 328 10*3/ ?L. The reference r ambrosio was not used to interpret this result as normal/abnormal . MPV (test code = 9.6 fL 9.8-13.0 L 59221-4) NRBC/100 WBC (test See_Comment [Automat ed code = 9373745457) message] The system which generated this result transmitted reference range : 0.0 - 10.0 /100 WBCs. The refer ence range was not u sed to interpret th is result as normal/abnormal . NRBC x10^3 (test code <0.01 See_Comment [Auto mated = 7370927754) message] The s ystem which generated this result transmitted reference range : 10*3/?L. The reference range was not used to interpret this result as normal/abnormal . GRAN MAT (NEUT) % 57.2 % (test code = 770-8) IMM GRAN % (test code 0.50 % = 0214858863) LYMPH % (test code = 23.8 % 736-9) MONO % (test code = 8.8 % 5905-5) EOS % (test code = 8.4 % 713-8) BASO % (test code = 1.3 % 706-2) GRAN MAT x10^3(ANC) 6.36 10*3/uL 1.99-6.95 (test code = 2267025002) IMM GRAN x10^3 (test 0.05 10*3/uL 0.00-0.06 code = 1261080832) LYMPH x10^3 (test code 2.64 10*3/uL 1.09-3.23 = 731-0) MONO x10^3 (test code 0.98 10*3/uL 0.36-1.02 = 742-7) EOS x10^3 (test code = 0.93 10*3/uL 0.06-0.53 H 711-2) BASO x10^3 (test code 0.14 10*3/uL 0.01-0.09 H = 704-7) Lab Interpretation Abnormal (test code = 98360-9) [id number] 06:00:00 Test Item Value Reference Range Interpretation Comments CULTURE (BEAKER) (test No growth in 5 days code = 1095) URINE [id number] 10:25:00 Test Item Value Reference Range Interpretation Comments CULTURE (BEAKER) (test code = 1095) No growth POCT-GLUCOSE [id number] 17:10:00 Test Item Value Reference Range Interpretation Comments POC-GLUCOSE METER 232 mg/dL 70-110 H TESTED AT [facility] 67[address] (BEAKER) (test code = [place]) [address] CT, CTANGIO [id number] 16:41:00CTV pleaseFINAL REPORT CTV brain 02/13/2018 4:35 [...] Sky Verified Date/Time: 02/13/2018 16:41:24 Reading Location: [facility] Radiology Reading Room -GLUCOSE [id number] 13:07:00 Test Item Value Reference Range Interpretation Comments POC-GLUCOSE METER 311 mg/dL 70-110 H Notified Gareth Coronado [facility] (test code = AT [place] [address]) [place] [address] 0 IRON, TIBC, % SAT. (WITHOUT FERRITIN)2018-02-13 10:10:00 Test Item Value Reference Range Interpretation Comments IRON (BEAKER) (test code = 547) 49 ug/dL 40-160 TOTAL IRON BINDING CAPACITY 231 ug/dL 250-450 L (BEAKER) (test code = 769) IRON % SATURATION (2) (BEAKER) 21 % 20-55 (test code = 2590) POCT-GLUCOSE [id number] 08:50:00 Test Item Value Reference Range Interpretation Comments POC-GLUCOSE METER 348 mg/dL 70-110 H Notified Gareth Coronado MD/TESTED (BEAKER) (test code = AT [address]) [place] [address] 0 BASIC METABOLIC [id number] 08:31:00 Test Item Value Reference Range Interpretation [...] NOT APPLICABLE FOR DIALYSIS PATIEN TS. LIPID [id number] 08:31:00 Test Item Value Reference Range Interpretation [...] 130-159 High 160-189 Very High >=190IMMATURE RETICULOCYTE [id number] 08:16:00 Test Item Value Reference Range Interpretation Comments IMMATURE RETIC FRACTION (BEAKER) 8.600 % 2.300-13.400 (test code = 1447) RETICULOCYTE COUNT PCT (BEAKER) (test 1.4 % 0.5-1.8 code = 575) CBC W/PLT COUNT & AUTO [id number] 08:16:00 Test Item Value Reference Range Interpretation [...] 417) IMMATURE GRANULOCYTES-RELATIVE 0 % 0-1 PERCENT ([place]ORIA) (test code = 2801) POCT-GLUCOSE [id number] 21:18:00 Test Item Value Reference Range Interpretation Comments POC-GLUCOSE METER 226 mg/dL 70-110 H TESTED AT [facility] 67[address] ([place]) (test code = [place] 1538) [id number] MR, BRAIN, WITHOUT [id number] 19:43:00FINAL REPORT MRI brain without contrast INDICATION: [...] Gregory Verified Date/Time: 02/12/2018 19:43:32 Reading Location: [facility] Radiology Reading Room -GLUCOSE [id number] 19:01:00 Test Item Value Reference Range Interpretation Comments POC-GLUCOSE METER 362 mg/dL 70-110 H TESTED AT [facility] [address] ([place]) (test code = [place] 1538) [address] EEG AWAKE AND [id number] 17:46:00Reason for exam:->SeizureShould this be performed at the bedside?->[facility] REPORTDATE OF TEST: [id number] OF REPORT: [id number]: [id number]: [id number] time: 14:04Stop time: 14:24ICD-10: R56.9CPT Code: 24766ELFQBHH: 40 y old 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, [...] of this report.Queenie Loco MD, PhDClinical Neurophysiology/Epilepsy AttendingOakleaf Surgical Hospital Medicine 05:46 PMPOCT-GLUCOSE [id number] 15:33:00 Test Item Value Reference Range Interpretation Comments POC-GLUCOSE METER 213 mg/dL 70-110 H [facility] AT [facility] (test code = [place] 1538) [id number] TSH/FREE T4 IF [id number] 09:35:00 Test Item Value Reference Range Interpretation Comments THYROID STIMULATING HORMONE 4.03 uIU/mL 0.35-4.94 (BEAKER) (test code = 772) HEMOGLOBIN [id number] 08:47:00 Test Item Value Reference Range Interpretation Comments HEMOGLOBIN A1C (BEAKER) (test code = 6.5 % 4.3-6.1 H 368) POCT-GLUCOSE [id number] 07:55:00 Test Item Value Reference Range Interpretation Comments POC-GLUCOSE METER 219 mg/dL 70-110 H TESTED AT [place] [address] ([facility]) (test code = [place] 1538) [id number] [id number] 05:00:00 Test Item Value Reference Range Interpretation Comments MAGNESIUM (BEAKER) (test code = 2.1 mg/dL 1.6-2.6 627) BASIC METABOLIC [id number] 05:00:00 Test Item Value Reference Range Interpretation [...] PATIEN TS. CBC W/PLT COUNT & AUTO [id number] 04:40:00 Test Item Value Reference Range Interpretation [...] ABSOLUTE COUNT 0.79 K/ L 0.04-0.54 H (AKER) (test code = 416) BASOPHILS ABSOLUTE COUNT (AKER) 0.07 K/ L 0.01-0.08 (test code = 417) IMMATURE GRANULOCYTES-RELATIVE 0 % 0-1 PERCENT ([facility]) (test code = 2801) POCT-GLUCOSE [id number] 04:31:00 Test Item Value Reference Range Interpretation Comments POC-GLUCOSE METER 183 mg/dL 70-110 H TESTED AT [place] [address] ([facility]) (test code = [facility] 1538) [address] RAD, ABDOMEN/KUB, 1 VIEW [id number] 01:33:00Reason for exam:->Abdominal distension, obtundationFINAL REPORT CLINICAL [...] calcification in the pelvis. Signed: [facility] Verified Date/Time: 02/12/2018 01:33:19 Reading Location: [address] Reading Room POCT-GLUCOSE METER 2018-02-12 00:49:00 Test Item Value Reference Range Interpretation Comments POC-GLUCOSE METER 346 mg/dL 70-110 H TESTED AT [facility] [address] ([facility]) (test code = [facility] 1538) [address] CBC W/PLT COUNT & AUTO [id number] 00:44:00 Test Item Value Reference Range Interpretation Comments WHITE BLOOD CELL COUNT ([facility]) 14.3 K/ L 3.5-10.5 H (test code = 775) RED BLOOD CELL COUNT ([facility]) 4.26 M/ L 4.63-6.08 L (test code [...] (test code = 2801) RAPID DRUG SCREEN, [id number] 00:35:00 Test Item Value Reference Range Interpretation [...] situations. Chain of custody not maintained. Some sjwx-xxk-tpqgnoc medications, as well as adulterants, may cause [...] acute neurological disease, and persistent tachyarrhythmia.COMPREHENSIVE METABOLIC [id number] 00:09:00 Test Item Value Reference Range Interpretation [...] APPLICABLE FOR DIALYSIS PATIEN TS. URINALYSIS W/ [id number] 00:06:00 Test Item Value Reference Range Interpretation [...] = 2795) RAD, CHEST, 1 VIEW, NON [id number] 23:11:00Reason for exam:->Obtundation with coarse respirations, baselineShould this be performed at the [facility]?->YesFINAL REPORT RAD, CHEST, 1 VIEW, NON DEPT INDICATION: Obtundation with coarse respirations, baseline COMPARISON: None. FINDINGS: Portable frontal view of the chest. IMPRESSION: Support Lines: None. Lungs and pleura: Clear lungs. No pneumothorax.Heart and mediastinum: Unremarkable.Additional findings: Fluid and gaseous distention of the gastric lumen. Signed: JR Lozano Robert MDReport Verified Date/Time: 02/11/2018 23:11:04 Reading Location: [address] Reading Room "
[2022-07-23] MEDS ORDERED: NA CHLORIDE 0.9% 500 ML ONE (11:58)
--- NOTE | 2022-07-23 12:07 | RAD REPORT ---
EXAM DESCRIPTION: [place] Single View07/23/2022 11:57 am CLINICAL HISTORY: Chest pain COMPARISON: May 2022 FINDINGS: The lungs appear clear of acute infiltrate. The heart is normal size IMPRESSION: No acute abnormalities displayed
--- NOTE | 2022-07-23 12:14 | RAD REPORT ---
EXAM DESCRIPTION: CT - Head Brain Wo Cont - 07/23/2022 12:02 pm CLINICAL HISTORY: Alteration of awareness/confusion COMPARISON: 2020 TECHNIQUE: Computed axial tomography of the head was obtained. IV contrast was not requested. All CT scans are performed using dose optimization technique as appropriate and may include automated exposure control or mA/KV adjustment according to patient size. FINDINGS: An intracranial bleed is not seen The ventricles are normal in caliber No extra-axial fluid collection is noted. No significant hypodensity within brain. Moderate chronic sinusitis IMPRESSION: No acute intracranial abnormality is seen If patient's symptoms persist MRI of the brain would be recommended
[2022-07-23 12:19] LABS: Absolute Lymphocytes (CBC) 1.2 K/uL (0.7-4.9); Hematocrit 46.4 % (39.6-49.0); Lymphocytes % 26.7 % (15.3-44.8); MCV 87.5 fL (80-100); MPV 7.7 fL (7.6-11.3)
[2022-07-23 12:38] LABS: Magnesium 1.7 mg/dL (1.6-2.4); Potassium 3.1 mEq/L (3.5-5.1); Troponin High Sensitivity 7.2 pg/mL (<58.9)
[2022-07-23 12:48] LABS: SARS-CoV-2 Antigen Rapid Res Negative (Negative)
[2022-07-23] MEDS ORDERED: POTASSIUM 25 MEQ EFFERV TAB ONE (13:45)
[2022-07-23] MEDS ORDERED: MAGNESIUM SULFATE 1 gm IVPB 1 GM/100 ML BAG IV ONE (13:45)
[2022-07-23] MEDS ORDERED: CALCIUM GLUCONATE 1 GM IVPB 2 GM/100 ML BAG IV ONE (13:50)
--- NOTE | 2022-07-23 14:16 | ER ---
Nurse's Notes [facility] Name: Surjit Stubbs Age: 47 yrs Sex: Male : 1975 Arrival Date: 07/23/2022 Time: 11:43 Bed 4 Private MD: Diagnosis: Chest pain, unspecified Presentation: 07/23 11:46 Chief complaint: EMS states: patient has chest pain 8/10 since yesterday that radiates kr3 to the left shoulder, he was picked up from [facility]. patient reports his hands being numb. Coronavirus screen: Vaccine status: Patient reports being unvaccinated. Ebola Screen: Patient denies travel to an Ebola-affected area in the 21 days before illness onset. Initial Sepsis Screen: Does the patient meet any 2 criteria? No. Patient's initial sepsis screen is negative. Does the patient have a suspected source of infection? No. Patient's initial sepsis screen is negative. Risk Assessment: Do you want to hurt yourself or someone else? Patient reports no desire to harm self or others. Onset of symptoms was July 22, 2022. 11:46 Method Of Arrival: EMS: [facility] kr3 11:46 Acuity: TOI 3 kr3 11:46 Care prior to arrival: Medication(s) given: Aspirin x4 81 mg chewable. kr3 Triage Assessment: 11:49 General: Appears in no apparent distress. comfortable, slender, unkempt, Behavior is kr3 calm, cooperative, appropriate for age. Pain: Complains of pain in left clavicle, anterior aspect of left upper chest and mid-sternal area. EENT: No signs and/or symptoms were reported regarding the EENT system. Neuro: Level of Consciousness is awake, alert, obeys commands, Oriented to. Cardiovascular: Patient's skin is warm and dry. Respiratory: Airway is patent Respiratory effort is even, unlabored, Respiratory pattern is regular, symmetrical. GI: No signs and/or symptoms were reported involving the gastrointestinal system. : No signs and/or symptoms were reported regarding the genitourinary system. Derm: No signs and/or symptoms reported regarding the dermatologic system. Musculoskeletal: No signs and/or symptoms reported regarding the musculoskeletal system. Historical: - Allergies: 11:49 tramadol; kr3 - PMHx: 11:49 Diabetes - IDDM; High Cholesterol; Hypothyroidism; neuropathy; Seizures; kr3 - Immunization history:: Adult Immunizations not up to date. - Social history:: Smoking status: . Assessment: 12:50 Reassessment: Patient and/or family updated on plan of care and expected duration. Pain kr3 level reassessed. 14:03 Reassessment: Patient and/or family updated on plan of care and expected duration. Pain kr3 level reassessed. Vital Signs: 11:46 BP 169 / 97; Pulse 91; Resp 18; Temp 98.4; Pulse Ox 100% ; kr3 13:00 BP 132 / 86; Pulse 85; Resp 18; Pulse Ox 99% on R/A; kr3 14:05 BP 143 / 87; Pulse 92; Resp 18; Pulse Ox 99% on R/A; kr3 ED Course: 11:43 Patient arrived in ED. kj1 11:43 Moises Iverson MD is Attending Physician. bs3 11:49 Triage completed. kr3 11:50 Arm band placed on right wrist. Patient placed in an exam room, on a stretcher. kr3 11:51 Yary Lombardi RN is Primary Nurse. kr3 11:59 XRAY Chest (1 view) In Process Unspecified. EDMS 12:04 CT Head Brain wo Cont In Process Unspecified. EDMS Administered Medications: 12:09 Drug: NS 0.9% IV 500 ml Route: IV; Rate: 1000 ml/hr; Site: left antecubital; kr3 13:58 Follow up: Response: No adverse reaction; IV Status: Completed infusion; IV Intake: kr3 500ml 13:57 Drug: Calcium Gluconate IVPB 2 grams Route: IVPB; Infused Over: 60 mins; Site: left kr3 antecubital; 13:57 Drug: Potassium PO Effervescent Tablet 50 mEq Route: PO; kr3 13:57 Drug: Magnesium Sulfate IVPB 1 grams Route: IVPB; Infused Over: 1 hrs; Site: left kr3 antecubital; Intake: 13:58 IV: 500ml; Total: 500ml. kr3 Outcome: 14:15 Discharge ordered by . bs3 Signatures: Dispatcher [employer] EDMS Marvin Acostadis kj1 Yary Lombardi RN RN kr3 Moises Iverson MD MD bs3
--- NOTE | 2022-07-23 14:16 | EDPHYS ---
Physician Documentation [facility] Name: Surjit Stubbs Age: 47 yrs Sex: Male : 1975 Arrival Date: 07/23/2022 Time: 11:43 Bed 4 Private MD: ED Physician Moises Iverson HPI: 07/23 12:11 This 47 yrs old Male presents to ER via EMS with complaints of Chest Pain. bs3 12:11 Patient has a history of diabetes, high cholesterol, polysubstance abuse who is bs3 complaining of chest pain for over 1 day he notes that he has been drinking and not sure how long he has had the pain but it is a left-sided pain described as a pressure he also endorses kidney pain but the 2 pains are not related denies any fevers chills cough or shortness of breath he notes that he has had similar pain before he has not taken anything for the pain but EMS gave him 324 of aspirin. Patient is a poor historian. Historical: - Allergies: 11:49 tramadol; kr3 - PMHx: 11:49 Diabetes - IDDM; High Cholesterol; Hypothyroidism; neuropathy; Seizures; kr3 - Immunization history:: Adult Immunizations not up to date. - Social history:: Smoking status: . ROS: 12:11 Constitutional: Negative for fever, chills bs3 12:11 All other systems are negative. Exam: 12:11 Constitutional: This is a well developed, disheveled, no acute distress appears tired bs3 Head/Face: Normocephalic, atraumatic. Eyes: Pupils equal round and reactive to light, extra-ocular motions intact. Lids and lashes normal. ENT: mmm, no posterior phyarngeal erythema Neck: Trachea midline, no thyromegaly, no neck stiffness Chest/axilla: old bruising pain several small areas on his chest Cardiovascular: Regular rate and rhythm with a normal S1 and S2. symmetric pulses in upper extremities Respiratory: Lungs have equal breath sounds bilaterally, clear to auscultation, no respiratory distress Abdomen/GI: Soft, non-tender, no rebound or guarding Skin: Warm, dry with normal turgor. Normal color with no rashes, no lesions, and no evidence of cellulitis. MS/ Extremity: Pulses equal, no cyanosis. Neurovascular intact. Full, normal range of motion. Neuro: Awake and alert, GCS 15, oriented to person, place, time, and situation. Cranial nerves II-XII grossly intact. Motor strength 5/5 in all extremities. Sensory grossly intact. Psych: Awake, alert, with orientation to person, place and time. Behavior, mood, and affect are within normal limits. 12:11 Normal sinus rhythm at [address] elevations or depressions QTc 445 bs3 Vital Signs: 11:46 BP 169 / 97; Pulse 91; Resp 18; Temp 98.4; Pulse Ox 100% ; kr3 13:00 BP 132 / 86; Pulse 85; Resp 18; Pulse Ox 99% on R/A; kr3 14:05 BP 143 / 87; Pulse 92; Resp 18; Pulse Ox 99% on R/A; kr3 MDM: 11:43 Patient medically screened. bs3 12:11 Differential diagnosis: abnormal EKG, acute myocardial infarction, acute pericarditis, bs3 anxiety, coronary artery disease chest wall pain, pancreatitis, pericarditis, pleurisy, pneumothorax. 12:11 Data reviewed: vital signs, nurses notes. Historians other than the Patient: EMS: Noted bs3 glucose over 200, patient was a poor historian for them complaining of chest pain and noted likely alcohol use at home. ED course: Will evaluate for acute coronary syndrome, given duration of symptoms 1 troponin will rule this out will evaluate for pneumothorax given his old bruising will evaluate for our elevated alcohol level I considered aortic dissection but his pain is not ripping or tearing he has good symmetric pulses he has no neurologic deficits. 12:17 Independent interpretation of the following test(s) in the Emergency Department X-Ray: bs3 My interpretation is No pneumothorax unchanged from prior. CT Scan: My interpretation is No intracranial hemorrhage. 13:32 ED course: labs notable for hypocalcemia, hypokalemia, will replete, given duration of bs3 sx, single trop rules out acs, etoh slightly elevated. 14:14 HEART Score: History: Slightly Suspicious (0), ECG: Normal (0), Age: > 45 and < 65 bs3 years (1), Risk Factors: > or = 3 Risk factors for atherosclerotic disease (2), [Hypercholesterolemia] [Hypertension] [Active Smoker] Troponin: < or = 1 x Normal Limit (0), Total Score = 3. 0318 11:45 Order name: Basic Metabolic Panel; Complete Time: 13:02 bs3 07/23 11:45 Order name: CBC with Diff; Complete Time: 13:02 bs3 07/23 11:45 Order name: Magnesium; Complete Time: 13:02 bs3 07/23 11:45 Order name: NT PRO-BNP; Complete Time: 13:02 bs3 07/23 11:45 Order name: Troponin HS; Complete Time: 13:02 3 07/23 11:45 Order name: XRAY Chest (1 view); Complete Time: 12:16 bs3 07/23 11:45 Order name: EKG; Complete Time: 11:46 bs3 07/23 11:45 Order name: Cardiac monitoring; Complete Time: 11:51 bs3 07/23 11:45 Order name: EKG - Nurse/Tech; Complete Time: 11:51 bs3 07/23 11:45 Order name: IV Saline Lock; Complete Time: 11:51 bs3 07/23 11:45 Order name: Labs collected and sent; Complete Time: 11:51 bs3 07/23 11:45 Order name: O2 Per Protocol; Complete Time: 11:51 bs3 07/23 11:45 Order name: O2 Sat Monitoring; Complete Time: 11:51 bs3 07/23 11:45 Order name: Ethanol; Complete Time: 13:02 3 07/23 11:45 Order name: CT Head Brain wo Cont; Complete Time: 12:16 bs3 07/23 11:45 Order name: Lipase; Complete Time: 13:02 3 07/23 11:45 Order name: Glucose Level; Complete Time: 11:51 3 07/23 11:46 Order name: SARS-COV-2 Antigen Rapid; Complete Time: 13:02 bs3 07/23 11:49 Order name: UA bs3 07/23 12:00 Order name: Glucose, Ancillary Testing; Complete Time: 12:16 EDMS Administered Medications: 12:09 Drug: NS 0.9% IV 500 ml Route: IV; Rate: 1000 ml/hr; Site: left antecubital; kr3 13:58 Follow up: Response: No adverse reaction; IV Status: Completed infusion; IV Intake: kr3 500ml 13:57 Drug: Calcium Gluconate IVPB 2 grams Route: IVPB; Infused Over: 60 mins; Site: left kr3 antecubital; 13:57 Drug: Potassium PO Effervescent Tablet 50 mEq Route: PO; kr3 13:57 Drug: Magnesium Sulfate IVPB 1 grams Route: IVPB; Infused Over: 1 hrs; Site: left kr3 antecubital; Disposition Summary: 07/23/22 14:15 Discharge Ordered Location: Home bs3 Problem: new bs3 Symptoms: are resolved bs3 Condition: Stable bs3 Diagnosis - Chest pain, unspecified bs3 Followup: bs3 - With: Private Physician - When: 48 Hours - Reason: Re-evaluation by your physician Forms: - Medication Reconciliation Form bs3 - Thank You Letter bs3 - Antibiotic Education bs3 - Prescription Opioid Use bs3 Signatures: Dispatcher [employer] Yary Payan RN RN kr3 Moises Iverson MD MD bs3
[2022-07-23 15:41] VITALS: TEMP 98.4
[2022-07-23 15:42] VITALS: O2SAT 99
[2022-07-23 15:43] VITALS: BP 143/87
--- NOTE | 2022-07-25 17:39 | EKG ---
Test Date: 2022-07-23 Test Time: 11:47:28 [place]: [facility] MEASUREMENT RESULTS: Intervals: Rate: 86 ME: 126 QRSD: 72 QT: 372 QTc: 445 [place]: P: 54 ME: 126 QRS: 17 T: 113 INTERPRETIVE STATEMENTS: Normal sinus rhythm Septal infarct, age undetermined ST & T wave abnormality, consider lateral ischemia Abnormal ECG Compared to ECG 04/13/2022 04:52:46 No significant changes Electronically Signed On 07-25-22 17:36:18 CDT by Aris Vaca
== END 2022-07-23 15:16 | disposition home or self-care (01) ==
LOC: ER 11:41
DX: R07.89 Other chest pain (principal); Z20.822 Contact with and (suspected) exposure to COVID-19; Z88.5 Allergy status to narcotic agent
CPT/HCPCS: 36415; 70450; 71045; 80048; 82947; 83690; 83735; 83880; 84484; 85025; 87811; 93005; 96361; 96365; 96368; 99284; G0480; J0610; J3475; J7040

== ENCOUNTER 2023-03-19 17:10 | Inpatient (IN) | payer SELFPAY ==
--- OUTSIDE RECORDS SUMMARY | 2023-03-19 17:24 | XMS REPORT | Continuity of Care Document ---
:1975 Author Organization [facility] t Address [address] [place] [address] Care Team Providers Name Role Phone Pcp-None Primary Care Physician Unavailable CHELO GILMORE Attending Clinician Unavailable ALCIDES BENNETT Attending Clinician Unavailable JOSE MIGUEL TELLO CARO Attending Clinician Unavailable WHIT BRUCE Attending Clinician Unavailable JANA SINGER Attending Clinician Unavailable RINKU MAYNARD Attending Clinician Unavailable PRIYA_ Attending Clinician Unavailable ESTELA CRUZ Attending Clinician Unavailable PEE WYATT Attending Clinician Unavailable JUSTINO APODACA Attending Clinician Unavailable HERNANDEZ DOWLING Attending Clinician Unavailable SABINA BOYKIN Attending Clinician Unavailable PHYLLIS YI Attending Clinician Unavailable Lucas Burkett Attending Clinician Unavailable SHARON LIZAMA Attending Clinician Unavailable MARIO TAYLOR Attending Clinician Unavailable MACI DEL ROSARIO Attending Clinician Unavailable ALINA CLAROS Attending Clinician Unavailable NI MONTEZ Attending Clinician Unavailable JUAN PRETTY Attending Clinician Unavailable Quinn Foster Attending Clinician Unavailable Ni Carr Attending Clinician Tejal Guerra DO Attending Clinician Geoffrey MUÑOZ, Autumn Attending Clinician AUTUMN KRISHNAN Attending Clinician Unavailable Jarett MUÑOZ, Ariel Whitehead Attending Clinician BOBBY BURCH Attending Clinician Dina Christian De Santiago MD Attending Clinician Bobby Burch MD Attending Clinician Meghan Sanchez MD Attending Clinician Brigette Chauhan RN Attending Clinician Unavailable Dale Junior Attending Clinician Maria Fernanda Rosa MA Attending Clinician Unavailable Patricia Rodriguez LVN Attending Clinician ARIEL DENSON Attending Clinician Unavailable Aron York DO Attending Clinician Leidy MUÑOZ, [facility] Attending Clinician SHEY RAMOS Attending Clinician Unavailable SHEY RAMOS Attending Clinician Unavailable Brett Chaves MD Attending Clinician Bal Gold MD Attending Clinician BELINDA CONTRERAS Attending Clinician Unavailable Belinda Mitchell Attending Clinician JORGE PELAYO Attending Clinician Unavailable Lorraine Trevizo MD Attending Clinician Pierce MUÑOZ, Jorge Attending Clinician Velasquez Alexander MD Attending Clinician [phone] Tor Montano MD Attending Clinician ANDREI MALHOTRA Attending Clinician Unavailable Akira Winter MD Attending Clinician Matt Ford MD Attending Clinician Ryan Cardozo MD Attending Clinician TOR MONTANO Attending Clinician Unavailable MARIA EUGENIA MANRIQUE Attending Clinician Unavailable ESTELA DEL ANGEL Admitting Clinician Unavailable JOB MURRY Admitting Clinician Unavailable ANA LENNON Admitting Clinician Unavailable KYLAH_RAMON__ Admitting Clinician Unavailable Demetrice Mcgee Admitting Clinician Unavailable JUAN PRETTY Admitting Clinician Unavailable Physician, No Primary or Family Admitting Clinician UnavailTejal Chun DO Admitting Clinician TEJAL GUERRA Admitting Clinician Unavailable MEGHAN SANCHEZ Admitting Clinician Unavailable Meghan Sanchez MD Admitting Clinician ARIEL DENSON Admitting Clinician Unavailable Ariel Denson MD Admitting Clinician SHEY RAMOS Admitting Clinician Unavailable JORGE PELAYO Admitting Clinician Unavailable Jorge Pelayo MD Admitting Clinician Matt Ford MD Admitting Clinician MARIA EUGENIA MANRIQUE Admitting Clinician Unavailable Payers Payer Name Policy Type Policy Number Effective Date Expiration Date [facility] [id number] 2023 2023 [employer] O[employer] 00:00:00 00:00:00 [place] [facility] [id number] 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 00:00:00 [facility] [id number] 2020 RETIREMENT 00:00:00 MEDICAID SSI PENDING 2020 PENDING 00:00:00 Problems Condition Condition Condition Status Onset Resolution Last Treating Co mments Source Name Details Category Date Date Treatment Clinician Date Essential Essential Disease Active Uni vers hypertensi hypertensi 5- it y of on on 00:00: [place] 00 Medical Branch Type 2 Type 2 Disease Active Univers diabetes diabetes 09-07 ity of mellitus mellitus 00:00: [place] with other with other 00 Me dical specified specified Bran ch complicati complicati on on Coronary Coronary Disease Active Unive rs artery artery 5 ity of disease disease 00:00: [place] involving involving 00 [facility] [place] coronary coronary artery of artery of [place] heart with heart with angina angina pectoris pectoris Dyslipidem Dyslipidem Disease Active U nivers ia ia 5-03 ity of 00:00: [place] 00 Medical Branch Chest pain Chest pain Disease Active U nivers 09-06 ity of 00:00: [place] 00 Medical Branch Elevated Elevated Disease Active Unive rs troponin troponin 1-16 ity of 00:00: [place] 00 Medical Branch Atypical Atypical Disease Active 2021-05 Unive rs chest pain chest pain 2-28 it y of 00:00: [place] 00 Medical Branch NSTEMI NSTEMI Disease Active 2021-05 Overview: Univer s (non-ST (non-ST 2-28 Formattin ity o f elevated elevated 00:00: g of this [place] myocardial myocardial 00 note Me dical infarction infarction might be Branch ) ) different from the original. Added automatic ally from request for surgery [id number] Chest Chest Disease Active 2021-05 Univers pain, pain, 2-10 ity of unspecifie unspecifie [place] d type d type 00 Medical Branch Closed Closed Disease Active 2021-05 Univers right hip right hip 0-30 ity of fracture, fracture, 00:00: Criss ragland initial initial 00 Medical encounter encounter Bran ch Hypothyroi Hypothyroi Disease Active 2020-05 U nivers dism due dism due 0-26 ity of to to 00:00: [place] Salma' Salma' 00 Me dical s s Branch thyroiditi thyroiditi s s Hypoglycem Hypoglycem Disease Active 2020-05 U nivers ia ia 0-25 ity of 00:00: [place] 00 Medical Branch Diabetic Diabetic Disease Active Unive rs ketoacidos ketoacidos 6-20 it y of is with is with 00:00: [place] coma coma 00 Medical associated associated Br [...] [facility] Diabetes Diabetes Disease Recurre 2017-[address] [facility] mellitus mellitus [facility] Convulsive Convulsive Disease Recurre 2017-[address] [facility] seizure seizure nce 0[facility]07 [facility] disorder disorder 00:00: Medica l with with 00 Center status status epilepticu epilepticu s s Type 1 Type 1 Disease Active [facility] diabetes diabetes ity of mellitus mellitus [place] with with Medical hypoglycem hypoglycem Br anch ia ia Allergies, Adverse Reactions, Alerts Allergy Allergy Status Severity Reaction(s) Onset Inactive Treating Comm ents Source Name Type Date Date Clinician tramadol DA Active U Angioedema [facility] m 12-03 00:00: 00 No Known DA Active U [facility] 09[facility]28 [facility] Tramadol Propensi Active Swelling Univ ers ty to 09-06 ity of adverse 00:00: [place] reaction 00 Medical s Branch TRAMADOL DRUG Active Swelling Univer s INGREDI 09-06 ity of 00:00: [place] 00 Medical Branch TRAMADOL DRUG Active N/V Univers INGREDI 11-03 ity of 00:00: [place] 00 Medical Branch Tramadol Propensi Active Nausea Univer s ty to and/or 11-03 ity of adverse Vomiting 00:00: [place] reaction 00 Medical s Branch NO KNOWN Drug Active Univers ALLERGIE Class ity of S [place] [facility] Social History Social Habit Start Date Stop Date Quantity Comments Source History SDOH Social Unive rsity of Connections [facility] Med ical Together Branch History SDOH Social Unive rsity of Connections [facility] Medical Branch History SDOH Social Unive rsity of Connections [place] [facility] Membership Branch History SDOH Social Unive rsity of [facility] Medical Meetings Branch Sexual orientation [facility] History of tobacco Cigarette Smoker University of use [place] [facility] Exposure to 2022-09-10 2022-09-20 Not sure University of SARS-CoV-2 (event) 00:00:00 09:59:00 [place] [facility] Tobacco use and 2022-09-06 2022-09-06 Smokeless Universit y of exposure 00:00:00 00:00:00 tobacco non-user [facility] dical Branch History SDOH Social 2022-05-24 2022-05-24 7 Unive rsity of Connections Living 00:00:00 00:00:00 [place] [facility] History SDOH 2022-05-24 2022-05-24 6 University o f Physical Activity 00:00:00 00:00:00 [place] M edical DPW Branch History SDOH 2022-05-24 2022-05-24 7 University o f Physical Activity 00:00:00 00:00:00 [place] M edical MPS Branch History SDOH 2022-05-24 2022-05-24 1 University o f Financial 00:00:00 00:00:00 [place] [facility] History SDOH 2022-05-24 2022-05-24 2 University o f Transport Med 00:00:00 00:00:00 [place] Medic al Branch History SDOH 2022-05-24 2022-05-24 2 University o f Transport Non-Med 00:00:00 00:00:00 [place] M edical Branch History SDOH Social 2022-05-24 2022-05-24 3 Unive rsity of Connections Phone 00:00:00 00:00:00 [facility] edical Branch Alcohol intake 2022-05-23 2022-05-23 Current drinker Unive rsity of 00:00:00 00:00:00 of alcohol [place] [facility] (finding) Branch History SDOH 2022-05-05 2022-05-05 5 University o f Alcohol Frequency 00:00:00 00:00:00 [facility] edical Branch History SDOH 2022-05-05 2022-05-05 1 University o f Alcohol Std Drinks 00:00:00 00:00:00 [place] [facility] History SDOH 2022-05-05 2022-05-05 1 University o f Alcohol Binge 00:00:00 00:00:00 [facility] al Branch Alcohol Comment 2022-03-07 2022-03-07 socially Universit y of 00:00:00 00:00:00 [facility] Sex Assigned At [address] [facility] 00:[facility] Smoking Status Start Date Stop Date Source Smokes tobacco daily 2022-09-06 00:00:00 Univers ity of [facility] Medications Ordered Filled Start Stop Current Ordering Indication Dosage Frequency Signature Comments Components Source Medication Medication Date Date Medication? Clinician (SIG) Name Name insulin No [id number] 12U inject 12 Univers glargine 5-05 06-05 Units ity of 100 unit/mL 00:00: 04:59 under the [place] injection 00 :00 skin in [facility] morning for 30 days. aspirin 81 2022- No [id number] 81mg Take 1 Univers mg chewable 5-05 06-05 tablet by it y of tablet 00:00: 04:59 mouth in [place] 00 :00 the [facility] Branch for 30 days. insulin 2022- No [id number] 12U inject 12 Univers glargine 5-05 06-05 Units ity of 100 unit/mL 00:00: 04:59 under the [place] injection 00 :00 skin in [facility] morning for 30 days. aspirin 81 2022- No [id number] 81mg Take 1 Univers mg chewable 5-05 06-05 tablet by it y of tablet 00:00: 04:59 mouth in [place] 00 :00 the [facility] morning Branch for 30 days. insulin 2022- No [id number] 12U inject 12 Univers glargine 09-09-05 Units ity of 100 unit/mL 00:00: 04:59 under the [place] injection 00 :00 skin in [facility] the Branch morning for 30 days. aspirin 81 2022- No [id number] 81mg Take 1 Univers mg chewable 09-0905 tablet by it y of tablet 00:00: 04:59 mouth in [place] 00 :00 the [facility] Branch for 30 days. Acetaminoph Yes Take by Uni vers en 500 mg 5-04 mouth as ity of Cap 10:39: needed. [address] GEMFIBROZIL Yes Take by Un lucila ORAL 5-04 mouth ity of 10:39: daily. [address] Acetaminoph Yes Take by Uni vers en 500 mg 5-04 mouth as ity of Cap 10:39: needed. [address] GEMFIBROZIL 0 Yes Take by Uni vers ORAL 5-04 mouth ity of 10:39: daily. [address] Acetaminoph 0 Yes Take by Uni vers en 500 mg 5-04 mouth as ity of Cap 10:39: needed. [address] GEMFIBROZIL 0 Yes Take by Uni vers ORAL 5-04 mouth ity of 10:39: daily. [address] lisinopriL 2022- No 20mg Take 1 Univ ers 20 mg 09-08 tablet by ity of tablet 09:49: 00:00 mouth in [place] 58 :00 the Medical morning. Branch insulin 2022- No inject Univers glargine 09-08 under the ity o f 100 unit/mL 09:49: 00:00 [place] injection 58 :00 bedtime. Medica l Branch insulin 2022- No Inject as Univ ers regular, 09-08 directed. ity o f human 09:49: 00:00 [place] (HUMULIN R 58 :00 Medical REGULAR Branch U-100 INSULN INJECTION) loperamide 2022- No 2mg Take 2 mg U nivers HCl 5-04 05-04 by mouth ity of (ANTI-DIARR 09:49: 00:00 as needed. [place] HEA ORAL) 58 :00 Medical Branch NOVOLOG 2022- No 10U inject 10 Univ ers U-100 09-08- Units ity of INSULIN 09:49: 00:00 [place] ASPART SC 58 :00 skin in Medical the Branch morning and 10 Units at noon and 10 Units in the evening. inject with meals. doxycycline 2022- No 100mg 100 mg, IV Univers (VIBRAMYCIN 09-08 Piggyback, i ty of ) 100 mg in 02:00: 01:59 Q12H ABX, [place] NaCl 0.9% 00 :00 14 doses, Medic al (NS) 100 mL First dose Br anch MINI-BAG on Mon09/07/22 at 2100, Last dose on Mon09/14/22 at 0900, Administer over 60 Minutes, 100 mL
Reas on for Anti-Infec tive: Documented Infection& lt;br>Docu mented Infection Site: Skin / Soft Tissue
Duration of Therapy: 7 days ampicillin- 2022- No 3g 3 g, IV Un lucila sulbactam 09-08 Piggyback, ity of (UNASYN) 3 01:15: 01:14 Q6H ABX, [place] in NaCl 00 :00 28 doses, Medic al 0.9% (NS) First dose Bran ch 100 mL on Mon MINI-BAG 09/07/22 at 2015, Last dose on Mon09/14/22 at 1415, Administer over 30 Minutes, 100 mL
Reas on for Anti-Infec tive: Documented Infection< br>Documen jay Infection Site: Skin / Soft Tissue
Duration of Therapy: 7 days metoprolol 2022- No [id number] 12.5mg Take 0.5 Univers tartrate 25 09-0804 tablets by i ty of mg tablet 00:00: 04:59 mouth in [place] 00 :00 the Medical morning Branch and 0.5 tablets in the evening. Do all this for 30 days. atorvastati 2022- No [id number] 40mg Take 1 Univers n 40 mg 09-08 tablet by ity of tablet 00:00: 04:59 mouth [place] 00 :00 every Medical evening Branch for 30 days. metoprolol 2022- No [id number] 12.5mg Take 0.5 Univers tartrate 25 09-08- tablets by i ty of mg tablet 00:00: 04:59 mouth in [place] 00 :00 the Medical morning Branch and 0.5 tablets in the evening. Do all this for 30 days. atorvastati 2022- No [id number] 40mg Take 1 Univers n 40 mg 09-08- tablet by ity of tablet 00:00: 04:59 mouth [place] 00 :00 every Medical evening Branch for 30 days. metoprolol 2022- No [id number] 12.5mg Take 0.5 Univers tartrate 25 09-08 tablets by i ty of mg tablet 00:00: 04:59 mouth in [place] 00 :00 the Medical morning Branch and 0.5 tablets in the evening. Do all this for 30 days. atorvastati 2022- No [id number] 40mg Take 1 Univers n 40 mg 09-08 tablet by ity of tablet 00:00: 04:59 mouth [place] 00 :00 every Medical evening Branch for 30 days. atorvastati Yes 40mg 40 mg, Univ ers n (LIPITOR) 5-03 Oral, QPM, it y of tablet 40 22:00: First dose [place] mg 00 on Mon Medical 09/07/22 at Branch 1700, Until Discontinu ed, Routine iopamidol 2022- No [id number] 84mL 84 mL, U nivers (ISOVUE 5-03 05-03 Intravenou ity o f 370-500 mL) 19:15: 19:15 s, ONCE, 1 [place] injection 00 :00 dose, On Medica l 84 mL [facility] 09/07/22 Branch at 1415, Routine insulin Yes 12U 12 Units, Unive rs glargine 5-03 Subcutaneo ity o f (LANTUS 14:00: us, DAILY, [place] U-100) 00 First dose Medical injection on Mon Branch 12 Units 09/07/22 at 0900, Until Discontinu ed, Routine iopamidol 2022- No [id number] 150mL 150 mL, Univers (ISOVUE 09-07-03 Intravenou ity o f 370-500 mL) 11:30: 10:39 s, ONCE, 1 [place] injection 00 :00 dose, On Medica l 150 mL 09/07/22 Branch at 0630, Routine heparin 0 Yes 5000U 5,000 Univers (porcine) 03 Units, ity of injection 03:00: Subcutaneo [place] 5,000 Units 00 us, Q8H, Medi rogers First dose Branch on Mon09/06/22 at 2200, Until Discontinu ed, Routine Sliding 0 Yes Subcutaneo Univ ers Scale 5-03 us, TID ity of Insulin - 02:00: MEALS+HS, [place] Lispro 00 First dose Medical (HumaLOG) on Mon09/06/22 at 2100, Until Discontinu ed, Routine metoprolol Yes 12.5mg 12.5 mg, U nivers tartrate 03 Oral, BID, ity o f (LOPRESSOR) 01:30: First dose [place] tablet 12.5 00 on Mon Medica l mg 09/06/22 at Branch 2030, Until Discontinu ed, Routine aspirin Yes 81mg 81 mg, Univers chewable 03 Oral, ity of tablet 81 01:30: DAILY, [place] mg 00 First dose Medical on Mon Branch 09/06/22 at 2030, Until Discontinu ed, Routine ondansetron Yes 4mg 4 mg, Slow Univers (ZOFRAN 09-07 IV Push, ity of (PF)) 01:16: Q6HPRN, [place] injection 4 26 Starting Medi rogers mg on Mon09/06/22 at 2016, Until Discontinu ed, Routine, Nausea and Vomiting (N/V) FENTanyl PF 0 2022- No 25ug 25 mcg, Un lucila (SUBLIMAZE 09-07 05-04 Slow IV ity o f (PF)) 01:15: 01:14 Push, [place] injection 55 :55 Q3HPRN, Medical 25 mcg Starting Branch on Mon09/06/22 at 2015, Until Mon09/07/22 at 2014, Routine, Pain (scale 7-10) glucagon Yes 1mg 1 mg, Univers (GLUCAGEN 09-06 Intramuscu ity of DIAGNOSTIC 23:31: lar, PRN, [place] KIT) 24 Starting Medical injection 1 on [facility] 09/06/22 at 1831, Until Discontinu ed, MARCOS, Blood Glucose < or = 70 mg/dL and patient is NPO, unable to swallow or has mental changes. dextrose 50 Yes 25mL 25 mL, Univ ers % in water 09-06 Slow IV ity of (D50W) 23:31: Push, PRN, [place] injection 24 Starting Medica l 25 mL on [facility] 09/06/22 at 1831, Until Discontinu ed, MARCOS, Blood Glucose < or = 70 mg/dL and patient is NPO, unable to swallow or has mental status changes. acetaminoph Yes 650mg 650 mg, Un lucila en -02 Oral, ity of (TYLENOL) 23:30: Q6HPRN, [place] tablet 650 36 Starting Medic al mg on [facility] 09/06/22 at 1830, Until Discontinu ed, Routine, Pain (scale 1-3) lisinopriL Yes 20mg Take 1 Unive rs 20 mg 09-06 tablet by ity of tablet 18:01: mouth in [place] 53 the Medical morning. [place] insulin Yes inject Univers glargine 09-06 under the ity of 100 unit/mL 18:01: skin at [place] injection 53 bedtime. Medica l [place] insulin Yes Inject as Unive rs regular, 09-06 directed. ity of human 18:01: [place] (HUMULIN R 53 Medical REGULAR Branch U-100 INSULN INJECTION) loperamide Yes 2mg Take 2 mg Un lucila HCl 02 by mouth ity of (ANTI-DIARR 18:01: as needed. [place] HEA ORAL) 53 Medical Branch Acetaminoph Yes Take by Uni vers en 500 mg 5-02 mouth as ity of Cap 18:01: needed. [place] 53 Medical Branch GEMFIBROZIL Yes Take by Uni vers ORAL 5-02 mouth ity of 18:01: daily. [address] NOVOLOG 3-0 Yes 10U inject 10 Unive rs U-100 5-02 Units ity of INSULIN 18:01: under the [place] ASPART SC 53 skin in Medical the Branch morning and 10 Units at noon and 10 Units in the evening. inject with meals. GEMFIBROZIL 3-0 Yes Take by Uni vers ORAL 5-02 mouth ity of 17:00: daily. [address] GEMFIBROZIL 2022-0 Yes Take by Uni vers ORAL 5-02 mouth ity of 17:00: daily. [address] GEMFIBROZIL 2022-0 Yes Take by Uni vers ORAL 5-02 mouth ity of 17:00: daily. [address] lisinopriL 3-0 Yes 20mg Take 1 Unive rs 20 mg 5-02 tablet by ity of tablet 15:22: mouth in [place] [address] the Medical morning. Branch lisinopriL 2023-0 Yes 20mg Take 1 Unive rs 20 mg 5-02 tablet by ity of tablet 15:22: mouth in [place] [address] the Medical morning. Branch lisinopriL 2023-0 Yes 20mg Take 1 Unive rs 20 mg 5-02 tablet by ity of tablet 15:22: mouth in [place] [address] the Medical morning. Branch lisinopriL 2023-0 Yes 20mg Take 1 Unive rs 20 mg 5-02 tablet by ity of tablet 15:22: mouth in [place] [address] the Medical morning. Branch lisinopriL 3-0 Yes 20mg Take 1 Unive rs 20 mg 5-02 tablet by ity of tablet 15:22: mouth in [place] [address] the Medical morning. Branch loperamide 3-0 Yes 2mg Take 2 mg Un lucila HCl 5-02 by mouth ity of (ANTI-DIARR [facility]:22[facility] [address] Acetaminoph 3-0 Yes Take by Uni vers en 500 mg 5-02 mouth as ity of Cap 15:22: needed. [address] loperamide 3-0 Yes 2mg Take 2 mg Un lucila HCl 5-02 by mouth ity of (ANTI-DIARR 15:22: as needed. [address] Acetaminoph 2022-0 Yes Take by Uni vers en 500 mg 5-02 mouth as ity of Cap 15:22: needed. [address] Branch loperamide Yes 2mg Take 2 mg Un lucila HCl 5-02 by mouth ity of (ANTI-DIARR 15:22: as needed. [place] HEA ORAL) [address] [place] [address] Branch Acetaminoph Yes Take by Uni vers en 500 mg 5-02 mouth as ity of Cap 15:22: needed. [address] loperamide Yes 2mg Take 2 mg Un lucila HCl 5-02 by mouth ity of (ANTI-DIARR 15:22: as needed. [place] HEA ORAL) [address] [place] [address] Acetaminoph Yes Take by Uni vers en 500 mg 5-02 mouth as ity of Cap 15:22: needed. [address] loperamide Yes 2mg Take 2 mg Un lucila HCl 5-02 by mouth ity of (ANTI-DIARR 15:22: as needed. [place] HEA ORAL) [address] [place] [address] Acetaminoph Yes Take by Uni vers en 500 mg 5-02 mouth as ity of Cap 15:22: needed. [address] Branch insulin Yes inject Univers glargine 5-02 under the ity of (LANTUS 15:21: skin at [place] U-100 42 bedtime. Medical INSULIN) Branch 100 unit/mL injection insulin Yes Inject as Unive rs regular, 5-02 directed. ity of human 15:21: [place] (HUMULIN R 42 Medical REGULAR Branch U-100 INSULN INJECTION) insulin Yes inject Univers glargine 5-02 under the ity of (LANTUS 15:21: skin at [place] U-100 42 bedtime. Medical INSULIN) Branch 100 unit/mL injection insulin Yes Inject as Unive rs regular, 5-02 directed. ity of human 15:21: [place] (HUMULIN R 42 Medical REGULAR Branch U-100 INSULN INJECTION) insulin Yes inject Univers glargine 5-02 under the ity of (LANTUS 15:21: skin at [place] U-100 42 bedtime. Medical INSULIN) Branch 100 unit/mL injection insulin Yes Inject as Unive rs regular, 5-02 directed. ity of human 15:21: [place] (HUMULIN R 42 Medical REGULAR Branch U-100 INSULN INJECTION) insulin Yes inject Univers glargine -02 under the ity of (LANTUS 15:21: skin at [place] U-100 42 bedtime. Medical INSULIN) Branch 100 unit/mL injection insulin 0 Yes Inject as Unive rs regular, 09-06 directed. ity of human 15:21: [place] (HUMULIN R 42 Medical REGULAR Branch U-100 INSULN INJECTION) insulin Yes inject Univers glargine 02 under the ity of (LANTUS 15:21: skin at [place] U-100 42 bedtime. Medical INSULIN) Branch 100 unit/mL injection insulin 0 Yes Inject as Unive rs regular, 09-06 directed. ity of human 15:21: [place] (HUMULIN R 42 Medical REGULAR Branch U-100 INSULN INJECTION) aspirin 81 2022- No [id number] 81mg Take 1 Univers mg chewable 18 18 tablet by it y of tablet 00:00: 05:59 mouth in [place] 00 :00 [facility] for [facility]. pantoprazol 2022- No [id number] 40mg Take 1 Univers e 40 mg EC 18 18 tablet by ity of tablet 00:00: 05:59 mouth in [place] 00 :00 [facility] for 30 days. aspirin 81 2022- No [id number] 81mg Take 1 Univers mg chewable 18 18 tablet by it y of tablet 00:00: 05:59 mouth in [place] 00 :00 [facility] for 30 days. pantoprazol 2022- No [id number] 40mg Take 1 Univers e 40 mg EC 18 -18 tablet by ity of tablet 00:00: 05:59 mouth in [place] 00 :00 [facility] for 30 days. atorvastati Yes 80mg 80 mg, Univ ers n (LIPITOR) 1-17 Oral, QPM, it y of tablet 80 23:00: First dose [place] mg 00 on [facility] 05/24/22 at Branch 1700, Until Discontinu ed, Routine KCL 2022- No 40meq 40 mEq, Univers (KLOR-CON 05-24 Oral, ity of M20) tablet 22:15: 23:14 ONCE, 1 [place] 40 mEq 00 :00 dose, On Medical [facility] 05/24/22 at 1615, Routine gabapentin 0 Yes 100mg Take 100 Un lucila 100 mg 1-17 mg by ity of capsule 20:19: mouth in [place] 49 the Medical morning. Branch Thyroid, 2022-0 Yes 120mg Take 120 Univ ers Pork, 1-17 mg by ity of (ARMOUR 20:19: mouth [place] THYROID) 49 daily. Medical 120 mg Branch tablet gabapentin 0 Yes 100mg Take 100 Un lucila 100 mg 1-17 mg by ity of capsule 20:19: mouth in [place] 49 the Medical morning. Branch Thyroid, 0 Yes 120mg Take 120 Univ ers Pork, 1-17 mg by ity of (ARMOUR 20:19: mouth [place] THYROID) 49 daily. Medical 120 mg Branch tablet insulin Yes 10U 10 Units, Unive rs regular 17 Subcutaneo ity of human 15:15: us, BIDAC, [place] (HUMULIN R) 00 First dose Me dical injection on [facility] 10 Units 05/24/22 at 0915, Until Discontinu ed, Routine
Indica tion for insulin: Hyperglyce yvan pantoprazol Yes 40mg 40 mg, Univ ers e 05-24 Oral, ity of (PROTONIX) 15:00: DAILY, [place] EC tablet 00 First dose Medi [facility]gers 40 mg on [facility] [facility] 05/24/22 at 0900, Until Discontinu ed, Routine insulin NPH Yes 20U 20 Units, U nivers (HUMULIN N) 17 Subcutaneo it y of injection 15:00: us, [place] 20 Units 00 QAM+PM, Medical First dose Branch on [facility] 05/24/22 at 0900, Until Discontinu ed, Routine gabapentin 0 Yes 100mg 100 mg, Uni vers (NEURONTIN) 17 Oral, ity of capsule 100 15:00: DAILY, [place] mg 00 First dose Medical on [facility] 05/24/22 at 0900, Until Discontinu ed, Routine aspirin 0 Yes 81mg 81 mg, Univers chewable 1-17 Oral, ity of tablet 81 15:00: DAILY, [place] mg 00 First dose Medical on Branch 05/24/22 at 0900, Until Discontinu ed, Routine ticagrelor Yes 90mg 90 mg, [facility] rs (BRILINTA) - Oral, BID, ity of tablet 90 14:00: First dose [place] mg 00 on [facility] Medical 05/24/22 at Branch 0800, Until Discontinu ed, Routine Sliding Yes Subcutaneo Univ ers Scale -17 us, AC+HS, ity of Insulin-Reg 13:30: First dose [place] ular + Fsbg 00 on [facility] l Testing 05/24/22 at Branch 0730, Until Discontinu ed, Routine HEPARIN 0 2022- No 60U/kg 3,810 Univer s SODIUM 05-24-17 Units (60 ity of (PORCINE) 05:30: 05:49 Units/kg [place] 1,000 00 :00 ?63.5 kg), Medical UNIT/ML IV Push, Branch BOLUS ACS ONCE, 1 ORDER SET dose, On Mon05/23/22 at 2330, MARCOS heparin Yes 0U/h 0-2,150 Univers 25,000 -17 Units/hr ity of Units/250 05:14: (0-21.5 [place] mL 33 mL/hr), IV Medical (Premixed Infusion, Branc h Bag) in TITRATE, 0.45 % NS Parameters in Admin. Instr., Starting on Mon05/23/22 at 2314
In itiate infusion at 12 [...] therapy. Range, Dosing and Testing: &nbs p;FOR [facility], AND [facility] ONLY &nbs p; - aPTT < [...] INITIAL BOLUS OR INITIAL INFUSION RATE.
heparin Yes 3000U FOR Univers (1,000 1-17 REBOLUSING ity of unit/mL, 10 05:14: , Starting [place] mL vial) 23 on [facility] for 05/23/22 at [place] Rebolusing 2314, Until Discontinu ed, Routine
Dosing based on aPPT testing parameters (refer to continuous heparin drip order).
dextrose 0 Yes 250mL 250 mL, IV Un lucila 10% (D10W) -17 Infusion, ity of bolus 05:12: PRN - SEE [place] infusion 48 INSTRUCTIO Medic al 250 mL , [place] Administer over 60 Minutes, Other, If blood glucose is < or = 70 mg/dL and patient is unable to swallow or has mental status changes, Starting on [facility] 05/23/22 at 2312
If blood glucose is [...] glucose is < 80 mg/dL, repeat.
glucagon Yes 1mg 1 mg, Univers (GLUCAGEN 1-17 Intramuscu ity of DIAGNOSTIC 05:12: lar, PRN, [place] KIT) 46 Starting Medical injection 1 on Mon Branch mg 05/23/22 at 2312, Until Discontinu ed, MARCOS, Blood Glucose < or = 70 mg/dL and patient is unable to swallow or has mental changes. acetaminoph Yes 650mg 650 mg, Un lucila en 05-24 Oral, ity of (TYLENOL) 05:12: Q6HPRN, [place] tablet 650 30 Starting Medic al mg on Mon Branch 05/23/22 at 2312, Until Discontinu ed, Routine, Pain (scale 1-3) nitroglycer Yes .4mg 0.4 mg, Uni vers in 05-24 Sublingual ity of (NITROSTAT) 05:10: , Q5MIN [place] sublingual 31 PRN, Medical tablet 0.4 Starting Branc h mg on 05/23/22 at 2310, Until Discontinu ed, Routine, Chest pain aspirin 2022- No 325mg 325 mg, Unive rs tablet 325 05-24 Oral, ity of mg 04:30: 03:29 ONCE, 1 [place] 00 :00 dose, On Medical Mon Branch 05/23/22 at 2230, MARCOS insulin NPH 2022- No [id number] 20U inject 20 Univers 100 unit/mL 05-24 Units ity of injection 00:00: 05:59 under the [place] 00 :00 skin every Medical morning Branch and evening for 30 days. nitroglycer 2022- No [id number] .4mg Place 1 Univers in 0.4 mg 05-24 tablet ity of sublingual 00:00: 05:59 under the [place] tablet 00 :00 tongue Medical every 5 Branch (five) minutes as needed for Chest pain for up to 30 days. insulin 2022- No [id number] 10U inject 10 Univers regular 05-24 Units ity of human 100 00:00: 05:59 under the [place] unit/mL 00 :00 skin 2 Medical injection (two) Branch times daily before breakfast and dinner for 30 days. ticagrelor 2022- No [id number] 90mg Take 1 Univers 90 mg 05-24 tablet by ity of tablet 00:00: 05:59 mouth in [place] 00 :00 the Medical morning Branch and 1 tablet in the evening. Do all this for 30 days. atorvastati No [id number] 80mg Take 2 Univers n 40 mg 05-24 tablets by ity o f tablet 00:00: 05:59 mouth [place] 00 :00 every Medical evening Branch for 30 days. insulin NPH No [id number] 20U inject 20 Univers 100 unit/mL 05-24 Units ity of injection 00:00: 05:59 under the [place] 00 :00 skin every Medical morning Branch and evening for 30 days. nitroglycer No [id number] .4mg Place 1 Univers in 0.4 mg 05-24 tablet ity of sublingual 00:00: 05:59 under the [place] tablet 00 :00 tongue Medical every 5 Branch (five) minutes as needed for Chest pain for up to 30 days. insulin No [id number] 10U inject 10 Univers regular 05-24 Units ity of human 100 00:00: 05:59 under the [place] unit/mL 00 :00 skin 2 Medical injection (two) Branch times daily before breakfast and dinner for 30 days. ticagrelor No [id number] 90mg Take 1 Univers 90 mg 05-24 tablet by ity of tablet 00:00: 05:59 mouth in [place] 00 :00 the Medical morning Branch and 1 tablet in the evening. Do all this for 30 days. atorvastati No [id number] 80mg Take 2 Univers n 40 mg 05-24 tablets by ity o f tablet 00:00: 05:59 mouth [place] 00 :00 every Medical evening Branch for 30 days. pantoprazol 2023- No [id number] 40mg Take 1 Univers e 40 mg EC 05-08 tablet by ity of tablet 00:00: 05:59 mouth in [place] 00 :00 the Medical morning. Branch pantoprazol 2023- No [id number] 40mg Take 1 Univers e 40 mg EC 05-08 tablet by ity of tablet 00:00: 05:59 mouth in [place] 00 :00 the Medical morning. Branch pantoprazol 2022-0 2023- No [id number] 40mg Take 1 Univers e 40 mg EC 05-08 tablet by ity of tablet 00:00: 05:59 mouth in [place] 00 :00 the Medical morning. Branch pantoprazol 2022-0 2023- No [id number] 40mg Take 1 Univers e 40 mg EC 05-08 tablet by ity of tablet 00:00: 05:59 mouth in [place] 00 :00 the Medical morning. Branch pantoprazol 2022-0 2023- No [id number] 40mg Take 1 Univers e 40 mg EC 05-08 tablet by ity of tablet 00:00: 05:59 mouth in [place] 00 :00 the Medical morning. Branch pantoprazol 2022-0 2023- No [id number] 40mg Take 1 Univers e 40 mg EC 05-08 tablet by ity of tablet 00:00: 05:59 mouth in [place] 00 :00 the Medical morning. Branch pantoprazol 2022-0 2023- No [id number] 40mg Take 1 Univers e 40 mg EC 05-08 tablet by ity of tablet 00:00: 05:59 mouth in [place] 00 :00 the Medical morning. Branch pantoprazol 2022-0 2023- No [id number] 40mg Take 1 Univers e 40 mg EC 05-08 tablet by ity of tablet 00:00: 05:59 mouth in [place] 00 :00 the Medical morning. Branch pantoprazol 2022-0 2023- No [id number] 40mg Take 1 Univers e 40 mg EC 05-08 tablet by ity of tablet 00:00: 05:59 mouth in [place] 00 :00 the Medical morning. Branch pantoprazol 3-0 4- No [id number] 40mg Take 1 Univers e 40 mg EC 05-08 tablet by ity of tablet 00:00: 05:59 mouth in [place] 00 :00 the Medical morning. Branch pantoprazol 3-0 4- No [id number] 40mg Take 1 Univers e 40 mg EC 05-08 tablet by ity of tablet 00:00: 05:59 mouth in [place] 00 :00 the Medical morning. Branch pantoprazol 2023- No [id number] 40mg Take 1 Univers e 40 mg EC 05-08 tablet by ity of tablet 00:00: 05:59 mouth in [place] 00 :00 the Medical morning. Branch pantoprazol 2023- No [id number] 40mg Take 1 Univers e 40 mg EC 05-08 tablet by ity of tablet 00:00: 05:59 mouth in [place] 00 :00 the Medical morning. Branch pantoprazol 2023- No [id number] 40mg Take 1 Univers e 40 mg EC 05-08 tablet by ity of tablet 00:00: 05:59 mouth in [place] 00 :00 the Medical morning. Branch pantoprazol 2023- No [id number] 40mg Take 1 Univers e 40 mg EC 05-08 tablet by ity of tablet 00:00: 05:59 mouth in [place] 00 :00 the Medical morning. Branch pantoprazol No [id number] 40mg Take 1 Univers e 40 mg EC 05-08 tablet by ity of tablet 00:00: 00:00 mouth in [place] 00 :00 the Medical morning. Branch atorvastati 2021-05 Yes 80mg 80 mg, Univ ers n (LIPITOR) 2 Oral, QPM, it y of tablet 80 23:00: First dose [place] mg 00 (after Medical last Branch modificati on) on 05/07/22 at 1700, Until Discontinu ed, Routine atorvastati 2021-05 No 80mg 80 mg, Uni vers n (LIPITOR) 05-07 Oral, QPM, i ty of tablet 80 23:00: 23:28 First dose [place] mg 00 :33 (after Medical last Branch modificati on) on 05/07/22 at 1700, Until Discontinu ed, Routine insulin NPH 2021-05 Yes 10U 10 Units, U nivers and regular Subcutaneo it y of human 70-30 22:30: us, [facility], [place] (70-30 00 First dose Medical U-100 on Sat Branch INSULIN) 05/07/22 100 unit/mL at 1630, (70-30) Until injection Discontinu 10 Units ed, Routine insulin NPH 2021-05 10U 10 Units, Univers and regular -05-07 Subcutaneo i ty of human 22:30: 23:28 , [place], [place] ( 00 :33 First dose Medical U-100 on Sat Branch INSULIN) 05/07/22 100 unit/mL at 1630, (70-30) Until injection Discontinu 10 Units ed, Routine gabapentin 2021-05 Yes 100mg Take 100 Un lucila 100 mg 2-31 mg by ity of capsule 15:28: mouth in [place] 31 the Medical morning. Branch Thyroid, 2021-05 Yes 120mg Take 120 Univ ers [place], 2-31 mg by ity of (ARMOUR 15:28: mouth [place] THYROID) 31 daily. Medical 120 mg Branch tablet gabapentin 2021-05 Yes 100mg Take 100 Un lucila 100 mg 2-31 mg by ity of capsule 15:28: mouth in [place] 31 the Medical morning. Branch Thyroid, 2021-05 Yes 120mg Take 120 Univ ers [place], 2-31 mg by ity of (ARMOUR 15:28: mouth [place] THYROID) 31 daily. Medical 120 mg Branch tablet gabapentin 2021-05 Yes 100mg Take 100 Un lucila 100 mg 2-31 mg by ity of capsule 15:28: mouth in [place] 31 the Medical morning. Branch Thyroid, 2021-05 Yes 120mg Take 120 Univ ers [place], 2-31 mg by ity of (ARMOUR 15:28: mouth [place] THYROID) 31 daily. Medical 120 mg Branch tablet gabapentin 2021-05 Yes 100mg Take 100 Un lucila 100 mg 2-31 mg by ity of capsule 15:28: mouth in [place] 31 the Medical morning. Branch Thyroid, 2021-05 Yes 120mg Take 120 Univ ers [place], 2-31 mg by ity of (ARMOUR 15:28: mouth [place] THYROID) 31 daily. Medical 120 mg Branch tablet gabapentin 2021-05 Yes 100mg Take 100 Un lucila 100 mg 2-31 mg by ity of capsule 15:28: mouth in [place] 31 the Medical morning. Branch Thyroid, 2021-05 Yes 120mg Take 120 Univ ers [place], 2-31 mg by ity of (ARMOUR 15:28: mouth [place] THYROID) 31 daily. Medical 120 mg Branch tablet gabapentin 2021-05 Yes 100mg Take 100 Un lucila 100 mg 2-31 mg by ity of capsule 15:28: mouth in [place] 31 the Medical morning. Branch Thyroid, 2021-05 Yes 120mg Take 120 Univ ers [place], 2-31 mg by ity of (ARMOUR 15:28: mouth [place] THYROID) 31 daily. Medical 120 mg Branch tablet gabapentin 2021-05 Yes 100mg Take 100 Un lucila 100 mg 2-31 mg by ity of capsule 15:28: mouth in [place] 31 the Medical morning. Branch Thyroid, 2021-05 Yes 120mg Take 120 Univ ers [place], 2-31 mg by ity of (ARMOUR 15:28: mouth [place] THYROID) 31 daily. Medical 120 mg Branch tablet gabapentin 2021-05 Yes 100mg Take 100 Un lucila 100 mg 2-31 mg by ity of capsule 15:28: mouth in [place] 31 the Medical morning. Branch Thyroid, 2021-05 Yes 120mg Take 120 Univ ers [place], 2-31 mg by ity of (ARMOUR 15:28: mouth [place] THYROID) 31 daily. Medical 120 mg Branch tablet gabapentin 2021-05 Yes 100mg Take 100 Un lucila 100 mg 2-31 mg by ity of capsule 15:28: mouth in [place] 31 the Medical morning. Branch Thyroid, 2021-05 Yes 120mg Take 120 Univ ers [place], 2-31 mg by ity of (ARMOUR 15:28: mouth [place] THYROID) 31 daily. Medical 120 mg Branch tablet gabapentin 2021-05 Yes 100mg Take 100 Un lucila 100 mg 2-31 mg by ity of capsule 15:28: mouth in [place] 31 the Medical morning. Branch Thyroid, 2021-05 Yes 120mg Take 120 Univ ers [place], 2-31 mg by ity of (ARMOUR 15:28: mouth [place] THYROID) 31 daily. Medical 120 mg Branch tablet gabapentin 2021-05 Yes 100mg Take 100 Un lucila 100 mg 2-31 mg by ity of capsule 15:28: mouth in [place] 31 the Medical morning. Branch Thyroid, 2021-05 Yes 120mg Take 120 Univ ers [place], 2-31 mg by ity of (ARMOUR 15:28: mouth [place] THYROID) 31 daily. Medical 120 mg Branch tablet gabapentin 2021-05 Yes 100mg Take 100 Un lucila 100 mg 2-31 mg by ity of capsule 15:28: mouth in [place] 31 the Medical morning. Branch Thyroid, 2021-05 Yes 120mg Take 120 Univ ers [place], 2-31 mg by ity of (ARMOUR 15:28: mouth [place] THYROID) 31 daily. Medical 120 mg Branch tablet gabapentin 2021-05 Yes 100mg Take 100 Un lucila 100 mg 2-31 mg by ity of capsule 15:28: mouth in [place] 31 the Medical morning. Branch Thyroid, 2021-05 Yes 120mg Take 120 Univ ers [place], 2-31 mg by ity of (ARMOUR 15:28: mouth [place] THYROID) 31 daily. Medical 120 mg Branch tablet gabapentin 2021-05 Yes 100mg Take 100 Un lucila 100 mg 2-31 mg by ity of capsule 15:28: mouth in [place] 31 the Medical morning. Branch Thyroid, 2021-05 Yes 120mg Take 120 Univ ers [place], 2-31 mg by ity of (ARMOUR 15:28: mouth [place] THYROID) 31 daily. Medical 120 mg Branch tablet gabapentin 2021-05 Yes 100mg Take 100 Un lucila 100 mg 2-31 mg by ity of capsule 15:28: mouth in [place] 31 the Medical morning. Branch Thyroid, 2021-05 Yes 120mg Take 120 Univ ers [place], 2-31 mg by ity of (ARMOUR 15:28: mouth [place] THYROID) 31 daily. Medical 120 mg Branch tablet Sliding 2021-05 Yes Subcutaneo Univ ers Scale 2- us, Q4H, ity of Insulin - 15:15: First dose [place] Lispro 00 (after Medical (HumaLOG) + last Branch Fsbg modificati Testing on) on 05/07/22 at 0915, Until Discontinu ed, Routine Sliding 2021-05 Subcutaneo Uni vers Scale 2- 12- us, Q4H, ity of Insulin - 15:15: [...] Until Discontinu ed, Routine insulin NPH 2021-05 20U 20 Units, Univers (HUMULIN N) 05-07 Subcutaneo i ty of injection 15:00: 23:28 us, [place] 20 Units 00 :33 QAM+HS, Medical First dose Branch (after last modificati on) on 05/07/22 at 0900, Until Discontinu ed, Routine insulin 2021-05 No 10U 10 Units, Univ ers lispro 05-07 Subcutaneo ity of (human) 14:00: 18:49 , D [place] (HumaLOG 00 :20 MEALS, Medical U-100) First dose Branch injection (after 10 Units last modificati on) on 05/07/22 at 0800, Until Discontinu ed, Routine insulin 2021-05 20U inject 20 Univ ers detemir 05-07 Units ity of U-100 100 13:35: 00:00 under the [place] unit/mL 50 :00 skin at Medical injection bedtime. Branch insulin 2021-05 20U inject 20 Univ ers detemir 05-07 Units ity of U-100 100 13:35: 00:00 under the [place] unit/mL 50 :00 skin at Medical injection bedtime. Branch magnesium 2021-05 4g 4 g, IV Univ ers sulfate in 05-07 Piggyback, it y of water 4 10:45: 12:23 at 25 [place] gram/50 mL 00 :00 mL/hr Medical (8 %) IV Administer Branc h Piggyback 4 over 120 g Minutes, ONCE, 1 dose, On 05/07/22 at 0445, Routine atorvastati 2021-05 Yes [id number] 80mg Take 2 Univers n 40 mg -31 tablets by ity of tablet 00:00: mouth [place] 00 every Medical evening. Branch insulin NPH 2021-05 Yes [id number] 10U inject 10 Univers and regular 2-31 Units ity of human 70-30 00:00: under the [place] 100 unit/mL 00 skin 2 Medica l (70-30) (two) Branch injection times daily before breakfast and dinner. insulin NPH 2021-05 Yes [id number] 20U inject 20 Univers 100 unit/mL 2-31 Units ity of injection 00:00: under the [place] 00 skin every Medical morning Branch and evening. atorvastati 2021-05 Yes [id number] 80mg Take 2 Univers n 40 mg 2-31 tablets by ity of tablet 00:00: mouth [place] 00 every Medical evening. Branch insulin NPH 2021-05 Yes [id number] 10U inject 10 Univers and regular 2-31 Units ity of human 70-30 00:00: under the [place] 100 unit/mL 00 skin 2 Medica l (70-30) (two) Branch injection times daily before breakfast and dinner. insulin NPH 2021-05 Yes [id number] 20U inject 20 Univers 100 unit/mL 2-31 Units ity of injection 00:00: under the [place] 00 skin every Medical morning Branch and evening. atorvastati 2021-05 Yes [id number] 80mg Take 2 Univers n 40 mg 2-31 tablets by ity of tablet 00:00: mouth [place] 00 every Medical evening. Branch insulin NPH 2021-05 Yes [id number] 10U inject 10 Univers and regular 2-31 Units ity of human 70-30 00:00: under the [place] 100 unit/mL 00 skin 2 Medica l (70-30) (two) Branch injection times daily before breakfast and dinner. insulin NPH 2021-05 Yes [id number] 20U inject 20 Univers 100 unit/mL 2-31 Units ity of injection 00:00: under the [place] 00 skin every Medical morning Branch and evening. atorvastati 2021-05 Yes [id number] 80mg Take 2 Univers n 40 mg 2-31 tablets by ity of tablet 00:00: mouth [place] 00 every Medical evening. Branch insulin NPH 2021-05 Yes [id number] 10U inject 10 Univers and regular 2-31 Units ity of human 70-30 00:00: under the [place] 100 unit/mL 00 skin 2 Medica l (70-30) (two) Branch injection times daily before breakfast and dinner. insulin NPH 2021-05 Yes [id number] 20U inject 20 Univers 100 unit/mL 2-31 Units ity of injection 00:00: under the [place] 00 skin every Medical morning Branch and evening. atorvastati 2021-05 Yes [id number] 80mg Take 2 Univers n 40 mg 2-31 tablets by ity of tablet 00:00: mouth [place] 00 every Medical evening. Branch insulin NPH 2021-05 Yes [id number] 10U inject 10 Univers and regular 2-31 Units ity of human 70-30 00:00: under the [place] 100 unit/mL 00 skin 2 Medica l (70-30) (two) Branch injection times daily before breakfast and dinner. insulin NPH 2021-05 Yes [id number] 20U inject 20 Univers 100 unit/mL 2-31 Units ity of injection 00:00: under the [place] 00 skin every Medical morning Branch and evening. atorvastati 2021-05 Yes [id number] 80mg Take 2 Univers n 40 mg 2-31 tablets by ity of tablet 00:00: mouth [place] 00 every Medical evening. Branch insulin NPH 2021-05 Yes [id number] 10U inject 10 Univers and regular 2-31 Units ity of human 70-30 00:00: under the [place] 100 unit/mL 00 skin 2 Medica l (70-30) (two) Branch injection times daily before breakfast and dinner. insulin NPH 2021-05 Yes [id number] 20U inject 20 Univers 100 unit/mL 2-31 Units ity of injection 00:00: under the [place] 00 skin every Medical morning Branch and evening. atorvastati 2021-05 Yes [id number] 80mg Take 2 Univers n 40 mg 2-31 tablets by ity of tablet 00:00: mouth [place] 00 every Medical evening. Branch insulin NPH 2021-05 Yes [id number] 10U inject 10 Univers and regular 2-31 Units ity of human 70-30 00:00: under the [place] 100 unit/mL 00 skin 2 Medica l (70-30) (two) Branch injection times daily before breakfast and dinner. insulin NPH 2021-05 Yes [id number] 20U inject 20 Univers 100 unit/mL 2-31 Units ity of injection 00:00: under the [place] 00 skin every Medical morning Branch and evening. atorvastati 2021-05 Yes [id number] 80mg Take 2 Univers n 40 mg 2-31 tablets by ity of tablet 00:00: mouth [place] 00 every Medical evening. Branch insulin NPH 2021-05 Yes [id number] 10U inject 10 Univers and regular 2-31 Units ity of human 70-30 00:00: under the [place] 100 unit/mL 00 skin 2 Medica l (70-30) (two) Branch injection times daily before breakfast and dinner. insulin NPH 2021-05 Yes [id number] 20U inject 20 Univers 100 unit/mL 2-31 Units ity of injection 00:00: under the [place] 00 skin every Medical morning Branch and evening. atorvastati 2021-05 Yes [id number] 80mg Take 2 Univers n 40 mg 2-31 tablets by ity of tablet 00:00: mouth [place] 00 every Medical evening. Branch insulin NPH 2021-05 Yes [id number] 10U inject 10 Univers and regular 2-31 Units ity of human 70-30 00:00: under the [place] 100 unit/mL 00 skin 2 Medica l (70-30) (two) Branch injection times daily before breakfast and dinner. insulin NPH 2021-05 Yes [id number] 20U inject 20 Univers 100 unit/mL 2-31 Units ity of injection 00:00: under the [place] 00 skin every Medical morning Branch and evening. atorvastati 2021-05 Yes [id number] 80mg Take 2 Univers n 40 mg 2-31 tablets by ity of tablet 00:00: mouth [place] 00 every Medical evening. Branch insulin NPH 2021-05 Yes [id number] 10U inject 10 Univers and regular 2-31 Units ity of human 70-30 00:00: under the [place] 100 unit/mL 00 skin 2 Medica l (70-30) (two) Branch injection times daily before breakfast and dinner. insulin NPH 2021-05 Yes [id number] 20U inject 20 Univers 100 unit/mL 2-31 Units ity of injection 00:00: under the [place] 00 skin every Medical morning Branch and evening. atorvastati 2021-05 Yes [id number] 80mg Take 2 Univers n 40 mg 2-31 tablets by ity of tablet 00:00: mouth [place] 00 every Medical evening. Branch insulin NPH 2021-05 Yes [id number] 10U inject 10 Univers and regular 2-31 Units ity of human 70-30 00:00: under the [place] 100 unit/mL 00 skin 2 Medica l (70-30) (two) Branch injection times daily before breakfast and dinner. insulin NPH 2021-05 Yes [id number] 20U inject 20 Univers 100 unit/mL 2-31 Units ity of injection 00:00: under the [place] 00 skin every Medical morning Branch and evening. atorvastati 2021-05 Yes [id number] 80mg Take 2 Univers n 40 mg 2-31 tablets by ity of tablet 00:00: mouth [place] 00 every Medical evening. Branch insulin NPH 2021-05 Yes [id number] 10U inject 10 Univers and regular 2-31 Units ity of human 70-30 00:00: under the [place] 100 unit/mL 00 skin 2 Medica l (70-30) (two) Branch injection times daily before breakfast and dinner. insulin NPH 2021-05 Yes [id number] 20U inject 20 Univers 100 unit/mL 2-31 Units ity of injection 00:00: under the [place] 00 skin every Medical morning Branch and evening. atorvastati 2021-05 Yes [id number] 80mg Take 2 Univers n 40 mg 2-31 tablets by ity of tablet 00:00: mouth [place] 00 every Medical evening. Branch insulin NPH 2021-05 Yes [id number] 10U inject 10 Univers and regular 2-31 Units ity of human 70-30 00:00: under the [place] 100 unit/mL 00 skin 2 Medica l (70-30) (two) Branch injection times daily before breakfast and dinner. insulin NPH 2021-05 Yes [id number] 20U inject 20 Univers 100 unit/mL 2-31 Units ity of injection 00:00: under the [place] 00 skin every Medical morning Branch and evening. atorvastati 2021-05 Yes [id number] 80mg Take 2 Univers n 40 mg 2-31 tablets by ity of tablet 00:00: mouth [place] 00 every Medical evening. Branch insulin NPH 2021-05 Yes [id number] 10U inject 10 Univers and regular 2-31 Units ity of human 70-30 00:00: under the [place] 100 unit/mL 00 skin 2 Medica l (70-30) (two) Branch injection times daily before breakfast and dinner. insulin NPH 2021-05 Yes [id number] 20U inject 20 Univers 100 unit/mL 2-31 Units ity of injection 00:00: under the [place] 00 skin every Medical morning Branch and evening. atorvastati 2021-05 Yes [id number] 80mg Take 2 Univers n 40 mg 2- tablets by ity of tablet 00:00: mouth [place] 00 every Medical evening. Branch insulin NPH 2021-05 Yes [id number] 10U inject 10 Univers and regular 2-31 Units ity of human 70-30 00:00: under the [place] 100 unit/mL 00 skin 2 Medica l (70-30) (two) Branch injection times daily before breakfast and dinner. insulin NPH 2021-05 Yes [id number] 20U inject 20 Univers 100 unit/mL 2-31 Units ity of injection 00:00: under the [place] 00 skin every Medical morning Branch and evening. metoprolol 2021-05- No [id number] 25mg Take 1 Univers tartrate 25 05-08 tablet by it y of mg tablet 00:00: 05:59 mouth in [place] 00 :00 the Medical morning Branch and 1 tablet in the evening. nitroglycer 2021-05- No [id number] .4mg Place 1 Univers in 0.4 mg 05-08 tablet ity of sublingual 00:00: 05:59 under the [place] tablet 00 :00 tongue Medical every 5 Branch (five) minutes as needed for Chest pain. metoprolol 2021-05- No [id number] 25mg Take 1 Univers tartrate 25 05-08 tablet by it y of mg tablet 00:00: 05:59 mouth in [place] 00 :00 the Medical morning Branch and 1 tablet in the evening. nitroglycer 2021-05- No [id number] .4mg Place 1 Univers in 0.4 mg 05-08 tablet ity of sublingual 00:00: 05:59 under the [place] tablet 00 :00 tongue Medical every 5 Branch (five) minutes as needed for Chest pain. metoprolol 2021-05- No [id number] 25mg Take 1 Univers tartrate 25 05-08 tablet by it y of mg tablet 00:00: 05:59 mouth in [place] 00 :00 the Medical morning Branch and 1 tablet in the evening. nitroglycer 2021-05- No [id number] .4mg Place 1 Univers in 0.4 mg 05-08 tablet ity of sublingual 00:00: 05:59 under the [place] tablet 00 :00 tongue Medical every 5 Branch (five) minutes as needed for Chest pain. metoprolol 2021-05- No [id number] 25mg Take 1 Univers tartrate 25 05-08 tablet by it y of mg tablet 00:00: 05:59 mouth in [place] 00 :00 the Medical morning Branch and 1 tablet in the evening. nitroglycer 2021-05- No [id number] .4mg Place 1 [facility] in 0.4 mg 05-08 tablet ity of sublingual 00:00: 05:59 under the [place] tablet 00 :00 tongue Medical every 5 Branch (five) minutes as needed for Chest pain. metoprolol 2021-05- No [id number] 25mg Take 1 [facility] tartrate 25 05-08 tablet by it y of mg tablet 00:00: 05:59 mouth in [place] 00 :00 the Medical morning Branch and 1 tablet in the evening. nitroglycer 2021-05- No [id number] .4mg Place 1 [facility] in 0.4 mg 05-08 tablet ity of sublingual 00:00: 05:59 under the [place] tablet 00 :00 tongue Medical every 5 Branch (five) minutes as needed for Chest pain. metoprolol 2021-05- No [id number] 25mg Take 1 [facility] tartrate 25 05-08 tablet by it y of mg tablet 00:00: 05:59 mouth in [place] 00 :00 the Medical morning Branch and 1 tablet in the evening. nitroglycer 2021-05- No [id number] .4mg Place 1 [facility] in 0.4 mg 05-08 tablet ity of sublingual 00:00: 05:59 under the [place] tablet 00 :00 tongue Medical every 5 Branch (five) minutes as needed for Chest pain. metoprolol 2021-05- No [id number] 25mg Take 1 [facility] tartrate 25 05-08 tablet by it y of mg tablet 00:00: 05:59 mouth in [place] 00 :00 the Medical morning Branch and 1 tablet in the evening. nitroglycer 2021-05- No [id number] .4mg Place 1 [facility] in 0.4 mg 05-08 tablet ity of sublingual 00:00: 05:59 under the [place] tablet 00 :00 tongue Medical every 5 Branch (five) minutes as needed for Chest pain. metoprolol 2021-05- No [id number] 25mg Take 1 [facility] tartrate 25 05-08 tablet by it y of mg tablet 00:00: 05:59 mouth in [place] 00 :00 the Medical morning Branch and 1 tablet in the evening. nitroglycer 2021-05- No [id number] .4mg Place 1 [facility] in 0.4 mg 05-08 tablet ity of sublingual 00:00: 05:59 under the [place] tablet 00 :00 tongue Medical every 5 Branch (five) minutes as needed for Chest pain. metoprolol 2021-05- No [id number] 25mg Take 1 [facility] tartrate 25 05-08 tablet by it y of mg tablet 00:00: 05:59 mouth in [place] 00 :00 the Medical morning Branch and 1 tablet in the evening. nitroglycer 2021-05- No [id number] .4mg Place 1 [facility] in 0.4 mg 05-08 tablet ity of sublingual 00:00: 05:59 under the [place] tablet 00 :00 tongue Medical every 5 Branch (five) minutes as needed for Chest pain. metoprolol 2021-05- No [id number] 25mg Take 1 [facility] tartrate 25 05-08 tablet by it y of mg tablet 00:00: 05:59 mouth in [place] 00 :00 the Medical morning Branch and 1 tablet in the evening. nitroglycer 2021-05- No [id number] .4mg Place 1 [facility] in 0.4 mg 05-08 tablet ity of sublingual 00:00: 05:59 under the [place] tablet 00 :00 tongue Medical every 5 Branch (five) minutes as needed for Chest pain. metoprolol 2021-05- No [id number] 25mg Take 1 [facility] tartrate 25 05-08 tablet by it y of mg tablet 00:00: 05:59 mouth in [place] 00 :00 the Medical morning Branch and 1 tablet in the evening. nitroglycer 2021-[id number] 1 [facility] in 0.4 mg 05-08 tablet ity of sublingual 00:00: 05:59 under the [place] tablet 00 :00 tongue Medical every 5 Branch (five) minutes as needed for Chest pain. metoprolol 2021-05- No [id number] 25mg Take 1 [facility] tartrate 25 05-08 tablet by it y of mg tablet 00:00: 05:59 mouth in [place] 00 :00 the Medical morning Branch and 1 tablet in the evening. nitroglycer 2021-05- No [id number] .4mg Place 1 [facility] in 0.4 mg 05-08 tablet ity of sublingual 00:00: 05:59 under the [place] tablet 00 :00 tongue Medical every 5 Branch (five) minutes as needed for Chest pain. metoprolol 2021-05- No [id number] 25mg Take 1 [facility] tartrate 25 05-08 tablet by it y of mg tablet 00:00: 05:59 mouth in [place] 00 :00 the Medical morning Branch and 1 tablet in the evening. nitroglycer 2021-05- No [id number] .4mg Place 1 [facility] in 0.4 mg 05-08 tablet ity of sublingual 00:00: 05:59 under the [place] tablet 00 :00 [facility] every 5 Branch (five) minutes as needed for Chest pain. metoprolol 2021-05- No [id number] 25mg Take 1 [facility] tartrate 25 05-08 tablet by it y of mg tablet 00:00: 05:59 mouth in [place] 00 :00 the Medical morning Branch and 1 tablet in the evening. nitroglycer 2021-05- No [id number] .4mg Place 1 [facility] in 0.4 mg 05-08 tablet ity of sublingual 00:00: 05:59 under the [place] tablet 00 :00 tongue Medical every 5 Branch (five) minutes as needed for Chest pain. metoprolol 2021-05- No [id number] 25mg Take 1 [facility] tartrate 25 05-08 tablet by it y of mg tablet 00:00: 05:59 mouth in [place] 00 :00 the Medical morning Branch and 1 tablet in the evening. nitroglycer 2021-05- No [id number] .4mg Place 1 [facility] in 0.4 mg 05-08 tablet ity of sublingual 00:00: 05:59 under the [place] tablet 00 :00 tongue Medical every 5 Branch (five) minutes as needed for Chest pain. metoprolol 2021-05- No [id number] 25mg Take 1 [facility] tartrate 25 05-24 tablet by it y of mg tablet 00:00: 00:00 mouth in [place] 00 :00 the Medical morning Branch and 1 tablet in the evening. nitroglycer 2021-05- No [id number] .4mg Place 1 [facility] in 0.4 mg 05-24 tablet ity of sublingual 00:00: 00:00 under the [place] tablet 00 :00 tongue Medical every 5 Branch (five) minutes as needed for Chest pain. atorvastati 2021-05- No [id number] 80mg Take 2 Univers n 40 mg 05-24 tablets by ity o f tablet 00:00: 00:00 mouth [place] 00 :00 every Medical evening. Branch insulin NPH 2021-05- No [id number] 10U inject 10 [facility] and regular 05-24 Units ity of human 70-30 00:00: 00:00 under the [place] 100 unit/mL 00 :00 skin 2 Medica l (70-30) (two) Branch injection times daily before breakfast and dinner. insulin NPH 2021-05- No [id number] 20U inject 20 [facility] 100 unit/mL 05-24 Units ity of injection 00:00: 00:00 under the [place] 00 :00 skin every Medical morning Branch and evening. insulin 2021-05- No 10U 10 Units, Univ ers lispro 05-07 Subcutaneo ity of (human) 23:00: 13:05 us, TID [place] (HumaLOG 00 :11 MEALS, Medical U-100) First dose Branch injection on Fri 10 Units 05/06/22 at 1700, Until Discontinu [...] 17:30 [place] 36 :36 on Mon05/06/22 Branch at 1130, Until Discontinu ed, STAT, [...] 18:04 Starting [place] injection 14 :47 on Mon05/06/22 Branch at 1051, Until Mon05/06/22 at 1204, [...] of water 4 16:15: 00:02 at 25 [place] gram/50 mL 00 :00 mL/hr Medical (8 %) IV Administer Branc h Piggyback 4 over 120 g Minutes, ONCE, 1 dose, On Mon05/06/22 at 1015, Routine insulin 2021-05- No 5U 5 Units, Unive rs regular 05-06 Subcutaneo ity o f human 13:00: 12:35 us, ONCE, [place] (HUMULIN R) 00 :00 1 dose, On Me dical injection 5 Fri Branch Units 05/06/22 at 0700, Routine
Indicatio n for insulin: Hyperglyce yvan insulin 2021-05- No 10U 10 Units, Univ ers regular 05-06 Subcutaneo ity o f human 06:30: 05:57 us, ONCE, [place] (HUMULIN R) 00 :00 1 dose, On Me dical injection Fri Branch 10 Units 05/06/22 at 0030, Routine
Indicatio n for insulin: Hyperglyce yvan insulin 2021-05- No 20U 20 Units, Univ ers glargine 05-06 Subcutaneo ity of (LANTUS 06:00: 16:25 us, [facility], [place] U-100) 00 :46 First dose Medical injection on [place] [facility] Branch 20 Units 05/06/22 at 0000, Until Discontinu ed, Routine glucagon 2021-05 Yes 1mg 1 mg, Univers (GLUCAGEN 2-30 Intramuscu ity of DIAGNOSTIC 05:43: lar, PRN, [place] KIT) 43 Starting Medical injection 1 on [facility] Branch mg 05/05/22 at 2343, Until Discontinu ed, MARCOS, Blood Glucose < or = 70 mg/dL and patient is unable to swallow or has mental changes. dextrose 50 2021-05 Yes 25mL 25 mL, Univ ers % in water 2 Slow IV ity of (D50W) 05:43: Push, PRN, [place] injection 43 Starting Medica l 25 mL on [facility] Branch 05/05/22 at 2343, Until Discontinu ed, MARCOS, Blood Glucose < or = 70 mg/dL and patient is unable to swallow or has mental status changes. glucagon 2021-05- No 1mg 1 mg, Univers (GLUCAGEN 05-07 Intramuscu ity of DIAGNOSTIC 05:43: 23:28 lar, PRN, [place] KIT) 43 :33 Starting Medical injection 1 on [facility] Branch 05/05/22 at 2343, Until 05/07/22 at 1728, MARCOS, Blood Glucose < or = 70 mg/dL and patient is unable to swallow or has mental changes. dextrose 50 2021-05- No 25mL 25 mL, Uni vers % in water 05-07 Slow IV ity o f (D50W) 05:43: 23:28 Push, PRN, [place] injection 43 :33 Starting Medica l 25 mL on [facility] Branch 05/05/22 at 2343, Until 05/07/22 at 1728, MARCOS, Blood Glucose < or = 70 mg/dL and patient is unable to swallow or has mental status changes. atorvastati 2021-05- No 40mg 40 mg, Uni vers n (LIPITOR) 05-07 Oral, QPM, i ty of tablet 40 23:00: 17:05 First dose [place] mg 00 :43 on [facility] Medical 05/05/22 Branch at 1700, Until Discontinu ed, Routine metoprolol 2021-05 Yes 25mg 25 mg, Unive rs tartrate 2-29 Oral, BID, ity o f (LOPRESSOR) 17:15: First dose [place] tablet 25 00 on [facility] mg 05/05/22 Branch at 1115, Until Discontinu ed, Routine metoprolol 2021-05 No 25mg 25 mg, Univ ers tartrate -05 05- Oral, BID, ity of (LOPRESSOR) 17:15: 23:28 First dose [place] tablet 25 00 :33 on [facility] mg 05/05/22 Branch at 1115, Until Discontinu ed, Routine pantoprazol 2021-05 Yes 40mg 40 mg, Univ ers e - Oral, ity of (PROTONIX) 15:00: DAILY, [place] EC tablet 00 First dose Medi rogers 40 mg on [facility] 05/05/22 at 0900, Until Discontinu ed, Routine gabapentin 2021-05 Yes 100mg 100 mg, Uni vers (NEURONTIN) Oral, ity of capsule 100 15:00: DAILY, [place] mg 00 First dose Medical on [facility] 05/05/22 at 0900, Until Discontinu ed, Routine aspirin 2021-05 Yes 81mg 81 mg, Univers chewable Oral, ity of tablet 81 15:00: DAILY, [place] mg 00 First dose Medical on [facility] 05/05/22 at 0900, Until Discontinu ed, Routine pantoprazol 2021-05 No 40mg 40 mg, Uni vers e 05-07 Oral, ity of (PROTONIX) 15:00: 23:28 DAILY, [place] EC tablet 00 :33 First dose Medi rogers 40 mg on [facility] 05/05/22 at 0900, Until Discontinu ed, Routine gabapentin 2021-05 No 100mg 100 mg, Un [place] (NEURONTIN) 05-07 Oral, ity of capsule 100 15:00: 23:28 DAILY, [place] mg 00 :33 First dose Medical on [facility] 05/05/22 at 0900, Until Discontinu ed, Routine aspirin 2021-05 No 81mg 81 mg, [facility] chewable 05-07 Oral, ity of tablet 81 15:00: 23:28 DAILY, [place] mg 00 :33 First dose Medical on [facility] Branch 05/05/22 at 0900, Until Discontinu ed, Routine ticagrelor 2021-05 Yes 90mg 90 mg, Unive rs (BRILINTA) Oral, BID, ity of tablet 90 14:00: First dose [place] mg 00 on [facility] 05/05/22 Branch at 0800, Until Discontinu ed, Routine ticagrelor 2021-05- No 90mg 90 mg, Univ ers (BRILINTA) 05-07 Oral, BID, it y of tablet 90 14:00: 23:28 First dose [place] mg 00 :33 on [facility] 05/05/22 Branch at 0800, Until Discontinu ed, Routine Sliding 2021-05 Subcutaneo Uni vers Scale 05-06 us, TID ity of Insulin - 14:00: 05:43 MEALS+HS, [place] Lispro 00 :17 First dose Medical (HumaLOG) + on [facility] Branch Fsbg 05/05/22 Testing at 0800, Until Discontinu [...] ity of bolus 04:04: PRN - SEE [place] infusion 20 INSTRUCTIO Medic al 250 mL [...] is < 80 mg/dL, repeat.
dextrose 2021-05 250mL 250 mL, IV U nivers 10% (D10W) 05-07 Infusion, ity of bolus 04:04: 23:28 PRN - SEE [place] infusion 20 :33 INSTRUCTIO Medic al 250 [...] Starting Medical injection 1 on Mon Branch 05/04/22 at 2204, Until Discontinu ed, MARCOS, Blood Glucose < or = 70 mg/dL and patient is unable to swallow or has mental changes. glucagon 2021-05 No 1mg 1 mg, Univers (GLUCAGEN 05-07 Intramuscu ity of DIAGNOSTIC 04:04: 23:28 lar, PRN, [place] KIT) 15 :33 Starting Medical injection 1 on Mon Branch mg 05/04/22 at 2204, Until 05/07/22 at 1728, MARCOS, Blood Glucose < or = 70 mg/dL and patient is unable to swallow or has mental changes. HEPARIN 2021-05- No 60U/kg 3,750 Univer s SODIUM 05-05 Units (60 ity of (PORCINE) 04:00: 11:21 Units/kg [place] 1,000 00 :00 ?62.5 kg), Medical UNIT/ML IV Push, Branch BOLUS ACS ONCE, 1 ORDER SET dose, On Mon05/04/22 at 2200, MARCOS heparin 2021-05- No 0U/h 0-2,150 Univer s 25,000 30 Units/hr ity of Units/250 03:47: 22:43 (0-21.5 [...] therapy. Range, Dosing and Testing: &nbs p;FOR [facility], AND [facility] ONLY &nbs p; - aPTT < [...] 650 40 Starting Medic al mg on Mon Branch 05/04/22 at 2118, Until Discontinu ed, Routine, Pain (scale 1-3) acetaminoph 2021-05- No 650mg 650 mg, U nivers en 05-07 Oral, ity of (TYLENOL) 03:18: 23:28 Q6HPRN, [place] tablet 650 40 :33 Starting Medic al mg on Mon Branch 05/04/22 at 2118, Until 05/07/22 at 1728, Routine, Pain (scale 1-3) insulin NPH 2021-05 Yes 20U 20 Units, U nivers (HUMULIN N) 2-16 Subcutaneo it y of injection 15:00: us, DAILY, [place] 20 Units 00 First dose Medic al (after Branch last modificati on) on Mon04/22/22 at 0900, Until Discontinu ed, Routine insulin NPH 2021-05 Yes [id number] 20U inject 20 [facility] 100 unit/mL 2-16 Units ity of injection 00:00: under the [place] 00 skin in Medical the Branch morning and 16 Units under the skin every evening. insulin NPH 2021-05 Yes [id number] 20U inject 20 [facility] 100 unit/mL 2-16 Units ity of injection 00:00: under the [place] 00 skin in Medical the Branch morning and 16 Units under the skin every evening. insulin NPH 2021-05 Yes [id number] 20U inject 20 [facility] 100 unit/mL 2-16 Units ity of injection 00:00: under the [place] 00 skin in Medical the Branch morning and 16 Units under the skin every evening. insulin NPH 2021-05 Yes [id number] 20U inject 20 [facility] 100 unit/mL 2-16 Units ity of injection 00:00: under the [place] 00 skin in Medical the Branch morning and 16 Units under the skin every evening. insulin NPH 2021-05 Yes [id number] 20U inject 20 [facility] 100 unit/mL 2-16 Units ity of injection 00:00: under the [place] 00 skin in Medical the Branch morning and 16 Units under the skin every evening. insulin NPH 2021-05 Yes [id number] 20U inject 20 [facility] 100 unit/mL 2-16 Units ity of injection 00:00: under the [place] 00 skin in Medical the Branch morning and 16 Units under the skin every evening. insulin NPH 2021-05 Yes [id number] 20U inject 20 [facility] 100 unit/mL 2-16 Units ity of injection 00:00: under the [place] 00 skin in Medical the Branch morning and 16 Units under the skin every evening. insulin NPH 2021-05 Yes [id number] 20U inject 20 [facility] 100 unit/mL 2-16 Units ity of injection 00:00: under the [place] 00 skin in Medical the Branch morning and 16 Units under the skin every evening. insulin NPH 2021-05- No [id number] 20U inject 20 [facility] 100 unit/mL 2-16 12-31 Units ity of injection 00:00: 00:00 under the [place] 00 :00 skin in Medical the [place] morning and 16 Units under the skin every evening. insulin NPH 2021-05- No [id number] 20U inject 20 [facility] 100 unit/mL 2-16 12-31 Units ity of injection 00:00: 00:00 under the [place] 00 :00 skin in Medical the [place] morning and 16 Units under the skin every evening. insulin NPH 2021-05 Yes 16U 16 Units, U nivers (HUMULIN N) 2-15 Subcutaneo it y of injection 23:00: us, QPM, [place] 16 Units 00 First dose Medic al on [facility] 04/21/22 at 1700, Until Discontinu ed, Routine insulin 2021-05 Yes 10U 10 Units, Unive rs lispro 2-15 Subcutaneo ity of (human) 23:00: us, TID [place] (HumaLOG 00 MEALS, Medical U-100) First dose Branch injection (after 10 Units last modificati on) on [facility] 04/21/22 at 1700, Until Discontinu ed insulin NPH 2021-05 Yes 16U 16 Units, U nivers (HUMULIN N) 2-15 Subcutaneo it y of injection 23:00: us, QPM, [place] 16 Units 00 First dose Medic al (after Branch last modificati on) on [facility] 04/21/22 at 1700, Until Discontinu ed, Routine Sliding 2021-05 Yes Subcutaneo Univ ers Scale 2-15 us, Q4H, ity of Insulin - 18:00: First dose [place] Lispro 00 (after Medical (HumaLOG) + last Branch Fsbg modificati Testing on) on [facility] 04/21/22 at 1200, Until Discontinu ed, Routine insulin NPH 2021-05 Yes 20U 20 Units, U nivers (HUMULIN N) 2-15 Subcutaneo it y of injection 15:00: us, DAILY, [place] 20 Units 00 First dose Medic al on [facility] 04/21/22 at 0900, Until Discontinu ed, Routine [...] daily. Medical 120 mg Branch tablet insulin 2021-05- 10U inject 10 Univ ers aspart 2-15 12-15 Units ity of RAPID 100 14:10: 00:00 under the [place] unit/mL 57 :00 skin 3 Medical injection (three) Branch times daily with meals. insulin 2021-05 Yes [id number] 10U inject 10 U nivers lispro, 2-15 Units ity of human, 100 00:00: under the [place] unit/mL 00 skin 2 Medical injection (two) Branch times daily before breakfast and dinner. insulin NPH 2021-05 Yes [id number] 20U inject 20 [facility] 100 unit/mL 2-15 Units ity of injection 00:00: under the [place] 00 skin every Medical evening. Branch insulin 2021-05 Yes [id number] 10U inject 10 U nivers lispro, 2-15 Units ity of human, 100 00:00: under the [place] unit/mL 00 skin 2 Medical injection (two) Branch times daily before breakfast and dinner. insulin NPH 2021-05 Yes [id number] 20U inject 20 [facility] 100 unit/mL 2-15 Units ity of injection 00:00: under the [place] 00 skin every Medical evening. Branch insulin 2021-05 Yes [id number] 10U inject 10 U nivers lispro, 2-15 Units ity of human, 100 00:00: under the [place] unit/mL 00 skin 2 Medical injection (two) Branch times daily before breakfast and dinner. insulin NPH 2021-05 Yes [id number] 20U inject 20 [facility] 100 unit/mL 2-15 Units ity of injection 00:00: under the [place] 00 skin every Medical evening. Branch insulin 2021-05 Yes [id number] 10U inject 10 U nivers lispro, 2-15 Units ity of human, 100 00:00: under the [place] unit/mL 00 skin 2 Medical injection (two) Branch times daily before breakfast and dinner. insulin NPH 2021-05 Yes [id number] 20U inject 20 [facility] 100 unit/mL 2-15 Units ity of injection 00:00: under the [place] 00 skin every Medical evening. Branch insulin 2021-05 Yes [id number] 10U inject 10 U nivers lispro, 2-15 Units ity of human, 100 00:00: under the [place] unit/mL 00 skin 2 Medical injection (two) Branch times daily before breakfast and dinner. insulin NPH 2021-05 Yes [id number] 20U inject 20 [facility] 100 unit/mL 2-15 Units ity of injection 00:00: under the [place] 00 skin every Medical evening. Branch insulin 2021-05 Yes [id number] 10U inject 10 U nivers lispro, 2-15 Units ity of human, 100 00:00: under the [place] unit/mL 00 skin 2 Medical injection (two) Branch times daily before breakfast and dinner. insulin NPH 2021-05 Yes [id number] 20U inject 20 [facility] 100 unit/mL 2-15 Units ity of injection 00:00: under the [place] 00 skin every Medical evening. [place] insulin 2021-05 Yes [id number] 10U inject 10 U nivers lispro, 2-15 Units ity of human, 100 00:00: under the [place] unit/mL 00 skin 2 Medical injection (two) Branch times daily before breakfast and dinner. insulin NPH 2021-05 Yes [id number] 20U inject 20 [facility] 100 unit/mL 2-15 Units ity of injection 00:00: under the [place] 00 skin every Medical evening. [place] insulin 2021-05 Yes [id number] 10U inject 10 U nivers lispro, 2-15 Units ity of human, 100 00:00: under the [place] unit/mL 00 skin 2 Medical injection (two) Branch times daily before breakfast and dinner. insulin NPH 2021-05 Yes [id number] 20U inject 20 [facility] 100 unit/mL 2-15 Units ity of injection 00:00: under the [place] 00 skin every Medical evening. [place] aspirin 2021-05- No [id number] 81mg Take 1 [facility] mg chewable 2-15 12-16 tablet by it y of tablet 00:00: 05:59 mouth in [place] 00 :00 the Medical morning. [place] aspirin 2021-05- No [id number] 81mg Take 1 [facility] mg chewable 2-15 12-16 tablet by it y of tablet 00:00: 05:59 mouth in [place] 00 :00 the Medical morning. [place] aspirin 2021-05- No [id number] 81mg Take 1 [facility] mg chewable 2-15 12-16 tablet by it y of tablet 00:00: 05:59 mouth in [place] 00 :00 the Medical morning. [place] aspirin 2021-05- No [id number] 81mg Take 1 [facility] mg chewable 2-15 12-16 tablet by it y of tablet 00:00: 05:59 mouth in [place] 00 :00 the Medical morning. Branch aspirin 81 2021-05- No [id number] 81mg Take 1 [facility] mg chewable 2-15 12-16 tablet by it y of tablet 00:00: 05:59 mouth in [place] 00 :00 the Medical morning. Branch aspirin 81 2021-05- No [id number] 81mg Take 1 [facility] mg chewable 2-15 12-16 tablet by it y of tablet 00:00: 05:59 mouth in [place] 00 :00 the Medical morning. Branch aspirin 81 2021-05- No [id number] 81mg Take 1 [facility] mg chewable 2-15 12-16 tablet by it y of tablet 00:00: 05:59 mouth in [place] 00 :00 the Medical morning. Branch aspirin 81 2021-05- No [id number] 81mg Take 1 [facility] mg chewable 2-15 12-16 tablet by it y of tablet 00:00: 05:59 mouth in [place] 00 :00 the Medical morning. Branch aspirin 81 2021-05- No [id number] 81mg Take 1 [facility] mg chewable 2-15 12-16 tablet by it y of tablet 00:00: 05:59 mouth in [place] 00 :00 the Medical morning. Branch aspirin 81 2021-05- No [id number] 81mg Take 1 [facility] mg chewable 2-15 12-16 tablet by it y of tablet 00:00: 05:59 mouth in [place] 00 :00 the Medical morning. Branch aspirin 81 2021-05- No [id number] 81mg Take 1 [facility] mg chewable 2-15 12-16 tablet by it y of tablet 00:00: 05:59 mouth in [place] 00 :00 the Medical morning. Branch aspirin 81 2021-05- No [id number] 81mg Take 1 [facility] mg chewable 2-15 12-16 tablet by it y of tablet 00:00: 05:59 mouth in [place] 00 :00 the Medical morning. Branch aspirin 81 2021-05- No [id number] 81mg Take 1 [facility] mg chewable 2-15 12-16 tablet by it y of tablet 00:00: 05:59 mouth in [place] 00 :00 the Medical morning. Branch aspirin 81 2022-1 2023- No [id number] 81mg Take 1 [facility] mg chewable 2-15 12-16 tablet by it y of tablet 00:00: 05:59 mouth in [place] 00 :00 the Medical morning. Branch aspirin 81 2021-05- No [id number] 81mg Take 1 [facility] mg chewable 2-15 12-16 tablet by it y of tablet 00:00: 05:59 mouth in [place] 00 :00 the Medical morning. Branch aspirin 81 2021-05- No [id number] 81mg Take 1 [facility] mg chewable 2-15 12-16 tablet by it y of tablet 00:00: 05:59 mouth in [place] 00 :00 the Medical morning. Branch aspirin 81 2021-05- No [id number] 81mg Take 1 [facility] mg chewable 2-15 12-16 tablet by it y of tablet 00:00: 05:59 mouth in [place] 00 :00 the Medical morning. Branch aspirin 81 2021-05- No [id number] 81mg Take 1 [facility] mg chewable 2-15 12-16 tablet by it y of tablet 00:00: 05:59 mouth in [place] 00 :00 the Medical morning. Branch aspirin 81 2021-05- No [id number] 81mg Take 1 [facility] mg chewable 2-15 12-16 tablet by it y of tablet 00:00: 05:59 mouth in [place] 00 :00 the Medical morning. Branch aspirin 81 2021-05- No [id number] 81mg Take 1 [facility] mg chewable 2-15 12-16 tablet by it y of tablet 00:00: 05:59 mouth in [place] 00 :00 the Medical morning. Branch aspirin 81 2021-05- No [id number] 81mg Take 1 [facility] mg chewable 2-15 12-16 tablet by it y of tablet 00:00: 05:59 mouth in [place] 00 :00 the Medical morning. Branch aspirin 81 2021-05- No [id number] 81mg Take 1 [facility] mg chewable 2-15 12-16 tablet by it y of tablet 00:00: 05:59 mouth in [place] 00 :00 the Medical morning. Branch aspirin 81 2021-05- No [id number] 81mg Take 1 [facility] mg chewable 2-15 12-16 tablet by it y of tablet 00:00: 05:59 mouth in [place] 00 :00 the Medical morning. Branch aspirin 81 2021-05- No [id number] 81mg Take 1 [facility] mg chewable 2-15 12-16 tablet by it y of tablet 00:00: 05:59 mouth in [place] 00 :00 the Medical morning. Branch aspirin 81 2021-05- No [id number] 81mg Take 1 [facility] mg chewable 2-15 01-17 tablet by it y of tablet 00:00: 00:00 mouth in [place] 00 :00 the Medical morning. Branch insulin 2021-05- No [id number] 10U inject 10 [facility] lispro, 2-15 12-31 Units ity of human, 100 00:00: 00:00 under the [place] unit/mL 00 :00 skin 2 Medical injection (two) Branch times daily before breakfast and dinner. insulin NPH 2021-05- No [id number] 20U inject 20 [facility] 100 unit/mL 2-15 12-31 Units ity of injection 00:00: 00:00 under the [place] 00 :00 skin every Medical evening. Branch insulin 2021-05- No [id number] 10U inject 10 [facility] lispro, 2-15 12-31 Units ity of human, 100 00:00: 00:00 under the [place] unit/mL 00 :00 skin 2 Medical injection (two) Branch times daily before breakfast and dinner. insulin NPH 2021-05- No [id number] 20U inject 20 [facility] 100 unit/mL 2-15 12-31 Units ity of injection 00:00: 00:00 under the [place] 00 :00 skin every Medical evening. Branch insulin NPH 2021-05- No [id number] 16U inject 16 Univers 100 unit/mL 2-15 [...] ity of tablet 13:38: 00:00 mouth at [place] 30 :00 bedtime. Medical Branch gemfibroziL 2021-05- No 600mg Take 600 Univers 600 mg 2-14 12-14 mg by ity of tablet 13:38: 00:00 mouth at [place] 30 :00 bedtime. Medical Branch insulin 2021-05 [...] by ity of capsule 13:38: mouth in [place] 27 the Medical morning. Branch Thyroid, 2021-05 Yes 120mg Take 120 Univ ers Pork, 2-14 mg by ity of (ARMOUR 13:38: mouth [place] THYROID) 27 daily. Medical 120 mg Branch tablet ticagrelor 2021-05 Yes 90mg 90 mg, Unive rs (BRILINTA) 2-14 Oral, BID, ity of tablet 90 02:00: First dose [place] mg 00 on [facility] 04/19/22 [place] at 1999, Until Discontinu ed, Routine, CV Recovery to Floor ticagrelor 2021-05 Yes 90mg 90 mg, Unive rs (BRILINTA) 2-14 Oral, BID, ity of tablet 90 02:00: First dose [place] mg 00 on [facility] 04/19/22 [place] at 1999, Until Discontinu ed, Routine, CV Recovery to Floor ticagrelor 2021-05- No [id number] 90mg Take 1 Univers 90 mg 2-14 12-15 tablet by ity of tablet 00:00: 05:59 mouth in [place] 00 :00 the Medical morning Branch and 1 tablet in the evening. ticagrelor 2021-05- No [id number] 90mg Take 1 Univers 90 mg 2-14 12-15 tablet by ity of tablet 00:00: 05:59 mouth in [place] 00 :00 the Medical morning Branch and 1 tablet in the evening. ticagrelor 2021-05- No [id number] 90mg Take 1 Univers 90 mg 2-14 12-15 tablet by ity of tablet 00:00: 05:59 mouth in [place] 00 :00 the Medical morning Branch and 1 tablet in the evening. ticagrelor 2021-05- No [id number] 90mg Take 1 Univers 90 mg 2-14 12-15 tablet by ity of tablet 00:00: 05:59 mouth in [place] 00 :00 the Medical morning Branch and 1 tablet in the evening. ticagrelor 2021-05- No [id number] 90mg Take 1 Univers 90 mg 2-14 12-15 tablet by ity of tablet 00:00: 05:59 mouth in [place] 00 :00 the Medical morning Branch and 1 tablet in the evening. ticagrelor 2021-05- No [id number] 90mg Take 1 Univers 90 mg 2-14 12-15 tablet by ity of tablet 00:00: 05:59 mouth in [place] 00 :00 the Medical morning Branch and 1 tablet in the evening. ticagrelor 2021-05- No [id number] 90mg Take 1 Univers 90 mg 2-14 12-15 tablet by ity of tablet 00:00: 05:59 mouth in [place] 00 :00 the Medical morning Branch and 1 tablet in the evening. ticagrelor 2021-05- No [id number] 90mg Take 1 Univers 90 mg 2-14 12-15 tablet by ity of tablet 00:00: 05:59 mouth in [place] 00 :00 the Medical morning Branch and 1 tablet in the evening. ticagrelor 2021-05- No [id number] 90mg Take 1 Univers 90 mg 2-14 12-15 tablet by ity of tablet 00:00: 05:59 mouth in [place] 00 :00 the Medical morning Branch and 1 tablet in the evening. ticagrelor 2021-05- No [id number] 90mg Take 1 Univers 90 mg 2-14 12-15 tablet by ity of tablet 00:00: 05:59 mouth in [place] 00 :00 the Medical morning Branch and 1 tablet in the evening. ticagrelor 2021-05- No [id number] 90mg Take 1 Univers 90 mg 2-14 12-15 tablet by ity of tablet 00:00: 05:59 mouth in [place] 00 :00 the Medical morning Branch and 1 tablet in the evening. ticagrelor 2021-05- No [id number] 90mg Take 1 Univers 90 mg 2-14 12-15 tablet by ity of tablet 00:00: 05:59 mouth in [place] 00 :00 the Medical morning Branch and 1 tablet in the evening. ticagrelor 2021-05- No [id number] 90mg Take 1 Univers 90 mg 2-14 12-15 tablet by ity of tablet 00:00: 05:59 mouth in [place] 00 :00 the Medical morning Branch and 1 tablet in the evening. ticagrelor 2021-053- No [id number] 90mg Take 1 Univers 90 mg 2-14 12-15 tablet by ity of tablet 00:00: 05:59 mouth in [place] 00 :00 the Medical morning Branch and 1 tablet in the evening. ticagrelor 2021-053- No [id number] 90mg Take 1 Univers 90 mg 2-14 12-15 tablet by ity of tablet 00:00: 05:59 mouth in [place] 00 :00 the Medical morning Branch and 1 tablet in the evening. ticagrelor 2021-2022- No [id number] 90mg Take 1 Univers 90 mg 2-14 12-15 tablet by ity of tablet 00:00: 05:59 mouth in [place] 00 :00 the Medical morning Branch and 1 tablet in the evening. atorvastati 2021-2022- No [id number] 40mg Take 1 Univers n 40 mg 2-14 12-15 tablet by ity of tablet 00:00: 05:59 mouth [place] 00 :00 every Medical evening. Branch ticagrelor 2021-05- No [id number] 90mg Take 1 Univers 90 mg 2-14 12-15 tablet by ity of tablet 00:00: 05:59 mouth in [place] 00 :00 the Medical morning Branch and 1 tablet in the evening. atorvastati 2021-05- No [id number] 40mg Take 1 Univers n 40 mg 2-14 12-15 tablet by ity of tablet 00:00: 05:59 mouth [place] 00 :00 every Medical evening. Branch ticagrelor 2021-05- No [id number] 90mg Take 1 Univers 90 mg 2-14 12-15 tablet by ity of tablet 00:00: 05:59 mouth in [place] 00 :00 the Medical morning Branch and 1 tablet in the evening. atorvastati 2021-05- No [id number] 40mg Take 1 Univers n 40 mg 2-14 12-15 tablet by ity of tablet 00:00: 05:59 mouth [place] 00 :00 every Medical evening. Branch ticagrelor 2021-05- No [id number] 90mg Take 1 Univers 90 mg 2-14 12-15 tablet by ity of tablet 00:00: 05:59 mouth in [place] 00 :00 the Medical morning Branch and 1 tablet in the evening. atorvastati 2021-05- No [id number] 40mg Take 1 Univers n 40 mg 2-14 12-15 tablet by ity of tablet 00:00: 05:59 mouth [place] 00 :00 every Medical evening. Branch ticagrelor 2021-05- No [id number] 90mg Take 1 Univers 90 mg 2-14 12-15 tablet by ity of tablet 00:00: 05:59 mouth in [place] 00 :00 the Medical morning Branch and 1 tablet in the evening. atorvastati 2021-2022- No [id number] 40mg Take 1 Univers n 40 mg 2-14 12-15 tablet by ity of tablet 00:00: 05:59 mouth [place] 00 :00 every Medical evening. Branch ticagrelor 2021-05- No [id number] 90mg Take 1 Univers 90 mg 2-14 12-15 tablet by ity of tablet 00:00: 05:59 mouth in [place] 00 :00 the Medical morning Branch and 1 tablet in the evening. atorvastati 2021-2022- No [id number] 40mg Take 1 Univers n 40 mg 2-14 12-15 tablet by ity of tablet 00:00: 05:59 mouth [place] 00 :00 every Medical evening. [place] ticagrelor 2021-05- No [id number] 90mg Take 1 Univers 90 mg 2-14 12-15 tablet by ity of tablet 00:00: 05:59 mouth in [place] 00 :00 the Medical morning Branch and 1 tablet in the evening. atorvastati 2021-05- No [id number] 40mg Take 1 Univers n 40 mg 2-14 12-15 tablet by ity of tablet 00:00: 05:59 mouth [place] 00 :00 every Medical evening. [place] ticagrelor 2021-05- No [id number] 90mg Take 1 Univers 90 mg 2-14 12-15 tablet by ity of tablet 00:00: 05:59 mouth in [place] 00 :00 the Medical morning Branch and 1 tablet in the evening. atorvastati 2021-05- No [id number] 40mg Take 1 Univers n 40 mg 2-14 12-15 tablet by ity of tablet 00:00: 05:59 mouth [place] 00 :00 every Medical evening. Branch ticagrelor 2021-05- No [id number] 90mg Take 1 Univers 90 mg 2-14 12-15 tablet by ity of tablet 00:00: 05:59 mouth in [place] 00 :00 the Medical morning Branch and 1 tablet in the evening. atorvastati 2021-05- No [id number] 40mg Take 1 Univers n 40 mg 2-14 12-15 tablet by ity of tablet 00:00: 05:59 mouth [place] 00 :00 every Medical evening. Branch ticagrelor 2021-05- No [id number] 90mg Take 1 Univers 90 mg 06-21 tablet by ity of tablet 00:00: 00:00 mouth in [place] 00 :00 the Medical morning Branch and 1 tablet in the evening. atorvastati 2021-05- No [id number] 40mg Take 1 Univers n 40 mg 06-21 tablet by ity of tablet 00:00: 00:00 mouth [place] 00 :00 every Medical evening. Branch atorvastati 2021-05- No [id number] 40mg Take 1 Univers n 40 mg 06-21 tablet by ity of tablet 00:00: 00:00 mouth [place] 00 :00 every Medical evening. Branch iopamidol 2021-05- No ONCE INTRA U nivers (ISOVUE-370 06-20 PROCEDURE, i ty of ) injection 21:47: 21:54 [place] 01 :39 on [facility] 04/19/22 Branch at 1547, Until Mon04/19/22 at 1554, Routine, CV Intraproce dure ticagrelor 2021-05- No ONCE INTRA Univers (BRILINTA) 06-20 PROCEDURE, it y of tablet 21:44: 21:54 Starting [place] 26 :39 on [facility] 04/19/22 Branch at 1544, Until Mon04/19/22 at 1554, Routine, CV Intraproce dure adenosine 6 2021-05- No ONCE INTRA Univers mg/1000 mL 06-20 PROCEDURE, it y of INTRACORONA 21:39: 21:54 Starting [place] RY 45 :39 on [facility] injection 04/19/22 Branch for CATH at 1539, LAB Until Mon04/19/22 at 1554, Routine, CV Intraproce dure NaCl 0.9% 2021-05- No CONTINUOUS U nivers (NS) bolus 06-20 PRN, ity of infusion 20:40: 20:40 [place] 06 :06 on [facility] 04/19/22 Branch at 1440, Until Discontinu ed, STAT, CV Intraproce dure nitroglycer 2021-05- No ONCE INTRA Univers in (TRIDIL) 06-20 PROCEDURE, i ty of 2 mg in 10 20:35: 21:54 [place] mL D5W for 30 :39 on [facility] Cardiac 04/19/22 Branch Cath at 1435, Until [facility] 04/19/22 at 1554, Routine, CV Intraproce dure heparin 2021-05- No ONCE INTRA Uni vers 1,000 06-20 PROCEDURE, ity of unit/mL 20:35: 21:54 Starting [place] injection 20 :39 on [facility] 04/19/22 Branch at 1435, Until [facility] 04/19/22 at 1554, Routine, CV Intraproce dure lidocaine 2021-05- No ONCE INTRA U nivers 1% (PF) 06-20 PROCEDURE, ity o f (XYLOCAINE) 20:28: 21:54 Starting [place] injection 20 :39 on [facility] 04/19/22 Branch at 1428, Until [facility] 04/19/22 at 1554, Routine, CV Intraproce dure FENTanyl PF 2021-05- No ONCE INTRA Univers (SUBLIMAZE 06-20 PROCEDURE, it y of (PF)) 20:21: 21:54 Starting [place] injection 27 :39 on [facility] 04/19/22 Branch at 1421, Until [facility] 04/19/22 at 1554, Routine, CV Intraproce dure midazolam 2021-05- No ONCE INTRA U nivers (VERSED) 06-20 PROCEDURE, ity of injection 20:21: 21:54 Starting [place] 16 :39 on [facility] 04/19/22 Branch at 1421, Until [facility] 04/19/22 at 1554, Routine, CV Intraproce dure dextrose 2021-05 Yes 250mL 250 mL, IV Un lucila 10% (D10W) 06-20 Infusion, ity of bolus 14:32: PRN - SEE [place] infusion 00 INSTRUCTIO Medic al 250 mL [...] ity of bolus 14:32: PRN - SEE [place] infusion 00 INSTRUCTIO Medic al 250 mL [...] ity o f human 01:30: 00:55 , ONCE, [place] (HUMULIN R) 00 :00 1 dose, On Me dical injection [facility] Branch 10 Units 04/18/22 at 1930, Routine
Indicatio n for insulin: Hyperglyce yvan KCL 2021-05- No 40meq 40 mEq, Univers (KLOR-CON 06-19 Oral, ity of M20) tablet 15:00: 18:00 ONCE, 1 [place] 40 mEq 00 :00 dose, On Medical [facility] Branch 04/18/22 at 0900, Routine magnesium 2021-05- No 2g 2 g, IV Univ ers sulfate in 06-19 Piggyback, it y of water 2 14:00: 15:30 Administer [place] gram/50 mL 00 :00 over 60 Medica l (4 %) Minutes, Branch infusion 2 ONCE, 1 g dose, On [facility] 04/18/22 at 0800, Routine melatonin 2021-05 Yes 3mg 3 mg, Univers (MELATIN) 2-12 Oral, QHS, ity of tablet 3 mg 03:00: First dose on [facility] 04/17/22 Branch at 2100, Until Discontinu ed, Routine melatonin 2021-05 Yes 3mg 3 mg, Univers (MELATIN) 2-12 Oral, QHS, ity of tablet 3 mg 03:00: First dose on [facility] 04/17/22 Branch at 2100, Until Discontinu ed, Routine hydrOXYzine 2021-05 Yes 10mg 10 mg, Univ ers (ATARAX) 2-11 Oral, ity of tablet 10 22:20: Q6HPRN, [place] mg 42 Starting Medical on [facility] 04/17/22 at 1620, Until Discontinu ed, Routine, Anxiety hydrOXYzine 2021-05 Yes 10mg 10 mg, Univ ers (ATARAX) 2-11 Oral, ity of tablet 10 22:20: Q6HPRN, [place] mg 42 Starting Medical on [facility] 04/17/22 at 1620, Until Discontinu ed, Routine, Anxiety LORazepam 2021-05- No .5mg 0.5 mg, Univ ers (ATIVAN) 06-18 Intramuscu ity of injection 18:00: 18:30 lar, ONCE, [place] 0.5 mg 00 :00 1 dose, On [facility] 04/17/22 at 1200, Routine Sliding 2021-05- No Subcutaneo Uni vers Scale 06-18 us, Q4H, ity of Insulin - 14:00: 20:08 First dose [place] Lispro 00 :35 (after Medical (HumaLOG) + last Branch Fsbg modificati Testing on) on [place] 04/17/22 at 0800, Until Discontinu ed, Routine magnesium 2021-05- No 4g 4 g, IV Univ ers sulfate in 06-18 Piggyback, it y of water 4 13:45: 15:43 at 25 [place] gram/50 mL 00 :00 mL/hr Medical (8 %) IV Administer Branc h Piggyback 4 over 120 g Minutes, ONCE, 1 dose, On 04/17/22 at 0745, Routine Sliding 2021-05 No Subcutaneo Uni vers Scale 2-11 12-11 us, Q4H, ity of Insulin - 06:00: 10:50 First dose [place] Lispro 00 :56 (after Medical (HumaLOG) + last Branch Fsbg modificati Testing on) on 04/17/22 at 0000, Until Discontinu ed, Routine atorvastati 2021-05 Yes 40mg 40 mg, Univ ers n (LIPITOR) 2-10 Oral, QPM, it y of tablet 40 23:00: First dose [place] mg 00 on [facility] Medical 04/16/22 Branch at 1700, Until Discontinu ed, Routine atorvastati 2021-05 Yes 40mg 40 mg, Univ ers n (LIPITOR) 2-10 Oral, QPM, it y of tablet 40 23:00: First dose [place] mg 00 on [facility] 04/16/22 Branch at 1700, Until Discontinu ed, Routine Sliding 2021-05- No Subcutaneo Uni vers Scale 2-10 12-11 us, TID ity of Insulin - 18:00: 02:41 MEALS+HS, [place] Lispro 00 :44 First dose Medical (HumaLOG) + on [facility] Branch Fsbg 04/16/22 Testing at 1200, Until Discontinu ed, Routine gabapentin 2021-05 Yes 100mg 100 mg, Uni vers (NEURONTIN) 2-10 Oral, ity of capsule 100 15:00: DAILY, [place] mg 00 First dose Medical on [facility] Branch 04/16/22 at 0900, Until Discontinu ed, Routine gabapentin 2021-05 Yes 100mg 100 mg, Uni vers (NEURONTIN) 2-10 Oral, ity of capsule 100 15:00: DAILY, [place] mg 00 First dose Medical on [facility] Branch 04/16/22 at 0900, Until Discontinu ed, [...] Subcutaneo ity of (human) 14:00: us, TID [place] (HumaLOG 00 MEALS, Medical U-100) First dose Branch injection on Sat 10 Units 04/16/22 at 0800, Until Discontinu ed insulin 2021-05 No 10U 10 Units, Univ ers lispro 2-10 12-15 Subcutaneo ity of (human) 14:00: 15:25 us, TID [place] (HumaLOG 00 :09 MEALS, Medical U-100) First [...] 2-10 Oral, ity of (TYLENOL) 08:23: Q6HPRN, [place] tablet 650 56 Starting Medic al mg on Sat Branch 04/16/22 at 0223, Until Discontinu ed, Routine, Pain (scale 1-3) acetaminoph 2021-05 Yes 650mg 650 mg, Un lucila en 2-10 Oral, ity of (TYLENOL) 08:23: Q6HPRN, [place] tablet 650 56 Starting Medic al mg on Sat Branch 04/16/22 at 0223, Until Discontinu ed, Routine, Pain (scale 1-3) iopamidol 2021-05- No [id number] 80mL 80 mL, U nivers (ISOVUE 2-10 [...] therapy. Range, Dosing and Testing: &nbs p;FOR [facility], AND [facility] ONLY &nbs p; - aPTT < [...] INITIAL BOLUS OR INITIAL INFUSION RATE.
heparin 2021-05 No 3000U FOR Univers (1,000 2[facility]10 [facility], 10 05:51: 23:28 , Starting [place] mL vial) 39 :55 on Mon for 04/15/22 at [place] Rebolusing 2351, Until Tu04/19/22 at 1728, Routine
Dosing based on aPPT [...] by ity of tablet 05:07: mouth at [place] [address] bedtime. Medical Branch insulin 2021-05 Yes 20U inject 20 Unive rs detemir 2-10 Units ity of U-100 100 05:07: under the [place] unit/mL 08 skin at Medical injection bedtime. Branch gabapentin 2021-05 Yes 100mg Take 100 Un lucila 100 mg 2-10 mg by ity of capsule 05:07: mouth in [place] 08 the Medical morning. Branch Thyroid, 2021-05 Yes 120mg Take 120 Univ ers [place], 2-10 mg by ity of (ARMOUR 05:07: mouth [place] THYROID) 08 daily. Medical 120 mg Branch tablet aspirin 2021-05- No 325mg 325 mg, Unive rs tablet 325 2-10 12-10 Oral, ONCE it y of mg 04:30: 04:30 NOW, [place] 00 :00 dose, On Medical Fri [...] by ity of tablet 15:53: mouth at [place] [address] bedtime. Medical Branch insulin 2021-05 Yes 30U [...] by ity of tablet 15:53: mouth at [place] [address] bedtime. Medical Branch insulin 2021-05 Yes 30U [...] ity of tablet 12:42: 00:00 in the [place] 38 :00 morning. Medical Branch Sliding 2021-05 Yes Subcutaneo [facility] ers Scale 05-09 us, TID ity of Insulin - 03:15: MEALS+HS, [place] Lispro 00 First dose Medical (HumaLOG) + (after Branch Fsbg last Testing modificati on) on Mon03/08/22 at 2215, Until Discontinu ed, Routine insulin 2021-05 Yes 20U 20 Units, [facility] rs glargine 05-09 Subcutaneo ity o f (LANTUS 02:00: us, [facility], [place] U-100) 00 First dose Medical injection on [facility] 20 Units 03/08/22 at 2100, Until Discontinu ed, Routine insulin 2021-05 Yes 20U 20 Units, [facility] rs glargine 05-09 Subcutaneo ity o f (LANTUS 02:00: us, [facility], [place] U-100) 00 First dose Medical injection on [facility] 20 Units 03/08/22 at 2100, Until Discontinu ed, Routine aspirin 2021-05- No [id number] 325mg Take 1 U nivers E.C. 325 mg 05-09 tablet by it y of EC tablet 00:00: 05:59 mouth in [place] 00 :00 the Medical morning Branch and 1 tablet in the evening. Take with meals. Do all this for 26 days. aspirin 2021-05- No [id number] 325mg Take 1 U nivers E.C. 325 mg 05-09 tablet by it y of EC tablet 00:00: 05:59 mouth in [place] 00 :00 the Medical morning Branch and 1 tablet in the evening. Take with meals. Do all this for 26 days. aspirin 2021-05- No [id number] 325mg Take 1 U nivers E.C. 325 mg 05-09 tablet by it y of EC tablet 00:00: 05:59 mouth in [place] 00 :00 the Medical morning Branch and 1 tablet in the evening. Take with meals. Do all this for 26 days. aspirin 2021-05 No [id number] 325mg Take 1 U nivers E.C. 325 mg 05-09 tablet by it y of EC tablet 00:00: 05:59 mouth in [place] 00 :00 the Medical morning Branch and 1 tablet in the evening. Take with meals. Do all this for 26 days. HYDROcodone 2021-05 No [id number] 1{tbl} Take 1 U nivers -acetaminop 05-09 tablet by it y of hen 5-325 00:00: 05:59 mouth [place] mg tablet 00 :00 every 8 Medical (eight) Branch hours as needed for Pain (scale 4-6) for up to 7 days. Indication s: acute pain HYDROcodone 2021-05 No [id number] 1{tbl} Take 1 U nivers -acetaminop 05-09 tablet by it y of hen 5-325 00:00: 05:59 mouth [place] mg tablet 00 :00 every 8 Medical (eight) Branch hours as needed for Pain (scale 4-6) for up to 7 days. Indication s: acute pain HYDROcodone 2021-05 Yes 1{tbl} 1 tablet, Univers -acetaminop 01 Oral, ity of hen (NORCO 18:28: Q6HPRN, [place] 5) 5-325 mg 34 Starting Medi [place] tablet 1 on Tue Branch tablet 03/08/22 at 1328, Until Discontinu ed, Routine, Pain (scale 4-6) HYDROcodone 2021-05 Yes 1{tbl} 1 tablet, Univers -acetaminop 01 Oral, ity of hen (NORCO 18:28: Q6HPRN, [place] 5) 5-325 mg 34 Starting Medi [place] tablet 1 on Tue Branch tablet 03/08/22 at 1328, Until Discontinu ed, Routine, Pain (scale 4-6) insulin 2021-05- No 10U 10 Units, Univ ers lispro 05-08 Subcutaneo ity of (human) 18:15: 17:36 us, ONCE, [place] (HumaLOG 00 :00 1 dose, On Medic al U-100) Tue Branch injection 03/08/22 at 10 Units 1315, Routine thyroid 2021-05 Yes 120mg 120 mg, Univer s (ARMOUR 05-08 Oral, ity of THYROID) 11:00: QAM-0600, [place] tablet 120 00 First dose Med ical mg on [facility] 03/08/22 at 0600, Until Discontinu ed thyroid 2021-05 Yes 120mg 120 mg, Univer s (ARMOUR 05-08 Oral, ity of THYROID) 11:00: QAM-0600, [place] tablet 120 00 First dose Med ical mg on [facility] 03/08/22 at 0600, Until Discontinu ed ketorolac 2021-05- No 15mg 15 mg, Unive rs (TORADOL) 05-08 Slow IV ity of injection 02:30: 02:19 Push, [place] 15 mg 00 :00 ONCE, 1 Medical dose, On Branch [facility] 03/07/22 at 2130, Routine gemfibroziL 2021-05 Yes 600mg 600 mg, Un lucila (LOPID) 1 Oral, QHS, ity of tablet 600 02:00: First dose [place] mg 00 on [facility] 03/07/22 Branch at 2100, Until Discontinu ed, Routine gemfibroziL 2021-05 Yes 600mg 600 mg, Un lucila (LOPID) 05-08 Oral, QHS, ity of tablet 600 02:00: First dose [place] mg 00 on [facility] 03/07/22 Branch at 2100, Until Discontinu ed, Routine ceFAZolin 2021-05 No 1g 1 g, IV Univ ers (ANCEF) 1 g 03-07 Piggyback, i ty of in NaCl 23:00: 23:34 ONCE, 1 [place] 0.9% (NS) 00 :00 dose, On Medica l 50 mL [facility] MINI-BAG 03/07/22 at 1800, Administer over [...] 1700, Until Discontinu ed, Routine aspirin 2021-05- No 325mg 325 mg, Unive rs E.C. 0-04-04 Oral, BID ity of (ECOTRIN) 22:00: 22:59 [...] Yes 2mg 2 mg, Slow Univers mg/mL) 0 IV Push, ity of injection 2 17:14: Q4HPRN, [place] mg 02 Starting Medical on Mon03/07/22 at 1214, Until Discontinu ed, Routine, For pain unrelieved by oral medication s, or if patient is unable to tolerate oral pain medication . morpHINE (2 2021-05 Yes 2mg 2 mg, Slow Univers mg/mL) 0 IV Push, ity of injection 2 17:14: Q4HPRN, [place] mg 02 Starting Medical on Mon03/07/22 at 1214, Until Discontinu ed, Routine, For pain unrelieved by oral medication s, or if patient is unable to tolerate oral pain medication . ondansetron 2021-05 Yes 4mg 4 mg, Unive rs (ZOFRAN-ODT 0-31 Oral, ity of ) 17:11: Q8HPRN, [place] disintegrat 32 Starting Medi rogers ing tablet on Mon Branch 4 mg 03/07/22 at 1211, Until Discontinu ed, Routine, Nausea and Vomiting (N/V) ondansetron 2021-05 Yes 4mg 4 mg, Unive rs (ZOFRAN-ODT 0-31 Oral, ity of ) 17:11: Q8HPRN, [place] disintegrat 32 Starting Medi rogers ing tablet [...] mouth ity of tablet 15:01: in the [place] [address] morning. Medical Branch gabapentin 2021-05 Yes 100mg Take 100 Un lucila 100 mg 0-31 mg by ity of capsule 15:01: mouth in [place] [address] the Medical morning. Branch Thyroid, 2021-05 Yes [...] mouth ity of tablet 15:01: in the [place] [address] morning. Medical Branch gabapentin 2021-05 Yes 100mg Take 100 Un lucila 100 mg 0-31 mg by ity of capsule 15:01: mouth in [place] [address] the Medical morning. Branch Thyroid, 2021-05 Yes 120mg Take 120 Univ ers P[place], 0-31 mg by ity of (ARMOUR 15:01: mouth [place] THYROID) 50 daily. Medical 120 mg Branch tablet ceFAZolin 2021-05- No Slow IV Univ ers (ANCEF) 0-03-07 Push, ONCE ity o f injection 14:50: 17:55 INTRA [place] 00 :24 PROCEDURE, Medical Starting Branch on Mon03/07/22 at 0950, Until Mon03/07/22 at 1255, MARCOS, Intra-op rocuronium 2021-05- No IV Push, Un lucila (ZEMURON) 0-07 03- ONCE INTRA ity of injection 14:49: 17:55 PROCEDURE, [place] 00 :24 Starting Medical on Mon Branch 03/07/22 at 0949, Until Mon03/07/22 at [...] injection 00 :24 Starting Medica l on Mon Branch 03/07/22 at 0947, Until Mon03/07/22 at [...] lactated 2021-05- No IV Univers ringers IV 03-07 Infusion, ity of infusion 14:41: 17:55 CONTINUOUS [...] No 5mg 5 mg, Unive rs (PRINIVIL,Z 0- 11- Oral, ity of ESTRIL) 14:00: 13:39 DAILY, [place] tablet 5 mg 00 :00 First dose Me dical on [facility] 03/07/22 at 0900, Until Discontinu ed, Routine KCL 2021-05- No 20meq 20 mEq, Univers (KLOR-CON 003-07 Oral, ity of M20) tablet 13:45: 13:06 ONCE, 1 [place] 20 mEq 00 :00 dose, On Medical [facility] 03/07/22 at 0845, Routine magnesium 2021-05 [...] 13:00: First dose [place] mg 00 on [facility] 03/07/22 Branch at 0800, Until Discontinu ed, Routine Sliding 2021-05 Yes Subcutaneo Univ ers Scale 0-31 us, TID ity of Insulin - 13:00: MEALS, [place] Lispro 00 First dose Medical (HumaLOG) + on [facility] Fsbg 03/07/22 Testing at 0800, Until [...] 13:00: First dose [place] mg 00 on [facility] 03/07/22 Branch at 0800, Until Discontinu ed, Routine Sliding 2021-05- No Subcutaneo Uni vers Scale 0-31 11-02 us, [...] by ity of tablet 12:15: mouth at [place] 20 bedtime. Medical Branch insulin 2021-05 Yes 10U inject 10 Unive rs aspart 0-31 Units ity of RAPID 100 12:15: under the [place] unit/mL 20 skin 3 Medical injection (three) Branch times daily with meals. gemfibroziL 2021-05 Yes 600mg Take 600 U nivers 600 mg 0-31 mg by ity of tablet 12:15: mouth at [place] 20 bedtime. Medical Branch levothyroxi 2021-05- No 50ug 50 mcg, Un lucila ne 0-03-07 Oral, ity of (SYNTHROID) 11:00: 23:00 QAM-0600, [...] 06:15: First dose [place] mg 00 on [facility] 03/07/22 Branch at 0115, Until Discontinu ed, Routine gabapentin 2021-05 Yes 100mg 100 mg, Uni vers (NEURONTIN) 0-31 Oral, TID, it y of capsule 100 06:15: First dose [place] mg 00 on [facility] 03/07/22 Branch at 0115, Until Discontinu ed, Routine ondansetron 2021-05 Yes 4mg 4 mg, Slow Univers (ZOFRAN 0-31 IV Push, ity of (PF)) 06:10: Q6HPRN, [place] injection 4 22 Starting Medi rogers mg on [facility] 03/07/22 at 0110, Until Discontinu ed, Routine, Nausea and Vomiting (N/V) ondansetron 2021-05 Yes 4mg 4 mg, Slow Univers (ZOFRAN 0-31 IV Push, ity of (PF)) 06:10: Q6HPRN, [place] injection 4 22 Starting Medi rogers mg on [facility] 03/07/22 at 0110, Until Discontinu ed, [...] No 2mg 2 mg, Slow Univers mg/mL) 003-07 IV Push, ity of injection 2 03:10: 03:22 [place]CE, 1 [place] mg 00 :00 dose, On Medical [place] [facility] 03/06/22 at 2215, Routine D5W 0.45% 2021-05 No 1000mL at 125 Uni vers NaCl 0- mL/hr, ity of (1/2NS) IV 03:00: 12:46 1,000 mL, [place] infusion 00 :40 IV Medical 1,000 mL Infusion, Branch CONTINUOUS , Starting on [place] 03/06/22 at 2200, Until [facility] 03/07/22 at 0746, MARCOS ondansetron 2021-05- No 4mg 4 mg, Slow Univers (ZOFRAN 0- IV Push, ity of (PF)) 02:00: 01:55 ONCE, 1 [place] injection 4 00 :00 dose, On Medi rogers mg [facility] 03/06/22 at 2100, MARCOS morpHINE (4 2021-05- No 4mg 4 mg, Slow Univers mg/mL) 0-31 10-31 IV Push, ity of injection 4 02:00: 01:55 [place]CE, 1 [place] mg 00 :[place] dose, On Medical [place] [facility] 03/06/22 at 2100, STAT levothyroxi 2020-05- No [id number] 75ug Take 1 Univers ne 75 mcg [...] Units ity of RAPID 12:55: under the [place] (NOVOLOG 59 skin 3 Medical U-100 (three) [...] First dose [place] mg 00 on [facility] 03/02/21 Branch at 2100, Until Discontinu ed, Routine gabapentin 2020-05 Yes 300mg 300 mg, Uni vers (NEURONTIN) 0-27 Oral, QHS, it y of capsule 300 02:00: First dose [place] mg 00 on [facility] 03/02/21 Branch at 2100, Until Discontinu ed, Routine insulin 2020-05- No [id number] 20U inject 20 Univers detemir 0-27 11-27 Units ity of U-100 00:00: 05:59 under the [place] (LEVEMIR 00 :00 skin daily Medic al U-100 for 30 Branch INSULIN) days. 100 unit/mL injection gabapentin 2020-05- No [id number] 300mg Take 1 Univers 300 mg 0-03 04- capsule by ity of capsule 00:00: 05:59 mouth at [place] 00 :00 bedtime Medical for 30 Branch days. insulin 2020-05- No 10U 10 Units, Univ ers glargine 0-02 03-27 Subcutaneo ity of (LANTUS 22:00: 13:11 us, QHS, [place] U-100) 00 :30 First dose Medical injection on [facility] 10 Units 03/02/21 at 1700, Until Discontinu ed, Routine Sliding 2020-05 Yes Subcutaneo Univ ers Scale 0-26 us, TID ity of Insulin - 17:00: MEALS+HS, [place] Lispro 00 First dose Medical (HumaLOG) + (after Branch Fsbg last Testing modificati on) on [facility] 03/02/21 at 1200, Until Discontinu ed, Routine Sliding 2020-05- No Subcutaneo Uni vers Scale 0-25 10-26 us, TID ity of Insulin - 22:00: 14:34 MEALS+HS, [place] Lispro 00 :54 First dose Medical (HumaLOG) + on [facility] 03/01/21 Testing at 1700, Until Discontinu ed, Routine LORazepam 2020-05 Yes 2mg 2 mg, Slow Un [place] (ATIVAN) 0-25 IV Push, ity of injection 2 17:44: Q6HPRN, [place] mg 59 Starting Medical on Mon [place] 03/01/21 at 1244, Until Discontinu ed, Routine, Seizures ondansetron 2020-05 Yes 4mg 4 mg, Slow Univers (ZOFRAN 0-25 IV Push, ity of (PF)) 17:44: Q6HPRN, [place] injection 4 26 Starting Medi rogers mg on [place] Branch 03/01/21 at 1244, Until Discontinu ed, Routine, Nausea and Vomiting (N/V) acetaminoph 2020-05 Yes 650mg 650 mg, Un lucila en 0-25 Oral, ity of (TYLENOL) 17:44: Q6HPRN, [place] tablet 650 19 Starting Medic al mg on [place] Branch 03/01/21 at 1244, Until Discontinu ed, Routine, Pain (scale 1-3) dextrose 50 2020-05- No 50mL 50 mL, Uni vers % in water 0-25 10-25 Intravenou it y of (D50W) 17:00: 15:40 s, ONCE, 1 [place] injection 00 :00 dose, On Medica l 50 mL Mon Branch 03/01/21 at 1200, STAT ondansetron 2020-05- [...] 1200, Until Mon03/01/21 at 1629, MARCOS ondansetron 2018- Yes [id number] 4mg Take 1 Univers (ZOFRAN 1-28 tablet by ity of ODT) 4 mg 00:00: mouth [place] disintegrat 00 every 8 Medic al ing tablet (eight) Branch hours as needed for Nausea and Vomiting (N/V). ondansetron 2018- Yes [id number] 4mg Take 1 Univers (ZOFRAN 1-28 tablet by ity of ODT) 4 mg 00:00: mouth [place] disintegrat 00 every 8 Medic al ing tablet (eight) Branch hours as needed for Nausea and Vomiting (N/V). ondansetron 2019-0 Yes [id number] 4mg Take 1 Univers (ZOFRAN 1-28 tablet by ity of ODT) 4 mg 00:00: mouth [place] disintegrat 00 every 8 Medic al ing tablet (eight) Branch hours as needed for Nausea and Vomiting (N/V). ondansetron 2019-0 Yes [id number] 4mg Take 1 Univers (ZOFRAN 1-28 tablet by ity of ODT) 4 mg 00:00: mouth [place] disintegrat 00 every 8 Medic al ing tablet (eight) Branch hours as needed for Nausea and Vomiting (N/V). ondansetron 2019-0 Yes [id number] 4mg Take 1 Univers (ZOFRAN 1-28 tablet by ity of ODT) 4 mg 00:00: mouth [place] disintegrat 00 every 8 Medic al ing tablet (eight) Branch hours as needed for Nausea and Vomiting (N/V). ondansetron 2019-0 Yes [id number] 4mg Take 1 Univers (ZOFRAN 1-28 tablet by ity of ODT) 4 mg 00:00: mouth [place] disintegrat 00 every 8 Medic al ing tablet (eight) Branch hours as needed for Nausea and Vomiting (N/V). ondansetron 2019-0 Yes [id number] 4mg Take 1 Univers (ZOFRAN 1-28 tablet by ity of ODT) 4 mg 00:00: mouth [place] disintegrat 00 every 8 Medic al ing tablet (eight) Branch hours as needed for Nausea and Vomiting (N/V). ondansetron 2019-0 Yes [id number] 4mg Take 1 Univers (ZOFRAN 1-28 tablet by ity of ODT) 4 mg 00:00: mouth [place] disintegrat 00 every 8 Medic al ing tablet (eight) Branch hours as needed for Nausea and Vomiting (N/V). ondansetron 2019-0 Yes [id number] 4mg Take 1 Univers (ZOFRAN 1-28 tablet by ity of ODT) 4 mg 00:00: mouth [place] disintegrat 00 every 8 Medic al ing tablet (eight) Branch hours as needed for Nausea and Vomiting (N/V). ondansetron 2019-0 Yes [id number] 4mg Take 1 Univers (ZOFRAN 1-28 tablet by ity of ODT) 4 mg 00:00: mouth [place] disintegrat 00 every 8 Medic al ing tablet (eight) Branch hours as needed for Nausea and Vomiting (N/V). ondansetron 2019-0 Yes [id number] 4mg Take 1 Univers (ZOFRAN 1-28 tablet by ity of ODT) 4 mg 00:00: mouth [place] disintegrat 00 every 8 Medic al ing tablet (eight) Branch hours as needed for Nausea and Vomiting (N/V). ondansetron 2019-0 Yes [id number] 4mg Take 1 Univers (ZOFRAN 1-28 tablet by ity of ODT) 4 mg 00:00: mouth [place] disintegrat 00 every 8 Medic al ing tablet (eight) Branch hours as needed for Nausea and Vomiting (N/V). ondansetron 2019-0 Yes [id number] 4mg Take 1 Univers (ZOFRAN 1-28 tablet by ity of ODT) 4 mg 00:00: mouth [place] disintegrat 00 every 8 Medic al ing tablet (eight) Branch hours as needed for Nausea and Vomiting (N/V). ondansetron 2019-0 Yes [id number] 4mg Take 1 Univers (ZOFRAN 1-28 tablet by ity of ODT) 4 mg 00:00: mouth [place] disintegrat 00 every 8 Medic al ing tablet (eight) Branch hours as needed for Nausea and Vomiting (N/V). ondansetron 2019-0 Yes [id number] 4mg Take 1 Univers (ZOFRAN 1-28 tablet by ity of ODT) 4 mg 00:00: mouth [place] disintegrat 00 every 8 Medic al ing tablet (eight) Branch hours as needed for Nausea and Vomiting (N/V). ondansetron 2019-0 Yes [id number] 4mg Take 1 Univers (ZOFRAN 1-28 tablet by ity of ODT) 4 mg 00:00: mouth [place] disintegrat 00 every 8 Medic al ing tablet (eight) Branch hours as needed for Nausea and Vomiting (N/V). ondansetron 2019-0 Yes [id number] 4mg Take 1 Univers (ZOFRAN 1-28 tablet by ity of ODT) 4 mg 00:00: mouth [place] disintegrat 00 every 8 Medic al ing tablet (eight) Branch hours as needed for Nausea and Vomiting (N/V). ondansetron 2019-0 Yes [id number] 4mg Take 1 Univers (ZOFRAN 1-28 tablet by ity of ODT) 4 mg 00:00: mouth [place] disintegrat 00 every 8 Medic al ing tablet (eight) Branch hours as needed for Nausea and Vomiting (N/V). ondansetron 2019-0 Yes [id number] 4mg Take 1 Univers (ZOFRAN 1-28 tablet by ity of ODT) 4 mg 00:00: mouth [place] disintegrat 00 every 8 Medic al ing tablet (eight) Branch hours as needed for Nausea and Vomiting (N/V). ondansetron 2019-0 Yes [id number] 4mg Take 1 Univers (ZOFRAN 1-28 tablet by ity of ODT) 4 mg 00:00: mouth [place] disintegrat 00 every 8 Medic al ing tablet (eight) Branch hours as needed for Nausea and Vomiting (N/V). ondansetron 2019-0 Yes [id number] 4mg Take 1 Univers (ZOFRAN 1-28 tablet by ity of ODT) 4 mg 00:00: mouth [place] disintegrat 00 every 8 Medic al ing tablet (eight) Branch hours as needed for Nausea and Vomiting (N/V). ondansetron 2019-0 Yes [id number] 4mg Take 1 Univers (ZOFRAN 1-28 tablet by ity of ODT) 4 mg 00:00: mouth [place] disintegrat 00 every 8 Medic al ing tablet (eight) Branch hours as needed for Nausea and Vomiting (N/V). ondansetron 2019-0 Yes [id number] 4mg Take 1 Univers (ZOFRAN 1-28 tablet by ity of ODT) 4 mg 00:00: mouth [place] disintegrat 00 every 8 Medic al ing tablet (eight) Branch hours as needed for Nausea and Vomiting (N/V). ondansetron 2019-0 Yes [id number] 4mg Take 1 Univers (ZOFRAN 1-28 tablet by ity of ODT) 4 mg 00:00: mouth [place] disintegrat 00 every 8 Medic al ing tablet (eight) Branch hours as needed for Nausea and Vomiting (N/V). ondansetron 2019-0 Yes [id number] 4mg Take 1 Univers (ZOFRAN 1-28 tablet by ity of ODT) 4 mg 00:00: mouth [place] disintegrat 00 every 8 Medic al ing tablet (eight) Branch hours as needed for Nausea and Vomiting (N/V). ondansetron 2019-0 Yes [id number] 4mg Take 1 Univers (ZOFRAN 1-28 tablet by ity of ODT) 4 mg 00:00: mouth [place] disintegrat 00 every 8 Medic al ing tablet (eight) Branch hours as needed for Nausea and Vomiting (N/V). ondansetron 2019-0 Yes [id number] 4mg Take 1 Univers (ZOFRAN 1-28 tablet by ity of ODT) 4 mg 00:00: mouth [place] disintegrat 00 every 8 Medic al ing tablet (eight) Branch hours as needed for Nausea and Vomiting (N/V). ondansetron 2019-0 Yes [id number] 4mg Take 1 Univers (ZOFRAN 1-28 tablet by ity of ODT) 4 mg 00:00: mouth [place] disintegrat 00 every 8 Medic al ing tablet (eight) Branch hours as needed for Nausea and Vomiting (N/V). ondansetron 2019-0 Yes [id number] 4mg Take 1 Univers (ZOFRAN 1-28 tablet by ity of ODT) 4 mg 00:00: mouth [place] disintegrat 00 every 8 Medic al ing tablet (eight) Branch hours as needed for Nausea and Vomiting (N/V). ondansetron 2019-0 Yes [id number] 4mg Take 1 Univers (ZOFRAN 1-28 tablet by ity of ODT) 4 mg 00:00: mouth [place] disintegrat 00 every 8 Medic al ing tablet (eight) Branch hours as needed for Nausea and Vomiting (N/V). ondansetron 2019-0 Yes [id number] 4mg Take 1 Univers (ZOFRAN 1-28 tablet by ity of ODT) 4 mg 00:00: mouth [place] disintegrat 00 every 8 Medic al ing tablet (eight) Branch hours as needed for Nausea and Vomiting (N/V). ondansetron 2019-0 Yes [id number] 4mg Take 1 Univers (ZOFRAN 1-28 tablet by ity of ODT) 4 mg 00:00: mouth [place] disintegrat 00 every 8 Medic al ing tablet (eight) Branch hours as needed for Nausea and Vomiting (N/V). ondansetron 2019-0 Yes [id number] 4mg Take 1 Univers (ZOFRAN 1-28 tablet by ity of ODT) 4 mg 00:00: mouth [place] disintegrat 00 every 8 Medic al ing tablet (eight) Branch hours as needed for Nausea and Vomiting (N/V). ondansetron Yes [id number] 4mg Take 1 Univers (ZOFRAN 1-28 tablet [...] as needed for Pain. Immunizations Ordered Filled Date Status Comments Source Immunization Name Immunization Name SARS-COV-2 COVID-19 2021-03-03 Completed Unive rsity of PFIZER VACCINE 00:00:00 [facility] SARS-COV-2 COVID-19 2021-03-03 Completed Unive rsity of PFIZER VACCINE 00:00:00 [facility] SARS-COV-2 COVID-19 2021-03-03 Completed Unive rsity of PFIZER VACCINE 00:00:00 [facility] SARS-COV-2 COVID-19 2021-03-03 Completed Unive rsity of PFIZER VACCINE 00:00:00 [facility] SARS-COV-2 COVID-19 2021-03-03 Completed Unive rsity of PFIZER VACCINE 00:00:00 [facility] SARS-COV-2 COVID-19 2021-03-03 Completed Unive rsity of PFIZER VACCINE 00:00:00 [facility] SARS-COV-2 COVID-19 2021-03-03 Completed Unive rsity of PFIZER VACCINE 00:00:00 [facility] SARS-COV-2 COVID-19 2021-03-03 Completed Unive rsity of PFIZER VACCINE 00:00:00 [facility] SARS-COV-2 COVID-19 2021-03-03 Completed Unive rsity of PFIZER VACCINE 00:00:00 [facility] SARS-COV-2 COVID-19 2021-03-03 Completed Unive rsity of PFIZER VACCINE 00:00:00 [facility] SARS-COV-2 COVID-19 2021-03-03 Completed Unive rsity of PFIZER VACCINE 00:00:00 [facility] SARS-COV-2 COVID-19 2021-03-03 Completed Unive rsity of PFIZER VACCINE 00:00:[address] [facility] SARS-COV-2 COVID-19 2021-03-03 Completed Unive rsity of PFIZER VACCINE 00:00:[address] [facility] SARS-COV-2 COVID-19 2021-03-03 Completed Unive rsity of PFIZER VACCINE 00:00:[address] [facility] SARS-COV-2 COVID-19 2021-03-03 Completed Unive rsity of PFIZER VACCINE 00:00:[address] [facility] SARS-COV-2 COVID-19 2021-03-03 Completed Unive rsity of PFIZER VACCINE 00:00:[address] [facility] SARS-COV-2 COVID-19 2021-03-03 Completed Unive rsity of PFIZER VACCINE 00:00:[address] [facility] SARS-COV-2 COVID-19 2021-03-03 Completed Unive rsity of PFIZER VACCINE 00:00:[address] [facility] SARS-COV-2 COVID-19 2021-03-03 Completed Unive rsity of PFIZER VACCINE 00:00:[address] [facility] SARS-COV-2 COVID-19 2021-03-03 Completed Unive rsity of PFIZER VACCINE 00:00:[address] [facility] SARS-COV-2 COVID-19 2021-03-03 Completed Unive rsity of PFIZER VACCINE 00:00:[address] [facility] SARS-COV-2 COVID-19 2021-03-03 Completed Unive rsity of PFIZER VACCINE 00:00:[address] [facility] SARS-COV-2 COVID-19 2021-03-03 Completed Unive rsity of PFIZER VACCINE 00:00:[address] [facility] SARS-COV-2 COVID-19 2021-03-03 Completed Unive rsity of PFIZER VACCINE 00:00:[address] [facility] SARS-COV-2 COVID-19 2021-03-03 Completed Unive rsity of PFIZER VACCINE 00:00:[address] [facility] SARS-COV-2 COVID-19 2021-03-03 Completed Unive rsity of PFIZER VACCINE 00:00:[address] [facility] SARS-COV-2 COVID-19 2021-03-03 Completed Unive rsity of PFIZER VACCINE 00:00:00 [facility] SARS-COV-2 COVID-19 2021-03-03 Completed Unive rsity of PFIZER VACCINE 00:00:00 [facility] SARS-COV-2 COVID-19 2021-03-03 Completed Unive rsity of PFIZER VACCINE 00:00:00 [facility] SARS-COV-2 COVID-19 2021-03-03 Completed Unive rsity of PFIZER VACCINE 00:00:00 [facility] SARS-COV-2 COVID-19 2021-03-03 Completed Unive rsity of PFIZER VACCINE 00:00:00 [facility] SARS-COV-2 COVID-19 2021-03-03 Completed Unive rsity of PFIZER VACCINE 00:00:00 [facility] SARS-COV-2 COVID-19 2021-03-03 Completed Unive rsity of PFIZER VACCINE 00:00:00 [facility] SARS-COV-2 COVID-19 2021-03-03 Completed Unive rsity of PFIZER VACCINE 00:00:00 [facility] Influenza Virus 2018-02-13 Completed Universit y of Vaccine Quad IM 3+ 00:00:00 [facility] Influenza Virus 2018-02-13 Completed Universit y of Vaccine Quad IM 3+ 00:00:00 [facility] Influenza Virus 2018-02-13 Completed Universit y of Vaccine Quad IM 3+ 00:00:00 [facility] Influenza Virus 2018-02-13 Completed Universit y of Vaccine Quad IM 3+ 00:00:00 [facility] Influenza Virus 2018-02-13 Completed Universit y of Vaccine Quad IM 3+ 00:00:00 [facility] Influenza Virus 2018-02-13 Completed Universit y of Vaccine Quad IM 3+ 00:00:00 [facility] Influenza Virus 2018-02-13 Completed Universit y of Vaccine Quad IM 3+ 00:00:00 [facility] Influenza Virus 2018-02-13 Completed Universit y of Vaccine Quad IM 3+ 00:00:00 [facility] Influenza Virus 2018-02-13 Completed Universit y of Vaccine Quad IM 3+ 00:00:00 [facility] Influenza Virus 2018-02-13 Completed Universit y of Vaccine Quad IM 3+ 00:00:00 [facility] Influenza Virus 2018-02-13 Completed Universit y of Vaccine Quad IM 3+ 00:00:00 [facility] Influenza Virus 2018-02-13 Completed Universit y of Vaccine Quad IM 3+ 00:00:00 [facility] Influenza Virus 2018-02-13 Completed Universit y of Vaccine Quad IM 3+ 00:00:00 [facility] Influenza Virus 2018-02-13 Completed Universit y of Vaccine Quad IM 3+ 00:00:00 [facility] Influenza Virus 2018-02-13 Completed Universit y of Vaccine Quad IM 3+ 00:00:00 [facility] Influenza Virus 2018-02-13 Completed Universit y of Vaccine Quad IM 3+ 00:00:00 [facility] Influenza Virus 2018-02-13 Completed Universit y of Vaccine Quad IM 3+ 00:00:00 [facility] Influenza Virus 2018-02-13 Completed Universit y of Vaccine Quad IM 3+ 00:00:00 [facility] Influenza Virus 2018-02-13 Completed Universit y of Vaccine Quad IM 3+ 00:00:00 [facility] Influenza Virus 2018-02-13 Completed Universit y of Vaccine Quad IM 3+ 00:00:00 [facility] Influenza Virus 2018-02-13 Completed Universit y of Vaccine Quad IM 3+ 00:00:00 [facility] Influenza Virus 2018-02-13 Completed Universit y of Vaccine Quad IM 3+ 00:00:00 [facility] Influenza Virus 2018-02-13 Completed Universit y of Vaccine Quad IM 3+ 00:00:00 [facility] Influenza Virus 2018-02-13 Completed Universit y of Vaccine Quad IM 3+ 00:00:00 [facility] Influenza Virus 2018-02-13 Completed Universit y of Vaccine Quad IM 3+ 00:00:00 [facility] Influenza Virus 2018-02-13 Completed Universit y of Vaccine Quad IM 3+ 00:00:00 [facility] Influenza Virus 2018-02-13 Completed Universit y of Vaccine Quad IM 3+ 00:00:00 [facility] Influenza Virus 2018-02-13 Completed Universit y of Vaccine Quad IM 3+ 00:00:00 [facility] Influenza Virus 2018-02-13 Completed Universit y of Vaccine Quad IM 3+ 00:00:00 [facility] Influenza Virus 2018-02-13 Completed Universit y of Vaccine Quad IM 3+ 00:00:00 [facility] Influenza Virus 2018-02-13 Completed Universit y of Vaccine Quad IM 3+ 00:00:00 [facility] Influenza Virus 2018-02-13 Completed Universit y of Vaccine Quad IM 3+ 00:00:00 [facility] Influenza Virus 2018-02-13 Completed Universit y of Vaccine Quad IM 3+ 00:00:00 [facility] Influenza Virus 2018-02-13 Completed Universit y of Vaccine Quad IM 3+ 00:00:00 [facility] Influenza Four-QIV 2018-02-[address] [facility] [...] [facility] 00:[facility] Influ[facility] Four-QIV Unknown Completed [facility] Non-PF 5+ [facility] Vital Signs Vital Name Observation Time Observation Value Comments Source Systolic blood 2022-09-20 129 mm[Hg] [place] of pressure 15:06:00 [facility] Diastolic blood 2022-09-20 89 mm[Hg] [place] o f pressure 15:06:00 [facility] Heart rate 2022-09-20 61 /min [facility] 15:05:00 [facility] Body height 2022-09-20 175.3 cm [facility] 15:05:00 [facility] Body weight 2022-09-20 63.504 kg [facility] 15:05:00 [facility] BMI 2022-09-20 20.67 kg/m2 [facility] 15:05:00 [facility] Oxygen saturation 2022-09-20 100 /min [facility] in Arterial blood 15:05:00 [place] [facility] by Pulse oximetry Branch Systolic blood 2022-09-08 110 mm[Hg] University of pressure 12:56:00 [facility] Branch Diastolic blood 2022-09-08 67 mm[Hg] University o f pressure 12:56:00 [facility] Branch Heart rate 2022-09-08 58 /min University of 12:56:00 [facility] Body temperature 2022-09-08 36.39 [place] University of 12:56:00 [facility] Respiratory rate 2022-09-08 18 /min University of 12:56:00 [facility] Oxygen saturation 2022-09-08 96 /min University of in Arterial blood 12:56:00 [facility] rogers by Pulse oximetry Branch Body weight 2022-09-08 64.456 kg University of 09:13:00 [facility] BMI 2022-09-08 20.98 kg/m2 University of 09:13:00 [facility] Body height 2022-09-06 175.3 cm University of 23:02:00 [facility] Systolic blood 2022-09-06 159 mm[Hg] University of pressure 20:24:00 [facility] Diastolic blood 2022-09-06 94 mm[Hg] University o f pressure 20:24:00 [facility] Heart rate 2022-09-06 62 /min University of 20:24:00 [facility] Respiratory rate 2022-09-06 19 /min University of 20:16:00 [facility] Body height 2022-09-06 175.3 cm University of 20:16:00 [facility] Body weight 2022-09-06 63.504 kg University of 20:16:00 [facility] BMI 2022-09-06 20.67 kg/m2 University of 20:16:00 [facility] Oxygen saturation 2022-09-06 96 /min University of in Arterial blood 20:16:00 [facility] rogers by Pulse oximetry Branch Systolic blood 2022-05-24 142 mm[Hg] University of pressure 18:25:00 [facility] Branch Diastolic blood 2022-05-24 85 mm[Hg] University o f pressure 18:25:00 [facility] Heart rate 2022-05-24 68 /min University of 18:25:00 [facility] Body temperature 2022-05-24 37.17 [place]isha University of 18:25:00 [facility] Respiratory rate 2022-05-24 18 /min University of 18:25:00 [facility] Oxygen saturation 2022-05-24 99 /min University of in Arterial blood 18:25:[address] [facility] by Pulse oximetry Branch Body height 2022-05-24 175.3 cm University of 04:45:00 [facility] Body weight 2022-05-24 63.504 kg refused to stand University of 04:45:00 on scale [facility] BMI 2022-05-24 20.67 kg/m2 University of 04:45:00 [facility] Systolic blood 2022-05-07 113 mm[Hg] University of pressure 17:43:00 [facility] Diastolic blood 2022-05-07 79 mm[Hg] University o f pressure 17:43:00 [facility] Heart rate 2022-05-07 80 /min University of 17:43:00 [facility] Body temperature 2022-05-07 36.17 Elisha University of 17:43:00 [facility] Respiratory rate 2022-05-07 18 /min University of 17:43:00 [facility] Oxygen saturation 2022-05-07 100 /min University of in Arterial blood 17:43:[address] [facility] by Pulse oximetry [place] Body weight 2022-05-07 62.596 kg University of 10:15:00 [facility] BMI 2022-05-07 20.38 kg/m2 University of 10:15:00 [facility] Body height 2022-05-05 175.3 cm University of 03:01:00 [facility] Systolic blood 2022-05-06 154 mm[Hg] University of pressure 17:29:54 [facility] Diastolic blood 2022-05-06 99 mm[Hg] University o f pressure 17:29:54 [facility] Respiratory rate 2022-05-06 12 /min University of 17:29:54 [facility] Oxygen saturation 2022-05-06 99 /min University of in Arterial blood 17:29:[address] [facility] by Pulse oximetry Branch Heart rate 2022-05-06 96 /min University of 16:47:21 [facility] Body temperature 2022-05-06 36.44 [place] University of 14:02:00 [facility] Body height 2022-05-05 175.3 cm University of 03:01:00 [facility] Body weight 2022-05-05 62.5 kg University of 03:01:00 [facility] BMI 2022-05-05 20.38 kg/m2 University of 03:01:00 [facility] Systolic blood 2022-04-21 119 mm[Hg] University of pressure 19:34:00 [facility] Branch Diastolic blood 2022-04-21 84 mm[Hg] University o f pressure 19:34:00 [facility] Heart rate 2022-04-21 101 /min University of 19:34:00 [facility] Body temperature 2022-04-21 35.28 [place] University of 19:34:00 [facility] Respiratory rate 2022-04-21 18 /min University of 19:34:00 [facility] Oxygen saturation 2022-04-21 99 /min University of in Arterial blood 19:34:00 [facility] rogers by Pulse oximetry [place] Body weight 2022-04-19 59.512 kg University 10:15:00 [facility] BMI 2022-04-19 20.55 kg/m2 University of 10:15:00 [facility] Body height 2022-04-16 170.2 cm University of 09:39:00 [facility] Systolic blood 2022-04-19 155 mm[Hg] University of pressure 21:49:16 [facility] Diastolic blood 2022-04-19 93 mm[Hg] University o f pressure 21:49:16 [facility] Respiratory rate 2022-04-19 15 /min University of 21:49:16 [facility] Oxygen saturation 2022-04-19 98 /min University of in Arterial blood 21:49:16 [place] [facility] by Pulse oximetry [place] Heart rate 2022-04-19 73 /min University of 20:14:04 [facility] Body temperature 2022-04-19 36.06 Elisha University of 14:31:00 [facility] Body weight 2022-04-19 59.512 kg University of 10:15:00 [facility] BMI 2022-04-19 20.55 kg/m2 University of 10:15:00 [facility] Body height 2022-04-16 170.2 cm University of 09:39:00 [facility] Systolic blood 2022-03-18 164 mm[Hg] University of pressure 17:00:00 [facility] Diastolic blood 2022-03-18 99 mm[Hg] University o f pressure 17:00:00 [facility] Heart rate 2022-03-18 113 /min University of 17:00:00 [facility] Oxygen saturation 2022-03-18 99 /min University of in Arterial blood 17:00:00 [place] [facility] by Pulse oximetry Branch Body height 2022-03-18 170.2 cm University of 16:57:00 [facility] Body weight 2022-03-18 62.687 kg University of 16:57:00 [facility] BMI 2022-03-18 21.65 kg/m2 University of 16:57:00 [facility] Systolic blood 2022-03-09 115 mm[Hg] University of pressure 16:33:00 [facility] Diastolic blood 2022-03-09 74 mm[Hg] University o f pressure 16:33:00 [facility] Heart rate 2022-03-09 91 /min University of 16:33:00 [facility] Body temperature 2022-03-09 36.5 Elisha University of 16:33:00 [facility] Respiratory rate 2022-03-09 18 /min University of 16:33:00 [facility] Oxygen saturation 2022-03-09 95 /min University of in Arterial blood 16:33:00 [facility] rogers by Pulse oximetry Branch Body height 2022-03-07 175.3 cm University of 03:34:00 [facility] Body weight 2022-03-07 68.04 kg University of 03:34:00 [facility] BMI 2022-03-07 22.15 kg/m2 University of 03:34:00 [facility] Respiratory rate 2022-03-07 15 /min University of 17:37:00 [facility] Systolic blood 2022-03-07 150 mm[Hg] University of pressure 12:39:00 [facility] Branch Diastolic blood 2022-03-07 92 mm[Hg] University o f pressure 12:39:00 [facility] Heart rate 2022-03-07 113 /min University of 12:39:00 [facility] Body temperature 2022-03-07 36.67 Elisha University of 12:39:00 [facility] Branch Respiratory rate 2022-03-07 18 /min University of 12:39:00 [facility] Oxygen saturation 2022-03-07 98 /min University of in Arterial blood 12:39:00 [place] [facility] by Pulse oximetry Branch Body height 2022-03-07 175.3 cm [facility] 03:34:00 [facility] Body weight 2022-03-07 68.04 kg [facility] 03:34:00 [facility] BMI 2022-03-07 22.15 kg/m2 [facility] 03:34:00 [facility] Systolic blood 2021-03-03 109 mm[Hg] University of pressure 16:44:00 [facility] Diastolic blood 2021-03-03 81 mm[Hg] [place] o f pressure 16:44:00 [facility] Heart rate 2021-03-03 85 /min [facility] 16:44:00 [facility] Body temperature 2021-03-03 36.33 Elisha [facility] 16:44:00 [facility] Respiratory rate 2021-03-03 16 /min [facility] 16:44:00 [facility] Oxygen saturation 2021-03-03 93 /min [facility] Arterial blood 16:44:[address] [facility] by Pulse oximetry [place] Body weight 2021-03-03 77.384 kg [facility] 09:09:00 [facility] BMI 2021-03-03 25.19 kg/m2 University 09:09:00 [facility] Body height 2021-03-01 175.3 cm Simultaneous [facility] 18:25:00 filing. User may [facility] not have seen [place] previous data. Procedures Procedure Date / Time Performing Clinician Source Performed POCT GLUCOSE (AUTOMATED) 2022-09-08 15:07:00 Tejal Guerra [facility] POCT GLUCOSE (AUTOMATED) 2022-09-08 12:58:00 Tejal Guerra [facility] MAGNESIUM 2022-09-08 08:58:00 Fausto Garcia [facility] TROPONIN I 2022-09-08 08:58:00 Kar Bryson [facility] BASIC METABOLIC PANEL (NA, 2022-09-08 08:58:00 Fausto Garcia [facility] K, CL, CO2, GLUCOSE, BUN, Medica l Branch CREATININE, CA) CBC WITH DIFF 2022-09-08 08:58:00 Fausto Garcia [facility] POCT GLUCOSE (AUTOMATED) 2022-09-08 02:00:00 Tejal Guerra [facility] POCT GLUCOSE (AUTOMATED) 2022-09-07 21:49:00 Tejal [facility] ABDOMEN PELVIS W 2022-09-07 18:25:59 [facility] POCT GLUCOSE (AUTOMATED) 2022-09-07 16:47:00 Tejal Guerra [facility] TRANSTHORACIC ECHO (TTE) 2022-09-07 13:24:[address] [facility] COMPLETE [facility] POCT GLUCOSE (AUTOMATED) 2022-09-07 12:48:00 Tejal Guerra [facility] CT ANGIOGRAM CHEST 2022-09-07 10:38:00 Ed [facility] CT ANGIOGRAM HEAD 2022-09-07 10:38:00 Ed [facility] TROPONIN I 2022-09-07 08:27:00 Tejal Guerra [facility] LIPID PANEL ([id number])(TOTAL 2022-09-07 08:27:00 Tejal Guerra [facility] CHOLESTEROL, [facility] TRIGLYCERIDES, HDL) N-TERMINAL PRO-BNP 2022-09-07 08:27:00 Kar Bryson [facility] POCT GLUCOSE (AUTOMATED) 2022-09-07 08:08:00 Tejal Guerra [facility] POCT GLUCOSE (AUTOMATED) 2022-09-07 04:50:00 Tejal Guerra [facility] POCT GLUCOSE (AUTOMATED) 2022-09-07 04:08:00 Tejal Guerra [facility] POCT GLUCOSE (AUTOMATED) 2022-09-07 00:39:00 Tejal Guerra [facility] MAGNESIUM 2022-09-06 23:46:00 Tejal Guerra [facility] TROPONIN I 2022-09-06 23:46:00 Tejal Guerra [facility] THYROID STIMULATING 2022-09-06 23:46:00 Tejal Guerra [facility] HORMONE [facility] BASIC METABOLIC PANEL (NA, 2022-09-06 23:46:00 Tejal Guerra [facility] K, CL, CO2, GLUCOSE, BUN, Medica l Branch CREATININE, CA) CBC WITH DIFF 2022-09-06 23:46:00 Tejal Guerra [facility] GLYCOSYLATED HEMOGLOBIN 2022-09-06 23:46:00 Tejla Guerra [facility] (A1C) [facility] POCT GLUCOSE (AUTOMATED) 2022-05-24 20:03:00 Bobby Burch [facility] MAGNESIUM 2022-05-24 18:30:00 Armand [facility] TROPONIN I 2022-05-24 18:30:00 Armand [facility] BASIC METABOLIC PANEL (NA, 2022-05-24 18:30:00 Viet Acuna [facility] K, CL, CO2, GLUCOSE, BUN, [facility] CREATININE, CA) ACTIVATED PARTIAL THRMPLAS 2022-05-24 18:30:00 Viet Acuna [facility] POCT GLUCOSE (AUTOMATED) 2022-05-24 18:30:00 Bobby Burch [facility] CBC WITH DIFF 2022-05-24 18:29:00 Armand [facility] POCT GLUCOSE (AUTOMATED) 2022-05-24 18:28:00 Bobby Burch [facility] POCT GLUCOSE (AUTOMATED) 2022-05-24 18:26:00 Bobby Burch [facility] TRANSTHORACIC ECHO (TTE) 2022-05-24 17:05:00 Viet Acuna [facility] LIMITED W/ DOPPLER AND Medical B ranch COLOR POCT GLUCOSE (AUTOMATED) 2022-05-24 14:43:00 Bobby Burch [facility] EKG-12 LEAD 2022-05-24 03:29:03 Christian Britton [facility] PROTHROMBIN TIME / INR 2022-05-24 01:51:00 Christian Britton [facility] ACTIVATED PARTIAL THRMPLAS 2022-05-24 01:51:00 Christian Britton [facility] JOHNNY [facility] GALV ONLY - INFLUENZA A B 2022-05-24 01:39:00 Christian Britton [facility] RSV PCR [facility] COVID-19 (ID NOW RAPID 2022-05-24 01:39:00 Christian Britton [facility] TESTING) Medical Branch LAB ONLY COVID 2022-05-24 01:39:00 Christian Britton [facility] INTERPRETATION [facility] LIPASE 2022-05-24 01:36:00 Christian Britton [facility] TROPONIN I 2022-05-24 01:36:00 Christian Britton [facility] COMP. METABOLIC PANEL 2022-05-24 01:36:00 Reba [facility] ([id number]) [facility] CBC WITH DIFF 2022-05-24 01:36:00 Reba [facility] GLYCOSYLATED HEMOGLOBIN 2022-05-24 01:36:00 Viet Acuna [facility] (A1C) [facility] CONSENT/REFUSAL FOR 2022-05-24 01:23:09 Doctor Unassigned, [facility] DIAGNOSIS AND TREATMENT [place] [facility] POCT GLUCOSE (AUTOMATED) 2022-05-24 01:23:00 Christian [facility] PO[facility] GLUCOSE (AUTOMATED) 2022-05-07 19:03:00 Ariel Denson [facility] POCT GLUCOSE (AUTOMATED) 2022-05-07 19:03:00 [facility] PO[facility]SE ([facility]OMATED) 2022-05-07 14:55:00 [facility] POCT GLUCOSE (AUTOMATED) 2022-05-07 14:55:00 [facility] POCT GLUCOSE (AUTOMATED) 2022-05-07 10:13:00 Ariel Denson Uni [facility] POCT GLUCOSE (AUTOMATED) 2022-05-07 10:13:00 [facility] MAGNESIUM 2022-05-07 07:56:00 BlackGreyson [place] o f [facility] BASIC METABOLIC PANEL (NA, 2022-05-07 07:56:00 BlackGreyson [facility] [place] K, CL, CO2, GLUCOSE, BUN, [place] [facility] CREATININE, CA) CBC WITH DIFF 2022-05-07 07:56:00 BlackGreyson [facility] MAGNESIUM 2022-05-07 07:56:00 Black [facility] BASIC METABOLIC PANEL (NA, 2022-05-07 07:56:00 Black, Greyson [facility] [place] K, CL, CO2, GLUCOSE, BUN, [facility]ica [facility] CREATININE, CA) CBC WITH DIFF 2022-05-07 07:56:00 Greyson Kim [place] ronnie keen [facility] POCT GLUCOSE (AUTOMATED) 2022-05-07 07:32:00 Ariel Denson [facility] POCT GLUCOSE (AUTOMATED) 2022-05-07 07:32:00 Ariel Denson Uni [facility] POCT GLUCOSE (AUTOMATED) 2022-05-07 01:26:00 Ariel Denson Uni [facility] POCT GLUCOSE (AUTOMATED) 2022-05-07 01:26:00 Ariel Denson Uni [facility] POCT GLUCOSE (AUTOMATED) 2022-05-07 01:02:00 Ariel Denson Uni [facility] POCT GLUCOSE (AUTOMATED) 2022-05-07 01:02:00 Ariel Denson Uni [facility] POCT GLUCOSE (AUTOMATED) 2022-05-06 21:39:00 Ariel Denson Uni [facility] POCT GLUCOSE (AUTOMATED) 2022-05-06 21:39:00 Ariel Denosn Uni versity of [facility] ACTIVATED PARTIAL THRMPLAS 2022-05-06 21:31:00 Isaiah Palmer [facility] ACTIVATED PARTIAL THRMPLAS 2022-05-06 21:31:00 Isaiah Palmer [facility] POCT ACT LOW RANGE 2022-05-06 17:45:00 [facility] POCT ACT LOW RANGE 2022-05-06 17:45:00 Jarett [facility] y of [facility] CARDIAC CATHETERIZATION 2022-05-06 17:44:38 [facility] ersity of [facility] CARDIAC CATHETERIZATION 2022-05-06 17:44:38 [facility] ersity of [facility] CARDIAC CATHETERIZATION 2022-05-06 17:44:38 [facility] ersity of [facility] CARDIAC CATHETERIZATION 2022-05-06 17:44:38 [facility] ersity of [facility] CARDIAC CATHETERIZATION 2022-05-06 17:44:38 [facility] ersity of [facility] CARDIAC CATHETERIZATION 2022-05-06 17:44:38 [facility] POCT ACT LOW RANGE 2022-05-06 17:00:00 Ammy [facility] POCT ACT LOW RANGE 2022-05-06 17:00:00 Jarett [facility] CATH PROCEDURE LOG 2022-05-06 16:49:08 Ammy [facility] CATH PROCEDURE LOG 2022-05-06 16:49:08 [facility] HB ECG ROUTINE & RHYTHM 2022-05-06 14:08:11 Julio Greyson [facility] ersity of [facility] HB ECG ROUTINE & RHYTHM 2022-05-06 14:08:11 Julio Greyson [facility] POCT GLUCOSE (AUTOMATED) 2022-05-06 14:05:00 Jarett Keaganmanish [facility] POCT GLUCOSE (AUTOMATED) 2022-05-06 14:05:00 Ariel Denson [facility] POCT GLUCOSE (AUTOMATED) 2022-05-06 12:32:00 Ariel Denson Uni versity [facility] POCT GLUCOSE (AUTOMATED) 2022-05-06 12:32:00 Ariel Denson Uni versity [facility] MAGNESIUM 2022-05-06 10:57:00 [facility] 2022-05-06 10:57:00 Misha [facility] BASIC METABOLIC PANEL (NA, 2022-05-06 10:57:00 Iasiah Palmer [facility] K, CL, CO2, GLUCOSE, BUN, Medica l Branch CREATININE, CA) CBC WITH DIFF 2022-05-06 10:57:00 [facility] ACTIVATED PARTIAL THRMPLAS 2022-05-06 10:57:00 Isaiah Palmer [facility] MAGNESIUM 2022-05-06 10:57:00 Misha [facility] TROPONIN I 2022-05-06 10:57:00 Misha [facility] BASIC METABOLIC PANEL (NA, 2022-05-06 10:57:00 Isaiah Palmer [facility] K, CL, CO2, GLUCOSE, BUN, Medica l Branch CREATININE, CA) CBC WITH DIFF 2022-05-06 10:57:00 [facility] ACTIVATED PARTIAL THRMPLAS 2022-05-06 10:57:00 Isaiah Palmer [facility] POCT GLUCOSE (AUTOMATED) 2022-05-06 10:25:00 Ariel Denson Uni versity [facility] POCT GLUCOSE (AUTOMATED) 2022-05-06 10:25:00 Ariel Denson Uni versity [facility] POCT GLUCOSE (AUTOMATED) 2022-05-06 05:34:00 Ariel Denson Uni versity [facility] POCT GLUCOSE (AUTOMATED) 2022-05-06 05:34:00 [facility] PO[facility]UCOSE (AUTOMATED) 2022-05-06 04:15:00 [facility] POCT GLUCOSE (AUTOMATED) 2022-05-06 04:15:00 [facility] ACTIVATED PARTIAL THRMPLAS 2022-05-06 02:23:00 Isaiah Palmer [facility] ACTIVATED PARTIAL THRMPLAS 2022-05-06 02:23:00 Isaiah Palmer [facility] POCT GLUCOSE (AUTOMATED) 2022-05-05 23:12:00 [facility]el [facility] POCT GLUCOSE (AUTOMATED) 2022-05-05 23:12:00 [facility]el [facility] POCT GLUCOSE (AUTOMATED) 2022-05-05 19:18:00 Ariel [facility] POCT GLUCOSE (AUTOMATED) 2022-05-05 19:18:00 Ariel Denson [facility] ACTIVATED PARTIAL THRMPLAS 2022-05-05 18:28:00 Isaiah Palmer [facility] ACTIVATED PARTIAL THRMPLAS 2022-05-05 18:28:00 Isaiah Palmer [facility] TROPONIN I 2022-05-05 18:26:00 [facility] TROPONIN I 2022-05-05 18:26:00 Estela Palmer [facility] HB ECG ROUTINE & RHYTHM 2022-05-05 13:58:39 Estela Palmer [facility] HB ECG ROUTINE & RHYTHM 2022-05-05 13:58:39 [facility] THRMPLAS 2022-05-05 11:27:00 Isaiah Palmer [facility] ACTIVATED PARTIAL THRMPLAS 2022-05-05 11:27:00 Isaiah Palmer [facility] MAGNESIUM 2022-05-05 10:51:00 Estela Palmer [facility] TROPONIN I 2022-05-05 10:51:00 Estela Palmer [facility] BASIC METABOLIC PANEL (NA, 2022-05-05 10:51:00 Isaiah Palmer [facility] K, CL, CO2, GLUCOSE, BUN, Medica l Branch CREATININE, CA) CBC WITH DIFF 2022-05-05 10:51:00 Estela Palmer [facility] PROTHROMBIN TIME / INR 2022-05-05 10:51:00 Estela Palmer [facility] ACTIVATED PARTIAL THRMPLAS 2022-05-05 10:51:00 Isaiah Palmer [facility] MAGNESIUM 2022-05-05 10:51:00 Estela Palmer [facility] TROPONIN I 2022-05-05 10:51:00 Estela Palmer [facility] BASIC METABOLIC PANEL (NA, 2022-05-05 10:51:00 Isaiah Palmer [facility] K, CL, CO2, GLUCOSE, BUN, Medica l Branch CREATININE, CA) CBC WITH DIFF 2022-05-05 10:51:00 Estela Palmer [facility] PROTHROMBIN TIME / INR 2022-05-05 10:51:00 Estela Palmer [facility] ACTIVATED PARTIAL THRMPLAS 2022-05-05 10:51:00 Isaiah Palmer [facility] HB ECG ROUTINE & RHYTHM 2022-05-05 03:56:06 [facility]HYTHM 2022-05-05 03:56:06 [facility] PO[facility] GLU[facility]SE (AUTOMATED) 2022-04-21 18:57:00 [facility]) 2022-04-21 16:47:00 Shey Ramos [facility] POCT GLUCOSE (AUTOMATED) 2022-04-21 13:59:00 Shey Ramos versity of [facility] POCT GLUCOSE (AUTOMATED) 2022-04-21 06:41:00 Shey Ramos versity of [facility] POCT GLUCOSE (AUTOMATED) 2022-04-21 02:56:00 Shey Ramos versity of [facility] POCT GLUCOSE (AUTOMATED) 2022-04-20 22:45:00 Shey Ramos Uni versity of [facility] POCT GLUCOSE (AUTOMATED) 2022-04-20 22:45:00 Shey Ramos versity of [facility] TRANSTHORACIC ECHO (TTE) 2022-04-20 20:08:05 Aron York Uni versity of [facility] TRANSTHORACIC ECHO (TTE) 2022-04-20 20:08:05 Aron York Uni versity of [facility] POCT GLUCOSE (AUTOMATED) 2022-04-20 18:08:00 Shey Ramos Uni versity of [facility] POCT GLUCOSE (AUTOMATED) 2022-04-20 18:08:00 Shey Ramos versity of [facility] TROPONIN I 2022-04-20 17:25:00 Emely [facility] TROPONIN I 2022-04-20 17:25:00 Emely [facility] HB ECG ROUTINE & RHYTHM 2022-04-20 16:00:18 Jose Han [facility] [place] STRIP [facility] HB ECG ROUTINE & RHYTHM 2022-04-20 16:00:18 Jose Han [facility] [place] STRIP [facility] POCT GLUCOSE (AUTOMATED) 2022-04-20 14:12:00 Shey Ramos versity of [facility] POCT GLUCOSE (AUTOMATED) 2022-04-20 14:12:00 Shey Ramos versity of [facility] POCT GLUCOSE (AUTOMATED) 2022-04-20 05:50:00 Shey Ramos Uni versity of [facility] POCT GLUCOSE (AUTOMATED) 2022-04-20 05:50:00 Shey Ramos Dotty [facility] POCT GLUCOSE (AUTOMATED) 2022-04-20 02:47:00 Shey [facility] PO[facility] GLUCOSE (AUTOMATED) 2022-04-20 02:47:00 Shey Ramos [facility] ACTIVATED PARTIAL THRMPLAS 2022-04-20 00:36:00 Ayana Smith [facility] ACTIVATED PARTIAL THRMPLAS 2022-04-20 00:36:00 Ayana Smith [facility] POCT GLUCOSE (AUTOMATED) 2022-04-19 23:58:00 Shey Rmaos [facility] PO[facility] GLUCOSE (AUTOMATED) 2022-04-19 23:58:00 Shey [facility] CARDIAC CATHETERIZATION 2022-04-19 21:42:42 Chanell [facility] CARDIAC CATHETERIZATION 2022-04-19 21:42:42 Chanell [facility] CARDIAC CATHETERIZATION 2022-04-19 21:42:42 Chanell [facility] CARDIAC CATHETERIZATION 2022-04-19 21:42:42 Chanell [facility] CARDIAC CATHETERIZATION 2022-04-19 21:42:42 Chanell [facility] CARDIAC CATHETERIZATION 2022-04-19 21:42:42 Chanell [facility] CARDIAC CATHETERIZATION 2022-04-19 21:42:42 Chanell [facility] CARDIAC CATHETERIZATION 2022-04-19 21:42:42 Chanell [facility] CARDIAC CATHETERIZATION 2022-04-19 21:42:42 Chanell [facility] CARDIAC CATHETERIZATION 2022-04-19 21:42:42 Chanell [facility] CATH PROCEDURE LOG 2022-04-19 20:27:54 Chanell [facility] CATH PROCEDURE LOG 2022-04-19 20:27:54 Chanell [facility] POCT GLUCOSE (AUTOMATED) 2022-04-19 15:14:00 [facility] PO[facility] GLUCOSE (AUTOMATED) 2022-04-19 15:14:00 [facility] PO[facility] GLUCOSE (AUTOMATED) 2022-04-19 14:27:00 [facility] PO[facility] GLUCOSE (AUTOMATED) 2022-04-19 14:27:00 Shey [facility] MAGNESIUM 2022-04-19 10:33:00 Greg [facility] BASIC METABOLIC PANEL (NA, 2022-04-19 10:33:00 Lui Han [facility] K, CL, CO2, GLUCOSE, BUN, [facility] CREATININE, CA) CBC WITH DIFF 2022-04-19 10:33:00 Emely [facility] MAGNESIUM 2022-04-19 10:33:00 Emely [facility] BASIC METABOLIC PANEL (NA, 2022-04-19 10:33:00 Emely [facility] K, CL, CO2, GLUCOSE, BUN, Hani [facility]ica [facility] CREATININE, CA) CBC WITH DIFF 2022-04-19 10:33:00 Emely [facility] POCT GLUCOSE (AUTOMATED) 2022-04-19 10:16:00 [facility] PO[facility] GLUCOSE (AUTOMATED) 2022-04-19 10:16:00 Shey Ramos [facility] POCT GLUCOSE (AUTOMATED) 2022-04-19 06:20:00 [facility] POCT GLUCOSE (AUTOMATED) 2022-04-19 06:20:00 [facility] POCT GLUCOSE (AUTOMATED) 2022-04-19 03:08:00 [facility] POCT GLUCOSE (AUTOMATED) 2022-04-19 03:08:00 Shey Ramos Uni versity of [facility] POCT GLUCOSE (AUTOMATED) 2022-04-19 00:08:00 Shey Ramos Uni versity of [facility] POCT GLUCOSE (AUTOMATED) 2022-04-19 00:08:00 Shey Ramos Uni versity of [facility] POCT GLUCOSE (AUTOMATED) 2022-04-18 22:34:00 Shey Ramos Uni versity of [facility] POCT GLUCOSE (AUTOMATED) 2022-04-18 22:34:00 Shey Ramos Uni versity of [facility] POCT GLUCOSE (AUTOMATED) 2022-04-18 17:18:00 Shey Ramos Uni versity of [facility] POCT GLUCOSE (AUTOMATED) 2022-04-18 17:18:00 Shey Ramos Uni versity of [facility] POCT GLUCOSE (AUTOMATED) 2022-04-18 14:44:00 Shey Ramos Uni versity of [facility] POCT GLUCOSE (AUTOMATED) 2022-04-18 14:44:00 Shey Ramos versity of [facility] MAGNESIUM 2022-04-18 10:38:00 Janis [facility] BASIC METABOLIC PANEL (NA, 2022-04-18 10:38:00 Roberto Bruce [facility] K, CL, CO2, GLUCOSE, BUN, [facility] CREATININE, CA) MAGNESIUM 2022-04-18 10:38:00 [facility] BASIC METABOLIC PANEL (NA, 2022-04-18 10:38:00 Roberto Bruce [facility] K, CL, CO2, GLUCOSE, BUN, [facility] CREATININE, CA) POCT GLUCOSE (AUTOMATED) 2022-04-18 10:28:00 Shey Ramos Uni [facility] POCT GLUCOSE (AUTOMATED) 2022-04-18 10:28:00 Shey Ramos Uni vers[facility] of [facility] POCT GLUCOSE (AUTOMATED) 2022-04-18 06:11:00 Shey Ramos [facility] POCT GLUCOSE (AUTOMATED) 2022-04-18 06:11:00 Shey Ramos Uni [facility]ity [facility] POCT GLUCOSE (AUTOMATED) 2022-04-18 02:46:00 Richard Amer Uni versity of [facility] POCT GLUCOSE (AUTOMATED) 2022-04-18 02:46:00 Shey Ramos Uni [facility] of [facility] POCT GLUCOSE (AUTOMATED) 2022-04-17 22:09:00 Shey Ramos Uni [facility] POCT GLUCOSE (AUTOMATED) 2022-04-17 22:09:00 Shey Ramos Uni [facility] COVID-19 (ID NOW RAPID 2022-04-17 18:33:00 Vimal Hills [facility] [place] TESTING) [facility] LAB ONLY COVID 2022-04-17 18:33:00 [facility] INTERPRETATION [facility] COVID-19 (ID NOW RAPID 2022-04-17 18:33:00 Vimal Hills [facility] [place] TESTING) [facility] LAB ONLY COVID 2022-04-17 18:33:00 [facility] INTERPRETATION [facility] POCT GLUCOSE (AUTOMATED) 2022-04-17 18:25:00 Shey Ramos Uni [facility] POCT GLUCOSE (AUTOMATED) 2022-04-17 18:25:00 Shey Ramos Uni [facility] POCT GLUCOSE (AUTOMATED) 2022-04-17 17:44:00 Shey Ramos Uni [facility] POCT GLUCOSE (AUTOMATED) 2022-04-17 17:44:00 Shey Ramos Uni [facility] POCT GLUCOSE (AUTOMATED) 2022-04-17 13:25:00 Richard Amer Uni [facility] of [facility] POCT GLUCOSE (AUTOMATED) 2022-04-17 13:25:00 Shey Ramos [facility] [place] [facility] MAGNESIUM 2022-04-17 10:39:00 [facility] 2022-04-17 10:39:00 [facility] BASIC METABOLIC PANEL (NA, 2022-04-17 10:39:00 Ayana Smith [facility] K, CL, CO2, GLUCOSE, BUN, Medica l Branch CREATININE, CA) ACTIVATED PARTIAL THRMPLAS 2022-04-17 10:39:00 Ayana Smith [facility] MAGNESIUM 2022-04-17 10:39:00 Ayana Smith [facility] TROPONIN I 2022-04-17 10:39:00 [facility]OLIC PANEL (NA, 2022-04-17 10:39:00 Ayana Smith [facility] K, CL, CO2, GLUCOSE, BUN, Medica l Branch CREATININE, CA) ACTIVATED PARTIAL THRMPLAS 2022-04-17 10:39:00 Ayana Smith [facility] POCT GLUCOSE (AUTOMATED) 2022-04-17 10:37:00 [facility]) 2022-04-17 10:37:00 [facility] PO[facility]SE (AUTOMATED) 2022-04-17 05:50:00 [facility] PO[facility]SE (AUTOMATED) 2022-04-17 05:50:00 [facility] ACTIVATED PARTIAL THRMPLAS 2022-04-17 04:04:00 Ayana Smith [facility] ACTIVATED PARTIAL THRMPLAS 2022-04-17 04:04:00 Ayana Smith [facility] POCT GLUCOSE (AUTOMATED) 2022-04-17 02:37:00 [facility] (AUTOMATED) 2022-04-17 02:37:00 [facility] URINE DRUG (IMMUNOASSAY) - 2022-04-17 02:29:00 Ayana Smith [facility] COMPREHENSIVE DRUG SCREEN Medica l Branch URINALYSIS 2022-04-17 02:29:00 Brett Chaves [facility] GALV ONLY - URINE DRUG 2022-04-17 02:29:00 Ayana Smith [facility] (LCMSMS) - CHAI PANEL Medical Br anch URINE DRUG (LCMSMS) - 2022-04-17 02:29:00 Ayana Smith [facility] BENZODIAZEPINES PANEL Medical Br anch URINE DRUG (IMMUNOASSAY) - 2022-04-17 02:29:00 Ayana Smith [facility] COMPREHENSIVE DRUG SCREEN Medica l Branch URINALYSIS 2022-04-17 02:29:00 Brett Chaves [facility] GALV ONLY - URINE DRUG 2022-04-17 02:29:00 Ayana Smith [facility] (LCMSMS) - CHAI PANEL Medical Br anch URINE DRUG (LCMSMS) - 2022-04-17 02:29:00 Ayana Smith [facility] BENZODIAZEPINES PANEL Medical Br anch POCT GLUCOSE (AUTOMATED) 2022-04-16 23:27:00 Shey Ramos [facility] POCT GLUCOSE (AUTOMATED) 2022-04-16 23:27:00 Shey Ramos [facility] TROPONIN I 2022-04-16 19:57:00 [facility] TROPONIN I 2022-04-16 19:57:00 [facility] ACTIVATED PARTIAL THRMPLAS 2022-04-16 19:56:00 Ayana Smith [facility] ACTIVATED PARTIAL THRMPLAS 2022-04-16 19:56:00 Ayana Smith [facility] POCT GLUCOSE (AUTOMATED) 2022-04-16 16:59:00 Shey Ramos [facility] POCT GLUCOSE (AUTOMATED) 2022-04-16 16:59:00 Shey Ramos [facility] TROPONIN I 2022-04-16 12:13:00 Ayana Smith [facility] ACTIVATED PARTIAL THRMPLAS 2022-04-16 12:13:00 Ayana Smith [facility] TROPONIN I 2022-04-16 12:13:00 Ayana Smith [facility] ACTIVATED PARTIAL THRMPLAS 2022-04-16 12:13:00 Ayana Smith [facility] JOHNNY [facility] EKG-12 LEAD 2022-04-16 10:03:35 Brett Chaves [facility] EKG-12 LEAD 2022-04-16 10:03:35 Brett Chaves [facility] CT HEAD WO CONTRAST 2022-04-16 08:35:39 Brett Chaves [facility] CT HEAD WO CONTRAST 2022-04-16 08:35:39 Brett Chaves [facility] CT CHEST PULMONARY 2022-04-16 07:22:08 Brett Chaves [facility] ANGIOGRAM Medical Branch CT CHEST PULMONARY 2022-04-16 07:22:08 [facility]aves [facility] 1 2022-04-16 04:39:36 Brett Chaves [facility] XR CHEST 1 2022-04-16 04:39:36 Brett Chaves [facility] CK (CREATINE KINASE) + MB 2022-04-16 03:58:00 Brett Chaves [facility] LIPASE 2022-04-16 03:58:00 Brett Chaves [facility] TROPONIN I 2022-04-16 03:58:00 Brett Chaves [facility] FREE T4 2022-04-16 03:58:00 Lucero Paredes [facility] THYROID STIMULATING 2022-04-16 03:58:00 Ayana Smith [facility] HORMONE [facility] COMP. METABOLIC PANEL 2022-04-16 03:58:00 Brett Chaves [facility] ([id number]) Medical Branch LIPID PANEL ([id number])(TOTAL 2022-04-16 03:58:00 Ayana Smith [facility] CHOLESTEROL, Medical [place] TRIGLYCERIDES, HDL) ETHANOL 2022-04-16 03:58:00 Brett Chaves [facility] SERUM DRUG (IMMUNOASSAY) - 2022-04-16 03:58:00 Ayana Smith [facility] COMPREHENSIVE DRUG SCREEN Medica l Branch CBC WITH DIFF 2022-04-16 03:58:00 Brett Chaves [facility] D-DIMER 2022-04-16 03:58:00 Brett Chaves [facility] ACTIVATED PARTIAL THRMPLAS 2022-04-16 03:58:00 Brett Chaves [facility] CK (CREATINE KINASE) + MB 2022-04-16 03:58:00 Brett Chaves [facility] LIPASE 2022-04-16 03:58:00 Brett Chaves [facility] TROPONIN I 2022-04-16 03:58:00 Brett Chaves [facility] FREE T4 2022-04-16 03:58:00 Lucero Paredes [facility] THYROID STIMULATING 2022-04-16 03:58:00 Ayana Smith [facility] HORMONE [facility] COMP. METABOLIC PANEL 2022-04-16 03:58:00 Brett Chaves [facility] ([id number]) [facility] [place] LIPID PANEL (56218)(TOTAL 2022-04-16 03:58:00 Ayana Smith [facility]IGLY[facility], HDL) ETHANOL 2022-04-16 03:58:00 Brett Chaves [facility] SERUM DRUG (IMMUNOASSAY) - 2022-04-16 03:58:00 Ayana Smith [facility] COMPREHENSIVE DRUG SCREEN Medica l Branch CBC WITH DIFF 2022-04-16 03:58:00 Brett Chaves [facility] D-DIMER 2022-04-16 03:58:00 Brett Chaves [facility] ACTIVATED PARTIAL THRMPLAS 2022-04-16 03:58:00 Brett Chaves [facility] CONSENT/REFUSAL FOR 2022-04-16 03:17:24 Doctor Unassigned, [facility] DIAGNOSIS AND TREATMENT [place] [facility] CONSENT/REFUSAL FOR 2022-04-16 03:17:24 Doctor Unassigned, [facility] DIAGNOSIS AND TREATMENT [place] [facility] POCT GLUCOSE (AUTOMATED) 2022-03-09 19:52:00 Lorraine Trevizo Un i[facility] POCT GLUCOSE (AUTOMATED) 2022-03-09 13:21:00 Lorraine Trevizo Un iversity of [facility] POCT GLUCOSE (AUTOMATED) 2022-03-09 07:05:00 Lorraien Trevizo S Un [facility] POCT GLUCOSE (AUTOMATED) 2022-03-09 04:04:00 LucindariLorraine souza S [facility] [place] [facility] POCT GLUCOSE (AUTOMATED) 2022-03-09 02:25:00 LucindariLorraine souza S [facility] [place] [facility] POCT GLUCOSE (AUTOMATED) 2022-03-08 21:55:00 Lorraine Trevizo S [facility] [place] [facility] POCT GLUCOSE (AUTOMATED) 2022-03-08 21:55:00 YariLorraine souza S [facility] [place] [facility] POCT GLUCOSE (AUTOMATED) 2022-03-08 17:18:00 LucindariLorraine souza S [facility] [place] [facility] POCT GLUCOSE (AUTOMATED) 2022-03-08 17:18:00 Lorraine Trevizo [facility] POCT GLUCOSE (AUTOMATED) 2022-03-08 12:55:00 YariLorraine souza S [facility] [place] [facility] POCT GLUCOSE (AUTOMATED) 2022-03-08 12:55:00 LucindariLorraine souza S Un [facility] COMP. METABOLIC PANEL 2022-03-08 08:44:00 Jorge Pelayo [facility] ([id number]) Medical Branch CBC WITH DIFF 2022-03-08 08:44:00 Jorge Pelayo [place] o f [facility] COMP. METABOLIC PANEL 2022-03-08 08:44:00 Jorge Pelayo [facility] ([id number]) Medical Branch CBC WITH DIFF 2022-03-08 08:44:00 Jorge Pelayo [place] [facility] POCT GLUCOSE (AUTOMATED) 2022-03-08 05:40:00 Lorraine Trevizo Un [facility] POCT GLUCOSE (AUTOMATED) 2022-03-08 05:40:00 Lorraine Trevizo [facility] POCT GLUCOSE (AUTOMATED) 2022-03-08 02:17:00 Lorraine Trevizo [facility] POCT GLUCOSE (AUTOMATED) 2022-03-08 02:17:00 Lorraine Trevizo Un [facility] POCT GLUCOSE (AUTOMATED) 2022-03-07 23:06:00 Lorraine Trevizo [facility] POCT GLUCOSE (AUTOMATED) 2022-03-07 23:06:00 Lorraine Trevizo [facility] POCT GLUCOSE (AUTOMATED) 2022-03-07 22:13:00 Lorraine Trevizo [facility] POCT GLUCOSE (AUTOMATED) 2022-03-07 22:13:00 Lorraine Trevizo [facility] XR PELVIS <3 VW 2022-03-07 19:15:15 Eva [facility] XR PELVIS <3 VW 2022-03-07 19:15:15 Leonor Velasquez [facility] INTUBATION 2022-03-07 14:50:00 Gareth Galeana o [facility] HIP HEMIARTHROPLASTY 2022-03-07 14:26:00 [facility] HIP HEMIARTHROPLASTY 2022-03-07 14:26:00 Tor Montano [facility] POCT GLUCOSE (AUTOMATED) 2022-03-07 12:41:00 Lorraine Trevizo Un [facility] POCT GLUCOSE (AUTOMATED) 2022-03-07 12:41:00 Lor[facility] URINE DRUG (IMMUNOASSAY) - 2022-03-07 10:21:00 Jorge Pelayo [facility]ENS[facility] 2022-03-07 10:21:00 Jorge Pelayo [facility] SODIUM, URINE RANDOM 2022-03-07 10:21:[address] [facility] PROTEIN CREAT RATIO URINE 2022-03-07 10:21:00 [facility] URINE DRUG (IMMUNOASSAY) - 2022-03-07 10:21:00 Jorge Pelayo [facility] COMPREHENSIVE DRUG [facility]CREEN [facility] 2022-03-07 10:21:00 Jorge Pelayo [facility] SODIUM, URINE RANDOM 2022-03-07 10:21:[address] [facility] PROTEIN CREAT RATIO URINE 2022-03-07 10:21:[address] [facility] URINE CULTURE 2022-03-07 10:20:00 Jorge Pelayo [facility] URINE CULTURE 2022-03-07 10:20:00 Pierce martin [facility] POCT GLUCOSE (AUTOMATED) 2022-03-07 08:43:00 Lorraine [facility]izo [facility] PO[facility] GLUCOSE (AUTOMATED) 2022-03-07 08:43:00 Lorraine Trevizo [facility] PHOSPHORUS 2022-03-07 08:26:00 Jorge Pelayo [facility] MAGNESIUM 2022-03-07 08:26:00 Jorge Pelayo [facility] COMP. METABOLIC PANEL 2022-03-07 08:26:00 [id number] CBC WITH DIFF 2022-03-07 08:26:00 Jorge Pelayo [facility] PROTHROMBIN TIME / INR 2022-03-07 08:26:00 Jorge Pelayo [facility] N-TERMINAL PRO-BNP 2022-03-07 08:26:00 Jorge Pelayo [facility] PHOSPHORUS 2022-03-07 08:26:00 Pierce martin [facility] MAGNESIUM 2022-03-07 08:26:00 Pierce [facility] COMP. METABOLIC PANEL 2022-03-07 08:26:00 Jorge Pelayo [facility] ([id number]) [facility] CBC WITH DIFF 2022-03-07 08:26:00 Pierce martin [facility] PROTHROMBIN TIME / INR 2022-03-07 08:26:00 Pierce martin [facility] N-TERMINAL PRO-BNP 2022-03-07 08:26:00 Pierce martin [facility] POCT GLUCOSE (AUTOMATED) 2022-03-07 04:13:00 Lorraine Trevizo [facility] POCT GLUCOSE (AUTOMATED) 2022-03-07 04:13:00 Lorraine Trevizo [facility] XR PELVIS <3 VW 2022-03-07 02:04:37 Lorraine Trevizo [facility] XR PELVIS <3 VW 2022-03-07 02:04:37 Lorraine Trevizo [facility] XR CHEST 1 VW 2022-03-07 01:58:10 Lorraine Trevizo [facility] XR HIPS 2 VW RIGHT 2022-03-07 01:58:10 Lorraine Trevizo [facility] XR CHEST 1 VW 2022-03-07 01:58:10 Lorraine Trevizo [facility] XR HIPS 2 VW RIGHT 2022-03-07 01:58:10 Lorraine Trevizo [facility] HB ECG ROUTINE & RHYTHM 2022-03-07 01:56:57 Lorraine Trevizo [facility] HB ECG ROUTINE & RHYTHM 2022-03-07 01:56:57 Lorraine Trevizo [facility] URIC ACID 2022-03-07 01:46:00 Pierce martin [facility] MAGNESIUM 2022-03-07 01:46:00 Pierce [facility] FREE T4 2022-03-07 01:46:00 Pierce [facility] COMP. METABOLIC PANEL 2022-03-07 01:46:00 Lorraine Trevizo [facility] ([id number]) Medical Branch LIPID PANEL (76146)(TOTAL 2022-03-07 01:46:00 Jorge Pelayo [facility] CHOLESTEROL, Medical Branch TRIGLYCERIDES, HDL) ETHANOL 2022-03-07 01:46:00 Pierce [facility] SEDIMENTATION RATE 2022-03-07 01:46:00 Pierce [facility] CBC WITH DIFF 2022-03-07 01:46:00 Lorraine Trevizo [facility] GLYCOSYLATED HEMOGLOBIN 2022-03-07 01:46:00 Pierce martin [facility] (A1C) [facility] N-TERMINAL PRO-BNP 2022-03-07 01:46:00 Pierce martin [facility] FREE T3 2022-03-07 01:46:00 iPerce [facility] URIC ACID 2022-03-07 01:46:00 Pierce martin [facility] MAGNESIUM 2022-03-07 01:46:00 Pierce martin [facility] FREE T4 2022-03-07 01:46:00 Pierce [facility] COMP. METABOLIC PANEL 2022-03-07 01:46:00 Lorraine Trevizo [facility] ([id number]) Medical Branch LIPID PANEL (16611)(TOTAL 2022-03-07 01:46:00 Jorge Pelayo [facility] CHOLESTEROL, Medical Branch TRIGLYCERIDES, HDL) ETHANOL 2022-03-07 01:46:00 Pierce martin [facility] SEDIMENTATION RATE 2022-03-07 01:46:00 Pierce, Adnan [facility] CBC WITH DIFF 2022-03-07 01:46:00 Lorraine Trevizo [facility] GLYCOSYLATED HEMOGLOBIN 2022-03-07 01:46:00 Jorge Pelayo [facility] (A1C) [facility] N-TERMINAL PRO-BNP 2022-03-07 01:46:00 Jorge Pelayo [facility] FREE T3 2022-03-07 01:46:00 Jorge Pelayo [facility] POCT GLUCOSE (AUTOMATED) 2022-03-07 01:45:00 Lorraine Trevizo [facility] POCT GLUCOSE (AUTOMATED) 2022-03-07 01:45:00 Lorraine Trevizo [facility] NOTICE OF PRIVACY 2022-03-07 01:33:58 Doctor Unassigned, [facility] PRACTICES [place] [facility] [place] NOTICE OF PRIVACY 2022-03-07 01:33:58 Doctor Unassigned, [facility] CONSENT/REFUSAL FOR 2022-03-07 01:32:07 Doctor Unassigned, [facility]IS [facility] CONSENT/REFUSAL FOR 2022-03-07 01:32:07 Doctor Unassigned, [facility]IS [facility] POCT GLUCOSE (AUTOMATED) 2021-03-03 17:28:00 [facility] POCT GLUCOSE (AUTOMATED) 2021-03-03 13:06:00 Matt Ford [facility] BASIC METABOLIC PANEL (NA, 2021-03-03 09:15:00 Matt Ford [facility] K, CL, CO2, GLUCOSE, BUN, Medica l Branch CREATININE, CA) CBC WITH DIFF 2021-03-03 09:15:00 Matt Ford [facility] POCT GLUCOSE (AUTOMATED) 2021-03-03 03:19:00 Matt Ford [facility] POCT GLUCOSE (AUTOMATED) 2021-03-03 00:52:00 Matt Ford [facility] POCT GLUCOSE (AUTOMATED) 2021-03-02 22:20:00 Matt Ford [facility] ([facility]OMATED) 2021-03-02 17:14:00 Matt Ford [facility] POCT GLUCOSE (AUTOMATED) 2021-03-02 12:59:00 Matt Ford Dotty [facility] FREE T4 2021-03-02 09:44:00 Logan [facility] BASIC METABOLIC PANEL (NA, 2021-03-02 09:44:00 Matt Ford [facility] K, CL, CO2, GLUCOSE, BUN, Medica l Branch CREATININE, CA) FREE T3 2021-03-02 09:44:00 Logan [facility] POCT GLUCOSE (AUTOMATED) 2021-03-02 01:03:00 Matt Ford Dotty [facility] POCT GLUCOSE (AUTOMATED) 2021-03-01 21:37:00 [facility] CRITICAL CARE 2021-03-01 21:20:20 Akira Winter [facility] POCT GLUCOSE (AUTOMATED) 2021-03-01 20:55:00 [facility] POCT GLUCOSE (AUTOMATED) 2021-03-01 18:17:00 [facility] POCT GLUCOSE (AUTOMATED) 2021-03-01 16:49:00 Akira [facility] HEAD WO CONTRAST 2021-03-01 16:00:12 Akira Winter [facility] MAGNESIUM 2021-03-01 15:51:00 Akira Winter [facility] THYROID STIMULATING 2021-03-01 15:51:00 John [facility] HORMONE [facility] COMP. METABOLIC PANEL 2021-03-01 15:51:00 Akira Winter [facility] ([id number]) [facility] CBC WITH DIFF 2021-03-01 15:51:00 Akira Winter [facility] GLYCOSYLATED HEMOGLOBIN 2021-03-01 15:51:00 John Mary [facility] (A1C) Medical Branch COVID-19 (ID NOW RAPID 2021-03-01 15:51:00 Akira Winter [facility] TESTING) Medical Branch LAB ONLY COVID 2021-03-01 15:51:00 Akira Winter [place] [facility] [place] INTERPRETATION [facility] HB ECG ROUTINE & RHYTHM 2021-03-01 15:45:31 Akira Winter [facility] STRIP [facility] POCT GLUCOSE (AUTOMATED) 2021-03-01 15:42:00 Akira [facility] Plan of Care Planned Activity Planned Date Details Comments Source Future Scheduled 2021-02-[address] [facility]00 (procedure) [code = [facility] Center 79760910] Future Scheduled 2021-01-[address] [facility] 00:00:00 (Season Ended) [code = [facility] al Center INFLUENZA VACCINE (Season Ended)] Future Scheduled 2020-05-[address] [facility] Test 00:00:00 (12+) [code = Medical Center DEPRESSION SCREENING (12+)] Future Scheduled 2018-08-[address] [address] [facility] 00:[facility]00 measurement [facility] Center (procedure) [code = 44516642] Future Scheduled 1993 DTAP/TDAP/TD VACCINES CH I [...] 00:00:00 examination Medical Center (regime/therapy) [code = 478396428] Future Scheduled 1984-01-26 Urine screening for [facility] 00:00:00 protein (procedure) Medical Center [code = 640266461] Future Scheduled 1980-01-[address] [facility] Test 00:00:00 0-64 YRS (1 of 1 - Medical C enter PPSV23) [code = PNEUMOCOCCAL VACCINE 0-64 YRS (1 of 1 - PPSV23)] Future Scheduled [address] [facility] Test 00:00:00 malignant neoplasm of Medica l Center colon (procedure) [code = 595827003] Encounters Start End Encounter Admission Attending Care Care Encounter Source Date/Time Date/Time Type Type Clinicians Facility Department ID 2023-03-13 Inpatient DEIRDRE, [facility] [id number] H arris 14:50:30 [facility] 2023-03-13 Inpatient [facility], [facility] [id number] Hanna 00:00:00 [facility] 2023-03-13 Inpatient [facility], [facility] [id number] Hanna 00:00:00 [facility] 2023-03-11 Inpatient [facility] [id number] H arris 08:08:47 [facility] 2023-03-04 Emergency HFD [facility] [id number] ROSALINDA - 14:27:00 [facility] [id number] ROSALINDA - 14:59:10 [facility] 2023-01-18 Emergency [facility] [id number] ROSALINDA - 15:37:29 [place] [facility] 2022-12-09 Emergency [facility] [id number] ROSALINDA - 04:29:19 [place] [facility] 2022-12-03 Emergency [facility] HFD [id number] ROSALINDA - 21:35:55 [place] [facility] 2022-10-15 Emergency [facility] HFD [id number] ROSALINDA - 14:00:59 [place] [facility] 2022-09-28 Emergency [facility] [id number] ROSALINDA - 13:08:50 [place] [facility] 2021-03-[address] [facility] [id number] [facility] [facility] [id number] Univers 02:24:31 [facility] 2023-03-17 2023-03-17 Outpatient [facility] [id number] [address] [place] [address] 13:13:55 13:35:50 [facility] 2023-03-08 2023-03-17 Inpatient 1 TELLO [facility] [id number] 25 [place] 18:36:00 13:00:[address] [facility] 2023-03-08 2023-03-08 Emergency [facility] [id number] [place] 19:37:07 20:22:13 [facility] 2023-03-08 2023-03-08 [facility] [id number] [facility] [place] 19:55:52 20:03:01 WHIT [facility] 2023-03-08 2023-03-08 Emergency [facility] [id number] 2 [place] 10:45:00 11:18:00 [facility] 2023-03-08 2023-03-08 Outpatient [facility] [id number] [place] 00:00:00 00:00:00 [facility] 2023-03-04 2023-03-05 Outpatient E ENMANUEL Ivonne MED [id number] [facility] 16:26:00 13:26:00 JAAN 2023-02-22 2023-02-23 Inpatient E CAESAR [facility] [id number] Memoria 16:28:00 21:45:00 RINKU 00 l Preemption Memoria l [facility] 2023-02-14 2023-02-14 Outpatient GONZALEZ_DO [facility] 623 [id number] [place] 00:00:00 00:00:00 SHANIQUE_ [id number] [facility] 2023-02-08 2023-02-08 Emergency ESTELA CRUZ [facility] MED 2012 [id number] [place] 10:54:00 15:04:00 [facility] 2023-02-08 2023-02-08 Emergency [facility] [id number] [place] 12:27:14 12:38:46 [facility] 2023-02-06 2023-02-06 Outpatient PEE WYATT [facility] [id number] [place] 00:00:00 00:00:00 Health 2023-01-26 2023-01-26 Outpatient CONSTANZA [facility] [id number] [place] 00:00:00 00:00:00 JUSTINO [facility] 2023-01-17 2023-01-18 [facility] [id number] [place] 23:09:00 05:30:00 HERNANDEZ salcido 2023-01-18 2023-01-18 Emergency [facility] [id number] [place] 00:40:32 00:51:53 Health 2023-01-17 2023-01-17 Emergency [facility]IM[facility]ING [facility] 2002 [id number] [place] 23:28:33 23:31:31 , [facility] 2023-01-17 2023-01-17 [facility] 2002 [id number] [place] 00:00:00 00:00:00 , SABINA [facility] 2023-01-17 2023-01-17 [facility] 2002 [id number] [place] 00:00:00 00:00:00 , SABINA [facility] 2023-01-17 2023-01-17 Outpatient GONZALEZ_DO [facility] 623 [id number] [place] 00:00:00 00:00:00 SHANIQUE_ [id number] [facility] 2022-12-22 2022-12-22 Outpatient Gareth YI [facility] [id number] Univers 13:00:00 13:00:00 PHYLLIS bennett [facility] 2022-12-20 2022-12-20 Outpatient GONZALEZ_DO [facility] [phone] [place] 00:00:00 00:00:00 SHANIQUE_ [id number] [facility] 2022-12-09 2022-12-09 [facility] [id number] Jacques 03:49:00 06:45:00 [facility] 2022-12-04 2022-12-06 Inpatient Emergency Sintim, [facility]0007 7547 [facility] 01:57:00 14:10:00 [place] [facility] 32 2022-12-06 2022-12-06 Outpatient GONZALEZ_DO [facility] 623 [id number] Tamra 00:00:00 00:00:00 SHANIQUE_ [id number] [facility] 2022-12-04 2022-12-03 Inpatient Emergency Sintim, [facility] 7547 [facility] 01:57:00 20:50:00 [facility] 32 2022-10-16 2022-10-16 Emergency ELAGANDHALA [facility] [id number] [place] 13:51:00 19:48:00 , [facility]ARON [facility] 2022-10-15 2022-10-16 [facility] [id number] [place] 23:11:00 04:45:00 [facility] 2022-10-16 2022-10-16 Emergency BAKUNAS, [facility] [id number] [place] 01:30:26 02:12:07 [facility] 2022-10-13 2022-10-13 Outpatient JAQUEZ [facility] [id number] [place] 00:00:00 00:00:00 Stella LARSEN 2022-10-12 2022-10-12 Outpatient [facility] [id number] [place] 00:00:00 00:00:00 [facility] 2022-09-29 2022-10-06 Inpatient [facility] [id number] [place] 15:57:00 13:31:00 ALINA salcido 2022-10-04 2022-10-04 Inpatient [facility] [id number] [place] 15:58:47 16:35:35 [facility] 2022-10-04 2022-10-04 [facility] [id number] Univers 00:00:00 00:00:00 NI [facility] 2022-09-30 2022-09-30 Outpatient SUKHWINDER, [facility] [id number] [place] 06:43:06 08:05:20 [facility] 2022-09-20 2022-09-20 Outpatient [facility] [id number] Univers 10:00:00 13:28:30 NI [facility] 2022-09-20 2022-09-20 [facility] 1.2.840.114 [id number] Univers 10:00:00 13:28:30 Visit Ni JACKSON 350.1.13.10 i ty [facility] [place] [facility] [phone] [facility] 059 [facility] 2022-09-06 2022-09-08 [facility] 1.2.840.114 [id number] Univers 17:49:00 10:34:00 Encounter Tejal JACKSON 350.1.13.10 ity [facility] [place] [id number] [facility] 081 [place] 2022-09-07 2022-09-07 [facility] 1.2.242.660 [id number] Univers 00:00:00 00:00:00 Autumn JACKSON 350.1.13.10 ity of [place] [id number] [place] [id number] [facility] 2022-09-06 2022-09-06 Office [facility] 1.2.840.114 [id number] Univers 15:40:00 16:42:39 Visit Autumn JACKSON 350.1.13.10 it[place] of [place] [id number] [address] 2022-09-06 2022-09-06 Outpatient R [facility] [id number] Univers 15:40:00 16:42:39 NANCYMELODIE ity o f [facility] 2022-06-07 2022-06-07 Letter HEATHER Denson 1.2.840.114 [id number] Univers 00:00:00 00:00:00 (Out) Ariel REDD 350.1.13.10 it y of [facility] 4.2.7.2.686 [place]un as [id number] [place] [id number] [place] 2022-05-23 2022-05-24 Outpatient [facility] [id number] Univers 19:26:00 20:19:00 MOSTAFA ity of [facility] 2022-05-23 2022-05-24 Emergency Christian Britton 1.2.84 0.114 [id number] Univers 19:26:00 20:19:00 Bobby Burch EALY 350.1.13.10 ity of [facility] 4.2.7.2.686 [place] [id number] [facility] [address] 2022-05-23 2022-05-23 Telephone PEE Chauhan 1.2.840.114 [id number] Univers 00:00:00 00:00:00 Brigette REDD 350.1.13.10 i ty [facility] 4.2.7.2.686 [place] [phone] [address] 2022-05-19 2022-05-19 Telephone FAZAL Junior 1.2.840.114 [id number] Univers 00:00:00 00:00:00 Dale Kari Theresa MCLAUGHLIN 350.1.13.10 ity of [facility] [place].2.7.2.[place] [id number] [address] 2022-05-19 2022-05-19 Telephone BEN Rosa 1.2.517.896 [id number] Univers 00:00:00 00:00:00 Maria Fernanda Tiesha BRANDON 350.1.13.10 i ty of [place] [id number] [address] 2022-05-18 2022-05-18 Telephone PEE Chauhan 1.2.840.114 99 [id number] Univers 00:00:00 00:00:00 Brigette REDD 350.1.13.10 i ty of [facility] 4.2.7.2.686 [place]un as [phone] [address] 2022-05-18 2022-05-18 Telephone PEE Chauhan 1.2.840.114 [id number] Univers 00:00:00 00:00:00 Brigette REDD 350.1.13.10 i ty of [facility] 4.2.7.2.686 [place] as [id number] [address] 2022-05-13 2022-05-13 PEE Jacobson 1.2.840.114 [id number] Univers 00:00:00 00:00:00 Brigette REDD 350.1.13.10 i ty of [facility] 42.7.2.686 [place] as [id number] [address] 2022-05-13 2022-05-13 PEE Jacobson.2.840.114 99 [id number] Univers 00:00:00 00:00:00 Brigette REDD 350.1.13.10 i ty of [facility] 42.7.2.686 [place] as [phone] [address] 2022-05-13 2022-05-13 Telephone PEE Chauhan.2.840.114 99 [id number] Univers 00:00:00 00:00:00 Brigette ALVAREZY 350.1.13.10 i ty of [facility] 4.2.7.2.686 Jaun as [id number] [facility] [address] 2022-05-12 2022-05-12 Telephone PEE Chauhan 1.2.840.114 99 [id number] Univers 00:00:00 00:00:00 Brigette Gareth ALVAREZY 350.1.13.10 i ty of [address]686 [place] [id number] [facility] [address] 2022-05-11 2022-05-11 Telephone PEE Chauhan 1.2.840.114 99 [id number] Univers 00:00:00 00:00:00 Brigette Gareth ALVAREZY 350.1.13.10 i ty of [address]686 [place] as [id number] [facility] [address] 2022-05-11 2022-05-11 Telephone PEE Chauhan 1.2.840.114 99 [id number] Univers 00:00:00 00:00:00 Brigette Gareth ALVAREZY 350.1.13.10 i ty of [place] [address].2.7.2.686 Jaun as [id number] [facility] [address] 2022-05-10 2022-05-10 Transition BEN Rodriguez 1.2.840.114 [id number] Univers 00:00:00 00:00:00 of Care Patricia TAYLOR 350.1.13.10 ity [facility] 4.2.7.2.[place] [id number] [facility] [address] 2022-05-04 2022-05-07 Inpatient U [facility] [id number] Univers 20:46:00 15:28:00 ARIEL ity of [facility] 2022-05-04 2022-05-07 Hospital HEATHER Denson 1.2.840.114 [id number] Univers 20:46:00 15:28:00 Encounter Ariel REDD 350.1.13.10 ity of [address]686 [place] as [id number] [facility] [address] 2022-05-07 2022-05-07 Elena [facility] 1.2.840.114 [id number] Univers 00:00:00 00:00:00 Hamza PRIMARY 350.1.13.10 it y of CARE 4.2.7.2.686 [place] ellyn CEBALLOS [id number] Ct dical [address] 2022-05-06 2022-05-06 Surgery ZachHEATHER nguyen 1.2.840.114 99 [id number] Univers 09:30:00 11:30:00 Pam TRAMAINE 350.1.13.10 ity of HOSPITAL 4.2.7.2.686 [place] as [id number] [facility] [address] 2022-05-04 2022-05-04 Telephone PEE Chauhan 1.2.840.114 99 [id number] Univers 00:00:00 00:00:00 Brigette REDD 350.1.13.10 i ty of HOSPITAL 4.2.7.2.686 [place]un as [id number] [facility] [address] [place] 2022-05-03 2022-05-03 Telephone PEE Chauhan 1.2.840.114 99 [id number] Univers 00:00:00 00:00:00 Brigette REDD 350.1.13.10 i ty of HOSPITAL 4.2.7.2.686 Jaun as [id number] [facility] [address] [place] 2022-04-27 2022-04-27 PEE Jacobson 1.2.840.114 99 [id number] Univers 00:00:00 00:00:00 Brigette REDD 350.1.13.10 i ty of HOSPITAL 4.2.7.2.686 [place]un as [id number] [facility] [address] [place] 2022-04-26 2022-04-26 PEE Jacobson 1.2.840.114 99 [id number] Univers 00:00:00 00:00:00 Brigette REDD 350.1.13.10 i ty of HOSPITAL 4.2.7.2.686 Jaun as [id number] [facility] [address] [place] 2022-04-26 2022-04-26 Telephone PEE Chauhan 1.2.840.114 99 [id number] Univers 00:00:00 00:00:00 Brigette Gareth REDD 350.1.13.10 i ty of HOSPITAL 4.2.7.2.686 [place]un as [id number] [facility] [address] 2022-04-24 2022-04-24 Roxanne Junior, UNIVERSIT 1.2.950.618 [id number] Univers 00:00:00 00:00:00 (Out) Dale Netero HEALTH 350.1.13.10 ity of CL[place]ICS 4[place]2.[place].2.[place] [id number] [facility] [address] 2022-04-22 2022-04-22 Transition Rodrgiuez MANIIvonne 1.2.840.114 [id number] Univers 00:00:00 00:00:00 of Care Patricia TAYLOR 350.1.13.10 ity of [place]2.[place] [id number] [facility] [address] 2022-04-15 2022-04-21 Inpatient X [facility] 10 [id number] Univers 21:21:00 14:13:00 SHEY RAMOS ity of [facility] 2022-04-15 2022-04-21 [facility] Brett Chaves 1.2.840.11 4 [id number] Univers 21:21:00 14:13:00 Encounter Shey Ramos 350.1.13.10 ity of [facility] 4.2.7.2.686 Jaun as [id number] [facility] [address] 2022-04-19 2022-04-19 Surgery Bal Gold 1.2.840.114 [id number] Univers 13:53:00 15:53:00 N TRAMAINE 350.1.13.10 it y of HOSPITAL 4.2.7.2.686 Jaun as [id number] [facility] [address] 2022-04-18 2022-04-18 Roxanne Junior, UNIVERSIT 1.2.309.746 [id number] Univers 00:00:00 00:00:00 (Out) Dale Pierce Y HEALTH 350.1.13.10 ity of CL[place]ICS [place]2.[place] [id number] [facility] [address] 2022-04-15 2022-04-15 Outpatient Gareth BEN [facility] [id number] Univers 08:00:00 08:00:00 BELINDA ittheresa [facility] 2022-03-18 2022-03-18 Outpatient Gareth BEN [facility] [id number] Univers 11:15:00 12:11:35 BELINDA ittheresa [facility] 2022-03-18 2022-03-18 Office [facility] 1.2.840.114 [id number] Univers 11:15:00 12:11:35 Visit Belinda [facility] 350.1.13.10 it y of [place] 4.2.7.2.686 Jaun as DARRYL?BLEA [id number] [facility] [address] [facility] 2022-03-10 2022-03-10 Transition BEN Rodriguez 1.2.840.114 [id number] Univers 00:00:00 00:00:00 of Care Patricia TAYLOR 350.1.13.10 ity of [place]2.7.2.[place] [id number] [facility] [address] 2022-03-06 2022-03-09 Inpatient X [facility] [id number] Univers 20:34:00 15:50:00 ADNAN ity of [facility] 2022-03-06 2022-03-09 [place] 1.2.840. 114 [id number] Univers 20:34:00 15:50:00 Encounter Jorge Pelayo 350.1.13.10 ity of [place]2.[place] [id number] [facility] [address] 2022-03-07 2022-03-07 Anesthesia Alquicira-M [facility] 1.2.840.114 [id number] Univers 09:41:00 12:53:00 Event RENETTA campos 350.1.13.10 i ty of [place] 4.2.7.2.686 Jaun as SURGICAL [id number] [facility] [address] 2022-03-07 2022-03-07 Surgery Tremayne [facility] 1.2.547.270 [id number] Univers 09:30:00 12:03:00 Tor JACKSON 350.1.13.10 i ty [facility] 4.2.7.2.686 [facility] SURGICAL [id number] [facility] [address] 2021-03-12 2021-03-12 Outpatient Gareth MARYA [facility] [id number] Univers 16:30:00 16:30:00 ANDREI manishtheresa [facility] 2021-03-01 2021-03-03 Emergency Akira Winter [facility] 1.2.840. 114 [id number] Univers 10:40:00 12:50:00 Matt Ford 350.1.13.10 ity [facility] 4.2.7.2.686 [facility] [id number] [facility] [address] [place] 2020-10-27 2020-10-27 Transition Ben Rodriguez 1.2.840.114 [id number] 00:00:00 00:00:00 of Care Patricia Taylor 350.1.13.10 [place] 4.2.7.2.686 [id number] 403 2020-10-25 2020-10-26 Hospital Akira Winter [facility] 1.2.840.1 14 [id number] 16:12:00 18:10:00 Encounter Ryan Cardozo 350.1.13.10 Jorge [place] 4.2.7.2.686 [place] [id number] 080 2020-08-17 2020-08-17 Outpatient Gareth MONTANO [facility] [id number] Univers 16:01:43 23:59:00 TOR hammondtheresa [facility] 2020-08-17 2020-08-17 Office Tremayne [facility] 1.2.230.284 [id number] 15:25:16 16:33:28 Visit Tor Mclaughlin 350.1.13.10 Surgical 4.2.7.2.686 Special [id number] naeem Jackson Results Test Description Test Time Test Comments Results Result Comments Source HIV 1+2 Ab+HIV1 p24 Ag SerPl Ql [place] 2023-03-10 07:26:35 Test Item Value Reference Range Interpretation Comme nts HIV 1+2 Ab+HIV1 p24 Ag SerPl Ql IA (test code = 11607-8) NEGATIVE Negative HHSGlucose [id number] 11:34:00 Test Item Value Reference Range Interpretation Comments Glucose Fingerstick 195 mg/dL 70-115 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 Abrahan N (test code = WGLUC) Tony cardenas RN or Complete Blood Count Auto [id number] 08:00:00 Test Item Value Reference Range Interpretation Comments White Blood Count (test code = 5.3 x10 3/uL 4.4-10.5 N WBCT) Red Blood Count (test code = 4.22 x10 6/uL 4.10-5.70 N RBC) Hemoglobin (test code = HGBT) 12.6 g/dL 13.4-17.4 L Hematocrit (test code = HCTT) 36.9 % 38.7-52.0 L Mean Corpuscular Volume (test 87.40 fL 80.00-100.00 N code = MCV) Mean Corpuscular Hemoglobin 29.9 pg 27.0-32.5 N (test code = MCH) Mean Corpuscular HGB Conc (test 34.10 g/dL 32.00-37.50 N code = MCHC) RDW Coefficient of Variation 13.0 % 11.5-14.5 N (test code = RDWCV) Platelet Count (test code = 290 x10 3/uL 140.0-440.0 N PLTT) Mean Platelet Volume (test code 9.8 fL = MPV) Immature Granulocytes % (Auto) 0.4 % 0.0-5.0 N (test code = IMMGRAN%) Neutrophils % (Auto) (test code 50.9 % 36.0-70.0 N = NE%) Lymphocytes % (Auto) (test code 29.5 % 12.0-44.0 N = LY%) Monocytes % (Auto) (test code = 9.7 % 0.0-11.0 N MO%) Eosinophils % (Auto) (test code 8.0 % 0.0-7.0 H = EO%) Basophils % (Auto) (test code = 1.5 % 0.0-2.0 N BA%) Immature Granulocytes # (Auto) 0.02 x10 3/uL (test code = IMMGRAN#) Neutrophils # (Auto) (test code 2.7 x10 3/uL 1.6-7.4 N = NE#) Lymphocytes # (Auto) (test code 1.55 x10 3/uL 0.50-4.60 N = LY#) Monocytes # (Auto) (test code = 0.51 x10 3/uL 0.00-1.20 N MO#) Eosinophils # (Auto) (test code 0.42 x10 3/uL 0.00-0.74 N = EO#) Basophils # (Auto) (test code = 0.08 x10 3/uL 0.00-0.21 N BA#) nRBC Abs (test code = NRBCA) 0 nRBC Pct (test code = NRBCP) 0 % Basic Metabolic [id number] 08:00:00 Test Item Value Reference Range Interpretation Comments SODIUM (test code = 136.0 mmol/L 136.0-145.0 N NA) Potassium,K (test 4.6 mmol/L 3.0-5.1 N code = K) Chloride (test code 104 mmol/L 98-107 N = CL) Carbon Dioxide (test 27 mmol/L 20-31 N code = CO2) Anion Gap (test code 5 mmol/L 5-15 N = GAP) Blood Urea Nitrogen 13 mg/dL 9-23 N (test code = BUN) Creatinine (test 1.09 mg/dL 0.55-1.02 H code = CREATT) Creatinine Clr Calc 74.44 mL/min Pharmacy (test code = CRCLPHA) Estimated Glomerular 84 See_Comment L Reporte d eGFR is Filt Rate (test code based o n the CKD-EPI = EGFR.XX) 2020 equation thatdoes not us e a race coefficien t. Additional information can be found at:[email or web address]_t cb_egf r_summary_flyer 5.pdf (kidney.org) [Automated mess age] The system [employer] generated this result transmitted ref erence range: >=90 ml/min/1.73m2. The reference range was not used to int erpret this result as normal/abnormal . BUN/Creatinine Ratio 12 ratio 10-20 N (test code = BCRATIO) Glucose (test code = 316 mg/dL 74-106 H GLU) Osmolality,Calculate 293.6 d (test code = OSMOC) Calcium (test code = 8.9 mg/dL 8.3-10.6 N CA) Glucose [id number] 07:52:00 Test Item Value Reference Range Interpretation Comments Glucose Fingerstick 291 mg/dL 70-115 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 Abrahan Coronado (test code = WGLUC) Tony y RN or MD Glucose [id number] 20:21:00 Test Item Value Reference Range Interpretation Comments Glucose Fingerstick 244 mg/dL 70-115 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 Juarez (test code = WGLUC) Dillon michelle RN or MD Glucose [id number] 19:54:00 Test Item Value Reference Range Interpretation Comments Glucose Fingerstick 262 mg/dL 70-115 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 Rupinder (test code = WGLUC) Frederick e Glucose [id number] 17:38:00 Test Item Value Reference Range Interpretation Comments Glucose Fingerstick 349 mg/dL 70-115 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 Uzma Suzan (test code = WGLUC) Troponin I High [id number] 12:25:00 Test Item Value Reference Range Interpretation Comments Troponin I High Sensitivity (test < 3 ng/L 0-45 N code = TROPHS) Glucose [id number] 11:23:00 Test Item Value Reference Range Interpretation Comments Glucose Fingerstick (test 98 mg/dL 70-115 OP MARY Mares code = WGLUC) Glucose [id number] 07:41:00 Test Item Value Reference Range Interpretation Comments Glucose Fingerstick 227 mg/dL 70-115 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 Uzma Suzan (test code = WGLUC) Glucose [id number] 22:17:00 Test Item Value Reference Range Interpretation Comments Glucose Fingerstick 127 mg/dL 70-115 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 Columba Palomino (test code = WGLUC) Rosi blair RN or MD Glucose [id number] 15:58:00 Test Item Value Reference Range Interpretation Comments Glucose Fingerstick 296 mg/dL 70-115 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 (test code = WGLUC) SAM Glucose [id number] 11:57:00 Test Item Value Reference Range Interpretation Comments Glucose Fingerstick 76 mg/dL 70-115 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 (test code = WGLUC) SAM Glucose [id number] 11:13:00 Test Item Value Reference Range Interpretation Comments Glucose Fingerstick 58 mg/dL 70-115 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 (test code = WGLUC) MARLY meyer RN or Glucose Qobjcauhlly5028-04-07 07:05:00 Test Item Value Reference Range Interpretation Comments Glucose Fingerstick 139 mg/dL 70-115 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 (test code = WGLUC) SAM Complete Blood Count Auto [id number] 06:02:00 Test Item Value Reference Range Interpretation Comments White Blood Count (test code = 6.9 x10 3/uL 4.4-10.5 N WBCT) Red Blood Count (test code = 4.13 x10 6/uL 4.10-5.70 N RBC) Hemoglobin (test code = HGBT) 12.5 g/dL 13.4-17.4 L Hematocrit (test code = HCTT) 37.7 % 38.7-52.0 L Mean Corpuscular Volume (test 91.30 fL 80.00-100.00 N code = MCV) Mean Corpuscular Hemoglobin 30.3 pg 27.0-32.5 N (test code = MCH) Mean Corpuscular HGB Conc (test 33.20 g/dL 32.00-37.50 N code = MCHC) RDW Coefficient of Variation 13.2 % 11.5-14.5 N (test code = RDWCV) Platelet Count (test code = 281 x10 3/uL 140.0-440.0 N PLTT) Mean Platelet Volume (test code 9.9 fL = MPV) Immature Granulocytes % (Auto) 0.3 % 0.0-5.0 N (test code = IMMGRAN%) Neutrophils % (Auto) (test code 47.8 % 36.0-70.0 N = NE%) Lymphocytes % (Auto) (test code 33.6 % 12.0-44.0 N = LY%) Monocytes % (Auto) (test code = 8.9 % 0.0-11.0 N MO%) Eosinophils % (Auto) (test code 7.9 % 0.0-7.0 H = EO%) Basophils % (Auto) (test code = 1.5 % 0.0-2.0 N BA%) Immature Granulocytes # (Auto) 0.02 x10 3/uL (test code = IMMGRAN#) Neutrophils # (Auto) (test code 3.3 x10 3/uL 1.6-7.4 N = NE#) Lymphocytes # (Auto) (test code 2.31 x10 3/uL 0.50-4.60 N = LY#) Monocytes # (Auto) (test code = 0.61 x10 3/uL 0.00-1.20 N MO#) Eosinophils # (Auto) (test code 0.54 x10 3/uL 0.00-0.74 N = EO#) Basophils # (Auto) (test code = 0.10 x10 3/uL 0.00-0.21 N BA#) nRBC Abs (test code = NRBCA) 0 nRBC Pct (test code = NRBCP) 0 % Comprehensive Metabolic [id number] 06:02:00 Test Item Value Reference Range Interpretation Comments SODIUM (test code = NA) 141.0 mmol/L 136.0-145.0 N Potassium,K (test code = 4.2 mmol/L 3.0-5.1 N K) Chloride (test code = 108 mmol/L 98-107 H CL) Carbon Dioxide (test 26 mmol/L 20-31 N code = CO2) Anion Gap (test code = 7 mmol/L 5-15 N GAP) Blood Urea Nitrogen 11 mg/dL 9-23 N (test code = BUN) Creatinine (test code = 0.91 mg/dL 0.55-1.02 N CREATT) Creatinine Clr Calc 89.17 mL/min Pharmacy (test code = CRCLPHA) Estimated Glomerular 104 See_Comment Reporte d eGFR is Filt Rate (test code = based on the EGFR.XX) CKD-EPI 2021 equation thatdo es not use a race coefficient. Additional information can be found at:[id number] [email or web address] karin 5.pdf ([email or web address].o rg) [Automated message] The system which generated this result transmit jay reference range : >=90 ml/min/1.73m2. The reference range was not used to interpret this result as normal/abnormal . BUN/Creatinine Ratio 12 ratio 10-20 N (test code = BCRATIO) Glucose (test code = 122 mg/dL 74-106 H GLU) Osmolality,Calculated 291.9 (test code = OSMOC) Calcium (test code = CA) 8.8 mg/dL 8.3-10.6 N Bilirubin,Total (test 0.7 mg/dL 0.2-1.1 N code = BILIT) Aspartate Amino 16 U/L 0-34 N Transferase (test code = AST) Alanine Aminotransferase 15 U/L 10-49 N (test code = ALT) Total Protein (test code 6.7 g/dL 5.7-8.2 N = TP) Albumin Level (test code 4.0 g/dL 3.2-4.8 N = ALB) Globulin (test code = 2.7 mg/dL 2.3-3.5 N GLOB) Albumin/Globulin Ratio 1.5 ratio 0.8-2.0 N (test code = AGRATIO) Alkaline Phosphatase 60 U/L 46-116 N (test code = ALP) [id number] 06:02:00 Test Item Value Reference Range Interpretation Comments Phosphorous (test code = PHOS) 4.4 mg/dL 2.4-5.9 N [id number] 06:02:00 Test Item Value Reference Range Interpretation Comments Magnesium (test code = MG) 1.8 mg/dL 1.6-2.6 N Lipid [id number] 06:02:00 Test Item Value Reference Range Interpretation Comments Triglycerides (test code 59 mg/dL 9-200 N = TRIG) Cholesterol (test code = 144 mg/dL 0-200 N CHOL) LDL 98 mg/dL 0-130 N LDL (mg/dL)Opti mal Cholesterol,Calculated <100N ear Optimal (test code = LDLC) 100-129Bo rderline High 130-159Hig h 160-189Very Hig h >=190 VLDL CHOLESTEROL (test 12 mg/dL code = VLDL) HDL Cholesterol (test 34 mg/dL 40-60 L code = HDL) LDL/HDL Ratio (test code 3 = LDLHDL) Chol/HDL Ratio (test code 4.2 ratio 0.0-5.0 N = CHLHDL) Hemoglobin [id number] 06:02:00 Test Item Value Reference Range Interpretation Comments Hemoglobin A1C (test code = < 2.4 % 4.0-5.8 L HGBA1C.XX) Drug Screen,[id number] 06:02:00 Test Item Value Reference Range Interpretation Comments PCP Phencyclidine Screen,Urine (test Negative Negative code = PCPU) Amphetamine Screen,Urine (test code Negative Negative = AMPU) Methadone Screen,Urine (test code = Negative Negative METHU) Opiate Screen,Urine (test code = Negative Negative UOPIS) Barbituates Screen,Urine (test code Negative Negative = BARBU) Benzodiazepines Screen,Urine (test Negative Negative code = UBENZS) Cocaine Screen,Urine (test code = Negative Negative [facility]) Cannabinoid Screen,Urine (test code Negative Negative = UTHCS) Propoxyphene Screen, Urine (test Negative Negative code = UPROP) B-Type Natriuretic [id number] 06:02:00 Test Item Value Reference Range Interpretation Comments B-Type Natriuretic Peptide (test 20.6 pg/mL 0.0-99.9 N code = BNP) ADD ON TESTTroponin I High [id number] 02:46:00 Test Item Value Reference Range Interpretation Comments Troponin I High Sensitivity (test < 3 ng/L 0-45 N code = TROPHS) Complete Blood Count Auto [id number] 22:59:00 Test Item Value Reference Range Interpretation Comments White Blood Count (test code = 7.7 x10 3/uL 4.4-10.5 N WBCT) Red Blood Count (test code = 4.42 x10 6/uL 4.10-5.70 N RBC) Hemoglobin (test code = HGBT) 13.4 g/dL 13.4-17.4 N Hematocrit (test code = HCTT) 40.4 % 38.7-52.0 N Mean Corpuscular Volume (test 91.40 fL 80.00-100.00 N code = MCV) Mean Corpuscular Hemoglobin 30.3 pg 27.0-32.5 N (test code = MCH) Mean Corpuscular HGB Conc (test 33.20 g/dL 32.00-37.50 N code = MCHC) RDW Coefficient of Variation 13.3 % 11.5-14.5 N (test code = RDWCV) Platelet Count (test code = 318 x10 3/uL 140.0-440.0 N PLTT) Mean Platelet Volume (test code 9.9 fL = MPV) Immature Granulocytes % (Auto) 0.4 % 0.0-5.0 N (test code = IMMGRAN%) Neutrophils % (Auto) (test code 60.3 % 36.0-70.0 N = NE%) Lymphocytes % (Auto) (test code 24.6 % 12.0-44.0 N = LY%) Monocytes % (Auto) (test code = 7.9 % 0.0-11.0 N MO%) Eosinophils % (Auto) (test code 5.4 % 0.0-7.0 N = EO%) Basophils % (Auto) (test code = 1.4 % 0.0-2.0 N BA%) Immature Granulocytes # (Auto) 0.03 x10 3/uL (test code = IMMGRAN#) Neutrophils # (Auto) (test code 4.7 x10 3/uL 1.6-7.4 N = NE#) Lymphocytes # (Auto) (test code 1.90 x10 3/uL 0.50-4.60 N = LY#) Monocytes # (Auto) (test code = 0.61 x10 3/uL 0.00-1.20 N MO#) Eosinophils # (Auto) (test code 0.42 x10 3/uL 0.00-0.74 N = EO#) Basophils # (Auto) (test code = 0.11 x10 3/uL 0.00-0.21 N BA#) nRBC Abs (test code = NRBCA) 0 nRBC Pct (test code = NRBCP) 0 % Comprehensive Metabolic [id number] 22:59:00 Test Item Value Reference Range Interpretation Comments SODIUM (test code = NA) 141.0 mmol/L 136.0-145.0 N Potassium,K (test code = 4.4 mmol/L 3.0-5.1 N K) Chloride (test code = 106 mmol/L 98-107 N CL) Carbon Dioxide (test 27 mmol/L 20-31 N code = CO2) Anion Gap (test code = 8 mmol/L 5-15 N GAP) Blood Urea Nitrogen 11 mg/dL 9-23 N (test code = BUN) Creatinine (test code = 0.98 mg/dL 0.55-1.02 N CREATT) Creatinine Clr Calc 82.80 mL/min Pharmacy (test code = CRCLPHA) Estimated Glomerular 95 See_Comment Reporte d eGFR is Filt Rate (test code = based on the EGFR.XX) CKD-EPI 202 equation thatdo es not use a race coefficient. Additional information can be found at:[id number]_w cb_ egfr_summary_fl karin 5.pdf (kidney.o rg) [Automated message] The system which generated this result transmit jay reference range : >=90 ml/min/1.73m2. The reference range was not used to interpret this result as normal/abnormal . BUN/Creatinine Ratio 11 ratio 10-20 N (test code = BCRATIO) Glucose (test code = 174 mg/dL 74-106 H GLU) Osmolality,Calculated 294.9 (test code = OSMOC) Calcium (test code = CA) 9.7 mg/dL 8.3-10.6 N Bilirubin,Total (test 0.6 mg/dL 0.2-1.1 N code = BILIT) Aspartate Amino 20 U/L 0-34 N Transferase (test code = AST) Alanine Aminotransferase 18 U/L 10-49 N (test code = ALT) Total Protein (test code 7.8 g/dL 5.7-8.2 N = TP) Albumin Level (test code 4.6 g/dL 3.2-4.8 N = ALB) Globulin (test code = 3.2 mg/dL 2.3-3.5 N GLOB) Albumin/Globulin Ratio 1.4 ratio 0.8-2.0 N (test code = AGRATIO) Alkaline Phosphatase 68 U/L 46-116 N (test code = ALP) [id number] 22:59:00 Test Item Value Reference Range Interpretation Comments Lipase (test code = LIP) 54 U/L 12-53 H Troponin I High [id number] 22:59:00 Test Item Value Reference Range Interpretation Comments Troponin I High Sensitivity (test < 3 ng/L 0-45 N code = TROPHS) UA, Urinalysis Rflx Cult/[id number] 22:00:00 Test Item Value Reference Range Interpretation Comments Color,Urine (test code = UCOL) Yellow Yellow Clarity,Urine (test code = Clear Clear UCLAR) Ph, Urine (test code = UPH) 6.5 5.0-9.0 N Specific [place],Urine (test 1.015 1.005-1.030 N code = USG) Blood,Urine (test code = UBLD) Negative mg/dL Negative Protein,Urine (test code = 30 mg/dL Negative A UPRO) Glucose,Urine (UA) (test code Negative mg/dL Negative = UGLU) Ketones,Urine (test code = Trace mg/dL Negative A UKET) Nitrate,Urine (test code = Negative Negative UNIT) Bilirubin,Urine (test code = Negative mg/dL Negative UBIL) Urobilinogen,Urine (test code 1.0 E.U./dL Normal = UURO) Leukocyte Esterase,Urine (test Negative mg/dL Negative code = ULEU) UF REFLEXUF REFLEXUrine [id number] 22:00:00 Test Item Value Reference Range Interpretation Comments RBC,Urine (test code = URBCUF) None Seen /HPF 0-2 WBC,Urine (test code = UWBCUF) None Seen /HPF 0-5 Epithelial Cell,Urine (test None Seen /HPF 0-5 code = UECUF) Casts,Urine (test code = None Seen /LPF None Seen UCASTUF) Bacteria,Urine (test code = None Seen /hpf None Seen UBACTUF) UF REFLEXUF [id number] 10:21:00 Test Item Value Reference Range Interpretation Comments GLUBED (test code = 69 mg/dL 74-106 L Performe d by certified GLUBED) 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 GLUBED) by nursing staff.Performed by certified opera tor at [facility] [id number] 10:21:00 Test Item Value Reference Range Interpretation Comments GLUBED (test code = 34 mg/dL 74-106 LL Test per formed as P.O.C. GLUBED) by nursing staff.Performed by [facility] No tified~ HIV 1+2 Ab+HIV1 p24 Ag SerPl Ql [id number] 04:46:28 Test Item Value Reference Range Interpretation Comments HIV 1+2 Ab+HIV1 p24 Ag SerPl Ql IA NEGATIVE Negative (test code = 99391-1) QTZMSFB-PqQ-7 RNA Resp Ql RUDY+[id number] 20:10:39 Test Item Value Reference Range Interpretation Comments Hospitalized? (test No code = 92855-5) ICU? (test code = No 62283-8) Symptomatic as defined No by CDC? (test code = 89268-9) Employed in No Healthcare? (test code = 67402-4) Resident in a No congregate care setting (including nursing homes, residential care for people with intellectual and developmental disabilities, psychiatric treatment facilities, group homes, board and care homes, homeless fpc, foster care or other): (test code = 39855-2) SARS-CoV-2 RNA Resp Ql NOT DETECTED Not Detected The 2 019 novel RUDY+probe (test code = coron avirus 54457-3) (SARS-CoV-2) ta rget nucleic acids a re not detected. The AMER[employer] Thi SARS-CoV-2/Influenza is a real-time RT-PCR based diagnostic test intended for the qualitative detection of SARS-CoV-2 viral RNA in a nasopharyngeal swab during acute phase of infection. This test was developed and its performance characteristics have been determined by the [facility]. This test has not been cleared or approved by the FDA. This test system has been authorized by the FDA under an Emergency Use Authorization (EUA). This test has been validated in accordance with the FDA's Guidance document "Policy for Coronavirus Disease-2019 Tests During the Public Health Emergency" (Revised September 2019) and is used for clinical purposes. It should not be regarded as investigational or for researchPositive results are indicative of the presence of the identified virus, but do not rule out bacterial infection or co-infection with other pathogens not detected by the test. Clinical correlation with patient history and other diagnostic information is necessary to determine patient infection status. Negative results do not preclude SARS-CoV-2 or Influenza A and B and should not be used as the sole basis for treatment or other patient management decisions. Negative results must be combined with clinical observations, patient history, and/or epidemiological information. If co-infection with influenza A or influenza B virus is suspected in samples with a positive SARS-CoV-2 result, please contact the laboratory so that the sample can be re-tested with a different instrument, if influenza virus detection would change clinical management.This laboratory is certified under the Clinical Laboratory Improvement Amendments (CLIA) as qualified to perform high complexity clinical laboratory testing.[id number] 21:39:00 Test Item Value Reference Range Interpretation Comments GLUBED (test code = 277 mg/dL 74-106 H Performe d by certified GLUBED) telecine operator at [facility] - CT ABD PELVIS W/[id number] 14:46:00 [facility] : 1975 Sex: M Name: DELILAH LAZAR [facility] : 1975 Age/S: 47 / M [address] Unit #: [id number] Loc: [address] [address] Phys: CristianQuinn De Oliveira DO Acct: [id number] Dis Date: Status: REGER PHONE #: [phone] Exam Date: 09/28/2022 [facility] FAX #: [phone] Reason: abd pain EXAMS: CPT CODE: [id number] CT ABD PELVIS W/CONT 87569 EXAM: CT ABDOMEN/PELVIS WITH CONTRAST HISTORY: Pain TECHNIQUE: Helical imaging was performed diaphragm through the symphysis with multiplanar reformations obtained. IV CONTRAST: 100cc Omnipaque 300 GI CONTRAST: No DOSE: CT imaging performed at this location utilizes radiation dose optimization technique which includes one or more of the followin) Automated exposure control; 2) Adjustment of the mA and/or kV according to patient's size; 3) Use of iterative reconstruction techniques COMPARISON: None FINDINGS: Unless otherwise specified, incidental findings do not require dedicated imaging follow-up. LOWER CHEST: The visualized lung bases are clear. Visualized heart is unremarkable. SOLID ORGANS: No focal liver lesions. No intra or extrahepatic biliary ductal dilation. Gallstones. The spleen, pancreas, and adrenal glands are normal in appearance. Both kidneys demonstrate normal corticomedullary phase of enhancement. No renal/ureteral calculus, hydronephrosis, mass, or cyst is apparent. BOWEL: The small bowel and colon are normal in caliber without wall thickening. Normal appendix. No signs of obstruction.] PERITONEUM: No free intraperitoneal fluidor air. RETROPERITONEUM: Normal caliber of the abdominal aorta is noted. No lymphadenopathy. PELVIS: The visualized urinary bladder wall is normal thickness. Organs of reproduction are unremarkable. MUSCULOSKELETAL: No acute osseous abnormality is seen. No destructive lytic or blastic osseous lesion is noted. PAGE 1 Signed Report (CONTINUED) Name: DELILAH LAZAR [facility] : 1975 Age/S: 47 / M [address] [facility] Unit #: [id number] Loc: [place] [address] Phys: Quinn Foster DO Acct: [id number] Dis Date: Status: REG ER PHONE #: [phone] Exam Date: 09/28/2022 1436 FAX #: Reason: abd pain EXAMS: CPT CODE: [id number] CT ABD PELVIS W/CONT 46710 (Continued) SOFT TISSUES: No ventral abdominal hernia. No anasarca. IMPRESSION: No acute abnormality of the abdomen or pelvis. SL: [id number] at 1446 Reported and signed by: Tejal Burt M.D. CC: Quinn Foster DO Technologist:Tor Mckenna RT(R),(MR),(CT) CTDI: DLP: Trnscb Date/Time: 09/28/2022 (1446) [email or web address] Orig Print D/T: S: 09/28/2022 (2779) PAGE 2 Signed VmrefiNOVIZMAF-[id number] 14:13:00 Test Item Value Reference Range Interpretation Comments TROPONIN-HS (test <4.0 pg/mL 0-45 N CAUTION: U nits of the code = TROPI) current test m ethodology (pg/mL)differ f rom the prior test meth odology (ng/mL) by a fa ctorof 1000. BASIC METABOLIC [id number] 14:13:00 Test Item Value Reference Range Interpretation Comments SODIUM (test code = 134 mmol/L 136-145 L NA) POTASSIUM (test 4.9 mmol/L 3.5-5.1 N code = K) CHLORIDE (test code 104.0 mmol/L 98-107 N = CL) CARBON DIOXIDE 25.0 mmol/L 21-32 N (test code = CO2) ANION GAP (test 9.9 10-20 L code = GAP) GLUCOSE (test code 456 mg/dL 74-106 H = GLU) BLOOD UREA NITROGEN 15 mg/dL 7-18 N (test code = BUN) GLOMERULAR > 60 mL/min See_Comment The Glomerular FILTRATION RATE Filtration R ate is a (test code = GFR) calculated parameterbased on serum Creatinin e, patient age and sex. GFR valuesless than 60 mL/min/1.73 squ are meters are judy cative ofChronic Kidne y Disease. Values less than 15 mL/min/1.73squa re meters indicate Kidney failure. The calculation for GFR is based on the CK D-EPI (2020) calculat ion. This formulais race indifferent and is the recommended for jenny for GFRby the N ational Kidney Foundati on for Adults.The GFR will not calculate i f the sex is unknown or if thepatient's ag e is <18 years. [Aut omated message] The sy stem which generated this result transmit jay reference range : >=60. The reference r ambrosio was not used to interpret this result as normal/abnor mal. CREATININE (test 1.00 mg/dL 0.7-1.3 N code = CREAT) BUN/CREATININE 15.8 10-20 N RATIO (test code = BUN/CREA) CALCIUM (test code 8.5 mg/dL 8.5-10.1 N = CA) HEPATIC FUNCTION [id number] 14:13:00 Test Item Value Reference Range Interpretation Comments TOTAL PROTEIN (test 6.9 gram/dL 6.4-8.2 N code = PROT) ALBUMIN (test code = 3.4 g/dL 3.4-5.0 N ALB) GLOBULIN (test code = 3.5 gram/dL 2.7-4.2 N GLOB) ALBUMIN/GLOBULIN RATIO 1.0 0.75-1.50 N (test code = A/G) BILIRUBIN TOTAL (test 0.80 mg/dL 0.0-1.0 N code = BILT) BILIRUBIN DIRECT (test 0.20 mg/dL 0.0-0.20 N code = BILD) SGOT/AST (test code = 17 IUnit/L 15-37 N AST) SGPT/ALT (test code = 21 IUnit/L 12-78 N ALT) ALKALINE PHOSPHATASE 113 IUnit/L 45-117 N Note change in TOTAL (test code = reference range due ALKP) to change in reagent. [id number] 14:13:00 Test Item Value Reference Range Interpretation Comments LIPASE (test code = LIP) 24 U/L 12-57 N URINALYSIS [id number] 13:53:00 Test Item Value Reference Range Interpretation Comments UA COLOR (test code = COLORLESS YELLOW A COLU) UA APPEARANCE (test CLEAR CLEAR IS THE S AMPLE code = APPU) FROM ER OR L&D? Y IF THE ANSWER I S NO,PLEASE DOCUMENT TWO RN SIGNATURES HERE - by [id number] 09/28/22 1523 UA GLUCOSE DIPSTICK >1000 (4+) mg/dL NEGATIVE (test code = DGLUU) UA BILIRUBIN DIPSTICK NEGATIVE mg/dL NEGATIVE (test code = BILU) UA KETONE DIPSTICK NEGATIVE mg/dL NEGATIVE (test code = KETU) UA SPECIFIC GRAVITY 1.020 1.001-1.035 (test code = SGU) UA BLOOD DIPSTICK Negative mg/dL NEGATIVE (test code = CALVIN) UA PH DIPSTICK (test 6.0 5.0-8.0 code = YUNIER) UA PROTEIN DIPSTICK NEGATIVE mg/dL NEGATIVE (test code = PROU) UA UROBILINIOGEN Normal mg/dL NEGATIVE DIPSTICK (test code = URO) UA NITRITE DIPSTICK NEGATIVE NEGATIVE (test code = MAINE) UA LEUKOCYTE ESTERASE NEGATIVE Ashlie/uL NEGATIVE W REFLEX (test code = LEUUR) UA WBC (test code = 0-5 per HPF 0-5 WBCU) UA RBC (test code = 0-2 #/HPF 0-5 RBCU) UA MUCUS (test code = FEW #/LPF FEW MUCU) Urine Source? Clean CatchCBC W/O [id number] 13:49:00 Test Item Value Reference Range Interpretation Comments WHITE BLOOD CELL (test code = 6.5 K/mm3 4.5-12.5 N WBC) RED BLOOD CELL (test code = 4.26 mill/mm3 4.0-5.8 N RBC) HEMOGLOBIN (test code = HGB) 12.5 gram/dL 13.0-17.5 L HEMATOCRIT (test code = HCT) 37.4 % 42.0-52.0 L MEAN CELL VOLUME (test code = 87.8 fL 80-98 N MCV) MEAN CELL HGB (test code = MCH) 29.3 picogram 27.0-33.0 N MEAN CELL HGB CONCETRATION 33.4 gram/dL 33.0-36.0 N (test code = MCHC) RED CELL DISTRIBUTION WIDTH 14.3 % 11.6-16.2 N (test code = RDW) PLATELET COUNT (test code = 297 K/mm3 150-450 N PLT) MEAN PLATELET VOLUME (test code 10.4 fL 6.7-11.0 N = MPV) - XR CHEST 1 [id number] 13:11:00 [facility]Name: DELILAH LAZAR : 1975 Sex: M FAX: Quinn Foster DO [place]: B St: REG Name: DELILAH LAZAR [facility] : 1975 Age/S: 47/M [address] Unit #: [id number] Loc: [place] [address] Phys: Quinn Foster DO Acct: [id number] Dis Date: Status: REG ER PHONE #: [phone] Exam Date: 09/28/2022 1238 FAX #: [phone] Reason: ABDOMINAL PAIN EXAMS: CPT CODE: [id number] XR CHEST 1 V 99184 REASON FOR EXAM: ABDOMINAL PAIN Exam Order Date: 09/28/2022 12:18 PM Ordering M.D.: Quinn Foster DO PROCEDURE: - XR CHEST 1 V COMPARISON: None FINDINGS: The lungs are clear. There is no pleural effusion or pneumothorax. Pulmonary vascularity is within normal limits. Cardiomediastinal silhouette is normal in size for technique. Themediastinal contours are within normal limits. Musculoskeletal structures are within normal limits.The visualized upper abdomen is within normal limits. IMPRESSION: No acute cardiopulmonary process. Location: [facility] at 1311 Reported and signedby: Devan Guadalupe MD CC: Quinn Foster DO Technologist: MICA DÍAZ Trnscrd Date/Time/By: 09/28/2022 (1311) : By: [email or web address] Orig Print D/T: S: 09/28/2022 (3782) PAGE 1 Signed ReportPOCT GLUCOSE (AUTOMATED)2022-09-08 15:11:23 Test Item Value Reference Range Interpretation Comments POCT GLU (test code = 7450052421) 162 mg/dL 70-110 H Lab Interpretation (test code = Abnormal 18409-5[facility] 12:59:17 Test Item Value Reference Range Interpretation Comments POCT GLU (test code = 9448725718) 400 mg/dL 70-110 H Lab Interpretation (test code = Abnormal 54294-8) [facility] GLUCOSE (AUTOMATED)2022-09-08 02:03:00 Test Item Value Reference Range Interpretation Comments POCT GLU (test code = 9003204815) 128 mg/dL 70-110 H Lab Interpretation (test code = Abnormal 78174-6) [facility] GLUCOSE (AUTOMATED)2022-09-07 21:51:08 Test Item Value Reference Range Interpretation Comments POCT GLU (test code = 247 mg/dL 70-110 H Notifi ed Provider [id number]) Lab Interpretation (test Abnormal code = 49274-2) [facility] GLUCOSE (AUTOMATED)2022-09-07 16:48:19 Test Item Value Reference Range Interpretation Comments POCT GLU (test code = 2165985247) 206 mg/dL 70-110 H Lab Interpretation (test code = Abnormal 46114-1) [facility] GLUCOSE (AUTOMATED)2022-09-07 12:50:08 Test Item Value Reference Range Interpretation Comments POCT GLU (test code = 8731313519) 207 mg/dL 70-110 H Lab Interpretation (test code = Abnormal 17200-3) [facility] GLUCOSE (AUTOMATED)2022-09-07 08:15:42 Test Item Value Reference Range Interpretation Comments POCT GLU (test code = 1288027484) 196 mg/dL 70-110 H Lab Interpretation (test code = Abnormal 97308-7) [facility]07 04:54:18 Test Item Value Reference Range Interpretation Comments POCT GLU (test code = 3199743438) 87 mg/dL 70-110 Lab Interpretation (test code = Normal 11073-6) [facility] 04:18:39 Test Item Value Reference Range Interpretation Comments POCT GLU (test code = 3461283487) 55 mg/dL 70-110 L Lab Interpretation (test code = Abnormal 44412-9) [facility] GLUCOSE (AUTOMATED)2022-09-07 00:58:35 Test Item Value Reference Range Interpretation Comments POCT GLU (test code = 0301190709) 318 mg/dL 70-110 H Lab Interpretation (test code = Abnormal 42697-4) [facility] 20:09:25 Test Item Value Reference Range Interpretation Comments POCT GLU (test code = 5760500868) 144 mg/dL 70-110 H Lab Interpretation (test code = Abnormal 36845-3) [facility] 19:48:54 Test Item Value Reference Range Interpretation Comments Height (test code = in 1315626369) Weight (test code = lbs 7764754276) Systolic BP (test code = mmHg 1564804273) Diastolic BP (test code mmHg = 1737199398) Heart Rate (test code = bpm 0330582369) EF(Teich) (test code = 63.50 % 5028763473) LVIDD (test code = 4.40 cm 9627930013) LVIDS (test code = 2.90 cm 9081607714) Left Ventricular End 32.3 mL Systolic Volume by Teichholz Method (test code = 3173033) Left Ventricular End 88.3 mL Diastolic Volume by Teichholz Method (test code = 0932306) IVS (test code = 1.03 cm 7125919106) LVPWD (test code = 1.02 cm 4323510373) FS (test code = 34 % 7174239963) BSA (test code = 1.78 m2 2420161618) PW (test code = 1.02 cm 0.6-1.8 4031965031) EF - 2D (test code = 63.50 % 82907043) Interventricular Septum 1.03 cm Diastolic Thickness by 2D (test code = 0301594) LAV(MOD-sp4) (test code 45.10 mL = 1660075994) LA Volume Index (BP) 28.7 mL/m2 (test code = 3823061665) LA volume (BP) (test 50.9 mL code = 2110621843) LAV(MOD-sp2) (test code 46.70 mL = 2673502100) A2C EF (test code = 61.10 % 0679982781) EF(sp2-el) (test code = 60.20 % 0844577257) SV(MOD-sp2) (test code = 32.80 mL 8022593254) LV Diastolic Volume (BP) 55.5 mL (test code = 5752540421) A4C EF (test code = 67.80 % 4781483840) EF(MOD-bp) (test code = 64.80 % 1200760755) EF(sp4-el) (test code = 69.10 % 3604172893) LV Systolic Volume (BP) 19.5 mL (test code = 1529126857) SV(MOD-bp) (test code = 36.00 mL 3048503803) SV(MOD-sp4) (test code = 38.50 mL 9108113409) SV(sp4-el) (test code = 40.30 mL 0681810219) EF (test code = 6368531960) Left Ventricular Stroke 36.0 mL Volume by 2-D Biplane-MOD (test code = 4252993) LV Diastolic Volume 31.2 mL/m2 Index (BP) (test code = 8097860644) LV Systolic Volume Index 11.0 mL/m2 (BP) (test code = 0311677722) Radiology Study observation (narrative) (test code = 18478-8) CLIFF (test code = CLIFF) ?Left?Ventricle: Left [...] apical, parasternal and subcostal views were obtained. [facility] GLUCOSE (AUTOMATED)2022-05-24 18:33:49 Test Item Value Reference Range Interpretation Comments POCT GLU (test code = 7217695408) 73 mg/dL 70-110 Lab Interpretation (test code = Normal 52124-2) [facility] GLUCOSE (AUTOMATED)2022-05-24 18:33:49 Test Item Value Reference Range Interpretation Comments POCT GLU (test code = 4842767681) 66 mg/dL 70-110 L Lab Interpretation (test code = Abnormal 14015-6) [facility] GLUCOSE (AUTOMATED)2022-05-24 18:33:49 Test Item Value Reference Range Interpretation Comments POCT GLU (test code = 6403406060) 58 mg/dL 70-110 L Lab Interpretation (test code = Abnormal 04492-0) [facility] GLUCOSE (AUTOMATED)2022-05-24 15:03:34 Test Item Value Reference Range Interpretation Comments POCT GLU (test code = 2858770444) 256 mg/dL 70-110 H Lab Interpretation (test code = Abnormal 52919-3) [facility] 06:31:44 Test Item Value Reference Range Interpretation Comments HGB A1C (test code = 8.1 % 4.0-5.7 H 4548-4) CLIFF (test code = CLIFF) Reference RangesNormal: <5.7%Prediabetes: 5.7 - 6.4%Diabetes: > 6.5% Lab Interpretation (test Abnormal code = 96988-8) [facility] [id number] 02:31:08 Test Item Value Reference Interpretation Comments Range TROPONIN I (test 0.055 ng/mL See_Comment H [Automated code = 7756761686) message] The system which generated this result transmitted reference range : <=0.034. The reference range was not used to interpret this result as normal/abnormal . CLFIF (test code = Reference (Normal) CLIFF) Range [...] biotin. Lab Interpretation Abnormal (test code = 24175-9) [facility] [id number] 02:06:05 Test Item Value Reference Range Interpretation Comments APTT Patient (test code = See_Comment [ Automated message] 3173-2) The system [employer] generated this result transmitted ref erence range: 26 - 36 Seconds. The re ference range was not u sed to interpret this result as normal/abnor mal. Lab Interpretation (test Normal code = 22384-0) [facility] / [id number] 02:06:05 Test Item Value Reference Range Interpretation Comments PROTIME PATIENT (test See_Comment [Auto mated message] code = 5964-2) The system [employer] generated this result transmitted ref erence range: 10.1 - 1 2.6 Seconds. The re ference range was not u sed to interpret this result as normal/abnor mal. INR (test code = 6301-6) Nor mal INR <1.1; Warfarin Therap eutic range 2.0 to 3. 0 or 2.5 to 3.5, dep ending upon the indica tions. Lab Interpretation (test Normal code = 54665-5) [id number][facility]-24 01:57:43 Test Item Value Reference Range Interpretation Comments NA (test code = 140 mmol/L 135-145 0661579923) K (test code = 4.1 mmol/L 3.5-5.0 0791800999) CL (test code = 105 mmol/L 98-108 9639290439) CO2 TOTAL (test code = 26 mmol/L 23-31 2715637837) AGAP (test code = 2-16 1366436003) BUN (test code = 9 mg/dL 7-23 5802772970) GLUCOSE (test code = 146 mg/dL 70-110 H 4369537370) CREATININE (test code = 0.77 mg/dL 0.60-1.25 5624398758) TOTAL BILI (test code = 0.5 mg/dL 0.1-1.6 8452438148) CALCIUM (test code = 8.4 mg/dL 8.6-10.6 L 4537301752) T PROTEIN (test code = 7.4 g/dL 6.3-8.2 7321237392) ALBUMIN (test code = 4.0 g/dL 3.5-5.0 5663005435) ALK PHOS (test code = 118 U/L 34-122 1960595424) ALTv (test code = 15 U/L 5-50 1742-6) AST(SGOT) (test code = 25 U/L 13-40 6698519485) eGFR (test code = mL/min/1.73m2 8702859926) CLIFF (test code = CLIFF) Association of [...] tests). Lab Interpretation Abnormal (test code = 67607-1) [facility] Test Item Value Reference Range Interpretation Comments LIPASE (test code = 3385581674) 26 U/L 0-220 Lab Interpretation (test code = Normal 01059-2) [facility] [id number] 01:52:26 Test Item Value Reference Range Interpretation Comments WBC (test code = See_Comment [Automated 3390-2) message] The sy stem which generated this [...] RDW-SD (test code = 47.8 fL 38.5-51.6 66726-9) RDW-CV (test code = 14.4 % 12.1-15.4 788-0) PLT (test code = See_Comment H [Automated 777-3) message] The sy stem which generated this result transmitted reference range : 150 - 328 10*3/ ?L. The reference r ambrosio was not used to interpret this result as normal/abnormal . MPV (test code = 9.7 fL 9.8-13.0 L 06206-0) NRBC/100 WBC (test See_Comment [Automat ed code = 3577309010) message] The system which generated this result transmitted reference range : 0.0 - 10.0 /100 WBCs. The refer ence range was not u sed to interpret th is result as normal/abnormal . NRBC x10^3 (test code See_Comment [Auto mated = 1977542813) message] The s ystem which generated this result transmitted reference range : 10*3/?L. The reference range was not used to interpret this result as normal/abnormal . GRAN MAT (NEUT) % 63.7 % (test code = 770-8) IMM GRAN % (test code 0.50 % = 4883664124) LYMPH % (test code = 24.8 % 736-9) MONO % (test code = 8.6 % 5905-5) EOS % (test code = 1.1 % 713-8) BASO % (test code = 1.3 % 706-2) GRAN MAT x10^3(ANC) 6.10 10*3/uL 1.99-6.95 (test code = 6139135086) IMM GRAN x10^3 (test 0.05 10*3/uL 0.00-0.06 code = 8655513108) LYMPH x10^3 (test code 2.38 10*3/uL 1.09-3.23 = 731-0) MONO x10^3 (test code 0.82 10*3/uL 0.36-1.02 = 742-7) EOS x10^3 (test code = 0.11 10*3/uL 0.06-0.53 711-2) BASO x10^3 (test code 0.12 10*3/uL 0.01-0.09 H = 704-7) Lab Interpretation Abnormal (test code = 67445-8) [facility] GLUCOSE (AUTOMATED)2022-05-24 01:25:07 Test Item Value Reference Range Interpretation Comments POCT GLU (test code = 0427310788) 151 mg/dL 70-110 H Lab Interpretation (test code = Abnormal 66017-8) [facility] GLUCOSE (AUTOMATED)2022-05-07 19:05:03 Test Item Value Reference Range Interpretation Comments POCT GLU (test code = 5753307080) 202 mg/dL 70-110 H Lab Interpretation (test code = Abnormal 77003-2) [facility] GLUCOSE (AUTOMATED)2022-05-07 19:05:03 Test Item Value Reference Range Interpretation Comments POCT GLU (test code = 1601883634) 202 mg/dL 70-110 H Lab Interpretation (test code = Abnormal 43655-5) [facility] GLUCOSE (AUTOMATED)2022-05-07 14:57:00 Test Item Value Reference Range Interpretation Comments POCT GLU (test code = 4808320962) 388 mg/dL 70-110 H Lab Interpretation (test code = Abnormal 03212-5) [facility] GLUCOSE (AUTOMATED)2022-05-07 14:57:00 Test Item Value Reference Range Interpretation Comments POCT GLU (test code = 2736567859) 388 mg/dL 70-110 H Lab Interpretation (test code = Abnormal 65680-9) [facility] GLUCOSE (AUTOMATED)2022-05-07 10:14:38 Test Item Value Reference Range Interpretation Comments POCT GLU (test code = 8521527243) 258 mg/dL 70-110 H Lab Interpretation (test code = Abnormal 95538-9) [facility] GLUCOSE (AUTOMATED)2022-05-07 10:14:38 Test Item Value Reference Range Interpretation Comments POCT GLU (test code = 4772849572) 258 mg/dL 70-110 H Lab Interpretation (test code = Abnormal 68141-1) [facility] METABOLIC PANEL (NA, K, CL, CO2, GLUCOSE, BUN, CREATININE, CA)2022-05-07 09:09:31 Test Item Value Reference Range Interpretation Comments NA (test code = 131 mmol/L 135-145 L 5710392975) K (test code = 4.0 mmol/L 3.5-5.0 2391155336) CL (test code = 101 mmol/L 98-108 3597340279) CO2 TOTAL (test code = 22 mmol/L 23-31 L 3995689558) AGAP (test code = 2-16 7367659124) BUN (test code = 11 mg/dL 7-23 9131243683) GLUCOSE (test code = 411 mg/dL 70-110 H 5238411943) CREATININE (test code = 0.67 mg/dL 0.60-1.25 1099777755) CALCIUM (test code = 8.0 mg/dL 8.6-10.6 L 5371198086) eGFR (test code = mL/min/1.73m2 4009252723) CLIFF (test code = CLIFF) Association of [...] tests). Lab Interpretation Abnormal (test code = 83561-5) [facility]09:31 Test Item Value Reference Range Interpretation Comments MAGNESIUM (test code = 9441822738) 1.4 mg/dL 1.7-2.4 L Lab Interpretation (test code = Abnormal 88720-2) [facility] (NA, K, CL, CO2, GLUCOSE, BUN, CREATININE, CA)2022-05-07 09:09:31 Test Item Value Reference Range Interpretation Comments NA (test code = 131 mmol/L 135-145 L 0343188832) K (test code = 4.0 mmol/L 3.5-5.0 6747171641) CL (test code = 101 mmol/L 98-108 9523297812) CO2 TOTAL (test code = 22 mmol/L 23-31 L 2979367535) AGAP (test code = 2-16 2838487478) BUN (test code = 11 mg/dL 7-23 7653964529) GLUCOSE (test code = 411 mg/dL 70-110 H 4411446334) CREATININE (test code = 0.67 mg/dL 0.60-1.25 4892464356) CALCIUM (test code = 8.0 mg/dL 8.6-10.6 L 0073908997) eGFR (test code = mL/min/1.73m2 3647572435) CLIFF (test code = CLIFF) Association of [...] tests). Lab Interpretation Abnormal (test code = 46897-3) [facility]:09:31 Test Item Value Reference Range Interpretation Comments MAGNESIUM (test code = 5735817913) 1.4 mg/dL 1.7-2.4 L Lab Interpretation (test code = Abnormal 93869-9) [facility] WITH [id number] 08:08:44 Test Item Value Reference Range Interpretation [...] RDW-SD (test code = 44.6 fL 38.5-51.6 57457-1) RDW-CV (test code = 13.8 % 12.1-15.4 788-0) PLT (test code = See_Comment H [Automated 777-3) message] The sy stem which generated this result transmitted reference range : 150 - 328 10*3/ ?L. The reference r ambrosio was not used to interpret this result as normal/abnormal . MPV (test code = 9.5 fL 9.8-13.0 L 48008-4) NRBC/100 WBC (test See_Comment [Automat ed code = 7327274618) message] The system which generated this result transmitted reference range : 0.0 - 10.0 /100 WBCs. The refer ence range was not u sed to interpret th is result as normal/abnormal . NRBC x10^3 (test code See_Comment [Auto mated = 8554831989) message] The s ystem which generated this result transmitted reference range : 10*3/?L. The reference range was not used to interpret this result as normal/abnormal . GRAN MAT (NEUT) % 67.6 % (test code = 770-8) IMM GRAN % (test code 0.20 % = 8027165767) LYMPH % (test code = 20.2 % 736-9) MONO % (test code = 5.6 % 5905-5) EOS % (test code = 5.4 % 713-8) BASO % (test code = 1.0 % 706-2) GRAN MAT x10^3(ANC) 6.11 10*3/uL 1.99-6.95 (test code = 3789959085) IMM GRAN x10^3 (test 0.00-0.06 code = 5581958579) LYMPH x10^3 (test code 1.83 10*3/uL 1.09-3.23 = 731-0) MONO x10^3 (test code 0.51 10*3/uL 0.36-1.02 = 742-7) EOS x10^3 (test code = 0.49 10*3/uL 0.06-0.53 711-2) BASO x10^3 (test code 0.09 10*3/uL 0.01-0.09 = 704-7) Lab Interpretation Abnormal (test code = 23699-9) [facility] WITH [id number] 08:08:44 Test Item Value Reference Range Interpretation Comments WBC (test code = See_Comment [Automated 8190-2) message] The sy stem which generated this result transmitted reference range : 4.20 - 10.70 10*3/?L. The reference range was not used to interpret this result as normal/abnormal . RBC (test code = See_Comment L [Automated 592-8) message] The sy stem which generated this [...] RDW-SD (test code = 44.6 fL 38.5-51.6 31930-6) RDW-CV (test code = 13.8 % 12.1-15.4 788-0) PLT (test code = See_Comment H [Automated 777-3) message] The sy stem which generated this result transmitted reference range : 150 - 328 10*3/ ?L. The reference r ambrosio was not used to interpret this result as normal/abnormal . MPV (test code = 9.5 fL 9.8-13.0 L 17544-5) NRBC/100 WBC (test See_Comment [Automat ed code = 2806799206) message] The system which generated this result transmitted reference range : 0.0 - 10.0 /100 WBCs. The refer ence range was not u sed to interpret th is result as normal/abnormal . NRBC x10^3 (test code See_Comment [Auto mated = 1199451929) message] The s ystem which generated this result transmitted reference range : 10*3/?L. The reference range was not used to interpret this result as normal/abnormal . GRAN MAT (NEUT) % 67.6 % (test code = 770-8) IMM GRAN % (test code 0.20 % = 4760895692) LYMPH % (test code = 20.2 % 736-9) MONO % (test code = 5.6 % 5905-5) EOS % (test code = 5.4 % 713-8) BASO % (test code = 1.0 % 706-2) GRAN MAT x10^3(ANC) 6.11 10*3/uL 1.99-6.95 (test code = 7135754336) IMM GRAN x10^3 (test 0.00-0.06 code = 7281228216) LYMPH x10^3 (test code 1.83 10*3/uL 1.09-3.23 = 731-0) MONO x10^3 (test code 0.51 10*3/uL 0.36-1.02 = 742-7) EOS x10^3 (test code = 0.49 10*3/uL 0.06-0.53 711-2) BASO x10^3 (test code 0.09 10*3/uL 0.01-0.09 = 704-7) Lab Interpretation Abnormal (test code = 91009-2) [facility] GLUCOSE (AUTOMATED)2022-05-07 07:33:53 Test Item Value Reference Range Interpretation Comments POCT GLU (test code = 9632094958) 452 mg/dL 70-110 HH Lab Interpretation (test code = Abnormal 14312-6) [facility] GLUCOSE (AUTOMATED)2022-05-07 07:33:53 Test Item Value Reference Range Interpretation Comments POCT GLU (test code = 8470223213) 452 mg/dL 70-110 HH Lab Interpretation (test code = Abnormal 63863-3) [facility] GLUCOSE (AUTOMATED)2022-05-07 01:27:48 Test Item Value Reference Range Interpretation Comments POCT GLU (test code = 3103206255) 78 mg/dL 70-110 Lab Interpretation (test code = Normal 79184-0) [facility] GLUCOSE (AUTOMATED)2022-05-07 01:27:48 Test Item Value Reference Range Interpretation Comments POCT GLU (test code = 6114519439) 78 mg/dL 70-110 Lab Interpretation (test code = Normal 64229-2) [facility] GLUCOSE (AUTOMATED)2022-05-07 01:03:27 Test Item Value Reference Range Interpretation Comments POCT GLU (test code = 1437225272) 100 mg/dL 70-110 Lab Interpretation (test code = Normal 89435-1) [facility] GLUCOSE (AUTOMATED)2022-05-07 01:03:27 Test Item Value Reference Range Interpretation Comments POCT GLU (test code = 5512781496) 100 mg/dL 70-110 Lab Interpretation (test code = Normal 53286-1) [facility] GLUCOSE (AUTOMATED)2022-05-06 21:59:39 Test Item Value Reference Range Interpretation Comments POCT GLU (test code = 7110573962) 329 mg/dL 70-110 H Lab Interpretation (test code = Abnormal 57819-0) [facility] GLUCOSE (AUTOMATED)2022-05-06 21:59:39 Test Item Value Reference Range Interpretation Comments POCT GLU (test code = 7428841996) 329 mg/dL 70-110 H Lab Interpretation (test code = Abnormal 41741-6) [facility] ACT LOW [id number] 18:07:40 Test Item Value Reference Range Interpretation Comments ACTLR (test code = See_Comment H [Automat ed message] 0175054524) The system [employer] generated this result transmitted ref erence range: 89 - 169 Seconds. The reference range was not used to int erpret this result as normal/abnormal . Lab Interpretation (test Abnormal code = 96302-1) [facility] ACT LOW [id number] 18:07:40 Test Item Value Reference Range Interpretation Comments ACTLR (test code = See_Comment H [Automat ed message] 4348481612) The system [employer] generated this result transmitted ref erence range: 89 - 169 Seconds. The reference range was not used to int erpret this result as normal/abnormal . Lab Interpretation (test Abnormal code = 33135-7) [facility] ACT LOW [id number] 17:22:23 Test Item Value Reference Range Interpretation Comments ACTLR (test code = See_Comment H [Automat ed message] 9699844507) The system [employer] generated this result transmitted ref erence range: 89 - 169 Seconds. The reference range was not used to int erpret this result as normal/abnormal . Lab Interpretation (test Abnormal code = 08108-2) [facility] ACT LOW [id number] 17:22:23 Test Item Value Reference Range Interpretation Comments ACTLR (test code = See_Comment H [Automat ed message] 7583140381) The system [employer] generated this result transmitted ref erence range: 89 - 169 Seconds. The reference range was not used to int erpret this result as normal/abnormal . Lab Interpretation (test Abnormal code = 11921-1) [facility] GLUCOSE (AUTOMATED)2022-05-06 14:16:02 Test Item Value Reference Range Interpretation Comments POCT GLU (test code = 7607407297) 320 mg/dL 70-110 H Lab Interpretation (test code = Abnormal 13258-2) [facility] GLUCOSE (AUTOMATED)2022-05-06 14:16:02 Test Item Value Reference Range Interpretation Comments POCT GLU (test code = 7516255080) 320 mg/dL 70-110 H Lab Interpretation (test code = Abnormal 95799-9) [facility] GLUCOSE (AUTOMATED)2022-05-06 12:33:32 Test Item Value Reference Range Interpretation Comments POCT GLU (test code = 1466621450) 336 mg/dL 70-110 H Lab Interpretation (test code = Abnormal 59419-1) [facility] GLUCOSE (AUTOMATED)2022-05-06 12:33:32 Test Item Value Reference Range Interpretation Comments POCT GLU (test code = 2683756863) 336 mg/dL 70-110 H Lab Interpretation (test code = Abnormal 20349-8) [facility] GLUCOSE (AUTOMATED)2022-05-06 10:26:29 Test Item Value Reference Range Interpretation Comments POCT GLU (test code = 0046796211) 363 mg/dL 70-110 H Lab Interpretation (test code = Abnormal 25308-2) [facility] GLUCOSE (AUTOMATED)2022-05-06 10:26:29 Test Item Value Reference Range Interpretation Comments POCT GLU (test code = 1549648054) 363 mg/dL 70-110 H Lab Interpretation (test code = Abnormal 45153-1) [facility] GLUCOSE (AUTOMATED)2022-05-06 05:36:17 Test Item Value Reference Range Interpretation Comments POCT GLU (test code = 7452751293) 537 mg/dL 70-110 HH Lab Interpretation (test code = Abnormal 32274-8) [facility] GLUCOSE (AUTOMATED)2022-05-06 05:36:17 Test Item Value Reference Range Interpretation Comments POCT GLU (test code = 3487399938) 537 mg/dL 70-110 HH Lab Interpretation (test code = Abnormal 08241-5) [facility] GLUCOSE (AUTOMATED)2022-05-06 04:17:21 Test Item Value Reference Range Interpretation Comments POCT GLU (test code = 1287086971) 445 mg/dL 70-110 H Lab Interpretation (test code = Abnormal 15110-7) [facility] GLUCOSE (AUTOMATED)2022-05-06 04:17:21 Test Item Value Reference Range Interpretation Comments POCT GLU (test code = 1038353362) 445 mg/dL 70-110 H Lab Interpretation (test code = Abnormal 26715-2) [facility] GLUCOSE (AUTOMATED)2022-05-05 23:14:16 Test Item Value Reference Range Interpretation Comments POCT GLU (test code = 4950787162) 433 mg/dL 70-110 H Lab Interpretation (test code = Abnormal 85298-3) [facility] GLUCOSE (AUTOMATED)2022-05-05 23:14:16 Test Item Value Reference Range Interpretation Comments POCT GLU (test code = 7104983444) 433 mg/dL 70-110 H Lab Interpretation (test code = Abnormal 07538-0) [facility] GLUCOSE (AUTOMATED)2022-05-05 19:22:27 Test Item Value Reference Range Interpretation Comments POCT GLU (test code = 5825779441) 304 mg/dL 70-110 H Lab Interpretation (test code = Abnormal 65361-2) [facility] GLUCOSE (AUTOMATED)2022-05-05 19:22:27 Test Item Value Reference Range Interpretation Comments POCT GLU (test code = 3936564366) 304 mg/dL 70-110 H Lab Interpretation (test code = Abnormal 87541-8) [facility] GLUCOSE (AUTOMATED)2022-04-21 18:58:41 Test Item Value Reference Range Interpretation Comments POCT GLU (test code = 2809774617) 138 mg/dL 70-110 H Lab Interpretation (test code = Abnormal 32483-3) [facility] GLUCOSE (AUTOMATED)2022-04-21 16:48:06 Test Item Value Reference Range Interpretation Comments POCT GLU (test code = 3950392243) 72 mg/dL 70-110 Lab Interpretation (test code = Normal 76254-5) [facility] GLUCOSE (AUTOMATED)2022-04-21 14:00:44 Test Item Value Reference Range Interpretation Comments POCT GLU (test code = 1702402166) 441 mg/dL 70-110 H Lab Interpretation (test code = Abnormal 60399-9) [facility] GLUCOSE (AUTOMATED)2022-04-21 06:42:03 Test Item Value Reference Range Interpretation Comments POCT GLU (test code = 1010457162) 259 mg/dL 70-110 H Lab Interpretation (test code = Abnormal 06448-7) [facility] GLUCOSE (AUTOMATED)2022-04-21 02:56:54 Test Item Value Reference Range Interpretation Comments POCT GLU (test code = 8526075765) 250 mg/dL 70-110 H Lab Interpretation (test code = Abnormal 29349-8) [facility] GLUCOSE (AUTOMATED)2022-04-20 22:47:00 Test Item Value Reference Range Interpretation Comments POCT GLU (test code = 8284904868) 381 mg/dL 70-110 H Lab Interpretation (test code = Abnormal 21303-4) [facility] GLUCOSE (AUTOMATED)2022-04-20 22:47:00 Test Item Value Reference Range Interpretation Comments POCT GLU (test code = 2946267939) 381 mg/dL 70-110 H Lab Interpretation (test code = Abnormal 54719-7) [facility] 22:25:22 Test Item Value Reference Range Interpretation Comments Height (test code = in 0753553165) Weight (test code = lbs 4214307968) Systolic BP (test code = mmHg 9739410171) Diastolic BP (test code mmHg = 0438542790) Heart Rate (test code = bpm 0811294060) LVOT stroke volume (test 49.00 cm3 code = 5432477184) EF(Teich) (test code = 36.90 % 9101912818) LVIDD (test code = 3.60 cm 1243992440) LVIDS (test code = 3.00 cm 1483533029) Left Ventricular End 34.5 mL Systolic Volume by Teichholz Method (test code = 2582702) Left Ventricular End 54.6 mL Diastolic Volume by Teichholz Method (test code = 8170156) IVS (test code = 1.34 cm 9295517446) LVPWD (test code = 1.18 cm 8359655501) LVOT diameter (test code 2.15 cm = 0823252018) LVOT area (test code = 3.60 cm2 3378366832) FS (test code = 17 % 0829480188) MV Peak E Ezekiel (test code 44.9 cm/s = 3584394004) MV Peak A Ezekiel (test code 66.7 cm/s = 7493190215) E/A ratio (test code = ratio 1246407239) E wave decelartion time 0.15 s (test code = 9730230444) LVOT peak ezekiel (test code 97.4 cm/s = 1472669388) LVOT mn grad (test code mmHg = 3563522340) BSA (test code = 1.69 m2 9107053948) LA size (test code = 3.6 cm 3218436317) LAV(MOD-sp4) (test code 40.20 mL = 2947317590) Tapse (test code = 1.88 cm 2886221113) AV LVOT peak gradient mmHg (test code = 6543218167) LVOT peak VTI (test code 13.5 cm = 8826291707) LV V1 mean (test code = 63.30 cm/s 5650917885) Ao root diam (test code 3.60 cm = 7724426357) Aortic root (test code = 3.6 cm 5504506317) Ao root annulus (test 3.6 cm code = 3319700346) PW (test code = 1.18 cm 0.6-1.3 9352555049) EF - 2D (test code = 36.90 % 05811636) Interventricular Septum 1.34 cm Diastolic Thickness by 2D (test code = 1471059) LV GLS Endo Peak A2C -9.30 % () (test code = 3328710616) LV GLS Endo Peak A3C -9.70 % () (test code = 7443698391) LV GLS Endo Peak A4C -9.40 % () (test code = 2488735627) LV GLS Endo Peak Avg -9.50 % () (test code = 2491969780) TASV (test code = 10.8 cm/s 8179233880) LA Volume Index (BP) 23.9 mL/m2 (test code = 1476939766) LA volume (BP) (test 40.4 mL code = 1523138807) LAV(MOD-sp2) (test code 37.00 mL = 0282841522) A4C EF (test code = 48.20 % 4761219116) EF(sp4-el) (test code = 52.70 % 4787399309) SV(MOD-sp4) (test code = 39.00 mL 5798122988) SV(sp4-el) (test code = 43.50 mL 7551180745) LV Diastolic Volume (BP) 70.5 mL (test code = 3248769658) A2C EF (test code = 52.40 % 5502066480) EF(MOD-bp) (test code = 50.90 % 0155655574) EF(sp2-el) (test code = 53.20 % 2392971703) LV Systolic Volume (BP) 34.6 mL (test code = 7973905315) SV(MOD-bp) (test code = 35.90 mL 7227257941) SV(MOD-sp2) (test code = 31.40 mL 9941518782) EF (test code = 1328088190) Left Ventricular Stroke 35.9 mL Volume by 2-D Biplane-MOD (test code = 5813785) LV Diastolic Volume 41.7 mL/m2 Index (BP) (test code = 5317813375) LV Systolic Volume Index 20.5 mL/m2 (BP) (test code = 6610407771) Radiology Study observation (narrative) (test code = 07219-5) CLIFF (test code = CLIFF) ?Left?Ventricle: Left [...] color flow Doppler, spectral Doppler and strain. [facility] 22:25:22 Test Item Value Reference Range Interpretation Comments Height (test code = in 9032654998) Weight (test code = lbs 4953831329) Systolic BP (test code = mmHg 0085366989) Diastolic BP (test code mmHg = 6246968993) Heart Rate (test code = bpm 3914217311) LVOT stroke volume (test 49.00 cm3 code = 9074715771) EF(Teich) (test code = 36.90 % 7784167159) LVIDD (test code = 3.60 cm 7067856716) LVIDS (test code = 3.00 cm 6074540001) Left Ventricular End 34.5 mL Systolic Volume by Teichholz Method (test code = 2893530) Left Ventricular End 54.6 mL Diastolic Volume by Teichholz Method (test code = 3024518) IVS (test code = 1.34 cm 0579334396) LVPWD (test code = 1.18 cm 2505792784) LVOT diameter (test code 2.15 cm = 4404784098) LVOT area (test code = 3.60 cm2 5202401335) FS (test code = 17 % 6425539403) MV Peak E Ezekiel (test code 44.9 cm/s = 6002024340) MV Peak A Ezekiel (test code 66.7 cm/s = 1309371160) E/A ratio (test code = ratio 9471136308) E wave decelartion time 0.15 s (test code = 4903751662) LVOT peak ezekiel (test code 97.4 cm/s = 9073915153) LVOT mn grad (test code mmHg = 2945588418) BSA (test code = 1.69 m2 4792297908) LA size (test code = 3.6 cm 9284468238) LAV(MOD-sp4) (test code 40.20 mL = 6441520533) Tapse (test code = 1.88 cm 9650237823) AV LVOT peak gradient mmHg (test code = 0248651115) LVOT peak VTI (test code 13.5 cm = 9977047524) LV V1 mean (test code = 63.30 cm/s 7885264622) Ao root diam (test code 3.60 cm = 3943600786) Aortic root (test code = 3.6 cm 7000274883) Ao root annulus (test 3.6 cm code = 4718550261) PW (test code = 1.18 cm 0.6-1.1 4810181530) EF - 2D (test code = 36.90 % 55455460) Interventricular Septum 1.34 cm Diastolic Thickness by 2D (test code = 5770854) LV GLS Endo Peak A2C -9.30 % () (test code = 3684142494) LV GLS Endo Peak A3C -9.70 % () (test code = 7052233135) LV GLS Endo Peak A4C -9.40 % () (test code = 5480758504) LV GLS Endo Peak Avg -9.50 % () (test code = 5019534080) TASV (test code = 10.8 cm/s 7911212907) LA Volume Index (BP) 23.9 mL/m2 (test code = 8807018721) LA volume (BP) (test 40.4 mL code = 1148453607) LAV(MOD-sp2) (test code 37.00 mL = 6162695626) A4C EF (test code = 48.20 % 7553621815) EF(sp4-el) (test code = 52.70 % 7238773756) SV(MOD-sp4) (test code = 39.00 mL 8433787319) SV(sp4-el) (test code = 43.50 mL 0868143709) LV Diastolic Volume (BP) 70.5 mL (test code = 5710586718) A2C EF (test code = 52.40 % 7185069390) EF(MOD-bp) (test code = 50.90 % 0245682979) EF(sp2-el) (test code = 53.20 % 7640075447) LV Systolic Volume (BP) 34.6 mL (test code = [id number]) SV(MOD-bp) (test code = 35.90 mL 8062226497) SV(MOD-sp2) (test code = 31.40 mL 1481337453) EF (test code = 1990709020) Left Ventricular Stroke 35.9 mL Volume by 2-D Biplane-MOD (test code = 1624672) LV Diastolic Volume 41.7 mL/m2 Index (BP) (test code = 8120803589) LV Systolic Volume Index 20.5 mL/m2 (BP) (test code = 2716853062) Radiology Study observation (narrative) (test code = 52740-9) CLIFF (test code = CLIFF) ?Left?Ventricle: Left [...] color flow Doppler, spectral Doppler and strain. [facility] GLUCOSE (AUTOMATED)2022-04-20 18:19:52 Test Item Value Reference Range Interpretation Comments POCT GLU (test code = 1178526354) 204 mg/dL 70-110 H Lab Interpretation (test code = Abnormal 42707-8) [facility] GLUCOSE (AUTOMATED)2022-04-20 18:19:52 Test Item Value Reference Range Interpretation Comments POCT GLU (test code = 0006886046) 204 mg/dL 70-110 H Lab Interpretation (test code = Abnormal 35906-3) [facility] GLUCOSE (AUTOMATED)2022-04-20 14:18:10 Test Item Value Reference Range Interpretation Comments POCT GLU (test code = 0567903138) 454 mg/dL 70-110 HH Lab Interpretation (test code = Abnormal 80402-5) [facility] GLUCOSE (AUTOMATED)2022-04-20 14:18:10 Test Item Value Reference Range Interpretation Comments POCT GLU (test code = 1698614108) 454 mg/dL 70-110 HH Lab Interpretation (test code = Abnormal 43700-7) [facility]:20 Test Item Value Reference Range Interpretation Comments POCT GLU (test code = 4958841502) 240 mg/dL 70-110 H Lab Interpretation (test code = Abnormal 99199-0[facility] Test Item Value Reference Range Interpretation Comments POCT GLU (test code = 1419210956) 240 mg/dL 70-110 H Lab Interpretation (test code = Abnormal 29019-8) [facility] GLUCOSE (AUTOMATED)2022-04-20 02:48:28 Test Item Value Reference Range Interpretation Comments POCT GLU (test code = 7194637996) 389 mg/dL 70-110 H Lab Interpretation (test code = Abnormal 75142-1) [facility] 02:48:28 Test Item Value Reference Range Interpretation Comments POCT GLU (test code = 0687797014) 389 mg/dL 70-110 H Lab Interpretation (test code = Abnormal 06106-6) [facility] 00:10:29 Test Item Value Reference Range Interpretation Comments POCT GLU (test code = 7458953122) 549 mg/dL 70-110 HH Lab Interpretation (test code = Abnormal 48421-2) [facility] 00:10:29 Test Item Value Reference Range Interpretation Comments POCT GLU (test code = 1929055344) 549 mg/dL 70-110 HH Lab Interpretation (test code = Abnormal 09956-9) [facility] 15:25:27 Test Item Value Reference Range Interpretation Comments POCT GLU (test code = 8966165728) 149 mg/dL 70-110 H Lab Interpretation (test code = Abnormal 46318-0) [facility] GLUCOSE (AUTOMATED)2022-04-19 15:25:27 Test Item Value Reference Range Interpretation Comments POCT GLU (test code = 8603079443) 149 mg/dL 70-110 H Lab Interpretation (test code = Abnormal 15739-9) [facility] GLUCOSE (AUTOMATED)2022-04-19 14:28:26 Test Item Value Reference Range Interpretation Comments POCT GLU (test code = 6467318463) 62 mg/dL 70-110 L Lab Interpretation (test code = Abnormal 81902-3) [facility] GLUCOSE (AUTOMATED)2022-04-19 14:28:26 Test Item Value Reference Range Interpretation Comments POCT GLU (test code = 4094608328) 62 mg/dL 70-110 L Lab Interpretation (test code = Abnormal 82627-4) [facility] GLUCOSE (AUTOMATED)2022-04-19 10:17:31 Test Item Value Reference Range Interpretation Comments POCT GLU (test code = 8083759816) 347 mg/dL 70-110 H Lab Interpretation (test code = Abnormal 04662-7) [facility] GLUCOSE (AUTOMATED)2022-04-19 10:17:31 Test Item Value Reference Range Interpretation Comments POCT GLU (test code = 1556829851) 347 mg/dL 70-110 H Lab Interpretation (test code = Abnormal 78867-4) [facility] GLUCOSE (AUTOMATED)2022-04-19 06:21:59 Test Item Value Reference Range Interpretation Comments POCT GLU (test code = 9569989449) 102 mg/dL 70-110 Lab Interpretation (test code = Normal 60295-2) [facility] GLUCOSE (AUTOMATED)2022-04-19 06:21:59 Test Item Value Reference Range Interpretation Comments POCT GLU (test code = 7639178692) 102 mg/dL 70-110 Lab Interpretation (test code = Normal 38392-1) [facility] GLUCOSE (AUTOMATED)2022-04-19 03:10:41 Test Item Value Reference Range Interpretation Comments POCT GLU (test code = 2329932330) 218 mg/dL 70-110 H Lab Interpretation (test code = Abnormal 51091-6) [facility] GLUCOSE (AUTOMATED)2022-04-19 03:10:41 Test Item Value Reference Range Interpretation Comments POCT GLU (test code = 8197829245) 218 mg/dL 70-110 H Lab Interpretation (test code = Abnormal 92555-2) [facility] GLUCOSE (AUTOMATED)2022-04-19 00:09:01 Test Item Value Reference Range Interpretation Comments POCT GLU (test code = 0681554223) 589 mg/dL 70-110 HH Lab Interpretation (test code = Abnormal 34895-0) [facility] GLUCOSE (AUTOMATED)2022-04-19 00:09:01 Test Item Value Reference Range Interpretation Comments POCT GLU (test code = 7726802988) 589 mg/dL 70-110 HH Lab Interpretation (test code = Abnormal 91491-9) [facility] GLUCOSE (AUTOMATED)2022-04-18 22:35:43 Test Item Value Reference Range Interpretation Comments POCT GLU (test code = 3704886295) 570 mg/dL 70-110 HH Lab Interpretation (test code = Abnormal 58562-5) [facility] GLUCOSE (AUTOMATED)2022-04-18 22:35:43 Test Item Value Reference Range Interpretation Comments POCT GLU (test code = 0430274835) 570 mg/dL 70-110 HH Lab Interpretation (test code = Abnormal 86051-5) [facility] GLUCOSE (AUTOMATED)2022-04-18 17:19:47 Test Item Value Reference Range Interpretation Comments POCT GLU (test code = 2154909860) 229 mg/dL 70-110 H Lab Interpretation (test code = Abnormal 37505-1) [facility] GLUCOSE (AUTOMATED)2022-04-18 17:19:47 Test Item Value Reference Range Interpretation Comments POCT GLU (test code = 5841305146) 229 mg/dL 70-110 H Lab Interpretation (test code = Abnormal 89752-8) [facility] GLUCOSE (AUTOMATED)2022-04-18 14:45:24 Test Item Value Reference Range Interpretation Comments POCT GLU (test code = 8645032934) 143 mg/dL 70-110 H Lab Interpretation (test code = Abnormal 31869-5) [facility] GLUCOSE (AUTOMATED)2022-04-18 14:45:24 Test Item Value Reference Range Interpretation Comments POCT GLU (test code = 2529539251) 143 mg/dL 70-110 H Lab Interpretation (test code = Abnormal 48856-2) [facility] METABOLIC PANEL (NA, K, CL, CO2, GLUCOSE, BUN, CREATININE, CA)2022-04-18 11:14:46 Test Item Value Reference Range Interpretation Comments NA (test code = 135 mmol/L 135-145 4115755617) K (test code = 3.8 mmol/L 3.5-5.0 5773252988) CL (test code = 102 mmol/L 98-108 0138024266) CO2 TOTAL (test code = 26 mmol/L 23-31 4086394989) AGAP (test code = 2-16 9944507107) BUN (test code = 12 mg/dL 7-23 2035399811) GLUCOSE (test code = 246 mg/dL 70-110 H 5666263447) CREATININE (test code = 0.67 mg/dL 0.60-1.25 0235032220) CALCIUM (test code = 7.9 mg/dL 8.6-10.6 L 3041073019) eGFR (test code = mL/min/1.73m2 2251916243) CLIFF (test code = CLIFF) Association of [...] tests). Lab Interpretation Abnormal (test code = 32240-3) [facility]14[facility] Test Item Value Reference Range Interpretation Comments MAGNESIUM (test code = 6296718533) 1.9 mg/dL 1.7-2.4 Lab Interpretation (test code = Normal 02545-7) [facility] (NA, K, CL, CO2, GLUCOSE, BUN, CREATININE, CA)2022-04-18 11:14:46 Test Item Value Reference Range Interpretation Comments NA (test code = 135 mmol/L 135-145 7662842744) K (test code = 3.8 mmol/L 3.5-5.0 8929787717) CL (test code = 102 mmol/L 98-108 6142562305) CO2 TOTAL (test code = 26 mmol/L 23-31 6475871419) AGAP (test code = 2-16 8937967699) BUN (test code = 12 mg/dL 7-23 7011452402) GLUCOSE (test code = 246 mg/dL 70-110 H 5913483251) CREATININE (test code = 0.67 mg/dL 0.60-1.25 9070252790) CALCIUM (test code = 7.9 mg/dL 8.6-10.6 L 6135991506) eGFR (test code = mL/min/1.73m2 7100516673) CLIFF (test code = CLIFF) Association of [...] tests). Lab Interpretation Abnormal (test code = 71828-9) [facility] Test Item Value Reference Range Interpretation Comments MAGNESIUM (test code = 8439934841) 1.9 mg/dL 1.7-2.4 Lab Interpretation (test code = Normal 03839-1) [facility] GLUCOSE (AUTOMATED)2022-04-18 10:29:48 Test Item Value Reference Range Interpretation Comments POCT GLU (test code = 7311479650) 207 mg/dL 70-110 H Lab Interpretation (test code = Abnormal 70180-7) [facility] GLUCOSE (AUTOMATED)2022-04-18 10:29:48 Test Item Value Reference Range Interpretation Comments POCT GLU (test code = 7436098079) 207 mg/dL 70-110 H Lab Interpretation (test code = Abnormal 73684-0) [facility] GLUCOSE (AUTOMATED)2022-04-18 06:13:42 Test Item Value Reference Range Interpretation Comments POCT GLU (test code = 7452772467) 229 mg/dL 70-110 H Lab Interpretation (test code = Abnormal 95061-2) [facility] GLUCOSE (AUTOMATED)2022-04-18 06:13:42 Test Item Value Reference Range Interpretation Comments POCT GLU (test code = 4302985467) 229 mg/dL 70-110 H Lab Interpretation (test code = Abnormal 16993-4) [facility] GLUCOSE (AUTOMATED)2022-04-18 02:47:45 Test Item Value Reference Range Interpretation Comments POCT GLU (test code = 5655697114) 260 mg/dL 70-110 H Lab Interpretation (test code = Abnormal 81581-1) [facility] GLUCOSE (AUTOMATED)2022-04-18 02:47:45 Test Item Value Reference Range Interpretation Comments POCT GLU (test code = 7566587169) 260 mg/dL 70-110 H Lab Interpretation (test code = Abnormal 07734-1) [facility] GLUCOSE (AUTOMATED)2022-04-17 22:10:20 Test Item Value Reference Range Interpretation Comments POCT GLU (test code = 6017273852) 404 mg/dL 70-110 H Lab Interpretation (test code = Abnormal 88647-3) [facility] GLUCOSE (AUTOMATED)2022-04-17 22:10:20 Test Item Value Reference Range Interpretation Comments POCT GLU (test code = 5355869344) 404 mg/dL 70-110 H Lab Interpretation (test code = Abnormal 17113-4) [facility] GLUCOSE (AUTOMATED)2022-04-17 18:26:11 Test Item Value Reference Range Interpretation Comments POCT GLU (test code = 2644025412) 102 mg/dL 70-110 Lab Interpretation (test code = Normal 84954-6) [facility] GLUCOSE (AUTOMATED)2022-04-17 18:26:11 Test Item Value Reference Range Interpretation Comments POCT GLU (test code = 6622776420) 102 mg/dL 70-110 Lab Interpretation (test code = Normal 62381-1) [facility] GLUCOSE (AUTOMATED)2022-04-17 17:50:32 Test Item Value Reference Range Interpretation Comments POCT GLU (test code = 0261357582) 47 mg/dL 70-110 LL Lab Interpretation (test code = Abnormal 98246-4) [facility] GLUCOSE (AUTOMATED)2022-04-17 17:50:32 Test Item Value Reference Range Interpretation Comments POCT GLU (test code = 6811148289) 47 mg/dL 70-110 LL Lab Interpretation (test code = Abnormal 39406-5) [facility] GLUCOSE (AUTOMATED)2022-04-17 13:26:58 Test Item Value Reference Range Interpretation Comments POCT GLU (test code = 6901578970) 366 mg/dL 70-110 H Lab Interpretation (test code = Abnormal 09870-9) [facility] 13:26:58 Test Item Value Reference Range Interpretation Comments POCT GLU (test code = 4784820714) 366 mg/dL 70-110 H Lab Interpretation (test code = Abnormal 38257-7) [facility] GLUCOSE (AUTOMATED)2022-04-17 10:43:44 Test Item Value Reference Range Interpretation Comments POCT GLU (test code = 8482042664) 483 mg/dL 70-110 HH Lab Interpretation (test code = Abnormal 67999-7) [facility] 10:43:44 Test Item Value Reference Range Interpretation Comments POCT GLU (test code = 7298949731) 483 mg/dL 70-110 HH Lab Interpretation (test code = Abnormal 78546-6) [facility] GLUCOSE (AUTOMATED)2022-04-17 06:01:03 Test Item Value Reference Range Interpretation Comments POCT GLU (test code = 0909851670) 399 mg/dL 70-110 H Lab Interpretation (test code = Abnormal 08086-3) [facility] 06:01:03 Test Item Value Reference Range Interpretation Comments POCT GLU (test code = 3769674801) 399 mg/dL 70-110 H Lab Interpretation (test code = Abnormal 53183-3) [facility] 02:37:47 Test Item Value Reference Range Interpretation Comments POCT GLU (test code = 6746082988) 330 mg/dL 70-110 H Lab Interpretation (test code = Abnormal 24085-9) [facility] 02:37:47 Test Item Value Reference Range Interpretation Comments POCT GLU (test code = 9792350486) 330 mg/dL 70-110 H Lab Interpretation (test code = Abnormal 14876-4) [facility] 23:34:29 Test Item Value Reference Range Interpretation Comments POCT GLU (test code = 5714644315) 268 mg/dL 70-110 H Lab Interpretation (test code = Abnormal 66240-5) [facility] GLUCOSE (AUTOMATED)2022-04-16 23:34:29 Test Item Value Reference Range Interpretation Comments POCT GLU (test code = 9711718198) 268 mg/dL 70-110 H Lab Interpretation (test code = Abnormal 50426-4) [facility] GLUCOSE (AUTOMATED)2022-04-16 17:10:56 Test Item Value Reference Range Interpretation Comments POCT GLU (test code = 9003080080) 396 mg/dL 70-110 H Lab Interpretation (test code = Abnormal 81496-3) [facility] GLUCOSE (AUTOMATED)2022-04-16 17:10:56 Test Item Value Reference Range Interpretation Comments POCT GLU (test code = 8441274276) 396 mg/dL 70-110 H Lab Interpretation (test code = Abnormal 03814-9) [facility] GLUCOSE (AUTOMATED)2022-03-09 20:30:40 Test Item Value Reference Range Interpretation Comments POCT GLU (test code = 3245063282) 332 mg/dL 70-110 H Lab Interpretation (test code = Abnormal 82945-3) [facility] GLUCOSE (AUTOMATED)2022-03-09 13:23:52 Test Item Value Reference Range Interpretation Comments POCT GLU (test code = 9854423759) 373 mg/dL 70-110 H Lab Interpretation (test code = Abnormal 06143-5) [facility] GLUCOSE (AUTOMATED)2022-03-09 07:10:19 Test Item Value Reference Range Interpretation Comments POCT GLU (test code = 2380638956) 520 mg/dL 70-110 HH Lab Interpretation (test code = Abnormal 66633-1) [facility] GLUCOSE (AUTOMATED)2022-03-09 04:11:59 Test Item Value Reference Range Interpretation Comments POCT GLU (test code = 2279597345) 443 mg/dL 70-110 H Lab Interpretation (test code = Abnormal 70136-6) [facility] GLUCOSE (AUTOMATED)2022-03-09 02:28:25 Test Item Value Reference Range Interpretation Comments POCT GLU (test code = 3196821390) 438 mg/dL 70-110 H Lab Interpretation (test code = Abnormal 14865-2) [facility] GLUCOSE (AUTOMATED)2022-03-08 22:12:24 Test Item Value Reference Range Interpretation Comments POCT GLU (test code = 7208386337) 310 mg/dL 70-110 H Lab Interpretation (test code = Abnormal 37704-9) [facility] GLUCOSE (AUTOMATED)2022-03-08 22:12:24 Test Item Value Reference Range Interpretation Comments POCT GLU (test code = 4779132113) 310 mg/dL 70-110 H Lab Interpretation (test code = Abnormal 72113-0) [facility] GLUCOSE (AUTOMATED)2022-03-08 17:21:26 Test Item Value Reference Range Interpretation Comments POCT GLU (test code = 4254276385) 411 mg/dL 70-110 H Lab Interpretation (test code = Abnormal 58001-2) [facility] GLUCOSE (AUTOMATED)2022-03-08 17:21:26 Test Item Value Reference Range Interpretation Comments POCT GLU (test code = 1582494750) 411 mg/dL 70-110 H Lab Interpretation (test code = Abnormal 99620-4) [facility] GLUCOSE (AUTOMATED)2022-03-08 12:59:57 Test Item Value Reference Range Interpretation Comments POCT GLU (test code = 9899068585) 484 mg/dL 70-110 HH Lab Interpretation (test code = Abnormal 35751-3) [facility] GLUCOSE (AUTOMATED)2022-03-08 12:59:57 Test Item Value Reference Range Interpretation Comments POCT GLU (test code = 0444552237) 484 mg/dL 70-110 HH Lab Interpretation (test code = Abnormal 09051-0) [facility] GLUCOSE (AUTOMATED)2022-03-08 05:42:15 Test Item Value Reference Range Interpretation Comments POCT GLU (test code = 6415439984) 307 mg/dL 70-110 H Lab Interpretation (test code = Abnormal 19430-5) [facility] GLUCOSE (AUTOMATED)2022-03-08 05:42:15 Test Item Value Reference Range Interpretation Comments POCT GLU (test code = 9997583062) 307 mg/dL 70-110 H Lab Interpretation (test code = Abnormal 32841-9) [facility] GLUCOSE (AUTOMATED)2022-03-08 02:29:53 Test Item Value Reference Range Interpretation Comments POCT GLU (test code = 9135767031) 298 mg/dL 70-110 H Lab Interpretation (test code = Abnormal 34277-6) [facility] 02:29:53 Test Item Value Reference Range Interpretation Comments POCT GLU (test code = 0281159776) 298 mg/dL 70-110 H Lab Interpretation (test code = Abnormal 87695-6) [facility] GLUCOSE (AUTOMATED)2022-03-07 23:10:06 Test Item Value Reference Range Interpretation Comments POCT GLU (test code = 0631384117) 356 mg/dL 70-110 H Lab Interpretation (test code = Abnormal 17507-7) [facility] 23:10:06 Test Item Value Reference Range Interpretation Comments POCT GLU (test code = 4837328714) 356 mg/dL 70-110 H Lab Interpretation (test code = Abnormal 49312-4) [facility] GLUCOSE (AUTOMATED)2022-03-07 22:18:04 Test Item Value Reference Range Interpretation Comments POCT GLU (test code = 6808450077) 374 mg/dL 70-110 H Lab Interpretation (test code = Abnormal 17384-4) [facility] 22:18:04 Test Item Value Reference Range Interpretation Comments POCT GLU (test code = 7286837022) 374 mg/dL 70-110 H Lab Interpretation (test code = Abnormal 97937-1) [facility] 17:34:08 Test Item Value Reference Range Interpretation Comments POCT GLU (test code = 1816257545) 383 mg/dL 70-110 H Lab Interpretation (test code = Abnormal 18203-0) [facility] 17:34:08 Test Item Value Reference Range Interpretation Comments POCT GLU (test code = 4371571631) 383 mg/dL 70-110 H Lab Interpretation (test code = Abnormal 36745-7) [facility] 08:46:10 Test Item Value Reference Range Interpretation Comments POCT GLU (test code = 4524285444) 229 mg/dL 70-110 H Lab Interpretation (test code = Abnormal 83159-1) [facility] 08:46:10 Test Item Value Reference Range Interpretation Comments POCT GLU (test code = 5236493966) 229 mg/dL 70-110 H Lab Interpretation (test code = Abnormal 74366-6) [facility] [id number] 08:20:29 Test Item Value Reference Range Interpretation Comments ESR (test code = 11319-1) See_Comment [ Automated message] The system [employer] generated this result transmitted ref erence range: 0 - 10 m m/HR. The reference r ambrosio was not used to interpret this result as normal/abnor mal. Lab Interpretation (test Normal code = 61551-3) [facility] [id number] 08:20:29 Test Item Value Reference Range Interpretation Comments ESR (test code = 13010-1) See_Comment [ Automated message] The system [employer] generated this result transmitted ref erence range: 0 - 10 m m/HR. The reference r ambrosio was not used to interpret this result as normal/abnor mal. Lab Interpretation (test Normal code = 71551-1) [facility]-07 08:17:03 Test Item Value Reference Range Interpretation Comments HGB A1C (test code = 7.6 % 4.0-5.7 H 4548-4) CLIFF (test code = CLIFF) Reference RangesNormal: <5.7%Prediabetes: 5.7 - 6.4%Diabetes: > 6.5% Lab Interpretation (test Abnormal code = 29416-8) [facility]2022-03-07 08:17:03 Test Item Value Reference Range Interpretation Comments HGB A1C (test code = 7.6 % 4.0-5.7 H 4548-4) CLIFF (test code = CLIFF) Reference RangesNormal: <5.7%Prediabetes: 5.7 - 6.4%Diabetes: > 6.5% Lab Interpretation (test Abnormal code = 54199-0) [facility])(TOTAL CHOLESTEROL, TRIGLYCERIDES, HDL)2022-03-07 07:33:05 Test Item Value Reference Range Interpretation Comments CHOL (test code = 250 mg/dL 120-200 H 3320218544) HDL (test code = 55 mg/dL See_Comment [Automated message] 7534744571) The system [employer] generated this result transmit jay reference range : >=40. The refer ence range was not u sed to interpret th is result as normal/abnormal . HDLC RATIO (test code = See_Comment [Au tomated message] 9379740426) The system [employer] generated this result transmit jay reference range : <=5.0. The refe rence range was not u sed to interpret th is result as normal/abnormal . TRIG (test code = 171 mg/dL 30-170 H 6168762474) LDL CHOL (test code = 161 mg/dL See_Comment H [Auto mated message] 09900-0) The system [employer] generated this result transmit jay reference range : <=160. The refe rence range was not u sed to interpret th is result as normal/abnormal . VLDL (test code = 34 mg/dL 5-60 6138231865) Lab Interpretation (test Abnormal code = 16091-9) [facility]71)(TOTAL CHOLESTEROL, TRIGLYCERIDES, HDL)2022-03-07 07:33:05 Test Item Value Reference Range Interpretation Comments CHOL (test code = 250 mg/dL 120-200 H 9751554516) HDL (test code = 55 mg/dL See_Comment [Automated message] 2060488174) The system [employer] generated this result transmit jay reference range : >=40. The refer ence range was not u sed to interpret th is result as normal/abnormal . HDLC RATIO (test code = See_Comment [Au tomated message] [id number]) The system [employer] generated this result transmit jay reference range : <=5.0. The refe rence range was not u sed to interpret th is result as normal/abnormal . TRIG (test code = 171 mg/dL 30-170 H 1774642518) LDL CHOL (test code = 161 mg/dL See_Comment H [Auto mated message] 40315-6) The system [employer] generated this result transmit jay reference range : <=160. The refe rence range was not u sed to interpret th is result as normal/abnormal . VLDL (test code = 34 mg/dL 5-60 1595629914) Lab Interpretation (test Abnormal code = 89054-5) [place] [id number] 07:31:45 Test Item Value Reference Range Interpretation Comments FREE T4 (test code = See_Comment [Autom ated message] 8891956343) The system [employer] generated this result transmitted ref erence range: 0.78 - 2 .20 ng/dL:. The ref erence range was not u sed to interpret this result as normal/abnor mal. Lab Interpretation (test Normal code = 36563-0) [place] 326232022-10-31 07:31:45 Test Item Value Reference Range Interpretation Comments FREE T4 (test code = See_Comment [Autom ated message] [id number]) The system [employer] generated this result transmitted ref erence range: 0.78 - 2 .20 ng/dL:. The ref erence range was not u sed to interpret this result as normal/abnor mal. Lab Interpretation (test Normal code = 85208-8) [place] 48434022-10-31 07:31:25 Test Item Value Reference Range Interpretation Comments FREE T3 (test code = 1904585489) 3.54 pg/mL 2.77-5.27 Lab Interpretation (test code = Normal 47352-0) [place] [id number] 07:31:25 Test Item Value Reference Range Interpretation Comments FREE T3 (test code = 1319448404) 3.54 pg/mL 2.77-5.27 Lab Interpretation (test code = Normal 68343-3) [id number] 07:23:24 Test Item Value Reference Range Interpretation Comments NT-proBNP (test code 107 pg/mL See_Comment [Autom ated = 1043992432) message] The system which generated this result transmitted reference range : <=125. The reference range was not used to interpret this result as normal/abnormal . CLIFF (test code = CLIFF) Biotin has been reported to cause a negative bias, interpret results relative to patient's use of biotin. Lab Interpretation Normal (test code = 47135-5) [facility] [id number] 07:23:24 Test Item Value Reference Range Interpretation Comments NT-proBNP (test code 107 pg/mL See_Comment [Autom ated = 7454009960) message] The system which generated this result transmitted reference range : <=125. The reference range was not used to interpret this result as normal/abnormal . CLIFF (test code = CLIFF) Biotin has been reported to cause a negative bias, interpret results relative to patient's use of biotin. Lab Interpretation Normal (test code = 89358-5) [facility] 07:14:08 Test Item Value Reference Range Interpretation Comments MAGNESIUM (test code = 5200427371) 2.0 mg/dL 1.7-2.4 Lab Interpretation (test code = Normal 25033-1) [facility]08 Test Item Value Reference Range Interpretation Comments MAGNESIUM (test code = 0769278598) 2.0 mg/dL 1.7-2.4 Lab Interpretation (test code = Normal 23980-6) [facility] 07:13:48 Test Item Value Reference Range Interpretation Comments ALCOHOL (test code = 165 mg/dL 2666938140) CLIFF (test code = CLIFF) <10 Rjisorzd24-965 Toxic>100 Depression of HAMMER FITTER>400 Fatalities Reported [facility]2022-10-31 07:13:48 Test Item Value Reference Range Interpretation Comments ALCOHOL (test code = 165 mg/dL 0301652591) CLIFF (test code = CLIFF) <10 Vhrsdupe83-158 Toxic>100 Depression of HAMMER FITTER>400 Fatalities Reported [facility] [id number] 07:13:47 Test Item Value Reference Range Interpretation Comments URIC ACID (test code = 6716032636) 4.7 mg/dL 3.6-8.0 Lab Interpretation (test code = Normal 62613-3) [facility] [id number] 07:13:47 Test Item Value Reference Range Interpretation Comments URIC ACID (test code = 2172550847) 4.7 mg/dL 3.6-8.0 Lab Interpretation (test code = Normal 77059-7) [facility]07 04:16:37 Test Item Value Reference Range Interpretation Comments POCT GLU (test code = 0075783210) 113 mg/dL 70-110 H Lab Interpretation (test code = Abnormal 10246-9) [facility]22-[facility]-07 04:16:37 Test Item Value Reference Range Interpretation Comments POCT GLU (test code = 4500153053) 113 mg/dL 70-110 H Lab Interpretation (test code = Abnormal 71793-7) [facility]. METABOLIC PANEL (16810)2022-03-07 02:43:33 Test Item Value Reference Range Interpretation Comments NA (test code = 139 mmol/L 135-145 2107492204) K (test code = 4.2 mmol/L 3.5-5.0 Slight 5172448855) hemolysis CL (test code = 101 mmol/L 98-108 9310983400) CO2 TOTAL (test code 28 mmol/L 23-31 = 6371079301) AGAP (test code = 2-16 1903208714) BUN (test code = 12 mg/dL 7-23 Slight 8216264343) hemolysis GLUCOSE (test code = 53 mg/dL 70-110 L 7599721926) CREATININE (test code 1.05 mg/dL 0.60-1.25 = 1007706648) TOTAL BILI (test code 0.7 mg/dL 0.1-1.1 = 4499535121) CALCIUM (test code = 8.7 mg/dL 8.6-10.6 9144231190) T PROTEIN (test code 7.7 g/dL 6.3-8.2 = 4802248985) ALBUMIN (test code = 4.3 g/dL 3.5-5.0 2349954633) ALK PHOS (test code = 102 U/L 34-122 Slight 2970697310) hemolysis ALTv (test code = 20 U/L 5-50 1742-6) AST(SGOT) (test code 39 U/L 13-40 Slight = 1401822639) hemolysis eGFR (test code = mL/min/1.73m2 4223892624) CLIFF (test code = CLIFF) Association of [...] tests). Lab Interpretation Abnormal (test code = 50504-9) [facility]. METABOLIC PANEL (11846)2022-03-07 02:43:33 Test Item Value Reference Range Interpretation Comments NA (test code = 139 mmol/L 135-145 2228168544) K (test code = 4.2 mmol/L 3.5-5.0 Slight 9576375885) hemolysis CL (test code = 101 mmol/L 98-108 2910090225) CO2 TOTAL (test code 28 mmol/L 23-31 = 9136618966) AGAP (test code = 2-16 5710912330) BUN (test code = 12 mg/dL 7-23 Slight 7206227413) hemolysis GLUCOSE (test code = 53 mg/dL 70-110 L 1140733970) CREATININE (test code 1.05 mg/dL 0.60-1.25 = 1086888469) TOTAL BILI (test code 0.7 mg/dL 0.1-1.1 = 5050322948) CALCIUM (test code = 8.7 mg/dL 8.6-10.6 5107520851) T PROTEIN (test code 7.7 g/dL 6.3-8.2 = 9464081490) ALBUMIN (test code = 4.3 g/dL 3.5-5.0 1653893349) ALK PHOS (test code = 102 U/L 34-122 Slight 5840954349) hemolysis ALTv (test code = 20 U/L 5-50 1742-6) AST(SGOT) (test code 39 U/L 13-40 Slight = 9141090644) hemolysis eGFR (test code = mL/min/1.73m2 4612916379) CLIFF (test code = CLIFF) Association of [...] tests). Lab Interpretation Abnormal (test code = 11900-4) [facility] WITH [id number] 02:10:35 Test Item Value Reference Range Interpretation [...] RDW-SD (test code = 42.8 fL 38.5-51.6 84545-8) RDW-CV (test code = 13.7 % 12.1-15.4 788-0) PLT (test code = See_Comment H [Automated 777-3) message] The sy stem which generated this result transmitted reference range : 150 - 328 10*3/ ?L. The reference r ambrosio was not used to interpret this result as normal/abnormal . MPV (test code = 9.6 fL 9.8-13.0 L 94690-9) NRBC/100 WBC (test See_Comment [Automat ed code = 3988103373) message] The system which generated this result transmitted reference range : 0.0 - 10.0 /100 WBCs. The refer ence range was not u sed to interpret th is result as normal/abnormal . NRBC x10^3 (test code See_Comment [Auto mated = 8346820677) message] The s ystem which generated this result transmitted reference range : 10*3/?L. The reference range was not used to interpret this result as normal/abnormal . GRAN MAT (NEUT) % 71.4 % (test code = 770-8) IMM GRAN % (test code 0.50 % = 6595148043) LYMPH % (test code = 19.8 % 736-9) MONO % (test code = 6.0 % 5905-5) EOS % (test code = 1.7 % 713-8) BASO % (test code = 0.6 % 706-2) GRAN MAT x10^3(ANC) 8.52 10*3/uL 1.99-6.95 H (test code = 2392617850) IMM GRAN x10^3 (test 0.06 10*3/uL 0.00-0.06 code = 6234796946) LYMPH x10^3 (test code 2.36 10*3/uL 1.09-3.23 = 731-0) MONO x10^3 (test code 0.72 10*3/uL 0.36-1.02 = 742-7) EOS x10^3 (test code = 0.20 10*3/uL 0.06-0.53 711-2) BASO x10^3 (test code 0.07 10*3/uL 0.01-0.09 = 704-7) Lab Interpretation Abnormal (test code = 49272-9) [facility] WITH [id number] 02:10:35 Test Item Value Reference Range Interpretation [...] RDW-SD (test code = 42.8 fL 38.5-51.6 15775-7) RDW-CV (test code = 13.7 % 12.1-15.4 788-0) PLT (test code = See_Comment H [Automated 777-3) message] The sy stem which generated this result transmitted reference range : 150 - 328 10*3/ ?L. The reference r ambrosio was not used to interpret this result as normal/abnormal . MPV (test code = 9.6 fL 9.8-13.0 L 39494-1) NRBC/100 WBC (test See_Comment [Automat ed code = 9460240834) message] The system which generated this result transmitted reference range : 0.0 - 10.0 /100 WBCs. The refer ence range was not u sed to interpret th is result as normal/abnormal . NRBC x10^3 (test code See_Comment [Auto mated = 1835749156) message] The s ystem which generated this result transmitted reference range : 10*3/?L. The reference range was not used to interpret this result as normal/abnormal . GRAN MAT (NEUT) % 71.4 % (test code = 770-8) IMM GRAN % (test code 0.50 % = 7257294676) LYMPH % (test code = 19.8 % 736-9) MONO % (test code = 6.0 % 5905-5) EOS % (test code = 1.7 % 713-8) BASO % (test code = 0.6 % 706-2) GRAN MAT x10^3(ANC) 8.52 10*3/uL 1.99-6.95 H (test code = 3732076781) IMM GRAN x10^3 (test 0.06 10*3/uL 0.00-0.06 code = 0568561385) LYMPH x10^3 (test code 2.36 10*3/uL 1.09-3.23 = 731-0) MONO x10^3 (test code 0.72 10*3/uL 0.36-1.02 = 742-7) EOS x10^3 (test code = 0.20 10*3/uL 0.06-0.53 711-2) BASO x10^3 (test code 0.07 10*3/uL 0.01-0.09 = 704-7) Lab Interpretation Abnormal (test code = 64216-4) [facility] GLUCOSE (AUTOMATED)2022-03-07 01:47:49 Test Item Value Reference Range Interpretation Comments POCT GLU (test code = 2835189917) 65 mg/dL 70-110 L Lab Interpretation (test code = Abnormal 21255-9) [facility] GLUCOSE (AUTOMATED)2022-03-07 01:47:49 Test Item Value Reference Range Interpretation Comments POCT GLU (test code = 9171670993) 65 mg/dL 70-110 L Lab Interpretation (test code = Abnormal 40557-0) [facility] GLUCOSE (AUTOMATED)2021-03-03 17:40:06 Test Item Value Reference Range Interpretation Comments POCT GLU (test code = 5348852713) 322 mg/dL 70-110 H Lab Interpretation (test code = Abnormal 34784-1) [facility] GLUCOSE (AUTOMATED)2021-03-03 13:09:15 Test Item Value Reference Range Interpretation Comments POCT GLU (test code = 9187916177) 316 mg/dL 70-110 H Lab Interpretation (test code = Abnormal 17632-8) [facility] METABOLIC PANEL (NA, K, CL, CO2, GLUCOSE, BUN, CREATININE, CA)2021-03-03 11:38:31 Test Item Value Reference Range Interpretation Comments NA (test code = 132 mmol/L 135-145 L 0963429604) K (test code = 4.9 mmol/L 3.5-5.0 8607606127) CL (test code = 101 mmol/L 98-108 9149957755) CO2 TOTAL (test code = 27 mmol/L 23-31 6687986245) AGAP (test code = 2-16 1071822150) BUN (test code = 19 mg/dL 7-23 5145463358) GLUCOSE (test code = 318 mg/dL 70-110 H 8191259612) CREATININE (test code = 0.88 mg/dL 0.60-1.25 8653784687) CALCIUM (test code = 9.4 mg/dL 8.6-10.6 5888016079) eGFR (test code = mL/min/1.73m2 7332435812) CLIFF (test code = CLIFF) Association of [...] tests). Lab Interpretation Abnormal (test code = 59190-1) [facility] WITH [id number] 10:44:26 Test Item Value Reference Range Interpretation Comments WBC (test code = See_Comment [Automated 1463-2) message] The sy stem which generated this result transmitted reference range : 4.20 - 10.70 10*3/?L. The reference range was not used to interpret this result as normal/abnormal . RBC (test code = See_Comment [Automated 189-1) message] The sy stem which generated this [...] RDW-SD (test code = 40.4 fL 38.5-51.6 12069-0) RDW-CV (test code = 12.8 % 12.1-15.4 788-0) PLT (test code = See_Comment H [Automated 777-3) message] The sy stem which generated this result transmitted reference range : 150 - 328 10*3/ ?L. The reference r ambrosio was not used to interpret this result as normal/abnormal . MPV (test code = 11.3 fL 9.8-13.0 24550-9) NRBC/100 WBC (test See_Comment [Automat ed code = 2553180009) message] The system which generated this result transmitted reference range : 0.0 - 10.0 /100 WBCs. The refer ence range was not u sed to interpret th is result as normal/abnormal . NRBC x10^3 (test code <0.01 See_Comment [Auto mated = 3596143149) message] The s ystem which generated this result transmitted reference range : 10*3/?L. The reference range was not used to interpret this result as normal/abnormal . GRAN MAT (NEUT) % 51.4 % (test code = 770-8) IMM GRAN % (test code 0.30 % = 3998773563) LYMPH % (test code = 29.5 % 736-9) MONO % (test code = 9.9 % 5905-5) EOS % (test code = 7.3 % 713-8) BASO % (test code = 1.6 % 706-2) GRAN MAT x10^3(ANC) 3.88 10*3/uL 1.99-6.95 (test code = 8111264936) IMM GRAN x10^3 (test <0.03 0.00-0.06 code = 5437606035) LYMPH x10^3 (test code 2.23 10*3/uL 1.09-3.23 = 731-0) MONO x10^3 (test code 0.75 10*3/uL 0.36-1.02 = 742-7) EOS x10^3 (test code = 0.55 10*3/uL 0.06-0.53 H 711-2) BASO x10^3 (test code 0.12 10*3/uL 0.01-0.09 H = 704-7) Lab Interpretation Abnormal (test code = 29951-4) [facility] GLUCOSE (AUTOMATED)2021-03-03 05:25:50 Test Item Value Reference Range Interpretation Comments POCT GLU (test code = 5012368140) 140 mg/dL 70-110 H Lab Interpretation (test code = Abnormal 46079-0) [facility] GLUCOSE (AUTOMATED)2021-03-03 05:25:49 Test Item Value Reference Range Interpretation Comments POCT GLU (test code = 8935906412) 129 mg/dL 70-110 H Lab Interpretation (test code = Abnormal 68446-0) [facility] GLUCOSE (AUTOMATED)2021-03-02 22:33:16 Test Item Value Reference Range Interpretation Comments POCT GLU (test code = 2089112126) 205 mg/dL 70-110 H Lab Interpretation (test code = Abnormal 94022-5) [facility] GLUCOSE (AUTOMATED)2021-03-02 17:32:23 Test Item Value Reference Range Interpretation Comments POCT GLU (test code = 7065587293) 253 mg/dL 70-110 H Lab Interpretation (test code = Abnormal 48999-1) [facility] [id number] 14:39:03 Test Item Value Reference Range Interpretation Comments FREE T4 (test code = See_Comment L [Autom ated message] 6247263919) The system [employer] generated this result transmitted ref erence range: 0.78 - 2 .20 ng/dL:. The ref erence range was not u sed to interpret this result as normal/abnor mal. Lab Interpretation (test Abnormal code = 50534-5) [facility] [id number] 14:38:22 Test Item Value Reference Range Interpretation Comments FREE T3 (test code = 5912138840) 2.94 pg/mL 2.77-5.27 Lab Interpretation (test code = Normal 06455-9) [facility]21-[facility]-02 13:04:49 Test Item Value Reference Range Interpretation Comments POCT GLU (test code = 7934224280) 177 mg/dL 70-110 H Lab Interpretation (test code = Abnormal 05679-5) [facility] Metabolic Panel (NA, K, CL, CO2, GLUCOSE, BUN, CREATININE, CA)2021-03-02 12:10:05 Test Item Value Reference Range Interpretation Comments NA (test code = 134 mmol/L 135-145 L 3520213568) K (test code = 4.8 mmol/L 3.5-5.0 7833663756) CL (test code = 106 mmol/L 98-108 8771468900) CO2 TOTAL (test code = 24 mmol/L 23-31 8090649912) AGAP (test code = 2-16 2151582088) BUN (test code = 14 mg/dL 7-23 9511553718) GLUCOSE (test code = 201 mg/dL 70-110 H 1648831643) CREATININE (test code = 0.83 mg/dL 0.60-1.25 2617001397) CALCIUM (test code = 9.4 mg/dL 8.6-10.6 2392977544) eGFR (test code = mL/min/1.73m2 0648516324) CLIFF (test code = CLIFF) Association of [...] tests). Lab Interpretation Abnormal (test code = 02554-9) [facility] GLUCOSE (AUTOMATED)2021-03-02 04:41:03 Test Item Value Reference Range Interpretation Comments POCT GLU (test code = 6354305292) 165 mg/dL 70-110 H Lab Interpretation (test code = Abnormal 14652-2) [facility] GLUCOSE (AUTOMATED)2021-03-01 21:40:23 Test Item Value Reference Range Interpretation Comments POCT GLU (test code = 2943558114) 338 mg/dL 70-110 H Lab Interpretation (test code = Abnormal 14617-6) [facility] GLUCOSE (AUTOMATED)2021-03-01 21:15:20 Test Item Value Reference Range Interpretation Comments POCT GLU (test code = 3987038774) 308 mg/dL 70-110 H Lab Interpretation (test code = Abnormal 78240-9) [facility] [id number] 20:59:15 Test Item Value Reference Range Interpretation Comments TSH (test code = See_Comment H [Automated message] 7254035516) The system [employer] generated this result transmitted ref erence range: 0.45 - 4 .70 mIU/L. The refe rence range was not u sed to interpret this result as normal/abnor mal. Lab Interpretation (test Abnormal code = 44085-0) [facility] (A1C)2021-03-01 20:50:54 Test Item Value Reference Range Interpretation Comments HGB A1C (test code = 8.6 % 4.0-5.7 H 4548-4) CLIFF (test code = CLIFF) Reference RangesNormal: <5.7%Prediabetes: 5.7 - 6.4%Diabetes: > 6.5% Lab Interpretation (test Abnormal code = 97142-7) [facility] GLUCOSE (AUTOMATED)2021-03-01 18:26:29 Test Item Value Reference Range Interpretation Comments POCT GLU (test code = 8139454786) 177 mg/dL 70-110 H Lab Interpretation (test code = Abnormal 03613-9) [facility] GLUCOSE (AUTOMATED)2021-03-01 16:52:10 Test Item Value Reference Range Interpretation Comments POCT GLU (test code = 6016678571) 112 mg/dL 70-110 H Lab Interpretation (test code = Abnormal 23643-5) [facility] GLUCOSE (AUTOMATED)2021-03-01 16:52:10 Test Item Value Reference Range Interpretation Comments POCT GLU (test code = 5951228118) 154 mg/dL 70-110 H Lab Interpretation (test code = Abnormal 94030-6) [facility] 16:14:23 Test Item Value Reference Range Interpretation Comments MAGNESIUM (test code = 4902507527) 1.8 mg/dL 1.7-2.4 Lab Interpretation (test code = Normal 91627-8) [facility]. METABOLIC PANEL (90212)2021-03-01 16:14:02 Test Item Value Reference Range Interpretation Comments NA (test code = 136 mmol/L 135-145 4578221066) K (test code = 4.1 mmol/L 3.5-5.0 6678365471) CL (test code = 105 mmol/L 98-108 6779008478) CO2 TOTAL (test code = 28 mmol/L 23-31 2709842840) AGAP (test code = 2-16 4049905110) BUN (test code = 14 mg/dL 7-23 2199383544) GLUCOSE (test code = 187 mg/dL 70-110 H 7530380489) CREATININE (test code = 0.85 mg/dL 0.60-1.25 6320360181) TOTAL BILI (test code = 0.6 mg/dL 0.1-1.3 7949693445) CALCIUM (test code = 9.0 mg/dL 8.6-10.6 2390710270) T PROTEIN (test code = 7.2 g/dL 6.3-8.2 1610732745) ALBUMIN (test code = 3.9 g/dL 3.5-5.0 7495776053) ALK PHOS (test code = 77 U/L 34-122 7269543852) ALTv (test code = 19 U/L 5-50 1742-6) AST(SGOT) (test code = 25 U/L 13-40 0794723328) eGFR (test code = mL/min/1.73m2 9156484673) CLIFF (test code = CLIFF) Association of [...] tests). Lab Interpretation Abnormal (test code = 73921-4) [facility] WITH [id number] 15:58:21 Test Item Value Reference Range Interpretation [...] RDW-SD (test code = 41.1 fL 38.5-51.6 83700-7) RDW-CV (test code = 12.7 % 12.1-15.4 788-0) PLT (test code = See_Comment H [Automated 777-3) message] The sy stem which generated this result transmitted reference range : 150 - 328 10*3/ ?L. The reference r ambrosio was not used to interpret this result as normal/abnormal . MPV (test code = 9.6 fL 9.8-13.0 L 98763-5) NRBC/100 WBC (test See_Comment [Automat ed code = 7003212005) message] The system which generated this result transmitted reference range : 0.0 - 10.0 /100 WBCs. The refer ence range was not u sed to interpret th is result as normal/abnormal . NRBC x10^3 (test code <0.01 See_Comment [Auto mated = 9016320426) message] The s ystem which generated this result transmitted reference range : 10*3/?L. The reference range was not used to interpret this result as normal/abnormal . GRAN MAT (NEUT) % 57.2 % (test code = 770-8) IMM GRAN % (test code 0.50 % = 1155412981) LYMPH % (test code = 23.8 % 736-9) MONO % (test code = 8.8 % 5905-5) EOS % (test code = 8.4 % 713-8) BASO % (test code = 1.3 % 706-2) GRAN MAT x10^3(ANC) 6.36 10*3/uL 1.99-6.95 (test code = 5116657094) IMM GRAN x10^3 (test 0.05 10*3/uL 0.00-0.06 code = 5714437851) LYMPH x10^3 (test code 2.64 10*3/uL 1.09-3.23 = 731-0) MONO x10^3 (test code 0.98 10*3/uL 0.36-1.02 = 742-7) EOS x10^3 (test code = 0.93 10*3/uL 0.06-0.53 H 711-2) BASO x10^3 (test code 0.14 10*3/uL 0.01-0.09 H = 704-7) Lab Interpretation Abnormal (test code = 24849-7) [facility] [id number] 06:00:00 Test Item Value Reference Range Interpretation Comments CULTURE (BEAKER) (test No growth in 5 days code = 1095) URINE [id number] 10:25:00 Test Item Value Reference Range Interpretation Comments CULTURE (BEAKER) (test code = 1095) No growth POCT-GLUCOSE [id number] 17:10:00 Test Item Value Reference Range Interpretation Comments POC-GLUCOSE METER 232 mg/dL 70-110 H TESTED AT [facility] 67[address] (BEAKER) (test code = CESAR Servin [facility] 1538) [address] CT, CTANGIO [id number] 16:41:00CTV pleaseFINAL REPORT CTV brain 02/13/2018 4:35 [...] Sky Verified Date/Time: 02/13/2018 16:41:24 Reading Location: [facility] Radiology Reading Room -GLUCOSE [id number] 13:07:00 Test Item Value Reference Range Interpretation Comments POC-GLUCOSE METER 311 mg/dL 70-110 H Notified [facility] (test code = AT [address]) [place] [address] 0 IRON, TIBC, % SAT. (WITHOUT FERRITIN)2018-02-13 10:10:00 Test Item Value Reference Range Interpretation Comments IRON (BEAKER) (test code = 547) 49 ug/dL 40-160 TOTAL IRON BINDING CAPACITY 231 ug/dL 250-450 L (BEAKER) (test code = 769) IRON % SATURATION (2) (BEAKER) 21 % 20-55 (test code = 2590) POCT-GLUCOSE [id number] 08:50:00 Test Item Value Reference Range Interpretation Comments POC-GLUCOSE METER 348 mg/dL 70-110 H Notified Gareth Coronado MD/TESTED (BEAKER) (test code = AT [address]) [facility] [address] 0 BASIC METABOLIC [id number] 08:31:00 Test Item Value Reference Range Interpretation [...] NOT APPLICABLE FOR DIALYSIS PATIEN TS. LIPID [id number] 08:31:00 Test Item Value Reference Range Interpretation [...] 130-159 High 160-189 Very High >=190IMMATURE RETICULOCYTE [id number] 08:16:00 Test Item Value Reference Range Interpretation Comments IMMATURE RETIC FRACTION (BEAKER) 8.600 % 2.300-13.400 (test code = 1447) RETICULOCYTE COUNT PCT (BEAKER) (test 1.4 % 0.5-1.8 code = 575) CBC W/PLT COUNT & AUTO [id number] 08:16:00 Test Item Value Reference Range Interpretation [...] PERCENT (BEAKER) (test code = 2801) POCT-GLUCOSE [id number] 21:18:00 Test Item Value Reference Range Interpretation Comments POC-GLUCOSE METER 226 mg/dL 70-110 H TESTED AT [facility] [address] ([facility]) (test code = [place] Serv[place] 1539) [address] MR, BRAIN, WITHOUT [id number] 19:43:00FINAL REPORT MRI brain without contrast INDICATION: [...] thrombus cannot be excluded. The major proximal [place] flow voids are maintained. Mild [...] Consider ENT follow up. Signed: Jostin Gregory [facility] Verified Date/Time: 02/12/2018 19:43:32 Reading Location: [facility] Radiology Reading Room -GLUCOSE [id number] 19:01:00 Test Item Value Reference Range Interpretation Comments POC-GLUCOSE METER 362 mg/dL 70-110 H TESTED AT [facility] [address] ([facility]) (test code = CESAR Servin [facility] 1538) [address] EEG AWAKE AND [id number] 17:46:00Reason for exam:->SeizureShould this be performed at the bedside?->[facility] EEG REPORTDATE OF TEST: 47-2-0613WVPY OF REPORT: [id number]: [id number]: [id number] time: 14:04Stop time: 14:24ICD-10: R56.9CPT Code: 61386MEXWGOV: 40 y old 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, [...] of this report.Queenie Loco MD, PhDClinical Neurophysiology/Epilepsy AttendingAscension SE [facility] POCT-GLUCOSE [id number] 15:33:00 Test Item Value Reference Range Interpretation Comments POC-GLUCOSE METER 213 mg/dL 70-110 H TESTED AT [facility] [address] ([facility]) (test code = CESAR Servin [facility] 1538) [address] TSH/FREE T4 IF [id number] 09:35:00 Test Item Value Reference Range Interpretation Comments THYROID STIMULATING HORMONE 4.03 uIU/mL 0.35-4.94 (BEAKER) (test code = 772) HEMOGLOBIN [id number] 08:47:00 Test Item Value Reference Range Interpretation Comments HEMOGLOBIN A1C (BEAKER) (test code = 6.5 % 4.3-6.1 H 368) POCT-GLUCOSE [id number] 07:55:00 Test Item Value Reference Range Interpretation Comments POC-GLUCOSE METER 219 mg/dL 70-110 H TESTED AT [facility] 67 ([facility]) (test code = CESAR Servin [facility] 1538) [id number] 05:00:00 Test Item Value Reference Range Interpretation Comments MAGNESIUM (BEAKER) (test code = 2.1 mg/dL 1.6-2.6 627) BASIC METABOLIC [id number] 05:00:00 Test Item Value Reference Range Interpretation [...] PATIEN TS. CBC W/PLT COUNT & AUTO [id number] 04:40:00 Test Item Value Reference Range Interpretation [...] PERCENT (BEAKER) (test code = 2801) POCT-GLUCOSE [id number] 04:31:00 Test Item Value Reference Range Interpretation Comments POC-GLUCOSE METER 183 mg/dL 70-110 H TESTED AT [place] [address] ([facility]) (test code = CESAR Servin [facility] 1538) [address] RAD, ABDOMEN/KUB, 1 VIEW [id number] 01:33:00Reason for exam:->Abdominal distension, obtundationFINAL REPORT CLINICAL [...] in the pelvis. Signed: Amy De Leon [facility] Verified Date/Time: 02/12/2018 01:33:19 Reading Location: [address] Reading Room POCT-GLUCOSE METER 2018-02-12 00:49:00 Test Item Value Reference Range Interpretation Comments POC-GLUCOSE METER 346 mg/dL 70-110 H TESTED AT [place] [address] ([facility]) (test code = CESAR Servin [facility] 1538) [address] CBC W/PLT COUNT & AUTO [id number] 00:44:00 Test Item Value Reference Range Interpretation Comments WHITE BLOOD CELL COUNT ([facility]) 14.3 K/ L 3.5-10.5 H (test code = 775) RED BLOOD CELL COUNT ([facility]) 4.26 M/ L 4.63-6.08 L (test code = 761) HEMOGLOBIN (AKER) (test code = 13.8 GM/DL 13.7-17.5 410) HEMATOCRIT ([facility]) (test code = 42.1 % 40.1-51.0 411) MEAN CORPUSCULAR VOLUME ([facility]) 98.8 fL 79.0-92.2 H (test [...] (test code = 2801) RAPID DRUG SCREEN, [id number] 00:35:00 Test Item Value Reference Range Interpretation [...] situations. Chain of custody not maintained. Some dshy-mkh-bxxhany medications, as well as adulterants, may cause [...] acute neurological disease, and persistent tachyarrhythmia.COMPREHENSIVE METABOLIC [id number] 00:09:00 Test Item Value Reference Range Interpretation [...] APPLICABLE FOR DIALYSIS PATIEN TS. URINALYSIS W/ [id number] 00:06:00 Test Item Value Reference Range Interpretation [...] = Rare 1574) SOURCE(BEAKER) (test code = 1268) RAD, CHEST, 1 VIEW, NON [id number] 23:11:00Reason for exam:->Obtundation with coarse respirations, baselineShould this be performed at [facility]?->YesFINAL REPORT RAD, CHEST, 1 VIEW, NON DEPT INDICATION: Obtundation with coarse respirations, baseline COMPARISON: None. FINDINGS: Portable frontal view of the chest. IMPRESSION: Support Lines: None. Lungs and pleura: Clear lungs. No pneumothorax.Heart and mediastinum: Unremarkable.Additional findings: Fluid and gaseous distention of the gastric lumen. Signed: JR Lozano Robert [facility] Verified Date/Time: 02/11/2018 23:11:04 Reading Location: [address] Reading Room NM jessica perf SPECT rest and str [address] [address] Patient Name: Delilah Lazar Medical Record#: [id number] Address: [address] [place] [address] City/State/Zip: [place] [address]: Lucas Burkett MD Insurance: Self Pay /Age/Sex: 1975/47/M Admit/Reg Date: 12/04/[address]: Claire Wynn Location: [address] PCP: PcpMd WANDA Goodman Date of Service: 12/05/22 Order (s): NM jessica perfSPECT rest and str CPT Code: 83363 Report Number: [id number] Reason for Exam: ANGINA Electrocardiographic pharmacologic Lexiscan stress test is normal and is negative for stress- inducedmyocardial ischemia The study is performed as a 1 day rest stress protocol Technetium 99 M sestamibi 30 mCi were administered intravenously at stress and 10 mCi at rest Cardiac and gated SPECT images are obtained using standard technique and protocol All data is reviewed and compared Image quality is acceptable Cardiac SPECT is normal with homogeneous perfusion at stress and at rest and no significant perfusion abnormalities transient ischemic dilatation ratio was 0.94 Gated SPECT is normal with a normal-size left ventricle no segmental wall motion abnormality and a left ventricular ejection fraction that is 0.70 Impression: Normal pharmacologic Lexiscan stress Cardiolite Dictated By: Ramon Sanford MD 12/06/22946 Signed By: Ramon Sanford MD 12/06/22 0953 TD/TT: 12/06/22946 Tech: [id number] cc: [id number]; PCPNO* Ramon Sanford MD; Pcp-Md WANDA LeijaEKG [place] [address] Patient Name: Delilah Lazar Medical Record#: [id number] Address: [address] [place] [address] City/[facility]/Zip: [place] [address]: Lucas Burkett MD Insurance: Self Pay /Age/Sex: 1975/47/M Admit/Reg Date: 12/04/[address]: Lucas Burkett MD [facility] PCP: Md WANDA Hernandez Date of Service: 12/05/22 Order (s): EKG Electrocardiogram CPT Code: 68236 Report Number: [id number] Reason for Exam: chest pain Sinus bradycardia Some abnormalities no longer present Summary: Normal ECG except for rate Compared with:12/03/2022 9:06 PM R00.1 Dictated By: Ramon Sanford MD 12/05/22 1223 Signed By: Ramon Sanford MD 12/05/22 1730 TD/TT: 12/05/22 122 Tech: SVCCPACS cc: PCPNO; SINLU01* Lucas Burkett MD; Pcp-Md WANDA LeijaEcho TTE cmp w/[place]op [place] [address] Patient Name: Delilah Lazar Medical Record#: [id number] Address: [id number] [place] [address] City/State/Zip: [place] [address]: Lucas Burkett MD Insurance: Self Pay /Age/Sex: 1975/47/M Admit/Reg Date: 12/04/[address]: Claire Wynn Location: SJM5/EL257-W PCP: Pcp-Md WANDA Leija Date of Service: 12/04/22 Order (s): Echo TTE cmp w/dop wo contrast CPT Code: 68409 Report Number: [id number] Reason for Exam: angina TransthoracicEchocardiography Report (TTE) + + !Demographics ! + + Pa tient Name Evelyne Eddy Gender Male Race Unknown ([place] #) Visit NumberRoom Number [id number] MRN # Date of Study 12/05/2022 Accession Number [id number] Referring Physician Date of 1975 Smocker Triny Mcbride Age 47 year(s) Interpreting Ramon Curry M.D. Procedure Type of Study TTE procedure: Echo complete w doppler. Technical Quality: Good visualizationStudy Location: Portable Patient Status: Routine Height: 69 inchesWeight: 140 poundsBSA: 1.78 m 2BMI: 20.67 kg/m 2 HR: 57 bpm Conclusions Summary Normal LV size, no hypertrophy or segmental wall motion abnormality, inflow pattern is consistent with diastolic dysfunction. LVEF: 0.66-0.70. RV: Contracts normally. Normal LA and right cavities size. The inter atrial septum appears normal and intact. Normal function and appearance of all valves. Trace MR/TR/PI. RVSP: 29 mm. Hg. The visualized aorta and IVC appear normal. No evidence of pericardial or pleural effusion. No evidence of thrombus, mass or vegetation on the valves or in the heart cavities. Left Atrium LA Dimension: 3.1 cmLA/Aorta: 0.91 Left Ventricle Diastolic Dimension: 4.43 cm Systolic Dimension: 3.28 cm Septum Diastolic: 0.86 cm Septum Systolic: 1.03 cm PW Diastolic: 0.94 cm PW Systolic: 1.15 cm Area Diastolic: 24.3cm 2 Area Systolic: 15.4 cm 2 LV EDV/LV EDV Index: 70 ml/39 m 2 FS: 25.96 % EF Simpsons: 50.29% LV ESV/LV ESV Index: 34.8 ml/20 m 2 LV Length: 7.13 cm CO: 3.99 l/min CI: 2.24 l/min*m 2 LVOT Diameter: 2cm Right Atrium RA Systolic Pressure: 10 mmHg Right Ventricle RV Systolic Pressure: 19.86 mmHg Miscellaneous Aorta Aortic Root: 3.4 cm LVOT Diameter: 2 cm Mitral Valve Peak E-Wave: 77.5 cm/s Peak A-Wave : 70.7 cm/s E/A Ratio: 1.1 Peak Gradient: 2.4 mmHg MR Velocity: 485 cm/s MR VTI: 163 cm Aortic Valve Peak Velocity: 119 cm/s Mean Velocity: 90 cm/s Peak Gradient: 5.66 mmHg Mean Gradient: 3 mmHg Area (continuity): 2.49 cm 2 AV VTI: 28.1 cm Cusp Separation: 2.1 cm Tricuspid Valve Estimated RVSP: 29 mmHg Estimated RAP: 10 mmHg TR Velocity: 157 cm/s TR Gradient: 9.8596 mmHg Pulmonic Valve Estimated PASP: 19.86 mmHg NV ED Velocity: 108 cm/s LVOT Peak Velocity: 106 cm/s Mean Velocity: 70.3 cm/s Peak Gradient: 4 mmHg Mean Gradient: 2 mmHg LVOT Diameter: 2 cm LVOT VTI: 22.3 cm M-Mode/2D Measurements (cm) LVEDd: 4.43 cm LVESd: 3.28 cm IVSEd: 0.86 cm IVSEs: 1.03 cm LVPWd: 0.94 cm LVPWs: 1.15 cm AO Root Dimension: 3.4 cm ACS: 2.1 cm LA: 3.1 cm LVOT: 2 cm Dictated By: Ramon Sanford MD 12/05/221322 Signed By: Ramon Sanford MD 12/06/22 133 TD/TT:12/05/22 132 Tech: [facility]41 cc: [id number]; PCPNO* Ramon Sanford MD; PcpMd WANDA GoodmanUS gall bladder [facility] [address] [place] [address] Patient Name: Delilah Lazar Medical Record#: [id number] Address: [address] [place] [address] City/State/Zip: [place] [address]: Demetrice Mcgee MD Insurance: Self Pay /Age/Sex: 1975/47/M Admit/Reg Date: 12/04/[address]: Nirmala Segundo, [facility] Location: [facility] PCP: Md WANDA Hernandez Date of Service: 12/04/22 Order (s): US gall bladder CPT Code: 46017 Report Number: [id number] Reason for Exam: abdominal pain DICTATION LOCATION: H48 HISTORY: Male, 47 years of age with abdominal pain EXAM: ULTRASOUND OF THE RIGHT UPPER QUADRANT COMPARISON: CT abdomen and pelvis with contrast one hour ago TECHNIQUE: Real-time grayscale 2-D imaging, pulse wave Doppler with spectral analysis, and Doppler color flow imaging were performed with the variable megahertz curved array transducer transabdominally. STATEMENT: Exam quality is acceptable. FINDINGS: PANCREAS: Not imaged. GALLBLADDER: Gallbladder is nondistended. Several mobile shadowing s tones are seen in gallbladder lumen. Gallbladder wall mildly thickened at 3 mm. No pericholecystic COMMON BILE DUCT: 5.3 mm, normal caliber. LIVER: Normal in echogenicity. No focal mass or enlargement.Portal vein is patent with appropriatehepatopedal flow. RIGHT KIDNEY: Not imaged OTHER: There is no a scites. IMPRESSION: 1. Gallstones and mild gallbladder wall thickening. 2. No biliary dilatation. Electronically signed by: Karla Herrera MD 12/04/2022 2:57 AM CDT Dictated By: Karla Herrera MD 12/04/22215 Signed By: Karla Herrera MD 12/04/22299 TD/TT: 12/04/22215 Tech: SB251 cc: MALISSA; PCPNO* Nirmala Segundo PAC; Pcp-Md Heladio MDCT abdomen pelvis w contrast [facility] [address] [place] [address] Patient Name: Delilah Lazar Medical Record#: [id number] Address: [address] [place] [address] City/State/Zip: [place] [address]: Cesar Bryant DO Insurance: Self Pay /Age/Sex: 1975/47/M Admit/Reg Date: 12/03/[address]: Nirmala SegundoPAC Location: [facility]/ PCP: PcpMd WANDA Goodman Date of Service: 12/03/22 Order (s): CT abdomen pelvis w contrast CPT Code: 98632 Report Number: [id number] Reason for Exam: Abdominal Pain LOCATION: H48 HISTORY: Male, 47 years of age with Abdominal Pain EXAM: CT ABDOMEN AND PELVIS WITH IV CONTRAST COMPAR ARLENE: None relevant TECHNIQUE: Contrast: Nonionic IV contrast was given. No GI contrast was given. Portal venous phase: Abdomen and pelvis Delayed phase: None Reconstructions: Coronal and sagittal One or more of the following dose reduction techniques were used: Automated exposure control; adjustment of the mA and/or kV according to the patient size; and/or use of iterative reconstructiontechnique. FINDINGS: Statements: Exam quality is acceptable. Lower thorax: Heavy coronary artery calcifications are present. No focal infiltrate or pleural effusion. Hepatobiliary: Liver is diffusely fatty infiltrated. No hepatic mass or enlargement. Calcified stones seen in nondistended gallbladder. Gallbladder wall mildly thickened. No pericholecystic inflammation. No biliary dilation. Pancreas: Normal. Spleen:Normal. Adrenals: Normal. Genitourinary: No solid renal mass, significant cortical thinning, obviousrenal stone or hydronephrosis. Ureters are unremarkable. Urinary bladder is unremarkable. The visualized reproductive organs are unremarkable. Gastrointestinal: No bowel wall thickening, bowel obstruction or perienteric inflammation. The appendix is normal. Vascular: No aortic aneurysm or dissection. IVC is unremarkable. Portal vein is patent. Lymphatics: No enlarged lymph nodes by CT size criteria. B ones/Soft Tissues: No acute osseous findings. A right total hip replacement is present producing streak artifacts. No ventral hernias. Peritoneum/Other: No free intraperitoneal air. No free intraperitoneal fluid. IMPRESSION: 1. Gallstones and mild gallbladder wall thickening. 2. Hepatic steatosis. 3. No free fluid or free air. Electronically signed by: Karla Herrera MD 12/04/2022 1:47 AM CDT Dictated By: Karla Herrera MD 12/03/22111 Signed By: Karla Herrera MD 12/04/22 0149TD/TT: 12/03/22111 Tech: [facility] cc: ALBERTL; PCPNO* Nirmala Segundo, PAC; Pcp-None, MDEKG ED Electrocardiogram [facility] [address] [place] [address] Patient Name: Delilah Lazar Medical Record#: [id number] Address: [id number] [place] [address] City/State/Zip: [place] [address]: Lucas Burkett MD Insurance: Self Pay /Age/Sex: 1975/47/M Admit/Reg Date: 12/04/[address]: Nirmala Segundo PAC [facility] PCP: PcpMd WANDA Goodman Date of Service: 12/03/22 Order (s): EKG ED Electrocardiogram CPT Code: 51706 Report Number: [id number] Reason for Exam: chest pain Sinus rhythm Inferior/lateral T abnormality may be due to myocardial ischemia Summary: Abnormal ECG R06.02 Dictated By: Ramon Sanford MD 12/03/222105 Signed By: Ramon Sanford MD 12/05/221729 TD/TT: 12/03/222105 Tech: [facility] cc: MALISSA; PCPNO* Nirmala Segundo PAC; Pcp-Md Heladio MDXR chest 1V [facility] [address] [place] [address] Patient Name: Delilah Lazar Medical Record#: [id number] Address: City/State/Zip: Attending Dr: Cesar Bryant DO Phone: Insurance: Self Pay /Age/Sex: 1975/47/M Admit/Reg Date: 12/03/[address]: FELECIA Maddox Location: [facility]/ PCP: Date of Service: 12/03/22 Order (s): XR chest 1V CPT Code: 15180 Report Number: [id number] Reason for Exam: chest pain EXAMINATION: XR chest 1V CLINICAL INDICATION: Male, 47 years year old with chest pain COMPARISON: Chest radiograph 08/08/2022 FINDINGS: Single view(s) of the chest submitted. Support Devices: None. Heart:Cardiac silhouette is normal in size. Mediastinum: Mediastinal contours are within normal limits forage. Lungs: Lungs are well inflated. There is mild asymmetric airspace opacity in the left upper lung field. Pleura: No pleural effusion is identified. No pneumothorax is present. Bones: No acute osseous abnormality. IMPRESSION: Mild asymmetric airspace opacity in the left upper lung field concerningfor acute infiltrate in the appropriate clinical setting. Electronically signed by: Carrol Malhotra MD 10:11 PM CDT Dictated By: Carrol Malhotra MD 12/03/222136 Signed By: Carrol Malhotra MD 12/03/222212 TD/TT: 12/03/222136 Tech: [id number] cc: CLIFF Segundo, [facility]
[2023-03-19 17:39] LABS: Absolute Lymphocytes (CBC) 1.4 K/uL (0.7-4.9); Hematocrit 38.7 % (39.6-49.0); Lymphocytes % 10.3 % (15.3-44.8); MCV 86.9 fL (80-100); MPV 7.6 fL (7.6-11.3); Platelets 523 thou/uL (152-406); RBC Red Blood Cell Count 4.46 M/uL (4.33-5.43)
[2023-03-19 17:43] LABS: Protime INR 0.95
[2023-03-19] MEDS ORDERED: D5 0.9 NS 1,000 ML IV ONE (17:56)
[2023-03-19 17:57] LABS: Barbiturates NEGATIVE (NEGATIVE); Benzodiazepines NEGATIVE (NEGATIVE); Cocaine NEGATIVE (NEGATIVE); METHAMPHETAM NEGATIVE (NEGATIVE); Methadone NEGATIVE (NEGATIVE); Opiates NEGATIVE (NEGATIVE); Phencyclidine NEGATIVE (NEGATIVE); THC Cannibis NEGATIVE (NEGATIVE)
[2023-03-19 17:59] LABS: SARS-CoV-2 Antigen Rapid Res Negative (Negative)
[2023-03-19 18:03] LABS: Albumin 3.4 g/dL (3.4-5.0); Bilirubin Direct 0.1 mg/dL (0-0.2); Bilirubin Indirect, Calculated 0.2 mg/dL (0.2-0.8); Bilirubin Total 0.3 mg/dL (0.2-1.0); Potassium 3.2 mEq/L (3.5-5.1); Protein, Total 8.1 g/dL (6.4-8.2)
--- NOTE | 2023-03-19 18:18 | RAD REPORT ---
EXAM DESCRIPTION: CT - Head Brain Wo Cont - 03/19/2023 6:07 pm CLINICAL HISTORY: aphasia COMPARISON: July 2022 TECHNIQUE: Computed axial tomography of the head was obtained. IV contrast was not requested. All CT scans are performed using dose optimization technique as appropriate and may include automated exposure control or mA/KV adjustment according to patient size. FINDINGS: An intracranial bleed is not seen The ventricles are normal in caliber No extra-axial fluid collection is noted. No significant hypodensity within the brain. Chronic sinusitis IMPRESSION: No acute intracranial abnormality is seen If patient's symptoms persist MRI of the brain would be recommended
--- NOTE | 2023-03-19 18:46 | RAD REPORT ---
EXAM DESCRIPTION: Cody Single View03/19/2023 6:24 pm CLINICAL HISTORY: Chest pain COMPARISON: July 2022 FINDINGS: The lungs appear clear of acute infiltrate. The heart is normal size IMPRESSION: No acute abnormalities displayed
[2023-03-19] MEDS ORDERED: POTASSIUM CL SA 10 MEQ TAB PO ONE (20:00)
[2023-03-19] MEDS ORDERED: ACETAMINOPHEN 500 MG TAB ONE (20:15)
[2023-03-19] MEDS ORDERED: D10W 250 ML IV ONE (21:35)
--- NOTE | 2023-03-19 23:08 | ER ---
Nurse's Notes [facility] Name: Surjit Stubbs Age: 48 yrs Sex: Male : 1975 Arrival Date: 03/19/2023 Time: 17:10 Bed 19 Private MD: Diagnosis: Type 1 diabetes mellitus with hypoglycemia without coma Presentation: 03/19 17:14 Chief complaint: EMS states: toned out for chest pain. Coronavirus screen: At this ld1 time, the client does not indicate any symptoms associated with coronavirus-19. Ebola Screen: No symptoms or risks identified at this time. Initial Sepsis Screen: Does the patient meet any 2 criteria? No. Patient's initial sepsis screen is negative. Does the patient have a suspected source of infection? No. Patient's initial sepsis screen is negative. Risk Assessment: Do you want to hurt yourself or someone else? Patient reports no desire to harm self or others. Onset of symptoms was March 19, 2023. 17:14 Method Of Arrival: EMS: [facility] ld1 17:14 Acuity: TOI 3 ld1 Triage Assessment: 17:15 General: Appears in no apparent distress. uncomfortable, Behavior is calm, cooperative, ld1 appropriate for age. Pain: Complains of pain in chest Pain does not radiate. Pain currently is 6 out of 10 on a pain scale. Quality of pain is described as pressure, Pain began 4 hours ago. Is intermittent. EENT: No signs and/or symptoms were reported regarding the EENT system. Neuro: Level of Consciousness is awake, alert, obeys commands, Oriented to person, place, time, situation. Cardiovascular: Capillary refill < 3 seconds Patient's skin is warm and dry. Respiratory: Airway is patent Respiratory effort is even, unlabored. GI: Abdomen is flat, non-distended. : No signs and/or symptoms were reported regarding the genitourinary system. Derm: No signs and/or symptoms reported regarding the dermatologic system. Musculoskeletal: No signs and/or symptoms reported regarding the musculoskeletal system. Historical: - Allergies: 17:15 tramadol; ld1 - PMHx: 17:15 Diabetes - IDDM; High Cholesterol; Hypothyroidism; neuropathy; Seizures; Myocardial ld1 infarction; - Immunization history:: Adult Immunizations up to date. - Social history:: Smoking status: Patient reports the use of cigarette tobacco products, denies chronic smoking, but will smoke occasionally, Patient uses alcohol. Screenin:17 [facility] ED Fall Risk Assessment (Adult) History of falling in the last 3 months, ld1 including since admission No falls in past 3 months (0 pts). Abuse screen: Denies threats or abuse. Denies injuries from another. Nutritional screening: No deficits noted. Tuberculosis screening: No symptoms or risk factors identified. Assessment: 17:17 Reassessment: See triage assessment. ld1 18:29 Reassessment: Patient appears in no apparent distress at this time. Patient and/or tm6 family updated on plan of care and expected duration. Pain level reassessed. Patient is alert, oriented x 3, equal unlabored respirations, skin warm/dry/pink. 19:27 Reassessment: No changes from previously documented assessment. Patient and/or family vc1 updated on plan of care and expected duration. Pain level reassessed. Patient is alert, oriented x 3, equal unlabored respirations, skin warm/dry/pink. 20:00 Reassessment: Patient and/or family updated on plan of care and expected duration. Pain vc1 level reassessed. General: Appears in no apparent distress. Behavior is calm, cooperative. Neuro: Level of Consciousness is lethargic. 20:06 Reassessment: Pt given juice and 2 sandwiches for low blood sugar. vc1 21:38 Reassessment: Patient and/or family updated on plan of care and expected duration. Pain vc1 level reassessed. Patient is alert, oriented x 3, equal unlabored respirations, skin warm/dry/pink. Patient states symptoms have improved. 23:16 Reassessment: No changes from previously documented assessment. Patient and/or family vc1 updated on plan of care and expected duration. Pain level reassessed. Patient is alert, oriented x 3, equal unlabored respirations, skin warm/dry/pink. Vital Signs: 17:14 BP 163 / 97; Pulse 84; Resp 18; Temp 98.1(TE); Pulse Ox 100% on R/A; Weight 63.5 kg; ld1 Height 5 ft. 8 in. ; Pain 6/10; 17:50 BP 147 / 101; Pulse 80; Resp 20; Temp 98.1(TE); Pulse Ox 100% ; tm6 18:29 BP 124 / 79; Pulse 74; Resp 17; Pulse Ox 100% on R/A; tm6 19:00 BP 131 / 73; Pulse 81; Resp 17; Pulse Ox 100% ; vc1 20:00 BP 133 / 81; Pulse 89; Resp 16; Pulse Ox 100% ; vc1 21:00 BP 127 / 73; Pulse 65; Resp 16; Pulse Ox 100% ; vc1 22:00 BP 115 / 72; Pulse 65; Resp 16; Pulse Ox 100% ; vc1 23:00 BP 106 / 57; Pulse 65; Resp 16; Pulse Ox 100% ; vc1 17:14 Body Mass Index 21.29 (63.50 kg, 172.72 cm) ld1 17:14 Pain Scale: Adult ld1 ED Course: 17:14 Patient arrived in ED. ld1 17:15 Triage completed. ld1 17:15 Luz Cobb PA-C is PHCP. sb4 17:15 Nilay Michelle MD is Attending Physician. sb4 17:15 Arm band placed on right wrist. ld1 17:17 Patient has correct armband on for positive identification. Placed in gown. Bed in low ld1 position. Call light in reach. Side rails up X2. software tools engineer on. Pulse ox on. NIBP on. Door closed. Noise minimized. Warm blanket given. 17:17 No provider procedures requiring assistance completed. Patient maintains SpO2 ld1 saturation greater than 95% on room air. 17:17 Maintain EMS IV. Dressing intact. Good blood return noted. Site clean \T\ dry. Gauge \T\ ld 1 site: 20g RAC. 17:32 UDS Sent. ld1 17:32 Lipase Sent. ld1 17:32 ETOH Level Sent. ld1 17:32 Basic Metabolic Panel Sent. ld1 17:32 CBC with Diff Sent. ld1 17:32 LFT's Sent. ld1 17:32 Magnesium Sent. ld1 17:32 NT PRO-BNP Sent. ld1 17:32 PT-INR Sent. ld1 17:32 Troponin HS Sent. ld1 17:40 Flu Sent. ld1 17:40 SARS RAPID Sent. ld1 17:40 Lipase Sent. ld1 17:40 UDS Sent. ld1 17:44 Rob Elena, MELANIE is Primary Nurse. tm6 18:09 Head Brain Wo Cont CT In Process Unspecified. EDMS 18:25 XRAY Chest (1 view) In Process Unspecified. EDMS 23:08 Jose Nguyen MD is Hospitalizing Provider. sb4 23:42 Provided Education on: low blood sugar. vc1 23:42 Patient admitted, IV remains in place. vc1 Administered Medications: 17:50 Drug: D5-NS IV 1000 ml IV at 125 ml/hr continuous Route: IV; Rate: 125 ml/hr; Site: tm6 right antecubital; 19:50 Drug: Potassium Chloride PO 40 mEq PO once Route: PO; vc1 20:13 Follow up: Response: No adverse reaction vc1 20:05 Drug: Acetaminophen PO 1000 mg PO once Route: PO; vc1 21:25 Drug: D10 in Water IVP 250 ml IVP once Route: IVP; Site: right antecubital; vc1 21:40 Follow up: Response: No adverse reaction; Blood sugar is elevated vc1 Medication: 17:17 VIS not applicable for this client. ld1 Outcome: 23:08 Decision to Hospitalize by Provider. sb4 23:42 Condition: good vc1 23:42 Instructed on the need for admit, 03/20 00:32 Patient left the ED. kl Signatures: Dispatcher [employer] Kiya Vides RN RN kl Sims, Lauren RN RN ld1 Terri Saini RN RN 1 Luz Cobb PAMarysol PAMarysol sb4 Rob Elena RN RN tm6
--- NOTE | 2023-03-19 23:08 | EDPHYS ---
Physician Documentation [facility] Name: Surjit Stubbs Age: 48 yrs Sex: Male : 1975 Arrival Date: 03/19/2023 Time: 17:10 Bed 19 Private MD: ED Physician Nilay Michelle HPI: 03/19 17:20 This 48 yrs old Male presents to ER via EMS with complaints of Chest Pain. sb4 17:22 The patient or guardian reports chest pain that is located primarily in the substernal sb4 area. Onset: just prior to arrival. The pain does not radiate. Associated signs and symptoms: The patient has no apparent associated signs or symptoms. EMS care prior to arrival includes: aspirin, IV fluids. The patient has experienced similar episodes in the past, several times. The patient has been recently seen by a physician: in the hospital, 3 day(s) ago, with similar presenting complaints. 17:24 patient states he admitted at [facility] for chest pain and discharged 3 days ago. he is a sb4 poor historian and is not sure what all they did for him. he states he was having diarrhea then and received antibiotics, but is continuing to have diarrhea now. Historical: - Allergies: 17:15 tramadol; ld1 - PMHx: 17:15 Diabetes - IDDM; High Cholesterol; Hypothyroidism; neuropathy; Seizures; Myocardial ld1 infarction; - Immunization history:: Adult Immunizations up to date. - Social history:: Smoking status: Patient reports the use of cigarette tobacco products, denies chronic smoking, but will smoke occasionally, Patient uses alcohol. ROS: 17:24 Constitutional: Negative for fever, chills, and weight loss, sb4 17:24 Cardiovascular: Positive for chest pain, 17:24 Abdomen/GI: Positive for diarrhea, 17:24 All other systems are negative, Exam: 17:24 Constitutional: This is a well developed, well nourished patient who is awake, alert, sb4 and in no acute distress. Head/Face: Normocephalic, atraumatic. Eyes: Extra-ocular motions intact. Periorbital areas with no swelling, redness, or edema. ENT: Mucous membranes moist. Cardiovascular: Regular rate and rhythm with a normal S1 and S2. Respiratory: Lungs have equal breath sounds bilaterally, clear to auscultation and percussion. No rales, rhonchi or wheezes noted. No increased work of breathing, no retractions or nasal flaring. Abdomen/GI: Soft, non-tender, no distension. Skin: Warm, dry with normal turgor. Normal color with no rashes, no lesions, and no evidence of cellulitis. MS/ Extremity: Pulses equal, no cyanosis. Neurovascular intact. Full, normal range of motion. Neuro: Awake and alert, GCS 15, oriented to person, place, time, and situation. Motor strength 5/5 in all extremities. Sensory grossly intact. Vital Signs: 17:14 BP 163 / 97; Pulse 84; Resp 18; Temp 98.1(TE); Pulse Ox 100% on R/A; Weight 63.5 kg; ld1 Height 5 ft. 8 in. ; Pain 6/10; 17:50 BP 147 / 101; Pulse 80; Resp 20; Temp 98.1(TE); Pulse Ox 100% ; tm6 18:29 BP 124 / 79; Pulse 74; Resp 17; Pulse Ox 100% on R/A; tm6 19:00 BP 131 / 73; Pulse 81; Resp 17; Pulse Ox 100% ; vc1 20:00 BP 133 / 81; Pulse 89; Resp 16; Pulse Ox 100% ; vc1 21:00 BP 127 / 73; Pulse 65; Resp 16; Pulse Ox 100% ; vc1 22:00 BP 115 / 72; Pulse 65; Resp 16; Pulse Ox 100% ; vc1 23:00 BP 106 / 57; Pulse 65; Resp 16; Pulse Ox 100% ; vc1 17:14 Body Mass Index 21.29 (63.50 kg, 172.72 cm) ld1 17:14 Pain Scale: Adult ld1 MDM: 17:15 Patient medically screened. sb4 17:24 Differential diagnosis: chest wall pain, costochondritis, gastritis, gastroesophageal sb4 reflux disease (GERD), pericarditis, pleurisy, pneumonia, stable angina, unstable angina. 19:52 Scoring Tools HEART Score: History: ECG: Age: Risk Factors: > or = 3 Risk factors for sb4 atherosclerotic disease (2), Troponin: Total Score = 3. 03/20 00:43 Data reviewed: vital signs, nurses notes, lab test result(s), EKG, radiologic studies, sb4 I have discussed the patient's presentation/case with the attending Emergency Department Physician; and as a result, I will admit patient. Consideration of Admission/Observation Patient was admitted/placed on observation. Management of patient was discussed with the following: Hospitalist: Dr Nguyen, accepts patient. Care significantly affected by the following chronic conditions: Diabetes, Hypertension. Counseling: I had a detailed discussion with the patient and/or guardian regarding the historical points, exam findings, and any diagnostic results supporting the discharge/admit diagnosis, the presence of at least one elevated blood pressure reading (>120/80) during this emergency department visit, lab results, radiology results, the need for further work-up and treatment in the hospital. 03/19 17:16 Order name: Basic Metabolic Panel; Complete Time: 18:08 sb4 03/19 17:16 Order name: CBC with Diff; Complete Time: 17:46 sb4 03/19 17:16 Order name: LFT's; Complete Time: 18:08 sb4 03/19 17:16 Order name: Magnesium; Complete Time: 18:08 sb4 03/19 17:16 Order name: NT PRO-BNP; Complete Time: 18:08 sb4 03/19 17:16 Order name: PT-INR; Complete Time: 17:46 sb4 03/19 17:16 Order name: Troponin HS; Complete Time: 18:08 sb4 03/19 17:16 Order name: ETOH Level; Complete Time: 19:38 sb4 03/19 17:16 Order name: UDS; Complete Time: 17:58 sb4 03/19 17:16 Order name: Lipase; Complete Time: 18:08 sb4 03/19 17:23 Order name: SARS RAPID; Complete Time: 18:02 sb4 03/19 17:23 Order name: Flu; Complete Time: 18:08 sb4 03/19 19:35 Order name: Troponin High Sensitivity; Complete Time: 20:32 sb4 03/19 20:11 Order name: Glucose, Ancillary Testing; Complete Time: 20:12 EDMS 03/19 20:20 Order name: Glucose; Complete Time: 21:14 sb4 03/19 21:53 Order name: Glucose, Ancillary Testing; Complete Time: 21:57 EDMS 03/19 23:08 Order name: Glucose, Ancillary Testing; Complete Time: 23:09 EDMS 03/20 00:07 Order name: Basic Metabolic Panel EDMS 03/20 00:07 Order name: CBC with Automated Diff EDMS 03/20 00:07 Order name: Lipid Profile EDMS 03/20 00:07 Order name: Lipid Profile EDMS 03/20 00:07 Order name: Troponin High Sensitivity EDMS 03/20 00:07 Order name: Troponin High Sensitivity EDMS 03/20 00:07 Order name: Troponin High Sensitivity EDMS 03/20 00:09 Order name: Urinalysis W/Microscopic EDMS 03/19 17:16 Order name: XRAY Chest (1 view); Complete Time: 19:00 sb4 03/19 17:19 Order name: Head Brain Wo Cont CT; Complete Time: 18:25 sb4 03/20 00:07 Order name: Echo with Doppler EDMS 03/19 17:16 Order name: EKG; Complete Time: 17:18 sb4 03/19 17:16 Order name: Cardiac monitoring; Complete Time: 17:18 sb4 03/19 17:16 Order name: EKG - Nurse/Tech; Complete Time: 17:32 sb4 03/19 17:16 Order name: IV Saline Lock; Complete Time: 17:18 sb4 03/19 17:16 Order name: Labs collected and sent; Complete Time: 17:32 sb4 03/19 17:16 Order name: O2 Per Protocol; Complete Time: 17:18 sb4 03/19 17:16 Order name: O2 Sat Monitoring; Complete Time: 17:18 sb4 03/19 19:52 Order name: Accucheck; Complete Time: 20:00 sb4 03/19 22:40 Order name: Accucheck Blood Glucose; Complete Time: 23:14 sb4 EC/12 17:29 Rate is 85 beats/min. Rhythm is regular, Normal Sinus Rhythm. RI interval is normal at sb4 152 msec. QRS interval is normal at 72 msec. QT interval is normal at 466 msec. No Q waves. T waves are Normal. No ST changes noted. Clinical impression: Normal ECG. Interpreted by me. Reviewed by me. Administered Medications: 17:50 Drug: D5-NS IV 1000 ml IV at 125 ml/hr continuous Route: IV; Rate: 125 ml/hr; Site: tm6 right antecubital; 19:50 Drug: Potassium Chloride PO 40 mEq PO once Route: PO; vc1 20:13 Follow up: Response: No adverse reaction vc1 20:05 Drug: Acetaminophen PO 1000 mg PO once Route: PO; vc1 21:25 Drug: D10 in Water IVP 250 ml IVP once Route: IVP; Site: right antecubital; vc1 21:40 Follow up: Response: No adverse reaction; Blood sugar is elevated vc1 Disposition Summary: 03/19/23 23:08 Hospitalization Ordered Notes: Hospitalization Status: Observation sb4 Provider: Jose Nguyen sb4 Location: Telemetry/MedSurg (observation) sb4 Condition: Fair sb4 Problem: new sb4 Symptoms: are unchanged sb4 Bed/Room Type: Standard sb4 Room Assignment: 408(03/19/23 23:15) cg Diagnosis - Type 1 diabetes mellitus with hypoglycemia without coma sb4 Discharge Instructions: - Discharge Summary Sheet ll1 - Hypoglycemia sb4 - Nonspecific Chest Pain, Adult, [id number] sb4 Forms: - SBAR form ll1 - Medication Reconciliation Form sb4 - Leadership Thank You Letter sb4 Prescriptions: - Nitrostat 0.4 mg Sublingual Tablet, Sublingual - place 1 tablet SUBLINGUAL route one time As needed - at the first sign of an sb4 attack; no more than 3 tablets are recommended within a 15 minute period.; 25 tablet; Refills: 0, Product Selection Permitted Addendum: 03/21/2023 07:42 I was immediately available for consultation during this patient's visit. I did not e c2 personally see the patient or guide the patient's care.. Signatures: Dispatcher [employer] Florinda Yu RN RN cg Jammie Berg RN RN ld1 Terri Saini RN RN vc1 Luz Cobb, PAMarysol PAMarysol sb4 Nilay Michelle MD MD ec2 Rob Elena RN RN tm6 Corrections: (The following items were deleted from the chart) 03/19 19:54 19:52 Scoring Tools HEART Score: History: ECG: Age: Risk Factors: > or = 3 Risk factors sb4 for atherosclerotic disease (2), Troponin: Total Score = 3 sb4 23:15 23:08 sb4 cg
[2023-03-19] MEDS ORDERED: MORPHINE 4 MG/ML SYR IV PRN (23:59)
--- NOTE | 2023-03-20 00:13 | P.HP ---
Certification for Inpatient Patient admitted to: Observation With expected LOS: <2 Midnights Patient will require the following post-hospital care: None Practitioner: I am a practitioner with admitting privileges, knowledge of patient current condition, hospital course, and medical plan of care. Services: Services provided to patient in accordance with Admission requirements found in Title 42 Section 412.3 of the Code of Federal Regulations Patient History Date of Service: 03/20/23 Reason for admission: Hypoglycemia/atypical chest pain History of Present Illness: Patient is a 48-year-old gentleman comes the hospital with low blood sugars. He has had recurrent issues with this in the past. He does not really manage his blood sugars at well. He is not really sure if he took an extra dose of his insulin or not and he is tends to be really forgetful. He generally engages much information and he tends to mumble whenever he is getting his history to me. He looks very lethargic. We will do a urine drug screen as well. We will give him IV fluids. His blood sugars have improved but they have gone back down. I will put him in for observation. He is on insulin 70/30 at home. We will check A1c level. Once his blood sugar stabilized and his troponins are negative we should be able to discharge with outpatient follow-up. He states he has a history of coronary artery disease but there is nothing in the computer regarding this. I will go ahead and repeat his EKG and his troponins and get an echocardiogram. Anticipate discharge in the morning. Allergies tramadol Allergy (Verified 01/13/20 07:25) Nausea/Vomiting Home Medications: Multivitamin [Daily Multiple Vitamin] 1 tab PO DAILY 05/06/17 Glucagon,Human Recombinant [Glucagon Emergency Kit] 1 mg IM PRN PRN #5 vial 12/02/20 Insulin 70/30 NPH/Reg Human [Novolin 70/30*] 25 unit SQ BIDAC #10 ml 12/02/20 Pregabalin [Lyrica*] 100 mg PO BID #60 cap 12/02/20 Thiamine HCl [Vitamin B-1*] 100 mg PO DAILY #30 tablet 12/02/20 Thyroid Tab [[place] Thyroid*] 120 mg PO DAILY #30 tab 12/02/20 gemfibroziL [Lopid*] 600 mg PO BID #60 tab 12/02/20 Metoprolol Tartrate [Lopressor*] 25 mg PO BID 05/16/22 Nitroglycerin 0.4 mg SL PRN PRN 05/16/22 Pantoprazole [Protonix Tab*] 40 tab PO DAILY 05/16/22 clonazePAM [Klonopin] 0.5 mg PO TID PRN #60 tab 05/18/22 - Past Medical/Surgical History Diabetic: Yes -: Diabetes mellitus type 1 -: Hypothyroidism -: Hyperlipidemia -: Alcohol abuse -: neuropathy -: adenoidectomy Psychosocial/ Personal History: Patient currently lives at home alone - Family History Father Medical History: Heart disease, Diabetes - Social History Alcohol use: Yes CD- Drugs: No Caffeine use: Yes Review of Systems 10-point ROS is otherwise unremarkable Physical Examination - Vital Signs Temperature: 98 F Blood Pressure: 140/80 Pulse: 80 Respirations: 18 Pulse Ox (%): 95 - Physical Exam General: Alert, In no apparent distress, Oriented x3 HEENT: Atraumatic, PERRLA, Mucous membr. moist/pink, EOMI, Sclerae nonicteric Neck: Supple, 2+ carotid pulse no bruit, No LAD, Without JVD or thyroid abnormality Respiratory: Clear to auscultation bilaterally, Normal air movement Cardiovascular: Regular rate/rhythm, Normal S1 S2 Gastrointestinal: Normal bowel sounds, Soft and benign, Non-distended, No tenderness Musculoskeletal: No clubbing, No swelling, No tenderness Integumentary: No rashes Neurological: Normal gait, Normal speech, Normal strength at 5/5 x4 extr, Normal tone, Normal affect Lymphatics: No axilla or inguinal lymphadenopathy - Studies Laboratory Data (last 24 hrs) 03/19/23 03/19/23 03/19/23 19:48 17:27 17:27 WBC 14.00 H Hgb 12.8 L Hct 38.7 L Plt Count 523 H PT 10.5 INR 0.95 Sodium Potassium BUN Creatinine Glucose 38 L* Magnesium Total Bilirubin AST ALT Alkaline Phosphatase Lipase 03/19/23 17:27 WBC Hgb Hct Plt Count PT INR Sodium 139 Potassium 3.2 L BUN 14 Creatinine 0.84 Glucose 84 Magnesium 2.0 Total Bilirubin 0.3 AST 27 ALT 65 H Alkaline Phosphatase 83 Lipase 13 Microbiology Data (last 24 hrs): 03/19/23 17:38 Nasopharnyx Influenza Type A Antigen Screen - Final 03/19/23 17:38 Nasopharnyx Influenza Type B Antigen Screen - Final Assessment & Plan - Problems (Diagnosis) (1) Chest pain, rule out acute myocardial infarction Current Visit: Yes Status: Acute (2) Hypoglycemia Current Visit: No Status: Acute (3) Methamphetamine abuse Current Visit: No Status: Acute (4) Alcohol abuse Current Visit: No Status: Chronic (5) Hypothyroidism Current Visit: No Status: Chronic Qualifiers: - Plan Plan: 1. Continue with IV fluids with dextrose. We will give him a regular diet for the next 24 hours. Patient really has not been compliant with taking his insulin appropriately. He is got a history of polysubstance abuse including medical amphetamine use. Patient also has a history of alcohol abuse. We will do a urine drug screen as well. A1c level is pending. Anticipate discharge home in the morning 2. Vague complaints of chest discomfort. We will rule him out for acute coronary syndrome. Troponins are negative EKG is unremarkable. Echocardiogram pending. Outpatient follow-up. 3. GI DVT prophylaxis Discharge Plan: Home Plan to discharge in: 24 Hours - Advance Directives Does patient have a Living Will: No Does patient have a Durable POA for Healthcare: No - Code Status/Comfort Care Code Status Assessed: Yes Code Status: Full Code Critical Care: No Time Spent Managing PTS Care (In Minutes): 45
[2023-03-20] MEDS ORDERED: D10W 250 ML IV ONE (01:11)
[2023-03-20 01:28] VITALS: BMI 21.2
[2023-03-20 01:34] LABS: Troponin High Sensitivity 6.8 pg/mL (<58.9)
[2023-03-20] MEDS ORDERED: D10W 250 ML IV SCH (02:00)
[2023-03-20] MEDS: DEXTROSE 10%-WATER 500 ML IV SCH ×3 (02:40→19:51)
[2023-03-20 05:11] LABS: Absolute Lymphocytes (CBC) 2.8 K/uL (0.7-4.9); Hematocrit 36.9 % (39.6-49.0); Lymphocytes % 21.5 % (15.3-44.8); MCV 86.3 fL (80-100); MPV 7.9 fL (7.6-11.3); Platelets 486 thou/uL (152-406); RBC Red Blood Cell Count 4.28 M/uL (4.33-5.43)
[2023-03-20 05:31] LABS: Potassium 4.2 mEq/L (3.5-5.1); Troponin High Sensitivity 6.3 pg/mL (<58.9)
[2023-03-20] MEDS: ACETAMINOPHEN 500 MG TAB PO PRN (08:50)
[2023-03-20] MEDS: ENOXAPARIN 40 MG/0.4 ML SQ SCH (08:50)
[2023-03-20] MEDS: PREGABALIN 50 MG CAP PO SCH ×2 (08:51→19:52)
[2023-03-20] MEDS: ASPIRIN EC 81 MG TAB PO SCH (08:51)
[2023-03-20] MEDS: PANTOPRAZOLE 40MG TABLET PO SCH (08:51)
[2023-03-20] MEDS: METOPROLOL TAR 25 MG TAB PO SCH ×2 (08:54→19:53)
[2023-03-20 12:30] VITALS: O2SAT 100
[2023-03-20] MEDS ORDERED: D50W 25 GM/50 ML SYRINGE IV ONE (15:04)
[2023-03-20 15:55] LABS: Bilirubin Total 0.3 mg/dL (0.2-1.0); Potassium 3.5 mEq/L (3.5-5.1); Protein, Total 7.3 g/dL (6.4-8.2); Troponin High Sensitivity 4.6 pg/mL (<58.9)
[2023-03-20] MEDS ORDERED: D10W 100 ML IV SCH (16:58)
[2023-03-20] MEDS: ALPRAZOLAM 0.25 MG TABLET PO PRN (19:51)
[2023-03-20] MEDS: gemfibroziL 600 MG TAB PO SCH (19:53)
[2023-03-21] MEDS ORDERED: GLUCAGON 1 MG/VIAL IM STA (04:57)
[2023-03-21 06:59] LABS: Absolute Lymphocytes (CBC) 2.2 K/uL (0.7-4.9); Hematocrit 35.2 % (39.6-49.0); Lymphocytes % 12.3 % (15.3-44.8); MCV 87.7 fL (80-100); MPV 7.8 fL (7.6-11.3); Platelets 475 thou/uL (152-406); RBC Red Blood Cell Count 4.01 M/uL (4.33-5.43)
--- NOTE | 2023-03-21 07:04 | ECHO ---
HEIGHT: 5 ft 8 in WEIGHT: 140 lb 0 oz DATE OF STUDY: 03/20/[address]: Jose Nguyen MD 2-DIMENSIONAL: YES M.MODE: YES DOPPLER: YES COLOR FLOW: YES TDS: PORTABLE: YES DEFINITY: BUBBLE STUDY: DIAGNOSIS: CONGESTIVE HEART FAILURE CARDIAC HISTORY: CATHERIZATION: YES SURGERY: NO PROSTHETIC VALVE: NO PACEMAKER: NO MEASUREMENTS (cm) DIASTOLIC (NORMALS) SYSTOLIC (NORMALS) IVSd 1.0 (0.6-1.2) LA Diam 2.0 (1.9-4.0) LVEF 67% LVIDd 3.5 (3.5-5.7) LVIDs 2.3 (2.0-3.5) %FS 36% LVPWd 1.0 (0.6-1.2) Ao Diam 2.7 (2.0-3.7) 2 DIMENSIONAL ASSESSMENT: RIGHT ATRIUM: NORMAL LEFT ATRIUM: NORMAL RIGHT VENTRICLE: NORMAL SIZE AND FUNCTION LEFT VENTRICLE: NORMAL, 55-60% TRICUSPID VALVE: NORMAL MITRAL VALVE: NORMAL, MILD MITRAL REGURGITATION PULMONIC VALVE: NORMAL AORTIC VALVE: NORMAL PERICARDIAL EFFUSION: NONE AORTIC ROOT: NORMAL LEFT VENTRICULAR WALL MOTION: NORMAL DOPPLER/COLOR FLOW: COMMENTS: 1. NORMAL RIGHT VENTRICULAR SIZE AND FUNCTION 2. LEFT VENTRICULAR EJECTION FRACTION 55-60% 3. MILD MITRAL REGURGITATION TECHNOLOGIST: CLAY REED
[2023-03-21 07:12] LABS: Magnesium 2.3 mg/dL (1.6-2.4); Potassium 3.7 mEq/L (3.5-5.1)
[2023-03-21] MEDS: ASPIRIN EC 81 MG TAB PO SCH (08:21)
[2023-03-21] MEDS: METOPROLOL TAR 25 MG TAB PO SCH ×2 (08:22→19:56)
[2023-03-21] MEDS: gemfibroziL 600 MG TAB PO SCH ×2 (08:22→19:56)
[2023-03-21] MEDS: PREGABALIN 50 MG CAP PO SCH ×2 (08:22→19:55)
[2023-03-21] MEDS: ENOXAPARIN 40 MG/0.4 ML SQ SCH (08:22)
[2023-03-21] MEDS: PANTOPRAZOLE 40MG TABLET PO SCH (08:22)
[2023-03-21] MEDS: DEXTROSE 10%-WATER 500 ML IV SCH (11:50)
[2023-03-21] MEDS: ALPRAZOLAM 0.25 MG TABLET PO PRN ×2 (15:04→19:55)
--- NOTE | 2023-03-21 15:33 | RAD REPORT ---
EXAM DESCRIPTION: CT - Abdomen W/Wo Contrast - 03/21/2023 2:04 pm CLINICAL HISTORY: insulinoma COMPARISON: Head C Spine Cap Wo Con dated 04/13/2022 TECHNIQUE: Thin cut axial CT imaging of the abdomen and pelvis was performed before and after intrav enous administration of 100 mL Isovue-300. Multiplanar reformats were generated and reviewed. All CT scans are performed using dose optimization technique as appropriate and may include automated exposure control or mA/KV adjustment according to patient size. FINDINGS: No suspicious findings in the lung bases. Triangular left lower lobe 5 millimeter nodule, probably benign, stable. The liver, spleen, and adrenal glands show no suspicious findings. No focal pancreatic mass. Gallblad dayan is contracted and shows shows numerous stones, largest measuring 1.7 cm Symmetric renal contour, without suspicious parenchymal findings within limits of noncontrast techniq ue. No evidence of radiopaque calculi or hydroureteronephrosis. No dilated bowel loops or bowel wall thickening. No free air, free fluid or inflammatory stranding. N o hernia, mass or bulky lymphadenopathy. No suspicious bony findings. IMPRESSION: No suspicious pancreatic lesion. Contracted gallbladder with multiple calculi. Stable benign-appearing 5 millimeter left lower lobe lung nodule.
[2023-03-22] MEDS: DEXTROSE 10%-WATER 500 ML IV SCH (04:40)
--- NOTE | 2023-03-22 08:19 | P.PN ---
Subjective Date of Service: 03/22/23 Chief Complaint: Hypoglycemia/atypical chest pain Review of Systems 10-point ROS is otherwise unremarkable Physical Examination - Vital Signs Temperature: 97.3 F Blood Pressure: 140/78 Pulse: 59 Respirations: 16 Pulse Ox (%): 98 Assessment And Plan - Plan - Problems (Diagnosis) (1) Chest pain, rule out acute myocardial infarction-Acute Trend troponins, telemetry, echo (2) Hypoglycemia-Acute Accu-Chek ACHS, hypoglycemia protocol A1c monitor Continue with IV fluids with dextrose. (3) Methamphetamine abuse-Acute Educate on substance abuse cessation (4) Alcohol abuse-Chronic As needed Ativan, CIWA precautions (5) Hypothyroidism-Chronic Resume appropriate home meds Full code Diet cardiac DVT prophylaxis Discharge Plan: Home Plan to discharge in: 48 Hours - Code Status/Comfort Care Code Status: Full Code Physician Review: Patient Assessed, Agree with Above Assessment and Plan Critical Care: No Time Spent Managing PTS Care (In Minutes): 35
[2023-03-22] MEDS ORDERED: D50W 25 GM/50 ML SYRINGE IV PRN (08:26)
[2023-03-22] MEDS ORDERED: GLUCAGON 1 MG/VIAL IM PRN (08:26)
[2023-03-22] MEDS ORDERED: D10W 125 ML IV PRN (08:38)
[2023-03-22] MEDS: METOPROLOL TAR 25 MG TAB PO SCH (09:00)
[2023-03-22] MEDS: ENOXAPARIN 40 MG/0.4 ML SQ SCH (09:00)
[2023-03-22] MEDS: gemfibroziL 600 MG TAB PO SCH (09:14)
[2023-03-22] MEDS: PREGABALIN 50 MG CAP PO SCH (09:14)
[2023-03-22] MEDS: ASPIRIN EC 81 MG TAB PO SCH (09:14)
[2023-03-22] MEDS: PANTOPRAZOLE 40MG TABLET PO SCH (09:14)
[2023-03-22] MEDS: ALPRAZOLAM 0.25 MG TABLET PO PRN (09:19)
[2023-03-22] MEDS: ACETAMINOPHEN 500 MG TAB PO PRN (11:10)
[2023-03-22] MEDS ORDERED: INSULIN REGULAR (HUMAN) 100 UNIT/ML SQ SCH (11:30)
[2023-03-22 11:45] LABS: Absolute Lymphocytes (CBC) 1.3 K/uL (0.7-4.9); Hematocrit 36.5 % (39.6-49.0); Lymphocytes % 21.4 % (15.3-44.8); MCV 87.7 fL (80-100); Platelets 484 thou/uL (152-406); RBC Red Blood Cell Count 4.16 M/uL (4.33-5.43)
[2023-03-22 11:58] LABS: Potassium 4.4 mEq/L (3.5-5.1)
--- NOTE | 2023-03-22 13:08 | P.DS ---
Admission Date: 03/20/23 Discharge Date: 03/22/23 Disposition: ROUTINE DISCHARGE Discharge Condition: GOOD Reason for Admission: Hypoglycemia/atypical chest pain Brief History of Present Illness: 48-year-old gentleman comes the hospital with low blood sugars. He has had recurrent issues with this in the past. He does not really manage his blood sugars at well. He is not really sure if he took an extra dose of his insulin or not and he is tends to be really forgetful. He generally engages much information and he tends to mumble whenever he is getting his history to me. He looks very lethargic. We will do a urine drug screen as well. We will give him IV fluids. His blood sugars have improved but they have gone back down. I will put him in for observation. He is on insulin 70/30 at home. We will check A1c level. Once his blood sugar stabilized and his troponins are negative we should be able to discharge with outpatient follow-up. He states he has a history of coronary artery disease but there is nothing in the computer regarding this. I will go ahead and repeat his EKG and his troponins and get an echocardiogram. Anticipate discharge in the morning. Physical Exam General: Alert, In no apparent distress, Oriented x3 HEENT: Atraumatic, PERRLA, Mucous membr. moist/pink, EOMI, Sclerae nonicteric Neck: Supple, 2+ carotid pulse no bruit, No LAD, Without JVD or thyroid abnormality Respiratory: Clear to auscultation bilaterally, Normal air movement Cardiovascular: Regular rate/rhythm, Normal S1 S2 Gastrointestinal: Normal bowel sounds, Soft and benign, Non-distended, No tenderness Musculoskeletal: No clubbing, No swelling, No tenderness Integumentary: No rashes Neurological: Normal gait, Normal speech, Normal strength at 5/5 x4 extr, Normal tone, Normal affect Lymphatics: No axilla or inguinal lymphadenopathy Hospital Course: Lab evaluation BG 41 on arrival to ER, AIC 8.2, Mild lekocytosis, troponin 6.3, repeat 4.6, EKG Rate is 85 beats/min. Rhythm is regular, Normal Sinus Rhythm. [place] interval is normal at 52 msec. QRS interval is normal at 72 msec. QT interval is normal at 466 msec. No Q waves. T waves are Normal. No ST changes noted. Clinical impression: Normal ECG. Interpreted by me. Head CT MPRESSION: No acute intracranial abnormality is seen CXR IMPRESSION: No acute abnormalities displayed ABD CT MPRESSION: No suspicious pancreatic lesion. Contracted gallbladder with multiple calculi. Stable benign-appearing 5 millimeter left lower lobe lung nodule. - Problems (Diagnosis) (1) Chest pain, rule out acute myocardial infarction-Acute Trend troponins, telemetry, echo (2) Hypoglycemia-Acute Accu-Chek ACHS, hypoglycemia protocol A1c monitor Continue with IV fluids with dextrose. (3) Methamphetamine abuse-Acute Educate on substance abuse cessation (4) Alcohol abuse-Chronic As needed Ativan, CIWA precautions (5) Hypothyroidism-Chronic Resume appropriate home meds Vital Signs/Physical Exam: Temp Pulse Resp BP Pulse Ox 97.3 F 59 16 140/78 98 03/22/23 08:28 03/22/23 08:28 03/22/23 08:28 03/22/23 08:28 03/22/23 08:28 Laboratory Data at Discharge: WBC 6.10 thou/uL (4.3-10.9) 03/22/23 11:31 Hgb 12.3 g/dL (13.6-17.9) L 03/22/23 11:31 Hct 36.5 % (39.6-49.0) L 03/22/23 11:31 Plt Count 484 thou/uL (152-406) H 03/22/23 11:31 PT 10.5 SECONDS (9.5-12.5) 03/19/23 17:27 INR 0.95 03/19/23 17:27 Sodium 134 mEq/L (136-145) L 03/22/23 11:31 Potassium 4.4 mEq/L (3.5-5.1) 03/22/23 11:31 BUN 15 mg/dL (7-18) 03/22/23 11:31 Creatinine 0.99 mg/dL (0.70-1.30) 03/22/23 11:31 Glucose 340 mg/dL (74-106) H 03/22/23 11:31 Magnesium 2.3 mg/dL (1.6-2.4) 03/21/23 06:31 Total Bilirubin 0.3 mg/dL (0.2-1.0) 03/20/23 15:25 AST 26 U/L (15-37) 03/20/23 15:25 ALT 53 U/L (16-61) 03/20/23 15:25 Alkaline Phosphatase 74 U/L (45-117) 03/20/23 15:25 Triglycerides 173 mg/dL (<150) H 03/20/23 00:46 Cholesterol 126 mg/dL (<200) 03/20/23 00:46 HDL Cholesterol 42 mg/dL (40-60) 03/20/23 00:46 Cholesterol/HDL Ratio 3.00 03/20/23 00:46 Lipase 13 U/L (13-75) 03/19/23 17:27 Home Medications: Multivitamin [Daily Multiple Vitamin] 1 tab PO DAILY 05/06/17 Glucagon,Human Recombinant [Glucagon Emergency Kit] 1 mg IM PRN PRN #5 vial 12/02/20 Pregabalin [Lyrica*] 100 mg PO BID #60 cap 12/02/20 Thiamine HCl [Vitamin B-1*] 100 mg PO DAILY #30 tablet 12/02/20 Thyroid Tab [[place] Thyroid*] 120 mg PO DAILY #30 tab 12/02/20 gemfibroziL [Lopid*] 600 mg PO BID #60 tab 12/02/20 Metoprolol Tartrate [Lopressor*] 25 mg PO BID 05/16/22 Nitroglycerin 0.4 mg SL PRN PRN 05/16/22 Pantoprazole [Protonix Tab*] 40 tab PO DAILY 05/16/22 clonazePAM [Klonopin] 0.5 mg PO TID PRN #60 tab 05/18/22 Insulin Glargine,Hum.rec.anlog [Lantus] 15 unit SQ BEDTIME #2 vial 03/22/23 New Medications: Insulin Glargine,Hum.rec.anlog [Lantus] 15 unit SQ BEDTIME #2 vial Physician Discharge Instructions: PROBLEM: Chest Pain, Diabetes GOAL: Clear understanding of disease process INSTRUCTIONS: OK TO DC IV AND DC HOME FOLLOW-UP WITH PCP IN 1-2 WEEKS FOLLOW-UP WITH ENDOCRINOLOGY IN 1-2 WEEKS RETURN TO THE ER IF SYMPTOMS WORSENS Diet: ADA Activity: Fall precautions DME DME: Date Ordered: Name of Company: [employer] Services Needed: Name of Company: Date or Referral: IMMUNIZATION Influenza Vaccine Indicated: No Influenza Vaccine Given: Date Given: Pneumonia Vaccine Indicated: No Pneumonia Vaccine Given: Date Given: Diet: ADA Activity: Fall precautions Followup: NONE,NONE [Primary Care Provider] -
[2023-03-22 16:13] VITALS: BP 119/75; TEMP 98.1
--- NOTE | 2023-03-22 17:33 | EKG ---
Test Date: 2023-03-19 Test Time: 17:24:06 Continuous Loft Operator: KATHY MEASUREMENT RESULTS: Intervals: Rate: 85 CO: 152 QRSD: 72 QT: 392 QTc: 466 [place]: P: 42 CO: 152 QRS: 1 T: 60 INTERPRETIVE STATEMENTS: Normal sinus rhythm Normal ECG Compared to ECG 07/23/2022 11:47:28 Myocardial infarct finding no longer present ST (T wave) deviation no longer present Possible ischemia no longer present Electronically Signed On 03-22-23 17:25:11 MAINTENANCE MACHINIST by Aris Vaca
== END 2023-03-22 14:30 | disposition home or self-care (01) | DRG 639 ==
LOC: ER 17:10 → 4TH 03-20 → OBSVTOIN 03-20 19:04
PROVIDERS: ADMIT Hospitalist; ATTEND Hospitalist
DX: E10.649 Type 1 diabetes mellitus with hypoglycemia without coma (principal); E10.40 Type 1 diabetes mellitus with diabetic neuropathy, unspecified; E03.9 Hypothyroidism, unspecified; E78.00 Pure hypercholesterolemia, unspecified; F15.10 Other stimulant abuse, uncomplicated; F10.10 Alcohol abuse, uncomplicated; I25.10 Atherosclerotic heart disease of native coronary artery without angina pectoris; I25.2 Old myocardial infarction; F17.210 Nicotine dependence, cigarettes, uncomplicated; Z88.5 Allergy status to narcotic agent; Z60.2 Problems related to living alone; Z79.4 Long term (current) use of insulin; Z11.52 Encounter for screening for COVID-19; Z91.148 Patient's other noncompliance with medication regimen for other reason; Z79.899 Other long term (current) drug therapy
CPT/HCPCS: 36415; 70450; 71045; 74170; 80048; 80053; 80061; 80076; 80307; 82077; 82947; 83036; 83525; 83690; 83735; 83880; 84206; 84484; 84681; 85025; 85610; 87804; 87811; 93005; 93306; 96374; 99285; G0378; J1650; J7042; Q9967

== ENCOUNTER 2024-01-30 08:52 | Inpatient (IN) | payer SELFPAY ==
--- NOTE | 2024-01-30 09:15 | RAD REPORT ---
EXAM: CT brain without contrast HISTORY: Headache, drowsiness COMPARISON: 05/08/2023, 05/07/2023 TECHNIQUE: Multiple contiguous axial images were obtained and a CT of the brain without contrast. Sag ittal and coronal reformats were performed. FINDINGS: No evidence of hydrocephalus, intracranial hemorrhage, or extra-axial fluid collection. The brain is normal in morphology. No evidence of midline shift or areas of brain edema. The calvarium is intact. Chronic right maxillary sinus opacification. IMPRESSION: No evidence of acute intracranial abnormality.
[2024-01-30 09:24] LABS: Absolute Eosinophils 0.1 K/uL (0-0.5); Absolute Monocytes 0.4 K/uL (0.1-1.3); Absolute Neutrophil 4.4 K/uL (1.8-8.0); Basophils % 0.7 % (0-1.3); Hematocrit 38.4 % (39.6-49.0); Hemoglobin 13.2 g/dL (13.6-17.9); Lymphocytes % 16.3 % (15.3-44.8); MCH 30.6 pg (27.0-35.0); MCHC 34.3 g/dL (32.0-36.0); MCV 89.1 fL (80-100); MPV 8.2 fL (7.6-11.3); Monocytes % 6.9 % (3.3-12.3); Neutrophils % 74.1 % (41.7-73.7); Nucleated Red Blood Cells % 0.1 % (0-0); Platelets 291 thou/uL (152-406); RBC Red Blood Cell Count 4.31 M/uL (4.33-5.43); Red Cell Distribution Width 13.9 % (12.1-15.2)
[2024-01-30 10:15] LABS: Albumin 3.5 g/dL (3.4-5.0); Albumin/Globulin Ratio 1.2 (1.1-1.8); Anion Gap 10.6 mEq/L (5.0-15.0); Bilirubin Total 0.6 mg/dL (0.2-1.0); Globulin 2.9 g/dL (2.3-3.5); Potassium 3.6 mEq/L (3.5-5.1); Protein, Total 6.4 g/dL (6.4-8.2)
--- NOTE | 2024-01-30 10:28 | RAD REPORT ---
EXAMINATION: XR LEFT ANKLE CLINICAL INDICATION: Male, 49 years old. [facility] MAIN PAIN Bed Name: 2 TECHNIQUE: 3 view radiograph of the left ankle were obtained. COMPARISON: No prior exam. FINDINGS: Hardware is present in the ankle including a syndesmotic screw. Soft tissue swelling seen m edially. There is a fracture of the medial malleolus noted, age indeterminate but could be acute.
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
--- NOTE | 2024-01-30 10:37 | RAD REPORT ---
EXAMINATION: ONE VIEW CHEST XR CLINICAL INDICATION: Male, 49 years old. CHEST PAIN. [facility] MAIN CHEST PAIN Bed Name: 2 TECHNIQUE: Frontal chest projection is submitted. Examination is limited by patient positioning and t echnique. COMPARISON: 01/29/2024, 05/03/2023 FINDINGS: Prominent interstitial markings bilaterally are nonspecific but could indicate mild interstitial torey a or bronchitis/asthma. The heart is upper limit of normal in size. No displaced fractures identified. IMPRESSION: Mild CHF versus bronchitis pattern.
[2024-01-30 12:36] VITALS: BMI 22.1
[2024-01-30] MEDS ORDERED: ONDANSETRON 4 MG/2 ML VIAL IV PRN (13:49)
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
[2024-01-30] MEDS: NA CHLORIDE 0.9% 1,000 ML IV SCH (14:21)
[2024-01-30] MEDS: ACETAMINOPHEN 325 MG TABLET PO PRN (17:03)
[2024-01-30] MEDS ORDERED: GLUCAGON 1 MG/VIAL IM PRN (22:08)
[2024-01-30] MEDS: INSULIN REGULAR (HUMAN) 100 UNIT/ML SQ SCH (22:18)
[2024-01-31 04:38] LABS: Absolute Basophils 0.1 K/uL (0-0.5); Absolute Eosinophils 0.3 K/uL (0-0.5); Absolute Lymphocytes (CBC) 1.6 K/uL (0.7-4.9); Absolute Monocytes 0.5 K/uL (0.1-1.3); Absolute Neutrophil 3.4 K/uL (1.8-8.0); Basophils % 0.9 % (0-1.3); Eosinophils % 5.6 % (0-4.4); Hemoglobin 11.6 g/dL (13.6-17.9); Lymphocytes % 27.6 % (15.3-44.8); MCH 30.8 pg (27.0-35.0); MCHC 34.2 g/dL (32.0-36.0); MCV 89.9 fL (80-100); MPV 8.4 fL (7.6-11.3); Monocytes % 8.3 % (3.3-12.3); Neutrophils % 57.6 % (41.7-73.7); Nucleated Red Blood Cells % 0.1 % (0-0); Platelets 264 thou/uL (152-406); RBC Red Blood Cell Count 3.78 M/uL (4.33-5.43); Red Cell Distribution Width 13.9 % (12.1-15.2)
[2024-01-31 05:02] LABS: Albumin 2.8 g/dL (3.4-5.0); Albumin/Globulin Ratio 1.1 (1.1-1.8); Anion Gap 6.8 mEq/L (5.0-15.0); Bilirubin Total 0.4 mg/dL (0.2-1.0); Globulin 2.5 g/dL (2.3-3.5); Potassium 2.8 mEq/L (3.5-5.1); Protein, Total 5.3 g/dL (6.4-8.2)
[2024-01-31] MEDS: D10W 125 ML IV PRN (05:49)
[2024-01-31] MEDS: KCL 20 MEQ/100 mL IVPB 20 MEQ/100 ML BAG IV SCH (07:00)
[2024-01-31] MEDS ORDERED: INSULIN REGULAR (HUMAN) 100 UNIT/ML SQ SCH (07:30)
[2024-01-31] MEDS: POTASSIUM 25 MEQ EFFERV TAB PO SCH (08:16)
[2024-01-31] MEDS: ENOXAPARIN 40 MG/0.4 ML SQ SCH (08:20)
[2024-01-31] MEDS: FAMOTIDINE 20 MG/2 ML VIAL IV ONE (10:15)
--- NOTE | 2024-01-31 13:49 | EKG ---
Test Date: 2024-01-30 Test Time: 08:58:00 Game Operator: NIEVES MEASUREMENT RESULTS: Intervals: Rate: 75 KS: 140 QRSD: 72 QT: 418 QTc: 466 [place]: P: 57 KS: 140 QRS: 28 T: 72 INTERPRETIVE STATEMENTS: Normal sinus rhythm Normal ECG Compared to ECG 01/29/2024 18:24:42 No significant changes Electronically Signed On 01-31-24 13:09:13 CDT by Manav Lua
--- NOTE | 2024-01-31 15:52 | P.PN ---
Date of Service: 01/31/24 Subjective: Was hypoglycemic this morning Reported giving himself his own 30 units of long-acting insulin last night Counseled on allowing staff to administer insulin as ordered Denies HI/SI ROS: 10 point ROS as noted above, otherwise negative Physical exam GEN: Alert, oriented, NAD HEENT: Normal conjunctiva, sclera anicteric CV: Regular rate and rhythm, no edema Pulm: Nonlabored respirations on room air ABD: Soft, nontender, nondistended MSK: No joint tenderness Integumentary: No rashes Neuro: Normal speech, normal affect Vitals reviewed Assessment: Diabetes mellitus type 1 with hypoglycemia Depression History of seizure disorder History of chronic systolic congestive heart failure Plan: Diabetes mellitus type 1 with hypoglycemia Every 4 hour Accu-Cheks today Encourage oral intake Reviewed patient's insulin regimen A1c less than 7 Patient had been administering his own insulin during hospitalization Counseled patient extensively to allow staff to manage his insulin during his hospitalization especially given his persistent hypoglycemia Patient initially agreeable although seems to go back and forth with staff Will try giving reduced dose of long-acting insulin this evening at 15 units Depression Had a visit in May with SI Was transferred to [facility] at that time He denies active SI/HI but does report thoughts of harming himself yesterday without a plan Denies HI/SI now History of seizure disorder History of chronic systolic congestive heart failure Stable, does not take any medications at home currently DVT PPX: Lovenox Code status: Full Discharge Plan: Home Time Spent Managing Pts Care (In Minutes): 35
[2024-01-31] MEDS: HYDROCODONE/APAP 5/325 MG TAB PO PRN (17:00)
[2024-01-31] MEDS: INSULIN GLARGINE 100 UNIT/ML SQ SCH (21:00)
[2024-02-01 06:08] LABS: Absolute Basophils 0.1 K/uL (0-0.5); Absolute Eosinophils 0.4 K/uL (0-0.5); Absolute Monocytes 0.6 K/uL (0.1-1.3); Basophils % 1.2 % (0-1.3); Eosinophils % 6.1 % (0-4.4); Hemoglobin 12.9 g/dL (13.6-17.9); Lymphocytes % 33.7 % (15.3-44.8); MCH 29.9 pg (27.0-35.0); MCHC 32.9 g/dL (32.0-36.0); MCV 90.9 fL (80-100); MPV 9.2 fL (7.6-11.3); Monocytes % 9.7 % (3.3-12.3); Neutrophils % 49.3 % (41.7-73.7); Nucleated Red Blood Cells % 0.1 % (0-0); Platelets 255 thou/uL (152-406); Red Cell Distribution Width 13.8 % (12.1-15.2)
[2024-02-01 06:23] LABS: Albumin 2.8 g/dL (3.4-5.0); Anion Gap 3.2 mEq/L (5.0-15.0); Bilirubin Total 0.4 mg/dL (0.2-1.0); Globulin 2.8 g/dL (2.3-3.5); Potassium 3.2 mEq/L (3.5-5.1); Protein, Total 5.6 g/dL (6.4-8.2)
[2024-02-01] MEDS: LOPERAMIDE HCL 2 MG CAPSULE PO STA (15:32)
--- NOTE | 2024-02-01 17:44 | P.PN ---
Date of Service: 02/01/24 Subjective: Was hypoglycemic this morning Reported giving himself his own 30 units of long-acting insulin last night Counseled on allowing staff to administer insulin as ordered Denies HI/SI removed patient's insulin from his room ROS: 10 point ROS as noted above, otherwise negative Physical exam GEN: Alert, oriented, NAD HEENT: Normal conjunctiva, sclera anicteric CV: Regular rate and rhythm, no edema Pulm: Nonlabored respirations on room air ABD: Soft, nontender, nondistended MSK: No joint tenderness Integumentary: No rashes Neuro: Normal speech, normal affect Vitals reviewed Assessment: Diabetes mellitus type 1 with hypoglycemia Depression History of seizure disorder History of chronic systolic congestive heart failure Plan: Diabetes mellitus type 1 with hypoglycemia Every 4 hour Accu-Cheks today Encourage oral intake Reviewed patient's insulin regimen A1c less than 7 Patient had been administering his own insulin during hospitalization Counseled patient extensively to allow staff to manage his insulin during his hospitalization especially given his persistent hypoglycemia Removed insulin from patients room today Patient initially agreeable although seems to go back and forth with staff Will try giving reduced dose of long-acting insulin this evening at 20 units Depression Had a visit in May with SI Was transferred to [facility] at that time He denies active SI/HI but does report thoughts of harming himself yesterday without a plan Denies HI/SI now History of seizure disorder History of chronic systolic congestive heart failure stable, does take home meds but prefers to take his own DVT PPX: Lovenox Code status: Full Discharge Plan: Home Time Spent Managing Pts Care (In Minutes): 35
[2024-02-01] MEDS: INSULIN GLARGINE 100 UNIT/ML SQ SCH (21:00)
[2024-02-02 00:12] VITALS: O2SAT 96
[2024-02-02 02:02] VITALS: TEMP 98.3
[2024-02-02 10:54] VITALS: BP 145/75
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
== END 2024-02-02 10:59 | disposition home or self-care (01) | DRG 637 ==
LOC: ER 08:52 → 2ND 10:43 → OBSVTOIN 01-31 15:22
PROVIDERS: ADMIT Hospitalist; ATTEND Hospitalist
DX: E10.649 Type 1 diabetes mellitus with hypoglycemia without coma (principal); G93.41 Metabolic encephalopathy; I50.22 Chronic systolic (congestive) heart failure; Z59.00 Homelessness unspecified; E03.9 Hypothyroidism, unspecified; F32.A Depression, unspecified; E78.00 Pure hypercholesterolemia, unspecified; E10.40 Type 1 diabetes mellitus with diabetic neuropathy, unspecified; I25.2 Old myocardial infarction; F17.200 Nicotine dependence, unspecified, uncomplicated; Z88.5 Allergy status to narcotic agent; Z95.5 Presence of coronary angioplasty implant and graft; Z79.4 Long term (current) use of insulin; Z79.84 Long term (current) use of oral hypoglycemic drugs; Z79.02 Long term (current) use of antithrombotics/antiplatelets; Z79.899 Other long term (current) drug therapy
CPT/HCPCS: 36415; 70450; 71045; 80053; 82947; 83036; 84484; 85025; 93005; 99284; G0378; J1650; J7030

== ENCOUNTER 2024-04-13 16:30 | Emergency (ER) | payer SELFPAY ==
[2024-04-13] MEDS ORDERED: HYDROCODONE/APAP 10/325 TAB ONE (16:54)
[2024-04-13] MEDS ORDERED: KETOROLAC 30 MG/ML INJ ONE (16:54)
--- NOTE | 2024-04-13 17:51 | RAD REPORT ---
EXAMINATION: Ankle Left 3 View CLINICAL INDICATION: Male, 49 years old. PAIN COMPARISON: 01/30/2024 FINDINGS: No acute fracture. Remote right medial malleolar fracture with similar alignment to 01/30/2024. Distal fibular in transit syndesmotic screws. No malalignment/dislocation. No significant focal degenerative change. Other: n/a IMPRESSION: No acute osseous abnormality. Intact hardware. Remote medial malleolar fracture.
--- NOTE | 2024-04-13 18:00 | RAD REPORT ---
Extremity Venous Uni Ltd CLINICAL INDICATION: Male, 49 years old.PAIN TECHNIQUE: Complete duplex sonography of the lower extremity veins was performed of the affected limb . The examination included compression for vein patency, color Doppler imaging and flow augmentation in response to distal compression of the distal external iliac, common femoral, femoral, popliteal, peroneal, tibial and great saphenous veins. [id number]. COMPARISON: No prior exams FINDINGS: In the lumen of the left common femoral vein, a small eccentric echogenic focus is present. The vein is nearly completely compressible. The remaining deep veins in the left lower extremity are completely compressible and without abnormality on either waterman scale or color Doppler. IMPRESSION: No acute DVT in the left lower extremity. Small eccentric filling defect in the left common femoral v ein has the appearance of a chronic thrombus.
--- NOTE | 2024-04-13 18:32 | ER ---
Nurse's Notes [facility] Name: Surjit Stubbs Age: 49 yrs Sex: Male : 1975 Arrival Date: 04/13/2024 Time: 16:30 Bed 8 Private MD: Diagnosis: Pain in left ankle and joints of left foot Presentation: 04/13 16:37 Chief complaint: EMS states: Left ankle pain x 2 weeks, had surgery last July, denies hb new injury. Toradol 15 mg, Zofran 4 mg, and NS 250 ml administered to 20g LFA INSTRUCTIONAL FACILITATOR. Coronavirus screen: At this time, the client does not indicate any symptoms associated with coronavirus-19. Ebola Screen: No symptoms or risks identified at this time. Initial Sepsis Screen: Does the patient meet any 2 criteria? No. Patient's initial sepsis screen is negative. Does the patient have a suspected source of infection? No. Patient's initial sepsis screen is negative. Risk Assessment: Do you want to hurt yourself or someone else? Patient reports no desire to harm self or others. Onset of symptoms is unknown. 16:37 Method Of Arrival: EMS: [facility] 16:37 Acuity: TOI 3 hb Triage Assessment: 19:34 General: Behavior is calm, cooperative. bm8 Historical: - Allergies: 16:41 tramadol; hb - PMHx: 16:41 drug abuse; Diabetes - IDDM; High Cholesterol; Hypothyroidism; Myocardial infarction; hb neuropathy; Seizures; - PSHx: 16:41 cardiac stent; hb - Immunization history:: Adult Immunizations up to date. - Infectious Disease History:: Denies. - Family history:: not pertinent. - Hospitalizations: : No recent hospitalization is reported. - Social history:: Smoking status: Patient reports the use of cigarette tobacco products. Screenin:31 [facility] ED Fall Risk Assessment (Adult) History of falling in the last 3 months, bm8 including since admission Yes- single mechanical fall (1 pt) Confusion or Disorientation No (0 pts) Intoxicated or Sedated No (0 pts) Impaired Gait No (0 pts) Mobility Assist Device Used No (0 pt) Altered Elimination No (0 pt) Score/Fall Risk Level 0 - 2 = Low Risk Oriented to surroundings, Maintained a safe environment, Educated pt \T\ family on fall prevention, incl call for assistance when getting out of bed, Assessed \T\ reinforced patient's understanding of fall precautions, Hourly rounding (assess needs \T\ fall precautionary measures) done, Used ambulatory aids as needed (educated on \T\ assisted with), Used gait belt as appropriate. Abuse screen: Denies threats or abuse. Nutritional screening: No deficits noted. Tuberculosis screening: No symptoms or risk factors identified. Assessment: 17:00 General: Appears comfortable, Behavior is calm, cooperative. Pain: Complains of pain in aa5 left ankle Pain currently is 5 out of 10 on a pain scale. Neuro: Level of Consciousness is awake, alert, obeys commands, Oriented to person, place, time, situation. Cardiovascular: Patient's skin is warm and dry. Respiratory: Airway is patent Respiratory effort is even, unlabored, Respiratory pattern is regular, symmetrical. GI: No signs and/or symptoms were reported involving the gastrointestinal system. : No signs and/or symptoms were reported regarding the genitourinary system. EENT: No signs and/or symptoms were reported regarding the EENT system. Derm: Skin is pink, warm \T\ dry. Musculoskeletal: Range of motion: intact in all extremities, Reports pain in left ankle, no swelling noted. 19:31 Reassessment: Patient appears in no apparent distress at this time. Patient and/or bm8 family updated on plan of care and expected duration. Pain level reassessed. Patient is alert, oriented x 3, equal unlabored respirations, skin warm/dry/pink. General: Appears in no apparent distress. comfortable. 19:31 Pain: Complains of pain in left ankle Pain currently is 5 out of 10 on a pain scale. bm8 Neuro: No deficits noted. Level of Consciousness is awake, alert, obeys commands, Oriented to person, place, time, situation, Appropriate for age. Cardiovascular: No deficits noted. Capillary refill < 3 seconds in bilateral fingers Patient's skin is warm and dry. Respiratory: No deficits noted. Airway is patent Respiratory effort is even, unlabored, Respiratory pattern is regular, symmetrical, Breath sounds are clear bilaterally. GI: No signs and/or symptoms were reported involving the gastrointestinal system. : No signs and/or symptoms were reported regarding the genitourinary system. EENT: No signs and/or symptoms were reported regarding the EENT system. Derm: No signs and/or symptoms reported regarding the dermatologic system. Musculoskeletal: Reports pain in left ankle. 19:31 Reassessment: pt delined stevie wrap and crutches fo departure. bm8 Vital Signs: 16:37 BP 155 / 94; Pulse 68; Resp 16; Temp 98.2; Pulse Ox 100% on R/A; Weight 65.77 kg; hb Height 5 ft. 9 in. ; Pain 7/10; 17:00 BP 142 / 86; Pulse 73; Resp 16 S; Pulse Ox 99% on R/A; aa5 19:31 BP 135 / 90; Pulse 65; Resp 17; Temp 98.2; Pulse Ox 100% ; Pain 5/10; bm8 16:37 Body Mass Index 21.41 (65.77 kg, 175.26 cm) hb 16:37 Pain Scale: Adult hb 19:31 Pain Scale: Adult bm8 Gómez Coma Score: 19:31 Eye Response: spontaneous(4). Motor Response: obeys commands(6). Verbal Response: bm8 oriented(5). Total: 15. ED Course: 16:36 Patient arrived in ED. hb 16:41 Triage completed. hb 16:42 Frankie Wick MD is Attending Physician. rn 16:43 Shasta Read RN is Primary Nurse. aa5 17:00 Patient has correct armband on for positive identification. Bed in low position. Call aa5 light in reach. Side rails up X 1. Pulse ox on. NIBP on. 17:45 XRAY Ankle LEFT 3 view In Process Unspecified. EDMS 17:55 Extremity Venous Uni Ltd In Process Unspecified. EDMS 19:00 Report given to MELANIE Dunbar. aa5 19:19 IV discontinued, intact, bleeding controlled, No redness/swelling at site. Pressure hw dressing applied. 19:20 Stevie wrap to left ankle. hw 19:31 No provider procedures requiring assistance completed. bm8 19:31 Patient has correct armband on for positive identification. Bed in low position. Call bm8 light in reach. Side rails up X 1. Provided Education on: post er care. Client placed on continuous cardiac and pulse oximetry monitoring. NIBP monitoring applied. Pulse ox on. NIBP on. Door closed. Noise minimized. Verbal reassurance given. Head of bed. 19:34 IV discontinued, intact, bleeding controlled, No redness/swelling at site. Pressure bm8 dressing applied. 19:34 Arm band placed on right wrist. bm8 Administered Medications: 17:02 Not Given (Physician changed order ): [id number] mg IM once aa5 17:03 Drug: [place] PO 10 mg-325 mg 1 tabs PO once Route: PO; aa5 19:39 Follow up: Response: No adverse reaction bm8 17:03 Drug: Ketorolac IVP 30 mg IVP once Route: IVP; Site: left forearm; aa5 19:39 Follow up: Response: No adverse reaction bm8 19:31 Drug: HYDROcodone-acetaminophen PO 5 mg-325 mg 1 tabs PO once Route: PO; bm8 19:39 Follow up: Response: No adverse reaction bm8 Medication: 19:31 VIS not applicable for this client. bm8 Outcome: 18:31 Discharge ordered by . rn 19:31 Discharged to home ambulatory, bm8 19:31 Condition: stable 19:31 Discharge instructions given to patient, Instructed on discharge instructions, follow up and referral plans. medication usage, safety practices, Demonstrated understanding of instructions, follow-up care, medications, Prescriptions given X 1, 19:38 Patient left the ED. bm8 Signatures: Dispatcher [employer] EDMS Frankie Wick MD MD rn Calderon, Audri RN RN aa5 Malissa Bates, Manjinder Montalvo RN, RN RN bm8 Ingrid Contreras
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
[2024-04-13] MEDS ORDERED: HYDROCODONE/APAP 5/325 MG TAB ONE (19:17)
[2024-04-13 23:34] VITALS: TEMP 98.2; O2SAT 100
[2024-04-13 23:35] VITALS: BP 135/90
== END 2024-04-13 19:38 | disposition home or self-care (01) ==
LOC: ER 16:30
DX: M25.572 Pain in left ankle and joints of left foot (principal)
CPT/HCPCS: 93971; 96374; 99284

== ENCOUNTER 2024-06-28 17:05 | Emergency (ER) | payer OTHER ==
[2024-06-28] MEDS ORDERED: NA CHLORIDE 0.9% 500 ML ONE (17:26)
[2024-06-28] MEDS ORDERED: D50W 25 GM/50 ML SYRINGE IV ONE (17:26)
[2024-06-28] MEDS ORDERED: HYDROCORTISONE SUC 100 MG INJ ONE (17:26)
[2024-06-28] MEDS ORDERED: GLUCAGON 1 MG/VIAL ONE (17:26)
[2024-06-28 17:47] LABS: Absolute Basophils 0.1 K/uL (0-0.5); Absolute Eosinophils 0.2 K/uL (0-0.5); Absolute Lymphocytes (CBC) 1.2 K/uL (0.7-4.9); Absolute Monocytes 1.2 K/uL (0.1-1.3); Absolute Neutrophil 10.5 K/uL (1.8-8.0); Basophils % 0.5 % (0-1.3); Eosinophils % 1.7 % (0-4.4); Hematocrit 43.8 % (39.6-49.0); Hemoglobin 14.5 g/dL (13.6-17.9); Lymphocytes % 9.2 % (15.3-44.8); MCH 29.9 pg (27.0-35.0); MCHC 33.1 g/dL (32.0-36.0); MCV 90.2 fL (80-100); MPV 8.6 fL (7.6-11.3); Monocytes % 9.2 % (3.3-12.3); Neutrophils % 79.4 % (41.7-73.7); Nucleated Red Blood Cells % 0.1 % (0-0); Platelets 439 thou/uL (152-406); RBC Red Blood Cell Count 4.85 M/uL (4.33-5.43); Red Cell Distribution Width 13.7 % (12.1-15.2)
[2024-06-28 18:34] LABS: Anion Gap 8.8 mEq/L (5.0-15.0)
[2024-06-28 18:38] LABS: Potassium 3.8 mEq/L (3.5-5.1)
--- NOTE | 2024-06-28 18:42 | ER ---
Nurse's Notes [facility] Name: Surjit Stubbs Age: 49 yrs Sex: Male : 1975 Arrival Date: 06/28/2024 Time: 17:05 Bed DX3 Private MD: Diagnosis: Hypoglycemia, unspecified Presentation: 06/28 17:10 Chief complaint: EMS states: [facility] called after seeing patient take insulin ko1 and slump over in a chair. Blood sugar on EMS arrival was 27. D10 administered, came up to 50. Coronavirus screen: At this time, the client does not indicate any symptoms associated with coronavirus-19. Ebola Screen: No symptoms or risks identified at this time. 17:10 Method Of Arrival: EMS: [facility] ko1 18:15 Initial Sepsis Screen: Does the patient meet any 2 criteria? No. Patient's initial ko1 sepsis screen is negative. Does the patient have a suspected source of infection? No. Patient's initial sepsis screen is negative. Risk Assessment: Do you want to hurt yourself or someone else? Patient reports no desire to harm self or others. Onset of symptoms was June 28, 2024. Care prior to arrival: Medication(s) given: D10 IV initiated. 20 GA, in the left antecubital area, Glucose check: 50. Transition of care: [facility]. 18:15 Acuity: TOI 3 ko1 Triage Assessment: 17:10 General: Appears in no apparent distress. Behavior is fussy, uncooperative. Pain: ko1 Complains of pain in back and left leg. Historical: - Allergies: 18:22 tramadol; ko1 - Home Meds: 18:22 Unable to obtain [Active]; ko1 - PMHx: 18:22 Diabetes - IDDM; drug abuse; High Cholesterol; Myocardial infarction; neuropathy; ko1 Hypothyroidism; Seizures; - PSHx: 18:22 cardiac stent; ko1 - Immunization history:: Adult Immunizations unknown. - Infectious Disease History:: Denies. - Family history:: not pertinent. - Social history:: Smoking status: Patient reports the use of cigarette tobacco products, smokes one-half pack cigarettes per day. - Hospitalizations: : No recent hospitalization is reported. Screenin:10 [facility] ED Fall Risk Assessment (Adult) History of falling in the last 3 months, ko1 including since admission No falls in past 3 months (0 pts) Confusion or Disorientation No (0 pts) Intoxicated or Sedated No (0 pts) Impaired Gait No (0 pts) Mobility Assist Device Used No (0 pt) Altered Elimination No (0 pt) Score/Fall Risk Level 0 - 2 = Low Risk Oriented to surroundings, Maintained a safe environment, Educated pt \T\ family on fall prevention, incl call for assistance when getting out of bed, Assessed \T\ reinforced patient's understanding of fall precautions, Hourly rounding (assess needs \T\ fall precautionary measures) done. Abuse screen: Denies threats or abuse. Denies injuries from another. Nutritional screening: No deficits noted. Tuberculosis screening: No symptoms or risk factors identified. Assessment: 17:10 Neuro: No deficits noted. Cardiovascular: No deficits noted. Respiratory: No deficits ko1 noted. GI: No deficits noted. No signs and/or symptoms were reported involving the gastrointestinal system. : No deficits noted. No signs and/or symptoms were reported regarding the genitourinary system. EENT: No deficits noted. No signs and/or symptoms were reported regarding the EENT system. Derm: No deficits noted. No signs and/or symptoms reported regarding the dermatologic system. Musculoskeletal: Reports pain in left leg and back. 19:43 General: Appears in no apparent distress. slender, Behavior is cooperative. Pain: vc1 Complains of pain in right hip. Neuro: Level of Consciousness is awake, alert, obeys commands, Oriented to person, place, time, situation, Appropriate for age. Cardiovascular: Capillary refill < 3 seconds Patient's skin is warm and dry. Respiratory: Airway is patent Respiratory effort is even, unlabored, Respiratory pattern is regular, symmetrical, Breath sounds are clear bilaterally. GI: No deficits noted. No signs and/or symptoms were reported involving the gastrointestinal system. : No deficits noted. No signs and/or symptoms were reported regarding the genitourinary system. EENT: No deficits noted. No signs and/or symptoms were reported regarding the EENT system. Derm: Skin is intact, is healthy with good turgor, Skin is dry, Skin is normal, Skin temperature is warm. Musculoskeletal: Circulation, motion, and sensation intact. Range of motion: intact in all extremities. Vital Signs: 17:10 BP 143 / 76; Pulse 67; Resp 18; Temp 97; Pulse Ox 100% on R/A; ko1 17:30 BP 139 / 80; Pulse 69; Resp 17; Pulse Ox 99% ; ko1 18:00 BP 107 / 60; Pulse 67; Resp 15; Pulse Ox 97% on R/A; ko1 18:15 BP 106 / 61; Pulse 64; Resp 15; Pulse Ox 98% on R/A; ko1 19:00 BP 92 / 58; Pulse 57; Resp 16; Pulse Ox 97% ; vc1 ED Course: 17:10 Patient arrived in ED. rn 17:10 Frankie Wick MD is Attending Physician. rn 17:10 Maintain EMS IV. Dressing intact. Good blood return noted. Site clean \T\ dry. Gauge \T\ ko 1 site: 20g left AC. Flushed with 10 mL NS. 17:10 Arm band placed on right wrist. Patient placed in an exam room, on a stretcher, on ko1 pulse oximetry, Patient notified of wait time. 17:10 Patient has correct armband on for positive identification. Allergy band placed. Bed in ko1 low position. Call light in reach. Side rails up X 1. Provided Education on: labs. Pulse ox on. NIBP on. Door closed. Noise minimized. Lights dimmed. Warm blanket given. Pillow given. 17:10 Assisted with urinal. ko1 17:39 Basic Metabolic Panel Sent. ko1 17:39 CBC with Diff Sent. ko1 17:40 Initial lab(s) drawn, by ED staff, sent to lab. ko1 18:00 Lab(s) recollected, by ED staff, sent to lab. ko1 18:16 Katya Blanco, MELANIE is Primary Nurse. ko1 18:22 Triage completed. ko1 19:28 XRAY Hip RIGHT 2 view In Process Unspecified. EDMS 19:44 No provider procedures requiring assistance completed. IV discontinued, intact, vc1 bleeding controlled, No redness/swelling at site. Pressure dressing applied. Administered Medications: 17:37 Drug: D50W IVP 50 ml IVP once; (1 amp) Route: IVP; Site: left antecubital; ko1 17:52 Follow up: Response: No adverse reaction ko1 17:38 Drug: Glucagon IVP 1 mg IVP once Route: IVP; Site: left antecubital; ko1 17:52 Follow up: Response: No adverse reaction ko1 17:38 Drug: Solu-CORTEF IVP 100 mg IVP once Route: IVP; Site: left antecubital; ko1 17:52 Follow up: Response: No adverse reaction ko1 17:38 Drug: NS 0.9% IV 500 ml 500 ml IV at 1 bolus once; to be given as a bolus over 30 ko1 minutes Volume: 500 ml; Route: IV; Rate: 1 bolus; Site: left antecubital; 18:06 Follow up: Response: No adverse reaction; IV Status: Completed infusion; IV Intake: ko1 500ml Medication: 17:10 VIS not applicable for this client. ko1 Intake: 18:06 IV: 500ml; Total: 500ml. ko1 Outcome: 18:42 Discharge ordered by . rn 19:44 Discharged to home vc1 19:44 Condition: stable 19:44 Discharge instructions given to patient, Instructed on discharge instructions, follow up and referral plans. Demonstrated understanding of instructions, follow-up care, 19:54 Patient left the ED. vc1 Signatures: Dispatcher [employer] EDMS Frankie Wick MD MD rn Calcote, Vanessa, RN RN vc1 Katya Blanco RN RN ko1 Corrections: (The following items were deleted from the chart) 18:24 18:22 General: Appears in no apparent distress. Behavior is fussy, uncooperative, ko1 ko1 18:24 18:22 Pain: Complains of pain in back and left leg ko1 ko1 18:24 18:23 Arm band placed on right wrist. Patient placed in an exam room, on a stretcher, ko1 on pulse oximetry, Patient notified of wait time ko1
--- NOTE | 2024-06-28 18:42 | EDPHYS ---
Physician Documentation [facility] Name: Surjit Stubbs Age: 49 yrs Sex: Male : 1975 Arrival Date: 06/28/2024 Time: 17:05 Bed DX3 Private MD: ED Physician Frankie Wick HPI: 06/28 17:53 This 49 yrs old Male presents to ER via Unassigned with complaints of low blood sugar. rn 17:53 The patient or guardian reports hypoglycemia. Onset: The symptoms/episode rn began/occurred at an unknown time. Current symptoms: In the emergency department the patient's symptoms have improved. The patient has experienced similar episodes in the past. EMS called out for decreased responsiveness, concern for low blood sugar, glucose was in the 20s per EMS and they administered glucose in the IV with improvement to glucose in the 50s now. Patient denies any fever or chills. Reports chronic back and left leg pain. Reports takes long-acting insulin at night but takes Humalog during the day. No abdominal pain. No vomiting. Took his insulin and ate lunch. Patient reports this happens often. Historical: - Allergies: 18:22 tramadol; ko1 - Home Meds: 18:22 Unable to obtain [Active]; ko1 - PMHx: 18:22 Diabetes - IDDM; drug abuse; High Cholesterol; Myocardial infarction; neuropathy; ko1 Hypothyroidism; Seizures; - PSHx: 18:22 cardiac stent; ko1 - Immunization history:: Adult Immunizations unknown. - Infectious Disease History:: Denies. - Family history:: not pertinent. - Social history:: Smoking status: Patient reports the use of cigarette tobacco products, smokes one-half pack cigarettes per day. - Hospitalizations: : No recent hospitalization is reported. ROS: 17:53 Constitutional: Negative for fever, chills, and weight loss, Cardiovascular: Negative rn for chest pain, palpitations, and edema, Respiratory: Negative for shortness of breath, cough, wheezing, and pleuritic chest pain, Abdomen/GI: Negative for abdominal pain, nausea, vomiting, diarrhea, and constipation, Back: Positive for chronic back pain, no new symptoms MS/Extremity: Chronic left lower extremity pain from previous injury and surgery Neuro: Negative for headache, weakness, numbness, tingling, and seizure, Exam: 17:53 Constitutional: Disheveled patient, very rude and not cooperating with 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 ENT: Dry mucous membranes Cardiovascular: Regular rate and rhythm. No pulse deficits. Respiratory: No increased work of breathing, no retractions or nasal flaring. Abdomen/GI: Soft, non-tender MS/ Extremity: Pulses equal, no cyanosis. Neurovascular intact. Full, normal range of motion. Equal circumference. Neuro: Awake and alert, GCS 15, oriented to person, place, time, and situation. Cranial nerves II-XII grossly intact. Motor strength 5/5 in all extremities. Sensory grossly intact. Vital Signs: 17:10 BP 143 / 76; Pulse 67; Resp 18; Temp 97; Pulse Ox 100% on R/A; ko1 17:30 BP 139 / 80; Pulse 69; Resp 17; Pulse Ox 99% ; ko1 18:00 BP 107 / 60; Pulse 67; Resp 15; Pulse Ox 97% on R/A; ko1 18:15 BP 106 / 61; Pulse 64; Resp 15; Pulse Ox 98% on R/A; ko1 19:00 BP 92 / 58; Pulse 57; Resp 16; Pulse Ox 97% ; vc1 MDM: 17:10 Medical Screening Exam initiated rn 18:41 Differential diagnosis: hypoglycemic episode. 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 Counseling: I had a detailed discussion with the patient and/or guardian regarding the historical points, exam findings, and any diagnostic results supporting the discharge/admit diagnosis, lab results, the need for outpatient follow up, to return to the emergency department if symptoms worsen or persist or if there are any questions or concerns that arise at home. Response to treatment: the patient's symptoms have markedly improved after treatment, and as a result, I will discharge patient. Special discussion: I discussed with the patient/guardian in detail that at this point there is no indication for admission to the hospital. It is understood, however, that if the symptoms persist or worsen the patient needs to return immediately for re-evaluation. ED course: Glucose above 200, stable, patient resting without complaints. Will discharge home with return precautions. Will hold nighttime insulin.. 19:12 ED course: Upon discharge patient states his right hip is now hurting. He claims to rn have fallen but EMS reported no fall or trauma. Patient is ambulatory. Will obtain x-ray to rule out any injury.. 06/28 17:12 Order name: CBC with Diff; Complete Time: 17:52 rn 06/28 17:12 Order name: Basic Metabolic Panel; Complete Time: 18:41 rn 06/28 17:28 Order name: Glucose, Ancillary Testing; Complete Time: 17:52 EDMS 06/28 18:17 Order name: Glucose, Ancillary Testing; Complete Time: 18:31 EDMS 06/28 19:11 Order name: XRAY Hip RIGHT 2 view; Complete Time: 19:42 rn 06/28 17:12 Order name: IV Start; Complete Time: 17:24 rn 06/28 17:12 Order name: Glucose Level; Complete Time: 17:23 rn 06/28 17:12 Order name: Cardiac monitoring; Complete Time: 17:24 rn 06/28 17:48 Order name: Labs - recollect needed: please recollect green top; Complete Time: 18:03 em1 Administered Medications: 17:37 Drug: D50W IVP 50 ml IVP once; (1 amp) Route: IVP; Site: left antecubital; ko1 17:52 Follow up: Response: No adverse reaction ko1 17:38 Drug: Glucagon IVP 1 mg IVP once Route: IVP; Site: left antecubital; ko1 17:52 Follow up: Response: No adverse reaction ko1 17:38 Drug: Solu-CORTEF IVP 100 mg IVP once Route: IVP; Site: left antecubital; ko1 17:52 Follow up: Response: No adverse reaction ko1 17:38 Drug: NS 0.9% IV 500 ml 500 ml IV at 1 bolus once; to be given as a bolus over 30 ko1 minutes Volume: 500 ml; Route: IV; Rate: 1 bolus; Site: left antecubital; 18:06 Follow up: Response: No adverse reaction; IV Status: Completed infusion; IV Intake: ko1 500ml Disposition Summary: 06/28/24 18:42 Discharge Ordered Notes: Location: Home rn Problem: new rn Symptoms: have improved rn Condition: Stable rn Diagnosis - Hypoglycemia, unspecified rn Followup: rn - With: Private Physician - When: As needed - Reason: Recheck today's complaints, Re-evaluation by your physician Discharge Instructions: - Discharge Summary Sheet rn - Hypoglycemia rn - Blood Glucose Monitoring, Adult rn Forms: - Medication Reconciliation Form rn - Antibiotic engineering patternmaker - Prescription Opioid Use rn - Patient Portal Instructions rn - Leadership Thank You Letter rn Signatures: Dispatcher [employer] EDMS Frankie Wick MD MD rn Neto Yeboah1 Katya Blanco, RN RN ko1 Corrections: (The following items were deleted from the chart) 17:12 17:12 CBC+H.LAB.BRZ ordered. EDMS EDMS 17:12 17:12 BASIC METABOLIC PANEL+C.LAB.BRZ ordered. EDMS EDMS 19:11 19:11 Hip Right 2 View+RAD.RAD.BRZ ordered. EDMS EDMS
--- NOTE | 2024-06-28 19:38 | RAD REPORT ---
EXAMINATION: Hip Right 2 View CLINICAL INDICATION: Male, 49 years old. PAIN RIGHT COMPARISON: 03/28/22 FINDINGS: No acute fracture. Right hip arthroplasty. No malalignment/dislocation. No significant focal degenerative change. Other: n/a IMPRESSION: No acute osseous abnormality. Intact right hip arthroplasty.
[2024-06-29 08:10] VITALS: TEMP 97
[2024-06-29 08:15] VITALS: BP 92/58; O2SAT 97
== END 2024-06-28 19:54 | disposition home or self-care (01) ==
LOC: ER 17:05
DX: E11.649 Type 2 diabetes mellitus with hypoglycemia without coma (principal); Z79.4 Long term (current) use of insulin; F17.210 Nicotine dependence, cigarettes, uncomplicated; Z95.818 Presence of other cardiac implants and grafts
CPT/HCPCS: 85025; 80048; 36415; 82947 ×2; 73502; 96375; 96374; 99284; J1610; J1720; J7040

== ENCOUNTER 2024-08-22 01:09 | Emergency (ER) | payer OTHER ==
[2024-08-22 01:41] LABS: Absolute Basophils 0.1 K/uL (0-0.5); Absolute Eosinophils 0.3 K/uL (0-0.5); Absolute Lymphocytes (CBC) 2.5 K/uL (0.7-4.9); Absolute Neutrophil 5.9 K/uL (1.8-8.0); Eosinophils % 3.5 % (0-4.4); Hematocrit 41.5 % (39.6-49.0); Hemoglobin 14.1 g/dL (13.6-17.9); Lymphocytes % 25.4 % (15.3-44.8); MCH 30.8 pg (27.0-35.0); MCHC 33.8 g/dL (32.0-36.0); MPV 8.1 fL (7.6-11.3); Monocytes % 9.8 % (3.3-12.3); Neutrophils % 60.3 % (41.7-73.7); Platelets 475 thou/uL (152-406); RBC Red Blood Cell Count 4.56 M/uL (4.33-5.43); Red Cell Distribution Width 14.7 % (12.1-15.2)
[2024-08-22 02:09] LABS: ALT/SGPT 31 U/L (16-61); AST/SGOT 37 U/L (15-37); Albumin 3.5 g/dL (3.4-5.0); Alkaline Phosphatase 78 U/L (45-117); Anion Gap 8.6 mEq/L (5.0-15.0); BUN Blood Urea Nitrogen 9 mg/dL (7-18); Bicarbonate 27 mEq/L (21-32); Bilirubin Total 0.3 mg/dL (0.2-1.0); Globulin 3.5 g/dL (2.3-3.5); Glomerular Filtration Rate 87 ml/min (=/>90); Magnesium 2.2 mg/dL (1.6-2.4); Potassium 3.6 mEq/L (3.5-5.1); Sodium Level 141 mEq/L (136-145); Troponin High Sensitivity 4.5 pg/mL (<58.9)
[2024-08-22] MEDS ORDERED: HYDROCORTISONE SUC 100 MG INJ ONE (02:09)
[2024-08-22 02:11] LABS: Bilirubin Direct < 0.2 mg/dL (0-0.2); Bilirubin Indirect, Calculated 0.1 mg/dL (0.2-0.8); Glucose Level 33 mg/dL (74-106)
[2024-08-22] MEDS ORDERED: DIPHENOX/ATROP SULF 1 TAB PO ONE (02:17)
--- NOTE | 2024-08-22 04:13 | EDPHYS ---
Physician Documentation [facility] Name: Surjit Stubbs Age: 49 yrs Sex: Male : 1975 Arrival Date: 08/22/2024 Time: 01:09 Bed 5 Private MD: ED Physician Jame Vaughan HPI: 08/22 01:20 This 49 yrs old Male presents to ER via EMS with complaints of Low Blood Sugar. cp 01:20 The patient or guardian reports hypoglycemia, that was potentially precipitated by cp unknown, Treatment prior to arrival includes: EMS no treatment as unable to gain IV access. Unable to obtain HPI due to altered mental status. Historical: - Allergies: : tramadol; vc1 - PMHx: :22 Diabetes - IDDM; drug abuse; High Cholesterol; Hypothyroidism; Myocardial infarction; vc1 neuropathy; Seizures; - PSHx: : cardiac stent; vc1 - Immunization history:: Client reports receiving the 2nd dose of the Covid vaccine, Flu vaccine is not up to date. - Infectious Disease History:: Denies. - Social history:: Smoking status: Patient denies any tobacco usage or history of. ROS: 01:25 Constitutional: Negative for fever, cp 01:25 Neuro: Positive for altered mental status, cp 01:25 Unable to obtain ROS due to altered mental status, Exam: 01:30 Constitutional: The patient appears in no acute distress, alert, awake, cp non-diaphoretic, non-toxic, well developed, well nourished, unkempt, 01:30 Head/Face: Normocephalic, atraumatic. cp 01:30 Eyes: Periorbital structures: appear normal, Pupils: equal, round, and reactive to light and accomodation, Sclera: no appreciated abnormality, Lids and lashes: appear normal, bilaterally, 01:30 ENT: External ear(s): are unremarkable, Mouth: Lips: moist, Oral mucosa: moist, 01:30 Chest/axilla: Inspection: normal, 01:30 Cardiovascular: Rate: normal, Rhythm: regular, 01:30 Respiratory: the patient does not display signs of respiratory distress, Respirations: normal, no use of accessory muscles, no retractions, labored breathing, is not present, Breath sounds: are clear throughout, no decreased breath sounds, no stridor, no wheezing, 01:30 Abdomen/GI: Inspection: abdomen appears normal, Palpation: abdomen is soft and non-tender, in all quadrants, 01:30 Neuro: Orientation: Not oriented to person, place, situation, Mentation: confused, 02:48 ECG was reviewed by the Attending Physician. Vital Signs: 01:17 BP 174 / 97; Pulse 80; Resp 15; Temp 97.6; Pulse Ox 100% ; Weight 63.5 kg; Height 5 ft. vc1 9 in. ; 05:10 BP 154 / 89; Pulse 71; Resp 16 S; Pulse Ox 100% on R/A; lg3 01:17 Body Mass Index 20.67 (63.50 kg, 175.26 cm) vc1 Gómez Coma Score: 01:14 Eye Response: spontaneous(4). Motor Response: none(1). Verbal Response: none(1). Total: dd2 6. 01:30 Eye Response: spontaneous(4). Motor Response: obeys commands(6). Verbal Response: dd2 oriented(5). Total: 15. MDM: 01:18 Medical Screening Exam initiated zarina 02:00 Differential diagnosis: DKA, hyperglycemia, hypoglycemic episode, sepsis, trauma. 04:13 Data reviewed: vital signs, nurses notes, lab test result(s), EKG. 04:15 Consideration of Admission/Observation Escalation of care including admission/observation considered. 04:15 I considered the following discharge prescriptions or medication management in the emergency department Medications were administered in the Emergency Department. See MAR. Independent interpretation of the following test(s) in the Emergency Department EKG: See my EKG interpretation above. Historians other than the Patient: EMS: gives initial HPI. Care significantly affected by the following chronic conditions: Diabetes. Counseling: I had a detailed discussion with the patient and/or guardian regarding the historical points, exam findings, and any diagnostic results supporting the discharge/admit diagnosis, lab results, to return to the emergency department if symptoms worsen or persist or if there are any questions or concerns that arise at home. Response to treatment: the patient's symptoms have markedly improved after treatment, and as a result, I will discharge patient. 08/22 01:16 Order name: Basic Metabolic Panel; Complete Time: 02:14 08/22 02:14 Interpretation: Normal except: CL 109; GLUC 33; GFR 87. 08/22 01:16 Order name: CBC with Diff; Complete Time: 02:11 cp 08/22 02:11 Interpretation: Normal except: PLT 475. 08/22 01:16 Order name: LFT's; Complete Time: 02:14 cp 08/22 02:14 Interpretation: Normal except: IBILI, CALC 0.1; A/G 1.0. 08/22 01:16 Order name: Magnesium; Complete Time: 02:14 cp 08/22 02:48 Interpretation: Reviewed. 08/22 01:16 Order name: Troponin HS; Complete Time: 02:14 cp 08/22 02:47 Interpretation: Reviewed. 08/22 01:16 Order name: ETOH Level; Complete Time: 02:11 cp 08/22 01:16 Order name: glucometer results - FOR PT WITH NO ID; Complete Time: 02:11 vc1 08/22 02:27 Order name: Glucose, Ancillary Testing; Complete Time: 02:47 EDMS 08/22 02:47 Interpretation: Reviewed. 08/22 04:04 Order name: Glucose, Ancillary Testing; Complete Time: 04:13 EDMS 08/22 04:15 Interpretation: Reviewed. 08/22 01:16 Order name: XRAY Chest (1 view) 08/22 01:16 Order name: EKG; Complete Time: 01:19 08/22 01:16 Order name: Cardiac monitoring; Complete Time: 02:39 08/22 01:16 Order name: EKG - Nurse/Tech; Complete Time: 02:39 08/22 01:16 Order name: IV Saline Lock; Complete Time: 01:27 08/22 01:16 Order name: Labs collected and sent; Complete Time: 02:39 08/22 01:16 Order name: O2 Per Protocol; Complete Time: 01:27 08/22 01:16 Order name: O2 Sat Monitoring; Complete Time: 01:27 08/22 02:14 Order name: Accucheck Blood Glucose; Complete Time: 02:19 cp EC:48 Rate is 58 beats/min. Rhythm is regular. MS interval is normal. QRS interval is normal. cp QT interval is normal. Interpreted by me. Reviewed by me. Administered Medications: 01:16 Drug: D50W IVP 50 ml IVP once; (1 amp) Route: IVP; Site: right forearm; vc1 01:31 Follow up: Response: No adverse reaction dd2 02:21 Follow up: Response: No adverse reaction; Blood sugar is elevated lg3 01:17 Drug: D10 in Water IVP 250 ml IVP once Route: IVP; Site: right forearm; vc1 02:21 Follow up: Response: No adverse reaction lg3 02:13 Drug: Solu-CORTEF IVP 50 mg IVP once Route: IVP; Site: right forearm; dd2 02:21 Follow up: Response: No adverse reaction lg3 02:18 CANCELLED (Physician Discretion): ns 0.9% 1000 ml IV at 1000 ml once; to be given as a cp bolus over 60 minutes 02:20 Not Given (Physician Discretion): glucagon1 mg IVP once; if blood glucose less than 80 lg3 02:20 CANCELLED (Physician Discretion): diphenoxylate-atropine1 tabs PO once cp 02:20 Drug: Diphenoxylate-Atropine PO 2 tabs PO once Route: PO; lg3 05:11 Follow up: Response: No adverse reaction lg3 Disposition: 08/23 00:49 Chart complete. cp Disposition Summary: 08/22/24 04:13 Discharge Ordered Notes: Location: Home cp Problem: new cp Symptoms: have improved cp Condition: Stable cp Diagnosis - Hypoglycemia, unspecified cp - Diarrhea, unspecified cp Followup: cp - With: Private Physician - When: 1 - 2 days - Reason: Recheck today's complaints Discharge Instructions: - Discharge Summary Sheet cp - Hypoglycemia cp - Blood Glucose Monitoring, Adult cp - Basic Metabolic Panel cp - Preventing Hypoglycemia cp Forms: - Medication Reconciliation Form cp - Antibiotic Education cp - Prescription Opioid Use cp - Patient Portal Instructions cp - Leadership Thank You Letter cp Addendum: 08/24/2024 08:57 Co-signature as Attending Physician, Jame Vaughan MD I agree with the assessment and c nolasco plan of care. Signatures: Dispatcher [employer] Jame Pace MD MD cha Page, Corey, PA PA cp Able, Lacie RN RN lg3 Terri Saini RN RN vc1 GARDENIA DESHPANDE RN RN dd2 Corrections: (The following items were deleted from the chart) 08/22 01:19 01:19 GLUCATNOID ordered. EDMS EDMS 02:18 02:18 NS 0.9% IV 1000 ml IV at 1000 ml once; to be given as a bolus over 60 minutes cp ordered. cp 02:20 02:18 Diphenoxylate-Atropine PO 1 tabs PO once ordered. cp cp
--- NOTE | 2024-08-22 04:13 | ER ---
Nurse's Notes [facility] Name: Surjit Stubbs Age: 49 yrs Sex: Male : 1975 Arrival Date: 08/22/2024 Time: 01:09 Bed 5 Private MD: Diagnosis: Hypoglycemia, unspecified;Diarrhea, unspecified Presentation: 08/22 01:17 Chief complaint: EMS states: BGL of 27 and found unresponsive "refused oral glucose". vc1 Coronavirus screen: Client denies travel out of the [place] in the last 14 days. At this time, the client does not indicate any symptoms associated with coronavirus-19. Ebola Screen: Patient negative for fever greater than or equal to 101.5 degrees Fahrenheit, and additional compatible Ebola Virus Disease symptoms Patient denies exposure to infectious person. Patient denies travel to an Ebola-affected area in the 21 days before illness onset. No symptoms or risks identified at this time. Initial Sepsis Screen: Does the patient meet any 2 criteria? No. Patient's initial sepsis screen is negative. Does the patient have a suspected source of infection? No. Patient's initial sepsis screen is negative. Risk Assessment: Do you want to hurt yourself or someone else? Patient reports no desire to harm self or others. Onset of symptoms was August 22, 2024. 01:17 Method Of Arrival: EMS: [facility] vc1 01:17 Acuity: TOI 2 vc1 Triage Assessment: 01:09 General: Appears distressed, unkempt, Behavior is unresponsive. Pain: Unable to use vc1 pain scale. Patient is unresponsive. EENT: No deficits noted. No signs and/or symptoms were reported regarding the EENT system. Neuro: Level of Consciousness is unresponsive. Cardiovascular: Heart tones S1 S2 present Capillary refill < 3 seconds. Respiratory: Airway is patent Respiratory effort is even, unlabored, Respiratory pattern is regular, symmetrical, Breath sounds are clear bilaterally. GI: No deficits noted. No signs and/or symptoms were reported involving the gastrointestinal system. : No deficits noted. No signs and/or symptoms were reported regarding the genitourinary system. Derm: Skin is intact, is healthy with good turgor, Skin is dry, Skin is normal, Skin temperature is cool. Musculoskeletal: Circulation, motion, and sensation intact. Historical: - Allergies: : tramadol; vc1 - PMHx: 01:22 Diabetes - IDDM; drug abuse; High Cholesterol; Hypothyroidism; Myocardial infarction; vc1 neuropathy; Seizures; - PSHx: 01: cardiac stent; vc1 - Immunization history:: Client reports receiving the 2nd dose of the Covid vaccine, Flu vaccine is not up to date. - Infectious Disease History:: Denies. - Social history:: Smoking status: Patient denies any tobacco usage or history of. Screenin:03 Abuse screen: Denies threats or abuse. Nutritional screening: No deficits noted. vc1 Tuberculosis screening: No symptoms or risk factors identified. 01:03 [facility] ED Fall Risk Assessment (Adult) History of falling in the last 3 months, vc1 including since admission No falls in past 3 months (0 pts) Confusion or Disorientation Yes (5 pts) Intoxicated or Sedated No (0 pts) Impaired Gait Yes (1 pt) Mobility Assist Device Used No (0 pt) Altered Elimination No (0 pt) Score/Fall Risk Level 3 or more points = High Risk Oriented to surroundings, Maintained a safe environment, Educated pt \\T\\ family on fall prevention, incl call for assistance when getting out of bed. Assessment: 01:14 General: Appears distressed, unkempt, Behavior is unresponsive. Pain: Unable to use dd2 pain scale. Does not appear to understand pain scale. Patient is unresponsive. Neuro: Level of Consciousness is awake, alert, unresponsive, Oriented to none PT UNRESPONSIVE . Cardiovascular: Heart tones S1 S2 present JVD is absent Patient's skin is warm and dry. Respiratory: Airway is patent Respiratory effort is even, unlabored, Respiratory pattern is regular, symmetrical, Breath sounds are clear bilaterally. GI: Abdomen is flat, non-distended, Abd is soft and non tender X 4 quads. : No deficits noted. No signs and/or symptoms were reported regarding the genitourinary system. EENT: No deficits noted. No signs and/or symptoms were reported regarding the EENT system. Derm: Skin is intact, Skin is dry, Skin is normal, Skin temperature is cool. Musculoskeletal: Circulation, motion, and sensation intact. Range of motion: intact in all extremities. 01:28 Reassessment: Patient is alert, oriented x 3, equal unlabored respirations, skin dd2 warm/dry/pink. Patient states symptoms have improved. Neuro: Level of Consciousness is awake, alert, obeys commands, Oriented to person, place, time, situation, Appropriate for age. 05:10 Reassessment: Patient appears in no apparent distress at this time. Patient and/or lg3 family updated on plan of care and expected duration. Pain level reassessed. Patient is alert, oriented x 3, equal unlabored respirations, skin warm/dry/pink. Patient states feeling better. Patient states symptoms have improved. Vital Signs: 01:17 BP 174 / 97; Pulse 80; Resp 15; Temp 97.6; Pulse Ox 100% ; Weight 63.5 kg; Height 5 ft. vc1 9 in. ; 05:10 BP 154 / 89; Pulse 71; Resp 16 S; Pulse Ox 100% on R/A; lg3 01:17 Body Mass Index 20.67 (63.50 kg, 175.26 cm) vc1 Gómez Coma Score: 01:14 Eye Response: spontaneous(4). Motor Response: none(1). Verbal Response: none(1). Total: dd2 6. 01:30 Eye Response: spontaneous(4). Motor Response: obeys commands(6). Verbal Response: dd2 oriented(5). Total: 15. ED Course: 01:11 Patient arrived in ED. rv1 01:14 Jame Oropeza PA is PHCP. cp 01:14 Jame Vaughan MD is Attending Physician. cp 01:14 No provider procedures requiring assistance completed. Patient maintains SpO2 dd2 saturation greater than 95% on room air. 01:17 Inserted saline lock: 20 gauge in right forearm, using aseptic technique. Blood vc1 collected. Flushed with 10 mL NS. 01:20 Initial lab(s) drawn, by ED staff, sent to lab. dd2 01:22 Triage completed. vc1 01:26 Arm band placed on left wrist. vc1 01:27 Terri Saini, MELANIE is Primary Nurse. vc1 01:27 Patient has correct armband on for positive identification. Bed in low position. vc1 Provided Education on: plan of care. 01:46 XRAY Chest (1 view) In Process Unspecified. EDMS 02:39 EKG done, by ED staff, reviewed by Jame GONZALEZ. dd2 05:11 IV discontinued, intact, bleeding controlled, No redness/swelling at site. Pressure lg3 dressing applied. Administered Medications: 01:16 Drug: D50W IVP 50 ml IVP once; (1 amp) Route: IVP; Site: right forearm; vc1 01:31 Follow up: Response: No adverse reaction dd2 02:21 Follow up: Response: No adverse reaction; Blood sugar is elevated lg3 01:17 Drug: D10 in Water IVP 250 ml IVP once Route: IVP; Site: right forearm; vc1 02:21 Follow up: Response: No adverse reaction lg3 02:13 Drug: Solu-CORTEF IVP 50 mg IVP once Route: IVP; Site: right forearm; dd2 02:21 Follow up: Response: No adverse reaction lg3 02:18 CANCELLED (Physician Discretion): ns 0.9% 1000 ml IV at 1000 ml once; to be given as a cp bolus over 60 minutes 02:20 Not Given (Physician Discretion): glucagon1 mg IVP once; if blood glucose less than 80 lg3 02:20 CANCELLED (Physician Discretion): diphenoxylate-atropine1 tabs PO once cp 02:20 Drug: Diphenoxylate-Atropine PO 2 tabs PO once Route: PO; lg3 05:11 Follow up: Response: No adverse reaction lg3 Medication: 01:26 VIS not applicable for this client. vc1 Outcome: 04:13 Discharge ordered by . cp 05:11 Discharged to home ambulatory, lg3 05:11 Condition: stable 05:11 Discharge instructions given to patient, Instructed on discharge instructions, follow up and referral plans. Demonstrated understanding of instructions, follow-up care, 05:12 Patient left the ED. lg3 06:13 Patient left the ED. lg3 Signatures: Dispatcher [employer] EDMS Jame Oropeza PA PA cp Able, Lacie RN RN lg3 Terri Saini RN RN vc1 Monae Pacheco rv1 GARDENIA DESHPANDE RN RN dd2
[2024-08-22 05:25] VITALS: TEMP 97.6; O2SAT 100
--- NOTE | 2024-08-22 05:30 | RAD REPORT ---
EXAM: XR Chest, 1 View CLINICAL HISTORY: The patient is 49 years old and is Male; hypoglycemia TECHNIQUE: Frontal view of the chest. COMPARISON: XR Chest dated December 03 2022 FINDINGS: LUNGS: Unremarkable. No consolidation. PLEURAL SPACE: Unremarkable. No pneumothorax. HEART: Unremarkable. No cardiomegaly. MEDIASTINUM: Unremarkable. Normal mediastinal contour. BONES/JOINTS: Unremarkable. No acute fracture. UPPER ABDOMEN: Unremarkable as visualized. IMPRESSION: No acute cardiopulmonary process. Electronically signed by: Paula Stafford MD 08/22/2024 02:47 AM CDT RP Due to temporary technical issues with the [employer] reporting system, reports are being michael d by the in-house radiologist without review as a courtesy to ensure prompt reporting the interpreting radiologist is fully responsible for the content of the report. Transcribed Date/Time: 08/22/2024 5:30 AM
[2024-08-22 05:35] VITALS: BP 154/89
== END 2024-08-22 06:13 | disposition home or self-care (01) ==
LOC: ER 01:09
DX: E11.649 Type 2 diabetes mellitus with hypoglycemia without coma (principal); R19.7 Diarrhea, unspecified; Z95.818 Presence of other cardiac implants and grafts
CPT/HCPCS: 93005; 85025; 80048; 36415; 83735; 82947 ×3; 80076; 84484; 71045; 82077; J1720

== ENCOUNTER 2024-09-08 21:23 | Emergency (ER) | payer OTHER ==
[2024-09-08 21:40] LABS: Hematocrit 41.9 % (39.6-49.0)
[2024-09-08 21:49] LABS: Absolute Basophils 0.1 K/uL (0-0.5); Absolute Eosinophils 1.2 K/uL (0-0.5); Absolute Lymphocytes (CBC) 4.6 K/uL (0.7-4.9); Absolute Monocytes 0.9 K/uL (0.1-1.3); Absolute Neutrophil 4.1 K/uL (1.8-8.0); Basophils % 1.3 % (0-1.3); Eosinophils % 10.6 % (0-4.4); Hemoglobin 14.4 g/dL (13.6-17.9); Lymphocytes % 42.2 % (15.3-44.8); MCH 30.9 pg (27.0-35.0); MCHC 34.4 g/dL (32.0-36.0); MCV 89.8 fL (80-100); MPV 8.6 fL (7.6-11.3); Neutrophils % 37.9 % (41.7-73.7); Nucleated Red Blood Cells % 0.3 % (0-0); Platelets 348 thou/uL (152-406); RBC Red Blood Cell Count 4.67 M/uL (4.33-5.43)
--- NOTE | 2024-09-08 21:57 | RAD REPORT ---
EXAMINATION: ONE VIEW CHEST XR CLINICAL INDICATION: hypoglycemia, ams TECHNIQUE: Frontal chest projection is submitted. Examination is limited by patient positioning and t echnique. COMPARISON: 08/22/2024 FINDINGS: The lungs are well inflated and clear. The heart is normal in size. No displaced fractures identified . IMPRESSION: No acute intrathoracic abnormalities.
[2024-09-08 22:03] LABS: Specific Gravity < 1.005 (1.005-1.030); Sqamous Epithelial None Seen /HPF (None Seen); Urine Bacteria None Seen /HPF (<20); Urine Bilirubin NEGATIVE (Negative); Urine Blood Negative (Negative); Urine Clarity Turbid (Clear); Urine Color Colorless (Yellow); Urine Crystals Unidentified Few /HPF (None Seen); Urine Glucose NEGATIVE (Negative); Urine Ketones NEGATIVE (Negative); Urine Micro Reflex YN NO BILL MICROSCOPIC; Urine Mucus Slight /HPF (None Seen); Urine Nitrite NEGATIVE (Negative); Urine Protein NEGATIVE (Negative); Urine RBC <5 /HPF (None Seen); Urine Urobilinogen Normal (Normal); Urine WBC <5 /HPF (<5); Urine pH 6.5 (5.0-7.0)
[2024-09-08 22:10] LABS: Albumin 3.6 g/dL (3.4-5.0); Albumin/Globulin Ratio 0.9 (1.1-1.8); Anion Gap 14.2 mEq/L (5.0-15.0); Bilirubin Direct 0.2 mg/dL (0-0.2); Bilirubin Indirect, Calculated 0.4 mg/dL (0.2-0.8); Bilirubin Total 0.6 mg/dL (0.2-1.0); Globulin 3.8 g/dL (2.3-3.5); Magnesium 2.1 mg/dL (1.6-2.4); Potassium 3.2 mEq/L (3.5-5.1); Protein, Total 7.4 g/dL (6.4-8.2); Troponin High Sensitivity 4.9 pg/mL (<58.9)
--- NOTE | 2024-09-08 22:26 | RAD REPORT ---
EXAM: CT brain without contrast HISTORY: [facility] COMPARISON: 01/30/2024 TECHNIQUE: Multiple contiguous axial images were obtained and a CT of the brain without contrast. Sag ittal and coronal reformats were performed. One or more of the following dose reduction techniques were used: Automated exposure control, adjust ment of the mA and/or kV according to patient size, and/or iterative reconstruction. FINDINGS: No evidence of hydrocephalus, intracranial hemorrhage, or extra-axial fluid collection. The brain is normal in morphology. No evidence of midline shift or areas of brain edema. The calvarium is intact. Mild polypoid mucosal thickening noted in the paranasal sinuses with complet e opacification of the right maxillary antrum noted. IMPRESSION: No evidence of acute intracranial abnormality.
--- NOTE | 2024-09-09 00:53 | ER ---
Nurse's Notes [facility] Name: Surjit Stubbs Age: 49 yrs Sex: Male : 1975 Arrival Date: 09/08/2024 Time: 21:23 Bed 8 Private MD: Diagnosis: Hypoglycemia, resolved Presentation: 09/08 21:24 Chief complaint: EMS states: toned out for low BGL, confusion and diaphoresis. on lg3 arrival to scene BGL 15. IM glucagon administered. repeat BGL 43. EMS reports witnessed seizure. unknown history. BGL on arrival to ED 78. Coronavirus screen: Client denies travel out of the [place] in the last 14 days. At this time, the client does not indicate any symptoms associated with coronavirus-19. Ebola Screen: No symptoms or risks identified at this time. Initial Sepsis Screen: Does the patient meet any 2 criteria? No. Patient's initial sepsis screen is negative. Does the patient have a suspected source of infection? No. Patient's initial sepsis screen is negative. Risk Assessment: Do you want to hurt yourself or someone else? Patient reports no desire to harm self or others. Onset of symptoms is unknown. 21:24 Method Of Arrival: EMS: [facility] lg3 21:24 Acuity: TOI 2 lg3 Triage Assessment: 21:45 General: Appears in no apparent distress. unkempt, Behavior is cooperative. Pain: lg3 Denies pain. EENT: No deficits noted. No signs and/or symptoms were reported regarding the EENT system. Neuro: Li Agitation-Sedation Scale (RASS): -1 Drowsy Level of Consciousness is awake, confused, Oriented to person, place. Cardiovascular: No deficits noted. Denies chest pain, Heart tones S1 S2 present Capillary refill < 3 seconds Clubbing of nail beds is absent JVD is absent Patient's skin is warm and dry. Cardiovascular: Rhythm is sinus tachycardia. Respiratory: No deficits noted. Airway is patent Respiratory effort is even, unlabored, Respiratory pattern is regular, symmetrical. GI: No deficits noted. Abdomen is flat, non-distended. : No signs and/or symptoms were reported regarding the genitourinary system. Derm: Skin is intact, is healthy with good turgor, Skin is diaphoretic, Skin is normal, Skin temperature is cool. Musculoskeletal: No deficits noted. No signs and/or symptoms reported regarding the musculoskeletal system. Circulation, motion, and sensation intact. Range of motion: intact in all extremities. Historical: - Allergies: 21:45 tramadol; lg3 - Home Meds: 21:45 Unable to obtain [Active]; lg3 - PMHx: 21:45 Diabetes - IDDM; drug abuse; High Cholesterol; Hypothyroidism; Myocardial infarction; lg3 neuropathy; Seizures; - PSHx: 21:45 cardiac stent; lg3 - Immunization history:: Adult Immunizations unknown. - Infectious Disease History:: Denies. - Social history:: Smoking status: unknown. - Family history:: not pertinent. Screenin:48 [facility] ED Fall Risk Assessment (Adult) History of falling in the last 3 months, lg3 including since admission No falls in past 3 months (0 pts) Confusion or Disorientation Yes (5 pts) Intoxicated or Sedated No (0 pts) Impaired Gait No (0 pts) Mobility Assist Device Used No (0 pt) Altered Elimination No (0 pt) Score/Fall Risk Level 3 or more points = High Risk Oriented to surroundings, Maintained a safe environment, Educated pt \T\ family on fall prevention, incl call for assistance when getting out of bed, Assessed \T\ reinforced patient's understanding of fall precautions. Abuse screen: Denies threats or abuse. Denies injuries from another. Nutritional screening: No deficits noted. Tuberculosis screening: No symptoms or risk factors identified. Assessment: 21:48 General: see triage assessment. lg3 22:53 General: Appears in no apparent distress. comfortable, Behavior is calm, cooperative. lg3 Pain: Denies pain. Neuro: No deficits noted. Li Agitation-Sedation Scale (RASS): 0 - Alert and Calm Level of Consciousness is awake, alert, obeys commands, Oriented to person, place, time, situation. Cardiovascular: No deficits noted. Denies chest pain, shortness of breath, Capillary refill < 3 seconds Clubbing of nail beds is absent JVD is absent Patient's skin is warm and dry. Respiratory: No deficits noted. Airway is patent Respiratory effort is even, unlabored, Respiratory pattern is regular, symmetrical. GI: No deficits noted. No signs and/or symptoms were reported involving the gastrointestinal system. : No signs and/or symptoms were reported regarding the genitourinary system. EENT: No deficits noted. No signs and/or symptoms were reported regarding the EENT system. Derm: No deficits noted. No signs and/or symptoms reported regarding the dermatologic system. Skin is intact, is healthy with good turgor, Skin is dry, Skin is normal, Skin temperature is warm. Musculoskeletal: No deficits noted. No signs and/or symptoms reported regarding the musculoskeletal system. Circulation, motion, and sensation intact. Range of motion: intact in all extremities. 09/09 00:36 Reassessment: Patient appears in no apparent distress at this time. No changes from lg3 previously documented assessment. Patient and/or family updated on plan of care and expected duration. Pain level reassessed. Patient is alert, oriented x 3, equal unlabored respirations, skin warm/dry/pink. Patient states feeling better. Patient states symptoms have improved. 01:59 Reassessment: Patient appears in no apparent distress at this time. No changes from lg3 previously documented assessment. Patient and/or family updated on plan of care and expected duration. Pain level reassessed. Patient is alert, oriented x 3, equal unlabored respirations, skin warm/dry/pink. Patient denies pain at this time. Patient states feeling better. Patient states symptoms have improved. Vital Signs: 09/08 21:24 BP 153 / 93; Pulse 122; Resp 17 S; Temp 97.3(O); Pulse Ox 100% on R/A; Weight 63.5 kg lg3 (R); Height 5 ft. 8 in. (R); 22:00 BP 143 / 86; Pulse 83; Resp 16 S; Pulse Ox 96% on R/A; vc1 23:02 BP 105 / 68; Pulse 81; Resp 14; Pulse Ox 95% ; vc1 05 00:36 BP 112 / 68; Pulse 77; Resp 15 S; Pulse Ox 96% on R/A; lg3 02:00 BP 119 / 71; Pulse 74; Resp 15 S; Pulse Ox 96% on R/A; lg3 09/08 21:24 Body Mass Index 21.29 (63.50 kg, 172.72 cm) 3 ED Course: 09/08 21:24 Patient arrived in ED. vc1 21:24 Mack Goldberg MD is Attending Physician. rt 21:35 Basic Metabolic Panel Sent. vc1 21:35 CBC with Diff Sent. vc1 21:35 LFT's Sent. vc1 21:35 Magnesium Sent. vc1 21:36 Troponin HS Sent. vc1 21:36 Initial lab(s) drawn, by me, sent to lab. Inserted saline lock: 20 gauge in right vc1 forearm, using aseptic technique. Blood collected. Flushed with 10 mL NS. 21:45 Triage completed. lg3 21:45 Arm band placed on right wrist. lg3 21:48 Patient has correct armband on for positive identification. Placed in gown. Bed in low lg3 position. Call light in reach. Side rails up X2. Client placed on continuous cardiac and pulse oximetry monitoring. NIBP monitoring applied. court recording monitor on. Door closed. Noise minimized. Warm blanket given. Pillow given. 21:52 Tiara Rodriguez, RN is Primary Nurse. lg3 21:52 XRAY Chest (1 view) In Process Unspecified. EDMS 22:15 CT Head Brain wo Cont In Process Unspecified. EDMS 05 02:19 No provider procedures requiring assistance completed. IV discontinued, intact, lg3 bleeding controlled, No redness/swelling at site. Pressure dressing applied. Administered Medications: No medications were administered Medication: 09/08 21:48 VIS not applicable for this client. lg3 Outcome: 09/09 00:52 Discharge ordered by MD. rt 02:19 Discharged to Unknown lg3 02:19 Condition: stable 02:19 Discharge instructions given to patient, Instructed on discharge instructions, follow up and referral plans. Demonstrated understanding of instructions, follow-up care, 02:20 Patient left the ED. lg3 Signatures: Dispatcher [employer] EDMS Tiara Rodriguez RN RN lg3 Terri Saini RN RN vc1 Mack Goldberg MD MD rt Corrections: (The following items were deleted from the chart) 09/08 23:03 22:53 BP 143 / 86; Pulse 83bpm; Resp 16bpm; Spontaneous; Pulse Ox 96% RA; lg3 vc1
--- NOTE | 2024-09-09 00:53 | EDPHYS ---
Physician Documentation [facility] Name: Surjit Stubbs Age: 49 yrs Sex: Male : 1975 Arrival Date: 09/08/2024 Time: 21:23 Bed 8 Private MD: ED Physician Mack Goldberg HPI: 09/08 22:28 This 49 yrs old Male presents to ER via EMS with complaints of hypoglycemia. rt 22:28 Patient presents to the ED from [facility] for hypoglycemia. He was rt reportedly found to be unresponsive. EMS arrived, found the blood glucose to be 15. He had a brief seizure, did receive glucagon with improvement of his blood sugar. Is still confused, unable to provide meaningful history. Symptoms are moderate in severity, no other aggravating or alleviating factors.. Historical: - Allergies: 21:45 tramadol; lg3 - Home Meds: :45 Unable to obtain [Active]; lg3 - PMHx: 21:45 Diabetes - IDDM; drug abuse; High Cholesterol; Hypothyroidism; Myocardial infarction; lg3 neuropathy; Seizures; - PSHx: 21:45 cardiac stent; lg3 - Immunization history:: Adult Immunizations unknown. - Infectious Disease History:: Denies. - Social history:: Smoking status: unknown. - Family history:: not pertinent. ROS: 22:28 Unable to obtain ROS due to altered mental status, rt Exam: 22:28 Chest/axilla: Normal chest wall appearance and motion. Nontender with no deformity. rt No lesions are appreciated. Cardiovascular: Regular rate and rhythm with a normal S1 and S2. No gallops, murmurs, or rubs. Normal PMI, no JVD. No pulse deficits. Respiratory: Lungs have equal breath sounds bilaterally, clear to auscultation and percussion. No rales, rhonchi or wheezes noted. No increased work of breathing, no retractions or nasal flaring. Abdomen/GI: Soft, non-tender, with normal bowel sounds. No distension or tympany. No guarding or rebound. No evidence of tenderness throughout. Skin: Warm, dry with normal turgor. Normal color with no rashes, no lesions, and no evidence of cellulitis. MS/ Extremity: Pulses equal, no cyanosis. Neurovascular intact. Full, normal range of motion. 22:28 Constitutional: The patient appears Confused, unkempt 22:28 ECG was reviewed by the Attending Physician. 22:28 Neuro: Not responding appropriately to questioning, constricted pupils, moves all 4 extremities equally, Vital Signs: 21:24 BP 153 / 93; Pulse 122; Resp 17 S; Temp 97.3(O); Pulse Ox 100% on R/A; Weight 63.5 kg lg3 (R); Height 5 ft. 8 in. (R); 22:00 BP 143 / 86; Pulse 83; Resp 16 S; Pulse Ox 96% on R/A; vc1 23:02 BP 105 / 68; Pulse 81; Resp 14; Pulse Ox 95% ; vc1 09/09 00:36 BP 112 / 68; Pulse 77; Resp 15 S; Pulse Ox 96% on R/A; lg3 02:00 BP 119 / 71; Pulse 74; Resp 15 S; Pulse Ox 96% on R/A; lg3 09/08 21:24 Body Mass Index 21.29 (63.50 kg, 172.72 cm) lg3 MDM: 09/08 21:24 Medical Screening Exam initiated rt 09/09 01:43 Differential Diagnosis Hypoglycemia, due to meds, electrolyte disturbance, intracranial rt hemorrhage. Data reviewed: vital signs, nurses notes, lab test result(s), EKG, radiologic studies. Consideration of Admission/Observation Escalation of care including admission/observation considered. Patient's blood sugar normalized after glucagon, food, maintains his blood sugar, rest of workup is benign, no indications for admission at this time.. I considered the following discharge prescriptions or medication management in the emergency department Medications were administered in the Emergency Department. See MAR. Independent interpretation of the following test(s) in the Emergency Department CT Scan: My interpretation is No intracranial hemorrhage seen on interpretation of CT scan image. Care significantly affected by the following chronic conditions: Diabetes. Counseling: I had a detailed discussion with the patient and/or guardian regarding the historical points, exam findings, and any diagnostic results supporting the discharge/admit diagnosis, lab results, radiology results, the need for outpatient follow up. Response to treatment: the patient's symptoms have markedly improved after treatment. 09/08 21:27 Order name: Basic Metabolic Panel; Complete Time: 22:22 rt 09/08 21:27 Order name: CBC with Diff; Complete Time: 22:22 rt 09/08 21:27 Order name: LFT's; Complete Time: 22:22 rt 09/08 21:27 Order name: Magnesium; Complete Time: 22:22 rt 09/08 21:27 Order name: Troponin HS; Complete Time: 22: rt 09/08 21:27 Order name: UA W/ Microscopic; Complete Time: 22:22 rt 09/08 21:31 Order name: ETOH Level; Complete Time: 22:22 rt 09/09 00:45 Order name: Glucose, Ancillary Testing; Complete Time: 00:47 EDMS 09/08 21:27 Order name: XRAY Chest (1 view); Complete Time: 22:22 rt 09/08 21:31 Order name: CT Head Brain wo Cont; Complete Time: 22: rt 09/08 21:27 Order name: Cardiac monitoring; Complete Time: 21:35 rt 09/08 21:27 Order name: EKG - Nurse/Tech; Complete Time: 22:05 rt 09/08 21:27 Order name: IV Saline Lock; Complete Time: :35 rt 09/08 21:27 Order name: Labs collected and sent; Complete Time: 21:35 rt 09/08 21:27 Order name: O2 Per Protocol; Complete Time: 21:35 rt 09/08 21:27 Order name: O2 Sat Monitoring; Complete Time: 21:35 rt EC/04 22:28 Rate is 95 beats/min. Rhythm is regular, Normal Sinus Rhythm with No ectopy. QRS [place] rt is Normal. AL interval is normal. QRS interval is normal. QT interval is normal. No Q waves. T waves are Normal. No ST changes noted. Administered Medications: No medications were administered Disposition Summary: 09/09/24 00:52 Discharge Ordered Notes: Location: Home rt Problem: an ongoing problem rt Symptoms: have improved rt Condition: Stable rt Diagnosis - Hypoglycemia, resolved rt Followup: rt - With: Private Physician - When: 2 - 3 days - Reason: Discharge Instructions: - Discharge Summary Sheet rt - Hypoglycemia rt Forms: - Medication Reconciliation Form rt - Antibiotic Education rt - Prescription Opioid Use rt - Patient Portal Instructions rt - Leadership Thank You Letter rt Signatures: Dispatcher [employer] Tiara Pimentel RN RN lg3 Mack Goldberg MD MD rt Corrections: (The following items were deleted from the chart) 21:28 21:28 Chest Single View+[email or web address] ordered. EDMS EDMS
[2024-09-09 03:39] VITALS: TEMP 97.3
[2024-09-09 03:44] VITALS: O2SAT 96
[2024-09-09 03:46] VITALS: BP 119/71
--- NOTE | 2024-09-09 12:05 | EKG ---
Test Date: 2024-09-08 Test Time: 22:02:11 [employer]: GERARD MEASUREMENT RESULTS: Intervals: Rate: 95 NM: 140 QRSD: 84 QT: 370 QTc: 464 [place]: P: 62 NM: 140 QRS: 88 T: 21 INTERPRETIVE STATEMENTS: Normal sinus rhythm Normal ECG Compared to ECG 08/22/2024 02:36:48 Sinus bradycardia no longer present Fusion complex(es) no longer present Ventricular premature complex(es) no longer present ST (T wave) deviation no longer present Possible ischemia no longer present Electronically Signed On 09-09-24 12:04:17 CDT by Manav Lua
== END 2024-09-09 02:20 | disposition home or self-care (01) ==
LOC: ER 21:23
DX: E11.649 Type 2 diabetes mellitus with hypoglycemia without coma (principal); Z95.818 Presence of other cardiac implants and grafts
CPT/HCPCS: 36415; 70450; 71045; 80048; 80076; 81001; 82077; 82947; 83735; 84484; 85025; 93005; 99284